=== PATIENT | female | born 1965 | race Caucasian/White ===

== ENCOUNTER 2018-04-01 03:11 | Emergency (ER) | payer OTHER ==
--- OUTSIDE RECORDS SUMMARY | 2018-04-01 03:15 | XMS REPORT | Clinical Summary ---
:1965 Author Organization [facility] Address [address] [place] [address] Phone Care Team Providers Name Role Phone Unavailable Primary Care Provider Unavailable Allergies Active Allergy Reactions Severity Noted Date Comments Prochlorperazine Nausea Only 10/20/2017 Floxacillin Hives 12/31/2015 Prochlorperazine Maleate 10/19/2017 EPS. " Makes my skin crawl." Ofloxacin Nausea And Vomiting, Low 04/24/2014 Rash Sulfa (Sulfonamide Nausea And Vomiting, Low 04/24/2014 "RASH LOOKS LIKE A Antibiotics) Rash, Hives HUGE SPIDER BITE" Current Medications Prescription Sig. Disp. Refills Start End Status Date Date diphenhydrAMINE Take 25 mg by Active (BENADRYL) 50 MG mouth every 4 capsuleIndications: (four) hours as Pruritus of Skin needed for Itching. senna (SENOKOT) 8.6 Take 1 tablet by Active mg tablet mouth daily as needed For the first three days after chemotherapy. ondansetron (ZOFRAN) Take by mouth Active 8 MG every 8 (eight) tabletIndications: hours as needed Cancer for Nausea First Chemotherapy-Induced three days after Nausea and Vomiting, chemotherapy. Prevention of Chemotherapy-Induced Nausea and Vomiting SUMAtriptan 1 tab PO at onset 9 tablet 0 Active (IMITREX) 50 MG of headache; december 01 tablet repeat in 2 hours if needed (maximum daily [id number]). melatonin 3 mg Tab Take 3 mg by Active tablet mouth every night as needed Patient takes a half tablet as needed for sleeping. calcium Take 600 mg by Active carbonate-vitamin D3 mouth daily . 600mg (1,500mg) -1,000 unit Cap docusate sodium Take 100 mg by Active (COLACE) 100 MG mouth 2 (two) capsule times daily as needed for Constipation. omeprazole Take 1 capsule 0 Active (PRILOSEC) 20 MG (20 mg total) by 8 capsule mouth daily. acetaminophen Take 1 tablet 30 tablet 0 Active (TYLENOL) 325 MG (325 mg total) by 8 019 tablet mouth every 4 (four) hours as needed for up to 360 days. guaiFENesin 1,200 mg Take 1,200 mg by 0 Active Ta12 mouth 2 (two) 8 019 times daily as needed. benzocaine-menthol Place 1 lozenge 0 Active 15-3.6 mg Lozg inside cheek 8 every 2 (two) hours as needed. sodium chloride 1 spray by Nasal 15 mL 0 Active 0.65% (OCEAN) 0.65 % route 4 (four) 8 019 nasal spray times daily as needed. carvedilol (COREG) Take 1 tablet 60 tablet 2 Active 12.5 MG tablet (12.5 mg total) 8 018 by mouth 2 (two) times daily for 90 days. dextromethorphan-gua Take 10 mLs by 236 mL 0 Active ifenesin mouth every 4 8 018 (ROBITUSSIN-DM) (four) hours as 10-100 mg/5 mL needed for up to liquid 10 days. folic Take 1 tablet by 30 tablet 2 Active acid-multivitamins mouth daily for 8 018 (NEPHRO-FROILAN) 0.8 mg 90 days. Tab tablet sevelamer (RENVELA) Take 1 tablet 90 tablet 2 Active 800 mg tablet (800 mg total) by 8 018 mouth 3 (three) times daily with meals for 90 days. bumetanide (BUMEX) 1 Take 1 tablet (1 60 tablet 0 Active MG tablet mg total) by 8 018 mouth 2 (two) times daily for 30 days. albuterol HFA Inhale 1 puff by 1 Inhaler 0 Active (VENTOLIN HFA) 90 mouth via inhaler 8 018 mcg/actuation every 6 (six) inhaler hours as needed for Wheezing or Shortness of Breath for up to 30 days. traMADol (ULTRAM) 50 Take 2 tablets 30 tablet 0 Active mg tablet (100 mg total) by 8 018 mouth 2 (two) times daily for 10 days. Max Daily Amount: 200 mg rosuvastatin Take 10 mg by Discontinued (CRESTOR) 10 MG mouth daily. 018 tablet dexlansoprazole 60 Take 60 mg by Discontinued mg capsule mouth daily. 018 escitalopram Take 5 mg by Discontinued (LEXAPRO) 5 MG mouth daily. 018 tablet ascorbic acid Take 500 mg by Discontinued (ASCORBIC ACID WITH mouth daily. 018 ANDREAS HIPS) 500 MG tablet ondansetron Take 8 mg by Discontinued (ZOFRAN-ODT) 4 MG mouth every 8 018 disintegrating (eight) hours as tablet needed for Nausea . omeprazole Take 20 mg by Discontinued (PRILOSEC) 20 MG mouth daily. 018 capsule gabapentin Take 300 mg by Discontinued (NEURONTIN) 300 MG mouth 3 (three) 018 capsule times daily. calcium carbonate Take 1,200 mg by Discontinued (OS-CAROLINE) 600 mg mouth daily. 018 calcium (1,500 mg) Tab SUMAtriptan Take 1 tablet (50 30 tablet 0 (IMITREX) 50 MG mg total) by 8 018 tablet mouth every 2 (two) hours as needed for Headaches or Migraine (maximum 200mg/day) for up to 30 days. amoxicillin-clavulan Take 1 tablet by 20 tablet 0 ate (AUGMENTIN) mouth every 12 8 018 875-125 mg per (twelve) hours tablet for 10 days. mirtazapine Take 15 mg by Discontinued (REMERON) 15 MG mouth nightly. 018 tablet traMADol (ULTRAM) 50 Take 50 mg by Discontinued mg tablet mouth every 6 8 018 (six) hours as needed. senna-docusate Take 1 tablet by Discontinued (SENOKOT S) 8.6-50 mouth 3 (three) 018 mg per tablet times daily as needed. prochlorperazine Take 10 mg by Discontinued (COMPAZINE) 10 MG mouth every 6 8 018 tablet (six) hours as needed for Nausea. fluoride, sodium, Place 1 Discontinued 1.1 % Crea application onto 8 018 teeth twice a week . lidocaine-prilocaine Apply 1 Discontinued (EMLA) 2.5-2.5 % application 8 018 cream topically as needed (for chemotherapy access port) . loperamide (IMODIUM) Take 2 mg by Discontinued 2 mg capsule mouth as needed 018 for Diarrhea. sodium chloride Inject 5 mLs 5 mL 0 Discontinued 0.9%, NS, injection intravenously as 8 018 needed. ondansetron (ZOFRAN) Inject 2 mLs (4 20 mL 0 Discontinued 4 mg/2 mL injection mg total) 8 018 intravenously every 8 (eight) hours as needed. aluminum & magnesium Take 30 mLs by 355 mL 0 Discontinued hydroxide-simethicon mouth every 6 8 018 e (MAALOX PLUS) (six) hours as 400-400-40 mg/5 mL needed for up to suspension 10 days. benzonatate Take 1 capsule 20 capsule 0 Discontinued (TESSALON) 200 MG (200 mg total) by 8 018 capsule mouth 3 (three) times daily as needed for Cough for up to 7 days. codeine-guaifenesin Take 5 mLs by 120 mL 0 Discontinued (GUAIFENESIN AC) mouth every 4 8 018 10-100 mg/5 mL (four) hours as liquid needed for Cough for up to 10 days. Max Daily Amount: 30 mLs zolpidem (AMBIEN) 5 Take 1 tablet (5 30 tablet 0 Discontinued MG tablet mg total) by 8 018 mouth every night as needed for Insomnia for up to 30 days. Max Daily Amount: 5 mg simethicone Take 1 tablet (80 30 tablet 0 Discontinued (MYLICON) 80 MG mg total) by 8 018 chewable tablet mouth every 6 (six) hours as needed for Flatulence for up to 10 days. morphine 2 mg/mL Inject 1 mL (2 mg 0 Discontinued injection total) 8 018 intravenously every 4 (four) hours as needed. Max Daily Amount: 12 mg HYDROcodone-acetamin Take 1-2 tablets 30 tablet 0 Discontinued ophen (NORCO 5-325) by mouth every 4 8 018 5-325 mg per tablet (four) hours as needed for up to 10 days. Max Daily Amount: 12 tablets levoFLOXacin Inject 100 mLs 0 Discontinued (LEVAQUIN) IVPB 500 (500 mg total) 8 018 mg in dextrose 5% intravenously (D5W) 100 mL every other day. sodium bicarbonate Inject 150 mEq 0 Discontinued infusion (custom) intravenously 8 018 continuous. fentaNYL (SUBLIMAZE) Inject 2 mLs (100 2 mL 0 Discontinued 50 mcg/mL injection mcg total) 8 018 intravenously every hour as needed (as). Max Daily Amount: 2,400 mcg predniSONE Take 10 tablets 0 Discontinued (DELTASONE) 20 MG (200 mg total) by 8 018 tablet mouth daily for 10 days. 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 Demand ischemia ([facility]) 03/18/2018 (HFpEF) heart failure with preserved ejection fraction (HCC) 03/18/2018 Thrombocytopenia ([facility]) 03/17/2018 Acute renal failure (ARF) ([facility]) 03/16/2018 Symptomatic anemia 03/16/2018 Metabolic acidosis 03/16/2018 Troponin level elevated 03/16/2018 Community acquired bacterial pneumonia 03/16/2018 Fever 12/11/2017 Breast cancer ([facility]) 12/11/2017 Sepsis due to undetermined organism without resultant organ failure ([facility]) Headache syndrome 10/21/2017 Other neutropenia ([facility]) 10/21/2017 Resolved Problems Problem Noted Date Resolved Date Sepsis ([facility]) 10/20/2017 12/09/2017 Abnormal LFTs (liver function tests) 10/20/2017 12/09/2017 Encounters Date Type Specialty Care Team Description 03/26/2018 Orders Only General Internal Medicine 03/17/2018 - [facility] General Internal William Wren MD Metabolic acidosis 03/31/2018 Encounter Medicine Gian, (Primary Dx);Acute Holgeropher renal failureJoseph MD unspecified acute Titus, Tg renal failure type MD Renata (HCC);Thrombotic Samm, microangiopathy Aliyah Barkley MD (HCC);Other autoimmune Michelle Ram MD hemolytic anemias [place], (HCC);Malignant MD Joe neoplasm of female breast, unspecified estrogen receptor status, unspecified laterality, unspecified site of breast (HCC);REJI (acute kidney injury) (HCC);Symptomatic anemia;Thrombocytopeni a (HCC);(HFpEF) heart failure with preserved ejection fraction (HCC) 03/17/2018 Telephone Critical Care William Wren MD Nupd-sj-Poxu Call Medicine 03/16/2018 - [facility] General Internal Luis Fernando Kumar, Symptomatic anemia 03/17/2018 Encounter Medicine (Primary Andrew Pretty Dx);Generalized MD Fernie weakness;Essential hypertension;Cough;Sandi halley malignant neoplasm of breast with metastasis to other site, unspecified laterality (HCC);Acute renal failure, unspecified acute renal failure type (HCC);Dehydration;Comm unity acquired bacterial pneumonia;Troponin level elevated 12/08/2017 - [facility] General Internal Norberto Ruggiero Fever, unspecified 12/12/2017 Encounter Medicine MD Martin fever cause (Primary Andrew Pretty Dx);LeukopeniaFernie MD unspecified type;Hyponatremia;[place] static breast cancer (HCC);Sepsis due to undetermined organism without resultant organ failure (HCC) 10/20/2017 - [facility] General Internal Wai Bernal, Fever, unknown origin 10/23/2017 Encounter Medicine (Primary Dx);On Andrew Pretty antineoplastic MD Fernie chemotherapy;Other specified hypotension;Generalize d headache;Abnormal LFTs (liver function tests);Sepsis, due to unspecified organism (HCC);Headache syndrome;Other neutropenia (HCC) after 03/31/2017 Family History Medical History Relation Name Comments Cancer Father Diabetes Father Diabetes Mother Relation Name Status Comments Father Mother Social History Tobacco Use Types Packs/Day Years Used Date Former Smoker 0.5 15 Smokeless Tobacco: Never Used Alcohol Use Drinks/Week oz/Week Comments No Sex Assigned at Date Recorded Not on file Last Filed Vital Signs Vital Sign Reading Time Taken Blood Pressure 137/68 03/31/2018 2:27 PM CDT Pulse 83 03/31/2018 2:52 PM CDT Temperature 37.7 C (99.9 F) 03/31/2018 2:27 PM CDT Respiratory Rate 15 03/31/2018 2:52 PM CDT Oxygen Saturation 95% 03/31/2018 2:52 PM CDT Inhaled Oxygen Concentration - - Weight 46 kg (101 lb 6.6 oz) 03/31/2018 9:54 AM CDT Height 160 cm (5' 3") 03/18/2018 12:00 AM CDT Body Mass Index 17.96 03/31/2018 9:54 AM CDT Plan of Treatment Not on file Implants Implanted Type Area Social Media Sr Strategy Manager Device Expiration Model / Identifier Date Serial / Lot Port,Mri Powerport Isp 6fr Chronoflex W/Suture Plugs - [id number] Catheter C R BARD 05/26/2015 [id number] / Implanted: Qty: 1 on 04/28/2014 by Luly Escalante Ports/[employer] PERIPHERAL [id number] / l Line [id number] Procedures Procedure Name Priority Date/Time Associated Diagnosis Comments CRITICAL CARE Routine 03/16/2018 11:25 AM Results for this CDT procedure are in the results section. after 03/31/2017 Results Hemodialysis (03/31/2018 1:55 PM)Only the most recent of5 resultswithin the time period is included. Narrative Aman Daniel, RN 03/31/20181:55 PM Received pt short of breath. Explained hd tx plan today pt agreed verbalized understanding. Started HD tx as ordered. Lab Results Component Value Date WBC 4.1 03/31/2018 HGB 8.0 (L) 03/31/2018 HCT 26.0 (L) 03/31/2018 MCV 102.0 (H) 03/31/2018 PLT 54 (L) 03/31/2018 Chemistry Component Value Date/Time NA 133 (L) 03/31/2018 0427 K 4.6 03/31/2018 0427 CL 99 03/31/2018 0427 CO2 24 03/31/2018 0427 BUN 45 (H) 03/31/2018 0427 CREATININE 4.49 (H) 03/31/2018 042 Component Value Date/Time CALCIUM 8.1 (L) 03/31/2018 042 ALKPHOS 42 03/28/2018 024 AST 35 (H) 03/28/2018 0245 ALT 13 03/28/2018 0245 BILITOT 1.0 03/28/2018 0245 Results for RENATE GOLD ( ) as of 03/31/2018 13:55 Ref. Range 03/20/2018 12:12 Hepatitis B Surface Ag Latest Ref Range: NonreactiveNonreactive To monitor pt. CBC with platelet count + automated diff (03/31/2018 4:27 AM)Only the most recent of19 resultswithin the time period is included. Component Value Ref Range WBC 4.1 3.5 - 10.5 K/L RBC 2.55 (L) 3.93 - 5.22 M/L Hemoglobin 8.0 (L) 11.2 - 15.7 GM/DL Hematocrit 26.0 (L) 34.1 - 44.9 % MCV 102.0 (H) 79.4 - 94.8 fL MCH 31.4 25.6 - 32.2 pg MCHC 30.8 (L) 32.2 - 35.5 GM/DL RDW 18.9 (H) 11.7 - 14.4 % Platelets 54 (L) 150 - 450 K/CU MM MPV 12.9 (H) 9.4 - 12.3 fL nRBC 0 0 - 0 /100 WBC % Neutros 84 % % Lymphs 8 % % Monos 7 % % Eos 1 % % Baso 0 % # Neutros 3.45 1.56 - 6.13 K/L # Lymphs 0.33 (L) 1.18 - 3.74 K/L # Monos 0.28 0.24 - 0.36 K/L # Eos 0.03 (L) 0.04 - 0.36 K/L # Baso 0.01 0.01 - 0.08 K/L Immature Granulocytes-Relative 1 0 - 1 % Specimen Performing Laboratory Blood [facility] [address] [address] CBC with platelet count + automated diff (03/31/2018 4:27 AM)Only the most recent of19 resultswithin the time period is included. Specimen Performing Laboratory Blood Narrative The following orders were created for panel order CBC with platelet count + automated diff. Procedure Abnormality Status --------- ------ CBC with platelet count ...[[id number]]AbnormalFinal result Please view results for these tests on the individual orders. Magnesium (03/31/2018 4:27 AM)Only the most recent of12 resultswithin the time period is included. Component Value Ref Range Magnesium 1.9 1.6 - 2.6 mg/dL Specimen Performing Laboratory Blood [address] [address] Basic Metabolic Panel (03/31/2018 4:27 AM)Only the most recent of31 resultswithin the time period is included. Component Value Ref Range Sodium 133 (L) 136 - 145 meq/L Potassium 4.6 3.5 - 5.1 meq/L Chloride 99 98 - 107 meq/L CO2 24 22 - 29 meq/L BUN 45 (H) 7 - 21 mg/dL Creatinine 4.49 (H) 0.57 - 1.25 mg/dL Glucose 95 70 - 105 mg/dL Calcium 8.1 (L) 8.4 - 10.2 mg/dL EGFR 10Comment: ESTIMATED GFR IS NOT ACCURATE mL/min/1.73 sq m CREATININE CLEARANCE IN PREDICTING GLOMERULAR FILTRATION RATE. ESTIMATED GFR IS NOT APPLICABLE FOR DIALYSIS PATIENTS. Specimen Performing Laboratory Blood [address] [address] POC-Glucose meter (03/30/2018 6:39 PM)Only the most recent of4 resultswithin the time period is included. Component Value Ref Range POC-Glucose Meter 121 (H)Comment: TESTED AT [address] 70 - 110 mg/[place] [address] Specimen Performing Laboratory Blood [address] [address] PT/aPTT (03/30/2018 4:37 AM)Only the most recent of4 resultswithin the time period is included. Component Value Ref Range Protime 16.7 (H) 11.7 - 14.7 seconds INR 1.4 <=5.9 PTT 39.8 (H) 22.5 - 36.0 seconds Specimen Performing Laboratory Blood [facility] [address] [address] Narrative RECOMMENDED COUMADIN/WARFARIN INR THERAPY RANGES STANDARD DOSE: 2.0 - 3.0 Includes: PROPHYLAXIS for venous thrombosis, systemic embolization; TREATMENT for venous thrombosis and/or pulmonary embolus. HIGH RISK: Target INR is 2.5-3.5 for patients with mechanical heart valves. TRANSFUSION SERVICE REPORT - SCAN (03/29/2018 6:00 PM)Only the most recent of9 resultswithin the time period is included.Prepare Leuko-Red RBC (03/28/2018 11: 54 PM)Only the most recent of3 resultswithin the time period is included. Component Value Ref Range CROSSMATCH COMPATIBLE Unit ABO A Pos UNIT NUMBER [id number] Status TRANSFUSED Blood Bank Product RED BLOOD CELLS PRODUCT CODE [id number] Specimen Performing Laboratory Other SAFETRACE TX XR chest 1 view portable / bedside (03/28/2018 9:40 PM)Only the most recent of4 resultswithin the time period is included. Specimen Performing Laboratory GE RIS Narrative FINAL REPORT History: Shortness of breath. Comparison: 03/21/2018 Findings: A single view of the chest is submitted. There is stable prominence of the cardiac silhouette, and appearance likely exaggerated by portable technique. Central vascular congestion and bilateral interstitial and airspace opacities are centered on the perihilar lungs and suggest pulmonary edema. Small bilateral pleural effusions are present. Retrocardiac opacities may reflect a combination of atelectasis and edema but pneumonitis should be excluded clinically. There is no pneumothorax or acute bony abnormality. A right IJ CVC and left IJ chest port remain in place. Surgical clips overlie the right chest. Signed: Lorne Monge MD Report Verified Date/Time:03/28/2018 22:19:58 Reading Location: [address] Reading Room Procedure Note Interface, External Ris In - 03/28/2018 10:22 PM CDT FINAL REPORT History: Shortness of breath. Comparison: 03/21/2018 Findings: A single view of the chest is submitted. There is stable prominence of the cardiac silhouette, and appearance likely exaggerated by portable technique. Central vascular congestion and bilateral interstitial and airspace opacities are centered on the perihilar lungs and suggest pulmonary edema. Small bilateral pleural effusions are present. Retrocardiac opacities may reflect a combination of atelectasis and edema but pneumonitis should be excluded clinically. There is no pneumothorax or acute bony abnormality. A right IJ CVC and left IJ chest port remain in place. Surgical clips overlie the right chest. Signed: Lorne Monge MD Report Verified Date/Time: 03/28/2018 22:19:58 Reading Location: [address] Reading Room Lactic acid, venous, whole blood (03/28/2018 2:45 AM)Only the most recent of5 resultswithin the time period is included. Component Value Ref Range Lactate, Venous 1.1 0.5 - 2.2 mmol/L Specimen Performing Laboratory [place] [address] Narrative Effective 11/28/2015: Units/Reference Range Change New: 0.5-2.2 mmol/LPrevious: 5-20 mg/dL Comprehensive metabolic panel (03/28/2018 2:45 AM)Only the most recent of5 resultswithin the time period is included. Component Value Ref Range Protein, Total 5.9 (L) 6.0 - 8.3 gm/dL Albumin 2.5 (L) 3.5 - 5.0 g/dL Alkaline Phosphatase 42 40 - 150 U/L Total Bilirubin 1.0 0.2 - 1.2 mg/dL Sodium 135 (L) 136 - 145 meq/L Potassium 4.1 3.5 - 5.1 meq/L Chloride 102 98 - 107 meq/L CO2 26 22 - 29 meq/L BUN 24 (H) 7 - 21 mg/dL Creatinine 3.02 (H) 0.57 - 1.25 mg/dL Glucose 121 (H) 70 - 105 mg/dL Calcium 8.2 (L) 8.4 - 10.2 mg/dL AST 35 (H) 5 - 34 U/L ALT 13 6 - 55 U/L EGFR 16Comment: ESTIMATED GFR IS NOT ACCURATE mL/min/1.73 sq m CREATININE CLEARANCE IN PREDICTING GLOMERULAR FILTRATION RATE. ESTIMATED GFR IS NOT APPLICABLE FOR DIALYSIS PATIENTS. Specimen Performing Laboratory Blood [address] [address] Transfuse Leuko-Red RBC (03/27/2018 2:48 PM)Only the most recent of7 resultswithin the time period is included.Type and screen, automated (2017 12:03 PM)Only the most recent of3 resultswithin the time period is included. Component Value Ref Range ABO/RH AUTOMATED (BEAKER) A POSITIVE Ab Scrn NEGATIVE Specimen Performing Laboratory Blood [address] [address] XR shoulder complete 2 views min left (03/26/2018 5:10 PM) Specimen Performing Laboratory GE RIS Narrative FINAL REPORT TECHNIQUE: Three views of the left shoulder dated 08/15/2017 HISTORY: FX COMPARISON: None. FINDINGS: No fracture or dislocation. Bones are normal in density. No joint space narrowing. No bone erosion or soft tissue nodule seen. No radiodense foreign body or subcutaneous emphysema. Left-sided MediPort is partially visualized. IMPRESSION: No fracture or dislocation. Signed: Steve Torres MD Report Verified Date/Time:03/26/2018 17:48:06 Reading Location: [facility] Radiology Reading Room Procedure Note Interface, External Ris In - 03/26/2018 5:50 PM CDT FINAL REPORT TECHNIQUE: Three views of the left shoulder dated 08/15/2017 HISTORY: FX COMPARISON: None. FINDINGS: No fracture or dislocation. Bones are normal in density. No joint space narrowing. No bone erosion or soft tissue nodule seen. No radiodense foreign body or subcutaneous emphysema. Left-sided MediPort is partially visualized. IMPRESSION: No fracture or dislocation. Signed: Steve Torres MD Report Verified Date/Time: 03/26/2018 17:48:06 Reading Location: [facility] Radiology Reading Room 12 lead (03/26/2018 8:47 AM)Only the most recent of4 resultswithin the time period is included. Specimen Performing Laboratory [employer] MUSE Narrative Ventricular Rate 89 BPM Atrial Rate 89 BPM P-R Interval 142 ms QRS Duration 64 ms Q-T Interval 384 ms QTC Calculation(Bazett) 467 ms P Otoe 44 degrees R Otoe 17 degrees T Otoe 148 degrees Normal sinus rhythm ST & T wave abnormality, consider anterior ischemia Prolonged QT Abnormal ECG When compared with ECG of 19-MAR-2018 14:10, Nonspecific T wave abnormality, worse in Inferior leads T wave inversion now evident in Anterior leads Confirmed by MD MCCARTY JOSEPH P ([id number]) on 03/27/2018 7:24:27 AM Procedure Note Interface, External Ris In - 03/27/2018 7:24 AM CDT Ventricular Rate 89 BPM Atrial Rate 89 BPM P-R Interval 142 ms QRS Duration 64 ms Q-T Interval 384 ms QTC Calculation(Bazett) 467 ms P Otoe 44 degrees R Otoe 17 degrees T Otoe 148 degrees Normal sinus rhythm ST & T wave abnormality, consider anterior ischemia Prolonged QT Abnormal ECG When compared with ECG of 19-MAR-2018 14:10, Nonspecific T wave abnormality, worse in Inferior leads T wave inversion now evident in Anterior leads Confirmed by MD MCCARTY JOSEPH P ([id number]) on 03/27/2018 7:24:[address] abdomen/pelvis without iv contrast (03/26/2018 12:39 AM) Specimen Performing Laboratory [employer] RIS Narrative FINAL REPORT CT, ABDOMEN \\T\\ PELVIS, WITHOUT IV CONTRAST INDICATION: Anemia, unexplained, ambulatory, asymptomatic COMPARISON: CT abdomen and pelvis, 10/20/2017. TECHNIQUE: Noncontrast abdomen and pelvis CT.Coronal and sagittal reformatted images obtained. DOSE REDUCTION: Dose modulation, iterative reconstruction, and/or weight-based adjustment of the mA/kV was utilized to reduce the radiation dose to as low as reasonably achievable. FINDINGS: Lower thorax: Moderate bilateral pleural effusions with adjacent passive atelectasis of the bilateral lower lobes. Relative hypodensity of blood pool related to the myometrium is consistent with history of anemia. Trace pericardial effusion. Liver: Limited evaluation given lack of intravenous contrast material however no definite parenchymal abnormalities. Gallbladder and biliary tree: Postsurgical changes of cholecystectomy. Pancreas: No acute findings. Spleen: Spleen is enlarged measuring 13 cm in greatest craniocaudal dimension. Adrenal Glands: No acute findings. Kidneys and ureters: Crescentic hyperdense fluid collection surrounding the inferior left renal pole suggestive of perinephric hematoma, post biopsy which extends into the left paracolic gutter. No hydronephrosis or hydroureter. No nephrolithiasis. Bladder and reproductive organs: There is a Cote catheter present within the bladder with gas layering anteriorly. Post surgical changes of a hysterectomy. Stomach and Duodenum: Duodenum is somewhat distended proximally and distal decompression otherwise unremarkable. Is normal. Small and large intestine: Normal calibers. Appendix: Normal. Major vascular structures: Scattered calcifications in the normal caliber abdominal aorta. Peritoneum and retroperitoneum: Small volume simple free fluid layering dependently within the pelvis. Skeleton: Multiple new sclerotic lesions throughout the axial skeleton the largest of which is 8 mm in the T12 anterior vertebral body concerning for a sclerotic metastatic lesion. Additional findings: None. IMPRESSION: Small left perinephric hematoma status post renal biopsy. Multiple new sclerotic lesions throughout the axial skeleton the largest of which is in the T12 anterior vertebral body concerning for sclerotic metastatic lesions. Lateral bilateral pleural effusions with adjacent passive atelectasis of the bilateral lower lobes. Unchanged splenomegaly. Signed: Kellee Islas MD Report Verified Date/Time:03/26/2018 02:57:14 Reading Location: [address] Transitional Reading Room Procedure Note Interface, External Ris In - 03/26/2018 2:59 AM CDT FINAL REPORT CT, ABDOMEN \\T\\ PELVIS, WITHOUT IV CONTRAST INDICATION: Anemia, unexplained, ambulatory, asymptomatic COMPARISON: CT abdomen and pelvis, 10/20/2017. TECHNIQUE: Noncontrast abdomen and pelvis CT. Coronal and sagittal reformatted images obtained. DOSE REDUCTION: Dose modulation, iterative reconstruction, and/or weight-based adjustment of the mA/kV was utilized to reduce the radiation dose to as low as reasonably achievable. FINDINGS: Lower thorax: Moderate bilateral pleural effusions with adjacent passive atelectasis of the bilateral lower lobes. Relative hypodensity of blood pool related to the myometrium is consistent with history of anemia. Trace pericardial effusion. Liver: Limited evaluation given lack of intravenous contrast material however no definite parenchymal abnormalities. Gallbladder and biliary tree: Postsurgical changes of cholecystectomy. Pancreas: No acute findings. Spleen: Spleen is enlarged measuring 13 cm in greatest craniocaudal dimension. Adrenal Glands: No acute findings. Kidneys and ureters: Crescentic hyperdense fluid collection surrounding the inferior left renal pole suggestive of perinephric hematoma, post biopsy which extends into the left paracolic gutter. No hydronephrosis or hydroureter. No nephrolithiasis. Bladder and reproductive organs: There is a Cote catheter present within the bladder with gas layering anteriorly. Post surgical changes of a hysterectomy. Stomach and Duodenum: Duodenum is somewhat distended proximally and distal decompression otherwise unremarkable. Is normal. Small and large intestine: Normal calibers. Appendix: Normal. Major vascular structures: Scattered calcifications in the normal caliber abdominal aorta. Peritoneum and retroperitoneum: Small volume simple free fluid layering dependently within the pelvis. Skeleton: Multiple new sclerotic lesions throughout the axial skeleton the largest of which is 8 mm in the T12 anterior vertebral body concerning for a sclerotic metastatic lesion. Additional findings: None. IMPRESSION: Small left perinephric hematoma status post renal biopsy. Multiple new sclerotic lesions throughout the axial skeleton the largest of which is in the T12 anterior vertebral body concerning for sclerotic metastatic lesions. Lateral bilateral pleural effusions with adjacent passive atelectasis of the bilateral lower lobes. Unchanged splenomegaly. Signed: Kellee Islas MD Report Verified Date/Time: 03/26/2018 02:57:14 Reading Location: [address] Transitional Reading Room Peripheral Blood Smear - Hold only (03/25/2018 2:03 PM)Only the most recent of3 resultswithin the time period is included. Component Value Ref Range Peripheral Smear Save saved Specimen Performing Laboratory [address] [address] Lactate dehydrogenase (LDH) (03/25/2018 2:03 PM)Only the most recent of4 resultswithin the time period is included. Component Value Ref Range LDH 722 (H) 125 - 220 U/L Specimen Performing Laboratory Blood [address] [address] US renal biopsy (03/24/2018 1:00 PM) Specimen Performing Laboratory GE RIS Narrative FINAL REPORT HISTORY: Acute kidney injury of unknown etiology Sedation: Moderate sedation was administered. 0.5 mg of Versed and 25 mcg of fentanyl IV was used for moderate sedation monitored under my direction. Total intra-service time of sedation [id number]. The patient's vital signs were monitored throughout the procedure and recorded in the patient's medical record by the nurse. DISCUSSION: The procedure including the risks and complications were explained to the patient and the patient consented. The left kidney was localized under ultrasound. The left flank/back was prepped and draped in the usual sterile fashion and 1% lidocaine was applied to the skin and deep soft tissues. Under ultrasound guidance, a total of 3 biopsy samples were obtained utilizing an 18 gauge needle. Pathology was present during the procedure and specimens were analyzed for adequacy. Specimens were placed in formalin and were sent to pathology for analysis. Postprocedure sonogram did not demonstrate any complications. IMPRESSION: Successful ultrasound guided core random biopsy of the [place] left kidney. Signed: Eduin Thompson MD Report Verified Date/Time:03/24/2018 12:59:37 Reading Location: [address] Ultrasound Reading Room Procedure Note Interface, External Ris In - 03/24/2018 1:01 PM CDT FINAL REPORT HISTORY: Acute kidney injury of unknown etiology Sedation: Moderate sedation was administered. 0.5 mg of Versed and 25 mcg of fentanyl IV was used for moderate sedation monitored under my direction. Total intra-service time of sedation was 20 minutes. The patient's vital signs were monitored throughout the procedure and recorded in the patient's medical record by the nurse. DISCUSSION: The procedure including the risks and complications were explained to the patient and the patient consented. The left kidney was localized under ultrasound. The left flank/back was prepped and draped in the usual sterile fashion and 1% lidocaine was applied to the skin and deep soft tissues. Under ultrasound guidance, a total of 3 biopsy samples were obtained utilizing an 18 gauge needle. Pathology was present during the procedure and specimens were analyzed for adequacy. Specimens were placed in formalin and were sent to pathology for analysis. Postprocedure sonogram did not demonstrate any complications. IMPRESSION: Successful ultrasound guided core random biopsy of the [place] left kidney. Signed: Eduin Thompson MD Report Verified Date/Time: 03/24/2018 12:59:37 Reading Location: [facility] [id number] Ultrasound Reading Room Tissue Exam (03/24/2018 12:53 PM) Component Value Ref Range Case Report Surgical Pathology Report Case: [id number] Authorizing Provider:Michelle Ram MD Collected: 03/24/2018 1253 Ordering Location: [address] Received: 03/24/2018 1254 Service Pathologist: Dennsie Jo MD Specimen:Kidney, Left, Left kidney needle biopsy DIAGNOSIS KIDNEY, LEFT, NEEDLE BIOPSIES - ACUTE THROMBOTIC MICROANGIOPATHY - MODERATE INTERSTITIAL FIBROSIS AND TUBULAR ATROPHY (~40%) Signing Pathologist Direct Phone Line: [phone] COMMENT 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 One study (see reference) have reported arteriolar deposition of C4d to suggest a deficit in complement regulation. Clinical correlation is recommended. Reference: Earline ROMAN, et al. Complement Factor C4d Is a Common Denominator in Thrombotic Microangiopathy. J Am Soc Nephrol. 2015 Sep;26(9):2239-47. The results were communicated to Dr. Vital on 03/25/2018 at 10.15 am. CPT Code(s) 84529, 40013 X3, 18454, 48064 x8, 76203 CLINICAL HISTORY Left renal failure evaluation SPECIMEN SOURCE [place] left kidney biopsy GROSS DESCRIPTION The specimen is received in three parts all labeled with the patient's information. Received in formalin are three bernal-red core biopsies ranging in length from 0.3 to 1.1 cm, submitted entirely A1. Received fresh is a 1 cm bernal-red core, submitted for frozen section for immunofluorescen ce staining and received in electron microscopy consists of a 0.2 cm core submitted for electron microscopy. CG/pl MICROSCOPIC DESCRIPTION LIGHT MICROSCOPY Sections show three cores of renal parenchymal tissue composed of cortical tissue (~80%) and medullary tissue (~20%). Glomeruli: Approximately 56 glomeruli are examined, of which 5 are globally sclerosed. The glomeruli show diffuse fibrillary expansion of mesangium with wrinkled glomerular basement membranes. Mild reac tive neutrophilic infiltration is noted. The visceral epithelial cells are prominent. There is focal glomerular congestion and thrombi.No segmental necrosis, endocapillary proliferation, or crescents are noted. Tubules and interstitium: There is moderate interstitial fibrosis with tubular atrophy, involving about 40% of cortical tissue. Some tubular profiles are ectatic and show epithelial injury with reactive changes. Few tubular profiles show red blood cell casts. Vessels: Small arteries and arterioles show show fibrin thrombi and fragmented red blood cells. Branches of interlobular arteries show mild intimal sclerosis. No endothelialitis, arteritis or transmural vasculitis is seen. IMMUNOFLUORESCENCE: Direct Immunofluorescence: Histology: H&E-stained sections show 10 non-obsolescent glomeruli. Immunofluorescence findings: IgA: Negative in glomeruli, tubular casts are positive IgG: Negative in glomeruli. There is diffuse weak positive staining of the tubular epithelial cell nuclei IgM: Diffuse global, granular, peripheral capillary loop and mesangial staining 3+, weak staining in tubular basement membranes and peritubular capillaries C3: Diffuse and global, granular, peripheral capillary loop and mesangial staining, 1+. negative in tubular basement membranes. C1q:Focal weak granular, mesangial staining, negative in tubular basement membranes. Fibrinogen: Positive in thrombi Bernard:Focal segmental to global, granular, peripheral capillary loop and mesangial staining 2+ to 3+, diffuse weak positive staining of the tubular epithelial cell nuclei. Lambda: Diffuse and global, granular, peripheral capillary loop and mesangial staining 2+ to 3+, diffuse weak positive staining of the tubular epithelial cell nuclei. C4d. Diffuse positive staining in peripheral glomerular capillary loops and arterioles along with small branches of interlobular arteries. The peritubular capillaries are negative. Thick section histology: Toluidine blue-stained section reveals two open glomeruli, both glomeruli are examined ultrastructurally. Ultrastructure:Examination of the glomerular ultrastructure reveals that the glomerular basement membrane shows focal wrinkling and presence of double contours with focal subendothelial rarefaction. There is mesangial interpositioning with laying down of a new basement membrane. Endothelial cell swelling is noted. The mesangial matrix is not expanded. Subendothelial, subepithelial, and mesangial/p aramesangialelectron-dense, immune complex-type deposits are not present. There is hypertrophy of visceral epithelial cells with extensive effacement of foot processes. Specimen Performing Laboratory Tissue - Kidney, [address] [address] Phosphorus (03/22/2018 11:26 PM)Only the most recent of2 resultswithin the time period is included. Component Value Ref Range Phosphorus 6.1 (H) 2.3 - 4.7 mg/dL Specimen Performing Laboratory Blood - Central Venous Line [address] [address] Hepatic function panel (03/22/2018 4:51 PM)Only the most recent of3 resultswithin the time period is included. Component Value Ref Range Protein, Total 6.7 6.0 - 8.3 gm/dL Albumin 3.1 (L) 3.5 - 5.0 g/dL Total Bilirubin 1.6 (H) 0.2 - 1.2 mg/dL Bilirubin, Direct 0.7 (H) 0.1 - 0.5 mg/dL Alkaline Phosphatase 63 40 - 150 U/L AST 48 (H) 5 - 34 U/L ALT 24 6 - 55 U/L Specimen Performing Laboratory Blood - Central Venous Line [address] [address] Prothrombin time/INR (03/22/2018 6:28 AM)Only the most recent of3 resultswithin the time period is included. Component Value Ref Range Protime 16.2 (H) 11.7 - 14.7 seconds INR 1.3 <=5.9 Specimen Performing Laboratory Blood - Arm, [address] [address] Narrative RECOMMENDED COUMADIN/WARFARIN INR THERAPY RANGES STANDARD DOSE: 2.0 - 3.0 Includes: PROPHYLAXIS for venous thrombosis, systemic embolization; TREATMENT for venous thrombosis and/or pulmonary embolus. HIGH RISK: Target INR is 2.5-3.5 for patients with mechanical heart valves. Reticulocyte count (03/22/2018 6:28 AM)Only the most recent of2 resultswithin the time period is included. Component Value Ref Range % Retic 13.4 (H) 0.5 - 1.7 % Specimen Performing Laboratory Blood - Arm, [address] [address] Haptoglobin (03/22/2018 6:28 AM)Only the most recent of3 resultswithin the time period is included. Component Value Ref Range Haptoglobin <8 (L) 14 - 258 mg/dL Specimen Performing Laboratory Blood - Arm, Left [facility] [address] CBC (Hemogram only) (03/21/2018 3:21 AM)Only the most recent of5 resultswithin the time period is included. Component Value Ref Range WBC 7.6 3.5 - 10.5 K/L RBC 3.13 (L) 3.93 - 5.22 M/L Hemoglobin 10.1 (L) 11.2 - 15.7 GM/DL Hematocrit 32.1 (L) 34.1 - 44.9 % MCV 102.6 (H) 79.4 - 94.8 fL MCH 32.3 (H) 25.6 - 32.2 pg MCHC 31.5 (L) 32.2 - 35.5 GM/DL RDW 24.0 (H) 11.7 - 14.4 % Platelets 68 (L) 150 - 450 K/CU MM MPV 14.4 (H) 9.4 - 12.3 fL nRBC 1 (H) 0 - 0 /100 WBC Specimen Performing Laboratory Blood - Arm, Right [address] [address] Hepatitis B Panel (03/20/2018 12:12 PM) Component Value Ref Range Hep B Core Total Ab Nonreactive Nonreactive Hep B S Ab 133.0 (H) <8.0 mIU/mL Comment: Testing performed at [facility]. See attach result for further interpretation. hepatitis B Surface Ag Nonreactive Nonreactive Specimen Performing Laboratory Blood - Central Venous Line [address] [address] Hepatitis C antibody (03/20/2018 12:12 PM) Component Value Ref Range Hepatitis C Ab Nonreactive Nonreactive Specimen Performing Laboratory Blood - Central Venous Line [address] [address] TSH/Free T4 If Indicated (03/20/2018 5:39 AM) Component Value Ref Range TSH 7.12 (H) 0.35 - 4.94 uIU/mL Specimen Performing Laboratory Blood [address] [address] T4, free (03/20/2018 5:39 AM) Component Value Ref Range Free T4 0.67 (L) 0.70 - 1.48 ng/dL Specimen Performing Laboratory Blood [address] [address] Prepare plasma (03/19/2018 11:54 PM)Only the most recent of2 resultswithin the time period is included. Component Value Ref Range Unit ABO A UNIT NUMBER [id number] Status TRANSFUSED Blood Bank Product FFP PRODUCT CODE [id number] Unit ABO A UNIT NUMBER [id number] Status TRANSFUSED Blood Bank Product FFP PRODUCT CODE [id number] Specimen Performing Laboratory Blood SAFETRACE TX PTH, intact (03/19/2018 5:29 AM) Component Value Ref Range PTH 690.0 (H) 8.5 - 72.5 pg/mL Specimen Performing Laboratory Blood - Central Venous Line [address] [address] Vancomycin level, random (03/19/2018 5:29 AM)Only the most recent of2 resultswithin the time period is included. Component Value Ref Range Vancomycin Rm 14.4 ug/mL Specimen Performing Laboratory Blood - Central Venous Line [address] [address] Narrative Reference Range: No Normals Direct AHG (BASIL)/Direct Rose (03/18/2018 3:23 PM) Component Value Ref Range Direct AHG-IGG NEGATIVE Direct AHG-C3B, C3D NEGATVIE Specimen Performing Laboratory Blood [address] [address] RHYTHM STRIP - SCAN (03/18/2018 2:53 PM)Only the most recent of2 resultswithin the time period is included.EKG-SCANNED (03/18/2018 2:53 PM)Calcium, Ionized ( 03/18/2018 9:15 AM)Only the most recent of3 resultswithin the time period is included. Component Value Ref Range Calcium, Ion 0.94 (L) 1.12 - 1.27 mmol/L pH, Blood 7.48 Specimen Performing Laboratory Blood - Central Venous Line [address] [address] aPTT (03/18/2018 8:37 AM)Only the most recent of2 resultswithin the time period is included. Component Value Ref Range PTT 38.9 (H) 22.5 - 36.0 seconds Specimen Performing Laboratory Blood - Central Venous Line [address] [address] D-dimer (03/18/2018 8:37 AM)Only the most recent of2 resultswithin the time period is included. Component Value Ref Range D-Dimer, Quant 3.18 (H) <0.50 MG/L FEU Specimen Performing Laboratory Blood [place] [address] Narrative Intended Use: The D-Dimer Assay can be used to aid in the diagnosis of Deep Vein Thrombosis (DVT) and Pulmonary Embolism Disease (PED). In patients with low pre-test probability, various studies concerning STA Liatest D-dimer test have reported that with a cutoff value of 0.50 MG/L FEU, the Negative Predictive Value (NPV) regarding the exclusion of thrombosis is within 95-100% range. Osmolality, serum (03/18/2018 5:01 AM) Component Value Ref Range Osmolality Serum 303 (H) 275 - 295 mOsm/kg Specimen [place] [address] Transfusion Reaction Investigation (03/18/2018 4:06 AM) Component Value Ref Range TRANSFUSION RX INVESTIGATION(ADDY) SEE COMMENTComment: Anaphylactoid reaction vs hypocalcemic response on TPE. Patient promptly recovered post fluid bolus. No special precautions required for future transfusions,Electronic Signature: Yuval Carmichael M.D. Specimen Performing Laboratory Blood [address] [address] Transfuse plasma (03/18/2018 3:56 AM)Urea Nitrogen, random urine (03/18/2018 2 :20 AM) Component Value Ref Range Urea Nitrogen, Ur 298 mg/dL Specimen Performing Laboratory Urine - Urine, [address] [address] Narrative Reference Range: No Normals Sodium, random urine (03/18/2018 2:20 AM) Component Value Ref Range Sodium Urine 57 meq/L Specimen Performing Laboratory Urine - Urine, [address] [address] Narrative Reference Range: No Normals Potassium, random urine (03/18/2018 2:20 AM) Component Value Ref Range Potassium Urine 41.5 meq/L Specimen Performing Laboratory Urine - Urine, [address] [address] Narrative Reference Range: No Normals Osmolality, urine (03/18/2018 2:20 AM) Component Value Ref Range Osmolality, Ur 316 40 - 1400 mOsm/kg Specimen Performing Laboratory Urine - Urine, [address] [address] Creatinine, random urine (03/18/2018 2:20 AM)Only the most recent of2 resultswithin the time period is included. Component Value Ref Range Creatinine, Ur 36.3 mg/dL Specimen Performing Laboratory Urine - Urine, [address] [address] Narrative Reference Range: No Normals Procalcitonin (03/18/2018 1:27 AM) Component Value Ref Range Procalcitonin 8.65 (H) <0.05 ng/mL Specimen Performing Laboratory Blood [address] [address] Narrative SEPSIS RISK (ng/mL) Low:0.05-0.50 Intermediate: 0.51-2.00 High: >=2.01 Troponin I (03/18/2018 1:27 AM)Only the most recent of4 resultswithin the time period is included. Component Value Ref Range Troponin I 0.77 (HH) 0.00 - 0.03 ng/mL Specimen Performing Laboratory Blood [address] [address] Narrative Troponin I (TnI) levels must be interpreted in the context of the presenting symptoms and the clinical findings. Elevated TnI levels indicate myocardial damage, but are not specific for ischemic heart disease. Elevated TnI levels are seen in patients with other cardiac conditions (including myocarditis and congestive heart failure), and slight TnI elevations occur in patients with other conditions, including sepsis, renal failure, acidosis, acute neurological disease, and persistent tachyarrhythmia. ABORH, manual (03/18/2018 12:59 AM) Component Value Ref Range ABO Grouping A Rh Factor POS Specimen Performing Laboratory [address] [address] Fibrinogen (03/18/2018 12:59 AM) Component Value Ref Range Fibrinogen 466 (H) 225 - 434 mg/dl Specimen Performing Laboratory Blood [address] [address] Biopsy Bone Marrow (03/17/2018 3:01 PM) Component Value Ref Range Anatomic Case# [id number] Ordering Physician jordan Sultana m.d. Performing Physician Jordan Sultana m.d. Clot Rec'd? Yes Biopsy Rec'd? Yes Rec'd for Culture? No Rec'd for Flow? Yes Rec'd for Cytogenetics? Yes Rec'd for Molecular Genetics? No Specimen Performing Laboratory Bone Marrow - Iliac Crest, Right [facility] [address] [place] [address] Flow Cytometry Requisition (03/17/2018 3:00 PM) Component Value Ref Range Flow Cytometry See Separate Report Case # [id number] Specimen Performing Laboratory Bone Marrow [address] [address] Flow Cytometry (03/17/2018 3:00 PM) Component Value Ref Range Case Report Flow Cytometry Report Case: [id number] Authorizing Provider:Jordan Sultana MD Collected: 03/17/2018 1500 Ordering Location: [address] Med/SurgReceived: 03/17/2018 1714 Pathologist: Doug Lee MD Specimen:Other Flow Interpretation BONE MARROW ASPIRATE, FLOW CYTOMETRY: -NO ABERRANT T LYMPHOCYTE POPULATION -NO MONOTYPIC B LYMPHOCYTE POPULATION -NO INCREASE IN CD34 POSITIVE BLASTS -SEE COMMENT Flow Interpretation Comment Flow cytometric evaluation of the bone marrow aspirate was essentially negative. There was no evidence of an aberrant B or T lymphocyte process. There was no increase in blasts. Please correlate with morphologic findings in the bone marrow biopsy report([id number]). CPT Code(s) 31106 CLINICAL HISTORY 53 wf with h/o right breast ca s/p surgery and chemo xrt in 2013 found to have recurrence with extensive metastases, started on carboplatin and gemcitabine in October 2017, transferred from [facility] for management of MAHA with REJI. SPECIMEN SOURCE BONE MARROW ASPIRATE CELLULAR BIOMARKER ANALYSIS CD8, surface-Bernard, CD56, surface-Lambda, CD5, CD19, CD10, CD3, CD20, CD4, CD45, CD14, CD13, CD33, CD117, CD34, cKappa, cLambda , CD38, CD138 IMMUNOPHENOTYPIC FINDINGS Specimen Viability: 92.4%Number of Events Acquired: [id number] The following populations are identified: Blasts: the dim CD45+ CD34+ blasts comprise 0.5% of total cells. The majority of these cells express CD13 and CD33 (myeloblasts). Lymphocytes: Bright CD45+ lymphocytes comprise 4.0% of total cells. T cells show a CD4:CD8 ratio of 0.8 and normal expression of the brown T cell antigens CD3 and CD5.B cells are polytypic with a giselle a:lambda ratio of 1.1 and include few CD10+ B cells with the immunophenotypic features of hematogones. Myeloid/monocytic populations: As identified by CD45 and light scatter characteristics, granulocytes comprise the majority(64.2%) of cells analyzed, and monocytes comprise 2.2% of total cells. Plasma cells: 0.3% CD138 positive plasma cells are noted with polytypic cytoplasmic light chain expression. The remaining events analyzed represent nonviable cells, non-hematolymphoid cells, and debris. DISCLAIMER These tests were developed and their performance characteristics determined by [facility] They have not been cleared or approved by the U.S. Food and Drug Administration. The FDA has determined that such clearance or approval is not necessary. It should not be regarded as investigational or for research. This laboratory is certified under the Clinical Laboratory Improvement Amendments of 1988 ("CLIA") as qualified to perform high-complexity clinical testing. Specimen [place] [address] Bone Marrow Exam (03/17/2018 2:57 PM) Component Value Ref Range Case Report Bone Marrow Pathology Report Case: [id number] Authorizing Provider:Jordan Sultana MD Collected: 03/17/2018 1457 Ordering Location: [address] Med/SurgReceived: 03/17/2018 1457 Pathologist: Doug Lee MD Specimens: A) - Iliac, Right B) - Iliac, Right C) - Iliac, Right ADDENDUM This addendum is created to report the [facility] results for the Oncologic chromosomal study: There is no change to the original diagnosis. Oncologic Chromosomal Study is Normal. Please see attached scanned [facility] reports for details. Javier Lee MD DIAGNOSIS BONE MARROW ASPIRATE, CLOT, AND DECALCIFIED BIOPSY: -VARIABLY CELLULAR (10-40%) MARROW WITH TRILINEAGE HEMATOPOIESIS -FOCAL STROMAL INJURY AND INCREASED ACTIVATED MACROPHAGES -ERYTHROID AND MEGAKARYOCYTIC HYPERPLASIA WITH VARIABLE DYSPOIESIS -NO EVIDENCE OF METASTATIC DISEASE -NO EVIDENCE OF LYMPHOMA OR LEUKEMIA -INCREASED IRON STORES WITH NO RINGED SIDEROBLASTS -ONCOLOGIC CHROMOSOMAL ANALYSIS PENDING -SEE COMMENT PERIPHERAL BLOOD: -HYPOCHROMIC, NORMOCYTIC ANEMIA -THROMBOCYTOPENIA Signing Pathologist Direct Phone Line: [phone] COMMENT Bone marrow biopsy evaluation was performed on a 53 year old woman with history of metastatic breast carcinoma and recent chemotherapy.Bone marrow evaluation demonstrates a variablycellular bone mar row with trilineage hematopoiesis and focal stromal injury.The aspirate differential demonstrates a normal M:E ratio(1.5).Dyspoiesis was noted in the erythroid and megakaryocytic series.Incr eased activated macrophages are present.A mild plasmacytosis is (4.5%) is noted, however morphology and immunohistochemical evaluation demonstrates a polyclonal plasma cell population with normal pe rivascular pattern.There in no evidence of lymphoma, leukemia or metastatic disease.The corresponding flow cytometry([id number]) of the aspirate did not demonstrate evidence of an aberrant B or T l ymphocyte process and no increase in blasts.Overall, the stromal changes , dyspoiesis and activated macrophages can be seen with chemotherapy effect. No evidence of a neoplastic process is identified. Clinical correlation is recommend. Oncologic chromosomal studies are pending and the results will be submitted as an addendum when available. CPT Code(s) 09903; 57553; 52925 x 2; 38592; 30977 11527 x 1; 75160 x11 CLINICAL HISTORY Primary malignant neoplasm of breast with metastasis to other site and acute renal failure SPECIMEN SOURCE Right iliac crest GROSS DESCRIPTION Specimen A consists of 3 bone marrow aspirates 13 aspirate slides, three bone marrow touch imprints and four peripheral blood smears. Specimen B is received in fixative and designated as "iliac right", is a red- brown blood clot (4.0 x 1.0 x 1.0 cm). The specimen is entirely submitted into B1. Specimen C is received in fixative and designated as "iliac right", and is a white-bernal bone core biopsy (2.0 cm in length and 0.2 cm in diameter). The specimen is entirely submitted into C1. MG/ew MICROSCOPIC DESCRIPTION BONE MARROW ASPIRATE: QUALITY: Aspirate-Adequate Touch imprint- Adequate MARROW DIFFERENTIAL COUNT: Number of cells counted: 200 2.00% Blasts 4.50% Promyelocytes 15.0% Myelocytes/Metamyelocytes 22.5% Bands/Segmented granulocytes 1.00% Eosinophils and precursors 0.00% Basophils and precursors 32.0% Erythroid precursors 13.0% Lymphocytes 5.50% Monocytes 4.50% Plasma cells Myeloid: Erythroid Ratio:1.5; Normal Blasts:Not Increased Erythropoiesis: Normal and complete maturation; mild dyspoiesis Myelopoiesis: Normal and complete maturation Other: Mildly increased plasma cells. Few activaged macrophages. Megakaryocytes:Present Stainable iron is increased based on an iron stain performed on the aspirate smear.There are no ringed sideroblasts identified. BONE MARROW BIOPSY: Biopsy- Adequate Clot- Adequate Variable Cellular ( 10-40 %) Cellular composition similar to aspirate smears and touch imprints. Normal proportions of myeloid and erythroid precursors present with complete maturation. Megakaryocytes areadequate in number.Variable dyspoiesis is identified with some havinghypolobated ,hyperchromatic or "balloon" like nuclei.Moderate dyspoiesis. Other:No mass lesions Bony trabeculae:unremarkable Stainable iron is increased based on an iron stain performed on the clot section. Pancytokeratin:Negative CK7:Negative CAM 5.2:Negative CD3: Highlights few dispersed T lymphocytes CD20:Highlight rare dispersed B lymphocytes.No significant clusters. CD34:Highlights rare dispersed blasts.No sheets or significant clusters. CD61:Highlights megakaryocytes which appear mildly increased CD117:Demonstrates slightly more progenitor cells then CD34 due to staining of some erythroid precursors. CD138:Highlights few plasma cells Bernard:Highlights polyclonal plasma cells Lambda:Highlights polyclonal plasma cells E-Cadherin:Highlights erythroid precursors which appear increased and primarily in clusters. PERIPHERAL BLOOD: RBCs:Hypochromic, normocytic.minimal polychromasia WBCs: Unremarkable Platelets: Normal appearance, Decreased, Occasional enlarged forms and Occasional giant forms SPECIAL STUDIES The following special studies were performed on this case and the interpretation is incorporated in the diagnostic report above: The immunohistochemistry test was developed and its performance characteristics determined by [facility], Pathology Laboratory. It has not been cleared or approved by the U.S. Food and Drug Administration. The FDA has determined that such clearance or approval is not necessary. The test is used for clinical purposes. It should not be regarded as investigational or for research. This laboratory is certified under the Clinical Laboratory Improvement Amendments of 1988 (CLIA-88) as qualified to perform high complexity clinical laboratory testing. The following immunohistochemical stains were evaluated on the marrow biopsy and reported in the microscopic section: Pancytokeratin, CK7, CAM 5.2, CD3, CD20, CD34, CD61, CD117, CD138, Bernard, Lambda, E-Cadherin. Specimen Performing Laboratory Bone Marrow - Iliac, Right [facility] [address] [place] [address] CT Biopsy/Aspiration/Injection (03/17/2018 2:41 PM) Specimen Performing Laboratory [facility] Narrative FINAL REPORT PROCEDURE: CT-guided bone marrow biopsy DOSE REDUCTION: The examination was performed according to departmental dose-optimization program which includes automated exposure control, adjustment of the mA and/or kV according to patient size and/or use of iterative reconstruction technique. Clinical History: Pancytopenia Director Paid Media: Marce Conscious sedation: Versed 1 mg, fentanyl 50 mcg, (Administered after informed consent was obtained) Vital signs were monitored throughout the procedure by a nurse, and remained stable. Physician patient face to face intra-service time was 30 minutes. Local anesthesia: 2% lidocaine TECHNIQUE: Informed written consent for the procedure was obtained. With the patient prone the area was scanned.The skin over the right iliac crest was prepped and draped in the usual sterile manner. Following local anesthesia a Jamshidi 6 inches 11-gauge bone marrow biopsy needle and sheath were advanced into the rightilium under CT guidance. The cortex was disrupted and approximately 8 to 10 cc of bloody aspirate was immediately removed and provided to the medical lab technologist. Subsequently a core biopsy was obtained using the outer sheath. The needle and sheath were removed. Postprocedure CT evaluation of the area revealed no significant hematoma. Patient tolerated the procedure well and remained hemodynamically stable throughout. IMPRESSION: Successful and uncomplicated CT-guided bone marrow aspiration and core biopsy. Signed: Jordan Sultana MD Report Verified Date/Time:03/17/2018 17:06:03 Reading Location: [facility] Radiology Reading Room Procedure Note Interface, External Ris In - 03/17/2018 5:08 PM CDT FINAL REPORT PROCEDURE: CT-guided bone marrow biopsy DOSE REDUCTION: The examination was performed according to departmental dose-optimization program which includes automated exposure control, adjustment of the mA and/or kV according to patient size and/or use of iterative reconstruction technique. Clinical History: Pancytopenia Director Paid Media: Marce Conscious sedation: Versed 1 mg, fentanyl 50 mcg, (Administered after informed consent was obtained) Vital signs were monitored throughout the procedure by a nurse, and remained stable. Physician patient face to face intra-service time was 30 minutes. Local anesthesia: 2% lidocaine TECHNIQUE: Informed written consent for the procedure was obtained. With the patient prone the area was scanned. The skin over the right iliac crest was prepped and draped in the usual sterile manner. Following local anesthesia a Jamshidi 6 inches 11-gauge bone marrow biopsy needle and sheath were advanced into the right ilium under CT guidance. The cortex was disrupted and approximately 8 to 10 cc of bloody aspirate was immediately removed and provided to the medical lab technologist. Subsequently a core biopsy was obtained using the outer sheath. The needle and sheath were removed. Postprocedure CT evaluation of the area revealed no significant hematoma. Patient tolerated the procedure well and remained hemodynamically stable throughout. IMPRESSION: Successful and uncomplicated CT-guided bone marrow aspiration and core biopsy. Signed: Jordan Sultana MD Report Verified Date/Time: 03/17/2018 17:06:03 Reading Location: [facility] Radiology Reading Room CARDIOGRAM REPORT - SCAN (03/17/2018 12:50 PM)XR chest 2 views (03/17/2018 10:42 AM)Only the most recent of3 resultswithin the time period is included. Specimen Performing Laboratory [facility] Narrative FINAL REPORT Comparison: 15/08/2017 TECHNIQUE: 2 views of the chest FINDINGS: There is mild vascular congestion. There are small pleural effusions. Cardiac silhouette is enlarged. Left internal jugular chest port noted with tip at the cavoatrial junction. Surgical clips project over the right chest wall. Signed: Jordan Sultana MD Report Verified Date/Time:03/17/2018 13:39:16 Reading Location: [facility] Radiology Reading Room Procedure Note Interface, External Ris In - 03/17/2018 1:41 PM CDT FINAL REPORT Comparison: 15/08/2017 TECHNIQUE: 2 views of the chest FINDINGS: There is mild vascular congestion. There are small pleural effusions. Cardiac silhouette is enlarged. Left internal jugular chest port noted with tip at the cavoatrial junction. Surgical clips project over the right chest wall. Signed: Jordan Sultana MD Report Verified Date/Time: 03/17/2018 13:39:16 Reading Location: [facility] Radiology Reading Room 2D Echo W/Doppler(CW/PW/Color) (03/17/2018 8:04 AM) Component Value Ref Range Ejection Fraction Specimen Performing Laboratory [facility] ECHO [facility]ART[facility] MKCKESSON CPACS Narrative Transthoracic Echocardiography Report (TTE) Demographics Patient Name Esthela GOLD of Study 03/17/2018 ADAN [id number] GenderFemale Visit Number [id number] [facility] [id number] Number [id number] Number Date of Birth1965 Referring Physician Age53 year(s) Director Of Residential Services Zakia Blas MD. Physician Procedure Type of Study TTE procedure:2DECHO W DOPPLER(CW/PW/COLOR) Indications:Chest pain. Clinical History Cancer HLD UTI IBS Height: 63 inches Weight: 47.63 kg (105 lbs) BSA: 1.47 m^2 BMI: 18.6 kg/m^2 HR: 128 bpm BP: 150/99 mmHg Summary Low normal LV systolic function with an estimated LVEF of 50%. Grade 1 diastolic dysfunction (impaired relaxation and low-normal LA pressure). The entire septal wall is mildly hypokinetic. No obvious structural valvular abnormalities visualized. Mild tricuspid regurgitation. Mild pulmonary hypertension; estimated PA systolic pressure of 31 mm Hg, assuming an RA pressure of 3 mm Hg. No pericardial effusion. No previous study to compare from. Signature Findings Left Ventricle Low normal LV systolic function. The visual ejection fraction was estimated 50 %. The entire septal wall is mildly hypokinetic. Grade 1 diastolic dysfunction (impaired relaxation and low-normal LA pressure). Left AtriumLA size is normal . The left atrium appears normal. Right VentricleThe right ventricular chamber size and systolic function are within normal limits. Right Atrium RA size is normal. Aortic Valve Normal AoV structure. There is no aortic stenosis. There is no aortic regurgitation. Mitral Valve Mild MV leaflet thickening. Trace mitral regurgitation. Tricuspid ValveMild tricuspid regurgitation. Estimated peak systolic PA pressure is 30-35 mmHg . Pulmonic Valve No evidence of pulmonary regurgitation. AortaAortic root size (SInus of Valsalva diameter) is normal . PericardiumTrivial posterior pericardial effusion. IVC/SVC/PA/PV/PleuralThe inferior vena cava size is normal . Chambers/Structures Left Atrium LA Dimension: 3.28 cm Left Ventricle LVIDd: 3.57 cmLVEDV: 53.45 ml LVIDs: 3.31 cmLVESV: 44.57 ml LV Septum Diastolic: 1.11 cm LV Septum Systolic: 0.98 cm LV Length : 8.24 cm LV PW Diastolic: 1.23 cmLV FS : 7.3 % LV PW Systolic: 1.39 cm LVOT Diameter: 1.88 cm LVEF: 16.6 % Right Atrium RA Systolic Pressure: 10 mmHg Right Ventricle RV Diast Dim.: 2.54 cm RV Systolic Pressure: 37.85 mmHg Aorta Ao Root S of Falguni.: 2.47 cm Doppler/Quantitative Measurements Mitral Valve MV Peak E-Wave: 1 m/sMV Peak A-Wave: 0.46 m/s P1/2t: 24 msec E/A Ratio: 2.16 Peak Velocity: 1.01 m/sPeak Gradient: 4.03 mmHg Mean Velocity: 0.4 m/s Deceleration Time: 63.5 msec Mean Gradient: 0.99 mmHg Area (continuity): 1.81 cm^2 MV Area (PHT): 9.15 cm^2 MV VTI : 12.77 cm MV Felix. Peak: Aortic Valve Peak Velocity: 1.08 m/sMean Velocity: 0.85 m/s Peak Gradient: 4.65 mmHg Mean Gradient: 3.19 mmHg AV Area (continuity): 2.26 cm^2 AV VTI: 10.2 cm Cusp Separation: 1.34 cm AV DVI: 0.81 LVOT Peak Velocity: 0.83 m/s Peak Gradient: 2.76 mmHg Mean Velocity: 0.52 m/s Mean Gradient: 1.35 mmHg LVOT Diameter: 1.88 cmLVOT VTI: 8.31 cm LVOT Area: 2.78 cm^2LVOT SV:23.06 ml LVOT CO: 2.95 l/min LVOT CI: 2.01 l/min/m^2 Tricuspid Valve Estimated RVSP: 37.86 mmHg Estimated RAP: 10 mmHg TR Velocity: 2.64 m/s TR Gradient: 27.85 mmHg Pulmonic Valve Peak Velocity: 0.81 m/s Peak Gradient: 2.6 mmHg Estimated PASP: 37.85 mmHg Procedure Note Interface, External Ris In - 03/17/2018 12:13 PM CDT Transthoracic Echocardiography Report (TTE) Demographics Patient Name RENATE GOLD Date of Study 03/17/2018 ADAN Gender Female Visit Number [id number] Race Unknown Room Number AS415 Number Date of 1965 Referring Physician Age 53 year(s) Director Of Residential Services Zakia MANNING Interpreting Juliet Blas MD. Physician Procedure Type of Study TTE procedure:2DECHO W DOPPLER(CW/PW/COLOR) Indications:Chest pain. Clinical History Cancer HLD UTI IBS Height: 63 inches Weight: 47.63 kg (105 lbs) BSA: 1.47 m^2 BMI: 18.6 kg/m^2 HR: 128 bpm BP: 150/99 mmHg Summary Low normal LV systolic function with an estimated LVEF of 50%. Grade 1 diastolic dysfunction (impaired relaxation and low-normal LA pressure). The entire septal wall is mildly hypokinetic. No obvious structural valvular abnormalities visualized. Mild tricuspid regurgitation. Mild pulmonary hypertension; estimated PA systolic pressure of 31 mm Hg, assuming an RA pressure of 3 mm Hg. No pericardial effusion. No previous study to compare from. Signature Findings Left Ventricle Low normal LV systolic function. The visual ejection fraction was estimated 50 %. The entire septal wall is mildly hypokinetic. Grade 1 diastolic dysfunction (impaired relaxation and low-normal LA pressure). Left Atrium LA size is normal . The left atrium appears normal. Right Ventricle The right ventricular chamber size and systolic function are within normal limits. Right Atrium RA size is normal. Aortic Valve Normal AoV structure. There is no aortic stenosis. There is no aortic regurgitation. Mitral Valve Mild MV leaflet thickening. Trace mitral regurgitation. Tricuspid Valve Mild tricuspid regurgitation. Estimated peak systolic PA pressure is 30-35 mmHg . Pulmonic Valve No evidence of pulmonary regurgitation. Aorta Aortic root size (SInus of Valsalva diameter) is normal . Pericardium Trivial posterior pericardial effusion. IVC/SVC/PA/PV/Pleural The inferior vena cava size is normal . Chambers/Structures Left Atrium LA Dimension: 3.28 cm Left Ventricle LVIDd: 3.57 cm LVEDV:53.45 ml LVIDs: 3.31 cm LVESV:44.57 ml LV Septum Diastolic: 1.11 cm LV Septum Systolic: 0.98 cm LV Length: 8.24 cm LV PW Diastolic: 1.23 cm LV FS: 7.3 % LV PW Systolic: 1.39 cm LVOT Diameter: 1.88 cm LVEF: 16.6 % Right Atrium RA Systolic Pressure: 10 mmHg Right Ventricle RV Diast Dim.: 2.54 cm RV Systolic Pressure: 37.85 mmHg Aorta Ao Root S of Falguni.: 2.47 cm Doppler/Quantitative Measurements Mitral Valve MV Peak E-Wave: 1 m/s MV Peak A-Wave: 0.46 m/s P1/2t: 24 msec E/A Ratio: 2.16 Peak Velocity: 1.01 m/s Peak Gradient: 4.03 mmHg Mean Velocity: 0.4 m/s Deceleration Time: 63.5 msec Mean Gradient: 0.99 mmHg Area (continuity): 1.81 cm^2 MV Area (PHT): 9.15 cm^2 MV VTI: 12.77 cm MV Felix. Peak: Aortic Valve Peak Velocity: 1.08 m/s Mean Velocity: 0.85 m/s Peak Gradient: 4.65 mmHg Mean Gradient: 3.19 mmHg AV Area (continuity): 2.26 cm^2 AV VTI: 10.2 cm Cusp Separation: 1.34 cm AV DVI: 0.81 LVOT Peak Velocity: 0.83 m/s Peak Gradient: 2.76 mmHg Mean Velocity: 0.52 m/s Mean Gradient: 1.35 mmHg LVOT Diameter: 1.88 cm LVOT VTI: 8.31 cm LVOT Area: 2.78 cm^2 LVOT SV:23.06 ml LVOT CO: 2.95 l/min LVOT CI: 2.01 l/min/m^2 Tricuspid Valve Estimated RVSP: 37.86 mmHg Estimated RAP: 10 mmHg TR Velocity: 2.64 m/s TR Gradient: 27.85 mmHg Pulmonic Valve Peak Velocity: 0.81 m/s Peak Gradient: 2.6 mmHg Estimated PASP: 37.85 mmHg Chromosomes Cancer Study (03/17/2018 7:46 AM) Component Value Ref Range Scan Result Specimen Performing Laboratory Bone Marrow [facility] [address] [facility] [place] [address] PARVOVIRUS B19 IGM (03/17/2018 6:02 AM) Component Value Ref Range Parvovirus B19 Igm 0.1 Comment: REFERENCE RANGE: <0.9 INTERPRETIVE CRITERIA: <0.9 Negative 0.9 - 1.1 Equivocal >1.1 Positive Results from any one IgM assay should not be used as a sole determinant of a current or recent infection. Because IgM tests can yield false positive results and low levels of IgM antibody may persist for months post infection, reliance on a single test result could be misleading. If an acute infection is suspected, consider obtaining a new specimen and submit for both IgG and IgM testing in two or more weeks. To diagnose current infection, consider Parvovirus B19 DNA, PCR. Specimen Performing Laboratory Blood [facility] [address] [address] Narrative Performing Lab *[facility] [address] [place] [phone] Susannah Cherry MD PARVOVIRUS B19 IGG (03/17/2018 6:02 AM) Component Value Ref Range Parvovirus B19 Igg 0.6 Comment: REFERENCE RANGE: <0.9 INTERPRETIVE CRITERIA: <0.9 Negative 0.9 - 1.1 Equivocal >1.1 Positive IgG persists for years and provides life-long immunity. To diagnose current infection, consider Parvovirus B19 DNA, PCR. Specimen Performing Laboratory Blood [facility] [address] [address] Narrative Performing Lab *[facility] [address] [place] [phone] Susannah Cherry MD Parvovirus B19 antibodies (IgG, IgM) (03/17/2018 6:02 AM) Component Value Ref Range Parvovirus Ab Profile. Refer to individual Parvovirus B19 IgG and Igm results Specimen Performing Laboratory Blood [facility] [address] [address] Blood gas, arterial (03/17/2018 4:53 AM) Component Value Ref Range pH, Arterial 7.40 7.35 - 7.45 pCO2, Arterial 18 (LL) 35 - 45 mmHg pO2, Arterial 72 (L) 80 - 90 mmHg O2 Sat, Arterial 94.7 (L) 96.0 - 97.0 % HCO3, Arterial 11 (L) 21 - 29 mmol/L Base Excess, Arterial -12.0 (L) -2.0 - 3.0 mmol/L Patient Temperature 37.5 C FIO2 28.0 % Specimen Performing Laboratory Blood, Arterial - Arm, Right [facility] [address] [place] [address] Protein, random urine (03/16/2018 10:45 PM) Component Value Ref Range Protein, Urine 432 (H) 0 - 14 mg/dL Specimen Performing Laboratory Urine [facility] [address] [place] [address] Urine Protein Electrophoresis, random (03/16/2018 10:45 PM) Component Value Ref Range Protein, Urine 412 (H) 0 - 14 mg/dL Albumin %, Urine 56.3 % Globulin %, Urine 43.7 % UPEP,ID No monoclonal bands detected. Pathologist: Barbie Mccollum MD (electronic signature) Specimen Performing Laboratory Urine [address] [address] Urine Immunofixation, random (03/16/2018 10:45 PM) Component Value Ref Range Protein, Urine 412 (H) 0 - 14 mg/dL Albumin %, Urine 56.3 % Globulin %, Urine 43.7 % URINE JUDSON ID No monoclonal proteins or monoclonal free light chains detected. Pathologist: Barbie Mccollum MD (electronic signature) Specimen Performing Laboratory Urine [address] [address] Urinalysis w/Microscopic (03/16/2018 10:45 PM)Only the most recent of4 resultswithin the time period is included. Component Value Ref Range Color, UA Yellow Clarity, UA Clear Specific [place], UA 1.020 1.001 - 1.035 pH, UA 5.5 5.0 - 8.0 Protein, UA >=300 mg/dL (A) Negative Glucose, UA Negative Negative Ketones, UA Negative Negative Bilirubin, UA Negative Negative Blood, UA Large (A) Negative Nitrite, UA Negative Negative Leukocytes, UA Trace (A) Negative Urobilinogen, UA 0.2 0.2 - 1.0 mg/dL Bacteria, UA Occasional Amorphous Crystals Few RBC, UA 5-10 /HPF WBC, UA <5 /HPF SQUAMOUS EPITHELIAL 5-10 /HPF GRANULAR CASTS Few /LPF Specimen Source Specimen Performing Laboratory Urine [facility] [address] [place] [address] Peripheral Blood Smear - Path Review (03/16/2018 9:47 PM) Component Value Ref Range Pathologist Review Normochromic normocytic anemia with rare schistocytes seen (1-2/ HPF). WBCs normal in number and morphology. Thrombocytopenia with a few large forms. Pathologist: Michelle Yu M.D. (electronic signature) Specimen Performing Laboratory Blood [facility] [address] [place] [address] SARAH Titer & Pattern (03/16/2018 9:47 PM) Component Value Ref Range SARAH Titer >=1:2560 SARAH Pattern Speckled Specimen Performing Laboratory Blood [facility] [address] [place] [address] Glomerular basement membrane antibody (03/16/2018 9:47 PM) Component Value Ref Range GBM Ab <1.0 <1.0 AI Comment: Interpretation: < 1.0 AI No Antibody Detected > OR=1.0 AI Antibody Detected Specimen Performing Laboratory Blood [facility] [address] [address] Narrative Performing Lab [facility] [address] [address] Eusebia Jolly MD, PhD, LUIS ALBERTO Anti-Neutrophil Cytoplasmic Ab (ANCA) (03/16/2018 9:47 PM) Component Value Ref Range Proteinase-3 Ab <1.0 <1.0 AI Comment: <1.0 AI No Antibody Detected > or=1.0 AI Antibody Detected Autoantibodies to proteinase-3 (NH-3) are accepted as characteristic for granulomatosis with polyangiitis (GPA, Amber's), and are detectable in 95% of the histologically proven cases. The cytoplasmic IFA pattern, (c-ANCA), is based largely on autoantibody to NH-3 which serves as the primary antigen. These autoantibodies are present in active disease. Myeloperoxidase Ab <1.0 <1.0 AI Comment: <1.0 AI No Antibody Detected > or=1.0 AI Antibody Detected Autoantibodies to myeloperoxidase (MPO) are commonly associated with the following small-vessel vasculitides: microscopic polyangiitis, polyarteritis nodosa, Churg-Edwin syndrome, necrotizing and crescentic glomerulonephritis and occasionally granulomatosis with polyangiitis (GPA, Amber's). The perinuclear IFA pattern, (p-ANCA) is based largely on autoantibody to myeloperoxidase which serves as the primary antigen. These autoantibodies are present in active disease. Specimen Performing Laboratory Blood [facility] [address] [place] [address] Narrative Performing Lab [facility] [address] [address] [place] [address] Eusebia Jolly MD, PhD, LUIS ALBERTO Immunofixation electrophoresis (JUDSON) (03/16/2018 9:47 PM) Component Value Ref Range IgG 2008 (H) 540 - 1822 mg/dL IgA 37 (L) 63 - 484 mg/dL IgM 673 (H) 22 - 293 mg/dL Serum JUDSON Identification No monoclonal proteins detected. Polyclonal elevation of gamma globulins. Pathologist: Barbie Mccollum MD (electronic signature) Specimen Performing Laboratory [address] [address] Bilirubin, total and direct (03/16/2018 9:47 PM) Component Value Ref Range Total Bilirubin 2.1 (H) 0.1 - 1.2 mg/dL Bilirubin, Direct 1.1 (H) 0.0 - 0.4 mg/dL Specimen Performing Laboratory [facility] [address] [place] [address] Complement Component C3 (03/16/2018 9:47 PM) Component Value Ref Range C3 Complement 94 82 - 193 mg/dL Specimen Performing Laboratory [address] [address] Complement Component C4 (03/16/2018 9:47 PM) Component Value Ref Range C4 Complement 22 15 - 57 mg/dL Specimen Performing Laboratory [address] [address] Anti-Nuclear Antibody (SARAH) (03/16/2018 9:47 PM) Component Value Ref Range SARAH Positive (A) Negative Specimen Performing Laboratory [address] [address] Narrative Test performed by IFA method. Protein electrophoresis, serum (03/16/2018 9:47 PM) Component Value Ref Range Albumin Fraction 2.7 (L) 3.5 - 5.5 g/dL Alpha 1 Fraction 0.4 0.2 - 0.4 g/dL Alpha 2 Fraction 0.5 0.5 - 0.9 g/dL Beta Fraction 0.8 0.6 - 1.1 g/dL Gamma Globulin Fraction 2.2 (H) 0.7 - 1.7 g/dL Interpretation Polyclonal elevation of gamma fraction, suggestive of chronic inflammatory response. Serum JUDSON pending to evaluate for presence of small underlying monoclonal protein in this region. Pathologist: Barbie Mccollum MD (electronic signature) Protein, Total 6.7 6.0 - 8.3 gm/dL Specimen Performing Laboratory Blood [facility] [address] [address] Ketone, blood (03/16/2018 9:47 PM) Component Value Ref Range Ketones, Blood 0.3 <0.4 mmol/L Specimen Performing Laboratory Blood [facility] [address] [place] [address] ED ECG Interpretation (03/16/2018 11:25 AM) Narrative Luis Fernando Kumar DO 03/16/2018 11:25 AM ECG/EKG Interpretation Date/Time: 03/16/2018 10:21 AM Performed by: LUIS FERNANDO KUMAR Authorized by: LUIS FERNANDO KUMAR The ECG was interpreted by ED physician. This ECG was not compared with previous ECG(s).The ECG is interpreted as sinus tachycardia. Rate is tachycardic. Heart rate is [address] segments normal. [place] is normal. Clinical Impression: non-specific ECGECG reviewed and does not meet STEMI criteria. Patient tolerance: Patient tolerated the procedure well with no immediate complications Critical Care (03/16/2018 11:25 AM) Narrative Luis Fernando Kumar DO 03/16/2018 11:25 AM Critical Care Performed by: LUIS FERNANDO KUMAR Authorized by: LUIS FERNANDO KUMAR Total critical care time: 60 minutes Critical care was necessary to treat or prevent imminent or life-threatening deterioration of the following conditions: renal failure and circulatory failure. Critical care was time spent personally by me on the following activities: discussions with primary provider, interpretation of cardiac output measurements, examination of patient, ordering and performing treatments and interventions, ordering and review of laboratory studies, ordering and review of radiographic studies, pulse oximetry and re-evaluation of patient's condition. Type and screen (03/16/2018 10:27 AM) Component Value Ref Range Ab Scrn NEGATIVEComment: TNS - ECHO ABO Grouping A Rh Factor POS Specimen Performing Laboratory Blood [address] [address] Manual Differential (03/16/2018 10:02 AM)Only the most recent of4 resultswithin the time period is included. Component Value Ref Range Total Counted WBC Morphology Normal Platelet Morphology Normal Schistocytes 1+ few Anisocytosis 1+ few Macrocytes 1+ few Microcytes 1+ few Poikilocytes 1+ few Polychromasia 1+ few Specimen Performing Laboratory Blood [facility] [address] [place] [id number] Creatine Kinase (CK), Total and MB (not available at [facility]) (2017 10:02 AM) Component Value Ref Range Total CK 125 25 - 235 U/L CK-MB 0.9 0.0 - 4.9 ng/mL MB Relative Index 0.7 % Specimen Performing Laboratory Blood [facility] [address] [place] [address] Narrative CK-MB Reference Range: <5 Normal 5-10 Borderline >10Abnormal Blood culture (03/16/2018 10:01 AM)Only the most recent of5 resultswithin the time period is included. Component Value Ref Range Result No growth in 5 days Specimen Performing Laboratory Blood - Arm, Right [facility] [address] [place] [id number] Respiratory Panel [facility] (12/11/2017 10:13 AM) Component Value Ref Range Human Metapneumovirus Not detected Not detected, Inconclusive Rhinovirus Not detected Not detected, Inconclusive Influenza A Not detected Not detected, Inconclusive Influenza A subtype H1 Not detected Not detected, Inconclusive Influenza A Subtype H3 Not detected Not detected, Inconclusive Influenza A Subtype H1-2009 Not detected Not detected, Inconclusive Influenza B Not detected Not detected, Inconclusive Respiratory Syncytial Virus Not detected Not detected, Inconclusive Parainfluenza Virus 1 Not detected Not detected, Inconclusive Parainfluenza Virus 2 Not detected Not detected, Inconclusive Parainfluenza virus 3 Not detected Not detected, Inconclusive Parainfluenza Virus 4 Not detected Not detected, Inconclusive Adenovirus Not detected Not detected, Inconclusive Coronavirus 229E Not detected Not detected, Inconclusive Coronavirus HKU1 Not detected Not detected, Inconclusive Coronavirus NL63 Not detected Not detected, Inconclusive Coronavirus OC43 Not detected Not detected, Inconclusive Bordetella Pertussis Not detected Not detected, Inconclusive Chlamydophila Pneumoniae Not detected Not detected, Inconclusive Mycoplasma Pneumoniae Not detected Not detected, Inconclusive Specimen Performing Laboratory Nasopharyngeal - Nasopharyngeal Swab [address] [address] Vancomycin level, trough (12/11/2017 4:58 AM)Only the most recent of2 resultswithin the time period is included. Component Value Ref Range Vancomycin Tr 11.7 10.0 - 20.0 ug/mL Specimen Performing Laboratory Blood [facility] [address] [place] [address] Urine culture (12/08/2017 7:03 PM)Only the most recent of2 resultswithin the time period is included. Component Value Ref Range Result No growth Specimen Performing Laboratory Urine - Urine, Clean Catch [facility] [address] [place] [address] CT brain without IV contrast (10/20/2017 4:58 PM) Specimen Performing Laboratory [facility] Narrative FINAL REPORT CT Head without contrast CLINICAL HISTORY: Headache TECHNIQUE: Contiguous axial images through the head without contrast. This exam was performed according to the departmental dose optimization program which includes automated exposure control, adjustment of the mA and/or kV according to the patient size, and/or use of an iterative reconstruction technique. COMPARISON: MRI 04/21/2014 FINDINGS: There is no CT evidence of acute infarct or intracranial hemorrhage. There is no hydrocephalus, midline shift, or apparent mass effect. There are no extra-axial fluid collections. The skull is intact. There is an air-fluid level in the sphenoid sinus. IMPRESSION: No CT evidence of acute infarct, hemorrhage, or hydrocephalus. Acute sphenoid sinusitis. Signed: Hailey Lucas MD Report Verified Date/Time:10/20/2017 17:12:46 Reading Location: [facility] Radiology Reading Room Procedure Note Interface, External Ris In - 10/20/2017 5:15 PM CDT FINAL REPORT CT Head without contrast CLINICAL HISTORY: Headache TECHNIQUE: Contiguous axial images through the head without contrast. This exam was performed according to the departmental dose optimization program which includes automated exposure control, adjustment of the mA and/or kV according to the patient size, and/or use of an iterative reconstruction technique. COMPARISON: MRI 04/21/2014 FINDINGS: There is no CT evidence of acute infarct or intracranial hemorrhage. There is no hydrocephalus, midline shift, or apparent mass effect. There are no extra-axial fluid collections. The skull is intact. There is an air-fluid level in the sphenoid sinus. IMPRESSION: No CT evidence of acute infarct, hemorrhage, or hydrocephalus. Acute sphenoid sinusitis. Signed: Hailey Lucas MD Report Verified Date/Time: 10/20/2017 17:12:46 Reading Location: [facility] Radiology Reading Room abdomen pelvis with IV contrast (10/20/2017 9:00 AM) Specimen Performing Laboratory [facility] Narrative FINAL REPORT INDICATION: 52-year-old female with fever and abdominal pain. COMPARISON: April 21, 2014 TECHNIQUE: CT of the Abdomen and Pelvis WITH intravenous contrast. Enteric contrast was not used. The exam was performed according to our department dose-optimization protocol, which includes automated exposure control, adjustments of mA and kV according to patient size. Iterative reconstructions are also sometimes employed. FINDINGS: Patient is status post cholecystectomy. Prominence of the bile ducts represents increased capacitance of the biliary system after cholecystectomy. Pancreas is normal in configuration and there is no peripancreatic stranding. No pancreatic mass, ductal dilatation, or atrophy. Spleen is at the upper limits of normal in size measuring 13.5 cm coronal diameter, unchanged compared to March 2014. Main portal vein is prominent measuring 1.3 cm in diameter, also unchanged. Liver contour is smooth and liver are normal in size. No suspicious liver lesion demonstrated. No upper abdominal lymphadenopathy. Kidneys enhance symmetrically and there is no suspicious renal lesion. No hydronephrosis. Adrenal glands unremarkable. Bladder is mildly distended and no bladder wall abnormality is demonstrated. Patient is status post hysterectomy. No pelvic free fluid or pelvic lymphadenopathy. There is scattered mild calcified plaque of the abdominal aorta and iliac arteries. IVC and iliac veins unremarkable. There is no evidence of bowel obstruction or infection. Appendix is normal in caliber and there is no periappendiceal stranding. Appendicoliths are noted. No peritoneal free fluid or free air. There is diffuse mild increase in colonic stool burden. No suspicious osseous lesion and no significant osseous degenerative changes. Partial imaging of the lower thorax unremarkable. IMPRESSION: No evidence of acute abdominal or pelvic abnormality. Prior cholecystectomy. Prominent spleen and prominent main portal vein, unchanged since March 2014. If there is clinical concern for portal hypertension, recommend correlation with liver function test and patient's history. Constipation. Signed: Weston Chavez MD Report Verified Date/Time:10/20/2017 09:17:32 Reading Location: [facility] B1 C013X Ortho Consult Reading Room Procedure Note Interface, External Ris In - 10/20/2017 9:44 AM CDT FINAL REPORT INDICATION: 52-year-old female with fever and abdominal pain. COMPARISON: April 21, 2014 TECHNIQUE: CT of the Abdomen and Pelvis WITH intravenous contrast. Enteric contrast was not used. The exam was performed according to our department dose-optimization protocol, which includes automated exposure control, adjustments of mA and kV according to patient size. Iterative reconstructions are also sometimes employed. FINDINGS: Patient is status post cholecystectomy. Prominence of the bile ducts represents increased capacitance of the biliary system after cholecystectomy. Pancreas is normal in configuration and there is no peripancreatic stranding. No pancreatic mass, ductal dilatation, or atrophy. Spleen is at the upper limits of normal in size measuring 13.5 cm coronal diameter, unchanged compared to March 2014. Main portal vein is prominent measuring 1.3 cm in diameter, also unchanged. Liver contour is smooth and liver are normal in size. No suspicious liver lesion demonstrated. No upper abdominal lymphadenopathy. Kidneys enhance symmetrically and there is no suspicious renal lesion. No hydronephrosis. Adrenal glands unremarkable. Bladder is mildly distended and no bladder wall abnormality is demonstrated. Patient is status post hysterectomy. No pelvic free fluid or pelvic lymphadenopathy. There is scattered mild calcified plaque of the abdominal aorta and iliac arteries. IVC and iliac veins unremarkable. There is no evidence of bowel obstruction or infection. Appendix is normal in caliber and there is no periappendiceal stranding. Appendicoliths are noted. No peritoneal free fluid or free air. There is diffuse mild increase in colonic stool burden. No suspicious osseous lesion and no significant osseous degenerative changes. Partial imaging of the lower thorax unremarkable. IMPRESSION: No evidence of acute abdominal or pelvic abnormality. Prior cholecystectomy. Prominent spleen and prominent main portal vein, unchanged since March 2014. If there is clinical concern for portal hypertension, recommend correlation with liver function test and patient's history. Constipation. Signed: Weston Chavez MD Report Verified Date/Time: 10/20/2017 09:17:32 Reading Location: [facility] B1 C013X Ortho Consult Reading Room Influenza antigen A & B (Rapid) (10/20/2017 7:26 AM) Component Value Ref Range Rapid Influenza A Antigen Negative Negative, Inconclusive Rapid influenza B Antigen Negative Negative, Inconclusive Specimen Performing Laboratory Nasopharyngeal - Nasopharyngeal Swab [facility] [address] [place] [address] Lipase (10/20/2017 7:23 AM) Component Value Ref Range Lipase 42 6 - 51 U/L Specimen Performing Laboratory Blood [facility] [place] [address] after 03/31/2017
--- OUTSIDE RECORDS SUMMARY | 2018-04-01 03:17 | XMS REPORT ---
:1965 [facility] Address [address] [place] [address] Dr. [address] [place] [id number] Care Team Providers Name Role Phone LENORE BARRERA Unavailable Unavailable LUIS FERNANDO KUMAR Unavailable Unavailable JAZZ, FER FERRARI Unavailable Unavailable GO, JEF LUCAS Unavailable Unavailable Problems This patient has no known problems. Allergies, Adverse Reactions, Alerts This patient has no known allergies or adverse reactions. Medications This patient has no known medications. 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 One study (see reference) have reported arteriolar deposition of C4d to suggest a deficit in complement regulation. Clinical correlation is recommended. Reference:Earline ROMAN, et al. Complement Factor C4d Is a Common Denominator in Thrombotic Microangiopathy. J Am Soc Nephrol. 2015 Sep;26(9):2239-47.The results were communicated to Dr. Vital on 03/25/2018 at 10.15 am. [id number], [id number] X3, 35009, 84469 x8, [id number] renal failure evaluationNative left kidney biopsyThe specimen is received in three parts all labeled with the patient's information. Received in formalin are three go-red core biopsies ranging in length from 0.3 to 1.1 cm, submitted entirely A1. Received fresh is a 1 cm go-red core, submitted for frozen section for immunofluorescence staining and received in electron microscopy consists of a 0.2 cm core submitted for electron microscopy. CG/pl LIGHT MICROSCOPYSections show three cores of renal parenchymal tissue composed of cortical tissue (~80%) and medullary tissue (~20%). Glomeruli: Approximately 56 glomeruli are examined, of which 5 are globally sclerosed. The glomeruli show diffuse fibrillary expansion of mesangium with wrinkled glomerular basement membranes. Mild reactive neutrophilic infiltration is noted. The visceral epithelial cells are prominent. There is focal glomerular congestion and thrombi. No segmental necrosis, endocapillary proliferation, or crescents are noted.Tubules and interstitium: There is moderate interstitial fibrosis with tubular atrophy, involving about 40% of cortical tissue. Some tubular profiles are ectatic and show epithelial injury with reactive changes. Few tubular profiles show red blood cell casts.Vessels: Small arteries and arterioles show show fibrin thrombi and fragmented red blood cells. Branches of interlobular arteries show mild intimal sclerosis. No endothelialitis, arteritis or transmural vasculitis is seen.IMMUNOFLUORESCENCE:Direct Immunofluorescence:Histology: H&E-stained sections show 10 non-obsolescent glomeruli. Immunofluorescence findings: IgA: Negative in glomeruli, tubular casts are positiveIgG: Negative in glomeruli. There is diffuse weak positive staining of the tubular epithelial cell nucleiIgM: Diffuse global, granular, peripheral capillary loop and mesangial staining 3+, weak staining in tubular basement membranes and peritubular capillariesC3: Diffuse and global, granular, peripheral capillary loop and mesangial staining, 1+. negative in tubular basement membranes.C1q: Focal weak granular, mesangial staining, negative in tubular basement membranes.Fibrinogen: Positive in thrombiKappa: Focal segmental to global, granular, peripheral capillary loop [...] of interlobular arteries. The peritubular capillaries are negative.Thick section histology: Toluidine blue-stained section reveals two open glomeruli, both glomeruli are examined ultrastructurally. Ultrastructure: Examination of the glomerular ultrastructure reveals that the glomerular basement membrane shows focal wrinkling and presence of double contours with focal subendothelial rarefaction. There is mesangial interpositioning with laying down of a new basement membrane. Endothelial cell swelling is noted. The mesangial matrix is not expanded. Subendothelial, subepithelial, and mesangial/paramesangial electron-dense, immune complex-type deposits are not present. There is hypertrophy of visceral epithelial cells with extensive effacement of foot processes. BASIC METABOLIC PANEL 2018-03-31 06:14:00 Test Item Value Reference Range Comments SODIUM (BEAKER) (test 133 meq/L 136-145 mwxp=785) POTASSIUM (BEAKER) (test 4.6 meq/L 3.5-5.1 nhcf=162) CHLORIDE (BEAKER) (test 99 meq/L 98-107 lrdk=957) CO2 (BEAKER) (test ajcp=301) 24 meq/L 22-29 BLOOD UREA NITROGEN (BEAKER) 45 mg/dL 7-21 (test gwqz=305) CREATININE (BEAKER) (test 4.49 mg/dL 0.57-1.25 tonr=365) GLUCOSE RANDOM (BEAKER) 95 mg/dL 70-105 (test tczv=953) CALCIUM (BEAKER) (test 8.1 mg/dL 8.4-10.2 rcft=022) EGFR (BEAKER) (test 10 mL/min/1.73 sq m ESTIMATED GFR IS NOT tsnx=6810) ACCURATE CREATININE CLEARANCE IN PREDICTING GLOMERULAR FILTRATION RATE. ESTIMATED GFR IS NOT APPLICABLE FOR DIALYSIS PATIENTS. [id number] 06:05:00 Test Item Value Reference Range Comments MAGNESIUM (BEAKER) (test oewn=463) 1.9 mg/dL 1.6-2.6 CBC W/PLT COUNT & AUTO [id number] 05:20:00 Test Item Value Reference Range Comments WHITE BLOOD CELL COUNT (BEAKER) (test vflh=763) 4.1 K/ L 3.5-10.5 RED BLOOD CELL COUNT (BEAKER) (test lslh=412) 2.55 M/ L 3.93-5.22 HEMOGLOBIN (BEAKER) (test xlvo=167) 8.0 GM/DL 11.2-15.7 HEMATOCRIT (BEAKER) (test fxej=329) 26.0 % 34.1-44.9 MEAN CORPUSCULAR VOLUME (BEAKER) (test csdp=514) 102.0 fL 79.4-94.8 MEAN CORPUSCULAR HEMOGLOBIN (BEAKER) (test 31.4 pg 25.6-32.2 bzev=738) MEAN CORPUSCULAR HEMOGLOBIN CONC (BEAKER) (test 30.8 GM/DL 32.2-35.5 lkxq=168) RED CELL DISTRIBUTION WIDTH (BEAKER) (test 18.9 % 11.7-14.4 kahc=932) PLATELET COUNT (BEAKER) (test dpaj=285) 54 K/CU MM 150-450 MEAN PLATELET VOLUME (BEAKER) (test zmta=629) 12.9 fL 9.4-12.3 NUCLEATED RED BLOOD CELLS (BEAKER) (test 0 /100 WBC 0-0 aljr=692) NEUTROPHILS RELATIVE PERCENT (BEAKER) (test 84 % ehdy=723) LYMPHOCYTES RELATIVE PERCENT (BEAKER) (test 8 % oaaf=809) MONOCYTES RELATIVE PERCENT (BEAKER) (test 7 % ggaa=322) EOSINOPHILS RELATIVE PERCENT (BEAKER) (test 1 % xliq=122) BASOPHILS RELATIVE PERCENT (BEAKER) (test 0 % izsf=549) NEUTROPHILS ABSOLUTE COUNT (BEAKER) (test 3.45 K/ L 1.56-6.13 rdzu=610) LYMPHOCYTES ABSOLUTE COUNT (BEAKER) (test 0.33 K/ L 1.18-3.74 xtkv=869) MONOCYTES ABSOLUTE COUNT (BEAKER) (test oppz=808) 0.28 K/ L 0.24-0.36 EOSINOPHILS ABSOLUTE COUNT (BEAKER) (test 0.03 K/ L 0.04-0.36 svhf=319) BASOPHILS ABSOLUTE COUNT (BEAKER) (test recb=119) 0.01 K/ L 0.01-0.08 IMMATURE GRANULOCYTES-RELATIVE PERCENT (BEAKER) 1 % 0-1 (test udyp=2325) POCT-GLUCOSE [id number] 18:43:00 Test Item Value Reference Range Comments POC-GLUCOSE METER (BEAKER) 121 mg/dL 70-110 TESTED AT [facility] [address] (test aeja=0801) [facility] [address] BASIC METABOLIC [id number] 06:46:00 Test Item Value Reference Range Comments SODIUM (BEAKER) (test 133 meq/L 136-145 jrwi=691) POTASSIUM (BEAKER) (test 4.1 meq/L 3.5-5.1 azyt=560) CHLORIDE (BEAKER) (test 98 meq/L 98-107 kvug=906) CO2 (BEAKER) (test 25 meq/L 22-29 szxp=897) BLOOD UREA NITROGEN 27 mg/dL 7-21 (BEAKER) (test ogcs=914) CREATININE (BEAKER) (test 2.91 mg/dL 0.57-1.25 edwf=695) GLUCOSE RANDOM (BEAKER) 92 mg/dL 70-105 (test aoxp=044) CALCIUM (BEAKER) (test 8.3 mg/dL 8.4-10.2 oyjh=616) EGFR (BEAKER) (test 17 mL/min/1.73 sq m ESTIMATED GFR IS NOT chfz=2205) ACCURATE CREATININE CLEARANCE IN PREDICTING GLOMERULAR FILTRATION RATE. ESTIMATED GFR IS NOT APPLICABLE FOR DIALYSIS PATIENTS. [id number] 06:34:00 Test Item Value Reference Range Comments MAGNESIUM (BEAKER) (test whvk=794) 1.9 mg/dL 1.6-2.6 [id number] 06:13:00 Test Item Value Reference Range Comments PROTIME (BEAKER) (test oazv=737) 16.7 seconds 11.7-14.7 INR (BEAKER) (test ezzx=547) 1.4 <=5.9 PARTIAL THROMBOPLASTIN TIME (BEAKER) (test 39.8 seconds 22.5-36.0 zdsr=724) RECOMMENDED COUMADIN/WARFARIN INR THERAPY RANGESSTANDARD DOSE: 2.0 - 3.0 Includes: PROPHYLAXIS forvenous thrombosis, systemic embolization; TREATMENT for venous thrombosis and/or pulmonary embolus.HIGH RISK: Target INR is 2.5-3.5 for patients with mechanical heart valves.CBC W/PLT COUNT & AUTO [id number] 06:11:00 Test Item Value Reference Range Comments WHITE BLOOD CELL COUNT (BEAKER) (test bldf=737) 3.2 K/ L 3.5-10.5 RED BLOOD CELL COUNT (BEAKER) (test mrge=667) 2.51 M/ L 3.93-5.22 HEMOGLOBIN (BEAKER) (test iilh=611) 8.0 GM/DL 11.2-15.7 HEMATOCRIT (BEAKER) (test txdm=626) 25.7 % 34.1-44.9 MEAN CORPUSCULAR VOLUME (BEAKER) (test zity=472) 102.4 fL 79.4-94.8 MEAN CORPUSCULAR HEMOGLOBIN (BEAKER) (test 31.9 pg 25.6-32.2 xfrj=600) MEAN CORPUSCULAR HEMOGLOBIN CONC (BEAKER) (test 31.1 GM/DL 32.2-35.5 rtxx=051) RED CELL DISTRIBUTION WIDTH (BEAKER) (test 19.3 % 11.7-14.4 uahe=409) PLATELET COUNT (BEAKER) (test qylw=591) 49 K/CU MM 150-450 MEAN PLATELET VOLUME (BEAKER) (test cplk=469) 12.6 fL 9.4-12.3 NUCLEATED RED BLOOD CELLS (BEAKER) (test 0 /100 WBC 0-0 nqpu=176) NEUTROPHILS RELATIVE PERCENT (BEAKER) (test 82 % kvaa=541) LYMPHOCYTES RELATIVE PERCENT (BEAKER) (test 9 % pjvx=111) MONOCYTES RELATIVE PERCENT (BEAKER) (test 9 % ystz=957) EOSINOPHILS RELATIVE PERCENT (BEAKER) (test 0 % ibdf=019) BASOPHILS RELATIVE PERCENT (BEAKER) (test 0 % oens=121) NEUTROPHILS ABSOLUTE COUNT (BEAKER) (test 2.60 K/ L 1.56-6.13 gckr=615) LYMPHOCYTES ABSOLUTE COUNT (BEAKER) (test 0.29 K/ L 1.18-3.74 fqri=245) MONOCYTES ABSOLUTE COUNT (BEAKER) (test xugu=409) 0.27 K/ L 0.24-0.36 EOSINOPHILS ABSOLUTE COUNT (BEAKER) (test 0.00 K/ L 0.04-0.36 hisb=743) BASOPHILS ABSOLUTE COUNT (BEAKER) (test ztnr=097) 0.01 K/ L 0.01-0.08 IMMATURE GRANULOCYTES-RELATIVE PERCENT (BEAKER) 0 % 0-1 (test pbgn=2663) BASIC METABOLIC [id number] 07:21:00 Test Item Value Reference Range Comments SODIUM (BEAKER) (test 135 meq/L 136-145 xsvj=377) POTASSIUM (BEAKER) (test 4.1 meq/L 3.5-5.1 zxsu=806) CHLORIDE (BEAKER) (test 102 meq/L 98-107 jslr=550) CO2 (BEAKER) (test 24 meq/L 22-29 fvma=245) BLOOD UREA NITROGEN 45 mg/dL 7-21 (BEAKER) (test xjte=926) CREATININE (BEAKER) (test 4.55 mg/dL 0.57-1.25 amrj=667) GLUCOSE RANDOM (BEAKER) 106 mg/dL 70-105 (test rrkf=247) CALCIUM (BEAKER) (test 7.8 mg/dL 8.4-10.2 etcg=595) EGFR (BEAKER) (test 10 mL/min/1.73 sq m ESTIMATED GFR IS NOT zfir=2160) ACCURATE CREATININE CLEARANCE IN PREDICTING GLOMERULAR FILTRATION RATE. ESTIMATED GFR IS NOT APPLICABLE FOR DIALYSIS PATIENTS. [id number] 07:08:00 Test Item Value Reference Range Comments MAGNESIUM (BEAKER) (test unfw=202) 1.8 mg/dL 1.6-2.6 CBC W/PLT COUNT & AUTO [id number] 06:53:00 Test Item Value Reference Range Comments WHITE BLOOD CELL COUNT (BEAKER) (test pwib=654) 2.9 K/ L 3.5-10.5 RED BLOOD CELL COUNT (BEAKER) (test chyx=967) 2.45 M/ L 3.93-5.22 HEMOGLOBIN (BEAKER) (test isvt=658) 8.0 GM/DL 11.2-15.7 HEMATOCRIT (BEAKER) (test muyb=510) 25.1 % 34.1-44.9 MEAN CORPUSCULAR VOLUME (BEAKER) (test pvcf=514) 102.4 fL 79.4-94.8 MEAN CORPUSCULAR HEMOGLOBIN (BEAKER) (test 32.7 pg 25.6-32.2 zvlp=135) MEAN CORPUSCULAR HEMOGLOBIN CONC (BEAKER) (test 31.9 GM/DL 32.2-35.5 gezz=359) RED CELL DISTRIBUTION WIDTH (BEAKER) (test 19.7 % 11.7-14.4 ruun=336) PLATELET COUNT (BEAKER) (test fmtq=239) 41 K/CU MM 150-450 MEAN PLATELET VOLUME (BEAKER) (test ckqi=817) 11.7 fL 9.4-12.3 NUCLEATED RED BLOOD CELLS (BEAKER) (test 0 /100 WBC 0-0 ejgw=755) NEUTROPHILS RELATIVE PERCENT (BEAKER) (test 75 % orem=338) LYMPHOCYTES RELATIVE PERCENT (BEAKER) (test 13 % gbps=714) MONOCYTES RELATIVE PERCENT (BEAKER) (test 11 % dbbd=897) EOSINOPHILS RELATIVE PERCENT (BEAKER) (test 0 % cvxz=727) BASOPHILS RELATIVE PERCENT (BEAKER) (test 0 % hhhe=999) NEUTROPHILS ABSOLUTE COUNT (BEAKER) (test 2.13 K/ L 1.56-6.13 rcvn=162) LYMPHOCYTES ABSOLUTE COUNT (BEAKER) (test 0.38 K/ L 1.18-3.74 tqjx=106) MONOCYTES ABSOLUTE COUNT (BEAKER) (test dafs=101) 0.32 K/ L 0.24-0.36 EOSINOPHILS ABSOLUTE COUNT (BEAKER) (test 0.01 K/ L 0.04-0.36 kzua=511) BASOPHILS ABSOLUTE COUNT (BEAKER) (test vhyy=453) 0.01 K/ L 0.01-0.08 IMMATURE GRANULOCYTES-RELATIVE PERCENT (BEAKER) 0 % 0-1 (test ybsm=4591) RAD, CHEST, 1 VIEW, NON [id number] 22:19:00Reason for exam:-> pneumoniaShould this be performed at the bedside?->YesFINAL REPORT History: Shortness of breath. Comparison: 03/21/2018 Findings: Asingle view of the chest is submitted. There [...] overlie the right chest. Signed: Lorne Monge MDReport Verified Date/Time: 03/28/2018 22:19:58 Reading Location: [address] Reading Room [id number] 05:56: 00 Test Item Value Reference Range Comments MAGNESIUM (BEAKER) (test ksrv=333) 1.9 mg/dL 1.6-2.6 COMPREHENSIVE METABOLIC [id number] 03:24:00 Test Item Value Reference Range Comments TOTAL PROTEIN (BEAKER) 5.9 gm/dL 6.0-8.3 (test ndhg=182) ALBUMIN (BEAKER) (test 2.5 g/dL 3.5-5.0 eudj=2426) ALKALINE PHOSPHATASE 42 U/L 40-150 (BEAKER) (test bjjo=961) BILIRUBIN TOTAL (BEAKER) 1.0 mg/dL 0.2-1.2 (test oeeh=932) SODIUM (BEAKER) (test 135 meq/L 136-145 wnez=833) POTASSIUM (BEAKER) (test 4.1 meq/L 3.5-5.1 nkzc=947) CHLORIDE (BEAKER) (test 102 meq/L 98-107 tiwj=437) CO2 (BEAKER) (test 26 meq/L 22-29 nbgz=113) BLOOD UREA NITROGEN 24 mg/dL 7-21 (BEAKER) (test pqzh=304) CREATININE (BEAKER) (test 3.02 mg/dL 0.57-1.25 jbnl=202) GLUCOSE RANDOM (BEAKER) 121 mg/dL 70-105 (test fqjl=526) CALCIUM (BEAKER) (test 8.2 mg/dL 8.4-10.2 yklt=204) AST (SGOT) (BEAKER) (test 35 U/L 5-34 auov=015) ALT (SGPT) (BEAKER) (test 13 U/L 6-55 ebyw=677) EGFR (BEAKER) (test 16 mL/min/1.73 sq m ESTIMATED GFR IS NOT qxmk=3823) ACCURATE CREATININE CLEARANCE IN PREDICTING GLOMERULAR FILTRATION RATE. ESTIMATED GFR IS NOT APPLICABLE FOR DIALYSIS PATIENTS. LACTIC ACID, VENOUS, WHOLE [id number] 03:15:00 Test Item Value Reference Range Comments LACTATE BLOOD VENOUS (2) (BEAKER) (test 1.1 mmol/L 0.5-2.2 sbab=4213) Effective 11/28/2015: Units/Reference Range ChangeNew: 0.5-2.2 mmol/L Previous: 5 -20 mg/dLCBC W/PLT COUNT & AUTO [id number] 02:57:00 Test Item Value Reference Range Comments WHITE BLOOD CELL COUNT (BEAKER) (test dktv=684) 2.7 K/ L 3.5-10.5 RED BLOOD CELL COUNT (BEAKER) (test bokc=931) 2.45 M/ L 3.93-5.22 HEMOGLOBIN (BEAKER) (test xqvh=553) 8.0 GM/DL 11.2-15.7 HEMATOCRIT (BEAKER) (test gsuf=216) 24.9 % 34.1-44.9 MEAN CORPUSCULAR VOLUME (BEAKER) (test anok=302) 101.6 fL 79.4-94.8 MEAN CORPUSCULAR HEMOGLOBIN (BEAKER) (test 32.7 pg 25.6-32.2 xbom=839) MEAN CORPUSCULAR HEMOGLOBIN CONC (BEAKER) (test 32.1 GM/DL 32.2-35.5 nnde=064) RED CELL DISTRIBUTION WIDTH (BEAKER) (test 20.7 % 11.7-14.4 nsft=209) PLATELET COUNT (BEAKER) (test tcuy=173) 44 K/CU MM 150-450 MEAN PLATELET VOLUME (BEAKER) (test mnmy=101) 11.9 fL 9.4-12.3 NUCLEATED RED BLOOD CELLS (BEAKER) (test 0 /100 WBC 0-0 eemy=339) NEUTROPHILS RELATIVE PERCENT (BEAKER) (test 75 % khtz=419) LYMPHOCYTES RELATIVE PERCENT (BEAKER) (test 12 % cght=431) MONOCYTES RELATIVE PERCENT (BEAKER) (test 12 % imhz=471) EOSINOPHILS RELATIVE PERCENT (BEAKER) (test 0 % khka=652) BASOPHILS RELATIVE PERCENT (BEAKER) (test 0 % oovz=944) NEUTROPHILS ABSOLUTE COUNT (BEAKER) (test 2.05 K/ L 1.56-6.13 enez=693) LYMPHOCYTES ABSOLUTE COUNT (BEAKER) (test 0.32 K/ L 1.18-3.74 pzhq=638) MONOCYTES ABSOLUTE COUNT (BEAKER) (test gmkd=261) 0.34 K/ L 0.24-0.36 EOSINOPHILS ABSOLUTE COUNT (BEAKER) (test 0.01 K/ L 0.04-0.36 phuk=959) BASOPHILS ABSOLUTE COUNT (BEAKER) (test muki=749) 0.01 K/ L 0.01-0.08 IMMATURE GRANULOCYTES-RELATIVE PERCENT (BEAKER) 0 % 0-1 (test lmbd=6945) POCT-GLUCOSE [id number] 02:55:00 Test Item Value Reference Range Comments POC-GLUCOSE METER (BEAKER) 148 mg/dL 70-110 TESTED AT [facility] [address] [facility] (test xxfl=4784) [facility] [address] BASIC METABOLIC [id number] 06:29:00 Test Item Value Reference Range Comments SODIUM (BEAKER) (test 129 meq/L 136-145 mnab=287) POTASSIUM (BEAKER) (test 3.5 meq/L 3.5-5.1 napc=732) CHLORIDE (BEAKER) (test 97 meq/L 98-107 wauy=188) CO2 (BEAKER) (test 25 meq/L 22-29 ddvu=616) BLOOD UREA NITROGEN 44 mg/dL 7-21 (BEAKER) (test fzpt=781) CREATININE (BEAKER) (test 4.23 mg/dL 0.57-1.25 sxvi=621) GLUCOSE RANDOM (BEAKER) 118 mg/dL 70-105 (test otum=956) CALCIUM (BEAKER) (test 7.0 mg/dL 8.4-10.2 icwv=387) EGFR (BEAKER) (test 11 mL/min/1.73 sq m ESTIMATED GFR IS NOT zwee=4946) ACCURATE CREATININE CLEARANCE IN PREDICTING GLOMERULAR FILTRATION RATE. ESTIMATED GFR IS NOT APPLICABLE FOR DIALYSIS PATIENTS. [id number] 06:27:00 Test Item Value Reference Range Comments MAGNESIUM (BEAKER) (test rqjn=376) 1.8 mg/dL 1.6-2.6 CBC W/PLT COUNT & AUTO [id number] 06:09:00 Test Item Value Reference Range Comments WHITE BLOOD CELL COUNT (BEAKER) (test djti=521) 3.1 K/ L 3.5-10.5 RED BLOOD CELL COUNT (BEAKER) (test lenk=852) 1.93 M/ L 3.93-5.22 HEMOGLOBIN (BEAKER) (test icig=739) 6.4 GM/DL 11.2-15.7 HEMATOCRIT (BEAKER) (test iipb=733) 20.6 % 34.1-44.9 MEAN CORPUSCULAR VOLUME (BEAKER) (test xuly=663) 106.7 fL 79.4-94.8 MEAN CORPUSCULAR HEMOGLOBIN (BEAKER) (test 33.2 pg 25.6-32.2 wctq=410) MEAN CORPUSCULAR HEMOGLOBIN CONC (BEAKER) (test 31.1 GM/DL 32.2-35.5 esuq=611) RED CELL DISTRIBUTION WIDTH (BEAKER) (test 20.5 % 11.7-14.4 buti=451) PLATELET COUNT (BEAKER) (test jdwc=038) 48 K/CU MM 150-450 MEAN PLATELET VOLUME (BEAKER) (test jyfw=369) 12.1 fL 9.4-12.3 NUCLEATED RED BLOOD CELLS (BEAKER) (test 0 /100 WBC 0-0 adiv=485) NEUTROPHILS RELATIVE PERCENT (BEAKER) (test 77 % szpq=322) LYMPHOCYTES RELATIVE PERCENT (BEAKER) (test 9 % ymih=702) MONOCYTES RELATIVE PERCENT (BEAKER) (test 13 % pgmu=457) EOSINOPHILS RELATIVE PERCENT (BEAKER) (test 0 % xrrz=034) BASOPHILS RELATIVE PERCENT (BEAKER) (test 0 % nypp=635) NEUTROPHILS ABSOLUTE COUNT (BEAKER) (test 2.42 K/ L 1.56-6.13 rsfn=563) LYMPHOCYTES ABSOLUTE COUNT (BEAKER) (test 0.27 K/ L 1.18-3.74 ioux=726) MONOCYTES ABSOLUTE COUNT (BEAKER) (test hgga=001) 0.39 K/ L 0.24-0.36 EOSINOPHILS ABSOLUTE COUNT (BEAKER) (test 0.01 K/ L 0.04-0.36 hkdn=198) BASOPHILS ABSOLUTE COUNT (BEAKER) (test wivt=464) 0.01 K/ L 0.01-0.08 IMMATURE GRANULOCYTES-RELATIVE PERCENT (BEAKER) 1 % 0-1 (test kbaj=1343) RAD, SHOULDER, COMPLETE (MIN 2 VIEWS), [id number] 17:48:00Reason for exam:-& gt;r/o FxShould this be performed at the bedside?->YesFINAL REPORT TECHNIQUE: Three views of the left shoulder dated 08/15/2017 HISTORY: FX COMPARISON: None. FINDINGS:No fracture or dislocation. Bones are normal in density. No jointspace narrowing. No bone erosion or soft tissue nodule seen. No radiodense foreign body or subcutaneous emphysema. Left-sided MediPort is partially visualized. IMPRESSION:No fracture or dislocation. Signed : Steve Torres MDReport Verified Date/Time: 03/26/2018 17:48:06 Reading Location: [facility] Radiology Reading Room [facility] METABOLIC [id number] 07:10:00 Test Item Value Reference Range Comments SODIUM (BEAKER) (test 133 meq/L 136-145 casw=005) POTASSIUM (BEAKER) (test 3.6 meq/L 3.5-5.1 wqvf=492) CHLORIDE (BEAKER) (test 101 meq/L 98-107 ypty=688) CO2 (BEAKER) (test 24 meq/L 22-29 mcex=226) BLOOD UREA NITROGEN 26 mg/dL 7-21 (BEAKER) (test zwku=806) CREATININE (BEAKER) (test 2.73 mg/dL 0.57-1.25 zrmx=943) GLUCOSE RANDOM (BEAKER) 117 mg/dL 70-105 (test hbzq=684) CALCIUM (BEAKER) (test 7.5 mg/dL 8.4-10.2 kqbv=603) EGFR (BEAKER) (test 18 mL/min/1.73 sq m ESTIMATED GFR IS NOT rqzv=0426) ACCURATE CREATININE CLEARANCE IN PREDICTING GLOMERULAR FILTRATION RATE. ESTIMATED GFR IS NOT APPLICABLE FOR DIALYSIS PATIENTS. [id number] 07:08:00 Test Item Value Reference Range Comments MAGNESIUM (BEAKER) (test kdil=406) 1.9 mg/dL 1.6-2.6 CBC W/PLT COUNT & AUTO [id number] 06:34:00 Test Item Value Reference Range Comments WHITE BLOOD CELL COUNT (BEAKER) (test hjmu=707) 3.1 K/ L 3.5-10.5 RED BLOOD CELL COUNT (BEAKER) (test cmfz=745) 2.18 M/ L 3.93-5.22 HEMOGLOBIN (BEAKER) (test fuhm=602) 7.2 GM/DL 11.2-15.7 HEMATOCRIT (BEAKER) (test xrhy=283) 23.1 % 34.1-44.9 MEAN CORPUSCULAR VOLUME (BEAKER) (test iquc=293) 106.0 fL 79.4-94.8 MEAN CORPUSCULAR HEMOGLOBIN (BEAKER) (test 33.0 pg 25.6-32.2 sqfj=266) MEAN CORPUSCULAR HEMOGLOBIN CONC (BEAKER) (test 31.2 GM/DL 32.2-35.5 yydi=050) RED CELL DISTRIBUTION WIDTH (BEAKER) (test 21.7 % 11.7-14.4 eflr=581) PLATELET COUNT (BEAKER) (test ojme=401) 45 K/CU MM 150-450 MEAN PLATELET VOLUME (BEAKER) (test bcjb=607) 11.8 fL 9.4-12.3 NUCLEATED RED BLOOD CELLS (BEAKER) (test 0 /100 WBC 0-0 ervw=287) NEUTROPHILS RELATIVE PERCENT (BEAKER) (test 83 % kqif=327) LYMPHOCYTES RELATIVE PERCENT (BEAKER) (test 7 % tnsk=087) MONOCYTES RELATIVE PERCENT (BEAKER) (test 10 % wdup=965) EOSINOPHILS RELATIVE PERCENT (BEAKER) (test 0 % wbef=265) BASOPHILS RELATIVE PERCENT (BEAKER) (test 0 % ehzf=602) NEUTROPHILS ABSOLUTE COUNT (BEAKER) (test 2.55 K/ L 1.56-6.13 rcbx=313) LYMPHOCYTES ABSOLUTE COUNT (BEAKER) (test 0.20 K/ L 1.18-3.74 uagj=672) MONOCYTES ABSOLUTE COUNT (BEAKER) (test shsh=763) 0.31 K/ L 0.24-0.36 EOSINOPHILS ABSOLUTE COUNT (BEAKER) (test 0.00 K/ L 0.04-0.36 dhui=548) BASOPHILS ABSOLUTE COUNT (BEAKER) (test uxoq=406) 0.01 K/ L 0.01-0.08 IMMATURE GRANULOCYTES-RELATIVE PERCENT (BEAKER) 1 % 0-1 (test tbtv=7333) CT, [id number] 02:57:00R/o retroperitoneal hematoma s/p kidney bxFINAL REPORT CT, ABDOMEN \\T\\ PELVIS, WITHOUT IV CONTRAST INDICATION: Anemia, unexplained, ambulatory, asymptomatic COMPARISON: CT abdomen and pelvis, 10/20/2017. TECHNIQUE:Noncontrast abdomen and pelvis CT. Coronal and sagittal reformatted images obtained. DOSE REDUCTION: Dose modulation, iterative reconstruction, and/or weight-based adjustment of the mA/ kV was utilized to reduce the radiation dose to as low as reasonably achievable. FINDINGS: Lower thorax: Moderate bilateralpleural effusions with adjacent passive atelectasis of the bilateral lower lobes. Relative hypodensity of blood pool related to the myometrium is consistent with history of anemia. Trace pericardial effusion. Liver: Limited evaluation given lack of intravenous contrast material however no definite parenchymal abnormalities.Gallbladder and biliary tree: Postsurgical changes of cholecystectomy.Pancreas: No acute findings.Spleen: Spleen is enlarged measuring 13 cm in greatest craniocaudal dimension.Adrenal Glands: No acute findings.Kidneys and ureters: Crescentic hyperdense fluid collection surrounding the inferior left renal pole suggestive of perinephric hematoma, post biopsy which extends into theleft paracolic gutter. No hydronephrosis or hydroureter. No nephrolithiasis.Bladder and reproductiveorgans: There is a Cote catheter present within the bladder with gas layering anteriorly. Post surgical changes of a hysterectomy. Stomach and Duodenum: Duodenum is somewhat distended proximally and distal decompression otherwise unremarkable. Is normal.Small and large intestine: Normal calibers.Appendix: Normal. Major vascular structures: Scattered calcifications in the normal caliber abdominal aorta.Peritoneum and retroperitoneum: Small volume simple free fluid layering dependently within the pelvis. Skeleton: Multiple new sclerotic lesions throughout the axial skeleton the largest of which is 8 mm in the T12 anterior vertebral body concerning for a sclerotic metastatic lesion.Additional findings: None. IMPRESSION: Small left perinephric hematoma status post renal biopsy. Multiple new sclerotic lesions throughout the axial skeleton the largest of which is in the T12 anterior vertebral body concerning for sclerotic metastatic lesions. Lateral bilateral pleural effusions with adjacent passive atelectasis of the bilateral lower lobes. Unchanged splenomegaly. Signed: Kellee Islas Verified Date/Time: 03/26/2018 02:57:14 Reading Location: [address] Reading Room Electronically signed by: KELLEE ISLAS MD on 2017 02:57 AMLACTATE DEHYDROGENASE (LDH)2018-03-25 14:50:00 Test Item Value Reference Range Comments LACTATE DEHYDROGENASE (BEAKER) (test mjcg=354) 722 U/L 125-220 PERIPHERAL BLOOD SMEAR - HOLD [id number] 14:37:00 Test Item Value Reference Range Comments PERIPHERAL SMEAR SAVE (BEAKER) (test rbmk=7684) saved BASIC METABOLIC [id number] 07:08:00 Test Item Value Reference Range Comments SODIUM (BEAKER) (test 127 meq/L 136-145 vdks=592) POTASSIUM (BEAKER) (test 4.3 meq/L 3.5-5.1 ekil=725) CHLORIDE (BEAKER) (test 94 meq/L 98-107 ievv=248) CO2 (BEAKER) (test 23 meq/L 22-29 xxyn=822) BLOOD UREA NITROGEN 56 mg/dL 7-21 (BEAKER) (test ttjy=102) CREATININE (BEAKER) (test 4.30 mg/dL 0.57-1.25 svgv=694) GLUCOSE RANDOM (BEAKER) 110 mg/dL 70-105 (test uykb=934) CALCIUM (BEAKER) (test 6.4 mg/dL 8.4-10.2 covl=876) EGFR (BEAKER) (test 11 mL/min/1.73 sq m ESTIMATED GFR IS NOT szut=3226) ACCURATE CREATININE CLEARANCE IN PREDICTING GLOMERULAR FILTRATION RATE. ESTIMATED GFR IS NOT APPLICABLE FOR DIALYSIS PATIENTS. [id number] 07:04:00 Test Item Value Reference Range Comments MAGNESIUM (BEAKER) (test rsgy=451) 1.9 mg/dL 1.6-2.6 CBC W/PLT COUNT & AUTO [id number] 06:27:00 Test Item Value Reference Range Comments WHITE BLOOD CELL COUNT (BEAKER) (test agfh=309) 5.3 K/ L 3.5-10.5 RED BLOOD CELL COUNT (BEAKER) (test byop=303) 2.39 M/ L 3.93-5.22 HEMOGLOBIN (BEAKER) (test qxiq=733) 7.9 GM/DL 11.2-15.7 HEMATOCRIT (BEAKER) (test jyvf=743) 25.0 % 34.1-44.9 MEAN CORPUSCULAR VOLUME (BEAKER) (test jxcb=441) 104.6 fL 79.4-94.8 MEAN CORPUSCULAR HEMOGLOBIN (BEAKER) (test 33.1 pg 25.6-32.2 uozm=695) MEAN CORPUSCULAR HEMOGLOBIN CONC (BEAKER) (test 31.6 GM/DL 32.2-35.5 peox=254) RED CELL DISTRIBUTION WIDTH (BEAKER) (test 22.2 % 11.7-14.4 fmtq=214) PLATELET COUNT (BEAKER) (test iukj=304) 60 K/CU MM 150-450 MEAN PLATELET VOLUME (BEAKER) (test umlu=864) 12.7 fL 9.4-12.3 NUCLEATED RED BLOOD CELLS (BEAKER) (test 0 /100 WBC 0-0 ayjn=368) NEUTROPHILS RELATIVE PERCENT (BEAKER) (test 85 % hdrf=638) LYMPHOCYTES RELATIVE PERCENT (BEAKER) (test 6 % ayed=410) MONOCYTES RELATIVE PERCENT (BEAKER) (test 9 % yeui=936) EOSINOPHILS RELATIVE PERCENT (BEAKER) (test 0 % czct=753) BASOPHILS RELATIVE PERCENT (BEAKER) (test 0 % vboi=275) NEUTROPHILS ABSOLUTE COUNT (BEAKER) (test 4.50 K/ L 1.56-6.13 kxod=170) LYMPHOCYTES ABSOLUTE COUNT (BEAKER) (test 0.30 K/ L 1.18-3.74 qrjw=995) MONOCYTES ABSOLUTE COUNT (BEAKER) (test mmwq=641) 0.46 K/ L 0.24-0.36 EOSINOPHILS ABSOLUTE COUNT (BEAKER) (test 0.01 K/ L 0.04-0.36 xdfj=876) BASOPHILS ABSOLUTE COUNT (BEAKER) (test zpab=328) 0.01 K/ L 0.01-0.08 IMMATURE GRANULOCYTES-RELATIVE PERCENT (BEAKER) 1 % 0-1 (test zokt=4094) HEPATITIS B [id number] 13:58:00 Test Item Value Reference Range Comments HEPATITIS B CORE TOTAL Nonreactive Nonreactive ANTIBODY (BEAKER) (test ladq=116) HEPATITIS B SURFACE ANTIBODY 133.0 mIU/mL <8.0 Testing performed at [facility] (BEAKER) (test aamo=896) Diagnostic Laboratory.See attach result for further interpretation. HEPATITIS B SURFACE ANTIGEN Nonreactive Nonreactive (2) (BEAKER) (test wzud=2489) U/S, BIOPSY, RENAL (KIDNEY)2018-03-24 12:59:00Reason for exam:->Acute kidney injury of unclear etiology.Reason for exam:->Pt to get DDAVP dose tomorrow morning, please perform biospy after that.FINAL REPORT HISTORY: Acute kidney injury of unknown [...] lidocaine was applied to the skin and deepsoft tissues. Under ultrasound guidance, a total of 3 biopsy samples were obtained utilizing an 18 gauge needle. Pathology was present during the procedure and specimens were analyzed for adequacy. Specimens were placed in formalin and were sent to pathology for analysis. Postprocedure sonogram did not demonstrate any complications. IMPRESSION: Successful ultrasound guided core random biopsy of thenative left kidney. Signed: Eduin Thompson MDReport Verified Date/Time: 03/24 12:59:37 Reading Location: [address] Ultrasound Reading Room BONE MARROW [id number] 11:03:00Bone Marrow Pathology Report Case: [id number] Authorizing Provider: Jordan Sultana MD Collected: 03/17/2018 1457 Ordering Location : [address] Med/Surg Received: 03/17/2018 1457 Pathologist: Doug Lee MD Specimens: A) - Iliac, Right B) - Iliac, Right C) -Iliac , Right This addendum is created to report the [facility] results for the Oncologic chromosomal study:There is no change to the original diagnosis.Oncologic Chromosomal Study is Normal.Please see attached scanned [facility] reports for details.Javier Lee MDAddmelum electronically signed by Doug Lee MD on 2017 at 11:03 AMBONE MARROW ASPIRATE, CLOT, AND DECALCIFIED BIOPSY:-VARIABLY CELLULAR (10-40%) MARROW WITH TRILINEAGE HEMATOPOIESIS-FOCAL STROMAL INJURY AND INCREASED ACTIVATED MACROPHAGES-ERYTHROID AND MEGAKARYOCYTICHYPERPLASIA WITH VARIABLE DYSPOIESIS-NO EVIDENCE OF METASTATIC DISEASE-NO EVIDENCE OF LYMPHOMA OR LEUKEMIA-INCREASED IRON STORES WITH NO RINGED SIDEROBLASTS-ONCOLOGIC CHROMOSOMAL ANALYSIS PENDING-SEE COMMENTPERIPHERAL BLOOD:-HYPOCHROMIC, NORMOCYTIC ANEMIA-THROMBOCYTOPENIA Signing Pathologist Direct Phone Line: [phone] signed by Doug Lee MD on 03/23/2018 at 5:08 PMPreliminary result electronically signed by Doug Lee MD on 03/23/2018 at 9 :08 AMPreliminary result electronically signed by Doug Lee MD on 03/22/2018 at 5:34 PMBone marrow biopsy evaluation was performedon a 53 year old woman with history of metastatic breast carcinoma and recent chemotherapy. Bone marrow evaluation demonstrates a variablycellular bone marrow with trilineage hematopoiesis and focal stromal injury. The aspirate differential demonstrates a normal M:E ratio(1.5). Dyspoiesis was notedin the erythroid and megakaryocytic series. Increased activated macrophages are present. A mild plasmacytosis is (4.5%) is noted, however morphology and immunohistochemical evaluation demonstrates a polyclonal plasma cell population with normal perivascular pattern. There in no evidence of lymphoma, leukemia or metastatic disease. The corresponding flow cytometry([id number]) of the aspirate did not demonstrate evidence of an aberrant B or T lymphocyte process and no increase in blasts. Overall, the stromal changes, dyspoiesis and activated macrophages can be seen with chemotherapy effect. No evidence of a neoplastic process is identified. Clinical correlation is recommend. Oncologic chromosomal studies are pending and the results will be submitted as an addendum when available. 34558; 10543; 63280 x 2; 07910; [id number] x 1; 98099 [id number] malignant neoplasm of breast with metastasis to other site and acute renal failureRight iliac crestSpecimen A consists of 3 bone marrow aspirates 13 aspirate slides, three bone marrow touch imprints and four peripheral blood smears.Specimen B is receivedin fixative and designated as "iliac right", is a red-brown blood clot ( 4.0 x 1.0 x 1.0 cm). The specimen is entirely submitted into B1.Specimen C is received in fixative and designated as "iliac right", and is a white-go bone core biopsy (2.0 cm in length and 0.2 cm in diameter). The specimen is entirely submitted into C1. MG/ew BONE MARROW ASPIRATE:QUALITY:Aspirate- AdequateTouch imprint- AdequateMARROW DIFFERENTIAL COUNT: Number of cells counted: 2002.00 % Blasts 4.50 % Promyelocytes 15.0 % Myelocytes/Metamyelocytes 22.5 % Bands/ Segmented granulocytes 1.00 % Eosinophils and precursors 0.00 % Basophils and precursors 32.0 % Erythroid precursors 13.0 % Lymphocytes 5.50 % Monocytes4.50% Plasma cellsMyeloid: Erythroid Ratio: 1.5 ; NormalBlasts: Not IncreasedErythropoiesis: Normal and complete maturation; mild dyspoiesis Myelopoiesis: Normal and complete maturationOther: Mildly increased plasma cells. Few activaged macrophages. Megakaryocytes: Present Stainable iron is increased basedon an iron stain performed on the aspirate smear. There are no ringed sideroblasts identified. BONE MARROW BIOPSY:Biopsy- AdequateClot- AdequateVariable Cellular ( 10-40 %)Cellular composition similar to aspirate smears and touch imprints. Normal proportions of myeloid and erythroid precursors present with complete maturation. Megakaryocytes are adequate in number. Variable dyspoiesis is identified with some having hypolobated ,hyperchromatic or "balloon" like nuclei. Moderate dyspoiesis. Other: No mass lesions Bony trabeculae: unremarkableStainable iron is increased based on an iron stain performed on the clot section. Pancytokeratin: NegativeCK7: NegativeCAM5.2: NegativeCD3: Highlights few dispersed T lymphocytes CD20: Highlight rare dispersed B lymphocytes. No significant clusters.CD34: Highlights rare dispersed blasts. No sheets or significant clusters. CD61: Highlights megakaryocytes which appear mildly [id number]: Demonstrates slightly more progenitor cells then CD34 due to staining of some erythroid precursors. CD138: Highlights few plasma cellsKappa: Highlights polyclonal plasma cells Lambda: Highlights polyclonal plasma cellsE-Cadherin: Highlights erythroid precursors which appear increased and primarily in clusters.PERIPHERAL BLOOD: RBCs: Hypochromic, normocytic. minimal polychromasia WBCs: Unremarkable Platelets: Normal appearance, Decreased, Occasional enlarged forms and Occasional giant formsThe following special studies were performed on this case and the interpretation is incorporated in the diagnostic report above:The immunohistochemistry test was developed and its performance characteristics determined by [facility]. It has not been cleared or approved by the U.S. Food and Drug Administration. The FDA has determined that such clearance or approval is not necessary. The test is used forclinical purposes. It should not be regarded as investigational or for research. This laboratory is certified under the Clinical Laboratory Improvement Amendments of 1988 (CLIA-88) as qualified to perform high complexity clinical laboratory testing.The following immunohistochemical stains were evaluated on the marrow biopsy and reported in the microscopic section: Pancytokeratin, CK7, CAM 5.2, CD3, CD20, CD34, CD61, CD117, CD138, [place], Lambda , E-Cadherin.CBC W/PLT COUNT & AUTO [id number] 06:18:00 Test Item Value Reference Range Comments WHITE BLOOD CELL COUNT (BEAKER) (test llwu=540) 5.0 K/ L 3.5-10.5 RED BLOOD CELL COUNT (BEAKER) (test oggb=121) 2.77 M/ L 3.93-5.22 HEMOGLOBIN (BEAKER) (test ocvc=449) 9.0 GM/DL 11.2-15.7 HEMATOCRIT (BEAKER) (test oyge=707) 29.8 % 34.1-44.9 MEAN CORPUSCULAR VOLUME (BEAKER) (test bkgw=049) 107.6 fL 79.4-94.8 MEAN CORPUSCULAR HEMOGLOBIN (BEAKER) (test 32.5 pg 25.6-32.2 lpfc=293) MEAN CORPUSCULAR HEMOGLOBIN CONC (BEAKER) (test 30.2 GM/DL 32.2-35.5 xaej=195) RED CELL DISTRIBUTION WIDTH (BEAKER) (test 23.6 % 11.7-14.4 bhij=600) PLATELET COUNT (BEAKER) (test difk=177) 61 K/CU MM 150-450 MEAN PLATELET VOLUME (BEAKER) (test gwuj=699) 11.2 fL 9.4-12.3 NUCLEATED RED BLOOD CELLS (BEAKER) (test 0 /100 WBC 0-0 xfwd=603) NEUTROPHILS RELATIVE PERCENT (BEAKER) (test 82 % kdbg=651) LYMPHOCYTES RELATIVE PERCENT (BEAKER) (test 7 % xodt=050) MONOCYTES RELATIVE PERCENT (BEAKER) (test 10 % dmfx=238) EOSINOPHILS RELATIVE PERCENT (BEAKER) (test 0 % ezus=186) BASOPHILS RELATIVE PERCENT (BEAKER) (test 0 % puiy=065) NEUTROPHILS ABSOLUTE COUNT (BEAKER) (test 4.14 K/ L 1.56-6.13 zzhq=538) LYMPHOCYTES ABSOLUTE COUNT (BEAKER) (test 0.35 K/ L 1.18-3.74 smii=500) MONOCYTES ABSOLUTE COUNT (BEAKER) (test hiek=507) 0.49 K/ L 0.24-0.36 EOSINOPHILS ABSOLUTE COUNT (BEAKER) (test 0.02 K/ L 0.04-0.36 ujwv=069) BASOPHILS ABSOLUTE COUNT (BEAKER) (test mmwf=247) 0.01 K/ L 0.01-0.08 IMMATURE GRANULOCYTES-RELATIVE PERCENT (BEAKER) 0 % 0-1 (test lnmh=3773) BASIC METABOLIC [id number] 05:46:00 Test Item Value Reference Range Comments SODIUM (BEAKER) (test 129 meq/L 136-145 dmfq=032) POTASSIUM (BEAKER) (test 3.9 meq/L 3.5-5.1 kvpg=106) CHLORIDE (BEAKER) (test 98 meq/L 98-107 zlfz=447) CO2 (BEAKER) (test 22 meq/L 22-29 ulem=815) BLOOD UREA NITROGEN 42 mg/dL 7-21 (BEAKER) (test ifji=811) CREATININE (BEAKER) (test 3.25 mg/dL 0.57-1.25 oizw=915) GLUCOSE RANDOM (BEAKER) 101 mg/dL 70-105 (test bhfm=917) CALCIUM (BEAKER) (test 7.0 mg/dL 8.4-10.2 cuhb=297) EGFR (BEAKER) (test 15 mL/min/1.73 sq m ESTIMATED GFR IS NOT dkfi=7413) ACCURATE CREATININE CLEARANCE IN PREDICTING GLOMERULAR FILTRATION RATE. ESTIMATED GFR IS NOT APPLICABLE FOR DIALYSIS PATIENTS. [id number] 05:40:00 Test Item Value Reference Range Comments MAGNESIUM (BEAKER) (test 2.1 mg/dL 1.6-2.6 Specimen slightly hemolyzed lptb=638) BASIC METABOLIC [id number] 23:13:00 Test Item Value Reference Range Comments SODIUM (BEAKER) (test 133 meq/L 136-145 sjxa=645) POTASSIUM (BEAKER) (test 3.6 meq/L 3.5-5.1 jzmx=025) CHLORIDE (BEAKER) (test 98 meq/L 98-107 mhex=855) CO2 (BEAKER) (test 26 meq/L 22-29 sefa=264) BLOOD UREA NITROGEN 42 mg/dL 7-21 (BEAKER) (test bmul=052) CREATININE (BEAKER) (test 3.20 mg/dL 0.57-1.25 ymtm=905) GLUCOSE RANDOM (BEAKER) 113 mg/dL 70-105 (test xbbn=421) CALCIUM (BEAKER) (test 6.9 mg/dL 8.4-10.2 pqfx=347) EGFR (BEAKER) (test 15 mL/min/1.73 sq m ESTIMATED GFR IS NOT tebh=7796) ACCURATE CREATININE CLEARANCE IN PREDICTING GLOMERULAR FILTRATION RATE. ESTIMATED GFR IS NOT APPLICABLE FOR DIALYSIS PATIENTS. BASIC METABOLIC [id number] 18:45:00 Test Item Value Reference Range Comments SODIUM (BEAKER) (test 134 meq/L 136-145 lssw=012) POTASSIUM (BEAKER) (test 3.8 meq/L 3.5-5.1 xduz=688) CHLORIDE (BEAKER) (test 100 meq/L 98-107 suxc=724) CO2 (BEAKER) (test 25 meq/L 22-29 vuvs=151) BLOOD UREA NITROGEN 37 mg/dL 7-21 (BEAKER) (test dutm=991) CREATININE (BEAKER) (test 2.98 mg/dL 0.57-1.25 fsya=294) GLUCOSE RANDOM (BEAKER) 131 mg/dL 70-105 (test xtjk=717) CALCIUM (BEAKER) (test 7.3 mg/dL 8.4-10.2 gihe=023) EGFR (BEAKER) (test 16 mL/min/1.73 sq m ESTIMATED GFR IS NOT piup=3066) ACCURATE CREATININE CLEARANCE IN PREDICTING GLOMERULAR FILTRATION RATE. ESTIMATED GFR IS NOT APPLICABLE FOR DIALYSIS PATIENTS. POCT-GLUCOSE [id number] 10:29:00 Test Item Value Reference Range Comments POC-GLUCOSE METER (BEAKER) 93 mg/dL 70-110 TESTED AT [facility] [address] [facility] (test jpvd=4284) [facility] [address] BASIC METABOLIC [id number] 07:02:00 Test Item Value Reference Range Comments SODIUM (BEAKER) (test 133 meq/L 136-145 tfqa=850) POTASSIUM (BEAKER) (test 3.7 meq/L 3.5-5.1 srgy=419) CHLORIDE (BEAKER) (test 97 meq/L 98-107 yhdz=948) CO2 (BEAKER) (test 25 meq/L 22-29 aoli=458) BLOOD UREA NITROGEN 70 mg/dL 7-21 (BEAKER) (test kzlz=336) CREATININE (BEAKER) (test 4.25 mg/dL 0.57-1.25 mowt=727) GLUCOSE RANDOM (BEAKER) 93 mg/dL 70-105 (test begc=134) CALCIUM (BEAKER) (test 7.2 mg/dL 8.4-10.2 osul=753) EGFR (BEAKER) (test 11 mL/min/1.73 sq m ESTIMATED GFR IS NOT oero=5787) ACCURATE CREATININE CLEARANCE IN PREDICTING GLOMERULAR FILTRATION RATE. ESTIMATED GFR IS NOT APPLICABLE FOR DIALYSIS PATIENTS. [id number] 07:01:00 Test Item Value Reference Range Comments MAGNESIUM (BEAKER) (test oyww=331) 2.2 mg/dL 1.6-2.6 CBC W/PLT COUNT & AUTO [id number] 06:36:00 Test Item Value Reference Range Comments WHITE BLOOD CELL COUNT (BEAKER) (test zber=705) 6.2 K/ L 3.5-10.5 RED BLOOD CELL COUNT (BEAKER) (test cmtc=811) 2.89 M/ L 3.93-5.22 HEMOGLOBIN (BEAKER) (test pvcz=565) 9.5 GM/DL 11.2-15.7 HEMATOCRIT (BEAKER) (test xrgg=838) 31.1 % 34.1-44.9 MEAN CORPUSCULAR VOLUME (BEAKER) (test nypu=287) 107.6 fL 79.4-94.8 MEAN CORPUSCULAR HEMOGLOBIN (BEAKER) (test 32.9 pg 25.6-32.2 wyxd=076) MEAN CORPUSCULAR HEMOGLOBIN CONC (BEAKER) (test 30.5 GM/DL 32.2-35.5 ahvb=105) RED CELL DISTRIBUTION WIDTH (BEAKER) (test 24.9 % 11.7-14.4 rtgq=956) PLATELET COUNT (BEAKER) (test hwba=770) 73 K/CU MM 150-450 MEAN PLATELET VOLUME (BEAKER) (test pbat=232) 13.4 fL 9.4-12.3 NUCLEATED RED BLOOD CELLS (BEAKER) (test 0 /100 WBC 0-0 kiav=533) NEUTROPHILS RELATIVE PERCENT (BEAKER) (test 87 % ffcy=382) LYMPHOCYTES RELATIVE PERCENT (BEAKER) (test 5 % vvjv=930) MONOCYTES RELATIVE PERCENT (BEAKER) (test 7 % irfa=458) EOSINOPHILS RELATIVE PERCENT (BEAKER) (test 0 % duxh=065) BASOPHILS RELATIVE PERCENT (BEAKER) (test 0 % htgt=269) NEUTROPHILS ABSOLUTE COUNT (BEAKER) (test 5.36 K/ L 1.56-6.13 ucmq=057) LYMPHOCYTES ABSOLUTE COUNT (BEAKER) (test 0.31 K/ L 1.18-3.74 qkie=323) MONOCYTES ABSOLUTE COUNT (BEAKER) (test kpvy=361) 0.44 K/ L 0.24-0.36 EOSINOPHILS ABSOLUTE COUNT (BEAKER) (test 0.01 K/ L 0.04-0.36 snff=058) BASOPHILS ABSOLUTE COUNT (BEAKER) (test tfbu=854) 0.00 K/ L 0.01-0.08 IMMATURE GRANULOCYTES-RELATIVE PERCENT (BEAKER) 1 % 0-1 (test knrk=8529) [id number] 06:35:00 Test Item Value Reference Range Comments PROTIME (BEAKER) (test heqw=663) 15.3 seconds 11.7-14.7 INR (BEAKER) (test fyka=310) 1.2 <=5.9 PARTIAL THROMBOPLASTIN TIME (BEAKER) (test 29.7 seconds 22.5-36.0 odhe=345) RECOMMENDED COUMADIN/WARFARIN INR THERAPY RANGESSTANDARD DOSE: 2.0 - 3.0 Includes: PROPHYLAXIS forvenous thrombosis, systemic embolization; TREATMENT for venous thrombosis and/or pulmonary embolus.HIGH RISK: Target INR is 2.5-3.5 for patients with mechanical heart valves.[id number] 23:55:00 Test Item Value Reference Range Comments PHOSPHORUS (BEAKER) (test wekh=679) 6.1 mg/dL 2.3-4.7 BASIC METABOLIC [id number] 23:55:00 Test Item Value Reference Range Comments SODIUM (BEAKER) (test 135 meq/L 136-145 psbd=859) POTASSIUM (BEAKER) (test 3.6 meq/L 3.5-5.1 vhue=918) CHLORIDE (BEAKER) (test 97 meq/L 98-107 ekpy=738) CO2 (BEAKER) (test 26 meq/L 22-29 gdte=704) BLOOD UREA NITROGEN 63 mg/dL 7-21 (BEAKER) (test ghjf=795) CREATININE (BEAKER) (test 3.99 mg/dL 0.57-1.25 ayqk=394) GLUCOSE RANDOM (BEAKER) 121 mg/dL 70-105 (test jbrf=030) CALCIUM (BEAKER) (test 7.2 mg/dL 8.4-10.2 gmgh=731) EGFR (BEAKER) (test 12 mL/min/1.73 sq m ESTIMATED GFR IS NOT ibzl=7029) ACCURATE CREATININE CLEARANCE IN PREDICTING GLOMERULAR FILTRATION RATE. ESTIMATED GFR IS NOT APPLICABLE FOR DIALYSIS PATIENTS. BASIC METABOLIC [id number] 17:30:00 Test Item Value Reference Range Comments SODIUM (BEAKER) (test 137 meq/L 136-145 xhbi=693) POTASSIUM (BEAKER) (test 3.7 meq/L 3.5-5.1 zlzp=459) CHLORIDE (BEAKER) (test 98 meq/L 98-107 yinr=777) CO2 (BEAKER) (test 27 meq/L 22-29 ikev=495) BLOOD UREA NITROGEN 53 mg/dL 7-21 (BEAKER) (test eyob=080) CREATININE (BEAKER) (test 3.30 mg/dL 0.57-1.25 ehos=172) GLUCOSE RANDOM (BEAKER) 105 mg/dL 70-105 (test hure=669) CALCIUM (BEAKER) (test 8.1 mg/dL 8.4-10.2 hoqa=777) EGFR (BEAKER) (test 15 mL/min/1.73 sq m ESTIMATED GFR IS NOT ukdd=5179) ACCURATE CREATININE CLEARANCE IN PREDICTING GLOMERULAR FILTRATION RATE. ESTIMATED GFR IS NOT APPLICABLE FOR DIALYSIS PATIENTS. HEPATIC FUNCTION [id number] 17:26:00 Test Item Value Reference Range Comments TOTAL PROTEIN (BEAKER) (test rypj=346) 6.7 gm/dL 6.0-8.3 ALBUMIN (BEAKER) (test ibgh=5980) 3.1 g/dL 3.5-5.0 BILIRUBIN TOTAL (BEAKER) (test hzms=935) 1.6 mg/dL 0.2-1.2 BILIRUBIN DIRECT (BEAKER) (test pasq=194) 0.7 mg/dL 0.1-0.5 ALKALINE PHOSPHATASE (BEAKER) (test iuet=636) 63 U/L 40-150 AST (SGOT) (BEAKER) (test puef=507) 48 U/L 5-34 ALT (SGPT) (BEAKER) (test gkqv=866) 24 U/L 6-55 BASIC METABOLIC [id number] 15:15:00 Test Item Value Reference Range Comments SODIUM (BEAKER) (test 134 meq/L 136-145 cmse=206) POTASSIUM (BEAKER) (test 4.1 meq/L 3.5-5.1 gtzo=284) CHLORIDE (BEAKER) (test 94 meq/L 98-107 qocq=316) CO2 (BEAKER) (test 23 meq/L 22-29 asio=634) BLOOD UREA NITROGEN 112 mg/dL 7-21 (BEAKER) (test jjik=926) CREATININE (BEAKER) (test 5.93 mg/dL 0.57-1.25 emwk=802) GLUCOSE RANDOM (BEAKER) 104 mg/dL 70-105 (test wigl=009) CALCIUM (BEAKER) (test 7.2 mg/dL 8.4-10.2 pegy=040) EGFR (BEAKER) (test 7 mL/min/1.73 sq m ESTIMATED GFR IS NOT xgnx=3864) ACCURATE CREATININE CLEARANCE IN PREDICTING GLOMERULAR FILTRATION RATE. ESTIMATED GFR IS NOT APPLICABLE FOR DIALYSIS PATIENTS. URINE IMMUNOFIXATION, [id number] 15:09:00 Test Item Value Reference Range Comments PROTEIN, URINE (BEAKER) (test 412 mg/dL 0-14 kdrr=7646) ALBUMIN URINE ELP (BEAKER) 56.3 % (test balg=7356) GAMMA GLOBULIN URINE (BEAKER) 43.7 % (test sqqx=9198) URINE JUDSON ID-[id number] (BEAKER) No monoclonal proteins or (test jluy=7910) monoclonal free light chains detected. [id number] (BEAKER) Barbie Mccollum MD (test szbf=3853) (electronic signature) URINE PROTEIN ELECTROPHORESIS, [id number] 13:02:00 Test Item Value Reference Range Comments PROTEIN, URINE (BEAKER) (test 412 mg/dL 0-14 krkx=4545) ALBUMIN URINE ELP (BEAKER) 56.3 % (test bksn=0068) GAMMA GLOBULIN URINE (BEAKER) 43.7 % (test mdgc=6813) UPEP, ID-438 (BEAKER) (test No monoclonal bands detected. inkw=8599) [id number] (BEAKER) Barbie Mccollum MD (test jzhh=5703) (electronic signature) [id number] 08:19:00 Test Item Value Reference Range Comments HAPTOGLOBIN (BEAKER) (test bnxt=770) < mg/dL 14-258 BASIC METABOLIC [id number] 07:44:00 Test Item Value Reference Range Comments SODIUM (BEAKER) (test 133 meq/L 136-145 lohm=604) POTASSIUM (BEAKER) (test 4.4 meq/L 3.5-5.1 hnet=092) CHLORIDE (BEAKER) (test 95 meq/L 98-107 kmmr=186) CO2 (BEAKER) (test 23 meq/L 22-29 zbgu=769) BLOOD UREA NITROGEN 108 mg/dL 7-21 (BEAKER) (test ffgf=963) CREATININE (BEAKER) (test 5.79 mg/dL 0.57-1.25 cnim=306) GLUCOSE RANDOM (BEAKER) 107 mg/dL 70-105 (test bbtk=522) CALCIUM (BEAKER) (test 7.4 mg/dL 8.4-10.2 hfrs=582) EGFR (BEAKER) (test 8 mL/min/1.73 sq m ESTIMATED GFR IS NOT uigj=9182) ACCURATE CREATININE CLEARANCE IN PREDICTING GLOMERULAR FILTRATION RATE. ESTIMATED GFR IS NOT APPLICABLE FOR DIALYSIS PATIENTS. [id number] 07:29:00 Test Item Value Reference Range Comments MAGNESIUM (BEAKER) (test wlpo=276) 2.6 mg/dL 1.6-2.6 LACTATE DEHYDROGENASE (LDH)2018-03-22 07:29:00 Test Item Value Reference Range Comments LACTATE DEHYDROGENASE (BEAKER) (test ztfb=895) 812 U/L 125-220 CBC W/PLT COUNT & AUTO [id number] 07:15:00 Test Item Value Reference Range Comments WHITE BLOOD CELL COUNT (BEAKER) (test brht=992) 5.5 K/ L 3.5-10.5 RED BLOOD CELL COUNT (BEAKER) (test dmts=692) 2.90 M/ L 3.93-5.22 HEMOGLOBIN (BEAKER) (test ghoj=650) 9.5 GM/DL 11.2-15.7 HEMATOCRIT (BEAKER) (test lxaq=363) 30.7 % 34.1-44.9 MEAN CORPUSCULAR VOLUME (BEAKER) (test chhm=799) 105.9 fL 79.4-94.8 MEAN CORPUSCULAR HEMOGLOBIN (BEAKER) (test 32.8 pg 25.6-32.2 ugwb=059) MEAN CORPUSCULAR HEMOGLOBIN CONC (BEAKER) (test 30.9 GM/DL 32.2-35.5 otyt=919) RED CELL DISTRIBUTION WIDTH (BEAKER) (test 24.7 % 11.7-14.4 qpns=460) PLATELET COUNT (BEAKER) (test iksv=364) 56 K/CU MM 150-450 MEAN PLATELET VOLUME (BEAKER) (test ujhn=357) 11.6 fL 9.4-12.3 NUCLEATED RED BLOOD CELLS (BEAKER) (test 0 /100 WBC 0-0 fxnb=394) NEUTROPHILS RELATIVE PERCENT (BEAKER) (test 83 % iure=791) LYMPHOCYTES RELATIVE PERCENT (BEAKER) (test 9 % chcy=931) MONOCYTES RELATIVE PERCENT (BEAKER) (test 7 % fimg=061) EOSINOPHILS RELATIVE PERCENT (BEAKER) (test 0 % lcsh=935) BASOPHILS RELATIVE PERCENT (BEAKER) (test 0 % gfdf=566) NEUTROPHILS ABSOLUTE COUNT (BEAKER) (test 4.58 K/ L 1.56-6.13 jtfz=287) LYMPHOCYTES ABSOLUTE COUNT (BEAKER) (test 0.49 K/ L 1.18-3.74 ntdn=378) MONOCYTES ABSOLUTE COUNT (BEAKER) (test lloq=862) 0.39 K/ L 0.24-0.36 EOSINOPHILS ABSOLUTE COUNT (BEAKER) (test 0.00 K/ L 0.04-0.36 sjiu=547) BASOPHILS ABSOLUTE COUNT (BEAKER) (test dtgx=399) 0.01 K/ L 0.01-0.08 IMMATURE GRANULOCYTES-RELATIVE PERCENT (BEAKER) 1 % 0-1 (test gssz=7809) RETICULOCYTE [id number] 07:08:00 Test Item Value Reference Range Comments RETICULOCYTE COUNT PCT (BEAKER) (test hwew=242) 13.4 % 0.5-1.7 [id number] 07:07:00 Test Item Value Reference Range Comments PROTIME (BEAKER) (test jhqw=929) 16.2 seconds 11.7-14.7 INR (BEAKER) (test qyqk=295) 1.3 <=5.9 PARTIAL THROMBOPLASTIN TIME (BEAKER) (test 31.2 seconds 22.5-36.0 fscd=132) RECOMMENDED COUMADIN/WARFARIN INR THERAPY RANGESSTANDARD DOSE: 2.0 - 3.0 Includes: PROPHYLAXIS forvenous thrombosis, systemic embolization; TREATMENT for venous thrombosis and/or pulmonary embolus.HIGH RISK: Target INR is 2.5-3.5 for patients with mechanical heart valves.PROTHROMBIN [id number] 07:06: 00 Test Item Value Reference Range Comments PROTIME (BEAKER) (test pyut=297) 16.2 seconds 11.7-14.7 INR (BEAKER) (test awmg=540) 1.3 <=5.9 RECOMMENDED COUMADIN/WARFARIN INR THERAPY RANGESSTANDARD DOSE: 2.0 - 3.0 Includes: PROPHYLAXIS forvenous thrombosis, systemic embolization; TREATMENT for venous thrombosis and/or pulmonary embolus.HIGH RISK: Target INR is 2.5-3.5 for patients with mechanical heart valves.BASIC METABOLIC [id number] 22:18: 00 Test Item Value Reference Range Comments SODIUM (BEAKER) (test 132 meq/L 136-145 psqx=253) POTASSIUM (BEAKER) (test 4.7 meq/L 3.5-5.1 aqwx=523) CHLORIDE (BEAKER) (test 95 meq/L 98-107 wuqb=994) CO2 (BEAKER) (test 22 meq/L 22-29 tdpx=571) BLOOD UREA NITROGEN 99 mg/dL 7-21 (BEAKER) (test irsz=518) CREATININE (BEAKER) (test 5.57 mg/dL 0.57-1.25 agfn=922) GLUCOSE RANDOM (BEAKER) 139 mg/dL 70-105 (test exaw=809) CALCIUM (BEAKER) (test 7.3 mg/dL 8.4-10.2 rpgt=690) EGFR (BEAKER) (test 8 mL/min/1.73 sq m ESTIMATED GFR IS NOT qfgu=7174) ACCURATE CREATININE CLEARANCE IN PREDICTING GLOMERULAR FILTRATION RATE. ESTIMATED GFR IS NOT APPLICABLE FOR DIALYSIS PATIENTS. RAD, CHEST, 1 VIEW, NON [id number] 18:54:00Reason for exam:->cough, chest congestionShould this be performed at the bedside?->YesFINAL REPORT INDICATION: cough, chest congestion TECHNIQUE: Chest radiograph,single view, portable technique. FINDINGS / IMPRESSION: There is suggestion of partial atelectasis in the left lower lobe. No discrete consolidation is demonstrated. Multilumen right internal jugular line and left chest port appears in good position. Signed: Weston Chavez MDReport Verified Date/Time: 03/21/2018 18:54:34 Reading Location: [facility] C013Y CT Body Reading Room BASI METABOLIC [id number] 16:55:00 Test Item Value Reference Range Comments SODIUM (BEAKER) (test 135 meq/L 136-145 jasi=825) POTASSIUM (BEAKER) (test 5.1 meq/L 3.5-5.1 fayw=218) CHLORIDE (BEAKER) (test 97 meq/L 98-107 ivje=184) CO2 (BEAKER) (test 20 meq/L 22-29 gwlu=290) BLOOD UREA NITROGEN 100 mg/dL 7-21 (BEAKER) (test flsc=837) CREATININE (BEAKER) (test 5.45 mg/dL 0.57-1.25 otae=081) GLUCOSE RANDOM (BEAKER) 133 mg/dL 70-105 (test pobl=279) CALCIUM (BEAKER) (test 7.7 mg/dL 8.4-10.2 dhdo=677) EGFR (BEAKER) (test 8 mL/min/1.73 sq m ESTIMATED GFR IS NOT qxiu=7461) ACCURATE CREATININE CLEARANCE IN PREDICTING GLOMERULAR FILTRATION RATE. ESTIMATED GFR IS NOT APPLICABLE FOR DIALYSIS PATIENTS. BLOOD [id number] 13:00:00 Test Item Value Reference Range Comments CULTURE (BEAKER) (test nelr=6770) No growth in 5 days BASIC METABOLIC [id number] 12:42:00 Test Item Value Reference Range Comments SODIUM (BEAKER) (test 134 meq/L 136-145 pybp=946) POTASSIUM (BEAKER) (test 4.7 meq/L 3.5-5.1 dikp=372) CHLORIDE (BEAKER) (test 95 meq/L 98-107 eyhy=480) CO2 (BEAKER) (test 21 meq/L 22-29 ctmd=686) BLOOD UREA NITROGEN 97 mg/dL 7-21 (BEAKER) (test htyz=565) CREATININE (BEAKER) (test 5.18 mg/dL 0.57-1.25 nuxr=019) GLUCOSE RANDOM (BEAKER) 121 mg/dL 70-105 (test qsep=260) CALCIUM (BEAKER) (test 7.9 mg/dL 8.4-10.2 vxjw=797) EGFR (BEAKER) (test 9 mL/min/1.73 sq m ESTIMATED GFR IS NOT ywhe=7384) ACCURATE CREATININE CLEARANCE IN PREDICTING GLOMERULAR FILTRATION RATE. ESTIMATED GFR IS NOT APPLICABLE FOR DIALYSIS PATIENTS. BASIC METABOLIC [id number] 06:21:00 Test Item Value Reference Range Comments SODIUM (BEAKER) (test 133 meq/L 136-145 ukbn=618) POTASSIUM (BEAKER) (test 4.6 meq/L 3.5-5.1 gmhw=105) CHLORIDE (BEAKER) (test 97 meq/L 98-107 rkzc=422) CO2 (BEAKER) (test 18 meq/L 22-29 mqws=371) BLOOD UREA NITROGEN 89 mg/dL 7-21 (BEAKER) (test vuoa=940) CREATININE (BEAKER) (test 4.86 mg/dL 0.57-1.25 mihg=993) GLUCOSE RANDOM (BEAKER) 117 mg/dL 70-105 (test xbxn=518) CALCIUM (BEAKER) (test 7.9 mg/dL 8.4-10.2 ppqg=008) EGFR (BEAKER) (test 9 mL/min/1.73 sq m ESTIMATED GFR IS NOT turn=2235) ACCURATE CREATININE CLEARANCE IN PREDICTING GLOMERULAR FILTRATION RATE. ESTIMATED GFR IS NOT APPLICABLE FOR DIALYSIS PATIENTS. [id number] 05:54:00 Test Item Value Reference Range Comments MAGNESIUM (BEAKER) (test mdtg=685) 2.4 mg/dL 1.6-2.6 CBC (HEMOGRAM ONLY)2018-03-21 05:23:00 Test Item Value Reference Range Comments WHITE BLOOD CELL COUNT (BEAKER) (test pzeh=429) 7.6 K/ L 3.5-10.5 RED BLOOD CELL COUNT (BEAKER) (test pwli=486) 3.13 M/ L 3.93-5.22 HEMOGLOBIN (BEAKER) (test idgm=240) 10.1 GM/DL 11.2-15.7 HEMATOCRIT (BEAKER) (test fqug=827) 32.1 % 34.1-44.9 MEAN CORPUSCULAR VOLUME (BEAKER) (test rbkb=746) 102.6 fL 79.4-94.8 MEAN CORPUSCULAR HEMOGLOBIN (BEAKER) (test 32.3 pg 25.6-32.2 pyqc=975) MEAN CORPUSCULAR HEMOGLOBIN CONC (BEAKER) (test 31.5 GM/DL 32.2-35.5 icnm=998) RED CELL DISTRIBUTION WIDTH (BEAKER) (test 24.0 % 11.7-14.4 ueqk=007) PLATELET COUNT (BEAKER) (test ewhs=739) 68 K/CU MM 150-450 MEAN PLATELET VOLUME (BEAKER) (test uhaf=716) 14.4 fL 9.4-12.3 NUCLEATED RED BLOOD CELLS (BEAKER) (test 1 /100 WBC 0-0 qkcr=875) BASIC METABOLIC [id number] 00:47:00 Test Item Value Reference Range Comments SODIUM (BEAKER) (test 134 meq/L 136-145 yxcn=274) POTASSIUM (BEAKER) (test 4.7 meq/L 3.5-5.1 ckpr=117) CHLORIDE (BEAKER) (test 97 meq/L 98-107 ehdg=998) CO2 (BEAKER) (test 22 meq/L 22-29 tlws=671) BLOOD UREA NITROGEN 86 mg/dL 7-21 (BEAKER) (test gnfk=259) CREATININE (BEAKER) (test 4.81 mg/dL 0.57-1.25 vdea=535) GLUCOSE RANDOM (BEAKER) 115 mg/dL 70-105 (test ydqv=442) CALCIUM (BEAKER) (test 7.9 mg/dL 8.4-10.2 fdzx=677) EGFR (BEAKER) (test 9 mL/min/1.73 sq m ESTIMATED GFR IS NOT kyaz=0059) ACCURATE CREATININE CLEARANCE IN PREDICTING GLOMERULAR FILTRATION RATE. ESTIMATED GFR IS NOT APPLICABLE FOR DIALYSIS PATIENTS. HEPATITIS C [id number] 13:26:00 Test Item Value Reference Range Comments HEPATITIS C ANTIBODY (BEAKER) (test kevy=934) Nonreactive Nonreactive BASIC METABOLIC [id number] 13:08:00 Test Item Value Reference Range Comments SODIUM (BEAKER) (test 133 meq/L 136-145 fweu=027) POTASSIUM (BEAKER) (test 5.0 meq/L 3.5-5.1 lwxa=079) CHLORIDE (BEAKER) (test 92 meq/L 98-107 iwnn=204) CO2 (BEAKER) (test 21 meq/L 22-29 wnhz=083) BLOOD UREA NITROGEN 123 mg/dL 7-21 (BEAKER) (test rljq=395) CREATININE (BEAKER) (test 5.93 mg/dL 0.57-1.25 ejhw=001) GLUCOSE RANDOM (BEAKER) 108 mg/dL 70-105 (test xjtg=280) CALCIUM (BEAKER) (test 8.1 mg/dL 8.4-10.2 pzbq=354) EGFR (BEAKER) (test 7 mL/min/1.73 sq m ESTIMATED GFR IS NOT exek=8737) ACCURATE CREATININE CLEARANCE IN PREDICTING GLOMERULAR FILTRATION RATE. ESTIMATED GFR IS NOT APPLICABLE FOR DIALYSIS PATIENTS. T4, [id number] 09:25:00 Test Item Value Reference Range Comments FREE T4 (BEAKER) (test mrsk=550) 0.67 ng/dL 0.70-1.48 TSH/FREE T4 IF [id number] 09:04:00 Test Item Value Reference Range Comments THYROID STIMULATING HORMONE (BEAKER) (test 7.12 uIU/mL 0.35-4.94 dfba=939) BASIC METABOLIC [id number] 07:17:00 Test Item Value Reference Range Comments SODIUM (BEAKER) (test 132 meq/L 136-145 kbqd=522) POTASSIUM (BEAKER) (test 4.6 meq/L 3.5-5.1 ztnn=441) CHLORIDE (BEAKER) (test 92 meq/L 98-107 ixqk=337) CO2 (BEAKER) (test 22 meq/L 22-29 jiwf=043) BLOOD UREA NITROGEN 119 mg/dL 7-21 (BEAKER) (test tbvi=014) CREATININE (BEAKER) (test 5.68 mg/dL 0.57-1.25 kgaq=340) GLUCOSE RANDOM (BEAKER) 108 mg/dL 70-105 (test bbzb=475) CALCIUM (BEAKER) (test 8.0 mg/dL 8.4-10.2 fvfs=775) EGFR (BEAKER) (test 8 mL/min/1.73 sq m ESTIMATED GFR IS NOT xeym=0201) ACCURATE CREATININE CLEARANCE IN PREDICTING GLOMERULAR FILTRATION RATE. ESTIMATED GFR IS NOT APPLICABLE FOR DIALYSIS PATIENTS. CBC (HEMOGRAM ONLY)2018-03-20 06:25:00 Test Item Value Reference Range Comments WHITE BLOOD CELL COUNT (BEAKER) (test yfqb=722) 7.0 K/ L 3.5-10.5 RED BLOOD CELL COUNT (BEAKER) (test bsjl=926) 2.95 M/ L 3.93-5.22 HEMOGLOBIN (BEAKER) (test zeyy=891) 9.5 GM/DL 11.2-15.7 HEMATOCRIT (BEAKER) (test ogrg=395) 29.3 % 34.1-44.9 MEAN CORPUSCULAR VOLUME (BEAKER) (test tvct=556) 99.3 fL 79.4-94.8 MEAN CORPUSCULAR HEMOGLOBIN (BEAKER) (test 32.2 pg 25.6-32.2 xafx=771) MEAN CORPUSCULAR HEMOGLOBIN CONC (BEAKER) (test 32.4 GM/DL 32.2-35.5 ualh=509) RED CELL DISTRIBUTION WIDTH (BEAKER) (test 22.7 % 11.7-14.4 qarv=638) PLATELET COUNT (BEAKER) (test wvbn=824) 53 K/CU MM 150-450 NUCLEATED RED BLOOD CELLS (BEAKER) (test 1 /100 WBC 0-0 owut=271) BASIC METABOLIC [id number] 03:08:00 Test Item Value Reference Range Comments SODIUM (BEAKER) (test 130 meq/L 136-145 czwd=366) POTASSIUM (BEAKER) (test 4.9 meq/L 3.5-5.1 owys=926) CHLORIDE (BEAKER) (test 92 meq/L 98-107 sisy=395) CO2 (BEAKER) (test 21 meq/L 22-29 pqbc=093) BLOOD UREA NITROGEN 117 mg/dL 7-21 (BEAKER) (test bzyc=463) CREATININE (BEAKER) (test 5.66 mg/dL 0.57-1.25 ojtm=024) GLUCOSE RANDOM (BEAKER) 124 mg/dL 70-105 (test biyg=938) CALCIUM (BEAKER) (test 7.9 mg/dL 8.4-10.2 kflv=123) EGFR (BEAKER) (test 8 mL/min/1.73 sq m ESTIMATED GFR IS NOT yxct=2698) ACCURATE CREATININE CLEARANCE IN PREDICTING GLOMERULAR FILTRATION RATE. ESTIMATED GFR IS NOT APPLICABLE FOR DIALYSIS PATIENTS. BASIC METABOLIC [id number] 20:16:00 Test Item Value Reference Range Comments SODIUM (BEAKER) (test 131 meq/L 136-145 boky=743) POTASSIUM (BEAKER) (test 5.0 meq/L 3.5-5.1 yijo=079) CHLORIDE (BEAKER) (test 92 meq/L 98-107 wtse=178) CO2 (BEAKER) (test 22 meq/L 22-29 pomb=288) BLOOD UREA NITROGEN 113 mg/dL 7-21 (BEAKER) (test leyv=555) CREATININE (BEAKER) (test 5.58 mg/dL 0.57-1.25 waqj=494) GLUCOSE RANDOM (BEAKER) 112 mg/dL 70-105 (test jsqs=902) CALCIUM (BEAKER) (test 8.1 mg/dL 8.4-10.2 imge=231) EGFR (BEAKER) (test 8 mL/min/1.73 sq m ESTIMATED GFR IS NOT xifn=5196) ACCURATE CREATININE CLEARANCE IN PREDICTING GLOMERULAR FILTRATION RATE. ESTIMATED GFR IS NOT APPLICABLE FOR DIALYSIS PATIENTS. PROTEIN ELECTROPHORESIS, [id number] 17:31:00 Test Item Value Reference Range Comments ALBUMIN FRACTION (BEAKER) 2.7 g/dL 3.5-5.5 (test lkhq=363) ALPHA 1 FRACTION (BEAKER) 0.4 g/dL 0.2-0.4 (test yqtt=293) ALPHA 2 FRACTION (BEAKER) 0.5 g/dL 0.5-0.9 (test hbyc=257) BETA FRACTION (BEAKER) (test 0.8 g/dL 0.6-1.1 sleg=321) GAMMA GLOBULIN FRACTION 2.2 g/dL 0.7-1.7 (BEAKER) (test abrp=953) INTERPRETATION-119 (BEAKER) Polyclonal elevation of gamma (test wwaz=7824) fraction, suggestive of chronic inflammatory response. Serum JUDSON pending to evaluate for presence of small underlying monoclonal protein in this region. [id number]-635 Barbie Mccollum MD (BEAKER) (test kydy=7702) (electronic signature) PROTEIN TOTAL SERUM, SPEP 6.7 gm/dL 6.0-8.3 (BEAKER) (test lsrf=5941) IMMUNOFIXATION ELECTROPHORESIS (JUDSON)2018-03-19 17:31:00 Test Item Value Reference Range Comments IMMUNOGLOBULIN G (IGG) (BEAKER) 2008 mg/dL 540-1822 (test ptbo=915) IMMUNOGLOBULIN A (IGA) (BEAKER) 37 mg/dL 63-484 (test bjat=071) IMMUNOGLOBULIN M (IGM) (BEAKER) 673 mg/dL 22-293 (test pmeh=850) SERUM JUDSON ID (BEAKER) (test No monoclonal proteins gcjm=1901) detected. Polyclonal elevation of gamma globulins. [id number]-871 (BEAKER) Barbie Mccollum MD (test rdjg=7598) (electronic signature) ANTI-NUCLEAR ANTIBODY (SARAH)2018-03-19 10:18:00 Test Item Value Reference Range Comments ANTI-NUCLEAR ANTIBODY (SARAH) (BEAKER) (test Positive Negative ffsr=178) Test performed by IFA method.SARAH TITER AND [id number] 10:18:00 Test Item Value Reference Range Comments SARAH TITER (BEAKER) (test nmvs=8323) >=:2560 SARAH PATTERN (BEAKER) (test hnep=8126) Speckled FLOW [id number] 09:17:00Flow Cytometry Report Case: [id number] Authorizing Provider: Jordan Sultana MD Collected: 03/17/2018 1500 Ordering Location: [address] Med/Surg Received: 03/17/2018 0648 Pathologist: Doug Lee MD Specimen: Other BONE MARROW ASPIRATE, FLOW CYTOMETRY:-NO ABERRANT T LYMPHOCYTE POPULATION-NO MONOTYPIC B LYMPHOCYTE POPULATION-NO INCREASE IN CD34 POSITIVE BLASTS-SEE COMMENT Flow cytometric evaluation of the bone marrow aspirate was essentially negative. There was noevidence of an aberrant B or T lymphocyte process. There was no increase in blasts. Please correlate with morphologic findings in the bone marrow biopsy report([id number]) .[id number] wf with h/o right breast ca s/p surgery and chemo xrt in 2013 found to have recurrence with extensive metastases, started on carboplatin and gemcitabine in October 2017, transferred from [facility] for management of MAHA with REJI.BONE MARROW ASPIRATECD8, surface-Munising, CD56, surface-Lambda, CD5 , CD19, CD10, CD3, CD20, CD4, CD45, CD14, CD13, CD33, CD117, CD34, cKappa, cLambda, CD38, [id number] Viability: 92.4% Number of Events Acquired: [id number] The following populations are identified: Blasts: the dim CD45+ CD34+ blasts comprise 0.5% of total cells. The majority of these cells express CD13 and CD33 (myeloblasts).Lymphocytes: Bright CD45+ lymphocytes comprise 4.0% of total cells. T cells show a CD4:CD8 ratio of 0.8 and normal expression of the brown T cell antigens CD3 and CD5. B cells are polytypic with a kappa:lambda ratio of 1.1 and include few CD10+ B cells with the immunophenotypic features of hematogones.Myeloid/monocytic populations: As identified by CD45 and light scatter characteristics, granulocytescomprise the majority(64.2%) of cells analyzed, and monocytes comprise 2.2% of total cells. Plasma cells: 0.3% CD138 positive plasma cells are noted with polytypic cytoplasmic light chain expression. The remaining events analyzed represent nonviable cells, non- hematolymphoid cells, and debris.These tests were developed and their performance characteristics determined by [facility] They have not been cleared or approved by the U.S. Food and Drug Administration. The FDA has determined that such clearance or approval is not necessary. It should not be regarded as investigational or for research. This laboratory is certified under the Clinical Laboratory Improvement Amendments ma5320 ("CLIA") as qualified to perform high-complexity clinical testing.FLOW CYTOMETRY [id number] 09:16:00 Test Item Value Reference Range Comments FLOW CYTOMETRY RESULT POINTER (ADDY) See Separate Report (test kfnj=8168) FLOW CYTOMETRY AP CASE # (ADDY) (test [id number] scig=8865) BASIC METABOLIC [id number] 06:55:00 Test Item Value Reference Range Comments SODIUM (BEAKER) (test 131 meq/L 136-145 wxpp=970) POTASSIUM (BEAKER) (test 4.8 meq/L 3.5-5.1 fsaw=582) CHLORIDE (BEAKER) (test 93 meq/L 98-107 xdow=666) CO2 (BEAKER) (test 20 meq/L 22-29 eism=900) BLOOD UREA NITROGEN 99 mg/dL 7-21 (BEAKER) (test qlnr=190) CREATININE (BEAKER) (test 4.97 mg/dL 0.57-1.25 lsra=460) GLUCOSE RANDOM (BEAKER) 100 mg/dL 70-105 (test tuxz=183) CALCIUM (BEAKER) (test 8.3 mg/dL 8.4-10.2 yvra=130) EGFR (BEAKER) (test 9 mL/min/1.73 sq m ESTIMATED GFR IS NOT ddac=0541) ACCURATE CREATININE CLEARANCE IN PREDICTING GLOMERULAR FILTRATION RATE. ESTIMATED GFR IS NOT APPLICABLE FOR DIALYSIS PATIENTS. [id number] 06:54:00 Test Item Value Reference Range Comments PHOSPHORUS (BEAKER) (test ioel=982) 7.0 mg/dL 2.3-4.7 PTH, [id number] 06:42:00 Test Item Value Reference Range Comments PARATHYROID HORMONE INTACT (BEAKER) (test 690.0 pg/mL 8.5-72.5 necg=929) VANCOMYCIN LEVEL, [id number] 06:33:00 Test Item Value Reference Range Comments VANCOMYCIN RANDOM (BEAKER) (test tirq=054) 14.4 ug/mL Reference Range: No NormalsCBC (HEMOGRAM ONLY)2018-03-19 06:14:00 Test Item Value Reference Range Comments WHITE BLOOD CELL COUNT (BEAKER) (test cnme=468) 5.6 K/ L 3.5-10.5 RED BLOOD CELL COUNT (BEAKER) (test xfbv=164) 2.35 M/ L 3.93-5.22 HEMOGLOBIN (BEAKER) (test qipp=944) 7.6 GM/DL 11.2-15.7 HEMATOCRIT (BEAKER) (test thtg=817) 23.7 % 34.1-44.9 MEAN CORPUSCULAR VOLUME (BEAKER) (test xqgm=438) 100.9 fL 79.4-94.8 MEAN CORPUSCULAR HEMOGLOBIN (BEAKER) (test 32.3 pg 25.6-32.2 ragl=077) MEAN CORPUSCULAR HEMOGLOBIN CONC (BEAKER) (test 32.1 GM/DL 32.2-35.5 iogd=869) RED CELL DISTRIBUTION WIDTH (BEAKER) (test 23.4 % 11.7-14.4 fsve=367) PLATELET COUNT (BEAKER) (test iljo=452) 61 K/CU MM 150-450 NUCLEATED RED BLOOD CELLS (BEAKER) (test 1 /100 WBC 0-0 zasq=944) CBC W/PLT COUNT & AUTO [id number] 16:19:00 Test Item Value Reference Range Comments WHITE BLOOD CELL COUNT 5.0 K/ L 3.5-10.5 (BEAKER) (test iezd=136) RED BLOOD CELL COUNT (BEAKER) 2.35 M/ L 3.93-5.22 (test vung=984) HEMOGLOBIN (BEAKER) (test 7.6 GM/DL 11.2-15.7 gddo=837) HEMATOCRIT (BEAKER) (test 23.2 % 34.1-44.9 ycoz=275) MEAN CORPUSCULAR VOLUME 98.7 fL 79.4-94.8 (BEAKER) (test nmix=890) MEAN CORPUSCULAR HEMOGLOBIN 32.3 pg 25.6-32.2 (BEAKER) (test volu=044) MEAN CORPUSCULAR HEMOGLOBIN 32.8 GM/DL 32.2-35.5 CONC (BEAKER) (test tgap=862) RED CELL DISTRIBUTION WIDTH 22.5 % 11.7-14.4 (BEAKER) (test ztfa=292) PLATELET COUNT (BEAKER) (test 65 K/CU MM 150-450 xacg=001) MEAN PLATELET VOLUME (BEAKER) fL 9.4-12.3 Unable to report due to (test tqgh=401) abnormal Platelet population distribution. NUCLEATED RED BLOOD CELLS 1 /100 WBC 0-0 (BEAKER) (test cbub=465) NEUTROPHILS RELATIVE PERCENT 77 % (BEAKER) (test okci=032) LYMPHOCYTES RELATIVE PERCENT 13 % (BEAKER) (test vmpf=993) MONOCYTES RELATIVE PERCENT 9 % (BEAKER) (test dmie=845) EOSINOPHILS RELATIVE PERCENT 0 % (BEAKER) (test rzss=456) BASOPHILS RELATIVE PERCENT 0 % (BEAKER) (test avyo=953) NEUTROPHILS ABSOLUTE COUNT 3.82 K/ L 1.56-6.13 (BEAKER) (test zmgf=892) LYMPHOCYTES ABSOLUTE COUNT 0.62 K/ L 1.18-3.74 (BEAKER) (test xjnv=972) MONOCYTES ABSOLUTE COUNT 0.46 K/ L 0.24-0.36 (BEAKER) (test ufhs=243) EOSINOPHILS ABSOLUTE COUNT 0.01 K/ L 0.04-0.36 (BEAKER) (test wssa=145) BASOPHILS ABSOLUTE COUNT 0.01 K/ L 0.01-0.08 (BEAKER) (test nzpp=135) IMMATURE GRANULOCYTES-RELATIVE 1 % 0-1 PERCENT (BEAKER) (test nalr=9865) BASIC METABOLIC [id number] 16:10:00 Test Item Value Reference Range Comments SODIUM (BEAKER) (test 129 meq/L 136-145 prnx=559) POTASSIUM (BEAKER) (test 4.8 meq/L 3.5-5.1 udfr=382) CHLORIDE (BEAKER) (test 94 meq/L 98-107 mcyv=884) CO2 (BEAKER) (test 19 meq/L 22-29 rhco=536) BLOOD UREA NITROGEN 88 mg/dL 7-21 (BEAKER) (test glmb=628) CREATININE (BEAKER) (test 4.42 mg/dL 0.57-1.25 uoun=007) GLUCOSE RANDOM (BEAKER) 111 mg/dL 70-105 (test rtzj=915) CALCIUM (BEAKER) (test 8.4 mg/dL 8.4-10.2 nald=972) EGFR (BEAKER) (test 10 mL/min/1.73 sq m ESTIMATED GFR IS NOT jgnp=8034) ACCURATE CREATININE CLEARANCE IN PREDICTING GLOMERULAR FILTRATION RATE. ESTIMATED GFR IS NOT APPLICABLE FOR DIALYSIS PATIENTS. [id number] 11:52:00 Test Item Value Reference Range Comments HAPTOGLOBIN (BEAKER) (test hgsi=933) 34 mg/dL 14-258 PERIPHERAL BLOOD SMEAR - HOLD [id number] 10:25:00 Test Item Value Reference Range Comments PERIPHERAL SMEAR SAVE (BEAKER) (test biyf=1118) saved CALCIUM, [id number] 09:40:00 Test Item Value Reference Range Comments CALCIUM IONIZED (BEAKER) (test osbt=564) 0.94 mmol/L 1.12-1.27 PH, BLOOD (BEAKER) (test dslm=2064) 7.48 LACTATE DEHYDROGENASE (LDH)2018-03-18 09:27:00 Test Item Value Reference Range Comments LACTATE DEHYDROGENASE (BEAKER) (test eudk=136) 599 U/L 125-220 CBC (HEMOGRAM ONLY)2018-03-18 09:27:00 Test Item Value Reference Range Comments WHITE BLOOD CELL COUNT (BEAKER) (test zgyc=889) 4.2 K/ L 3.5-10.5 RED BLOOD CELL COUNT (BEAKER) (test xanz=620) 2.34 M/ L 3.93-5.22 HEMOGLOBIN (BEAKER) (test mzhp=716) 7.4 GM/DL 11.2-15.7 HEMATOCRIT (BEAKER) (test fnma=843) 22.8 % 34.1-44.9 MEAN CORPUSCULAR VOLUME (BEAKER) (test mubu=245) 97.4 fL 79.4-94.8 MEAN CORPUSCULAR HEMOGLOBIN (BEAKER) (test 31.6 pg 25.6-32.2 eqmj=918) MEAN CORPUSCULAR HEMOGLOBIN CONC (BEAKER) (test 32.5 GM/DL 32.2-35.5 tbpl=571) RED CELL DISTRIBUTION WIDTH (BEAKER) (test 22.5 % 11.7-14.4 abra=801) PLATELET COUNT (BEAKER) (test lpmu=422) 39 K/CU MM 150-450 NUCLEATED RED BLOOD CELLS (BEAKER) (test 1 /100 WBC 0-0 uwpq=349) RETICULOCYTE [id number] 09:24:00 Test Item Value Reference Range Comments RETICULOCYTE COUNT PCT (BEAKER) (test pnma=866) 6.9 % 0.5-1.7 [id number] 09:16:00 Test Item Value Reference Range Comments D-DIMER QUANTITATIVE (BEAKER) (test fknj=057) 3.18 MG/L FEU <0.50 Intended Use: The D-Dimer Assay can be used to aid in the diagnosis of Deep Vein Thrombosis (DVT) and Pulmonary Embolism Disease (PED).In patients with low pre-test probability, various studies concerning STA Liatest D-dimer test have reported that with a cutoff value of 0.50 MG/L FEU, the Negative Predictive Value (NPV) regarding the exclusion of thrombosis is within 95-100% range.[id number] 09:14:00 Test Item Value Reference Range Comments PARTIAL THROMBOPLASTIN TIME (BEAKER) (test 38.9 seconds 22.5-36.0 ezwz=934) PROTHROMBIN [id number] 09:13:00 Test Item Value Reference Range Comments PROTIME (BEAKER) (test azsj=342) 15.3 seconds 11.7-14.7 INR (BEAKER) (test lfsm=144) 1.2 <=5.9 RECOMMENDED COUMADIN/WARFARIN INR THERAPY RANGESSTANDARD DOSE: 2.0 - 3.0 Includes: PROPHYLAXIS forvenous thrombosis, systemic embolization; TREATMENT for venous thrombosis and/or pulmonary embolus.HIGH RISK: Target INR is 2.5-3.5 for patients with mechanical heart valves.BASIC METABOLIC [id number] 08:52: 00 Test Item Value Reference Range Comments SODIUM (BEAKER) (test 135 meq/L 136-145 uvkx=262) POTASSIUM (BEAKER) (test 4.9 meq/L 3.5-5.1 ljhe=042) CHLORIDE (BEAKER) (test 96 meq/L 98-107 ukxx=699) CO2 (BEAKER) (test 23 meq/L 22-29 aqii=732) BLOOD UREA NITROGEN 77 mg/dL 7-21 (BEAKER) (test uxhe=351) CREATININE (BEAKER) (test 4.04 mg/dL 0.57-1.25 wnqw=326) GLUCOSE RANDOM (BEAKER) 137 mg/dL 70-105 (test ssju=827) CALCIUM (BEAKER) (test 8.8 mg/dL 8.4-10.2 attf=357) EGFR (BEAKER) (test 12 mL/min/1.73 sq m ESTIMATED GFR IS NOT vacw=4198) ACCURATE CREATININE CLEARANCE IN PREDICTING GLOMERULAR FILTRATION RATE. ESTIMATED GFR IS NOT APPLICABLE FOR DIALYSIS PATIENTS. CALCIUM, [id number] 08:21:00 Test Item Value Reference Range Comments CALCIUM IONIZED (BEAKER) (test lmvi=069) 0.72 mmol/L 1.12-1.27 PH, BLOOD (BEAKER) (test ikzw=3785) 7.46 OSMOLALITY, [id number] 07:36:00 Test Item Value Reference Range Comments OSMOLALITY URINE (BEAKER) (test bvkh=299) 316 mOsm/kg 40-1400 OSMOLALITY, [id number] 07:34:00 Test Item Value Reference Range Comments OSMOLALITY, SERUM (BEAKER) (test ysre=507) 303 mOsm/kg 275-295 CREATININE, RANDOM [id number] 07:26:00 Test Item Value Reference Range Comments CREATININE URINE (BEAKER) (test nbku=316) 36.3 mg/dL Reference Range: No NormalsPOTASSIUM, RANDOM [id number] 07:26:00 Test Item Value Reference Range Comments POTASSIUM URINE (BEAKER) (test ycdb=875) 41.5 meq/L Reference Range: No NormalsSODIUM, RANDOM [id number] 07:26:00 Test Item Value Reference Range Comments SODIUM URINE (BEAKER) (test vkty=278) 57 meq/L Reference Range: No NormalsUREA NITROGEN, RANDOM [id number] 07:26:00 Test Item Value Reference Range Comments UREA NITROGEN URINE (BEAKER) (test glqe=465) 298 mg/dL Reference Range: No NormalsPERIPHERAL BLOOD SMEAR - HOLD [id number] 07:20:00 Test Item Value Reference Range Comments PERIPHERAL SMEAR SAVE (BEAKER) (test jpww=7976) saved BASIC METABOLIC [id number] 06:08:00 Test Item Value Reference Range Comments SODIUM (BEAKER) (test 128 meq/L 136-145 zdke=118) POTASSIUM (BEAKER) (test 4.6 meq/L 3.5-5.1 pcem=377) CHLORIDE (BEAKER) (test 94 meq/L 98-107 yrkp=031) CO2 (BEAKER) (test 20 meq/L 22-29 kkcn=832) BLOOD UREA NITROGEN 84 mg/dL 7-21 (BEAKER) (test pvoo=496) CREATININE (BEAKER) (test 4.34 mg/dL 0.57-1.25 uqda=784) GLUCOSE RANDOM (BEAKER) 120 mg/dL 70-105 (test bifm=758) CALCIUM (BEAKER) (test 6.8 mg/dL 8.4-10.2 yiea=148) EGFR (BEAKER) (test 11 mL/min/1.73 sq m ESTIMATED GFR IS NOT bael=6189) ACCURATE CREATININE CLEARANCE IN PREDICTING GLOMERULAR FILTRATION RATE. ESTIMATED GFR IS NOT APPLICABLE FOR DIALYSIS PATIENTS. VANCOMYCIN LEVEL, [id number] 06:05:00 Test Item Value Reference Range Comments VANCOMYCIN RANDOM (BEAKER) (test nnjc=198) < ug/mL Reference Range: No NormalsCALCIUM, [id number] 04:20:00 Test Item Value Reference Range Comments CALCIUM IONIZED (BEAKER) (test juwj=986) 0.81 mmol/L 1.12-1.27 PH, BLOOD (BEAKER) (test rfqr=1594) 7.40 Range 1.12 - [id number] 03:54:00 Test Item Value Reference Range Comments D-DIMER QUANTITATIVE (BEAKER) (test lnli=851) 4.50 MG/L FEU <0.50 Intended Use: The D-Dimer Assay can be used to aid in the diagnosis of Deep Vein Thrombosis (DVT) and Pulmonary Embolism Disease (PED).In patients with low pre-test probability, various studies concerning STA Liatest D-dimer test have reported that with a cutoff value of 0.50 MG/L FEU, the Negative Predictive Value (NPV) regarding the exclusion of thrombosis is within 95-100% range.[id number] 02:58:00 Test Item Value Reference Range Comments PROCALCITONIN (BEAKER) (test ldia=0027) 8.65 ng/mL <0.05 SEPSIS RISK (ng/mL)Low: 0.05-0.50Intermediate: 0.51-2.00High: & gt;=2.01TROPONIN [id number] 02:29:00 Test Item Value Reference Range Comments TROPONIN I (BEAKER) (test bxus=763) 0.77 ng/mL 0.00-0.03 Troponin I (TnI) levels must be interpreted [...] failure, acidosis, acute neurological disease, and persistent tachyarrhythmia.COMPREHENSIVE METABOLIC [id number] 02:11:00 Test Item Value Reference Range Comments TOTAL PROTEIN (BEAKER) 6.8 gm/dL 6.0-8.3 (test bnaq=066) ALBUMIN (BEAKER) (test 2.9 g/dL 3.5-5.0 xgpe=8532) ALKALINE PHOSPHATASE 100 U/L 40-150 (BEAKER) (test dueg=252) BILIRUBIN TOTAL (BEAKER) 1.4 mg/dL 0.2-1.2 (test mavo=320) SODIUM (BEAKER) (test 127 meq/L 136-145 upyh=566) POTASSIUM (BEAKER) (test 5.0 meq/L 3.5-5.1 eqnz=422) CHLORIDE (BEAKER) (test 101 meq/L 98-107 xcqx=006) CO2 (BEAKER) (test 15 meq/L 22-29 qaao=537) BLOOD UREA NITROGEN 87 mg/dL 7-21 (BEAKER) (test hapi=534) CREATININE (BEAKER) (test 4.62 mg/dL 0.57-1.25 ubjs=560) GLUCOSE RANDOM (BEAKER) 128 mg/dL 70-105 (test qfcf=061) CALCIUM (BEAKER) (test 6.9 mg/dL 8.4-10.2 qhpr=639) AST (SGOT) (BEAKER) (test 79 U/L 5-34 tmti=785) ALT (SGPT) (BEAKER) (test 45 U/L 6-55 well=567) EGFR (BEAKER) (test 10 mL/min/1.73 sq m ESTIMATED GFR IS NOT ogrd=5255) ACCURATE CREATININE CLEARANCE IN PREDICTING GLOMERULAR FILTRATION RATE. ESTIMATED GFR IS NOT APPLICABLE FOR DIALYSIS PATIENTS. RAD, CHEST, 1 VIEW, NON [id number] 01:44:00Reason for exam:-> HEMODIALYSIS CATHTER PLACEMENTShould this be performed at the bedside?-> YesFINAL REPORT Chest one view. Clinical history: HEMODIALYSIS CATHTER PLACEMENT Comparison: Chest radiograph 03/17/2018, 10:31 AM Technique: A single frontal view of the chest was obtained. Findings/impression :There is a new right IJ central venous catheter with tip in the distalSVC. There is a left IJ Port-A-Cath with tip in the SVC/RA junction.There is mild cardiomegaly. There is pulmonary interstitial edema, not significantly changed. There are trace bilateral pleural effusions. There is no pneumothorax. Signed: Haritha Vázquez Verified Date/Time: 03/18/2018 01:44:10 Reading Location: [facility] C013Y CT Body Reading Room [id number] 01:37:00 Test Item Value Reference Range Comments FIBRINOGEN LEVEL (BEAKER) (test sefy=854) 466 mg/dl 225-434 [id number] 01:37:00 Test Item Value Reference Range Comments PARTIAL THROMBOPLASTIN TIME (BEAKER) (test 33.6 seconds 22.5-36.0 uudh=614) PROTHROMBIN TIME/[id number] 01:36:00 Test Item Value Reference Range Comments PROTIME (BEAKER) (test obrz=399) 17.0 seconds 11.7-14.7 INR (BEAKER) (test rsuk=674) 1.4 <=5.9 RECOMMENDED COUMADIN/WARFARIN INR THERAPY RANGESSTANDARD DOSE: 2.0 - 3.0 Includes: PROPHYLAXIS forvenous thrombosis, systemic embolization; TREATMENT for venous thrombosis and/or pulmonary embolus.HIGH RISK: Target INR is 2.5-3.5 for patients with mechanical heart valves.LACTIC ACID, VENOUS, WHOLE [id number] 01:26:00 Test Item Value Reference Range Comments LACTATE BLOOD VENOUS (2) (BEAKER) (test 1.7 mmol/L 0.5-2.2 nxcj=4927) Effective 11/28/2015: Units/Reference Range ChangeNew: 0.5-2.2 mmol/L Previous: 5 -20 mg/dLCBC (HEMOGRAM ONLY)2018-03-18 01:16:00 Test Item Value Reference Range Comments WHITE BLOOD CELL COUNT (BEAKER) (test kses=595) 4.3 K/ L 3.5-10.5 RED BLOOD CELL COUNT (BEAKER) (test ikcl=033) 2.67 M/ L 3.93-5.22 HEMOGLOBIN (BEAKER) (test lmwp=974) 8.6 GM/DL 11.2-15.7 HEMATOCRIT (BEAKER) (test yeol=014) 25.6 % 34.1-44.9 MEAN CORPUSCULAR VOLUME (BEAKER) (test xacq=232) 95.9 fL 79.4-94.8 MEAN CORPUSCULAR HEMOGLOBIN (BEAKER) (test 32.2 pg 25.6-32.2 zmho=105) MEAN CORPUSCULAR HEMOGLOBIN CONC (BEAKER) (test 33.6 GM/DL 32.2-35.5 wqhi=282) RED CELL DISTRIBUTION WIDTH (BEAKER) (test 21.9 % 11.7-14.4 kklu=694) PLATELET COUNT (BEAKER) (test otur=952) 39 K/CU MM 150-450 NUCLEATED RED BLOOD CELLS (BEAKER) (test 1 /100 WBC 0-0 pypa=082) CT, BIOPSY, BONE [id number] 17:06:00Reason for exam:->pancytopenia in setting of metastatic breast cancer, chemotherapy held almost 2monthsFINAL REPORT PROCEDURE: CT-guided bone marrow biopsy DOSE REDUCTION: The examination was performed according to departmental dose- optimization program which includes automated exposure control, adjustment of the mA and/or kV according to patient size and/or use of iterative reconstruction technique. Clinical History: Pancytopenia Business Intern: Marce Conscious sedation: Versed 1 mg,fentanyl 50 mcg, (Administered after informed consent was [...] was immediately removed and provided to the chief medical technologist. Subsequently a core biopsy was obtained using the outer sheath. The needle and sheath were removed.Postprocedure CT evaluation of the area revealed no significant hematoma. Patient tolerated the procedure well and remained hemodynamically stable throughout. IMPRESSION: Successful and uncomplicated CT -guided bone marrow aspiration and core biopsy. Signed: Jordan Sultana Verified Date/Time: 03/17/2018 17:06:03 Reading Location: [facility] Radiology Reading Room 05: 06 PMBONE MARROW PROCESS ([facility]2018-03-17 15:16:00 Test Item Value Reference Range Comments ANATOMIC CASE# (ADDY) (test uaxv=2170) [id number] ORDERED BY DOCTOR# MORRIS) (test wmlg=7845) jordan Sultana m.d. PERFORMED BY DOCTOR# MORRIS) (test Jordan Sultana m.d. ffkh=7479) CLOT RECEIVED? (BETON) (test etpe=6309) Yes BIOPSY RECEIVED? (BEAKER) (test kcft=5261) Yes CULTURE RECEIVED? (BEAKER) (test btii=8595) No FLOW RECEIVED? (BETON) (test szhx=1428) Yes CYTOGENICS? (BEAKER) (test tykt=1353) Yes MOLECULAR GENETICS? (BEAKER) (test No nzon=4936) RAD, CHEST, 2 [id number] 13:39:00Reason for exam:->sobFINAL REPORT Comparison: 15/08/2017 TECHNIQUE: 2 views of the chest FINDINGS: There is mild vascular congestion. There are small pleural effusions. Cardiac silhouette is enlarged.Left internal jugular chest port noted with tip at the cavoatrial junction. Surgical clips project over the right chest wall. Signed: Jordan Sultana MDRdaphneyort Verified Date/Time: 03/17/2018 13:39:16 Reading Location: [facility] Radiology Reading Room [id number] 13:20:00 Test Item Value Reference Range Comments HAPTOGLOBIN (BEAKER) (test rabm=577) < mg/dL 14-258 COMPLEMENT COMPONENT [id number] 12:57:00 Test Item Value Reference Range Comments C4 COMPLEMENT (BEAKER) (test qtbg=845) 22 mg/dL 15-57 COMPLEMENT COMPONENT [id number] 12:57:00 Test Item Value Reference Range Comments C3 COMPLEMENT (BEAKER) (test hdir=462) 94 mg/dL 82-193 PERIPHERAL BLOOD SMEAR - PATHOLOGIST [id number] 09:47:00 Test Item Value Reference Range Comments PERIPHERAL SMR REVIEW Normochromic normocytic anemia (BEAKER) (test auja=9884) with rare schistocytes seen (1-2/ HPF). WBCs normal in number and morphology. Thrombocytopenia with a few large forms. [id number] Michelle Yu M.D. (electronic (BEAKER) (test cenw=5868) signature) TROPONIN [id number] 07:07:00 Test Item Value Reference Range Comments TROPONIN I (BEAKER) (test lzbc=460) 1.56 ng/mL 0.00-0.15 Troponin I (TnI) levels must be interpreted [...] failure, acidosis, acute neurological disease, and persistent tachyarrhythmia.BASIC METABOLIC [id number] 07:06:00 Test Item Value Reference Range Comments SODIUM (BEAKER) (test 131 meq/L 135-148 onpp=213) POTASSIUM (BEAKER) (test 5.8 meq/L 3.6-5.5 kvcn=637) CHLORIDE (BEAKER) (test 107 meq/L 98-106 fjyh=183) CO2 (BEAKER) (test 12 meq/L 20-29 wsvy=363) BLOOD UREA NITROGEN 74 mg/dL 10-26 (BEAKER) (test cqub=910) CREATININE (BEAKER) (test 3.95 mg/dL 0.50-1.20 jigg=417) GLUCOSE RANDOM (BEAKER) 133 mg/dL 70-110 (test xarg=527) CALCIUM (BEAKER) (test 7.6 mg/dL 8.5-10.5 ormi=399) EGFR (BEAKER) (test 12 mL/min/1.73 sq m ESTIMATED GFR IS NOT gydu=4948) ACCURATE CREATININE CLEARANCE IN PREDICTING GLOMERULAR FILTRATION RATE. ESTIMATED GFR IS NOT APPLICABLE FOR DIALYSIS PATIENTS. [id number] 06:45:00 Test Item Value Reference Range Comments MAGNESIUM (BEAKER) (test cjrp=577) 2.0 mg/dL 1.5-3.0 CBC W/PLT COUNT & AUTO [id number] 06:35:00 Test Item Value Reference Range Comments WHITE BLOOD CELL COUNT (BEAKER) (test syzj=009) 8.7 K/ L 4.0-10.0 RED BLOOD CELL COUNT (BEAKER) (test qgcy=679) 3.26 M/ L 4.00-5.00 HEMOGLOBIN (BEAKER) (test mwsr=970) 10.2 GM/DL 12.0-15.5 HEMATOCRIT (BEAKER) (test jrqa=846) 31.9 % 36.0-46.0 MEAN CORPUSCULAR VOLUME (BEAKER) (test aeab=939) 97.9 fL 82.0-99.0 MEAN CORPUSCULAR HEMOGLOBIN (BEAKER) (test 31.3 pg 27.0-33.0 dnzu=240) MEAN CORPUSCULAR HEMOGLOBIN CONC (BEAKER) (test 32.0 GM/DL 32.0-36.0 ivlg=674) RED CELL DISTRIBUTION WIDTH (BEAKER) (test 20.8 % 12.0-15.0 gkkw=638) PLATELET COUNT (BEAKER) (test kehw=148) 62 K/CU MM 150-430 MEAN PLATELET VOLUME (BEAKER) (test ytmd=223) 10.5 fL 6.0-11.5 NUCLEATED RED BLOOD CELLS (BEAKER) (test 0 /100 WBC 0-0 nfbj=934) NEUTROPHILS RELATIVE PERCENT (BEAKER) (test 80 % ubya=938) LYMPHOCYTES RELATIVE PERCENT (BEAKER) (test 11 % yqhj=182) MONOCYTES RELATIVE PERCENT (BEAKER) (test 8 % jmzd=668) EOSINOPHILS RELATIVE PERCENT (BEAKER) (test 0 % qobb=725) BASOPHILS RELATIVE PERCENT (BEAKER) (test 0 % yzxj=723) NEUTROPHILS ABSOLUTE COUNT (BEAKER) (test 6.95 K/ L 1.80-8.00 vvnb=895) LYMPHOCYTES ABSOLUTE COUNT (BEAKER) (test 0.92 K/ L 1.48-4.50 kgqo=779) MONOCYTES ABSOLUTE COUNT (BEAKER) (test wviz=755) 0.72 K/ L 0.00-1.30 EOSINOPHILS ABSOLUTE COUNT (BEAKER) (test 0.00 K/ L 0.00-0.50 dmtr=760) BASOPHILS ABSOLUTE COUNT (BEAKER) (test drar=692) 0.01 K/ L 0.00-0.20 IMMATURE GRANULOCYTES-RELATIVE PERCENT (BEAKER) 1 % 0-0 (test ptdg=6189) BLOOD GAS, [id number] 05:27:00 Test Item Value Reference Range Comments PH ARTERIAL (BEAKER) (test pvlu=639) 7.40 7.35-7.45 PCO2 ARTERIAL (BEAKER) (test mzec=568) 18 mmHg 35-45 PO2 ARTERIAL (BEAKER) (test uyup=881) 72 mmHg 80-90 O2 SATURATION ARTERIAL (BEAKER) (test jlqv=032) 94.7 % 96.0-97.0 HCO3 ARTERIAL (BEAKER) (test bvkh=278) 11 mmol/L 21-29 BASE EXCESS ARTERIAL (BEAKER) (test nidc=758) -12.0 mmol/L -2.0-3.0 PATIENT TEMPERATURE (BEAKER) (test kqlk=3964) 37.5 C FIO2 (BEAKER) (test qkzg=7197) 28.0 % PROTEIN, RANDOM [id number] 00:47:00 Test Item Value Reference Range Comments PROTEIN, URINE (BEAKER) (test drdv=9440) 432 mg/dL 0-14 CREATININE, RANDOM [id number] 00:03:00 Test Item Value Reference Range Comments CREATININE URINE (BEAKER) (test cbjg=617) 68.6 mg/dL Reference Range: No NormalsURINALYSIS W/ [id number] 23:56:00 Test Item Value Reference Range Comments COLOR (BEAKER) (test ghds=184) Yellow CLARITY (BEAKER) (test ftpr=606) Clear SPECIFIC GRAVITY UA (BEAKER) (test vsnb=308) 1.020 1.001-1.035 PH UA (BEAKER) (test unpk=086) 5.5 5.0-8.0 PROTEIN UA (BEAKER) (test rimg=954) >=300 mg/dL Negative GLUCOSE UA (BEAKER) (test kepq=511) Negative Negative KETONES UA (BEAKER) (test dgzg=068) Negative Negative BILIRUBIN UA (BEAKER) (test yjvo=240) Negative Negative BLOOD UA (BEAKER) (test fdrg=139) Large Negative NITRITE UA (BEAKER) (test zlcs=215) Negative Negative LEUKOCYTE ESTERASE UA (BEAKER) (test ytmk=441) Trace Negative UROBILINOGEN UA (BEAKER) (test ndio=933) 0.2 mg/dL 0.2-1.0 BACTERIA (BEAKER) (test fpid=591) Occasional AMORPHOUS CRYSTALS (BEAKER) (test gfbf=8409) Few RBC UA-MANUAL (BEAKER) (test kize=1689) 5-10 /HPF WBC UA-MANUAL (BEAKER) (test lamy=1310) <5 /HPF SQUAMOUS EPITHELIAL MANUAL (BEAKER) (test 5-10 /HPF cvqb=8054) GRANULAR CASTS MANUAL (BEAKER) (test innc=4924) Few /LPF SOURCE(BEAKER) (test bbvw=2913) KETONE, [id number] 22:28:00 Test Item Value Reference Range Comments KETONES, BLOOD (BEAKER) (test vgty=0908) 0.3 mmol/L <0.4 BILIRUBIN, TOTAL AND [id number] 22:17:00 Test Item Value Reference Range Comments BILIRUBIN TOTAL (BEAKER) (test sksr=210) 2.1 mg/dL 0.1-1.2 BILIRUBIN DIRECT (BEAKER) (test kokq=885) 1.1 mg/dL 0.0-0.4 LACTATE DEHYDROGENASE (LDH)2018-03-16 22:16:00 Test Item Value Reference Range Comments LACTATE DEHYDROGENASE (BEAKER) (test mvqt=143) 1540 U/L 107-206 TROPONIN [id number] 19:44:00 Test Item Value Reference Range Comments TROPONIN I (BEAKER) (test wydw=342) 0.24 ng/mL 0.00-0.15 Troponin I (TnI) levels must be interpreted [...] failure, acidosis, acute neurological disease, and persistent tachyarrhythmia.TROPONIN [id number] 10:58:00 Test Item Value Reference Range Comments TROPONIN I (BEAKER) (test cofg=506) 0.17 ng/mL 0.00-0.15 Troponin I (TnI) levels must be interpreted [...] failure, acidosis, acute neurological disease, and persistent tachyarrhythmia.CREATINE KINASE (CK), TOTAL AND [id number] 10:57:00 Test Item Value Reference Range Comments CREATINE KINASE TOTAL (BEAKER) (test tmdv=564) 125 U/L 25-235 CREATINE KINASE-MB (BEAKER) (test fgfh=143) 0.9 ng/mL 0.0-4.9 CREATINE KINASE-MB INDEX (BEAKER) (test tzgh=258) 0.7 % CK-MB Reference Range:<5 Normal5-10 Borderline>10 AbnormalCOMPREHENSIVE METABOLIC [id number] 10:53:00 Test Item Value Reference Range Comments TOTAL PROTEIN (BEAKER) 7.7 gm/dL 6.0-8.5 (test vyoz=729) ALBUMIN (BEAKER) (test 3.4 g/dL 3.5-5.0 fyya=1512) ALKALINE PHOSPHATASE 45 U/L 30-115 (BEAKER) (test iwkl=265) BILIRUBIN TOTAL (BEAKER) 1.4 mg/dL 0.1-1.2 (test owkz=705) SODIUM (BEAKER) (test 132 meq/L 135-148 locy=076) POTASSIUM (BEAKER) (test 4.8 meq/L 3.6-5.5 wsjz=461) CHLORIDE (BEAKER) (test 106 meq/L 98-106 gtbm=613) CO2 (BEAKER) (test 13 meq/L 20-29 cdce=123) BLOOD UREA NITROGEN 63 mg/dL 10-26 (BEAKER) (test muft=234) CREATININE (BEAKER) (test 3.73 mg/dL 0.50-1.20 wcjm=654) GLUCOSE RANDOM (BEAKER) 94 mg/dL 70-110 (test jxsk=020) CALCIUM (BEAKER) (test 8.2 mg/dL 8.5-10.5 asry=732) AST (SGOT) (BEAKER) (test 59 U/L 5-40 dezm=905) ALT (SGPT) (BEAKER) (test 23 U/L 5-50 hniy=143) EGFR (BEAKER) (test 13 mL/min/1.73 sq m ESTIMATED GFR IS NOT dgog=2115) ACCURATE CREATININE CLEARANCE IN PREDICTING GLOMERULAR FILTRATION RATE. ESTIMATED GFR IS NOT APPLICABLE FOR DIALYSIS PATIENTS. URINALYSIS W/ [id number] 10:49:00 Test Item Value Reference Range Comments COLOR (BEAKER) (test asrn=172) Yellow CLARITY (BEAKER) (test flqw=678) Clear SPECIFIC GRAVITY UA (BEAKER) (test ditb=145) 1.020 1.001-1.035 PH UA (BEAKER) (test vwbn=355) 5.5 5.0-8.0 PROTEIN UA (BEAKER) (test uugf=764) >=300 mg/dL Negative GLUCOSE UA (BEAKER) (test npzh=355) Negative Negative KETONES UA (BEAKER) (test xnmo=742) Negative Negative BILIRUBIN UA (BEAKER) (test gmav=312) Negative Negative BLOOD UA (BEAKER) (test ycyn=956) Large Negative NITRITE UA (BEAKER) (test jqwx=339) Negative Negative LEUKOCYTE ESTERASE UA (BEAKER) (test uril=444) Negative Negative UROBILINOGEN UA (BEAKER) (test pkjz=023) 0.2 mg/dL 0.2-1.0 BACTERIA (BEAKER) (test goew=625) Few AMORPHOUS CRYSTALS (BEAKER) (test emdh=3839) Moderate RBC UA-MANUAL (BEAKER) (test fdhz=3490) 5-10 /HPF WBC UA-MANUAL (BEAKER) (test hbtu=2081) <5 /HPF SQUAMOUS EPITHELIAL MANUAL (BEAKER) (test 5-10 /HPF qsnp=1279) WAXY CASTS MANUAL (BEAKER) (test bcmq=2145) 5-10 /LPF SOURCE(BEAKER) (test wplt=7529) CBC W/PLT COUNT & AUTO [id number] 10:49:00 Test Item Value Reference Range Comments WHITE BLOOD CELL COUNT (BEAKER) (test tyaz=876) 4.0 K/ L 4.0-10.0 RED BLOOD CELL COUNT (BEAKER) (test vbub=442) 1.64 M/ L 4.00-5.00 HEMOGLOBIN (BEAKER) (test nrtb=942) 5.5 GM/DL 12.0-15.5 HEMATOCRIT (BEAKER) (test tjsh=386) 17.6 % 36.0-46.0 MEAN CORPUSCULAR VOLUME (BEAKER) (test leet=258) 107.3 fL 82.0-99.0 MEAN CORPUSCULAR HEMOGLOBIN (BEAKER) (test 33.5 pg 27.0-33.0 ikmt=840) MEAN CORPUSCULAR HEMOGLOBIN CONC (BEAKER) (test 31.3 GM/DL 32.0-36.0 ggto=600) RED CELL DISTRIBUTION WIDTH (BEAKER) (test 23.5 % 12.0-15.0 zyvv=480) PLATELET COUNT (BEAKER) (test opkb=870) 66 K/CU MM 150-430 MEAN PLATELET VOLUME (BEAKER) (test uigh=830) 11.3 fL 6.0-11.5 NUCLEATED RED BLOOD CELLS (BEAKER) (test 0 /100 WBC 0-0 kzyv=872) NEUTROPHILS RELATIVE PERCENT (BEAKER) (test 81 % sbvd=890) LYMPHOCYTES RELATIVE PERCENT (BEAKER) (test 9 % ixgv=196) MONOCYTES RELATIVE PERCENT (BEAKER) (test 9 % mywq=062) EOSINOPHILS RELATIVE PERCENT (BEAKER) (test 0 % xwrs=616) BASOPHILS RELATIVE PERCENT (BEAKER) (test 0 % tchl=924) NEUTROPHILS ABSOLUTE COUNT (BEAKER) (test 3.21 K/ L 1.80-8.00 tgwc=615) LYMPHOCYTES ABSOLUTE COUNT (BEAKER) (test 0.36 K/ L 1.48-4.50 tvon=607) MONOCYTES ABSOLUTE COUNT (BEAKER) (test jpqc=635) 0.34 K/ L 0.00-1.30 EOSINOPHILS ABSOLUTE COUNT (BEAKER) (test 0.01 K/ L 0.00-0.50 akyw=549) BASOPHILS ABSOLUTE COUNT (BEAKER) (test lgeh=322) 0.00 K/ L 0.00-0.20 IMMATURE GRANULOCYTES-RELATIVE PERCENT (BEAKER) 1 % 0-0 (test wroe=7657) (MANUAL DIFFERENTIAL)2018-03-16 10:49:00 Test Item Value Reference Range Comments TOTAL COUNTED (BEAKER) (test eflc=0466) WBC MORPHOLOGY (BEAKER) (test etkd=116) Normal PLT MORPHOLOGY (BEAKER) (test lnsi=532) Normal SCHISTOCYTES (BEAKER) (test jfol=998) 1+ few ANISOCYTOSIS (BEAKER) (test omiu=517) 1+ few MACROCYTES (BEAKER) (test aihm=912) 1+ few MICROCYTES (BEAKER) (test vhbc=944) 1+ few POIKILOCYTES (BEAKER) (test lyao=669) 1+ few POLYCHROMATOPHILLIC RBCS(BEAKER) (test iqhk=179) 1+ few PT/[id number] 10:46:00 Test Item Value Reference Range Comments PROTIME (BEAKER) (test rxfo=908) 11.1 sec 9.3-12.0 INR (BEAKER) (test eadm=773) 1.0 <=5.9 PARTIAL THROMBOPLASTIN TIME (BEAKER) (test 31.0 sec 23.0-35.0 buan=759) RECOMMENDED COUMADIN/WARFARIN INR THERAPY RANGESSTANDARD DOSE: 2.0 - 3.0 Includes: PROPHYLAXIS forvenous thrombosis, systemic embolization; TREATMENT for venous thrombosis and/or pulmonary embolus.HIGH RISK: Target INR is 2.5-3.5 for patients with mechanical heart valves.Final Information (Auto Output)Final Information (Auto Output)Final Information (Auto Output)LACTIC ACID, VENOUS, WHOLE [id number] 10:45:00 Test Item Value Reference Range Comments LACTATE BLOOD VENOUS (2) (BEAKER) (test 2.2 mmol/L 0.5-2.2 xdgy=1233) Effective 11/28/2015: Units/Reference Range ChangeNew: 0.5-2.2 mmol/L Previous: 5 -18 mg/dLRAD, CHEST, 1 VIEW, NON [id number] 10:14:00Reason for exam:-> chest painIs the patient ?->NoShould this be performed at the bedside ?->YesFINAL REPORT CHEST AP PORTABLE SEMIERECT Comparison exam: 12/08/2017 History provided: Chest pain Heart size magnified by projection. Lungs clear and vascularity normal. Port-A-Cath from left jugular approach with catheter tip near the cavoatrial junction. Surgical clips overlie the right breast. IMPRESSION: Clear chest. Signed: Catalina Mancini MDReport Verified Date/Time: 03/16/2018 10:14:32 Reading Location: [facility] Radiology Reading Room 10: 14 AMBLOOD [id number] 22:01:00 Test Item Value Reference Range Comments CULTURE (BEAKER) (test hnes=9048) No growth in 5 days BLOOD [id number] 22:01:00 Test Item Value Reference Range Comments CULTURE (BEAKER) (test lqbf=0762) No growth in 5 days RESPIRATORY PANEL [id number] 09:21:00 Test Item Value Reference Range Comments HUMAN METAPNEUMOVIRUS (BEAKER) (test Not detected Not detected, Inconclusive qzsv=5396) RHINOVIRUS (BEAKER) (test fydk=4673) Not detected Not detected, Inconclusive INFLUENZA A (BEAKER) (test Not detected Not detected, Inconclusive kyoi=2994) INFLUENZA A SUBTYPE H1 (BEAKER) Not detected Not detected, Inconclusive (test jdpz=0878) INFLUENZA A SUBTYPE H3 (BEAKER) Not detected Not detected, Inconclusive (test hqqg=2099) INFLUENZA A SUBTYPE H1-2009 (BEAKER) Not detected Not detected, Inconclusive (test odej=8682) INFLUENZA B (BEAKER) (test Not detected Not detected, Inconclusive cchg=0704) RESPIRATORY SYNCYTIAL VIRUS (BEAKER) Not detected Not detected, Inconclusive (test egwi=2221) PARAINFLUENZA VIRUS 1 (BEAKER) (test Not detected Not detected, Inconclusive aetq=0056) PARAINFLUENZA VIRUS 2 (BEAKER) (test Not detected Not detected, Inconclusive myyg=0029) PARAINFLUENZA VIRUS 3 (BEAKER) (test Not detected Not detected, Inconclusive szcr=2018) PARAINFLUENZA VIRUS 4 (BEAKER) (test Not detected Not detected, Inconclusive zgar=0233) ADENOVIRUS (BEAKER) (test yasz=9797) Not detected Not detected, Inconclusive CORONAVIRUS 229E (BEAKER) (test Not detected Not detected, Inconclusive ycdt=1061) CORONAVIRUS HKU1 (BEAKER) (test Not detected Not detected, Inconclusive jmxz=5523) CORONAVIRUS NL63 (BEAKER) (test Not detected Not detected, Inconclusive fklq=8776) CORONAVIRUS OC43 (BEAKER) (test Not detected Not detected, Inconclusive pvvm=4334) BORDETELLA PERTUSSIS (BEAKER) (test Not detected Not detected, Inconclusive sgbt=4544) CHLAMYDOPHILA PNEUMONIAE (BEAKER) Not detected Not detected, Inconclusive (test xhdm=5610) MYCOPLASMA PNEUMONIAE (BEAKER) (test Not detected Not detected, Inconclusive cljy=1019) VANCOMYCIN LEVEL, [id number] 07:38:00 Test Item Value Reference Range Comments VANCOMYCIN TROUGH (BEAKER) (test xzea=453) 11.7 ug/mL 10.0-20.0 URINE [id number] 08:56:00 Test Item Value Reference Range Comments CULTURE (BEAKER) (test oluk=7261) No growth CBC W/PLT COUNT & AUTO [id number] 06:39:00 Test Item Value Reference Range Comments WHITE BLOOD CELL COUNT (BEAKER) (test qbwl=208) 2.4 K/ L 4.0-10.0 RED BLOOD CELL COUNT (BEAKER) (test rukh=743) 2.56 M/ L 4.00-5.00 HEMOGLOBIN (BEAKER) (test hxsr=572) 8.4 GM/DL 12.0-15.0 HEMATOCRIT (BEAKER) (test jeyx=890) 24.6 % 36.0-45.0 MEAN CORPUSCULAR VOLUME (BEAKER) (test spma=642) 96.4 fL 82.0-99.0 MEAN CORPUSCULAR HEMOGLOBIN (BEAKER) (test 33.0 pg 27.0-33.0 gown=885) MEAN CORPUSCULAR HEMOGLOBIN CONC (BEAKER) (test 34.2 GM/DL 32.0-36.0 qdke=793) RED CELL DISTRIBUTION WIDTH (BEAKER) (test 19.7 % 10.3-14.2 xutf=291) PLATELET COUNT (BEAKER) (test bldp=634) 108 K/CU MM 150-430 MEAN PLATELET VOLUME (BEAKER) (test wzyc=746) 8.8 fL 6.5-10.5 NUCLEATED RED BLOOD CELLS (BEAKER) (test 0 /100 WBC 0-0 ufcp=607) (MANUAL DIFFERENTIAL)2017-12-10 06:39:00 Test Item Value Reference Range Comments NEUTROPHILS - REL (DIFF) (BEAKER) (test jtfj=7096) 83 % LYMPHOCYTES - REL (DIFF) (BEAKER) (test cuwl=0312) 15 % MONOCYTES - REL (DIFF) (BEAKER) (test atmm=2835) 2 % NEUTROPHILS - ABS (DIFF) (BEAKER) (test pdlw=9965) 1.99 K/ L 1.80-8.00 LYMPHOCYTES - ABS (DIFF) (BEAKER) (test rqiv=6951) 0.36 K/ L 1.48-4.50 MONOCYTES - ABS (DIFF) (BEAKER) (test vmxs=3857) 0.05 K/ L 0.00-1.30 TOTAL COUNTED (BEAKER) (test lmhd=7087) 100 WBC MORPHOLOGY (BEAKER) (test nbta=971) Normal PLT MORPHOLOGY (BEAKER) (test wtse=661) Normal RBC MORPHOLOGY (BEAKER) (test ylhr=466) Normal POCT-GLUCOSE [id number] 14:39:00 Test Item Value Reference Range Comments POC-GLUCOSE METER (BEAKER) 125 mg/dL 70-110 TESTED AT [facility] [address] [place] [address] (test ohrk=2120) [facility] [place] [address] CBC W/PLT COUNT & AUTO [id number] 06:47:00 Test Item Value Reference Range Comments WHITE BLOOD CELL COUNT (BEAKER) (test 2.2 K/ L 4.0-10.0 uoyb=511) RED BLOOD CELL COUNT (BEAKER) (test 2.72 M/ L 4.00-5.00 yvnv=095) HEMOGLOBIN (BEAKER) (test sujo=338) 9.1 GM/DL 12.0-15.0 HEMATOCRIT (BEAKER) (test ydmp=831) 26.2 % 36.0-45.0 MEAN CORPUSCULAR VOLUME (BEAKER) (test 96.3 fL 82.0-99.0 pyox=429) MEAN CORPUSCULAR HEMOGLOBIN (BEAKER) 33.3 pg 27.0-33.0 (test tcmu=833) MEAN CORPUSCULAR HEMOGLOBIN CONC 34.5 GM/DL 32.0-36.0 (BEAKER) (test ugof=753) RED CELL DISTRIBUTION WIDTH (BEAKER) 18.3 % 10.3-14.2 (test mjuj=080) PLATELET COUNT (BEAKER) (test nswp=123) 129 K/CU MM 150-430 No clot detected MEAN PLATELET VOLUME (BEAKER) (test 7.8 fL 6.5-10.5 yplw=157) NEUTROPHILS RELATIVE PERCENT (BEAKER) 81 % (test cwul=159) LYMPHOCYTES RELATIVE PERCENT (BEAKER) 14 % (test kkvz=505) MONOCYTES RELATIVE PERCENT (BEAKER) 4 % (test pwkf=730) EOSINOPHILS RELATIVE PERCENT (BEAKER) 0 % (test rumk=548) BASOPHILS RELATIVE PERCENT (BEAKER) 0 % (test cjue=915) NEUTROPHILS ABSOLUTE COUNT (BEAKER) 1.80 K/ L 1.80-8.00 (test lowq=092) LYMPHOCYTES ABSOLUTE COUNT (BEAKER) 0.30 K/ L 1.48-4.50 (test cdtk=482) MONOCYTES ABSOLUTE COUNT (BEAKER) (test 0.10 K/ L 0.00-1.30 qmew=395) EOSINOPHILS ABSOLUTE COUNT (BEAKER) 0.00 K/ L 0.00-0.50 (test xpfv=960) BASOPHILS ABSOLUTE COUNT (BEAKER) (test 0.00 K/ L 0.00-0.20 fxtb=934) BASIC METABOLIC [id number] 05:54:00 Test Item Value Reference Range Comments SODIUM (BEAKER) (test 138 meq/L 135-148 llie=735) POTASSIUM (BEAKER) (test 3.9 meq/L 3.6-5.5 imob=351) CHLORIDE (BEAKER) (test 105 meq/L 98-106 hqnr=790) CO2 (BEAKER) (test 26 meq/L 20-29 ysdx=949) BLOOD UREA NITROGEN 14 mg/dL 10-26 (BEAKER) (test xjdf=742) CREATININE (BEAKER) (test 0.76 mg/dL 0.50-1.20 adyh=216) GLUCOSE RANDOM (BEAKER) 84 mg/dL 70-110 (test loba=998) CALCIUM (BEAKER) (test 8.2 mg/dL 8.5-10.5 utmw=577) EGFR (BEAKER) (test 80 mL/min/1.73 sq m ESTIMATED GFR IS NOT jkzn=7730) ACCURATE CREATININE CLEARANCE IN PREDICTING GLOMERULAR FILTRATION RATE. ESTIMATED GFR IS NOT APPLICABLE FOR DIALYSIS PATIENTS. RAD, CHEST, 2 [id number] 19:36:00Reason for exam:->FEVERIs the patient ?->NoShould this be performed at the bedside?->NoFINAL REPORT Chest, two views HISTORY: Fever COMPARISON: 10/20/17 IMPRESSION:No focal consolidation. No large pleural effusion or pneumothorax. Surgical clips overlie the right chest. Chest port catheter tip overlies the SVC /RA junction. Cardiomediastinal silhouette is within normal limits. Surgical clips in the right upper quadrant. No acute osseous abnormality. Signed: Albert Willis [facility] Verified Date/Time: 12/08/2017 19:36:34 Reading Location: [address] Consult Reading Room URINALYSIS W/ [id number] 19:33:00 Test Item Value Reference Range Comments COLOR (BEAKER) (test slfq=159) Yellow CLARITY (BEAKER) (test cjed=438) Clear SPECIFIC GRAVITY UA (BEAKER) (test ukqd=643) <= 1.001-1.035 PH UA (BEAKER) (test ieeg=398) 5.5 5.0-8.0 PROTEIN UA (BEAKER) (test ixyi=996) Negative Negative GLUCOSE UA (BEAKER) (test evne=468) Negative Negative KETONES UA (BEAKER) (test rbyd=392) Negative Negative BILIRUBIN UA (BEAKER) (test dwhi=418) Negative Negative BLOOD UA (BEAKER) (test nplx=059) Negative Negative NITRITE UA (BEAKER) (test apml=305) Negative Negative LEUKOCYTE ESTERASE UA (BEAKER) (test kuqf=147) Negative Negative UROBILINOGEN UA (BEAKER) (test tlck=532) 0.2 mg/dL 0.2-1.0 BACTERIA (BEAKER) (test dage=873) Occasional RBC UA-MANUAL (BEAKER) (test fhwc=4606) <5 /HPF WBC UA-MANUAL (BEAKER) (test pxfe=4857) <5 /HPF SQUAMOUS EPITHELIAL MANUAL (BEAKER) (test <5 /HPF jghb=3774) SOURCE(BEAKER) (test iozk=8988) COMPREHENSIVE METABOLIC [id number] 19:01:00 Test Item Value Reference Range Comments TOTAL PROTEIN (BEAKER) 8.1 gm/dL 6.0-8.5 (test zzcn=617) ALBUMIN (BEAKER) (test 4.1 g/dL 3.5-5.0 nbjv=1572) ALKALINE PHOSPHATASE 75 U/L 30-115 (BEAKER) (test umvk=427) BILIRUBIN TOTAL (BEAKER) 0.6 mg/dL 0.1-1.2 (test snko=751) SODIUM (BEAKER) (test 132 meq/L 135-148 iycq=791) POTASSIUM (BEAKER) (test 3.6 meq/L 3.6-5.5 pujc=319) CHLORIDE (BEAKER) (test 97 meq/L 98-106 pupe=056) CO2 (BEAKER) (test 23 meq/L 20-29 yxod=302) BLOOD UREA NITROGEN 18 mg/dL 10-26 (BEAKER) (test nqvr=028) CREATININE (BEAKER) (test 1.02 mg/dL 0.50-1.20 vvgd=981) GLUCOSE RANDOM (BEAKER) 102 mg/dL 70-110 (test arwx=696) CALCIUM (BEAKER) (test 8.6 mg/dL 8.5-10.5 xheq=815) AST (SGOT) (BEAKER) (test 38 U/L 5-40 njjm=841) ALT (SGPT) (BEAKER) (test 49 U/L 5-50 oaae=729) EGFR (BEAKER) (test 57 mL/min/1.73 sq m ESTIMATED GFR IS NOT eiej=0326) ACCURATE CREATININE CLEARANCE IN PREDICTING GLOMERULAR FILTRATION RATE. ESTIMATED GFR IS NOT APPLICABLE FOR DIALYSIS PATIENTS. LACTIC ACID, VENOUS, WHOLE [id number] 18:53:00 Test Item Value Reference Range Comments LACTATE BLOOD VENOUS (2) (BEAKER) (test 0.8 mmol/L 0.5-2.2 zjnj=2245) Effective 11/28/2015: Units/Reference Range ChangeNew: 0.5-2.2 mmol/L Previous: 5 -18 mg/dLCBC W/PLT COUNT & AUTO [id number] 18:36:00 Test Item Value Reference Range Comments WHITE BLOOD CELL COUNT (BEAKER) (test tmne=247) 3.5 K/ L 4.0-10.0 RED BLOOD CELL COUNT (BEAKER) (test gkid=399) 2.95 M/ L 4.00-5.00 HEMOGLOBIN (BEAKER) (test uqld=372) 9.7 GM/DL 12.0-15.0 HEMATOCRIT (BEAKER) (test pnex=090) 28.5 % 36.0-45.0 MEAN CORPUSCULAR VOLUME (BEAKER) (test atqg=471) 96.6 fL 82.0-99.0 MEAN CORPUSCULAR HEMOGLOBIN (BEAKER) (test 32.9 pg 27.0-33.0 cwqi=778) MEAN CORPUSCULAR HEMOGLOBIN CONC (BEAKER) (test 34.0 GM/DL 32.0-36.0 cffp=132) RED CELL DISTRIBUTION WIDTH (BEAKER) (test 18.5 % 10.3-14.2 wkbq=340) PLATELET COUNT (BEAKER) (test ajvc=307) 187 K/CU MM 150-430 MEAN PLATELET VOLUME (BEAKER) (test engn=643) 7.8 fL 6.5-10.5 NEUTROPHILS RELATIVE PERCENT (BEAKER) (test 84 % kkqd=968) LYMPHOCYTES RELATIVE PERCENT (BEAKER) (test 10 % yrig=570) MONOCYTES RELATIVE PERCENT (BEAKER) (test 5 % efxa=990) EOSINOPHILS RELATIVE PERCENT (BEAKER) (test 0 % ehpy=447) BASOPHILS RELATIVE PERCENT (BEAKER) (test 0 % cwsk=144) NEUTROPHILS ABSOLUTE COUNT (BEAKER) (test 2.90 K/ L 1.80-8.00 ijqy=831) LYMPHOCYTES ABSOLUTE COUNT (BEAKER) (test 0.40 K/ L 1.48-4.50 qmoj=458) MONOCYTES ABSOLUTE COUNT (BEAKER) (test 0.20 K/ L 0.00-1.30 vjvv=328) EOSINOPHILS ABSOLUTE COUNT (BEAKER) (test 0.00 K/ L 0.00-0.50 zuzw=012) BASOPHILS ABSOLUTE COUNT (BEAKER) (test 0.00 K/ L 0.00-0.20 newn=282) BLOOD [id number] 13:00:00 Test Item Value Reference Range Comments CULTURE (BEAKER) (test twtx=4552) No growth in 5 days BLOOD [id number] 10:00:00 Test Item Value Reference Range Comments CULTURE (BEAKER) (test vqea=1422) No growth in 5 days VANCOMYCIN LEVEL, [id number] 14:26:00 Test Item Value Reference Range Comments VANCOMYCIN TROUGH (BEAKER) (test dufh=204) 9.8 ug/mL 10.0-20.0 VANCOMYCIN DOSING BY RX PER DR. Kowalski PRIOR TO 4th DOSE ON 10/22/17 AT13: 30URINE [id number] 08:16:00 Test Item Value Reference Range Comments CULTURE (BEAKER) (test crbu=7998) No growth (MANUAL DIFFERENTIAL)2017-10-22 07:06:00 Test Item Value Reference Range Comments NEUTROPHILS - REL (DIFF) (BEAKER) (test uddu=2551) 69 % LYMPHOCYTES - REL (DIFF) (BEAKER) (test vbht=6358) 27 % MONOCYTES - REL (DIFF) (BEAKER) (test vvhn=4812) 4 % NEUTROPHILS - ABS (DIFF) (BEAKER) (test byxq=4925) 1.52 K/ L 1.80-8.00 LYMPHOCYTES - ABS (DIFF) (BEAKER) (test huom=7437) 0.59 K/ L 1.48-4.50 MONOCYTES - ABS (DIFF) (BEAKER) (test twsk=2906) 0.09 K/ L 0.00-1.30 TOTAL COUNTED (BEAKER) (test zlhb=8978) 100 WBC MORPHOLOGY (BEAKER) (test xunt=369) Normal PLT MORPHOLOGY (BEAKER) (test iaop=051) Normal RBC MORPHOLOGY (BEAKER) (test byka=904) Normal COMPREHENSIVE METABOLIC [id number] 06:39:00 Test Item Value Reference Range Comments TOTAL PROTEIN (BEAKER) 6.8 gm/dL 6.0-8.5 (test cvgp=542) ALBUMIN (BEAKER) (test 3.7 g/dL 3.5-5.0 dmni=0874) ALKALINE PHOSPHATASE 111 U/L 30-115 (BEAKER) (test psic=757) BILIRUBIN TOTAL (BEAKER) 0.3 mg/dL 0.1-1.2 (test bdcq=575) SODIUM (BEAKER) (test 138 meq/L 135-148 bcdo=472) POTASSIUM (BEAKER) (test 3.9 meq/L 3.6-5.5 nzdk=147) CHLORIDE (BEAKER) (test 102 meq/L 98-106 iqtm=247) CO2 (BEAKER) (test 28 meq/L 20-29 hhbx=746) BLOOD UREA NITROGEN 9 mg/dL 10-26 (BEAKER) (test ewus=428) CREATININE (BEAKER) (test 0.70 mg/dL 0.50-1.20 ztar=542) GLUCOSE RANDOM (BEAKER) 85 mg/dL 70-110 (test xpxk=577) CALCIUM (BEAKER) (test 9.1 mg/dL 8.5-10.5 eywh=862) AST (SGOT) (BEAKER) (test 141 U/L 5-40 pbeu=474) ALT (SGPT) (BEAKER) (test 276 U/L 5-50 wdta=704) EGFR (BEAKER) (test 88 mL/min/1.73 sq m ESTIMATED GFR IS NOT jdhq=9128) ACCURATE CREATININE CLEARANCE IN PREDICTING GLOMERULAR FILTRATION RATE. ESTIMATED GFR IS NOT APPLICABLE FOR DIALYSIS PATIENTS. CBC W/PLT COUNT & AUTO [id number] 06:22:00 Test Item Value Reference Range Comments WHITE BLOOD CELL COUNT (BEAKER) (test gohg=407) 2.2 K/ L 4.0-10.0 RED BLOOD CELL COUNT (BEAKER) (test eejw=413) 3.12 M/ L 4.00-5.00 HEMOGLOBIN (BEAKER) (test axvd=322) 9.7 GM/DL 12.0-15.0 HEMATOCRIT (BEAKER) (test nvvt=095) 28.5 % 36.0-45.0 MEAN CORPUSCULAR VOLUME (BEAKER) (test dfhw=933) 91.2 fL 82.0-99.0 MEAN CORPUSCULAR HEMOGLOBIN (BEAKER) (test 31.2 pg 27.0-33.0 ygat=200) MEAN CORPUSCULAR HEMOGLOBIN CONC (BEAKER) (test 34.2 GM/DL 32.0-36.0 aeit=061) RED CELL DISTRIBUTION WIDTH (BEAKER) (test 12.4 % 10.3-14.2 xcbb=744) PLATELET COUNT (BEAKER) (test mipw=357) 173 K/CU MM 150-430 MEAN PLATELET VOLUME (BEAKER) (test jjpy=240) 7.6 fL 6.5-10.5 NUCLEATED RED BLOOD CELLS (BEAKER) (test 0 /100 WBC 0-0 rqwl=674) HEPATIC FUNCTION [id number] 16:17:00 Test Item Value Reference Range Comments TOTAL PROTEIN (BEAKER) (test twzo=715) 6.3 gm/dL 6.0-8.5 ALBUMIN (BEAKER) (test ccll=9261) 3.5 g/dL 3.5-5.0 BILIRUBIN TOTAL (BEAKER) (test mtex=975) 0.3 mg/dL 0.1-1.2 BILIRUBIN DIRECT (BEAKER) (test pvfm=222) 0.2 mg/dL 0.0-0.4 ALKALINE PHOSPHATASE (BEAKER) (test gjqf=629) 106 U/L 30-115 AST (SGOT) (BEAKER) (test zbsu=860) 208 U/L 5-40 ALT (SGPT) (BEAKER) (test gqkf=512) 286 U/L 5-50 CBC W/PLT COUNT & AUTO [id number] 06:13:00 Test Item Value Reference Range Comments WHITE BLOOD CELL COUNT (BEAKER) (test dhnq=090) 2.9 K/ L 4.0-10.0 RED BLOOD CELL COUNT (BEAKER) (test lkpd=471) 3.10 M/ L 4.00-5.00 HEMOGLOBIN (BEAKER) (test fsab=283) 9.7 GM/DL 12.0-15.0 HEMATOCRIT (BEAKER) (test bvve=873) 28.3 % 36.0-45.0 MEAN CORPUSCULAR VOLUME (BEAKER) (test xrlg=998) 91.2 fL 82.0-99.0 MEAN CORPUSCULAR HEMOGLOBIN (BEAKER) (test 31.2 pg 27.0-33.0 licb=142) MEAN CORPUSCULAR HEMOGLOBIN CONC (BEAKER) (test 34.3 GM/DL 32.0-36.0 fhri=834) RED CELL DISTRIBUTION WIDTH (BEAKER) (test 12.3 % 10.3-14.2 zhdp=552) PLATELET COUNT (BEAKER) (test yjqw=453) 178 K/CU MM 150-430 MEAN PLATELET VOLUME (BEAKER) (test xclw=466) 7.5 fL 6.5-10.5 NUCLEATED RED BLOOD CELLS (BEAKER) (test 0 /100 WBC 0-0 ovlz=120) (MANUAL DIFFERENTIAL)2017-10-21 06:13:00 Test Item Value Reference Range Comments NEUTROPHILS - REL (DIFF) (BEAKER) (test pxkc=4461) 76 % LYMPHOCYTES - REL (DIFF) (BEAKER) (test qwgs=3348) 16 % MONOCYTES - REL (DIFF) (BEAKER) (test yuec=0296) 5 % BANDS - REL (DIFF) (BEAKER) (test dezg=6221) 3 % 0-10 NEUTROPHILS - ABS (DIFF) (BEAKER) (test cgvs=6309) 2.20 K/ L 1.80-8.00 LYMPHOCYTES - ABS (DIFF) (BEAKER) (test ezln=0506) 0.46 K/ L 1.48-4.50 MONOCYTES - ABS (DIFF) (BEAKER) (test wggy=6901) 0.15 K/ L 0.00-1.30 BANDS-ABS (DIFF) (BEAKER) (test oduu=0083) 0.1 K/ L 0.0-0.8 TOTAL COUNTED (BEAKER) (test dqtz=3119) 100 BANDS + SEGMENTED NEUTROPHILS (BEAKER) (test 2.29 iqdy=8605) WBC MORPHOLOGY (BEAKER) (test tnrm=397) Normal PLT MORPHOLOGY (BEAKER) (test uwfy=574) Normal RBC MORPHOLOGY (BEAKER) (test vjff=463) Normal BASIC METABOLIC [id number] 05:25:00 Test Item Value Reference Range Comments SODIUM (BEAKER) (test 139 meq/L 135-148 xdwa=209) POTASSIUM (BEAKER) (test 3.7 meq/L 3.6-5.5 wrab=815) CHLORIDE (BEAKER) (test 104 meq/L 98-106 cqrp=303) CO2 (BEAKER) (test 27 meq/L 20-29 uhzy=920) BLOOD UREA NITROGEN 12 mg/dL 10-26 (BEAKER) (test mmvs=915) CREATININE (BEAKER) (test 0.80 mg/dL 0.50-1.20 fvub=598) GLUCOSE RANDOM (BEAKER) 77 mg/dL 70-110 (test geaf=423) CALCIUM (BEAKER) (test 8.5 mg/dL 8.5-10.5 lore=603) EGFR (BEAKER) (test 75 mL/min/1.73 sq m ESTIMATED GFR IS NOT ogis=5219) ACCURATE CREATININE CLEARANCE IN PREDICTING GLOMERULAR FILTRATION RATE. ESTIMATED GFR IS NOT APPLICABLE FOR DIALYSIS PATIENTS. CT, BRAIN, WITHOUT [id number] 17:12:00Reason for exam:->headacheIs the patient ?->NoWhat is the patient's sedation requirement?->No SedationFINAL REPORT CT Head without contrast CLINICAL HISTORY: [...] infarct or intracranial hemorrhage. There is no hydrocephalus , midline shift, or apparent mass effect. There are no extra-axial fluid collections. The skull is intact. There is an air-fluid level in the sphenoid sinus. IMPRESSION: No CT evidence of acute infarct, hemorrhage, or hydrocephalus. Acute sphenoid sinusitis. Signed: Hailey Lucas [facility] Verified Date/Time: 10/20/2017 17:12:46 Reading Location: [facility] Radiology Reading Room Electronically signed by: HAILEY LUCAS M.D. on 05:12 PMCT, [id number] 09:17:00Reason for exam:->fever, constipation, abd discomfortIs the patient ?->NoWhat is the patient' s sedation requirement?->No SedationFINAL REPORT INDICATION:52-year-old female with fever and abdominal pain. COMPARISON: April 21, 2014 TECHNIQUE: CT of the Abdomen and Pelvis WITH intravenous contrast. Enteric contrast was not used. The exam was performed according to our department dose-optimization protocol, which includes automated exposure control, adjustments of mA and kV according to patient size. Iterative reconstructions are also sometimes employed. FINDINGS:Patient is status post cholecystectomy. Prominence of the [...] demonstrated. Patient is status post hysterectomy. No pelvicfree fluid or pelvic lymphadenopathy. There is scattered [...] hypertension, recommend correlation with liver function test andpatient's history. Constipation. Signed: Weston Chavez [facility] Verified Date/Time: 10/20/2017 09:17:32 Reading Location: [facility] [id number] [facility] Consult Reading Room RAD, CHEST, 2 [id number] 08:54:00Reason for exam:->FEVERFINAL REPORT Chest two views INDICATION: Fever COMPARISON: 06/02/2014 IMPRESSION: There are suspected bilateral nipple shadows. Increased reticulonodular interstitial opacities could indicate mild atypical pneumonitis given the history. Consider short term radiographic follow up for re- evaluation. There is no pneumothorax or pleural effusion. Heart size is within normal limits. A left chest Port-A-Cath, right breast surgical clips, osteopenia , mild spine curvature, degenerativespine changes, and cholecystectomy clips are noted. Signed: Savanah Wakefield [facility] Verified Date/Time: 2017 08:54:43 Reading Location: [facility] Radiology Reading Room HEPATIC FUNCTION [id number] 08:27:00 Test Item Value Reference Range Comments TOTAL PROTEIN (BEAKER) (test nqfh=955) 8.1 gm/dL 6.0-8.5 ALBUMIN (BEAKER) (test vfvr=5322) 4.4 g/dL 3.5-5.0 BILIRUBIN TOTAL (BEAKER) (test zmjd=580) 0.4 mg/dL 0.1-1.2 BILIRUBIN DIRECT (BEAKER) (test xzqs=095) 0.2 mg/dL 0.0-0.4 ALKALINE PHOSPHATASE (BEAKER) (test tulu=076) 128 U/L 30-115 AST (SGOT) (BEAKER) (test fvrc=172) 88 U/L 5-40 ALT (SGPT) (BEAKER) (test uwfe=963) 281 U/L 5-50 [id number] 08:24:00 Test Item Value Reference Range Comments LIPASE (BEAKER) (test yids=657) 42 U/L 6-51 BASIC METABOLIC [id number] 08:21:00 Test Item Value Reference Range Comments SODIUM (BEAKER) (test 133 meq/L 135-148 kkez=260) POTASSIUM (BEAKER) (test 4.1 meq/L 3.6-5.5 karw=508) CHLORIDE (BEAKER) (test 97 meq/L 98-106 kmjc=153) CO2 (BEAKER) (test 26 meq/L 20-29 ruyt=169) BLOOD UREA NITROGEN 17 mg/dL 10-26 (BEAKER) (test dzac=266) CREATININE (BEAKER) (test 1.00 mg/dL 0.50-1.20 hgks=852) GLUCOSE RANDOM (BEAKER) 99 mg/dL 70-110 (test emvv=210) CALCIUM (BEAKER) (test 9.3 mg/dL 8.5-10.5 glsp=334) EGFR (BEAKER) (test 58 mL/min/1.73 sq m ESTIMATED GFR IS NOT vzds=3870) ACCURATE CREATININE CLEARANCE IN PREDICTING GLOMERULAR FILTRATION RATE. ESTIMATED GFR IS NOT APPLICABLE FOR DIALYSIS PATIENTS. LACTIC ACID, VENOUS, WHOLE [id number] 08:15:00 Test Item Value Reference Range Comments LACTATE BLOOD VENOUS (2) (BEAKER) (test 1.1 mmol/L 0.5-2.2 rjul=6103) Effective 11/28/2015: Units/Reference Range ChangeNew: 0.5-2.2 mmol/L Previous: 5 -18 mg/dLCBC W/PLT COUNT & AUTO [id number] 08:11:00 Test Item Value Reference Range Comments WHITE BLOOD CELL COUNT (BEAKER) (test jcql=841) 4.7 K/ L 4.0-10.0 RED BLOOD CELL COUNT (BEAKER) (test wlrf=216) 3.71 M/ L 4.00-5.00 HEMOGLOBIN (BEAKER) (test zvib=611) 11.5 GM/DL 12.0-15.0 HEMATOCRIT (BEAKER) (test krgp=675) 33.7 % 36.0-45.0 MEAN CORPUSCULAR VOLUME (BEAKER) (test epwr=667) 91.0 fL 82.0-99.0 MEAN CORPUSCULAR HEMOGLOBIN (BEAKER) (test 31.1 pg 27.0-33.0 mbmh=812) MEAN CORPUSCULAR HEMOGLOBIN CONC (BEAKER) (test 34.2 GM/DL 32.0-36.0 hplw=780) RED CELL DISTRIBUTION WIDTH (BEAKER) (test 12.3 % 10.3-14.2 srnq=839) PLATELET COUNT (BEAKER) (test xscy=659) 245 K/CU MM 150-430 MEAN PLATELET VOLUME (BEAKER) (test jyvv=167) 7.7 fL 6.5-10.5 NUCLEATED RED BLOOD CELLS (BEAKER) (test 0 /100 WBC 0-0 qtsl=327) NEUTROPHILS RELATIVE PERCENT (BEAKER) (test 93 % znnz=852) LYMPHOCYTES RELATIVE PERCENT (BEAKER) (test 2 % zubw=570) MONOCYTES RELATIVE PERCENT (BEAKER) (test 5 % aacv=937) EOSINOPHILS RELATIVE PERCENT (BEAKER) (test 0 % lwsj=952) BASOPHILS RELATIVE PERCENT (BEAKER) (test 0 % rnqf=439) NEUTROPHILS ABSOLUTE COUNT (BEAKER) (test 4.40 K/ L 1.80-8.00 kqlx=963) LYMPHOCYTES ABSOLUTE COUNT (BEAKER) (test 0.10 K/ L 1.48-4.50 yrdc=162) MONOCYTES ABSOLUTE COUNT (BEAKER) (test 0.20 K/ L 0.00-1.30 mfwj=862) EOSINOPHILS ABSOLUTE COUNT (BEAKER) (test 0.00 K/ L 0.00-0.50 oguv=568) BASOPHILS ABSOLUTE COUNT (BEAKER) (test 0.00 K/ L 0.00-0.20 dqks=140) RAPID INFLUENZA A&B [id number] 07:58:00 Test Item Value Reference Range Comments RAPID INFLUENZA A AG (BEAKER) (test Negative Negative, Inconclusive hqcb=2727) RAPID INFLUENZA B AG (BEAKER) (test Negative Negative, Inconclusive qptf=6325) URINALYSIS W/ [id number] 07:55:00 Test Item Value Reference Range Comments COLOR (BEAKER) (test tqbu=071) Yellow CLARITY (BEAKER) (test ngsw=743) Clear SPECIFIC GRAVITY UA (BEAKER) (test cflq=201) 1.015 1.001-1.035 PH UA (BEAKER) (test jxll=148) 6.0 5.0-8.0 PROTEIN UA (BEAKER) (test rcmb=642) Negative Negative GLUCOSE UA (BEAKER) (test ipua=678) Negative Negative KETONES UA (BEAKER) (test tnye=901) Negative Negative BILIRUBIN UA (BEAKER) (test btmn=029) Negative Negative BLOOD UA (BEAKER) (test lfxq=300) Trace Negative NITRITE UA (BEAKER) (test fdqx=853) Negative Negative LEUKOCYTE ESTERASE UA (BEAKER) (test urbd=425) Negative Negative UROBILINOGEN UA (BEAKER) (test okmr=994) 0.2 mg/dL 0.2-1.0 BACTERIA (BEAKER) (test rqko=638) Few MUCUS (BEAKER) (test lcxy=8162) Few RBC UA-MANUAL (BEAKER) (test lewi=3298) 5-10 /HPF WBC UA-MANUAL (BEAKER) (test takx=2761) 5-10 /HPF SQUAMOUS EPITHELIAL MANUAL (BEAKER) (test <5 /HPF nhzi=5036) SOURCE(BEAKER) (test euqm=3727)
--- NOTE | 2018-04-01 04:45 | ER ---
Nurse's Notes [facility] Name: Renate Gold Age: 53 yrs Sex: Female : 1965 Arrival Date: 04/01/2018 Time: 03:19 Bed 6 Private MD: Diagnosis: Dependence on supplemental oxygen Presentation: 04/01 03:20 Presenting complaint: Patient states: became SOB after her oxygen tank became empty. pt ak1 called EMS for oxygen. pt denies SOB at this time. pt was just released from [facility] yesterday. pt stated her new oxygen tank would be delivered today before noon. pt does not know the name of the company supplying the oxygen. Transition of care: patient was not received from another setting of care. Onset of symptoms was April 01, 2018. Risk Assessment: Do you want to hurt yourself or someone else? Patient reports no desire to harm self or others. Initial Sepsis Screen: Does the patient meet any 2 criteria? No. Patient's initial sepsis screen is negative. Does the patient have a suspected source of infection? No. Patient's initial sepsis screen is negative. Care prior to arrival: None. 03:20 Method Of Arrival: EMS: [facility] ak1 03:20 Acuity: RICH 3 ak1 Triage Assessment: 03:26 General: Appears in no apparent distress. Behavior is calm, cooperative. Pain: Denies ak1 pain. EENT: No signs and/or symptoms were reported regarding the EENT system. Neuro: No deficits noted. Cardiovascular: No deficits noted. 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 pt stated she "feels better" pt denies SOB at this time. pt uses home oxygen 2L via NC. GI: No signs and/or symptoms were reported involving the gastrointestinal system. : No signs and/or symptoms were reported regarding the genitourinary system. Derm: No signs and/or symptoms reported regarding the dermatologic system. Musculoskeletal: No signs and/or symptoms reported regarding the musculoskeletal system. 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 - Social history:: Smoking status: Patient/guardian denies using tobacco. - Ebola Screening: : No symptoms or risks identified at this time. - Family history:: not pertinent. - Hospitalizations: : Patient was recently seen at. Screenin:28 Abuse screen: Denies threats or abuse. Denies injuries from another. Nutritional ak1 screening: No deficits noted. Tuberculosis screening: No symptoms or risk factors identified. Fall Risk None identified. Assessment: 03:31 Reassessment: Patient appears in no apparent distress at this time. No changes from ak1 previously documented assessment. see triage assessment. pt , Dilshad, contacted at [phone] for home oxygen delivery company name and number. Dilshad stated he will find the information and call back. 03:37 Reassessment: Contact Tanya with [facility] at [phone] who will have on fc call personal call us back to discuss O2 delivery. 03:55 Reassessment: Cash with [facility] [phone] called to state that he could fc deliver to pts home by 0830. Pts Dilshad [phone] notified that they would be there at their home by 0830 to bring O2 and then would could see about transport back home for pt. He was very thankful. I explained that we would let him know as soon as we could about transportation IF that could be arranged. 04:39 Reassessment: Patient appears in no apparent distress at this time. pt informed of plan ak1 to keep her in ER 6 until her home oxygen can be delivered. 05:39 Reassessment: Patient appears in no apparent distress at this time. No changes from ak1 previously documented assessment. 06:53 Reassessment: Patient appears in no apparent distress at this time. No changes from ak1 previously documented assessment. 06:59 Reassessment: report given to Teressa Stapleton RN and Jasmine GOFF.. ak1 07:34 Reassessment: Patient appears in no apparent distress at this time. No changes from tw2 previously documented assessment. 08:30 Reassessment: Charge nurse called and reported the oxygen is not at the [facility] house yet, he will call back once Home Health arrives. 08:45 Reassessment: Pt c/o soreness to the neck, requesting medication. Provider notified, jl7 see MAR for orders. Diet tray ordered. 08:56 Reassessment: Patient appears in no apparent distress at this time. No changes from tw2 previously documented assessment. pts will call when oxygen arrives at home. 09:15 Reassessment: Diet tray delivered. jl7 09:30 Reassessment: pt request to get mother to get oxygen tank and get her while he tw2 waits at home for her dialysis nurse. 10:32 Reassessment: Patient appears in no apparent distress at this time. No changes from tw2 previously documented assessment. [facility] is here for transport to pts home as spouse states oxygen has been set up at home. Vital Signs: 03:20 BP 149 / 92; Pulse 96; Resp 20; Temp 98.1(TE); Pulse Ox 95% on R/A; Weight 44.45 kg ak1 (R); Height 5 ft. 3 in. (160.02 cm) (R); Pain 0/10; 04:38 BP 141 / 85; Resp 20; Pulse Ox 100% on 2 lpm NC; ak1 05:39 BP 149 / 84; Pulse 86; Resp 18; Pulse Ox 99% on 2 lpm NC; ak1 06:52 BP 142 / 82; Pulse 92; Resp 18; Pulse Ox 97% on 2 lpm NC; Pain 0/10; ak1 07:34 BP 143 / 89; Pulse 91; Resp 19; Pulse Ox 98% on 2 lpm NC; tw2 08:56 BP 149 / 93; Pulse 93; Resp 17; Pulse Ox 100% on 2 lpm NC; tw2 09:28 BP 145 / 92; Pulse 96; Resp 18; Pulse Ox 100% on 2 lpm NC; jl7 10:32 BP 128 / 83; Pulse 91; Resp 17; Pulse Ox 100% on 2 lpm NC; tw2 03:20 Body Mass Index 17.36 (44.45 kg, 160.02 cm) ak1 ED Course: 03:19 Patient arrived in ED. ak1 03:22 Triage completed. ak1 03:26 Skyler Junior MD is Attending Physician. rn 03:26 Arm band placed on Patient placed in an exam room, on a stretcher, on oxygen, on pulse ak1 oximetry, Patient notified of wait time. 03:28 Patient has correct armband on for positive identification. Bed in low position. Call ak1 light in reach. Side rails up X2. Pulse ox on. NIBP on. Warm blanket given. 03:30 Lissy Martínez RN is Primary Nurse. ak1 04:45 Awaiting: pt will not be leaving ER until home oxygen can be delivered between 0800 and ak1 0830. 06:53 No provider procedures requiring assistance completed. Patient did not have IV access ak1 during this emergency room visit. 08:55 Primary Nurse role handed off by Lissy Martínez RN tw2 08:55 Teressa Cárdenas, [place] is Primary Nurse. tw2 Administered Medications: 08:51 Drug: Ibuprofen 600 mg Route: PO; jl7 10:00 Follow up: Response: No adverse reaction; Pain is decreased jl7 Outcome: 04:45 Discharge ordered by . rn 06:53 Condition: stable ak1 10:32 Discharged to home via ambulance, pt on o2 at 2L nc tw2 10:32 Discharge instructions given to patient, Instructed on discharge instructions, follow up and referral plans. 10:34 Patient left the ED. tw2 Signatures: Yoselin Perry RN Skyler Navarrete MD MD rn Krenek, Amber, RN RN ak1 Teressa Cárdenas RN RN tw2 Jasmine Medina RN RN jl7
--- NOTE | 2018-04-01 04:45 | EDPHYS ---
Physician Documentation [facility] Name: Renate Gold Age: 53 yrs Sex: Female : 1965 Arrival Date: 04/01/2018 Time: 03:19 Bed 6 Private MD: ED Physician Skyler Junior HPI: 04/01 03:29 This 53 yrs old Female presents to ER via EMS with complaints of oxygen tank rn empty at home. 03:29 The patient has shortness of breath at rest. Onset: The symptoms/episode began/occurred rn just prior to arrival. Duration: The symptoms are continuous. Severity of symptoms: At their worst the symptoms were mild in the emergency department the symptoms have improved. The patient has experienced similar episodes in the past. Reports sob, began at home this AM, was just discharged from hospital with a single oxygen tank yesterday, was supposed to last until today when oxygen tanks being delivered but somehow ran out of oxygen, she panicked and called 911, when placed back on oxygen had immediate relief, denies any new symptoms, has metastatic breast cancer, has undergone chemo, and just put on dialysis. Asymptomatic when placed back on oxygen. . 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 - Social history:: Smoking status: Patient/guardian denies using tobacco. - Ebola Screening: : No symptoms or risks identified at this time. - Family history:: not pertinent. - Hospitalizations: : Patient was recently seen at. ROS: 03:29 Constitutional: Negative for fever, chills, and weight loss, Eyes: Negative for injury, rn pain, redness, and discharge, Neck: Negative for injury, pain, and swelling, Cardiovascular: Negative for chest pain, palpitations, and edema, Respiratory: Negative for wheezing, and pleuritic chest pain, Abdomen/GI: Negative for abdominal pain, nausea, vomiting, diarrhea, and constipation, MS/Extremity: Negative for injury and deformity, Skin: Negative for injury, rash, and discoloration, Neuro: Negative for headache, weakness, numbness, tingling, and seizure. Exam: 03:29 Constitutional: Thin female, no acute distress Cardiovascular: Regular rate and rn rhythm with a normal S1 and S2. No gallops, murmurs, or rubs. Normal PMI, no JVD. No pulse deficits. Respiratory: Lungs have equal breath sounds bilaterally, mild crackles at bases, speaking full sentences Neuro: Awake and alert, GCS 15, oriented to person, place, time, and situation. Cranial nerves II-XII grossly intact. Motor strength 5/5 in all extremities. Sensory grossly intact. Vital Signs: 03:20 BP 149 / 92; Pulse 96; Resp 20; Temp 98.1(TE); Pulse Ox 95% on R/A; Weight 44.45 kg ak1 (R); Height 5 ft. 3 in. (160.02 cm) (R); Pain 0/10; 04:38 BP 141 / 85; Resp 20; Pulse Ox 100% on 2 lpm NC; ak1 05:39 BP 149 / 84; Pulse 86; Resp 18; Pulse Ox 99% on 2 lpm NC; ak1 06:52 BP 142 / 82; Pulse 92; Resp 18; Pulse Ox 97% on 2 lpm NC; Pain 0/10; ak1 07:34 BP 143 / 89; Pulse 91; Resp 19; Pulse Ox 98% on 2 lpm NC; tw2 08:56 BP 149 / 93; Pulse 93; Resp 17; Pulse Ox 100% on 2 lpm NC; tw2 09:28 BP 145 / 92; Pulse 96; Resp 18; Pulse Ox 100% on 2 lpm NC; jl7 10:32 BP 128 / 83; Pulse 91; Resp 17; Pulse Ox 100% on 2 lpm NC; tw2 03:20 Body Mass Index 17.36 (44.45 kg, 160.02 cm) ak1 MDM: 03:26 Patient medically screened. rn 04:37 Differential diagnosis: Anxiety Reaction needs oxygen. Data reviewed: vital signs, rn nurses notes, and as a result, I will discharge patient. Counseling: I had a detailed discussion with the patient and/or guardian regarding: the historical points, exam findings, and any diagnostic results supporting the discharge/admit diagnosis, the need for outpatient follow up, to return to the emergency department if symptoms worsen or persist or if there are any questions or concerns that arise at home. ED course: [facility], they are able to move up delivery of oxygen to patient's home to 8:30 AM, will dc home around that time, for now will allow to stay in ER on our oxygen as no other option available.. 04/01 08:42 Order name: Diet Regular; Complete Time: 08:43 jl7 Administered Medications: 08:51 Drug: Ibuprofen 600 mg Route: PO; jl7 10:00 Follow up: Response: No adverse reaction; Pain is decreased jl7 Disposition: 04/01/18 04:45 Discharged to Home. Impression: Dependence on supplemental oxygen. - Condition is Stable. - Discharge Instructions: Oxygen Use at Home. - Medication Reconciliation Form, Thank You Letter, Antibiotic Education, Prescription Opioid Use form. - Follow up: Private Physician; When: As needed; Reason: Recheck today's complaints, Re-evaluation by your physician. - Problem is an ongoing problem. - Symptoms have improved. Signatures: Skyler Junior MD MD rn Krenek, Amber RN RN ak1 Teressa Cárdenas RN RN tw2 Jasmine Medina RN RN jl7 Corrections: (The following items were deleted from the chart) 04:45 04:45 04/01/2018 04:45 Discharged to Home. Impression: Dyspnea, unspecified; Dependence rn on supplemental oxygen. Condition is Stable. Forms are Medication Reconciliation Form, Thank You Letter, Antibiotic Education, Prescription Opioid Use. Follow up: Private Physician; When: As needed; Reason: Recheck today's complaints, Re-evaluation by your physician. Problem is an ongoing problem. Symptoms have improved. rn 10:34 04:45 04/01/2018 04:45 Discharged to Home. Impression: Dependence on supplemental tw2 oxygen. Condition is Stable. Forms are Medication Reconciliation Form, Thank You Letter, Antibiotic Education, Prescription Opioid Use. Follow up: Private Physician; When: As needed; Reason: Recheck today's complaints, Re-evaluation by your physician. Problem is an ongoing problem. Symptoms have improved. rn
[2018-04-01] MEDS ORDERED: IBUPROFEN 400 MG TAB ONE (08:52)
[2018-04-01] MEDS ORDERED: IBUPROFEN 200 MG TAB PO ONE (08:52)
[2018-04-01 10:52] VITALS: TEMP 98.1
[2018-04-01 10:58] VITALS: O2SAT 100
[2018-04-01 11:01] VITALS: BP 128/83
== END 2018-04-01 10:34 | disposition home or self-care (01) ==
LOC: ER 03:11
DX: Z99.81 Dependence on supplemental oxygen (principal); N28.9 Disorder of kidney and ureter, unspecified; Z99.2 Dependence on renal dialysis; Z88.1 Allergy status to other antibiotic agents; Z88.2 Allergy status to sulfonamides; Z85.3 Personal history of malignant neoplasm of breast
CPT/HCPCS: 99284

== ENCOUNTER 2018-04-02 07:49 | Inpatient (IN) | payer OTHER ==
[2018-04-02] MEDS ORDERED: RSI MEDICATION KIT IV ONE (07:51)
--- OUTSIDE RECORDS SUMMARY | 2018-04-02 07:51 | XMS REPORT | Clinical Summary ---
:1965 Author Organization [facility] Address [address] [place] [address] Phone Care Team Providers Name Role Phone [...] in 2 hours if needed (maximum daily [id number]=[id number]). 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 Demand ischemia ([facility]) 03/18/2018 (HFpEF) heart failure with preserved ejection fraction (HCC) 03/18/2018 Thrombocytopenia ([facility]) 03/17/2018 Acute renal failure (ARF) ([facility]) 03/16/2018 Symptomatic anemia 03/16/2018 Metabolic acidosis 03/16/2018 Troponin level elevated 03/16/2018 Community acquired bacterial pneumonia 03/16/2018 Fever 12/11/2017 Breast cancer ([facility]) 12/11/2017 Sepsis due to undetermined organism without resultant organ failure ([facility]) Headache syndrome 10/21/2017 Other neutropenia ([facility]) 10/21/2017 Resolved Problems Problem Noted Date Resolved Date Sepsis ([facility]) 10/20/2017 12/09/2017 Abnormal LFTs (liver function tests) 10/20/2017 12/09/2017 Encounters Date Type Specialty Care Team Description 03/26/2018 Orders Only General Internal Medicine 03/17/2018 - [facility] General Internal William Wren MD Metabolic acidosis [...] 03/17/2018 Telephone Critical Care William Wren MD [id number] Call Medicine 03/16/2018 - [facility] General Internal Luis Fernando Kumar, Symptomatic anemia 03/17/2018 Encounter Medicine (Primary Andrew Pretty Dx);Generalized MD Fernie weakness;Essential hypertension;Cough;Sandi halley malignant neoplasm of breast with metastasis to other site, unspecified laterality (HCC);Acute renal failure, unspecified acute renal failure type (HCC);Dehydration;Comm unity acquired bacterial pneumonia;Troponin level elevated 12/08/2017 - [facility] General Internal Norberto Ruggiero Fever, unspecified 12/12/2017 Encounter Medicine MD Martin fever cause (Primary Andrew Pretty Dx);LeukopeniaFernie MD unspecified type;Hyponatremia;[place] static breast cancer (HCC);Sepsis due to undetermined organism without resultant organ failure (HCC) 10/20/2017 - [facility] General Internal Wai Bernal, Fever, unknown origin 10/23/2017 Encounter Medicine (Primary Dx);On Andrew Pretty antineoplastic MD Fernie chemotherapy;Other specified hypotension;Generalize d headache;Abnormal LFTs (liver function tests);Sepsis, due to unspecified organism (HCC);Headache syndrome;Other neutropenia (HCC) after 04/01/2017 Family History Medical History Relation Name Comments [...] Not on file Implants Implanted Type Area Animal Husbandman Device Expiration Model / Identifier Date Serial / Lot Port,Mri Powerport Isp 6fr Chronoflex W/Suture Plugs - [id number] Catheter C R BARD 05/26/2015 [id number] / Implanted: Qty: 1 on 04/28/2014 by Luly Escalante Ports/[employer] PERIPHERAL [id number] / l Line [id number] Procedures Procedure Name Priority Date/Time Associated Diagnosis Comments CRITICAL CARE Routine 03/16/2018 11:25 AM Results for this CDT procedure are in the results section. after 04/01/2017 Results Hemodialysis (03/31/2018 1:55 PM)Only the most [...] 1 % Specimen Performing Laboratory Blood [facility] [address] [address] CBC with platelet count + automated diff (03/31/2018 4:27 AM)Only the most recent of19 resultswithin the time period is included. Specimen Performing Laboratory Blood Narrative The following orders were created for panel order CBC with platelet count + automated diff. Procedure Abnormality Status --------- ------ CBC with platelet count ...[[id number]]AbnormalFinal result Please view results for these tests on the individual orders. Magnesium (03/31/2018 4:27 AM)Only the most recent of12 resultswithin the time period is included. Component Value Ref Range Magnesium 1.9 1.6 - 2.6 mg/dL Specimen Performing Laboratory [address] [address] Basic Metabolic Panel (03/31/2018 4:27 AM)Only the [...] APPLICABLE FOR DIALYSIS PATIENTS. Specimen Performing Laboratory [address] [address] POC-Glucose meter (03/30/2018 6:39 PM)Only the most recent of4 resultswithin the time period is included. Component Value Ref Range POC-Glucose Meter 121 (H)Comment: TESTED AT [address] 70 - 110 mg/[place] [address] Specimen Performing Laboratory [address] [address] IR CV Access Fluoro (03/30/2018 4:42 PM) Specimen Performing Laboratory GE RIS Narrative FINAL REPORT Tunneled dialysis catheter insertion. History: Renal failure. Modality: Sonography and fluoroscopy. Sedation: Versed 0.5 mg and fentanyl 25 mcg was given intravenously for conscious sedation.Vital signs were monitored throughout the procedure by a nurse, and remained stable. Physician intra-service time was 15 minutes. Computer Graphics Illustrator:Blessing. Metal Building Assembler:None. Approach: Right internal jugular vein Estimated blood loss:< 5 cc. Specimen: None. Fluoroscopy Time: 0.1 min.Dose (Ka,r): 0.1 mGy. Technique: Informed written consent was obtained.Discussion of risks, benefits, and alternatives were made with the patient. The patient expressed understanding and agreed to proceed.All elements maximal sterile barrier technique was utilized for this procedure, including utilization of sterile scrub solution for skin prep, a large sterile sheet to cover the areas of the patient that were not prepped, and hand hygiene, mask, head covering, and sterile gown for performing radiologist and scrub technologist. The skin was anesthetized with 2% lidocaine.Ultrasound evaluation showed a patent and compressible right internal jugular vein, which was punctured under direct real-time ultrasound guidance with a micropuncture needle.An ultrasound image was saved to PACS. A 0.018 inch wire was placed through the needle into the right atrium. A 4 Swiss micropuncture sheath was placed.A subcutaneous tunnel was created in the right anterior chest wall by blunt dissection.A 19 cm 15.5 Swiss Duraflow 2 catheter was brought through the tunnel. The vessel tract was serially dilated over a J-wire. A peel-away sheath was placed in the right IJ vein and the catheter was advanced through the sheath, with its distal tip terminating in the right atrium.The peel-away sheath was removed. The ports were flushed and aspirated easily following placement.The catheter was sutured to the skin with 2-0 silk to secure its placement.The small jugular incision site was closed using resorbable suture. Vital signs were monitored throughout the procedure by a nurse, and remained stable.The patient tolerated the procedure well and left the department in the same condition.The patient was given 1 gram of Ancef intravenously during the procedure. Results:Spot radiograph of the chest demonstrates the new dialysis catheter to lie in the expected position with its tip overlying the superior right atrium. Impression: Successful, uncomplicated placement of a right internal jugular tunneled dialysis catheter using sonographic and fluoroscopic guidance and conscious sedation. Signed: Albert Ojeda MD Report Verified Date/Time:04/01/2018 17:46:56 Reading Location: [facility] P048 Angio Body Reading Room Procedure Note Interface, External Ris In - 04/01/2018 5:49 PM CDT FINAL REPORT Tunneled dialysis catheter insertion. History: Renal failure. Modality: Sonography and fluoroscopy. Sedation: Versed 0.5 mg and fentanyl 25 mcg was given intravenously for conscious sedation. Vital signs were monitored throughout the procedure by a nurse, and remained stable. Physician intra-service time was 15 minutes. Computer Graphics Illustrator: Blessing. Metal Building Assembler: None. Approach: Right internal jugular vein Estimated blood loss: < 5 cc. Specimen: None. Fluoroscopy Time: 0.1 min. Dose (Ka,r): 0.1 mGy. Technique: Informed written consent was obtained. Discussion of risks, benefits, and alternatives were made with the patient. The patient expressed understanding and agreed to proceed. All elements maximal sterile barrier technique was utilized for this procedure, including utilization of sterile scrub solution for skin prep, a large sterile sheet to cover the areas of the patient that were not prepped, and hand hygiene, mask, head covering, and sterile gown for performing radiologist and scrub technologist. The skin was anesthetized with 2% lidocaine.Ultrasound evaluation showed a patent and compressible right internal jugular vein, which was punctured under direct real-time ultrasound guidance with a micropuncture needle. An ultrasound image was saved to PACS. A 0.018 inch wire was placed through the needle into the right atrium. A 4 Swiss micropuncture sheath was placed. A subcutaneous tunnel was created in the right anterior chest wall by blunt dissection. A 19 cm 15.5 Swiss Duraflow 2 catheter was brought through the tunnel. The vessel tract was serially dilated over a J-wire. A peel-away sheath was placed in the right IJ vein and the catheter was advanced through the sheath, with its distal tip terminating in the right atrium. The peel-away sheath was removed. The ports were flushed and aspirated easily following placement. The catheter was sutured to the skin with 2-0 silk to secure its placement. The small jugular incision site was closed using resorbable suture. Vital signs were monitored throughout the procedure by a nurse, and remained stable. The patient tolerated the procedure well and left the department in the same condition. The patient was given 1 gram of Ancef intravenously during the procedure. Results: Spot radiograph of the chest demonstrates the new dialysis catheter to lie in the expected position with its tip overlying the superior right atrium. Impression: Successful, uncomplicated placement of a right internal jugular tunneled dialysis catheter using sonographic and fluoroscopic guidance and conscious sedation. Signed: Albert Ojeda MD Report Verified Date/Time: 04/01/2018 17:46:56 Reading Location: [place] [address] Angio Body Reading Room /aPTT (03/30/2018 4:37 AM)Only the most recent of4 resultswithin the time period is included. Component Value Ref Range Protime 16.7 (H) 11.7 - 14.7 seconds INR 1.4 <=5.9 PTT 39.8 (H) 22.5 - 36.0 seconds Specimen Performing [place] [address] Narrative RECOMMENDED COUMADIN/WARFARIN INR THERAPY RANGES STANDARD [...] COMPATIBLE Unit ABO A Pos UNIT NUMBER [id number] Status TRANSFUSED Blood Bank Product RED BLOOD CELLS PRODUCT CODE [id number] Specimen Performing Laboratory Other SAFETRACE TX XR [...] MD Report Verified Date/Time:03/28/2018 22:19:58 Reading Location: [address] Reading Room Procedure Note Interface, External [...] Report Verified Date/Time: 03/28/2018 22:19:58 Reading Location: [address] Reading Room Lactic acid, venous, whole blood (03/28/2018 2:45 AM)Only the most recent of5 resultswithin the time period is included. Component Value Ref Range Lactate, Venous 1.1 0.5 - 2.2 mmol/L Specimen Performing [place] [address] Narrative Effective 11/28/2015: Units/Reference Range Change New: [...] FOR DIALYSIS PATIENTS. Specimen Performing Laboratory Blood [address] [address] Blood culture (03/28/2018 2:44 AM)Only the most recent of6 resultswithin the time period is included. Component Value Ref Range Result No growth in 5 days Specimen Performing Laboratory Blood - Central Venous Line [address] [address] Transfuse Leuko-Red RBC (03/27/2018 2:48 PM)Only the most recent of7 resultswithin the time period is included.Type and screen, automated (2017 12:03 PM)Only the most recent of3 resultswithin the time period is included. Component Value Ref Range ABO/RH AUTOMATED (BEAKER) A POSITIVE Ab Scrn NEGATIVE Specimen Performing Laboratory Blood [address] [address] XR shoulder complete 2 views min left [...] MD Report Verified Date/Time:03/26/2018 17:48:06 Reading Location: [facility] Radiology Reading Room Procedure Note Interface, External [...] IMPRESSION: No fracture or dislocation. Signed: Steve Torrse MD Report Verified Date/Time: 03/26/2018 17:48:06 Reading Location: [facility] Radiology Reading Room 12 lead (03/26/2018 8:47 AM)Only the most recent of4 resultswithin the time period is included. Specimen Performing Laboratory GE MUSE Narrative Ventricular Rate 89 BPM Atrial Rate 89 BPM P-R Interval 142 ms QRS Duration 64 ms Q-T Interval 384 ms QTC Calculation(Bazett) 467 ms P [place] 44 degrees R [place] 17 degrees T [place] 148 degrees Normal sinus rhythm ST & T wave abnormality, consider anterior ischemia Prolonged QT Abnormal ECG When compared with ECG of 19-MAR-2018 14:10, Nonspecific T wave abnormality, worse in Inferior leads T wave inversion now evident in Anterior leads Confirmed by MD MCCARTY JOSEPH P ([id number]) on 03/27/2018 7:24:27 AM Procedure Note Interface, External Ris In - 03/27/2018 7:24 AM CDT Ventricular Rate 89 BPM Atrial Rate 89 BPM P-R Interval 142 ms QRS Duration 64 ms Q-T Interval 384 ms QTC Calculation(Bazett) 467 ms P [place] 44 degrees R [place] 17 degrees T [place] 148 degrees Normal sinus rhythm ST & T wave abnormality, consider anterior ischemia Prolonged QT Abnormal ECG When compared with ECG of 19-MAR-2018 14:10, Nonspecific T wave abnormality, worse in Inferior leads T wave inversion now evident in Anterior leads Confirmed by MD MCCARTY JOSEPH P ([id number]) on 03/27/2018 7:24:[address] abdomen/pelvis without iv contrast (03/26/2018 12:39 AM) Specimen Performing Laboratory [facility] Narrative FINAL REPORT CT, ABDOMEN \\T\\ [...] MD Report Verified Date/Time:03/26/2018 02:57:14 Reading Location: [address] Transitional Reading Room Procedure Note Interface, [...] Report Verified Date/Time: 03/26/2018 02:57:14 Reading Location: [facility] C013T Transitional Reading Room Peripheral Blood Smear - Hold only (03/25/2018 2:03 PM)Only the most recent of3 resultswithin the time period is included. Component Value Ref Range Peripheral Smear Save saved Specimen Performing Laboratory Blood [address] [address] Lactate dehydrogenase (LDH) (03/25/2018 2:03 PM)Only the most recent of4 resultswithin the time period is included. Component Value Ref Range LDH 722 (H) 125 - 220 U/L Specimen Performing Laboratory Blood [address] [address] US renal biopsy (03/24/2018 1:00 PM) Specimen Performing Laboratory [facility] Narrative FINAL REPORT HISTORY: Acute kidney injury of unknown etiology Sedation: Moderate sedation was administered. 0.5 mg of Versed and 25 mcg of fentanyl IV was used for moderate sedation monitored under my direction. Total intra-service time of sedation [id number]. The patient's vital signs were monitored throughout [...] ultrasound guided core random biopsy of the sioux left kidney. Signed: Eduin Thompson MD Report Verified Date/Time:03/24/2018 12:59:37 Reading Location: [facility] [id number] Ultrasound Reading Room Procedure Note Interface, External [...] ultrasound guided core random biopsy of the sioux left kidney. 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 One study (see reference) have reported arteriolar deposition of C4d to suggest a deficit in complement regulation. Clinical correlation is recommended. Reference: Earline ROMAN, et al. Complement Factor C4d Is a Common Denominator in Thrombotic Microangiopathy. J Am Soc Nephrol. 2015 Sep;26(9):2236-59. The results were communicated to Dr. Vital on 03/25/2018 at 10.15 am. CPT Code(s) 79214, 83008 X3, 76281, 35938 x8, 24231 CLINICAL HISTORY Left renal failure evaluation SPECIMEN SOURCE [place] left kidney biopsy GROSS DESCRIPTION The specimen [...] tubular basement membranes. Fibrinogen: Positive in thrombi [place]:Focal segmental to global, granular, peripheral capillary loop [...] processes. Specimen Performing Laboratory Tissue - Kidney, Left [address] [address] Phosphorus (03/22/2018 11:26 PM)Only the most recent of2 resultswithin the time period is included. Component Value Ref Range Phosphorus 6.1 (H) 2.3 - 4.7 mg/dL Specimen Performing Laboratory Blood - Central Venous Line [address] [address] Hepatic function panel (03/22/2018 4:51 PM)Only the [...] Performing Laboratory Blood - Central Venous Line [address] [address] Prothrombin time/INR (03/22/2018 6:28 AM)Only the most recent of3 resultswithin the time period is included. Component Value Ref Range Protime 16.2 (H) 11.7 - 14.7 seconds INR 1.3 <=5.9 Specimen Performing Laboratory Blood - Arm, [address] [address] Narrative RECOMMENDED COUMADIN/WARFARIN INR THERAPY RANGES STANDARD [...] % Specimen Performing Laboratory Blood - Arm, [address] [address] Haptoglobin (03/22/2018 6:28 AM)Only the most recent of3 resultswithin the time period is included. Component Value Ref Range Haptoglobin <8 (L) 14 - 258 mg/dL Specimen Performing Laboratory Blood - Arm, Left [address] [address] CBC (Hemogram only) (03/21/2018 3:21 AM)Only the [...] Specimen Performing Laboratory Blood - Arm, Right [address] [address] Hepatitis B Panel (03/20/2018 12:12 PM) Component Value Ref Range Hep B Core Total Ab Nonreactive Nonreactive Hep B S Ab 133.0 (H) <8.0 mIU/mL Comment: Testing performed at [email or web address]. See attach result for further interpretation. hepatitis B Surface Ag Nonreactive Nonreactive Specimen Performing Laboratory Blood - Central Venous Line [address] [address] Hepatitis C antibody (03/20/2018 12:12 PM) Component Value Ref Range Hepatitis C Ab Nonreactive Nonreactive Specimen Performing Laboratory Blood - Central Venous Line [address] [address] TSH/Free T4 If Indicated (03/20/2018 5:39 AM) Component Value Ref Range TSH 7.12 (H) 0.35 - 4.94 uIU/mL Specimen Performing Laboratory Blood [address] [address] T4, free (03/20/2018 5:39 AM) Component Value Ref Range Free T4 0.67 (L) 0.70 - 1.48 ng/dL Specimen Performing Laboratory Blood [address] [address] Prepare plasma (03/19/2018 11:54 PM)Only the most recent of2 resultswithin the time period is included. Component Value Ref Range Unit ABO A UNIT NUMBER [id number] Status TRANSFUSED Blood Bank Product FFP PRODUCT CODE [id number] Unit ABO A UNIT NUMBER [id number] Status TRANSFUSED Blood Bank Product FFP PRODUCT CODE [id number] Specimen Performing Laboratory Blood SAFETRACE TX PTH, intact (03/19/2018 5:29 AM) Component Value Ref Range PTH 690.0 (H) 8.5 - 72.5 pg/mL Specimen Performing Laboratory Blood - Central Venous Line [address] [address] Vancomycin level, random (03/19/2018 5:29 AM)Only the most recent of2 resultswithin the time period is included. Component Value Ref Range Vancomycin Rm 14.4 ug/mL Specimen Performing Laboratory Blood - Central Venous Line [address] [address] Narrative Reference Range: No Normals Direct AHG (BASIL)/Direct Rose (03/18/2018 3:23 PM) Component Value Ref Range Direct AHG-IGG NEGATIVE Direct AHG-C3B, C3D NEGATVIE Specimen Performing Laboratory Blood [address] [address] RHYTHM STRIP - SCAN (03/18/2018 2:53 PM)Only the most recent of2 resultswithin the time period is included.EKG-SCANNED (03/18/2018 2:53 PM)Calcium, Ionized ( 03/18/2018 9:15 AM)Only the most recent of3 resultswithin the time period is included. Component Value Ref Range Calcium, Ion 0.94 (L) 1.12 - 1.27 mmol/L pH, Blood 7.48 Specimen Performing Laboratory Blood - Central Venous Line [address] [address] aPTT (03/18/2018 8:37 AM)Only the most recent of2 resultswithin the time period is included. Component Value Ref Range PTT 38.9 (H) 22.5 - 36.0 seconds Specimen Performing Laboratory Blood - Central Venous Line [address] [address] D-dimer (03/18/2018 8:37 AM)Only the most recent of2 resultswithin the time period is included. Component Value Ref Range D-Dimer, Quant 3.18 (H) <0.50 MG/L FEU Specimen Performing Laboratory Blood - Central Venous Line [address] [address] Narrative Intended Use: The D-Dimer Assay can [...] - 295 mOsm/kg Specimen Performing Laboratory Blood [address] [address] Transfusion Reaction Investigation (03/18/2018 4:06 AM) Component Value Ref Range TRANSFUSION RX INVESTIGATION(ADDY) SEE COMMENTComment: Anaphylactoid reaction vs hypocalcemic response on TPE. Patient promptly recovered post fluid bolus. No special precautions required for future transfusions,Electronic Signature: Yuval Carmichael M.D. Specimen Performing [place] [address] Transfuse plasma (03/18/2018 3:56 AM)Urea Nitrogen, random urine (03/18/2018 2 :20 AM) Component Value Ref Range Urea Nitrogen, Ur 298 mg/dL Specimen Performing Laboratory Urine - Urine, [place] [address] Narrative Reference Range: No Normals Sodium, random urine (03/18/2018 2:20 AM) Component Value Ref Range Sodium Urine 57 meq/L Specimen Performing Laboratory Urine - Urine, [place] [address] Narrative Reference Range: No Normals Potassium, random urine (03/18/2018 2:20 AM) Component Value Ref Range Potassium Urine 41.5 meq/L Specimen Performing Laboratory Urine - Urine, [place] [address] Narrative Reference Range: No Normals Osmolality, urine (03/18/2018 2:20 AM) Component Value Ref Range Osmolality, Ur 316 40 - 1400 mOsm/kg Specimen Performing Laboratory Urine - Urine, [place] [address] Creatinine, random urine (03/18/2018 2:20 AM)Only the most recent of2 resultswithin the time period is included. Component Value Ref Range Creatinine, Ur 36.3 mg/dL Specimen Performing Laboratory Urine - Urine, [place] [address] Narrative Reference Range: No Normals Procalcitonin (03/18/2018 1:27 AM) Component Value Ref Range Procalcitonin 8.65 (H) <0.05 ng/mL Specimen [place] [address] Narrative SEPSIS RISK (ng/mL) Low:0.05-0.50 Intermediate: 0.51-2.00 High: >=2.01 Troponin I (03/18/2018 1:27 AM)Only the most recent of4 resultswithin the time period is included. Component Value Ref Range Troponin I 0.77 (HH) 0.00 - 0.03 ng/mL Specimen Performing Laboratory Blood [address] [address] Narrative Troponin I (TnI) levels must be [...] Rh Factor POS Specimen Performing Laboratory Blood [address] [address] Fibrinogen (03/18/2018 12:59 AM) Component Value Ref Range Fibrinogen 466 (H) 225 - 434 mg/dl Specimen Performing Laboratory Blood [address] [address] Biopsy Bone Marrow (03/17/2018 3:01 PM) Component Value Ref Range Anatomic Case# [id number] Ordering Physician jordan Sultana m.d. Performing Physician Jordan Sultana m.d. Clot Rec'd? Yes Biopsy Rec'd? Yes Rec'd for Culture? No Rec'd for Flow? Yes Rec'd for Cytogenetics? Yes Rec'd for Molecular Genetics? No Specimen Performing Laboratory Bone Marrow - Iliac Crest, Right [facility] [address] [place] [address] Flow Cytometry Requisition (03/17/2018 3:00 PM) Component Value Ref Range Flow Cytometry See Separate Report Case # [id number] Specimen Performing Laboratory Bone Marrow [address] [address] Flow Cytometry (03/17/2018 3:00 PM) Component Value Ref Range Case Report Flow Cytometry Report Case: [id number] Authorizing Provider:Jordan Sultana MD Collected: 03/17/2018 1500 Ordering Location: [address] Med/SurgReceived: 03/17/2018 1714 Pathologist: Doug Lee [...] the bone marrow biopsy report([id number]). CPT Code(s) 76945 CLINICAL HISTORY 53 wf with h/o right breast ca s/p surgery and chemo xrt in 2013 found to have recurrence with extensive metastases, started on carboplatin and gemcitabine in October 2017, transferred from [facility] for management of MAHA with REJI. SPECIMEN SOURCE BONE MARROW ASPIRATE CELLULAR BIOMARKER ANALYSIS CD8, surface-[place], CD56, surface-Lambda, CD5, CD19, CD10, CD3, CD20, CD4, CD45, CD14, CD13, CD33, CD117, CD34, cKappa, cLambda , CD38, CD138 IMMUNOPHENOTYPIC FINDINGS Specimen Viability: 92.4%Number of Events Acquired: [id number] The following populations are identified: Blasts: the [...] developed and their performance characteristics determined by [facility] They have not been cleared or approved by the U.S. Food and Drug Administration. The FDA has determined that such clearance or approval is not necessary. It should not be regarded as investigational or for research. This laboratory is certified under the Clinical Laboratory Improvement Amendments of 1988 ("CLIA") as qualified to perform high-complexity clinical testing. Specimen Performing Laboratory Other [facility] [address] [address] Bone Marrow Exam (03/17/2018 2:57 PM) Component Value Ref Range Case Report Bone Marrow Pathology Report Case: [id number] Authorizing Provider:Jordan Sultana MD Collected: 03/17/20187 Ordering Location: [address] Med/SurgReceived: 03/17/20181456 Pathologist: Doug Lee MD Specimens: A) - Iliac, Right B) - Iliac, Right C) - Iliac, Right ADDENDUM This addendum is created to report the [employer] results for the Oncologic chromosomal study: There [...] ANEMIA -THROMBOCYTOPENIA Signing Pathologist Direct Phone Line: [phone] COMMENT Bone marrow biopsy evaluation was performed [...] as an addendum when available. CPT Code(s) 58236; 03791; 00143 x 2; 64371; 07721 65317 x 1; 75912 x11 CLINICAL HISTORY Primary malignant neoplasm of [...] some erythroid precursors. CD138:Highlights few plasma cells [place]:Highlights polyclonal plasma cells Lambda:Highlights polyclonal plasma cells [...] developed and its performance characteristics determined by [facility], Pathology Laboratory. It has not been cleared [...] 5.2, CD3, CD20, CD34, CD61, CD117, CD138, [place], Lambda, E-Cadherin. Specimen Performing Laboratory Bone Marrow - Iliac, Right [facility] [address] [place] [address] CT Biopsy/Aspiration/Injection (03/17/2018 2:41 PM) Specimen Performing Laboratory GE RIS Narrative FINAL REPORT PROCEDURE: CT-guided bone marrow biopsy DOSE REDUCTION: The examination was performed according to departmental dose-optimization program which includes automated exposure control, adjustment of the mA and/or kV according to patient size and/or use of iterative reconstruction technique. Clinical History: Pancytopenia Rooming House Inspector: Marce Conscious sedation: Versed 1 mg, fentanyl [...] was immediately removed and provided to the technologist development. Subsequently a core biopsy was obtained using the outer sheath. The needle and sheath were removed. Postprocedure CT evaluation of the area revealed no significant hematoma. Patient tolerated the procedure well and remained hemodynamically stable throughout. IMPRESSION: Successful and uncomplicated CT-guided bone marrow aspiration and core biopsy. Signed: Jordan Sultana MD Report Verified Date/Time:03/17/2018 17:06:03 Reading Location: [facility] Radiology Reading Room Procedure Note Interface, External Ris In - 03/17/2018 5:08 PM CDT FINAL REPORT PROCEDURE: CT-guided bone marrow biopsy DOSE REDUCTION: The examination was performed according to departmental dose-optimization program which includes automated exposure control, adjustment of the mA and/or kV according to patient size and/or use of iterative reconstruction technique. Clinical History: Pancytopenia Rooming House Inspector: Marce Conscious sedation: Versed 1 mg, fentanyl [...] was immediately removed and provided to the technologist development. Subsequently a core biopsy was obtained using the outer sheath. The needle and sheath were removed. Postprocedure CT evaluation of the area revealed no significant hematoma. Patient tolerated the procedure well and remained hemodynamically stable throughout. IMPRESSION: Successful and uncomplicated CT-guided bone marrow aspiration and core biopsy. Signed: Jordan Sultana MD Report Verified Date/Time: 03/17/2018 17:06:03 Reading Location: [facility] Radiology Reading Room CARDIOGRAM REPORT - SCAN (03/17/2018 12:50 PM)XR chest 2 views (03/17/2018 10:42 AM)Only the most recent of3 resultswithin the time period is included. Specimen Performing Laboratory GE RIS Narrative FINAL REPORT Comparison: 15/08/2017 TECHNIQUE: 2 views of the chest FINDINGS: There is mild vascular congestion. There are small pleural effusions. Cardiac silhouette is enlarged. Left internal jugular chest port noted with tip at the cavoatrial junction. Surgical clips project over the right chest wall. Signed: Jordan Sultana MD Report Verified Date/Time:03/17/2018 13:39:16 Reading Location: [facility] Radiology Reading Room Procedure Note Interface, External [...] Report Verified Date/Time: 03/17/2018 13:39:16 Reading Location: [facility] Radiology Reading Room 2D Echo W/Doppler(CW/PW/Color) (03/17/2018 8:04 AM) Component Value Ref Range Ejection Fraction Specimen Performing Laboratory [facility] ECHO HEARTLAB MKCKESSON CPACS Narrative Transthoracic Echocardiography Report (TTE) Demographics Patient Name Esthela GOLD of Study 03/17/2018 ADAN [id number] GenderFemale Visit Number [id number] RaceUnknown [id number] Number [id number] Number Date of Birth1965 Referring Physician Age53 year(s) 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 Physician Procedure Type [...] Scan Result Specimen Performing Laboratory Bone Marrow [facility] [address] [facility] [place] [address] PARVOVIRUS B19 IGM (03/17/2018 6:02 AM) Component [...] PCR. Specimen Performing Laboratory Blood [facility] [address] [address] Narrative Performing Lab *[facility] [address] [place] [phone] Susannah Cherry MD PARVOVIRUS B19 IGG (03/17/2018 6:02 AM) Component Value Ref Range Parvovirus B19 Igg 0.6 Comment: REFERENCE RANGE: <0.9 INTERPRETIVE CRITERIA: <0.9 Negative 0.9 - 1.1 Equivocal >1.1 Positive IgG persists for years and provides life-long immunity. To diagnose current infection, consider Parvovirus B19 DNA, PCR. Specimen Performing Laboratory Blood [facility] [address] [address] Narrative Performing Lab *[facility] [address] [place] [phone] Susannah Cherry MD Parvovirus B19 antibodies (IgG, IgM) (03/17/2018 6:02 AM) Component Value Ref Range Parvovirus Ab Profile. Refer to individual Parvovirus B19 IgG and Igm results Specimen Performing Laboratory Blood [facility] [address] [place] [address] Blood gas, arterial (03/17/2018 4:53 AM) Component [...] Performing Laboratory Blood, Arterial - Arm, Right [facility] [address] [place] [address] Protein, random urine (03/16/2018 10:45 PM) Component Value Ref Range Protein, Urine 432 (H) 0 - 14 mg/dL Specimen Performing Laboratory Urine [facility] [address] [place] [address] Urine Protein Electrophoresis, random (03/16/2018 10:45 PM) Component Value Ref Range Protein, Urine 412 (H) 0 - 14 mg/dL Albumin %, Urine 56.3 % Globulin %, Urine 43.7 % UPEP,ID No monoclonal bands detected. Pathologist: Barbie Mccollum MD (electronic signature) Specimen Performing Laboratory Urine [address] [address] Urine Immunofixation, random (03/16/2018 10:45 PM) Component Value Ref Range Protein, Urine 412 (H) 0 - 14 mg/dL Albumin %, Urine 56.3 % Globulin %, Urine 43.7 % URINE JUDSON ID No monoclonal proteins or monoclonal free light chains detected. Pathologist: Barbie Mccollum MD (electronic signature) Specimen Performing Laboratory Urine [address] [address] Urinalysis w/Microscopic (03/16/2018 10:45 PM)Only the most recent of4 resultswithin the time period is included. Component Value Ref Range Color, UA Yellow Clarity, UA Clear Specific [place], UA 1.020 1.001 - 1.035 pH, UA [...] /LPF Specimen Source Specimen Performing Laboratory Urine [facility] [address] [place] [address] Peripheral Blood Smear - Path Review (03/16/2018 9:47 PM) Component Value Ref Range Pathologist Review Normochromic normocytic anemia with rare schistocytes seen (1-2/ HPF). WBCs normal in number and morphology. Thrombocytopenia with a few large forms. Pathologist: Michelle Yu M.D. (electronic signature) Specimen Performing Laboratory Blood [facility] [address] [place] [address] SARAH Titer & Pattern (03/16/2018 9:47 PM) Component Value Ref Range SARAH Titer >=1:2560 SARAH Pattern Speckled Specimen Performing Laboratory Blood [address] [address] Glomerular basement membrane antibody (03/16/2018 9:47 PM) Component Value Ref Range GBM Ab <1.0 <1.0 AI Comment: Interpretation: < 1.0 AI No Antibody Detected > OR=1.0 AI Antibody Detected Specimen Performing Laboratory Blood [facility] [address] [place] [address] Narrative Performing Lab [facility] [id number] [place] [address] Eusebia Jolly MD, PhD, LUIS ALBERTO Anti-Neutrophil Cytoplasmic Ab (ANCA) (03/16/2018 9:47 PM) Component Value Ref Range Proteinase-3 Ab <1.0 <1.0 AI Comment: <1.0 AI No Antibody Detected > or=1.0 AI Antibody Detected Autoantibodies to proteinase-3 (GA-3) are accepted as characteristic for granulomatosis with polyangiitis (GPA, Amber's), and are detectable in 95% of the histologically proven cases. The cytoplasmic IFA pattern, (c-ANCA), is based largely on autoantibody to GA-3 which serves as the primary antigen. These [...] Specimen Performing Laboratory Blood [facility] [address] [address] Narrative Performing Lab [facility] [address] [address] Eusebia Jolly MD, PhD, LUIS ALBERTO Immunofixation electrophoresis (JUDSON) (03/16/2018 9:47 PM) Component Value Ref Range IgG 2008 (H) 540 - 1822 mg/dL IgA 37 (L) 63 - 484 mg/dL IgM 673 (H) 22 - 293 mg/dL Serum JUDSON Identification No monoclonal proteins detected. Polyclonal elevation of gamma globulins. Pathologist: Barbie Mccollum MD (electronic signature) Specimen Performing Laboratory Blood [facility] [address] [place] [address] Bilirubin, total and direct (03/16/2018 9:47 PM) Component Value Ref Range Total Bilirubin 2.1 (H) 0.1 - 1.2 mg/dL Bilirubin, Direct 1.1 (H) 0.0 - 0.4 mg/dL Specimen Performing Laboratory Blood [facility] [address] [place] [address] Complement Component C3 (03/16/2018 9:47 PM) Component Value Ref Range C3 Complement 94 82 - 193 mg/dL Specimen Performing Laboratory Blood [address] [address] Complement Component C4 (03/16/2018 9:47 PM) Component Value Ref Range C4 Complement 22 15 - 57 mg/dL Specimen Performing Laboratory Blood [address] [address] Anti-Nuclear Antibody (SARAH) (03/16/2018 9:47 PM) Component Value Ref Range SARAH Positive (A) Negative Specimen Performing Laboratory Blood [address] [address] Narrative Test performed by IFA method. Protein [...] - 8.3 gm/dL Specimen Performing Laboratory Blood [address] [address] Ketone, blood (03/16/2018 9:47 PM) Component Value Ref Range Ketones, Blood 0.3 <0.4 mmol/L Specimen Performing Laboratory Blood [facility] [address] [place] [address] ED ECG Interpretation (03/16/2018 11:25 AM) Narrative Luis Fernando Kumar DO 03/16/2018 11:25 AM ECG/EKG Interpretation Date/Time: 03/16/2018 10:21 AM Performed by: LUIS FERNANDO KUMAR Authorized by: LUIS FERNANDO KUMAR The ECG was interpreted by ED physician. This ECG was not compared with previous ECG(s).The ECG is interpreted as sinus tachycardia. Rate is tachycardic. Heart rate is [address] segments normal. [place] is normal. Clinical Impression: non-specific ECGECG reviewed and does not meet STEMI criteria. Patient tolerance: Patient tolerated the procedure well with no immediate complications Critical Care (03/16/2018 11:25 AM) Narrative Luis Fernando Kumar, 03/16/2018 11:25 AM Critical Care Performed by: [...] Rh Factor POS Specimen [place] [address] Manual Differential (03/16/2018 10:02 AM)Only the most recent of4 resultswithin the time period is included. Component Value Ref Range Total Counted WBC Morphology Normal Platelet Morphology Normal Schistocytes 1+ few Anisocytosis 1+ few Macrocytes 1+ few Microcytes 1+ few Poikilocytes 1+ few Polychromasia 1+ few Specimen Performing Laboratory Blood [facility] [address] [place] [address] Creatine Kinase (CK), Total and MB (not available at [facility]) (2017 10:02 AM) Component Value Ref Range Total CK 125 25 - 235 U/L CK-MB 0.9 0.0 - 4.9 ng/mL MB Relative Index 0.7 % Specimen Performing Laboratory Blood [facility] [address] [place] [address] Narrative CK-MB Reference Range: <5 Normal 5-10 Borderline >10Abnormal Respiratory Panel [facility] (12/11/2017 10:13 AM) Component Value Ref [...] Specimen Performing Laboratory Nasopharyngeal - Nasopharyngeal Swab [address] [address] Vancomycin level, trough (12/11/2017 4:58 AM)Only the most recent of2 resultswithin the time period is included. Component Value Ref Range Vancomycin Tr 11.7 10.0 - 20.0 ug/mL Specimen Performing Laboratory Blood [facility] [address] [place] [address] Urine culture (12/08/2017 7:03 PM)Only the most recent of2 resultswithin the time period is included. Component Value Ref Range Result No growth Specimen Performing Laboratory Urine - Urine, Clean Catch [facility] [address] [place] [address] brain without IV contrast (10/20/2017 4:58 PM) Specimen Performing Laboratory [facility] Narrative FINAL REPORT CT Head without [...] MD Report Verified Date/Time:10/20/2017 17:12:46 Reading Location: [facility] Radiology Reading Room Procedure Note Interface, External [...] Report Verified Date/Time: 10/20/2017 17:12:46 Reading Location: [facility] Radiology Reading Room abdomen pelvis with IV contrast (10/20/2017 9:00 AM) Specimen Performing Laboratory [facility] Narrative FINAL REPORT INDICATION: 52-year-old female with [...] MD Report Verified Date/Time:10/20/2017 09:17:32 Reading Location: [facility] C013X Ortho Consult Reading Room Procedure Note [...] Report Verified Date/Time: 10/20/2017 09:17:32 Reading Location: [facility] C013X Ortho Consult Reading Room Influenza antigen A & B (Rapid) (10/20/2017 7:26 AM) Component Value Ref Range Rapid Influenza A Antigen Negative Negative, Inconclusive Rapid influenza B Antigen Negative Negative, Inconclusive Specimen Performing Laboratory Nasopharyngeal - Nasopharyngeal Swab [facility] [address] [place] [address] Lipase (10/20/2017 7:23 AM) Component Value Ref Range Lipase 42 6 - 51 U/L Specimen Performing Laboratory Blood [facility] [address] [place] [address] after 04/01/2017
--- OUTSIDE RECORDS SUMMARY | 2018-04-02 07:54 | XMS REPORT ---
:1965 [facility] [address] [place] [address] Dr. [address] [place] [id number] Care Team Providers Name Role Phone HOLLY LENORE Unavailable Unavailable LUIS FERNANDO KUMAR Unavailable Unavailable FER SCHULZ Unavailable Unavailable ABBI, JEF LUCAS Unavailable Unavailable Problems This patient has no known problems. Allergies, Adverse Reactions, Alerts This patient has no known allergies or adverse reactions. Medications This patient has no known medications. Results Test Description Test Time Test Comments Text Results Atomic Results Result Comments BLOOD CULTURE 2018-04-02 06:00:00 Test Item Value Reference Range Comments CULTURE (BEAKER) (test djzq=6677) No growth in 5 days ANG, CV ACCESS, [id number] 17:46:00Reason for exam:->TDC placement for outpatient HDFINAL REPORT Tunneled dialysis catheter insertion. History: Renal failure. Modality: Sonography and fluoroscopy. Sedation: Versed 0.5 mg and fentanyl 25 mcg was given intravenously for conscious sedation. Vital signs were monitored throughout the procedure by a nurse, and remained stable. Physician intra-service time was 15 minutes. Power Press Supervisor: Blessing. Global Account Executive: None. Approach: Right internal jugular vein Estimatedblood loss: < 5 cc. Specimen: None. Fluoroscopy Time: 0.1 min. Dose (Ka,r): 0.1 mGy. Technique : Informed written consent was obtained. Discussion of [...] scrub technologist. The skin was anesthetized with 2 % lidocaine.Ultrasound evaluation showed a patent and compressible right internal jugular vein, which was punctured under direct real-time ultrasound guidance with a micropuncture needle. An ultrasound image was saved to PACS. A 0.018 inch wire was placed through the needle into the right atrium. A 4 Qatari micropuncture sheath was placed. A subcutaneous tunnel was created in the right anterior chest wall by blunt dissection. A 19 cm 15.5 Qatari Duraflow 2catheter was brought through the tunnel. The vessel [...] nurse, and remained stable. The patient tolerated theprocedure well and left the department in the same condition. The patient was given 1 gram of Ancefintravenously during the procedure. Results: Spot radiograph of the chest demonstrates the new dialysis catheter to lie in the expected position with its tip overlying the superior right atrium. Impression: Successful, uncomplicated placement of a right internal jugular tunneled dialysis catheter usingsonographic and fluoroscopic guidance and conscious sedation. 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 J Am Soc Nephrol. 2015 Sep;26(9):2239 -47.The results were communicated to Dr. Vital on 03/25/2018 at 10.15 am. 21035, [address]23 X3, 33902, 77794 x8, [id number] renal failure evaluationNative left kidney biopsyThe specimen is received in three parts all labeled with the patient's information. Received in formalin are three bernal-red core biopsies ranging in length from 0.3 to 1.1 cm, submitted entirely A1. Received fresh is a 1 cm bernal- red core, submitted for frozen sectionfor immunofluorescence staining and received in electron microscopy consists of a 0.2 cm core submitted for electron microscopy. CG/pl LIGHT MICROSCOPYSections show three cores of renal parenchymal tissue composed of cortical tissue (~80%) and medullary tissue (~20% ). Glomeruli: Approximately 56 glomeruli are examined, of [...] No endothelialitis, arteritis or transmural vasculitis is seen.IMMUNOFLUORESCENCE: Direct Immunofluorescence:Histology: H&E-stained sections show 10 non- obsolescent glomeruli. Immunofluorescence findings: IgA: Negative in glomeruli , tubular casts are positiveIgG: Negative in glomeruli. [...] and global, granular, peripheral capillary loop and mesangialstaining 2+ to 3+, diffuse weak positive staining of the tubular epithelial cell nuclei. C4d. Diffuse positive staining in peripheral glomerular capillary loops and arterioles along with small branchesof interlobular arteries. The peritubular capillaries are negative.Thick [...] epithelial cells with extensive effacement of foot processes.BASIC METABOLIC [id number] 06:14:00 Test Item Value Reference Range Comments SODIUM (BEAKER) (test 133 meq/L 136-145 kkgu=714) POTASSIUM (BEAKER) (test 4.6 meq/L 3.5-5.1 kdrv=049) CHLORIDE (BEAKER) (test 99 meq/L 98-107 ekmu=700) CO2 (BEAKER) (test 24 meq/L 22-29 nwbs=294) BLOOD UREA NITROGEN 45 mg/dL 7-21 (BEAKER) (test lmii=651) CREATININE (BEAKER) (test 4.49 mg/dL 0.57-1.25 psyk=613) GLUCOSE RANDOM (BEAKER) 95 mg/dL 70-105 (test vwgm=419) CALCIUM (BEAKER) (test 8.1 mg/dL 8.4-10.2 gyfv=353) EGFR (BEAKER) (test 10 mL/min/1.73 sq m ESTIMATED GFR IS NOT irtd=2525) ACCURATE CREATININE CLEARANCE IN PREDICTING GLOMERULAR FILTRATION RATE. ESTIMATED GFR IS NOT APPLICABLE FOR DIALYSIS PATIENTS. [id number] 06:05:00 Test Item Value Reference Range Comments MAGNESIUM (BEAKER) (test ujfg=088) 1.9 mg/dL 1.6-2.6 CBC W/PLT COUNT & AUTO [id number] 05:20:00 Test Item Value Reference Range Comments WHITE BLOOD CELL COUNT (BEAKER) (test fwde=082) 4.1 K/ L 3.5-10.5 RED BLOOD CELL COUNT (BEAKER) (test rzhg=615) 2.55 M/ L 3.93-5.22 HEMOGLOBIN (BEAKER) (test fycg=349) 8.0 GM/DL 11.2-15.7 HEMATOCRIT (BEAKER) (test djvk=770) 26.0 % 34.1-44.9 MEAN CORPUSCULAR VOLUME (BEAKER) (test byvg=423) 102.0 fL 79.4-94.8 MEAN CORPUSCULAR HEMOGLOBIN (BEAKER) (test 31.4 pg 25.6-32.2 qbgt=051) MEAN CORPUSCULAR HEMOGLOBIN CONC (BEAKER) (test 30.8 GM/DL 32.2-35.5 hzkh=312) RED CELL DISTRIBUTION WIDTH (BEAKER) (test 18.9 % 11.7-14.4 qxps=254) PLATELET COUNT (BEAKER) (test pgdd=992) 54 K/CU MM 150-450 MEAN PLATELET VOLUME (BEAKER) (test zoqf=252) 12.9 fL 9.4-12.3 NUCLEATED RED BLOOD CELLS (BEAKER) (test 0 /100 WBC 0-0 wrzh=324) NEUTROPHILS RELATIVE PERCENT (BEAKER) (test 84 % xmit=580) LYMPHOCYTES RELATIVE PERCENT (BEAKER) (test 8 % ghdv=938) MONOCYTES RELATIVE PERCENT (BEAKER) (test 7 % rwug=343) EOSINOPHILS RELATIVE PERCENT (BEAKER) (test 1 % gazp=472) BASOPHILS RELATIVE PERCENT (BEAKER) (test 0 % omps=154) NEUTROPHILS ABSOLUTE COUNT (BEAKER) (test 3.45 K/ L 1.56-6.13 kdax=012) LYMPHOCYTES ABSOLUTE COUNT (BEAKER) (test 0.33 K/ L 1.18-3.74 ippy=178) MONOCYTES ABSOLUTE COUNT (BEAKER) (test bhfi=025) 0.28 K/ L 0.24-0.36 EOSINOPHILS ABSOLUTE COUNT (BEAKER) (test 0.03 K/ L 0.04-0.36 jvay=534) BASOPHILS ABSOLUTE COUNT (BEAKER) (test abve=413) 0.01 K/ L 0.01-0.08 IMMATURE GRANULOCYTES-RELATIVE PERCENT (BEAKER) 1 % 0-1 (test cxkd=6381) POCT-GLUCOSE [id number] 18:43:00 Test Item Value Reference Range Comments POC-GLUCOSE METER (BEAKER) 121 mg/dL 70-110 TESTED AT [facility] [address] [facility] (test nums=7848) [facility] [address] BASIC METABOLIC [id number] 06:46:00 Test Item Value Reference Range Comments SODIUM (BEAKER) (test 133 meq/L 136-145 ctcz=736) POTASSIUM (BEAKER) (test 4.1 meq/L 3.5-5.1 dklr=049) CHLORIDE (BEAKER) (test 98 meq/L 98-107 buts=933) CO2 (BEAKER) (test 25 meq/L 22-29 bmwz=514) BLOOD UREA NITROGEN 27 mg/dL 7-21 (BEAKER) (test fobk=644) CREATININE (BEAKER) (test 2.91 mg/dL 0.57-1.25 epvm=357) GLUCOSE RANDOM (BEAKER) 92 mg/dL 70-105 (test pdzc=969) CALCIUM (BEAKER) (test 8.3 mg/dL 8.4-10.2 lxio=039) EGFR (BEAKER) (test 17 mL/min/1.73 sq m ESTIMATED GFR IS NOT rfcj=9026) ACCURATE CREATININE CLEARANCE IN PREDICTING GLOMERULAR FILTRATION RATE. ESTIMATED GFR IS NOT APPLICABLE FOR DIALYSIS PATIENTS. [id number] 06:34:00 Test Item Value Reference Range Comments MAGNESIUM (BEAKER) (test ezov=267) 1.9 mg/dL 1.6-2.6 [id number] 06:13:00 Test Item Value Reference Range Comments PROTIME (BEAKER) (test cppv=937) 16.7 seconds 11.7-14.7 INR (BEAKER) (test wdag=688) 1.4 <=5.9 PARTIAL THROMBOPLASTIN TIME (BEAKER) (test 39.8 seconds 22.5-36.0 qyuz=815) RECOMMENDED COUMADIN/WARFARIN INR THERAPY RANGESSTANDARD DOSE: 2.0 - 3.0 Includes: PROPHYLAXIS forvenous thrombosis, systemic embolization; TREATMENT for venous thrombosis and/or pulmonary embolus.HIGH RISK: Target INR is 2.5-3.5 for patients with mechanical heart valves.CBC W/PLT COUNT & AUTO [id number] 06:11:00 Test Item Value Reference Range Comments WHITE BLOOD CELL COUNT (BEAKER) (test hwtd=910) 3.2 K/ L 3.5-10.5 RED BLOOD CELL COUNT (BEAKER) (test qecw=996) 2.51 M/ L 3.93-5.22 HEMOGLOBIN (BEAKER) (test hzer=996) 8.0 GM/DL 11.2-15.7 HEMATOCRIT (BEAKER) (test glff=837) 25.7 % 34.1-44.9 MEAN CORPUSCULAR VOLUME (BEAKER) (test ohnr=373) 102.4 fL 79.4-94.8 MEAN CORPUSCULAR HEMOGLOBIN (BEAKER) (test 31.9 pg 25.6-32.2 cwpr=397) MEAN CORPUSCULAR HEMOGLOBIN CONC (BEAKER) (test 31.1 GM/DL 32.2-35.5 fesm=196) RED CELL DISTRIBUTION WIDTH (BEAKER) (test 19.3 % 11.7-14.4 krnh=772) PLATELET COUNT (BEAKER) (test nmzj=114) 49 K/CU MM 150-450 MEAN PLATELET VOLUME (BEAKER) (test zyhm=989) 12.6 fL 9.4-12.3 NUCLEATED RED BLOOD CELLS (BEAKER) (test 0 /100 WBC 0-0 bbph=641) NEUTROPHILS RELATIVE PERCENT (BEAKER) (test 82 % pbap=119) LYMPHOCYTES RELATIVE PERCENT (BEAKER) (test 9 % gtni=046) MONOCYTES RELATIVE PERCENT (BEAKER) (test 9 % vdbu=021) EOSINOPHILS RELATIVE PERCENT (BEAKER) (test 0 % bpkh=526) BASOPHILS RELATIVE PERCENT (BEAKER) (test 0 % uwrz=168) NEUTROPHILS ABSOLUTE COUNT (BEAKER) (test 2.60 K/ L 1.56-6.13 dwwb=172) LYMPHOCYTES ABSOLUTE COUNT (BEAKER) (test 0.29 K/ L 1.18-3.74 ptqu=581) MONOCYTES ABSOLUTE COUNT (BEAKER) (test usav=132) 0.27 K/ L 0.24-0.36 EOSINOPHILS ABSOLUTE COUNT (BEAKER) (test 0.00 K/ L 0.04-0.36 zvxx=644) BASOPHILS ABSOLUTE COUNT (BEAKER) (test ecws=572) 0.01 K/ L 0.01-0.08 IMMATURE GRANULOCYTES-RELATIVE PERCENT (BEAKER) 0 % 0-1 (test zvxo=5420) BASIC METABOLIC [id number] 07:21:00 Test Item Value Reference Range Comments SODIUM (BEAKER) (test 135 meq/L 136-145 eevu=932) POTASSIUM (BEAKER) (test 4.1 meq/L 3.5-5.1 qwrk=553) CHLORIDE (BEAKER) (test 102 meq/L 98-107 iqea=584) CO2 (BEAKER) (test 24 meq/L 22-29 htir=351) BLOOD UREA NITROGEN 45 mg/dL 7-21 (BEAKER) (test jzwq=335) CREATININE (BEAKER) (test 4.55 mg/dL 0.57-1.25 etol=140) GLUCOSE RANDOM (BEAKER) 106 mg/dL 70-105 (test yvnm=839) CALCIUM (BEAKER) (test 7.8 mg/dL 8.4-10.2 gowx=577) EGFR (BEAKER) (test 10 mL/min/1.73 sq m ESTIMATED GFR IS NOT skzd=6161) ACCURATE CREATININE CLEARANCE IN PREDICTING GLOMERULAR FILTRATION RATE. ESTIMATED GFR IS NOT APPLICABLE FOR DIALYSIS PATIENTS. [id number] 07:08:00 Test Item Value Reference Range Comments MAGNESIUM (BEAKER) (test poem=299) 1.8 mg/dL 1.6-2.6 CBC W/PLT COUNT & AUTO [id number] 06:53:00 Test Item Value Reference Range Comments WHITE BLOOD CELL COUNT (BEAKER) (test gkzq=858) 2.9 K/ L 3.5-10.5 RED BLOOD CELL COUNT (BEAKER) (test zjgd=661) 2.45 M/ L 3.93-5.22 HEMOGLOBIN (BEAKER) (test bpei=882) 8.0 GM/DL 11.2-15.7 HEMATOCRIT (BEAKER) (test uwkl=396) 25.1 % 34.1-44.9 MEAN CORPUSCULAR VOLUME (BEAKER) (test pybj=625) 102.4 fL 79.4-94.8 MEAN CORPUSCULAR HEMOGLOBIN (BEAKER) (test 32.7 pg 25.6-32.2 wdwj=546) MEAN CORPUSCULAR HEMOGLOBIN CONC (BEAKER) (test 31.9 GM/DL 32.2-35.5 bzro=336) RED CELL DISTRIBUTION WIDTH (BEAKER) (test 19.7 % 11.7-14.4 njic=163) PLATELET COUNT (BEAKER) (test kprp=814) 41 K/CU MM 150-450 MEAN PLATELET VOLUME (BEAKER) (test oxih=541) 11.7 fL 9.4-12.3 NUCLEATED RED BLOOD CELLS (BEAKER) (test 0 /100 WBC 0-0 ewfv=321) NEUTROPHILS RELATIVE PERCENT (BEAKER) (test 75 % ovxl=699) LYMPHOCYTES RELATIVE PERCENT (BEAKER) (test 13 % yvmc=507) MONOCYTES RELATIVE PERCENT (BEAKER) (test 11 % elbg=658) EOSINOPHILS RELATIVE PERCENT (BEAKER) (test 0 % avrn=933) BASOPHILS RELATIVE PERCENT (BEAKER) (test 0 % ahly=541) NEUTROPHILS ABSOLUTE COUNT (BEAKER) (test 2.13 K/ L 1.56-6.13 wesi=315) LYMPHOCYTES ABSOLUTE COUNT (BEAKER) (test 0.38 K/ L 1.18-3.74 feaf=567) MONOCYTES ABSOLUTE COUNT (BEAKER) (test wekb=854) 0.32 K/ L 0.24-0.36 EOSINOPHILS ABSOLUTE COUNT (BEAKER) (test 0.01 K/ L 0.04-0.36 ziwg=275) BASOPHILS ABSOLUTE COUNT (BEAKER) (test vywv=824) 0.01 K/ L 0.01-0.08 IMMATURE GRANULOCYTES-RELATIVE PERCENT (BEAKER) 0 % 0-1 (test xqah=5985) RAD, CHEST, 1 VIEW, NON [id number] 22:19:00Reason for exam:-> pneumoniaShould this be performed [...] MDReport Verified Date/Time: 03/28/2018 22:19:58 Reading Location: [address] Reading Room [id number] 05:56: 00 Test Item Value Reference Range Comments MAGNESIUM (BEAKER) (test qjwn=061) 1.9 mg/dL 1.6-2.6 COMPREHENSIVE METABOLIC [id number] 03:24:00 Test Item Value Reference Range Comments TOTAL PROTEIN (BEAKER) 5.9 gm/dL 6.0-8.3 (test bqul=537) ALBUMIN (BEAKER) (test 2.5 g/dL 3.5-5.0 bfhz=5971) ALKALINE PHOSPHATASE 42 U/L 40-150 (BEAKER) (test xeis=131) BILIRUBIN TOTAL (BEAKER) 1.0 mg/dL 0.2-1.2 (test tdef=290) SODIUM (BEAKER) (test 135 meq/L 136-145 lkhw=197) POTASSIUM (BEAKER) (test 4.1 meq/L 3.5-5.1 mjhx=644) CHLORIDE (BEAKER) (test 102 meq/L 98-107 ssbs=829) CO2 (BEAKER) (test 26 meq/L 22-29 pvoc=733) BLOOD UREA NITROGEN 24 mg/dL 7-21 (BEAKER) (test efav=831) CREATININE (BEAKER) (test 3.02 mg/dL 0.57-1.25 lonf=775) GLUCOSE RANDOM (BEAKER) 121 mg/dL 70-105 (test eeqj=438) CALCIUM (BEAKER) (test 8.2 mg/dL 8.4-10.2 vnqx=494) AST (SGOT) (BEAKER) (test 35 U/L 5-34 biuy=479) ALT (SGPT) (BEAKER) (test 13 U/L 6-55 maec=719) EGFR (BEAKER) (test 16 mL/min/1.73 sq m ESTIMATED GFR IS NOT fhtd=3089) ACCURATE CREATININE CLEARANCE IN PREDICTING GLOMERULAR FILTRATION RATE. ESTIMATED GFR IS NOT APPLICABLE FOR DIALYSIS PATIENTS. LACTIC ACID, VENOUS, WHOLE [id number] 03:15:00 Test Item Value Reference Range Comments LACTATE BLOOD VENOUS (2) (BEAKER) (test 1.1 mmol/L 0.5-2.2 eelh=4843) Effective 11/28/2015: Units/Reference Range ChangeNew: 0.5-2.2 mmol/L Previous: 5 -20 mg/dLCBC W/PLT COUNT & AUTO [id number] 02:57:00 Test Item Value Reference Range Comments WHITE BLOOD CELL COUNT (BEAKER) (test djcy=292) 2.7 K/ L 3.5-10.5 RED BLOOD CELL COUNT (BEAKER) (test ynsz=448) 2.45 M/ L 3.93-5.22 HEMOGLOBIN (BEAKER) (test nhfm=863) 8.0 GM/DL 11.2-15.7 HEMATOCRIT (BEAKER) (test tvrh=903) 24.9 % 34.1-44.9 MEAN CORPUSCULAR VOLUME (BEAKER) (test xyif=753) 101.6 fL 79.4-94.8 MEAN CORPUSCULAR HEMOGLOBIN (BEAKER) (test 32.7 pg 25.6-32.2 mqop=680) MEAN CORPUSCULAR HEMOGLOBIN CONC (BEAKER) (test 32.1 GM/DL 32.2-35.5 uoof=252) RED CELL DISTRIBUTION WIDTH (BEAKER) (test 20.7 % 11.7-14.4 jpxm=074) PLATELET COUNT (BEAKER) (test zjml=678) 44 K/CU MM 150-450 MEAN PLATELET VOLUME (BEAKER) (test qtld=279) 11.9 fL 9.4-12.3 NUCLEATED RED BLOOD CELLS (BEAKER) (test 0 /100 WBC 0-0 rrja=553) NEUTROPHILS RELATIVE PERCENT (BEAKER) (test 75 % gsuh=294) LYMPHOCYTES RELATIVE PERCENT (BEAKER) (test 12 % uoxe=109) MONOCYTES RELATIVE PERCENT (BEAKER) (test 12 % oxqa=035) EOSINOPHILS RELATIVE PERCENT (BEAKER) (test 0 % bjgg=700) BASOPHILS RELATIVE PERCENT (BEAKER) (test 0 % rxis=610) NEUTROPHILS ABSOLUTE COUNT (BEAKER) (test 2.05 K/ L 1.56-6.13 qgld=682) LYMPHOCYTES ABSOLUTE COUNT (BEAKER) (test 0.32 K/ L 1.18-3.74 eykl=756) MONOCYTES ABSOLUTE COUNT (BEAKER) (test vcir=108) 0.34 K/ L 0.24-0.36 EOSINOPHILS ABSOLUTE COUNT (BEAKER) (test 0.01 K/ L 0.04-0.36 mjsq=638) BASOPHILS ABSOLUTE COUNT (BEAKER) (test rtti=874) 0.01 K/ L 0.01-0.08 IMMATURE GRANULOCYTES-RELATIVE PERCENT (BEAKER) 0 % 0-1 (test dbpx=6572) POCT-GLUCOSE [id number] 02:55:00 Test Item Value Reference Range Comments POC-GLUCOSE METER (BEAKER) 148 mg/dL 70-110 TESTED AT [facility] [address] [place] [address] (test lmbe=6541) [facility] [address] BASIC METABOLIC [id number] 06:29:00 Test Item Value Reference Range Comments SODIUM (BEAKER) (test 129 meq/L 136-145 wxkz=332) POTASSIUM (BEAKER) (test 3.5 meq/L 3.5-5.1 kiox=083) CHLORIDE (BEAKER) (test 97 meq/L 98-107 ojjs=148) CO2 (BEAKER) (test 25 meq/L 22-29 hsbz=021) BLOOD UREA NITROGEN 44 mg/dL 7-21 (BEAKER) (test xclg=409) CREATININE (BEAKER) (test 4.23 mg/dL 0.57-1.25 afsp=317) GLUCOSE RANDOM (BEAKER) 118 mg/dL 70-105 (test ultm=739) CALCIUM (BEAKER) (test 7.0 mg/dL 8.4-10.2 thyo=938) EGFR (BEAKER) (test 11 mL/min/1.73 sq m ESTIMATED GFR IS NOT gcxt=3554) ACCURATE CREATININE CLEARANCE IN PREDICTING GLOMERULAR FILTRATION RATE. ESTIMATED GFR IS NOT APPLICABLE FOR DIALYSIS PATIENTS. [id number] 06:27:00 Test Item Value Reference Range Comments MAGNESIUM (BEAKER) (test zgwx=456) 1.8 mg/dL 1.6-2.6 CBC W/PLT COUNT & AUTO [id number] 06:09:00 Test Item Value Reference Range Comments WHITE BLOOD CELL COUNT (BEAKER) (test lswi=695) 3.1 K/ L 3.5-10.5 RED BLOOD CELL COUNT (BEAKER) (test kcek=388) 1.93 M/ L 3.93-5.22 HEMOGLOBIN (BEAKER) (test nqqu=254) 6.4 GM/DL 11.2-15.7 HEMATOCRIT (BEAKER) (test joer=722) 20.6 % 34.1-44.9 MEAN CORPUSCULAR VOLUME (BEAKER) (test evlj=858) 106.7 fL 79.4-94.8 MEAN CORPUSCULAR HEMOGLOBIN (BEAKER) (test 33.2 pg 25.6-32.2 azzv=350) MEAN CORPUSCULAR HEMOGLOBIN CONC (BEAKER) (test 31.1 GM/DL 32.2-35.5 obgi=941) RED CELL DISTRIBUTION WIDTH (BEAKER) (test 20.5 % 11.7-14.4 ekzb=132) PLATELET COUNT (BEAKER) (test ukql=492) 48 K/CU MM 150-450 MEAN PLATELET VOLUME (BEAKER) (test zsux=705) 12.1 fL 9.4-12.3 NUCLEATED RED BLOOD CELLS (BEAKER) (test 0 /100 WBC 0-0 stlo=361) NEUTROPHILS RELATIVE PERCENT (BEAKER) (test 77 % twus=614) LYMPHOCYTES RELATIVE PERCENT (BEAKER) (test 9 % leci=194) MONOCYTES RELATIVE PERCENT (BEAKER) (test 13 % ncdx=661) EOSINOPHILS RELATIVE PERCENT (BEAKER) (test 0 % jkgu=688) BASOPHILS RELATIVE PERCENT (BEAKER) (test 0 % irug=831) NEUTROPHILS ABSOLUTE COUNT (BEAKER) (test 2.42 K/ L 1.56-6.13 yzut=355) LYMPHOCYTES ABSOLUTE COUNT (BEAKER) (test 0.27 K/ L 1.18-3.74 uwbn=854) MONOCYTES ABSOLUTE COUNT (BEAKER) (test nwzo=399) 0.39 K/ L 0.24-0.36 EOSINOPHILS ABSOLUTE COUNT (BEAKER) (test 0.01 K/ L 0.04-0.36 xvky=235) BASOPHILS ABSOLUTE COUNT (BEAKER) (test umfw=860) 0.01 K/ L 0.01-0.08 IMMATURE GRANULOCYTES-RELATIVE PERCENT (BEAKER) 1 % 0-1 (test udoc=9370) RAD, SHOULDER, COMPLETE (MIN 2 VIEWS), [id number] 17:48:00Reason for exam:-& gt;r/o FxShould this be performed at the bedside?->YesFINAL REPORT TECHNIQUE: Three views of the left shoulder dated 08/15/2017 HISTORY: FX COMPARISON: None. FINDINGS:No fracture or dislocation. Bones are normal in density. No jointspace narrowing. No bone erosion or soft tissue nodule seen. No radiodense foreign body or subcutaneous emphysema. Left-sided MediPort is partially visualized. IMPRESSION:No fracture or dislocation. Signed : tSeve Torreseport Verified Date/Time: 03/26/2018 17:48:06 Reading Location: [facility] Radiology Reading Room [facility] METABOLIC [id number] 07:10:00 Test Item Value Reference Range Comments SODIUM (BEAKER) (test 133 meq/L 136-145 yjxv=320) POTASSIUM (BEAKER) (test 3.6 meq/L 3.5-5.1 trsu=629) CHLORIDE (BEAKER) (test 101 meq/L 98-107 vzko=542) CO2 (BEAKER) (test 24 meq/L 22-29 dhzk=560) BLOOD UREA NITROGEN 26 mg/dL 7-21 (BEAKER) (test wszr=807) CREATININE (BEAKER) (test 2.73 mg/dL 0.57-1.25 rdcl=480) GLUCOSE RANDOM (BEAKER) 117 mg/dL 70-105 (test gzlm=437) CALCIUM (BEAKER) (test 7.5 mg/dL 8.4-10.2 idez=681) EGFR (BEAKER) (test 18 mL/min/1.73 sq m ESTIMATED GFR IS NOT idni=5531) ACCURATE CREATININE CLEARANCE IN PREDICTING GLOMERULAR FILTRATION RATE. ESTIMATED GFR IS NOT APPLICABLE FOR DIALYSIS PATIENTS. [id number] 07:08:00 Test Item Value Reference Range Comments MAGNESIUM (BEAKER) (test fuln=810) 1.9 mg/dL 1.6-2.6 CBC W/PLT COUNT & AUTO [id number] 06:34:00 Test Item Value Reference Range Comments WHITE BLOOD CELL COUNT (BEAKER) (test crxp=097) 3.1 K/ L 3.5-10.5 RED BLOOD CELL COUNT (BEAKER) (test goyr=535) 2.18 M/ L 3.93-5.22 HEMOGLOBIN (BEAKER) (test snoo=910) 7.2 GM/DL 11.2-15.7 HEMATOCRIT (BEAKER) (test vtgr=296) 23.1 % 34.1-44.9 MEAN CORPUSCULAR VOLUME (BEAKER) (test pfqc=470) 106.0 fL 79.4-94.8 MEAN CORPUSCULAR HEMOGLOBIN (BEAKER) (test 33.0 pg 25.6-32.2 mhpy=791) MEAN CORPUSCULAR HEMOGLOBIN CONC (BEAKER) (test 31.2 GM/DL 32.2-35.5 sjah=521) RED CELL DISTRIBUTION WIDTH (BEAKER) (test 21.7 % 11.7-14.4 jfao=885) PLATELET COUNT (BEAKER) (test csar=145) 45 K/CU MM 150-450 MEAN PLATELET VOLUME (BEAKER) (test vouy=508) 11.8 fL 9.4-12.3 NUCLEATED RED BLOOD CELLS (BEAKER) (test 0 /100 WBC 0-0 lygb=938) NEUTROPHILS RELATIVE PERCENT (BEAKER) (test 83 % gacv=416) LYMPHOCYTES RELATIVE PERCENT (BEAKER) (test 7 % hgfg=697) MONOCYTES RELATIVE PERCENT (BEAKER) (test 10 % euob=530) EOSINOPHILS RELATIVE PERCENT (BEAKER) (test 0 % injj=344) BASOPHILS RELATIVE PERCENT (BEAKER) (test 0 % onxg=107) NEUTROPHILS ABSOLUTE COUNT (BEAKER) (test 2.55 K/ L 1.56-6.13 gxar=616) LYMPHOCYTES ABSOLUTE COUNT (BEAKER) (test 0.20 K/ L 1.18-3.74 kogm=014) MONOCYTES ABSOLUTE COUNT (BEAKER) (test cbdb=359) 0.31 K/ L 0.24-0.36 EOSINOPHILS ABSOLUTE COUNT (BEAKER) (test 0.00 K/ L 0.04-0.36 lsjg=696) BASOPHILS ABSOLUTE COUNT (BEAKER) (test fdnx=881) 0.01 K/ L 0.01-0.08 IMMATURE GRANULOCYTES-RELATIVE PERCENT (BEAKER) 1 % 0-1 (test syvn=5668) CT, [id number] 02:57:00R/o retroperitoneal hematoma s/p kidney bxFINAL REPORT [...] lower lobes. Unchanged splenomegaly. Signed: Kellee Islas MDReport Verified Date/Time: 03/26/2018 02:57:14 Reading Location: [facility] Transitional Reading Room Electronically signed by: KELLEE ISLAS MD on 2017 02:57 AMLACTATE DEHYDROGENASE (LDH)2018-03-25 14:50:00 Test Item Value Reference Range Comments LACTATE DEHYDROGENASE (BEAKER) (test zruj=785) 722 U/L 125-220 PERIPHERAL BLOOD SMEAR - HOLD [id number] 14:37:00 Test Item Value Reference Range Comments PERIPHERAL SMEAR SAVE (BEAKER) (test gkfy=9369) saved BASIC METABOLIC [id number] 07:08:00 Test Item Value Reference Range Comments SODIUM (BEAKER) (test 127 meq/L 136-145 ghce=184) POTASSIUM (BEAKER) (test 4.3 meq/L 3.5-5.1 yogi=406) CHLORIDE (BEAKER) (test 94 meq/L 98-107 jgpd=457) CO2 (BEAKER) (test 23 meq/L 22-29 eodu=274) BLOOD UREA NITROGEN 56 mg/dL 7-21 (BEAKER) (test jxad=706) CREATININE (BEAKER) (test 4.30 mg/dL 0.57-1.25 sozs=414) GLUCOSE RANDOM (BEAKER) 110 mg/dL 70-105 (test ujmp=167) CALCIUM (BEAKER) (test 6.4 mg/dL 8.4-10.2 rpxm=262) EGFR (BEAKER) (test 11 mL/min/1.73 sq m ESTIMATED GFR IS NOT kunn=8705) ACCURATE CREATININE CLEARANCE IN PREDICTING GLOMERULAR FILTRATION RATE. ESTIMATED GFR IS NOT APPLICABLE FOR DIALYSIS PATIENTS. [id number] 07:04:00 Test Item Value Reference Range Comments MAGNESIUM (BEAKER) (test meln=706) 1.9 mg/dL 1.6-2.6 CBC W/PLT COUNT & AUTO [id number] 06:27:00 Test Item Value Reference Range Comments WHITE BLOOD CELL COUNT (BEAKER) (test czxl=371) 5.3 K/ L 3.5-10.5 RED BLOOD CELL COUNT (BEAKER) (test mbtc=204) 2.39 M/ L 3.93-5.22 HEMOGLOBIN (BEAKER) (test guzg=099) 7.9 GM/DL 11.2-15.7 HEMATOCRIT (BEAKER) (test ledr=500) 25.0 % 34.1-44.9 MEAN CORPUSCULAR VOLUME (BEAKER) (test avvy=087) 104.6 fL 79.4-94.8 MEAN CORPUSCULAR HEMOGLOBIN (BEAKER) (test 33.1 pg 25.6-32.2 uusz=292) MEAN CORPUSCULAR HEMOGLOBIN CONC (BEAKER) (test 31.6 GM/DL 32.2-35.5 hjxv=919) RED CELL DISTRIBUTION WIDTH (BEAKER) (test 22.2 % 11.7-14.4 wbtl=383) PLATELET COUNT (BEAKER) (test zyve=938) 60 K/CU MM 150-450 MEAN PLATELET VOLUME (BEAKER) (test engx=951) 12.7 fL 9.4-12.3 NUCLEATED RED BLOOD CELLS (BEAKER) (test 0 /100 WBC 0-0 bspf=090) NEUTROPHILS RELATIVE PERCENT (BEAKER) (test 85 % aldx=029) LYMPHOCYTES RELATIVE PERCENT (BEAKER) (test 6 % stmm=015) MONOCYTES RELATIVE PERCENT (BEAKER) (test 9 % kjmz=022) EOSINOPHILS RELATIVE PERCENT (BEAKER) (test 0 % htgw=697) BASOPHILS RELATIVE PERCENT (BEAKER) (test 0 % nwtw=898) NEUTROPHILS ABSOLUTE COUNT (BEAKER) (test 4.50 K/ L 1.56-6.13 ybld=974) LYMPHOCYTES ABSOLUTE COUNT (BEAKER) (test 0.30 K/ L 1.18-3.74 ikgq=483) MONOCYTES ABSOLUTE COUNT (BEAKER) (test xbbg=310) 0.46 K/ L 0.24-0.36 EOSINOPHILS ABSOLUTE COUNT (BEAKER) (test 0.01 K/ L 0.04-0.36 znuz=438) BASOPHILS ABSOLUTE COUNT (BEAKER) (test kddw=003) 0.01 K/ L 0.01-0.08 IMMATURE GRANULOCYTES-RELATIVE PERCENT ([facility]) 1 % 0-1 (test vcgp=4867) HEPATITIS B [id number] 13:58:00 Test Item Value Reference Range Comments HEPATITIS B CORE TOTAL Nonreactive Nonreactive ANTIBODY (ADDY) (test cbta=916) HEPATITIS B SURFACE ANTIBODY 133.0 mIU/mL <8.0 Testing performed at [facility] ([facility]) (test rsaj=863) Diagnostic Laboratory.See attach result for further interpretation. HEPATITIS B SURFACE ANTIGEN Nonreactive Nonreactive (2) ([facility]) (test oufj=2978) U/S, BIOPSY, RENAL (KIDNEY)2018-03-24 12:59:00Reason for exam:->Acute [...] MDReport Verified Date/Time: 03/24 12:59:37 Reading Location: [facility] P006J Ultrasound Reading Room BONE MARROW [id number] 11:03:00Bone Marrow Pathology Report Case: [id number] Authorizing Provider: Jordan Sultana MD Collected: 03/17/2018 1457 Ordering Location : [address] Med/Surg Received: 03/17/2018 6340 Pathologist: Doug Lee MD Specimens: A) - Iliac, Right B) - Iliac, Right C) -Iliac , Right This addendum is created to report the [facility] results for the Oncologic chromosomal study:There is no change to the original diagnosis.Oncologic Chromosomal Study is Normal.Please see attached scanned [facility] reports for details.Javier Lee MDAddendum electronically signed by Doug Lee MD on 2017 at 11:03 AMBONE MARROW ASPIRATE, CLOT, AND DECALCIFIED BIOPSY:-VARIABLY CELLULAR (10-40%) MARROW WITH TRILINEAGE HEMATOPOIESIS-FOCAL STROMAL INJURY AND INCREASED ACTIVATED MACROPHAGES-ERYTHROID AND MEGAKARYOCYTICHYPERPLASIA WITH VARIABLE DYSPOIESIS-NO EVIDENCE OF METASTATIC DISEASE-NO EVIDENCE OF LYMPHOMA OR LEUKEMIA-INCREASED IRON STORES WITH NO RINGED SIDEROBLASTS-ONCOLOGIC CHROMOSOMAL ANALYSIS PENDING-SEE COMMENTPERIPHERAL BLOOD:-HYPOCHROMIC, NORMOCYTIC ANEMIA-THROMBOCYTOPENIA Signing Pathologist Direct Phone Line: [phone] signed by Doug Lee MD on 03/23/2018 [...] leukemia or metastatic disease. The corresponding flow cytometry([id number]) of the aspirate did not demonstrate evidence of an aberrant B or T lymphocyte process and no increase in blasts. Overall, the stromal changes, dyspoiesis and activated macrophages can be seen with chemotherapy effect. No evidence of a neoplastic process is identified. Clinical correlation is recommend. Oncologic chromosomal studies are pending and the results will be submitted as an addendum when available. 61041; 30028; 39479 x 2; 47780; [id number] x 1; 55946 [id number] malignant neoplasm of breast with metastasis to [...] clusters. CD61: Highlights megakaryocytes which appear mildly rsurfskwkQY484: Demonstrates slightly more progenitor cells then CD34 [...] and its performance characteristics determined by [facility]. It has not been cleared [...] 5.2, CD3, CD20, CD34, CD61, CD117, CD138, [place], Lambda , E-Cadherin.CBC W/PLT COUNT & AUTO [id number] 06:18:00 Test Item Value Reference Range Comments WHITE BLOOD CELL COUNT (BEAKER) (test zwgi=074) 5.0 K/ L 3.5-10.5 RED BLOOD CELL COUNT (BEAKER) (test fvts=637) 2.77 M/ L 3.93-5.22 HEMOGLOBIN (BEAKER) (test njdu=261) 9.0 GM/DL 11.2-15.7 HEMATOCRIT (BEAKER) (test ppgj=383) 29.8 % 34.1-44.9 MEAN CORPUSCULAR VOLUME (BEAKER) (test fqrv=151) 107.6 fL 79.4-94.8 MEAN CORPUSCULAR HEMOGLOBIN (BEAKER) (test 32.5 pg 25.6-32.2 jrna=453) MEAN CORPUSCULAR HEMOGLOBIN CONC (BEAKER) (test 30.2 GM/DL 32.2-35.5 bmbr=907) RED CELL DISTRIBUTION WIDTH (BEAKER) (test 23.6 % 11.7-14.4 fxvg=987) PLATELET COUNT (BEAKER) (test wilb=956) 61 K/CU MM 150-450 MEAN PLATELET VOLUME (BEAKER) (test lilw=343) 11.2 fL 9.4-12.3 NUCLEATED RED BLOOD CELLS (BEAKER) (test 0 /100 WBC 0-0 ydpz=605) NEUTROPHILS RELATIVE PERCENT (BEAKER) (test 82 % ibmd=126) LYMPHOCYTES RELATIVE PERCENT (BEAKER) (test 7 % xqqv=864) MONOCYTES RELATIVE PERCENT (BEAKER) (test 10 % cgmd=631) EOSINOPHILS RELATIVE PERCENT (BEAKER) (test 0 % xvna=275) BASOPHILS RELATIVE PERCENT (BEAKER) (test 0 % gomn=491) NEUTROPHILS ABSOLUTE COUNT (BEAKER) (test 4.14 K/ L 1.56-6.13 lvuv=508) LYMPHOCYTES ABSOLUTE COUNT (BEAKER) (test 0.35 K/ L 1.18-3.74 wcwm=682) MONOCYTES ABSOLUTE COUNT (BEAKER) (test bghc=963) 0.49 K/ L 0.24-0.36 EOSINOPHILS ABSOLUTE COUNT (BEAKER) (test 0.02 K/ L 0.04-0.36 njlg=851) BASOPHILS ABSOLUTE COUNT (BEAKER) (test ojbb=298) 0.01 K/ L 0.01-0.08 IMMATURE GRANULOCYTES-RELATIVE PERCENT (BEAKER) 0 % 0-1 (test lynb=9831) BASIC METABOLIC [id number] 05:46:00 Test Item Value Reference Range Comments SODIUM (BEAKER) (test 129 meq/L 136-145 pdsg=894) POTASSIUM (BEAKER) (test 3.9 meq/L 3.5-5.1 cdek=174) CHLORIDE (BEAKER) (test 98 meq/L 98-107 fbqi=007) CO2 (BEAKER) (test 22 meq/L 22-29 qsoa=264) BLOOD UREA NITROGEN 42 mg/dL 7-21 (BEAKER) (test pgul=731) CREATININE (BEAKER) (test 3.25 mg/dL 0.57-1.25 rcrm=834) GLUCOSE RANDOM (BEAKER) 101 mg/dL 70-105 (test biqd=982) CALCIUM (BEAKER) (test 7.0 mg/dL 8.4-10.2 wjpw=097) EGFR (BEAKER) (test 15 mL/min/1.73 sq m ESTIMATED GFR IS NOT qvrx=2031) ACCURATE CREATININE CLEARANCE IN PREDICTING GLOMERULAR FILTRATION RATE. ESTIMATED GFR IS NOT APPLICABLE FOR DIALYSIS PATIENTS. [id number] 05:40:00 Test Item Value Reference Range Comments MAGNESIUM (BEAKER) (test 2.1 mg/dL 1.6-2.6 Specimen slightly hemolyzed pmht=916) BASIC METABOLIC [id number] 23:13:00 Test Item Value Reference Range Comments SODIUM (BEAKER) (test 133 meq/L 136-145 jplf=856) POTASSIUM (BEAKER) (test 3.6 meq/L 3.5-5.1 koza=453) CHLORIDE (BEAKER) (test 98 meq/L 98-107 drop=043) CO2 (BEAKER) (test 26 meq/L 22-29 sjli=346) BLOOD UREA NITROGEN 42 mg/dL 7-21 (BEAKER) (test rknf=176) CREATININE (BEAKER) (test 3.20 mg/dL 0.57-1.25 bqkc=740) GLUCOSE RANDOM (BEAKER) 113 mg/dL 70-105 (test xwwv=688) CALCIUM (BEAKER) (test 6.9 mg/dL 8.4-10.2 frgu=931) EGFR (BEAKER) (test 15 mL/min/1.73 sq m ESTIMATED GFR IS NOT mysi=8182) ACCURATE CREATININE CLEARANCE IN PREDICTING GLOMERULAR FILTRATION RATE. ESTIMATED GFR IS NOT APPLICABLE FOR DIALYSIS PATIENTS. BASIC METABOLIC [id number] 18:45:00 Test Item Value Reference Range Comments SODIUM (BEAKER) (test 134 meq/L 136-145 txjf=117) POTASSIUM (BEAKER) (test 3.8 meq/L 3.5-5.1 yozg=226) CHLORIDE (BEAKER) (test 100 meq/L 98-107 fibt=085) CO2 (BEAKER) (test 25 meq/L 22-29 rxnr=976) BLOOD UREA NITROGEN 37 mg/dL 7-21 (BEAKER) (test mrvx=095) CREATININE (BEAKER) (test 2.98 mg/dL 0.57-1.25 alwd=706) GLUCOSE RANDOM (BEAKER) 131 mg/dL 70-105 (test ohkv=538) CALCIUM (BEAKER) (test 7.3 mg/dL 8.4-10.2 eice=571) EGFR (BEAKER) (test 16 mL/min/1.73 sq m ESTIMATED GFR IS NOT acan=3044) ACCURATE CREATININE CLEARANCE IN PREDICTING GLOMERULAR FILTRATION RATE. ESTIMATED GFR IS NOT APPLICABLE FOR DIALYSIS PATIENTS. POCT-GLUCOSE [id number] 10:29:00 Test Item Value Reference Range Comments POC-GLUCOSE METER (BEAKER) 93 mg/dL 70-110 TESTED AT [facility] [address] [facility] (test wzhw=7881) [facility] [address] BASIC METABOLIC [id number] 07:02:00 Test Item Value Reference Range Comments SODIUM (BEAKER) (test 133 meq/L 136-145 thka=097) POTASSIUM (BEAKER) (test 3.7 meq/L 3.5-5.1 yjnr=393) CHLORIDE (BEAKER) (test 97 meq/L 98-107 jevg=056) CO2 (BEAKER) (test 25 meq/L 22-29 begb=682) BLOOD UREA NITROGEN 70 mg/dL 7-21 (BEAKER) (test erki=751) CREATININE (BEAKER) (test 4.25 mg/dL 0.57-1.25 ijln=046) GLUCOSE RANDOM (BEAKER) 93 mg/dL 70-105 (test keqh=394) CALCIUM (BEAKER) (test 7.2 mg/dL 8.4-10.2 njiq=764) EGFR (BEAKER) (test 11 mL/min/1.73 sq m ESTIMATED GFR IS NOT usnd=0893) ACCURATE CREATININE CLEARANCE IN PREDICTING GLOMERULAR FILTRATION RATE. ESTIMATED GFR IS NOT APPLICABLE FOR DIALYSIS PATIENTS. [id number] 07:01:00 Test Item Value Reference Range Comments MAGNESIUM (BEAKER) (test raon=260) 2.2 mg/dL 1.6-2.6 CBC W/PLT COUNT & AUTO [id number] 06:36:00 Test Item Value Reference Range Comments WHITE BLOOD CELL COUNT (BEAKER) (test ckot=028) 6.2 K/ L 3.5-10.5 RED BLOOD CELL COUNT (BEAKER) (test srjk=594) 2.89 M/ L 3.93-5.22 HEMOGLOBIN (BEAKER) (test gggg=946) 9.5 GM/DL 11.2-15.7 HEMATOCRIT (BEAKER) (test txex=618) 31.1 % 34.1-44.9 MEAN CORPUSCULAR VOLUME (BEAKER) (test wrmh=238) 107.6 fL 79.4-94.8 MEAN CORPUSCULAR HEMOGLOBIN (BEAKER) (test 32.9 pg 25.6-32.2 dacv=559) MEAN CORPUSCULAR HEMOGLOBIN CONC (BEAKER) (test 30.5 GM/DL 32.2-35.5 onub=371) RED CELL DISTRIBUTION WIDTH (BEAKER) (test 24.9 % 11.7-14.4 gjtf=986) PLATELET COUNT (BEAKER) (test eeyj=334) 73 K/CU MM 150-450 MEAN PLATELET VOLUME (BEAKER) (test kqel=890) 13.4 fL 9.4-12.3 NUCLEATED RED BLOOD CELLS (BEAKER) (test 0 /100 WBC 0-0 xskz=714) NEUTROPHILS RELATIVE PERCENT (BEAKER) (test 87 % eaxu=222) LYMPHOCYTES RELATIVE PERCENT (BEAKER) (test 5 % hrou=900) MONOCYTES RELATIVE PERCENT (BEAKER) (test 7 % kfjr=226) EOSINOPHILS RELATIVE PERCENT (BEAKER) (test 0 % yagd=717) BASOPHILS RELATIVE PERCENT (BEAKER) (test 0 % nxji=337) NEUTROPHILS ABSOLUTE COUNT (BEAKER) (test 5.36 K/ L 1.56-6.13 hoeh=615) LYMPHOCYTES ABSOLUTE COUNT (BEAKER) (test 0.31 K/ L 1.18-3.74 twme=364) MONOCYTES ABSOLUTE COUNT (BEAKER) (test bwck=965) 0.44 K/ L 0.24-0.36 EOSINOPHILS ABSOLUTE COUNT (BEAKER) (test 0.01 K/ L 0.04-0.36 wbvs=603) BASOPHILS ABSOLUTE COUNT (BEAKER) (test sybr=922) 0.00 K/ L 0.01-0.08 IMMATURE GRANULOCYTES-RELATIVE PERCENT (BEAKER) 1 % 0-1 (test qops=8723) [id number] 06:35:00 Test Item Value Reference Range Comments PROTIME (BEAKER) (test qxqd=762) 15.3 seconds 11.7-14.7 INR (BEAKER) (test mtzf=735) 1.2 <=5.9 PARTIAL THROMBOPLASTIN TIME (BEAKER) (test 29.7 seconds 22.5-36.0 rwtf=648) RECOMMENDED COUMADIN/WARFARIN INR THERAPY RANGESSTANDARD DOSE: 2.0 - 3.0 Includes: PROPHYLAXIS forvenous thrombosis, systemic embolization; TREATMENT for venous thrombosis and/or pulmonary embolus.HIGH RISK: Target INR is 2.5-3.5 for patients with mechanical heart valves.[id number] 23:55:00 Test Item Value Reference Range Comments PHOSPHORUS (BEAKER) (test doju=987) 6.1 mg/dL 2.3-4.7 BASIC METABOLIC [id number] 23:55:00 Test Item Value Reference Range Comments SODIUM (BEAKER) (test 135 meq/L 136-145 kmap=171) POTASSIUM (BEAKER) (test 3.6 meq/L 3.5-5.1 xnie=413) CHLORIDE (BEAKER) (test 97 meq/L 98-107 ccau=593) CO2 (BEAKER) (test 26 meq/L 22-29 ukfl=206) BLOOD UREA NITROGEN 63 mg/dL 7-21 (BEAKER) (test jazn=719) CREATININE (BEAKER) (test 3.99 mg/dL 0.57-1.25 mnsx=440) GLUCOSE RANDOM (BEAKER) 121 mg/dL 70-105 (test osky=065) CALCIUM (BEAKER) (test 7.2 mg/dL 8.4-10.2 vdfo=334) EGFR (BEAKER) (test 12 mL/min/1.73 sq m ESTIMATED GFR IS NOT jrzq=7034) ACCURATE CREATININE CLEARANCE IN PREDICTING GLOMERULAR FILTRATION RATE. ESTIMATED GFR IS NOT APPLICABLE FOR DIALYSIS PATIENTS. BASIC METABOLIC [id number] 17:30:00 Test Item Value Reference Range Comments SODIUM (BEAKER) (test 137 meq/L 136-145 dkiw=913) POTASSIUM (BEAKER) (test 3.7 meq/L 3.5-5.1 bkug=087) CHLORIDE (BEAKER) (test 98 meq/L 98-107 uzxa=180) CO2 (BEAKER) (test 27 meq/L 22-29 cfiq=796) BLOOD UREA NITROGEN 53 mg/dL 7-21 (BEAKER) (test bwxt=898) CREATININE (BEAKER) (test 3.30 mg/dL 0.57-1.25 lqop=661) GLUCOSE RANDOM (BEAKER) 105 mg/dL 70-105 (test jdcx=008) CALCIUM (BEAKER) (test 8.1 mg/dL 8.4-10.2 darz=336) EGFR (BEAKER) (test 15 mL/min/1.73 sq m ESTIMATED GFR IS NOT gpyr=5811) ACCURATE CREATININE CLEARANCE IN PREDICTING GLOMERULAR FILTRATION RATE. ESTIMATED GFR IS NOT APPLICABLE FOR DIALYSIS PATIENTS. HEPATIC FUNCTION [id number] 17:26:00 Test Item Value Reference Range Comments TOTAL PROTEIN (BEAKER) (test pkmk=670) 6.7 gm/dL 6.0-8.3 ALBUMIN (BEAKER) (test zubh=7270) 3.1 g/dL 3.5-5.0 BILIRUBIN TOTAL (BEAKER) (test tcgc=429) 1.6 mg/dL 0.2-1.2 BILIRUBIN DIRECT (BEAKER) (test eycy=771) 0.7 mg/dL 0.1-0.5 ALKALINE PHOSPHATASE (BEAKER) (test hqeq=158) 63 U/L 40-150 AST (SGOT) (BEAKER) (test evei=224) 48 U/L 5-34 ALT (SGPT) (BEAKER) (test bceq=673) 24 U/L 6-55 BASIC METABOLIC [id number] 15:15:00 Test Item Value Reference Range Comments SODIUM (BEAKER) (test 134 meq/L 136-145 xrix=650) POTASSIUM (BEAKER) (test 4.1 meq/L 3.5-5.1 rlcv=731) CHLORIDE (BEAKER) (test 94 meq/L 98-107 nerg=962) CO2 (BEAKER) (test 23 meq/L 22-29 bcoi=800) BLOOD UREA NITROGEN 112 mg/dL 7-21 (BEAKER) (test rcxv=888) CREATININE (BEAKER) (test 5.93 mg/dL 0.57-1.25 ftyy=211) GLUCOSE RANDOM (BEAKER) 104 mg/dL 70-105 (test fclr=910) CALCIUM (BEAKER) (test 7.2 mg/dL 8.4-10.2 aeeu=268) EGFR (BEAKER) (test 7 mL/min/1.73 sq m ESTIMATED GFR IS NOT peha=8866) ACCURATE CREATININE CLEARANCE IN PREDICTING GLOMERULAR FILTRATION RATE. ESTIMATED GFR IS NOT APPLICABLE FOR DIALYSIS PATIENTS. URINE IMMUNOFIXATION, [id number] 15:09:00 Test Item Value Reference Range Comments PROTEIN, URINE (BEAKER) (test 412 mg/dL 0-14 cybr=8156) ALBUMIN URINE ELP (BEAKER) 56.3 % (test wgys=5973) GAMMA GLOBULIN URINE (BEAKER) 43.7 % (test ulas=4668) URINE JUDSON ID-[id number] (BEAKER) No monoclonal proteins or (test oxvy=4988) monoclonal free light chains detected. [id number] (BEAKER) Barbie Mccollum MD (test wcvc=1775) (electronic signature) URINE PROTEIN ELECTROPHORESIS, [id number] 13:02:00 Test Item Value Reference Range Comments PROTEIN, URINE (BEAKER) (test 412 mg/dL 0-14 nscy=9880) ALBUMIN URINE ELP (BEAKER) 56.3 % (test zxmb=9721) GAMMA GLOBULIN URINE (BEAKER) 43.7 % (test hplt=1475) UPEP, ID-438 (BEAKER) (test No monoclonal bands detected. jhiw=5514) [id number] (BEAKER) Barbie Mccollum MD (test wdse=5233) (electronic signature) [id number] 08:19:00 Test Item Value Reference Range Comments HAPTOGLOBIN (BEAKER) (test dvvs=343) < mg/dL 14-258 BASIC METABOLIC [id number] 07:44:00 Test Item Value Reference Range Comments SODIUM (BEAKER) (test 133 meq/L 136-145 xwbm=786) POTASSIUM (BEAKER) (test 4.4 meq/L 3.5-5.1 pygo=627) CHLORIDE (BEAKER) (test 95 meq/L 98-107 gwvi=280) CO2 (BEAKER) (test 23 meq/L 22-29 gzwr=641) BLOOD UREA NITROGEN 108 mg/dL 7-21 (BEAKER) (test xuwc=792) CREATININE (BEAKER) (test 5.79 mg/dL 0.57-1.25 waue=129) GLUCOSE RANDOM (BEAKER) 107 mg/dL 70-105 (test lmva=017) CALCIUM (BEAKER) (test 7.4 mg/dL 8.4-10.2 gazb=079) EGFR (BEAKER) (test 8 mL/min/1.73 sq m ESTIMATED GFR IS NOT hmon=8599) ACCURATE CREATININE CLEARANCE IN PREDICTING GLOMERULAR FILTRATION RATE. ESTIMATED GFR IS NOT APPLICABLE FOR DIALYSIS PATIENTS. [id number] 07:29:00 Test Item Value Reference Range Comments MAGNESIUM (BEAKER) (test fpie=369) 2.6 mg/dL 1.6-2.6 LACTATE DEHYDROGENASE (LDH)2018-03-22 07:29:00 Test Item Value Reference Range Comments LACTATE DEHYDROGENASE (BEAKER) (test qixt=207) 812 U/L 125-220 CBC W/PLT COUNT & AUTO [id number] 07:15:00 Test Item Value Reference Range Comments WHITE BLOOD CELL COUNT (BEAKER) (test hiot=267) 5.5 K/ L 3.5-10.5 RED BLOOD CELL COUNT (BEAKER) (test mlvj=867) 2.90 M/ L 3.93-5.22 HEMOGLOBIN (BEAKER) (test uiae=416) 9.5 GM/DL 11.2-15.7 HEMATOCRIT (BEAKER) (test nvqh=736) 30.7 % 34.1-44.9 MEAN CORPUSCULAR VOLUME (BEAKER) (test gqlb=373) 105.9 fL 79.4-94.8 MEAN CORPUSCULAR HEMOGLOBIN (BEAKER) (test 32.8 pg 25.6-32.2 emjr=759) MEAN CORPUSCULAR HEMOGLOBIN CONC (BEAKER) (test 30.9 GM/DL 32.2-35.5 yphc=298) RED CELL DISTRIBUTION WIDTH (BEAKER) (test 24.7 % 11.7-14.4 rolq=885) PLATELET COUNT (BEAKER) (test sngb=428) 56 K/CU MM 150-450 MEAN PLATELET VOLUME (BEAKER) (test blnx=610) 11.6 fL 9.4-12.3 NUCLEATED RED BLOOD CELLS (BEAKER) (test 0 /100 WBC 0-0 ncop=224) NEUTROPHILS RELATIVE PERCENT (BEAKER) (test 83 % dglu=103) LYMPHOCYTES RELATIVE PERCENT (BEAKER) (test 9 % iako=890) MONOCYTES RELATIVE PERCENT (BEAKER) (test 7 % bmrs=613) EOSINOPHILS RELATIVE PERCENT (BEAKER) (test 0 % xlrj=312) BASOPHILS RELATIVE PERCENT (BEAKER) (test 0 % jrkj=531) NEUTROPHILS ABSOLUTE COUNT (BEAKER) (test 4.58 K/ L 1.56-6.13 sbqh=716) LYMPHOCYTES ABSOLUTE COUNT (BEAKER) (test 0.49 K/ L 1.18-3.74 mmck=231) MONOCYTES ABSOLUTE COUNT (BEAKER) (test nzqe=914) 0.39 K/ L 0.24-0.36 EOSINOPHILS ABSOLUTE COUNT (BEAKER) (test 0.00 K/ L 0.04-0.36 oqek=429) BASOPHILS ABSOLUTE COUNT (BEAKER) (test swkz=088) 0.01 K/ L 0.01-0.08 IMMATURE GRANULOCYTES-RELATIVE PERCENT (BEAKER) 1 % 0-1 (test afkv=2097) RETICULOCYTE [id number] 07:08:00 Test Item Value Reference Range Comments RETICULOCYTE COUNT PCT (BEAKER) (test rqux=439) 13.4 % 0.5-1.7 [id number] 07:07:00 Test Item Value Reference Range Comments PROTIME (BEAKER) (test fyjo=766) 16.2 seconds 11.7-14.7 INR (BEAKER) (test mdem=960) 1.3 <=5.9 PARTIAL THROMBOPLASTIN TIME (BEAKER) (test 31.2 seconds 22.5-36.0 tgvu=870) RECOMMENDED COUMADIN/WARFARIN INR THERAPY RANGESSTANDARD DOSE: 2.0 - 3.0 Includes: PROPHYLAXIS forvenous thrombosis, systemic embolization; TREATMENT for venous thrombosis and/or pulmonary embolus.HIGH RISK: Target INR is 2.5-3.5 for patients with mechanical heart valves.PROTHROMBIN [id number] 07:06: 00 Test Item Value Reference Range Comments PROTIME (BEAKER) (test fiew=579) 16.2 seconds 11.7-14.7 INR (BEAKER) (test vuxu=095) 1.3 <=5.9 RECOMMENDED COUMADIN/WARFARIN INR THERAPY RANGESSTANDARD DOSE: 2.0 - 3.0 Includes: PROPHYLAXIS forvenous thrombosis, systemic embolization; TREATMENT for venous thrombosis and/or pulmonary embolus.HIGH RISK: Target INR is 2.5-3.5 for patients with mechanical heart valves.BASIC METABOLIC [id number] 22:18: 00 Test Item Value Reference Range Comments SODIUM (BEAKER) (test 132 meq/L 136-145 fkwy=212) POTASSIUM (BEAKER) (test 4.7 meq/L 3.5-5.1 bpyl=219) CHLORIDE (BEAKER) (test 95 meq/L 98-107 bzad=471) CO2 (BEAKER) (test 22 meq/L 22-29 pzpw=020) BLOOD UREA NITROGEN 99 mg/dL 7-21 (BEAKER) (test vdag=544) CREATININE (BEAKER) (test 5.57 mg/dL 0.57-1.25 edgk=610) GLUCOSE RANDOM (BEAKER) 139 mg/dL 70-105 (test stvh=123) CALCIUM (BEAKER) (test 7.3 mg/dL 8.4-10.2 yuvh=829) EGFR (BEAKER) (test 8 mL/min/1.73 sq m ESTIMATED GFR IS NOT btdk=4394) ACCURATE CREATININE CLEARANCE IN PREDICTING GLOMERULAR FILTRATION RATE. ESTIMATED GFR IS NOT APPLICABLE FOR DIALYSIS PATIENTS. RAD, CHEST, 1 VIEW, NON [id number] 18:54:00Reason for exam:->cough, chest congestionShould this be [...] MDReport Verified Date/Time: 03/21/2018 18:54:34 Reading Location: [facility] C013Y CT Body Reading Room [facility] METABOLIC [id number] 16:55:00 Test Item Value Reference Range Comments SODIUM (BEAKER) (test 135 meq/L 136-145 zydq=175) POTASSIUM (BEAKER) (test 5.1 meq/L 3.5-5.1 ragp=960) CHLORIDE (BEAKER) (test 97 meq/L 98-107 tcwu=274) CO2 (BEAKER) (test 20 meq/L 22-29 xucg=146) BLOOD UREA NITROGEN 100 mg/dL 7-21 (BEAKER) (test xdty=605) CREATININE (BEAKER) (test 5.45 mg/dL 0.57-1.25 mmrp=639) GLUCOSE RANDOM (BEAKER) 133 mg/dL 70-105 (test jknb=515) CALCIUM (BEAKER) (test 7.7 mg/dL 8.4-10.2 yiqx=046) EGFR (BEAKER) (test 8 mL/min/1.73 sq m ESTIMATED GFR IS NOT ihaq=0189) ACCURATE CREATININE CLEARANCE IN PREDICTING GLOMERULAR FILTRATION RATE. ESTIMATED GFR IS NOT APPLICABLE FOR DIALYSIS PATIENTS. BLOOD [id number] 13:00:00 Test Item Value Reference Range Comments CULTURE (BEAKER) (test cswl=3316) No growth in 5 days BASIC METABOLIC [id number] 12:42:00 Test Item Value Reference Range Comments SODIUM (BEAKER) (test 134 meq/L 136-145 zysg=591) POTASSIUM (BEAKER) (test 4.7 meq/L 3.5-5.1 doqu=269) CHLORIDE (BEAKER) (test 95 meq/L 98-107 euhx=975) CO2 (BEAKER) (test 21 meq/L 22-29 plrt=766) BLOOD UREA NITROGEN 97 mg/dL 7-21 (BEAKER) (test wbyw=514) CREATININE (BEAKER) (test 5.18 mg/dL 0.57-1.25 rprb=491) GLUCOSE RANDOM (BEAKER) 121 mg/dL 70-105 (test rlvz=121) CALCIUM (BEAKER) (test 7.9 mg/dL 8.4-10.2 tcjj=247) EGFR (BEAKER) (test 9 mL/min/1.73 sq m ESTIMATED GFR IS NOT nsfr=1290) ACCURATE CREATININE CLEARANCE IN PREDICTING GLOMERULAR FILTRATION RATE. ESTIMATED GFR IS NOT APPLICABLE FOR DIALYSIS PATIENTS. BASIC METABOLIC [id number] 06:21:00 Test Item Value Reference Range Comments SODIUM (BEAKER) (test 133 meq/L 136-145 nike=760) POTASSIUM (BEAKER) (test 4.6 meq/L 3.5-5.1 vnaz=992) CHLORIDE (BEAKER) (test 97 meq/L 98-107 gpxl=993) CO2 (BEAKER) (test 18 meq/L 22-29 pwtx=473) BLOOD UREA NITROGEN 89 mg/dL 7-21 (BEAKER) (test mjdf=004) CREATININE (BEAKER) (test 4.86 mg/dL 0.57-1.25 yqcn=055) GLUCOSE RANDOM (BEAKER) 117 mg/dL 70-105 (test fckz=817) CALCIUM (BEAKER) (test 7.9 mg/dL 8.4-10.2 oudp=743) EGFR (BEAKER) (test 9 mL/min/1.73 sq m ESTIMATED GFR IS NOT zywi=7577) ACCURATE CREATININE CLEARANCE IN PREDICTING GLOMERULAR FILTRATION RATE. ESTIMATED GFR IS NOT APPLICABLE FOR DIALYSIS PATIENTS. [id number] 05:54:00 Test Item Value Reference Range Comments MAGNESIUM (BEAKER) (test uycd=737) 2.4 mg/dL 1.6-2.6 CBC (HEMOGRAM ONLY)2018-03-21 05:23:00 Test Item Value Reference Range Comments WHITE BLOOD CELL COUNT (BEAKER) (test fltz=027) 7.6 K/ L 3.5-10.5 RED BLOOD CELL COUNT (BEAKER) (test vbei=566) 3.13 M/ L 3.93-5.22 HEMOGLOBIN (BEAKER) (test fmmh=709) 10.1 GM/DL 11.2-15.7 HEMATOCRIT (BEAKER) (test cvmx=409) 32.1 % 34.1-44.9 MEAN CORPUSCULAR VOLUME (BEAKER) (test smxo=493) 102.6 fL 79.4-94.8 MEAN CORPUSCULAR HEMOGLOBIN (BEAKER) (test 32.3 pg 25.6-32.2 jukc=076) MEAN CORPUSCULAR HEMOGLOBIN CONC (BEAKER) (test 31.5 GM/DL 32.2-35.5 nbss=365) RED CELL DISTRIBUTION WIDTH (BEAKER) (test 24.0 % 11.7-14.4 dera=962) PLATELET COUNT (BEAKER) (test jrcp=524) 68 K/CU MM 150-450 MEAN PLATELET VOLUME (BEAKER) (test taqi=729) 14.4 fL 9.4-12.3 NUCLEATED RED BLOOD CELLS (BEAKER) (test 1 /100 WBC 0-0 bket=230) BASIC METABOLIC [id number] 00:47:00 Test Item Value Reference Range Comments SODIUM (BEAKER) (test 134 meq/L 136-145 vnnq=702) POTASSIUM (BEAKER) (test 4.7 meq/L 3.5-5.1 azmg=572) CHLORIDE (BEAKER) (test 97 meq/L 98-107 zknc=295) CO2 (BEAKER) (test 22 meq/L 22-29 yukh=207) BLOOD UREA NITROGEN 86 mg/dL 7-21 (BEAKER) (test vjek=105) CREATININE (BEAKER) (test 4.81 mg/dL 0.57-1.25 oksg=850) GLUCOSE RANDOM (BEAKER) 115 mg/dL 70-105 (test zxvz=311) CALCIUM (BEAKER) (test 7.9 mg/dL 8.4-10.2 zjun=102) EGFR (BEAKER) (test 9 mL/min/1.73 sq m ESTIMATED GFR IS NOT sjhb=8250) ACCURATE CREATININE CLEARANCE IN PREDICTING GLOMERULAR FILTRATION RATE. ESTIMATED GFR IS NOT APPLICABLE FOR DIALYSIS PATIENTS. HEPATITIS C [id number] 13:26:00 Test Item Value Reference Range Comments HEPATITIS C ANTIBODY (BEAKER) (test zmud=581) Nonreactive Nonreactive BASIC METABOLIC [id number] 13:08:00 Test Item Value Reference Range Comments SODIUM (BEAKER) (test 133 meq/L 136-145 ouvj=590) POTASSIUM (BEAKER) (test 5.0 meq/L 3.5-5.1 jmrl=783) CHLORIDE (BEAKER) (test 92 meq/L 98-107 ovql=365) CO2 (BEAKER) (test 21 meq/L 22-29 smjd=530) BLOOD UREA NITROGEN 123 mg/dL 7-21 (BEAKER) (test tiiz=147) CREATININE (BEAKER) (test 5.93 mg/dL 0.57-1.25 kdis=572) GLUCOSE RANDOM (BEAKER) 108 mg/dL 70-105 (test bsnn=066) CALCIUM (BEAKER) (test 8.1 mg/dL 8.4-10.2 vmik=323) EGFR (BEAKER) (test 7 mL/min/1.73 sq m ESTIMATED GFR IS NOT lsto=4320) ACCURATE CREATININE CLEARANCE IN PREDICTING GLOMERULAR FILTRATION RATE. ESTIMATED GFR IS NOT APPLICABLE FOR DIALYSIS PATIENTS. T4, [id number] 09:25:00 Test Item Value Reference Range Comments FREE T4 (BEAKER) (test akhy=992) 0.67 ng/dL 0.70-1.48 TSH/FREE T4 IF [id number] 09:04:00 Test Item Value Reference Range Comments THYROID STIMULATING HORMONE (BEAKER) (test 7.12 uIU/mL 0.35-4.94 jqez=422) BASIC METABOLIC [id number] 07:17:00 Test Item Value Reference Range Comments SODIUM (BEAKER) (test 132 meq/L 136-145 kjur=395) POTASSIUM (BEAKER) (test 4.6 meq/L 3.5-5.1 gdyc=133) CHLORIDE (BEAKER) (test 92 meq/L 98-107 lanj=743) CO2 (BEAKER) (test 22 meq/L 22-29 azxg=347) BLOOD UREA NITROGEN 119 mg/dL 7-21 (BEAKER) (test stcj=901) CREATININE (BEAKER) (test 5.68 mg/dL 0.57-1.25 useo=912) GLUCOSE RANDOM (BEAKER) 108 mg/dL 70-105 (test pvzd=592) CALCIUM (BEAKER) (test 8.0 mg/dL 8.4-10.2 seft=363) EGFR (BEAKER) (test 8 mL/min/1.73 sq m ESTIMATED GFR IS NOT quro=4499) ACCURATE CREATININE CLEARANCE IN PREDICTING GLOMERULAR FILTRATION RATE. ESTIMATED GFR IS NOT APPLICABLE FOR DIALYSIS PATIENTS. CBC (HEMOGRAM ONLY)2018-03-20 06:25:00 Test Item Value Reference Range Comments WHITE BLOOD CELL COUNT (BEAKER) (test hasb=881) 7.0 K/ L 3.5-10.5 RED BLOOD CELL COUNT (BEAKER) (test ayta=434) 2.95 M/ L 3.93-5.22 HEMOGLOBIN (BEAKER) (test hzom=277) 9.5 GM/DL 11.2-15.7 HEMATOCRIT (BEAKER) (test ehak=036) 29.3 % 34.1-44.9 MEAN CORPUSCULAR VOLUME (BEAKER) (test gqzy=205) 99.3 fL 79.4-94.8 MEAN CORPUSCULAR HEMOGLOBIN (BEAKER) (test 32.2 pg 25.6-32.2 ascx=315) MEAN CORPUSCULAR HEMOGLOBIN CONC (BEAKER) (test 32.4 GM/DL 32.2-35.5 pocf=304) RED CELL DISTRIBUTION WIDTH (BEAKER) (test 22.7 % 11.7-14.4 cmzu=509) PLATELET COUNT (BEAKER) (test dssh=990) 53 K/CU MM 150-450 NUCLEATED RED BLOOD CELLS (BEAKER) (test 1 /100 WBC 0-0 vqdq=811) BASIC METABOLIC [id number] 03:08:00 Test Item Value Reference Range Comments SODIUM (BEAKER) (test 130 meq/L 136-145 qfah=179) POTASSIUM (BEAKER) (test 4.9 meq/L 3.5-5.1 cqfm=025) CHLORIDE (BEAKER) (test 92 meq/L 98-107 hngs=492) CO2 (BEAKER) (test 21 meq/L 22-29 njqg=340) BLOOD UREA NITROGEN 117 mg/dL 7-21 (BEAKER) (test jrsb=894) CREATININE (BEAKER) (test 5.66 mg/dL 0.57-1.25 rlbc=878) GLUCOSE RANDOM (BEAKER) 124 mg/dL 70-105 (test urdn=668) CALCIUM (BEAKER) (test 7.9 mg/dL 8.4-10.2 volh=808) EGFR (BEAKER) (test 8 mL/min/1.73 sq m ESTIMATED GFR IS NOT vofy=2750) ACCURATE CREATININE CLEARANCE IN PREDICTING GLOMERULAR FILTRATION RATE. ESTIMATED GFR IS NOT APPLICABLE FOR DIALYSIS PATIENTS. BASIC METABOLIC [id number] 20:16:00 Test Item Value Reference Range Comments SODIUM (BEAKER) (test 131 meq/L 136-145 lvnh=105) POTASSIUM (BEAKER) (test 5.0 meq/L 3.5-5.1 oqmc=569) CHLORIDE (BEAKER) (test 92 meq/L 98-107 tghk=672) CO2 (BEAKER) (test 22 meq/L 22-29 bucq=031) BLOOD UREA NITROGEN 113 mg/dL 7-21 (BEAKER) (test jfff=165) CREATININE (BEAKER) (test 5.58 mg/dL 0.57-1.25 ktfy=085) GLUCOSE RANDOM (BEAKER) 112 mg/dL 70-105 (test fqzn=097) CALCIUM (BEAKER) (test 8.1 mg/dL 8.4-10.2 axfk=989) EGFR (BEAKER) (test 8 mL/min/1.73 sq m ESTIMATED GFR IS NOT zoir=3305) ACCURATE CREATININE CLEARANCE IN PREDICTING GLOMERULAR FILTRATION RATE. ESTIMATED GFR IS NOT APPLICABLE FOR DIALYSIS PATIENTS. PROTEIN ELECTROPHORESIS, [id number] 17:31:00 Test Item Value Reference Range Comments ALBUMIN FRACTION (BEAKER) 2.7 g/dL 3.5-5.5 (test aqru=378) ALPHA 1 FRACTION (BEAKER) 0.4 g/dL 0.2-0.4 (test ubil=424) ALPHA 2 FRACTION (BEAKER) 0.5 g/dL 0.5-0.9 (test hnrs=001) BETA FRACTION (BEAKER) (test 0.8 g/dL 0.6-1.1 dlap=511) GAMMA GLOBULIN FRACTION 2.2 g/dL 0.7-1.7 (BEAKER) (test bvcz=573) INTERPRETATION-119 ([facility]) Polyclonal elevation of gamma (test wpvv=2768) fraction, suggestive of chronic inflammatory response. Serum JUDSON pending to evaluate for presence of small underlying monoclonal protein in this region. [id number] Barbie Mccollum MD ([facility]) (test yqvx=2432) (electronic signature) PROTEIN TOTAL SERUM, SPEP 6.7 gm/dL 6.0-8.3 (BEAKER) (test crqd=0426) IMMUNOFIXATION ELECTROPHORESIS (JUDSON)2018-03-19 17:31:00 Test Item Value Reference Range Comments IMMUNOGLOBULIN G (IGG) (BEAKER) 2008 mg/dL 540-1822 (test hjfm=473) IMMUNOGLOBULIN A (IGA) (BEAKER) 37 mg/dL 63-484 (test dydq=933) IMMUNOGLOBULIN M (IGM) (BEAKER) 673 mg/dL 22-293 (test vjaz=508) SERUM JUDSON ID (BEAKER) (test No monoclonal proteins glle=6990) detected. Polyclonal elevation of gamma globulins. [id number] ([facility]) Barbie Mccollum MD (test qplh=3220) (electronic signature) ANTI-NUCLEAR ANTIBODY (SARAH)2018-03-19 10:18:00 Test Item Value Reference Range Comments ANTI-NUCLEAR ANTIBODY (SARAH) (BEAKER) (test Positive Negative aclc=130) Test performed by IFA method.SARAH TITER AND [id number] 10:18:00 Test Item Value Reference Range Comments SARAH TITER (BEAKER) (test oldm=9958) >=:2560 SARAH PATTERN (BEAKER) (test yocq=5876) Speckled FLOW [id number] 09:17:00Flow Cytometry Report Case: [id number] Authorizing Provider: Jordan Sultana MD Collected: 03/17/2018 1500 Ordering Location: [address] Med/Surg Received: 03/17/2018 6753 Pathologist: Doug Lee MD Specimen: Other BONE [...] findings in the bone marrow biopsy report([id number]) .[id number] wf with h/o right breast ca s/p surgery and chemo xrt in 2013 found to have recurrence with extensive metastases, started on carboplatin and gemcitabine in October 2017, transferred from [facility] for management of MAHA with REJI.BONE MARROW ASPIRATECD8, surface-[place], CD56, surface-Lambda, CD5 , CD19, CD10, CD3, CD20, CD4, CD45, CD14, CD13, CD33, CD117, CD34, cKappa, cLambda, CD38, KU816Ouxcpzta Viability: 92.4% Number of Events Acquired: [id number] The following populations are identified: Blasts: the [...] developed and their performance characteristics determined by [facility] They have not been cleared or approved by the U.S. Food and Drug Administration. The FDA has determined that such clearance or approval is not necessary. It should not be regarded as investigational or for research. This laboratory is certified under the Clinical Laboratory Improvement Amendments ix1295 ("CLIA") as qualified to perform high-complexity clinical testing.FLOW CYTOMETRY [id number] 09:16:00 Test Item Value Reference Range Comments FLOW CYTOMETRY RESULT POINTER (BEAKER) See Separate Report (test ekbn=2938) FLOW CYTOMETRY AP CASE # (BEAKER) (test [id number] wlwx=0285) BASIC METABOLIC [id number] 06:55:00 Test Item Value Reference Range Comments SODIUM (BEAKER) (test 131 meq/L 136-145 nzvu=133) POTASSIUM (BEAKER) (test 4.8 meq/L 3.5-5.1 gwgd=498) CHLORIDE (BEAKER) (test 93 meq/L 98-107 xuqe=721) CO2 (BEAKER) (test 20 meq/L 22-29 sith=868) BLOOD UREA NITROGEN 99 mg/dL 7-21 (BEAKER) (test euku=508) CREATININE (BEAKER) (test 4.97 mg/dL 0.57-1.25 csvw=452) GLUCOSE RANDOM (BEAKER) 100 mg/dL 70-105 (test orme=742) CALCIUM (BEAKER) (test 8.3 mg/dL 8.4-10.2 bspa=597) EGFR (BEAKER) (test 9 mL/min/1.73 sq m ESTIMATED GFR IS NOT ectl=4163) ACCURATE CREATININE CLEARANCE IN PREDICTING GLOMERULAR FILTRATION RATE. ESTIMATED GFR IS NOT APPLICABLE FOR DIALYSIS PATIENTS. [id number] 06:54:00 Test Item Value Reference Range Comments PHOSPHORUS (BEAKER) (test hovy=368) 7.0 mg/dL 2.3-4.7 PTH, [id number] 06:42:00 Test Item Value Reference Range Comments PARATHYROID HORMONE INTACT (BEAKER) (test 690.0 pg/mL 8.5-72.5 eobh=936) VANCOMYCIN LEVEL, [id number] 06:33:00 Test Item Value Reference Range Comments VANCOMYCIN RANDOM (BEAKER) (test wcso=653) 14.4 ug/mL Reference Range: No NormalsCBC (HEMOGRAM ONLY)2018-03-19 06:14:00 Test Item Value Reference Range Comments WHITE BLOOD CELL COUNT (BEAKER) (test wagq=516) 5.6 K/ L 3.5-10.5 RED BLOOD CELL COUNT (BEAKER) (test yzsw=305) 2.35 M/ L 3.93-5.22 HEMOGLOBIN (BEAKER) (test rgbd=279) 7.6 GM/DL 11.2-15.7 HEMATOCRIT (BEAKER) (test gvrm=224) 23.7 % 34.1-44.9 MEAN CORPUSCULAR VOLUME (BEAKER) (test nhtr=885) 100.9 fL 79.4-94.8 MEAN CORPUSCULAR HEMOGLOBIN (BEAKER) (test 32.3 pg 25.6-32.2 etly=540) MEAN CORPUSCULAR HEMOGLOBIN CONC (BEAKER) (test 32.1 GM/DL 32.2-35.5 nhec=748) RED CELL DISTRIBUTION WIDTH (BEAKER) (test 23.4 % 11.7-14.4 qwmb=611) PLATELET COUNT (BEAKER) (test pwbs=169) 61 K/CU MM 150-450 NUCLEATED RED BLOOD CELLS (BEAKER) (test 1 /100 WBC 0-0 quud=363) CBC W/PLT COUNT & AUTO [id number] 16:19:00 Test Item Value Reference Range Comments WHITE BLOOD CELL COUNT 5.0 K/ L 3.5-10.5 (BEAKER) (test niog=937) RED BLOOD CELL COUNT (BEAKER) 2.35 M/ L 3.93-5.22 (test nebe=196) HEMOGLOBIN (BEAKER) (test 7.6 GM/DL 11.2-15.7 hcxc=567) HEMATOCRIT (BEAKER) (test 23.2 % 34.1-44.9 baxp=790) MEAN CORPUSCULAR VOLUME 98.7 fL 79.4-94.8 (BEAKER) (test erma=742) MEAN CORPUSCULAR HEMOGLOBIN 32.3 pg 25.6-32.2 (BEAKER) (test xupw=767) MEAN CORPUSCULAR HEMOGLOBIN 32.8 GM/DL 32.2-35.5 CONC (BEAKER) (test mear=923) RED CELL DISTRIBUTION WIDTH 22.5 % 11.7-14.4 (BEAKER) (test fyts=384) PLATELET COUNT (BEAKER) (test 65 K/CU MM 150-450 vrbz=789) MEAN PLATELET VOLUME (BEAKER) fL 9.4-12.3 Unable to report due to (test idlr=350) abnormal Platelet population distribution. NUCLEATED RED BLOOD CELLS 1 /100 WBC 0-0 (BEAKER) (test jmrg=650) NEUTROPHILS RELATIVE PERCENT 77 % (BEAKER) (test edex=337) LYMPHOCYTES RELATIVE PERCENT 13 % (BEAKER) (test exvh=773) MONOCYTES RELATIVE PERCENT 9 % (BEAKER) (test tkac=618) EOSINOPHILS RELATIVE PERCENT 0 % (BEAKER) (test xkbq=343) BASOPHILS RELATIVE PERCENT 0 % (BEAKER) (test blyt=165) NEUTROPHILS ABSOLUTE COUNT 3.82 K/ L 1.56-6.13 (BEAKER) (test nbgn=119) LYMPHOCYTES ABSOLUTE COUNT 0.62 K/ L 1.18-3.74 (BEAKER) (test duoa=860) MONOCYTES ABSOLUTE COUNT 0.46 K/ L 0.24-0.36 (BEAKER) (test vysb=861) EOSINOPHILS ABSOLUTE COUNT 0.01 K/ L 0.04-0.36 (BEAKER) (test tjnd=892) BASOPHILS ABSOLUTE COUNT 0.01 K/ L 0.01-0.08 (BEAKER) (test uelz=952) IMMATURE GRANULOCYTES-RELATIVE 1 % 0-1 PERCENT (BEAKER) (test ijdh=7961) BASIC METABOLIC [id number] 16:10:00 Test Item Value Reference Range Comments SODIUM (BEAKER) (test 129 meq/L 136-145 xbko=749) POTASSIUM (BEAKER) (test 4.8 meq/L 3.5-5.1 ktgn=136) CHLORIDE (BEAKER) (test 94 meq/L 98-107 bnjm=983) CO2 (BEAKER) (test 19 meq/L 22-29 ytxa=421) BLOOD UREA NITROGEN 88 mg/dL 7-21 (BEAKER) (test wdij=402) CREATININE (BEAKER) (test 4.42 mg/dL 0.57-1.25 nfje=997) GLUCOSE RANDOM (BEAKER) 111 mg/dL 70-105 (test wffh=477) CALCIUM (BEAKER) (test 8.4 mg/dL 8.4-10.2 jabj=971) EGFR (BEAKER) (test 10 mL/min/1.73 sq m ESTIMATED GFR IS NOT tcqm=1222) ACCURATE CREATININE CLEARANCE IN PREDICTING GLOMERULAR FILTRATION RATE. ESTIMATED GFR IS NOT APPLICABLE FOR DIALYSIS PATIENTS. [id number] 11:52:00 Test Item Value Reference Range Comments HAPTOGLOBIN (BEAKER) (test dmvv=060) 34 mg/dL 14-258 PERIPHERAL BLOOD SMEAR - HOLD [id number] 10:25:00 Test Item Value Reference Range Comments PERIPHERAL SMEAR SAVE (BEAKER) (test dnlf=7831) saved CALCIUM, [id number] 09:40:00 Test Item Value Reference Range Comments CALCIUM IONIZED (BEAKER) (test sdiz=077) 0.94 mmol/L 1.12-1.27 PH, BLOOD (BEAKER) (test vihc=8766) 7.48 LACTATE DEHYDROGENASE (LDH)2018-03-18 09:27:00 Test Item Value Reference Range Comments LACTATE DEHYDROGENASE (BEAKER) (test lhoc=012) 599 U/L 125-220 CBC (HEMOGRAM ONLY)2018-03-18 09:27:00 Test Item Value Reference Range Comments WHITE BLOOD CELL COUNT (BEAKER) (test fibh=410) 4.2 K/ L 3.5-10.5 RED BLOOD CELL COUNT (BEAKER) (test qrra=599) 2.34 M/ L 3.93-5.22 HEMOGLOBIN (BEAKER) (test vvja=907) 7.4 GM/DL 11.2-15.7 HEMATOCRIT (BEAKER) (test sxfl=040) 22.8 % 34.1-44.9 MEAN CORPUSCULAR VOLUME (BEAKER) (test orng=948) 97.4 fL 79.4-94.8 MEAN CORPUSCULAR HEMOGLOBIN (BEAKER) (test 31.6 pg 25.6-32.2 ktlf=048) MEAN CORPUSCULAR HEMOGLOBIN CONC (BEAKER) (test 32.5 GM/DL 32.2-35.5 ohbz=338) RED CELL DISTRIBUTION WIDTH (BEAKER) (test 22.5 % 11.7-14.4 zysr=704) PLATELET COUNT (BEAKER) (test tcfc=814) 39 K/CU MM 150-450 NUCLEATED RED BLOOD CELLS (BEAKER) (test 1 /100 WBC 0-0 dbxt=377) RETICULOCYTE [id number] 09:24:00 Test Item Value Reference Range Comments RETICULOCYTE COUNT PCT (BEAKER) (test uzjz=304) 6.9 % 0.5-1.7 [id number] 09:16:00 Test Item Value Reference Range Comments D-DIMER QUANTITATIVE (BEAKER) (test tlxf=716) 3.18 MG/L FEU <0.50 Intended Use: The D-Dimer Assay can be used to aid in the diagnosis of Deep Vein Thrombosis (DVT) and Pulmonary Embolism Disease (PED).In patients with low pre-test probability, various studies concerning STA Liatest D-dimer test have reported that with a cutoff value of 0.50 MG/L FEU, the Negative Predictive Value (NPV) regarding the exclusion of thrombosis is within 95-100% range.[id number] 09:14:00 Test Item Value Reference Range Comments PARTIAL THROMBOPLASTIN TIME (BEAKER) (test 38.9 seconds 22.5-36.0 uehj=482) PROTHROMBIN TIME/[id number] 09:13:00 Test Item Value Reference Range Comments PROTIME (BEAKER) (test hpit=738) 15.3 seconds 11.7-14.7 INR (BEAKER) (test toim=332) 1.2 <=5.9 RECOMMENDED COUMADIN/WARFARIN INR THERAPY RANGESSTANDARD DOSE: 2.0 - 3.0 Includes: PROPHYLAXIS forvenous thrombosis, systemic embolization; TREATMENT for venous thrombosis and/or pulmonary embolus.HIGH RISK: Target INR is 2.5-3.5 for patients with mechanical heart valves.BASIC METABOLIC [id number] 08:52: 00 Test Item Value Reference Range Comments SODIUM (BEAKER) (test 135 meq/L 136-145 gful=013) POTASSIUM (BEAKER) (test 4.9 meq/L 3.5-5.1 mnhu=353) CHLORIDE (BEAKER) (test 96 meq/L 98-107 cloc=166) CO2 (BEAKER) (test 23 meq/L 22-29 josq=450) BLOOD UREA NITROGEN 77 mg/dL 7-21 (BEAKER) (test msah=941) CREATININE (BEAKER) (test 4.04 mg/dL 0.57-1.25 xhyy=746) GLUCOSE RANDOM (BEAKER) 137 mg/dL 70-105 (test rfgx=545) CALCIUM (BEAKER) (test 8.8 mg/dL 8.4-10.2 hvzu=771) EGFR (BEAKER) (test 12 mL/min/1.73 sq m ESTIMATED GFR IS NOT tfuy=3265) ACCURATE CREATININE CLEARANCE IN PREDICTING GLOMERULAR FILTRATION RATE. ESTIMATED GFR IS NOT APPLICABLE FOR DIALYSIS PATIENTS. CALCIUM, [id number] 08:21:00 Test Item Value Reference Range Comments CALCIUM IONIZED (BEAKER) (test qkkd=050) 0.72 mmol/L 1.12-1.27 PH, BLOOD (BEAKER) (test fniy=2502) 7.46 OSMOLALITY, [id number] 07:36:00 Test Item Value Reference Range Comments OSMOLALITY URINE (BEAKER) (test djhm=414) 316 mOsm/kg 40-1400 OSMOLALITY, [id number] 07:34:00 Test Item Value Reference Range Comments OSMOLALITY, SERUM (BEAKER) (test xyqt=817) 303 mOsm/kg 275-295 CREATININE, RANDOM [id number] 07:26:00 Test Item Value Reference Range Comments CREATININE URINE (BEAKER) (test ryhd=869) 36.3 mg/dL Reference Range: No NormalsPOTASSIUM, RANDOM [id number] 07:26:00 Test Item Value Reference Range Comments POTASSIUM URINE (BEAKER) (test oaur=145) 41.5 meq/L Reference Range: No NormalsSODIUM, RANDOM [id number] 07:26:00 Test Item Value Reference Range Comments SODIUM URINE (BEAKER) (test zutt=754) 57 meq/L Reference Range: No NormalsUREA NITROGEN, RANDOM [id number] 07:26:00 Test Item Value Reference Range Comments UREA NITROGEN URINE (BEAKER) (test efoy=764) 298 mg/dL Reference Range: No NormalsPERIPHERAL BLOOD SMEAR - HOLD [id number] 07:20:00 Test Item Value Reference Range Comments PERIPHERAL SMEAR SAVE (BEAKER) (test jjqp=4740) saved BASIC METABOLIC [id number] 06:08:00 Test Item Value Reference Range Comments SODIUM (BEAKER) (test 128 meq/L 136-145 qocb=918) POTASSIUM (BEAKER) (test 4.6 meq/L 3.5-5.1 adsn=076) CHLORIDE (BEAKER) (test 94 meq/L 98-107 nlfk=356) CO2 (BEAKER) (test 20 meq/L 22-29 sdet=462) BLOOD UREA NITROGEN 84 mg/dL 7-21 (BEAKER) (test roag=517) CREATININE (BEAKER) (test 4.34 mg/dL 0.57-1.25 rutt=772) GLUCOSE RANDOM (BEAKER) 120 mg/dL 70-105 (test kzwg=722) CALCIUM (BEAKER) (test 6.8 mg/dL 8.4-10.2 bbwr=127) EGFR (BEAKER) (test 11 mL/min/1.73 sq m ESTIMATED GFR IS NOT lylb=4966) ACCURATE CREATININE CLEARANCE IN PREDICTING GLOMERULAR FILTRATION RATE. ESTIMATED GFR IS NOT APPLICABLE FOR DIALYSIS PATIENTS. VANCOMYCIN LEVEL, [id number] 06:05:00 Test Item Value Reference Range Comments VANCOMYCIN RANDOM (BEAKER) (test tzjm=741) < ug/mL Reference Range: No NormalsCALCIUM, [id number] 04:20:00 Test Item Value Reference Range Comments CALCIUM IONIZED (BEAKER) (test yyae=232) 0.81 mmol/L 1.12-1.27 PH, BLOOD (BEAKER) (test fsxx=9401) 7.40 Range 1.12 - [id number] 03:54:00 Test Item Value Reference Range Comments D-DIMER QUANTITATIVE (BEAKER) (test yyab=645) 4.50 MG/L FEU <0.50 Intended Use: The D-Dimer Assay can be used to aid in the diagnosis of Deep Vein Thrombosis (DVT) and Pulmonary Embolism Disease (PED).In patients with low pre-test probability, various studies concerning STA Liatest D-dimer test have reported that with a cutoff value of 0.50 MG/L FEU, the Negative Predictive Value (NPV) regarding the exclusion of thrombosis is within 95-100% range.[id number] 02:58:00 Test Item Value Reference Range Comments PROCALCITONIN (BEAKER) (test cygs=8352) 8.65 ng/mL <0.05 SEPSIS RISK (ng/mL)Low: 0.05-0.50Intermediate: 0.51-2.00High: & gt;=2.01TROPONIN [id number] 02:29:00 Test Item Value Reference Range Comments TROPONIN I (BEAKER) (test ltbe=834) 0.77 ng/mL 0.00-0.03 Troponin I (TnI) levels [...] acute neurological disease, and persistent tachyarrhythmia.COMPREHENSIVE METABOLIC [id number] 02:11:00 Test Item Value Reference Range Comments TOTAL PROTEIN (BEAKER) 6.8 gm/dL 6.0-8.3 (test szhq=984) ALBUMIN (BEAKER) (test 2.9 g/dL 3.5-5.0 kaoa=2331) ALKALINE PHOSPHATASE 100 U/L 40-150 (BEAKER) (test wofn=664) BILIRUBIN TOTAL (BEAKER) 1.4 mg/dL 0.2-1.2 (test cvhw=969) SODIUM (BEAKER) (test 127 meq/L 136-145 ghxg=860) POTASSIUM (BEAKER) (test 5.0 meq/L 3.5-5.1 kaph=254) CHLORIDE (BEAKER) (test 101 meq/L 98-107 hkme=262) CO2 (BEAKER) (test 15 meq/L 22-29 ajnw=734) BLOOD UREA NITROGEN 87 mg/dL 7-21 (BEAKER) (test dxlu=469) CREATININE (BEAKER) (test 4.62 mg/dL 0.57-1.25 sjrt=168) GLUCOSE RANDOM (BEAKER) 128 mg/dL 70-105 (test zovf=912) CALCIUM (BEAKER) (test 6.9 mg/dL 8.4-10.2 xurg=993) AST (SGOT) (BEAKER) (test 79 U/L 5-34 iede=866) ALT (SGPT) (BEAKER) (test 45 U/L 6-55 fbyr=183) EGFR (BEAKER) (test 10 mL/min/1.73 sq m ESTIMATED GFR IS NOT fpsv=7405) ACCURATE CREATININE CLEARANCE IN PREDICTING GLOMERULAR FILTRATION RATE. ESTIMATED GFR IS NOT APPLICABLE FOR DIALYSIS PATIENTS. RAD, CHEST, 1 VIEW, NON [id number] 01:44:00Reason for exam:-> HEMODIALYSIS CATHTER PLACEMENTShould this [...] Vázquez Verified Date/Time: 03/18/2018 01:44:10 Reading Location: [address] Body Reading Room [id number] 01:37:00 Test Item Value Reference Range Comments FIBRINOGEN LEVEL (BEAKER) (test wisk=574) 466 mg/dl 225-434 [id number] 01:37:00 Test Item Value Reference Range Comments PARTIAL THROMBOPLASTIN TIME (BEAKER) (test 33.6 seconds 22.5-36.0 eowz=539) PROTHROMBIN TIME/[id number] 01:36:00 Test Item Value Reference Range Comments PROTIME (BEAKER) (test lzjx=233) 17.0 seconds 11.7-14.7 INR (BEAKER) (test nlzg=201) 1.4 <=5.9 RECOMMENDED COUMADIN/WARFARIN INR THERAPY RANGESSTANDARD DOSE: 2.0 - 3.0 Includes: PROPHYLAXIS forvenous thrombosis, systemic embolization; TREATMENT for venous thrombosis and/or pulmonary embolus.HIGH RISK: Target INR is 2.5-3.5 for patients with mechanical heart valves.LACTIC ACID, VENOUS, WHOLE [id number] 01:26:00 Test Item Value Reference Range Comments LACTATE BLOOD VENOUS (2) (BEAKER) (test 1.7 mmol/L 0.5-2.2 vahf=1875) Effective 11/28/2015: Units/Reference Range ChangeNew: 0.5-2.2 mmol/L Previous: 5 -20 mg/dLCBC (HEMOGRAM ONLY)2018-03-18 01:16:00 Test Item Value Reference Range Comments WHITE BLOOD CELL COUNT (BEAKER) (test mhxs=452) 4.3 K/ L 3.5-10.5 RED BLOOD CELL COUNT (BEAKER) (test ntwm=078) 2.67 M/ L 3.93-5.22 HEMOGLOBIN (BEAKER) (test ytwr=672) 8.6 GM/DL 11.2-15.7 HEMATOCRIT (BEAKER) (test kfxj=855) 25.6 % 34.1-44.9 MEAN CORPUSCULAR VOLUME (BEAKER) (test dflo=708) 95.9 fL 79.4-94.8 MEAN CORPUSCULAR HEMOGLOBIN (BEAKER) (test 32.2 pg 25.6-32.2 zuwj=870) MEAN CORPUSCULAR HEMOGLOBIN CONC (BEAKER) (test 33.6 GM/DL 32.2-35.5 wfhc=885) RED CELL DISTRIBUTION WIDTH (BEAKER) (test 21.9 % 11.7-14.4 bqae=992) PLATELET COUNT (BEAKER) (test pihk=428) 39 K/CU MM 150-450 NUCLEATED RED BLOOD CELLS (BEAKER) (test 1 /100 WBC 0-0 ursu=166) CT, BIOPSY, BONE [id number] 17:06:00Reason for exam:->pancytopenia in setting of metastatic breast cancer, chemotherapy held almost 2monthsFINAL REPORT PROCEDURE: CT-guided bone marrow biopsy DOSE REDUCTION: The examination was performed according to departmental dose- optimization program which includes automated exposure control, adjustment of the mA and/or kV according to patient size and/or use of iterative reconstruction technique. Clinical History: Pancytopenia Site Administrator: Marce Conscious sedation: Versed 1 mg,fentanyl 50 [...] was immediately removed and provided to the process safety engineering technologist. Subsequently a core biopsy was obtained using the outer sheath. The needle and sheath were removed.Postprocedure CT evaluation of the area revealed no significant hematoma. Patient tolerated the procedure well and remained hemodynamically stable throughout. IMPRESSION: Successful and uncomplicated CT -guided bone marrow aspiration and core biopsy. Signed: Jordan Sultana MDReport Verified Date/Time: 03/17/2018 17:06:03 Reading Location: [facility] Radiology Reading Room 05: 06 PMBONE MARROW PROCESS ([facility]2018-03-17 15:16:00 Test Item Value Reference Range Comments ANATOMIC CASE# (ADDY) (test sgfd=5321) [id number] ORDERED BY DOCTORJoseph CACERES) (test nbat=1556) jordan Sultana m.d. PERFORMED BY DANIKA CACERES) (test Jordan Sultana m.d. dsci=4990) CLOT RECEIVED? (BETON) (test afco=2888) Yes BIOPSY RECEIVED? (BEAKER) (test shnp=3944) Yes CULTURE RECEIVED? (BEAKER) (test dxcu=4090) No FLOW RECEIVED? (BETON) (test awud=3917) Yes CYTOGENICS? (BEAKER) (test swmy=3685) Yes MOLECULAR GENETICS? (BEAKER) (test No sahu=0307) RAD, CHEST, 2 [id number] 13:39:00Reason for exam:->sobFINAL REPORT Comparison: 15/08/2017 TECHNIQUE: 2 views of the chest FINDINGS: There is mild vascular congestion. There are small pleural effusions. Cardiac silhouette is enlarged.Left internal jugular chest port noted with tip at the cavoatrial junction. Surgical clips project over the right chest wall. Signed: Jordan Sultana MDReport Verified Date/Time: 03/17/2018 13:39:16 Reading Location: [facility] Radiology Reading Room [id number] 13:20:00 Test Item Value Reference Range Comments HAPTOGLOBIN (BEAKER) (test okhk=766) < mg/dL 14-258 COMPLEMENT COMPONENT [id number] 12:57:00 Test Item Value Reference Range Comments C4 COMPLEMENT (BEAKER) (test rigm=040) 22 mg/dL 15-57 COMPLEMENT COMPONENT [id number] 12:57:00 Test Item Value Reference Range Comments C3 COMPLEMENT (BEAKER) (test gjdm=395) 94 mg/dL 82-193 PERIPHERAL BLOOD SMEAR - PATHOLOGIST [id number] 09:47:00 Test Item Value Reference Range Comments PERIPHERAL SMR REVIEW Normochromic normocytic anemia (BEAKER) (test qlxu=3375) with rare schistocytes seen (1-2/ HPF). WBCs normal in number and morphology. Thrombocytopenia with a few large forms. [id number] Michelle Yu M.D. (electronic (BEAKER) (test avlr=9836) signature) TROPONIN [id number] 07:07:00 Test Item Value Reference Range Comments TROPONIN I (BEAKER) (test felg=277) 1.56 ng/mL 0.00-0.15 Troponin I (TnI) levels [...] acute neurological disease, and persistent tachyarrhythmia.BASIC METABOLIC [id number] 07:06:00 Test Item Value Reference Range Comments SODIUM (BEAKER) (test 131 meq/L 135-148 gvrd=682) POTASSIUM (BEAKER) (test 5.8 meq/L 3.6-5.5 boex=434) CHLORIDE (BEAKER) (test 107 meq/L 98-106 whlm=079) CO2 (BEAKER) (test 12 meq/L 20-29 fllr=541) BLOOD UREA NITROGEN 74 mg/dL 10-26 (BEAKER) (test ypiy=673) CREATININE (BEAKER) (test 3.95 mg/dL 0.50-1.20 bdvs=473) GLUCOSE RANDOM (BEAKER) 133 mg/dL 70-110 (test zfvm=143) CALCIUM (BEAKER) (test 7.6 mg/dL 8.5-10.5 weiv=360) EGFR (BEAKER) (test 12 mL/min/1.73 sq m ESTIMATED GFR IS NOT wdfm=1249) ACCURATE CREATININE CLEARANCE IN PREDICTING GLOMERULAR FILTRATION RATE. ESTIMATED GFR IS NOT APPLICABLE FOR DIALYSIS PATIENTS. [id number] 06:45:00 Test Item Value Reference Range Comments MAGNESIUM (BEAKER) (test skgc=126) 2.0 mg/dL 1.5-3.0 CBC W/PLT COUNT & AUTO [id number] 06:35:00 Test Item Value Reference Range Comments WHITE BLOOD CELL COUNT (BEAKER) (test muxh=301) 8.7 K/ L 4.0-10.0 RED BLOOD CELL COUNT (BEAKER) (test dseh=824) 3.26 M/ L 4.00-5.00 HEMOGLOBIN (BEAKER) (test spuv=252) 10.2 GM/DL 12.0-15.5 HEMATOCRIT (BEAKER) (test bugx=078) 31.9 % 36.0-46.0 MEAN CORPUSCULAR VOLUME (BEAKER) (test jwot=551) 97.9 fL 82.0-99.0 MEAN CORPUSCULAR HEMOGLOBIN (BEAKER) (test 31.3 pg 27.0-33.0 iovw=084) MEAN CORPUSCULAR HEMOGLOBIN CONC (BEAKER) (test 32.0 GM/DL 32.0-36.0 amqq=337) RED CELL DISTRIBUTION WIDTH (BEAKER) (test 20.8 % 12.0-15.0 vsvn=681) PLATELET COUNT (BEAKER) (test edej=955) 62 K/CU MM 150-430 MEAN PLATELET VOLUME (BEAKER) (test hdyc=484) 10.5 fL 6.0-11.5 NUCLEATED RED BLOOD CELLS (BEAKER) (test 0 /100 WBC 0-0 krsi=933) NEUTROPHILS RELATIVE PERCENT (BEAKER) (test 80 % sihg=823) LYMPHOCYTES RELATIVE PERCENT (BEAKER) (test 11 % zaot=083) MONOCYTES RELATIVE PERCENT (BEAKER) (test 8 % wdza=250) EOSINOPHILS RELATIVE PERCENT (BEAKER) (test 0 % ygat=659) BASOPHILS RELATIVE PERCENT (BEAKER) (test 0 % uuqc=027) NEUTROPHILS ABSOLUTE COUNT (BEAKER) (test 6.95 K/ L 1.80-8.00 lvtr=423) LYMPHOCYTES ABSOLUTE COUNT (BEAKER) (test 0.92 K/ L 1.48-4.50 bbjp=502) MONOCYTES ABSOLUTE COUNT (BEAKER) (test xzzs=987) 0.72 K/ L 0.00-1.30 EOSINOPHILS ABSOLUTE COUNT (BEAKER) (test 0.00 K/ L 0.00-0.50 atxg=058) BASOPHILS ABSOLUTE COUNT (BEAKER) (test sjlo=672) 0.01 K/ L 0.00-0.20 IMMATURE GRANULOCYTES-RELATIVE PERCENT (BEAKER) 1 % 0-0 (test gitq=4247) BLOOD GAS, [id number] 05:27:00 Test Item Value Reference Range Comments PH ARTERIAL (BEAKER) (test rylk=509) 7.40 7.35-7.45 PCO2 ARTERIAL (BEAKER) (test xxca=808) 18 mmHg 35-45 PO2 ARTERIAL (BEAKER) (test mhrv=614) 72 mmHg 80-90 O2 SATURATION ARTERIAL (BEAKER) (test hffp=788) 94.7 % 96.0-97.0 HCO3 ARTERIAL (BEAKER) (test gwwj=558) 11 mmol/L 21-29 BASE EXCESS ARTERIAL (BEAKER) (test brdg=842) -12.0 mmol/L -2.0-3.0 PATIENT TEMPERATURE (BEAKER) (test bify=4632) 37.5 C FIO2 (BEAKER) (test llhc=1626) 28.0 % PROTEIN, RANDOM [id number] 00:47:00 Test Item Value Reference Range Comments PROTEIN, URINE (BEAKER) (test ovwj=3449) 432 mg/dL 0-14 CREATININE, RANDOM [id number] 00:03:00 Test Item Value Reference Range Comments CREATININE URINE (BEAKER) (test svyh=837) 68.6 mg/dL Reference Range: No NormalsURINALYSIS W/ [id number] 23:56:00 Test Item Value Reference Range Comments COLOR (BEAKER) (test xpav=447) Yellow CLARITY (BEAKER) (test vjsq=047) Clear SPECIFIC GRAVITY UA (BEAKER) (test croo=945) 1.020 1.001-1.035 PH UA (BEAKER) (test slsk=909) 5.5 5.0-8.0 PROTEIN UA (BEAKER) (test ndum=681) >=300 mg/dL Negative GLUCOSE UA (BEAKER) (test hdju=489) Negative Negative KETONES UA (BEAKER) (test alzy=631) Negative Negative BILIRUBIN UA (BEAKER) (test boaj=990) Negative Negative BLOOD UA (BEAKER) (test qaxc=643) Large Negative NITRITE UA (BEAKER) (test uqxh=559) Negative Negative LEUKOCYTE ESTERASE UA (BEAKER) (test dfts=987) Trace Negative UROBILINOGEN UA (BEAKER) (test cscw=071) 0.2 mg/dL 0.2-1.0 BACTERIA (BEAKER) (test pyut=974) Occasional AMORPHOUS CRYSTALS (BEAKER) (test xinn=7785) Few RBC UA-MANUAL (BEAKER) (test xkep=8876) 5-10 /HPF WBC UA-MANUAL (BEAKER) (test dxvm=8260) <5 /HPF SQUAMOUS EPITHELIAL MANUAL (BEAKER) (test 5-10 /HPF tual=0991) GRANULAR CASTS MANUAL (BEAKER) (test aukw=4951) Few /LPF SOURCE(BEAKER) (test efby=9923) KETONE, [id number] 22:28:00 Test Item Value Reference Range Comments KETONES, BLOOD (BEAKER) (test ndrl=8168) 0.3 mmol/L <0.4 BILIRUBIN, TOTAL AND [id number] 22:17:00 Test Item Value Reference Range Comments BILIRUBIN TOTAL (BEAKER) (test zjzc=882) 2.1 mg/dL 0.1-1.2 BILIRUBIN DIRECT (BEAKER) (test dtnw=741) 1.1 mg/dL 0.0-0.4 LACTATE DEHYDROGENASE (LDH)[id number] 22:16:00 Test Item Value Reference Range Comments LACTATE DEHYDROGENASE (BEAKER) (test kgcj=726) 1540 U/L 107-206 TROPONIN [id number] 19:44:00 Test Item Value Reference Range Comments TROPONIN I (BEAKER) (test yuge=206) 0.24 ng/mL 0.00-0.15 Troponin I (TnI) levels [...] acidosis, acute neurological disease, and persistent tachyarrhythmia.TROPONIN [id number] 10:58:00 Test Item Value Reference Range Comments TROPONIN I (BEAKER) (test dqjj=687) 0.17 ng/mL 0.00-0.15 Troponin I (TnI) levels [...] and persistent tachyarrhythmia.CREATINE KINASE (CK), TOTAL AND [id number] 10:57:00 Test Item Value Reference Range Comments CREATINE KINASE TOTAL (BEAKER) (test jjpt=288) 125 U/L 25-235 CREATINE KINASE-MB (BEAKER) (test cqsr=410) 0.9 ng/mL 0.0-4.9 CREATINE KINASE-MB INDEX (BEAKER) (test ludq=648) 0.7 % CK-MB Reference Range:<5 Normal5-10 Borderline>10 AbnormalCOMPREHENSIVE METABOLIC [id number] 10:53:00 Test Item Value Reference Range Comments TOTAL PROTEIN (BEAKER) 7.7 gm/dL 6.0-8.5 (test rjkk=757) ALBUMIN (BEAKER) (test 3.4 g/dL 3.5-5.0 eqio=3389) ALKALINE PHOSPHATASE 45 U/L 30-115 (BEAKER) (test tedc=164) BILIRUBIN TOTAL (BEAKER) 1.4 mg/dL 0.1-1.2 (test ghwo=718) SODIUM (BEAKER) (test 132 meq/L 135-148 mchz=126) POTASSIUM (BEAKER) (test 4.8 meq/L 3.6-5.5 fzfe=028) CHLORIDE (BEAKER) (test 106 meq/L 98-106 bjbe=058) CO2 (BEAKER) (test 13 meq/L 20-29 vqac=509) BLOOD UREA NITROGEN 63 mg/dL 10-26 (BEAKER) (test yond=043) CREATININE (BEAKER) (test 3.73 mg/dL 0.50-1.20 quxs=341) GLUCOSE RANDOM (BEAKER) 94 mg/dL 70-110 (test yilb=613) CALCIUM (BEAKER) (test 8.2 mg/dL 8.5-10.5 pqsu=023) AST (SGOT) (BEAKER) (test 59 U/L 5-40 yfpf=620) ALT (SGPT) (BEAKER) (test 23 U/L 5-50 boxk=041) EGFR (BEAKER) (test 13 mL/min/1.73 sq m ESTIMATED GFR IS NOT mlbn=5231) ACCURATE CREATININE CLEARANCE IN PREDICTING GLOMERULAR FILTRATION RATE. ESTIMATED GFR IS NOT APPLICABLE FOR DIALYSIS PATIENTS. URINALYSIS W/ [id number] 10:49:00 Test Item Value Reference Range Comments COLOR (BEAKER) (test nsxf=716) Yellow CLARITY (BEAKER) (test bxyi=940) Clear SPECIFIC GRAVITY UA (BEAKER) (test clsa=483) 1.020 1.001-1.035 PH UA (BEAKER) (test xxlj=466) 5.5 5.0-8.0 PROTEIN UA (BEAKER) (test opyv=549) >=300 mg/dL Negative GLUCOSE UA (BEAKER) (test sfxm=739) Negative Negative KETONES UA (BEAKER) (test afyt=795) Negative Negative BILIRUBIN UA (BEAKER) (test eoaq=074) Negative Negative BLOOD UA (BEAKER) (test aayt=783) Large Negative NITRITE UA (BEAKER) (test sqws=419) Negative Negative LEUKOCYTE ESTERASE UA (BEAKER) (test kdya=982) Negative Negative UROBILINOGEN UA (BEAKER) (test wkxt=066) 0.2 mg/dL 0.2-1.0 BACTERIA (BEAKER) (test jcnu=713) Few AMORPHOUS CRYSTALS (BEAKER) (test tftr=0586) Moderate RBC UA-MANUAL (BEAKER) (test lkjc=5045) 5-10 /HPF WBC UA-MANUAL (BEAKER) (test cfsx=5323) <5 /HPF SQUAMOUS EPITHELIAL MANUAL (BEAKER) (test 5-10 /HPF xzxq=1265) WAXY CASTS MANUAL (BEAKER) (test mcfq=0661) 5-10 /LPF SOURCE(BEAKER) (test vtzy=6260) CBC W/PLT COUNT & AUTO [id number] 10:49:00 Test Item Value Reference Range Comments WHITE BLOOD CELL COUNT (BEAKER) (test atat=152) 4.0 K/ L 4.0-10.0 RED BLOOD CELL COUNT (BEAKER) (test stgk=498) 1.64 M/ L 4.00-5.00 HEMOGLOBIN (BEAKER) (test ocry=563) 5.5 GM/DL 12.0-15.5 HEMATOCRIT (BEAKER) (test qjon=899) 17.6 % 36.0-46.0 MEAN CORPUSCULAR VOLUME (BEAKER) (test vsnl=653) 107.3 fL 82.0-99.0 MEAN CORPUSCULAR HEMOGLOBIN (BEAKER) (test 33.5 pg 27.0-33.0 yeoz=562) MEAN CORPUSCULAR HEMOGLOBIN CONC (BEAKER) (test 31.3 GM/DL 32.0-36.0 evov=017) RED CELL DISTRIBUTION WIDTH (BEAKER) (test 23.5 % 12.0-15.0 rckv=388) PLATELET COUNT (BEAKER) (test wkcx=500) 66 K/CU MM 150-430 MEAN PLATELET VOLUME (BEAKER) (test okfz=382) 11.3 fL 6.0-11.5 NUCLEATED RED BLOOD CELLS (BEAKER) (test 0 /100 WBC 0-0 sjca=536) NEUTROPHILS RELATIVE PERCENT (BEAKER) (test 81 % hyoy=252) LYMPHOCYTES RELATIVE PERCENT (BEAKER) (test 9 % yyim=619) MONOCYTES RELATIVE PERCENT (BEAKER) (test 9 % jhqn=731) EOSINOPHILS RELATIVE PERCENT (BEAKER) (test 0 % jerg=486) BASOPHILS RELATIVE PERCENT (BEAKER) (test 0 % rvab=285) NEUTROPHILS ABSOLUTE COUNT (BEAKER) (test 3.21 K/ L 1.80-8.00 lryc=136) LYMPHOCYTES ABSOLUTE COUNT (BEAKER) (test 0.36 K/ L 1.48-4.50 cvij=794) MONOCYTES ABSOLUTE COUNT (BEAKER) (test bxyf=981) 0.34 K/ L 0.00-1.30 EOSINOPHILS ABSOLUTE COUNT (BEAKER) (test 0.01 K/ L 0.00-0.50 dtyx=840) BASOPHILS ABSOLUTE COUNT (BEAKER) (test qere=008) 0.00 K/ L 0.00-0.20 IMMATURE GRANULOCYTES-RELATIVE PERCENT (BEAKER) 1 % 0-0 (test xuhs=3694) (MANUAL DIFFERENTIAL)2018-03-16 10:49:00 Test Item Value Reference Range Comments TOTAL COUNTED (BEAKER) (test ayhq=9835) WBC MORPHOLOGY (BEAKER) (test bcac=940) Normal PLT MORPHOLOGY (BEAKER) (test mski=870) Normal SCHISTOCYTES (BEAKER) (test rrdj=591) 1+ few ANISOCYTOSIS (BEAKER) (test caal=162) 1+ few MACROCYTES (BEAKER) (test abbq=576) 1+ few MICROCYTES (BEAKER) (test acav=373) 1+ few POIKILOCYTES (BEAKER) (test imtt=119) 1+ few POLYCHROMATOPHILLIC RBCS(BEAKER) (test iktn=951) 1+ few [id number] 10:46:00 Test Item Value Reference Range Comments PROTIME (BEAKER) (test vtym=820) 11.1 sec 9.3-12.0 INR (BEAKER) (test uqpq=822) 1.0 <=5.9 PARTIAL THROMBOPLASTIN TIME (BEAKER) (test 31.0 sec 23.0-35.0 iewa=680) RECOMMENDED COUMADIN/WARFARIN INR THERAPY RANGESSTANDARD DOSE: 2.0 - 3.0 Includes: PROPHYLAXIS forvenous thrombosis, systemic embolization; TREATMENT for venous thrombosis and/or pulmonary embolus.HIGH RISK: Target INR is 2.5-3.5 for patients with mechanical heart valves.Final Information (Auto Output)Final Information (Auto Output)Final Information (Auto Output)LACTIC ACID, VENOUS, WHOLE [id number] 10:45:00 Test Item Value Reference Range Comments LACTATE BLOOD VENOUS (2) (BEAKER) (test 2.2 mmol/L 0.5-2.2 mjtm=2819) Effective 11/28/2015: Units/Reference Range ChangeNew: 0.5-2.2 mmol/L Previous: 5 -18 mg/dLRAD, CHEST, 1 VIEW, NON [id number] 10:14:00Reason for exam:-> chest painIs the patient [...] MDReport Verified Date/Time: 03/16/2018 10:14:32 Reading Location: [facility] Radiology Reading Room 10: 14 AMBLOOD [id number] 22:01:00 Test Item Value Reference Range Comments CULTURE (BEAKER) (test ilyk=3992) No growth in 5 days BLOOD [id number] 22:01:00 Test Item Value Reference Range Comments CULTURE (BEAKER) (test uizq=3099) No growth in 5 days RESPIRATORY PANEL [id number] 09:21:00 Test Item Value Reference Range Comments HUMAN METAPNEUMOVIRUS (BEAKER) (test Not detected Not detected, Inconclusive onof=8541) RHINOVIRUS (BEAKER) (test ncbv=4537) Not detected Not detected, Inconclusive INFLUENZA A (BEAKER) (test Not detected Not detected, Inconclusive jmuf=6626) INFLUENZA A SUBTYPE H1 (BEAKER) Not detected Not detected, Inconclusive (test oiye=7494) INFLUENZA A SUBTYPE H3 (BEAKER) Not detected Not detected, Inconclusive (test zkdt=4946) INFLUENZA A SUBTYPE H1-2009 (BEAKER) Not detected Not detected, Inconclusive (test gkfq=0094) INFLUENZA B (BEAKER) (test Not detected Not detected, Inconclusive lwhn=6561) RESPIRATORY SYNCYTIAL VIRUS (BEAKER) Not detected Not detected, Inconclusive (test rgvb=3569) PARAINFLUENZA VIRUS 1 (BEAKER) (test Not detected Not detected, Inconclusive oihk=6894) PARAINFLUENZA VIRUS 2 (BEAKER) (test Not detected Not detected, Inconclusive knsa=6511) PARAINFLUENZA VIRUS 3 (BEAKER) (test Not detected Not detected, Inconclusive pghv=0788) PARAINFLUENZA VIRUS 4 (BEAKER) (test Not detected Not detected, Inconclusive ebcj=1376) ADENOVIRUS (BEAKER) (test ytht=1037) Not detected Not detected, Inconclusive CORONAVIRUS 229E (BEAKER) (test Not detected Not detected, Inconclusive jtwl=6485) CORONAVIRUS HKU1 (BEAKER) (test Not detected Not detected, Inconclusive umim=6339) CORONAVIRUS NL63 (BEAKER) (test Not detected Not detected, Inconclusive dxpl=9349) CORONAVIRUS OC43 (BEAKER) (test Not detected Not detected, Inconclusive czak=6422) BORDETELLA PERTUSSIS (BEAKER) (test Not detected Not detected, Inconclusive splb=9557) CHLAMYDOPHILA PNEUMONIAE (BEAKER) Not detected Not detected, Inconclusive (test lxct=9039) MYCOPLASMA PNEUMONIAE (BEAKER) (test Not detected Not detected, Inconclusive gndm=9031) VANCOMYCIN LEVEL, [id number] 07:38:00 Test Item Value Reference Range Comments VANCOMYCIN TROUGH (BEAKER) (test upmq=840) 11.7 ug/mL 10.0-20.0 URINE [id number] 08:56:00 Test Item Value Reference Range Comments CULTURE (BEAKER) (test cncb=9681) No growth CBC W/PLT COUNT & AUTO [id number] 06:39:00 Test Item Value Reference Range Comments WHITE BLOOD CELL COUNT (BEAKER) (test iedg=261) 2.4 K/ L 4.0-10.0 RED BLOOD CELL COUNT (BEAKER) (test myyc=465) 2.56 M/ L 4.00-5.00 HEMOGLOBIN (BEAKER) (test xngg=172) 8.4 GM/DL 12.0-15.0 HEMATOCRIT (BEAKER) (test iymb=251) 24.6 % 36.0-45.0 MEAN CORPUSCULAR VOLUME (BEAKER) (test mjga=717) 96.4 fL 82.0-99.0 MEAN CORPUSCULAR HEMOGLOBIN (BEAKER) (test 33.0 pg 27.0-33.0 zjeg=772) MEAN CORPUSCULAR HEMOGLOBIN CONC (BEAKER) (test 34.2 GM/DL 32.0-36.0 xovh=788) RED CELL DISTRIBUTION WIDTH (BEAKER) (test 19.7 % 10.3-14.2 ubzi=693) PLATELET COUNT (BEAKER) (test lfjd=400) 108 K/CU MM 150-430 MEAN PLATELET VOLUME (BEAKER) (test zuym=359) 8.8 fL 6.5-10.5 NUCLEATED RED BLOOD CELLS (BEAKER) (test 0 /100 WBC 0-0 gprz=161) (MANUAL DIFFERENTIAL)2017-12-10 06:39:00 Test Item Value Reference Range Comments NEUTROPHILS - REL (DIFF) (BEAKER) (test dtxw=5307) 83 % LYMPHOCYTES - REL (DIFF) (BEAKER) (test imyl=8068) 15 % MONOCYTES - REL (DIFF) (BEAKER) (test hojq=5909) 2 % NEUTROPHILS - ABS (DIFF) (BEAKER) (test ptap=6138) 1.99 K/ L 1.80-8.00 LYMPHOCYTES - ABS (DIFF) (BEAKER) (test najl=4307) 0.36 K/ L 1.48-4.50 MONOCYTES - ABS (DIFF) (BEAKER) (test kidg=0378) 0.05 K/ L 0.00-1.30 TOTAL COUNTED (BEAKER) (test masq=9430) 100 WBC MORPHOLOGY (BEAKER) (test fmco=860) Normal PLT MORPHOLOGY (BEAKER) (test pxxk=157) Normal RBC MORPHOLOGY (BEAKER) (test leln=927) Normal POCT-GLUCOSE [id number] 14:39:00 Test Item Value Reference Range Comments POC-GLUCOSE METER (BEAKER) 125 mg/dL 70-110 TESTED AT [facility] [address] (test tuas=0813) [address] [facility] [address] CBC W/PLT COUNT & AUTO [id number] 06:47:00 Test Item Value Reference Range Comments WHITE BLOOD CELL COUNT (BEAKER) (test 2.2 K/ L 4.0-10.0 lpaq=632) RED BLOOD CELL COUNT (BEAKER) (test 2.72 M/ L 4.00-5.00 cbiz=614) HEMOGLOBIN (BEAKER) (test uejg=767) 9.1 GM/DL 12.0-15.0 HEMATOCRIT (BEAKER) (test woym=484) 26.2 % 36.0-45.0 MEAN CORPUSCULAR VOLUME (BEAKER) (test 96.3 fL 82.0-99.0 rrjr=229) MEAN CORPUSCULAR HEMOGLOBIN (BEAKER) 33.3 pg 27.0-33.0 (test fwdo=491) MEAN CORPUSCULAR HEMOGLOBIN CONC 34.5 GM/DL 32.0-36.0 (BEAKER) (test kzgy=462) RED CELL DISTRIBUTION WIDTH (BEAKER) 18.3 % 10.3-14.2 (test uhko=587) PLATELET COUNT (BEAKER) (test wpzy=236) 129 K/CU MM 150-430 No clot detected MEAN PLATELET VOLUME (BEAKER) (test 7.8 fL 6.5-10.5 gcpy=501) NEUTROPHILS RELATIVE PERCENT (BEAKER) 81 % (test rgel=929) LYMPHOCYTES RELATIVE PERCENT (BEAKER) 14 % (test fbbm=946) MONOCYTES RELATIVE PERCENT (BEAKER) 4 % (test jyig=770) EOSINOPHILS RELATIVE PERCENT (BEAKER) 0 % (test vhny=496) BASOPHILS RELATIVE PERCENT (BEAKER) 0 % (test tuuq=005) NEUTROPHILS ABSOLUTE COUNT (BEAKER) 1.80 K/ L 1.80-8.00 (test aytn=588) LYMPHOCYTES ABSOLUTE COUNT (BEAKER) 0.30 K/ L 1.48-4.50 (test ygqz=835) MONOCYTES ABSOLUTE COUNT (BEAKER) (test 0.10 K/ L 0.00-1.30 fgfb=649) EOSINOPHILS ABSOLUTE COUNT (BEAKER) 0.00 K/ L 0.00-0.50 (test moqu=753) BASOPHILS ABSOLUTE COUNT (BEAKER) (test 0.00 K/ L 0.00-0.20 noip=152) BASIC METABOLIC [id number] 05:54:00 Test Item Value Reference Range Comments SODIUM (BEAKER) (test 138 meq/L 135-148 czls=091) POTASSIUM (BEAKER) (test 3.9 meq/L 3.6-5.5 iigw=003) CHLORIDE (BEAKER) (test 105 meq/L 98-106 krsu=505) CO2 (BEAKER) (test 26 meq/L 20-29 pxtl=667) BLOOD UREA NITROGEN 14 mg/dL 10-26 (BEAKER) (test ybsd=477) CREATININE (BEAKER) (test 0.76 mg/dL 0.50-1.20 xnse=374) GLUCOSE RANDOM (BEAKER) 84 mg/dL 70-110 (test qyfy=245) CALCIUM (BEAKER) (test 8.2 mg/dL 8.5-10.5 ihra=218) EGFR (BEAKER) (test 80 mL/min/1.73 sq m ESTIMATED GFR IS NOT ulsj=6020) ACCURATE CREATININE CLEARANCE IN PREDICTING GLOMERULAR FILTRATION RATE. ESTIMATED GFR IS NOT APPLICABLE FOR DIALYSIS PATIENTS. RAD, CHEST, 2 [id number] 19:36:00Reason for exam:->FEVERIs the patient ?->NoShould this [...] MDReport Verified Date/Time: 12/08/2017 19:36:34 Reading Location: [facility] B1 [id number] Consult Reading Room URINALYSIS W/ [id number] 19:33:00 Test Item Value Reference Range Comments COLOR (BEAKER) (test hpwr=805) Yellow CLARITY (BEAKER) (test ectl=947) Clear SPECIFIC GRAVITY UA (BEAKER) (test iorw=516) <= 1.001-1.035 PH UA (BEAKER) (test iwcz=976) 5.5 5.0-8.0 PROTEIN UA (BEAKER) (test srsj=776) Negative Negative GLUCOSE UA (BEAKER) (test yymb=863) Negative Negative KETONES UA (BEAKER) (test xexy=184) Negative Negative BILIRUBIN UA (BEAKER) (test iptt=188) Negative Negative BLOOD UA (BEAKER) (test xkjj=957) Negative Negative NITRITE UA (BEAKER) (test ahvx=930) Negative Negative LEUKOCYTE ESTERASE UA (BEAKER) (test obeb=697) Negative Negative UROBILINOGEN UA (BEAKER) (test xevw=742) 0.2 mg/dL 0.2-1.0 BACTERIA (BEAKER) (test tilf=058) Occasional RBC UA-MANUAL (BEAKER) (test lfek=6755) <5 /HPF WBC UA-MANUAL (BEAKER) (test fjgx=0883) <5 /HPF SQUAMOUS EPITHELIAL MANUAL (BEAKER) (test <5 /HPF oufx=7883) SOURCE(BEAKER) (test mtot=0218) COMPREHENSIVE METABOLIC [id number] 19:01:00 Test Item Value Reference Range Comments TOTAL PROTEIN (BEAKER) 8.1 gm/dL 6.0-8.5 (test fosh=754) ALBUMIN (BEAKER) (test 4.1 g/dL 3.5-5.0 lefb=6855) ALKALINE PHOSPHATASE 75 U/L 30-115 (BEAKER) (test pmdv=107) BILIRUBIN TOTAL (BEAKER) 0.6 mg/dL 0.1-1.2 (test vtys=782) SODIUM (BEAKER) (test 132 meq/L 135-148 wdyt=580) POTASSIUM (BEAKER) (test 3.6 meq/L 3.6-5.5 vumw=327) CHLORIDE (BEAKER) (test 97 meq/L 98-106 hktw=846) CO2 (BEAKER) (test 23 meq/L 20-29 jper=053) BLOOD UREA NITROGEN 18 mg/dL 10-26 (BEAKER) (test djsj=404) CREATININE (BEAKER) (test 1.02 mg/dL 0.50-1.20 nrjc=637) GLUCOSE RANDOM (BEAKER) 102 mg/dL 70-110 (test awqg=127) CALCIUM (BEAKER) (test 8.6 mg/dL 8.5-10.5 yrah=781) AST (SGOT) (BEAKER) (test 38 U/L 5-40 cbey=597) ALT (SGPT) (BEAKER) (test 49 U/L 5-50 msoy=623) EGFR (BEAKER) (test 57 mL/min/1.73 sq m ESTIMATED GFR IS NOT joze=5886) ACCURATE CREATININE CLEARANCE IN PREDICTING GLOMERULAR FILTRATION RATE. ESTIMATED GFR IS NOT APPLICABLE FOR DIALYSIS PATIENTS. LACTIC ACID, VENOUS, WHOLE [id number] 18:53:00 Test Item Value Reference Range Comments LACTATE BLOOD VENOUS (2) (BEAKER) (test 0.8 mmol/L 0.5-2.2 nbjb=4190) Effective 11/28/2015: Units/Reference Range ChangeNew: 0.5-2.2 mmol/L Previous: 5 -18 mg/dLCBC W/PLT COUNT & AUTO [id number] 18:36:00 Test Item Value Reference Range Comments WHITE BLOOD CELL COUNT (BEAKER) (test agvy=559) 3.5 K/ L 4.0-10.0 RED BLOOD CELL COUNT (BEAKER) (test nzkv=268) 2.95 M/ L 4.00-5.00 HEMOGLOBIN (BEAKER) (test xuxr=899) 9.7 GM/DL 12.0-15.0 HEMATOCRIT (BEAKER) (test socp=541) 28.5 % 36.0-45.0 MEAN CORPUSCULAR VOLUME (BEAKER) (test eejn=061) 96.6 fL 82.0-99.0 MEAN CORPUSCULAR HEMOGLOBIN (BEAKER) (test 32.9 pg 27.0-33.0 gijs=832) MEAN CORPUSCULAR HEMOGLOBIN CONC (BEAKER) (test 34.0 GM/DL 32.0-36.0 ahio=410) RED CELL DISTRIBUTION WIDTH (BEAKER) (test 18.5 % 10.3-14.2 fuzo=678) PLATELET COUNT (BEAKER) (test lhuk=279) 187 K/CU MM 150-430 MEAN PLATELET VOLUME (BEAKER) (test zdga=979) 7.8 fL 6.5-10.5 NEUTROPHILS RELATIVE PERCENT (BEAKER) (test 84 % vfic=223) LYMPHOCYTES RELATIVE PERCENT (BEAKER) (test 10 % ntzz=516) MONOCYTES RELATIVE PERCENT (BEAKER) (test 5 % ymnn=788) EOSINOPHILS RELATIVE PERCENT (BEAKER) (test 0 % qlwv=819) BASOPHILS RELATIVE PERCENT (BEAKER) (test 0 % jyvw=055) NEUTROPHILS ABSOLUTE COUNT (BEAKER) (test 2.90 K/ L 1.80-8.00 hxrh=941) LYMPHOCYTES ABSOLUTE COUNT (BEAKER) (test 0.40 K/ L 1.48-4.50 klxy=914) MONOCYTES ABSOLUTE COUNT (BEAKER) (test 0.20 K/ L 0.00-1.30 lnen=659) EOSINOPHILS ABSOLUTE COUNT (BEAKER) (test 0.00 K/ L 0.00-0.50 mokm=082) BASOPHILS ABSOLUTE COUNT (BEAKER) (test 0.00 K/ L 0.00-0.20 ixmp=299) BLOOD [id number] 13:00:00 Test Item Value Reference Range Comments CULTURE (BEAKER) (test tdnb=2035) No growth in 5 days BLOOD [id number] 10:00:00 Test Item Value Reference Range Comments CULTURE (BEAKER) (test qrou=3846) No growth in 5 days VANCOMYCIN LEVEL, [id number] 14:26:00 Test Item Value Reference Range Comments VANCOMYCIN TROUGH (BEAKER) (test kqgc=716) 9.8 ug/mL 10.0-20.0 VANCOMYCIN DOSING BY RX PER DR. Kowalski PRIOR TO 4th DOSE ON 10/22/17 AT13: 30URINE [id number] 08:16:00 Test Item Value Reference Range Comments CULTURE (BEAKER) (test pohn=6915) No growth (MANUAL DIFFERENTIAL)2017-10-22 07:06:00 Test Item Value Reference Range Comments NEUTROPHILS - REL (DIFF) (BEAKER) (test fkvf=8719) 69 % LYMPHOCYTES - REL (DIFF) (BEAKER) (test vbai=7566) 27 % MONOCYTES - REL (DIFF) (BEAKER) (test vwfi=1901) 4 % NEUTROPHILS - ABS (DIFF) (BEAKER) (test mrsl=0208) 1.52 K/ L 1.80-8.00 LYMPHOCYTES - ABS (DIFF) (BEAKER) (test bvzq=4898) 0.59 K/ L 1.48-4.50 MONOCYTES - ABS (DIFF) (BEAKER) (test qxrb=5616) 0.09 K/ L 0.00-1.30 TOTAL COUNTED (BEAKER) (test vcho=1722) 100 WBC MORPHOLOGY (BEAKER) (test omyt=460) Normal PLT MORPHOLOGY (BEAKER) (test upbv=099) Normal RBC MORPHOLOGY (BEAKER) (test uhom=314) Normal COMPREHENSIVE METABOLIC [id number] 06:39:00 Test Item Value Reference Range Comments TOTAL PROTEIN (BEAKER) 6.8 gm/dL 6.0-8.5 (test clue=622) ALBUMIN (BEAKER) (test 3.7 g/dL 3.5-5.0 kyxg=2675) ALKALINE PHOSPHATASE 111 U/L 30-115 (BEAKER) (test blbn=949) BILIRUBIN TOTAL (BEAKER) 0.3 mg/dL 0.1-1.2 (test uvyk=416) SODIUM (BEAKER) (test 138 meq/L 135-148 rabf=096) POTASSIUM (BEAKER) (test 3.9 meq/L 3.6-5.5 rjye=009) CHLORIDE (BEAKER) (test 102 meq/L 98-106 xnup=724) CO2 (BEAKER) (test 28 meq/L 20-29 sjab=989) BLOOD UREA NITROGEN 9 mg/dL 10-26 (BEAKER) (test rbkw=283) CREATININE (BEAKER) (test 0.70 mg/dL 0.50-1.20 uxea=157) GLUCOSE RANDOM (BEAKER) 85 mg/dL 70-110 (test xlux=650) CALCIUM (BEAKER) (test 9.1 mg/dL 8.5-10.5 toqy=130) AST (SGOT) (BEAKER) (test 141 U/L 5-40 jjot=989) ALT (SGPT) (BEAKER) (test 276 U/L 5-50 rbud=997) EGFR (BEAKER) (test 88 mL/min/1.73 sq m ESTIMATED GFR IS NOT dfov=4764) ACCURATE CREATININE CLEARANCE IN PREDICTING GLOMERULAR FILTRATION RATE. ESTIMATED GFR IS NOT APPLICABLE FOR DIALYSIS PATIENTS. CBC W/PLT COUNT & AUTO [id number] 06:22:00 Test Item Value Reference Range Comments WHITE BLOOD CELL COUNT (BEAKER) (test dghb=400) 2.2 K/ L 4.0-10.0 RED BLOOD CELL COUNT (BEAKER) (test fjam=236) 3.12 M/ L 4.00-5.00 HEMOGLOBIN (BEAKER) (test jstd=930) 9.7 GM/DL 12.0-15.0 HEMATOCRIT (BEAKER) (test schy=666) 28.5 % 36.0-45.0 MEAN CORPUSCULAR VOLUME (BEAKER) (test bllz=497) 91.2 fL 82.0-99.0 MEAN CORPUSCULAR HEMOGLOBIN (BEAKER) (test 31.2 pg 27.0-33.0 dvpr=987) MEAN CORPUSCULAR HEMOGLOBIN CONC (BEAKER) (test 34.2 GM/DL 32.0-36.0 hayv=999) RED CELL DISTRIBUTION WIDTH (BEAKER) (test 12.4 % 10.3-14.2 ktex=989) PLATELET COUNT (BEAKER) (test hgeg=203) 173 K/CU MM 150-430 MEAN PLATELET VOLUME (BEAKER) (test kdvd=734) 7.6 fL 6.5-10.5 NUCLEATED RED BLOOD CELLS (BEAKER) (test 0 /100 WBC 0-0 qtjc=265) HEPATIC FUNCTION [id number] 16:17:00 Test Item Value Reference Range Comments TOTAL PROTEIN (BEAKER) (test gdfn=085) 6.3 gm/dL 6.0-8.5 ALBUMIN (BEAKER) (test grxj=2950) 3.5 g/dL 3.5-5.0 BILIRUBIN TOTAL (BEAKER) (test mdvy=828) 0.3 mg/dL 0.1-1.2 BILIRUBIN DIRECT (BEAKER) (test makk=446) 0.2 mg/dL 0.0-0.4 ALKALINE PHOSPHATASE (BEAKER) (test nybn=883) 106 U/L 30-115 AST (SGOT) (BEAKER) (test oabq=274) 208 U/L 5-40 ALT (SGPT) (BEAKER) (test jlnq=943) 286 U/L 5-50 CBC W/PLT COUNT & AUTO [id number] 06:13:00 Test Item Value Reference Range Comments WHITE BLOOD CELL COUNT (BEAKER) (test jswr=141) 2.9 K/ L 4.0-10.0 RED BLOOD CELL COUNT (BEAKER) (test ahup=043) 3.10 M/ L 4.00-5.00 HEMOGLOBIN (BEAKER) (test fvpt=268) 9.7 GM/DL 12.0-15.0 HEMATOCRIT (BEAKER) (test fkgl=512) 28.3 % 36.0-45.0 MEAN CORPUSCULAR VOLUME (BEAKER) (test ookp=772) 91.2 fL 82.0-99.0 MEAN CORPUSCULAR HEMOGLOBIN (BEAKER) (test 31.2 pg 27.0-33.0 wxgu=771) MEAN CORPUSCULAR HEMOGLOBIN CONC (BEAKER) (test 34.3 GM/DL 32.0-36.0 iead=351) RED CELL DISTRIBUTION WIDTH (BEAKER) (test 12.3 % 10.3-14.2 quaa=464) PLATELET COUNT (BEAKER) (test xopp=028) 178 K/CU MM 150-430 MEAN PLATELET VOLUME (BEAKER) (test lpmw=724) 7.5 fL 6.5-10.5 NUCLEATED RED BLOOD CELLS (BEAKER) (test 0 /100 WBC 0-0 fauq=724) (MANUAL DIFFERENTIAL)2017-10-21 06:13:00 Test Item Value Reference Range Comments NEUTROPHILS - REL (DIFF) (BEAKER) (test qfeu=1034) 76 % LYMPHOCYTES - REL (DIFF) (BEAKER) (test rori=4683) 16 % MONOCYTES - REL (DIFF) (BEAKER) (test hirx=0265) 5 % BANDS - REL (DIFF) (BEAKER) (test mecx=8967) 3 % 0-10 NEUTROPHILS - ABS (DIFF) (BEAKER) (test kisj=3143) 2.20 K/ L 1.80-8.00 LYMPHOCYTES - ABS (DIFF) (BEAKER) (test ejnm=2995) 0.46 K/ L 1.48-4.50 MONOCYTES - ABS (DIFF) (BEAKER) (test aayr=2439) 0.15 K/ L 0.00-1.30 BANDS-ABS (DIFF) (BEAKER) (test iuuq=0526) 0.1 K/ L 0.0-0.8 TOTAL COUNTED (BEAKER) (test ncjk=1353) 100 BANDS + SEGMENTED NEUTROPHILS (BEAKER) (test 2.29 rbpt=1982) WBC MORPHOLOGY (BEAKER) (test luue=089) Normal PLT MORPHOLOGY (BEAKER) (test rfnq=865) Normal RBC MORPHOLOGY (BEAKER) (test nbgg=973) Normal BASIC METABOLIC [id number] 05:25:00 Test Item Value Reference Range Comments SODIUM (BEAKER) (test 139 meq/L 135-148 ishe=382) POTASSIUM (BEAKER) (test 3.7 meq/L 3.6-5.5 bnsa=199) CHLORIDE (BEAKER) (test 104 meq/L 98-106 pznx=227) CO2 (BEAKER) (test 27 meq/L 20-29 dord=719) BLOOD UREA NITROGEN 12 mg/dL 10-26 (BEAKER) (test ldjs=573) CREATININE (BEAKER) (test 0.80 mg/dL 0.50-1.20 pdcn=870) GLUCOSE RANDOM (BEAKER) 77 mg/dL 70-110 (test mxyn=584) CALCIUM (BEAKER) (test 8.5 mg/dL 8.5-10.5 bgui=092) EGFR (BEAKER) (test 75 mL/min/1.73 sq m ESTIMATED GFR IS NOT rmoz=1653) ACCURATE CREATININE CLEARANCE IN PREDICTING GLOMERULAR FILTRATION RATE. ESTIMATED GFR IS NOT APPLICABLE FOR DIALYSIS PATIENTS. CT, BRAIN, WITHOUT [id number] 17:12:00Reason for exam:->headacheIs the patient ?->NoWhat is [...] hydrocephalus. Acute sphenoid sinusitis. Signed: Hailey Lucas MDReport Verified Date/Time: 10/20/2017 17:12:46 Reading Location: [facility] Radiology Reading Room Electronically signed by: HAILEY LUCAS M.D. on 05:12 PMCT, [id number] 09:17:00Reason for exam:->fever, constipation, abd discomfortIs the [...] MDReport Verified Date/Time: 10/20/2017 09:17:32 Reading Location: [facility] B1 [id number] Ortho Consult Reading Room RAD, CHEST, 2 [id number] 08:54:00Reason for exam:->FEVERFINAL REPORT Chest two views [...] MDReport Verified Date/Time: 2017 08:54:43 Reading Location: [facility] Radiology Reading Room HEPATIC FUNCTION [id number] 08:27:00 Test Item Value Reference Range Comments TOTAL PROTEIN (BEAKER) (test diwu=929) 8.1 gm/dL 6.0-8.5 ALBUMIN (BEAKER) (test ddyr=9426) 4.4 g/dL 3.5-5.0 BILIRUBIN TOTAL (BEAKER) (test zxxx=581) 0.4 mg/dL 0.1-1.2 BILIRUBIN DIRECT (BEAKER) (test ggmz=066) 0.2 mg/dL 0.0-0.4 ALKALINE PHOSPHATASE (BEAKER) (test ylav=497) 128 U/L 30-115 AST (SGOT) (BEAKER) (test hoph=974) 88 U/L 5-40 ALT (SGPT) (BEAKER) (test ytkm=889) 281 U/L 5-50 [id number] 08:24:00 Test Item Value Reference Range Comments LIPASE (BEAKER) (test omaa=419) 42 U/L 6-51 BASIC METABOLIC [id number] 08:21:00 Test Item Value Reference Range Comments SODIUM (BEAKER) (test 133 meq/L 135-148 jgys=952) POTASSIUM (BEAKER) (test 4.1 meq/L 3.6-5.5 yjlm=391) CHLORIDE (BEAKER) (test 97 meq/L 98-106 bxjc=765) CO2 (BEAKER) (test 26 meq/L 20-29 tgqd=992) BLOOD UREA NITROGEN 17 mg/dL 10-26 (BEAKER) (test mfpp=591) CREATININE (BEAKER) (test 1.00 mg/dL 0.50-1.20 fgxe=555) GLUCOSE RANDOM (BEAKER) 99 mg/dL 70-110 (test azps=423) CALCIUM (BEAKER) (test 9.3 mg/dL 8.5-10.5 fikp=482) EGFR (BEAKER) (test 58 mL/min/1.73 sq m ESTIMATED GFR IS NOT rwri=4037) ACCURATE CREATININE CLEARANCE IN PREDICTING GLOMERULAR FILTRATION RATE. ESTIMATED GFR IS NOT APPLICABLE FOR DIALYSIS PATIENTS. LACTIC ACID, VENOUS, WHOLE [id number] 08:15:00 Test Item Value Reference Range Comments LACTATE BLOOD VENOUS (2) (BEAKER) (test 1.1 mmol/L 0.5-2.2 rcnc=2058) Effective 11/28/2015: Units/Reference Range ChangeNew: 0.5-2.2 mmol/L Previous: 5 -18 mg/dLCBC W/PLT COUNT & AUTO [id number] 08:11:00 Test Item Value Reference Range Comments WHITE BLOOD CELL COUNT (BEAKER) (test vejx=087) 4.7 K/ L 4.0-10.0 RED BLOOD CELL COUNT (BEAKER) (test bhnu=347) 3.71 M/ L 4.00-5.00 HEMOGLOBIN (BEAKER) (test evqz=005) 11.5 GM/DL 12.0-15.0 HEMATOCRIT (BEAKER) (test olme=148) 33.7 % 36.0-45.0 MEAN CORPUSCULAR VOLUME (BEAKER) (test gzdd=197) 91.0 fL 82.0-99.0 MEAN CORPUSCULAR HEMOGLOBIN (BEAKER) (test 31.1 pg 27.0-33.0 qxff=278) MEAN CORPUSCULAR HEMOGLOBIN CONC (BEAKER) (test 34.2 GM/DL 32.0-36.0 ovgz=645) RED CELL DISTRIBUTION WIDTH (BEAKER) (test 12.3 % 10.3-14.2 zslm=834) PLATELET COUNT (BEAKER) (test nmgm=614) 245 K/CU MM 150-430 MEAN PLATELET VOLUME (BEAKER) (test elso=838) 7.7 fL 6.5-10.5 NUCLEATED RED BLOOD CELLS (BEAKER) (test 0 /100 WBC 0-0 fxlo=909) NEUTROPHILS RELATIVE PERCENT (BEAKER) (test 93 % sapl=380) LYMPHOCYTES RELATIVE PERCENT (BEAKER) (test 2 % xzef=742) MONOCYTES RELATIVE PERCENT (BEAKER) (test 5 % abyl=973) EOSINOPHILS RELATIVE PERCENT (BEAKER) (test 0 % umpm=988) BASOPHILS RELATIVE PERCENT (BEAKER) (test 0 % sfhd=087) NEUTROPHILS ABSOLUTE COUNT (BEAKER) (test 4.40 K/ L 1.80-8.00 sjyw=831) LYMPHOCYTES ABSOLUTE COUNT (BEAKER) (test 0.10 K/ L 1.48-4.50 hxno=563) MONOCYTES ABSOLUTE COUNT (BEAKER) (test 0.20 K/ L 0.00-1.30 emyg=687) EOSINOPHILS ABSOLUTE COUNT (BEAKER) (test 0.00 K/ L 0.00-0.50 iuab=860) BASOPHILS ABSOLUTE COUNT (BEAKER) (test 0.00 K/ L 0.00-0.20 lajt=713) RAPID INFLUENZA A&B [id number] 07:58:00 Test Item Value Reference Range Comments RAPID INFLUENZA A AG (BEAKER) (test Negative Negative, Inconclusive qvsi=4338) RAPID INFLUENZA B AG (BEAKER) (test Negative Negative, Inconclusive jfex=3700) URINALYSIS W/ [id number] 07:55:00 Test Item Value Reference Range Comments COLOR (BEAKER) (test tphh=933) Yellow CLARITY (BEAKER) (test bjcq=186) Clear SPECIFIC GRAVITY UA (BEAKER) (test mkub=751) 1.015 1.001-1.035 PH UA (BEAKER) (test uanq=627) 6.0 5.0-8.0 PROTEIN UA (BEAKER) (test onbj=349) Negative Negative GLUCOSE UA (BEAKER) (test pxcv=263) Negative Negative KETONES UA (BEAKER) (test afgn=160) Negative Negative BILIRUBIN UA (BEAKER) (test utzo=267) Negative Negative BLOOD UA (BEAKER) (test tkau=006) Trace Negative NITRITE UA (BEAKER) (test mzej=956) Negative Negative LEUKOCYTE ESTERASE UA (BEAKER) (test kfog=437) Negative Negative UROBILINOGEN UA (BEAKER) (test kfwp=657) 0.2 mg/dL 0.2-1.0 BACTERIA (BEAKER) (test lsrh=865) Few MUCUS (BEAKER) (test adsz=1622) Few RBC UA-MANUAL (BEAKER) (test pumc=7854) 5-10 /HPF WBC UA-MANUAL (BEAKER) (test hdqn=3037) 5-10 /HPF SQUAMOUS EPITHELIAL MANUAL (BEAKER) (test <5 /HPF fydd=3366) SOURCE(BEAKER) (test prag=2877)
[2018-04-02] MEDS ORDERED: KETAMINE HCL 500 MG/5 ML VIAL ONE (08:00)
[2018-04-02] MEDS ORDERED: PROPOFOL 1,000 MG/100 ML VIAL IV ONE (08:00)
[2018-04-02] MEDS ORDERED: NA CHLORIDE 0.9% 1,000 ML ONE (08:01)
[2018-04-02 08:08] LABS: Absolute Lymphocytes (CBC) 1.2 K/uL (0.7-4.9); Absolute Monocytes 0.3 K/uL (0.1-1.3); Absolute Neutrophil 6.4 K/uL (1.8-8.0); Basophils % 1.2 % (0-1.3); Eosinophils % 0.5 % (0-4.4); Hematocrit 27.2 % (36.0-45.0); Lymphocytes % 14.6 % (15.3-44.8); MCH 32.3 pg (27.0-35.0); MCV 100.9 fL (80-100); MPV 10.2 fL (7.6-11.3); Monocytes % 4.1 % (3.3-12.3); RBC Red Blood Cell Count 2.69 M/uL (3.86-4.86)
[2018-04-02 08:17] LABS: Protime INR 1.18
--- NOTE | 2018-04-02 08:31 | ER ---
Nurse's Notes [facility] Name: Renate Gold Age: 53 yrs Sex: Female : 1965 Arrival Date: 04/02/2018 Time: 07:50 Bed 3 Private MD: Diagnosis: Acute respiratory failure;Shortness of breath;Anemia, unspecified Presentation: 04/02 07:50 Presenting complaint: EMS states: Pt oxygen dependent at home, called EMS for breathing ph difficulty that began last night and progressively worsened, Spo2 less than 70% on home o2, improved to 91% on bi-pap however pt was anxious and agitated and did not tolerate well, pt due for home dialysis today at 0900. Transition of care: patient was not received from another setting of care. Onset of symptoms was April 02, 2018. Risk Assessment: Do you want to hurt yourself or someone else? Patient reports no desire to harm self or others. Initial Sepsis Screen: Does the patient meet any 2 criteria? RR > 20 per min. HR > 90 bpm. Yes. Care prior to arrival: pt on bi-pap upon arrival Medication(s) given: zofran 4 mg, IV initiated. 22 GA, in the right antecubital area, Oxygen administered. via CPAP or BiPAP. 07:50 Method Of Arrival: EMS: [facility] ph 07:50 Acuity: RICH 1 ph 12:44 Initial Sepsis Screen: Does the patient have a suspected source of infection? Yes:. ph PT ESCORT: 07:55 LMP N/A - Post-menopause ph Historical: - Allergies: 08:23 Ciprofloxacin; ph 08:23 Sulfa (Sulfonamide Antibiotics); ph 10:39 Compazine; ph 10:39 Prochlorperazine Maleate; ph - Home Meds: 08:23 Chemo stopped 03/2018 [Active]; ph 10:39 albuterol sulfate 90 mcg/actuation Inhl HFAA 1 puff every 6 hours [Active]; bumetanide ph 1 mg Oral tab 1 tab 2 times per day [Active]; carvedilol 12.5 mg oral tab 1 tab every 12 hours [Active]; dextromethorphan-guaifenesin 10-100 mg/5 mL oral syrp 10 mL every 4 hours [Active]; folic acid 0.8 mg Oral cap daily [Active]; sevelamer carbonate 800 mg oral tab 1 tab 3 times per day [Active]; tramadol 50 mg Oral tab 2 tabs twice a day [Active]; sumatriptan 50 mg 1tab at onset of headeache, may repeat in 2 hours if needed, max dose 100 mg per day [Active]; acetaminophen 325 mg Oral tab 1 tab every 4 hours [Active]; benzocaine-menthol mucous membrane mucous membrane every 2 hours PRN [Active]; calcium carbonate 600 mg (1,500 mg) Oral tab daily [Active]; diphenhydramine HCl 25 mg Oral cap 1 cap every 4 hours [Active]; docusate sodium 100 mg Oral cap 1 cap 2 times per day [Active]; guaifenesin 1,200 mg Oral Ta12 [Active]; melatonin 3 mg Oral tab nightly [Active]; omeprazole 20 mg Oral cpDR 1 cap once daily [Active]; ondansetron HCl 8 mg Oral tab 1 tab every 8 hours [Active]; senna 8.6 mg oral tab 1 tabs once daily [Active]; - PMHx: 08:23 breast cancer-metastasized; Renal Disease; ph - PSHx: 08:23 Hysterectomy; ; Exploratory lap; Cholecystectomy; right breast sx; ph Appendectomy; dialysis port to right chest wall.; - Immunization history:: Adult Immunizations unknown. - Social history:: Smoking status: unknown. - Ebola Screening: : No symptoms or risks identified at this time. Screenin:37 Abuse screen: Denies threats or abuse. Denies injuries from another. Nutritional ph screening: No deficits noted. Tuberculosis screening: No symptoms or risk factors identified. Fall Risk None identified. Assessment: 07:55 General: Appears distressed, uncomfortable, slender, Behavior is cooperative, anxious. ph Pain: Denies pain. Neuro: Level of Consciousness is awake, obeys commands, listless, Oriented to person, place, situation, Moves all extremities. Cardiovascular: Capillary refill is > 3 seconds in bilateral fingers toes Rhythm is sinus tachycardia Dialysis shunt: in the anterior aspect of right upper chest. Respiratory: Reports shortness of breath at rest Airway is patent Respiratory effort is labored, gasping, shallow, Respiratory pattern is tachypnea Breath sounds are diminished the patient has severe shortness of breath. Derm: Skin is intact, Skin is pale, Skin temperature is cool. Musculoskeletal: Circulation, motion, and sensation intact. Range of motion: intact in all extremities. 07:58 Reassessment: Dr Jones and RT at bedside, preparing to intubate pt. ph 09:05 Reassessment: Patient appears in no apparent distress at this time. Patient and/or ph family updated on plan of care and expected duration. Pain level reassessed. Pt remains sedated/intubated, at bedside, states, " I am going to go home for now, I'll leave my number so you can contact me if anything changes" Mirtha Gold # [phone], awaiting bed assignment. 11:06 Reassessment: Patient appears in no apparent distress at this time. No changes from ph previously documented assessment. Patient and/or family updated on plan of care and expected duration. Pain level reassessed. Peripheral IV infiltrated, Dr Jones at bedside to place central line. 12:02 Reassessment: Report called to Barbie GOFF. ph Vital Signs: 07:55 BP 158 / 110; Pulse 122; Resp 35; Temp 99.1(TE); Pulse Ox 91% on BiPAP; Weight 54.43 kg;ph 08:06 BP 153 / 106; Pulse 130; Resp 18; Pulse Ox 91% on ETT ambu; ph 08:33 BP 145 / 94; Pulse 94; Resp 18; Temp 101.3; Pulse Ox 95% on 100% FiO2 ETT vent; ph 08:59 BP 127 / 86; Pulse 107; Resp 16; Temp 101.7(C); Pulse Ox 100% on 40% FiO2 ETT vent; ph 09:30 BP 121 / 81; Pulse 103; Resp 16; Temp 101.1(C); Pulse Ox 100% on 40% FiO2 ETT vent; ph 09:50 BP 154 / 101; Pulse 118; Resp 18; Temp 101.0(C); Pulse Ox 94% on 40% FiO2 ETT vent; ph 10:14 BP 147 / 102; Pulse 119; Resp 14; Temp 101.2(C); Pulse Ox 95% on 40% FiO2 ETT vent; ph 10:30 BP 145 / 104; Pulse 115; Resp 16; Temp 101.3(C); Pulse Ox 100% on 40% FiO2 ETT vent; ph 10:45 BP 117 / 83; Pulse 108; Resp 18; Temp 101.2(C); Pulse Ox 93% on 40% FiO2 ETT vent; ph 11:00 BP 124 / 88; Pulse 104; Resp 18; Temp 100.8(C); Pulse Ox 99% on 40% FiO2 ETT vent; ph 11:20 BP 100 / 76; Pulse 96; Resp 16; Temp 99.9(C); Pulse Ox 93% on 40% FiO2 ETT vent; ph 11:46 BP 104 / 75; Pulse 95; Resp 18; Temp 99.4(C); Pulse Ox 98% on 40% FiO2 ETT vent; ph 12:00 BP 134 / 90; Pulse 104; Resp 16; Temp 99.2(C); Pulse Ox 93% on 40% FiO2 ETT vent; ph 12:15 BP 125 / 88; Pulse 102; Resp 18; Temp 99.1(C); Pulse Ox 94% on 40% FiO2 ETT vent; ph Vitals: 08:06 Cardiac Rhythm Assessment Sinus tach. ph 08:33 Cardiac Rhythm Assessment Sinus rhythm. ph 08:59 Cardiac Rhythm Assessment Sinus tach. ph ED Course: 07:50 Patient arrived in ED. ch 08:06 EKG done, by wood technologist. reviewed by Preston Jones MD. sm3 08:06 Assisted provider with intubation using 7.0 mm ETT via oral route. ET tube secured at ph 21cm at the lips. Set up intubation tray. Intubated by Preston Jones MD Placement verified by CXR, CO2 detector w/ + color change, auscultating bilateral breath sounds, Patient tolerated well. 08:12 Preston Jones MD is Attending Physician. kdr 08:13 Cheryl Ward, RN is Primary Nurse. ph 08:20 Triage completed. ph 08:20 Cote cath inserted, using sterile technique, 16 Fr., by ED staff, balloon inflated, to ph gravity drainage, urine specimen collected. returned cloudy urine. NGT: inserted 16 Fr. other via oral route verified placement of air over stomach, verified return of gastric contents, Placement verified by X-ray, to intermittent suction. Returned gastric contents. 08:23 Arm band placed on. ph 08:29 X-ray completed. Portable x-ray completed in exam room. Patient tolerated procedure jb2 well. 08:32 Madeleine Salazar MD is Hospitalizing Provider. kdr 08:38 Patient has correct armband on for positive identification. Placed in gown. Bed in low ph position. Call light in reach. Side rails up X2. media monitor on. Pulse ox on. NIBP on. Warm blanket given. 08:40 Accessed Port-a-Cath. using accessed w/ # 20 Mercado needle, Clean \\T\\ dry. Dressing ph intact. Good blood return. Flushes easily. Maintain EMS IV. Dressing intact. Good blood return noted. Site clean \\T\\ dry. Gauge \\T\\ site: 22 RAC. 11:30 Assisted provider with central line placement. Set up central line tray. Triple lumen ph line placed in right femoral. Line placed by Preston Jones MD Placement verified by blood return, Dressed with Tegaderm, Patient tolerated well. pt sedated/intubated, no consent signed Before procedure, did Practitioner(s) obtain informed consent? No. Patient \\T\\ family education about procedure, CLABSI prevention and S/S of infection? No. Time-out/Briefing performed prior to start of procedure? Yes. Was handwashing/sanitizing done immediately prior to procedure? Yes. Was patient positioned to in a way to prevent air embolism? Yes. Was procedure site sterilized? Yes, with betadine. Was the site allowed to dry? Yes. Was local anesthetic and/or sedation utilized? Yes. During the procedure, did the Practitioner(s) maintain a sterile field? Yes. Were unused ports clamped during insertion? Yes. Was a 2nd qualified MD obtained after 3 unsuccessful insertion attempts? No. Was blood aspirated from each lumen? Yes. After the procedure, did the Practitioner(s) clean the site and apply a sterile dressing? Yes. Patient admitted, IV remains in place. Administered Medications: 08:00 Drug: Etomidate 20 mg Route: IVP; Site: right antecubital; ph 08:30 Follow up: Response: No adverse reaction; Patient is sedated ph 08:01 Drug: Succinylcholine 80 mg Route: IVP; Site: right antecubital; ph 08:30 Follow up: Response: No adverse reaction; Patient is sedated ph 08:12 Drug: Propofol 5 mcg/kg/min Route: IV; Rate: calculated rate; Site: right antecubital; ph 08:50 Follow up: IV SiteChange: left subclavian; IV SiteChange Reason: Infiltration ph 12:30 Follow up: Response: No adverse reaction; Patient is sedated; IV Status: Infusion ph continued upon admission 08:45 Drug: VecuroNIUM 10 mg Route: IVP; Site: left subclavian; ph 09:30 Follow up: Response: No adverse reaction ph 08:50 Drug: Tylenol Suppository 650 mg Route: WI; ph 11:30 Follow up: Response: No adverse reaction; Temperature is decreased ph 08:51 Drug: Xopenex (3) 1.25 mg Route: Inhalation; ph 10:00 Follow up: Response: No adverse reaction ph 08:51 Drug: Rocephin - (cefTRIAXone) 1 grams Route: IVPB; Infused Over: 30 mins; Site: left ph subclavian; 09:30 Follow up: Response: No adverse reaction; IV Status: Completed infusion ph 11:15 Drug: NS 0.9% 500 ml Route: IV; Rate: bolus; Site: left subclavian; ph 12:30 Follow up: Response: No adverse reaction; IV Status: Completed infusion ph 11:34 Drug: vancoMYCIN 1 grams Route: IVPB; Infused Over: 2 hrs; Site: right femoral; ph 12:30 Follow up: Response: No adverse reaction; IV Status: Infusion continued upon admission ph 11:44 Drug: VecuroNIUM 10 mg Route: IVP; Site: left subclavian; ph 12:30 Follow up: Response: No adverse reaction ph Outcome: 08:30 Decision to Hospitalize by Provider. kdr 12:44 Admitted to ICU accompanied by nurse, accompanied by tech, via stretcher, room 7, with ph oxygen, on monitor, with chart, Other accompanied by RT Report called to Barbie GOFF 12:44 critical 12:45 Patient left the ED. ph Signatures: Kaylen Witt RN RN Preston Jones MD MD kdr Buechter, Jesse jb2 Cheryl Ward RN RN Myrna Hayward 3 Corrections: (The following items were deleted from the chart) 08:33 07:58 Reassessment: ph ph 17:24 12:30 Response: No adverse reaction ph ph
--- NOTE | 2018-04-02 08:31 | EDPHYS ---
Physician Documentation [facility] Name: Renate Gold Age: 53 yrs Sex: Female : 1965 Arrival Date: 04/02/2018 Time: 07:50 Bed 3 Private MD: ED Physician Preston Jones HPI: 04/02 08:14 This 53 yrs old Female presents to ER via Unassigned with complaints of kdr Shortness Of Breath. 08:14 The patient has shortness of breath at rest. Onset: The symptoms/episode began/occurred kdr yesterday. Duration: The symptoms are continuous, and are steadily getting worse. The patient's shortness of breath is aggravated by exertion, light activity, supine position, talking, is alleviated by nothing. Associated signs and symptoms: Pertinent positives: non-productive cough. Severity of symptoms: At their worst the symptoms were moderate severe just prior to arrival, in the emergency department the symptoms are unchanged. The patient has experienced similar episodes in the past, a few times. It is unknown whether or not the patient has recently seen a physician. 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: 07:55 LMP N/A - Post-menopause ph Historical: - Allergies: 08:23 Ciprofloxacin; ph 08:23 Sulfa (Sulfonamide Antibiotics); ph 10:39 Compazine; ph 10:39 Prochlorperazine Maleate; ph - Home Meds: 08:23 Chemo stopped 03/2018 [Active]; ph 10:39 albuterol sulfate 90 mcg/actuation Inhl HFAA 1 puff every 6 hours [Active]; bumetanide ph 1 mg Oral tab 1 tab 2 times per day [Active]; carvedilol 12.5 mg oral tab 1 tab every 12 hours [Active]; dextromethorphan-guaifenesin 10-100 mg/5 mL oral syrp 10 mL every 4 hours [Active]; folic acid 0.8 mg Oral cap daily [Active]; sevelamer carbonate 800 mg oral tab 1 tab 3 times per day [Active]; tramadol 50 mg Oral tab 2 tabs twice a day [Active]; sumatriptan 50 mg 1tab at onset of headeache, may repeat in 2 hours if needed, max dose 100 mg per day [Active]; acetaminophen 325 mg Oral tab 1 tab every 4 hours [Active]; benzocaine-menthol mucous membrane mucous membrane every 2 hours PRN [Active]; calcium carbonate 600 mg (1,500 mg) Oral tab daily [Active]; diphenhydramine HCl 25 mg Oral cap 1 cap every 4 hours [Active]; docusate sodium 100 mg Oral cap 1 cap 2 times per day [Active]; guaifenesin 1,200 mg Oral Ta12 [Active]; melatonin 3 mg Oral tab nightly [Active]; omeprazole 20 mg Oral cpDR 1 cap once daily [Active]; ondansetron HCl 8 mg Oral tab 1 tab every 8 hours [Active]; senna 8.6 mg oral tab 1 tabs once daily [Active]; - PMHx: 08:23 breast cancer-metastasized; Renal Disease; ph - PSHx: 08:23 Hysterectomy; ; Exploratory lap; Cholecystectomy; right breast sx; ph Appendectomy; dialysis port to right chest wall.; - Immunization history:: Adult Immunizations unknown. - Social history:: Smoking status: unknown. - Ebola Screening: : No symptoms or risks identified at this time. ROS: 08:14 Constitutional: The patient is a poor historian and is not able to communicate clearly kdr or effectively given her SOB and difficulty breathing 08:14 Unable to obtain ROS due to patient's speech is incomprehensible, patient is on ventilator. Exam: 08:14 Constitutional: This is a well developed, poorly nourished patient who is awake, kdr mildly somnolent and in moderate distress. The patient is on CPAP by EMS initially. When asked if she wanted to be put asleep and to be on the ventilator, she said yes. She denied being intubated before Head/Face: Normocephalic, atraumatic. Eyes: Pupils equal round and reactive to light, extra-ocular motions intact. Lids and lashes normal. Conjunctiva and sclera are non-icteric and not injected. Cornea within normal limits. Periorbital areas with no swelling, redness, or edema. ENT: Nares patent. No nasal discharge, no septal abnormalities noted. Oropharynx with no redness, swelling, or masses, exudates, or evidence of obstruction, uvula midline. Mucous membranes dry Neck: Trachea midline, no thyromegaly or masses palpated, and no cervical lymphadenopathy. Supple, full range of motion without nuchal rigidity, or vertebral point tenderness. No Meningismus. Chest/axilla: Normal chest wall appearance and motion. Nontender with no deformity. No lesions are appreciated. Cardiovascular: Regular tachycardic rate and rhythm with a normal S1 and S2. No gallops, murmurs, or rubs. Normal PMI, no JVD. No pulse deficits. Abdomen/GI: Soft, non-tender, with normal bowel sounds. No distension or tympany. No guarding or rebound. No evidence of tenderness throughout. Back: No spinal tenderness. No costovertebral tenderness. Full range of motion. Skin: Warm, dry with normal turgor. Normal color with no rashes, no lesions, and no evidence of cellulitis. MS/ Extremity: Pulses equal, no cyanosis. Neurovascular intact. Full, normal range of motion. Neuro: Awake and alert, GCS 15, oriented to person, place only. Cranial nerves II-XII grossly intact. Motor strength 4/5 in all extremities. Sensory grossly intact. 08:14 Respiratory: moderate respiratory distress is noted, Respirations: labored breathing, nasal flaring, shallow respirations, that is mild, Breath sounds: rales, bronchial sounds, rhonchi, + upper airway congestion. Vital Signs: 07:55 BP 158 / 110; Pulse 122; Resp 35; Temp 99.1(TE); Pulse Ox 91% on BiPAP; Weight 54.43 kg;ph 08:06 BP 153 / 106; Pulse 130; Resp 18; Pulse Ox 91% on ETT ambu; ph 08:33 BP 145 / 94; Pulse 94; Resp 18; Temp 101.3; Pulse Ox 95% on 100% FiO2 ETT vent; ph 08:59 BP 127 / 86; Pulse 107; Resp 16; Temp 101.7(C); Pulse Ox 100% on 40% FiO2 ETT vent; ph 09:30 BP 121 / 81; Pulse 103; Resp 16; Temp 101.1(C); Pulse Ox 100% on 40% FiO2 ETT vent; ph 09:50 BP 154 / 101; Pulse 118; Resp 18; Temp 101.0(C); Pulse Ox 94% on 40% FiO2 ETT vent; ph 10:14 BP 147 / 102; Pulse 119; Resp 14; Temp 101.2(C); Pulse Ox 95% on 40% FiO2 ETT vent; ph 10:30 BP 145 / 104; Pulse 115; Resp 16; Temp 101.3(C); Pulse Ox 100% on 40% FiO2 ETT vent; ph 10:45 BP 117 / 83; Pulse 108; Resp 18; Temp 101.2(C); Pulse Ox 93% on 40% FiO2 ETT vent; ph 11:00 BP 124 / 88; Pulse 104; Resp 18; Temp 100.8(C); Pulse Ox 99% on 40% FiO2 ETT vent; ph 11:20 BP 100 / 76; Pulse 96; Resp 16; Temp 99.9(C); Pulse Ox 93% on 40% FiO2 ETT vent; ph 11:46 BP 104 / 75; Pulse 95; Resp 18; Temp 99.4(C); Pulse Ox 98% on 40% FiO2 ETT vent; ph 12:00 BP 134 / 90; Pulse 104; Resp 16; Temp 99.2(C); Pulse Ox 93% on 40% FiO2 ETT vent; ph 12:15 BP 125 / 88; Pulse 102; Resp 18; Temp 99.1(C); Pulse Ox 94% on 40% FiO2 ETT vent; ph MDM: 08:14 Data reviewed: vital signs, nurses notes, lab test result(s), EKG, radiologic studies. kdr Counseling: I had a detailed discussion with the patient and/or guardian regarding: the historical points, exam findings, and any diagnostic results supporting the discharge/admit diagnosis, lab results, radiology results, the need for further work-up and treatment in the hospital. 08:30 Patient medically screened. kdr 04/02 07:51 Order name: Basic Metabolic Panel; Complete Time: 09:52 ch 04/02 07:51 Order name: CBC with Diff; Complete Time: 09:52 ch 04/02 07:51 Order name: Ckmb; Complete Time: 09:52 ch 04/02 07:51 Order name: CPK; Complete Time: 09:52 ch 04/02 07:51 Order name: LFT's; Complete Time: 09:52 ch 04/02 07:51 Order name: Magnesium; Complete Time: 09:52 ch 04/02 07:51 Order name: NT PRO-BNP; Complete Time: 09:52 ch 04/02 07:51 Order name: PT-INR; Complete Time: 09:52 ch 04/02 07:51 Order name: Ptt, Activated; Complete Time: 09:52 ch 04/02 07:51 Order name: Troponin (emerg Dept Use Only); Complete Time: 09:52 ch 04/02 08:10 Order name: CBC Smear Scan; Complete Time: 09:52 EDMS 04/02 08:13 Order name: ABG; Complete Time: 09:52 kdr 04/02 08:38 Order name: Blood Culture Adult (2) kdr 04/02 08:38 Order name: Urine Culture kdr 04/02 07:51 Order name: XRAY Chest (1 view) ch 04/02 08:38 Order name: Lactate; Complete Time: 09:52 kdr 04/02 08:38 Order name: Procalcitonin; Complete Time: 09:52 kdr 04/02 09:15 Order name: Urine Dipstick--Ancillary (enter results) eb 04/02 09:20 Order name: Urine Dipstick-Ancillary; Complete Time: 09:52 EDMS 04/02 10:07 Order name: RAD; Complete Time: 12:55 EDMS 04/02 07:51 Order name: EKG; Complete Time: 07:52 ch 04/02 07:51 Order name: Cardiac monitoring; Complete Time: 08:52 ch 04/02 07:51 Order name: EKG - Nurse/Tech; Complete Time: 08:52 ch 04/02 07:51 Order name: IV Saline Lock; Complete Time: 08:52 ch 04/02 07:51 Order name: Labs collected and sent; Complete Time: 08:52 ch 04/02 07:51 Order name: O2 Per Protocol; Complete Time: 08:52 ch 04/02 07:51 Order name: O2 Sat Monitoring; Complete Time: 08:53 ch 04/02 07:51 Order name: Urine Dipstick-Ancillary (obtain specimen); Complete Time: 08:53 ch Administered Medications: 08:00 Drug: Etomidate 20 mg Route: IVP; Site: right antecubital; ph 08:30 Follow up: Response: No adverse reaction; Patient is sedated ph 08:01 Drug: Succinylcholine 80 mg Route: IVP; Site: right antecubital; ph 08:30 Follow up: Response: No adverse reaction; Patient is sedated ph 08:12 Drug: Propofol 5 mcg/kg/min Route: IV; Rate: calculated rate; Site: right antecubital; ph 08:50 Follow up: IV SiteChange: left subclavian; IV SiteChange Reason: Infiltration ph 12:30 Follow up: Response: No adverse reaction; Patient is sedated; IV Status: Infusion ph continued upon admission 08:45 Drug: VecuroNIUM 10 mg Route: IVP; Site: left subclavian; ph 09:30 Follow up: Response: No adverse reaction ph 08:50 Drug: Tylenol Suppository 650 mg Route: KS; ph 11:30 Follow up: Response: No adverse reaction; Temperature is decreased ph 08:51 Drug: Xopenex (3) 1.25 mg Route: Inhalation; ph 10:00 Follow up: Response: No adverse reaction ph 08:51 Drug: Rocephin - (cefTRIAXone) 1 grams Route: IVPB; Infused Over: 30 mins; Site: left ph subclavian; 09:30 Follow up: Response: No adverse reaction; IV Status: Completed infusion ph 11:15 Drug: NS 0.9% 500 ml Route: IV; Rate: bolus; Site: left subclavian; ph 12:30 Follow up: Response: No adverse reaction; IV Status: Completed infusion ph 11:34 Drug: vancoMYCIN 1 grams Route: IVPB; Infused Over: 2 hrs; Site: right femoral; ph 12:30 Follow up: Response: No adverse reaction; IV Status: Infusion continued upon admission ph 11:44 Drug: VecuroNIUM 10 mg Route: IVP; Site: left subclavian; ph 12:30 Follow up: Response: No adverse reaction ph Disposition: 04/02/18 08:30 Hospitalization ordered by Madeleine Salazar for Inpatient Admission. Preliminary diagnosis are Acute respiratory failure, Shortness of breath, Anemia, unspecified. - Bed requested for Intensive Care Unit. - Status is Inpatient Admission. ph - Condition is Serious. - Problem is an acute exacerbation. - Symptoms have improved. UTI on Admission? No Signatures: Dispatcher [employer] EDKaylen Way, RN [place] Preston Jones MD MD [facility] Cheryl Ward RN RN [facility] [employer]: (The following items were deleted from the chart) 08:32 08:30 Hospitalization Ordered by for Inpatient Admission. Preliminary diagnosis is kdr Acute respiratory failure; Shortness of breath. Bed requested for Intensive Care Unit. Status is Inpatient Admission. Condition is Serious. Problem is an acute exacerbation. Symptoms have improved. UTI on Admission? No. kdr 10:26 08:32 04/02/2018 08:30 Hospitalization Ordered by Madeleine Salazar MD for Inpatient eb Admission. Preliminary diagnosis is Acute respiratory failure; Shortness of breath; Anemia, unspecified. Bed requested for Intensive Care Unit. Status is Inpatient Admission. Condition is Serious. Problem is an acute exacerbation. Symptoms have improved. UTI on Admission? No. kdr 12:45 10:26 04/02/2018 08:30 Hospitalization Ordered by Madeleine Salazar MD for Inpatient ph Admission. Preliminary diagnosis is Acute respiratory failure; Shortness of breath; Anemia, unspecified. Bed requested for Intensive Care Unit. Status is Inpatient Admission. Condition is Serious. Problem is an acute exacerbation. Symptoms have improved. UTI on Admission? No. eb
[2018-04-02] MEDS ORDERED: VECURONIUM 10 MG/VIAL IV ONE ×3 (08:46→16:17)
[2018-04-02] MEDS ORDERED: CEFTRIAXONE/SWI 1gm 1 GM/10 ML SYR ONE (08:50)
[2018-04-02] MEDS ORDERED: ACETAMINOPHEN 650MG/RECT SUPP PR ONE (08:50)
[2018-04-02] MEDS ORDERED: LEVALBUTEROL 1.25 MG/3 ML NEB ONE (08:56)
[2018-04-02 09:08] LABS: Blood Gas Oxyhemoglobin 96.6 % (94-97); Blood O2 Saturation 99.8 % (92-98.5)
[2018-04-02 09:20] LABS: Urine Blood 3+ (NEG); Urine Glucose NEGATIVE (NEG); Urine Protein 3+ (NEG); Urine Specific Gravity 1.025 (1.005-1.030); Urine pH 6.5 (5.0-7.0)
[2018-04-02 09:20] LABS: ALT/SGPT 8 U/L (12-78); AST/SGOT 52 U/L (15-37); Albumin 2.1 g/dL (3.4-5.0); Alkaline Phosphatase 54 U/L (45-117); BUN Blood Urea Nitrogen 52 mg/dL (7-18); Bicarbonate 20 mmol/L (21-32); Bilirubin Direct 0.2 mg/dL (0-0.2); Bilirubin Total 0.6 mg/dL (0.2-1.0); Creatine Phosphokinase 96 U/L (26-192); Glucose Level 248 mg/dL (74-106); Magnesium 2.1 mg/dL (1.8-2.4); Potassium 4.9 mmol/L (3.5-5.1); Protein, Total 6.7 g/dL (6.4-8.2); Sodium Level 137 mmol/L (136-145); Troponin (Emerg Dept Use Only) 0.39 ng/mL (0.0-0.045)
[2018-04-02 09:21] LABS: NT PRO-BNP > 175000 pg/mL (<125)
[2018-04-02 09:26] LABS: Blood Morphology Comment NOT SEEN (NOT SEEN); Platelet Estimate DECR
[2018-04-02 09:27] LABS: Urine White Blood Cell Casts OK
--- NOTE | 2018-04-02 10:07 | RAD REPORT ---
EXAM DESCRIPTION: Cj Single View04/02/2018 8:57 am CLINICAL HISTORY: Shortness of breath COMPARISON: 2013 FINDINGS: Moderate bilateral pulmonary opacities are seen with small pleural effusions. The heart is mildly enlarged. A nasogastric tube is coiled within the stomach. Endotracheal tube has its tip 5.5 centimeters above the valentino. Central venous catheters are in place. IMPRESSION: Moderate bilateral pulmonary opacities probably represent pulmonary edema
[2018-04-02] MEDS ORDERED: VANCOMYCIN 1 GM/250 ML BAG ONE (10:28)
--- NOTE | 2018-04-02 11:49 | EKG ---
Test Date: 2018-04-02 Test Time: 07:59:24 Fire Support Specialist: WILMAR MEASUREMENT RESULTS: Intervals: Rate: 123 MA: 132 QRSD: 68 QT: 282 QTc: 403 [place]: P: 47 MA: 132 QRS: 18 T: 86 INTERPRETIVE STATEMENTS: Sinus tachycardia Possible Left atrial enlargement Low voltage QRS Nonspecific T wave abnormality Abnormal ECG Compared to ECG 02/13/2014 13:17:44 Low QRS voltage now present T-wave abnormality now present Sinus rhythm no longer present Sinus arrhythmia no longer present Electronically Signed On 04-02-18 11:48:12 CDT by Derik Bryan
[2018-04-02] MEDS ORDERED: HALOPERIDOL LACT 5 MG/ML INJ IV PRN (12:45)
[2018-04-02] MEDS: INSULIN -REGULAR HUMAN 50 UNIT/0.5 ML ML SQ SCH ×3 (12:45→21:00)
[2018-04-02] MEDS ORDERED: MIDAZOLAM HCL 2 MG/2 ML INJ IV PRN (12:45)
[2018-04-02] MEDS ORDERED: ACETAMINOPHEN 500 MG TAB PO PRN (12:45)
[2018-04-02] MEDS ORDERED: VANCOMYCIN 1.25 GM in NA CHLORIDE 0.9% 250 ML IVPB SCH (12:45)
[2018-04-02] MEDS ORDERED: FENTANYL CITR 100 MCG/2 ML IV PRN (12:45)
[2018-04-02] MEDS ORDERED: NA CHLORIDE 0.9% 1,000 ML IV SCH ×2 (12:45→18:00)
[2018-04-02] MEDS: ENOXAPARIN 40 MG/0.4 ML SQ SCH (13:00)
[2018-04-02] MEDS: PIPER/TAZO/NS 3.375gm 3.375 GM/100 ML BAG IVPB SCH ×2 (13:24→17:58)
[2018-04-02 13:57] LABS: Thyroid Stimulating Hormone 12.4 uIU/mL (0.360-3.740)
[2018-04-02] MEDS ORDERED: VANCOMYCIN 500 MG in NA CHLORIDE 0.9% 100 ML IVPB SCH (14:00)
[2018-04-02] MEDS: FAMOTIDINE 20 MG/2 ML VIAL IV SCH ×2 (14:02→21:08)
--- NOTE | 2018-04-02 14:30 | RAD REPORT ---
EXAM DESCRIPTION: Cj Single View04/02/2018 1:42 pm CLINICAL HISTORY: Endotracheal tube placement COMPARISON: April 02, 2018 FINDINGS: An endotracheal tube has its tip 4 centimeters above the valentino. No other change has occurred since an exam earlier on the same date IMPRESSION: Endotracheal tube with its tip 4 centimeters above the valentino
--- NOTE | 2018-04-02 15:11 | P.CNS ---
Date of Consult: 04/02/18 Reason for Consult: Respiratory failure Chief Complaint: Respiratory failure History of Present Illness: Patient is 53 years of age was recently discharged from [facility] patient has end-stage renal disease on dialysis became hypoxic and was intubated currently on a propofol drip breast cancer with metastatic disease is undergoing chemotherapy patient had a renal biopsy performed at [facility] Allergies ciprofloxacin [From Cipro] Allergy (Unknown, Verified 04/02/18 13:39) Unknown ciprofloxacin HCl [From Cipro] Allergy (Unknown, Verified 04/02/18 13:39) Unknown Sulfa (Sulfonamide Antibiotics) Allergy (Unknown, Verified 04/02/18 13:39) Unknown - Past Medical/Surgical History Diabetic: No -: right breast sx removal of lump, and lymph nodes -: breast ca-metastasized, radiation, chemo stopped 03/2018 complications -: renal disease -: esrd -: copd -: hysterectomy -: -: expl lap, rk -: port a cath right chest wall -: gabbi right chest wall - Family History Mother Medical History: Diabetes, Cancer Notes: breast ca Father History Unknown: Yes Medical History: Heart disease, Hypertension - Social History Smoking Status: Unknown if ever smoked Alcohol use: No CD- Drugs: No Place of Residence: Home Review of Systems is unable to be obtained Physical Examination Temp Pulse Resp BP Pulse Ox 99.0 F 106 H 15 141/95 H 100 04/02/18 13:00 04/02/18 13:00 04/02/18 13:00 04/02/18 13:00 04/02/18 13:00 General: Comatose HEENT: Atraumatic Neck: Supple Respiratory: Clear to auscultation bilaterally Cardiovascular: No edema, Normal S1 S2, Other (Very cold extremities) Gastrointestinal: Hypoactive, Non-distended Musculoskeletal: No clubbing, No swelling Laboratory Data (last 24 hrs) 04/02/18 07:55: PT 13.9 H, INR 1.18, APTT 31.9 04/02/18 07:55: WBC 8.0, Hgb 8.7 L, Hct 27.2 L, Plt Count 84 L 04/02/18 07:55: Sodium 137, Potassium 4.9, BUN 52 H, Creatinine 5.50 H*, Glucose 248 H, Magnesium 2.1, Total Bilirubin 0.6, AST 52 H, ALT 8 L, Alkaline Phosphatase 54 - Problems (1) Respiratory failure Current Visit: Yes Status: Acute Plan: Patient is 53 years of age with the breast cancer with metastatic disease history of chronic renal failure admitted with respiratory failure currently on a ventilator patient has cardiomegaly presumed bilateral pleural effusions mild anemia thrombocytopenia patient is on Zosyn vancomycin cultures are pending titrate sat to 90% repeat arterial blood gases patient high risk for thromboembolism ordered Dopplers of lower extremities if negative proceed to CT angiogram echo with Doppler Qualifiers: Chronicity: acute
[2018-04-02] MEDS ORDERED: SUCCINYLCHOLINE 20 MG/ML (10 ML) IV ONE (16:17)
[2018-04-02] MEDS ORDERED: ETOMIDATE 20 MG/10 ML VIAL IV ONE (16:17)
--- NOTE | 2018-04-02 16:29 | RAD REPORT ---
EXAM DESCRIPTION: US - Extrem Venous W Compress Gallo - 04/02/2018 4:06 pm CLINICAL HISTORY: Bilateral leg pain and swelling COMPARISON: None. TECHNIQUE: Real-time sonographic evaluation of the bilateral lower extremity common femoral, superfi cial femoral, popliteal and posterior tibial veins was performed. FINDINGS: Normal compressibility, flow augmentation, phasic flow and spontaneous flow are identified in the left and right lower extremity common femoral, superficial femoral, popliteal and posterior t ibial veins. No intraluminal filling defects seen. IMPRESSION: No DVT in either lower extremity.
--- NOTE | 2018-04-02 17:06 | P.HP ---
Certification for Inpatient Patient admitted to: Inpatient With expected LOS: >2 Midnights Patient will require the following post-hospital care: None Practitioner: I am a practitioner with admitting privileges, knowledge of patient current condition, hospital course, and medical plan of care. Services: Services provided to patient in accordance with Admission requirements found in Title 42 Section 412.3 of the Code of Federal Regulations Patient History Date of Service: 04/02/18 Primary Care Provider: [place] Reason for admission: Respiratory failure History of Present Illness: This is a 53-year-old female with significant past medical history of breast cancer which was removed 2 years ago patient has been since on chemo and radiation. Had finished her chemo and radiation and negative x3. However developed metastatic disease this year and has been back on chemo and radiation therapy. 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 Patient was recently at [facility] and was discharged from there after having a renal failure and was started on dialysis there. Patient was set up with home dialysis and was discharged 2 days ago. The last time she had dialysis was on Thursday. Patient came to the ER for complaining of having some shortness of breath that has been going on for past couple of days and has gotten progressively worse. Patient stated that this morning she was not able to catch her breath and thus decided to come to the ER. Most of the information was collected by the ER physician as patient was already intubated by the time I saw the patient in the ER. In the ER patient was found to have acute respiratory failure most likely secondary to volume overload and thus was intubated. Patient was then referred for admission for further care. Allergies ciprofloxacin [From Cipro] Allergy (Unknown, Verified 04/02/18 13:39) Unknown ciprofloxacin HCl [From Cipro] Allergy (Unknown, Verified 04/02/18 13:39) Unknown Sulfa (Sulfonamide Antibiotics) Allergy (Unknown, Verified 04/02/18 13:39) Unknown - Past Medical/Surgical History Diabetic: No -: right breast sx removal of lump, and lymph nodes -: breast ca-metastasized, radiation, chemo stopped 03/2018 complications -: renal disease -: esrd -: copd -: hysterectomy -: -: expl lap, rk -: port a cath right chest wall -: gabbi right chest wall - Family History Mother -: Diabetes, Cancer Notes: breast ca Father History Unknown: Yes -: Heart disease, Hypertension - Social History Smoking Status: Former smoker Alcohol use: No CD- Drugs: No Place of Residence: Home Review of Systems 10-point ROS is otherwise unremarkable Physical Examination - Vital Signs Temperature: 99.0 F Blood Pressure: 141/95 Pulse: 106 Respirations: 15 Pulse Ox (%): 100 - Physical Exam General: In no apparent distress, Other (Intubated and sedated at this time) HEENT: Atraumatic, PERRLA, Mucous membr. moist/pink, EOMI, Sclerae nonicteric Neck: Supple, Other (Port placement on left), LAD Respiratory: Normal air movement, Crackles/rales, Rhonchi/gurgles Cardiovascular: Regular rate/rhythm, Normal S1 S2 Gastrointestinal: Normal bowel sounds, No tenderness Musculoskeletal: No tenderness Integumentary: No rashes Neurological: Other (Intubated and sedated at this time) Lymphatics: No axilla or inguinal lymphadenopathy - Studies Laboratory Data (last 24 hrs) 04/02/18 07:55: PT 13.9 H, INR 1.18, APTT 31.9 04/02/18 07:55: WBC 8.0, Hgb 8.7 L, Hct 27.2 L, Plt Count 84 L 04/02/18 07:55: Sodium 137, Potassium 4.9, BUN 52 H, Creatinine 5.50 H*, Glucose 248 H, Magnesium 2.1, Total Bilirubin 0.6, AST 52 H, ALT 8 L, Alkaline Phosphatase 54 Assessment and Plan - Problems (Diagnosis) (1) Respiratory failure Current Visit: Yes Status: Acute Plan: Acute respiratory failure most likely secondary to volume overload versus lung metastasis -patient intubated and sedated at this time. -pulmonology consulted. Appreciated recommendations at this time -will wean as tolerated. -patient to receive dialysis for volume overload. -x-ray in the morning and ABGs in the morning as well Qualifiers: Chronicity: acute (2) ESRD (end stage renal disease) Current Visit: Yes Status: Chronic Plan: End-stage renal disease most likely secondary to metastasis cancer. -nephrology consulted. Appreciated recommendations at this time -patient to get hemodialysis today here in the hospital -if patient has no improvement in his volume status patient can be consider for transfer to a higher level of care. -patient did also have a history of perinephric hematoma post renal biopsy 2 weeks ago at [facility]. -Will go ahead and get an abdominal CT here in the hospital. (3) Cancer Current Visit: Yes Status: Chronic Plan: Patient with extensive history of breast cancer treated with chemo and radiation was in remission for 2 years however developed metastasis disease in the past year and has been having chemo on radiation. Metastasis to lungs kidney and bone at this time. Chronic kidney disease secondary to the renal mass as well. Started on hemodialysis recently. If patient is not having any improvement patient can be transferred to [place] where her cancer doctor are for further workup - Plan Patient will be admitted to the ICU for further care of her respiratory failure. Patient needs hemodialysis today and has been ordered by nephrology. Will get abdominal CT and chest CT to rule out any other metastasis disease or hematoma. Will follow up with labs and cultures in am Discharge Plan: Other Plan to discharge in: Greater than 2 days - Advance Directives Does patient have a Living Will: No Does patient have a Durable POA for Healthcare: No - Code Status/Comfort Care Code Status Assessed: Yes Critical Care: Yes
[2018-04-02 17:13] LABS: Arterial Blood Carboxyhemoglob 2.6 % (0-1.5); Blood Gas Oxyhemoglobin 75.6 % (94-97); Blood O2 Saturation 78.2 % (92-98.5)
--- NOTE | 2018-04-02 17:48 | RAD REPORT ---
EXAM DESCRIPTION: RAD - Chest Single View - 04/02/2018 5:11 pm CLINICAL HISTORY: Intubation, respiratory distress COMPARISON: April 02 TECHNIQUE: AP portable chest image was obtained 1657 hours . FINDINGS: Tip of the endotracheal tube is mid aortic arch approximately T6 level. This is 2 cm above the valentino. NG tube extends below the diaphragm curled in the stomach. Position is similar to comparison. Bilateral pleural effusions are present. Bilateral interstitial and alveolar opacities are similar to the prior study. The alveolar infiltrate or edema pattern may be fractionally improved from earlier in the day. Right-sided dialysis catheter and left-sided Port-A-Cath remain in place. Heart size is u pper normal and stable. Upper lobe vasculature is slightly improved. No pneumothorax. IMPRESSION: Tubes and lines are in good position. Vascular engorgement and alveolar infiltrate or edema findings have not resolve but do appear fractio radha improved from the examination 3 hours earlier. Bilateral pleural effusions.
--- NOTE | 2018-04-02 20:47 | RAD REPORT ---
EXAM DESCRIPTION: CT - Head Brain Wo Cont - 04/02/2018 8:40 pm CLINICAL HISTORY: Headache COMPARISON: None. TECHNIQUE: Axial 5 mm thick images of the head were obtained without IV contrast. All CT scans are performed using dose optimization technique as appropriate and may include automated exposure control or mA/KV adjustment according to patient size. FINDINGS: No intracranial hemorrhage, mass, edema or shift of mid-line structures. No acute infarcti on changes seen. No abnormal extra-axial fluid collections. Ventricles are normal. No significant atr ophy or chronic ischemic change. Mastoid air cells are clear. Air-fluid level in the sphenoid sinus is present. Fluid levels are not u nusual in an intubated patient. No acute bony findings. IMPRESSION: Negative non-contrast CT head examination for acute finding. No evidence for metastatic disease.
--- NOTE | 2018-04-02 21:42 | RAD REPORT ---
EXAM DESCRIPTION: CT - Abdomen Wo Contrast - 04/02/2018 8:40 pm CLINICAL HISTORY: Shortness of breath, abdominal pain, breast cancer, intubation COMPARISON: None. TECHNIQUE: Axial [address] imaging of the abdomen was performed. No IV contrast was adm inistered. No oral contrast. All CT scans are performed using dose optimization technique as appropriate and may include automated exposure control or mA/KV adjustment according to patient size. FINDINGS: Lung base findings are detailed on separate CT chest report. NG tube is in good position curled in decompressed stomach. Liver size is normal. No focal liver lesions confirmed. Spleen is upper normal. No focal splenic abno rmality. No pancreatic abnormality. Cholecystectomy clips are present. No biliary tree dilatation. No hydronephrosis present. No obstructing or nonobstructing calculi. No acute findings seen in the ri ght kidney. The inferior margin of the left kidney is not well defined. There is stranding in the per inephric fat. Pyelonephritis or renal mass cannot be excluded. There is no trauma history to suspect renal hemorrhage. Stranding is present in the perinephric fat. No adrenal abnormality. No dilated bowel loops or bowel wall thickening. No free air or pneumatosis. No bulky lymphadenopathy . Numerous blastic or sclerotic foci air seen in the lumbar vertebrae in the imaged portions of the ile um Exam sensitivity is decreased when no IV contrast is administered. IMPRESSION: Numerous bony metastatic foci are present. No pending pathologic fracture. Abnormal appearance to the lower pole left kidney with poorly defined capsular margin and stranding i n the perinephric fat. Pyelonephritis would be possible. This could also be a renal mass. Hemorrhage is not excluded but would be less likely given the absence of trauma history. No liver metastatic disease seen on noncontrast imaging. Overall examination is limited in the absence of IV contrast.
--- NOTE | 2018-04-02 21:42 | RAD REPORT ---
EXAM DESCRIPTION: CT - Thorax Wo Con - 04/02/2018 8:40 pm CLINICAL HISTORY: Breast cancer history, end-stage renal disease, intubation, shortness of breath COMPARISON: Chest films same date TECHNIQUE: Axial 5 mm thick images of the chest were obtained without IV contrast. All CT scans are performed using dose optimization technique as appropriate and may include automated exposure control or mA/KV adjustment according to patient size. FINDINGS: Endotracheal tube is in good position with the tip mid aortic arch level. This is 2-3 cm a yadira the valentino. NG tube is well positioned in the stomach. Alveolar opacification is present through out much of the each upper lobe. This could be from volume overload, failure, pneumonia or neurogenic pulmonary edema. Similar alveolar edema pattern is present in each lower lobe along with atelectasis . Large bilateral pleural effusions are present. No pneumothorax. No abnormal mediastinal or hilar masses or lymphadenopathy seen. No gross aortic or pulmonary artery finding suspected. Mild cardiomegaly present without pericardial thickening or effusion. No chest wall mass or abnormal axillary lymphadenopathy. No pulmonary nodule or lymphadenopathy. No l ytic bone process seen. There are numerous punctate hyperdense or sclerotic foci scattered throughout the thoracic vertebrae. Given the history these are most likely metastatic. No pending pathologic fr acture. IMPRESSION: Large bilateral pleural effusions. There is alveolar edema throughout the lung crabtree fr om volume overload, failure, neurogenic pulmonary edema or less likely pneumonia. Endotracheal tube and NG tube in good position. Multiple sclerotic foci throughout the thoracic vertebrae most likely metastatic. No metastatic pulmo nary nodules or mediastinal lymphadenopathy seen.
[2018-04-03] MEDS: PIPER/TAZO/NS 3.375gm 3.375 GM/100 ML BAG IVPB SCH ×2 (01:12→05:42)
[2018-04-03] MEDS: ONDANSETRON 4 MG/2 ML VIAL IV PRN ×2 (02:12→10:43)
[2018-04-03 05:15] LABS: Arterial Blood Carboxyhemoglob 2.3 % (0-1.5); Blood Gas Oxyhemoglobin 97.3 % (94-97)
[2018-04-03 05:30] LABS: Absolute Lymphocytes (CBC) 0.5 K/uL (0.7-4.9); Absolute Monocytes 0.2 K/uL (0.1-1.3); Absolute Neutrophil 3.1 K/uL (1.8-8.0); Basophils % 0.5 % (0-1.3); Eosinophils % 0.1 % (0-4.4); Hematocrit 21.8 % (36.0-45.0); Lymphocytes % 12.2 % (15.3-44.8); MCH 32.7 pg (27.0-35.0); MCV 95.4 fL (80-100); MPV 9.1 fL (7.6-11.3); Monocytes % 4.6 % (3.3-12.3); RBC Red Blood Cell Count 2.29 M/uL (3.86-4.86)
[2018-04-03 05:35] LABS: Protime INR 1.2
[2018-04-03 05:50] LABS: Albumin 2.1 g/dL (3.4-5.0); Bilirubin Total 0.8 mg/dL (0.2-1.0); Phosphorus 3.1 mg/dL (2.5-4.9); Potassium 3.7 mmol/L (3.5-5.1); Protein, Total 6.5 g/dL (6.4-8.2)
[2018-04-03] MEDS: INSULIN -REGULAR HUMAN 50 UNIT/0.5 ML ML SQ SCH ×4 (07:30→20:20)
[2018-04-03] MEDS: ENOXAPARIN 40 MG/0.4 ML SQ SCH (09:00)
[2018-04-03] MEDS: FAMOTIDINE 20 MG/2 ML VIAL IV SCH (09:22)
--- NOTE | 2018-04-03 09:50 | CON ---
Date of Consultation: 04/02/2018 Chief Complaint: End-stage renal disease, the patient is dialysis dependent. She was initiated on dialysis in [facility]. She was recently discharged from [facility] and was to resume dialysis at home. Today, she was scheduled to have dialysis at home , although she came to the hospital because of severe shortness of breath. History: She is a 53-year-old female with significant past medical history of breast cancer, which was removed 2 years ago. The patient underwent chemotherapy and radiation. The patient finished chemotherapy and radiation. She was found to have metastatic disease early this year and resume chemotherapy and radiation. The patient was found to have metastatic disease . The patient remains intubated, ventilated, and is admitted to ICU. Review of Systems: Unobtainable due to the patient's condition. Past Medical History: Right breast surgical removal of lump and lymph node, breast cancer metastasized status post radiation and chemotherapy was stopped in March 2018 due to complication, acute kidney disease due to HUS, patient dialysis dependent likely has end-stage renal disease, COPD, malnutrition, deconditioning, hysterectomy, , exploratory laparotomy, cholecystectomy, status post Jeremias right IJ. Family History: Mother, diabetes and cancer, she had a breast cancer. Father, hypertension, heart disease. Social History: Former smoker. Denies alcohol, illicit drugs. Physical Examination: Vital Signs: Blood pressure 141/95, heart rate 106, temperature 99, SpO2 100%. Eyes: Anicteric sclerae. EOMI. Ears, Nose, Mouth, and Throat: Oral mucosa moist. No pallor. Neck: Supple. No bruits. Lungs: Crackles bilaterally, rhonchi. Few wheezes heard. Cardiovascular: S1, S2. No pericardial friction rub. Abdomen: Soft, nontender. No rebound. No guarding. Extremities: No edema. No clubbing. No cyanosis. Neurological: Moving extremity and lethargic. Skin: Warm and dry. No skin rashes. Laboratory Data: BUN 52, creatinine 5.5, potassium 4.9, sodium 137, glucose 248 , magnesium 2.1, total bilirubin 0.6. WBC 8.0, hemoglobin 8.7, platelet count 84,000. PT 13.9, INR 1.18, APTT 31.9. Impression And Plan: 1. End-stage renal disease, the patient is dialysis dependent, hypoxemic respiratory failure, the patient is intubated. The patient will have dialysis with ultrafiltration to control volemia, provide management for respiratory failure with congestive heart failure diastolic dysfunction. Chest x-ray showed bilateral pleural effusion, bilateral interstitial, and alveolar opacities present on x-ray. The patient may require Pulmonary consultation and treatment with antibiotics for possible pneumonia. The patient will require blood cultures. 2. Hypertension. Blood pressure in acceptable control. Monitor blood pressure closely during dialysis. 3. Anemia. The patient may need blood transfusion. 4. Metastatic cancer, malnutrition. Recommendation is for nutrition with TPN from primary team. DEBORAH/MODBarb Voice ID: [id number] Report ID: [id number] SAM
--- NOTE | 2018-04-03 10:35 | P.PN ---
Subjective Date of Service: 04/03/18 Primary Care Provider: In [place] Chief Complaint: Respiratory failure Subjective: Improving (Patient is doing much better she is alert responsive cooperative wants to be extubated as been on a pressure support of 5 trial for the past hr) Review of Systems is unable to be obtained Physical Examination - Vital Signs Temperature: 97.4 F Blood Pressure: 116/80 Pulse: 77 Respirations: 14 Pulse Ox (%): 100 - Physical Exam General: Alert, Cooperative Respiratory: Clear to auscultation bilaterally Cardiovascular: No edema, Normal S1 S2 Assessment & Plan - Problems (Diagnosis) (1) Respiratory failure Current Visit: Yes Status: Acute Plan: Patient admitted with respiratory failure she has end-stage renal disease on dialysis and congestive heart failure patient's ejection fraction is poor patient is anemic thrombocytopenic and benefit from transfusion no evidence of a DVT also been a significant decline in her platelet count Qualifiers: Chronicity: acute
--- NOTE | 2018-04-03 11:12 | RAD REPORT ---
EXAM DESCRIPTION: RAD - Chest Single View - 04/03/2018 9:37 am CLINICAL HISTORY: Respiratory failure. Chest pain. COMPARISON: Chest Single View dated 04/02/2018; Chest Single View dated 04/02/2018; Chest Single View da liam 04/02/2018; CHEST SINGLE VIEW dated 01/27/2014 FINDINGS: Portable technique limits examination quality. Ill-defined opacity the left lung base and trace bilateral pleural fluid is noted, likely representin g aspiration or pneumonia. The heart is normal in size. Tip of the ET tube is above the valentino. Enter ic tube descends into the abdomen. Right-sided venous catheter its tip in the SVC.Left-sided port cat heter has tip in the SVC.
--- NOTE | 2018-04-03 13:04 | P.PN ---
Subjective Date of Service: 04/03/18 Primary Care Provider: In [place] Chief Complaint: Respiratory failure doing better, extubated Physical Examination - Vital Signs Temperature: 97.4 F Blood Pressure: 133/81 Pulse: 82 Respirations: 15 Pulse Ox (%): 100 - Physical Exam General: Alert, In no apparent distress HEENT: Atraumatic, PERRLA, EOMI Neck: Supple, JVD not distended Respiratory: Clear to auscultation bilaterally, Normal air movement Cardiovascular: Regular rate/rhythm, Normal S1 S2 Gastrointestinal: Normal bowel sounds, No tenderness Musculoskeletal: No tenderness Integumentary: No rashes Neurological: Normal speech, Normal tone, Normal affect Lymphatics: No axilla or inguinal lymphadenopathy - Studies Medications List Reviewed: Yes Assessment And Plan - Current Problems (Diagnosis) (1) Breast cancer Current Visit: Yes Status: Acute Qualifiers: Breast location: unspecified site of breast Estrogen receptor status: positive Patient sex: female Laterality: left Qualified Code(s): C50.912 - Malignant neoplasm of unspecified site of left female breast; Z17.0 - Estrogen receptor positive status [ER+] (2) Respiratory failure Current Visit: Yes Status: Acute Qualifiers: Chronicity: acute (3) ESRD (end stage renal disease) Current Visit: Yes Status: Chronic - Plan --cont HD --1 U PRBC --May DC soon
[2018-04-03] MEDS ORDERED: NA CHLORIDE 0.9% 250 ML ONE (15:33)
[2018-04-03] MEDS ORDERED: NA CHLORIDE 0.9% 250 ML IV SCH (16:00)
--- NOTE | 2018-04-03 21:15 | PN ---
Date of Progress Note: 04/03/2018 Chief Complaint: End-stage renal disease on dialysis. History Of Present Illness: The patient presented to the hospital and was found to have respiratory failure, is intubated and ventilated. Stat dialysis was ordered for volume control and metabolic clearance. The patient will have dialysis today for metabolic clearance and to obtain ultrafiltration to control volemia. The patient has history of congestive heart failure with systolic dysfunction. Review of Systems: The patient is intubated. Review of systems is unobtainable. Physical Examination: Lungs: Crackles bilaterally at bases. Heart: S1, S2. Abdomen: Soft, benign. Extremities: Peripheral edema present. Imaging Studies: Chest x-ray showed ill-defined opacity of the left lung and trace bilateral pleural fluid is noted, likely representing aspiration pneumonia. Laboratory Data: Sodium 141, potassium 3.7, chloride 103, CO2 24, BUN 37, creatinine 3.4, glucose 89, calcium 7.3. Impression And Plan: 1. Severe dyspnea, hypoxemic respiratory failure. The patient is on vent. Continue supportive measures with dialysis daily to control volemia. The patient has severe systolic dysfunction, congestive heart failure exacerbation with some fluid overload. The patient will have dialysis for metabolic clearance and to control volemia. 2. Pneumonia, antibiotics per primary team. 3. Urinary tract infection. Urine cultures show gram-negative rods, mixed dalia. Sensitivity is pending. Continue broad-spectrum antibiotics to cover gram-negative infection. Plan is to consult infectious disease. 4. Possible aspiration pneumonia, Pulmonary Service is on the case. I spent total 36 min including 26 min to coordinate care plan. DEBORAH/BIANCA Voice ID: [id number] Report ID: [id number] SAM
[2018-04-04] MEDS ORDERED: PIPERACIL/TAZO 2.25 GM VIAL IV ONE (00:27)
[2018-04-04] MEDS ORDERED: NA CHLORIDE 0.9% 50 ML ONE (00:28)
[2018-04-04] MEDS: PIPER/TAZO/NS 2.25gm 2.25 GM/50 ML BAG IVPB SCH ×3 (00:36→18:19)
[2018-04-04 05:59] LABS: Albumin 2.1 g/dL (3.4-5.0); Bilirubin Total 0.8 mg/dL (0.2-1.0); Phosphorus 1.3 mg/dL (2.5-4.9); Potassium 3.6 mmol/L (3.5-5.1); Protein, Total 6.3 g/dL (6.4-8.2)
[2018-04-04 06:24] LABS: Absolute Lymphocytes (CBC) 0.4 K/uL (0.7-4.9); Absolute Monocytes 0.2 K/uL (0.1-1.3); Absolute Neutrophil 3.3 K/uL (1.8-8.0); Basophils % 0.4 % (0-1.3); Eosinophils % 0.8 % (0-4.4); Hematocrit 24.3 % (36.0-45.0); Lymphocytes % 10.4 % (15.3-44.8); MCH 32.6 pg (27.0-35.0); MPV 9.1 fL (7.6-11.3); Monocytes % 5.1 % (3.3-12.3); RBC Red Blood Cell Count 2.61 M/uL (3.86-4.86)
[2018-04-04 07:07] LABS: Protime INR 1.22
[2018-04-04] MEDS: INSULIN -REGULAR HUMAN 50 UNIT/0.5 ML ML SQ SCH ×2 (07:30→11:30)
--- NOTE | 2018-04-04 08:09 | RAD REPORT ---
EXAM DESCRIPTION: US - Renal Ultrasound-Complete - 04/03/2018 11:01 pm CLINICAL HISTORY: Urinary tract infection, flank pain, history of recent renal biopsy at outside [facility] COMPARISON: None. FINDINGS: The right kidney measures 9.0 x 3.9 x 3.9 cm.. The left kidney measures 9.6 x 3.9 x 5.1 c m. Renal cortical thickness and echogenicity are normal. No hydronephrosis or suspicious renal mass. Trace amount of free fluid is present near the inferior margin of the spleen. Volume is not considere d significant. Adjacent to the lower pole left kidney there is a 4.0 x 1.2 centimeter hypoechoic george ection. Given the provided history, this is most likely a small quantity of old subcapsular or perica psular hemorrhage from the renal biopsy. This volume is not considered abnormal. Bladder is contracted, probably around a Cote catheter. No further assessment can be made. IMPRESSION: No hydronephrosis or suspicious renal mass. Old hemorrhage at the lower pole left kidney is present. This volume is not considered excessive for recent biopsy. No other significant findings.
[2018-04-04 08:34] LABS: Urine White Blood Cell Casts OK
[2018-04-04 08:35] LABS: Blood Morphology Comment NOT SEEN (NOT SEEN); Platelet Estimate DECR
[2018-04-04] MEDS ORDERED: POTASSIUM PHOS 10 MM in NA CHLORIDE 0.9% 250 ML IV ONE (09:00)
[2018-04-04] MEDS ORDERED: FAMOTIDINE 20 MG/2 ML VIAL IV SCH (09:00)
[2018-04-04] MEDS ORDERED: HEPARIN 500 UNIT/5 ML SYR IV SCH (13:00)
[2018-04-04] MEDS ORDERED: FENTANYL CITR 100 MCG/2 ML IV PRN (13:38)
[2018-04-04] MEDS ORDERED: ACETAMINOPHEN 500 MG TAB PO PRN (13:40)
[2018-04-04] MEDS ORDERED: ONDANSETRON 4 MG/2 ML VIAL IV PRN (13:40)
[2018-04-04] MEDS ORDERED: NA CHLORIDE 0.9% 1,000 ML IV SCH (14:00)
--- NOTE | 2018-04-04 14:05 | RAD REPORT ---
EXAM DESCRIPTION: RAD - Chest Single View - 04/04/2018 1:34 pm CLINICAL HISTORY: Shortness of breath COMPARISON: April 03 TECHNIQUE: AP portable chest image was obtained 1323 hours . FINDINGS: Endotracheal tube and nasogastric tube have been removed. Left-sided Port-A-Cath and right -sided dialysis catheter remain in place. Small bilateral pleural effusions are present. Patchy lung base opacification in each base is more li hong atelectasis than infiltrate. No vascular engorgement. Heart and vasculature are normal. No pneum othorax. No gross bony abnormality seen. No acute aortic findings suspected. IMPRESSION: Bilateral lung base pleural effusions with patchy lung base opacification. Findings are not significantly different from comparison. ET tube and NG tube have been removed.
[2018-04-04] MEDS: DOCUSATE NA 100 MG CAP PO SCH ×2 (15:51→21:00)
--- NOTE | 2018-04-04 17:29 | P.PN ---
Subjective Date of Service: 04/04/18 Primary Care Provider: In [place] Chief Complaint: Respiratory failure Doing fair, wants to go home Physical Examination - Vital Signs Temperature: 98 F Blood Pressure: 139/80 Pulse: 89 Respirations: 21 Pulse Ox (%): 100 - Physical Exam General: Alert, In no apparent distress HEENT: Atraumatic, PERRLA, EOMI Neck: Supple, JVD not distended Respiratory: Clear to auscultation bilaterally, Normal air movement Cardiovascular: Regular rate/rhythm, Normal S1 S2 Gastrointestinal: Normal bowel sounds, No tenderness Musculoskeletal: No tenderness Integumentary: No rashes Neurological: Normal speech, Normal tone, Normal affect Lymphatics: No axilla or inguinal lymphadenopathy - Studies Medications List Reviewed: Yes Assessment And Plan - Current Problems (Diagnosis) (1) Breast cancer Current Visit: Yes Status: Acute Qualifiers: Breast location: unspecified site of breast Estrogen receptor status: positive Patient sex: female Laterality: left Qualified Code(s): C50.912 - Malignant neoplasm of unspecified site of left female breast; Z17.0 - Estrogen receptor positive status [ER+] (2) Respiratory failure Current Visit: Yes Status: Acute Qualifiers: Chronicity: acute (3) ESRD (end stage renal disease) Current Visit: Yes Status: Chronic - Plan She states that she got blood cell low and renal failure with Gemzar, 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 No dysuria(oligouria), ucx G neg rods pending sens PLANS --cont HD --will consult ID --Repeat procalcintonin --May DC soon
[2018-04-05] MEDS: PIPER/TAZO/NS 2.25gm 2.25 GM/50 ML BAG IVPB SCH ×3 (00:49→17:00)
--- NOTE | 2018-04-05 01:40 | PN ---
Date of Progress Note: 04/04/2018 Chief Complaint: Acute on chronic kidney injury. Interval History: The patient is dialysis dependent. She presented to the hospital with respiratory failure, was intubated and ventilated. Today, the patient is extubated. The patient was found to have positive urine culture for gram-negative rods growth and there is possible urinary tract infection. The patient is oliguric. She was started Zosyn and final urine culture is pending. I consulted Dr. Heller for complicated urinary tract infection. The patient has history of multiple medical problems including history of congestive heart failure with severe systolic dysfunction. She required daily dialysis and today she is refusing dialysis, although she wants to be dialyzed first thing in the morning. The patient had previously done chemotherapy. She is immunocompromised and I discussed with her that she needs to be ruled out for severe urinary tract infection, and since culture is not finalized, antibiotic has been used as empiric coverage and she needs to be evaluated for complicated severe urinary tract infection and she was started on antibiotic for possible aspiration pneumonia as well. Review of Systems: General: The patient denies fever, denies chills. Lungs: Crackles bilaterally. Heart: S1, S2. Abdomen: Soft, benign. Extremities: Edema present in both legs. Laboratory Data: Hemoglobin 8.5, WBC 3.9, platelet count is 54,000. Chemistries showed sodium 140, potassium 3.6, chloride 104, CO2 30, BUN 24, creatinine 2.9, calcium 7.4, phosphorus 1.3, magnesium 2.0. Impression And Plan: 1. Acute on chronic kidney injury. The patient is dialysis dependent and she has end-stage renal disease due to severe acute kidney injury complicated by cardiorenal syndrome, apparently has history of HUS and she will fu with her [facility] [employer] for HUS treatment. Continue dialysis for metabolic clearance . The patient is refusing dialysis today. She wants to be dialyzed tomorrow. 2. Hypophosphatemia. The patient was scheduled to have IV potassium phosphate replacement. She refused infusion. Diet will be changed to regular diet to prevent hypophosphatemia. 3. Urinary tract infection. Continue Zosyn and case was discussed with consultant nurse and I consulted Dr. Heller for further recommendation. 4. Possible aspiration pneumonia. Continue antibiotics. I spent total 36 min including 26 min to coordinate care plan. EB/MODL Voice ID: [id number] Report ID: [id number] SAM
[2018-04-05] MEDS: guaiFENesin 100 MG/5 ML UCUP PO PRN ×2 (03:43→15:22)
[2018-04-05 06:36] LABS: Absolute Lymphocytes (CBC) 0.5 K/uL (0.7-4.9); Absolute Monocytes 0.2 K/uL (0.1-1.3); Absolute Neutrophil 3.3 K/uL (1.8-8.0); Basophils % 0.5 % (0-1.3); Eosinophils % 1.2 % (0-4.4); Hematocrit 26.1 % (36.0-45.0); Lymphocytes % 11.3 % (15.3-44.8); MCH 32.1 pg (27.0-35.0); MCV 94.6 fL (80-100); MPV 8.9 fL (7.6-11.3); RBC Red Blood Cell Count 2.76 M/uL (3.86-4.86)
[2018-04-05 06:50] LABS: Protime INR 1.12
[2018-04-05 06:52] LABS: Albumin 2.3 g/dL (3.4-5.0); Magnesium 2.1 mg/dL (1.8-2.4); Potassium 3.7 mmol/L (3.5-5.1); Protein, Total 6.8 g/dL (6.4-8.2)
[2018-04-05 07:18] VITALS: BMI 16.7
[2018-04-05] MEDS ORDERED: POTASSIUM PHOS IN 0.9 % NACL 15 MMOL/250 ML BAG IV ONE (07:31)
[2018-04-05] MEDS ORDERED: POTASS/SODIUM PHOSPHATE 1 PKT POWD.PACK PO ONE (08:00)
--- NOTE | 2018-04-05 08:31 | ECHO ---
HEIGHT: 5 ft 3 in WEIGHT: 94 lb 6.4 oz DATE OF STUDY: 04/02/[address]: 2-DIMENSIONAL: YES M.MODE: YES DOPPLER: YES COLOR FLOW: YES TDS: NO PORTABLE: YES DEFINITY: NO BUBBLE STUDY: NO DIAGNOSIS: RESPIRATORY FAILURE CARDIAC HISTORY: CATHERIZATION: NO SURGERY: NO PROSTHETIC VALVE: NO PACEMAKER: NO MEASUREMENTS (cm) DIASTOLIC (NORMALS) SYSTOLIC (NORMALS) IVSd 1.0 (0.6-1.2) LA Diam 3.0 (1.9-4.0) LVEF 14% LVIDd 4.1 (3.5-5.7) LVIDs 3.9 (2.0-3.5) %FS 6% LVPWd 0.9 (0.6-1.2) Ao Diam 2.9 (2.0-3.7) 2 DIMENSIONAL ASSESSMENT: RIGHT ATRIUM: NORMAL LEFT ATRIUM: NORMAL RIGHT VENTRICLE: NORMAL LEFT VENTRICLE: NORMAL SIZE AND FUNCTION TRICUSPID VALVE: NORMAL MITRAL VALVE: NORMAL PULMONIC VALVE: NORMAL AORTIC VALVE: NORMAL PERICARDIAL EFFUSION: SMALL AORTIC ROOT: NORMAL LEFT VENTRICULAR WALL MOTION: SEVERE GLOBAL HYPOKINESIS. DOPPLER/COLOR FLOW: MILD TRICUSPID REGURGITATION. COMMENTS: SEVERE GLOBAL HYPOKINESIS- EJECTION FRACTION 20%. MILD TRICUSPID REGURGITATION. MILD PULMONARY HYPERTENSION- RIGHT VENTRICULAR SYSTOLIC PRESSURE 45 MMHG. SMALL PERICARDIAL EFFUSION. TECHNOLOGIST: NIGEL HIGH
[2018-04-05 09:00] LABS: Blood Morphology Comment NOT SEEN (NOT SEEN); Platelet Estimate DECR
[2018-04-05] MEDS: DOCUSATE NA 100 MG CAP PO SCH ×2 (09:00→21:00)
[2018-04-05] MEDS ORDERED: FAMOTIDINE 20 MG/2 ML VIAL IV SCH (09:00)
--- NOTE | 2018-04-05 15:25 | CON ---
INFECTIOUS DISEASE CONSULT. History Of Present Illness: This is a 53-year-old female I was consulted for urinary tract infection secondary to Enterobacter cloacae more than 100,000. The patient is on dialysis for about a month. Now, she has significant history of breast cancer for which she is getting chemotherapy and radiatio n therapy. First time it was diagnosed in 2013. This year, she has been going through treatment for stage IV cancer. The patient denies any headache, nausea, vomiting, chest pain, abdominal pain, con stipation, or diarrhea. Past Medical History: Includes breast cancer, end-stage renal disease, right breast lumpectomy, hyst erectomy. Social History: Tobacco positive. Alcohol negative. Family History: Noncontributory. Medications: Currently, the patient is getting Zosyn. Allergies: CIPRO AND SULFA DRUGS. Review of Systems: A 10-point review was performed. Physical Examination: General: This is a 53-year-old female, sitting in easy chair. Vital Signs: Temperature 98.8, pulse 92, respiration 18, blood pressure 152/90. HEENT: Unremarkable. Neck: Supple. Lungs: Bilateral pleural effusion with patchy lung base opacification. Lungs examination shows basa l crackles. Heart: S1, S2. Regular. Abdomen: Soft, nontender. Bowel sounds positive. Extremities: No edema. Muscle wasting noted. Laboratory Data: Lab data shows WBC 4000, hemoglobin 8.9, platelets are 52. Chemistry shows sodium 142, potassium 3.7, chloride 105, bicarb 27, BUN 4.2, glucose is 94. Micro data shows urine culture growing Enterobacter cloacae more than 100,000 resistant to everything except sulfa, tetracycline and amikacin. Assessment And Plan: This is a 53-year-old female with multiple medical problems including breast ca ncer on chemotherapy possibly causing her immune system to be affected. The patient also have bilate ral pleural effusion, small effusion and possible infiltrate which we will recommend to treat. Urine is growing Enterobacter cloacae more than 100,000. As per patient, she does not produce much urine. Most likely it is concentrated and contamination from fecal material. At this time, we will not re commend to treat this infection, but just monitor patient and treat her for pneumonitis and infiltrat es in her lungs. Continue Zosyn. Can be switched to Augmentin on discharge. We will follow the pat ient closely. Thank you Dr. Blackburn for consult. JEFFREY/BIANCA Voice ID: [id number] Report ID: [id number]
[2018-04-05 16:11] VITALS: O2SAT 100
--- NOTE | 2018-04-05 16:34 | P.DS ---
Admission Date: 04/02/18 Discharge Date: 04/05/18 Primary Care Provider: Radha Mahajan Disposition: ROUTINE DISCHARGE Discharge Condition: GOOD Reason for Admission: Respiratory failure - Problems (1) Respiratory failure Onset Date: 04/05/18 Current Visit: Yes Status: Acute Qualifiers: Chronicity: acute (2) Pneumonia Current Visit: Yes Status: Acute Qualifiers: Pneumonia type: due to unspecified organism Laterality: bilateral (3) Breast cancer Onset Date: 04/05/18 Current Visit: Yes Status: Acute Qualifiers: Breast location: unspecified site of breast Estrogen receptor status: positive Patient sex: female Laterality: left Qualified Code(s): C50.912 - Malignant neoplasm of unspecified site of left female breast; Z17.0 - Estrogen receptor positive status [ER+] (4) ESRD (end stage renal disease) Onset Date: 04/05/18 Current Visit: Yes Status: Chronic (5) CHF (congestive heart failure) Current Visit: Yes Status: Chronic Qualifiers: Heart failure type: systolic Heart failure chronicity: acute on chronic Qualified Code(s): I50.23 - Acute on chronic systolic (congestive) heart failure Brief History of Present Illness: This is a 53-year-old female with significant past medical history of breast cancer which was removed 2 years ago patient has been since on chemo and radiation. Had finished her chemo and radiation and negative x3. However developed metastatic disease this year and has been back on chemo and radiation therapy. 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 Patient was recently at [facility] and was discharged from there after having a renal failure and was started on dialysis there. Patient was set up with home dialysis and was discharged 2 days ago. The last time she had dialysis was on Thursday. Patient came to the ER for complaining of having some shortness of breath that has been going on for past couple of days and has gotten progressively worse. Patient stated that this morning she was not able to catch her breath and thus decided to come to the ER. Most of the information was collected by the ER physician as patient was already intubated by the time I saw the patient in the ER. Hospital Course: She was intubated en route. She was treated with diuresis and IV abx. Nephrology was consulted, and HD was continued. ECHO revealed EF 20%. She was extubated without complications. She is doing much better, only complaint now is mild cough, she attributes it to the intubation. However her CT chest shows some pneumonia, Dr Arnold who is ID specialist recommends PO augmentin. She is discharged home in stable condition and f/u her oncologist and Nephrology at [place]. Vital Signs/Physical Exam: Temp Pulse Resp BP Pulse Ox 98.3 F 86 18 158/95 H 100 04/05/18 13:00 04/05/18 13:00 04/05/18 13:00 04/05/18 13:00 04/05/18 13:00 General: Alert, In no apparent distress HEENT: Atraumatic, PERRLA, EOMI Neck: Supple, JVD not distended Respiratory: Clear to auscultation bilaterally, Normal air movement Cardiovascular: Regular rate/rhythm, Normal S1 S2 Gastrointestinal: Normal bowel sounds, No tenderness Musculoskeletal: No tenderness Integumentary: No rashes Neurological: Normal speech, Normal tone, Normal affect Lymphatics: No axilla or inguinal lymphadenopathy Laboratory Data at Discharge: WBC 4.0 K/uL (4.3-10.9) L 04/05/18 06:04 Hgb 8.9 g/dL (12.0-15.0) L 04/05/18 06:04 Hct 26.1 % (36.0-45.0) L 04/05/18 06:04 Plt Count 52 K/uL (152-406) L 04/05/18 06:04 PT 13.2 SECONDS (9.5-12.5) H 04/05/18 06:04 INR 1.12 04/05/18 06:04 APTT 27.2 SECONDS (24.3-36.9) 04/05/18 06:04 Sodium 142 mmol/L (136-145) 04/05/18 06:04 Potassium 3.7 mmol/L (3.5-5.1) 04/05/18 06:04 BUN 37 mg/dL (7-18) H 04/05/18 06:04 Creatinine 4.20 mg/dL (0.55-1.3) H D 04/05/18 06:04 Glucose 94 mg/dL (74-106) 04/05/18 06:04 Phosphorus 1.0 mg/dL (2.5-4.9) L 04/05/18 06:04 Magnesium 2.1 mg/dL (1.8-2.4) 04/05/18 06:04 Total Bilirubin 1.0 mg/dL (0.2-1.0) 04/05/18 06:04 AST 37 U/L (15-37) 04/05/18 06:04 ALT 8 U/L (12-78) L 04/05/18 06:04 Alkaline Phosphatase 52 U/L (45-117) 04/05/18 06:04 Home Medications: Albuterol Sulfate [Ventolin Hfa] 1 puff IH Q6HP PRN 04/03/18 Bumetanide [Bumex*] 1 mg PO BID 04/03/18 Carvedilol 12.5 mg PO BID 04/03/18 Folic Acid/Vitamin B Comp W-C [Nephro-Uriel Tablet] 0.8 mg PO DAILY 04/03/18 Sevelamer Carbonate 800 mg PO TID 04/03/18 traMADol HCL [Ultram*] 2 tab PO BID 04/03/18 Amox/Clavulanate [Augmentin 500 mg Tab*] 500 mg PO BID #28 tab 04/05/18 Docusate [Colace Cap*] 100 mg PO BID cap 04/05/18 guaiFENesin [Robitussin 100MG/5ML*] 5 ml PO QID PRN #200 ml 04/05/18 New Medications: Amox/Clavulanate [Augmentin 500 mg Tab*] 500 mg PO BID #28 tab guaiFENesin [Robitussin 100MG/5ML*] 5 ml PO QID PRN #200 ml PRN Reason: Cough Diet: Renal Activity: Ad zhang Time spent managing pt's care (in minutes): 35
[2018-04-05] MEDS ORDERED: HEPARIN SOD 100 UNIT/ML FLUSH IV PRN (20:18)
[2018-04-05 20:27] VITALS: BP 152/90; TEMP 99.2
[2018-04-06 03:30] LABS: HBsAG Nonreactive (Nonreactive)
--- NOTE | 2018-04-06 04:54 | PN ---
Date of Progress Note: 04/05/2018 Chief Complaint: Acute on chronic kidney injury. History Of Present Illness: The patient is dialysis dependent. She presented to the hospital with r espiratory failure, was intubated, ventilated, and received stat dialysis for ultrafiltration to cont rol volemia. The patient has congestive heart failure with systolic dysfunction. The patient was st arted on antibiotics for possible aspiration pneumonia. Urinalysis showed gram-negative rods, and sh kassandra is undergoing workup for urinary tract infection and is on broad-spectrum antibiotics. Review of Systems: She is feeling better. She was extubated today. She received dialysis to obtain metabolic clearance . Physical Examination: Lungs: Clear to auscultation bilaterally. Heart: S1, S2. Abdomen: Soft, benign. Extremities: Minimal edema. Impression And Plan: 1.Acute on chronic kidney injury. The patient has end-stage renal disease due to advanced chronic k idney disease with acceleration by acute kidney injury. 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 She has history of previous chemotherapy. She is immunocompromised host and w as found to have gram-negative rods on the urine culture. The patient will continue antibiotics acco rding to sensitivity. 2.Hypophosphatemia. The patient received replacement. The patient was taken off binders because of hypophosphatemia. 3.Urinary tract infection. As per recommendation from Infection Disease. 4.Pneumonia, possible aspiration. Continue antibiotics. Further workup for aspiration pneumonia an d dysphagia per primary team. EB/MODL Voice ID: [id number] Report ID: [id number]
== END 2018-04-05 21:00 | disposition home or self-care (01) | DRG 208 ==
LOC: ER 07:49 → ERHOLD 08:28 → 3RD-ICU 12:16 → 4TH 04-05 01:39
PROVIDERS: ADMIT Family Medicine; ATTEND Internal Medicine Hematology & Oncology
PROC: 5A1945Z Respiratory Ventilation, 24-96 Consecutive Hours (ICD-10-PCS; principal; 2018-04-02)
PROC: 0BH17EZ Insertion of Endotracheal Airway into Trachea, Via Natural or Artificial Opening (ICD-10-PCS; 2018-04-02)
PROC: 5A1D70Z Performance of Urinary Filtration, Intermittent, Less than 6 Hours Per Day (ICD-10-PCS; 2018-04-02)
PROC: 30233N1 Transfusion of Nonautologous Red Blood Cells into Peripheral Vein, Percutaneous Approach (ICD-10-PCS; 2018-04-03)
DX: J96.01 Acute respiratory failure with hypoxia (principal); N18.6 End stage renal disease; J18.9 Pneumonia, unspecified organism; I50.23 Acute on chronic systolic (congestive) heart failure; N17.9 Acute kidney failure, unspecified; N39.0 Urinary tract infection, site not specified; C79.51 Secondary malignant neoplasm of bone; I13.2 Hypertensive heart and chronic kidney disease with heart failure and with stage 5 chronic kidney disease, or end stage renal disease; C78.00 Secondary malignant neoplasm of unspecified lung; C79.00 Secondary malignant neoplasm of unspecified kidney and renal pelvis; E46 Unspecified protein-calorie malnutrition; E83.39 Other disorders of phosphorus metabolism; D64.9 Anemia, unspecified; D69.6 Thrombocytopenia, unspecified; B96.89 Other specified bacterial agents as the cause of diseases classified elsewhere; C50.912 Malignant neoplasm of unspecified site of left female breast; Z17.0 Estrogen receptor positive status [ER+]; Z99.2 Dependence on renal dialysis; Z88.1 Allergy status to other antibiotic agents; Z88.2 Allergy status to sulfonamides
CPT/HCPCS: 31500; 36415; 51702; 70450; 71045; 71250; 74150; 76770; 80048; 80053; 80076; 80202; 81003; 82550; 82553; 82805; 82962; 83605; 83735; 83880; 84100; 84132; 84145; 84439; 84443; 84484; 85014; 85018; 85025; 85610; 85730; 86704; 86706; 86803; 86850; 86900; 86901; 86922; 87040; 87077; 87086; 87088; 87186; 87340; 90935; 93005; 93306; 93970; 94002; 94003; 99284; 99291; J0330; J0696; J1642; J2250; J2405; J2543; J3010; J3370; J7030; P9016

== ENCOUNTER 2018-04-07 02:44 | Inpatient (IN) | payer OTHER ==
[2018-04-07 03:23] LABS: Arterial Blood Carboxyhemoglob 2.3 % (0-1.5); Blood O2 Saturation 98.6 % (92-98.5)
[2018-04-07] MEDS ORDERED: ALBUTEROL 2.5 MG/3 ML NEB SOL ONE ×2 (03:26→03:46)
[2018-04-07] MEDS ORDERED: IPRATROPIUM BROM 0.5MG/2.5ML ONE ×2 (03:26→03:46)
[2018-04-07] MEDS ORDERED: METOPROLOL TARTRATE 5 MG/5 ML INJ IV ONE (03:27)
[2018-04-07 03:59] LABS: Hematocrit 30.3 % (36.0-45.0); MPV 10.2 fL (7.6-11.3)
[2018-04-07 04:05] LABS: Absolute Lymphocytes (CBC) 1.4 K/uL (0.7-4.9); Absolute Monocytes 0.4 K/uL (0.1-1.3); Absolute Neutrophil 6.7 K/uL (1.8-8.0); Basophils % 0.7 % (0-1.3); Eosinophils % 1.3 % (0-4.4); Lymphocytes % 16.3 % (15.3-44.8); MCH 32.5 pg (27.0-35.0); Monocytes % 5.1 % (3.3-12.3); RBC Red Blood Cell Count 3.06 M/uL (3.86-4.86)
[2018-04-07 04:23] LABS: Protime INR 1.08
--- NOTE | 2018-04-07 04:27 | ER ---
Nurse's Notes [facility] Name: Renate Gold Age: 53 yrs Sex: Female : 1965 Arrival Date: 04/07/2018 Time: 02:52 Bed 2 Private MD: Diagnosis: Acute dyspnea. Volume overload. Chronic renal disease.. COPD Presentation: 04/07 02:44 Presenting complaint: EMS states: that they were toned for pt in resp distress. Pt with fc sats of 80% on roomair. Pt is also complaining of chest pain, shortness of breath and nausea. Heart rate 130's and resp rate in the 30's. Transition of care: patient was not received from another setting of care. Onset of symptoms was April 06, 2018. Risk Assessment: Do you want to hurt yourself or someone else? Patient reports no desire to harm self or others. Initial Sepsis Screen: Does the patient meet any 2 criteria? RR > 20 per min. HR > 90 bpm. Does the patient have a suspected source of infection? Yes: Productive cough/pneumonia. Care prior to arrival: Medication(s) given: zofran 4 mg, IV initiated. 22 GA, in the left hand, Oxygen administered. via CPAP or BiPAP. 02:44 Method Of Arrival: EMS: [facility] 02:44 Acuity: RICH 2 fc Historical: - Allergies: 03:04 Ciprofloxacin; fc 03:04 Compazine; fc 03:04 Prochlorperazine Maleate; fc 03:04 Sulfa (Sulfonamide Antibiotics); fc - Home Meds: 03:04 tramadol 50 mg Oral tab 2 tabs twice a day [Active]; guaifenesin 100 mg/5 mL oral liqd fc qid prn [Active]; sevelamer carbonate 800 mg Oral tab 1 tab 3 times per day [Active]; Nephro-Uriel 0.8 mg oral tab daily [Active]; docusate sodium 100 mg Oral cap 1 cap 2 times per day [Active]; carvedilol 12.5 mg Oral tab 1 tab every 12 hours [Active]; bumetanide 1 mg Oral tab 1 tab 2 times per day [Active]; albuterol sulfate 90 mcg/actuation Inhl HFAA 1 puff every 6 hours [Active]; - PMHx: 03:04 breast cancer-metastasized; Renal Disease; Pneumonia; COPD; Cancer to breast, lungs, fc bone and spine; CHF; ESRD; - PSHx: 03:04 Hysterectomy; ; Exploratory lap; Cholecystectomy; right breast sx; fc Appendectomy; dialysis port to right chest wall.; - Immunization history:: Last tetanus immunization: unknown. - Social history:: Smoking status: Patient/guardian denies using tobacco. - Ebola Screening: : Patient negative for fever greater than or equal to 101.5 degrees Fahrenheit, and additional compatible Ebola Virus Disease symptoms Patient denies exposure to infectious person Patient denies travel to an Ebola-affected area in the 21 days before illness onset. Screenin:44 Abuse screen: Denies threats or abuse. Nutritional screening: No deficits noted. fc Tuberculosis screening: No symptoms or risk factors identified. Fall Risk None identified. Assessment: 03:01 General: Appears uncomfortable, Behavior is restless. Pain: Denies pain. Neuro: Level ea of Consciousness is awake, alert, obeys commands, Oriented to person, place, time, situation. Cardiovascular: Heart tones S1 S2 present Patient's skin is warm and dry. Respiratory: Respiratory effort is labored, Respiratory pattern is tachypnea Respiratory at bedside, pt placed on bipap Breath sounds are diminished bilaterally. GI: Bowel sounds present X 4 quads. Abd is soft and non tender X 4 quads. : No signs and/or symptoms were reported regarding the genitourinary system. Derm: Skin is dry, Skin is pale, Skin temperature is cool warm blanket offered. Musculoskeletal: Circulation, motion, and sensation intact. 03:40 Reassessment: Patient and/or family updated on plan of care and expected duration. Pain ea level reassessed. Patient is alert, oriented x 3, equal unlabored respirations, skin warm/dry/pink. Pt refused second dose of Lopressor, will notify provider. 03:50 Reassessment: Provider notified of pt refusal of Lopressor. ea 04:05 Reassessment: Patient and/or family updated on plan of care and expected duration. Pain ea level reassessed. Patient is alert, oriented x 3, equal unlabored respirations, skin warm/dry/pink. Patient states feeling better. 05:55 Reassessment: Patient and/or family updated on plan of care and expected duration. Pain ea level reassessed. Patient is alert, oriented x 3, equal unlabored respirations, skin warm/dry/pink. Vital Signs: 02:44 BP 173 / 128; Pulse 150; Resp 30; Temp 97.7(A); Pulse Ox 97% on 100% BiPAP; Weight fc 43.09 kg (R); Height 5 ft. 3 in. (160.02 cm) (R); Pain 6/10; 03:00 BP 151 / 108; Pulse 124; Resp 24; Pulse Ox 100% on BiPAP; jb4 03:15 BP 150 / 102; Pulse 118; Resp 25; Pulse Ox 100% ; jb4 03:30 BP 147 / 97; Pulse 94; Resp 20 S; Pulse Ox 100% ; jb4 03:45 BP 147 / 95; Pulse 94; Resp 21; Pulse Ox 100% on Mask: BiPAP; ea 04:00 BP 128 / 89; Pulse 89; Resp 20; Pulse Ox 100% on BiPAP; jb4 05:00 BP 134 / 92; Pulse 91; Resp 20 S; Pulse Ox 100% on BiPAP; Pain 0/10; ea 02:44 Body Mass Index 16.83 (43.09 kg, 160.02 cm) ED Course: 02:44 Arm band placed on Patient placed in an exam room, on a stretcher, on oxygen, on cardiac surgeon, on pulse oximetry. 02:44 Patient has correct armband on for positive identification. Bed in low position. Call light in reach. Side rails up X2. polisher aluminum on. Pulse ox on. NIBP on. 02:44 Maintain EMS IV. Dressing intact. Good blood return noted. Site clean \T\ dry. Gauge \T\ site: 22 gauge to left hand. 02:45 O2 via Bipap with I of 12 and E of 6 with Fio2 of 100%. fc 02:52 Patient arrived in ED. ms 02:53 Gonzales Espinosa MD is Attending Physician. pkl 02:55 Triage completed. fc 03:01 Mary Jo Rhodes, [place] is Primary Nurse. ea 03:44 X-ray completed. Portable x-ray completed in exam room. Patient tolerated procedure kw well. 03:45 XRAY Chest (1 view) In Process Unspecified. EDMS 04:26 Jeremiah Webb MD is Hospitalizing Provider. pkl 05:00 No provider procedures requiring assistance completed. Patient admitted, IV remains in ea place. Administered Medications: 03:20 Drug: Lopressor 5 mg Route: IVP; Site: left hand; ea 03:45 Follow up: BP 147 / 95; Pulse 94 bpm; Resp 21 bpm; Pulse Ox 100% Mask: BiPAP ea 03:37 Drug: Albuterol - atroVENT (3:1) (2.5 mg - 0.5 mg) 3 ml Route: Nebulizer; ea Outcome: 04:27 Decision to Hospitalize by Provider. pkl 05:00 Admitted to ER Hold. Please see [facility] for further documentation. ea 05:00 Condition: stable 05:00 Instructed on the need for admit. 09:07 Admitted to accompanied by tech, family with patient, via stretcher, with oxygen, with sg chart, Report called to Kayce GOFF 09:07 Condition: stable 09:38 Patient left the ED. Signatures: Dispatcher [employer] EDMS Joe Friedman RN RN Gonzales Diop MD MD pkYoselin Musa, RN RN Michelle Escalante ms Chen Roberts Heather, RN RN Satya Hutson RN RN jbMary Jo Gotti RN RN
--- NOTE | 2018-04-07 04:27 | EDPHYS ---
Physician Documentation [facility] Name: Renate Gold Age: 53 yrs Sex: Female : 1965 Arrival Date: 04/07/2018 Time: 02:52 Bed 2 Private MD: ED Physician Gonzales Espinosa HPI: 04/07 03:29 This 53 yrs old Female presents to ER via EMS with unknown complaint. pkl 03:29 The patient has shortness of breath at rest. pkl Historical: - Allergies: 03:04 Ciprofloxacin; fc 03:04 Compazine; fc 03:04 Prochlorperazine Maleate; fc 03:04 Sulfa (Sulfonamide Antibiotics); fc - Home Meds: 03:04 tramadol 50 mg Oral tab 2 tabs twice a day [Active]; guaifenesin 100 mg/5 mL oral liqd fc qid prn [Active]; sevelamer carbonate 800 mg Oral tab 1 tab 3 times per day [Active]; Nephro-Uriel 0.8 mg oral tab daily [Active]; docusate sodium 100 mg Oral cap 1 cap 2 times per day [Active]; carvedilol 12.5 mg Oral tab 1 tab every 12 hours [Active]; bumetanide 1 mg Oral tab 1 tab 2 times per day [Active]; albuterol sulfate 90 mcg/actuation Inhl HFAA 1 puff every 6 hours [Active]; - PMHx: 03:04 breast cancer-metastasized; Renal Disease; Pneumonia; COPD; Cancer to breast, lungs, fc bone and spine; CHF; ESRD; - PSHx: 03:04 Hysterectomy; ; Exploratory lap; Cholecystectomy; right breast sx; fc Appendectomy; dialysis port to right chest wall.; - Immunization history:: Last tetanus immunization: unknown. - Social history:: Smoking status: Patient/guardian denies using tobacco. - Ebola Screening: : Patient negative for fever greater than or equal to 101.5 degrees Fahrenheit, and additional compatible Ebola Virus Disease symptoms Patient denies exposure to infectious person Patient denies travel to an Ebola-affected area in the 21 days before illness onset. ROS: 03:29 Eyes: Negative for injury, pain, redness, and discharge, ENT: Negative for injury, pkl pain, and discharge, Neck: Negative for injury, pain, and swelling, Cardiovascular: Negative for chest pain, palpitations, and edema. 03:29 Respiratory: Positive for shortness of breath, at rest. 03:29 Abdomen/GI: Negative for abdominal pain, nausea, vomiting, and diarrhea. 03:29 Back: Negative for acute changes. 03:29 : Negative for urinary symptoms. 03:29 MS/extremity: Negative for acute changes. 03:29 Skin: Negative for rash. 03:29 Neuro: Negative for altered mental status. Exam: 03:29 Head/Face: Normocephalic, atraumatic. Eyes: Pupils equal round and reactive to light, pkl extra-ocular motions intact. Lids and lashes normal. Conjunctiva and sclera are non-icteric and not injected. Cornea within normal limits. Periorbital areas with no swelling, redness, or edema. ENT: Nares patent. No nasal discharge, no septal abnormalities noted. Tympanic membranes are normal and external auditory canals are clear. Oropharynx with no redness, swelling, or masses, exudates, or evidence of obstruction, uvula midline. Mucous membranes moist. Neck: Trachea midline, no thyromegaly or masses palpated, and no cervical lymphadenopathy. Supple, full range of motion without nuchal rigidity, or vertebral point tenderness. No Meningismus. Chest/axilla: Normal chest wall appearance and motion. Nontender with no deformity. No lesions are appreciated. 03:29 Cardiovascular: Rate: tachycardic, actual rate is 150 bpm, Rhythm: regular. 03:29 ECG was reviewed by the Attending Physician. 03:29 Respiratory: moderate respiratory distress is noted, Respirations: labored breathing, Breath sounds: rales, that are mild, are scattered, rhonchi, that are mild, are scattered. 03:29 Abdomen/GI: Bowel sounds: normal, Palpation: abdomen is soft and non-tender, in all quadrants. 03:29 Back: Exam negative for acute changes. 03:29 : Exam negative for acute changes. 03:29 Musculoskeletal/extremity: Exam is negative for acute changes. 03:29 Skin: Exam negative for rash. 03:29 Neuro: Orientation: appropriate for stated age, Mentation: is normal, Cranial nerves: grossly normal, Motor: is normal. Vital Signs: 02:44 BP 173 / 128; Pulse 150; Resp 30; Temp 97.7(A); Pulse Ox 97% on 100% BiPAP; Weight fc 43.09 kg (R); Height 5 ft. 3 in. (160.02 cm) (R); Pain 6/10; 03:00 BP 151 / 108; Pulse 124; Resp 24; Pulse Ox 100% on BiPAP; jb4 03:15 BP 150 / 102; Pulse 118; Resp 25; Pulse Ox 100% ; jb4 03:30 BP 147 / 97; Pulse 94; Resp 20 S; Pulse Ox 100% ; jb4 03:45 BP 147 / 95; Pulse 94; Resp 21; Pulse Ox 100% on Mask: BiPAP; ea 04:00 BP 128 / 89; Pulse 89; Resp 20; Pulse Ox 100% on BiPAP; jb4 05:00 BP 134 / 92; Pulse 91; Resp 20 S; Pulse Ox 100% on BiPAP; Pain 0/10; ea 02:44 Body Mass Index 16.83 (43.09 kg, 160.02 cm) fc MDM: 02:53 Patient medically screened. pkl 04:24 Data reviewed: vital signs, nurses notes, lab test result(s), EKG, radiologic studies, pkl plain films. 04/07 03:15 Order name: Basic Metabolic Panel pkl 04/07 03:15 Order name: CBC with Diff pkl 04/07 03:15 Order name: Ckmb pkl 04/07 03:15 Order name: CPK pkl 04/07 03:15 Order name: LFT's pkl 04/07 03:15 Order name: Magnesium pkl 04/07 03:15 Order name: NT PRO-BNP pkl 04/07 03:15 Order name: PT-INR; Complete Time: 04:33 pkl 04/07 03:15 Order name: Ptt, Activated; Complete Time: 04:33 pkl 04/07 03:15 Order name: Troponin (emerg Dept Use Only) pkl 04/07 03:15 Order name: ABG; Complete Time: 04:25 pkl 04/07 03:15 Order name: Blood Culture Adult (2) pkl 04/07 03:16 Order name: Basic Metabolic Panel EDMS 04/07 03:16 Order name: Creatine Phosphokinase EDMS 04/07 03:15 Order name: XRAY Chest (1 view) pkl 04/07 03:15 Order name: EKG; Complete Time: 03:16 pkl 04/07 03:15 Order name: Cardiac monitoring; Complete Time: 03:16 pkl 04/07 03:15 Order name: EKG - Nurse/Tech; Complete Time: 03:16 pkl 04/07 03:15 Order name: IV Saline Lock; Complete Time: 03:17 pkl 04/07 04:31 Order name: CBC Smear Scan EDSD 04/07 04:34 Order name: CONS Pharmacy Consult EDSD 04/07 04:34 Order name: CONS Physician Consult EDSD 04/07 04:34 Order name: Renal EDSD 04/07 04:34 Order name: Troponin I EDSD 04/07 04:34 Order name: Troponin I EDSD 04/07 04:34 Order name: Troponin I [facility] 04/07 04:35 Order name: Chest Single View EDSD 04/07 04:35 Order name: Chest Single View EDSD 04/07 03:15 Order name: Labs collected and sent; Complete Time: 03:38 pkl 04/07 03:15 Order name: O2 Per Protocol; Complete Time: 03:17 pkl 04/07 03:15 Order name: O2 Sat Monitoring; Complete Time: 03:17 pkl Administered Medications: 03:20 Drug: Lopressor 5 mg Route: IVP; Site: left hand; ea 03:45 Follow up: BP 147 / 95; Pulse 94 bpm; Resp 21 bpm; Pulse Ox 100% Mask: BiPAP ea 03:37 Drug: Albuterol - atroVENT (3:1) (2.5 mg - 0.5 mg) 3 ml Route: Nebulizer; ea Disposition: 04/07/18 04:27 Hospitalization ordered by Jeremiah Webb for Observation. Preliminary diagnosis is Acute dyspnea. Volume overload. Chronic renal disease.. COPD. - Bed requested for Telemetry/MedSurg (observation). - Status is Observation. hb - Condition is Stable. - Problem is new. - Symptoms are unchanged. UTI on Admission? No Signatures: Dispatcher [employer] Sarah Bishop RN RN dw Lam, Pin, MD MD pkl Chretien, Felicia, RN RN fc Solis, Maria ms Baxter, Heather, RN RN hb Antunez, Elena, RN RN ea Corrections: (The following items were deleted from the chart) 05:42 04:27 Hospitalization Ordered by Jeremiah Webb MD for Observation. Preliminary ms diagnosis is Acute dyspnea. Volume overload. Chronic renal disease.. COPD. Bed requested for Telemetry/MedSurg (observation). Status is Observation. Condition is Stable. Problem is new. Symptoms are unchanged. UTI on Admission? No. pkl 07:57 05:42 04/07/2018 04:27 Hospitalization Ordered by Jeremiah Webb MD for Observation. dw Preliminary diagnosis is Acute dyspnea. Volume overload. Chronic renal disease.. COPD. Bed requested for RUST ER HOLD. Status is Observation. Condition is Stable. Problem is new. Symptoms are unchanged. UTI on Admission? No. ms 09:38 07:57 04/07/2018 04:27 Hospitalization Ordered by Jeremiah Webb MD for Observation. hb Preliminary diagnosis is Acute dyspnea. Volume overload. Chronic renal disease.. COPD. Bed requested for Telemetry/MedSurg (observation). Status is Observation. Condition is Stable. Problem is new. Symptoms are unchanged. UTI on Admission? No. dw
[2018-04-07] MEDS ORDERED: FUROSEMIDE 40 MG/4 ML VIAL IV ONE (04:30)
[2018-04-07] MEDS ORDERED: ACETAMINOPHEN 500 MG TAB PO PRN (04:31)
[2018-04-07] MEDS ORDERED: MORPHINE 2 MG/ML SYR IV PRN (04:31)
[2018-04-07] MEDS ORDERED: FUROSEMIDE 100 MG/10 ML VIAL IV ONE (05:07)
[2018-04-07 05:19] LABS: Blood Morphology Comment NOTED (NOT SEEN); Platelet Estimate DECR; Teardrop Cell 1+; Urine White Blood Cell Casts OK
[2018-04-07 05:32] LABS: ALT/SGPT 11 U/L (12-78); AST/SGOT 34 U/L (15-37); Albumin 2.6 g/dL (3.4-5.0); Alkaline Phosphatase 62 U/L (45-117); BUN Blood Urea Nitrogen 34 mg/dL (7-18); Bicarbonate 23 mmol/L (21-32); Bilirubin Direct 0.3 mg/dL (0-0.2); Bilirubin Total 0.8 mg/dL (0.2-1.0); CKMB Creatine Kinase MB 1.4 ng/mL (0.3-3.6); Creatine Phosphokinase 62 U/L (26-192); Glucose Level 193 mg/dL (74-106); Magnesium 2.2 mg/dL (1.8-2.4); NT PRO-BNP > 175000 pg/mL (<125); Protein, Total 7.9 g/dL (6.4-8.2); Sodium Level 138 mmol/L (136-145)
--- NOTE | 2018-04-07 08:03 | P.HP ---
Certification for Inpatient Patient admitted to: Inpatient With expected LOS: >2 Midnights Practitioner: I am a practitioner with admitting privileges, knowledge of patient current condition, hospital course, and medical plan of care. Services: Services provided to patient in accordance with Admission requirements found in Title 42 Section 412.3 of the Code of Federal Regulations Patient History Date of Service: 04/07/18 Reason for admission: Respiratory distress History of Present Illness: Patient is a 53-year-old female who presents to the emergency room in respiratory distress. Patient was just discharged yesterday for respiratory failure secondary CHF acute systolic dysfunction. Patient was found have any ejection fraction of 20%. Patient has end-stage renal disease and had to be hemodialyzed. Patient has numerous comorbidities and she does not do of really great job taking care of herself. She was scheduled to get home dialysis from a company in [place]. However, the appointment was for today. She has a back in the hospital in severe respiratory distress with volume overload. She will be admitted and diuresed aggressively. Will Consult nephrology, Dr. Peres, for further input and once patient is dialyzed clinically should be better. Patient 's ejection fraction on echocardiogram is less than 20%. Long-term prognosis is poor.. Allergies ciprofloxacin [From Cipro] Allergy (Unknown, Verified 04/02/18 13:39) Unknown ciprofloxacin HCl [From Cipro] Allergy (Unknown, Verified 04/02/18 13:39) Unknown Sulfa (Sulfonamide Antibiotics) Allergy (Unknown, Verified 04/02/18 13:39) Unknown Home Medications: Albuterol Sulfate [Ventolin Hfa] 1 puff IH Q6HP PRN 04/03/18 Bumetanide [Bumex*] 1 mg PO BID 04/03/18 Carvedilol 12.5 mg PO BID 04/03/18 Folic Acid/Vitamin B Comp W-C [Nephro-Uriel Tablet] 0.8 mg PO DAILY 04/03/18 Sevelamer Carbonate 800 mg PO TID 04/03/18 traMADol HCL [Ultram*] 2 tab PO BID 04/03/18 Amox/Clavulanate [Augmentin 500 mg Tab*] 500 mg PO BID #28 tab 04/05/18 Docusate [Colace Cap] 100 mg PO BID #60 cap 04/05/18 guaiFENesin [Robitussin 100MG/5ML*] 5 ml PO QID PRN #200 ml 04/05/18 - Past Medical/Surgical History Diabetic: No -: right breast sx removal of lump, and lymph nodes -: breast ca-metastasized, radiation, chemo stopped 03/2018 complications -: renal disease -: esrd -: copd -: hysterectomy -: -: expl lap, rk -: port a cath right chest wall -: gabbi right chest wall - Family History Mother Medical History: Diabetes, Cancer Notes: breast ca Father Medical History: Heart disease, Hypertension - Social History Smoking Status: Former smoker Alcohol use: No CD- Drugs: No Caffeine use: No Place of Residence: Home Review of Systems 10-point ROS is otherwise unremarkable Physical Examination - Vital Signs Temperature: 98 F Blood Pressure: 147/89 Pulse: 90 Respirations: 16 Pulse Ox (%): 96 - Physical Exam General: Alert, In no apparent distress, Oriented x3 HEENT: Atraumatic, PERRLA, Mucous membr. moist/pink, Other (BiPAP face mask in place), EOMI, Sclerae nonicteric Neck: Supple, 2+ carotid pulse no bruit, JVD not distended, No LAD, Without JVD or thyroid abnormality Respiratory: Diminished, Crackles/rales, Expiratory wheezes Cardiovascular: Regular rate/rhythm, Normal S1 S2, Systolic murmur Gastrointestinal: Normal bowel sounds, Soft and benign, Non-distended, No tenderness Musculoskeletal: No clubbing, No tenderness, Swelling Integumentary: No rashes Neurological: Normal gait, Normal speech, Normal strength at 5/5 x4 extr, Normal tone, Sensation intact, Cranial nerves 3-12 intact, Normal affect Lymphatics: No axilla or inguinal lymphadenopathy - Studies Laboratory Data (last 24 hrs) 04/07/18 03:10: PT 12.8 H, INR 1.08, APTT 33.4 04/07/18 03:10: WBC 8.7 D, Hgb 9.9 L, Hct 30.3 L D, Plt Count 82 L D 04/07/18 03:10: Sodium 138, Potassium 4.0, BUN 34 H, Creatinine 5.30 H* D, Glucose 193 H, Magnesium 2.2, Total Bilirubin 0.8, AST 34, ALT 11 L, Alkaline Phosphatase 62 Assessment & Plan - Problems (Diagnosis) (1) Respiratory failure Onset Date: 04/05/18 Current Visit: No Status: Acute (2) CHF (congestive heart failure) Current Visit: No Status: Acute Qualifiers: Heart failure type: systolic (3) ESRD (end stage renal disease) Onset Date: 04/05/18 Current Visit: No Status: Chronic - Plan Plan: 1. Echocardiogram revealed EF less than 20% 2. Continue angiotensin receptor adonis except for Diovan 3. Continue beta-adonis if blood pressure tolerates 4. Nephrology consultation for hemodialysis 5. Aggressive diuresis as tolerated with IV Lasix although patient with minimal urine output 6. Strict I's and O's 7. Repeat CXR 8. Daily weights 9. Education regarding diet and treatment of congestive heart failure Discharge Plan: Home Plan to discharge in: Greater than 2 days - Advance Directives Does patient have a Living Will: No Does patient have a Durable POA for Healthcare: No - Code Status/Comfort Care Code Status Assessed: Yes Code Status: Full Code Critical Care: No Time Spent Managing PTS Care (In Minutes): 50
--- OUTSIDE RECORDS SUMMARY | 2018-04-07 08:17 | XMS REPORT | Clinical Summary ---
:1965 Author Organization [facility] Address [address] [place] [address] Phone Care Team Providers Name Role Phone [...] in 2 hours if needed (maximum daily putr=[id number]). 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 Demand ischemia ([facility]ERLY [facility]) 03/18/2018 (HFpEF) heart failure with preserved ejection fraction (HCC) 03/18/2018 Thrombocytopenia ([facility]LY [facility]) 03/17/2018 Acute renal failure (ARF) (FORMERLY [facility]) 03/16/2018 Symptomatic anemia 03/16/2018 Metabolic acidosis 03/16/2018 Troponin level elevated 03/16/2018 Community acquired bacterial pneumonia 03/16/2018 Fever 12/11/2017 Breast cancer (FORM[facility]) 12/11/2017 Sepsis due to undetermined organism without resultant organ failure ([facility]) Headache syndrome 10/21/2017 Other neutropenia ([facility]LY [facility]) 10/21/2017 Resolved Problems Problem Noted Date Resolved Date Sepsis (FORMERLY [facility]) 10/20/2017 12/09/2017 Abnormal LFTs (liver function tests) 10/20/2017 12/09/2017 Encounters Date Type Specialty Care Team Description 03/26/2018 Orders Only General Internal Medicine 03/17/2018 - [facility] General Internal William Wren MD Metabolic [...] 03/17/2018 Telephone Critical Care William Wren MD [id number] Call Medicine 03/16/2018 - [facility] General Internal Luis Fernando Kumar, Symptomatic anemia 03/17/2018 Encounter Medicine (Primary Andrew Pretty Dx);Generalized MD Fernie weakness;Essential hypertension;Cough;Sandi halley malignant neoplasm of breast with metastasis to other site, unspecified laterality (HCC);Acute renal failure, unspecified acute renal failure type (HCC);Dehydration;Comm unity acquired bacterial pneumonia;Troponin level elevated 12/08/2017 - [facility] General Internal Norberto Ruggiero Fever, unspecified 12/12/2017 Encounter Medicine MD Martin fever cause (Primary Andrew Pretty Dx);LeukopeniaFernie MD unspecified type;Hyponatremia;Fortuna static breast cancer (HCC);Sepsis due to undetermined organism without resultant organ failure (HCC) 10/20/2017 - [facility] General Internal Wai Bernal, Fever, unknown origin 10/23/2017 Encounter Medicine (Primary Dx);On Andrew Pretty antineoplastic MD Fernie chemotherapy;Other specified hypotension;Generalize d headache;Abnormal LFTs (liver function tests);Sepsis, due to unspecified organism (HCC);Headache syndrome;Other neutropenia (HCC) after 04/06/2017 Family History Medical History Relation Name Comments [...] Not on file Implants Implanted Type Area Gas Scrubber Operator Device Expiration Model / Identifier Date Serial / Lot Port,Mri Powerport Isp 6fr Chronoflex W/Suture Plugs - [id number] Catheter C R BARD 05/26/2015 [id number] / Implanted: Qty: 1 on 04/28/2014 by Luly Escalante Ports/[employer] PERIPHERAL [id number] / l Line [id number] Procedures Procedure Name Priority Date/Time Associated Diagnosis Comments CRITICAL CARE Routine 03/16/2018 11:25 AM Results for this CDT procedure are in the results section. after 04/06/2017 Results RHYTHM STRIP - SCAN (04/02/2018 10:40 AM)Only the most recent of3 resultswithin the time period is included.Hemodialysis (03/31/2018 1:55 PM)Only the most recent of5 [...] Chemistry Component Value Date/Time NA 133 (L) 03/31/2018426 K 4.6 03/31/2018426 CL 99 03/31/2018426 CO2 24 03/31/2018426 BUN 45 (H) 03/31/2018426 CREATININE 4.49 (H) 03/31/2018426 Component Value Date/Time CALCIUM 8.1 (L) 03/31/2018426 ALKPHOS 42 03/28/2018244 AST 35 (H) 03/28/2018244 ALT 13 03/28/2018244 BILITOT 1.0 03/28/2018244 Results for RENATE GOLD ( ) as [...] 1 % Specimen Performing Laboratory Blood [facility] [address] [place] [address] CBC with platelet count + automated diff (03/31/2018 4:27 AM)Only the most recent of19 resultswithin the time period is included. Specimen Performing Laboratory Blood Narrative The following orders were created for panel order CBC with platelet count + automated diff. Procedure Abnormality Status --------- ------ CBC with platelet count ...[[id number]]AbnormalFinal result Please view results for these tests on the individual orders. Magnesium (03/31/2018 4:27 AM)Only the most recent of12 resultswithin the time period is included. Component Value Ref Range Magnesium 1.9 1.6 - 2.6 mg/dL Specimen Performing Laboratory Blood [address] [address] Basic Metabolic Panel (03/31/2018 4:27 AM)Only the [...] FOR DIALYSIS PATIENTS. Specimen Performing Laboratory Blood [address] [address] POC-Glucose meter (03/30/2018 6:39 PM)Only the most recent of4 resultswithin the time period is included. Component Value Ref Range POC-Glucose Meter 121 (H)Comment: TESTED AT [address] 70 - 110 mg/[place] [address] Specimen Performing Laboratory Blood [address] [address] IR CV Access Fluoro (03/30/2018 4:42 PM) Specimen Performing Laboratory [facility] Narrative FINAL REPORT Tunneled dialysis catheter insertion. History: Renal failure. Modality: Sonography and fluoroscopy. Sedation: Versed 0.5 mg and fentanyl 25 mcg was given intravenously for conscious sedation.Vital signs were monitored throughout the procedure by a nurse, and remained stable. Physician intra-service time was 15 minutes. Parking Meter Attendant:Blessing. Submarine Operator:None. Approach: Right internal jugular vein Estimated blood [...] needle into the right atrium. A 4 Malian micropuncture sheath was placed.A subcutaneous tunnel was created in the right anterior chest wall by blunt dissection.A 19 cm 15.5 Malian Duraflow 2 catheter was brought through the [...] MD Report Verified Date/Time:04/01/2018 17:46:56 Reading Location: [place] [address] Angio Body Reading Room Procedure Note Interface, External Ris In - 04/01/2018 5:49 PM CDT FINAL REPORT Tunneled dialysis catheter insertion. History: Renal failure. Modality: Sonography and fluoroscopy. Sedation: Versed 0.5 mg and fentanyl 25 mcg was given intravenously for conscious sedation. Vital signs were monitored throughout the procedure by a nurse, and remained stable. Physician intra-service time was 15 minutes. Parking Meter Attendant: Blessing. Submarine Operator: None. Approach: Right internal jugular vein Estimated [...] needle into the right atrium. A 4 Malian micropuncture sheath was placed. A subcutaneous tunnel was created in the right anterior chest wall by blunt dissection. A 19 cm 15.5 Malian Duraflow 2 catheter was brought through the [...] Report Verified Date/Time: 04/01/2018 17:46:56 Reading Location: [facility] P048 Angio Body Reading Room /aPTT (03/30/2018 4:37 AM)Only the most recent of4 resultswithin the time period is included. Component Value Ref Range Protime 16.7 (H) 11.7 - 14.7 seconds INR 1.4 <=5.9 PTT 39.8 (H) 22.5 - 36.0 seconds Specimen Performing [place] [address] Narrative RECOMMENDED COUMADIN/WARFARIN INR THERAPY RANGES STANDARD [...] COMPATIBLE Unit ABO A Pos UNIT NUMBER [id number] Status TRANSFUSED Blood Bank Product RED BLOOD CELLS PRODUCT CODE [id number] Specimen Performing Laboratory Other SAFETRACE TX XR [...] MD Report Verified Date/Time:03/28/2018 22:19:58 Reading Location: [address] Reading Room Procedure Note Interface, External [...] Report Verified Date/Time: 03/28/2018 22:19:58 Reading Location: [address] Reading Room Lactic acid, venous, whole blood (03/28/2018 2:45 AM)Only the most recent of5 resultswithin the time period is included. Component Value Ref Range Lactate, Venous 1.1 0.5 - 2.2 mmol/L Specimen Performing Laboratory Blood [facility] [address] [address] Narrative Effective 11/28/2015: Units/Reference Range Change New: [...] FOR DIALYSIS PATIENTS. Specimen Performing Laboratory Blood [address] [address] Blood culture (03/28/2018 2:44 AM)Only the most recent of6 resultswithin the time period is included. Component Value Ref Range Result No growth in 5 days Specimen Performing Laboratory Blood - Central Venous Line [address] [address] Transfuse Leuko-Red RBC (03/27/2018 2:48 PM)Only the most recent of7 resultswithin the time period is included.Type and screen, automated (2017 12:03 PM)Only the most recent of3 resultswithin the time period is included. Component Value Ref Range ABO/RH AUTOMATED (BEAKER) A POSITIVE Ab Scrn NEGATIVE Specimen Performing Laboratory Blood [address] [address] XR shoulder complete 2 views min left [...] MD Report Verified Date/Time:03/26/2018 17:48:06 Reading Location: [facility] Radiology Reading Room Procedure Note Interface, [...] Report Verified Date/Time: 03/26/2018 17:48:06 Reading Location: [facility] Radiology Reading Room 12 lead (03/26/2018 8:47 AM)Only the most recent of4 resultswithin the time period is included. Specimen Performing Laboratory [employer] Narrative Ventricular Rate 89 BPM Atrial Rate 89 BPM P-R Interval 142 ms QRS Duration 64 ms Q-T Interval 384 ms QTC Calculation(Bazett) 467 ms P Trent[place] 44 degrees R Trent[place] 17 degrees T Trenton 148 degrees Normal sinus rhythm ST & T wave abnormality, consider anterior ischemia Prolonged QT Abnormal ECG When compared with ECG of 19-MAR-2018 14:10, Nonspecific T wave abnormality, worse in Inferior leads T wave inversion now evident in Anterior leads Confirmed by MD LUL, ERICA Hernandez ([id number]) on 03/27/2018 7:24:27 AM Procedure Note Interface, External Ris In - 03/27/2018 7:24 AM CDT Ventricular Rate 89 BPM Atrial Rate 89 BPM P-R Interval 142 ms QRS Duration 64 ms Q-T Interval 384 ms QTC Calculation(Bazett) 467 ms P [place] 44 degrees R [place] 17 degrees T Trenton 148 degrees Normal sinus rhythm ST & T wave abnormality, consider anterior ischemia Prolonged QT Abnormal ECG When compared with ECG of 19-MAR-2018 14:10, Nonspecific T wave abnormality, worse in Inferior leads T wave inversion now evident in Anterior leads Confirmed by MD LUL, ERICA Hernandez ([id number]) on 03/27/2018 7:24:[address] abdomen/pelvis without iv contrast (03/26/2018 12:39 AM) Specimen Performing Laboratory [employer] Narrative FINAL REPORT CT, ABDOMEN \\T\\ PELVIS, [...] MD Report Verified Date/Time:03/26/2018 02:57:14 Reading Location: [facility] C013T Transitional Reading Room Procedure Note Interface, External [...] bilateral lower lobes. Unchanged splenomegaly. Signed: Kellee Isals MD Report Verified Date/Time: 03/26/2018 02:57:14 Reading Location: [address] Transitional Reading Room Peripheral Blood Smear - Hold only (03/25/2018 2:03 PM)Only the most recent of3 resultswithin the time period is included. Component Value Ref Range Peripheral Smear Save saved Specimen Performing Laboratory Blood [address] [address] Lactate dehydrogenase (LDH) (03/25/2018 2:03 PM)Only the most recent of4 resultswithin the time period is included. Component Value Ref Range LDH 722 (H) 125 - 220 U/L Specimen Performing Laboratory Blood [address] [address] US renal biopsy (03/24/2018 1:00 PM) Specimen Performing Laboratory [facility] Narrative FINAL REPORT HISTORY: Acute kidney injury of unknown etiology Sedation: Moderate sedation was administered. 0.5 mg of Versed and 25 mcg of fentanyl IV was used for moderate sedation monitored under my direction. Total intra-service time of sedation [id number]. The patient's vital signs were monitored throughout [...] ultrasound guided core random biopsy of the [facility] left kidney. Signed: Eduin Thompson MD Report Verified Date/Time:03/24/2018 12:59:37 Reading Location: [facility] [id number] Ultrasound Reading Room Procedure Note Interface, [...] ultrasound guided core random biopsy of the [facility] left kidney. 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 CPT Code(s) 04150, 14587 X3, 38527, 25761 x8, 40539 CLINICAL HISTORY Left renal failure evaluation SPECIMEN SOURCE Yocha Dehe left kidney biopsy GROSS DESCRIPTION The specimen [...] tubular basement membranes. Fibrinogen: Positive in thrombi Kapolei:Focal segmental to global, granular, peripheral capillary loop [...] Specimen Performing Laboratory Tissue - Kidney, Left [address] [address] Phosphorus (03/22/2018 11:26 PM)Only the most recent of2 resultswithin the time period is included. Component Value Ref Range Phosphorus 6.1 (H) 2.3 - 4.7 mg/dL Specimen Performing Laboratory Blood - Central Venous Line [address] [address] Hepatic function panel (03/22/2018 4:51 PM)Only the [...] Performing Laboratory Blood - Central Venous Line [address] [address] Prothrombin time/INR (03/22/2018 6:28 AM)Only the most recent of3 resultswithin the time period is included. Component Value Ref Range Protime 16.2 (H) 11.7 - 14.7 seconds INR 1.3 <=5.9 Specimen Performing Laboratory Blood - Arm, [address] [address] Narrative RECOMMENDED COUMADIN/WARFARIN INR THERAPY RANGES STANDARD [...] % Specimen Performing Laboratory Blood - Arm, [address] [address] Haptoglobin (03/22/2018 6:28 AM)Only the most recent of3 resultswithin the time period is included. Component Value Ref Range Haptoglobin <8 (L) 14 - 258 mg/dL Specimen Performing Laboratory Blood - Arm, [address] [address] CBC (Hemogram only) (03/21/2018 3:21 AM)Only the [...] Specimen Performing Laboratory Blood - Arm, Right [address] [address] Hepatitis B Panel (03/20/2018 12:12 PM) Component Value Ref Range Hep B Core Total Ab Nonreactive Nonreactive Hep B S Ab 133.0 (H) <8.0 mIU/mL Comment: Testing performed at [facility]. See attach result for further interpretation. hepatitis B Surface Ag Nonreactive Nonreactive Specimen Performing Laboratory Blood - Central Venous Line [address] [address] Hepatitis C antibody (03/20/2018 12:12 PM) Component Value Ref Range Hepatitis C Ab Nonreactive Nonreactive Specimen Performing Laboratory Blood - Central Venous Line [address] [address] TSH/Free T4 If Indicated (03/20/2018 5:39 AM) Component Value Ref Range TSH 7.12 (H) 0.35 - 4.94 uIU/mL Specimen Performing Laboratory Blood [address] [address] T4, free (03/20/2018 5:39 AM) Component Value Ref Range Free T4 0.67 (L) 0.70 - 1.48 ng/dL Specimen Performing Laboratory Blood [address] [address] Prepare plasma (03/19/2018 11:54 PM)Only the most recent of2 resultswithin the time period is included. Component Value Ref Range Unit ABO A UNIT NUMBER [id number] Status TRANSFUSED Blood Bank Product FFP PRODUCT CODE [id number] Unit ABO A UNIT NUMBER [id number] Status TRANSFUSED Blood Bank Product FFP PRODUCT CODE [id number] Specimen Performing Laboratory Blood SAFETRACE TX PTH, intact (03/19/2018 5:29 AM) Component Value Ref Range PTH 690.0 (H) 8.5 - 72.5 pg/mL Specimen Performing Laboratory Blood - Central Venous Line [address] [address] Vancomycin level, random (03/19/2018 5:29 AM)Only the most recent of2 resultswithin the time period is included. Component Value Ref Range Vancomycin Rm 14.4 ug/mL Specimen Performing Laboratory Blood - Central Venous Line [address] [address] Narrative Reference Range: No Normals Direct AHG (BASIL)/Direct Rose (03/18/2018 3:23 PM) Component Value Ref Range Direct AHG-IGG NEGATIVE Direct AHG-C3B, C3D NEGATVIE Specimen Per[place] [address] EKG-SCANNED (03/18/2018 2:53 PM)Calcium, Ionized (03/18/2018 9:15 AM)Only the most recent of3 resultswithin the time period is included. Component Value Ref Range Calcium, Ion 0.94 (L) 1.12 - 1.27 mmol/L pH, Blood 7.48 Specimen Performing Laboratory Blood [place] [address] aPTT (03/18/2018 8:37 AM)Only the most recent of2 resultswithin the time period is included. Component Value Ref Range PTT 38.9 (H) 22.5 - 36.0 seconds Specimen Performing Laboratory Blood - Central Venous Line [address] [address] D-dimer (03/18/2018 8:37 AM)Only the most recent of2 resultswithin the time period is included. Component Value Ref Range D-Dimer, Quant 3.18 (H) <0.50 MG/L FEU Specimen Performing Laboratory Blood - Central Venous Line [address] [address] Narrative Intended Use: The D-Dimer Assay can [...] - 295 mOsm/kg Specimen Performing Laboratory Blood [address] [address] Transfusion Reaction Investigation (03/18/2018 4:06 AM) Component Value Ref Range TRANSFUSION RX INVESTIGATION(ADDY) SEE COMMENTComment: Anaphylactoid reaction vs hypocalcemic response on TPE. Patient promptly recovered post fluid bolus. No special precautions required for future transfusions,Electronic Signature: Yuval Carmichael M.D. Specimen [place] [address] Transfuse plasma (03/18/2018 3:56 AM)Urea Nitrogen, random urine (03/18/2018 2 :20 AM) Component Value Ref Range Urea Nitrogen, Ur 298 mg/dL Specimen Performing Laboratory Urine - Urine, [place] [address] Narrative Reference Range: No Normals Sodium, random urine (03/18/2018 2:20 AM) Component Value Ref Range Sodium Urine 57 meq/L Specimen Performing Laboratory Urine - Urine, [place] [address] Narrative Reference Range: No Normals Potassium, random urine (03/18/2018 2:20 AM) Component Value Ref Range Potassium Urine 41.5 meq/L Specimen Performing Laboratory Urine - Urine, [place] [address] Narrative Reference Range: No Normals Osmolality, urine (03/18/2018 2:20 AM) Component Value Ref Range Osmolality, Ur 316 40 - 1400 mOsm/kg Specimen Performing Laboratory Urine - Urine, [place] [address] Creatinine, random urine (03/18/2018 2:20 AM)Only the most recent of2 resultswithin the time period is included. Component Value Ref Range Creatinine, Ur 36.3 mg/dL Specimen Performing Laboratory Urine - Urine, [place] [address] Narrative Reference Range: No Normals Procalcitonin (03/18/2018 1:27 AM) Component Value Ref Range Procalcitonin 8.65 (H) <0.05 ng/mL Specimen [place] [address] Narrative SEPSIS RISK (ng/mL) Low:0.05-0.50 Intermediate: 0.51-2.00 High: >=2.01 Troponin I (03/18/2018 1:27 AM)Only the most recent of4 resultswithin the time period is included. Component Value Ref Range Troponin I 0.77 (HH) 0.00 - 0.03 ng/mL Specimen Performing Laboratory Blood [address] [address] Narrative Troponin I (TnI) levels must be [...] Rh Factor POS Specimen Performing Laboratory Blood [address] [address] Fibrinogen (03/18/2018 12:59 AM) Component Value Ref Range Fibrinogen 466 (H) 225 - 434 mg/dl Specimen Performing Laboratory Blood [address] [address] Biopsy Bone Marrow (03/17/2018 3:01 PM) Component Value Ref Range Anatomic Case# [id number] Ordering Physician jordan Sultana m.d. Performing Physician Jordan Sultana m.d. Clot Rec'd? Yes Biopsy Rec'd? Yes Rec'd for Culture? No Rec'd for Flow? Yes Rec'd for Cytogenetics? Yes Rec'd for Molecular Genetics? No Specimen Performing Laboratory Bone Marrow - Iliac Crest, Right [facility] [address] [place] [address] Flow Cytometry Requisition (03/17/2018 3:00 PM) Component Value Ref Range Flow Cytometry See Separate Report Case # [id number] Specimen Performing Laboratory Bone Marrow [address] [address] Flow Cytometry (03/17/2018 3:00 PM) Component Value Ref Range Case Report Flow Cytometry Report Case: [id number] Authorizing Provider:Jordan Sultana MD Collected: 03/17/2018 1500 Ordering Location: [address] Med/SurgReceived: 03/17/2018 1714 Pathologist: Doug Lee [...] the bone marrow biopsy report([id number]). CPT Code(s) 81553 CLINICAL HISTORY 53 wf with h/o right breast ca s/p surgery and chemo xrt in 2013 found to have recurrence with extensive metastases, started on carboplatin and gemcitabine in October 2017, transferred from [facility] for management of MAHA with REJI. SPECIMEN SOURCE BONE MARROW ASPIRATE CELLULAR BIOMARKER ANALYSIS CD8, surface-Kapolei, CD56, surface-Lambda, CD5, CD19, CD10, CD3, CD20, CD4, CD45, CD14, CD13, CD33, CD117, CD34, cKappa, cLambda , CD38, CD138 IMMUNOPHENOTYPIC FINDINGS Specimen Viability: 92.4%Number of Events Acquired: 411052 The following populations are identified: Blasts: the [...] developed and their performance characteristics determined by [facility] They have not been cleared or approved by the U.S. Food and Drug Administration. The FDA has determined that such clearance or approval is not necessary. It should not be regarded as investigational or for research. This laboratory is certified under the Clinical Laboratory Improvement Amendments of 1988 ("CLIA") as qualified to perform high-complexity clinical testing. Specimen Performing Laboratory Other [facility] [address] [address] Bone Marrow Exam (03/17/2018 2:57 PM) Component Value Ref Range Case Report Bone Marrow Pathology Report Case: [id number] Authorizing Provider:Jordan Sultana MD Collected: 03/17/20187 Ordering Location: [address] Med/SurgReceived: 03/17/20181456 Pathologist: Doug Lee MD Specimens: A) - Iliac, Right B) - Iliac, Right C) - Iliac, Right ADDENDUM This addendum is created to report the [employer] results for the Oncologic chromosomal study: There [...] ANEMIA -THROMBOCYTOPENIA Signing Pathologist Direct Phone Line: [phone] COMMENT Bone marrow biopsy evaluation was performed [...] as an addendum when available. CPT Code(s) 54454; 68730; 96519 x 2; 61645; 67982 15124 x 1; 84333 x11 CLINICAL HISTORY Primary malignant neoplasm of [...] some erythroid precursors. CD138:Highlights few plasma cells Kapolei:Highlights polyclonal plasma cells Lambda:Highlights polyclonal plasma cells [...] developed and its performance characteristics determined by [facility], Pathology Laboratory. It has not been cleared [...] 5.2, CD3, CD20, CD34, CD61, CD117, CD138, Kap[place]i, Lambda, E-Cadherin. Specimen Performing Laboratory Bone Marrow - Iliac, Right [facility] [address] [place] [address] CT Biopsy/Aspiration/Injection (03/17/2018 2:41 PM) Specimen Performing Laboratory [facility] Narrative FINAL REPORT PROCEDURE: CT-guided bone marrow biopsy DOSE REDUCTION: The examination was performed according to departmental dose-optimization program which includes automated exposure control, adjustment of the mA and/or kV according to patient size and/or use of iterative reconstruction technique. Clinical History: Pancytopenia Electronic Assembler Group Leader: Marce Conscious sedation: Versed 1 mg, fentanyl [...] was immediately removed and provided to the fastener technologist. Subsequently a core biopsy was obtained using the outer sheath. The needle and sheath were removed. Postprocedure CT evaluation of the area revealed no significant hematoma. Patient tolerated the procedure well and remained hemodynamically stable throughout. IMPRESSION: Successful and uncomplicated CT-guided bone marrow aspiration and core biopsy. Signed: Jordan Sultana MD Report Verified Date/Time:03/17/2018 17:06:03 Reading Location: [facility] Radiology Reading Room Procedure Note Interface, External Ris In - 03/17/2018 5:08 PM CDT FINAL REPORT PROCEDURE: CT-guided bone marrow biopsy DOSE REDUCTION: The examination was performed according to departmental dose-optimization program which includes automated exposure control, adjustment of the mA and/or kV according to patient size and/or use of iterative reconstruction technique. Clinical History: P[employer]top[employer] Group Leader: Marce Conscious sedation: Versed 1 mg, fentanyl [...] was immediately removed and provided to the fastener technologist. Subsequently a core biopsy was obtained using the outer sheath. The needle and sheath were removed. Postprocedure CT evaluation of the area revealed no significant hematoma. Patient tolerated the procedure well and remained hemodynamically stable throughout. IMPRESSION: Successful and uncomplicated CT-guided bone marrow aspiration and core biopsy. Signed: Jordan Sultana MD Report Verified Date/Time: 03/17/2018 17:06:03 Reading Location: [facility] Radiology Reading Room CARDIOGRAM REPORT - [...] MD Report Verified Date/Time:03/17/2018 13:39:16 Reading Location: [facility] Radiology Reading Room Procedure Note Interface, [...] Report Verified Date/Time: 03/17/2018 13:39:16 Reading Location: [facility] Radiology Reading Room 2D Echo W/Doppler(CW/PW/Color) (03/17/2018 8:04 AM) Component Value Ref Range Ejection Fraction Specimen Performing Laboratory [facility] ECHO [facility] MKCKESSON CPACS Narrative Transthoracic Echocardiography Report (TTE) Demographics Patient Name Esthela GOLD of Study 03/17/2018 ADAN [id number] GenderFemale Visit Number [id number] RaceUnknown [id number] Number [id number] Number Date of Birth1965 Referring Physician Age53 year(s) Dishcloth Folder Zakia MANNING InterpretingJuliet Blas MD. Physician Procedure [...] Study 03/17/2018 ADAN Gender Female Visit Number [id number] Race Unknown Room Number AS415 Number Date of 1965 Referring Physician Age 53 year(s) Dishcloth Folder Zakia Boggs [facility] Interpreting Juliet Blas MD. Physician Procedure [...] Scan Result Specimen Performing Laboratory Bone Marrow [facility] MEDICAL [facility] [address] [place] [address] PARVOVIRUS B19 IGM (03/17/2018 6:02 AM) Component [...] PCR. Specimen Performing Laboratory Blood [facility] [address] [address] Narrative Performing Lab *[facility] [address] [place] [phone] Susannah Cherry MD PARVOVIRUS B19 IGG (03/17/2018 6:02 AM) Component Value Ref Range Parvovirus B19 Igg 0.6 Comment: REFERENCE RANGE: <0.9 INTERPRETIVE CRITERIA: <0.9 Negative 0.9 - 1.1 Equivocal >1.1 Positive IgG persists for years and provides life-long immunity. To diagnose current infection, consider Parvovirus B19 DNA, PCR. Specimen Performing Laboratory Blood [facility] [address] [address] Narrative Performing Lab *[facility] [address] [place] [phone] Susannah Cherry MD Parvovirus B19 antibodies (IgG, IgM) (03/17/2018 6:02 AM) Component Value Ref Range Parvovirus Ab Profile. Refer to individual Parvovirus B19 IgG and Igm results Specimen Performing Laboratory Blood [facility] [address] [place] [address] Blood gas, arterial (03/17/2018 4:53 AM) Component [...] Performing Laboratory Blood, Arterial - Arm, Right [facility] [address] [place] [address] Protein, random urine (03/16/2018 10:45 PM) Component Value Ref Range Protein, Urine 432 (H) 0 - 14 mg/dL Specimen Performing Laboratory Urine [facility] [address] [place] [address] Urine Protein Electrophoresis, random (03/16/2018 10:45 PM) Component Value Ref Range Protein, Urine 412 (H) 0 - 14 mg/dL Albumin %, Urine 56.3 % Globulin %, Urine 43.7 % UPEP,ID No monoclonal bands detected. Pathologist: Barbie Mccollum MD (electronic signature) Specimen Performing Laboratory Urine [address] [address] Urine Immunofixation, random (03/16/2018 10:45 PM) Component Value Ref Range Protein, Urine 412 (H) 0 - 14 mg/dL Albumin %, Urine 56.3 % Globulin %, Urine 43.7 % URINE JUDSON ID No monoclonal proteins or monoclonal free light chains detected. Pathologist: Barbie Mccollum MD (electronic signature) Specimen Performing Laboratory Urine [address] [address] Urinalysis w/Microscopic (03/16/2018 10:45 PM)Only the most recent of4 resultswithin the time period is included. Component Value Ref Range Color, UA Yellow Clarity, UA Clear Specific [place], UA 1.020 1.001 - 1.035 pH, UA [...] /LPF Specimen Source Specimen Performing Laboratory Urine [facility] [address] [place] [address] Peripheral Blood Smear - Path Review (03/16/2018 9:47 PM) Component Value Ref Range Pathologist Review Normochromic normocytic anemia with rare schistocytes seen (1-2/ HPF). WBCs normal in number and morphology. Thrombocytopenia with a few large forms. Pathologist: Michelle Yu M.D. (electronic signature) Specimen Performing Laboratory Blood [facility] [address] [place] [address] SARAH Titer & Pattern (03/16/2018 9:47 PM) Component Value Ref Range SARAH Titer >=1:2560 SARAH Pattern Speckled Specimen Performing Laboratory Blood [address] [address] Glomerular basement membrane antibody (03/16/2018 9:47 PM) Component Value Ref Range GBM Ab <1.0 <1.0 AI Comment: Interpretation: < 1.0 AI No Antibody Detected > OR=1.0 AI Antibody Detected Specimen Performing Laboratory Blood [facility] [address] [place] [address] Narrative Performing Lab [facility] [id number] [place] [address] Eusebia Jolly MD, PhD, LUIS ALBERTO Anti-Neutrophil Cytoplasmic Ab (ANCA) (03/16/2018 9:47 PM) Component Value Ref Range Proteinase-3 Ab <1.0 <1.0 AI Comment: <1.0 AI No Antibody Detected > or=1.0 AI Antibody Detected Autoantibodies to proteinase-3 (MN-3) are accepted as characteristic for granulomatosis with polyangiitis (GPA, Amber's), and are detectable in 95% of the histologically proven cases. The cytoplasmic IFA pattern, (c-ANCA), is based largely on autoantibody to MN-3 which serves as the primary antigen. These [...] Specimen Performing Laboratory Blood [facility] [address] [address] Narrative Performing Lab [facility] [address] [address] Eusebia Jolly MD, PhD, LUIS ALBERTO Immunofixation electrophoresis (JUDSON) (03/16/2018 9:47 PM) Component Value Ref Range IgG 2008 (H) 540 - 1822 mg/dL IgA 37 (L) 63 - 484 mg/dL IgM 673 (H) 22 - 293 mg/dL Serum JUDSON Identification No monoclonal proteins detected. Polyclonal elevation of gamma globulins. Pathologist: Barbie Mccollum MD (electronic signature) Specimen Performing Laboratory Blood [facility] [address] [place] [address] Bilirubin, total and direct (03/16/2018 9:47 PM) Component Value Ref Range Total Bilirubin 2.1 (H) 0.1 - 1.2 mg/dL Bilirubin, Direct 1.1 (H) 0.0 - 0.4 mg/dL Specimen Performing Laboratory Blood [facility] [address] [place] [address] Complement Component C3 (03/16/2018 9:47 PM) Component Value Ref Range C3 Complement 94 82 - 193 mg/dL Specimen Performing Laboratory Blood [address] [address] Complement Component C4 (03/16/2018 9:47 PM) Component Value Ref Range C4 Complement 22 15 - 57 mg/dL Specimen Performing Laboratory Blood [address] [address] Anti-Nuclear Antibody (SARAH) (03/16/2018 9:47 PM) Component Value Ref Range SARAH Positive (A) Negative Specimen Performing Laboratory Blood [address] [address] Narrative Test performed by IFA method. Protein [...] - 8.3 gm/dL Specimen Performing Laboratory Blood [address] [address] Ketone, blood (03/16/2018 9:47 PM) Component Value Ref Range Ketones, Blood 0.3 <0.4 mmol/L Specimen Performing Laboratory Blood [facility] [address] [place] [address] ED ECG Interpretation (03/16/2018 11:25 AM) Narrative Luis Fernando Kumar DO 03/16/2018 11:25 AM ECG/EKG Interpretation Date/Time: 03/16/2018 10:21 AM Performed by: LUIS FERNANDO KUMAR Authorized by: LUIS FERNANDO KUMAR The ECG was interpreted by ED physician. This ECG was not compared with previous ECG(s).The ECG is interpreted as sinus tachycardia. Rate is tachycardic. Heart rate is [address] segments normal. [place] is normal. Clinical Impression: non-specific ECGECG reviewed [...] Rh Factor POS Specimen [place] [address] Manual Differential (03/16/2018 10:02 AM)Only the most recent of4 resultswithin the time period is included. Component Value Ref Range Total Counted WBC Morphology Normal Platelet Morphology Normal Schistocytes 1+ few Anisocytosis 1+ few Macrocytes 1+ few Microcytes 1+ few Poikilocytes 1+ few Polychromasia 1+ few Specimen Performing Laboratory Blood [facility] [address] [place] [address] Creatine Kinase (CK), Total and MB (not available at [facility] and [place]) (2017 10:02 AM) Component Value Ref Range Total CK 125 25 - 235 U/L CK-MB 0.9 0.0 - 4.9 ng/mL MB Relative Index 0.7 % Specimen Performing Laboratory Blood [facility] [address] [place] [address] Narrative CK-MB Reference Range: <5 Normal 5-10 Borderline >10Abnormal Respiratory Panel [facility] (12/11/2017 10:13 AM) Component Value Ref Range [...] Specimen Performing Laboratory Nasopharyngeal - Nasopharyngeal Swab [address] [address] Vancomycin level, trough (12/11/2017 4:58 AM)Only the most recent of2 resultswithin the time period is included. Component Value Ref Range Vancomycin Tr 11.7 10.0 - 20.0 ug/mL Specimen Performing Laboratory Blood [facility] [address] [place] [address] Urine culture (12/08/2017 7:03 PM)Only the most recent of2 resultswithin the time period is included. Component Value Ref Range Result No growth Specimen Performing Laboratory Urine - Urine, Clean Catch [facility] [address] [place] [address] brain without IV contrast (10/20/2017 4:58 PM) Specimen Performing Laboratory [facility] Narrative FINAL REPORT CT Head without [...] MD Report Verified Date/Time:10/20/2017 17:12:46 Reading Location: [facility] Radiology Reading Room Procedure Note Interface, External [...] Report Verified Date/Time: 10/20/2017 17:12:46 Reading Location: [facility] Radiology Reading Room abdomen pelvis with IV contrast (10/20/2017 9:00 AM) Specimen Performing Laboratory [facility] Narrative FINAL REPORT INDICATION: 52-year-old female [...] MD Report Verified Date/Time:10/20/2017 09:17:32 Reading Location: [facility] [id number] Ortho Consult Reading Room Procedure Note [...] Report Verified Date/Time: 10/20/2017 09:17:32 Reading Location: [facility] [id number] Ortho Consult Reading Room Influenza antigen A & B (Rapid) (10/20/2017 7:26 AM) Component Value Ref Range Rapid Influenza A Antigen Negative Negative, Inconclusive Rapid influenza B Antigen Negative Negative, Inconclusive Specimen Performing Laboratory Nasopharyngeal - Nasopharyngeal Swab [facility] [address] [place] [address] Lipase (10/20/2017 7:23 AM) Component Value Ref Range Lipase 42 6 - 51 U/L Specimen Performing Laboratory Blood [facility] [address] [place] [address] after 04/06/2017
--- OUTSIDE RECORDS SUMMARY | 2018-04-07 08:19 | XMS REPORT ---
:1965 [facility] Address [address] [place] [address] Dr[address] Anton[address] [place] [address] Care Team Providers Name Role Phone HOLLY [...] Value Reference Range Comments CULTURE (BEAKER) (test bayh=1294) No growth in 5 days ANG, CV ACCESS, [id number] 17:46:00Reason for exam:->TDC placement for outpatient HDFINAL REPORT Tunneled dialysis catheter insertion. History: Renal failure. Modality: Sonography and fluoroscopy. Sedation: Versed 0.5 mg and fentanyl 25 mcg was given intravenously for conscious sedation. Vital signs were monitored throughout the procedure by a nurse, and remained stable. Physician intra-service time was 15 minutes. Residential Property Consultant: Blessing. Public Health Representative: None. Approach: Right internal jugular vein Estimatedblood [...] needle into the right atrium. A 4 [place] Islander micropuncture sheath was placed. A subcutaneous tunnel was created in the right anterior chest wall by blunt dissection. A 19 cm 15.5 [place]er Duraflow 2catheter was brought through the tunnel. [...] fluoroscopic guidance and conscious sedation. Signed: [facility] Verified Date/Time: 04/01/2018 17:46:56 Reading Location: [place] [address] Angio Body Reading Room TISSUE [id number] 11:52:00Surgical Pathology Report Case: [id number] Authorizing Provider: Michelle Ram MD Collected: 03/24/2018 1253 Ordering Location: [address] Received: 03/24/2018 1254 Service Pathologist: Dennise Jo MD Specimen: Kidney, Left, Left kidney needle biopsy KIDNEY, LEFT, NEEDLE BIOPSIES- ACUTE THROMBOTIC MICROANGIOPATHY- MODERATE INTERSTITIAL FIBROSIS AND TUBULAR ATROPHY ( ~40%) Signing Pathologist Direct Phone Line: [phone] signed by Dennise Jo MD on 03/31/2018 [...] Dr. Vital on 03/25/2018 at 10.15 am. [id number], [address] X3, 66387, 02394 x8, 13286Tnoc renal failure evaluationNative left kidney biopsyThe specimen [...] with extensive effacement of foot processes.BASIC METABOLIC [id number] 06:14:00 Test Item Value Reference Range Comments SODIUM (BEAKER) (test 133 meq/L 136-145 ppfd=843) POTASSIUM (BEAKER) (test 4.6 meq/L 3.5-5.1 jesi=883) CHLORIDE (BEAKER) (test 99 meq/L 98-107 mbfk=170) CO2 (BEAKER) (test 24 meq/L 22-29 jbgt=214) BLOOD UREA NITROGEN 45 mg/dL 7-21 (BEAKER) (test aden=226) CREATININE (BEAKER) (test 4.49 mg/dL 0.57-1.25 jshr=655) GLUCOSE RANDOM (BEAKER) 95 mg/dL 70-105 (test azqk=190) CALCIUM (BEAKER) (test 8.1 mg/dL 8.4-10.2 ckqf=542) EGFR (BEAKER) (test 10 mL/min/1.73 sq m ESTIMATED GFR IS NOT ejnw=4396) ACCURATE CREATININE CLEARANCE IN PREDICTING GLOMERULAR FILTRATION RATE. ESTIMATED GFR IS NOT APPLICABLE FOR DIALYSIS PATIENTS. [id number] 06:05:00 Test Item Value Reference Range Comments MAGNESIUM (BEAKER) (test nfiv=873) 1.9 mg/dL 1.6-2.6 CBC W/PLT COUNT & AUTO [id number] 05:20:00 Test Item Value Reference Range Comments WHITE BLOOD CELL COUNT (BEAKER) (test gija=632) 4.1 K/ L 3.5-10.5 RED BLOOD CELL COUNT (BEAKER) (test obry=395) 2.55 M/ L 3.93-5.22 HEMOGLOBIN (BEAKER) (test ckxg=589) 8.0 GM/DL 11.2-15.7 HEMATOCRIT (BEAKER) (test mvyl=112) 26.0 % 34.1-44.9 MEAN CORPUSCULAR VOLUME (BEAKER) (test ecfd=251) 102.0 fL 79.4-94.8 MEAN CORPUSCULAR HEMOGLOBIN (BEAKER) (test 31.4 pg 25.6-32.2 dhrf=639) MEAN CORPUSCULAR HEMOGLOBIN CONC (BEAKER) (test 30.8 GM/DL 32.2-35.5 aotn=838) RED CELL DISTRIBUTION WIDTH (BEAKER) (test 18.9 % 11.7-14.4 eirb=490) PLATELET COUNT (BEAKER) (test vvmc=215) 54 K/CU MM 150-450 MEAN PLATELET VOLUME (BEAKER) (test hmfl=071) 12.9 fL 9.4-12.3 NUCLEATED RED BLOOD CELLS (BEAKER) (test 0 /100 WBC 0-0 zovn=884) NEUTROPHILS RELATIVE PERCENT (BEAKER) (test 84 % wcry=825) LYMPHOCYTES RELATIVE PERCENT (BEAKER) (test 8 % swqq=939) MONOCYTES RELATIVE PERCENT (BEAKER) (test 7 % urea=099) EOSINOPHILS RELATIVE PERCENT (BEAKER) (test 1 % dmon=860) BASOPHILS RELATIVE PERCENT (BEAKER) (test 0 % mlzn=126) NEUTROPHILS ABSOLUTE COUNT (BEAKER) (test 3.45 K/ L 1.56-6.13 gjlb=827) LYMPHOCYTES ABSOLUTE COUNT (BEAKER) (test 0.33 K/ L 1.18-3.74 svnf=496) MONOCYTES ABSOLUTE COUNT (BEAKER) (test klvt=613) 0.28 K/ L 0.24-0.36 EOSINOPHILS ABSOLUTE COUNT (BEAKER) (test 0.03 K/ L 0.04-0.36 uqxh=699) BASOPHILS ABSOLUTE COUNT (BEAKER) (test lara=229) 0.01 K/ L 0.01-0.08 IMMATURE GRANULOCYTES-RELATIVE PERCENT (BEAKER) 1 % 0-1 (test qakh=1423) POCT-GLUCOSE [id number] 18:43:00 Test Item Value Reference Range Comments POC-GLUCOSE METER (BEAKER) 121 mg/dL 70-[address] [facility] [address] [facility] (test lmef=6244) [facility] [address] BASIC METABOLIC [id number] 06:46:00 Test Item Value Reference Range Comments SODIUM (BEAKER) (test 133 meq/L 136-145 ppgr=089) POTASSIUM (BEAKER) (test 4.1 meq/L 3.5-5.1 npbq=921) CHLORIDE (BEAKER) (test 98 meq/L 98-107 idxo=439) CO2 (BEAKER) (test 25 meq/L 22-29 uury=285) BLOOD UREA NITROGEN 27 mg/dL 7-21 (BEAKER) (test jcao=678) CREATININE (BEAKER) (test 2.91 mg/dL 0.57-1.25 flch=232) GLUCOSE RANDOM (BEAKER) 92 mg/dL 70-105 (test dkgh=998) CALCIUM (BEAKER) (test 8.3 mg/dL 8.4-10.2 uddj=512) EGFR (BEAKER) (test 17 mL/min/1.73 sq m ESTIMATED GFR IS NOT ajbq=8175) ACCURATE CREATININE CLEARANCE IN PREDICTING GLOMERULAR FILTRATION RATE. ESTIMATED GFR IS NOT APPLICABLE FOR DIALYSIS PATIENTS. [id number] 06:34:00 Test Item Value Reference Range Comments MAGNESIUM (BEAKER) (test qotr=041) 1.9 mg/dL 1.6-2.6 [id number] 06:13:00 Test Item Value Reference Range Comments PROTIME (BEAKER) (test srwq=592) 16.7 seconds 11.7-14.7 INR (BEAKER) (test zktt=199) 1.4 <=5.9 PARTIAL THROMBOPLASTIN TIME (BEAKER) (test 39.8 seconds 22.5-36.0 fwje=925) RECOMMENDED COUMADIN/WARFARIN INR THERAPY RANGESSTANDARD DOSE: 2.0 - 3.0 Includes: PROPHYLAXIS forvenous thrombosis, systemic embolization; TREATMENT for venous thrombosis and/or pulmonary embolus.HIGH RISK: Target INR is 2.5-3.5 for patients with mechanical heart valves.CBC W/PLT COUNT & AUTO [id number] 06:11:00 Test Item Value Reference Range Comments WHITE BLOOD CELL COUNT (BEAKER) (test ygcf=977) 3.2 K/ L 3.5-10.5 RED BLOOD CELL COUNT (BEAKER) (test xdye=978) 2.51 M/ L 3.93-5.22 HEMOGLOBIN (BEAKER) (test knwg=333) 8.0 GM/DL 11.2-15.7 HEMATOCRIT (BEAKER) (test wykz=640) 25.7 % 34.1-44.9 MEAN CORPUSCULAR VOLUME (BEAKER) (test dusa=155) 102.4 fL 79.4-94.8 MEAN CORPUSCULAR HEMOGLOBIN (BEAKER) (test 31.9 pg 25.6-32.2 xsli=978) MEAN CORPUSCULAR HEMOGLOBIN CONC (BEAKER) (test 31.1 GM/DL 32.2-35.5 hncu=064) RED CELL DISTRIBUTION WIDTH (BEAKER) (test 19.3 % 11.7-14.4 tecm=236) PLATELET COUNT (BEAKER) (test aeev=974) 49 K/CU MM 150-450 MEAN PLATELET VOLUME (BEAKER) (test eohw=977) 12.6 fL 9.4-12.3 NUCLEATED RED BLOOD CELLS (BEAKER) (test 0 /100 WBC 0-0 jbey=288) NEUTROPHILS RELATIVE PERCENT (BEAKER) (test 82 % qfdf=356) LYMPHOCYTES RELATIVE PERCENT (BEAKER) (test 9 % mpku=895) MONOCYTES RELATIVE PERCENT (BEAKER) (test 9 % ptoo=550) EOSINOPHILS RELATIVE PERCENT (BEAKER) (test 0 % ktvf=264) BASOPHILS RELATIVE PERCENT (BEAKER) (test 0 % pyal=078) NEUTROPHILS ABSOLUTE COUNT (BEAKER) (test 2.60 K/ L 1.56-6.13 mubz=962) LYMPHOCYTES ABSOLUTE COUNT (BEAKER) (test 0.29 K/ L 1.18-3.74 vfsh=450) MONOCYTES ABSOLUTE COUNT (BEAKER) (test gktl=743) 0.27 K/ L 0.24-0.36 EOSINOPHILS ABSOLUTE COUNT (BEAKER) (test 0.00 K/ L 0.04-0.36 kxui=399) BASOPHILS ABSOLUTE COUNT (BEAKER) (test jtke=534) 0.01 K/ L 0.01-0.08 IMMATURE GRANULOCYTES-RELATIVE PERCENT (BEAKER) 0 % 0-1 (test cawh=7837) BASIC METABOLIC [id number] 07:21:00 Test Item Value Reference Range Comments SODIUM (BEAKER) (test 135 meq/L 136-145 xntu=999) POTASSIUM (BEAKER) (test 4.1 meq/L 3.5-5.1 jyyj=507) CHLORIDE (BEAKER) (test 102 meq/L 98-107 jmao=763) CO2 (BEAKER) (test 24 meq/L 22-29 mrwh=983) BLOOD UREA NITROGEN 45 mg/dL 7-21 (BEAKER) (test uytb=873) CREATININE (BEAKER) (test 4.55 mg/dL 0.57-1.25 phzo=214) GLUCOSE RANDOM (BEAKER) 106 mg/dL 70-105 (test zccf=797) CALCIUM (BEAKER) (test 7.8 mg/dL 8.4-10.2 folg=633) EGFR (BEAKER) (test 10 mL/min/1.73 sq m ESTIMATED GFR IS NOT aspg=0767) ACCURATE CREATININE CLEARANCE IN PREDICTING GLOMERULAR FILTRATION RATE. ESTIMATED GFR IS NOT APPLICABLE FOR DIALYSIS PATIENTS. [id number] 07:08:00 Test Item Value Reference Range Comments MAGNESIUM (BEAKER) (test rnif=815) 1.8 mg/dL 1.6-2.6 CBC W/PLT COUNT & AUTO [id number] 06:53:00 Test Item Value Reference Range Comments WHITE BLOOD CELL COUNT (BEAKER) (test cxhl=481) 2.9 K/ L 3.5-10.5 RED BLOOD CELL COUNT (BEAKER) (test pkug=000) 2.45 M/ L 3.93-5.22 HEMOGLOBIN (BEAKER) (test jxwm=938) 8.0 GM/DL 11.2-15.7 HEMATOCRIT (BEAKER) (test ygie=506) 25.1 % 34.1-44.9 MEAN CORPUSCULAR VOLUME (BEAKER) (test gzau=350) 102.4 fL 79.4-94.8 MEAN CORPUSCULAR HEMOGLOBIN (BEAKER) (test 32.7 pg 25.6-32.2 dhwv=755) MEAN CORPUSCULAR HEMOGLOBIN CONC (BEAKER) (test 31.9 GM/DL 32.2-35.5 bgrm=361) RED CELL DISTRIBUTION WIDTH (BEAKER) (test 19.7 % 11.7-14.4 eatk=039) PLATELET COUNT (BEAKER) (test ntii=268) 41 K/CU MM 150-450 MEAN PLATELET VOLUME (BEAKER) (test njmr=749) 11.7 fL 9.4-12.3 NUCLEATED RED BLOOD CELLS (BEAKER) (test 0 /100 WBC 0-0 tqxa=750) NEUTROPHILS RELATIVE PERCENT (BEAKER) (test 75 % ablm=660) LYMPHOCYTES RELATIVE PERCENT (BEAKER) (test 13 % jvyn=761) MONOCYTES RELATIVE PERCENT (BEAKER) (test 11 % lbln=224) EOSINOPHILS RELATIVE PERCENT (BEAKER) (test 0 % yogb=128) BASOPHILS RELATIVE PERCENT (BEAKER) (test 0 % kkaa=424) NEUTROPHILS ABSOLUTE COUNT (BEAKER) (test 2.13 K/ L 1.56-6.13 iptr=479) LYMPHOCYTES ABSOLUTE COUNT (BEAKER) (test 0.38 K/ L 1.18-3.74 nkqd=286) MONOCYTES ABSOLUTE COUNT (BEAKER) (test ukuh=587) 0.32 K/ L 0.24-0.36 EOSINOPHILS ABSOLUTE COUNT (BEAKER) (test 0.01 K/ L 0.04-0.36 kwed=712) BASOPHILS ABSOLUTE COUNT (BEAKER) (test npdu=987) 0.01 K/ L 0.01-0.08 IMMATURE GRANULOCYTES-RELATIVE PERCENT (BEAKER) 0 % 0-1 (test ckjg=3686) RAD, CHEST, 1 VIEW, NON [id number] 22:19:00Reason for exam:-> pneumoniaShould this be performed [...] MDReport Verified Date/Time: 03/28/2018 22:19:58 Reading Location: [address] Reading Room [id number] 05:56: 00 Test Item Value Reference Range Comments MAGNESIUM (BEAKER) (test tkjx=768) 1.9 mg/dL 1.6-2.6 COMPREHENSIVE METABOLIC [id number] 03:24:00 Test Item Value Reference Range Comments TOTAL PROTEIN (BEAKER) 5.9 gm/dL 6.0-8.3 (test lhwz=777) ALBUMIN (BEAKER) (test 2.5 g/dL 3.5-5.0 wpoy=2406) ALKALINE PHOSPHATASE 42 U/L 40-150 (BEAKER) (test xsns=012) BILIRUBIN TOTAL (BEAKER) 1.0 mg/dL 0.2-1.2 (test zqnw=579) SODIUM (BEAKER) (test 135 meq/L 136-145 dxwd=671) POTASSIUM (BEAKER) (test 4.1 meq/L 3.5-5.1 egds=650) CHLORIDE (BEAKER) (test 102 meq/L 98-107 tbga=149) CO2 (BEAKER) (test 26 meq/L 22-29 ysvd=788) BLOOD UREA NITROGEN 24 mg/dL 7-21 (BEAKER) (test renp=424) CREATININE (BEAKER) (test 3.02 mg/dL 0.57-1.25 kqst=207) GLUCOSE RANDOM (BEAKER) 121 mg/dL 70-105 (test iisg=717) CALCIUM (BEAKER) (test 8.2 mg/dL 8.4-10.2 sklu=349) AST (SGOT) (BEAKER) (test 35 U/L 5-34 xqav=101) ALT (SGPT) (BEAKER) (test 13 U/L 6-55 gmdm=822) EGFR (BEAKER) (test 16 mL/min/1.73 sq m ESTIMATED GFR IS NOT qvcu=0238) ACCURATE CREATININE CLEARANCE IN PREDICTING GLOMERULAR FILTRATION RATE. ESTIMATED GFR IS NOT APPLICABLE FOR DIALYSIS PATIENTS. LACTIC ACID, VENOUS, WHOLE [id number] 03:15:00 Test Item Value Reference Range Comments LACTATE BLOOD VENOUS (2) (BEAKER) (test 1.1 mmol/L 0.5-2.2 noco=3066) Effective 11/28/2015: Units/Reference Range ChangeNew: 0.5-2.2 mmol/L Previous: 5 -20 mg/dLCBC W/PLT COUNT & AUTO [id number] 02:57:00 Test Item Value Reference Range Comments WHITE BLOOD CELL COUNT (BEAKER) (test jmso=561) 2.7 K/ L 3.5-10.5 RED BLOOD CELL COUNT (BEAKER) (test jxcl=905) 2.45 M/ L 3.93-5.22 HEMOGLOBIN (BEAKER) (test reaz=676) 8.0 GM/DL 11.2-15.7 HEMATOCRIT (BEAKER) (test ztzr=678) 24.9 % 34.1-44.9 MEAN CORPUSCULAR VOLUME (BEAKER) (test swir=339) 101.6 fL 79.4-94.8 MEAN CORPUSCULAR HEMOGLOBIN (BEAKER) (test 32.7 pg 25.6-32.2 mlbz=501) MEAN CORPUSCULAR HEMOGLOBIN CONC (BEAKER) (test 32.1 GM/DL 32.2-35.5 vsve=115) RED CELL DISTRIBUTION WIDTH (BEAKER) (test 20.7 % 11.7-14.4 tydz=483) PLATELET COUNT (BEAKER) (test gsnk=829) 44 K/CU MM 150-450 MEAN PLATELET VOLUME (BEAKER) (test epxw=448) 11.9 fL 9.4-12.3 NUCLEATED RED BLOOD CELLS (BEAKER) (test 0 /100 WBC 0-0 cwgg=614) NEUTROPHILS RELATIVE PERCENT (BEAKER) (test 75 % pspi=107) LYMPHOCYTES RELATIVE PERCENT (BEAKER) (test 12 % kqbu=495) MONOCYTES RELATIVE PERCENT (BEAKER) (test 12 % dmrz=841) EOSINOPHILS RELATIVE PERCENT (BEAKER) (test 0 % vald=665) BASOPHILS RELATIVE PERCENT (BEAKER) (test 0 % yesc=202) NEUTROPHILS ABSOLUTE COUNT (BEAKER) (test 2.05 K/ L 1.56-6.13 jcxz=228) LYMPHOCYTES ABSOLUTE COUNT (BEAKER) (test 0.32 K/ L 1.18-3.74 pilm=788) MONOCYTES ABSOLUTE COUNT (BEAKER) (test rsfx=016) 0.34 K/ L 0.24-0.36 EOSINOPHILS ABSOLUTE COUNT (BEAKER) (test 0.01 K/ L 0.04-0.36 kpsz=273) BASOPHILS ABSOLUTE COUNT (BEAKER) (test chwu=386) 0.01 K/ L 0.01-0.08 IMMATURE GRANULOCYTES-RELATIVE PERCENT (BEAKER) 0 % 0-1 (test reon=9351) POCT-GLUCOSE [id number] 02:55:00 Test Item Value Reference Range Comments POC-GLUCOSE METER (BEAKER) 148 mg/dL 70-[address] [facility] [address] [place] [address] (test dhlr=0504) [facility] [address] BASIC METABOLIC [id number] 06:29:00 Test Item Value Reference Range Comments SODIUM (BEAKER) (test 129 meq/L 136-145 lnlw=589) POTASSIUM (BEAKER) (test 3.5 meq/L 3.5-5.1 pksu=646) CHLORIDE (BEAKER) (test 97 meq/L 98-107 dlkg=392) CO2 (BEAKER) (test 25 meq/L 22-29 eebo=279) BLOOD UREA NITROGEN 44 mg/dL 7-21 (BEAKER) (test lbwq=301) CREATININE (BEAKER) (test 4.23 mg/dL 0.57-1.25 dmlk=592) GLUCOSE RANDOM (BEAKER) 118 mg/dL 70-105 (test jdnv=887) CALCIUM (BEAKER) (test 7.0 mg/dL 8.4-10.2 vtja=664) EGFR (BEAKER) (test 11 mL/min/1.73 sq m ESTIMATED GFR IS NOT dzcs=3943) ACCURATE CREATININE CLEARANCE IN PREDICTING GLOMERULAR FILTRATION RATE. ESTIMATED GFR IS NOT APPLICABLE FOR DIALYSIS PATIENTS. [id number] 06:27:00 Test Item Value Reference Range Comments MAGNESIUM (BEAKER) (test mjnz=444) 1.8 mg/dL 1.6-2.6 CBC W/PLT COUNT & AUTO [id number] 06:09:00 Test Item Value Reference Range Comments WHITE BLOOD CELL COUNT (BEAKER) (test nrsl=500) 3.1 K/ L 3.5-10.5 RED BLOOD CELL COUNT (BEAKER) (test lwzs=970) 1.93 M/ L 3.93-5.22 HEMOGLOBIN (BEAKER) (test wyxx=887) 6.4 GM/DL 11.2-15.7 HEMATOCRIT (BEAKER) (test ozgg=343) 20.6 % 34.1-44.9 MEAN CORPUSCULAR VOLUME (BEAKER) (test xjgg=554) 106.7 fL 79.4-94.8 MEAN CORPUSCULAR HEMOGLOBIN (BEAKER) (test 33.2 pg 25.6-32.2 qcky=112) MEAN CORPUSCULAR HEMOGLOBIN CONC (BEAKER) (test 31.1 GM/DL 32.2-35.5 bfvo=276) RED CELL DISTRIBUTION WIDTH (BEAKER) (test 20.5 % 11.7-14.4 rkwf=406) PLATELET COUNT (BEAKER) (test rmfu=033) 48 K/CU MM 150-450 MEAN PLATELET VOLUME (BEAKER) (test polz=822) 12.1 fL 9.4-12.3 NUCLEATED RED BLOOD CELLS (BEAKER) (test 0 /100 WBC 0-0 udqd=153) NEUTROPHILS RELATIVE PERCENT (BEAKER) (test 77 % sskz=644) LYMPHOCYTES RELATIVE PERCENT (BEAKER) (test 9 % uczl=010) MONOCYTES RELATIVE PERCENT (BEAKER) (test 13 % ipfp=181) EOSINOPHILS RELATIVE PERCENT (BEAKER) (test 0 % lked=612) BASOPHILS RELATIVE PERCENT (BEAKER) (test 0 % witp=536) NEUTROPHILS ABSOLUTE COUNT (BEAKER) (test 2.42 K/ L 1.56-6.13 rcta=083) LYMPHOCYTES ABSOLUTE COUNT (BEAKER) (test 0.27 K/ L 1.18-3.74 nmqd=558) MONOCYTES ABSOLUTE COUNT (BEAKER) (test yddz=415) 0.39 K/ L 0.24-0.36 EOSINOPHILS ABSOLUTE COUNT (BEAKER) (test 0.01 K/ L 0.04-0.36 wvpi=897) BASOPHILS ABSOLUTE COUNT (BEAKER) (test mqwo=336) 0.01 K/ L 0.01-0.08 IMMATURE GRANULOCYTES-RELATIVE PERCENT (BEAKER) 1 % 0-1 (test mubw=7380) RAD, SHOULDER, COMPLETE (MIN 2 VIEWS), [id number] 17:48:00Reason for exam:-& gt;r/o FxShould this be [...] IMPRESSION:No fracture or dislocation. Signed : Steve Torreseport Verified Date/Time: 03/26/2018 17:48:06 Reading Location: [facility] Radiology Reading Room [facility] METABOLIC [id number] 07:10:00 Test Item Value Reference Range Comments SODIUM (BEAKER) (test 133 meq/L 136-145 hjzh=701) POTASSIUM (BEAKER) (test 3.6 meq/L 3.5-5.1 hpqc=252) CHLORIDE (BEAKER) (test 101 meq/L 98-107 dbpt=571) CO2 (BEAKER) (test 24 meq/L 22-29 zrvo=075) BLOOD UREA NITROGEN 26 mg/dL 7-21 (BEAKER) (test civi=631) CREATININE (BEAKER) (test 2.73 mg/dL 0.57-1.25 tknl=512) GLUCOSE RANDOM (BEAKER) 117 mg/dL 70-105 (test nhov=608) CALCIUM (BEAKER) (test 7.5 mg/dL 8.4-10.2 vjzq=317) EGFR (BEAKER) (test 18 mL/min/1.73 sq m ESTIMATED GFR IS NOT gdgy=1611) ACCURATE CREATININE CLEARANCE IN PREDICTING GLOMERULAR FILTRATION RATE. ESTIMATED GFR IS NOT APPLICABLE FOR DIALYSIS PATIENTS. [id number] 07:08:00 Test Item Value Reference Range Comments MAGNESIUM (BEAKER) (test nnav=162) 1.9 mg/dL 1.6-2.6 CBC W/PLT COUNT & AUTO [id number] 06:34:00 Test Item Value Reference Range Comments WHITE BLOOD CELL COUNT (BEAKER) (test autj=507) 3.1 K/ L 3.5-10.5 RED BLOOD CELL COUNT (BEAKER) (test bbvz=516) 2.18 M/ L 3.93-5.22 HEMOGLOBIN (BEAKER) (test zkaq=797) 7.2 GM/DL 11.2-15.7 HEMATOCRIT (BEAKER) (test rsao=415) 23.1 % 34.1-44.9 MEAN CORPUSCULAR VOLUME (BEAKER) (test cdii=315) 106.0 fL 79.4-94.8 MEAN CORPUSCULAR HEMOGLOBIN (BEAKER) (test 33.0 pg 25.6-32.2 mohj=717) MEAN CORPUSCULAR HEMOGLOBIN CONC (BEAKER) (test 31.2 GM/DL 32.2-35.5 sauk=708) RED CELL DISTRIBUTION WIDTH (BEAKER) (test 21.7 % 11.7-14.4 bwfb=873) PLATELET COUNT (BEAKER) (test ttad=502) 45 K/CU MM 150-450 MEAN PLATELET VOLUME (BEAKER) (test mtuo=421) 11.8 fL 9.4-12.3 NUCLEATED RED BLOOD CELLS (BEAKER) (test 0 /100 WBC 0-0 bcbu=903) NEUTROPHILS RELATIVE PERCENT (BEAKER) (test 83 % vjye=527) LYMPHOCYTES RELATIVE PERCENT (BEAKER) (test 7 % cwqr=857) MONOCYTES RELATIVE PERCENT (BEAKER) (test 10 % btvg=289) EOSINOPHILS RELATIVE PERCENT (BEAKER) (test 0 % sfxz=683) BASOPHILS RELATIVE PERCENT (BEAKER) (test 0 % czjh=967) NEUTROPHILS ABSOLUTE COUNT (BEAKER) (test 2.55 K/ L 1.56-6.13 tyrr=564) LYMPHOCYTES ABSOLUTE COUNT (BEAKER) (test 0.20 K/ L 1.18-3.74 maky=087) MONOCYTES ABSOLUTE COUNT (BEAKER) (test tuge=059) 0.31 K/ L 0.24-0.36 EOSINOPHILS ABSOLUTE COUNT (BEAKER) (test 0.00 K/ L 0.04-0.36 emym=312) BASOPHILS ABSOLUTE COUNT (BEAKER) (test cgty=275) 0.01 K/ L 0.01-0.08 IMMATURE GRANULOCYTES-RELATIVE PERCENT (BEAKER) 1 % 0-1 (test wemh=1140) CT, [id number] 02:57:00R/o retroperitoneal hematoma s/p kidney bxFINAL REPORT [...] MDReport Verified Date/Time: 03/26/2018 02:57:14 Reading Location: [facility] [id number] Transitional Reading Room Electronically signed by: KELLEE ISLAS MD on 2017 02:57 AMLACTATE DEHYDROGENASE (LDH)2018-03-25 14:50:00 Test Item Value Reference Range Comments LACTATE DEHYDROGENASE (BEAKER) (test wwrq=279) 722 U/L 125-220 PERIPHERAL BLOOD SMEAR - HOLD [id number] 14:37:00 Test Item Value Reference Range Comments PERIPHERAL SMEAR SAVE (BEAKER) (test hsey=8430) saved BASIC METABOLIC [id number] 07:08:00 Test Item Value Reference Range Comments SODIUM (BEAKER) (test 127 meq/L 136-145 ldft=786) POTASSIUM (BEAKER) (test 4.3 meq/L 3.5-5.1 tqum=397) CHLORIDE (BEAKER) (test 94 meq/L 98-107 fyvr=258) CO2 (BEAKER) (test 23 meq/L 22-29 rhus=302) BLOOD UREA NITROGEN 56 mg/dL 7-21 (BEAKER) (test eaol=283) CREATININE (BEAKER) (test 4.30 mg/dL 0.57-1.25 jvus=900) GLUCOSE RANDOM (BEAKER) 110 mg/dL 70-105 (test dzgq=278) CALCIUM (BEAKER) (test 6.4 mg/dL 8.4-10.2 bozr=004) EGFR (BEAKER) (test 11 mL/min/1.73 sq m ESTIMATED GFR IS NOT arwa=5153) ACCURATE CREATININE CLEARANCE IN PREDICTING GLOMERULAR FILTRATION RATE. ESTIMATED GFR IS NOT APPLICABLE FOR DIALYSIS PATIENTS. [id number] 07:04:00 Test Item Value Reference Range Comments MAGNESIUM (BEAKER) (test tudh=194) 1.9 mg/dL 1.6-2.6 CBC W/PLT COUNT & AUTO [id number] 06:27:00 Test Item Value Reference Range Comments WHITE BLOOD CELL COUNT (BEAKER) (test ryyx=924) 5.3 K/ L 3.5-10.5 RED BLOOD CELL COUNT (BEAKER) (test rjhp=306) 2.39 M/ L 3.93-5.22 HEMOGLOBIN (BEAKER) (test wpoh=755) 7.9 GM/DL 11.2-15.7 HEMATOCRIT (BEAKER) (test vgsy=383) 25.0 % 34.1-44.9 MEAN CORPUSCULAR VOLUME (BEAKER) (test sxly=806) 104.6 fL 79.4-94.8 MEAN CORPUSCULAR HEMOGLOBIN (BEAKER) (test 33.1 pg 25.6-32.2 pjcz=187) MEAN CORPUSCULAR HEMOGLOBIN CONC (BEAKER) (test 31.6 GM/DL 32.2-35.5 okjg=408) RED CELL DISTRIBUTION WIDTH (BEAKER) (test 22.2 % 11.7-14.4 epfe=920) PLATELET COUNT (BEAKER) (test esdo=867) 60 K/CU MM 150-450 MEAN PLATELET VOLUME (BEAKER) (test rbln=601) 12.7 fL 9.4-12.3 NUCLEATED RED BLOOD CELLS (BEAKER) (test 0 /100 WBC 0-0 mksb=920) NEUTROPHILS RELATIVE PERCENT (BEAKER) (test 85 % utsm=622) LYMPHOCYTES RELATIVE PERCENT (BEAKER) (test 6 % rgdf=056) MONOCYTES RELATIVE PERCENT (BEAKER) (test 9 % vxuq=243) EOSINOPHILS RELATIVE PERCENT (BEAKER) (test 0 % xbfb=717) BASOPHILS RELATIVE PERCENT (BEAKER) (test 0 % egrb=763) NEUTROPHILS ABSOLUTE COUNT (BEAKER) (test 4.50 K/ L 1.56-6.13 wliw=522) LYMPHOCYTES ABSOLUTE COUNT (BEAKER) (test 0.30 K/ L 1.18-3.74 usgq=906) MONOCYTES ABSOLUTE COUNT (BEAKER) (test yyek=872) 0.46 K/ L 0.24-0.36 EOSINOPHILS ABSOLUTE COUNT (BEAKER) (test 0.01 K/ L 0.04-0.36 umrt=587) BASOPHILS ABSOLUTE COUNT (BEAKER) (test xdwa=929) 0.01 K/ L 0.01-0.08 IMMATURE GRANULOCYTES-RELATIVE PERCENT ([facility]) 1 % 0-1 (test xijv=6383) HEPATITIS B [id number] 13:58:00 Test Item Value Reference Range Comments HEPATITIS B CORE TOTAL Nonreactive Nonreactive ANTIBODY (ADDY) (test kmis=143) HEPATITIS B SURFACE ANTIBODY 133.0 mIU/mL <8.0 Testing performed at [facility] ([facility]) (test mnxn=291) Diagnostic Laboratory.See attach result for further interpretation. HEPATITIS B SURFACE ANTIGEN Nonreactive Nonreactive (2) ([facility]) (test mjvb=3691) U/S, BIOPSY, RENAL (KIDNEY)2018-03-24 12:59:00Reason for exam:->Acute [...] MDReport Verified Date/Time: 03/24 12:59:37 Reading Location: [facility] [id number] Ultrasound Reading Room BONE MARROW [id number] 11:03:00Bone Marrow Pathology Report Case: [id number] Authorizing Provider: Jordan Sultana MD Collected: 03/17/2018 1457 Ordering Location : [address] Med/Surg Received: 03/17/2018 7224 Pathologist: Doug Lee MD Specimens: A) - [...] NORMOCYTIC ANEMIA-THROMBOCYTOPENIA Signing Pathologist Direct Phone Line: [phone] signed by Doug Lee MD on 03/23/2018 [...] leukemia or metastatic disease. The corresponding flow cytometry([id number]) of the aspirate did not demonstrate evidence of an aberrant B or T lymphocyte process and no increase in blasts. Overall, the stromal changes, dyspoiesis and activated macrophages can be seen with chemotherapy effect. No evidence of a neoplastic process is identified. Clinical correlation is recommend. Oncologic chromosomal studies are pending and the results will be submitted as an addendum when available. 33658; 24819; 66438 x 2; 18628; [id number] x 1; 22703 u35Lretnln malignant neoplasm of breast with metastasis to [...] clusters. CD61: Highlights megakaryocytes which appear mildly [id number]: Demonstrates slightly more progenitor cells then CD34 [...] developed and its performance characteristics determined by [facility]. It has not [...] 5.2, CD3, CD20, CD34, CD61, CD117, CD138, [place], Lambda , E-Cadherin.CBC W/PLT COUNT & AUTO [id number] 06:18:00 Test Item Value Reference Range Comments WHITE BLOOD CELL COUNT (BEAKER) (test jijq=216) 5.0 K/ L 3.5-10.5 RED BLOOD CELL COUNT (BEAKER) (test fqou=375) 2.77 M/ L 3.93-5.22 HEMOGLOBIN (BEAKER) (test kyfb=260) 9.0 GM/DL 11.2-15.7 HEMATOCRIT (BEAKER) (test qtzd=622) 29.8 % 34.1-44.9 MEAN CORPUSCULAR VOLUME (BEAKER) (test gkrt=320) 107.6 fL 79.4-94.8 MEAN CORPUSCULAR HEMOGLOBIN (BEAKER) (test 32.5 pg 25.6-32.2 tpoi=810) MEAN CORPUSCULAR HEMOGLOBIN CONC (BEAKER) (test 30.2 GM/DL 32.2-35.5 rier=192) RED CELL DISTRIBUTION WIDTH (BEAKER) (test 23.6 % 11.7-14.4 gekw=364) PLATELET COUNT (BEAKER) (test zepy=025) 61 K/CU MM 150-450 MEAN PLATELET VOLUME (BEAKER) (test dvtt=527) 11.2 fL 9.4-12.3 NUCLEATED RED BLOOD CELLS (BEAKER) (test 0 /100 WBC 0-0 dfeg=254) NEUTROPHILS RELATIVE PERCENT (BEAKER) (test 82 % hoge=883) LYMPHOCYTES RELATIVE PERCENT (BEAKER) (test 7 % uezv=046) MONOCYTES RELATIVE PERCENT (BEAKER) (test 10 % xqgc=766) EOSINOPHILS RELATIVE PERCENT (BEAKER) (test 0 % fulc=343) BASOPHILS RELATIVE PERCENT (BEAKER) (test 0 % dpzr=207) NEUTROPHILS ABSOLUTE COUNT (BEAKER) (test 4.14 K/ L 1.56-6.13 fktz=469) LYMPHOCYTES ABSOLUTE COUNT (BEAKER) (test 0.35 K/ L 1.18-3.74 cgmj=466) MONOCYTES ABSOLUTE COUNT (BEAKER) (test vukf=475) 0.49 K/ L 0.24-0.36 EOSINOPHILS ABSOLUTE COUNT (BEAKER) (test 0.02 K/ L 0.04-0.36 mrbm=138) BASOPHILS ABSOLUTE COUNT (BEAKER) (test hdso=340) 0.01 K/ L 0.01-0.08 IMMATURE GRANULOCYTES-RELATIVE PERCENT (BEAKER) 0 % 0-1 (test qchi=3911) BASIC METABOLIC [id number] 05:46:00 Test Item Value Reference Range Comments SODIUM (BEAKER) (test 129 meq/L 136-145 zqsq=194) POTASSIUM (BEAKER) (test 3.9 meq/L 3.5-5.1 dlnm=342) CHLORIDE (BEAKER) (test 98 meq/L 98-107 arou=293) CO2 (BEAKER) (test 22 meq/L 22-29 yvlk=239) BLOOD UREA NITROGEN 42 mg/dL 7-21 (BEAKER) (test jlzr=022) CREATININE (BEAKER) (test 3.25 mg/dL 0.57-1.25 ezea=208) GLUCOSE RANDOM (BEAKER) 101 mg/dL 70-105 (test egyy=614) CALCIUM (BEAKER) (test 7.0 mg/dL 8.4-10.2 xdue=640) EGFR (BEAKER) (test 15 mL/min/1.73 sq m ESTIMATED GFR IS NOT rzsa=1249) ACCURATE CREATININE CLEARANCE IN PREDICTING GLOMERULAR FILTRATION RATE. ESTIMATED GFR IS NOT APPLICABLE FOR DIALYSIS PATIENTS. [id number] 05:40:00 Test Item Value Reference Range Comments MAGNESIUM (BEAKER) (test 2.1 mg/dL 1.6-2.6 Specimen slightly hemolyzed ygda=494) BASIC METABOLIC [id number] 23:13:00 Test Item Value Reference Range Comments SODIUM (BEAKER) (test 133 meq/L 136-145 yadi=353) POTASSIUM (BEAKER) (test 3.6 meq/L 3.5-5.1 wgzz=160) CHLORIDE (BEAKER) (test 98 meq/L 98-107 yzsg=537) CO2 (BEAKER) (test 26 meq/L 22-29 joro=384) BLOOD UREA NITROGEN 42 mg/dL 7-21 (BEAKER) (test kkgs=379) CREATININE (BEAKER) (test 3.20 mg/dL 0.57-1.25 igex=711) GLUCOSE RANDOM (BEAKER) 113 mg/dL 70-105 (test wfty=239) CALCIUM (BEAKER) (test 6.9 mg/dL 8.4-10.2 pcms=617) EGFR (BEAKER) (test 15 mL/min/1.73 sq m ESTIMATED GFR IS NOT kcwy=3992) ACCURATE CREATININE CLEARANCE IN PREDICTING GLOMERULAR FILTRATION RATE. ESTIMATED GFR IS NOT APPLICABLE FOR DIALYSIS PATIENTS. BASIC METABOLIC [id number] 18:45:00 Test Item Value Reference Range Comments SODIUM (BEAKER) (test 134 meq/L 136-145 xzar=523) POTASSIUM (BEAKER) (test 3.8 meq/L 3.5-5.1 crux=614) CHLORIDE (BEAKER) (test 100 meq/L 98-107 iuls=653) CO2 (BEAKER) (test 25 meq/L 22-29 oask=035) BLOOD UREA NITROGEN 37 mg/dL 7-21 (BEAKER) (test xptv=271) CREATININE (BEAKER) (test 2.98 mg/dL 0.57-1.25 ysbr=442) GLUCOSE RANDOM (BEAKER) 131 mg/dL 70-105 (test tzdf=910) CALCIUM (BEAKER) (test 7.3 mg/dL 8.4-10.2 wita=207) EGFR (BEAKER) (test 16 mL/min/1.73 sq m ESTIMATED GFR IS NOT wzbj=4861) ACCURATE CREATININE CLEARANCE IN PREDICTING GLOMERULAR FILTRATION RATE. ESTIMATED GFR IS NOT APPLICABLE FOR DIALYSIS PATIENTS. POCT-GLUCOSE [id number] 10:29:00 Test Item Value Reference Range Comments POC-GLUCOSE METER (BEAKER) 93 mg/dL 70-[address] [facility] [address] [facility] (test hmod=4203) [facility] [address] BASIC METABOLIC [id number] 07:02:00 Test Item Value Reference Range Comments SODIUM (BEAKER) (test 133 meq/L 136-145 jluc=318) POTASSIUM (BEAKER) (test 3.7 meq/L 3.5-5.1 fmlw=290) CHLORIDE (BEAKER) (test 97 meq/L 98-107 adnk=571) CO2 (BEAKER) (test 25 meq/L 22-29 oyic=259) BLOOD UREA NITROGEN 70 mg/dL 7-21 (BEAKER) (test nsyu=189) CREATININE (BEAKER) (test 4.25 mg/dL 0.57-1.25 tcmi=909) GLUCOSE RANDOM (BEAKER) 93 mg/dL 70-105 (test sxdz=095) CALCIUM (BEAKER) (test 7.2 mg/dL 8.4-10.2 tafj=736) EGFR (BEAKER) (test 11 mL/min/1.73 sq m ESTIMATED GFR IS NOT dgvx=8615) ACCURATE CREATININE CLEARANCE IN PREDICTING GLOMERULAR FILTRATION RATE. ESTIMATED GFR IS NOT APPLICABLE FOR DIALYSIS PATIENTS. [id number] 07:01:00 Test Item Value Reference Range Comments MAGNESIUM (BEAKER) (test mjlj=226) 2.2 mg/dL 1.6-2.6 CBC W/PLT COUNT & AUTO [id number] 06:36:00 Test Item Value Reference Range Comments WHITE BLOOD CELL COUNT (BEAKER) (test ywnz=128) 6.2 K/ L 3.5-10.5 RED BLOOD CELL COUNT (BEAKER) (test kuam=275) 2.89 M/ L 3.93-5.22 HEMOGLOBIN (BEAKER) (test lbop=468) 9.5 GM/DL 11.2-15.7 HEMATOCRIT (BEAKER) (test hpuv=340) 31.1 % 34.1-44.9 MEAN CORPUSCULAR VOLUME (BEAKER) (test npyn=823) 107.6 fL 79.4-94.8 MEAN CORPUSCULAR HEMOGLOBIN (BEAKER) (test 32.9 pg 25.6-32.2 pihy=246) MEAN CORPUSCULAR HEMOGLOBIN CONC (BEAKER) (test 30.5 GM/DL 32.2-35.5 fxlg=499) RED CELL DISTRIBUTION WIDTH (BEAKER) (test 24.9 % 11.7-14.4 dluj=830) PLATELET COUNT (BEAKER) (test nxxd=791) 73 K/CU MM 150-450 MEAN PLATELET VOLUME (BEAKER) (test dayk=793) 13.4 fL 9.4-12.3 NUCLEATED RED BLOOD CELLS (BEAKER) (test 0 /100 WBC 0-0 svys=082) NEUTROPHILS RELATIVE PERCENT (BEAKER) (test 87 % sxds=420) LYMPHOCYTES RELATIVE PERCENT (BEAKER) (test 5 % zyqx=249) MONOCYTES RELATIVE PERCENT (BEAKER) (test 7 % vjmz=356) EOSINOPHILS RELATIVE PERCENT (BEAKER) (test 0 % sxue=343) BASOPHILS RELATIVE PERCENT (BEAKER) (test 0 % pdzq=573) NEUTROPHILS ABSOLUTE COUNT (BEAKER) (test 5.36 K/ L 1.56-6.13 fduw=026) LYMPHOCYTES ABSOLUTE COUNT (BEAKER) (test 0.31 K/ L 1.18-3.74 mlbs=373) MONOCYTES ABSOLUTE COUNT (BEAKER) (test xsqu=766) 0.44 K/ L 0.24-0.36 EOSINOPHILS ABSOLUTE COUNT (BEAKER) (test 0.01 K/ L 0.04-0.36 ajgb=437) BASOPHILS ABSOLUTE COUNT (BEAKER) (test mxec=048) 0.00 K/ L 0.01-0.08 IMMATURE GRANULOCYTES-RELATIVE PERCENT (BEAKER) 1 % 0-1 (test usdz=1139) [id number] 06:35:00 Test Item Value Reference Range Comments PROTIME (BEAKER) (test hyzb=766) 15.3 seconds 11.7-14.7 INR (BEAKER) (test rcpy=279) 1.2 <=5.9 PARTIAL THROMBOPLASTIN TIME (BEAKER) (test 29.7 seconds 22.5-36.0 iqbs=981) RECOMMENDED COUMADIN/WARFARIN INR THERAPY RANGESSTANDARD DOSE: 2.0 - 3.0 Includes: PROPHYLAXIS forvenous thrombosis, systemic embolization; TREATMENT for venous thrombosis and/or pulmonary embolus.HIGH RISK: Target INR is 2.5-3.5 for patients with mechanical heart valves.[id number] 23:55:00 Test Item Value Reference Range Comments PHOSPHORUS (BEAKER) (test rsre=770) 6.1 mg/dL 2.3-4.7 BASIC METABOLIC [id number] 23:55:00 Test Item Value Reference Range Comments SODIUM (BEAKER) (test 135 meq/L 136-145 ukrf=455) POTASSIUM (BEAKER) (test 3.6 meq/L 3.5-5.1 qajg=229) CHLORIDE (BEAKER) (test 97 meq/L 98-107 nyfq=135) CO2 (BEAKER) (test 26 meq/L 22-29 rjhw=086) BLOOD UREA NITROGEN 63 mg/dL 7-21 (BEAKER) (test tmnb=426) CREATININE (BEAKER) (test 3.99 mg/dL 0.57-1.25 ocvq=552) GLUCOSE RANDOM (BEAKER) 121 mg/dL 70-105 (test ujdu=620) CALCIUM (BEAKER) (test 7.2 mg/dL 8.4-10.2 tews=233) EGFR (BEAKER) (test 12 mL/min/1.73 sq m ESTIMATED GFR IS NOT hywc=4355) ACCURATE CREATININE CLEARANCE IN PREDICTING GLOMERULAR FILTRATION RATE. ESTIMATED GFR IS NOT APPLICABLE FOR DIALYSIS PATIENTS. BASIC METABOLIC [id number] 17:30:00 Test Item Value Reference Range Comments SODIUM (BEAKER) (test 137 meq/L 136-145 ijio=445) POTASSIUM (BEAKER) (test 3.7 meq/L 3.5-5.1 wmjd=109) CHLORIDE (BEAKER) (test 98 meq/L 98-107 ezkk=887) CO2 (BEAKER) (test 27 meq/L 22-29 jbqq=598) BLOOD UREA NITROGEN 53 mg/dL 7-21 (BEAKER) (test mxul=537) CREATININE (BEAKER) (test 3.30 mg/dL 0.57-1.25 epyh=013) GLUCOSE RANDOM (BEAKER) 105 mg/dL 70-105 (test nvhu=047) CALCIUM (BEAKER) (test 8.1 mg/dL 8.4-10.2 bxsd=048) EGFR (BEAKER) (test 15 mL/min/1.73 sq m ESTIMATED GFR IS NOT qcoo=8458) ACCURATE CREATININE CLEARANCE IN PREDICTING GLOMERULAR FILTRATION RATE. ESTIMATED GFR IS NOT APPLICABLE FOR DIALYSIS PATIENTS. HEPATIC FUNCTION [id number] 17:26:00 Test Item Value Reference Range Comments TOTAL PROTEIN (BEAKER) (test mvho=317) 6.7 gm/dL 6.0-8.3 ALBUMIN (BEAKER) (test mwil=6181) 3.1 g/dL 3.5-5.0 BILIRUBIN TOTAL (BEAKER) (test nosu=134) 1.6 mg/dL 0.2-1.2 BILIRUBIN DIRECT (BEAKER) (test xiap=220) 0.7 mg/dL 0.1-0.5 ALKALINE PHOSPHATASE (BEAKER) (test cexm=431) 63 U/L 40-150 AST (SGOT) (BEAKER) (test xxbo=274) 48 U/L 5-34 ALT (SGPT) (BEAKER) (test aadj=712) 24 U/L 6-55 BASIC METABOLIC [id number] 15:15:00 Test Item Value Reference Range Comments SODIUM (BEAKER) (test 134 meq/L 136-145 kugi=280) POTASSIUM (BEAKER) (test 4.1 meq/L 3.5-5.1 gtel=313) CHLORIDE (BEAKER) (test 94 meq/L 98-107 ejuh=660) CO2 (BEAKER) (test 23 meq/L 22-29 aodn=296) BLOOD UREA NITROGEN 112 mg/dL 7-21 (BEAKER) (test cjok=008) CREATININE (BEAKER) (test 5.93 mg/dL 0.57-1.25 wycc=318) GLUCOSE RANDOM (BEAKER) 104 mg/dL 70-105 (test swlh=762) CALCIUM (BEAKER) (test 7.2 mg/dL 8.4-10.2 ztwo=799) EGFR (BEAKER) (test 7 mL/min/1.73 sq m ESTIMATED GFR IS NOT qvnq=8620) ACCURATE CREATININE CLEARANCE IN PREDICTING GLOMERULAR FILTRATION RATE. ESTIMATED GFR IS NOT APPLICABLE FOR DIALYSIS PATIENTS. URINE IMMUNOFIXATION, [id number] 15:09:00 Test Item Value Reference Range Comments PROTEIN, URINE (BEAKER) (test 412 mg/dL 0-14 ysht=2393) ALBUMIN URINE ELP (BEAKER) 56.3 % (test bhdd=6760) GAMMA GLOBULIN URINE (BEAKER) 43.7 % (test baub=6612) URINE JUDSON ID-[id number] (BEAKER) No monoclonal proteins or (test zonl=2878) monoclonal free light chains detected. [id number] (BEAKER) Barbie Mccollum MD (test nydz=5432) (electronic signature) URINE PROTEIN ELECTROPHORESIS, [id number] 13:02:00 Test Item Value Reference Range Comments PROTEIN, URINE (BEAKER) (test 412 mg/dL 0-14 wksr=9857) ALBUMIN URINE ELP (BEAKER) 56.3 % (test kqbu=4423) GAMMA GLOBULIN URINE (BEAKER) 43.7 % (test rebb=4478) UPEP, ID-438 (BEAKER) (test No monoclonal bands detected. dzux=5847) [id number] (BEAKER) Barbie Mccollum MD (test pzjk=2248) (electronic signature) [id number] 08:19:00 Test Item Value Reference Range Comments HAPTOGLOBIN (BEAKER) (test xtzv=897) < mg/dL 14-258 BASIC METABOLIC [id number] 07:44:00 Test Item Value Reference Range Comments SODIUM (BEAKER) (test 133 meq/L 136-145 juyw=744) POTASSIUM (BEAKER) (test 4.4 meq/L 3.5-5.1 hbvz=289) CHLORIDE (BEAKER) (test 95 meq/L 98-107 tpgr=466) CO2 (BEAKER) (test 23 meq/L 22-29 wjbw=064) BLOOD UREA NITROGEN 108 mg/dL 7-21 (BEAKER) (test fpqu=883) CREATININE (BEAKER) (test 5.79 mg/dL 0.57-1.25 elcr=987) GLUCOSE RANDOM (BEAKER) 107 mg/dL 70-105 (test ckyn=556) CALCIUM (BEAKER) (test 7.4 mg/dL 8.4-10.2 kmir=437) EGFR (BEAKER) (test 8 mL/min/1.73 sq m ESTIMATED GFR IS NOT ciki=7761) ACCURATE CREATININE CLEARANCE IN PREDICTING GLOMERULAR FILTRATION RATE. ESTIMATED GFR IS NOT APPLICABLE FOR DIALYSIS PATIENTS. [id number] 07:29:00 Test Item Value Reference Range Comments MAGNESIUM (BEAKER) (test crfn=779) 2.6 mg/dL 1.6-2.6 LACTATE DEHYDROGENASE (LDH)2018-03-22 07:29:00 Test Item Value Reference Range Comments LACTATE DEHYDROGENASE (BEAKER) (test dlnx=761) 812 U/L 125-220 CBC W/PLT COUNT & AUTO [id number] 07:15:00 Test Item Value Reference Range Comments WHITE BLOOD CELL COUNT (BEAKER) (test ckgy=596) 5.5 K/ L 3.5-10.5 RED BLOOD CELL COUNT (BEAKER) (test qbre=378) 2.90 M/ L 3.93-5.22 HEMOGLOBIN (BEAKER) (test tufu=120) 9.5 GM/DL 11.2-15.7 HEMATOCRIT (BEAKER) (test cpqt=643) 30.7 % 34.1-44.9 MEAN CORPUSCULAR VOLUME (BEAKER) (test zppi=343) 105.9 fL 79.4-94.8 MEAN CORPUSCULAR HEMOGLOBIN (BEAKER) (test 32.8 pg 25.6-32.2 yyyf=151) MEAN CORPUSCULAR HEMOGLOBIN CONC (BEAKER) (test 30.9 GM/DL 32.2-35.5 uafc=452) RED CELL DISTRIBUTION WIDTH (BEAKER) (test 24.7 % 11.7-14.4 ryhy=907) PLATELET COUNT (BEAKER) (test cpwd=869) 56 K/CU MM 150-450 MEAN PLATELET VOLUME (BEAKER) (test xshi=749) 11.6 fL 9.4-12.3 NUCLEATED RED BLOOD CELLS (BEAKER) (test 0 /100 WBC 0-0 hlcc=906) NEUTROPHILS RELATIVE PERCENT (BEAKER) (test 83 % ohnw=437) LYMPHOCYTES RELATIVE PERCENT (BEAKER) (test 9 % siue=825) MONOCYTES RELATIVE PERCENT (BEAKER) (test 7 % ausc=257) EOSINOPHILS RELATIVE PERCENT (BEAKER) (test 0 % apik=503) BASOPHILS RELATIVE PERCENT (BEAKER) (test 0 % wuiz=182) NEUTROPHILS ABSOLUTE COUNT (BEAKER) (test 4.58 K/ L 1.56-6.13 ekpg=325) LYMPHOCYTES ABSOLUTE COUNT (BEAKER) (test 0.49 K/ L 1.18-3.74 alvy=335) MONOCYTES ABSOLUTE COUNT (BEAKER) (test vfro=061) 0.39 K/ L 0.24-0.36 EOSINOPHILS ABSOLUTE COUNT (BEAKER) (test 0.00 K/ L 0.04-0.36 bewa=455) BASOPHILS ABSOLUTE COUNT (BEAKER) (test pgve=226) 0.01 K/ L 0.01-0.08 IMMATURE GRANULOCYTES-RELATIVE PERCENT (BEAKER) 1 % 0-1 (test fvto=8598) RETICULOCYTE [id number] 07:08:00 Test Item Value Reference Range Comments RETICULOCYTE COUNT PCT (BEAKER) (test uhrj=248) 13.4 % 0.5-1.7 [id number] 07:07:00 Test Item Value Reference Range Comments PROTIME (BEAKER) (test eyrn=162) 16.2 seconds 11.7-14.7 INR (BEAKER) (test cqpe=435) 1.3 <=5.9 PARTIAL THROMBOPLASTIN TIME (BEAKER) (test 31.2 seconds 22.5-36.0 tmlx=575) RECOMMENDED COUMADIN/WARFARIN INR THERAPY RANGESSTANDARD DOSE: 2.0 - 3.0 Includes: PROPHYLAXIS forvenous thrombosis, systemic embolization; TREATMENT for venous thrombosis and/or pulmonary embolus.HIGH RISK: Target INR is 2.5-3.5 for patients with mechanical heart valves.PROTHROMBIN [id number] 07:06: 00 Test Item Value Reference Range Comments PROTIME (BEAKER) (test rvko=383) 16.2 seconds 11.7-14.7 INR (BEAKER) (test jira=537) 1.3 <=5.9 RECOMMENDED COUMADIN/WARFARIN INR THERAPY RANGESSTANDARD DOSE: 2.0 - 3.0 Includes: PROPHYLAXIS forvenous thrombosis, systemic embolization; TREATMENT for venous thrombosis and/or pulmonary embolus.HIGH RISK: Target INR is 2.5-3.5 for patients with mechanical heart valves.BASIC METABOLIC [id number] 22:18: 00 Test Item Value Reference Range Comments SODIUM (BEAKER) (test 132 meq/L 136-145 cqsi=770) POTASSIUM (BEAKER) (test 4.7 meq/L 3.5-5.1 gsoq=157) CHLORIDE (BEAKER) (test 95 meq/L 98-107 cpeq=111) CO2 (BEAKER) (test 22 meq/L 22-29 ltik=938) BLOOD UREA NITROGEN 99 mg/dL 7-21 (BEAKER) (test coax=740) CREATININE (BEAKER) (test 5.57 mg/dL 0.57-1.25 ngov=492) GLUCOSE RANDOM (BEAKER) 139 mg/dL 70-105 (test bslw=821) CALCIUM (BEAKER) (test 7.3 mg/dL 8.4-10.2 uknq=746) EGFR (BEAKER) (test 8 mL/min/1.73 sq m ESTIMATED GFR IS NOT clte=9623) ACCURATE CREATININE CLEARANCE IN PREDICTING GLOMERULAR FILTRATION RATE. ESTIMATED GFR IS NOT APPLICABLE FOR DIALYSIS PATIENTS. RAD, CHEST, 1 VIEW, NON [id number] 18:54:00Reason for exam:->cough, chest congestionShould this be [...] MDReport Verified Date/Time: 03/21/2018 18:54:34 Reading Location: [facility] C013Y CT Body Reading Room [facility] METABOLIC [id number] 16:55:00 Test Item Value Reference Range Comments SODIUM (BEAKER) (test 135 meq/L 136-145 yqgq=710) POTASSIUM (BEAKER) (test 5.1 meq/L 3.5-5.1 bpio=750) CHLORIDE (BEAKER) (test 97 meq/L 98-107 xqjr=616) CO2 (BEAKER) (test 20 meq/L 22-29 ohqe=982) BLOOD UREA NITROGEN 100 mg/dL 7-21 (BEAKER) (test unhs=992) CREATININE (BEAKER) (test 5.45 mg/dL 0.57-1.25 hmqe=686) GLUCOSE RANDOM (BEAKER) 133 mg/dL 70-105 (test xxii=222) CALCIUM (BEAKER) (test 7.7 mg/dL 8.4-10.2 wodx=450) EGFR (BEAKER) (test 8 mL/min/1.73 sq m ESTIMATED GFR IS NOT gtab=4847) ACCURATE CREATININE CLEARANCE IN PREDICTING GLOMERULAR FILTRATION RATE. ESTIMATED GFR IS NOT APPLICABLE FOR DIALYSIS PATIENTS. BLOOD [id number] 13:00:00 Test Item Value Reference Range Comments CULTURE (BEAKER) (test sbso=4367) No growth in 5 days BASIC METABOLIC [id number] 12:42:00 Test Item Value Reference Range Comments SODIUM (BEAKER) (test 134 meq/L 136-145 kbld=028) POTASSIUM (BEAKER) (test 4.7 meq/L 3.5-5.1 jfuq=910) CHLORIDE (BEAKER) (test 95 meq/L 98-107 ecnw=464) CO2 (BEAKER) (test 21 meq/L 22-29 ydlt=343) BLOOD UREA NITROGEN 97 mg/dL 7-21 (BEAKER) (test rdri=141) CREATININE (BEAKER) (test 5.18 mg/dL 0.57-1.25 ebga=840) GLUCOSE RANDOM (BEAKER) 121 mg/dL 70-105 (test hnod=765) CALCIUM (BEAKER) (test 7.9 mg/dL 8.4-10.2 fibs=616) EGFR (BEAKER) (test 9 mL/min/1.73 sq m ESTIMATED GFR IS NOT zcyp=8094) ACCURATE CREATININE CLEARANCE IN PREDICTING GLOMERULAR FILTRATION RATE. ESTIMATED GFR IS NOT APPLICABLE FOR DIALYSIS PATIENTS. BASIC METABOLIC [id number] 06:21:00 Test Item Value Reference Range Comments SODIUM (BEAKER) (test 133 meq/L 136-145 ezqz=900) POTASSIUM (BEAKER) (test 4.6 meq/L 3.5-5.1 xcnq=753) CHLORIDE (BEAKER) (test 97 meq/L 98-107 nuew=977) CO2 (BEAKER) (test 18 meq/L 22-29 atve=025) BLOOD UREA NITROGEN 89 mg/dL 7-21 (BEAKER) (test nbtq=067) CREATININE (BEAKER) (test 4.86 mg/dL 0.57-1.25 gbpf=676) GLUCOSE RANDOM (BEAKER) 117 mg/dL 70-105 (test miik=279) CALCIUM (BEAKER) (test 7.9 mg/dL 8.4-10.2 kvvo=653) EGFR (BEAKER) (test 9 mL/min/1.73 sq m ESTIMATED GFR IS NOT rstj=3605) ACCURATE CREATININE CLEARANCE IN PREDICTING GLOMERULAR FILTRATION RATE. ESTIMATED GFR IS NOT APPLICABLE FOR DIALYSIS PATIENTS. [id number] 05:54:00 Test Item Value Reference Range Comments MAGNESIUM (BEAKER) (test yyvg=949) 2.4 mg/dL 1.6-2.6 CBC (HEMOGRAM ONLY)2018-03-21 05:23:00 Test Item Value Reference Range Comments WHITE BLOOD CELL COUNT (BEAKER) (test bhbd=202) 7.6 K/ L 3.5-10.5 RED BLOOD CELL COUNT (BEAKER) (test giil=621) 3.13 M/ L 3.93-5.22 HEMOGLOBIN (BEAKER) (test nnyh=589) 10.1 GM/DL 11.2-15.7 HEMATOCRIT (BEAKER) (test uwyj=524) 32.1 % 34.1-44.9 MEAN CORPUSCULAR VOLUME (BEAKER) (test dpid=511) 102.6 fL 79.4-94.8 MEAN CORPUSCULAR HEMOGLOBIN (BEAKER) (test 32.3 pg 25.6-32.2 ibgd=409) MEAN CORPUSCULAR HEMOGLOBIN CONC (BEAKER) (test 31.5 GM/DL 32.2-35.5 rlmt=572) RED CELL DISTRIBUTION WIDTH (BEAKER) (test 24.0 % 11.7-14.4 alxh=207) PLATELET COUNT (BEAKER) (test aqsl=807) 68 K/CU MM 150-450 MEAN PLATELET VOLUME (BEAKER) (test ufqi=099) 14.4 fL 9.4-12.3 NUCLEATED RED BLOOD CELLS (BEAKER) (test 1 /100 WBC 0-0 hndo=520) BASIC METABOLIC [id number] 00:47:00 Test Item Value Reference Range Comments SODIUM (BEAKER) (test 134 meq/L 136-145 ytis=764) POTASSIUM (BEAKER) (test 4.7 meq/L 3.5-5.1 tows=612) CHLORIDE (BEAKER) (test 97 meq/L 98-107 mohp=271) CO2 (BEAKER) (test 22 meq/L 22-29 blem=212) BLOOD UREA NITROGEN 86 mg/dL 7-21 (BEAKER) (test dtax=555) CREATININE (BEAKER) (test 4.81 mg/dL 0.57-1.25 ownf=408) GLUCOSE RANDOM (BEAKER) 115 mg/dL 70-105 (test svwo=780) CALCIUM (BEAKER) (test 7.9 mg/dL 8.4-10.2 mipo=103) EGFR (BEAKER) (test 9 mL/min/1.73 sq m ESTIMATED GFR IS NOT vuem=5661) ACCURATE CREATININE CLEARANCE IN PREDICTING GLOMERULAR FILTRATION RATE. ESTIMATED GFR IS NOT APPLICABLE FOR DIALYSIS PATIENTS. HEPATITIS C [id number] 13:26:00 Test Item Value Reference Range Comments HEPATITIS C ANTIBODY (BEAKER) (test orwb=976) Nonreactive Nonreactive BASIC METABOLIC [id number] 13:08:00 Test Item Value Reference Range Comments SODIUM (BEAKER) (test 133 meq/L 136-145 xhua=369) POTASSIUM (BEAKER) (test 5.0 meq/L 3.5-5.1 ecjc=314) CHLORIDE (BEAKER) (test 92 meq/L 98-107 jcaf=891) CO2 (BEAKER) (test 21 meq/L 22-29 ygsl=897) BLOOD UREA NITROGEN 123 mg/dL 7-21 (BEAKER) (test vbho=629) CREATININE (BEAKER) (test 5.93 mg/dL 0.57-1.25 hmly=573) GLUCOSE RANDOM (BEAKER) 108 mg/dL 70-105 (test oofr=171) CALCIUM (BEAKER) (test 8.1 mg/dL 8.4-10.2 ofvl=098) EGFR (BEAKER) (test 7 mL/min/1.73 sq m ESTIMATED GFR IS NOT cxrg=3205) ACCURATE CREATININE CLEARANCE IN PREDICTING GLOMERULAR FILTRATION RATE. ESTIMATED GFR IS NOT APPLICABLE FOR DIALYSIS PATIENTS. T4, [id number] 09:25:00 Test Item Value Reference Range Comments FREE T4 (BEAKER) (test evsi=877) 0.67 ng/dL 0.70-1.48 TSH/FREE T4 IF [id number] 09:04:00 Test Item Value Reference Range Comments THYROID STIMULATING HORMONE (BEAKER) (test 7.12 uIU/mL 0.35-4.94 bshy=826) BASIC METABOLIC [id number] 07:17:00 Test Item Value Reference Range Comments SODIUM (BEAKER) (test 132 meq/L 136-145 uozu=388) POTASSIUM (BEAKER) (test 4.6 meq/L 3.5-5.1 hapc=178) CHLORIDE (BEAKER) (test 92 meq/L 98-107 tggs=245) CO2 (BEAKER) (test 22 meq/L 22-29 dory=980) BLOOD UREA NITROGEN 119 mg/dL 7-21 (BEAKER) (test ejnj=529) CREATININE (BEAKER) (test 5.68 mg/dL 0.57-1.25 zqsp=383) GLUCOSE RANDOM (BEAKER) 108 mg/dL 70-105 (test nrtk=114) CALCIUM (BEAKER) (test 8.0 mg/dL 8.4-10.2 udyf=573) EGFR (BEAKER) (test 8 mL/min/1.73 sq m ESTIMATED GFR IS NOT knxc=5430) ACCURATE CREATININE CLEARANCE IN PREDICTING GLOMERULAR FILTRATION RATE. ESTIMATED GFR IS NOT APPLICABLE FOR DIALYSIS PATIENTS. CBC (HEMOGRAM ONLY)2018-03-20 06:25:00 Test Item Value Reference Range Comments WHITE BLOOD CELL COUNT (BEAKER) (test jqey=804) 7.0 K/ L 3.5-10.5 RED BLOOD CELL COUNT (BEAKER) (test qjzt=439) 2.95 M/ L 3.93-5.22 HEMOGLOBIN (BEAKER) (test glai=603) 9.5 GM/DL 11.2-15.7 HEMATOCRIT (BEAKER) (test bchd=077) 29.3 % 34.1-44.9 MEAN CORPUSCULAR VOLUME (BEAKER) (test ghvo=966) 99.3 fL 79.4-94.8 MEAN CORPUSCULAR HEMOGLOBIN (BEAKER) (test 32.2 pg 25.6-32.2 nfnw=833) MEAN CORPUSCULAR HEMOGLOBIN CONC (BEAKER) (test 32.4 GM/DL 32.2-35.5 mlwj=853) RED CELL DISTRIBUTION WIDTH (BEAKER) (test 22.7 % 11.7-14.4 nzkr=194) PLATELET COUNT (BEAKER) (test xmjr=443) 53 K/CU MM 150-450 NUCLEATED RED BLOOD CELLS (BEAKER) (test 1 /100 WBC 0-0 cxit=092) BASIC METABOLIC [id number] 03:08:00 Test Item Value Reference Range Comments SODIUM (BEAKER) (test 130 meq/L 136-145 sxwg=435) POTASSIUM (BEAKER) (test 4.9 meq/L 3.5-5.1 popu=151) CHLORIDE (BEAKER) (test 92 meq/L 98-107 lxfx=599) CO2 (BEAKER) (test 21 meq/L 22-29 qjjc=949) BLOOD UREA NITROGEN 117 mg/dL 7-21 (BEAKER) (test egpx=264) CREATININE (BEAKER) (test 5.66 mg/dL 0.57-1.25 nyzd=615) GLUCOSE RANDOM (BEAKER) 124 mg/dL 70-105 (test tdsr=449) CALCIUM (BEAKER) (test 7.9 mg/dL 8.4-10.2 feyb=159) EGFR (BEAKER) (test 8 mL/min/1.73 sq m ESTIMATED GFR IS NOT dipu=3505) ACCURATE CREATININE CLEARANCE IN PREDICTING GLOMERULAR FILTRATION RATE. ESTIMATED GFR IS NOT APPLICABLE FOR DIALYSIS PATIENTS. BASIC METABOLIC [id number] 20:16:00 Test Item Value Reference Range Comments SODIUM (BEAKER) (test 131 meq/L 136-145 dujc=334) POTASSIUM (BEAKER) (test 5.0 meq/L 3.5-5.1 uqqu=516) CHLORIDE (BEAKER) (test 92 meq/L 98-107 zxwn=560) CO2 (BEAKER) (test 22 meq/L 22-29 xyso=486) BLOOD UREA NITROGEN 113 mg/dL 7-21 (BEAKER) (test ykui=260) CREATININE (BEAKER) (test 5.58 mg/dL 0.57-1.25 ctvt=956) GLUCOSE RANDOM (BEAKER) 112 mg/dL 70-105 (test rvxr=994) CALCIUM (BEAKER) (test 8.1 mg/dL 8.4-10.2 fcpz=491) EGFR (BEAKER) (test 8 mL/min/1.73 sq m ESTIMATED GFR IS NOT ulzh=4703) ACCURATE CREATININE CLEARANCE IN PREDICTING GLOMERULAR FILTRATION RATE. ESTIMATED GFR IS NOT APPLICABLE FOR DIALYSIS PATIENTS. PROTEIN ELECTROPHORESIS, [id number] 17:31:00 Test Item Value Reference Range Comments ALBUMIN FRACTION (BEAKER) 2.7 g/dL 3.5-5.5 (test ewrw=508) ALPHA 1 FRACTION (BEAKER) 0.4 g/dL 0.2-0.4 (test bsef=317) ALPHA 2 FRACTION (BEAKER) 0.5 g/dL 0.5-0.9 (test tcmz=325) BETA FRACTION (BEAKER) (test 0.8 g/dL 0.6-1.1 ckzh=201) GAMMA GLOBULIN FRACTION 2.2 g/dL 0.7-1.7 (BEAKER) (test tyfl=407) INTERPRETATION-119 ([facility]) Polyclonal elevation of gamma (test nbht=5687) fraction, suggestive of chronic inflammatory response. Serum JUDSON pending to evaluate for presence of small underlying monoclonal protein in this region. [id number] Barbie Mccollum MD ([facility]) (test njfp=7368) (electronic signature) PROTEIN TOTAL SERUM, SPEP 6.7 gm/dL 6.0-8.3 (BEAKER) (test mrrl=6618) IMMUNOFIXATION ELECTROPHORESIS (JUDSON)2018-03-19 17:31:00 Test Item Value Reference Range Comments IMMUNOGLOBULIN G (IGG) (BEAKER) 2008 mg/dL 540-1822 (test dcok=189) IMMUNOGLOBULIN A (IGA) (BEAKER) 37 mg/dL 63-484 (test oyzr=183) IMMUNOGLOBULIN M (IGM) (BEAKER) 673 mg/dL 22-293 (test fefn=878) SERUM JUDSON ID (BEAKER) (test No monoclonal proteins fdwn=6244) detected. Polyclonal elevation of gamma globulins. [id number] ([facility]) Barbie Mccollum MD (test tssp=8773) (electronic signature) ANTI-NUCLEAR ANTIBODY (SARAH)2018-03-19 10:18:00 Test Item Value Reference Range Comments ANTI-NUCLEAR ANTIBODY (SARAH) (BEAKER) (test Positive Negative vjse=348) Test performed by IFA method.SARAH TITER AND [id number] 10:18:00 Test Item Value Reference Range Comments SARAH TITER (BEAKER) (test csvl=7629) >=:2560 SARAH PATTERN (BEAKER) (test klrt=9835) Speckled FLOW [id number] 09:17:00Flow Cytometry Report Case: [id number] Authorizing Provider: Jordan Sultana MD Collected: 03/17/2018 1500 Ordering Location: [address] Med/Surg Received: 03/17/2018 6366 Pathologist: Doug Lee MD Specimen: Other BONE [...] findings in the bone marrow biopsy report([id number]) .[id number] wf with h/o right breast ca s/p surgery and chemo xrt in 2013 found to have recurrence with extensive metastases, started on carboplatin and gemcitabine in October 2017, transferred from [facility] for management of MAHA with REJI.BONE MARROW ASPIRATECD8, surface-[place], CD56, surface-Lambda, CD5 , CD19, CD10, CD3, CD20, CD4, CD45, CD14, CD13, CD33, CD117, CD34, cKappa, cLambda, CD38, [id number] Viability: 92.4% Number of Events Acquired: [id number] The following populations are identified: Blasts: the [...] developed and their performance characteristics determined by [facility] They have not been cleared or approved by the U.S. Food and Drug Administration. The FDA has determined that such clearance or approval is not necessary. It should not be regarded as investigational or for research. This laboratory is certified under the Clinical Laboratory Improvement Amendments so9990 ("CLIA") as qualified to perform high-complexity clinical testing.FLOW CYTOMETRY [id number] 09:16:00 Test Item Value Reference Range Comments FLOW CYTOMETRY RESULT POINTER (BEAKER) See Separate Report (test aftj=6188) FLOW CYTOMETRY AP CASE # (BEAKER) (test [id number] exkw=4300) BASIC METABOLIC [id number] 06:55:00 Test Item Value Reference Range Comments SODIUM (BEAKER) (test 131 meq/L 136-145 equp=532) POTASSIUM (BEAKER) (test 4.8 meq/L 3.5-5.1 nwro=998) CHLORIDE (BEAKER) (test 93 meq/L 98-107 qrnh=485) CO2 (BEAKER) (test 20 meq/L 22-29 bdxh=137) BLOOD UREA NITROGEN 99 mg/dL 7-21 (BEAKER) (test itrg=134) CREATININE (BEAKER) (test 4.97 mg/dL 0.57-1.25 hels=080) GLUCOSE RANDOM (BEAKER) 100 mg/dL 70-105 (test dogo=607) CALCIUM (BEAKER) (test 8.3 mg/dL 8.4-10.2 hrzt=406) EGFR (BEAKER) (test 9 mL/min/1.73 sq m ESTIMATED GFR IS NOT kozt=3046) ACCURATE CREATININE CLEARANCE IN PREDICTING GLOMERULAR FILTRATION RATE. ESTIMATED GFR IS NOT APPLICABLE FOR DIALYSIS PATIENTS. [id number] 06:54:00 Test Item Value Reference Range Comments PHOSPHORUS (BEAKER) (test zawf=587) 7.0 mg/dL 2.3-4.7 PTH, [id number] 06:42:00 Test Item Value Reference Range Comments PARATHYROID HORMONE INTACT (BEAKER) (test 690.0 pg/mL 8.5-72.5 kbjt=754) VANCOMYCIN LEVEL, [id number] 06:33:00 Test Item Value Reference Range Comments VANCOMYCIN RANDOM (BEAKER) (test khaw=885) 14.4 ug/mL Reference Range: No NormalsCBC (HEMOGRAM ONLY)2018-03-19 06:14:00 Test Item Value Reference Range Comments WHITE BLOOD CELL COUNT (BEAKER) (test vnxs=376) 5.6 K/ L 3.5-10.5 RED BLOOD CELL COUNT (BEAKER) (test slks=426) 2.35 M/ L 3.93-5.22 HEMOGLOBIN (BEAKER) (test dwcw=329) 7.6 GM/DL 11.2-15.7 HEMATOCRIT (BEAKER) (test sixe=518) 23.7 % 34.1-44.9 MEAN CORPUSCULAR VOLUME (BEAKER) (test equm=123) 100.9 fL 79.4-94.8 MEAN CORPUSCULAR HEMOGLOBIN (BEAKER) (test 32.3 pg 25.6-32.2 ulax=714) MEAN CORPUSCULAR HEMOGLOBIN CONC (BEAKER) (test 32.1 GM/DL 32.2-35.5 tuto=831) RED CELL DISTRIBUTION WIDTH (BEAKER) (test 23.4 % 11.7-14.4 fkla=741) PLATELET COUNT (BEAKER) (test dphv=030) 61 K/CU MM 150-450 NUCLEATED RED BLOOD CELLS (BEAKER) (test 1 /100 WBC 0-0 lybw=484) CBC W/PLT COUNT & AUTO [id number] 16:19:00 Test Item Value Reference Range Comments WHITE BLOOD CELL COUNT 5.0 K/ L 3.5-10.5 (BEAKER) (test upxx=060) RED BLOOD CELL COUNT (BEAKER) 2.35 M/ L 3.93-5.22 (test huqt=423) HEMOGLOBIN (BEAKER) (test 7.6 GM/DL 11.2-15.7 ymfj=640) HEMATOCRIT (BEAKER) (test 23.2 % 34.1-44.9 irbc=767) MEAN CORPUSCULAR VOLUME 98.7 fL 79.4-94.8 (BEAKER) (test bugq=520) MEAN CORPUSCULAR HEMOGLOBIN 32.3 pg 25.6-32.2 (BEAKER) (test vfcv=800) MEAN CORPUSCULAR HEMOGLOBIN 32.8 GM/DL 32.2-35.5 CONC (BEAKER) (test mudp=518) RED CELL DISTRIBUTION WIDTH 22.5 % 11.7-14.4 (BEAKER) (test jzyb=467) PLATELET COUNT (BEAKER) (test 65 K/CU MM 150-450 xfcg=838) MEAN PLATELET VOLUME (BEAKER) fL 9.4-12.3 Unable to report due to (test cmvx=129) abnormal Platelet population distribution. NUCLEATED RED BLOOD CELLS 1 /100 WBC 0-0 (BEAKER) (test apyj=032) NEUTROPHILS RELATIVE PERCENT 77 % (BEAKER) (test yskj=679) LYMPHOCYTES RELATIVE PERCENT 13 % (BEAKER) (test pwuj=031) MONOCYTES RELATIVE PERCENT 9 % (BEAKER) (test pvgy=442) EOSINOPHILS RELATIVE PERCENT 0 % (BEAKER) (test seqi=642) BASOPHILS RELATIVE PERCENT 0 % (BEAKER) (test runs=443) NEUTROPHILS ABSOLUTE COUNT 3.82 K/ L 1.56-6.13 (BEAKER) (test jptx=074) LYMPHOCYTES ABSOLUTE COUNT 0.62 K/ L 1.18-3.74 (BEAKER) (test vvjh=190) MONOCYTES ABSOLUTE COUNT 0.46 K/ L 0.24-0.36 (BEAKER) (test kmil=073) EOSINOPHILS ABSOLUTE COUNT 0.01 K/ L 0.04-0.36 (BEAKER) (test htwg=882) BASOPHILS ABSOLUTE COUNT 0.01 K/ L 0.01-0.08 (BEAKER) (test bqel=519) IMMATURE GRANULOCYTES-RELATIVE 1 % 0-1 PERCENT (BEAKER) (test rmko=3691) BASIC METABOLIC [id number] 16:10:00 Test Item Value Reference Range Comments SODIUM (BEAKER) (test 129 meq/L 136-145 woyi=131) POTASSIUM (BEAKER) (test 4.8 meq/L 3.5-5.1 iwly=288) CHLORIDE (BEAKER) (test 94 meq/L 98-107 sndl=446) CO2 (BEAKER) (test 19 meq/L 22-29 qvfc=388) BLOOD UREA NITROGEN 88 mg/dL 7-21 (BEAKER) (test ywhy=559) CREATININE (BEAKER) (test 4.42 mg/dL 0.57-1.25 dtvj=557) GLUCOSE RANDOM (BEAKER) 111 mg/dL 70-105 (test ymdt=311) CALCIUM (BEAKER) (test 8.4 mg/dL 8.4-10.2 fdxv=955) EGFR (BEAKER) (test 10 mL/min/1.73 sq m ESTIMATED GFR IS NOT lgfj=3329) ACCURATE CREATININE CLEARANCE IN PREDICTING GLOMERULAR FILTRATION RATE. ESTIMATED GFR IS NOT APPLICABLE FOR DIALYSIS PATIENTS. [id number] 11:52:00 Test Item Value Reference Range Comments HAPTOGLOBIN (BEAKER) (test cdyk=002) 34 mg/dL 14-258 PERIPHERAL BLOOD SMEAR - HOLD [id number] 10:25:00 Test Item Value Reference Range Comments PERIPHERAL SMEAR SAVE (BEAKER) (test nkbr=7635) saved CALCIUM, [id number] 09:40:00 Test Item Value Reference Range Comments CALCIUM IONIZED (BEAKER) (test wzzy=793) 0.94 mmol/L 1.12-1.27 PH, BLOOD (BEAKER) (test cpyu=3524) 7.48 LACTATE DEHYDROGENASE (LDH)2018-03-18 09:27:00 Test Item Value Reference Range Comments LACTATE DEHYDROGENASE (BEAKER) (test jzsp=088) 599 U/L 125-220 CBC (HEMOGRAM ONLY)2018-03-18 09:27:00 Test Item Value Reference Range Comments WHITE BLOOD CELL COUNT (BEAKER) (test xllj=630) 4.2 K/ L 3.5-10.5 RED BLOOD CELL COUNT (BEAKER) (test dngf=322) 2.34 M/ L 3.93-5.22 HEMOGLOBIN (BEAKER) (test bodn=435) 7.4 GM/DL 11.2-15.7 HEMATOCRIT (BEAKER) (test mmum=209) 22.8 % 34.1-44.9 MEAN CORPUSCULAR VOLUME (BEAKER) (test wbhg=373) 97.4 fL 79.4-94.8 MEAN CORPUSCULAR HEMOGLOBIN (BEAKER) (test 31.6 pg 25.6-32.2 ybtl=392) MEAN CORPUSCULAR HEMOGLOBIN CONC (BEAKER) (test 32.5 GM/DL 32.2-35.5 ncxl=167) RED CELL DISTRIBUTION WIDTH (BEAKER) (test 22.5 % 11.7-14.4 brdn=080) PLATELET COUNT (BEAKER) (test sjfv=852) 39 K/CU MM 150-450 NUCLEATED RED BLOOD CELLS (BEAKER) (test 1 /100 WBC 0-0 aown=440) RETICULOCYTE [id number] 09:24:00 Test Item Value Reference Range Comments RETICULOCYTE COUNT PCT (BEAKER) (test zlth=408) 6.9 % 0.5-1.7 [id number] 09:16:00 Test Item Value Reference Range Comments D-DIMER QUANTITATIVE (BEAKER) (test mkva=105) 3.18 MG/L FEU <0.50 Intended Use: The D-Dimer Assay can be used to aid in the diagnosis of Deep Vein Thrombosis (DVT) and Pulmonary Embolism Disease (PED).In patients with low pre-test probability, various studies concerning STA Liatest D-dimer test have reported that with a cutoff value of 0.50 MG/L FEU, the Negative Predictive Value (NPV) regarding the exclusion of thrombosis is within 95-100% range.[id number] 09:14:00 Test Item Value Reference Range Comments PARTIAL THROMBOPLASTIN TIME (BEAKER) (test 38.9 seconds 22.5-36.0 vtui=967) PROTHROMBIN [id number] 09:13:00 Test Item Value Reference Range Comments PROTIME (BEAKER) (test sgyn=535) 15.3 seconds 11.7-14.7 INR (BEAKER) (test xxui=288) 1.2 <=5.9 RECOMMENDED COUMADIN/WARFARIN INR THERAPY RANGESSTANDARD DOSE: 2.0 - 3.0 Includes: PROPHYLAXIS forvenous thrombosis, systemic embolization; TREATMENT for venous thrombosis and/or pulmonary embolus.HIGH RISK: Target INR is 2.5-3.5 for patients with mechanical heart valves.BASIC METABOLIC [id number] 08:52: 00 Test Item Value Reference Range Comments SODIUM (BEAKER) (test 135 meq/L 136-145 chvn=873) POTASSIUM (BEAKER) (test 4.9 meq/L 3.5-5.1 ahvt=547) CHLORIDE (BEAKER) (test 96 meq/L 98-107 yxcw=926) CO2 (BEAKER) (test 23 meq/L 22-29 zwsc=174) BLOOD UREA NITROGEN 77 mg/dL 7-21 (BEAKER) (test ktcw=872) CREATININE (BEAKER) (test 4.04 mg/dL 0.57-1.25 sbtf=546) GLUCOSE RANDOM (BEAKER) 137 mg/dL 70-105 (test fdbe=832) CALCIUM (BEAKER) (test 8.8 mg/dL 8.4-10.2 qrca=297) EGFR (BEAKER) (test 12 mL/min/1.73 sq m ESTIMATED GFR IS NOT wbxa=6490) ACCURATE CREATININE CLEARANCE IN PREDICTING GLOMERULAR FILTRATION RATE. ESTIMATED GFR IS NOT APPLICABLE FOR DIALYSIS PATIENTS. CALCIUM, [id number] 08:21:00 Test Item Value Reference Range Comments CALCIUM IONIZED (BEAKER) (test bcbf=824) 0.72 mmol/L 1.12-1.27 PH, BLOOD (BEAKER) (test okjm=3564) 7.46 OSMOLALITY, [id number] 07:36:00 Test Item Value Reference Range Comments OSMOLALITY URINE (BEAKER) (test fxmk=862) 316 mOsm/kg 40-1400 OSMOLALITY, [id number] 07:34:00 Test Item Value Reference Range Comments OSMOLALITY, SERUM (BEAKER) (test azum=509) 303 mOsm/kg 275-295 CREATININE, RANDOM [id number] 07:26:00 Test Item Value Reference Range Comments CREATININE URINE (BEAKER) (test iwgk=613) 36.3 mg/dL Reference Range: No NormalsPOTASSIUM, RANDOM [id number] 07:26:00 Test Item Value Reference Range Comments POTASSIUM URINE (BEAKER) (test posb=357) 41.5 meq/L Reference Range: No NormalsSODIUM, RANDOM [id number] 07:26:00 Test Item Value Reference Range Comments SODIUM URINE (BEAKER) (test adsi=083) 57 meq/L Reference Range: No NormalsUREA NITROGEN, RANDOM [id number] 07:26:00 Test Item Value Reference Range Comments UREA NITROGEN URINE (BEAKER) (test enzk=640) 298 mg/dL Reference Range: No NormalsPERIPHERAL BLOOD SMEAR - HOLD [id number] 07:20:00 Test Item Value Reference Range Comments PERIPHERAL SMEAR SAVE (BEAKER) (test jadn=0781) saved BASIC METABOLIC [id number] 06:08:00 Test Item Value Reference Range Comments SODIUM (BEAKER) (test 128 meq/L 136-145 jjez=470) POTASSIUM (BEAKER) (test 4.6 meq/L 3.5-5.1 ukgr=189) CHLORIDE (BEAKER) (test 94 meq/L 98-107 lcnt=692) CO2 (BEAKER) (test 20 meq/L 22-29 zsib=456) BLOOD UREA NITROGEN 84 mg/dL 7-21 (BEAKER) (test zlec=600) CREATININE (BEAKER) (test 4.34 mg/dL 0.57-1.25 yfhu=147) GLUCOSE RANDOM (BEAKER) 120 mg/dL 70-105 (test niof=464) CALCIUM (BEAKER) (test 6.8 mg/dL 8.4-10.2 zqdq=301) EGFR (BEAKER) (test 11 mL/min/1.73 sq m ESTIMATED GFR IS NOT kcfu=0563) ACCURATE CREATININE CLEARANCE IN PREDICTING GLOMERULAR FILTRATION RATE. ESTIMATED GFR IS NOT APPLICABLE FOR DIALYSIS PATIENTS. VANCOMYCIN LEVEL, [id number] 06:05:00 Test Item Value Reference Range Comments VANCOMYCIN RANDOM (BEAKER) (test pelv=428) < ug/mL Reference Range: No NormalsCALCIUM, [id number] 04:20:00 Test Item Value Reference Range Comments CALCIUM IONIZED (BEAKER) (test jdqh=870) 0.81 mmol/L 1.12-1.27 PH, BLOOD (BEAKER) (test gqrz=0664) 7.40 Range 1.12 - 1.68K-[id number] 03:54:00 Test Item Value Reference Range Comments D-DIMER QUANTITATIVE (BEAKER) (test ljgz=192) 4.50 MG/L FEU <0.50 Intended Use: The D-Dimer Assay can be used to aid in the diagnosis of Deep Vein Thrombosis (DVT) and Pulmonary Embolism Disease (PED).In patients with low pre-test probability, various studies concerning STA Liatest D-dimer test have reported that with a cutoff value of 0.50 MG/L FEU, the Negative Predictive Value (NPV) regarding the exclusion of thrombosis is within 95-100% range.[id number] 02:58:00 Test Item Value Reference Range Comments PROCALCITONIN (BEAKER) (test oaay=0552) 8.65 ng/mL <0.05 SEPSIS RISK (ng/mL)Low: 0.05-0.50Intermediate: 0.51-2.00High: & gt;=2.01TROPONIN [id number] 02:29:00 Test Item Value Reference Range Comments TROPONIN I (BEAKER) (test zcgz=381) 0.77 ng/mL 0.00-0.03 Troponin I (TnI) levels [...] acute neurological disease, and persistent tachyarrhythmia.COMPREHENSIVE METABOLIC [id number] 02:11:00 Test Item Value Reference Range Comments TOTAL PROTEIN (BEAKER) 6.8 gm/dL 6.0-8.3 (test ujde=834) ALBUMIN (BEAKER) (test 2.9 g/dL 3.5-5.0 itoq=3797) ALKALINE PHOSPHATASE 100 U/L 40-150 (BEAKER) (test oqcf=750) BILIRUBIN TOTAL (BEAKER) 1.4 mg/dL 0.2-1.2 (test ealv=784) SODIUM (BEAKER) (test 127 meq/L 136-145 foyl=249) POTASSIUM (BEAKER) (test 5.0 meq/L 3.5-5.1 jwpv=980) CHLORIDE (BEAKER) (test 101 meq/L 98-107 mjwq=080) CO2 (BEAKER) (test 15 meq/L 22-29 bgat=024) BLOOD UREA NITROGEN 87 mg/dL 7-21 (BEAKER) (test tftl=171) CREATININE (BEAKER) (test 4.62 mg/dL 0.57-1.25 kcpp=215) GLUCOSE RANDOM (BEAKER) 128 mg/dL 70-105 (test dktt=800) CALCIUM (BEAKER) (test 6.9 mg/dL 8.4-10.2 yyak=125) AST (SGOT) (BEAKER) (test 79 U/L 5-34 yczb=183) ALT (SGPT) (BEAKER) (test 45 U/L 6-55 yaac=144) EGFR (BEAKER) (test 10 mL/min/1.73 sq m ESTIMATED GFR IS NOT wifb=8658) ACCURATE CREATININE CLEARANCE IN PREDICTING GLOMERULAR FILTRATION RATE. ESTIMATED GFR IS NOT APPLICABLE FOR DIALYSIS PATIENTS. RAD, CHEST, 1 VIEW, NON [id number] 01:44:00Reason for exam:-> HEMODIALYSIS CATHTER PLACEMENTShould this [...] Vázquez Verified Date/Time: 03/18/2018 01:44:10 Reading Location: [address] Body Reading Room [id number] 01:37:00 Test Item Value Reference Range Comments FIBRINOGEN LEVEL (BEAKER) (test ixnr=702) 466 mg/dl 225-434 [id number] 01:37:00 Test Item Value Reference Range Comments PARTIAL THROMBOPLASTIN TIME (BEAKER) (test 33.6 seconds 22.5-36.0 zbea=657) PROTHROMBIN TIME/[id number] 01:36:00 Test Item Value Reference Range Comments PROTIME (BEAKER) (test fcht=704) 17.0 seconds 11.7-14.7 INR (BEAKER) (test dnuh=448) 1.4 <=5.9 RECOMMENDED COUMADIN/WARFARIN INR THERAPY RANGESSTANDARD DOSE: 2.0 - 3.0 Includes: PROPHYLAXIS forvenous thrombosis, systemic embolization; TREATMENT for venous thrombosis and/or pulmonary embolus.HIGH RISK: Target INR is 2.5-3.5 for patients with mechanical heart valves.LACTIC ACID, VENOUS, WHOLE [id number] 01:26:00 Test Item Value Reference Range Comments LACTATE BLOOD VENOUS (2) (BEAKER) (test 1.7 mmol/L 0.5-2.2 lxly=4858) Effective 11/28/2015: Units/Reference Range ChangeNew: 0.5-2.2 mmol/L Previous: 5 -20 mg/dLCBC (HEMOGRAM ONLY)2018-03-18 01:16:00 Test Item Value Reference Range Comments WHITE BLOOD CELL COUNT (BEAKER) (test jkhq=889) 4.3 K/ L 3.5-10.5 RED BLOOD CELL COUNT (BEAKER) (test yyar=094) 2.67 M/ L 3.93-5.22 HEMOGLOBIN (BEAKER) (test fgti=354) 8.6 GM/DL 11.2-15.7 HEMATOCRIT (BEAKER) (test elgi=708) 25.6 % 34.1-44.9 MEAN CORPUSCULAR VOLUME (BEAKER) (test wkbf=346) 95.9 fL 79.4-94.8 MEAN CORPUSCULAR HEMOGLOBIN (BEAKER) (test 32.2 pg 25.6-32.2 rkuc=947) MEAN CORPUSCULAR HEMOGLOBIN CONC (BEAKER) (test 33.6 GM/DL 32.2-35.5 uxig=995) RED CELL DISTRIBUTION WIDTH (BEAKER) (test 21.9 % 11.7-14.4 jrpi=573) PLATELET COUNT (BEAKER) (test tgvg=342) 39 K/CU MM 150-450 NUCLEATED RED BLOOD CELLS (BEAKER) (test 1 /100 WBC 0-0 hyjt=365) CT, BIOPSY, BONE [id number] 17:06:00Reason for exam:->pancytopenia in setting of metastatic breast cancer, chemotherapy held almost 2monthsFINAL REPORT PROCEDURE: CT-guided bone marrow biopsy DOSE REDUCTION: The examination was performed according to departmental dose- optimization program which includes automated exposure control, adjustment of the mA and/or kV according to patient size and/or use of iterative reconstruction technique. Clinical History: P[address] Administrative Engineer: Marce Conscious sedation: Versed 1 mg,fentanyl 50 [...] was immediately removed and provided to the applied technologist. Subsequently a core biopsy was obtained using the outer sheath. The needle and sheath were removed.Postprocedure CT evaluation of the area revealed no significant hematoma. Patient tolerated the procedure well and remained hemodynamically stable throughout. IMPRESSION: Successful and uncomplicated CT -guided bone marrow aspiration and core biopsy. Signed: Jordan Sultana MDReport Verified Date/Time: 03/17/2018 17:06:03 Reading Location: [facility] Radiology Reading Room 05: 06 PMBONE MARROW PROCESS ([facility]2018-03-17 15:16:00 Test Item Value Reference Range Comments ANATOMIC CASE# (ADDY) (test napj=0793) [id number] ORDERED BY DOCTORJoseph CACERES) (test tsei=8863) jordan Sultana m.d. PERFORMED BY DANIKA CACERES) (test Jordan Sultana m.d. bidt=7099) CLOT RECEIVED? (BETON) (test nqzx=5299) Yes BIOPSY RECEIVED? (BEAKER) (test fzzt=4737) Yes CULTURE RECEIVED? (BEAKER) (test ifen=1488) No FLOW RECEIVED? (BETON) (test dscs=6937) Yes CYTOGENICS? (BEAKER) (test rkjw=5514) Yes MOLECULAR GENETICS? (BEAKER) (test No cvkd=3134) RAD, CHEST, 2 [id number] 13:39:00Reason for exam:->sobFINAL REPORT Comparison: 15/08/2017 TECHNIQUE: 2 views of the chest FINDINGS: There is mild vascular congestion. There are small pleural effusions. Cardiac silhouette is enlarged.Left internal jugular chest port noted with tip at the cavoatrial junction. Surgical clips project over the right chest wall. Signed: Jordan Sultana MDReport Verified Date/Time: 03/17/2018 13:39:16 Reading Location: [facility] Radiology Reading Room [id number] 13:20:00 Test Item Value Reference Range Comments HAPTOGLOBIN (BEAKER) (test muwj=607) < mg/dL 14-258 COMPLEMENT COMPONENT [id number] 12:57:00 Test Item Value Reference Range Comments C4 COMPLEMENT (BEAKER) (test ivgg=238) 22 mg/dL 15-57 COMPLEMENT COMPONENT [id number] 12:57:00 Test Item Value Reference Range Comments C3 COMPLEMENT (BEAKER) (test lfwd=121) 94 mg/dL 82-193 PERIPHERAL BLOOD SMEAR - PATHOLOGIST [id number] 09:47:00 Test Item Value Reference Range Comments PERIPHERAL SMR REVIEW Normochromic normocytic anemia (BEAKER) (test jouy=0556) with rare schistocytes seen (1-2/ HPF). WBCs normal in number and morphology. Thrombocytopenia with a few large forms. [id number] Michelle Yu M.D. (electronic (BEAKER) (test ygca=2369) signature) TROPONIN [id number] 07:07:00 Test Item Value Reference Range Comments TROPONIN I (BEAKER) (test fmwr=619) 1.56 ng/mL 0.00-0.15 Troponin I (TnI) levels [...] acute neurological disease, and persistent tachyarrhythmia.BASIC METABOLIC [id number] 07:06:00 Test Item Value Reference Range Comments SODIUM (BEAKER) (test 131 meq/L 135-148 tmal=879) POTASSIUM (BEAKER) (test 5.8 meq/L 3.6-5.5 flvz=382) CHLORIDE (BEAKER) (test 107 meq/L 98-106 bxkb=988) CO2 (BEAKER) (test 12 meq/L 20-29 toji=988) BLOOD UREA NITROGEN 74 mg/dL 10-26 (BEAKER) (test rdcf=852) CREATININE (BEAKER) (test 3.95 mg/dL 0.50-1.20 zyye=744) GLUCOSE RANDOM (BEAKER) 133 mg/dL 70-110 (test ejov=793) CALCIUM (BEAKER) (test 7.6 mg/dL 8.5-10.5 leki=903) EGFR (BEAKER) (test 12 mL/min/1.73 sq m ESTIMATED GFR IS NOT klbf=9008) ACCURATE CREATININE CLEARANCE IN PREDICTING GLOMERULAR FILTRATION RATE. ESTIMATED GFR IS NOT APPLICABLE FOR DIALYSIS PATIENTS. [id number] 06:45:00 Test Item Value Reference Range Comments MAGNESIUM (BEAKER) (test frac=984) 2.0 mg/dL 1.5-3.0 CBC W/PLT COUNT & AUTO [id number] 06:35:00 Test Item Value Reference Range Comments WHITE BLOOD CELL COUNT (BEAKER) (test xzar=243) 8.7 K/ L 4.0-10.0 RED BLOOD CELL COUNT (BEAKER) (test tzbv=794) 3.26 M/ L 4.00-5.00 HEMOGLOBIN (BEAKER) (test rqes=826) 10.2 GM/DL 12.0-15.5 HEMATOCRIT (BEAKER) (test dqhc=360) 31.9 % 36.0-46.0 MEAN CORPUSCULAR VOLUME (BEAKER) (test hnlf=291) 97.9 fL 82.0-99.0 MEAN CORPUSCULAR HEMOGLOBIN (BEAKER) (test 31.3 pg 27.0-33.0 ldsz=895) MEAN CORPUSCULAR HEMOGLOBIN CONC (BEAKER) (test 32.0 GM/DL 32.0-36.0 jiai=389) RED CELL DISTRIBUTION WIDTH (BEAKER) (test 20.8 % 12.0-15.0 tjax=926) PLATELET COUNT (BEAKER) (test ddez=527) 62 K/CU MM 150-430 MEAN PLATELET VOLUME (BEAKER) (test jwzk=316) 10.5 fL 6.0-11.5 NUCLEATED RED BLOOD CELLS (BEAKER) (test 0 /100 WBC 0-0 emti=396) NEUTROPHILS RELATIVE PERCENT (BEAKER) (test 80 % vpfd=822) LYMPHOCYTES RELATIVE PERCENT (BEAKER) (test 11 % laes=349) MONOCYTES RELATIVE PERCENT (BEAKER) (test 8 % koec=873) EOSINOPHILS RELATIVE PERCENT (BEAKER) (test 0 % uecl=447) BASOPHILS RELATIVE PERCENT (BEAKER) (test 0 % vtlx=311) NEUTROPHILS ABSOLUTE COUNT (BEAKER) (test 6.95 K/ L 1.80-8.00 gdvb=772) LYMPHOCYTES ABSOLUTE COUNT (BEAKER) (test 0.92 K/ L 1.48-4.50 mpgm=883) MONOCYTES ABSOLUTE COUNT (BEAKER) (test dnrk=356) 0.72 K/ L 0.00-1.30 EOSINOPHILS ABSOLUTE COUNT (BEAKER) (test 0.00 K/ L 0.00-0.50 oihc=930) BASOPHILS ABSOLUTE COUNT (BEAKER) (test vzii=236) 0.01 K/ L 0.00-0.20 IMMATURE GRANULOCYTES-RELATIVE PERCENT (BEAKER) 1 % 0-0 (test yivk=7037) BLOOD GAS, [id number] 05:27:00 Test Item Value Reference Range Comments PH ARTERIAL (BEAKER) (test guqc=353) 7.40 7.35-7.45 PCO2 ARTERIAL (BEAKER) (test yzjv=880) 18 mmHg 35-45 PO2 ARTERIAL (BEAKER) (test uhio=305) 72 mmHg 80-90 O2 SATURATION ARTERIAL (BEAKER) (test uboz=056) 94.7 % 96.0-97.0 HCO3 ARTERIAL (BEAKER) (test rvsk=572) 11 mmol/L 21-29 BASE EXCESS ARTERIAL (BEAKER) (test zscz=470) -12.0 mmol/L -2.0-3.0 PATIENT TEMPERATURE (BEAKER) (test sole=2517) 37.5 C FIO2 (BEAKER) (test toyy=0545) 28.0 % PROTEIN, RANDOM [id number] 00:47:00 Test Item Value Reference Range Comments PROTEIN, URINE (BEAKER) (test zjyi=7896) 432 mg/dL 0-14 CREATININE, RANDOM [id number] 00:03:00 Test Item Value Reference Range Comments CREATININE URINE (BEAKER) (test pzoe=334) 68.6 mg/dL Reference Range: No NormalsURINALYSIS W/ [id number] 23:56:00 Test Item Value Reference Range Comments COLOR (BEAKER) (test wahv=306) Yellow CLARITY (BEAKER) (test dcln=620) Clear SPECIFIC GRAVITY UA (BEAKER) (test iqun=330) 1.020 1.001-1.035 PH UA (BEAKER) (test inxk=502) 5.5 5.0-8.0 PROTEIN UA (BEAKER) (test dlna=199) >=300 mg/dL Negative GLUCOSE UA (BEAKER) (test oiwt=972) Negative Negative KETONES UA (BEAKER) (test dkgn=824) Negative Negative BILIRUBIN UA (BEAKER) (test dwrr=993) Negative Negative BLOOD UA (BEAKER) (test ygdf=765) Large Negative NITRITE UA (BEAKER) (test xlye=064) Negative Negative LEUKOCYTE ESTERASE UA (BEAKER) (test ydge=008) Trace Negative UROBILINOGEN UA (BEAKER) (test dppu=061) 0.2 mg/dL 0.2-1.0 BACTERIA (BEAKER) (test jjvg=043) Occasional AMORPHOUS CRYSTALS (BEAKER) (test hkth=5015) Few RBC UA-MANUAL (BEAKER) (test rfss=5617) 5-10 /HPF WBC UA-MANUAL (BEAKER) (test gtlt=2889) <5 /HPF SQUAMOUS EPITHELIAL MANUAL (BEAKER) (test 5-10 /HPF youf=4111) GRANULAR CASTS MANUAL (BEAKER) (test zmhd=9432) Few /LPF SOURCE(BEAKER) (test trmj=2657) KETONE, [id number] 22:28:00 Test Item Value Reference Range Comments KETONES, BLOOD (BEAKER) (test syar=0275) 0.3 mmol/L <0.4 BILIRUBIN, TOTAL AND [id number] 22:17:00 Test Item Value Reference Range Comments BILIRUBIN TOTAL (BEAKER) (test ybbx=414) 2.1 mg/dL 0.1-1.2 BILIRUBIN DIRECT (BEAKER) (test xkds=979) 1.1 mg/dL 0.0-0.4 LACTATE DEHYDROGENASE (LDH)[id number] 22:16:00 Test Item Value Reference Range Comments LACTATE DEHYDROGENASE (BEAKER) (test gusr=387) 1540 U/L 107-206 TROPONIN [id number] 19:44:00 Test Item Value Reference Range Comments TROPONIN I (BEAKER) (test hwqn=262) 0.24 ng/mL 0.00-0.15 Troponin I (TnI) levels [...] acidosis, acute neurological disease, and persistent tachyarrhythmia.TROPONIN [id number] 10:58:00 Test Item Value Reference Range Comments TROPONIN I (BEAKER) (test akki=140) 0.17 ng/mL 0.00-0.15 Troponin I (TnI) levels [...] and persistent tachyarrhythmia.CREATINE KINASE (CK), TOTAL AND [id number] 10:57:00 Test Item Value Reference Range Comments CREATINE KINASE TOTAL (BEAKER) (test qcox=877) 125 U/L 25-235 CREATINE KINASE-MB (BEAKER) (test ifhv=461) 0.9 ng/mL 0.0-4.9 CREATINE KINASE-MB INDEX (BEAKER) (test vlqj=307) 0.7 % CK-MB Reference Range:<5 Normal5-10 Borderline>10 AbnormalCOMPREHENSIVE METABOLIC [id number] 10:53:00 Test Item Value Reference Range Comments TOTAL PROTEIN (BEAKER) 7.7 gm/dL 6.0-8.5 (test scry=481) ALBUMIN (BEAKER) (test 3.4 g/dL 3.5-5.0 kian=0942) ALKALINE PHOSPHATASE 45 U/L 30-115 (BEAKER) (test vzfh=935) BILIRUBIN TOTAL (BEAKER) 1.4 mg/dL 0.1-1.2 (test iocj=406) SODIUM (BEAKER) (test 132 meq/L 135-148 tyhm=269) POTASSIUM (BEAKER) (test 4.8 meq/L 3.6-5.5 rtzx=203) CHLORIDE (BEAKER) (test 106 meq/L 98-106 ybox=408) CO2 (BEAKER) (test 13 meq/L 20-29 jmmp=926) BLOOD UREA NITROGEN 63 mg/dL 10-26 (BEAKER) (test plxr=072) CREATININE (BEAKER) (test 3.73 mg/dL 0.50-1.20 wcig=717) GLUCOSE RANDOM (BEAKER) 94 mg/dL 70-110 (test dudy=483) CALCIUM (BEAKER) (test 8.2 mg/dL 8.5-10.5 heft=755) AST (SGOT) (BEAKER) (test 59 U/L 5-40 xjev=149) ALT (SGPT) (BEAKER) (test 23 U/L 5-50 qges=089) EGFR (BEAKER) (test 13 mL/min/1.73 sq m ESTIMATED GFR IS NOT hfkw=6747) ACCURATE CREATININE CLEARANCE IN PREDICTING GLOMERULAR FILTRATION RATE. ESTIMATED GFR IS NOT APPLICABLE FOR DIALYSIS PATIENTS. URINALYSIS W/ [id number] 10:49:00 Test Item Value Reference Range Comments COLOR (BEAKER) (test ovfx=388) Yellow CLARITY (BEAKER) (test xhzw=993) Clear SPECIFIC GRAVITY UA (BEAKER) (test jpnj=981) 1.020 1.001-1.035 PH UA (BEAKER) (test lnht=628) 5.5 5.0-8.0 PROTEIN UA (BEAKER) (test snji=835) >=300 mg/dL Negative GLUCOSE UA (BEAKER) (test apji=295) Negative Negative KETONES UA (BEAKER) (test uswj=891) Negative Negative BILIRUBIN UA (BEAKER) (test zjnq=862) Negative Negative BLOOD UA (BEAKER) (test aqtw=873) Large Negative NITRITE UA (BEAKER) (test fdwr=721) Negative Negative LEUKOCYTE ESTERASE UA (BEAKER) (test bzoh=680) Negative Negative UROBILINOGEN UA (BEAKER) (test ncuz=122) 0.2 mg/dL 0.2-1.0 BACTERIA (BEAKER) (test etyp=762) Few AMORPHOUS CRYSTALS (BEAKER) (test qopp=5590) Moderate RBC UA-MANUAL (BEAKER) (test twjx=1817) 5-10 /HPF WBC UA-MANUAL (BEAKER) (test wjko=6668) <5 /HPF SQUAMOUS EPITHELIAL MANUAL (BEAKER) (test 5-10 /HPF mnkd=6072) WAXY CASTS MANUAL (BEAKER) (test qclq=8687) 5-10 /LPF SOURCE(BEAKER) (test gzgv=0011) CBC W/PLT COUNT & AUTO [id number] 10:49:00 Test Item Value Reference Range Comments WHITE BLOOD CELL COUNT (BEAKER) (test piks=019) 4.0 K/ L 4.0-10.0 RED BLOOD CELL COUNT (BEAKER) (test jhoh=197) 1.64 M/ L 4.00-5.00 HEMOGLOBIN (BEAKER) (test khrg=006) 5.5 GM/DL 12.0-15.5 HEMATOCRIT (BEAKER) (test dtol=922) 17.6 % 36.0-46.0 MEAN CORPUSCULAR VOLUME (BEAKER) (test qptg=080) 107.3 fL 82.0-99.0 MEAN CORPUSCULAR HEMOGLOBIN (BEAKER) (test 33.5 pg 27.0-33.0 etbf=443) MEAN CORPUSCULAR HEMOGLOBIN CONC (BEAKER) (test 31.3 GM/DL 32.0-36.0 deuj=533) RED CELL DISTRIBUTION WIDTH (BEAKER) (test 23.5 % 12.0-15.0 ivjb=748) PLATELET COUNT (BEAKER) (test mlxc=335) 66 K/CU MM 150-430 MEAN PLATELET VOLUME (BEAKER) (test rzid=807) 11.3 fL 6.0-11.5 NUCLEATED RED BLOOD CELLS (BEAKER) (test 0 /100 WBC 0-0 hoza=378) NEUTROPHILS RELATIVE PERCENT (BEAKER) (test 81 % dtan=453) LYMPHOCYTES RELATIVE PERCENT (BEAKER) (test 9 % khfw=608) MONOCYTES RELATIVE PERCENT (BEAKER) (test 9 % qncb=933) EOSINOPHILS RELATIVE PERCENT (BEAKER) (test 0 % qijg=971) BASOPHILS RELATIVE PERCENT (BEAKER) (test 0 % jxid=573) NEUTROPHILS ABSOLUTE COUNT (BEAKER) (test 3.21 K/ L 1.80-8.00 evjx=890) LYMPHOCYTES ABSOLUTE COUNT (BEAKER) (test 0.36 K/ L 1.48-4.50 lgrt=671) MONOCYTES ABSOLUTE COUNT (BEAKER) (test fjbg=798) 0.34 K/ L 0.00-1.30 EOSINOPHILS ABSOLUTE COUNT (BEAKER) (test 0.01 K/ L 0.00-0.50 foco=303) BASOPHILS ABSOLUTE COUNT (BEAKER) (test gvor=820) 0.00 K/ L 0.00-0.20 IMMATURE GRANULOCYTES-RELATIVE PERCENT (BEAKER) 1 % 0-0 (test zyhs=1202) (MANUAL DIFFERENTIAL)2018-03-16 10:49:00 Test Item Value Reference Range Comments TOTAL COUNTED (BEAKER) (test zfzc=7797) WBC MORPHOLOGY (BEAKER) (test jtgn=721) Normal PLT MORPHOLOGY (BEAKER) (test vtxu=962) Normal SCHISTOCYTES (BEAKER) (test durx=144) 1+ few ANISOCYTOSIS (BEAKER) (test oxoy=185) 1+ few MACROCYTES (BEAKER) (test giwb=932) 1+ few MICROCYTES (BEAKER) (test pooq=320) 1+ few POIKILOCYTES (BEAKER) (test ckzf=007) 1+ few POLYCHROMATOPHILLIC RBCS(BEAKER) (test zajc=155) 1+ few [id number] 10:46:00 Test Item Value Reference Range Comments PROTIME (BEAKER) (test toau=676) 11.1 sec 9.3-12.0 INR (BEAKER) (test afod=603) 1.0 <=5.9 PARTIAL THROMBOPLASTIN TIME (BEAKER) (test 31.0 sec 23.0-35.0 evyi=335) RECOMMENDED COUMADIN/WARFARIN INR THERAPY RANGESSTANDARD DOSE: 2.0 - 3.0 Includes: PROPHYLAXIS forvenous thrombosis, systemic embolization; TREATMENT for venous thrombosis and/or pulmonary embolus.HIGH RISK: Target INR is 2.5-3.5 for patients with mechanical heart valves.Final Information (Auto Output)Final Information (Auto Output)Final Information (Auto Output)LACTIC ACID, VENOUS, WHOLE [id number] 10:45:00 Test Item Value Reference Range Comments LACTATE BLOOD VENOUS (2) (BEAKER) (test 2.2 mmol/L 0.5-2.2 qtmp=9594) Effective 11/28/2015: Units/Reference Range ChangeNew: 0.5-2.2 mmol/L Previous: 5 -18 mg/dLRAD, CHEST, 1 VIEW, NON [id number] 10:14:00Reason for exam:-> chest painIs the patient [...] MDReport Verified Date/Time: 03/16/2018 10:14:32 Reading Location: [facility] Radiology Reading Room 10: 14 AMBLOOD [id number] 22:01:00 Test Item Value Reference Range Comments CULTURE (BEAKER) (test yruc=7167) No growth in 5 days BLOOD [id number] 22:01:00 Test Item Value Reference Range Comments CULTURE (BEAKER) (test fumh=3488) No growth in 5 days RESPIRATORY PANEL [id number] 09:21:00 Test Item Value Reference Range Comments HUMAN METAPNEUMOVIRUS (BEAKER) (test Not detected Not detected, Inconclusive arra=0475) RHINOVIRUS (BEAKER) (test wowt=1696) Not detected Not detected, Inconclusive INFLUENZA A (BEAKER) (test Not detected Not detected, Inconclusive dxii=9697) INFLUENZA A SUBTYPE H1 (BEAKER) Not detected Not detected, Inconclusive (test kqah=7657) INFLUENZA A SUBTYPE H3 (BEAKER) Not detected Not detected, Inconclusive (test vpqy=5978) INFLUENZA A SUBTYPE H1-2009 (BEAKER) Not detected Not detected, Inconclusive (test zxti=3984) INFLUENZA B (BEAKER) (test Not detected Not detected, Inconclusive ggum=2720) RESPIRATORY SYNCYTIAL VIRUS (BEAKER) Not detected Not detected, Inconclusive (test nxaw=7741) PARAINFLUENZA VIRUS 1 (BEAKER) (test Not detected Not detected, Inconclusive vcpp=9999) PARAINFLUENZA VIRUS 2 (BEAKER) (test Not detected Not detected, Inconclusive qnwz=5088) PARAINFLUENZA VIRUS 3 (BEAKER) (test Not detected Not detected, Inconclusive idpt=2383) PARAINFLUENZA VIRUS 4 (BEAKER) (test Not detected Not detected, Inconclusive qxsd=5844) ADENOVIRUS (BEAKER) (test skoi=1267) Not detected Not detected, Inconclusive CORONAVIRUS 229E (BEAKER) (test Not detected Not detected, Inconclusive prgc=2823) CORONAVIRUS HKU1 (BEAKER) (test Not detected Not detected, Inconclusive jyko=6283) CORONAVIRUS NL63 (BEAKER) (test Not detected Not detected, Inconclusive jtal=9207) CORONAVIRUS OC43 (BEAKER) (test Not detected Not detected, Inconclusive rgua=5324) BORDETELLA PERTUSSIS (BEAKER) (test Not detected Not detected, Inconclusive mfkv=0136) CHLAMYDOPHILA PNEUMONIAE (BEAKER) Not detected Not detected, Inconclusive (test ppeq=1592) MYCOPLASMA PNEUMONIAE (BEAKER) (test Not detected Not detected, Inconclusive aemv=1219) VANCOMYCIN LEVEL, [id number] 07:38:00 Test Item Value Reference Range Comments VANCOMYCIN TROUGH (BEAKER) (test zdua=012) 11.7 ug/mL 10.0-20.0 URINE [id number] 08:56:00 Test Item Value Reference Range Comments CULTURE (BEAKER) (test pcxq=6275) No growth CBC W/PLT COUNT & AUTO [id number] 06:39:00 Test Item Value Reference Range Comments WHITE BLOOD CELL COUNT (BEAKER) (test faux=589) 2.4 K/ L 4.0-10.0 RED BLOOD CELL COUNT (BEAKER) (test egib=357) 2.56 M/ L 4.00-5.00 HEMOGLOBIN (BEAKER) (test oiqc=604) 8.4 GM/DL 12.0-15.0 HEMATOCRIT (BEAKER) (test ljmu=560) 24.6 % 36.0-45.0 MEAN CORPUSCULAR VOLUME (BEAKER) (test idsy=064) 96.4 fL 82.0-99.0 MEAN CORPUSCULAR HEMOGLOBIN (BEAKER) (test 33.0 pg 27.0-33.0 qtfs=194) MEAN CORPUSCULAR HEMOGLOBIN CONC (BEAKER) (test 34.2 GM/DL 32.0-36.0 etlv=366) RED CELL DISTRIBUTION WIDTH (BEAKER) (test 19.7 % 10.3-14.2 gwzx=217) PLATELET COUNT (BEAKER) (test bcgj=559) 108 K/CU MM 150-430 MEAN PLATELET VOLUME (BEAKER) (test ocef=478) 8.8 fL 6.5-10.5 NUCLEATED RED BLOOD CELLS (BEAKER) (test 0 /100 WBC 0-0 sxoj=472) (MANUAL DIFFERENTIAL)2017-12-10 06:39:00 Test Item Value Reference Range Comments NEUTROPHILS - REL (DIFF) (BEAKER) (test sobu=2284) 83 % LYMPHOCYTES - REL (DIFF) (BEAKER) (test safz=7835) 15 % MONOCYTES - REL (DIFF) (BEAKER) (test uebr=6886) 2 % NEUTROPHILS - ABS (DIFF) (BEAKER) (test gntr=4204) 1.99 K/ L 1.80-8.00 LYMPHOCYTES - ABS (DIFF) (BEAKER) (test fpfn=6316) 0.36 K/ L 1.48-4.50 MONOCYTES - ABS (DIFF) (BEAKER) (test uypk=1400) 0.05 K/ L 0.00-1.30 TOTAL COUNTED (BEAKER) (test svhi=1776) 100 WBC MORPHOLOGY (BEAKER) (test voqu=633) Normal PLT MORPHOLOGY (BEAKER) (test bhnv=302) Normal RBC MORPHOLOGY (BEAKER) (test bcqq=662) Normal POCT-GLUCOSE [id number] 14:39:00 Test Item Value Reference Range Comments POC-GLUCOSE METER (BEAKER) 125 mg/dL 70-110 TESTED AT [facility] [address] (test kjay=6192) [address] [facility] [address] CBC W/PLT COUNT & AUTO [id number] 06:47:00 Test Item Value Reference Range Comments WHITE BLOOD CELL COUNT (BEAKER) (test 2.2 K/ L 4.0-10.0 gaig=932) RED BLOOD CELL COUNT (BEAKER) (test 2.72 M/ L 4.00-5.00 omkh=800) HEMOGLOBIN (BEAKER) (test yoxc=450) 9.1 GM/DL 12.0-15.0 HEMATOCRIT (BEAKER) (test slnn=454) 26.2 % 36.0-45.0 MEAN CORPUSCULAR VOLUME (BEAKER) (test 96.3 fL 82.0-99.0 lkvn=090) MEAN CORPUSCULAR HEMOGLOBIN (BEAKER) 33.3 pg 27.0-33.0 (test axov=947) MEAN CORPUSCULAR HEMOGLOBIN CONC 34.5 GM/DL 32.0-36.0 (BEAKER) (test cojp=873) RED CELL DISTRIBUTION WIDTH (BEAKER) 18.3 % 10.3-14.2 (test qcbr=874) PLATELET COUNT (BEAKER) (test vfdt=297) 129 K/CU MM 150-430 No clot detected MEAN PLATELET VOLUME (BEAKER) (test 7.8 fL 6.5-10.5 mvuz=970) NEUTROPHILS RELATIVE PERCENT (BEAKER) 81 % (test adwv=747) LYMPHOCYTES RELATIVE PERCENT (BEAKER) 14 % (test yhzz=717) MONOCYTES RELATIVE PERCENT (BEAKER) 4 % (test byir=014) EOSINOPHILS RELATIVE PERCENT (BEAKER) 0 % (test hwnl=099) BASOPHILS RELATIVE PERCENT (BEAKER) 0 % (test flfu=399) NEUTROPHILS ABSOLUTE COUNT (BEAKER) 1.80 K/ L 1.80-8.00 (test osjv=686) LYMPHOCYTES ABSOLUTE COUNT (BEAKER) 0.30 K/ L 1.48-4.50 (test zucs=967) MONOCYTES ABSOLUTE COUNT (BEAKER) (test 0.10 K/ L 0.00-1.30 hrtx=312) EOSINOPHILS ABSOLUTE COUNT (BEAKER) 0.00 K/ L 0.00-0.50 (test gtyy=465) BASOPHILS ABSOLUTE COUNT (BEAKER) (test 0.00 K/ L 0.00-0.20 lqal=885) BASIC METABOLIC [id number] 05:54:00 Test Item Value Reference Range Comments SODIUM (BEAKER) (test 138 meq/L 135-148 evjn=790) POTASSIUM (BEAKER) (test 3.9 meq/L 3.6-5.5 nbjb=599) CHLORIDE (BEAKER) (test 105 meq/L 98-106 yjis=173) CO2 (BEAKER) (test 26 meq/L 20-29 qbuu=436) BLOOD UREA NITROGEN 14 mg/dL 10-26 (BEAKER) (test vggh=177) CREATININE (BEAKER) (test 0.76 mg/dL 0.50-1.20 upzg=491) GLUCOSE RANDOM (BEAKER) 84 mg/dL 70-110 (test rsib=573) CALCIUM (BEAKER) (test 8.2 mg/dL 8.5-10.5 uecs=000) EGFR (BEAKER) (test 80 mL/min/1.73 sq m ESTIMATED GFR IS NOT azke=2583) ACCURATE CREATININE CLEARANCE IN PREDICTING GLOMERULAR FILTRATION RATE. ESTIMATED GFR IS NOT APPLICABLE FOR DIALYSIS PATIENTS. RAD, CHEST, 2 [id number] 19:36:00Reason for exam:->FEVERIs the patient ?->NoShould this [...] MDReport Verified Date/Time: 12/08/2017 19:36:34 Reading Location: [facility] B1 [id number] Consult Reading Room URINALYSIS W/ [id number] 19:33:00 Test Item Value Reference Range Comments COLOR (BEAKER) (test rmct=250) Yellow CLARITY (BEAKER) (test xtiu=011) Clear SPECIFIC GRAVITY UA (BEAKER) (test hsau=118) <= 1.001-1.035 PH UA (BEAKER) (test vdmo=945) 5.5 5.0-8.0 PROTEIN UA (BEAKER) (test jzcz=387) Negative Negative GLUCOSE UA (BEAKER) (test osue=379) Negative Negative KETONES UA (BEAKER) (test zrsk=859) Negative Negative BILIRUBIN UA (BEAKER) (test cslc=734) Negative Negative BLOOD UA (BEAKER) (test tymp=321) Negative Negative NITRITE UA (BEAKER) (test hpob=336) Negative Negative LEUKOCYTE ESTERASE UA (BEAKER) (test nczv=005) Negative Negative UROBILINOGEN UA (BEAKER) (test siqr=770) 0.2 mg/dL 0.2-1.0 BACTERIA (BEAKER) (test ymaw=337) Occasional RBC UA-MANUAL (BEAKER) (test gcka=3903) <5 /HPF WBC UA-MANUAL (BEAKER) (test zpuy=4689) <5 /HPF SQUAMOUS EPITHELIAL MANUAL (BEAKER) (test <5 /HPF kxxb=2405) SOURCE(BEAKER) (test ijie=1460) COMPREHENSIVE METABOLIC [id number] 19:01:00 Test Item Value Reference Range Comments TOTAL PROTEIN (BEAKER) 8.1 gm/dL 6.0-8.5 (test ukdf=250) ALBUMIN (BEAKER) (test 4.1 g/dL 3.5-5.0 tvju=4301) ALKALINE PHOSPHATASE 75 U/L 30-115 (BEAKER) (test ywlt=590) BILIRUBIN TOTAL (BEAKER) 0.6 mg/dL 0.1-1.2 (test mrfk=586) SODIUM (BEAKER) (test 132 meq/L 135-148 bbtz=046) POTASSIUM (BEAKER) (test 3.6 meq/L 3.6-5.5 lfxq=019) CHLORIDE (BEAKER) (test 97 meq/L 98-106 ehnw=192) CO2 (BEAKER) (test 23 meq/L 20-29 fdtq=265) BLOOD UREA NITROGEN 18 mg/dL 10-26 (BEAKER) (test bzpq=475) CREATININE (BEAKER) (test 1.02 mg/dL 0.50-1.20 nqhh=631) GLUCOSE RANDOM (BEAKER) 102 mg/dL 70-110 (test tnwb=026) CALCIUM (BEAKER) (test 8.6 mg/dL 8.5-10.5 sslo=447) AST (SGOT) (BEAKER) (test 38 U/L 5-40 netm=346) ALT (SGPT) (BEAKER) (test 49 U/L 5-50 gory=907) EGFR (BEAKER) (test 57 mL/min/1.73 sq m ESTIMATED GFR IS NOT zeqq=6115) ACCURATE CREATININE CLEARANCE IN PREDICTING GLOMERULAR FILTRATION RATE. ESTIMATED GFR IS NOT APPLICABLE FOR DIALYSIS PATIENTS. LACTIC ACID, VENOUS, WHOLE [id number] 18:53:00 Test Item Value Reference Range Comments LACTATE BLOOD VENOUS (2) (BEAKER) (test 0.8 mmol/L 0.5-2.2 lyms=5847) Effective 11/28/2015: Units/Reference Range ChangeNew: 0.5-2.2 mmol/L Previous: 5 -18 mg/dLCBC W/PLT COUNT & AUTO [id number] 18:36:00 Test Item Value Reference Range Comments WHITE BLOOD CELL COUNT (BEAKER) (test vecr=200) 3.5 K/ L 4.0-10.0 RED BLOOD CELL COUNT (BEAKER) (test fcnk=871) 2.95 M/ L 4.00-5.00 HEMOGLOBIN (BEAKER) (test bmtt=601) 9.7 GM/DL 12.0-15.0 HEMATOCRIT (BEAKER) (test aoii=470) 28.5 % 36.0-45.0 MEAN CORPUSCULAR VOLUME (BEAKER) (test muba=466) 96.6 fL 82.0-99.0 MEAN CORPUSCULAR HEMOGLOBIN (BEAKER) (test 32.9 pg 27.0-33.0 patr=036) MEAN CORPUSCULAR HEMOGLOBIN CONC (BEAKER) (test 34.0 GM/DL 32.0-36.0 ktgi=597) RED CELL DISTRIBUTION WIDTH (BEAKER) (test 18.5 % 10.3-14.2 onvg=330) PLATELET COUNT (BEAKER) (test dfkn=591) 187 K/CU MM 150-430 MEAN PLATELET VOLUME (BEAKER) (test jthk=002) 7.8 fL 6.5-10.5 NEUTROPHILS RELATIVE PERCENT (BEAKER) (test 84 % ijts=015) LYMPHOCYTES RELATIVE PERCENT (BEAKER) (test 10 % qwvm=809) MONOCYTES RELATIVE PERCENT (BEAKER) (test 5 % pvzp=300) EOSINOPHILS RELATIVE PERCENT (BEAKER) (test 0 % egrh=810) BASOPHILS RELATIVE PERCENT (BEAKER) (test 0 % ijqc=296) NEUTROPHILS ABSOLUTE COUNT (BEAKER) (test 2.90 K/ L 1.80-8.00 xrkj=085) LYMPHOCYTES ABSOLUTE COUNT (BEAKER) (test 0.40 K/ L 1.48-4.50 lmif=788) MONOCYTES ABSOLUTE COUNT (BEAKER) (test 0.20 K/ L 0.00-1.30 uwed=737) EOSINOPHILS ABSOLUTE COUNT (BEAKER) (test 0.00 K/ L 0.00-0.50 vhct=286) BASOPHILS ABSOLUTE COUNT (BEAKER) (test 0.00 K/ L 0.00-0.20 ykbk=524) BLOOD [id number] 13:00:00 Test Item Value Reference Range Comments CULTURE (BEAKER) (test fvqj=7340) No growth in 5 days BLOOD [id number] 10:00:00 Test Item Value Reference Range Comments CULTURE (BEAKER) (test xdth=1809) No growth in 5 days VANCOMYCIN LEVEL, [id number] 14:26:00 Test Item Value Reference Range Comments VANCOMYCIN TROUGH (BEAKER) (test osoj=585) 9.8 ug/mL 10.0-20.0 VANCOMYCIN DOSING BY RX PER DR. Kowalski PRIOR TO 4th DOSE ON 10/22/17 AT13: 30URINE [id number] 08:16:00 Test Item Value Reference Range Comments CULTURE (BEAKER) (test busp=8940) No growth (MANUAL DIFFERENTIAL)2017-10-22 07:06:00 Test Item Value Reference Range Comments NEUTROPHILS - REL (DIFF) (BEAKER) (test vzbv=6831) 69 % LYMPHOCYTES - REL (DIFF) (BEAKER) (test ppad=0215) 27 % MONOCYTES - REL (DIFF) (BEAKER) (test hqdo=7387) 4 % NEUTROPHILS - ABS (DIFF) (BEAKER) (test iwll=2505) 1.52 K/ L 1.80-8.00 LYMPHOCYTES - ABS (DIFF) (BEAKER) (test yvub=7249) 0.59 K/ L 1.48-4.50 MONOCYTES - ABS (DIFF) (BEAKER) (test chit=2338) 0.09 K/ L 0.00-1.30 TOTAL COUNTED (BEAKER) (test lxek=5630) 100 WBC MORPHOLOGY (BEAKER) (test iett=153) Normal PLT MORPHOLOGY (BEAKER) (test ighi=173) Normal RBC MORPHOLOGY (BEAKER) (test ylbs=258) Normal COMPREHENSIVE METABOLIC [id number] 06:39:00 Test Item Value Reference Range Comments TOTAL PROTEIN (BEAKER) 6.8 gm/dL 6.0-8.5 (test mhrd=052) ALBUMIN (BEAKER) (test 3.7 g/dL 3.5-5.0 qgrf=9228) ALKALINE PHOSPHATASE 111 U/L 30-115 (BEAKER) (test sahp=798) BILIRUBIN TOTAL (BEAKER) 0.3 mg/dL 0.1-1.2 (test cwdz=389) SODIUM (BEAKER) (test 138 meq/L 135-148 vmmr=629) POTASSIUM (BEAKER) (test 3.9 meq/L 3.6-5.5 jwus=601) CHLORIDE (BEAKER) (test 102 meq/L 98-106 xckw=786) CO2 (BEAKER) (test 28 meq/L 20-29 qufx=721) BLOOD UREA NITROGEN 9 mg/dL 10-26 (BEAKER) (test uutj=323) CREATININE (BEAKER) (test 0.70 mg/dL 0.50-1.20 royy=628) GLUCOSE RANDOM (BEAKER) 85 mg/dL 70-110 (test llao=084) CALCIUM (BEAKER) (test 9.1 mg/dL 8.5-10.5 ahsz=993) AST (SGOT) (BEAKER) (test 141 U/L 5-40 ersa=345) ALT (SGPT) (BEAKER) (test 276 U/L 5-50 trus=605) EGFR (BEAKER) (test 88 mL/min/1.73 sq m ESTIMATED GFR IS NOT tqqb=3971) ACCURATE CREATININE CLEARANCE IN PREDICTING GLOMERULAR FILTRATION RATE. ESTIMATED GFR IS NOT APPLICABLE FOR DIALYSIS PATIENTS. CBC W/PLT COUNT & AUTO [id number] 06:22:00 Test Item Value Reference Range Comments WHITE BLOOD CELL COUNT (BEAKER) (test zcde=741) 2.2 K/ L 4.0-10.0 RED BLOOD CELL COUNT (BEAKER) (test wltb=768) 3.12 M/ L 4.00-5.00 HEMOGLOBIN (BEAKER) (test mjig=108) 9.7 GM/DL 12.0-15.0 HEMATOCRIT (BEAKER) (test pzwg=807) 28.5 % 36.0-45.0 MEAN CORPUSCULAR VOLUME (BEAKER) (test vglb=598) 91.2 fL 82.0-99.0 MEAN CORPUSCULAR HEMOGLOBIN (BEAKER) (test 31.2 pg 27.0-33.0 sfsc=856) MEAN CORPUSCULAR HEMOGLOBIN CONC (BEAKER) (test 34.2 GM/DL 32.0-36.0 oczr=564) RED CELL DISTRIBUTION WIDTH (BEAKER) (test 12.4 % 10.3-14.2 wpil=506) PLATELET COUNT (BEAKER) (test oxdk=600) 173 K/CU MM 150-430 MEAN PLATELET VOLUME (BEAKER) (test ywmu=096) 7.6 fL 6.5-10.5 NUCLEATED RED BLOOD CELLS (BEAKER) (test 0 /100 WBC 0-0 qkve=683) HEPATIC FUNCTION [id number] 16:17:00 Test Item Value Reference Range Comments TOTAL PROTEIN (BEAKER) (test hdpq=642) 6.3 gm/dL 6.0-8.5 ALBUMIN (BEAKER) (test wxxa=8423) 3.5 g/dL 3.5-5.0 BILIRUBIN TOTAL (BEAKER) (test gaac=226) 0.3 mg/dL 0.1-1.2 BILIRUBIN DIRECT (BEAKER) (test lzlz=194) 0.2 mg/dL 0.0-0.4 ALKALINE PHOSPHATASE (BEAKER) (test fybj=094) 106 U/L 30-115 AST (SGOT) (BEAKER) (test avhf=022) 208 U/L 5-40 ALT (SGPT) (BEAKER) (test zrwn=111) 286 U/L 5-50 CBC W/PLT COUNT & AUTO [id number] 06:13:00 Test Item Value Reference Range Comments WHITE BLOOD CELL COUNT (BEAKER) (test ssdk=638) 2.9 K/ L 4.0-10.0 RED BLOOD CELL COUNT (BEAKER) (test argf=241) 3.10 M/ L 4.00-5.00 HEMOGLOBIN (BEAKER) (test nvhw=029) 9.7 GM/DL 12.0-15.0 HEMATOCRIT (BEAKER) (test tcay=969) 28.3 % 36.0-45.0 MEAN CORPUSCULAR VOLUME (BEAKER) (test rhce=083) 91.2 fL 82.0-99.0 MEAN CORPUSCULAR HEMOGLOBIN (BEAKER) (test 31.2 pg 27.0-33.0 egkf=386) MEAN CORPUSCULAR HEMOGLOBIN CONC (BEAKER) (test 34.3 GM/DL 32.0-36.0 hisu=745) RED CELL DISTRIBUTION WIDTH (BEAKER) (test 12.3 % 10.3-14.2 npwo=410) PLATELET COUNT (BEAKER) (test xmju=675) 178 K/CU MM 150-430 MEAN PLATELET VOLUME (BEAKER) (test axfe=540) 7.5 fL 6.5-10.5 NUCLEATED RED BLOOD CELLS (BEAKER) (test 0 /100 WBC 0-0 divj=037) (MANUAL DIFFERENTIAL)2017-10-21 06:13:00 Test Item Value Reference Range Comments NEUTROPHILS - REL (DIFF) (BEAKER) (test rink=3119) 76 % LYMPHOCYTES - REL (DIFF) (BEAKER) (test qpbx=2699) 16 % MONOCYTES - REL (DIFF) (BEAKER) (test ycxe=2512) 5 % BANDS - REL (DIFF) (BEAKER) (test tbhn=0579) 3 % 0-10 NEUTROPHILS - ABS (DIFF) (BEAKER) (test ymvw=3665) 2.20 K/ L 1.80-8.00 LYMPHOCYTES - ABS (DIFF) (BEAKER) (test mahh=4783) 0.46 K/ L 1.48-4.50 MONOCYTES - ABS (DIFF) (BEAKER) (test ddyn=6892) 0.15 K/ L 0.00-1.30 BANDS-ABS (DIFF) (BEAKER) (test ljib=6890) 0.1 K/ L 0.0-0.8 TOTAL COUNTED (BEAKER) (test romf=0824) 100 BANDS + SEGMENTED NEUTROPHILS (BEAKER) (test 2.29 kprd=0058) WBC MORPHOLOGY (BEAKER) (test tluf=470) Normal PLT MORPHOLOGY (BEAKER) (test lqgz=937) Normal RBC MORPHOLOGY (BEAKER) (test ahzh=646) Normal BASIC METABOLIC [id number] 05:25:00 Test Item Value Reference Range Comments SODIUM (BEAKER) (test 139 meq/L 135-148 zdqr=264) POTASSIUM (BEAKER) (test 3.7 meq/L 3.6-5.5 twqy=319) CHLORIDE (BEAKER) (test 104 meq/L 98-106 edva=279) CO2 (BEAKER) (test 27 meq/L 20-29 uhwh=819) BLOOD UREA NITROGEN 12 mg/dL 10-26 (BEAKER) (test wvaw=569) CREATININE (BEAKER) (test 0.80 mg/dL 0.50-1.20 outr=097) GLUCOSE RANDOM (BEAKER) 77 mg/dL 70-110 (test oolb=860) CALCIUM (BEAKER) (test 8.5 mg/dL 8.5-10.5 zqrp=461) EGFR (BEAKER) (test 75 mL/min/1.73 sq m ESTIMATED GFR IS NOT tkjv=9734) ACCURATE CREATININE CLEARANCE IN PREDICTING GLOMERULAR FILTRATION RATE. ESTIMATED GFR IS NOT APPLICABLE FOR DIALYSIS PATIENTS. CT, BRAIN, WITHOUT [id number] 17:12:00Reason for exam:->headacheIs the patient ?->NoWhat is [...] MDReport Verified Date/Time: 10/20/2017 17:12:46 Reading Location: [facility] Reading Room Electronically signed by: HAILEY LUCAS M.D. on 05:12 PMCT, [id number] 09:17:00Reason for exam:->fever, constipation, abd discomfortIs the [...] MDReport Verified Date/Time: 10/20/2017 09:17:32 Reading Location: [facility] B1 [id number] Ortho Consult Reading Room RAD, CHEST, 2 [id number] 08:54:00Reason for exam:->FEVERFINAL REPORT Chest two views [...] MDReport Verified Date/Time: 2017 08:54:43 Reading Location: [facility] Reading Room HEPATIC FUNCTION [id number] 08:27:00 Test Item Value Reference Range Comments TOTAL PROTEIN (BEAKER) (test naba=192) 8.1 gm/dL 6.0-8.5 ALBUMIN (BEAKER) (test fcqp=3706) 4.4 g/dL 3.5-5.0 BILIRUBIN TOTAL (BEAKER) (test zxmg=812) 0.4 mg/dL 0.1-1.2 BILIRUBIN DIRECT (BEAKER) (test qtth=188) 0.2 mg/dL 0.0-0.4 ALKALINE PHOSPHATASE (BEAKER) (test gqfb=681) 128 U/L 30-115 AST (SGOT) (BEAKER) (test mttl=823) 88 U/L 5-40 ALT (SGPT) (BEAKER) (test gcdq=130) 281 U/L 5-50 [id number] 08:24:00 Test Item Value Reference Range Comments LIPASE (BEAKER) (test ndaq=223) 42 U/L 6-51 BASIC METABOLIC [id number] 08:21:00 Test Item Value Reference Range Comments SODIUM (BEAKER) (test 133 meq/L 135-148 ioda=252) POTASSIUM (BEAKER) (test 4.1 meq/L 3.6-5.5 uzkl=549) CHLORIDE (BEAKER) (test 97 meq/L 98-106 mbpj=561) CO2 (BEAKER) (test 26 meq/L 20-29 wfmd=553) BLOOD UREA NITROGEN 17 mg/dL 10-26 (BEAKER) (test wjbn=607) CREATININE (BEAKER) (test 1.00 mg/dL 0.50-1.20 qndt=686) GLUCOSE RANDOM (BEAKER) 99 mg/dL 70-110 (test qxte=130) CALCIUM (BEAKER) (test 9.3 mg/dL 8.5-10.5 mand=299) EGFR (BEAKER) (test 58 mL/min/1.73 sq m ESTIMATED GFR IS NOT fkum=9264) ACCURATE CREATININE CLEARANCE IN PREDICTING GLOMERULAR FILTRATION RATE. ESTIMATED GFR IS NOT APPLICABLE FOR DIALYSIS PATIENTS. LACTIC ACID, VENOUS, WHOLE [id number] 08:15:00 Test Item Value Reference Range Comments LACTATE BLOOD VENOUS (2) (BEAKER) (test 1.1 mmol/L 0.5-2.2 cbwm=2681) Effective 11/28/2015: Units/Reference Range ChangeNew: 0.5-2.2 mmol/L Previous: 5 -18 mg/dLCBC W/PLT COUNT & AUTO [id number] 08:11:00 Test Item Value Reference Range Comments WHITE BLOOD CELL COUNT (BEAKER) (test wnjw=221) 4.7 K/ L 4.0-10.0 RED BLOOD CELL COUNT (BEAKER) (test ncsy=155) 3.71 M/ L 4.00-5.00 HEMOGLOBIN (BEAKER) (test szik=373) 11.5 GM/DL 12.0-15.0 HEMATOCRIT (BEAKER) (test uerq=830) 33.7 % 36.0-45.0 MEAN CORPUSCULAR VOLUME (BEAKER) (test hips=410) 91.0 fL 82.0-99.0 MEAN CORPUSCULAR HEMOGLOBIN (BEAKER) (test 31.1 pg 27.0-33.0 gnkt=051) MEAN CORPUSCULAR HEMOGLOBIN CONC (BEAKER) (test 34.2 GM/DL 32.0-36.0 ifes=160) RED CELL DISTRIBUTION WIDTH (BEAKER) (test 12.3 % 10.3-14.2 etmm=859) PLATELET COUNT (BEAKER) (test ttct=265) 245 K/CU MM 150-430 MEAN PLATELET VOLUME (BEAKER) (test pmfo=742) 7.7 fL 6.5-10.5 NUCLEATED RED BLOOD CELLS (BEAKER) (test 0 /100 WBC 0-0 esfu=747) NEUTROPHILS RELATIVE PERCENT (BEAKER) (test 93 % mdfb=459) LYMPHOCYTES RELATIVE PERCENT (BEAKER) (test 2 % tqeg=011) MONOCYTES RELATIVE PERCENT (BEAKER) (test 5 % tcbh=797) EOSINOPHILS RELATIVE PERCENT (BEAKER) (test 0 % zazg=810) BASOPHILS RELATIVE PERCENT (BEAKER) (test 0 % llgw=391) NEUTROPHILS ABSOLUTE COUNT (BEAKER) (test 4.40 K/ L 1.80-8.00 mfoe=848) LYMPHOCYTES ABSOLUTE COUNT (BEAKER) (test 0.10 K/ L 1.48-4.50 ewan=309) MONOCYTES ABSOLUTE COUNT (BEAKER) (test 0.20 K/ L 0.00-1.30 vuji=983) EOSINOPHILS ABSOLUTE COUNT (BEAKER) (test 0.00 K/ L 0.00-0.50 vkeo=268) BASOPHILS ABSOLUTE COUNT (BEAKER) (test 0.00 K/ L 0.00-0.20 cuvk=496) RAPID INFLUENZA A&B [id number] 07:58:00 Test Item Value Reference Range Comments RAPID INFLUENZA A AG (BEAKER) (test Negative Negative, Inconclusive mhlf=6351) RAPID INFLUENZA B AG (BEAKER) (test Negative Negative, Inconclusive duzg=2460) URINALYSIS W/ [id number] 07:55:00 Test Item Value Reference Range Comments COLOR (BEAKER) (test empw=782) Yellow CLARITY (BEAKER) (test jbvy=167) Clear SPECIFIC GRAVITY UA (BEAKER) (test zzpd=355) 1.015 1.001-1.035 PH UA (BEAKER) (test puqf=637) 6.0 5.0-8.0 PROTEIN UA (BEAKER) (test cxfo=070) Negative Negative GLUCOSE UA (BEAKER) (test rbvm=712) Negative Negative KETONES UA (BEAKER) (test votu=932) Negative Negative BILIRUBIN UA (BEAKER) (test qqap=912) Negative Negative BLOOD UA (BEAKER) (test prar=121) Trace Negative NITRITE UA (BEAKER) (test quak=579) Negative Negative LEUKOCYTE ESTERASE UA (BEAKER) (test sstk=244) Negative Negative UROBILINOGEN UA (BEAKER) (test tcrh=714) 0.2 mg/dL 0.2-1.0 BACTERIA (BEAKER) (test ohoj=195) Few MUCUS (BEAKER) (test zzuk=5806) Few RBC UA-MANUAL (BEAKER) (test folu=0160) 5-10 /HPF WBC UA-MANUAL (BEAKER) (test mael=8141) 5-10 /HPF SQUAMOUS EPITHELIAL MANUAL (BEAKER) (test <5 /HPF icdf=8737) SOURCE(BEAKER) (test egnj=7628)
--- NOTE | 2018-04-07 08:36 | RAD REPORT ---
EXAM DESCRIPTION: RAD - Chest Single View - 04/07/2018 3:45 am CLINICAL HISTORY: DYSPNEA Chest pain. COMPARISON: Chest Single View dated 04/04/2018; Chest Single View dated 04/03/2018; Chest Single View da liam 04/02/2018; Chest Single View dated 04/02/2018 FINDINGS: Portable technique limits examination quality. Bilateral pulmonary opacities are noted with small pleural effusions, probably representing pulmonary edema. The heart is mildly enlarged in size. Right-sided venous catheter its tip in the SVC. Left-si ded port catheter also cyst tip in the SVC. No displaced fractures. IMPRESSION: [id number] CHF versus volume overload pattern.
--- NOTE | 2018-04-07 12:10 | EKG ---
Test Date: 2018-04-07 Test Time: 02:57:42 Tonger: CODY MEASUREMENT RESULTS: Intervals: Rate: 130 TN: 112 QRSD: 68 QT: 388 QTc: 571 Percival: P: 31 TN: 112 QRS: 53 T: 67 INTERPRETIVE STATEMENTS: Sinus tachycardia Nonspecific T wave abnormality Abnormal ECG Compared to ECG 04/02/2018 07:59:24 No significant changes Electronically Signed On 04-07-18 12:08:32 CDT by Derik Bryan
[2018-04-07] MEDS: SEVELAMER CARBONATE 800 MG TABLET PO SCH (16:39)
[2018-04-07] MEDS: ONDANSETRON 4 MG/2 ML VIAL IV PRN (18:53)
--- NOTE | 2018-04-07 19:47 | CON ---
Date of Consultation: 04/07/2018 Consulting Physician: Dr. Mcleod. Reason For Consultation: Elevated BUN and creatinine, end-stage renal disease, over volume. History Of Present Illness: This is an unfortunate, 53-year-old female with significant past medical history of congestive heart failure with ejection fraction up to 20%, breast CA relapse with metasta ses, started on chemo therapy recently, complicated with acute kidney injury, ended up on dialysis, s econdary hyperparathyroid. The patient apparently had a long hospitalization, supposed to be set as outpatient home hemodialysis. The patient relapsed again with over volume. For that reason, reporte d to the hospital. The patient complaining of shortness of breath. The patient denied any nausea, a ny vomiting. No chest pain. Allergies: TO CIPRO AND SULFA. Home Medications: Include albuterol, Bumex, carvedilol 12.5 b.i.d., Renvela, tramadol, Augmentin, gu aifenesin. Past Medical History: Include, 1.End-stage renal disease secondary to acute kidney injury. 2.Breast CA with metastasis. 3.COPD. Past Surgical History: Includes, 1.Hysterectomy. 2.. 3.Exploratory lap, chest pain. 4.Breast lumpectomy. Family History: Positive for diabetes and hypertension. Social History: Ex-smoker. Denied alcohol. Denied drug abuse. Review of Systems: Head and Neck: No red eye. No ear pain. GI: No nausea. No vomiting. : No polyuria. No dysuria. No hematuria. BAG ADJUSTER: No vaginal discharge. Respiratory: Has shortness of breath, has orthopnea. Cardiovascular: Has chest tightness. Endocrine: No polydipsia. Skin: No rash. Physical Examination: Vital Signs: When I saw the patient, blood pressure of 147/89, pulse of 97. Chest: Crackles bilaterally with wheezing. Heart: S1, S2. Systolic murmur. Abdomen: Soft. Nontender. Extremities: No edema. Laboratory Data: WBC 8.7, H and H 9.9/30.3, platelet 82. Sodium 138, potassium 4, bicarb 23, BUN 34 , creatinine 5.3, calcium of 7.5. ABG; pH 7.41, CO2 34, O2 104. Medications: Current medications the patient on in the hospital include, 1.Epogen. 2.Carvedilol 12.5. 3.Bumex 1 mg b.i.d. 4.Renvela. 5.Zofran. 6.Docusate. 7.Multivitamin. Assessment And Plan: 1.End-stage renal disease secondary to acute kidney injury, over volume. I am going to go ahead and dialyze the patient today and tomorrow, to challenge the patient to establish better volume control, and we will follow up the patient. 2.Hypertension, controlled, optimal. I am going to utilize the blood pressure for more ultrafiltrat ion. I am going to go ahead and discontinue Bumex as the patient is anuric and decrease carvedilol t o 6.5, and we will follow up the patient. 3.Breast carcinoma with metastasis. We will follow up with her primary. 4.Congestive heart failure, advance. We will try to establish better volume control with ultrafiltr ation. ZIA Voice ID: [id number] Report ID: [id number]
[2018-04-07] MEDS ORDERED: BUMETANIDE 1 MG TABLET PO SCH (21:00)
[2018-04-07] MEDS ORDERED: CARVEDILOL 12.5 MG TAB PO SCH (21:00)
[2018-04-07] MEDS: ENSURE HIGH PROTEIN 237 ML CAN PO SCH (21:00)
[2018-04-07] MEDS: DOCUSATE NA 100 MG CAP PO SCH (21:00)
[2018-04-08] MEDS: TRAMADOL HCL 50 MG TAB PO SCH ×3 (00:24→20:35)
[2018-04-08] MEDS: FUROSEMIDE 40 MG/4 ML VIAL IV SCH ×3 (00:25→17:49)
[2018-04-08] MEDS: CARVEDILOL 6.25 MG TAB PO SCH ×3 (00:25→20:35)
--- NOTE | 2018-04-08 07:46 | RAD REPORT ---
EXAM DESCRIPTION: Cj Single View04/08/2018 6:08 am CLINICAL HISTORY: Shortness of breath COMPARISON: 04/07/2018 FINDINGS: No significant change has occurred in the bilateral pulmonary opacities, pleural effusions and cardiomegaly. Central venous lines remain place IMPRESSION: No significant change in mild to moderate pulmonary edema
[2018-04-08] MEDS: SEVELAMER CARBONATE 800 MG TABLET PO SCH ×3 (07:48→17:49)
[2018-04-08] MEDS: ENSURE HIGH PROTEIN 237 ML CAN PO SCH ×3 (08:43→20:35)
[2018-04-08] MEDS: MULTIVITAMINS,THERAPEUT 1 TAB PO SCH (08:44)
[2018-04-08] MEDS: DOCUSATE NA 100 MG CAP PO SCH ×2 (08:45→20:35)
--- NOTE | 2018-04-08 14:10 | P.PN ---
Subjective Date of Service: 04/08/18 Chief Complaint: Respiratory distress Patient seen and examined at bedside with RN. Chart reviewed. Patient is doing much better than before. Continues to be on BiPAP at this time. Denies having any shortness of breath chest pain or any other associated symptoms at this time Review of Systems 10-point ROS is otherwise unremarkable Physical Examination - Vital Signs Temperature: 97.2 F Blood Pressure: 114/81 Pulse: 60 Respirations: 18 Pulse Ox (%): 95 - Physical Exam General: Alert, In no apparent distress, Cachectic HEENT: Atraumatic, PERRLA, EOMI Neck: Supple, JVD not distended Respiratory: Normal air movement, Crackles/rales, Rhonchi/gurgles Cardiovascular: Regular rate/rhythm, Normal S1 S2 Gastrointestinal: Normal bowel sounds, No tenderness Musculoskeletal: No tenderness Integumentary: No rashes Neurological: Normal speech, Normal tone, Normal affect Lymphatics: No axilla or inguinal lymphadenopathy - Studies Medications List Reviewed: Yes Assessment And Plan - Current Problems (Diagnosis) (1) Respiratory distress Current Visit: Yes Status: Acute Plan: Acute respiratory distress most likely secondary to volume overload. -patient placed on BiPAP. Will wean as tolerated -IV Lasix and emergent dialysis for volume overload -if no improvement will consult pulmonology. (2) CHF (congestive heart failure) Onset Date: 04/08/18 Current Visit: Yes Status: Acute Plan: Acute on chronic congestive heart failure with EF of 15% -emergent hemodialysis for volume overload. BiPAP also for volume overload. -resume home medications. -will have outpatient followup with her warehouse hand once stable for discharge. -recent echocardiogram done within last 6 months with EF of 15% Qualifiers: Heart failure type: systolic Heart failure chronicity: acute on chronic Qualified Code(s): I50.23 - Acute on chronic systolic (congestive) heart failure (3) ESRD (end stage renal disease) Onset Date: 04/05/18 Current Visit: No Status: Chronic Plan: End-stage renal disease with volume overload now -the patient has been arranged to have home dialysis however has not been able to start her treatment due to her getting short of breath and being here in the hospital after that. -patient being dialyzed here in the hospital daily for right now. -nephrology consulted appreciated recommendations at this time (4) Breast cancer Onset Date: 04/05/18 Current Visit: No Status: Chronic Qualifiers: Breast location: unspecified site of breast Estrogen receptor status: positive Patient sex: female Laterality: left Qualified Code(s): C50.912 - Malignant neoplasm of unspecified site of left female breast; Z17.0 - Estrogen receptor positive status [ER+] - Plan Currently awaiting clinical improvement. Will try to wean off the BiPAP. Will continue with hemodialysis here in the hospital. Will follow the patient's nephrology in terms of increasing her frequency for hemodialysis outpatient to get adequate control of her symptoms. Discharge Plan: Home Plan to discharge in: 72 Hours - Code Status/Comfort Care Code Status Assessed: Yes Critical Care: No
[2018-04-08] MEDS: EPOETIN ALFA 10,000 UNIT/ML VIAL IV SCH (15:45)
--- NOTE | 2018-04-09 04:24 | PN ---
Subjective: The patient was admitted with overload, shortness of breath, received dialysis yesterday , felt better, but has still shortness of breath. Plan for dialysis today. Physical Examination: Vital Signs: Blood pressure 148/66, pulse of 100. The patient had ultrafiltration yesterday of 1200 . Chest: Crackles bilateral. Heart: S1, S2. Regular. Systolic murmur. Abdomen: Soft, nontender. Extremities: No edema. Laboratory Data: H and H 9.9/30.3. Sodium 138, potassium 4, bicarb 23, BUN 34, creatinine 5.3, calc ium 7.5. Current Medications: Epogen, carvedilol 6.25, Lasix 80 b.i.d., Renvela, tramadol. Assessment And Plan: 1.End-stage renal disease. I am going to continue the patient on daily dialysis. We will arrange t he patient for dialysis tomorrow, and we will follow up the patient. 2.Hypertension. We will utilize blood pressure for more ultrafiltration. 3.Anemia of chronic kidney disease. Continue Epogen. 4.Congestive heart failure, advance. We will try to establish better volume control with ultrafiltr ation. 5.Acute kidney injury, possible secondary to chemo secondary to HUS. Currently over volume. We poppy l continue diuresis. We will request the record. We will try to do dialysis daily to establish better volume control. ROBYN/BIANCA Voice ID: [id number] Report ID: [id number]
[2018-04-09] MEDS: TRAMADOL HCL 50 MG TAB PO SCH ×2 (09:00→20:53)
[2018-04-09] MEDS: DOCUSATE NA 100 MG CAP PO SCH ×2 (09:00→20:54)
[2018-04-09] MEDS: FUROSEMIDE 40 MG/4 ML VIAL IV SCH ×2 (09:00→17:55)
[2018-04-09] MEDS: MULTIVITAMINS,THERAPEUT 1 TAB PO SCH (09:55)
[2018-04-09] MEDS: CARVEDILOL 6.25 MG TAB PO SCH (09:55)
[2018-04-09] MEDS: SEVELAMER CARBONATE 800 MG TABLET PO SCH ×3 (09:56→17:55)
[2018-04-09] MEDS: ENSURE HIGH PROTEIN 237 ML CAN PO SCH ×3 (09:57→20:54)
[2018-04-09 11:19] LABS: Albumin 2.7 g/dL (3.4-5.0); Phosphorus 2.1 mg/dL (2.5-4.9); Potassium 3.5 mmol/L (3.5-5.1)
--- NOTE | 2018-04-09 13:56 | P.PN ---
Subjective Date of Service: 04/09/18 Chief Complaint: Respiratory distress Patient seen and examined at bedside with RN. Chart reviewed. Patient is doing much better than before. Continues to be on BiPAP with breaks for meals at this time. Denies having any shortness of breath chest pain or any other associated symptoms at this time Review of Systems 10-point ROS is otherwise unremarkable Physical Examination - Vital Signs Temperature: 97.1 F Blood Pressure: 128/83 Pulse: 98 Respirations: 18 Pulse Ox (%): 100 - Physical Exam General: Alert, Oriented x3, Mild distress HEENT: Atraumatic, PERRLA, EOMI Neck: Supple, JVD not distended Respiratory: Normal air movement, Crackles/rales Cardiovascular: Regular rate/rhythm, Normal S1 S2 Gastrointestinal: Normal bowel sounds, No tenderness Musculoskeletal: No tenderness Integumentary: No rashes Neurological: Normal speech, Normal tone, Normal affect Lymphatics: No axilla or inguinal lymphadenopathy - Studies Medications List Reviewed: Yes Assessment And Plan - Current Problems (Diagnosis) (1) Respiratory distress Current Visit: Yes Status: Acute Plan: Acute respiratory distress most likely secondary to volume overload. -patient placed on BiPAP. Will wean as tolerated -IV Lasix and emergent dialysis for volume overload -if no improvement will consult pulmonology. (2) CHF (congestive heart failure) Onset Date: 04/08/18 Current Visit: Yes Status: Acute Plan: Acute on chronic congestive heart failure with EF of 15% -emergent hemodialysis for volume overload. BiPAP also for volume overload. -resume home medications. -will have outpatient followup with her mds coordinator once stable for discharge. -recent echocardiogram done within last 6 months with EF of 15% Qualifiers: Heart failure type: systolic Heart failure chronicity: acute on chronic Qualified Code(s): I50.23 - Acute on chronic systolic (congestive) heart failure (3) ESRD (end stage renal disease) Onset Date: 04/05/18 Current Visit: No Status: Chronic Plan: End-stage renal disease with volume overload now -the patient has been arranged to have home dialysis however has not been able to start her treatment due to her getting short of breath and being here in the hospital after that. -patient being dialyzed here in the hospital daily for right now. -nephrology consulted appreciated recommendations at this time -May consider for HD at [facility] after DW with nephrology (4) Breast cancer Onset Date: 04/05/18 Current Visit: No Status: Chronic Qualifiers: Breast location: unspecified site of breast Estrogen receptor status: positive Patient sex: female Laterality: left Qualified Code(s): C50.912 - Malignant neoplasm of unspecified site of left female breast; Z17.0 - Estrogen receptor positive status [ER+] - Plan Currently awaiting clinical improvement. Will try to wean off the BiPAP. Will continue with hemodialysis here in the hospital. Will follow the patient's nephrology in terms of changing her to HD vs PD. Discharge Plan: Other Plan to discharge in: 48 Hours - Code Status/Comfort Care Code Status Assessed: Yes Critical Care: No
[2018-04-09] MEDS: EPOETIN ALFA 10,000 UNIT/ML VIAL IV SCH (14:52)
[2018-04-09] MEDS ORDERED: NA CHLORIDE 0.9% 1,000 ML IV PRN (14:53)
[2018-04-09] MEDS ORDERED: MANNITOL 25% 12.5 GM/50 ML VIAL IV PRN (14:53)
[2018-04-09] MEDS ORDERED: ALBUMIN HUMAN 25% 50 ML IV SCH (15:00)
[2018-04-09] MEDS: CARVEDILOL 3.125 MG TAB PO SCH (20:54)
--- NOTE | 2018-04-10 00:54 | PN ---
Date of Progress Note: 04/09/2018 Subjective: The patient is doing better. Still has shortness of breath. Being dialyzed daily for t he last 3 days. Physical Examination: Vital Signs: Blood pressure 113/69, pulse of 92, afebrile. Chest: Crackles bilateral base. More prominent on the right. Heart: S1, S2. Systolic murmur. Abdomen: Soft, nontender. Extremities: No edema. Laboratory Data: H and H 9.9/30.3. Sodium 139, potassium 3.5, bicarb 29, BUN 17, creatinine 2.7, ca lcium 8.1, and phosphorus 2.1. Assessment And Plan: 1.Acute kidney injury secondary to cardiorenal, possible hemolytic uremic syndrome secondary to chem o. Oliguric over volume. I am going to continue dialysis tomorrow sequential of 2 hours to establis h better volume control. The patient wants to move local dialysis, wants to switch her dialysis unit to the local, but she wants to stay on home program. We will refer her to local home program to [facility], and we will follow up. 2.Hypertension. Given the low blood pressure, we need to utilize the blood pressure for more ultraf iltration. We will decrease her carvedilol to 3.125. I am going to discontinue the Lasix. 3.Congestive heart failure, ejection fraction of 20%. We will try to establish better volume contro l. 4.Hemolytic uremic syndrome. Will follow up with her primary electrical unit rebuilder. ZIA Voice ID: [id number] Report ID: [id number]
[2018-04-10 05:56] LABS: Albumin 2.7 g/dL (3.4-5.0); Phosphorus 1.5 mg/dL (2.5-4.9); Potassium 3.1 mmol/L (3.5-5.1)
[2018-04-10] MEDS: SEVELAMER CARBONATE 800 MG TABLET PO SCH ×3 (08:00→17:00)
[2018-04-10] MEDS: DOCUSATE NA 100 MG CAP PO SCH ×2 (09:00→21:00)
[2018-04-10] MEDS: ENSURE HIGH PROTEIN 237 ML CAN PO SCH ×3 (09:00→21:00)
[2018-04-10] MEDS: CARVEDILOL 3.125 MG TAB PO SCH ×2 (09:00→21:00)
[2018-04-10] MEDS: EPOETIN ALFA 10,000 UNIT/ML VIAL IV SCH (10:34)
[2018-04-10] MEDS: TRAMADOL HCL 50 MG TAB PO SCH ×2 (11:44→21:00)
[2018-04-10] MEDS: ONDANSETRON 4 MG/2 ML VIAL IV PRN (11:44)
[2018-04-10] MEDS: MULTIVITAMINS,THERAPEUT 1 TAB PO SCH (11:45)
--- NOTE | 2018-04-10 13:37 | RAD REPORT ---
EXAM DESCRIPTION: Cj Single View04/10/2018 1:20 pm CLINICAL HISTORY: Chest pain COMPARISON: 04/08/2018 FINDINGS: Bilateral pulmonary opacities have partially resolved. Small pleural effusions are presen t left greater than right. Central venous lines remain in place. The heart is normal size
--- NOTE | 2018-04-10 17:41 | PN ---
Subjective: Currently, patient lying in bed. She looks comfortable. She has no chest pain. No abd ominal pain. She was off BiPAP shortly, but Nephrology would like for her to watch over the through Thursday before discharge home, make she does not need any further active dialysis. Objective: Vital Signs: Blood pressure 139/85, respiratory rate 18, pulse 87, temperature 97.8. General: The patient is alert and oriented x3. Does not look in any distress. She is very cachecti c. HEENT: Atraumatic, normocephalic. PERRLA. Oral mucosa is moist. Neck: Supple. No JVD. No bruits. Chest: Clear to auscultation. Good air entry. Heart: Regular rate and rhythm. S1, S2 normal. No gallop or murmur. Abdomen: Soft, nontender. No masses. No hepatosplenomegaly. Positive bowel sounds. Extremities: No clubbing, cyanosis, or edema. No calf tenderness. Neurologic: Grossly intact. Assessment And Plan: 1.Respiratory failure, resolved as secondary to overload. The patient off BiPAP at this point. She received dialysis, and she is being closely monitored by Nephrology. We will not consult Pulmonary. 2.Congestive heart failure exacerbation. The patient had history of chronic with EF of 50%. She im proved significantly with hemodialysis. She is off BiPAP at this point. She will need to follow up with Cardiology as outpatient. She had echocardiogram 6 months ago. 3.End-stage renal disease with issues about setting up dialysis. Dr. Wei would like her to sta y over weekend and observe her to make sure that she does not need active dialysis before she starts home dialysis through [facility]. 4.Breast cancer. She needs to follow up with her oncologist as outpatient. 5.Constipation, on Colace. 6.Anemia of chronic kidney disease. She is on Procrit. 7.Symptomatic treatment. 8.for pain with tramadol and morphine. Discontinue that hopefully on Thursday if the patient is hemod ynamically stable via Nephrology recommendation. KHADAR/BIANCA Voice ID: [id number] Report ID: [id number]
--- NOTE | 2018-04-10 19:41 | PN ---
Date of Progress Note: 04/10/2018 Subjective: The patient is status post dialysis today. We managed to remove 1700. Objective: Vital Signs: Blood pressure 139/85, pulse of 87. Chest: Faint crackles, more prominent on the right base. Heart: S1, S2. Systolic murmur. Abdomen: Soft, nontender. Extremities: No edema. Laboratory Data: WBC 8.7, H and H 9.9/30.3. Sodium 138, potassium 3.1, bicarb 28, BUN 50, creatinin e 2.6, calcium 7.9. Current Medications: The patient on include, 1.Carvedilol 3.125. 2.Morphine. 3.Renvela. 4.Tramadol. 5.B complex. Diagnostic Data: Chest x-ray, significant improvement in the congestion. Assessment And Plan: 1.Acute kidney injury secondary to possible hemolytic uremic syndrome/cardiorenal. The patient rece ived 4 sessions of dialysis. We will give dialysis tomorrow and we will evaluate on Thursday. We will do dialysis, if the patient sustains, the patient will need 4 sessions weekly of dialysis to maintai n her fluid status and avoid recurrent admission. The patient is going to be continue on home dialys is. 2.Hypertension, controlled, had occasional low blood pressure on dialysis. Keep holding the Lasix a nd continue current dose of carvedilol. 3.Congestive heart failure, advanced. Ejection fraction around 20%. We will try to establish bob r volume control with ultrafiltration. 4.Cancer, follow up with Oncology. ZIA Voice ID: [id number] Report ID: [id number]
[2018-04-11 05:55] LABS: Albumin 2.7 g/dL (3.4-5.0); Phosphorus 1.6 mg/dL (2.5-4.9); Potassium 3.2 mmol/L (3.5-5.1)
[2018-04-11] MEDS: TRAMADOL HCL 50 MG TAB PO SCH ×2 (09:00→20:05)
[2018-04-11] MEDS: DOCUSATE NA 100 MG CAP PO SCH ×2 (09:00→20:05)
[2018-04-11] MEDS: ENSURE HIGH PROTEIN 237 ML CAN PO SCH ×3 (09:00→20:06)
[2018-04-11] MEDS: MULTIVITAMINS,THERAPEUT 1 TAB PO SCH (09:12)
[2018-04-11] MEDS: SEVELAMER CARBONATE 800 MG TABLET PO SCH ×3 (09:12→18:31)
[2018-04-11] MEDS: CARVEDILOL 3.125 MG TAB PO SCH (09:13)
[2018-04-11] MEDS ORDERED: HYDRALAZINE HCL 20 MG/ML VIAL IV PRN (11:42)
[2018-04-11] MEDS: CARVEDILOL 6.25 MG TAB PO SCH ×2 (11:58→20:04)
[2018-04-11] MEDS: NYSTATIN 500,000 UNIT/5 ML UDC PO SCH ×4 (13:55→23:21)
--- NOTE | 2018-04-11 17:21 | PN ---
Subjective: Currently, the patient lying in bed. She looks comfortable. She has no chest pain, no abdominal pain, no shortness of breath. She is worried about thrush coming back in her mouth. No fe vers or chills overnight. Physical Examination: Vital Signs: Blood pressure 174/93, respiratory rate 18, pulse 97, temperature 97.9. General: The patient is alert and oriented x3. Does not look in any distress. HEENT: Atraumatic, normocephalic. PERRLA. Oral mucosa with white patches. Chest: Clear to auscultation. Good air entry. Heart: Regular rate and rhythm. S1, S2 normal. No gallop or murmur. Abdomen: Soft, nontender. No masses. No hepatosplenomegaly. Positive bowel sounds. Extremities: No clubbing, cyanosis, or edema. No calf tenderness. Neurologic: Grossly intact. Cranial nerve exam 2 through 12 intact. Normal sensation. Normal refl exes. Normal muscle tone. Laboratory Data: Today showed CMP with potassium 3.2, BUN of 30, creatinine of 4.3, calcium 7.9, leslee sphorus 1.6. Assessment And Plan: 1.Respiratory failure secondary to volume overload, resolved. The patient off BiPAP at this point. 2.Congestive heart failure exacerbation secondary to volume overload with low ejection fraction arou nd 15%. The patient improved significantly after hemodialysis. Continue followup with Cardiology as outpatient. Last echocardiogram was 6 months ago. 3.End-stage renal disease. The patient on hemodialysis. She is going to get hemodialysis today and she will be assessed by Nephrology, Thursday. Apparently, she will need hemodialysis a wee k to avoid re-admission. Nephrology is arranging for that dialysis. 4.History of breast cancer. Follow up with Oncology. She is apparently also benign. 5.Constipation, better on Colace. 6.Anemia of chronic disease. There is no CBC today. I will order daily one. Continue Procrit. 7.Hypertension, not well controlled. I will add hydralazine. She is currently on Coreg 6.25 mg twi ce a day. I will add hydralazine 10 every 6 hours as needed. 8.Deep vein thrombosis prophylaxis. We will add heparin twice a today . MT/MODL Voice ID: [id number] Report ID: [id number]
[2018-04-11] MEDS: HEPARIN 5000 UNIT/ML 1 ML VIAL SQ SCH (20:06)
--- NOTE | 2018-04-11 20:57 | PN ---
Date of Progress Note: 04/11/2018 NEPHROLOGY FOLLOWUP Subjective: The patient was dialyzed yesterday. We managed to remove 1700. Blood pressure being elevated today. Objective: Vital Signs: Blood pressure 176/88, pulse of 88. Chest: Faint crackles on bilateral bases. Heart: S1, S2. Systolic murmur. Abdomen: Soft, nontender. Extremities: No edema. Laboratory Data: Sodium 136, potassium 3.2, bicarb 26, BUN, Current H and H 9.9 /30.3. Current Medications: Tylenol, carvedilol, Epogen p.r.n. hydralazine, Zofran, and Renvela with B complex. Assessment And Plan: 1. Acute kidney injury, anuric, with severe congestive heart failure. The patient could not be sustained on a 3-session of dialysis weekly. This time, she is on 4-session weekly. We will re-evaluate tomorrow if the patient sustains well. The patient is going to be dialyzed Thursday, Thursday, Thursday with extra treatment weekly on Thursday, and we will follow up. 2. Hypertension, uncontrolled. Today, we will utilize the blood pressure for more ultrafiltration. I am going to go ahead and increase her carvedilol to 6.25, to be given on nondialysis day, to hold it on the dialysis day, and we will follow up. 3. Secondary SHPT Continue binder. 4. Anemia of chronic kidney disease. Continue Epogen. 5. Congestive heart failure advanced with ejection fraction 15 to 22. Continue to establish better volume control with ultrafiltration. 6. The patient being switched to [facility], we are waiting for set up . The patient may be discharged to home dialysis. ZIA Voice ID: [id number] Report ID: [id number]
[2018-04-11] MEDS ORDERED: FUROSEMIDE 40 MG/4 ML VIAL IV ONE (23:20)
[2018-04-12] MEDS: NYSTATIN 500,000 UNIT/5 ML UDC PO SCH ×6 (04:00→23:59)
[2018-04-12 07:07] LABS: Albumin 2.6 g/dL (3.4-5.0); Phosphorus 1.9 mg/dL (2.5-4.9); Potassium 3.7 mmol/L (3.5-5.1)
[2018-04-12 07:14] LABS: Absolute Lymphocytes (CBC) 0.5 K/uL (0.7-4.9); Absolute Monocytes 0.2 K/uL (0.1-1.3); Absolute Neutrophil 1.9 K/uL (1.8-8.0); Basophils % 0.7 % (0-1.3); Eosinophils % 1.9 % (0-4.4); Hematocrit 22.9 % (36.0-45.0); Lymphocytes % 18.8 % (15.3-44.8); MCH 33.1 pg (27.0-35.0); MCV 96.2 fL (80-100); MPV 8.7 fL (7.6-11.3); Monocytes % 8.1 % (3.3-12.3); RBC Red Blood Cell Count 2.38 M/uL (3.86-4.86)
[2018-04-12] MEDS: SEVELAMER CARBONATE 800 MG TABLET PO SCH ×4 (07:56→16:00)
[2018-04-12] MEDS: DOCUSATE NA 100 MG CAP PO SCH ×2 (07:56→20:12)
[2018-04-12 07:57] LABS: Platelet Estimate DECR
[2018-04-12] MEDS: MULTIVITAMINS,THERAPEUT 1 TAB PO SCH (07:57)
[2018-04-12] MEDS: HEPARIN 5000 UNIT/ML 1 ML VIAL SQ SCH ×2 (07:57→20:12)
[2018-04-12] MEDS: ENSURE HIGH PROTEIN 237 ML CAN PO SCH ×3 (07:57→20:12)
[2018-04-12 07:58] LABS: Anisocytosis 1+; Blood Morphology Comment NOTED (NOT SEEN); Macrocytosis 1+; Ovalocytes SLIGHT; Platelets, Giant FEW; Poikilocytosis 1+; Target Cells FEW
[2018-04-12] MEDS: TRAMADOL HCL 50 MG TAB PO SCH ×2 (07:58→20:13)
--- NOTE | 2018-04-12 13:01 | P.PN ---
Subjective Date of Service: 04/12/18 Chief Complaint: Respiratory distress Patient seen and examined at bedside with RN. Chart reviewed. Patient is doing much better than before. Denies having any shortness of breath chest pain or any other associated symptoms at this time. Currently in Dialysis. Review of Systems 10-point ROS is otherwise unremarkable Physical Examination - Vital Signs Temperature: 98.0 F Blood Pressure: 139/92 Pulse: 99 Respirations: 20 Pulse Ox (%): 100 - Physical Exam General: Alert, In no apparent distress HEENT: Atraumatic, PERRLA, EOMI Neck: Supple, JVD not distended Respiratory: Clear to auscultation bilaterally, Normal air movement Cardiovascular: Regular rate/rhythm, Normal S1 S2 Gastrointestinal: Normal bowel sounds, No tenderness Musculoskeletal: No tenderness Integumentary: No rashes Neurological: Normal speech, Normal tone, Normal affect Lymphatics: No axilla or inguinal lymphadenopathy - Studies Medications List Reviewed: Yes Assessment And Plan - Current Problems (Diagnosis) (1) Respiratory distress Current Visit: Yes Status: Acute Plan: Acute respiratory distress most likely secondary to volume overload. Resolved now -Weaned to NC now. Will wean off as tolerated (2) CHF (congestive heart failure) Onset Date: 04/08/18 Current Visit: Yes Status: Acute Plan: Acute on chronic congestive heart failure with EF of 15% -Hemodialysis for volume overload. 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 -recent echocardiogram done within last 6 months with EF of 15% Qualifiers: Heart failure type: systolic Heart failure chronicity: acute on chronic Qualified Code(s): I50.23 - Acute on chronic systolic (congestive) heart failure (3) ESRD (end stage renal disease) Onset Date: 04/05/18 Current Visit: No Status: Chronic Plan: End-stage renal disease with volume overload now -the patient has been arranged to have home dialysis. -patient being dialyzed here in the hospital daily for right now. -nephrology consulted appreciated recommendations at this time -paper work for [facility] started. Pending Approval (4) Breast cancer Onset Date: 04/05/18 Current Visit: No Status: Chronic Qualifiers: Breast location: unspecified site of breast Estrogen receptor status: positive Patient sex: female Laterality: left Qualified Code(s): C50.912 - Malignant neoplasm of unspecified site of left female breast; Z17.0 - Estrogen receptor positive status [ER+] - Plan Currently awaiting clinical improvement. Will continue with hemodialysis here in the hospital. pending approval from [facility] Discharge Plan: Home Plan to discharge in: 24 Hours - Code Status/Comfort Care Code Status Assessed: Yes
--- NOTE | 2018-04-13 03:38 | PN ---
Date of Progress Note: 04/12/2018 Chief Complaint: End-stage renal disease. History Of Present Illness: The patient has severe congestive heart failure with systolic dysfunctio n. She is undergoing treatment today for metabolic clearance and to obtain ultrafiltration. She was complaining of shortness of breath. Ultrafiltration was ordered with goal of 1 to 1.5 kilos as tole rated. Review of Systems: Denies PND, orthopnea. Physical Examination: Lungs: Crackles bilaterally present. Heart: S1, S2. Systolic murmur 2/6 lower left sternal border. Abdomen: Soft, benign. Extremities: No edema. Laboratory Data: Sodium is 136, potassium 3.2, bicarbonate 26, and hemoglobin 9.9. Impression And Plan: 1.Acute kidney injury, severe. The patient is dialysis dependent likely the patient has end-stage r enal disease due to acute kidney injury. 2.Hypertension. Blood pressure controlled. 3.Anemia. Monitor hemoglobin level, adjust AIDEE. 4.History of hypophosphatemia. Monitor electrolytes and adjust replacement as needed. 5.Anemia. The patient was found to have hemoglobin of 7.9 and monitor hemoglobin level and plan blo od transfusion accordingly. Blood work today reveals sodium 133, potassium 3.7, chloride 99, CO2 25, BUN 39, creatinine 5.8, phos phorus is 1.9, and calcium 7.9. The patient is off binder and increase p.o. intake. Monitor prealbumin level and replace phosphorus as n eeded. EB/MODL Voice ID: [id number] Report ID: [id number]
[2018-04-13] MEDS: NYSTATIN 500,000 UNIT/5 ML UDC PO SCH ×7 (04:00→23:30)
[2018-04-13 06:31] LABS: Albumin 2.7 g/dL (3.4-5.0); Phosphorus 1.4 mg/dL (2.5-4.9); Potassium 4.2 mmol/L (3.5-5.1)
[2018-04-13] MEDS: MULTIVITAMINS,THERAPEUT 1 TAB PO SCH (08:17)
[2018-04-13] MEDS: SEVELAMER CARBONATE 800 MG TABLET PO SCH ×3 (08:17→16:52)
[2018-04-13] MEDS: CARVEDILOL 6.25 MG TAB PO SCH ×2 (08:18→20:36)
[2018-04-13] MEDS: DOCUSATE NA 100 MG CAP PO SCH ×2 (08:18→20:32)
[2018-04-13] MEDS: ENSURE HIGH PROTEIN 237 ML CAN PO SCH ×3 (08:18→20:32)
[2018-04-13] MEDS: HEPARIN 5000 UNIT/ML 1 ML VIAL SQ SCH ×2 (08:18→20:32)
[2018-04-13] MEDS: TRAMADOL HCL 50 MG TAB PO SCH ×2 (08:19→20:33)
--- NOTE | 2018-04-13 14:11 | P.PN ---
Subjective Date of Service: 04/13/18 Chief Complaint: Respiratory distress Patient seen and examined at bedside with RN. Chart reviewed. Patient is doing much better than before. Denies having any shortness of breath chest pain or any other associated symptoms at this time. Currently awaiting Dialysis. Review of Systems 10-point ROS is otherwise unremarkable Physical Examination - Vital Signs Temperature: 98.1 F Blood Pressure: 169/103 Pulse: 100 Respirations: 18 Pulse Ox (%): 96 - Physical Exam General: Alert, In no apparent distress, Oriented x3 HEENT: Atraumatic, PERRLA, EOMI Neck: Supple, JVD not distended Respiratory: Clear to auscultation bilaterally, Normal air movement Cardiovascular: Regular rate/rhythm, Normal S1 S2 Gastrointestinal: Normal bowel sounds, No tenderness Musculoskeletal: No tenderness Integumentary: No rashes Neurological: Normal speech, Normal tone, Normal affect Lymphatics: No axilla or inguinal lymphadenopathy - Studies Medications List Reviewed: Yes Assessment And Plan - Current Problems (Diagnosis) (1) Respiratory distress Current Visit: Yes Status: Acute Plan: Acute respiratory distress most likely secondary to volume overload. Resolved now -Weaned to NC now. Will wean off as tolerated (2) CHF (congestive heart failure) Onset Date: 04/08/18 Current Visit: Yes Status: Acute Plan: Acute on chronic congestive heart failure with EF of 15% -Hemodialysis for volume overload. PO BB for now -will have outpatient followup with her production checker once stable for discharge. -recent echocardiogram done within last 6 months with EF of 15% Qualifiers: Heart failure type: systolic Heart failure chronicity: acute on chronic Qualified Code(s): I50.23 - Acute on chronic systolic (congestive) heart failure (3) ESRD (end stage renal disease) Onset Date: 04/05/18 Current Visit: No Status: Chronic Plan: End-stage renal disease with volume overload now -the patient has been arranged to have home dialysis. -patient being dialyzed here in the hospital daily for right now. -nephrology consulted appreciated recommendations at this time -paper work for [facility] started. Pending Approval (4) Breast cancer Onset Date: 04/05/18 Current Visit: No Status: Chronic Qualifiers: Breast location: unspecified site of breast Estrogen receptor status: positive Patient sex: female Laterality: left Qualified Code(s): C50.912 - Malignant neoplasm of unspecified site of left female breast; Z17.0 - Estrogen receptor positive status [ER+] - Plan Currently awaiting clinical improvement. Will continue with hemodialysis here in the hospital. pending approval from [facility] Discharge Plan: Home Plan to discharge in: 48 Hours - Code Status/Comfort Care Code Status Assessed: Yes Critical Care: No
[2018-04-13] MEDS: EPOETIN ALFA 10,000 UNIT/ML VIAL IV SCH (16:19)
[2018-04-13] MEDS ORDERED: MORPHINE 2 MG/ML SYR IV ONE (23:19)
--- NOTE | 2018-04-14 03:36 | PN ---
Date of Progress Note: 04/13/2018 NEPHROLOGY FOLLOWUP Subjective: Patient seen on dialysis. Physical Examination: Vital Signs: Blood pressure 137/88, pulse of 99, afebrile. Chest: Faint crackles on bilateral base. Heart: S1, S2. Systolic murmur. Abdomen: Soft, nontender. Extremities: No edema. Laboratory Data: WBC 2.7, H and H 7.9/22.9, platelet of 53. Sodium 136, potassium 4.2, bicarb 25, B UN 52, creatinine 4.9, calcium 8.1, phos 1.4. Current Medications: The patient on is include; 1.Nystatin. 2.Epogen. 3.Carvedilol 6.25. 4.Tylenol. 5.Ensure. 6.Renvela. 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 Oliguric over volume. I am going to continue dialysis. The patient is going to be scheduled for dialysis tomorrow. The karina trevino has been accepted at home dialysis program. We will be able to be discharged after dialysis scotty orrow. 2.Anemia secondary to chronic kidney disease, cancer. I am going to continue Epogen. We will arran for 2 units of blood transfusion tomorrow given the history of TMA. I am going to go ahead and se nd for LDH. We will send for anemia workup. We will continue Epogen. 3.Hypertension, controlled, optimal. We will utilize the blood pressure for more ultrafiltration. 4.Congestive heart failure. We will try to establish better volume control with ultrafiltration. The patient is going to need to be dialyzed 4 times a week. ZIA Voice ID: [id number] Report ID: [id number]
[2018-04-14] MEDS: NYSTATIN 500,000 UNIT/5 ML UDC PO SCH ×4 (04:00→16:00)
[2018-04-14 05:00] VITALS: BMI 16.0
[2018-04-14 06:33] LABS: RBC Red Blood Cell Count 2.54 M/uL (3.86-4.86)
[2018-04-14 07:20] LABS: Ferritin 1205.4 ng/mL (8-388); Folic Acid, (Folate) > 20.0 ng/mL (3.1-17.5); Transferrin 164 mg/dL (200-360)
[2018-04-14] MEDS: ENSURE HIGH PROTEIN 237 ML CAN PO SCH ×2 (08:42→14:00)
[2018-04-14] MEDS: HEPARIN 5000 UNIT/ML 1 ML VIAL SQ SCH (08:42)
[2018-04-14] MEDS: DOCUSATE NA 100 MG CAP PO SCH (08:42)
[2018-04-14] MEDS: MULTIVITAMINS,THERAPEUT 1 TAB PO SCH (08:42)
[2018-04-14] MEDS ORDERED: NA CHLORIDE 0.9% 500 ML ONE (12:28)
--- NOTE | 2018-04-14 16:12 | P.DS ---
Admission Date: 04/07/18 Discharge Date: 04/14/18 Disposition: ROUTINE DISCHARGE Discharge Condition: GOOD Reason for Admission: Respiratory distress Consultations: Nephrology Cardiology - Problems (1) Respiratory distress Current Visit: Yes Status: Acute (2) CHF (congestive heart failure) Onset Date: 04/08/18 Current Visit: Yes Status: Acute Qualifiers: Heart failure type: systolic Heart failure chronicity: acute on chronic Qualified Code(s): I50.23 - Acute on chronic systolic (congestive) heart failure (3) ESRD (end stage renal disease) Onset Date: 04/05/18 Current Visit: No Status: Chronic (4) Breast cancer Onset Date: 04/05/18 Current Visit: No Status: Chronic Qualifiers: Breast location: unspecified site of breast Estrogen receptor status: positive Patient sex: female Laterality: left Qualified Code(s): C50.912 - Malignant neoplasm of unspecified site of left female breast; Z17.0 - Estrogen receptor positive status [ER+] Brief History of Present Illness: Patient is a 53-year-old female who presents to the emergency room in respiratory distress. Patient was just discharged yesterday for respiratory failure secondary CHF acute systolic dysfunction. Patient was found have any ejection fraction of 20%. Patient has end-stage renal disease and had to be hemodialyzed. Patient has numerous comorbidities and she does not do of really great job taking care of herself. She was scheduled to get home dialysis from a company in [place]. However, the appointment was for today. She has a back in the hospital in severe respiratory distress with volume overload. She will be admitted and diuresed aggressively. Will Consult nephrology, Dr. Peres, for further input and once patient is dialyzed clinically should be better. Patient 's ejection fraction on echocardiogram is less than 20%. Long-term prognosis is poor.. Hospital Course: Overall during the hospital stay patient remained stable Patient was initially admitted to the hospital for shortness of breath most likely secondary to volume overload secondary to her CHF and end-stage renal disease. Patient received emergent hemodialysis here in the hospital along with IV Lasix. Patient was recently discharged from the hospital for similar complaints and was started on hemodialysis at the house however the frequency has been Thursday. Patient had nephrology consulted here in the hospital who recommended the patient receives daily dialysis while here in the hospital. Patient did receive daily dialysis here in the hospital and had marked improvement in her symptoms. Patient wished to get somebody local here in [place] to monitor her glasses and this does [facility] to continue with. Patient's paperwork was sent [facility] to [facility] the patient was started with home dialysis with [facility]. Pain once patient had marked improvement in her symptoms was able to tolerate her diet and ambulate around without shortness of breath. Patient was discharged home under stable condition. Vital Signs/Physical Exam: Temp Pulse Resp BP Pulse Ox 99.2 F 98 H 16 155/91 H 100 04/14/18 12:00 04/14/18 12:00 04/14/18 12:00 04/14/18 12:00 04/14/18 12:00 General: Alert, In no apparent distress HEENT: Atraumatic, PERRLA, EOMI Neck: Supple, JVD not distended Respiratory: Clear to auscultation bilaterally, Normal air movement Cardiovascular: Regular rate/rhythm, Normal S1 S2 Gastrointestinal: Normal bowel sounds, No tenderness Musculoskeletal: No tenderness Integumentary: No rashes Neurological: Normal speech, Normal tone, Normal affect Lymphatics: No axilla or inguinal lymphadenopathy Laboratory Data at Discharge: WBC 2.7 K/uL (4.3-10.9) L D 04/12/18 06:20 Hgb 7.9 g/dL (12.0-15.0) L* 04/12/18 06:20 Hct 22.9 % (36.0-45.0) L D 04/12/18 06:20 Plt Count 53 K/uL (152-406) L D 04/12/18 06:20 PT 12.8 SECONDS (9.5-12.5) H 04/07/18 03:10 INR 1.08 04/07/18 03:10 APTT 33.4 SECONDS (24.3-36.9) 04/07/18 03:10 Sodium 136 mmol/L (136-145) 04/13/18 05:20 Potassium 4.2 mmol/L (3.5-5.1) 04/13/18 05:20 BUN 32 mg/dL (7-18) H 04/13/18 05:20 Creatinine 4.90 mg/dL (0.55-1.3) H 04/13/18 05:20 Glucose 108 mg/dL (74-106) H 04/13/18 05:20 Phosphorus 1.4 mg/dL (2.5-4.9) L 04/13/18 05:20 Magnesium 2.2 mg/dL (1.8-2.4) 04/07/18 03:10 Total Bilirubin 0.8 mg/dL (0.2-1.0) 04/07/18 03:10 AST 34 U/L (15-37) 04/07/18 03:10 ALT 11 U/L (12-78) L 04/07/18 03:10 Alkaline Phosphatase 62 U/L (45-117) 04/07/18 03:10 Troponin I 0.30 ng/mL (0.0-0.045) H 04/07/18 12:58 Home Medications: Albuterol Sulfate [Ventolin Hfa] 1 puff IH Q6HP PRN 04/03/18 Carvedilol 12.5 mg PO BID 04/03/18 Folic Acid/Vitamin B Comp W-C [Nephro-Uriel Tablet] 0.8 mg PO DAILY 04/03/18 Sevelamer Carbonate 800 mg PO TID 04/03/18 traMADol HCL [Ultram*] 2 tab PO BID 04/03/18 Docusate [Colace Cap*] 100 mg PO BID #60 cap 04/05/18 guaiFENesin [Robitussin 100MG/5ML*] 5 ml PO QID PRN #200 ml 04/05/18 Patient Discharge Instructions: Please f.u with Dr Wei in 1 to 2 week post discharge. You are setup with [facility]. No New medication. Stop Bumex and augmentin Diet: Regular Activity: Ad zhang Followup: Maricruz Wei MD [ACTIVE - CAN ADMIT] - 1 Week
[2018-04-14 18:17] VITALS: BP 144/91; TEMP 99.4
[2018-04-14 20:18] VITALS: O2SAT 98
--- NOTE | 2018-04-14 23:38 | PN ---
Date of Progress Note: 04/14/2018 Subjective: The patient was admitted with over volume, congestive heart failure, being dialyzed on a daily basis. The patient was required to be dialyzed 4 times a week. The patient has anemia, sched uled for dialysis today with the transfusion. Physical Examination: Vital Signs: Blood pressure 144/91, pulse of 100, afebrile. Chest: Faint crackles on the base. Heart: S1, S2. Regular. Abdomen: Soft, nontender. Extremities: No edema. Laboratory Data: WBC 2.7, H and H 7.9/22.9, platelet of 53. Sodium 136, potassium 4.2, bicarb 25, B UN 32, creatinine 4.9, calcium 8.4, phosphorus 1.4. Ferritin 1200. TSAT of 20. Current Medications: The patient on include; 1.Epogen. 2.Tylenol. 3.PhosLo. 4.Zofran. 5.B complex. 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 Anuric wi th cardiorenal syndrome secondary to advanced congestive heart failure. I am going to continue the p atient on dialysis. The patient is going to require 4 sessions of dialysis weekly to establish bob r volume control on the patient. We will continue to monitor. The patient is waiting for final setu p as on Hem-Onc. We will follow up after transfusion the patient will be able to be disch arged to followup in the . 2.Hypertension, controlled, optimal. Continue current medication. 3.Anemia secondary to chronic kidney disease and chemotherapy. Plan for transfusion of 2 units toda y. Continue AIDEE. 4.Congestive heart failure. Continue dialysis 4 times a week. We will follow up. ROBYN/BIANCA Voice ID: [id number] Report ID: [id number]
--- NOTE | 2018-04-14 23:56 | PN ---
Date of Progress Note: 04/14/2018 Subjective: The patient was admitted with congestive heart failure. The patient required daily dial ysis for the last few days, required 4 treatment per week to establish better volume control. Physical Examination: Vital Signs: Blood pressure 144/91, pulse of 100. Chest: Crackles bilateral base. Heart: S1, S2. Systolic murmur. Abdomen: Soft, nontender. Extremities: No edema. Laboratory Data: H and H 7.9/22.9. Sodium 136, potassium 4.2, bicarb 25, BUN 32, creatinine 4.9, TS AT 20, ferritin 1200, phosphorus 1.4, calcium 8.1. Medications: Current medications the patient is on include, 1.Carvedilol 6.25 b.i.d. 2.Epogen. 3.Hydralazine p.r.n. 4.Zofran. 5.Vancomycin. Assessment And Plan: 1.End-stage renal disease, secondary to acute kidney injury secondary to chemotherapy/car diorenal oliguric overvolume. Continue dialysis. The patient is going to require four sessions of d ialysis per week or daily dialysis to establish better volume control. The patient is set up for out patient dialysis with the home dialysis. We will follow up. 2.Hypertension, controlled, optimal. Continue current medication. 3.Anemia, secondary to chronic kidney disease and cancer. Continue transfusion today. We will cont inue Epogen. 4.Congestive heart failure with ejection fraction of 20%. We will try to establish better volume co ntrol with the dialysis. ROBYN/BIANCA Voice ID: [id number] Report ID: [id number]
== END 2018-04-14 19:30 | disposition home or self-care (01) | DRG 189 ==
LOC: ER 02:44 → ERHOLD 04:31 → 4TH 09:07
PROVIDERS: ADMIT Hospitalist; ATTEND Family Medicine
PROC: 5A1D70Z Performance of Urinary Filtration, Intermittent, Less than 6 Hours Per Day (ICD-10-PCS; 2018-04-07)
PROC: 5A1D70Z Performance of Urinary Filtration, Intermittent, Less than 6 Hours Per Day (ICD-10-PCS; 2018-04-08)
PROC: 5A1D70Z Performance of Urinary Filtration, Intermittent, Less than 6 Hours Per Day (ICD-10-PCS; 2018-04-09)
PROC: 5A1D70Z Performance of Urinary Filtration, Intermittent, Less than 6 Hours Per Day (ICD-10-PCS; 2018-04-10)
PROC: 5A1D70Z Performance of Urinary Filtration, Intermittent, Less than 6 Hours Per Day (ICD-10-PCS; 2018-04-12)
PROC: 5A1D70Z Performance of Urinary Filtration, Intermittent, Less than 6 Hours Per Day (ICD-10-PCS; 2018-04-13)
PROC: 5A1D70Z Performance of Urinary Filtration, Intermittent, Less than 6 Hours Per Day (ICD-10-PCS; principal; 2018-04-14)
DX: J96.00 Acute respiratory failure, unspecified whether with hypoxia or hypercapnia (principal); I50.23 Acute on chronic systolic (congestive) heart failure; N18.6 End stage renal disease; M31.1 Thrombotic microangiopathy; I13.2 Hypertensive heart and chronic kidney disease with heart failure and with stage 5 chronic kidney disease, or end stage renal disease; N17.9 Acute kidney failure, unspecified; C50.912 Malignant neoplasm of unspecified site of left female breast; D63.1 Anemia in chronic kidney disease; K59.00 Constipation, unspecified; D64.81 Anemia due to antineoplastic chemotherapy; J44.9 Chronic obstructive pulmonary disease, unspecified; Z17.0 Estrogen receptor positive status [ER+]; Z87.891 Personal history of nicotine dependence; Z99.2 Dependence on renal dialysis
CPT/HCPCS: 36415; 71045; 80048; 80069; 80076; 82550; 82553; 82607; 82728; 82746; 82805; 82962; 83540; 83615; 83735; 83880; 84466; 84484; 85025; 85044; 85610; 85730; 86850; 86900; 86901; 87040; 90935; 93005; 94640; 94660; 96374; 99285; J0360; J1644; J2150; J2270; J2405; P9016; P9047; Q4081

== ENCOUNTER 2018-04-22 05:35 | Inpatient (IN) | payer OTHER ==
--- OUTSIDE RECORDS SUMMARY | 2018-04-22 05:38 | XMS REPORT | Clinical Summary ---
:1965 Author Organization [facility] Address [address] [place] [address] Phone Care Team Providers Name Role Phone [...] in 2 hours if needed (maximum daily [id number]). melatonin 3 mg Tab Take 3 mg [...] 2 (two) times daily for 90 days. folic Take 1 tablet by 30 [...] of Breath for up to 30 days. rosuvastatin Take 10 mg by Discontinued (CRESTOR) [...] 018 tablet mouth daily for 10 days. dextromethorphan-gua Take 10 mLs by 236 mL 0 ifenesin mouth every 4 8 018 (ROBITUSSIN-DM) (four) hours as 10-100 mg/5 mL needed for up to liquid 10 days. traMADol (ULTRAM) 50 Take 2 tablets 30 tablet 0 mg tablet (100 mg total) by 8 018 mouth 2 (two) times daily for 10 days. 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 Demand ischemia ([facility]) 03/18/2018 (HFpEF) heart failure with preserved ejection fraction ([facility]) 03/18/2018 Thrombocytopenia ([facility]) 03/17/2018 Acute renal failure (ARF) ([facility]) 03/16/2018 Symptomatic anemia 03/16/2018 Metabolic acidosis 03/16/2018 Troponin level elevated 03/16/2018 Community acquired bacterial pneumonia 03/16/2018 Fever 12/11/2017 Breast cancer ([facility]) 12/11/2017 Sepsis due to undetermined organism without resultant organ failure ([facility]) Headache syndrome 10/21/2017 Other neutropenia ([facility]) 10/21/2017 Resolved Problems Problem Noted Date Resolved Date Sepsis ([facility]) 10/20/2017 12/09/2017 Abnormal LFTs (liver function tests) 10/20/2017 12/09/2017 Encounters Date Type Specialty Care Team Description 03/26/2018 Orders Only General Internal Medicine 03/17/2018 - [facility] Internal William Wren MD Metabolic acidosis 03/31/2018 Encounter Medicine Gian, (Primary Dx);Acute Christopher renal failureJoseph MD unspecified acute Titus, Tg [...] 03/17/2018 Telephone Critical Care William Wren MD [id number] Call Medicine 03/16/2018 - [facility] Internal Luis Fernando Kumar, Symptomatic anemia 03/17/2018 Encounter Medicine (Primary Andrew Pretty Dx);Generalized MD Fernie weakness;Essential hypertension;Cough;Sandi halley malignant neoplasm of breast with metastasis to other site, unspecified laterality (HCC);Acute renal failure, unspecified acute renal failure type (HCC);Dehydration;Comm unity acquired bacterial pneumonia;Troponin level elevated 12/08/2017 - [facility] Internal Norberto Ruggiero Fever, unspecified 12/12/2017 Encounter Medicine MD Martin fever cause (Primary Andrew Pretty Dx);LeukopeniaFernie MD unspecified type;Hyponatremia;[place] static breast cancer (HCC);Sepsis due to undetermined organism without resultant organ failure (HCC) 10/20/2017 - [facility] Internal Wai Bernal, Fever, unknown origin 10/23/2017 Encounter Medicine (Primary Dx);On Andrew Pretty antineoplastic MD Fernie chemotherapy;Other specified hypotension;Generalize d headache;Abnormal LFTs (liver function tests);Sepsis, due to unspecified organism (HCC);Headache syndrome;Other neutropenia (HCC) after 04/21/2017 Family History Medical History Relation Name Comments [...] Not on file Implants Implanted Type Area Mangle Tender Cloth Device Expiration Model / Identifier Date Serial / Lot Port,Mri Powerport Isp 6fr Chronoflex W/Suture Plugs - [id number] Catheter C R BARD 05/26/2015 [id number] / Implanted: Qty: 1 on 04/28/2014 by Luly Escalante Ports/Cent[employer] PERIPHERAL [id number] / l Line [id number] Procedures Procedure Name Priority Date/Time Associated Diagnosis Comments CRITICAL CARE Routine 03/16/2018 11:25 AM Results for this CDT procedure are in the results section. after 04/21/2017 Results RHYTHM STRIP - SCAN (04/02/2018 10:40 [...] 1 % Specimen Performing Laboratory Blood [facility] [address] [place] [address] CBC with platelet count + automated diff (03/31/2018 4:27 AM)Only the most recent of19 resultswithin the time period is included. Specimen Performing Laboratory Blood Narrative The following orders were created for panel order CBC with platelet count + automated diff. Procedure Abnormality Status --------- ------ CBC with platelet count ...[[id number]]AbnormalFinal result Please view results for these tests on the individual orders. Magnesium (03/31/2018 4:27 AM)Only the most recent of12 resultswithin the time period is included. Component Value Ref Range Magnesium 1.9 1.6 - 2.6 mg/dL Specimen Performing Laboratory Blood [address] [address] Basic Metabolic Panel (03/31/2018 4:27 AM)Only the [...] FOR DIALYSIS PATIENTS. Specimen Performing Laboratory Blood [address] [address] POC-Glucose meter (03/30/2018 6:39 PM)Only the most recent of4 resultswithin the time period is included. Component Value Ref Range POC-Glucose Meter 121 (H)Comment: TESTED AT [address] 70 - 110 mg/[place] [address] Specimen Performing Laboratory Blood [address] [address] IR CV Access Fluoro (03/30/2018 4:42 PM) Specimen Performing Laboratory GE RIS Narrative FINAL REPORT Tunneled dialysis catheter insertion. History: Renal failure. Modality: Sonography and fluoroscopy. Sedation: Versed 0.5 mg and fentanyl 25 mcg was given intravenously for conscious sedation.Vital signs were monitored throughout the procedure by a nurse, and remained stable. Physician intra-service time was 15 minutes. Laboratory Scientist:Blessing. Caretaker Resort:None. Approach: Right internal jugular vein Estimated blood [...] needle into the right atrium. A 4 Scottish micropuncture sheath was placed.A subcutaneous tunnel was created in the right anterior chest wall by blunt dissection.A 19 cm 15.5 Scottish Duraflow 2 catheter was brought through the [...] MD Report Verified Date/Time:04/01/2018 17:46:56 Reading Location: [place] [address] Angio Body Reading Room Procedure Note Interface, External Ris In - 04/01/2018 5:49 PM CDT FINAL REPORT Tunneled dialysis catheter insertion. History: Renal failure. Modality: Sonography and fluoroscopy. Sedation: Versed 0.5 mg and fentanyl 25 mcg was given intravenously for conscious sedation. Vital signs were monitored throughout the procedure by a nurse, and remained stable. Physician intra-service time was 15 minutes. Laboratory Scientist: Blessing. Caretaker Resort: None. Approach: Right internal jugular vein Estimated [...] needle into the right atrium. A 4 Scottish micropuncture sheath was placed. A subcutaneous tunnel was created in the right anterior chest wall by blunt dissection. A 19 cm 15.5 [place] Duraflow 2 catheter was brought through the [...] Report Verified Date/Time: 04/01/2018 17:46:56 Reading Location: [facility] P048 Angio Body Reading Room /aPTT (03/30/2018 4:37 AM)Only the most recent of4 resultswithin the time period is included. Component Value Ref Range Protime 16.7 (H) 11.7 - 14.7 seconds INR 1.4 <=5.9 PTT 39.8 (H) 22.5 - 36.0 seconds Specimen Performing [place] [address] Narrative RECOMMENDED COUMADIN/WARFARIN INR THERAPY RANGES STANDARD [...] COMPATIBLE Unit ABO A Pos UNIT NUMBER [id number] Status TRANSFUSED Blood Bank Product RED BLOOD CELLS PRODUCT CODE [id number] Specimen Performing Laboratory Other SAFETRACE [place] XR [...] MD Report Verified Date/Time:03/28/2018 22:19:58 Reading Location: [address] Reading Room Procedure Note Interface, External [...] Report Verified Date/Time: 03/28/2018 22:19:58 Reading Location: [address] Reading Room Lactic acid, venous, whole blood (03/28/2018 2:45 AM)Only the most recent of5 resultswithin the time period is included. Component Value Ref Range Lactate, Venous 1.1 0.5 - 2.2 mmol/L Specimen Performing Laboratory Blood [facility] [address] [address] Narrative Effective 11/28/2015: Units/Reference Range Change New: [...] FOR DIALYSIS PATIENTS. Specimen Performing Laboratory Blood [address] [address] Blood culture (03/28/2018 2:44 AM)Only the most recent of6 resultswithin the time period is included. Component Value Ref Range Result No growth in 5 days Specimen Performing Laboratory Blood - Central Venous Line [address] [address] Transfuse Leuko-Red RBC (03/27/2018 2:48 PM)Only the most recent of7 resultswithin the time period is included.Type and screen, automated (2017 12:03 PM)Only the most recent of3 resultswithin the time period is included. Component Value Ref Range ABO/RH AUTOMATED (BEAKER) A POSITIVE Ab Scrn NEGATIVE Specimen Performing Laboratory Blood [address] [address] XR shoulder complete 2 views min left [...] MD Report Verified Date/Time:03/26/2018 17:48:06 Reading Location: [facility] Radiology Reading Room Procedure Note [...] Report Verified Date/Time: 03/26/2018 17:48:06 Reading Location: [facility] Radiology Reading Room 12 lead (03/26/2018 8:47 AM)Only the most recent of4 resultswithin the time period is included. Specimen Performing Laboratory youcalc MUSE Narrative Ventricular Rate 89 BPM Atrial Rate 89 BPM P-R Interval 142 ms QRS Duration 64 ms Q-T Interval 384 ms QTC Calculation(Bazett) 467 ms P [place] 44 degrees R [place] 17 degrees T [place] 148 degrees Normal sinus rhythm ST & T wave abnormality, consider anterior ischemia Prolonged QT Abnormal ECG When compared with ECG of 19-MAR-2018 14:10, Nonspecific T wave abnormality, worse in Inferior leads T wave inversion now evident in Anterior leads Confirmed by MD LUL, ERICA Hernandez ([id number]) on 03/27/2018 7:24:27 AM Procedure Note Interface, External Ris In - 03/27/2018 7:24 AM CDT Ventricular Rate 89 BPM Atrial Rate 89 BPM P-R Interval 142 ms QRS Duration 64 ms Q-T Interval 384 ms QTC Calculation(Bazett) 467 ms P [place] 44 degrees R [place] 17 degrees T [place] 148 degrees Normal sinus rhythm ST & T wave abnormality, consider anterior ischemia Prolonged QT Abnormal ECG When compared with ECG of 19-MAR-2018 14:10, Nonspecific T wave abnormality, worse in Inferior leads T wave inversion now evident in Anterior leads Confirmed by MD LUL, ERICA Hernandez ([id number]) on 03/27/2018 7:24:[address] abdomen/pelvis without iv contrast (03/26/2018 12:39 AM) Specimen Performing Laboratory Apse Narrative FINAL REPORT CT, ABDOMEN \\T\\ PELVIS, [...] MD Report Verified Date/Time:03/26/2018 02:57:14 Reading Location: [facility] C013T Transitional Reading Room Procedure Note Interface, [...] Report Verified Date/Time: 03/26/2018 02:57:14 Reading Location: [address] Transitional Reading Room Peripheral Blood Smear - Hold only (03/25/2018 2:03 PM)Only the most recent of3 resultswithin the time period is included. Component Value Ref Range Peripheral Smear Save saved Specimen Performing Laboratory Blood [address] [address] Lactate dehydrogenase (LDH) (03/25/2018 2:03 PM)Only the most recent of4 resultswithin the time period is included. Component Value Ref Range LDH 722 (H) 125 - 220 U/L Specimen Performing Laboratory Blood [address] [address] US renal biopsy (03/24/2018 1:00 PM) Specimen Performing Laboratory GE RIS Narrative FINAL REPORT HISTORY: Acute kidney injury of unknown etiology Sedation: Moderate sedation was administered. 0.5 mg of Versed and 25 mcg of fentanyl IV was used for moderate sedation monitored under my direction. Total intra-service time of sedation [id number]. The patient's vital signs were monitored throughout [...] ultrasound guided core random biopsy of the [place] left kidney. Signed: Eduin Thompson MD Report Verified Date/Time:03/24/2018 12:59:37 Reading Location: [place] [id number] Ultrasound Reading Room Procedure Note Interface, External [...] ultrasound guided core random biopsy of the [place] left kidney. 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 One study (see reference) have reported arteriolar deposition of C4d to suggest a deficit in complement regulation. Clinical correlation is recommended. Reference: Earline ROMAN, et al. Complement Factor C4d Is a Common Denominator in Thrombotic Microangiopathy. J Am Soc Nephrol. 2015 Mar;26(9):2239-47. The results were communicated to Dr. Vital on 03/25/2018 at 10.15 am. CPT Code(s) 05272, 30762 X3, 27602, 14409 x8, 97884 CLINICAL HISTORY Left renal failure evaluation SPECIMEN SOURCE [place] left kidney biopsy GROSS DESCRIPTION The specimen [...] tubular basement membranes. Fibrinogen: Positive in thrombi [place]:Focal segmental to global, granular, peripheral capillary loop [...] Specimen Performing Laboratory Tissue - Kidney, Left [address] [address] Phosphorus (03/22/2018 11:26 PM)Only the most recent of2 resultswithin the time period is included. Component Value Ref Range Phosphorus 6.1 (H) 2.3 - 4.7 mg/dL Specimen Performing Laboratory Blood - Central Venous Line [address] [address] Hepatic function panel (03/22/2018 4:51 PM)Only the [...] Performing Laboratory Blood - Central Venous Line [address] [address] Prothrombin time/INR (03/22/2018 6:28 AM)Only the most recent of3 resultswithin the time period is included. Component Value Ref Range Protime 16.2 (H) 11.7 - 14.7 seconds INR 1.3 <=5.9 Specimen Performing Laboratory Blood - Arm, [address] [address] Narrative RECOMMENDED COUMADIN/WARFARIN INR THERAPY RANGES STANDARD [...] % Specimen Performing Laboratory Blood - Arm, [address] [address] Haptoglobin (03/22/2018 6:28 AM)Only the most recent of3 resultswithin the time period is included. Component Value Ref Range Haptoglobin <8 (L) 14 - 258 mg/dL Specimen Performing Laboratory Blood - Arm, [address] [address] CBC (Hemogram only) (03/21/2018 3:21 AM)Only the [...] Specimen Performing Laboratory Blood - Arm, Right [address] [address] Hepatitis B Panel (03/20/2018 12:12 PM) Component Value Ref Range Hep B Core Total Ab Nonreactive Nonreactive Hep B S Ab 133.0 (H) <8.0 mIU/mL Comment: Testing performed at [facility]. See attach result for further interpretation. hepatitis B Surface Ag Nonreactive Nonreactive Specimen Performing Laboratory Blood - Central Venous Line [address] [address] Hepatitis C antibody (03/20/2018 12:12 PM) Component Value Ref Range Hepatitis C Ab Nonreactive Nonreactive Specimen Performing Laboratory Blood - Central Venous Line [address] [address] TSH/Free T4 If Indicated (03/20/2018 5:39 AM) Component Value Ref Range TSH 7.12 (H) 0.35 - 4.94 uIU/mL Specimen Performing Laboratory Blood [address] [address] T4, free (03/20/2018 5:39 AM) Component Value Ref Range Free T4 0.67 (L) 0.70 - 1.48 ng/dL Specimen Performing Laboratory Blood [address] [address] Prepare plasma (03/19/2018 11:54 PM)Only the most recent of2 resultswithin the time period is included. Component Value Ref Range Unit ABO A UNIT NUMBER [id number] Status TRANSFUSED Blood Bank Product FFP PRODUCT CODE [id number] Unit ABO A UNIT NUMBER [id number] Status TRANSFUSED Blood Bank Product FFP PRODUCT CODE [id number] Specimen Performing Laboratory Blood SAFETRACE TX PTH, intact (03/19/2018 5:29 AM) Component Value Ref Range PTH 690.0 (H) 8.5 - 72.5 pg/mL Specimen Performing Laboratory Blood - Central Venous Line [address] [address] Vancomycin level, random (03/19/2018 5:29 AM)Only the most recent of2 resultswithin the time period is included. Component Value Ref Range Vancomycin Rm 14.4 ug/mL Specimen Performing Laboratory Blood - Central Venous Line [address] [address] Narrative Reference Range: No Normals Direct AHG (BASIL)/Direct Rose (03/18/2018 3:23 PM) Component Value Ref Range Direct AHG-IGG NEGATIVE Direct AHG-C3B, C3D NEGATVIE Specimen [place] [address] EKG-SCANNED (03/18/2018 2:53 PM)Calcium, Ionized (03/18/2018 9:15 AM)Only the most recent of3 resultswithin the time period is included. Component Value Ref Range Calcium, Ion 0.94 (L) 1.12 - 1.27 mmol/L pH, Blood 7.48 Specimen Performing Laboratory Blood [place] [address] aPTT (03/18/2018 8:37 AM)Only the most recent of2 resultswithin the time period is included. Component Value Ref Range PTT 38.9 (H) 22.5 - 36.0 seconds Specimen Performing Laboratory Blood - Central Venous Line [address] [address] D-dimer (03/18/2018 8:37 AM)Only the most recent of2 resultswithin the time period is included. Component Value Ref Range D-Dimer, Quant 3.18 (H) <0.50 MG/L FEU Specimen Performing Laboratory Blood - Central Venous Line [address] [address] Narrative Intended Use: The D-Dimer Assay can [...] - 295 mOsm/kg Specimen Performing Laboratory Blood [address] [address] Transfusion Reaction Investigation (03/18/2018 4:06 AM) Component Value Ref Range TRANSFUSION RX INVESTIGATION(ADDY) SEE COMMENTComment: Anaphylactoid reaction vs hypocalcemic response on TPE. Patient promptly recovered post fluid bolus. No special precautions required for future transfusions,Electronic Signature: Yuval Carmichael M.D. Specimen [place] [address] Transfuse plasma (03/18/2018 3:56 AM)Urea Nitrogen, random urine (03/18/2018 2 :20 AM) Component Value Ref Range Urea Nitrogen, Ur 298 mg/dL Specimen Performing Laboratory Urine - Urine, [place] [address] Narrative Reference Range: No Normals Sodium, random urine (03/18/2018 2:20 AM) Component Value Ref Range Sodium Urine 57 meq/L Specimen Performing Laboratory Urine - Urine, [place] [address] Narrative Reference Range: No Normals Potassium, random urine (03/18/2018 2:20 AM) Component Value Ref Range Potassium Urine 41.5 meq/L Specimen Performing Laboratory Urine - Urine, [place] [address] Narrative Reference Range: No Normals Osmolality, urine (03/18/2018 2:20 AM) Component Value Ref Range Osmolality, Ur 316 40 - 1400 mOsm/kg Specimen Performing Laboratory Urine - [place], [place] [address] Creatinine, random urine (03/18/2018 2:20 AM)Only the most recent of2 resultswithin the time period is included. Component Value Ref Range Creatinine, Ur 36.3 mg/dL Specimen Performing Laboratory Urine - [place]rine, [place] [address] Narrative Reference Range: No Normals VWF Protease (ADAMTS-13)Activity (03/18/2018 2:19 AM) Component Value Ref Range VWF Protease Profile Refer to individaul VWF Protease Activity and Inhibitor results. Specimen Performing Laboratory Blood Procalcitonin (03/18/2018 1:27 AM) Component Value Ref Range Procalcitonin 8.65 (H) <0.05 ng/mL Specimen Performing Laboratory Blood [address] [address] Narrative SEPSIS RISK (ng/mL) Low:0.05-0.50 Intermediate: 0.51-2.00 High: >=2.01 Troponin I (03/18/2018 1:27 AM)Only the most recent of4 resultswithin the time period is included. Component Value Ref Range Troponin I 0.77 (HH) 0.00 - 0.03 ng/mL Specimen Performing Laboratory Blood [address] [address] Narrative Troponin I (TnI) levels must be [...] Rh Factor POS Specimen Performing Laboratory Blood [address] [address] Fibrinogen (03/18/2018 12:59 AM) Component Value Ref Range Fibrinogen 466 (H) 225 - 434 mg/dl Specimen Performing Laboratory Blood [address] [address] Biopsy Bone Marrow (03/17/2018 3:01 PM) Component Value Ref Range Anatomic Case# [id number] Ordering Physician jordan Sultana m.d. Performing Physician Jordan Sultana m.d. Clot Rec'd? Yes Biopsy Rec'd? Yes Rec'd for Culture? No Rec'd for Flow? Yes Rec'd for Cytogenetics? Yes Rec'd for Molecular Genetics? No Specimen Performing Laboratory Bone Marrow - Iliac Crest, Right [facility] [address] [place] [address] Flow Cytometry Requisition (03/17/2018 3:00 PM) Component Value Ref Range Flow Cytometry See Separate Report Case # [id number] Specimen Performing Laboratory Bone Marrow [facility] [address] [address] Flow Cytometry (03/17/2018 3:00 PM) Component Value Ref Range Case Report Flow Cytometry Report Case: [id number] Authorizing Provider:Jordan Sultana MD Collected: 03/17/2018 1500 Ordering Location: [address] Med/SurgReceived: 03/17/2018 1714 Pathologist: Doug Lee [...] the bone marrow biopsy report([id number]). CPT Code(s) 23628 CLINICAL HISTORY 53 wf with h/o right breast ca s/p surgery and chemo xrt in 2013 found to have recurrence with extensive metastases, started on carboplatin and gemcitabine in October 2017, transferred from [facility] for management of MAHA with REJI. SPECIMEN SOURCE BONE MARROW ASPIRATE CELLULAR BIOMARKER ANALYSIS CD8, surface-[place], CD56, surface-Lambda, CD5, CD19, CD10, CD3, CD20, CD4, CD45, CD14, CD13, CD33, CD117, CD34, cKappa, cLambda , CD38, CD138 IMMUNOPHENOTYPIC FINDINGS Specimen Viability: 92.4%Number of Events Acquired: 737442 The following populations are identified: Blasts: the [...] developed and their performance characteristics determined by [facility] They have not been cleared or approved by the U.S. Food and Drug Administration. The FDA has determined that such clearance or approval is not necessary. It should not be regarded as investigational or for research. This laboratory is certified under the Clinical Laboratory Improvement Amendments of 1988 ("CLIA") as qualified to perform high-complexity clinical testing. Specimen Performing Laboratory Other [address] [address] Bone Marrow Exam (03/17/2018 2:57 PM) Component Value Ref Range Case Report Bone Marrow Pathology Report Case: [id number] Authorizing Provider:Jordan Sultana MD Collected: 03/17/2018 1451 Ordering Location: [address] Med/SurgReceived: 03/17/2018 [facility] Pathologist: Doug Lee MD Specimens: A) - Iliac, Right B) - Iliac, Right C) - Iliac, Right ADDENDUM This addendum is created to report the Nephera results for the Oncologic chromosomal study: There [...] ANEMIA -THROMBOCYTOPENIA Signing Pathologist Direct Phone Line: [phone] COMMENT Bone marrow biopsy evaluation was performed [...] as an addendum when available. CPT Code(s) 30098; 95770; 18810 x 2; 89264; 54226 06528 x 1; 01426 x11 CLINICAL HISTORY Primary malignant neoplasm of [...] some erythroid precursors. CD138:Highlights few plasma cells [place]:Highlights polyclonal plasma cells Lambda:Highlights polyclonal plasma cells [...] developed and its performance characteristics determined by [facility], Pathology Laboratory. It has not been cleared [...] 5.2, CD3, CD20, CD34, CD61, CD117, CD138, [place], Lambda, E-Cadherin. Specimen Performing Laboratory Bone Marrow - Iliac, Right [facility] [address] [place] [address] CT Biopsy/Aspiration/Injection (03/17/2018 2:41 PM) Specimen Performing Laboratory GE RIS Narrative FINAL REPORT PROCEDURE: CT-guided bone marrow biopsy DOSE REDUCTION: The examination was performed according to departmental dose-optimization program which includes automated exposure control, adjustment of the mA and/or kV according to patient size and/or use of iterative reconstruction technique. Clinical History: Pancytopenia Chain Maker: Marce Conscious sedation: Versed 1 mg, fentanyl [...] was immediately removed and provided to the lead nuclear medicine technologist. Subsequently a core biopsy was obtained using the outer sheath. The needle and sheath were removed. Postprocedure CT evaluation of the area revealed no significant hematoma. Patient tolerated the procedure well and remained hemodynamically stable throughout. IMPRESSION: Successful and uncomplicated CT-guided bone marrow aspiration and core biopsy. Signed: Jordan Sultaan MD Report Verified Date/Time:03/17/2018 17:06:03 Reading Location: [facility] Radiology Reading Room Procedure Note Interface, External Ris In - 03/17/2018 5:08 PM CDT FINAL REPORT PROCEDURE: CT-guided bone marrow biopsy DOSE REDUCTION: The examination was performed according to departmental dose-optimization program which includes automated exposure control, adjustment of the mA and/or kV according to patient size and/or use of iterative reconstruction technique. Clinical History: Pancytopenia Chain Maker: Marce Conscious sedation: Versed 1 mg, fentanyl [...] was immediately removed and provided to the lead nuclear medicine technologist. Subsequently a core biopsy was obtained using the outer sheath. The needle and sheath were removed. Postprocedure CT evaluation of the area revealed no significant hematoma. Patient tolerated the procedure well and remained hemodynamically stable throughout. IMPRESSION: Successful and uncomplicated CT-guided bone marrow aspiration and core biopsy. Signed: Jordan Sultana MD Report Verified Date/Time: 03/17/2018 17:06:03 Reading Location: [facility] Radiology Reading Room CARDIOGRAM REPORT - SCAN (03/17/2018 12:50 PM)XR chest 2 views (03/17/2018 10:42 AM)Only the most recent of3 resultswithin the time period is included. Specimen Performing Laboratory RIS Narrative FINAL REPORT Comparison: 15/08/2017 TECHNIQUE: 2 views of the chest FINDINGS: There is mild vascular congestion. There are small pleural effusions. Cardiac silhouette is enlarged. Left internal jugular chest port noted with tip at the cavoatrial junction. Surgical clips project over the right chest wall. Signed: Jordan Sultana MD Report Verified Date/Time:03/17/2018 13:39:16 Reading Location: [facility] Radiology Reading Room Procedure Note Interface, [...] Report Verified Date/Time: 03/17/2018 13:39:16 Reading Location: [facility] Radiology Reading Room 2D Echo W/Doppler(CW/PW/Color) (03/17/2018 8:04 AM) Component Value Ref Range Ejection Fraction Specimen Performing Laboratory [facility] ECHO [facility]ART[facility] MKCKESSON CPA Narrative Transthoracic Echocardiography Report (TTE) Demographics Patient Name GABY GOLDADate of Study 03/17/2018 ADAN [id number] GenderFemale Visit Number [id number] Arcadio [id number] Number [id number] Number Date of Birth1965 Referring Physician Age53 year(s) 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 Physician Procedure Type [...] Scan Result Specimen Performing Laboratory Bone Marrow [facility] [address] [place] [address] PARVOVIRUS B19 IGM (03/17/2018 6:02 AM) Component [...] B19 DNA, PCR. Specimen Performing Laboratory [facility] [place] [address] [place] [address] Narrative Performing Lab *[facility] [address] [place] [phone] Susannah Cherry MD PARVOVIRUS B19 IGG (03/17/2018 6:02 AM) Component Value Ref Range Parvovirus B19 Igg 0.6 Comment: REFERENCE RANGE: <0.9 INTERPRETIVE CRITERIA: <0.9 Negative 0.9 - 1.1 Equivocal >1.1 Positive IgG persists for years and provides life-long immunity. To diagnose current infection, consider Parvovirus B19 DNA, PCR. Specimen Performing Laboratory Blood [facility] [address] [place] [address] Narrative Performing Lab *[facility] [id number] [place] [phone] Susannah Cherry MD Parvovirus B19 antibodies (IgG, IgM) (03/17/2018 6:02 AM) Component Value Ref Range Parvovirus Ab Profile. Refer to individual Parvovirus B19 IgG and Igm results Specimen Performing Laboratory Blood [facility] [address] [place] [address] Blood gas, arterial (03/17/2018 4:53 AM) Component [...] Performing Laboratory Blood, Arterial - Arm, Right [facility] [address] [place] [address] Protein, random urine (03/16/2018 10:45 PM) Component Value Ref Range Protein, Urine 432 (H) 0 - 14 mg/dL Specimen Performing Laboratory Urine [facility] [address] [place] [address] Urine Protein Electrophoresis, random (03/16/2018 10:45 PM) Component Value Ref Range Protein, Urine 412 (H) 0 - 14 mg/dL Albumin %, Urine 56.3 % Globulin %, Urine 43.7 % UPEP,ID No monoclonal bands detected. Pathologist: Barbie Mccollum MD (electronic signature) Specimen Performing Laboratory Urine [address] [address] Urine Immunofixation, random (03/16/2018 10:45 PM) Component Value Ref Range Protein, Urine 412 (H) 0 - 14 mg/dL Albumin %, Urine 56.3 % Globulin %, Urine 43.7 % URINE JUDSON ID No monoclonal proteins or monoclonal free light chains detected. Pathologist: Barbie Mccollum MD (electronic signature) Specimen Performing Laboratory Urine [address] [address] Urinalysis w/Microscopic (03/16/2018 10:45 PM)Only the most recent of4 resultswithin the time period is included. Component Value Ref Range Color, UA Yellow Clarity, UA Clear Specific [place], UA 1.020 1.001 - 1.035 pH, UA [...] /LPF Specimen Source Specimen Performing Laboratory Urine [facility] [address] [place] [address] Peripheral Blood Smear - Path Review (03/16/2018 9:47 PM) Component Value Ref Range Pathologist Review Normochromic normocytic anemia with rare schistocytes seen (1-2/ HPF). WBCs normal in number and morphology. Thrombocytopenia with a few large forms. Pathologist: Michelle Yu M.D. (electronic signature) Specimen Performing Laboratory Blood [facility] [address] [place] [address] SARAH Titer & Pattern (03/16/2018 9:47 PM) Component Value Ref Range SARAH Titer >=1:2560 SARAH Pattern Speckled Specimen Performing Laboratory Blood [address] [address] Glomerular basement membrane antibody (03/16/2018 9:47 PM) Component Value Ref Range GBM Ab <1.0 <1.0 AI Comment: Interpretation: < 1.0 AI No Antibody Detected > OR=1.0 AI Antibody Detected Specimen Performing Laboratory Blood [facility] [address] [address] Narrative Performing Lab [facility] [address] [address] Eusebia Jolly MD, PhD, LUIS ALBERTO Anti-Neutrophil Cytoplasmic Ab (ANCA) (03/16/2018 9:47 PM) Component Value Ref Range Proteinase-3 Ab <1.0 <1.0 AI Comment: <1.0 AI No Antibody Detected > or=1.0 AI Antibody Detected Autoantibodies to proteinase-3 (KY-3) are accepted as characteristic for granulomatosis with polyangiitis (GPA, Amber's), and are detectable in 95% of the histologically proven cases. The cytoplasmic IFA pattern, (c-ANCA), is based largely on autoantibody to KY-3 which serves as the primary antigen. These [...] Specimen Performing Laboratory Blood [facility] [address] [address] Narrative Performing Lab [facility] [address] [address] Eusebia Jolly MD, PhD, LUIS ALBERTO Immunofixation electrophoresis (JUDSON) (03/16/2018 9:47 PM) Component Value Ref Range IgG 2008 (H) 540 - 1822 mg/dL IgA 37 (L) 63 - 484 mg/dL IgM 673 (H) 22 - 293 mg/dL Serum JUDSON Identification No monoclonal proteins detected. Polyclonal elevation of gamma globulins. Pathologist: Barbie Mccollum MD (electronic signature) Specimen Performing Laboratory Blood [address] [address] Bilirubin, total and direct (03/16/2018 9:47 PM) Component Value Ref Range Total Bilirubin 2.1 (H) 0.1 - 1.2 mg/dL Bilirubin, Direct 1.1 (H) 0.0 - 0.4 mg/dL Specimen Performing Laboratory Blood [facility] [address] [place] [address] Complement Component C3 (03/16/2018 9:47 PM) Component Value Ref Range C3 Complement 94 82 - 193 mg/dL Specimen Performing Laboratory Blood [address] [address] Complement Component C4 (03/16/2018 9:47 PM) Component Value Ref Range C4 Complement 22 15 - 57 mg/dL Specimen Performing Laboratory Blood [address] [address] Anti-Nuclear Antibody (SARAH) (03/16/2018 9:47 PM) Component Value Ref Range SARAH Positive (A) Negative Specimen Performing Laboratory [address] [address] Narrative Test performed by IFA method. Protein [...] - 8.3 gm/dL Specimen Performing Laboratory Blood [address] [address] Ketone, blood (03/16/2018 9:47 PM) Component Value Ref Range Ketones, Blood 0.3 <0.4 mmol/L Specimen Performing Laboratory [facility] [address] [place] [address] ED ECG Interpretation (03/16/2018 11:25 AM) Narrative Luis Fernando Kumar DO 03/16/2018 11:25 AM ECG/EKG Interpretation Date/Time: 03/16/2018 10:21 AM Performed by: LUIS FERNANDO KUMAR Authorized by: LUIS FERNANDO KUMAR The ECG was interpreted by ED physician. This ECG was not compared with previous ECG(s).The ECG is interpreted as sinus tachycardia. Rate is tachycardic. Heart rate is [address] segments normal. [place] is normal. Clinical Impression: non-specific ECGECG reviewed [...] Rh Factor POS Specimen [place] [address] Manual Differential (03/16/2018 10:02 AM)Only the most recent of4 resultswithin the time period is included. Component Value Ref Range Total Counted WBC Morphology Normal Platelet Morphology Normal Schistocytes 1+ few Anisocytosis 1+ few Macrocytes 1+ few Microcytes 1+ few Poikilocytes 1+ few Polychromasia 1+ few Specimen Performing Laboratory Blood [facility] [address] [place] [address] Creatine Kinase (CK), Total and MB (not available at [facility]) (2017 10:02 AM) Component Value Ref Range Total CK 125 25 - 235 U/L CK-MB 0.9 0.0 - 4.9 ng/mL MB Relative Index 0.7 % Specimen Performing Laboratory Blood [facility] [address] [place] [address] Narrative CK-MB Reference Range: <5 Normal 5-10 Borderline >10Abnormal Respiratory Panel [facility] (12/11/2017 10:13 AM) Component Value Ref Range [...] Specimen Performing Laboratory Nasopharyngeal - Nasopharyngeal Swab [address] [address] Vancomycin level, trough (12/11/2017 4:58 AM)Only the most recent of2 resultswithin the time period is included. Component Value Ref Range Vancomycin Tr 11.7 10.0 - 20.0 ug/mL Specimen Performing Laboratory Blood [facility] [address] [place] [address] Urine culture (12/08/2017 7:03 PM)Only the most recent of2 resultswithin the time period is included. Component Value Ref Range Result No growth Specimen Performing Laboratory Urine - Urine, Clean Catch [facility] [address] [place] [address] brain without IV contrast (10/20/2017 4:58 PM) Specimen Performing Laboratory [facility] Narrative FINAL REPORT CT Head without [...] MD Report Verified Date/Time:10/20/2017 17:12:46 Reading Location: [facility] Radiology Reading Room Procedure Note Interface, External [...] Report Verified Date/Time: 10/20/2017 17:12:46 Reading Location: [facility] Radiology Reading Room abdomen pelvis with IV contrast (10/20/2017 9:00 AM) Specimen Performing Laboratory [facility] Narrative FINAL REPORT INDICATION: 52-year-old female with [...] MD Report Verified Date/Time:10/20/2017 09:17:32 Reading Location: [facility] [id number] Ortho Consult Reading Room Procedure Note [...] Report Verified Date/Time: 10/20/2017 09:17:32 Reading Location: [address] Ortho Consult Reading Room Influenza antigen A & B (Rapid) (10/20/2017 7:26 AM) Component Value Ref Range Rapid Influenza A Antigen Negative Negative, Inconclusive Rapid influenza B Antigen Negative Negative, Inconclusive Specimen Performing Laboratory Nasopharyngeal - Nasopharyngeal Swab [facility] [address] [place] [address] Lipase (10/20/2017 7:23 AM) Component Value Ref Range Lipase 42 6 - 51 U/L Specimen Performing Laboratory Blood [facility] [address] [place] [address] after 04/21/2017
--- OUTSIDE RECORDS SUMMARY | 2018-04-22 05:41 | XMS REPORT ---
:1965 Author Organization [facility] Address [address] [place] [address] Dr. Antony [address] [place] [id number] Care Team Providers Name Role Phone HOLLY [...] Value Reference Range Comments CULTURE (BEAKER) (test xmlr=2223) No growth in 5 days ANG, CV ACCESS, [id number] 17:46:00Reason for exam:->TDC placement for outpatient HDFINAL REPORT Tunneled dialysis catheter insertion. History: Renal failure. Modality: Sonography and fluoroscopy. Sedation: Versed 0.5 mg and fentanyl 25 mcg was given intravenously for conscious sedation. Vital signs were monitored throughout the procedure by a nurse, and remained stable. Physician intra-service time was 15 minutes. Fire Apparatus Sprinkler Inspector: Blessing. Tan Room Supervisor: None. Approach: Right internal jugular vein Estimatedblood [...] needle into the right atrium. A 4 Trinidadian micropuncture sheath was placed. A subcutaneous tunnel was created in the right anterior chest wall by blunt dissection. A 19 cm 15.5 Trinidadian Duraflow 2catheter was brought through the tunnel. [...] fluoroscopic guidance and conscious sedation. Signed: [facility] Verified Date/Time: 04/01/2018 17:46:56 Reading Location: [place] [address] Angio Body Reading Room TISSUE [id number] 11:52:00Surgical Pathology Report Case: [id number] Authorizing Provider: Michelle Ram MD Collected: 03/24/2018 1253 Ordering Location: [address] Received: 03/24/2018 1254 Service Pathologist: Dennise Jo MD Specimen: Kidney, Left, Left kidney needle biopsy KIDNEY, LEFT, NEEDLE BIOPSIES- ACUTE THROMBOTIC MICROANGIOPATHY- MODERATE INTERSTITIAL FIBROSIS AND TUBULAR ATROPHY ( ~40%) Signing Pathologist Direct Phone Line: [phone] signed by Dennise Jo MD on 03/31/2018 [...] Dr. Vital on 03/25/2018 at 10.15 am. [address], [address] X3, 86334, 21030 x8, [id number] renal failure evaluationNative left kidney biopsyThe specimen [...] with extensive effacement of foot processes.BASIC METABOLIC [id number] 06:14:00 Test Item Value Reference Range Comments SODIUM (BEAKER) (test 133 meq/L 136-145 dlyb=476) POTASSIUM (BEAKER) (test 4.6 meq/L 3.5-5.1 jduk=093) CHLORIDE (BEAKER) (test 99 meq/L 98-107 erow=967) CO2 (BEAKER) (test 24 meq/L 22-29 dkep=844) BLOOD UREA NITROGEN 45 mg/dL 7-21 (BEAKER) (test devg=167) CREATININE (BEAKER) (test 4.49 mg/dL 0.57-1.25 dbot=552) GLUCOSE RANDOM (BEAKER) 95 mg/dL 70-105 (test efkk=226) CALCIUM (BEAKER) (test 8.1 mg/dL 8.4-10.2 hwbe=862) EGFR (BEAKER) (test 10 mL/min/1.73 sq m ESTIMATED GFR IS NOT xnmo=1597) ACCURATE CREATININE CLEARANCE IN PREDICTING GLOMERULAR FILTRATION RATE. ESTIMATED GFR IS NOT APPLICABLE FOR DIALYSIS PATIENTS. [id number] 06:05:00 Test Item Value Reference Range Comments MAGNESIUM (BEAKER) (test vvzp=839) 1.9 mg/dL 1.6-2.6 CBC W/PLT COUNT & AUTO [id number] 05:20:00 Test Item Value Reference Range Comments WHITE BLOOD CELL COUNT (BEAKER) (test dyeh=632) 4.1 K/ L 3.5-10.5 RED BLOOD CELL COUNT (BEAKER) (test telp=835) 2.55 M/ L 3.93-5.22 HEMOGLOBIN (BEAKER) (test shif=148) 8.0 GM/DL 11.2-15.7 HEMATOCRIT (BEAKER) (test nisp=924) 26.0 % 34.1-44.9 MEAN CORPUSCULAR VOLUME (BEAKER) (test qvsi=361) 102.0 fL 79.4-94.8 MEAN CORPUSCULAR HEMOGLOBIN (BEAKER) (test 31.4 pg 25.6-32.2 pwmu=995) MEAN CORPUSCULAR HEMOGLOBIN CONC (BEAKER) (test 30.8 GM/DL 32.2-35.5 qjls=892) RED CELL DISTRIBUTION WIDTH (BEAKER) (test 18.9 % 11.7-14.4 spcg=215) PLATELET COUNT (BEAKER) (test bgkb=052) 54 K/CU MM 150-450 MEAN PLATELET VOLUME (BEAKER) (test ipaa=894) 12.9 fL 9.4-12.3 NUCLEATED RED BLOOD CELLS (BEAKER) (test 0 /100 WBC 0-0 bqwd=540) NEUTROPHILS RELATIVE PERCENT (BEAKER) (test 84 % mprx=075) LYMPHOCYTES RELATIVE PERCENT (BEAKER) (test 8 % vfct=705) MONOCYTES RELATIVE PERCENT (BEAKER) (test 7 % ozki=778) EOSINOPHILS RELATIVE PERCENT (BEAKER) (test 1 % hllc=038) BASOPHILS RELATIVE PERCENT (BEAKER) (test 0 % nxns=310) NEUTROPHILS ABSOLUTE COUNT (BEAKER) (test 3.45 K/ L 1.56-6.13 wxju=716) LYMPHOCYTES ABSOLUTE COUNT (BEAKER) (test 0.33 K/ L 1.18-3.74 vpjo=851) MONOCYTES ABSOLUTE COUNT (BEAKER) (test jksb=406) 0.28 K/ L 0.24-0.36 EOSINOPHILS ABSOLUTE COUNT (BEAKER) (test 0.03 K/ L 0.04-0.36 pazm=672) BASOPHILS ABSOLUTE COUNT (BEAKER) (test ubhg=819) 0.01 K/ L 0.01-0.08 IMMATURE GRANULOCYTES-RELATIVE PERCENT (BEAKER) 1 % 0-1 (test iypw=1065) POCT-GLUCOSE [id number] 18:43:00 Test Item Value Reference Range Comments POC-GLUCOSE METER (BEAKER) 121 mg/dL 70-110 TESTED AT [facility] [address] [facility] (test sdtp=4176) [facility] [address] BASIC METABOLIC [id number] 06:46:00 Test Item Value Reference Range Comments SODIUM (BEAKER) (test 133 meq/L 136-145 kwas=128) POTASSIUM (BEAKER) (test 4.1 meq/L 3.5-5.1 xopo=286) CHLORIDE (BEAKER) (test 98 meq/L 98-107 uzow=252) CO2 (BEAKER) (test 25 meq/L 22-29 xach=205) BLOOD UREA NITROGEN 27 mg/dL 7-21 (BEAKER) (test koln=405) CREATININE (BEAKER) (test 2.91 mg/dL 0.57-1.25 fmnm=180) GLUCOSE RANDOM (BEAKER) 92 mg/dL 70-105 (test ypkz=827) CALCIUM (BEAKER) (test 8.3 mg/dL 8.4-10.2 nfiq=062) EGFR (BEAKER) (test 17 mL/min/1.73 sq m ESTIMATED GFR IS NOT cpem=4531) ACCURATE CREATININE CLEARANCE IN PREDICTING GLOMERULAR FILTRATION RATE. ESTIMATED GFR IS NOT APPLICABLE FOR DIALYSIS PATIENTS. [id number] 06:34:00 Test Item Value Reference Range Comments MAGNESIUM (BEAKER) (test ihrf=164) 1.9 mg/dL 1.6-2.6 [id number] 06:13:00 Test Item Value Reference Range Comments PROTIME (BEAKER) (test ssuo=992) 16.7 seconds 11.7-14.7 INR (BEAKER) (test vywz=557) 1.4 <=5.9 PARTIAL THROMBOPLASTIN TIME (BEAKER) (test 39.8 seconds 22.5-36.0 vtde=106) RECOMMENDED COUMADIN/WARFARIN INR THERAPY RANGESSTANDARD DOSE: 2.0 - 3.0 Includes: PROPHYLAXIS forvenous thrombosis, systemic embolization; TREATMENT for venous thrombosis and/or pulmonary embolus.HIGH RISK: Target INR is 2.5-3.5 for patients with mechanical heart valves.CBC W/PLT COUNT & AUTO [id number] 06:11:00 Test Item Value Reference Range Comments WHITE BLOOD CELL COUNT (BEAKER) (test fmsx=588) 3.2 K/ L 3.5-10.5 RED BLOOD CELL COUNT (BEAKER) (test xttf=782) 2.51 M/ L 3.93-5.22 HEMOGLOBIN (BEAKER) (test lbvc=553) 8.0 GM/DL 11.2-15.7 HEMATOCRIT (BEAKER) (test nvqa=894) 25.7 % 34.1-44.9 MEAN CORPUSCULAR VOLUME (BEAKER) (test pcdi=112) 102.4 fL 79.4-94.8 MEAN CORPUSCULAR HEMOGLOBIN (BEAKER) (test 31.9 pg 25.6-32.2 ukhh=414) MEAN CORPUSCULAR HEMOGLOBIN CONC (BEAKER) (test 31.1 GM/DL 32.2-35.5 imol=819) RED CELL DISTRIBUTION WIDTH (BEAKER) (test 19.3 % 11.7-14.4 gvmu=555) PLATELET COUNT (BEAKER) (test cjjx=185) 49 K/CU MM 150-450 MEAN PLATELET VOLUME (BEAKER) (test nooa=694) 12.6 fL 9.4-12.3 NUCLEATED RED BLOOD CELLS (BEAKER) (test 0 /100 WBC 0-0 alfx=363) NEUTROPHILS RELATIVE PERCENT (BEAKER) (test 82 % mrtp=589) LYMPHOCYTES RELATIVE PERCENT (BEAKER) (test 9 % lixd=189) MONOCYTES RELATIVE PERCENT (BEAKER) (test 9 % elqp=577) EOSINOPHILS RELATIVE PERCENT (BEAKER) (test 0 % zriu=697) BASOPHILS RELATIVE PERCENT (BEAKER) (test 0 % nctb=619) NEUTROPHILS ABSOLUTE COUNT (BEAKER) (test 2.60 K/ L 1.56-6.13 xqcv=146) LYMPHOCYTES ABSOLUTE COUNT (BEAKER) (test 0.29 K/ L 1.18-3.74 liml=913) MONOCYTES ABSOLUTE COUNT (BEAKER) (test utlq=932) 0.27 K/ L 0.24-0.36 EOSINOPHILS ABSOLUTE COUNT (BEAKER) (test 0.00 K/ L 0.04-0.36 ijrr=842) BASOPHILS ABSOLUTE COUNT (BEAKER) (test vmhw=163) 0.01 K/ L 0.01-0.08 IMMATURE GRANULOCYTES-RELATIVE PERCENT (BEAKER) 0 % 0-1 (test qkpl=5316) BASIC METABOLIC [id number] 07:21:00 Test Item Value Reference Range Comments SODIUM (BEAKER) (test 135 meq/L 136-145 vpyu=858) POTASSIUM (BEAKER) (test 4.1 meq/L 3.5-5.1 efjj=639) CHLORIDE (BEAKER) (test 102 meq/L 98-107 blee=572) CO2 (BEAKER) (test 24 meq/L 22-29 pklc=732) BLOOD UREA NITROGEN 45 mg/dL 7-21 (BEAKER) (test uqhn=056) CREATININE (BEAKER) (test 4.55 mg/dL 0.57-1.25 fqhh=139) GLUCOSE RANDOM (BEAKER) 106 mg/dL 70-105 (test tcft=128) CALCIUM (BEAKER) (test 7.8 mg/dL 8.4-10.2 xecw=333) EGFR (BEAKER) (test 10 mL/min/1.73 sq m ESTIMATED GFR IS NOT qgey=8586) ACCURATE CREATININE CLEARANCE IN PREDICTING GLOMERULAR FILTRATION RATE. ESTIMATED GFR IS NOT APPLICABLE FOR DIALYSIS PATIENTS. [id number] 07:08:00 Test Item Value Reference Range Comments MAGNESIUM (BEAKER) (test egju=912) 1.8 mg/dL 1.6-2.6 CBC W/PLT COUNT & AUTO [id number] 06:53:00 Test Item Value Reference Range Comments WHITE BLOOD CELL COUNT (BEAKER) (test ndai=567) 2.9 K/ L 3.5-10.5 RED BLOOD CELL COUNT (BEAKER) (test rtau=455) 2.45 M/ L 3.93-5.22 HEMOGLOBIN (BEAKER) (test jvhv=744) 8.0 GM/DL 11.2-15.7 HEMATOCRIT (BEAKER) (test uqfv=166) 25.1 % 34.1-44.9 MEAN CORPUSCULAR VOLUME (BEAKER) (test topk=454) 102.4 fL 79.4-94.8 MEAN CORPUSCULAR HEMOGLOBIN (BEAKER) (test 32.7 pg 25.6-32.2 ndpt=734) MEAN CORPUSCULAR HEMOGLOBIN CONC (BEAKER) (test 31.9 GM/DL 32.2-35.5 ukbc=905) RED CELL DISTRIBUTION WIDTH (BEAKER) (test 19.7 % 11.7-14.4 jpos=821) PLATELET COUNT (BEAKER) (test qtnh=349) 41 K/CU MM 150-450 MEAN PLATELET VOLUME (BEAKER) (test eqhw=798) 11.7 fL 9.4-12.3 NUCLEATED RED BLOOD CELLS (BEAKER) (test 0 /100 WBC 0-0 gdro=520) NEUTROPHILS RELATIVE PERCENT (BEAKER) (test 75 % fhaa=540) LYMPHOCYTES RELATIVE PERCENT (BEAKER) (test 13 % weqo=474) MONOCYTES RELATIVE PERCENT (BEAKER) (test 11 % duou=168) EOSINOPHILS RELATIVE PERCENT (BEAKER) (test 0 % qfwu=378) BASOPHILS RELATIVE PERCENT (BEAKER) (test 0 % anpu=597) NEUTROPHILS ABSOLUTE COUNT (BEAKER) (test 2.13 K/ L 1.56-6.13 txey=736) LYMPHOCYTES ABSOLUTE COUNT (BEAKER) (test 0.38 K/ L 1.18-3.74 vuym=153) MONOCYTES ABSOLUTE COUNT (BEAKER) (test wjiv=936) 0.32 K/ L 0.24-0.36 EOSINOPHILS ABSOLUTE COUNT (BEAKER) (test 0.01 K/ L 0.04-0.36 esow=092) BASOPHILS ABSOLUTE COUNT (BEAKER) (test perj=695) 0.01 K/ L 0.01-0.08 IMMATURE GRANULOCYTES-RELATIVE PERCENT (BEAKER) 0 % 0-1 (test iwvp=1413) RAD, CHEST, 1 VIEW, NON [id number] 22:19:00Reason for exam:-> pneumoniaShould this be performed [...] MDReport Verified Date/Time: 03/28/2018 22:19:58 Reading Location: [address] Reading Room [id number] 05:56: 00 Test Item Value Reference Range Comments MAGNESIUM (BEAKER) (test fyqj=730) 1.9 mg/dL 1.6-2.6 COMPREHENSIVE METABOLIC [id number] 03:24:00 Test Item Value Reference Range Comments TOTAL PROTEIN (BEAKER) 5.9 gm/dL 6.0-8.3 (test bwpl=588) ALBUMIN (BEAKER) (test 2.5 g/dL 3.5-5.0 ubvp=7250) ALKALINE PHOSPHATASE 42 U/L 40-150 (BEAKER) (test arus=081) BILIRUBIN TOTAL (BEAKER) 1.0 mg/dL 0.2-1.2 (test lqkc=424) SODIUM (BEAKER) (test 135 meq/L 136-145 wlge=559) POTASSIUM (BEAKER) (test 4.1 meq/L 3.5-5.1 gxrj=547) CHLORIDE (BEAKER) (test 102 meq/L 98-107 trwj=953) CO2 (BEAKER) (test 26 meq/L 22-29 inpe=755) BLOOD UREA NITROGEN 24 mg/dL 7-21 (BEAKER) (test yvkw=469) CREATININE (BEAKER) (test 3.02 mg/dL 0.57-1.25 wjpi=015) GLUCOSE RANDOM (BEAKER) 121 mg/dL 70-105 (test onbc=179) CALCIUM (BEAKER) (test 8.2 mg/dL 8.4-10.2 wcko=885) AST (SGOT) (BEAKER) (test 35 U/L 5-34 julu=664) ALT (SGPT) (BEAKER) (test 13 U/L 6-55 geqa=384) EGFR (BEAKER) (test 16 mL/min/1.73 sq m ESTIMATED GFR IS NOT dpib=9211) ACCURATE CREATININE CLEARANCE IN PREDICTING GLOMERULAR FILTRATION RATE. ESTIMATED GFR IS NOT APPLICABLE FOR DIALYSIS PATIENTS. LACTIC ACID, VENOUS, WHOLE [id number] 03:15:00 Test Item Value Reference Range Comments LACTATE BLOOD VENOUS (2) (BEAKER) (test 1.1 mmol/L 0.5-2.2 mghg=6995) Effective 11/28/2015: Units/Reference Range ChangeNew: 0.5-2.2 mmol/L Previous: 5 -20 mg/dLCBC W/PLT COUNT & AUTO [id number] 02:57:00 Test Item Value Reference Range Comments WHITE BLOOD CELL COUNT (BEAKER) (test ecsy=175) 2.7 K/ L 3.5-10.5 RED BLOOD CELL COUNT (BEAKER) (test azlp=297) 2.45 M/ L 3.93-5.22 HEMOGLOBIN (BEAKER) (test lqfx=751) 8.0 GM/DL 11.2-15.7 HEMATOCRIT (BEAKER) (test ehzd=335) 24.9 % 34.1-44.9 MEAN CORPUSCULAR VOLUME (BEAKER) (test zjkm=472) 101.6 fL 79.4-94.8 MEAN CORPUSCULAR HEMOGLOBIN (BEAKER) (test 32.7 pg 25.6-32.2 vjhq=445) MEAN CORPUSCULAR HEMOGLOBIN CONC (BEAKER) (test 32.1 GM/DL 32.2-35.5 qdkr=678) RED CELL DISTRIBUTION WIDTH (BEAKER) (test 20.7 % 11.7-14.4 leum=989) PLATELET COUNT (BEAKER) (test uloc=492) 44 K/CU MM 150-450 MEAN PLATELET VOLUME (BEAKER) (test wmfr=721) 11.9 fL 9.4-12.3 NUCLEATED RED BLOOD CELLS (BEAKER) (test 0 /100 WBC 0-0 nkoa=607) NEUTROPHILS RELATIVE PERCENT (BEAKER) (test 75 % ahrt=615) LYMPHOCYTES RELATIVE PERCENT (BEAKER) (test 12 % svei=226) MONOCYTES RELATIVE PERCENT (BEAKER) (test 12 % paub=714) EOSINOPHILS RELATIVE PERCENT (BEAKER) (test 0 % rlxn=869) BASOPHILS RELATIVE PERCENT (BEAKER) (test 0 % mcpd=459) NEUTROPHILS ABSOLUTE COUNT (BEAKER) (test 2.05 K/ L 1.56-6.13 skwn=107) LYMPHOCYTES ABSOLUTE COUNT (BEAKER) (test 0.32 K/ L 1.18-3.74 ehjl=321) MONOCYTES ABSOLUTE COUNT (BEAKER) (test sdxo=817) 0.34 K/ L 0.24-0.36 EOSINOPHILS ABSOLUTE COUNT (BEAKER) (test 0.01 K/ L 0.04-0.36 svzw=307) BASOPHILS ABSOLUTE COUNT (BEAKER) (test xgpv=583) 0.01 K/ L 0.01-0.08 IMMATURE GRANULOCYTES-RELATIVE PERCENT (BEAKER) 0 % 0-1 (test cble=6748) POCT-GLUCOSE [id number] 02:55:00 Test Item Value Reference Range Comments POC-GLUCOSE METER (BEAKER) 148 mg/dL 70-110 TESTED AT [facility] [address] [place] [address] (test iulo=9164) [facility] [address] BASIC METABOLIC [id number] 06:29:00 Test Item Value Reference Range Comments SODIUM (BEAKER) (test 129 meq/L 136-145 skme=651) POTASSIUM (BEAKER) (test 3.5 meq/L 3.5-5.1 mshq=486) CHLORIDE (BEAKER) (test 97 meq/L 98-107 alyw=884) CO2 (BEAKER) (test 25 meq/L 22-29 mvuc=902) BLOOD UREA NITROGEN 44 mg/dL 7-21 (BEAKER) (test nhit=483) CREATININE (BEAKER) (test 4.23 mg/dL 0.57-1.25 kpvp=745) GLUCOSE RANDOM (BEAKER) 118 mg/dL 70-105 (test eara=868) CALCIUM (BEAKER) (test 7.0 mg/dL 8.4-10.2 vyia=396) EGFR (BEAKER) (test 11 mL/min/1.73 sq m ESTIMATED GFR IS NOT dnif=2120) ACCURATE CREATININE CLEARANCE IN PREDICTING GLOMERULAR FILTRATION RATE. ESTIMATED GFR IS NOT APPLICABLE FOR DIALYSIS PATIENTS. [id number] 06:27:00 Test Item Value Reference Range Comments MAGNESIUM (BEAKER) (test zvto=520) 1.8 mg/dL 1.6-2.6 CBC W/PLT COUNT & AUTO [id number] 06:09:00 Test Item Value Reference Range Comments WHITE BLOOD CELL COUNT (BEAKER) (test hzvp=286) 3.1 K/ L 3.5-10.5 RED BLOOD CELL COUNT (BEAKER) (test bpru=550) 1.93 M/ L 3.93-5.22 HEMOGLOBIN (BEAKER) (test ntbb=902) 6.4 GM/DL 11.2-15.7 HEMATOCRIT (BEAKER) (test ixeo=643) 20.6 % 34.1-44.9 MEAN CORPUSCULAR VOLUME (BEAKER) (test vfxg=229) 106.7 fL 79.4-94.8 MEAN CORPUSCULAR HEMOGLOBIN (BEAKER) (test 33.2 pg 25.6-32.2 mkmd=238) MEAN CORPUSCULAR HEMOGLOBIN CONC (BEAKER) (test 31.1 GM/DL 32.2-35.5 oqem=146) RED CELL DISTRIBUTION WIDTH (BEAKER) (test 20.5 % 11.7-14.4 oecq=347) PLATELET COUNT (BEAKER) (test tjaq=029) 48 K/CU MM 150-450 MEAN PLATELET VOLUME (BEAKER) (test stos=138) 12.1 fL 9.4-12.3 NUCLEATED RED BLOOD CELLS (BEAKER) (test 0 /100 WBC 0-0 hdgm=645) NEUTROPHILS RELATIVE PERCENT (BEAKER) (test 77 % egxx=661) LYMPHOCYTES RELATIVE PERCENT (BEAKER) (test 9 % wbth=328) MONOCYTES RELATIVE PERCENT (BEAKER) (test 13 % yhik=817) EOSINOPHILS RELATIVE PERCENT (BEAKER) (test 0 % gjye=725) BASOPHILS RELATIVE PERCENT (BEAKER) (test 0 % hxvk=917) NEUTROPHILS ABSOLUTE COUNT (BEAKER) (test 2.42 K/ L 1.56-6.13 plzk=026) LYMPHOCYTES ABSOLUTE COUNT (BEAKER) (test 0.27 K/ L 1.18-3.74 pdjg=863) MONOCYTES ABSOLUTE COUNT (BEAKER) (test ilmh=931) 0.39 K/ L 0.24-0.36 EOSINOPHILS ABSOLUTE COUNT (BEAKER) (test 0.01 K/ L 0.04-0.36 clol=260) BASOPHILS ABSOLUTE COUNT (BEAKER) (test dlmt=324) 0.01 K/ L 0.01-0.08 IMMATURE GRANULOCYTES-RELATIVE PERCENT (BEAKER) 1 % 0-1 (test efpe=2081) RAD, SHOULDER, COMPLETE (MIN 2 VIEWS), [id number] 17:48:00Reason for exam:-& gt;r/o FxShould this be [...] Torreseport Verified Date/Time: 03/26/2018 17:48:06 Reading Location: [facility] Radiology Reading [facility] METABOLIC [id number] 07:10:00 Test Item Value Reference Range Comments SODIUM (BEAKER) (test 133 meq/L 136-145 fgsq=207) POTASSIUM (BEAKER) (test 3.6 meq/L 3.5-5.1 ybmh=398) CHLORIDE (BEAKER) (test 101 meq/L 98-107 psje=417) CO2 (BEAKER) (test 24 meq/L 22-29 nkqf=504) BLOOD UREA NITROGEN 26 mg/dL 7-21 (BEAKER) (test aqiz=179) CREATININE (BEAKER) (test 2.73 mg/dL 0.57-1.25 ijfj=869) GLUCOSE RANDOM (BEAKER) 117 mg/dL 70-105 (test suok=022) CALCIUM (BEAKER) (test 7.5 mg/dL 8.4-10.2 rjlf=527) EGFR (BEAKER) (test 18 mL/min/1.73 sq m ESTIMATED GFR IS NOT bwtm=7091) ACCURATE CREATININE CLEARANCE IN PREDICTING GLOMERULAR FILTRATION RATE. ESTIMATED GFR IS NOT APPLICABLE FOR DIALYSIS PATIENTS. [id number] 07:08:00 Test Item Value Reference Range Comments MAGNESIUM (BEAKER) (test qblz=326) 1.9 mg/dL 1.6-2.6 CBC W/PLT COUNT & AUTO [id number] 06:34:00 Test Item Value Reference Range Comments WHITE BLOOD CELL COUNT (BEAKER) (test wixy=420) 3.1 K/ L 3.5-10.5 RED BLOOD CELL COUNT (BEAKER) (test cyfn=193) 2.18 M/ L 3.93-5.22 HEMOGLOBIN (BEAKER) (test tjqu=959) 7.2 GM/DL 11.2-15.7 HEMATOCRIT (BEAKER) (test jnmm=552) 23.1 % 34.1-44.9 MEAN CORPUSCULAR VOLUME (BEAKER) (test yuzw=276) 106.0 fL 79.4-94.8 MEAN CORPUSCULAR HEMOGLOBIN (BEAKER) (test 33.0 pg 25.6-32.2 tpam=331) MEAN CORPUSCULAR HEMOGLOBIN CONC (BEAKER) (test 31.2 GM/DL 32.2-35.5 jhac=509) RED CELL DISTRIBUTION WIDTH (BEAKER) (test 21.7 % 11.7-14.4 gxwv=724) PLATELET COUNT (BEAKER) (test ezlu=981) 45 K/CU MM 150-450 MEAN PLATELET VOLUME (BEAKER) (test tgam=300) 11.8 fL 9.4-12.3 NUCLEATED RED BLOOD CELLS (BEAKER) (test 0 /100 WBC 0-0 uglk=463) NEUTROPHILS RELATIVE PERCENT (BEAKER) (test 83 % nesm=747) LYMPHOCYTES RELATIVE PERCENT (BEAKER) (test 7 % rise=859) MONOCYTES RELATIVE PERCENT (BEAKER) (test 10 % wcqu=010) EOSINOPHILS RELATIVE PERCENT (BEAKER) (test 0 % yifx=279) BASOPHILS RELATIVE PERCENT (BEAKER) (test 0 % jxwu=266) NEUTROPHILS ABSOLUTE COUNT (BEAKER) (test 2.55 K/ L 1.56-6.13 xynh=609) LYMPHOCYTES ABSOLUTE COUNT (BEAKER) (test 0.20 K/ L 1.18-3.74 irru=458) MONOCYTES ABSOLUTE COUNT (BEAKER) (test ysjs=348) 0.31 K/ L 0.24-0.36 EOSINOPHILS ABSOLUTE COUNT (BEAKER) (test 0.00 K/ L 0.04-0.36 ijlt=077) BASOPHILS ABSOLUTE COUNT (BEAKER) (test vjrf=536) 0.01 K/ L 0.01-0.08 IMMATURE GRANULOCYTES-RELATIVE PERCENT (BEAKER) 1 % 0-1 (test wqxw=3173) CT, [id number] 02:57:00R/o retroperitoneal hematoma s/p kidney bxFINAL REPORT [...] MDReport Verified Date/Time: 03/26/2018 02:57:14 Reading Location: [facility] [id number] Transitional Reading Room Electronically signed by: KELLEE ISLAS MD on 2017 02:57 AMLACTATE DEHYDROGENASE (LDH)2018-03-25 14:50:00 Test Item Value Reference Range Comments LACTATE DEHYDROGENASE (BEAKER) (test mggy=858) 722 U/L 125-220 PERIPHERAL BLOOD SMEAR - HOLD [id number] 14:37:00 Test Item Value Reference Range Comments PERIPHERAL SMEAR SAVE (BEAKER) (test ionc=0039) saved BASIC METABOLIC [id number] 07:08:00 Test Item Value Reference Range Comments SODIUM (BEAKER) (test 127 meq/L 136-145 yvuj=642) POTASSIUM (BEAKER) (test 4.3 meq/L 3.5-5.1 zyhu=760) CHLORIDE (BEAKER) (test 94 meq/L 98-107 ipmr=941) CO2 (BEAKER) (test 23 meq/L 22-29 ykau=357) BLOOD UREA NITROGEN 56 mg/dL 7-21 (BEAKER) (test ompg=740) CREATININE (BEAKER) (test 4.30 mg/dL 0.57-1.25 vjex=353) GLUCOSE RANDOM (BEAKER) 110 mg/dL 70-105 (test hfuc=202) CALCIUM (BEAKER) (test 6.4 mg/dL 8.4-10.2 yflm=825) EGFR (BEAKER) (test 11 mL/min/1.73 sq m ESTIMATED GFR IS NOT cekr=0601) ACCURATE CREATININE CLEARANCE IN PREDICTING GLOMERULAR FILTRATION RATE. ESTIMATED GFR IS NOT APPLICABLE FOR DIALYSIS PATIENTS. [id number] 07:04:00 Test Item Value Reference Range Comments MAGNESIUM (BEAKER) (test lsdw=289) 1.9 mg/dL 1.6-2.6 CBC W/PLT COUNT & AUTO [id number] 06:27:00 Test Item Value Reference Range Comments WHITE BLOOD CELL COUNT (BEAKER) (test ffxk=315) 5.3 K/ L 3.5-10.5 RED BLOOD CELL COUNT (BEAKER) (test jcld=865) 2.39 M/ L 3.93-5.22 HEMOGLOBIN (BEAKER) (test ofvg=352) 7.9 GM/DL 11.2-15.7 HEMATOCRIT (BEAKER) (test fnbp=016) 25.0 % 34.1-44.9 MEAN CORPUSCULAR VOLUME (BEAKER) (test iwkd=646) 104.6 fL 79.4-94.8 MEAN CORPUSCULAR HEMOGLOBIN (BEAKER) (test 33.1 pg 25.6-32.2 lvez=783) MEAN CORPUSCULAR HEMOGLOBIN CONC (BEAKER) (test 31.6 GM/DL 32.2-35.5 zlgl=083) RED CELL DISTRIBUTION WIDTH (BEAKER) (test 22.2 % 11.7-14.4 hfej=113) PLATELET COUNT (BEAKER) (test lmvb=484) 60 K/CU MM 150-450 MEAN PLATELET VOLUME (BEAKER) (test tctg=082) 12.7 fL 9.4-12.3 NUCLEATED RED BLOOD CELLS (BEAKER) (test 0 /100 WBC 0-0 ylcz=629) NEUTROPHILS RELATIVE PERCENT (BEAKER) (test 85 % aqoz=739) LYMPHOCYTES RELATIVE PERCENT (BEAKER) (test 6 % trfr=467) MONOCYTES RELATIVE PERCENT (BEAKER) (test 9 % tuac=049) EOSINOPHILS RELATIVE PERCENT (BEAKER) (test 0 % rysl=690) BASOPHILS RELATIVE PERCENT (BEAKER) (test 0 % zbtg=127) NEUTROPHILS ABSOLUTE COUNT (BEAKER) (test 4.50 K/ L 1.56-6.13 ejbt=784) LYMPHOCYTES ABSOLUTE COUNT (BEAKER) (test 0.30 K/ L 1.18-3.74 teza=194) MONOCYTES ABSOLUTE COUNT (BEAKER) (test psen=708) 0.46 K/ L 0.24-0.36 EOSINOPHILS ABSOLUTE COUNT (BEAKER) (test 0.01 K/ L 0.04-0.36 cvsc=225) BASOPHILS ABSOLUTE COUNT (BEAKER) (test xayo=400) 0.01 K/ L 0.01-0.08 IMMATURE GRANULOCYTES-RELATIVE PERCENT ([facility]) 1 % 0-1 (test khpg=5962) HEPATITIS B [id number] 13:58:00 Test Item Value Reference Range Comments HEPATITIS B CORE TOTAL Nonreactive Nonreactive ANTIBODY (ADDY) (test knuj=775) HEPATITIS B SURFACE ANTIBODY 133.0 mIU/mL <8.0 Testing performed at [facility] ([facility]) (test kivy=781) Diagnostic Laboratory.See attach result for further interpretation. HEPATITIS B SURFACE ANTIGEN Nonreactive Nonreactive (2) ([facility]) (test kihe=9769) U/S, BIOPSY, RENAL (KIDNEY)2018-03-24 12:59:00Reason for exam:->Acute [...] MDReport Verified Date/Time: 03/24 12:59:37 Reading Location: [facility] [id number] Ultrasound Reading Room BONE MARROW [id number] 11:03:00Bone Marrow Pathology Report Case: [id number] Authorizing Provider: Jordan Sultana MD Collected: 03/17/2018 1457 Ordering Location : [address] Med/Surg Received: 03/17/2018 0013 Pathologist: Doug Lee MD Specimens: A) - [...] NORMOCYTIC ANEMIA-THROMBOCYTOPENIA Signing Pathologist Direct Phone Line: [phone] signed by Doug Lee MD on 03/23/2018 [...] leukemia or metastatic disease. The corresponding flow cytometry([id number]) of the aspirate did not demonstrate evidence of an aberrant B or T lymphocyte process and no increase in blasts. Overall, the stromal changes, dyspoiesis and activated macrophages can be seen with chemotherapy effect. No evidence of a neoplastic process is identified. Clinical correlation is recommend. Oncologic chromosomal studies are pending and the results will be submitted as an addendum when available. 19480; 20639; 22106 x 2; 01274; [id number] x 1; 65725 [id number] malignant neoplasm of breast with metastasis to [...] clusters. CD61: Highlights megakaryocytes which appear mildly [id number]: Demonstrates slightly more progenitor cells then CD34 [...] developed and its performance characteristics determined by [facility]. It has not been [...] 5.2, CD3, CD20, CD34, CD61, CD117, CD138, [place], [place]ambda , E-Cadherin.CBC W/PLT COUNT & AUTO [id number] 06:18:00 Test Item Value Reference Range Comments WHITE BLOOD CELL COUNT (BEAKER) (test pnhv=643) 5.0 K/ L 3.5-10.5 RED BLOOD CELL COUNT (BEAKER) (test vhna=116) 2.77 M/ L 3.93-5.22 HEMOGLOBIN (BEAKER) (test qnnn=166) 9.0 GM/DL 11.2-15.7 HEMATOCRIT (BEAKER) (test fbby=155) 29.8 % 34.1-44.9 MEAN CORPUSCULAR VOLUME (BEAKER) (test dvcl=447) 107.6 fL 79.4-94.8 MEAN CORPUSCULAR HEMOGLOBIN (BEAKER) (test 32.5 pg 25.6-32.2 qjji=532) MEAN CORPUSCULAR HEMOGLOBIN CONC (BEAKER) (test 30.2 GM/DL 32.2-35.5 dpgs=000) RED CELL DISTRIBUTION WIDTH (BEAKER) (test 23.6 % 11.7-14.4 qclr=052) PLATELET COUNT (BEAKER) (test bapb=647) 61 K/CU MM 150-450 MEAN PLATELET VOLUME (BEAKER) (test uxum=014) 11.2 fL 9.4-12.3 NUCLEATED RED BLOOD CELLS (BEAKER) (test 0 /100 WBC 0-0 twnl=575) NEUTROPHILS RELATIVE PERCENT (BEAKER) (test 82 % djcd=799) LYMPHOCYTES RELATIVE PERCENT (BEAKER) (test 7 % bnyi=750) MONOCYTES RELATIVE PERCENT (BEAKER) (test 10 % urvx=969) EOSINOPHILS RELATIVE PERCENT (BEAKER) (test 0 % awuh=712) BASOPHILS RELATIVE PERCENT (BEAKER) (test 0 % bats=146) NEUTROPHILS ABSOLUTE COUNT (BEAKER) (test 4.14 K/ L 1.56-6.13 klko=071) LYMPHOCYTES ABSOLUTE COUNT (BEAKER) (test 0.35 K/ L 1.18-3.74 nlym=211) MONOCYTES ABSOLUTE COUNT (BEAKER) (test znul=820) 0.49 K/ L 0.24-0.36 EOSINOPHILS ABSOLUTE COUNT (BEAKER) (test 0.02 K/ L 0.04-0.36 nuis=559) BASOPHILS ABSOLUTE COUNT (BEAKER) (test yhkk=937) 0.01 K/ L 0.01-0.08 IMMATURE GRANULOCYTES-RELATIVE PERCENT (BEAKER) 0 % 0-1 (test owyf=6594) BASIC METABOLIC [id number] 05:46:00 Test Item Value Reference Range Comments SODIUM (BEAKER) (test 129 meq/L 136-145 maiu=109) POTASSIUM (BEAKER) (test 3.9 meq/L 3.5-5.1 klwp=329) CHLORIDE (BEAKER) (test 98 meq/L 98-107 pahw=428) CO2 (BEAKER) (test 22 meq/L 22-29 rjyc=629) BLOOD UREA NITROGEN 42 mg/dL 7-21 (BEAKER) (test kfuk=834) CREATININE (BEAKER) (test 3.25 mg/dL 0.57-1.25 pphs=019) GLUCOSE RANDOM (BEAKER) 101 mg/dL 70-105 (test zgke=979) CALCIUM (BEAKER) (test 7.0 mg/dL 8.4-10.2 wrak=826) EGFR (BEAKER) (test 15 mL/min/1.73 sq m ESTIMATED GFR IS NOT pgfn=0761) ACCURATE CREATININE CLEARANCE IN PREDICTING GLOMERULAR FILTRATION RATE. ESTIMATED GFR IS NOT APPLICABLE FOR DIALYSIS PATIENTS. [id number] 05:40:00 Test Item Value Reference Range Comments MAGNESIUM (BEAKER) (test 2.1 mg/dL 1.6-2.6 Specimen slightly hemolyzed atnx=336) BASIC METABOLIC [id number] 23:13:00 Test Item Value Reference Range Comments SODIUM (BEAKER) (test 133 meq/L 136-145 wulv=183) POTASSIUM (BEAKER) (test 3.6 meq/L 3.5-5.1 twcy=874) CHLORIDE (BEAKER) (test 98 meq/L 98-107 nuhl=311) CO2 (BEAKER) (test 26 meq/L 22-29 kuxs=850) BLOOD UREA NITROGEN 42 mg/dL 7-21 (BEAKER) (test qnvb=744) CREATININE (BEAKER) (test 3.20 mg/dL 0.57-1.25 kumv=547) GLUCOSE RANDOM (BEAKER) 113 mg/dL 70-105 (test bxyt=082) CALCIUM (BEAKER) (test 6.9 mg/dL 8.4-10.2 edjm=463) EGFR (BEAKER) (test 15 mL/min/1.73 sq m ESTIMATED GFR IS NOT fccf=5484) ACCURATE CREATININE CLEARANCE IN PREDICTING GLOMERULAR FILTRATION RATE. ESTIMATED GFR IS NOT APPLICABLE FOR DIALYSIS PATIENTS. BASIC METABOLIC [id number] 18:45:00 Test Item Value Reference Range Comments SODIUM (BEAKER) (test 134 meq/L 136-145 plbv=279) POTASSIUM (BEAKER) (test 3.8 meq/L 3.5-5.1 tfxw=539) CHLORIDE (BEAKER) (test 100 meq/L 98-107 obcg=016) CO2 (BEAKER) (test 25 meq/L 22-29 wfyy=987) BLOOD UREA NITROGEN 37 mg/dL 7-21 (BEAKER) (test aszk=665) CREATININE (BEAKER) (test 2.98 mg/dL 0.57-1.25 iwlu=091) GLUCOSE RANDOM (BEAKER) 131 mg/dL 70-105 (test eupb=113) CALCIUM (BEAKER) (test 7.3 mg/dL 8.4-10.2 lsqi=943) EGFR (BEAKER) (test 16 mL/min/1.73 sq m ESTIMATED GFR IS NOT ophv=5766) ACCURATE CREATININE CLEARANCE IN PREDICTING GLOMERULAR FILTRATION RATE. ESTIMATED GFR IS NOT APPLICABLE FOR DIALYSIS PATIENTS. POCT-GLUCOSE [id number] 10:29:00 Test Item Value Reference Range Comments POC-GLUCOSE METER (BEAKER) 93 mg/dL 70-110 TESTED AT [facility] [address] [facility] (test vwnh=3490) [facility] [id number] BASIC METABOLIC [id number] 07:02:00 Test Item Value Reference Range Comments SODIUM (BEAKER) (test 133 meq/L 136-145 mlxy=430) POTASSIUM (BEAKER) (test 3.7 meq/L 3.5-5.1 kssy=422) CHLORIDE (BEAKER) (test 97 meq/L 98-107 ayvt=607) CO2 (BEAKER) (test 25 meq/L 22-29 sxij=693) BLOOD UREA NITROGEN 70 mg/dL 7-21 (BEAKER) (test eoah=769) CREATININE (BEAKER) (test 4.25 mg/dL 0.57-1.25 adla=891) GLUCOSE RANDOM (BEAKER) 93 mg/dL 70-105 (test lace=448) CALCIUM (BEAKER) (test 7.2 mg/dL 8.4-10.2 kgil=136) EGFR (BEAKER) (test 11 mL/min/1.73 sq m ESTIMATED GFR IS NOT uhpa=8005) ACCURATE CREATININE CLEARANCE IN PREDICTING GLOMERULAR FILTRATION RATE. ESTIMATED GFR IS NOT APPLICABLE FOR DIALYSIS PATIENTS. [id number] 07:01:00 Test Item Value Reference Range Comments MAGNESIUM (BEAKER) (test eyax=556) 2.2 mg/dL 1.6-2.6 CBC W/PLT COUNT & AUTO [id number] 06:36:00 Test Item Value Reference Range Comments WHITE BLOOD CELL COUNT (BEAKER) (test lokv=753) 6.2 K/ L 3.5-10.5 RED BLOOD CELL COUNT (BEAKER) (test mlgw=909) 2.89 M/ L 3.93-5.22 HEMOGLOBIN (BEAKER) (test oujj=834) 9.5 GM/DL 11.2-15.7 HEMATOCRIT (BEAKER) (test etwt=616) 31.1 % 34.1-44.9 MEAN CORPUSCULAR VOLUME (BEAKER) (test ifhy=147) 107.6 fL 79.4-94.8 MEAN CORPUSCULAR HEMOGLOBIN (BEAKER) (test 32.9 pg 25.6-32.2 xfei=388) MEAN CORPUSCULAR HEMOGLOBIN CONC (BEAKER) (test 30.5 GM/DL 32.2-35.5 hkaz=127) RED CELL DISTRIBUTION WIDTH (BEAKER) (test 24.9 % 11.7-14.4 ghlq=685) PLATELET COUNT (BEAKER) (test bten=936) 73 K/CU MM 150-450 MEAN PLATELET VOLUME (BEAKER) (test vall=561) 13.4 fL 9.4-12.3 NUCLEATED RED BLOOD CELLS (BEAKER) (test 0 /100 WBC 0-0 pzad=821) NEUTROPHILS RELATIVE PERCENT (BEAKER) (test 87 % jtkl=904) LYMPHOCYTES RELATIVE PERCENT (BEAKER) (test 5 % kxrw=605) MONOCYTES RELATIVE PERCENT (BEAKER) (test 7 % mruy=848) EOSINOPHILS RELATIVE PERCENT (BEAKER) (test 0 % mflj=642) BASOPHILS RELATIVE PERCENT (BEAKER) (test 0 % mpcr=244) NEUTROPHILS ABSOLUTE COUNT (BEAKER) (test 5.36 K/ L 1.56-6.13 pvec=857) LYMPHOCYTES ABSOLUTE COUNT (BEAKER) (test 0.31 K/ L 1.18-3.74 txau=475) MONOCYTES ABSOLUTE COUNT (BEAKER) (test mnyx=815) 0.44 K/ L 0.24-0.36 EOSINOPHILS ABSOLUTE COUNT (BEAKER) (test 0.01 K/ L 0.04-0.36 rgod=026) BASOPHILS ABSOLUTE COUNT (BEAKER) (test ujck=375) 0.00 K/ L 0.01-0.08 IMMATURE GRANULOCYTES-RELATIVE PERCENT (BEAKER) 1 % 0-1 (test uumy=1746) [id number] 06:35:00 Test Item Value Reference Range Comments PROTIME (BEAKER) (test mzqf=160) 15.3 seconds 11.7-14.7 INR (BEAKER) (test mrao=261) 1.2 <=5.9 PARTIAL THROMBOPLASTIN TIME (BEAKER) (test 29.7 seconds 22.5-36.0 fhxm=749) RECOMMENDED COUMADIN/WARFARIN INR THERAPY RANGESSTANDARD DOSE: 2.0 - 3.0 Includes: PROPHYLAXIS forvenous thrombosis, systemic embolization; TREATMENT for venous thrombosis and/or pulmonary embolus.HIGH RISK: Target INR is 2.5-3.5 for patients with mechanical heart valves.[id number] 23:55:00 Test Item Value Reference Range Comments PHOSPHORUS (BEAKER) (test wjuo=022) 6.1 mg/dL 2.3-4.7 BASIC METABOLIC [id number] 23:55:00 Test Item Value Reference Range Comments SODIUM (BEAKER) (test 135 meq/L 136-145 rhqw=495) POTASSIUM (BEAKER) (test 3.6 meq/L 3.5-5.1 fzve=074) CHLORIDE (BEAKER) (test 97 meq/L 98-107 ciez=588) CO2 (BEAKER) (test 26 meq/L 22-29 wyfn=326) BLOOD UREA NITROGEN 63 mg/dL 7-21 (BEAKER) (test vmgf=645) CREATININE (BEAKER) (test 3.99 mg/dL 0.57-1.25 yttj=392) GLUCOSE RANDOM (BEAKER) 121 mg/dL 70-105 (test xjfw=089) CALCIUM (BEAKER) (test 7.2 mg/dL 8.4-10.2 lfhw=131) EGFR (BEAKER) (test 12 mL/min/1.73 sq m ESTIMATED GFR IS NOT fwjk=9779) ACCURATE CREATININE CLEARANCE IN PREDICTING GLOMERULAR FILTRATION RATE. ESTIMATED GFR IS NOT APPLICABLE FOR DIALYSIS PATIENTS. BASIC METABOLIC [id number] 17:30:00 Test Item Value Reference Range Comments SODIUM (BEAKER) (test 137 meq/L 136-145 qgmj=031) POTASSIUM (BEAKER) (test 3.7 meq/L 3.5-5.1 cgqx=596) CHLORIDE (BEAKER) (test 98 meq/L 98-107 bisf=173) CO2 (BEAKER) (test 27 meq/L 22-29 eypv=637) BLOOD UREA NITROGEN 53 mg/dL 7-21 (BEAKER) (test pvgc=355) CREATININE (BEAKER) (test 3.30 mg/dL 0.57-1.25 bcjq=010) GLUCOSE RANDOM (BEAKER) 105 mg/dL 70-105 (test hfmr=516) CALCIUM (BEAKER) (test 8.1 mg/dL 8.4-10.2 dake=719) EGFR (BEAKER) (test 15 mL/min/1.73 sq m ESTIMATED GFR IS NOT sqts=9257) ACCURATE CREATININE CLEARANCE IN PREDICTING GLOMERULAR FILTRATION RATE. ESTIMATED GFR IS NOT APPLICABLE FOR DIALYSIS PATIENTS. HEPATIC FUNCTION [id number] 17:26:00 Test Item Value Reference Range Comments TOTAL PROTEIN (BEAKER) (test nrxv=055) 6.7 gm/dL 6.0-8.3 ALBUMIN (BEAKER) (test enel=0541) 3.1 g/dL 3.5-5.0 BILIRUBIN TOTAL (BEAKER) (test yyvc=974) 1.6 mg/dL 0.2-1.2 BILIRUBIN DIRECT (BEAKER) (test eahu=559) 0.7 mg/dL 0.1-0.5 ALKALINE PHOSPHATASE (BEAKER) (test nyrn=441) 63 U/L 40-150 AST (SGOT) (BEAKER) (test qmgf=637) 48 U/L 5-34 ALT (SGPT) (BEAKER) (test gcxf=422) 24 U/L 6-55 BASIC METABOLIC [id number] 15:15:00 Test Item Value Reference Range Comments SODIUM (BEAKER) (test 134 meq/L 136-145 wbng=409) POTASSIUM (BEAKER) (test 4.1 meq/L 3.5-5.1 tlfl=355) CHLORIDE (BEAKER) (test 94 meq/L 98-107 jenc=419) CO2 (BEAKER) (test 23 meq/L 22-29 bgca=273) BLOOD UREA NITROGEN 112 mg/dL 7-21 (BEAKER) (test tihw=940) CREATININE (BEAKER) (test 5.93 mg/dL 0.57-1.25 nrpv=715) GLUCOSE RANDOM (BEAKER) 104 mg/dL 70-105 (test yjit=213) CALCIUM (BEAKER) (test 7.2 mg/dL 8.4-10.2 omwl=349) EGFR (BEAKER) (test 7 mL/min/1.73 sq m ESTIMATED GFR IS NOT agft=0225) ACCURATE CREATININE CLEARANCE IN PREDICTING GLOMERULAR FILTRATION RATE. ESTIMATED GFR IS NOT APPLICABLE FOR DIALYSIS PATIENTS. URINE IMMUNOFIXATION, [id number] 15:09:00 Test Item Value Reference Range Comments PROTEIN, URINE (BEAKER) (test 412 mg/dL 0-14 mrxh=1149) ALBUMIN URINE ELP (BEAKER) 56.3 % (test wghr=9807) GAMMA GLOBULIN URINE (BEAKER) 43.7 % (test ceew=8307) URINE JUDSON ID-[id number] (BEAKER) No monoclonal proteins or (test zxjv=1356) monoclonal free light chains detected. [id number] (BEAKER) Barbie Mccollum MD (test aaac=5066) (electronic signature) URINE PROTEIN ELECTROPHORESIS, [id number] 13:02:00 Test Item Value Reference Range Comments PROTEIN, URINE (BEAKER) (test 412 mg/dL 0-14 weuc=7906) ALBUMIN URINE ELP (BEAKER) 56.3 % (test lpdw=1671) GAMMA GLOBULIN URINE (BEAKER) 43.7 % (test jbhc=8458) UPEP, ID-438 (BEAKER) (test No monoclonal bands detected. bkeg=5899) [id number] (BEAKER) Barbie Mccollum MD (test vzse=4346) (electronic signature) [id number] 08:19:00 Test Item Value Reference Range Comments HAPTOGLOBIN (BEAKER) (test glcq=070) < mg/dL 14-258 BASIC METABOLIC [id number] 07:44:00 Test Item Value Reference Range Comments SODIUM (BEAKER) (test 133 meq/L 136-145 yffi=929) POTASSIUM (BEAKER) (test 4.4 meq/L 3.5-5.1 pxzv=311) CHLORIDE (BEAKER) (test 95 meq/L 98-107 ekyt=437) CO2 (BEAKER) (test 23 meq/L 22-29 axjf=745) BLOOD UREA NITROGEN 108 mg/dL 7-21 (BEAKER) (test tfjm=499) CREATININE (BEAKER) (test 5.79 mg/dL 0.57-1.25 naox=924) GLUCOSE RANDOM (BEAKER) 107 mg/dL 70-105 (test geee=683) CALCIUM (BEAKER) (test 7.4 mg/dL 8.4-10.2 oarc=807) EGFR (BEAKER) (test 8 mL/min/1.73 sq m ESTIMATED GFR IS NOT xfap=7765) ACCURATE CREATININE CLEARANCE IN PREDICTING GLOMERULAR FILTRATION RATE. ESTIMATED GFR IS NOT APPLICABLE FOR DIALYSIS PATIENTS. [id number] 07:29:00 Test Item Value Reference Range Comments MAGNESIUM (BEAKER) (test qmyb=998) 2.6 mg/dL 1.6-2.6 LACTATE DEHYDROGENASE (LDH)2018-03-22 07:29:00 Test Item Value Reference Range Comments LACTATE DEHYDROGENASE (BEAKER) (test niuv=769) 812 U/L 125-220 CBC W/PLT COUNT & AUTO [id number] 07:15:00 Test Item Value Reference Range Comments WHITE BLOOD CELL COUNT (BEAKER) (test plco=939) 5.5 K/ L 3.5-10.5 RED BLOOD CELL COUNT (BEAKER) (test hnhl=350) 2.90 M/ L 3.93-5.22 HEMOGLOBIN (BEAKER) (test enjv=364) 9.5 GM/DL 11.2-15.7 HEMATOCRIT (BEAKER) (test qmje=985) 30.7 % 34.1-44.9 MEAN CORPUSCULAR VOLUME (BEAKER) (test pmjx=055) 105.9 fL 79.4-94.8 MEAN CORPUSCULAR HEMOGLOBIN (BEAKER) (test 32.8 pg 25.6-32.2 hjhf=481) MEAN CORPUSCULAR HEMOGLOBIN CONC (BEAKER) (test 30.9 GM/DL 32.2-35.5 mrlz=427) RED CELL DISTRIBUTION WIDTH (BEAKER) (test 24.7 % 11.7-14.4 rhnn=081) PLATELET COUNT (BEAKER) (test pmyd=233) 56 K/CU MM 150-450 MEAN PLATELET VOLUME (BEAKER) (test hjdc=375) 11.6 fL 9.4-12.3 NUCLEATED RED BLOOD CELLS (BEAKER) (test 0 /100 WBC 0-0 mkcm=140) NEUTROPHILS RELATIVE PERCENT (BEAKER) (test 83 % chcg=285) LYMPHOCYTES RELATIVE PERCENT (BEAKER) (test 9 % rhpy=191) MONOCYTES RELATIVE PERCENT (BEAKER) (test 7 % vewv=695) EOSINOPHILS RELATIVE PERCENT (BEAKER) (test 0 % yrtz=774) BASOPHILS RELATIVE PERCENT (BEAKER) (test 0 % fusi=477) NEUTROPHILS ABSOLUTE COUNT (BEAKER) (test 4.58 K/ L 1.56-6.13 fcml=074) LYMPHOCYTES ABSOLUTE COUNT (BEAKER) (test 0.49 K/ L 1.18-3.74 wtgb=799) MONOCYTES ABSOLUTE COUNT (BEAKER) (test fpcy=734) 0.39 K/ L 0.24-0.36 EOSINOPHILS ABSOLUTE COUNT (BEAKER) (test 0.00 K/ L 0.04-0.36 ponz=715) BASOPHILS ABSOLUTE COUNT (BEAKER) (test gico=435) 0.01 K/ L 0.01-0.08 IMMATURE GRANULOCYTES-RELATIVE PERCENT (BEAKER) 1 % 0-1 (test wvzo=2404) RETICULOCYTE [id number] 07:08:00 Test Item Value Reference Range Comments RETICULOCYTE COUNT PCT (BEAKER) (test qvuu=158) 13.4 % 0.5-1.7 [id number] 07:07:00 Test Item Value Reference Range Comments PROTIME (BEAKER) (test qdjg=432) 16.2 seconds 11.7-14.7 INR (BEAKER) (test juyz=648) 1.3 <=5.9 PARTIAL THROMBOPLASTIN TIME (BEAKER) (test 31.2 seconds 22.5-36.0 qekd=488) RECOMMENDED COUMADIN/WARFARIN INR THERAPY RANGESSTANDARD DOSE: 2.0 - 3.0 Includes: PROPHYLAXIS forvenous thrombosis, systemic embolization; TREATMENT for venous thrombosis and/or pulmonary embolus.HIGH RISK: Target INR is 2.5-3.5 for patients with mechanical heart valves.PROTHROMBIN [id number] 07:06: 00 Test Item Value Reference Range Comments PROTIME (BEAKER) (test pxro=344) 16.2 seconds 11.7-14.7 INR (BEAKER) (test pxzt=121) 1.3 <=5.9 RECOMMENDED COUMADIN/WARFARIN INR THERAPY RANGESSTANDARD DOSE: 2.0 - 3.0 Includes: PROPHYLAXIS forvenous thrombosis, systemic embolization; TREATMENT for venous thrombosis and/or pulmonary embolus.HIGH RISK: Target INR is 2.5-3.5 for patients with mechanical heart valves.BASIC METABOLIC [id number] 22:18: 00 Test Item Value Reference Range Comments SODIUM (BEAKER) (test 132 meq/L 136-145 ltts=024) POTASSIUM (BEAKER) (test 4.7 meq/L 3.5-5.1 wojp=231) CHLORIDE (BEAKER) (test 95 meq/L 98-107 pteg=810) CO2 (BEAKER) (test 22 meq/L 22-29 faqb=985) BLOOD UREA NITROGEN 99 mg/dL 7-21 (BEAKER) (test ndjb=335) CREATININE (BEAKER) (test 5.57 mg/dL 0.57-1.25 qpyf=169) GLUCOSE RANDOM (BEAKER) 139 mg/dL 70-105 (test tkrt=372) CALCIUM (BEAKER) (test 7.3 mg/dL 8.4-10.2 oqrc=962) EGFR (BEAKER) (test 8 mL/min/1.73 sq m ESTIMATED GFR IS NOT pgan=3891) ACCURATE CREATININE CLEARANCE IN PREDICTING GLOMERULAR FILTRATION RATE. ESTIMATED GFR IS NOT APPLICABLE FOR DIALYSIS PATIENTS. RAD, CHEST, 1 VIEW, NON [id number] 18:54:00Reason for exam:->cough, chest congestionShould this be [...] MDReport Verified Date/Time: 03/21/2018 18:54:34 Reading Location: [facility] C013Y CT Body Reading Room [facility] METABOLIC [id number] 16:55:00 Test Item Value Reference Range Comments SODIUM (BEAKER) (test 135 meq/L 136-145 vnpf=513) POTASSIUM (BEAKER) (test 5.1 meq/L 3.5-5.1 mphg=340) CHLORIDE (BEAKER) (test 97 meq/L 98-107 qzsg=526) CO2 (BEAKER) (test 20 meq/L 22-29 jjng=070) BLOOD UREA NITROGEN 100 mg/dL 7-21 (BEAKER) (test zfhd=834) CREATININE (BEAKER) (test 5.45 mg/dL 0.57-1.25 lqwl=253) GLUCOSE RANDOM (BEAKER) 133 mg/dL 70-105 (test oiye=111) CALCIUM (BEAKER) (test 7.7 mg/dL 8.4-10.2 temh=992) EGFR (BEAKER) (test 8 mL/min/1.73 sq m ESTIMATED GFR IS NOT yjcj=7942) ACCURATE CREATININE CLEARANCE IN PREDICTING GLOMERULAR FILTRATION RATE. ESTIMATED GFR IS NOT APPLICABLE FOR DIALYSIS PATIENTS. BLOOD [id number] 13:00:00 Test Item Value Reference Range Comments CULTURE (BEAKER) (test trfx=7134) No growth in 5 days BASIC METABOLIC [id number] 12:42:00 Test Item Value Reference Range Comments SODIUM (BEAKER) (test 134 meq/L 136-145 hgqo=005) POTASSIUM (BEAKER) (test 4.7 meq/L 3.5-5.1 ubgv=902) CHLORIDE (BEAKER) (test 95 meq/L 98-107 nvcj=005) CO2 (BEAKER) (test 21 meq/L 22-29 omit=106) BLOOD UREA NITROGEN 97 mg/dL 7-21 (BEAKER) (test mmxm=783) CREATININE (BEAKER) (test 5.18 mg/dL 0.57-1.25 myio=990) GLUCOSE RANDOM (BEAKER) 121 mg/dL 70-105 (test omrs=552) CALCIUM (BEAKER) (test 7.9 mg/dL 8.4-10.2 qmpq=142) EGFR (BEAKER) (test 9 mL/min/1.73 sq m ESTIMATED GFR IS NOT dwri=7485) ACCURATE CREATININE CLEARANCE IN PREDICTING GLOMERULAR FILTRATION RATE. ESTIMATED GFR IS NOT APPLICABLE FOR DIALYSIS PATIENTS. BASIC METABOLIC [id number] 06:21:00 Test Item Value Reference Range Comments SODIUM (BEAKER) (test 133 meq/L 136-145 hagp=127) POTASSIUM (BEAKER) (test 4.6 meq/L 3.5-5.1 eriw=726) CHLORIDE (BEAKER) (test 97 meq/L 98-107 jbak=071) CO2 (BEAKER) (test 18 meq/L 22-29 rfyn=646) BLOOD UREA NITROGEN 89 mg/dL 7-21 (BEAKER) (test nwkn=153) CREATININE (BEAKER) (test 4.86 mg/dL 0.57-1.25 nktc=542) GLUCOSE RANDOM (BEAKER) 117 mg/dL 70-105 (test hevs=617) CALCIUM (BEAKER) (test 7.9 mg/dL 8.4-10.2 zbjp=592) EGFR (BEAKER) (test 9 mL/min/1.73 sq m ESTIMATED GFR IS NOT dvoe=0074) ACCURATE CREATININE CLEARANCE IN PREDICTING GLOMERULAR FILTRATION RATE. ESTIMATED GFR IS NOT APPLICABLE FOR DIALYSIS PATIENTS. [id number] 05:54:00 Test Item Value Reference Range Comments MAGNESIUM (BEAKER) (test xaqu=776) 2.4 mg/dL 1.6-2.6 CBC (HEMOGRAM ONLY)2018-03-21 05:23:00 Test Item Value Reference Range Comments WHITE BLOOD CELL COUNT (BEAKER) (test tgkf=460) 7.6 K/ L 3.5-10.5 RED BLOOD CELL COUNT (BEAKER) (test yqwb=836) 3.13 M/ L 3.93-5.22 HEMOGLOBIN (BEAKER) (test mpqb=124) 10.1 GM/DL 11.2-15.7 HEMATOCRIT (BEAKER) (test qweb=719) 32.1 % 34.1-44.9 MEAN CORPUSCULAR VOLUME (BEAKER) (test wqxp=719) 102.6 fL 79.4-94.8 MEAN CORPUSCULAR HEMOGLOBIN (BEAKER) (test 32.3 pg 25.6-32.2 vgdm=582) MEAN CORPUSCULAR HEMOGLOBIN CONC (BEAKER) (test 31.5 GM/DL 32.2-35.5 agcw=460) RED CELL DISTRIBUTION WIDTH (BEAKER) (test 24.0 % 11.7-14.4 eohi=124) PLATELET COUNT (BEAKER) (test tvks=510) 68 K/CU MM 150-450 MEAN PLATELET VOLUME (BEAKER) (test zwxu=350) 14.4 fL 9.4-12.3 NUCLEATED RED BLOOD CELLS (BEAKER) (test 1 /100 WBC 0-0 zpad=317) BASIC METABOLIC [id number] 00:47:00 Test Item Value Reference Range Comments SODIUM (BEAKER) (test 134 meq/L 136-145 wbim=500) POTASSIUM (BEAKER) (test 4.7 meq/L 3.5-5.1 vfco=116) CHLORIDE (BEAKER) (test 97 meq/L 98-107 hfjn=085) CO2 (BEAKER) (test 22 meq/L 22-29 jnic=422) BLOOD UREA NITROGEN 86 mg/dL 7-21 (BEAKER) (test zidp=349) CREATININE (BEAKER) (test 4.81 mg/dL 0.57-1.25 ntmj=388) GLUCOSE RANDOM (BEAKER) 115 mg/dL 70-105 (test apxt=253) CALCIUM (BEAKER) (test 7.9 mg/dL 8.4-10.2 pmnw=202) EGFR (BEAKER) (test 9 mL/min/1.73 sq m ESTIMATED GFR IS NOT jbgn=4199) ACCURATE CREATININE CLEARANCE IN PREDICTING GLOMERULAR FILTRATION RATE. ESTIMATED GFR IS NOT APPLICABLE FOR DIALYSIS PATIENTS. HEPATITIS C [id number] 13:26:00 Test Item Value Reference Range Comments HEPATITIS C ANTIBODY (BEAKER) (test epwe=116) Nonreactive Nonreactive BASIC METABOLIC [id number] 13:08:00 Test Item Value Reference Range Comments SODIUM (BEAKER) (test 133 meq/L 136-145 vklb=971) POTASSIUM (BEAKER) (test 5.0 meq/L 3.5-5.1 kmqx=982) CHLORIDE (BEAKER) (test 92 meq/L 98-107 sdyx=243) CO2 (BEAKER) (test 21 meq/L 22-29 dlao=218) BLOOD UREA NITROGEN 123 mg/dL 7-21 (BEAKER) (test hcbs=088) CREATININE (BEAKER) (test 5.93 mg/dL 0.57-1.25 jyvw=581) GLUCOSE RANDOM (BEAKER) 108 mg/dL 70-105 (test pirc=113) CALCIUM (BEAKER) (test 8.1 mg/dL 8.4-10.2 zfql=797) EGFR (BEAKER) (test 7 mL/min/1.73 sq m ESTIMATED GFR IS NOT ngwo=8746) ACCURATE CREATININE CLEARANCE IN PREDICTING GLOMERULAR FILTRATION RATE. ESTIMATED GFR IS NOT APPLICABLE FOR DIALYSIS PATIENTS. T4, [id number] 09:25:00 Test Item Value Reference Range Comments FREE T4 (BEAKER) (test syxd=005) 0.67 ng/dL 0.70-1.48 TSH/FREE T4 IF [id number] 09:04:00 Test Item Value Reference Range Comments THYROID STIMULATING HORMONE (BEAKER) (test 7.12 uIU/mL 0.35-4.94 lsiu=958) BASIC METABOLIC [id number] 07:17:00 Test Item Value Reference Range Comments SODIUM (BEAKER) (test 132 meq/L 136-145 sinm=836) POTASSIUM (BEAKER) (test 4.6 meq/L 3.5-5.1 sxjd=429) CHLORIDE (BEAKER) (test 92 meq/L 98-107 xnsv=708) CO2 (BEAKER) (test 22 meq/L 22-29 fguu=997) BLOOD UREA NITROGEN 119 mg/dL 7-21 (BEAKER) (test qfbi=902) CREATININE (BEAKER) (test 5.68 mg/dL 0.57-1.25 sqdh=761) GLUCOSE RANDOM (BEAKER) 108 mg/dL 70-105 (test ujxn=495) CALCIUM (BEAKER) (test 8.0 mg/dL 8.4-10.2 cbuz=066) EGFR (BEAKER) (test 8 mL/min/1.73 sq m ESTIMATED GFR IS NOT snpm=2680) ACCURATE CREATININE CLEARANCE IN PREDICTING GLOMERULAR FILTRATION RATE. ESTIMATED GFR IS NOT APPLICABLE FOR DIALYSIS PATIENTS. CBC (HEMOGRAM ONLY)2018-03-20 06:25:00 Test Item Value Reference Range Comments WHITE BLOOD CELL COUNT (BEAKER) (test uujp=811) 7.0 K/ L 3.5-10.5 RED BLOOD CELL COUNT (BEAKER) (test qkvq=063) 2.95 M/ L 3.93-5.22 HEMOGLOBIN (BEAKER) (test cfbz=039) 9.5 GM/DL 11.2-15.7 HEMATOCRIT (BEAKER) (test svzx=909) 29.3 % 34.1-44.9 MEAN CORPUSCULAR VOLUME (BEAKER) (test lyed=453) 99.3 fL 79.4-94.8 MEAN CORPUSCULAR HEMOGLOBIN (BEAKER) (test 32.2 pg 25.6-32.2 oeud=132) MEAN CORPUSCULAR HEMOGLOBIN CONC (BEAKER) (test 32.4 GM/DL 32.2-35.5 oulq=195) RED CELL DISTRIBUTION WIDTH (BEAKER) (test 22.7 % 11.7-14.4 lltx=077) PLATELET COUNT (BEAKER) (test ffej=001) 53 K/CU MM 150-450 NUCLEATED RED BLOOD CELLS (BEAKER) (test 1 /100 WBC 0-0 ubni=439) BASIC METABOLIC [id number] 03:08:00 Test Item Value Reference Range Comments SODIUM (BEAKER) (test 130 meq/L 136-145 xtkq=844) POTASSIUM (BEAKER) (test 4.9 meq/L 3.5-5.1 ggsx=687) CHLORIDE (BEAKER) (test 92 meq/L 98-107 lbuz=313) CO2 (BEAKER) (test 21 meq/L 22-29 rjay=503) BLOOD UREA NITROGEN 117 mg/dL 7-21 (BEAKER) (test ubdd=692) CREATININE (BEAKER) (test 5.66 mg/dL 0.57-1.25 sgyr=677) GLUCOSE RANDOM (BEAKER) 124 mg/dL 70-105 (test agzc=396) CALCIUM (BEAKER) (test 7.9 mg/dL 8.4-10.2 rwqz=795) EGFR (BEAKER) (test 8 mL/min/1.73 sq m ESTIMATED GFR IS NOT bnbc=3601) ACCURATE CREATININE CLEARANCE IN PREDICTING GLOMERULAR FILTRATION RATE. ESTIMATED GFR IS NOT APPLICABLE FOR DIALYSIS PATIENTS. BASIC METABOLIC [id number] 20:16:00 Test Item Value Reference Range Comments SODIUM (BEAKER) (test 131 meq/L 136-145 xevc=404) POTASSIUM (BEAKER) (test 5.0 meq/L 3.5-5.1 zxbx=703) CHLORIDE (BEAKER) (test 92 meq/L 98-107 cmuv=424) CO2 (BEAKER) (test 22 meq/L 22-29 fvaf=968) BLOOD UREA NITROGEN 113 mg/dL 7-21 (BEAKER) (test wuba=301) CREATININE (BEAKER) (test 5.58 mg/dL 0.57-1.25 pblf=477) GLUCOSE RANDOM (BEAKER) 112 mg/dL 70-105 (test fwzl=123) CALCIUM (BEAKER) (test 8.1 mg/dL 8.4-10.2 zvyw=286) EGFR (BEAKER) (test 8 mL/min/1.73 sq m ESTIMATED GFR IS NOT cukp=1977) ACCURATE CREATININE CLEARANCE IN PREDICTING GLOMERULAR FILTRATION RATE. ESTIMATED GFR IS NOT APPLICABLE FOR DIALYSIS PATIENTS. PROTEIN ELECTROPHORESIS, [id number] 17:31:00 Test Item Value Reference Range Comments ALBUMIN FRACTION (BEAKER) 2.7 g/dL 3.5-5.5 (test lzcf=055) ALPHA 1 FRACTION (BEAKER) 0.4 g/dL 0.2-0.4 (test ubnu=817) ALPHA 2 FRACTION (BEAKER) 0.5 g/dL 0.5-0.9 (test ofnr=219) BETA FRACTION (BEAKER) (test 0.8 g/dL 0.6-1.1 imyd=054) GAMMA GLOBULIN FRACTION 2.2 g/dL 0.7-1.7 (BEAKER) (test edvz=861) INTERPRETATION-119 ([facility]) Polyclonal elevation of gamma (test wijr=3315) fraction, suggestive of chronic inflammatory response. Serum JUDSON pending to evaluate for presence of small underlying monoclonal protein in this region. [id number] Barbie Mcocllum MD ([facility]) (test qwjl=2266) (electronic signature) PROTEIN TOTAL SERUM, SPEP 6.7 gm/dL 6.0-8.3 (BEAKER) (test pcba=8965) IMMUNOFIXATION ELECTROPHORESIS (JUDSON)2018-03-19 17:31:00 Test Item Value Reference Range Comments IMMUNOGLOBULIN G (IGG) (BEAKER) 2008 mg/dL 540-1822 (test dhax=766) IMMUNOGLOBULIN A (IGA) (BEAKER) 37 mg/dL 63-484 (test rfpf=427) IMMUNOGLOBULIN M (IGM) (BEAKER) 673 mg/dL 22-293 (test ezbv=702) SERUM JUDSON ID (BEAKER) (test No monoclonal proteins abtp=9307) detected. Polyclonal elevation of gamma globulins. [id number] ([facility]) Barbie Mccollum MD (test nyva=4823) (electronic signature) ANTI-NUCLEAR ANTIBODY (SARAH)2018-03-19 10:18:00 Test Item Value Reference Range Comments ANTI-NUCLEAR ANTIBODY (SARAH) (BEAKER) (test Positive Negative hoqp=016) Test performed by IFA method.SARAH TITER AND [id number] 10:18:00 Test Item Value Reference Range Comments SARAH TITER (BEAKER) (test fhop=3459) >=:2560 SARAH PATTERN (BEAKER) (test ezie=4969) Speckled FLOW [id number] 09:17:00Flow Cytometry Report Case: [id number] Authorizing Provider: Jordan Sultana MD Collected: 03/17/2018 1500 Ordering Location: [address] Med/Surg Received: 03/17/2018 8352 Pathologist: Doug Lee MD Specimen: Other BONE [...] findings in the bone marrow biopsy report([id number]) .[id number] wf with h/o right breast ca s/p surgery and chemo xrt in 2013 found to have recurrence with extensive metastases, started on carboplatin and gemcitabine in October 2017, transferred from [facility] for management of MAHA with REJI.BONE MARROW ASPIRATECD8, surface-[place], CD56, surface-Lambda, CD5 , CD19, CD10, CD3, CD20, CD4, CD45, CD14, CD13, CD33, CD117, CD34, cKappa, cLambda, CD38, [id number] Viability: 92.4% Number of Events Acquired: [id number] The following populations are identified: Blasts: the [...] developed and their performance characteristics determined by [facility] They have not been cleared or approved by the U.S. Food and Drug Administration. The FDA has determined that such clearance or approval is not necessary. It should not be regarded as investigational or for research. This laboratory is certified under the Clinical Laboratory Improvement Amendments xc9752 ("CLIA") as qualified to perform high-complexity clinical testing.FLOW CYTOMETRY [id number] 09:16:00 Test Item Value Reference Range Comments FLOW CYTOMETRY RESULT POINTER (BEAKER) See Separate Report (test rmkg=9832) FLOW CYTOMETRY AP CASE # (BEAKER) (test [id number] hlko=7467) BASIC METABOLIC [id number] 06:55:00 Test Item Value Reference Range Comments SODIUM (BEAKER) (test 131 meq/L 136-145 vopr=445) POTASSIUM (BEAKER) (test 4.8 meq/L 3.5-5.1 jang=958) CHLORIDE (BEAKER) (test 93 meq/L 98-107 txgu=398) CO2 (BEAKER) (test 20 meq/L 22-29 wpog=414) BLOOD UREA NITROGEN 99 mg/dL 7-21 (BEAKER) (test inbc=715) CREATININE (BEAKER) (test 4.97 mg/dL 0.57-1.25 qpze=976) GLUCOSE RANDOM (BEAKER) 100 mg/dL 70-105 (test wtlq=607) CALCIUM (BEAKER) (test 8.3 mg/dL 8.4-10.2 xlnv=628) EGFR (BEAKER) (test 9 mL/min/1.73 sq m ESTIMATED GFR IS NOT mnow=3576) ACCURATE CREATININE CLEARANCE IN PREDICTING GLOMERULAR FILTRATION RATE. ESTIMATED GFR IS NOT APPLICABLE FOR DIALYSIS PATIENTS. [id number] 06:54:00 Test Item Value Reference Range Comments PHOSPHORUS (BEAKER) (test gnzr=097) 7.0 mg/dL 2.3-4.7 PTH, [id number] 06:42:00 Test Item Value Reference Range Comments PARATHYROID HORMONE INTACT (BEAKER) (test 690.0 pg/mL 8.5-72.5 ddyh=126) VANCOMYCIN LEVEL, [id number] 06:33:00 Test Item Value Reference Range Comments VANCOMYCIN RANDOM (BEAKER) (test dlkh=834) 14.4 ug/mL Reference Range: No NormalsCBC (HEMOGRAM ONLY)2018-03-19 06:14:00 Test Item Value Reference Range Comments WHITE BLOOD CELL COUNT (BEAKER) (test lzzw=032) 5.6 K/ L 3.5-10.5 RED BLOOD CELL COUNT (BEAKER) (test tsjs=287) 2.35 M/ L 3.93-5.22 HEMOGLOBIN (BEAKER) (test ozdd=322) 7.6 GM/DL 11.2-15.7 HEMATOCRIT (BEAKER) (test lmyx=574) 23.7 % 34.1-44.9 MEAN CORPUSCULAR VOLUME (BEAKER) (test gnue=240) 100.9 fL 79.4-94.8 MEAN CORPUSCULAR HEMOGLOBIN (BEAKER) (test 32.3 pg 25.6-32.2 nvew=184) MEAN CORPUSCULAR HEMOGLOBIN CONC (BEAKER) (test 32.1 GM/DL 32.2-35.5 opbc=604) RED CELL DISTRIBUTION WIDTH (BEAKER) (test 23.4 % 11.7-14.4 kanx=378) PLATELET COUNT (BEAKER) (test vwvl=599) 61 K/CU MM 150-450 NUCLEATED RED BLOOD CELLS (BEAKER) (test 1 /100 WBC 0-0 yutn=032) CBC W/PLT COUNT & AUTO [id number] 16:19:00 Test Item Value Reference Range Comments WHITE BLOOD CELL COUNT 5.0 K/ L 3.5-10.5 (BEAKER) (test swrm=475) RED BLOOD CELL COUNT (BEAKER) 2.35 M/ L 3.93-5.22 (test masx=918) HEMOGLOBIN (BEAKER) (test 7.6 GM/DL 11.2-15.7 sdho=710) HEMATOCRIT (BEAKER) (test 23.2 % 34.1-44.9 grij=367) MEAN CORPUSCULAR VOLUME 98.7 fL 79.4-94.8 (BEAKER) (test oalk=566) MEAN CORPUSCULAR HEMOGLOBIN 32.3 pg 25.6-32.2 (BEAKER) (test fjrk=443) MEAN CORPUSCULAR HEMOGLOBIN 32.8 GM/DL 32.2-35.5 CONC (BEAKER) (test qykl=753) RED CELL DISTRIBUTION WIDTH 22.5 % 11.7-14.4 (BEAKER) (test rwho=747) PLATELET COUNT (BEAKER) (test 65 K/CU MM 150-450 ygqd=756) MEAN PLATELET VOLUME (BEAKER) fL 9.4-12.3 Unable to report due to (test mbfm=863) abnormal Platelet population distribution. NUCLEATED RED BLOOD CELLS 1 /100 WBC 0-0 (BEAKER) (test foqe=821) NEUTROPHILS RELATIVE PERCENT 77 % (BEAKER) (test bonv=577) LYMPHOCYTES RELATIVE PERCENT 13 % (BEAKER) (test xsiy=993) MONOCYTES RELATIVE PERCENT 9 % (BEAKER) (test cvug=533) EOSINOPHILS RELATIVE PERCENT 0 % (BEAKER) (test wojn=869) BASOPHILS RELATIVE PERCENT 0 % (BEAKER) (test eaqs=331) NEUTROPHILS ABSOLUTE COUNT 3.82 K/ L 1.56-6.13 (BEAKER) (test yhvj=204) LYMPHOCYTES ABSOLUTE COUNT 0.62 K/ L 1.18-3.74 (BEAKER) (test rdno=099) MONOCYTES ABSOLUTE COUNT 0.46 K/ L 0.24-0.36 (BEAKER) (test ivtu=090) EOSINOPHILS ABSOLUTE COUNT 0.01 K/ L 0.04-0.36 (BEAKER) (test ygvo=922) BASOPHILS ABSOLUTE COUNT 0.01 K/ L 0.01-0.08 (BEAKER) (test bwsl=095) IMMATURE GRANULOCYTES-RELATIVE 1 % 0-1 PERCENT (BEAKER) (test yffb=4823) BASIC METABOLIC [id number] 16:10:00 Test Item Value Reference Range Comments SODIUM (BEAKER) (test 129 meq/L 136-145 zzvx=777) POTASSIUM (BEAKER) (test 4.8 meq/L 3.5-5.1 vkzq=723) CHLORIDE (BEAKER) (test 94 meq/L 98-107 ckei=394) CO2 (BEAKER) (test 19 meq/L 22-29 ewqj=670) BLOOD UREA NITROGEN 88 mg/dL 7-21 (BEAKER) (test hmdk=375) CREATININE (BEAKER) (test 4.42 mg/dL 0.57-1.25 rarv=846) GLUCOSE RANDOM (BEAKER) 111 mg/dL 70-105 (test gewd=232) CALCIUM (BEAKER) (test 8.4 mg/dL 8.4-10.2 puch=484) EGFR (BEAKER) (test 10 mL/min/1.73 sq m ESTIMATED GFR IS NOT jaty=4202) ACCURATE CREATININE CLEARANCE IN PREDICTING GLOMERULAR FILTRATION RATE. ESTIMATED GFR IS NOT APPLICABLE FOR DIALYSIS PATIENTS. [id number] 11:52:00 Test Item Value Reference Range Comments HAPTOGLOBIN (BEAKER) (test vnln=901) 34 mg/dL 14-258 PERIPHERAL BLOOD SMEAR - HOLD [id number] 10:25:00 Test Item Value Reference Range Comments PERIPHERAL SMEAR SAVE (BEAKER) (test vqwo=6224) saved CALCIUM, [id number] 09:40:00 Test Item Value Reference Range Comments CALCIUM IONIZED (BEAKER) (test hslm=883) 0.94 mmol/L 1.12-1.27 PH, BLOOD (BEAKER) (test qfhg=7441) 7.48 LACTATE DEHYDROGENASE (LDH)2018-03-18 09:27:00 Test Item Value Reference Range Comments LACTATE DEHYDROGENASE (BEAKER) (test lhfy=116) 599 U/L 125-220 CBC (HEMOGRAM ONLY)2018-03-18 09:27:00 Test Item Value Reference Range Comments WHITE BLOOD CELL COUNT (BEAKER) (test mabk=966) 4.2 K/ L 3.5-10.5 RED BLOOD CELL COUNT (BEAKER) (test jfag=541) 2.34 M/ L 3.93-5.22 HEMOGLOBIN (BEAKER) (test hrfh=977) 7.4 GM/DL 11.2-15.7 HEMATOCRIT (BEAKER) (test jmjr=409) 22.8 % 34.1-44.9 MEAN CORPUSCULAR VOLUME (BEAKER) (test vrus=932) 97.4 fL 79.4-94.8 MEAN CORPUSCULAR HEMOGLOBIN (BEAKER) (test 31.6 pg 25.6-32.2 fxed=862) MEAN CORPUSCULAR HEMOGLOBIN CONC (BEAKER) (test 32.5 GM/DL 32.2-35.5 qcys=419) RED CELL DISTRIBUTION WIDTH (BEAKER) (test 22.5 % 11.7-14.4 bdfr=810) PLATELET COUNT (BEAKER) (test rbov=528) 39 K/CU MM 150-450 NUCLEATED RED BLOOD CELLS (BEAKER) (test 1 /100 WBC 0-0 aoth=198) RETICULOCYTE [id number] 09:24:00 Test Item Value Reference Range Comments RETICULOCYTE COUNT PCT (BEAKER) (test doce=596) 6.9 % 0.5-1.7 [id number] 09:16:00 Test Item Value Reference Range Comments D-DIMER QUANTITATIVE (BEAKER) (test khqk=246) 3.18 MG/L FEU <0.50 Intended Use: The D-Dimer Assay can be used to aid in the diagnosis of Deep Vein Thrombosis (DVT) and Pulmonary Embolism Disease (PED).In patients with low pre-test probability, various studies concerning STA Liatest D-dimer test have reported that with a cutoff value of 0.50 MG/L FEU, the Negative Predictive Value (NPV) regarding the exclusion of thrombosis is within 95-100% range.[id number] 09:14:00 Test Item Value Reference Range Comments PARTIAL THROMBOPLASTIN TIME (BEAKER) (test 38.9 seconds 22.5-36.0 apme=309) PROTHROMBIN [id number] 09:13:00 Test Item Value Reference Range Comments PROTIME (BEAKER) (test rxds=584) 15.3 seconds 11.7-14.7 INR (BEAKER) (test ylvo=483) 1.2 <=5.9 RECOMMENDED COUMADIN/WARFARIN INR THERAPY RANGESSTANDARD DOSE: 2.0 - 3.0 Includes: PROPHYLAXIS forvenous thrombosis, systemic embolization; TREATMENT for venous thrombosis and/or pulmonary embolus.HIGH RISK: Target INR is 2.5-3.5 for patients with mechanical heart valves.BASIC METABOLIC [id number] 08:52: 00 Test Item Value Reference Range Comments SODIUM (BEAKER) (test 135 meq/L 136-145 xsdy=990) POTASSIUM (BEAKER) (test 4.9 meq/L 3.5-5.1 ofte=880) CHLORIDE (BEAKER) (test 96 meq/L 98-107 fcyc=171) CO2 (BEAKER) (test 23 meq/L 22-29 czey=189) BLOOD UREA NITROGEN 77 mg/dL 7-21 (BEAKER) (test mpep=298) CREATININE (BEAKER) (test 4.04 mg/dL 0.57-1.25 gqpd=829) GLUCOSE RANDOM (BEAKER) 137 mg/dL 70-105 (test apez=193) CALCIUM (BEAKER) (test 8.8 mg/dL 8.4-10.2 jsbj=668) EGFR (BEAKER) (test 12 mL/min/1.73 sq m ESTIMATED GFR IS NOT wmai=6092) ACCURATE CREATININE CLEARANCE IN PREDICTING GLOMERULAR FILTRATION RATE. ESTIMATED GFR IS NOT APPLICABLE FOR DIALYSIS PATIENTS. CALCIUM, [id number] 08:21:00 Test Item Value Reference Range Comments CALCIUM IONIZED (BEAKER) (test yzfc=003) 0.72 mmol/L 1.12-1.27 PH, BLOOD (BEAKER) (test perr=7968) 7.46 OSMOLALITY, [id number] 07:36:00 Test Item Value Reference Range Comments OSMOLALITY URINE (BEAKER) (test sydf=667) 316 mOsm/kg 40-1400 OSMOLALITY, [id number] 07:34:00 Test Item Value Reference Range Comments OSMOLALITY, SERUM (BEAKER) (test anme=308) 303 mOsm/kg 275-295 CREATININE, RANDOM [id number] 07:26:00 Test Item Value Reference Range Comments CREATININE URINE (BEAKER) (test oxap=317) 36.3 mg/dL Reference Range: No NormalsPOTASSIUM, RANDOM [id number] 07:26:00 Test Item Value Reference Range Comments POTASSIUM URINE (BEAKER) (test xxsu=488) 41.5 meq/L Reference Range: No NormalsSODIUM, RANDOM [id number] 07:26:00 Test Item Value Reference Range Comments SODIUM URINE (BEAKER) (test njqc=234) 57 meq/L Reference Range: No NormalsUREA NITROGEN, RANDOM [id number] 07:26:00 Test Item Value Reference Range Comments UREA NITROGEN URINE (BEAKER) (test zgyj=651) 298 mg/dL Reference Range: No NormalsPERIPHERAL BLOOD SMEAR - HOLD [id number] 07:20:00 Test Item Value Reference Range Comments PERIPHERAL SMEAR SAVE (BEAKER) (test rbpp=3896) saved BASIC METABOLIC [id number] 06:08:00 Test Item Value Reference Range Comments SODIUM (BEAKER) (test 128 meq/L 136-145 itmf=520) POTASSIUM (BEAKER) (test 4.6 meq/L 3.5-5.1 dyim=028) CHLORIDE (BEAKER) (test 94 meq/L 98-107 xyzw=620) CO2 (BEAKER) (test 20 meq/L 22-29 ydkt=694) BLOOD UREA NITROGEN 84 mg/dL 7-21 (BEAKER) (test cxoz=202) CREATININE (BEAKER) (test 4.34 mg/dL 0.57-1.25 jsak=185) GLUCOSE RANDOM (BEAKER) 120 mg/dL 70-105 (test twgz=180) CALCIUM (BEAKER) (test 6.8 mg/dL 8.4-10.2 imxx=286) EGFR (BEAKER) (test 11 mL/min/1.73 sq m ESTIMATED GFR IS NOT hrel=5820) ACCURATE CREATININE CLEARANCE IN PREDICTING GLOMERULAR FILTRATION RATE. ESTIMATED GFR IS NOT APPLICABLE FOR DIALYSIS PATIENTS. VANCOMYCIN LEVEL, [id number] 06:05:00 Test Item Value Reference Range Comments VANCOMYCIN RANDOM (BEAKER) (test jdyj=856) < ug/mL Reference Range: No NormalsCALCIUM, [id number] 04:20:00 Test Item Value Reference Range Comments CALCIUM IONIZED (BEAKER) (test gpms=773) 0.81 mmol/L 1.12-1.27 PH, BLOOD (BEAKER) (test bvkz=5883) 7.40 Range 1.12 - [id number] 03:54:00 Test Item Value Reference Range Comments D-DIMER QUANTITATIVE (BEAKER) (test akbf=689) 4.50 MG/L FEU <0.50 Intended Use: The D-Dimer Assay can be used to aid in the diagnosis of Deep Vein Thrombosis (DVT) and Pulmonary Embolism Disease (PED).In patients with low pre-test probability, various studies concerning STA Liatest D-dimer test have reported that with a cutoff value of 0.50 MG/L FEU, the Negative Predictive Value (NPV) regarding the exclusion of thrombosis is within 95-100% range.[id number] 02:58:00 Test Item Value Reference Range Comments PROCALCITONIN (BEAKER) (test xeaw=8925) 8.65 ng/mL <0.05 SEPSIS RISK (ng/mL)Low: 0.05-0.50Intermediate: 0.51-2.00High: & gt;=2.01TROPONIN [id number] 02:29:00 Test Item Value Reference Range Comments TROPONIN I (BEAKER) (test rjcs=160) 0.77 ng/mL 0.00-0.03 Troponin I (TnI) levels [...] acute neurological disease, and persistent tachyarrhythmia.COMPREHENSIVE METABOLIC [id number] 02:11:00 Test Item Value Reference Range Comments TOTAL PROTEIN (BEAKER) 6.8 gm/dL 6.0-8.3 (test hmvr=847) ALBUMIN (BEAKER) (test 2.9 g/dL 3.5-5.0 ngvk=5477) ALKALINE PHOSPHATASE 100 U/L 40-150 (BEAKER) (test acel=176) BILIRUBIN TOTAL (BEAKER) 1.4 mg/dL 0.2-1.2 (test vxtc=478) SODIUM (BEAKER) (test 127 meq/L 136-145 rhdu=637) POTASSIUM (BEAKER) (test 5.0 meq/L 3.5-5.1 zshf=674) CHLORIDE (BEAKER) (test 101 meq/L 98-107 coiv=047) CO2 (BEAKER) (test 15 meq/L 22-29 krsn=832) BLOOD UREA NITROGEN 87 mg/dL 7-21 (BEAKER) (test xwgz=153) CREATININE (BEAKER) (test 4.62 mg/dL 0.57-1.25 docg=522) GLUCOSE RANDOM (BEAKER) 128 mg/dL 70-105 (test ovfu=259) CALCIUM (BEAKER) (test 6.9 mg/dL 8.4-10.2 qrtv=360) AST (SGOT) (BEAKER) (test 79 U/L 5-34 yykc=273) ALT (SGPT) (BEAKER) (test 45 U/L 6-55 slpz=119) EGFR (BEAKER) (test 10 mL/min/1.73 sq m ESTIMATED GFR IS NOT nkut=6361) ACCURATE CREATININE CLEARANCE IN PREDICTING GLOMERULAR FILTRATION RATE. ESTIMATED GFR IS NOT APPLICABLE FOR DIALYSIS PATIENTS. RAD, CHEST, 1 VIEW, NON [id number] 01:44:00Reason for exam:-> HEMODIALYSIS CATHTER PLACEMENTShould this [...] Vázquez Verified Date/Time: 03/18/2018 01:44:10 Reading Location: [address] Body Reading Room [id number] 01:37:00 Test Item Value Reference Range Comments FIBRINOGEN LEVEL (BEAKER) (test qulf=560) 466 mg/dl 225-434 [id number] 01:37:00 Test Item Value Reference Range Comments PARTIAL THROMBOPLASTIN TIME (BEAKER) (test 33.6 seconds 22.5-36.0 nsoj=329) PROTHROMBIN [id number] 01:36:00 Test Item Value Reference Range Comments PROTIME (BEAKER) (test jyzo=695) 17.0 seconds 11.7-14.7 INR (BEAKER) (test qrni=640) 1.4 <=5.9 RECOMMENDED COUMADIN/WARFARIN INR THERAPY RANGESSTANDARD DOSE: 2.0 - 3.0 Includes: PROPHYLAXIS forvenous thrombosis, systemic embolization; TREATMENT for venous thrombosis and/or pulmonary embolus.HIGH RISK: Target INR is 2.5-3.5 for patients with mechanical heart valves.LACTIC ACID, VENOUS, WHOLE [id number] 01:26:00 Test Item Value Reference Range Comments LACTATE BLOOD VENOUS (2) (BEAKER) (test 1.7 mmol/L 0.5-2.2 amfo=5475) Effective 11/28/2015: Units/Reference Range ChangeNew: 0.5-2.2 mmol/L Previous: 5 -20 mg/dLCBC (HEMOGRAM ONLY)2018-03-18 01:16:00 Test Item Value Reference Range Comments WHITE BLOOD CELL COUNT (BEAKER) (test gtww=974) 4.3 K/ L 3.5-10.5 RED BLOOD CELL COUNT (BEAKER) (test rvsd=226) 2.67 M/ L 3.93-5.22 HEMOGLOBIN (BEAKER) (test nkeu=955) 8.6 GM/DL 11.2-15.7 HEMATOCRIT (BEAKER) (test hfvj=939) 25.6 % 34.1-44.9 MEAN CORPUSCULAR VOLUME (BEAKER) (test zsci=421) 95.9 fL 79.4-94.8 MEAN CORPUSCULAR HEMOGLOBIN (BEAKER) (test 32.2 pg 25.6-32.2 rgwh=230) MEAN CORPUSCULAR HEMOGLOBIN CONC (BEAKER) (test 33.6 GM/DL 32.2-35.5 eofy=574) RED CELL DISTRIBUTION WIDTH (BEAKER) (test 21.9 % 11.7-14.4 xedd=585) PLATELET COUNT (BEAKER) (test egfr=581) 39 K/CU MM 150-450 NUCLEATED RED BLOOD CELLS (BEAKER) (test 1 /100 WBC 0-0 caef=823) CT, BIOPSY, BONE [id number] 17:06:00Reason for exam:->pancytopenia in setting of metastatic breast cancer, chemotherapy held almost 2monthsFINAL REPORT PROCEDURE: CT-guided bone marrow biopsy DOSE REDUCTION: The examination was performed according to departmental dose- optimization program which includes automated exposure control, adjustment of the mA and/or kV according to patient size and/or use of iterative reconstruction technique. Clinical History: Pancytopenia Inspector Eyeglass: Marce Conscious sedation: Versed 1 mg,fentanyl 50 [...] was immediately removed and provided to the office technologist. Subsequently a core biopsy was obtained using the outer sheath. The needle and sheath were removed.Postprocedure CT evaluation of the area revealed no significant hematoma. Patient tolerated the procedure well and remained hemodynamically stable throughout. IMPRESSION: Successful and uncomplicated CT -guided bone marrow aspiration and core biopsy. Signed: Jordan Sultana MDReport Verified Date/Time: 03/17/2018 17:06:03 Reading Location: [facility] Radiology Reading Room 05: 06 PMBONE MARROW PROCESS ([facility]2018-03-17 15:16:00 Test Item Value Reference Range Comments ANATOMIC CASE# (ADDY) (test wufb=9479) [id number] ORDERED BY DOCTORJoseph CACERES) (test incm=3773) jordan Sultana m.d. PERFORMED BY DANIKA CACERES) (test Jordan Sultana m.d. fwkj=1892) CLOT RECEIVED? (BETON) (test jqru=1355) Yes BIOPSY RECEIVED? (BEAKER) (test qffq=8684) Yes CULTURE RECEIVED? (BEAKER) (test gnkf=8115) No FLOW RECEIVED? (BETON) (test ahyb=5525) Yes CYTOGENICS? (BEAKER) (test qbjm=1808) Yes MOLECULAR GENETICS? (BEAKER) (test No rnbr=8731) RAD, CHEST, 2 [id number] 13:39:00Reason for exam:->sobFINAL REPORT Comparison: 15/08/2017 TECHNIQUE: 2 views of the chest FINDINGS: There is mild vascular congestion. There are small pleural effusions. Cardiac silhouette is enlarged.Left internal jugular chest port noted with tip at the cavoatrial junction. Surgical clips project over the right chest wall. Signed: Jordan Sultana MDReport Verified Date/Time: 03/17/2018 13:39:16 Reading Location: [facility] Radiology Reading Room [id number] 13:20:00 Test Item Value Reference Range Comments HAPTOGLOBIN (BEAKER) (test fgrw=365) < mg/dL 14-258 COMPLEMENT COMPONENT [id number] 12:57:00 Test Item Value Reference Range Comments C4 COMPLEMENT (BEAKER) (test apcs=708) 22 mg/dL 15-57 COMPLEMENT COMPONENT [id number] 12:57:00 Test Item Value Reference Range Comments C3 COMPLEMENT (BEAKER) (test ltjq=070) 94 mg/dL 82-193 PERIPHERAL BLOOD SMEAR - PATHOLOGIST [id number] 09:47:00 Test Item Value Reference Range Comments PERIPHERAL SMR REVIEW Normochromic normocytic anemia (BEAKER) (test pgch=6933) with rare schistocytes seen (1-2/ HPF). WBCs normal in number and morphology. Thrombocytopenia with a few large forms. [id number] Michelle Yu M.D. (electronic (BEAKER) (test tneq=1957) signature) TROPONIN [id number] 07:07:00 Test Item Value Reference Range Comments TROPONIN I (BEAKER) (test neuf=835) 1.56 ng/mL 0.00-0.15 Troponin I (TnI) levels [...] acute neurological disease, and persistent tachyarrhythmia.BASIC METABOLIC [id number] 07:06:00 Test Item Value Reference Range Comments SODIUM (BEAKER) (test 131 meq/L 135-148 rlww=062) POTASSIUM (BEAKER) (test 5.8 meq/L 3.6-5.5 nimg=433) CHLORIDE (BEAKER) (test 107 meq/L 98-106 nzma=288) CO2 (BEAKER) (test 12 meq/L 20-29 sazo=711) BLOOD UREA NITROGEN 74 mg/dL 10-26 (BEAKER) (test wzxx=051) CREATININE (BEAKER) (test 3.95 mg/dL 0.50-1.20 hgcb=657) GLUCOSE RANDOM (BEAKER) 133 mg/dL 70-110 (test ojmv=173) CALCIUM (BEAKER) (test 7.6 mg/dL 8.5-10.5 ihqq=612) EGFR (BEAKER) (test 12 mL/min/1.73 sq m ESTIMATED GFR IS NOT nxkx=6642) ACCURATE CREATININE CLEARANCE IN PREDICTING GLOMERULAR FILTRATION RATE. ESTIMATED GFR IS NOT APPLICABLE FOR DIALYSIS PATIENTS. [id number] 06:45:00 Test Item Value Reference Range Comments MAGNESIUM (BEAKER) (test vszx=990) 2.0 mg/dL 1.5-3.0 CBC W/PLT COUNT & AUTO [id number] 06:35:00 Test Item Value Reference Range Comments WHITE BLOOD CELL COUNT (BEAKER) (test fyqw=593) 8.7 K/ L 4.0-10.0 RED BLOOD CELL COUNT (BEAKER) (test cmkv=268) 3.26 M/ L 4.00-5.00 HEMOGLOBIN (BEAKER) (test zzzg=288) 10.2 GM/DL 12.0-15.5 HEMATOCRIT (BEAKER) (test tkft=818) 31.9 % 36.0-46.0 MEAN CORPUSCULAR VOLUME (BEAKER) (test crgt=684) 97.9 fL 82.0-99.0 MEAN CORPUSCULAR HEMOGLOBIN (BEAKER) (test 31.3 pg 27.0-33.0 sbvj=483) MEAN CORPUSCULAR HEMOGLOBIN CONC (BEAKER) (test 32.0 GM/DL 32.0-36.0 liua=386) RED CELL DISTRIBUTION WIDTH (BEAKER) (test 20.8 % 12.0-15.0 dakr=666) PLATELET COUNT (BEAKER) (test qzmd=937) 62 K/CU MM 150-430 MEAN PLATELET VOLUME (BEAKER) (test fckr=127) 10.5 fL 6.0-11.5 NUCLEATED RED BLOOD CELLS (BEAKER) (test 0 /100 WBC 0-0 eaqq=158) NEUTROPHILS RELATIVE PERCENT (BEAKER) (test 80 % gaxb=524) LYMPHOCYTES RELATIVE PERCENT (BEAKER) (test 11 % zmxb=281) MONOCYTES RELATIVE PERCENT (BEAKER) (test 8 % kusd=677) EOSINOPHILS RELATIVE PERCENT (BEAKER) (test 0 % jszb=935) BASOPHILS RELATIVE PERCENT (BEAKER) (test 0 % fneg=349) NEUTROPHILS ABSOLUTE COUNT (BEAKER) (test 6.95 K/ L 1.80-8.00 nwft=951) LYMPHOCYTES ABSOLUTE COUNT (BEAKER) (test 0.92 K/ L 1.48-4.50 jmfx=416) MONOCYTES ABSOLUTE COUNT (BEAKER) (test cdpd=227) 0.72 K/ L 0.00-1.30 EOSINOPHILS ABSOLUTE COUNT (BEAKER) (test 0.00 K/ L 0.00-0.50 flep=365) BASOPHILS ABSOLUTE COUNT (BEAKER) (test boax=353) 0.01 K/ L 0.00-0.20 IMMATURE GRANULOCYTES-RELATIVE PERCENT (BEAKER) 1 % 0-0 (test fsii=4024) BLOOD GAS, [id number] 05:27:00 Test Item Value Reference Range Comments PH ARTERIAL (BEAKER) (test ixve=974) 7.40 7.35-7.45 PCO2 ARTERIAL (BEAKER) (test clxx=613) 18 mmHg 35-45 PO2 ARTERIAL (BEAKER) (test qree=849) 72 mmHg 80-90 O2 SATURATION ARTERIAL (BEAKER) (test hnuh=375) 94.7 % 96.0-97.0 HCO3 ARTERIAL (BEAKER) (test upnd=472) 11 mmol/L 21-29 BASE EXCESS ARTERIAL (BEAKER) (test flmb=821) -12.0 mmol/L -2.0-3.0 PATIENT TEMPERATURE (BEAKER) (test tife=9683) 37.5 C FIO2 (BEAKER) (test arnu=1293) 28.0 % PROTEIN, RANDOM [id number] 00:47:00 Test Item Value Reference Range Comments PROTEIN, URINE (BEAKER) (test jimj=0309) 432 mg/dL 0-14 CREATININE, RANDOM [id number] 00:03:00 Test Item Value Reference Range Comments CREATININE URINE (BEAKER) (test wani=913) 68.6 mg/dL Reference Range: No NormalsURINALYSIS W/ [id number] 23:56:00 Test Item Value Reference Range Comments COLOR (BEAKER) (test xrhb=617) Yellow CLARITY (BEAKER) (test vxpp=922) Clear SPECIFIC GRAVITY UA (BEAKER) (test vymp=949) 1.020 1.001-1.035 PH UA (BEAKER) (test tbad=532) 5.5 5.0-8.0 PROTEIN UA (BEAKER) (test jhsp=507) >=300 mg/dL Negative GLUCOSE UA (BEAKER) (test pmbs=310) Negative Negative KETONES UA (BEAKER) (test cpcf=283) Negative Negative BILIRUBIN UA (BEAKER) (test eqkv=546) Negative Negative BLOOD UA (BEAKER) (test wzqk=810) Large Negative NITRITE UA (BEAKER) (test pusr=994) Negative Negative LEUKOCYTE ESTERASE UA (BEAKER) (test lekp=195) Trace Negative UROBILINOGEN UA (BEAKER) (test cukm=447) 0.2 mg/dL 0.2-1.0 BACTERIA (BEAKER) (test hzys=235) Occasional AMORPHOUS CRYSTALS (BEAKER) (test blww=4912) Few RBC UA-MANUAL (BEAKER) (test wxet=9743) 5-10 /HPF WBC UA-MANUAL (BEAKER) (test foqi=3493) <5 /HPF SQUAMOUS EPITHELIAL MANUAL (BEAKER) (test 5-10 /HPF olwu=2924) GRANULAR CASTS MANUAL (BEAKER) (test dtql=0502) Few /LPF SOURCE(BEAKER) (test rbtk=5829) KETONE, [id number] 22:28:00 Test Item Value Reference Range Comments KETONES, BLOOD (BEAKER) (test yeqb=9212) 0.3 mmol/L <0.4 BILIRUBIN, TOTAL AND [id number] 22:17:00 Test Item Value Reference Range Comments BILIRUBIN TOTAL (BEAKER) (test erik=409) 2.1 mg/dL 0.1-1.2 BILIRUBIN DIRECT (BEAKER) (test czhm=653) 1.1 mg/dL 0.0-0.4 LACTATE DEHYDROGENASE (LDH)[id number] 22:16:00 Test Item Value Reference Range Comments LACTATE DEHYDROGENASE (BEAKER) (test zyct=108) 1540 U/L 107-206 TROPONIN [id number] 19:44:00 Test Item Value Reference Range Comments TROPONIN I (BEAKER) (test nxax=131) 0.24 ng/mL 0.00-0.15 Troponin I (TnI) levels [...] acidosis, acute neurological disease, and persistent tachyarrhythmia.TROPONIN [id number] 10:58:00 Test Item Value Reference Range Comments TROPONIN I (BEAKER) (test vpxb=692) 0.17 ng/mL 0.00-0.15 Troponin I (TnI) levels [...] and persistent tachyarrhythmia.CREATINE KINASE (CK), TOTAL AND [id number] 10:57:00 Test Item Value Reference Range Comments CREATINE KINASE TOTAL (BEAKER) (test ysny=090) 125 U/L 25-235 CREATINE KINASE-MB (BEAKER) (test jwbf=934) 0.9 ng/mL 0.0-4.9 CREATINE KINASE-MB INDEX (BEAKER) (test wyye=687) 0.7 % CK-MB Reference Range:<5 Normal5-10 Borderline>10 AbnormalCOMPREHENSIVE METABOLIC [id number] 10:53:00 Test Item Value Reference Range Comments TOTAL PROTEIN (BEAKER) 7.7 gm/dL 6.0-8.5 (test wfsz=976) ALBUMIN (BEAKER) (test 3.4 g/dL 3.5-5.0 sprv=1615) ALKALINE PHOSPHATASE 45 U/L 30-115 (BEAKER) (test hmuf=716) BILIRUBIN TOTAL (BEAKER) 1.4 mg/dL 0.1-1.2 (test cmkr=754) SODIUM (BEAKER) (test 132 meq/L 135-148 zpwj=141) POTASSIUM (BEAKER) (test 4.8 meq/L 3.6-5.5 zvxt=838) CHLORIDE (BEAKER) (test 106 meq/L 98-106 ahix=068) CO2 (BEAKER) (test 13 meq/L 20-29 bhpr=856) BLOOD UREA NITROGEN 63 mg/dL 10-26 (BEAKER) (test srdn=740) CREATININE (BEAKER) (test 3.73 mg/dL 0.50-1.20 jytf=765) GLUCOSE RANDOM (BEAKER) 94 mg/dL 70-110 (test rrik=805) CALCIUM (BEAKER) (test 8.2 mg/dL 8.5-10.5 ehrl=723) AST (SGOT) (BEAKER) (test 59 U/L 5-40 fyrk=972) ALT (SGPT) (BEAKER) (test 23 U/L 5-50 oxti=977) EGFR (BEAKER) (test 13 mL/min/1.73 sq m ESTIMATED GFR IS NOT zqsb=2343) ACCURATE CREATININE CLEARANCE IN PREDICTING GLOMERULAR FILTRATION RATE. ESTIMATED GFR IS NOT APPLICABLE FOR DIALYSIS PATIENTS. URINALYSIS W/ [id number] 10:49:00 Test Item Value Reference Range Comments COLOR (BEAKER) (test rejj=576) Yellow CLARITY (BEAKER) (test hmdu=659) Clear SPECIFIC GRAVITY UA (BEAKER) (test nxnz=445) 1.020 1.001-1.035 PH UA (BEAKER) (test enba=569) 5.5 5.0-8.0 PROTEIN UA (BEAKER) (test ddcg=625) >=300 mg/dL Negative GLUCOSE UA (BEAKER) (test qpnn=470) Negative Negative KETONES UA (BEAKER) (test rtzr=133) Negative Negative BILIRUBIN UA (BEAKER) (test nhuk=749) Negative Negative BLOOD UA (BEAKER) (test nuha=082) Large Negative NITRITE UA (BEAKER) (test buge=235) Negative Negative LEUKOCYTE ESTERASE UA (BEAKER) (test snbw=834) Negative Negative UROBILINOGEN UA (BEAKER) (test bbco=805) 0.2 mg/dL 0.2-1.0 BACTERIA (BEAKER) (test jpqs=763) Few AMORPHOUS CRYSTALS (BEAKER) (test emst=7137) Moderate RBC UA-MANUAL (BEAKER) (test dcdl=9816) 5-10 /HPF WBC UA-MANUAL (BEAKER) (test iauj=1632) <5 /HPF SQUAMOUS EPITHELIAL MANUAL (BEAKER) (test 5-10 /HPF vjwk=9223) WAXY CASTS MANUAL (BEAKER) (test ycwr=8896) 5-10 /LPF SOURCE(BEAKER) (test jfkm=3359) CBC W/PLT COUNT & AUTO [id number] 10:49:00 Test Item Value Reference Range Comments WHITE BLOOD CELL COUNT (BEAKER) (test zqcs=869) 4.0 K/ L 4.0-10.0 RED BLOOD CELL COUNT (BEAKER) (test pavc=875) 1.64 M/ L 4.00-5.00 HEMOGLOBIN (BEAKER) (test tinb=672) 5.5 GM/DL 12.0-15.5 HEMATOCRIT (BEAKER) (test rzdn=562) 17.6 % 36.0-46.0 MEAN CORPUSCULAR VOLUME (BEAKER) (test rocb=109) 107.3 fL 82.0-99.0 MEAN CORPUSCULAR HEMOGLOBIN (BEAKER) (test 33.5 pg 27.0-33.0 nqot=733) MEAN CORPUSCULAR HEMOGLOBIN CONC (BEAKER) (test 31.3 GM/DL 32.0-36.0 kbnc=507) RED CELL DISTRIBUTION WIDTH (BEAKER) (test 23.5 % 12.0-15.0 hlei=164) PLATELET COUNT (BEAKER) (test ffhp=183) 66 K/CU MM 150-430 MEAN PLATELET VOLUME (BEAKER) (test nuao=325) 11.3 fL 6.0-11.5 NUCLEATED RED BLOOD CELLS (BEAKER) (test 0 /100 WBC 0-0 gbyb=322) NEUTROPHILS RELATIVE PERCENT (BEAKER) (test 81 % ljky=019) LYMPHOCYTES RELATIVE PERCENT (BEAKER) (test 9 % qcax=736) MONOCYTES RELATIVE PERCENT (BEAKER) (test 9 % peum=731) EOSINOPHILS RELATIVE PERCENT (BEAKER) (test 0 % lprq=873) BASOPHILS RELATIVE PERCENT (BEAKER) (test 0 % ysaw=268) NEUTROPHILS ABSOLUTE COUNT (BEAKER) (test 3.21 K/ L 1.80-8.00 cyhc=500) LYMPHOCYTES ABSOLUTE COUNT (BEAKER) (test 0.36 K/ L 1.48-4.50 tbzz=242) MONOCYTES ABSOLUTE COUNT (BEAKER) (test pspl=221) 0.34 K/ L 0.00-1.30 EOSINOPHILS ABSOLUTE COUNT (BEAKER) (test 0.01 K/ L 0.00-0.50 iulk=018) BASOPHILS ABSOLUTE COUNT (BEAKER) (test rlrf=338) 0.00 K/ L 0.00-0.20 IMMATURE GRANULOCYTES-RELATIVE PERCENT (BEAKER) 1 % 0-0 (test zrpw=1952) (MANUAL DIFFERENTIAL)2018-03-16 10:49:00 Test Item Value Reference Range Comments TOTAL COUNTED (BEAKER) (test jsip=7752) WBC MORPHOLOGY (BEAKER) (test iwmj=681) Normal PLT MORPHOLOGY (BEAKER) (test mxzj=315) Normal SCHISTOCYTES (BEAKER) (test hwyn=886) 1+ few ANISOCYTOSIS (BEAKER) (test maxm=430) 1+ few MACROCYTES (BEAKER) (test inme=921) 1+ few MICROCYTES (BEAKER) (test xngd=823) 1+ few POIKILOCYTES (BEAKER) (test gvoe=015) 1+ few POLYCHROMATOPHILLIC RBCS(BEAKER) (test auvn=247) 1+ few [id number] 10:46:00 Test Item Value Reference Range Comments PROTIME (BEAKER) (test kpsk=117) 11.1 sec 9.3-12.0 INR (BEAKER) (test znge=609) 1.0 <=5.9 PARTIAL THROMBOPLASTIN TIME (BEAKER) (test 31.0 sec 23.0-35.0 ttnr=046) RECOMMENDED COUMADIN/WARFARIN INR THERAPY RANGESSTANDARD DOSE: 2.0 - 3.0 Includes: PROPHYLAXIS forvenous thrombosis, systemic embolization; TREATMENT for venous thrombosis and/or pulmonary embolus.HIGH RISK: Target INR is 2.5-3.5 for patients with mechanical heart valves.Final Information (Auto Output)Final Information (Auto Output)Final Information (Auto Output)LACTIC ACID, VENOUS, WHOLE [id number] 10:45:00 Test Item Value Reference Range Comments LACTATE BLOOD VENOUS (2) (BEAKER) (test 2.2 mmol/L 0.5-2.2 nhzr=3938) Effective 11/28/2015: Units/Reference Range ChangeNew: 0.5-2.2 mmol/L Previous: 5 -18 mg/dLRAD, CHEST, 1 VIEW, NON [id number] 10:14:00Reason for exam:-> chest painIs the patient [...] MDReport Verified Date/Time: 03/16/2018 10:14:32 Reading Location: [facility] Radiology Reading Room 10: 14 AMBLOOD [id number] 22:01:00 Test Item Value Reference Range Comments CULTURE (BEAKER) (test hwnq=9143) No growth in 5 days BLOOD [id number] 22:01:00 Test Item Value Reference Range Comments CULTURE (BEAKER) (test qlya=8114) No growth in 5 days RESPIRATORY PANEL [id number] 09:21:00 Test Item Value Reference Range Comments HUMAN METAPNEUMOVIRUS (BEAKER) (test Not detected Not detected, Inconclusive juxk=9866) RHINOVIRUS (BEAKER) (test xtde=7990) Not detected Not detected, Inconclusive INFLUENZA A (BEAKER) (test Not detected Not detected, Inconclusive hhkt=6699) INFLUENZA A SUBTYPE H1 (BEAKER) Not detected Not detected, Inconclusive (test ajum=7472) INFLUENZA A SUBTYPE H3 (BEAKER) Not detected Not detected, Inconclusive (test otwc=6959) INFLUENZA A SUBTYPE H1-2009 (BEAKER) Not detected Not detected, Inconclusive (test lmwi=8052) INFLUENZA B (BEAKER) (test Not detected Not detected, Inconclusive twfj=0587) RESPIRATORY SYNCYTIAL VIRUS (BEAKER) Not detected Not detected, Inconclusive (test cwof=0674) PARAINFLUENZA VIRUS 1 (BEAKER) (test Not detected Not detected, Inconclusive furr=9393) PARAINFLUENZA VIRUS 2 (BEAKER) (test Not detected Not detected, Inconclusive tewv=8932) PARAINFLUENZA VIRUS 3 (BEAKER) (test Not detected Not detected, Inconclusive efpg=2524) PARAINFLUENZA VIRUS 4 (BEAKER) (test Not detected Not detected, Inconclusive eomf=9632) ADENOVIRUS (BEAKER) (test zllh=0796) Not detected Not detected, Inconclusive CORONAVIRUS 229E (BEAKER) (test Not detected Not detected, Inconclusive yivm=3893) CORONAVIRUS HKU1 (BEAKER) (test Not detected Not detected, Inconclusive yjnb=1485) CORONAVIRUS NL63 (BEAKER) (test Not detected Not detected, Inconclusive ensz=0264) CORONAVIRUS OC43 (BEAKER) (test Not detected Not detected, Inconclusive nmqx=4489) BORDETELLA PERTUSSIS (BEAKER) (test Not detected Not detected, Inconclusive pxwz=8327) CHLAMYDOPHILA PNEUMONIAE (BEAKER) Not detected Not detected, Inconclusive (test aign=7477) MYCOPLASMA PNEUMONIAE (BEAKER) (test Not detected Not detected, Inconclusive avge=0173) VANCOMYCIN LEVEL, [id number] 07:38:00 Test Item Value Reference Range Comments VANCOMYCIN TROUGH (BEAKER) (test vetn=925) 11.7 ug/mL 10.0-20.0 URINE [id number] 08:56:00 Test Item Value Reference Range Comments CULTURE (BEAKER) (test ilkq=1527) No growth CBC W/PLT COUNT & AUTO [id number] 06:39:00 Test Item Value Reference Range Comments WHITE BLOOD CELL COUNT (BEAKER) (test ylof=798) 2.4 K/ L 4.0-10.0 RED BLOOD CELL COUNT (BEAKER) (test soxx=258) 2.56 M/ L 4.00-5.00 HEMOGLOBIN (BEAKER) (test tzbq=206) 8.4 GM/DL 12.0-15.0 HEMATOCRIT (BEAKER) (test dwux=803) 24.6 % 36.0-45.0 MEAN CORPUSCULAR VOLUME (BEAKER) (test kwaq=277) 96.4 fL 82.0-99.0 MEAN CORPUSCULAR HEMOGLOBIN (BEAKER) (test 33.0 pg 27.0-33.0 mmpv=327) MEAN CORPUSCULAR HEMOGLOBIN CONC (BEAKER) (test 34.2 GM/DL 32.0-36.0 xbct=119) RED CELL DISTRIBUTION WIDTH (BEAKER) (test 19.7 % 10.3-14.2 pqzq=984) PLATELET COUNT (BEAKER) (test wzvz=378) 108 K/CU MM 150-430 MEAN PLATELET VOLUME (BEAKER) (test okuh=508) 8.8 fL 6.5-10.5 NUCLEATED RED BLOOD CELLS (BEAKER) (test 0 /100 WBC 0-0 msve=831) (MANUAL DIFFERENTIAL)2017-12-10 06:39:00 Test Item Value Reference Range Comments NEUTROPHILS - REL (DIFF) (BEAKER) (test vwyq=8378) 83 % LYMPHOCYTES - REL (DIFF) (BEAKER) (test ookv=8539) 15 % MONOCYTES - REL (DIFF) (BEAKER) (test xcwj=3027) 2 % NEUTROPHILS - ABS (DIFF) (BEAKER) (test tkhm=8540) 1.99 K/ L 1.80-8.00 LYMPHOCYTES - ABS (DIFF) (BEAKER) (test ducq=6894) 0.36 K/ L 1.48-4.50 MONOCYTES - ABS (DIFF) (BEAKER) (test bwak=8959) 0.05 K/ L 0.00-1.30 TOTAL COUNTED (BEAKER) (test vcgx=3971) 100 WBC MORPHOLOGY (BEAKER) (test kiek=288) Normal PLT MORPHOLOGY (BEAKER) (test qyqg=383) Normal RBC MORPHOLOGY (BEAKER) (test anbq=702) Normal POCT-GLUCOSE [id number] 14:39:00 Test Item Value Reference Range Comments POC-GLUCOSE METER (BEAKER) 125 mg/dL 70-110 TESTED AT [facility] [address] (test xtja=3034) [address] [facility] [address] CBC W/PLT COUNT & AUTO [id number] 06:47:00 Test Item Value Reference Range Comments WHITE BLOOD CELL COUNT (BEAKER) (test 2.2 K/ L 4.0-10.0 ymid=255) RED BLOOD CELL COUNT (BEAKER) (test 2.72 M/ L 4.00-5.00 zelo=220) HEMOGLOBIN (BEAKER) (test qlff=699) 9.1 GM/DL 12.0-15.0 HEMATOCRIT (BEAKER) (test xlth=560) 26.2 % 36.0-45.0 MEAN CORPUSCULAR VOLUME (BEAKER) (test 96.3 fL 82.0-99.0 qfka=381) MEAN CORPUSCULAR HEMOGLOBIN (BEAKER) 33.3 pg 27.0-33.0 (test ayrl=171) MEAN CORPUSCULAR HEMOGLOBIN CONC 34.5 GM/DL 32.0-36.0 (BEAKER) (test izsy=941) RED CELL DISTRIBUTION WIDTH (BEAKER) 18.3 % 10.3-14.2 (test bzaz=555) PLATELET COUNT (BEAKER) (test apsp=148) 129 K/CU MM 150-430 No clot detected MEAN PLATELET VOLUME (BEAKER) (test 7.8 fL 6.5-10.5 kuwl=564) NEUTROPHILS RELATIVE PERCENT (BEAKER) 81 % (test hujh=814) LYMPHOCYTES RELATIVE PERCENT (BEAKER) 14 % (test hgyt=535) MONOCYTES RELATIVE PERCENT (BEAKER) 4 % (test uijh=301) EOSINOPHILS RELATIVE PERCENT (BEAKER) 0 % (test hgir=987) BASOPHILS RELATIVE PERCENT (BEAKER) 0 % (test exqm=174) NEUTROPHILS ABSOLUTE COUNT (BEAKER) 1.80 K/ L 1.80-8.00 (test xnkm=132) LYMPHOCYTES ABSOLUTE COUNT (BEAKER) 0.30 K/ L 1.48-4.50 (test oror=364) MONOCYTES ABSOLUTE COUNT (BEAKER) (test 0.10 K/ L 0.00-1.30 glnk=753) EOSINOPHILS ABSOLUTE COUNT (BEAKER) 0.00 K/ L 0.00-0.50 (test khtv=811) BASOPHILS ABSOLUTE COUNT (BEAKER) (test 0.00 K/ L 0.00-0.20 ccnd=570) BASIC METABOLIC [id number] 05:54:00 Test Item Value Reference Range Comments SODIUM (BEAKER) (test 138 meq/L 135-148 pzwt=953) POTASSIUM (BEAKER) (test 3.9 meq/L 3.6-5.5 mzfx=863) CHLORIDE (BEAKER) (test 105 meq/L 98-106 gcth=264) CO2 (BEAKER) (test 26 meq/L 20-29 vkcw=687) BLOOD UREA NITROGEN 14 mg/dL 10-26 (BEAKER) (test jwzn=489) CREATININE (BEAKER) (test 0.76 mg/dL 0.50-1.20 vyfi=187) GLUCOSE RANDOM (BEAKER) 84 mg/dL 70-110 (test frrp=485) CALCIUM (BEAKER) (test 8.2 mg/dL 8.5-10.5 iaip=236) EGFR (BEAKER) (test 80 mL/min/1.73 sq m ESTIMATED GFR IS NOT mypu=5100) ACCURATE CREATININE CLEARANCE IN PREDICTING GLOMERULAR FILTRATION RATE. ESTIMATED GFR IS NOT APPLICABLE FOR DIALYSIS PATIENTS. RAD, CHEST, 2 [id number] 19:36:00Reason for exam:->FEVERIs the patient ?->NoShould this [...] MDReport Verified Date/Time: 12/08/2017 19:36:34 Reading Location: [facility] B1 [id number] Consult Reading Room URINALYSIS W/ [id number] 19:33:00 Test Item Value Reference Range Comments COLOR (BEAKER) (test uaqd=461) Yellow CLARITY (BEAKER) (test jtch=689) Clear SPECIFIC GRAVITY UA (BEAKER) (test qlec=179) <= 1.001-1.035 PH UA (BEAKER) (test orew=152) 5.5 5.0-8.0 PROTEIN UA (BEAKER) (test laga=621) Negative Negative GLUCOSE UA (BEAKER) (test ubix=404) Negative Negative KETONES UA (BEAKER) (test pgjw=775) Negative Negative BILIRUBIN UA (BEAKER) (test jawf=501) Negative Negative BLOOD UA (BEAKER) (test nwkw=469) Negative Negative NITRITE UA (BEAKER) (test vvbw=876) Negative Negative LEUKOCYTE ESTERASE UA (BEAKER) (test vjia=893) Negative Negative UROBILINOGEN UA (BEAKER) (test vipq=096) 0.2 mg/dL 0.2-1.0 BACTERIA (BEAKER) (test vqyf=098) Occasional RBC UA-MANUAL (BEAKER) (test gpjj=7825) <5 /HPF WBC UA-MANUAL (BEAKER) (test mbmm=6509) <5 /HPF SQUAMOUS EPITHELIAL MANUAL (BEAKER) (test <5 /HPF cyvm=1422) SOURCE(BEAKER) (test maqu=7275) COMPREHENSIVE METABOLIC [id number] 19:01:00 Test Item Value Reference Range Comments TOTAL PROTEIN (BEAKER) 8.1 gm/dL 6.0-8.5 (test psdz=250) ALBUMIN (BEAKER) (test 4.1 g/dL 3.5-5.0 lswm=1474) ALKALINE PHOSPHATASE 75 U/L 30-115 (BEAKER) (test hsjg=410) BILIRUBIN TOTAL (BEAKER) 0.6 mg/dL 0.1-1.2 (test ckhm=025) SODIUM (BEAKER) (test 132 meq/L 135-148 ypmo=930) POTASSIUM (BEAKER) (test 3.6 meq/L 3.6-5.5 nwfc=298) CHLORIDE (BEAKER) (test 97 meq/L 98-106 juur=663) CO2 (BEAKER) (test 23 meq/L 20-29 lzgr=074) BLOOD UREA NITROGEN 18 mg/dL 10-26 (BEAKER) (test swfr=129) CREATININE (BEAKER) (test 1.02 mg/dL 0.50-1.20 vcyw=003) GLUCOSE RANDOM (BEAKER) 102 mg/dL 70-110 (test jofu=595) CALCIUM (BEAKER) (test 8.6 mg/dL 8.5-10.5 pzvk=712) AST (SGOT) (BEAKER) (test 38 U/L 5-40 mpel=208) ALT (SGPT) (BEAKER) (test 49 U/L 5-50 vfeq=991) EGFR (BEAKER) (test 57 mL/min/1.73 sq m ESTIMATED GFR IS NOT eqlb=6724) ACCURATE CREATININE CLEARANCE IN PREDICTING GLOMERULAR FILTRATION RATE. ESTIMATED GFR IS NOT APPLICABLE FOR DIALYSIS PATIENTS. LACTIC ACID, VENOUS, WHOLE [id number] 18:53:00 Test Item Value Reference Range Comments LACTATE BLOOD VENOUS (2) (BEAKER) (test 0.8 mmol/L 0.5-2.2 gxqw=1734) Effective 11/28/2015: Units/Reference Range ChangeNew: 0.5-2.2 mmol/L Previous: 5 -18 mg/dLCBC W/PLT COUNT & AUTO [id number] 18:36:00 Test Item Value Reference Range Comments WHITE BLOOD CELL COUNT (BEAKER) (test meze=086) 3.5 K/ L 4.0-10.0 RED BLOOD CELL COUNT (BEAKER) (test tegf=290) 2.95 M/ L 4.00-5.00 HEMOGLOBIN (BEAKER) (test grid=663) 9.7 GM/DL 12.0-15.0 HEMATOCRIT (BEAKER) (test ujgm=675) 28.5 % 36.0-45.0 MEAN CORPUSCULAR VOLUME (BEAKER) (test zvsn=257) 96.6 fL 82.0-99.0 MEAN CORPUSCULAR HEMOGLOBIN (BEAKER) (test 32.9 pg 27.0-33.0 kpbx=189) MEAN CORPUSCULAR HEMOGLOBIN CONC (BEAKER) (test 34.0 GM/DL 32.0-36.0 pbhi=274) RED CELL DISTRIBUTION WIDTH (BEAKER) (test 18.5 % 10.3-14.2 yfbv=012) PLATELET COUNT (BEAKER) (test hraa=840) 187 K/CU MM 150-430 MEAN PLATELET VOLUME (BEAKER) (test fisi=544) 7.8 fL 6.5-10.5 NEUTROPHILS RELATIVE PERCENT (BEAKER) (test 84 % mzcn=815) LYMPHOCYTES RELATIVE PERCENT (BEAKER) (test 10 % jlbo=438) MONOCYTES RELATIVE PERCENT (BEAKER) (test 5 % fpip=637) EOSINOPHILS RELATIVE PERCENT (BEAKER) (test 0 % bnsy=616) BASOPHILS RELATIVE PERCENT (BEAKER) (test 0 % coij=878) NEUTROPHILS ABSOLUTE COUNT (BEAKER) (test 2.90 K/ L 1.80-8.00 rdzx=127) LYMPHOCYTES ABSOLUTE COUNT (BEAKER) (test 0.40 K/ L 1.48-4.50 ayww=634) MONOCYTES ABSOLUTE COUNT (BEAKER) (test 0.20 K/ L 0.00-1.30 ucun=365) EOSINOPHILS ABSOLUTE COUNT (BEAKER) (test 0.00 K/ L 0.00-0.50 bhqq=418) BASOPHILS ABSOLUTE COUNT (BEAKER) (test 0.00 K/ L 0.00-0.20 esov=968) BLOOD [id number] 13:00:00 Test Item Value Reference Range Comments CULTURE (BEAKER) (test sseh=2977) No growth in 5 days BLOOD [id number] 10:00:00 Test Item Value Reference Range Comments CULTURE (BEAKER) (test jyla=3588) No growth in 5 days VANCOMYCIN LEVEL, [id number] 14:26:00 Test Item Value Reference Range Comments VANCOMYCIN TROUGH (BEAKER) (test mzpl=796) 9.8 ug/mL 10.0-20.0 VANCOMYCIN DOSING BY RX PER DR. Kowalski PRIOR TO 4th DOSE ON 10/22/17 AT13: 30URINE [id number] 08:16:00 Test Item Value Reference Range Comments CULTURE (BEAKER) (test tngu=4355) No growth (MANUAL DIFFERENTIAL)2017-10-22 07:06:00 Test Item Value Reference Range Comments NEUTROPHILS - REL (DIFF) (BEAKER) (test iips=6575) 69 % LYMPHOCYTES - REL (DIFF) (BEAKER) (test icbm=9426) 27 % MONOCYTES - REL (DIFF) (BEAKER) (test kbdc=0096) 4 % NEUTROPHILS - ABS (DIFF) (BEAKER) (test xbyd=1936) 1.52 K/ L 1.80-8.00 LYMPHOCYTES - ABS (DIFF) (BEAKER) (test iuli=7509) 0.59 K/ L 1.48-4.50 MONOCYTES - ABS (DIFF) (BEAKER) (test hcmm=9637) 0.09 K/ L 0.00-1.30 TOTAL COUNTED (BEAKER) (test ksem=6834) 100 WBC MORPHOLOGY (BEAKER) (test eaxk=896) Normal PLT MORPHOLOGY (BEAKER) (test rdgp=719) Normal RBC MORPHOLOGY (BEAKER) (test sbyy=079) Normal COMPREHENSIVE METABOLIC [id number] 06:39:00 Test Item Value Reference Range Comments TOTAL PROTEIN (BEAKER) 6.8 gm/dL 6.0-8.5 (test fdoh=143) ALBUMIN (BEAKER) (test 3.7 g/dL 3.5-5.0 cesq=7200) ALKALINE PHOSPHATASE 111 U/L 30-115 (BEAKER) (test nppg=448) BILIRUBIN TOTAL (BEAKER) 0.3 mg/dL 0.1-1.2 (test ilqb=187) SODIUM (BEAKER) (test 138 meq/L 135-148 yluk=885) POTASSIUM (BEAKER) (test 3.9 meq/L 3.6-5.5 xkzg=474) CHLORIDE (BEAKER) (test 102 meq/L 98-106 pieg=043) CO2 (BEAKER) (test 28 meq/L 20-29 pajq=303) BLOOD UREA NITROGEN 9 mg/dL 10-26 (BEAKER) (test ucsl=086) CREATININE (BEAKER) (test 0.70 mg/dL 0.50-1.20 laib=376) GLUCOSE RANDOM (BEAKER) 85 mg/dL 70-110 (test isar=986) CALCIUM (BEAKER) (test 9.1 mg/dL 8.5-10.5 jxmx=449) AST (SGOT) (BEAKER) (test 141 U/L 5-40 kdkx=721) ALT (SGPT) (BEAKER) (test 276 U/L 5-50 wpfa=813) EGFR (BEAKER) (test 88 mL/min/1.73 sq m ESTIMATED GFR IS NOT ovmv=6481) ACCURATE CREATININE CLEARANCE IN PREDICTING GLOMERULAR FILTRATION RATE. ESTIMATED GFR IS NOT APPLICABLE FOR DIALYSIS PATIENTS. CBC W/PLT COUNT & AUTO [id number] 06:22:00 Test Item Value Reference Range Comments WHITE BLOOD CELL COUNT (BEAKER) (test mykt=539) 2.2 K/ L 4.0-10.0 RED BLOOD CELL COUNT (BEAKER) (test mkux=748) 3.12 M/ L 4.00-5.00 HEMOGLOBIN (BEAKER) (test yqtb=884) 9.7 GM/DL 12.0-15.0 HEMATOCRIT (BEAKER) (test uqgp=108) 28.5 % 36.0-45.0 MEAN CORPUSCULAR VOLUME (BEAKER) (test adll=072) 91.2 fL 82.0-99.0 MEAN CORPUSCULAR HEMOGLOBIN (BEAKER) (test 31.2 pg 27.0-33.0 wnlt=790) MEAN CORPUSCULAR HEMOGLOBIN CONC (BEAKER) (test 34.2 GM/DL 32.0-36.0 ltdi=945) RED CELL DISTRIBUTION WIDTH (BEAKER) (test 12.4 % 10.3-14.2 gjat=548) PLATELET COUNT (BEAKER) (test xjqp=670) 173 K/CU MM 150-430 MEAN PLATELET VOLUME (BEAKER) (test iyrp=987) 7.6 fL 6.5-10.5 NUCLEATED RED BLOOD CELLS (BEAKER) (test 0 /100 WBC 0-0 fxcy=074) HEPATIC FUNCTION [id number] 16:17:00 Test Item Value Reference Range Comments TOTAL PROTEIN (BEAKER) (test wtos=193) 6.3 gm/dL 6.0-8.5 ALBUMIN (BEAKER) (test psva=2374) 3.5 g/dL 3.5-5.0 BILIRUBIN TOTAL (BEAKER) (test efhd=341) 0.3 mg/dL 0.1-1.2 BILIRUBIN DIRECT (BEAKER) (test tsej=592) 0.2 mg/dL 0.0-0.4 ALKALINE PHOSPHATASE (BEAKER) (test bfed=847) 106 U/L 30-115 AST (SGOT) (BEAKER) (test luwu=928) 208 U/L 5-40 ALT (SGPT) (BEAKER) (test ddun=117) 286 U/L 5-50 CBC W/PLT COUNT & AUTO [id number] 06:13:00 Test Item Value Reference Range Comments WHITE BLOOD CELL COUNT (BEAKER) (test bitp=096) 2.9 K/ L 4.0-10.0 RED BLOOD CELL COUNT (BEAKER) (test rpot=994) 3.10 M/ L 4.00-5.00 HEMOGLOBIN (BEAKER) (test mhjj=914) 9.7 GM/DL 12.0-15.0 HEMATOCRIT (BEAKER) (test rbws=047) 28.3 % 36.0-45.0 MEAN CORPUSCULAR VOLUME (BEAKER) (test ehsc=096) 91.2 fL 82.0-99.0 MEAN CORPUSCULAR HEMOGLOBIN (BEAKER) (test 31.2 pg 27.0-33.0 hqnf=763) MEAN CORPUSCULAR HEMOGLOBIN CONC (BEAKER) (test 34.3 GM/DL 32.0-36.0 gueh=344) RED CELL DISTRIBUTION WIDTH (BEAKER) (test 12.3 % 10.3-14.2 ezgf=946) PLATELET COUNT (BEAKER) (test zumr=909) 178 K/CU MM 150-430 MEAN PLATELET VOLUME (BEAKER) (test htxk=158) 7.5 fL 6.5-10.5 NUCLEATED RED BLOOD CELLS (BEAKER) (test 0 /100 WBC 0-0 gomv=585) (MANUAL DIFFERENTIAL)2017-10-21 06:13:00 Test Item Value Reference Range Comments NEUTROPHILS - REL (DIFF) (BEAKER) (test yxno=2079) 76 % LYMPHOCYTES - REL (DIFF) (BEAKER) (test quxo=5013) 16 % MONOCYTES - REL (DIFF) (BEAKER) (test yrgf=8387) 5 % BANDS - REL (DIFF) (BEAKER) (test swwe=5343) 3 % 0-10 NEUTROPHILS - ABS (DIFF) (BEAKER) (test tnhx=4655) 2.20 K/ L 1.80-8.00 LYMPHOCYTES - ABS (DIFF) (BEAKER) (test biyd=0361) 0.46 K/ L 1.48-4.50 MONOCYTES - ABS (DIFF) (BEAKER) (test bxbt=6654) 0.15 K/ L 0.00-1.30 BANDS-ABS (DIFF) (BEAKER) (test grwg=3235) 0.1 K/ L 0.0-0.8 TOTAL COUNTED (BEAKER) (test noyb=9025) 100 BANDS + SEGMENTED NEUTROPHILS (BEAKER) (test 2.29 vgkf=7946) WBC MORPHOLOGY (BEAKER) (test puip=637) Normal PLT MORPHOLOGY (BEAKER) (test tvty=388) Normal RBC MORPHOLOGY (BEAKER) (test uhyj=815) Normal BASIC METABOLIC [id number] 05:25:00 Test Item Value Reference Range Comments SODIUM (BEAKER) (test 139 meq/L 135-148 jbqf=713) POTASSIUM (BEAKER) (test 3.7 meq/L 3.6-5.5 mizn=258) CHLORIDE (BEAKER) (test 104 meq/L 98-106 caef=522) CO2 (BEAKER) (test 27 meq/L 20-29 qpqq=540) BLOOD UREA NITROGEN 12 mg/dL 10-26 (BEAKER) (test lypr=844) CREATININE (BEAKER) (test 0.80 mg/dL 0.50-1.20 dyxi=439) GLUCOSE RANDOM (BEAKER) 77 mg/dL 70-110 (test atfh=236) CALCIUM (BEAKER) (test 8.5 mg/dL 8.5-10.5 kmjy=613) EGFR (BEAKER) (test 75 mL/min/1.73 sq m ESTIMATED GFR IS NOT cnvl=0643) ACCURATE CREATININE CLEARANCE IN PREDICTING GLOMERULAR FILTRATION RATE. ESTIMATED GFR IS NOT APPLICABLE FOR DIALYSIS PATIENTS. CT, BRAIN, WITHOUT [id number] 17:12:00Reason for exam:->headacheIs the patient ?->NoWhat is [...] MDReport Verified Date/Time: 10/20/2017 17:12:46 Reading Location: [facility] Radiology Reading Room Electronically signed by: HAILEY LUCAS M.D. on 05:12 PMCT, [id number] 09:17:00Reason for exam:->fever, constipation, abd discomfortIs the [...] MDReport Verified Date/Time: 10/20/2017 09:17:32 Reading Location: [facility] B1 [id number] Ortho Consult Reading Room RAD, CHEST, 2 [id number] 08:54:00Reason for exam:->FEVERFINAL REPORT Chest two views [...] MDReport Verified Date/Time: 2017 08:54:43 Reading Location: [facility] Radiology Reading Room HEPATIC FUNCTION [id number] 08:27:00 Test Item Value Reference Range Comments TOTAL PROTEIN (BEAKER) (test unqa=617) 8.1 gm/dL 6.0-8.5 ALBUMIN (BEAKER) (test sshr=1424) 4.4 g/dL 3.5-5.0 BILIRUBIN TOTAL (BEAKER) (test sdwm=471) 0.4 mg/dL 0.1-1.2 BILIRUBIN DIRECT (BEAKER) (test lbih=074) 0.2 mg/dL 0.0-0.4 ALKALINE PHOSPHATASE (BEAKER) (test svbi=473) 128 U/L 30-115 AST (SGOT) (BEAKER) (test xpqm=987) 88 U/L 5-40 ALT (SGPT) (BEAKER) (test aghl=858) 281 U/L 5-50 [id number] 08:24:00 Test Item Value Reference Range Comments LIPASE (BEAKER) (test xvxm=123) 42 U/L 6-51 BASIC METABOLIC [id number] 08:21:00 Test Item Value Reference Range Comments SODIUM (BEAKER) (test 133 meq/L 135-148 ihkv=962) POTASSIUM (BEAKER) (test 4.1 meq/L 3.6-5.5 esvn=139) CHLORIDE (BEAKER) (test 97 meq/L 98-106 snda=845) CO2 (BEAKER) (test 26 meq/L 20-29 wmfa=230) BLOOD UREA NITROGEN 17 mg/dL 10-26 (BEAKER) (test blke=352) CREATININE (BEAKER) (test 1.00 mg/dL 0.50-1.20 wcdo=283) GLUCOSE RANDOM (BEAKER) 99 mg/dL 70-110 (test hspj=083) CALCIUM (BEAKER) (test 9.3 mg/dL 8.5-10.5 pmch=973) EGFR (BEAKER) (test 58 mL/min/1.73 sq m ESTIMATED GFR IS NOT tnzf=2273) ACCURATE CREATININE CLEARANCE IN PREDICTING GLOMERULAR FILTRATION RATE. ESTIMATED GFR IS NOT APPLICABLE FOR DIALYSIS PATIENTS. LACTIC ACID, VENOUS, WHOLE [id number] 08:15:00 Test Item Value Reference Range Comments LACTATE BLOOD VENOUS (2) (BEAKER) (test 1.1 mmol/L 0.5-2.2 eyxq=8334) Effective 11/28/2015: Units/Reference Range ChangeNew: 0.5-2.2 mmol/L Previous: 5 -18 mg/dLCBC W/PLT COUNT & AUTO [id number] 08:11:00 Test Item Value Reference Range Comments WHITE BLOOD CELL COUNT (BEAKER) (test cvvl=178) 4.7 K/ L 4.0-10.0 RED BLOOD CELL COUNT (BEAKER) (test bzhd=531) 3.71 M/ L 4.00-5.00 HEMOGLOBIN (BEAKER) (test avva=225) 11.5 GM/DL 12.0-15.0 HEMATOCRIT (BEAKER) (test rxws=789) 33.7 % 36.0-45.0 MEAN CORPUSCULAR VOLUME (BEAKER) (test hwbf=489) 91.0 fL 82.0-99.0 MEAN CORPUSCULAR HEMOGLOBIN (BEAKER) (test 31.1 pg 27.0-33.0 uwli=024) MEAN CORPUSCULAR HEMOGLOBIN CONC (BEAKER) (test 34.2 GM/DL 32.0-36.0 ioic=359) RED CELL DISTRIBUTION WIDTH (BEAKER) (test 12.3 % 10.3-14.2 pncy=903) PLATELET COUNT (BEAKER) (test wovs=009) 245 K/CU MM 150-430 MEAN PLATELET VOLUME (BEAKER) (test oebc=498) 7.7 fL 6.5-10.5 NUCLEATED RED BLOOD CELLS (BEAKER) (test 0 /100 WBC 0-0 jpty=151) NEUTROPHILS RELATIVE PERCENT (BEAKER) (test 93 % ctbh=205) LYMPHOCYTES RELATIVE PERCENT (BEAKER) (test 2 % uhbs=788) MONOCYTES RELATIVE PERCENT (BEAKER) (test 5 % odun=527) EOSINOPHILS RELATIVE PERCENT (BEAKER) (test 0 % bejj=183) BASOPHILS RELATIVE PERCENT (BEAKER) (test 0 % xalt=560) NEUTROPHILS ABSOLUTE COUNT (BEAKER) (test 4.40 K/ L 1.80-8.00 cxdh=839) LYMPHOCYTES ABSOLUTE COUNT (BEAKER) (test 0.10 K/ L 1.48-4.50 kaxe=302) MONOCYTES ABSOLUTE COUNT (BEAKER) (test 0.20 K/ L 0.00-1.30 lfbc=018) EOSINOPHILS ABSOLUTE COUNT (BEAKER) (test 0.00 K/ L 0.00-0.50 qszu=485) BASOPHILS ABSOLUTE COUNT (BEAKER) (test 0.00 K/ L 0.00-0.20 xgdy=403) RAPID INFLUENZA A&B [id number] 07:58:00 Test Item Value Reference Range Comments RAPID INFLUENZA A AG (BEAKER) (test Negative Negative, Inconclusive jscs=5209) RAPID INFLUENZA B AG (BEAKER) (test Negative Negative, Inconclusive ebwu=2697) URINALYSIS W/ [id number] 07:55:00 Test Item Value Reference Range Comments COLOR (BEAKER) (test wpow=838) Yellow CLARITY (BEAKER) (test cvqb=381) Clear SPECIFIC GRAVITY UA (BEAKER) (test qctj=010) 1.015 1.001-1.035 PH UA (BEAKER) (test fidp=019) 6.0 5.0-8.0 PROTEIN UA (BEAKER) (test rngh=239) Negative Negative GLUCOSE UA (BEAKER) (test huyj=128) Negative Negative KETONES UA (BEAKER) (test npfs=937) Negative Negative BILIRUBIN UA (BEAKER) (test efog=174) Negative Negative BLOOD UA (BEAKER) (test oxdb=326) Trace Negative NITRITE UA (BEAKER) (test amtl=079) Negative Negative LEUKOCYTE ESTERASE UA (BEAKER) (test rgrw=326) Negative Negative UROBILINOGEN UA (BEAKER) (test ttuq=666) 0.2 mg/dL 0.2-1.0 BACTERIA (BEAKER) (test ubmm=416) Few MUCUS (BEAKER) (test vrek=2483) Few RBC UA-MANUAL (BEAKER) (test wmuw=7184) 5-10 /HPF WBC UA-MANUAL (BEAKER) (test fezr=2145) 5-10 /HPF SQUAMOUS EPITHELIAL MANUAL (BEAKER) (test <5 /HPF csll=0882) SOURCE(BEAKER) (test mbed=7120)
[2018-04-22] MEDS ORDERED: IPRATROPIUM BROM 0.5MG/2.5ML ONE (05:58)
[2018-04-22] MEDS ORDERED: ALBUTEROL 2.5 MG/3 ML NEB SOL ONE (05:58)
[2018-04-22 06:06] LABS: Absolute Lymphocytes (CBC) 1.2 K/uL (0.7-4.9); Absolute Monocytes 0.5 K/uL (0.1-1.3); Absolute Neutrophil 8.8 K/uL (1.8-8.0); Basophils % 0.9 % (0-1.3); Eosinophils % 0.3 % (0-4.4); Hematocrit 41.9 % (36.0-45.0); Lymphocytes % 11.2 % (15.3-44.8); MCH 32.9 pg (27.0-35.0); MPV 9.8 fL (7.6-11.3); Monocytes % 5.1 % (3.3-12.3); RBC Red Blood Cell Count 4.19 M/uL (3.86-4.86)
[2018-04-22 06:14] LABS: Protime INR 1.03
--- NOTE | 2018-04-22 06:24 | EDPHYS ---
Physician Documentation [facility] Name: Renate Gold Age: 53 yrs Sex: Female : 1965 Arrival Date: 04/22/2018 Time: 05:43 Bed 4 Private MD: ED Physician Brian Garsia HPI: 04/22 05:48 This 53 yrs old Female presents to ER via EMS with complaints of Shortness Of gs Breath. 05:48 The patient has shortness of breath at rest. Onset: The symptoms/episode began/occurred gs acutely, just prior to arrival, this morning. Duration: The symptoms are continuous, and are unchanged since they started. The patient's shortness of breath has no apparent modifying factors. Associated signs and symptoms: Pertinent positives: non-productive cough, dizziness. Severity of symptoms: At their worst the symptoms were severe in the emergency department the symptoms are unchanged. The patient has experienced similar episodes in the past, chronically. The patient has been recently been admitted at [facility], was discharged last week. 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 - bb Historical: - Allergies: 05:49 Ciprofloxacin; bb 05:49 Compazine; bb 05:49 Prochlorperazine Maleate; bb 05:49 Sulfa (Sulfonamide Antibiotics); bb - Home Meds: 05:49 albuterol sulfate 90 mcg/actuation Inhl HFAA 1 puff every 6 hours [Active]; bumetanide bb 1 mg Oral tab 1 tab 2 times per day [Active]; carvedilol 12.5 mg Oral tab 1 tab every 12 hours [Active]; docusate sodium 100 mg Oral cap 1 cap 2 times per day [Active]; guaifenesin 100 mg/5 mL Oral liqd QID PRN [Active]; Nephro-Uriel 0.8 mg Oral tab daily [Active]; sevelamer carbonate 800 mg Oral tab 1 tab 3 times per day [Active]; tramadol 50 mg Oral tab 2 tabs twice a day [Active]; - PMHx: 05:49 breast cancer-metastasized; Cancer to breast, lungs, bone and spine; CHF; COPD; ESRD; bb Pneumonia; Renal Disease; - PSHx: 05:49 Hysterectomy; ; Exploratory lap; Cholecystectomy; right breast sx; bb Appendectomy; dialysis port to right chest wall.; - Immunization history:: Adult Immunizations up to date. - Ebola Screening: : No symptoms or risks identified at this time. ROS: 05:48 All other systems are negative. gs Exam: 05:48 Head/Face: Normocephalic, atraumatic. Eyes: Pupils equal round and reactive to light, gs extra-ocular motions intact. Lids and lashes normal. Conjunctiva and sclera are non-icteric and not injected. Cornea within normal limits. Periorbital areas with no swelling, redness, or edema. ENT: Nares patent. No nasal discharge, no septal abnormalities noted. Tympanic membranes are normal and external auditory canals are clear. Oropharynx with no redness, swelling, or masses, exudates, or evidence of obstruction, uvula midline. Mucous membranes moist. Neck: Trachea midline, no thyromegaly or masses palpated, and no cervical lymphadenopathy. Supple, full range of motion without nuchal rigidity, or vertebral point tenderness. No Meningismus. Chest/axilla: Normal chest wall appearance and motion. Nontender with no deformity. No lesions are appreciated. 05:48 Constitutional: The patient appears alert, awake, in obvious distress, severely distressed. 05:48 Cardiovascular: Rate: tachycardic, Rhythm: regular, Pulses: no pulse deficits are appreciated, Edema: is not appreciated. 05:48 ECG was reviewed by the Attending Physician. 05:48 Respiratory: severe repiratory distress is noted, Respirations: accessory muscle usage, intercostal retractions, shallow respirations, tachypnea, Breath sounds: are clear throughout. Vital Signs: 05:49 BP 160 / 126; Pulse 116; Resp 26 S; Temp 90.4(A); Pulse Ox 89% on 15% Non-rebreather bb mask; Weight 40.82 kg (R); Height 5 ft. 3 in. (160.02 cm) (R); 05:56 BP 151 / 114; Pulse 108; Resp 32; Pulse Ox 89% ; bp 07:30 BP 129 / 71; Pulse 86; Resp 18; Temp 97.0; Pulse Ox 100% on R/A; sg 05:49 Body Mass Index 15.94 (40.82 kg, 160.02 cm) bb MDM: 05:43 Patient medically screened. gs 05:48 Differential diagnosis: CHF exacerbation, Chronic Obstructive Pulmonary Disease gs Myocardial Infarction Sepsis. Data reviewed: vital signs, nurses notes. Response to treatment: the patient's symptoms have markedly improved after treatment, and as a result, I will admit patient. 04/22 05:47 Order name: Basic Metabolic Panel 04/22 05:47 Order name: CBC with Diff 04/22 05:47 Order name: LFT's 04/22 05:47 Order name: Magnesium 04/22 05:47 Order name: NT PRO-BNP 04/22 05:47 Order name: PT-INR; Complete Time: 06:32 04/22 05:47 Order name: XRAY Chest (1 view) 04/22 05:47 Order name: Blood Culture Adult (2) 04/22 05:47 Order name: Lactate 04/22 05:47 Order name: Lipase 04/22 05:47 Order name: Procalcitonin 04/22 05:47 Order name: Urine Microscopic Only 04/22 06:20 Order name: ABG 04/22 07:03 Order name: Manual Differential EDFL 04/22 05:47 Order name: EKG; Complete Time: 05:48 04/22 05:47 Order name: Cardiac monitoring; Complete Time: 05:53 04/22 05:47 Order name: EKG - Nurse/Tech; Complete Time: 05:04/22 05:47 Order name: IV Saline Lock; Complete Time: 05:53 04/22 05:47 Order name: Labs collected and sent; Complete Time: 05:53 04/22 05:47 Order name: O2 Per Protocol; Complete Time: 05:53 04/22 05:47 Order name: O2 Sat Monitoring; Complete Time: 05:53 04/22 05:47 Order name: BIPAP 04/22 05:47 Order name: Accucheck; Complete Time: 05:54 04/22 05:47 Order name: Cardiac monitoring; Complete Time: 05:54 04/22 05:47 Order name: EKG - Nurse/Tech; Complete Time: 05:54 04/22 05:47 Order name: IV Saline Lock - Large Bore; Complete Time: 05:54 04/22 05:47 Order name: Labs collected and sent; Complete Time: 05:54 04/22 05:47 Order name: O2 Per Protocol; Complete Time: 05:54 gs 04/22 05:47 Order name: O2 Sat Monitoring; Complete Time: 05:54 gs EC:48 Rate is 117 beats/min. Rhythm is regular. ID interval is normal. QRS interval is gs normal. QT interval is normal. T waves are Normal. No ST changes noted. Clinical impression: Sinus tachycardia. Interpreted by me. Administered Medications: 05:53 Drug: Albuterol 2.5 mg Route: Inhalation; bp 05:53 Drug: AtroVENT Aerosol 0.5 mg Route: Inhalation; bp 06:30 Drug: hydrALAZINE 5 mg Route: IV; Rate: calculated rate; Site: left antecubital; bp 06:40 Drug: Zosyn 2.25 grams Route: IVPB; Infused Over: 60 mins; Site: left antecubital; bp 07:42 Follow up: Response: No adverse reaction; IV Status: Completed infusion sg 06:57 Not Given (Physician Discretion; CANCELLED BY DR WEBB): NS 0.9% 1000 ml IV at 1 bolus bp Per protocol; 1000 mL bolus 07:45 Drug: vancoMYCIN 1 grams Route: IVPB; Infused Over: 2 hrs; Site: left antecubital; sg Point of Care Testing: Blood Glucose: 05:57 Blood Glucose: 105 mg/dL; bp Ranges: Critical Glucose Levels:Adult <50 mg/dl or >400 mg/dl <40 mg/dl or >180 mg/dl Disposition: 04/22/18 06:23 Hospitalization ordered by Jeremiah Webb for Inpatient Admission. Preliminary diagnosis are Gram-negative sepsis, unspecified, Acute and chronic respiratory failure. - Bed requested for Telemetry/MedSurg (Inpatient). - Status is Inpatient Admission. sg - Condition is Stable. - Problem is an acute exacerbation. - Symptoms have improved. UTI on Admission? No Signatures: Dispatcher [employer] EDMS Aletha Armenta RN RN Joe Friedman RN RN Stephanie Sim RN RN bb Starr, Gregory, MD MD gs Peltier, Brian, RN RN bp Corrections: (The following items were deleted from the chart) 06:30 06:23 Hospitalization Ordered by Jeremiah Webb MD for Inpatient Admission. Preliminary diagnosis is Gram-negative sepsis, unspecified; Acute and chronic respiratory failure. Bed requested for Telemetry/MedSurg (Inpatient). Status is Inpatient Admission. Condition is Stable. Problem is an acute exacerbation. Symptoms have improved. UTI on Admission? No. gs 08:25 06:30 04/22/2018 06:23 Hospitalization Ordered by Jeremiah Webb MD for Inpatient sg Admission. Preliminary diagnosis is Gram-negative sepsis, unspecified; Acute and chronic respiratory failure. Bed requested for Telemetry/MedSurg (Inpatient). Status is Inpatient Admission. Condition is Stable. Problem is an acute exacerbation. Symptoms have improved. UTI on Admission? No. mw
--- NOTE | 2018-04-22 06:24 | ER ---
Nurse's Notes [facility] Name: Renate Gold Age: 53 yrs Sex: Female : 1965 Arrival Date: 04/22/2018 Time: 05:43 Bed 4 Private MD: Diagnosis: Gram-negative sepsis, unspecified;Acute and chronic respiratory failure Presentation: 04/22 05:44 Presenting complaint: EMS states: they were toned out for report of pt having shortness bb of breath on their arrival pt's O2 sat was 54% on her home concentrater they applied a NRB and sats worked up to 84%. Transition of care: patient was not received from another setting of care. Onset of symptoms was April 22, 2018 at 00:00. Risk Assessment: Do you want to hurt yourself or someone else? Patient reports no desire to harm self or others. Initial Sepsis Screen: Does the patient meet any 2 criteria? RR > 20 per min. Temp <36.0*C (96.8*F)) or > 38.3*C (100.4*F). HR > 90 bpm. Does the patient have a suspected source of infection? Yes: Other: dyspnea/pneumonia. Care prior to arrival: Medication(s) given: Albuterol Neb Atrovent Neb Glucose check: 104 Med neb given. Oxygen administered. via a non-rebreather mask. 05:44 Method Of Arrival: EMS: [facility] bb 05:44 Acuity: RICH 2 bb Triage Assessment: 05:56 General: Appears distressed, uncomfortable, emaciated. General: Behavior is bp cooperative, appropriate for age, agitated, anxious. Respiratory: Reports shortness of breath at rest on exertion cough that is productive, air hunger labored breathing the patient has severe shortness of breath. 05:57 Respiratory: Reports Breath sounds are diminished Breath sounds with wheezes Onset: The bp symptoms/episode began/occurred this morning. 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 N/A - bb Historical: - Allergies: 05:49 Ciprofloxacin; bb 05:49 Compazine; bb 05:49 Prochlorperazine Maleate; bb 05:49 Sulfa (Sulfonamide Antibiotics); bb - Home Meds: 05:49 albuterol sulfate 90 mcg/actuation Inhl HFAA 1 puff every 6 hours [Active]; bumetanide bb 1 mg Oral tab 1 tab 2 times per day [Active]; carvedilol 12.5 mg Oral tab 1 tab every 12 hours [Active]; docusate sodium 100 mg Oral cap 1 cap 2 times per day [Active]; guaifenesin 100 mg/5 mL Oral liqd QID PRN [Active]; Nephro-Uriel 0.8 mg Oral tab daily [Active]; sevelamer carbonate 800 mg Oral tab 1 tab 3 times per day [Active]; tramadol 50 mg Oral tab 2 tabs twice a day [Active]; - PMHx: 05:49 breast cancer-metastasized; Cancer to breast, lungs, bone and spine; CHF; COPD; ESRD; bb Pneumonia; Renal Disease; - PSHx: 05:49 Hysterectomy; ; Exploratory lap; Cholecystectomy; right breast sx; bb Appendectomy; dialysis port to right chest wall.; - Immunization history:: Adult Immunizations up to date. - Ebola Screening: : No symptoms or risks identified at this time. Screenin:49 Abuse screen: Denies threats or abuse. Denies injuries from another. Nutritional bp screening: No deficits noted. Tuberculosis screening: No symptoms or risk factors identified. Fall Risk None identified. Assessment: 05:46 General: Appears distressed, uncomfortable, emaciated, Behavior is cooperative, bp appropriate for age, agitated, anxious. Pain: Denies pain. Neuro: Level of Consciousness is awake, alert, obeys commands, Oriented to person, place, time, situation, Appropriate for age. Cardiovascular: Reports shortness of breath, Rhythm is sinus tachycardia. Respiratory: Airway is patent Respiratory effort is labored, gasping, with retractions, Respiratory pattern is symmetrical, tachypnea Breath sounds are diminished bilaterally. Breath sounds with wheezes bilaterally. Onset: The symptoms/episode began/occurred this morning. GI: No signs and/or symptoms were reported involving the gastrointestinal system. : No signs and/or symptoms were reported regarding the genitourinary system. EENT: No deficits noted. Derm: Skin is intact, is thin, with poor turgor Skin is dusky, Skin temperature is cold. Musculoskeletal: Circulation, motion, and sensation intact. Range of motion: intact in all extremities. 06:57 Reassessment: Dr. Webb came, assessed the patient and said the patient doesn't need IV cc3 fluid bolus as of the meantime and she needs hemodialysis and ICU admission. 08:15 Reassessment: Patient appears in no apparent distress at this time. pt reports having sg dialysis at about 4 days a week if she can tolerate it, done at home. Vital Signs: 05:49 BP 160 / 126; Pulse 116; Resp 26 S; Temp 90.4(A); Pulse Ox 89% on 15% Non-rebreather bb mask; Weight 40.82 kg (R); Height 5 ft. 3 in. (160.02 cm) (R); 05:56 BP 151 / 114; Pulse 108; Resp 32; Pulse Ox 89% ; bp 07:30 BP 129 / 71; Pulse 86; Resp 18; Temp 97.0; Pulse Ox 100% on R/A; sg 05:49 Body Mass Index 15.94 (40.82 kg, 160.02 cm) bb ED Course: 05:43 Patient arrived in ED. bb 05:43 Brian Garsia MD is Attending Physician. gs 05:43 Natanael Nolen, RN is Primary Nurse. bp 05:43 EKG done, by ED staff, reviewed by Brian Garsia MD. Inserted saline lock: 20 gauge in bp left antecubital area, using aseptic technique. Blood collected. O2 via BIPAP. 05:45 Initial lab(s) drawn, by me, First set of blood cultures drawn by me. bp 05:48 Triage completed. bb 05:49 Patient has correct armband on for positive identification. Bed in low position. Call bp light in reach. Side rails up X2. 05:49 Arm band placed on Patient placed in an exam room, on a stretcher, on personnel monitor, bb on pulse oximetry, RT at bedside for placement of Bipap. 05:54 Initial Neb Treatment Given as ordered Patient was instructed and evaluated on bp procedure. 06:04 X-ray completed. Portable x-ray completed in exam room. Patient tolerated procedure kw well. 06:05 XRAY Chest (1 view) In Process Unspecified. EDMS 06:23 Jeremiah Webb MD is Hospitalizing Provider. gs 06:42 Notified ED physician of a critical lab result(s). lactic acid of 6.4 Dr Garsia notified.bb 08:15 No provider procedures requiring assistance completed. Patient admitted, IV remains in sg place. intact, No redness/swelling at site. Administered Medications: 05:53 Drug: Albuterol 2.5 mg Route: Inhalation; bp 05:53 Drug: AtroVENT Aerosol 0.5 mg Route: Inhalation; bp 06:30 Drug: hydrALAZINE 5 mg Route: IV; Rate: calculated rate; Site: left antecubital; bp 06:40 Drug: Zosyn 2.25 grams Route: IVPB; Infused Over: 60 mins; Site: left antecubital; bp 07:42 Follow up: Response: No adverse reaction; IV Status: Completed infusion sg 06:57 Not Given (Physician Discretion; CANCELLED BY DR WEBB): NS 0.9% 1000 ml IV at 1 bolus bp Per protocol; 1000 mL bolus 07:45 Drug: vancoMYCIN 1 grams Route: IVPB; Infused Over: 2 hrs; Site: left antecubital; sg Point of Care Testing: Blood Glucose: 05:57 Blood Glucose: 105 mg/dL; bp Ranges: Outcome: 06:23 Decision to Hospitalize by Provider. 08:15 Admitted to Med/surg accompanied by tech, via stretcher, room 209, with oxygen, with sg chart, Report called to Ba GOFF 08:15 Condition: good 08:15 Instructed on the need for admit, safety practices, Demonstrated understanding of instructions. 08:25 Patient left the ED. sg Signatures: Dispatcher [employer] EDMS Joe Friedman RN RN sg Ballard, Brenda, RN RN bb Whitley, Kimberlee kw Starr, Gregory, MD MD gs Peltier, Brian RN RN Carolyn Franco cc3
[2018-04-22] MEDS ORDERED: HYDRALAZINE HCL 20 MG/ML VIAL ONE (06:32)
[2018-04-22] MEDS ORDERED: VANCOMYCIN 1 GM/250 ML BAG ONE (06:33)
[2018-04-22] MEDS ORDERED: PIPER/TAZO/NS 2.25gm 2.25 GM/50 ML BAG ONE (06:34)
[2018-04-22 06:44] LABS: Arterial Blood Carboxyhemoglob 1.7 % (0-1.5); Blood Gas Oxyhemoglobin 96.8 % (94-97); Blood O2 Saturation 99.5 % (92-98.5)
[2018-04-22 06:54] LABS: ALT/SGPT 32 U/L (12-78); AST/SGOT 43 U/L (15-37); Albumin 3.2 g/dL (3.4-5.0); Alkaline Phosphatase 94 U/L (45-117); BUN Blood Urea Nitrogen 59 mg/dL (7-18); Bicarbonate 19 mmol/L (21-32); Bilirubin Direct 0.3 mg/dL (0-0.2); Bilirubin Total 0.8 mg/dL (0.2-1.0); Glucose Level 232 mg/dL (74-106); Lipase 2134 U/L (73-393); Magnesium 2.5 mg/dL (1.8-2.4); NT PRO-BNP > 35000 pg/mL (<125); Potassium 5.4 mmol/L (3.5-5.1); Protein, Total 8.4 g/dL (6.4-8.2); Sodium Level 126 mmol/L (136-145)
[2018-04-22] MEDS ORDERED: NA CHLORIDE 0.9% 1,000 ML ONE (06:58)
[2018-04-22 07:03] LABS: Anisocytosis 1+; Blood Morphology Comment NOTED (NOT SEEN); Macrocytosis 1+; Platelet Estimate ADEQ
[2018-04-22] MEDS ORDERED: FUROSEMIDE 40 MG/4 ML VIAL IV ONE (07:24)
[2018-04-22] MEDS ORDERED: ACETAMINOPHEN 500 MG TAB PO PRN (07:26)
[2018-04-22] MEDS ORDERED: MAGNESIUM HYDROXIDE 8% 30 ML PO PRN (07:26)
[2018-04-22] MEDS ORDERED: ONDANSETRON 4 MG/2 ML VIAL IV PRN (07:26)
[2018-04-22] MEDS ORDERED: FUROSEMIDE 80 MG in NA CHLORIDE 0.9% 50 ML IV ONE (07:45)
--- NOTE | 2018-04-22 08:14 | RAD REPORT ---
EXAM DESCRIPTION: Cj Single View04/22/2018 6:06 am CLINICAL HISTORY: Shortness of breath COMPARISON: 04/10/2018 FINDINGS: Moderate bilateral pulmonary opacities are present. A small to moderate pleural effusions are seen. Central venous lines remain in place. The heart is normal size IMPRESSION: Moderate bilateral pulmonary opacities could represent pulmonary edema or pneumonia Small to moderate bilateral pleural effusions
--- NOTE | 2018-04-22 08:39 | EKG ---
Test Date: 2018-04-22 Test Time: 05:42:21 Insert Cutter: HIEN MEASUREMENT RESULTS: Intervals: Rate: 117 SD: 144 QRSD: 78 QT: 348 QTc: 485 [place]: P: 69 SD: 144 QRS: 67 T: 81 INTERPRETIVE STATEMENTS: Sinus tachycardia Otherwise normal ECG Compared to ECG 04/07/2018 02:57:42 T-wave abnormality no longer present Electronically Signed On 04-22-18 08:38:38 CDT by Yunior Gibbons
[2018-04-22] MEDS: ALBUTEROL 2.5 MG/3 ML NEB SOL NEB PRN ×2 (09:21→21:41)
[2018-04-22] MEDS: IPRATROPIUM BROM 0.5MG/2.5ML NEB PRN ×2 (09:21→21:41)
--- NOTE | 2018-04-22 09:29 | P.HP ---
Certification for Inpatient Patient admitted to: Inpatient With expected LOS: >2 Midnights Patient will require the following post-hospital care: None Practitioner: I am a practitioner with admitting privileges, knowledge of patient current condition, hospital course, and medical plan of care. Services: Services provided to patient in accordance with Admission requirements found in Title 42 Section 412.3 of the Code of Federal Regulations Patient History Date of Service: 04/22/18 Reason for admission: SOB History of Present Illness: Pt is a 53yo who comes into the hospital with shortness of breath. Patient has a history of breast cancer with metastasis. She has metastatic disease to the bone & the liver according to the . Patient has a history of end-stage renal disease on hemodialysis. Patient is on home dialysis and was really short of breath. Patient's chest x-ray shows some pulmonary edema patient was hypoxic and hypothermic. Patient's lactic acid level was elevated. Patient was admitted to the hospital for further evaluation. Allergies ciprofloxacin [From Cipro] Allergy (Unknown, Verified 04/02/18 13:39) Unknown ciprofloxacin HCl [From Cipro] Allergy (Unknown, Verified 04/02/18 13:39) Unknown Sulfa (Sulfonamide Antibiotics) Allergy (Unknown, Verified 04/02/18 13:39) Unknown Home Medications: Albuterol Sulfate [Ventolin Hfa] 1 puff IH Q6HP PRN 04/03/18 Carvedilol 12.5 mg PO BID 04/03/18 Folic Acid/Vitamin B Comp W-C [Nephro-Uriel Tablet] 0.8 mg PO DAILY 04/03/18 Sevelamer Carbonate 800 mg PO TID 04/03/18 traMADol HCL [Ultram*] 2 tab PO BID 04/03/18 Docusate [Colace Cap*] 100 mg PO BID #60 cap 04/05/18 guaiFENesin [Robitussin 100MG/5ML*] 5 ml PO QID PRN #200 ml 04/05/18 - Past Medical/Surgical History Has patient received pneumonia vaccine in the past: No Diabetic: No -: right breast sx removal of lump, and lymph nodes -: breast ca-metastasized, radiation, chemo stopped 03/2018 complications -: renal disease -: ESRD -: COPD -: hysterectomy -: -: expl lap, rk -: port a cath left chest wall -: gabbi right chest wall - Family History Mother Medical History: Diabetes, Cancer Notes: breast ca Father Medical History: Heart disease, Hypertension - Social History Smoking Status: Never smoker Alcohol use: No CD- Drugs: No Caffeine use: No Place of Residence: Home Review of Systems 10-point ROS is otherwise unremarkable Physical Examination - Vital Signs Temperature: 97.0 F Blood Pressure: 129/71 Pulse: 86 Respirations: 18 - Physical Exam General: Alert, In no apparent distress, Oriented x3 HEENT: Atraumatic, PERRLA, Mucous membr. moist/pink, EOMI, Sclerae nonicteric Neck: Supple, 2+ carotid pulse no bruit, No LAD, Without JVD or thyroid abnormality Respiratory: Crackles/rales, Expiratory wheezes Cardiovascular: Regular rate/rhythm, Normal S1 S2, Systolic murmur Gastrointestinal: Normal bowel sounds, Soft and benign, Non-distended, No tenderness Musculoskeletal: No clubbing, No tenderness, Swelling Integumentary: No rashes Neurological: Normal speech, Normal tone, Sensation intact, Cranial nerves 3-12 intact, Normal affect, Abnormal gait, Abnormal strength Lymphatics: No axilla or inguinal lymphadenopathy - Studies Laboratory Data (last 24 hrs) 04/22/18 05:45: PT 12.2, INR 1.03 04/22/18 05:45: WBC 10.7 D, Hgb 13.8 D, Hct 41.9 D, Plt Count 138 L D 04/22/18 05:45: Sodium 126 L, Potassium 5.4 H, BUN 59 H D, Creatinine 5.10 H*, Glucose 232 H, Magnesium 2.5 H, Total Bilirubin 0.8, AST 43 H, ALT 32, Alkaline Phosphatase 94, Lipase 2134 H Assessment & Plan - Problems (Diagnosis) (1) Metastatic breast cancer Current Visit: Yes Status: Acute (2) Hypoxemia Current Visit: Yes Status: Acute (3) Lactic acidosis Current Visit: Yes Status: Acute (4) CHF (congestive heart failure) Onset Date: 04/08/18 Current Visit: No Status: Acute Qualifiers: Heart failure type: systolic Heart failure chronicity: acute on chronic Qualified Code(s): I50.23 - Acute on chronic systolic (congestive) heart failure (5) Respiratory failure Onset Date: 04/05/18 Current Visit: No Status: Acute (6) ESRD (end stage renal disease) Onset Date: 04/05/18 Current Visit: No Status: Chronic (7) Acute pancreatitis Current Visit: Yes Status: Acute - Plan Plan: 1. Nephrology consultation 2. Hep-Lock IV 3. IV bicarb 4. IV diuresing-IVPB over 30 min 5. HD SHYAM 6. Discuss with patient regarding comfort measures 7. Monitor lipase 8. GI/DVT prophylaxis Discharge Plan: Home Plan to discharge in: Greater than 2 days - Advance Directives Does patient have a Living Will: No Does patient have a Durable POA for Healthcare: No - Code Status/Comfort Care Code Status Assessed: Yes Code Status: Full Code Critical Care: No Time Spent Managing PTS Care (In Minutes): 50
[2018-04-22] MEDS ORDERED: INFLUENZA VACCINE (for 3y+) 0.5 ML DOSE IMVAC ONE (10:00)
[2018-04-22] MEDS ORDERED: ALPRAZOLAM 0.25 MG TABLET PO ONE (10:33)
[2018-04-22] MEDS: SEVELAMER CARBONATE 800 MG TABLET PO SCH ×2 (11:33→16:17)
[2018-04-22] MEDS: ALBUMIN HUMAN 25% 50 ML IV SCH ×2 (11:40→13:23)
--- NOTE | 2018-04-22 15:00 | CON ---
Date of Consultation: 04/22/2018 Consulting Physician: Dr. Webb. Reason For Consultation: Elevated BUN, creatinine, hyperkalemia, hyponatremia over load. 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 The patient bein g dialyzed 4 times a week. According to her, yesterday, she had more shortness of breath. For that reason, started cutting on her fluid, but she has been drinking around 16 to 20 ounces a day. The pa darin came to the hospital. In the ER, found to be over volume hypoxemic. The patient was placed on BiPAP and we have been consulted. Lab show hyperkalemia and hyponatremia. Past Medical History: Includes, 1.Congestive heart failure, ejection fraction of 20%. 2.End-stage renal disease, secondary to acute kidney injury secondary to cardiorenal/TMA secondary t o chemotherapy. 3.Breast cancer with met. 4.COPD. Past Surgical History: Includes, 1.Hysterectomy. 2.. 3.Exploratory lap. 4.Mastectomy. 5.PermCath placement. Family History: Positive for diabetes and hypertension. Social History: Ex-smoker. Denied alcohol. Denied drug abuse. Review of Systems: Head and Neck: No red eye. No ear pain. GI: No nausea. No vomiting. : No polyuria. No dysuria. No hematuria. MARKETING DEVELOPMENT SPECIALIST: No vaginal discharge. Respiratory: Has shortness of breath. Cardiovascular: Has palpitation, chest tightness. Endocrine: No polydipsia. Skin: No rash. Neuro: Neuropathy. Musculoskeletal: Generalized body ache. Physical Examination: Vital Signs: When I saw the patient, blood pressure of 129/71, pulse of 86, afebrile. Chest: Crackles bilateral base. Heart: S1, S2. Systolic murmur. Abdomen: Soft, nontender. Extremities: No edema. Neuro: Alert and oriented x3. No focal. Laboratory Data: WBC 10.7, H and H 13.8/41.9, platelet of 138, sodium 126, potassium 5.4, bicarb 19, BUN 59, creatinine 5.1, calcium 8.4, magnesium 2.5, BNP 28338, lipase 2134, procalcitonin 0.9. ABG; pH 7.41, CO2 31, O2 206, base excess -4. Current Medications: Include albuterol, heparin, Lasix, sodium bicarb, breathing treatment, magnesiu m oxide. Assessment And Plan: 1.Acute kidney injury, oliguric, dialysis dependent, over volume with hyperkalemia. We will take th e patient for urgent dialysis today and we will dialyze her tomorrow. 2.Hyperkalemia. The patient is going to be dialyzed on low-potassium bath. 3.Hyponatremia. Going to be corrected on dialysis. 4.Congestive heart failure with over volume. The patient is going to be challenge today and tomorro w. 5.Chronic obstructive pulmonary disease. Follow up with the primary. 6.Acidosis secondary to renal failure and lactic acidosis secondary to poor perfusion. Will be dariel ected on dialysis. We will follow up. 7.Breast cancer. Follow up with Oncology as outpatient. Thank you, Dr. Mcleod for allowing us to participate in the care of your patient. ZIA Voice ID: [id number] Report ID: [id number]
--- NOTE | 2018-04-22 15:24 | PN ---
Date of Progress Note: 04/22/2018 Subjective: The patient seen and examined. Chart reviewed, and case discussed with RN and Dr. Yenni josue. The patient states that she still has some significant shortness of breath, feeling anxious. Review of Systems: Negative except as above. Medications: List reviewed. Objective: Vital Signs: Temperature 97, heart rate 86, blood pressure 129/71, respirations 18, O2 1 00% on 3 L nasal cannula. General: Awake, alert, oriented x3, in some mild respiratory distress. Ill-appearing, cachectic fem rita. BMI 15. CV: S1, S2. Regular rate and rhythm. Peripheral pulses present. Respiratory: Diminished breath sounds. Some crackles present. No wheezing or stridor. Gastrointestinal: Abdomen is soft, nontender, nondistended. Positive bowel sounds. No guarding or rigidity. Extremities: No clubbing, cyanosis, or edema. Neurologic: Nonfocal. Laboratory Data: Sodium 126, potassium 5.4, chloride 90, CO2 19, BUN 59, creatinine 5.1, glucose 232 , lactate 6.5, calcium 8.4, magnesium 2.5. BNP greater than 35,000. Procalcitonin 0.97. Lipase 213 4. WBC 10.7, H and H 13.8, 41.9, platelets 138, neutrophils 85%. ABG, pH 7.41, pCO2 31.5, PO2 206, bicarb 19. Blood cultures pending. Chest x-ray shows moderate bilateral pulmonary opacities. Assessment And Plan: A 53-year-old female with: 1.Shortness of breath. 2.Hypoxemia. 3.End-stage renal disease, on hemodialysis. 4.Congestive heart failure, systolic dysfunction, acute on chronic. 5.Lactic acidosis. 6.Hyperkalemia. 7.Acute pancreatitis. 8.Metastatic breast cancer. 9.Failure to thrive. BMI 15. 10.Chronic obstructive pulmonary disease, chronic bronchitis with chronic respiratory failure, on ho me oxygen. Plan: Nephrology on board. We will start on dialysis. Continue supplemental oxygenation. We will follow up on blood cultures. Continue IV antibiotics for sepsis, lactic acid, and procalcitonin elev ated. White blood cell count normal. UA is pending. Overall, the patient has a poor prognosis. /BIANCA Voice ID: [id number] Report ID: [id number]
[2018-04-22] MEDS: HEPARIN 5000 UNIT/ML 1 ML VIAL SQ SCH (16:17)
[2018-04-22 16:27] VITALS: BMI 15.5
[2018-04-22] MEDS: CARVEDILOL 12.5 MG TAB PO SCH (21:08)
[2018-04-22] MEDS: TRAMADOL HCL 50 MG TAB PO SCH (21:09)
[2018-04-22] MEDS: DOCUSATE NA 100 MG CAP PO SCH (21:09)
[2018-04-23 06:09] LABS: Absolute Lymphocytes (CBC) 0.3 K/uL (0.7-4.9); Absolute Monocytes 0.2 K/uL (0.1-1.3); Basophils % 0.9 % (0-1.3); Eosinophils % 0.7 % (0-4.4); Hematocrit 29.6 % (36.0-45.0); Lymphocytes % 12.6 % (15.3-44.8); MPV 9.6 fL (7.6-11.3); Monocytes % 9.1 % (3.3-12.3); RBC Red Blood Cell Count 3.05 M/uL (3.86-4.86)
[2018-04-23 06:42] LABS: ALT/SGPT 29 U/L (12-78); AST/SGOT 33 U/L (15-37); Albumin 3.1 g/dL (3.4-5.0); Alkaline Phosphatase 65 U/L (45-117); BUN Blood Urea Nitrogen 51 mg/dL (7-18); Bicarbonate 24 mmol/L (21-32); Bilirubin Total 0.6 mg/dL (0.2-1.0); Glucose Level 99 mg/dL (74-106); NT PRO-BNP > 35000 pg/mL (<125); Phosphorus 3.6 mg/dL (2.5-4.9); Potassium 4.5 mmol/L (3.5-5.1); Protein, Total 7.4 g/dL (6.4-8.2); Sodium Level 133 mmol/L (136-145); Troponin I 0.14 ng/mL (0.0-0.045)
--- NOTE | 2018-04-23 07:45 | RAD REPORT ---
EXAM DESCRIPTION: RAD - Chest Single View - 04/23/2018 6:20 am CLINICAL HISTORY: Dyspnea COMPARISON: April 22 TECHNIQUE: AP portable chest image was obtained 0607 hours . FINDINGS: Prominent interstitial opacities are present throughout the lung crabtree showing a slight i mprovement from the prior day study. No progressive lung parenchymal process suspected. Right-sided d ialysis catheter and left-sided Port-A-Cath remain in place. Small bilateral pleural effusions are st ill present. Heart size is within normal limits. Mild vascular engorgement seen. No pneumothorax. IMPRESSION: Partial clearing of the diffuse interstitial opacities since prior day imaging. Small bilateral pleural effusions similar to comparison.
[2018-04-23] MEDS: TRAMADOL HCL 50 MG TAB PO SCH ×2 (09:00→21:56)
[2018-04-23] MEDS: DOCUSATE NA 100 MG CAP PO SCH ×2 (09:23→21:55)
[2018-04-23] MEDS: SEVELAMER CARBONATE 800 MG TABLET PO SCH ×3 (09:23→17:50)
[2018-04-23] MEDS: CARVEDILOL 12.5 MG TAB PO SCH ×2 (09:24→21:56)
[2018-04-23] MEDS: HEPARIN 5000 UNIT/ML 1 ML VIAL SQ SCH (09:25)
[2018-04-23 09:29] LABS: Blood Morphology Comment NOT SEEN (NOT SEEN); Platelet Estimate DECR
[2018-04-23] MEDS ORDERED: ALPRAZOLAM 0.25 MG TABLET PO ONE (11:26)
[2018-04-23] MEDS ORDERED: ALPRAZOLAM 0.5 MG TABLET PO PRN (15:39)
--- NOTE | 2018-04-23 17:02 | PN ---
Date of Progress Note: 04/23/2018 Subjective: The patient is seen and examined. Chart reviewed and case discussed with RN and Dr. Maddison liriano. The patient going for dialysis again today. She states she feels better. Does complain of r ight groin nodule. Review of Systems: Negative except as above. Medications: List reviewed. Objective: Vital Signs: Temperature 97.7, heart rate 94, blood pressure 122/80, respirations 18, O2 99% on 2 L via nasal cannula. General: Awake, alert, oriented x3. Some mild distress. Appears older than stated age. A really c achectic female. BMI 15. CV: S1, S2. No murmurs. Peripheral pulses present. Respiratory: Diminished breath sounds, however, improving. No wheezing or crackles. Gastrointestinal: Abdomen is soft, nontender, nondistended. Positive bowel sounds. : The patient does have a mobile nodule on the right groin. Nontender. Extremities: No clubbing, cyanosis, edema. Neurologic: Nonfocal. Laboratory Data: Sodium 133, potassium 4.5, chloride 98, CO2 24, BUN 51, creatinine 3.7, glucose 99, lactate 1.2, calcium 7.8, phosphorus 3.6, magnesium 2. WBC 2.6; H and H 10.1, 29.6; platelets 86, n eutrophils 76%. Blood cultures, no growth to date. Chest x-ray, personally reviewed, shows partial clearing of the diffuse interstitial opacities since prior to the imaging. Small bilateral pleural e ffusions similar to comparison. Assessment And Plan: A 53-year-old female with: 1.Shortness of breath, improving secondary to pulmonary edema from congestive heart failure and end- stage renal disease. 2.Hypoxemia, improving on supplemental oxygen. The patient has chronic respiratory failure. 3.End-stage renal disease, on hemodialysis. Appreciate Dr. Wei's input. The patient is being dialyzed again today. 4.Congestive heart failure, systolic dysfunction, acute on chronic. We will continue to monitor I's and O's. Continue diuresis and significantly improved on chest x-ray. 5.Lactic acidosis. 6.Hyperkalemia, corrected. 7.Acute pancreatitis. 8.We will recheck lipase level. 9.Metastatic breast cancer. The patient's chemotherapy was discontinued by MD Beltre due to side effects to liver and heart. 10.Failure to thrive. BMI 15. 11.Chronic obstructive pulmonary disease, chronic bronchitis with chronic respiratory failure, on ho me oxygen. Plan: Planning may be SNF versus LTAC. The patient has had multiple readmissions recently, third ad mission this month. The patient was receiving dialysis at home 4 days a week, admitted to transition to SNF or LTAC. WILY Voice ID: [id number] Report ID: [id number]
[2018-04-23] MEDS: IPRATROPIUM BROM 0.5MG/2.5ML NEB PRN (21:40)
[2018-04-23] MEDS: ALBUTEROL 2.5 MG/3 ML NEB SOL NEB PRN (21:40)
--- NOTE | 2018-04-23 21:43 | RAD REPORT ---
EXAM DESCRIPTION: US - Extremity Nonvascular Complete - 04/23/2018 9:35 pm CLINICAL HISTORY: to evaluate right groin node Right groin swelling COMPARISON: Extrem Venous W Compress Gallo dated 04/02/2018 TECHNIQUE: Real-time sonographic evaluation of the area of interest was performed. FINDINGS: In the region of the right groin, an oblong structure is present measuring 3.5 x 1.5 x 2.3 cm. To and fro blood flow is seen within the lesion with a component of this lesion showing increase d echogenicity and no blood flow. The pattern is most compatible with a partially thrombosed pseudoan eurysm. IMPRESSION: Partially thrombosed pseudoaneurysm is suspected in the right groin area of interest.
--- NOTE | 2018-04-23 22:15 | PN ---
Date of Progress Note: 04/23/2018 Subjective: The patient was admitted with overload. Physical Examination: Vital Signs: Blood pressure of 139/92, pulse of 94. Chest: Faint crackles in the base. Heart: S1, S2. Systolic murmur. Abdomen: Soft, nontender. Extremities: No edema. Laboratory Data: WBC 2.6, H and H 10.1/29.6. Sodium 133, potassium 4.5, bicarb 24, BUN 51, creatini ne 3.7, calcium 7.8, and phosphorus 3.6. Medications: Current medications the patient is on include; 1.Docusate. 2.Carvedilol 12.5. 3.Renvela. 4.Tramadol. 5.Breathing treatment. 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 The pat uriel is going to be scheduled for another session of dialysis today. Then, tomorrow, she is going to get back to her schedule. We will continue to monitor the patient. I had long discussion with the patient regarding the option of treatment given the recurrent admission with congestive heart failure exacerbation between doing peritoneal dialysis or using next stage or daily dialysis. The patient n eeds to discuss it with her before she makes the final decision. We will follow up. 2.Hypertension, controlled, optimal. We will decrease carvedilol to try to utilize the blood pressu re for more ultrafiltration, and we will follow up. 3.Anemia of chronic kidney disease secondary to cancer. Continue to hold any AIDEE as her hemoglobin is stable. 4.Secondary hyperparathyroidism, stable. Continue Renvela. 5.Congestive heart failure, advanced, ejection fraction 15% to 20%. As above, we will try to establ mookie better volume control with the dialysis. 6.Cancer with metastasis. Follow up with Oncology. ROBYN/BIANCA Voice ID: [id number] Report ID: [id number]
[2018-04-24 06:36] LABS: Absolute Lymphocytes (CBC) 0.5 K/uL (0.7-4.9); Absolute Monocytes 0.3 K/uL (0.1-1.3); Absolute Neutrophil 2.8 K/uL (1.8-8.0); Basophils % 0.6 % (0-1.3); Eosinophils % 0.6 % (0-4.4); Hematocrit 31.6 % (36.0-45.0); Lymphocytes % 12.7 % (15.3-44.8); MCV 96.4 fL (80-100); MPV 8.9 fL (7.6-11.3); Monocytes % 8.5 % (3.3-12.3); RBC Red Blood Cell Count 3.28 M/uL (3.86-4.86)
[2018-04-24 06:56] LABS: Albumin 3.3 g/dL (3.4-5.0); Bilirubin Total 0.7 mg/dL (0.2-1.0); Potassium 5.3 mmol/L (3.5-5.1); Protein, Total 8.2 g/dL (6.4-8.2)
[2018-04-24] MEDS: TRAMADOL HCL 50 MG TAB PO SCH ×2 (08:26→21:00)
[2018-04-24] MEDS: SEVELAMER CARBONATE 800 MG TABLET PO SCH ×3 (08:26→16:51)
[2018-04-24] MEDS: HEPARIN 5000 UNIT/ML 1 ML VIAL SQ SCH (08:26)
[2018-04-24] MEDS ORDERED: ENSURE HIGH PROTEIN 237 ML CAN PO SCH (09:00)
[2018-04-24] MEDS: DOCUSATE NA 100 MG CAP PO SCH ×2 (09:00→21:54)
[2018-04-24] MEDS: CARVEDILOL 12.5 MG TAB PO SCH (09:00)
--- NOTE | 2018-04-24 11:58 | PN ---
Date of Progress Note: 04/24/2018 Subjective: The patient was admitted with overload. Yesterday was dialyzed. We managed to remove 1 600. The patient was placed on Xanax over the night. Her shortness of breath has been subsided. Th e patient is scheduled for her regular dialysis today. Objective: Vital Signs: Blood pressure 141/78, pulse of 101, afebrile. Chest: Clear to auscultation. Heart: S1, S2. Systolic murmur. Abdomen: Soft. Nontender. Extremity: No edema. Small aneurysm thrombosed on the right femoral. Laboratory Data: WBC 3.6, H and H 11.1/31.6, platelets of 90. Sodium 129, potassium 5.3, bicarb 22, BUN 80, creatinine 5.2, calcium 8.1. BNP above 35,000. Medications: Current medications the patient on include alprazolam 0.5 at bedtime, Renvela 1 tablet daily, Zofran, tramadol. 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 Also cardiore nal. I am going to arrange for dialysis today. Then we will skip tomorrow. We will continue the pa tient on Xanax to see if the patient sustained on 4 times a week. The patient will be able to contin ue with staff assist 4 times a week. If the patient failed on that I had long discussion with the pa darin in the presence of the that the patient may need to switch modality to next stage to be able to do daily dialysis to establish better volume control for the patient. The patient verbalize d understanding. 2.Hypertension, currently blood pressure been controlled. I am going to go ahead and decrease her c arvedilol to 3.125 to be able to establish better blood pressure during the dialysis as the patient t end to have low blood pressure during dialysis. 3.Hyponatremia, secondary to cardiorenal, dilutional, will be corrected with dialysis. 4.Hyperkalemia. The patient is going to be dialyzed on low-potassium bath. 5.Congestive heart failure ejection fraction of 20. We will try to establish better volume control with dialysis. 6.Cancer with metastasis. I had long discussion with the patient regarding her prognosis. The melissa ent has mental status, patient supposed to be scheduled for PET scan and follow up with her Oncology. The patient is going to be discussing her lay out helper prognosis with her oncologist Thursday and depend ing on that she is going to decide about if she wants to go with hospice or if she is going to need t o try chemotherapy again understanding that chemotherapy may make her permanently on hemodialysis. T he patient understands and agrees to take that risk if it is needed. 7.Small right aneurysm, femoral, thrombosed. The patient is going to get CT contrast. We will do d ialysis after the CT, and we will follow up the patient with the primary. 8.Anxiety as above. Continue Xanax. The patient overall poor prognosis. I discussed that with the patient and the by bedside verbalized understanding. Discussed with Dr. Blackburn, the primary hospitalist, agreed on the plan. We will follow up. Time spend 35 minutes. ZIA Voice ID: [id number] Report ID: [id number]
--- NOTE | 2018-04-24 12:27 | RAD REPORT ---
EXAM DESCRIPTION: - CT ANGIO ABD/PELVIS W CONTRAST - 04/24/2018 11:26 am CLINICAL HISTORY: Right leg pain, right groin pain, status post emergent vascular access procedure r ight groin, abnormal ultrasound COMPARISON: Ultrasound study April 23, CT imaging December 2013 TECHNIQUE: During dynamic enhancement using nonionic IV contrast, axial 3 millimeter thick images of the abdomen and pelvis obtained. Exam was performed has a CT angio study. Sagittal and coronal refor matted images were generated and reviewed using maximum intensity projection protocol. FINDINGS: Initial imaging shows cardiomegaly without pericardial thickening or effusion. Large left pleural effusion with atelectasis present. Moderate right pleural effusion present with less prominen t atelectasis. Lung crabtree are only partially imaged. No focal liver abnormality. Spleen is prominent without focal abnormality. No pancreatic acute findin g. Gallbladder is absent. Biliary tree within normal limits. No hydronephrosis present. Kidneys are g rossly normal. Exam protocol optimize is arterial early opacification. This limits solid abdominal vi scera assessment. No acute bowel finding. Moderately large stool volume throughout the colon. No peritoneal free air, f ree fluid or inflammatory stranding. No retroperitoneal acute process. No hernia, mass or bulky lymph adenopathy. No compression fracture or acute bony finding. There are sclerotic foci in the anterior T12 body and near the superior endplate L2. These are new from 2014. Punctate sclerotic foci are scattered in the lower thoracic and lumbar vertebrae as well as in the sacrum and each ileum. More prominent sclerotic areas are present in the left ilium near the SI joint and lateral superior iliac crest. Uterus is absent similar to the 2014 study. Left ovary is not clearly defined and is probably surgica lly absent. A 2.3 x 1.2 centimeter oval soft tissue mass (image 100/141) is probably right ovary. Thi s matches the 2014 study. No ascites, omental thickening or bulky lymphadenopathy. No intraperitoneal or retroperitoneal free air or free fluid. Along the inner table of the pelvis at the hip joint level there is a 4.0 x 1.7 centimeter soft tissu e mass density. This is new from 2014. The right pectineus muscle is enlarged at 3-4 times the size of the left pectineus muscle. There is a blush of contrast seen along the lateral and superior margin of the muscle belly indicating active i ntramuscular extravasation of contrast. Contrast has not reached the venous side of the circulatory s ystem. Common femoral artery is normally opacified. Anterior and medial to the right common femoral a rtery at the level of the DP artery of the thigh branch there is a 2 centimeter oval shaped mass in t he subcutaneous fat. This shows a blush of arterial contrast. No extension or communication with the common femoral artery is identified. There is a small superficial branch, possibly the superficial ex ternal pudendal artery or small muscular branch, that abuts the deep or posterior margin of this soft tissue mass. The soft tissue mass is the correlate to the ultrasound finding. No hematoma in the subcutaneous fatty tissues of the upper right thigh. IMPRESSION: A 2 centimeter pseudoaneurysm is present in the right groin arising from a small muscula r branch or superficial external pudendal artery. Common femoral artery is in close proximity to the pseudoaneurysm but is not the source. Right Pectineus muscle is enlarged 3-4 times the size of the normal left pectineus muscle with contra st blush indicating still active extravasation into the muscle belly. A 4 x 1.7 centimeter oval soft tissue mass is present along the inner table of the pelvis at the hip joint level. No evidence for active extravasation within this structure. This is new from 2014. This is possibly hemorrhagic material that extended into the pelvis related to the pectineus muscle injury . A separate discrete right ovary is identifiable and stable from 2014. Patient has multiple bony sclerotic foci from 2 mm to 2 cm in size new from 2014 study. These are vida picious for bony metastatic lesions. No malignant etiology is known and no etiology is evident on thi s study. Patient has large left-side and moderate right-sided pleural effusions only partially assessed on thi s study. Cardiomegaly is present.
[2018-04-24] MEDS: ALBUMIN HUMAN 25% 50 ML IV SCH (13:44)
--- NOTE | 2018-04-24 15:41 | P.PN ---
Subjective Date of Service: 04/24/18 Chief Complaint: SOB doing well except right groin pain Physical Examination - Vital Signs Temperature: 98.0 F Blood Pressure: 149/91 Pulse: 93 Respirations: 17 Pulse Ox (%): 96 - Physical Exam General: Alert, In no apparent distress HEENT: Atraumatic, PERRLA, EOMI Neck: Supple, JVD not distended Respiratory: Clear to auscultation bilaterally, Normal air movement Cardiovascular: Regular rate/rhythm, Normal S1 S2, Other (pulsating mass right groein) Gastrointestinal: Normal bowel sounds, No tenderness Musculoskeletal: No tenderness Integumentary: No rashes Neurological: Normal speech, Normal tone, Normal affect Lymphatics: No axilla or inguinal lymphadenopathy - Studies Medications List Reviewed: Yes Assessment And Plan - Current Problems (Diagnosis) (1) Acute pancreatitis Current Visit: Yes Status: Acute (2) Metastatic breast cancer Current Visit: Yes Status: Acute (3) CHF (congestive heart failure) Onset Date: 04/08/18 Current Visit: Yes Status: Acute Qualifiers: Heart failure type: systolic Heart failure chronicity: acute on chronic Qualified Code(s): I50.23 - Acute on chronic systolic (congestive) heart failure (4) Breast cancer Onset Date: 04/05/18 Current Visit: No Status: Chronic Qualifiers: Breast location: unspecified site of breast Estrogen receptor status: positive Patient sex: female Laterality: left Qualified Code(s): C50.912 - Malignant neoplasm of unspecified site of left female breast; Z17.0 - Estrogen receptor positive status [ER+] (5) ESRD (end stage renal disease) Onset Date: 04/05/18 Current Visit: No Status: Chronic - Plan cont HD today CTA of right groin r/o aneurysm May call [facility]
[2018-04-24 20:57] VITALS: O2SAT 100
[2018-04-24] MEDS ORDERED: CARVEDILOL 3.125 MG TAB PO SCH (21:00)
[2018-04-24 22:43] LABS: Absolute Lymphocytes (CBC) 0.4 K/uL (0.7-4.9); Absolute Monocytes 0.3 K/uL (0.1-1.3); Absolute Neutrophil 2.4 K/uL (1.8-8.0); Basophils % 0.9 % (0-1.3); Eosinophils % 0.5 % (0-4.4); Lymphocytes % 12.5 % (15.3-44.8); MCH 32.9 pg (27.0-35.0); MCV 97.5 fL (80-100); MPV 8.9 fL (7.6-11.3); Monocytes % 9.3 % (3.3-12.3); RBC Red Blood Cell Count 3.08 M/uL (3.86-4.86)
[2018-04-24 22:49] LABS: Protime INR 1.03
[2018-04-24 23:26] LABS: Albumin 3.8 g/dL (3.4-5.0); Bilirubin Total 0.6 mg/dL (0.2-1.0); Protein, Total 8.3 g/dL (6.4-8.2)
[2018-04-25 00:27] VITALS: BP 130/79; TEMP 98
--- NOTE | 2018-04-25 00:57 | P.DS ---
Discharge Date: 04/25/18 Disposition: TRANSFER TO [facility] Discharge Condition: FAIR Reason for Admission: SOB - Problems (1) Metastatic breast cancer Status: Acute (2) Hypoxemia Status: Acute (3) Lactic acidosis Status: Acute (4) CHF (congestive heart failure) Onset Date: 04/08/18 Status: Acute Qualifiers: Heart failure type: systolic Heart failure chronicity: acute on chronic Qualified Code(s): I50.23 - Acute on chronic systolic (congestive) heart failure (5) Respiratory failure Onset Date: 04/05/18 Status: Acute (6) ESRD (end stage renal disease) Onset Date: 04/05/18 Status: Chronic (7) Acute pancreatitis Status: Acute Brief History of Present Illness: Pt is a 53yo who comes into the hospital with shortness of breath. Patient has a history of breast cancer with metastasis. She has metastatic disease to the bone & the liver according to the . Patient has a history of end-stage renal disease on hemodialysis. Patient is on home dialysis and was really short of breath. Patient's chest x-ray shows some pulmonary edema patient was hypoxic and hypothermic. Patient's lactic acid level was elevated. Patient was admitted to the hospital for further evaluation. Hospital Course: After hemodialysis patient's symptoms improved. Patient was also given antibiotics and her fever resolved. She was clinically doing much better but she was having pain in her right groin region. They did a CT scan of that region which revealed a pseudoaneurysm along with extravasation of contrast into the muscle indicative of active arterial bleed. Patient was transferred to [facility] for higher level of care. Patient's hemoglobin was stable and patient was not orthostatics prior to discharge. Vital Signs/Physical Exam: Temp Pulse Resp BP Pulse Ox 98.0 F 93 H 18 130/79 98 04/25/18 00:00 04/25/18 00:00 04/25/18 00:00 04/25/18 00:00 04/25/18 00:00 General: Alert, In no apparent distress, Oriented x3 HEENT: Atraumatic, Normocephalic Respiratory: Clear to auscultation bilaterally, Normal air movement Integumentary: Tenderness/swelling (Around the right groin when region which is very mild tenderness) Laboratory Data at Discharge: WBC 3.1 K/uL (4.3-10.9) L 04/24/18 22:20 Hgb 10.1 g/dL (12.0-15.0) L 04/24/18 22:20 Hct 30.0 % (36.0-45.0) L 04/24/18 22:20 Plt Count 86 K/uL (152-406) L 04/24/18 22:20 PT 12.1 SECONDS (9.5-12.5) 04/24/18 22:20 INR 1.03 04/24/18 22:20 APTT 31.5 SECONDS (24.3-36.9) 04/24/18 22:20 Sodium 135 mmol/L (136-145) L 04/24/18 22:20 Potassium 4.0 mmol/L (3.5-5.1) 04/24/18 22:20 BUN 34 mg/dL (7-18) H D 04/24/18 22:20 Creatinine 3.00 mg/dL (0.55-1.3) H D 04/24/18 22:20 Glucose 86 mg/dL (74-106) 04/24/18 22:20 Phosphorus 3.6 mg/dL (2.5-4.9) 04/23/18 05:28 Magnesium 2.0 mg/dL (1.8-2.4) D 04/23/18 05:28 Total Bilirubin 0.6 mg/dL (0.2-1.0) 04/24/18 22:20 AST 32 U/L (15-37) 04/24/18 22:20 ALT 26 U/L (12-78) 04/24/18 22:20 Alkaline Phosphatase 69 U/L (45-117) 04/24/18 22:20 Troponin I 0.14 ng/mL (0.0-0.045) H 04/23/18 05:28 Lipase 1496 U/L (73-393) H 04/24/18 06:03 Home Medications: Albuterol Sulfate [Ventolin Hfa] 1 puff IH Q6HP PRN 04/03/18 Carvedilol 12.5 mg PO BID 04/03/18 Folic Acid/Vitamin B Comp W-C [Nephro-Uriel Tablet] 0.8 mg PO DAILY 04/03/18 Sevelamer Carbonate 800 mg PO TID 04/03/18 Docusate [Colace Cap*] 100 mg PO BID #60 cap 04/05/18 guaiFENesin [Robitussin 100MG/5ML*] 5 ml PO QID PRN #200 ml 04/05/18 Patient Discharge Instructions: Transfer to [facility] Diet: Renal Activity: Bedrest Time spent managing pt's care (in minutes): 60
== END 2018-04-25 00:55 | disposition short-term general hospital (02) | DRG 291 ==
LOC: ER 05:35 → ERHOLD 06:31 → 2ND 08:14
PROVIDERS: ADMIT Hospitalist; ATTEND Hospitalist
PROC: 5A09457 Assistance with Respiratory Ventilation, 24-96 Consecutive Hours, Continuous Positive Airway Pressure (ICD-10-PCS; principal; 2018-04-22)
PROC: 5A1D70Z Performance of Urinary Filtration, Intermittent, Less than 6 Hours Per Day (ICD-10-PCS; 2018-04-22)
PROC: 5A1D70Z Performance of Urinary Filtration, Intermittent, Less than 6 Hours Per Day (ICD-10-PCS; 2018-04-23)
PROC: 5A1D70Z Performance of Urinary Filtration, Intermittent, Less than 6 Hours Per Day (ICD-10-PCS; 2018-04-24)
DX: I13.2 Hypertensive heart and chronic kidney disease with heart failure and with stage 5 chronic kidney disease, or end stage renal disease (principal); J96.21 Acute and chronic respiratory failure with hypoxia; K85.90 Acute pancreatitis without necrosis or infection, unspecified; I50.23 Acute on chronic systolic (congestive) heart failure; N18.6 End stage renal disease; E87.2 Acidosis; C78.7 Secondary malignant neoplasm of liver and intrahepatic bile duct; C79.51 Secondary malignant neoplasm of bone; E87.1 Hypo-osmolality and hyponatremia; N17.9 Acute kidney failure, unspecified; Z68.1 Body mass index [BMI] 19.9 or less, adult; N25.81 Secondary hyperparathyroidism of renal origin; C50.919 Malignant neoplasm of unspecified site of unspecified female breast; Z88.1 Allergy status to other antibiotic agents; Z88.2 Allergy status to sulfonamides; Z88.8 Allergy status to other drugs, medicaments and biological substances; J44.9 Chronic obstructive pulmonary disease, unspecified; Z99.2 Dependence on renal dialysis; E87.5 Hyperkalemia; R62.7 Adult failure to thrive; D63.1 Anemia in chronic kidney disease; Z99.81 Dependence on supplemental oxygen; I72.4 Aneurysm of artery of lower extremity; F41.9 Anxiety disorder, unspecified; Z17.0 Estrogen receptor positive status [ER+]
CPT/HCPCS: 36415; 71045; 74174; 76881; 80048; 80053; 80076; 82805; 82962; 83605; 83690; 83735; 83880; 84100; 84145; 84484; 85025; 85610; 85730; 86850; 86900; 86901; 87040; 90935; 93005; 94640; 94660; 96365; 96375; 99285; G0008; J0360; J1644; J2543; J3370; J7030; P9047; Q2035; Q9967

== ENCOUNTER 2018-05-03 01:28 | Inpatient (IN) | payer OTHER ==
--- OUTSIDE RECORDS SUMMARY | 2018-05-03 01:31 | XMS REPORT | Clinical Summary ---
:1965 Author Organization [facility] Address [address] [place] [address] Phone Care Team Providers Name Role Phone [...] chemotherapy. Prevention of Chemotherapy-Induced Nausea and Vomiting melatonin 3 mg Tab Take 3 mg [...] times daily with meals for 90 days. losartan (COZAAR) 25 Take 1 tablet (25 30 tablet 0 Active MG tablet mg total) by 8 018 mouth daily for 30 days. traMADol (ULTRAM) 50 Take 1 tablet (50 30 tablet 0 Active mg tablet mg total) by 8 018 mouth 2 (two) times daily for 30 days. Max Daily Amount: 100 mg rosuvastatin Take 10 mg by Discontinued [...] (REMERON) 15 MG mouth nightly. 018 tablet SUMAtriptan 1 tab PO at onset 9 tablet 0 Discontinued (IMITREX) 50 MG of headache; december 01 018 tablet repeat in 2 hours if needed (maximum daily [id number]). traMADol (ULTRAM) 50 Take 50 mg by [...] needed for up to liquid 10 days. bumetanide (BUMEX) 1 Take 1 tablet (1 60 tablet 0 Discontinued MG tablet mg total) by 8 018 mouth 2 (two) times daily for 30 days. albuterol HFA Inhale 1 puff by 1 Inhaler 0 (VENTOLIN HFA) 90 mouth via inhaler 8 018 mcg/actuation every 6 (six) inhaler hours as needed for Wheezing or Shortness of Breath for up to 30 days. traMADol (ULTRAM) 50 Take 2 tablets 30 tablet 0 mg tablet (100 mg total) by 8 018 mouth 2 (two) times daily for 10 days. Max Daily Amount: 200 mg traMADol (ULTRAM) 50 Take 1 tablet (50 30 tablet 0 Discontinued mg tablet mg total) by 8 018 mouth 2 (two) times daily for 30 days. 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 Demand ischemia (HCC) 03/18/2018 Systolic CHF, acute on chronic (HCC) EF 30 % 03/18/2018 Thrombocytopenia (HCC) 03/17/2018 Acute renal failure (ARF) ([facility]) 03/16/2018 Symptomatic anemia 03/16/2018 Metabolic acidosis 03/16/2018 Troponin level elevated 03/16/2018 Community acquired bacterial pneumonia 03/16/2018 Fever 12/11/2017 Metastatic breast cancer (HCC) 12/11/2017 Sepsis due to undetermined organism without resultant organ failure (HCC) Headache syndrome 10/21/2017 Other neutropenia ([facility]) 10/21/2017 Resolved Problems Problem Noted Date Resolved Date Sepsis (HCC) 10/20/2017 12/09/2017 Abnormal LFTs (liver function tests) 10/20/2017 12/09/2017 Encounters Date Type Specialty Care Team Description 04/28/2018 Orders Only General Internal Medicine 04/25/2018 - Hospital Cardiology Callum Cali MD Metastatic breast 04/29/2018 Encounter Rama Tavares MD ([facility]);Pseudoaneurysm [place], of femoral artery MD Joe ([facility]);Systolic CHF, acute on chronic (HCC);Thrombotic microangiopathy (HCC);Thrombocytopenia (HCC);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 Orders Only General Internal Medicine 03/17/2018 - Hospital General Internal William Wren MD Metabolic acidosis [...] 03/17/2018 Telephone Critical Care William Wren MD [id number] Call Medicine 03/16/2018 - [facility] General Internal Taya, Luis Fernando Ragsdale, Symptomatic anemia 03/17/2018 Encounter Medicine (Primary Andrew Pretty Dx);Aki Enciso MD weakness;Essential hypertension;Cough;Sandi halley malignant neoplasm of breast with metastasis to other site, unspecified laterality (HCC);Acute renal failure, unspecified acute renal failure type (HCC);Dehydration;Comm unity acquired bacterial pneumonia;Troponin level elevated 12/08/2017 - [facility] General Internal Bosseda Norberto Fever, unspecified 12/12/2017 Encounter Medicine MD Martin fever cause (Primary Andrew Pretty Dx);LeukopeniaFernie MD unspecified type;Hyponatremia;Schneider static breast cancer (HCC);Sepsis due to undetermined organism without resultant organ failure (HCC) 10/20/2017 - [facility] General Internal Siva Wai Lucas, Fever, unknown origin 10/23/2017 Encounter Medicine (Primary Dx);On Andrew Pretty antineoplastic MD Fernie chemotherapy;Other specified hypotension;Generalize d headache;Abnormal LFTs (liver function tests);Sepsis, due to unspecified organism (HCC);Headache syndrome;Other neutropenia (HCC) after 05/02/2017 Family History Medical History Relation Name Comments Cancer Father Diabetes Father Diabetes Mother Relation Name Status Comments Father Mother Social History Tobacco Use Types Packs/Day Years Used Date Former Smoker 0.5 15 Smokeless Tobacco: Never Used Alcohol Use Drinks/Week oz/Week Comments No Sex Assigned at Date Recorded Not on file Last Filed Vital Signs Vital Sign Reading Time Taken Blood Pressure 132/79 04/29/2018 3:42 PM CDT Pulse 92 04/29/2018 3:42 PM CDT Temperature 36.7 C (98.1 F) 04/29/2018 3:42 PM CDT Respiratory Rate 20 04/29/2018 3:42 PM CDT Oxygen Saturation 100% 04/29/2018 3:42 PM CDT Inhaled Oxygen Concentration - - Weight 40.2 kg (88 lb 11.2 oz) 04/29/2018 3:45 AM CDT Height 160 cm (5' 3") 03/18/2018 12:00 AM CDT Body Mass Index 15.71 04/29/2018 3:45 AM CDT Plan of Treatment Not on file Implants Implanted Type Area Reel Slitter Device Expiration Model / Identifier Date Serial / Lot Port,Mri Powerport Isp 6fr Chronoflex W/Suture Plugs - [id number] Catheter C R BARD 05/26/2015 [id number] / Implanted: Qty: 1 on 04/28/2014 by Luly Escalante Ports/[employer] PERIPHERAL [id number] / l Line [id number] Procedures Procedure Name Priority Date/Time Associated Diagnosis Comments CRITICAL CARE Routine 03/16/2018 11:25 AM Results for this CDT procedure are in the results section. after 05/02/2017 Results RHYTHM STRIP - SCAN (04/30/2018 11:30 AM)Only the most recent of4 resultswithin the time period is included.ECHOCARDIOGRAM REPORT - SCAN (04/29/2018 3:50 PM) Only the most recent of2 resultswithin the time period is included.Arterial doppler legs bilateral (04/29/2018 1:30 PM) Component Value Ref Range Ejection Fraction Specimen Performing Laboratory [facility] ECHO HEARTLAB MKCKESSON CPACS Impressions Right Impression 1. Post thrombin injection there is no pseudoaneurysm visualized. 2. There are two non-vascular structure in the groin 1st measuring 0.93cm X1.06cm and 2nd measuring 2.06cm X2.74cm. 3. There is no venous obstruction or arteriovenous fistula visualized. 4. The common femoral artery is patent with a velocity of 68/18 cm/sec. (within normal range). Left Impression 1. There is no pseudoaneurysm visualized. 2. There is no hematoma visualized. 3. There is no venous obstruction or arteriovenous fistula visualized. 4. The common femoral is patent with a velocity of 69/18 cm/sec. (within normal range). Conclusions Summary Duplex imaging of the right and left groin area was performed. The vessels were adequately visualized. On the right, S/P thrombin injection there was no evidence of a pseudoaneurysm where visualized. There were two non-vascular structure in the groin 1st measuring 0.93cm X1.06cm and 2nd measuring 2.06cm X2.74cm. On the left there was no evidence of a pseudoaneurysm in the groin area. Signature Velocities are measured in cm/s ; Diameters are measured in cm Narrative [facility] - Pseudoaneurysm Survey Demographics Patient Name Esthela GOLD of Study 04/29/2018 ADAN [id number] Age 53 Visit Number [id number] Gender Female Accession Number [id number] [facility] 1965 [facility] Number [id number] Physician SonographerNatanael Schuster. Luis Fernando Saxena MD, RVTPhysician ELGINVI Procedure Type of Study: Extremities Arteries: Lower Extremities Arterial Duplex, ARTERIAL DOPPLER LEGS, BILATERAL. Pseudoaneurysm: PSEUDOANEURYSM, GROIN DOPPLER BILATERAL. Indications for Study:Check Injection Site . Patient Status:STAT. Study Location:Portable. Technical Quality:Adequate visualization. Risk Factors History of Disease + + + + !Diagnosis!Date!Comments ! + + + + !History/Risk Factors:!04/25/2018!S/P right groin invasive line removal OSH! ! !!Right groin bruit! + + + + !Other!!S/P Thrombin Injection ! + + + + Procedure Note Interface, External Ris In - 04/29/2018 4:53 PM CDT [facility] - Pseudoaneurysm Survey Demographics Patient Name RAVEN GOLD Date of Study 04/29/2018 ADAN Age 53 Visit Number [id number] Gender Female Accession Number [id number] Date of 1965 Referring Zack Lockwood MD Room Number 1138 Physician Job Service Consultant Natanael Gomez Interpreting Ho Saxena MD, RVT Physician RPVI Procedure Type of Study: Extremities Arteries: Lower Extremities Arterial Duplex, ARTERIAL DOPPLER LEGS, BILATERAL. Pseudoaneurysm: PSEUDOANEURYSM, GROIN DOPPLER BILATERAL. Indications for Study:Check Injection Site . Patient Status:STAT. Study Location:Portable. Technical Quality:Adequate visualization. Risk Factors History of Disease + + + + !Diagnosis !Date !Comments ! + + + + !History/Risk Factors:!04/25/2018!S/P right groin invasive line removal OSH! ! ! !Right groin bruit ! + + + + !Other ! !S/P Thrombin Injection ! + + + + Impressions Right Impression 1. Post thrombin injection there is no pseudoaneurysm visualized. 2. There are two non-vascular structure in the groin 1st measuring 0.93cm X1.06cm and 2nd measuring 2.06cm X2.74cm. 3. There is no venous obstruction or arteriovenous fistula visualized. 4. The common femoral artery is patent with a velocity of 68/18 cm/sec. (within normal range). Left Impression 1. There is no pseudoaneurysm visualized. 2. There is no hematoma visualized. 3. There is no venous obstruction or arteriovenous fistula visualized. 4. The common femoral is patent with a velocity of 69/18 cm/sec. (within normal range). Conclusions Summary Duplex imaging of the right and left groin area was performed. The vessels were adequately visualized. On the right, S/P thrombin injection there was no evidence of a pseudoaneurysm where visualized. There were two non-vascular structure in the groin 1st measuring 0.93cm X1.06cm and 2nd measuring 2.06cm X2.74cm. On the left there was no evidence of a pseudoaneurysm in the groin area. Signature Velocities are measured in cm/s ; Diameters are measured in cm 2D Echo W/Doppler(CW/PW/Color) (04/29/2018 11:06 AM)Only the most recent of2 resultswithin the time period is included. Component Value Ref Range Ejection Fraction Specimen Performing Laboratory [facility] ECHO HEARTLAB MKCKESSON CPACS Narrative Transthoracic Echocardiography Report (TTE) Demographics Patient Name GABY GOLDADate of Study 04/29/2018 ADAN [id number] Gender Female Visit Number [id number] RaceCaucasian [id number] Number [id number] Number Date 1965 Referring Physician Age53 year(s) Job Service Consultant Ilsa Reyes, TABITHA, RDCS,RVT,RDMS AnalystMailyn InterpretingRaMD Reanna Prieto Physician Procedure Type of Study TTE procedure:2DECHO W DOPPLER(CW/PW/COLOR) (SHYAM) Indications:Shortness of breath. Clinical History BREAST CANCER, CHF, ESRD, HLD Height: 63 inches Weight: 39.92 kg (88 lbs) BSA: 1.36 m^2 BMI: 15.59 kg/m^2 HR: 94 bpm BP: 141/49 mmHg Summary Sinus tachycardia during the exam. The left ventricle is chamber size (by PSLAX dimension) is normal (male - LVIDd 4.2-5.8cm) . Normal LV wall thickness. The mid anterior and inferior and inferolateral tong are akinetic. The other segments are hypokinetic. LVEF by Franklin's method of disk assessment is severely reduced (25-29%) . Grade 2 diastolic dysfunction (moderately increased LA pressure). Low (cardiac index <2 L/min/m2) cardiac output state at rest is noted. Small pericardial effusion posterior to the LV The estimated RA pressure by IVC dynamics 10-15 mmHg . A left pleural effusion is noted. Mild tricuspid regurgitation. Estimated peak systolic PA pressure is 65-70 mmHg . Signature Findings Rhythm/BPSinus tachycardia during the exam. Left Ventricle The left ventricle is chamber size (by PSLAX dimension) is normal (male - LVIDd 4.2-5.8cm) . Normal LV wall thickness. The mid anterior and inferior and inferolateral tong are akinetic. The other segments are hypokinetic. LVEF by Franklin's method of disk assessment is severely reduced (25-29%) . Grade 2 diastolic dysfunction (moderately increased LA pressure). Low (cardiac index <2 L/min/m2) cardiac output state at rest is noted. Left AtriumLA size is normal (16-34 ml/m2) . Right VentricleRV chamber size is normal . Global RV systolic function is depressed . Right Atrium RA size is normal. Aortic Valve Normal AoV structure. Mitral Valve Mild MV leaflet thickening. Moderate mitral regurgitation. MR severity is difficult to determine due to jet eccentricity .(vena contracta 5mm) Tricuspid ValveMild tricuspid regurgitation. Estimated peak systolic PA pressure is 65-70 mmHg . Pulmonic Valve Normal PV structure and function by limited views and Doppler. Mild pulmonary regurgitation. AortaAortic root size (SInus of Valsalva diameter) is normal . Proximal ascending aorta size is normal . PericardiumSmall pericardial effusion posterior to the LV IVC/SVC/PA/PV/PleuralThe estimated RA pressure by IVC dynamics 10-15 mmHg . A left pleural effusion is noted. Chambers/Structures Left Atrium LA Volume: 46.9 mlLA Area: 18.05 cm^2 LA Vol. Index: 34 ml/m^2 Left Ventricle LVIDd: 4.12 cm LVIDs: 3.46 cm LV Septum Diastolic: 1.09 cm LV PW Diastolic: 0.9 cm LV FS: 16 % LVEDV Franklin's:100.77 ml LVESV Franklin's:74.25 mlLVEDVI: 74 ml/ m^2 LVEF Franklin's: 26.3 %LVESVI: 55 ml/m^2 LVOT Diameter: 1.76 cm Right Atrium RA Vol. (Sngl Plane): 24.44 ml Right Ventricle TAPSE: 1.57 cm Aorta Ao Root S of Falguni.: 2.6 cm Ascending Aorta: 2.9 cm Doppler/Quantitative Measurements Mitral Valve MV Peak E-Wave: 1.13 m/sMV Peak A-Wave: 0.58 m/s E/A Ratio: 1.96 Peak Gradient: 5.12 mmHg Deceleration Time: 105 msec MV Felix. Peak: Aortic Valve Peak Velocity: 1.32 m/sMean Velocity: 0.88 m/s Peak Gradient: 7.02 mmHg Mean Gradient: 3.56 mmHg AV Area (continuity): 1.5 cm^2 AV VTI: 17.98 cm AV DVI: 0.62 LVOT Peak Velocity: 0.86 m/s Peak Gradient: 2.94 mmHg Mean Velocity: 0.5 m/sMean Gradient: 1.23 mmHg LVOT Diameter: 1.76 cmLVOT VTI: 11.12 cm LVOT Area: 2.43 cm^2LVOT SV:27.04 ml LVOT CO: 2.54 l/min LVOT CI: 1.87 l/min/m^2 Tricuspid Valve TR Velocity: 3.8 m/s TR Gradient: 57.86 mmHg Procedure Note Interface, External Ris In - 04/29/2018 3:28 PM CDT Transthoracic Echocardiography Report (TTE) Demographics Patient Name RAVEN GOLD Date of Study 04/29/2018 ADAN Gender Female Visit Number [id number] Race Room Number 1138 Number Date of 1965 Referring Physician Age 53 year(s) Job Service Consultant TABITHA Pak, RDCS,RVT,RDMS Content Specialist Emilee Interpreting MD Reanna Garcia Physician Procedure Type of Study TTE procedure:2DECHO W DOPPLER(CW/PW/COLOR) (SHYAM) Indications:Shortness of breath. Clinical History BREAST CANCER, CHF, ESRD, HLD Height: 63 inches Weight: 39.92 kg (88 lbs) BSA: 1.36 m^2 BMI: 15.59 kg/m^2 HR: 94 bpm BP: 141/49 mmHg Summary Sinus tachycardia during the exam. The left ventricle is chamber size (by PSLAX dimension) is normal (male - LVIDd 4.2-5.8cm) . Normal LV wall thickness. The mid anterior and inferior and inferolateral tong are akinetic. The other segments are hypokinetic. LVEF by Franklin's method of disk assessment is severely reduced (25-29%) . Grade 2 diastolic dysfunction (moderately increased LA pressure). Low (cardiac index <2 L/min/m2) cardiac output state at rest is noted. Small pericardial effusion posterior to the LV The estimated RA pressure by IVC dynamics 10-15 mmHg . A left pleural effusion is noted. Mild tricuspid regurgitation. Estimated peak systolic PA pressure is 65-70 mmHg . Signature Findings Rhythm/BP Sinus tachycardia during the exam. Left Ventricle The left ventricle is chamber size (by PSLAX dimension) is normal (male - LVIDd 4.2-5.8cm) . Normal LV wall thickness. The mid anterior and inferior and inferolateral tong are akinetic. The other segments are hypokinetic. LVEF by Franklin's method of disk assessment is severely reduced (25-29%) . Grade 2 diastolic dysfunction (moderately increased LA pressure). Low (cardiac index <2 L/min/m2) cardiac output state at rest is noted. Left Atrium LA size is normal (16-34 ml/m2) . Right Ventricle RV chamber size is normal . Global RV systolic function is depressed . Right Atrium RA size is normal. Aortic Valve Normal AoV structure. Mitral Valve Mild MV leaflet thickening. Moderate mitral regurgitation. MR severity is difficult to determine due to jet eccentricity .(vena contracta 5mm) Tricuspid Valve Mild tricuspid regurgitation. Estimated peak systolic PA pressure is 65-70 mmHg . Pulmonic Valve Normal PV structure and function by limited views and Doppler. Mild pulmonary regurgitation. Aorta Aortic root size (SInus of Valsalva diameter) is normal . Proximal ascending aorta size is normal . Pericardium Small pericardial effusion posterior to the LV IVC/SVC/PA/PV/Pleural The estimated RA pressure by IVC dynamics 10-15 mmHg . A left pleural effusion is noted. Chambers/Structures Left Atrium LA Volume: 46.9 ml LA Area: 18.05 cm^2 LA Vol. Index: 34 ml/m^2 Left Ventricle LVIDd: 4.12 cm LVIDs: 3.46 cm LV Septum Diastolic: 1.09 cm LV PW Diastolic: 0.9 cm LV FS: 16 % LVEDV Franklin's:100.77 ml LVESV Franklin's:74.25 ml LVEDVI: 74 ml/m^2 LVEF Franklin's: 26.3 % LVESVI: 55 ml/m^2 LVOT Diameter: 1.76 cm Right Atrium RA Vol. (Sngl Plane): 24.44 ml Right Ventricle TAPSE: 1.57 cm Aorta Ao Root S of Falguni.: 2.6 cm Ascending Aorta: 2.9 cm Doppler/Quantitative Measurements Mitral Valve MV Peak E-Wave: 1.13 m/s MV Peak A-Wave: 0.58 m/s E/A Ratio: 1.96 Peak Gradient: 5.12 mmHg Deceleration Time: 105 msec MV Felix. Peak: Aortic Valve Peak Velocity: 1.32 m/s Mean Velocity: 0.88 m/s Peak Gradient: 7.02 mmHg Mean Gradient: 3.56 mmHg AV Area (continuity): 1.5 cm^2 AV VTI: 17.98 cm AV DVI: 0.62 LVOT Peak Velocity: 0.86 m/s Peak Gradient: 2.94 mmHg Mean Velocity: 0.5 m/s Mean Gradient: 1.23 mmHg LVOT Diameter: 1.76 cm LVOT VTI: 11.12 cm LVOT Area: 2.43 cm^2 LVOT SV:27.04 ml LVOT CO: 2.54 l/min LVOT CI: 1.87 l/min/m^2 Tricuspid Valve TR Velocity: 3.8 m/s TR Gradient: 57.86 mmHg CBC with platelet count + automated diff (04/29/2018 3:55 AM)Only the most recent of28 resultswithin the time period is included. Component Value Ref Range WBC 4.0 3.5 - 10.5 K/L RBC 3.04 (L) 3.93 - 5.22 M/L Hemoglobin 9.5 (L) 11.2 - 15.7 GM/DL Hematocrit 30.9 (L) 34.1 - 44.9 % MCV 101.6 (H) 79.4 - 94.8 fL MCH 31.3 25.6 - 32.2 pg MCHC 30.7 (L) 32.2 - 35.5 GM/DL RDW 18.8 (H) 11.7 - 14.4 % Platelets 139 (L) 150 - 450 K/CU MM MPV 11.3 9.4 - 12.3 fL nRBC 0 0 - 0 /100 WBC % Neutros 81 % % Lymphs 10 % % Monos 7 % % Eos 1 % % Baso 1 % # Neutros 3.25 1.56 - 6.13 K/L # Lymphs 0.38 (L) 1.18 - 3.74 K/L # Monos 0.28 0.24 - 0.36 K/L # Eos 0.04 0.04 - 0.36 K/L # Baso 0.02 0.01 - 0.08 K/L Immature Granulocytes-Relative 1 0 - 1 % Specimen Performing Laboratory Blood - Arm, Left [facility] [address] [address] CBC with platelet count + automated diff (04/29/2018 3:55 AM)Only the most recent of28 resultswithin the time period is included. Specimen Performing Laboratory Blood Narrative The following orders were created for panel order CBC with platelet count + automated diff. Procedure Abnormality Status --------- ------ CBC with platelet count ...[[id number]]AbnormalFinal result Please view results for these tests on the individual orders. Phosphorus (04/29/2018 3:55 AM)Only the most recent of7 resultswithin the time period is included. Component Value Ref Range Phosphorus 3.1Comment: Specimen slightly hemolyzed 2.3 - 4.7 mg/dL Specimen Performing Laboratory Blood - Arm, [address] [address] Magnesium (04/29/2018 3:55 AM)Only the most recent of17 resultswithin the time period is included. Component Value Ref Range Magnesium 2.0Comment: Specimen slightly hemolyzed 1.6 - 2.6 mg/dL Specimen Performing Laboratory Blood - Arm, [address] [address] Basic metabolic panel (04/29/2018 3:55 AM)Only the most recent of36 resultswithin the time period is included. Component Value Ref Range Sodium 131 (L) 136 - 145 meq/L Potassium 4.5Comment: Specimen slightly hemolyzed 3.5 - 5.1 meq/L Chloride 100 98 - 107 meq/L CO2 22 22 - 29 meq/L BUN 29 (H) 7 - 21 mg/dL Creatinine 3.52 (H)Comment: Specimen slightly hemolyzed 0.57 - 1.25 mg/dL Glucose 110 (H) 70 - 105 mg/dL Calcium 8.6 8.4 - 10.2 mg/dL EGFR 14Comment: ESTIMATED GFR IS NOT ACCURATE mL/min/1.73 sq m CREATININE CLEARANCE IN PREDICTING GLOMERULAR FILTRATION RATE. ESTIMATED GFR IS NOT APPLICABLE FOR DIALYSIS PATIENTS. Specimen Performing Laboratory Blood - Arm, [address] [address] TRANSFUSION SERVICE REPORT - SCAN (04/28/2018 6:00 PM)Only the most recent of10 resultswithin the time period is included.IR thrombin injection (2017 6:00 PM) Specimen Performing Laboratory GE RIS Narrative FINAL REPORT Ultrasound guided thrombin injection, 04/28/2018. 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 Modality: Fluoroscopy. Sedation: None. Maintenance Clerk:Zee. Rehab Therapist:Jorge. Approach:Right inguinal region. Estimated blood loss:< 10 cc. Specimen: None. Fluoroscopy Time: 0.7 min.Dose (Ka,r): 15.8 mGy. Technique: Informed written consent was obtained. [...] gown for performing radiologist and scrub technologist. Ultrasound evaluation was performed demonstrating a pseudoaneurysm in the right inguinal region. Ultrasound guidance was used to percutaneously access the pseudoaneurysm using a 21-gauge micropuncture needle, 0.018 inches wire, and micropuncture sheath. Contrast was injected through the micropuncture 4 Danish sheath for a DSA run to evaluate the pseudoaneurysm neck. Using real-time sonographic observation, 100 units of thrombin was injected with immediate cessation of flow within the pseudoaneurysm on color Doppler examination. Distal pulses remained intact throughout the exam. FINDINGS:DSA run demonstrates a 2 x 1 point cm bilobed pseudoaneurysm arising from the right profundus femoral artery, with a narrow neck. IMPRESSION: Successful, uncomplicated thrombin injection for thrombosis of right femoral pseudoaneurysm. Signed: Rocco Koch MD Report Verified Date/Time:04/29/2018 08:05:43 Reading Location: [facility] Radiology Reading Room Procedure Note Interface, External Ris In - 04/29/2018 8:07 AM CDT FINAL REPORT Ultrasound guided thrombin injection, 04/28/2018. 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 Modality: Fluoroscopy. Sedation: None. Maintenance Clerk: Zee. Rehab Therapist: Jorge. Approach: Right inguinal region. Estimated blood loss: < 10 cc. Specimen: None. Fluoroscopy Time: 0.7 min. Dose (Ka,r): 15.8 mGy. Technique: Informed written consent was obtained. [...] gown for performing radiologist and scrub technologist. Ultrasound evaluation was performed demonstrating a pseudoaneurysm in the right inguinal region. Ultrasound guidance was used to percutaneously access the pseudoaneurysm using a 21-gauge micropuncture needle, 0.018 inches wire, and micropuncture sheath. Contrast was injected through the micropuncture 4 Danish sheath for a DSA run to evaluate the pseudoaneurysm neck. Using real-time sonographic observation, 100 units of thrombin was injected with immediate cessation of flow within the pseudoaneurysm on color Doppler examination. Distal pulses remained intact throughout the exam. FINDINGS: DSA run demonstrates a 2 x 1 point cm bilobed pseudoaneurysm arising from the right profundus femoral artery, with a narrow neck. IMPRESSION: Successful, uncomplicated thrombin injection for thrombosis of right femoral pseudoaneurysm. Signed: Rocco Koch MD Report Verified Date/Time: 04/29/2018 08:05:43 Reading Location: [facility] Radiology Reading Room Hemodialysis (04/28/2018 1:37 PM)Only the most recent of6 resultswithin the time period is included. Narrative Aman Daniel RN 04/28/20181:37 PM Received pt awake, slightly light headed, BP checked. Introduced myself to pt.Taking over care from Iron GOFF. UF off if not tolerated as instructed by Dr Smith to Iron OGFF. Monitor pr closely. Lab Results Component Value Date WBC 2.9 (L) 04/28/2018 HGB 9.1 (L) 04/28/2018 HCT 29.2 (L) 04/28/2018 MCV 101.0 (H) 04/28/2018 PLT 110 (L) 04/28/2018 Chemistry Component Value Date/Time NA 128 (L) 04/28/2018550 K 4.7 04/28/2018550 CL 94 (L) 04/28/2018550 CO2 22 04/28/2018550 BUN 49 (H) 04/28/2018550 CREATININE 4.78 (H) 04/28/2018550 Component Value Date/Time CALCIUM 8.4 04/28/2018550 ALKPHOS 42 03/28/2018 0245 AST 35 (H) 03/28/2018 0245 ALT 13 03/28/2018 024 BILITOT 1.0 03/28/2018 0245 Results for RAVEN GOLD ( ) as of 04/28/2018 13:37 Ref. Range 04/25/2018 20:51 Hepatitis B Surface Ag Latest Ref Range: NonreactiveNonreactive Troponin I (04/28/2018 9:34 AM)Only the most recent of5 resultswithin the time period is included. Component Value Ref Range Troponin I 0.08 (H) 0.00 - 0.03 ng/mL Specimen Performing Laboratory Blood - Arm, [address] [address] Narrative Troponin I (TnI) levels must be [...] acidosis, acute neurological disease, and persistent tachyarrhythmia. ECG 12 lead (04/28/2018 9:23 AM)Only the most recent of5 resultswithin the time period is included. Specimen Performing Laboratory GE MUSE Narrative Ventricular Rate 99 BPM Atrial Rate 99 BPM P-R Interval 138 ms QRS Duration 70 ms Q-T Interval 378 ms QTC Calculation(Bazett) 485 ms P [place] 56 degrees R [place] 62 degrees T [place] 81 degrees Normal sinus rhythm Prolonged QT Abnormal ECG When compared with ECG of 26-MAR-2018 08:47, Significant changes have occurred Confirmed by MD DOZIER MAJID ([id number]) on 05/02/2018 10:13:00 AM Procedure Note Interface, External Ris In - 05/02/2018 10:13 AM CDT Ventricular Rate 99 BPM Atrial Rate 99 BPM P-R Interval 138 ms QRS Duration 70 ms Q-T Interval 378 ms QTC Calculation(Bazett) 485 ms P [place] 56 degrees R [place] 62 degrees T [place] 81 degrees Normal sinus rhythm Prolonged QT Abnormal ECG When compared with ECG of 26-MAR-2018 08:47, Significant changes have occurred Confirmed by MD DOZIER MAJID ([id number]) on 05/02/2018 10:13:00 AM Direct AHG (BASIL)/Direct Rose (04/27/2018 7:09 PM)Only the most recent of2 resultswithin the time period is included. Component Value Ref Range Direct AHG-IGG NEGATIVE Direct AHG-C3B, C3D NEGATVIE Specimen Performing Laboratory Blood [address] [address] Hepatitis B surface antigen (04/25/2018 8:51 PM) Component Value Ref Range hepatitis B Surface Ag Nonreactive Nonreactive Specimen Performing Laboratory Blood - Arm, [address] [address] Peripheral Blood Smear - Hold only (04/25/2018 4:17 PM)Only the most recent of4 resultswithin the time period is included. Component Value Ref Range Peripheral Smear Save saved Specimen Performing Laboratory Blood - Arm, [address] [address] Lactate dehydrogenase (LDH) (04/25/2018 4:17 PM)Only the most recent of5 resultswithin the time period is included. Component Value Ref Range LDH 332 (H) 125 - 220 U/L Specimen Performing Laboratory Blood - Arm, [address] [address] Haptoglobin (04/25/2018 4:17 PM)Only the most recent of4 resultswithin the time period is included. Component Value Ref Range Haptoglobin <8 (L) 14 - 258 mg/dL Specimen Performing Laboratory Blood - Arm, [address] [address] Arterial doppler leg, right (04/25/2018 6:35 AM) Component Value Ref Range Ejection Fraction Specimen Performing Laboratory [facility] Impressions Right Impression 1. There is a pseudoaneurysm visualized originating from the Superficial Femoral Artery (superior)measuring 0.97 cm x 0.81 cm with thrombus. 2. There is a pseudoaneurysm visualized originating from the Superficial Femoral Artery (inferior)measuring 2.18 cm x 1.61 cm with thrombus. 3. There is no venous obstruction or arteriovenous fistula visualized. 4. The common femoral artery flow is triphasic with a velocity of 96 cm/sec. (within normal range). 5. The superficial femoral artery flow is 98cm/sec which is within normal limits. Conclusions Summary Duplex imaging of the right groin area was performed. The vessels were adequately visualized. There were two pseudoaneurysms visualized originating from the superficial femoral artery measuring 0.97 cm x 0.81 cm (superior to artery) and 2.18 x 1.61cm (inferior to artery)both contain thrombus. The entry tract is visible in pseudoaneurysm superior to artery measuring 0.31cm wide x 0.98cm long . Doppler waveforms in the tract demonstrate a bi-directional flow pattern diagnostic of a pseudoaneurysm. There was no evidence of a venous obstruction or arteriovenous fistula in the right groin area. Signature Velocities are measured in cm/s ; Diameters are measured in cm Narrative [facility] - Pseudoaneurysm Survey Demographics Patient Name Esthela GOLD of Study 04/25/2018 ADAN [id number] Age 53 Visit Number [id number] Gender Female Accession Number [id number] Date of 1965 [facility] Number [id number] Physician Clifford RamosJJessica Saxena MD, RVTPhysician RPVI Procedure Type of Study: Pseudoaneurysm: PSEUDOANEURYSM, GROIN DOPPLER RIGHT. Indications for Study:Pseudoaneurysm. Patient Status:STAT. Study Location:Portable. Technical Quality:Adequate visualization. - Results were reported to:DENVER Livingston @ 06:35; paged Dr. Cali @ 07:07. Risk Factors History of Disease + + + + !Diagnosis!Date!Comments ! + + + + !History/Risk Factors:!04/25/2018!S/P right groin invasive line removal OSH! ! !!Right groin bruit! + + + + Procedure Note Interface, External Ris In - 04/25/2018 7:53 AM CDT [facility] - Pseudoaneurysm Survey Demographics Patient Name RAVEN GOLD Date of Study 04/25/2018 ADAN Age 53 Visit Number [id number] Gender Female Accession Number [id number] Date of 1965 [facility]8 Physician Job Service Consultant Steph Dawn Interpreting Ho Saxena MD, RVT Physician RPVI Procedure Type of Study: Pseudoaneurysm: PSEUDOANEURYSM, GROIN DOPPLER RIGHT. Indications for Study:Pseudoaneurysm. Patient Status:STAT. Study Location:Portable. Technical Quality:Adequate visualization. - Results were reported to:DENVER Livingston @ 06:35; paged Dr. Cali @ 07:07. Risk Factors History of Disease + + + + !Diagnosis !Date !Comments ! + + + + !History/Risk Factors:!04/25/2018!S/P right groin invasive line removal OSH! ! ! !Right groin bruit ! + + + + Impressions Right Impression 1. There is a pseudoaneurysm visualized originating from the Superficial Femoral Artery (superior)measuring 0.97 cm x 0.81 cm with thrombus. 2. There is a pseudoaneurysm visualized originating from the Superficial Femoral Artery (inferior)measuring 2.18 cm x 1.61 cm with thrombus. 3. There is no venous obstruction or arteriovenous fistula visualized. 4. The common femoral artery flow is triphasic with a velocity of 96 cm/sec. (within normal range). 5. The superficial femoral artery flow is 98cm/sec which is within normal limits. Conclusions Summary Duplex imaging of the right groin area was performed. The vessels were adequately visualized. There were two pseudoaneurysms visualized originating from the superficial femoral artery measuring 0.97 cm x 0.81 cm (superior to artery) and 2.18 x 1.61cm (inferior to artery)both contain thrombus. The entry tract is visible in pseudoaneurysm superior to artery measuring 0.31cm wide x 0.98cm long . Doppler waveforms in the tract demonstrate a bi-directional flow pattern diagnostic of a pseudoaneurysm. There was no evidence of a venous obstruction or arteriovenous fistula in the right groin area. Signature Velocities are measured in cm/s ; Diameters are measured in cm POC-Glucose meter (03/30/2018 6:39 PM)Only the most recent of4 resultswithin the time period is included. Component Value Ref Range POC-Glucose Meter 121 (H)Comment: TESTED AT [address] 70 - 110 mg/[place] [address] Specimen Performing Laboratory Blood [facility] [address] [address] IR CV Access Fluoro (03/30/2018 4:42 PM) Specimen Performing Laboratory [facility] [employer] Narrative FINAL REPORT Tunneled dialysis catheter insertion. History: Renal failure. Modality: Sonography and fluoroscopy. Sedation: Versed 0.5 mg and fentanyl 25 mcg was given intravenously for conscious sedation.Vital signs were monitored throughout the procedure by a nurse, and remained stable. Physician intra-service time was 15 minutes. Maintenance Clerk:Blessing. Rehab Therapist:None. Approach: Right internal jugular vein Estimated blood [...] needle into the right atrium. A 4 Danish micropuncture sheath was placed.A subcutaneous tunnel was created in the right anterior chest wall by blunt dissection.A 19 cm 15.5 Danish Duraflow 2 catheter was brought through the [...] MD Report Verified Date/Time:04/01/2018 17:46:56 Reading Location: [place] [address] Angio Body Reading Room Procedure Note Interface, External Ris In - 04/01/2018 5:49 PM CDT FINAL REPORT Tunneled dialysis catheter insertion. History: Renal failure. Modality: Sonography and fluoroscopy. Sedation: Versed 0.5 mg and fentanyl 25 mcg was given intravenously for conscious sedation. Vital signs were monitored throughout the procedure by a nurse, and remained stable. Physician intra-service time was 15 minutes. Maintenance Clerk: Blessing. Rehab Therapist: None. Approach: Right internal jugular vein Estimated [...] needle into the right atrium. A 4 Danish micropuncture sheath was placed. A subcutaneous tunnel was created in the right anterior chest wall by blunt dissection. A 19 cm 15.5 Danish Duraflow 2 catheter was brought through the [...] Report Verified Date/Time: 04/01/2018 17:46:56 Reading Location: [place] [id number] Angio Body Reading Room /aPTT (03/30/2018 4:37 AM)Only the most recent of4 resultswithin the time period is included. Component Value Ref Range Protime 16.7 (H) 11.7 - 14.7 seconds INR 1.4 <=5.9 PTT 39.8 (H) 22.5 - 36.0 seconds Specimen Performing Laboratory Blood [facility] [address] [address] Narrative RECOMMENDED COUMADIN/WARFARIN INR THERAPY RANGES STANDARD DOSE: 2.0 - 3.0 Includes: PROPHYLAXIS for venous thrombosis, systemic embolization; TREATMENT for venous thrombosis and/or pulmonary embolus. HIGH RISK: Target INR is 2.5-3.5 for patients with mechanical heart valves. Prepare Leuko-Red RBC (03/28/2018 11:54 PM)Only the most recent of3 resultswithin the time period is included. Component Value Ref Range CROSSMATCH COMPATIBLE Unit ABO A Pos UNIT NUMBER [id number] Status TRANSFUSED Blood Bank Product RED BLOOD CELLS PRODUCT CODE [id number] Specimen Performing Laboratory Other SAFETRACE TX XR [...] Surgical clips overlie the right chest. Signed: Radha Monge MD Report Verified Date/Time:03/28/2018 22:19:58 Reading Location: [address] Reading Room Procedure Note Interface, External [...] Surgical clips overlie the right chest. Signed: Radha Monge MD Report Verified Date/Time: 03/28/2018 22:19:58 Reading Location: [address] Reading Room Lactic acid, venous, whole blood (03/28/2018 2:45 AM)Only the most recent of5 resultswithin the time period is included. Component Value Ref Range Lactate, Venous 1.1 0.5 - 2.2 mmol/L Specimen Performing Laboratory Blood [address] [address] Narrative Effective 11/28/2015: Units/Reference Range Change New: [...] FOR DIALYSIS PATIENTS. Specimen Performing Laboratory Blood [address] [address] Blood culture (03/28/2018 2:44 AM)Only the most recent of6 resultswithin the time period is included. Component Value Ref Range Result No growth in 5 days Specimen Performing Laboratory Blood - Central Venous Line [address] [address] Transfuse Leuko-Red RBC (03/27/2018 2:48 PM)Only the most recent of7 resultswithin the time period is included.Type and screen, automated (2017 12:03 PM)Only the most recent of3 resultswithin the time period is included. Component Value Ref Range ABO/RH AUTOMATED (BEAKER) A POSITIVE Ab Scrn NEGATIVE Specimen Performing Laboratory Blood [address] [address] XR shoulder complete 2 views min left [...] MD Report Verified Date/Time:03/26/2018 17:48:06 Reading Location: [facility] Radiology Reading Room Procedure Note [...] Report Verified Date/Time: 03/26/2018 17:48:06 Reading Location: [facility] Radiology Reading Room abdomen/pelvis without iv contrast (03/26/2018 12:39 AM) Specimen Performing Laboratory GE RIS Narrative FINAL REPORT CT, ABDOMEN \\T\\ [...] the bilateral lower lobes. Unchanged splenomegaly. Signed: Zaina Islas MD Report Verified Date/Time:03/26/2018 02:57:14 Reading Location: [address] Transitional Reading Room Procedure Note Interface, [...] the bilateral lower lobes. Unchanged splenomegaly. Signed: Zaina Islas MD Report Verified Date/Time: 03/26/2018 02:57:14 Reading Location: [facility] C0[facility] Transitional Reading Room renal biopsy (03/24/2018 1:00 PM) Specimen Performing Laboratory GE RIS Narrative FINAL REPORT HISTORY: Acute kidney injury of unknown etiology Sedation: Moderate sedation was administered. 0.5 mg of Versed and 25 mcg of fentanyl IV was used for moderate sedation monitored under my direction. Total intra-service time of sedation [id number]. The patient's vital signs were monitored throughout [...] ultrasound guided core random biopsy of the [place] left kidney. Signed: Eduin Thompson MD Report Verified Date/Time:03/24/2018 12:59:37 Reading Location: [address] Ultrasound Reading Room Procedure Note Interface, [...] ultrasound guided core random biopsy of the [place] left kidney. 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 One study (see reference) have reported arteriolar deposition of C4d to suggest a deficit in complement regulation. Clinical correlation is recommended. Reference: Earline JS, et al. Complement Factor C4d Is a Common Denominator in Thrombotic Microangiopathy. J Am Soc Nephrol. 2015 Sep;26(9):2239-47. The results were communicated to Dr. Vital on 03/25/2018 at 10.15 am. CPT Code(s) 23420, 78861 X3, 29096, 34894 x8, 81219 CLINICAL HISTORY Left renal failure evaluation SPECIMEN SOURCE [place] left kidney biopsy GROSS DESCRIPTION The specimen [...] tubular basement membranes. Fibrinogen: Positive in thrombi Bonita:Focal segmental to global, granular, peripheral capillary loop [...] Specimen Performing Laboratory Tissue - Kidney, Left [facility] [address] [place] [address] Hepatic function panel (03/22/2018 4:51 PM)Only the [...] Performing Laboratory Blood - Central Venous Line [address] [address] Prothrombin time/INR (03/22/2018 6:28 AM)Only the most recent of3 resultswithin the time period is included. Component Value Ref Range Protime 16.2 (H) 11.7 - 14.7 seconds INR 1.3 <=5.9 Specimen Performing Laboratory Blood - Arm, [address] [address] Narrative RECOMMENDED COUMADIN/WARFARIN INR THERAPY RANGES STANDARD [...] % Specimen Performing Laboratory Blood - Arm, [address] [address] CBC (Hemogram only) (03/21/2018 3:21 AM)Only the [...] Specimen Performing Laboratory Blood - Arm, Right [address] [address] Hepatitis B Panel (03/20/2018 12:12 PM) Component Value Ref Range Hep B Core Total Ab Nonreactive Nonreactive Hep B S Ab 133.0 (H) <8.0 mIU/mL Comment: Testing performed at [facility]. See attach result for further interpretation. hepatitis B Surface Ag Nonreactive Nonreactive Specimen Performing Laboratory Blood - Central Venous Line [address] [address] Hepatitis C antibody (03/20/2018 12:12 PM) Component Value Ref Range Hepatitis C Ab Nonreactive Nonreactive Specimen Performing Laboratory Blood - Central Venous Line [address] [address] TSH/Free T4 If Indicated (03/20/2018 5:39 AM) Component Value Ref Range TSH 7.12 (H) 0.35 - 4.94 uIU/mL Specimen Performing Laboratory Blood [address] [address] T4, free (03/20/2018 5:39 AM) Component Value Ref Range Free T4 0.67 (L) 0.70 - 1.48 ng/dL Specimen Performing Laboratory Blood [address] [address] Prepare plasma (03/19/2018 11:54 PM)Only the most recent of2 resultswithin the time period is included. Component Value Ref Range Unit ABO A UNIT NUMBER [id number] Status TRANSFUSED Blood Bank Product FFP PRODUCT CODE [id number] Unit ABO A UNIT NUMBER [id number] Status TRANSFUSED Blood Bank Product FFP PRODUCT CODE [id number] Specimen Performing Laboratory Blood SAFETRACE TX PTH, intact (03/19/2018 5:29 AM) Component Value Ref Range PTH 690.0 (H) 8.5 - 72.5 pg/mL Specimen Performing Laboratory Blood - Central Venous Line [address] [address] Vancomycin level, random (03/19/2018 5:29 AM)Only the most recent of2 resultswithin the time period is included. Component Value Ref Range Vancomycin Rm 14.4 ug/mL Specimen Performing Laboratory Blood - Central Venous Line [address] [address] Narrative Reference Range: No Normals EKG-SCANNED (03/18/2018 2:53 PM)Calcium, Ionized (03/18/2018 9:15 AM)Only the most recent of3 resultswithin the time period is included. Component Value Ref Range Calcium, Ion 0.94 (L) 1.12 - 1.27 mmol/L pH, Blood 7.48 Specimen Performing Laboratory Blood - Central Venous Line [address] [address] aPTT (03/18/2018 8:37 AM)Only the most recent of2 resultswithin the time period is included. Component Value Ref Range PTT 38.9 (H) 22.5 - 36.0 seconds Specimen Performing Laboratory Blood - Central Venous Line [address] [address] D-dimer (03/18/2018 8:37 AM)Only the most recent of2 resultswithin the time period is included. Component Value Ref Range D-Dimer, Quant 3.18 (H) <0.50 MG/L FEU Specimen Performing Laboratory Blood - Central Venous Line [address] [address] Narrative Intended Use: The D-Dimer Assay can [...] - 295 mOsm/kg Specimen Performing Laboratory Blood [address] [address] Transfusion Reaction Investigation (03/18/2018 4:06 AM) Component Value Ref Range TRANSFUSION RX INVESTIGATION(BETON) SEE COMMENTComment: Anaphylactoid reaction vs hypocalcemic response on TPE. Patient promptly recovered post fluid bolus. No special precautions required for future transfusions,Electronic Signature: Yuval Carmichael M.D. Specimen Performing Laboratory Blood [address] [address] Transfuse plasma (03/18/2018 3:56 AM)Urea Nitrogen, random urine (03/18/2018 2 :20 AM) Component Value Ref Range Urea Nitrogen, Ur 298 mg/dL Specimen Performing Laboratory Urine - Urine, [address] [address] Narrative Reference Range: No Normals Sodium, random urine (03/18/2018 2:20 AM) Component Value Ref Range Sodium Urine 57 meq/L Specimen Performing Laboratory Urine - Urine, [address] [address] Narrative Reference Range: No Normals Potassium, random urine (03/18/2018 2:20 AM) Component Value Ref Range Potassium Urine 41.5 meq/L Specimen Performing Laboratory Urine - Urine, [address] [address] Narrative Reference Range: No Normals Osmolality, urine (03/18/2018 2:20 AM) Component Value Ref Range Osmolality, Ur 316 40 - 1400 mOsm/kg Specimen Performing Laboratory Urine - Urine, [address] [address] Creatinine, random urine (03/18/2018 2:20 AM)Only the most recent of2 resultswithin the time period is included. Component Value Ref Range Creatinine, Ur 36.3 mg/dL Specimen Performing Laboratory Urine - Urine, [address] [address] Narrative Reference Range: No Normals VWF Protease (ADAMTS-13)Activity (03/18/2018 2:19 AM) Component Value Ref Range VWF Protease Profile Refer to individaul VWF Protease Activity and Inhibitor results. Specimen Performing Laboratory Blood Procalcitonin (03/18/2018 1:27 AM) Component Value Ref Range Procalcitonin 8.65 (H) <0.05 ng/mL Specimen Performing Laboratory Blood [address] [address] Narrative SEPSIS RISK (ng/mL) Low:0.05-0.50 Intermediate: 0.51-2.00 High: >=2.01 ABORH, manual (03/18/2018 12:59 AM) Component Value Ref Range ABO Grouping A Rh Factor POS Specimen Performing Laboratory Blood [address] [address] Fibrinogen (03/18/2018 12:59 AM) Component Value Ref Range Fibrinogen 466 (H) 225 - 434 mg/dl Specimen Performing Laboratory Blood [address] [address] Biopsy Bone Marrow (03/17/2018 3:01 PM) Component Value Ref Range Anatomic Case# [id number] Ordering Physician jordan Sultana m.d. Performing Physician Jordan uSltana m.d. Clot Rec'd? Yes Biopsy Rec'd? Yes Rec'd for Culture? No Rec'd for Flow? Yes Rec'd for Cytogenetics? Yes Rec'd for Molecular Genetics? No Specimen Performing Laboratory Bone Marrow - Iliac Crest, Right [facility] [address] [place] [address] Flow Cytometry Requisition (03/17/2018 3:00 PM) Component Value Ref Range Flow Cytometry See Separate Report Case # [id number] Specimen Performing Laboratory Bone Marrow [address] [address] Flow Cytometry (03/17/2018 3:00 PM) Component Value Ref Range Case Report Flow Cytometry Report Case: [id number] Authorizing Provider:Jordan Sultana MD Collected: 03/17/2018 1500 Ordering Location: [address] Med/SurgReceived: 03/17/2018 1714 Pathologist: Doug Lee [...] the bone marrow biopsy report([id number]). CPT Code(s) 81207 CLINICAL HISTORY 53 wf with h/o right breast ca s/p surgery and chemo xrt in 2013 found to have recurrence with extensive metastases, started on carboplatin and gemcitabine in October 2017, transferred from [facility] for management of MAHA with REJI. SPECIMEN SOURCE BONE MARROW ASPIRATE CELLULAR BIOMARKER ANALYSIS CD8, surface-Bonita, CD56, surface-Lambda, CD5, CD19, CD10, CD3, CD20, CD4, CD45, CD14, CD13, CD33, CD117, CD34, cKappa, cLambda , CD38, CD138 IMMUNOPHENOTYPIC FINDINGS Specimen Viability: 92.4%Number of Events Acquired: 134963 The following populations are identified: Blasts: the [...] developed and their performance characteristics determined by [facility] They have not been cleared or approved by the U.S. Food and Drug Administration. The FDA has determined that such clearance or approval is not necessary. It should not be regarded as investigational or for research. This laboratory is certified under the Clinical Laboratory Improvement Amendments of 1988 ("CLIA") as qualified to perform high-complexity clinical testing. Specimen Performing Laboratory Other [facility] [address] [address] Bone Marrow Exam (03/17/2018 2:57 PM) Component Value Ref Range Case Report Bone Marrow Pathology Report Case: [id number] Authorizing Provider:Jordan Sultana MD Collected: 03/17/2018 0065 Ordering Location: [address] Med/SurgReceived: 03/17/2018 4048 Pathologist: Doug Lee MD Specimens: A) - Iliac, Right B) - Iliac, Right C) - Iliac, Right ADDENDUM This addendum is created to report the [employer] results for the Oncologic chromosomal study: There [...] ANEMIA -THROMBOCYTOPENIA Signing Pathologist Direct Phone Line: [phone] COMMENT Bone marrow biopsy evaluation was performed [...] as an addendum when available. CPT Code(s) 15303; 04076; 78728 x 2; 21953; 34840 57255 x 1; 02959 x11 CLINICAL HISTORY Primary malignant neoplasm of [...] some erythroid precursors. CD138:Highlights few plasma cells Bonita:Highlights polyclonal plasma cells Lambda:Highlights polyclonal plasma cells [...] developed and its performance characteristics determined by [facility], Pathology Laboratory. It has not been [...] 5.2, CD3, CD20, CD34, CD61, CD117, CD138, Bonita, Lambda, E-Cadherin. Specimen Performing Laboratory Bone Marrow - Iliac, Right [facility] [address] [place] [address] CT Biopsy/Aspiration/Injection (03/17/2018 2:41 PM) Specimen Performing Laboratory Deep Glint RIS Narrative FINAL REPORT PROCEDURE: CT-guided bone marrow biopsy DOSE REDUCTION: The examination was performed according to departmental dose-optimization program which includes automated exposure control, adjustment of the mA and/or kV according to patient size and/or use of iterative reconstruction technique. Clinical History: Pancytopenia Nurse Practitioner Physicians Assistant: Marce Conscious sedation: Versed 1 mg, fentanyl [...] usual sterile manner. Following local anesthesia a Robshidi 6 inches 11-gauge bone marrow biopsy needle and sheath were advanced into the rightilium under CT guidance. The cortex was disrupted and approximately 8 to 10 cc of bloody aspirate was immediately removed and provided to the ct technologist. Subsequently a core biopsy was obtained [...] of iterative reconstruction technique. Clinical History: Pancytopenia Nurse Practitioner Physicians Assistant: Marce Conscious sedation: Versed 1 mg, fentanyl [...] was immediately removed and provided to the ct technologist. Subsequently a core biopsy was obtained [...] Location: [facility] Radiology Reading Room chest 2 views (03/17/2018 10:42 AM)Only the [...] Location: [facility] Radiology Reading Room Chromosomes Cancer Study (03/17/2018 7:46 AM) Component Value Ref Range Scan Result Specimen Performing Laboratory Bone Marrow [facility] [address] [place] [address] PARVOVIRUS B19 IGM (03/17/2018 6:02 AM) Component [...] PCR. Specimen Performing Laboratory Blood [facility] [address] [address] Narrative Performing Lab *[employer] [facility], [facility]. [address] [place] [phone] Susannah Cherry MD PARVOVIRUS B19 IGG (03/17/2018 6:02 AM) Component Value Ref Range Parvovirus B19 Igg 0.6 Comment: REFERENCE RANGE: <0.9 INTERPRETIVE CRITERIA: <0.9 Negative 0.9 - 1.1 Equivocal >1.1 Positive IgG persists for years and provides life-long immunity. To diagnose current infection, consider Parvovirus B19 DNA, PCR. Specimen Performing Laboratory Blood [facility] [address] [address] Narrative Performing Lab *[employer] [facility], [facility]. [address] [place] [phone] Susannah Cherry MD Parvovirus B19 antibodies (IgG, IgM) (03/17/2018 6:02 AM) Component Value Ref Range Parvovirus Ab Profile. Refer to individual Parvovirus B19 IgG and Igm results Specimen Performing Laboratory Blood [facility] [address] [address] Blood gas, arterial (03/17/2018 4:53 AM) Component [...] Performing Laboratory Blood, Arterial - Arm, Right [employer] [facility] [address] [place] [address] Protein, random urine (03/16/2018 10:45 PM) Component Value Ref Range Protein, Urine 432 (H) 0 - 14 mg/dL Specimen Performing Laboratory Urine [employer] [facility] [address] [place] [address] Urine Protein Electrophoresis, random (03/16/2018 10:45 PM) Component Value Ref Range Protein, Urine 412 (H) 0 - 14 mg/dL Albumin %, Urine 56.3 % Globulin %, Urine 43.7 % UPEP,ID No monoclonal bands detected. Pathologist: Barbie Mccollum MD (electronic signature) Specimen Performing Laboratory Urine [address] [address] Urine Immunofixation, random (03/16/2018 10:45 PM) Component Value Ref Range Protein, Urine 412 (H) 0 - 14 mg/dL Albumin %, Urine 56.3 % Globulin %, Urine 43.7 % URINE JUDSON ID No monoclonal proteins or monoclonal free light chains detected. Pathologist: Barbie Mccollum MD (electronic signature) Specimen Performing Laboratory Urine [address] [address] Urinalysis w/Microscopic (03/16/2018 10:45 PM)Only the most recent of4 resultswithin the time period is included. Component Value Ref Range Color, UA Yellow Clarity, UA Clear Specific Anton, UA 1.020 1.001 - 1.035 pH, UA [...] /LPF Specimen Source Specimen Performing Laboratory Urine [facility] [address] [place] [address] Peripheral Blood Smear - Path Review (03/16/2018 9:47 PM) Component Value Ref Range Pathologist Review Normochromic normocytic anemia with rare schistocytes seen (1-2/ HPF). WBCs normal in number and morphology. Thrombocytopenia with a few large forms. Pathologist: Michelle Yu M.D. (electronic signature) Specimen Performing Laboratory Blood [facility] [address] [place] [address] SARAH Titer & Pattern (03/16/2018 9:47 PM) Component Value Ref Range SARAH Titer >=1:2560 SARAH Pattern Speckled Specimen Performing Laboratory Blood [facility] [address] [address] Glomerular basement membrane antibody (03/16/2018 9:47 PM) Component Value Ref Range GBM Ab <1.0 <1.0 AI Comment: Interpretation: < 1.0 AI No Antibody Detected > OR=1.0 AI Antibody Detected Specimen Performing Laboratory Blood [facility] [address] [address] Narrative Performing Lab [facility] [address] [address] Eusebia Jolly MD, PhD, LUIS ALBERTO Anti-Neutrophil Cytoplasmic Ab (ANCA) (03/16/2018 9:47 PM) Component Value Ref Range Proteinase-3 Ab <1.0 <1.0 AI Comment: <1.0 AI No Antibody Detected > or=1.0 AI Antibody Detected Autoantibodies to proteinase-3 (PA-3) are accepted as characteristic for granulomatosis with polyangiitis (GPA, Amber's), and are detectable in 95% of the histologically proven cases. The cytoplasmic IFA pattern, (c-ANCA), is based largely on autoantibody to PA-3 which serves as the primary antigen. These [...] Specimen Performing Laboratory Blood [facility] [place] [address] [place] [address] Narrative Performing Lab [facility] [address] [address] Eusebia Jolly MD, PhD, LUIS ALBERTO Immunofixation electrophoresis (JUDSON) (03/16/2018 9:47 PM) Component Value Ref Range IgG 2008 (H) 540 - 1822 mg/dL IgA 37 (L) 63 - 484 mg/dL IgM 673 (H) 22 - 293 mg/dL Serum JUDSON Identification No monoclonal proteins detected. Polyclonal elevation of gamma globulins. Pathologist: Barbie Mccollum MD (electronic signature) Specimen Performing Laboratory Blood [address] [address] Bilirubin, total and direct (03/16/2018 9:47 PM) Component Value Ref Range Total Bilirubin 2.1 (H) 0.1 - 1.2 mg/dL Bilirubin, Direct 1.1 (H) 0.0 - 0.4 mg/dL Specimen Performing Laboratory Blood [facility] [address] [place] [address] Complement Component C3 (03/16/2018 9:47 PM) Component Value Ref Range C3 Complement 94 82 - 193 mg/dL Specimen Performing Laboratory Blood [address] [address] Complement Component C4 (03/16/2018 9:47 PM) Component Value Ref Range C4 Complement 22 15 - 57 mg/dL Specimen Performing Laboratory Blood [address] [address] Anti-Nuclear Antibody (SARAH) (03/16/2018 9:47 PM) Component Value Ref Range SARAH Positive (A) Negative Specimen Performing Laboratory [address] [address] Narrative Test performed by IFA method. Protein [...] 8.3 gm/dL Specimen Performing Laboratory Blood [facility] [address] [address] Ketone, blood (03/16/2018 9:47 PM) Component Value Ref Range Ketones, Blood 0.3 <0.4 mmol/L Specimen Performing Laboratory Blood [facility] [address] [place] [address] ED ECG Interpretation (03/16/2018 11:25 AM) Narrative Luis Fernando Kumar DO 03/16/2018 11:25 AM ECG/EKG Interpretation Date/Time: 03/16/2018 10:21 AM Performed by: LUIS FERNANDO KUMAR Authorized by: LUIS FERNANDO KUMAR The ECG was interpreted by ED physician. This ECG was not compared with previous ECG(s).The ECG is interpreted as sinus tachycardia. Rate is tachycardic. Heart rate is [address] segments normal. [place] is normal. Clinical Impression: non-specific ECGECG reviewed [...] Rh Factor POS Specimen Performing Laboratory Blood [facility] [address] [place] [address] Manual Differential (03/16/2018 10:02 AM)Only the most recent of4 resultswithin the time period is included. Component Value Ref Range Total Counted WBC Morphology Normal Platelet Morphology Normal Schistocytes 1+ few Anisocytosis 1+ few Macrocytes 1+ few Microcytes 1+ few Poikilocytes 1+ few Polychromasia 1+ few Specimen Performing Laboratory Blood [facility] [place] [address] Creatine Kinase (CK), Total and MB (not available at [facility]) (2017 10:02 AM) Component Value Ref Range Total CK 125 25 - 235 U/L CK-MB 0.9 0.0 - 4.9 ng/mL MB Relative Index 0.7 % Specimen Performing Laboratory [facility] [address] [place] [address] [facility] CK-MB Reference Range: <5 Normal 5-10 Borderline >10Abnormal Respiratory Panel [facility] (12/11/2017 10:13 AM) Component Value [...] Specimen Performing Laboratory Nasopharyngeal - Nasopharyngeal Swab [address] [address] Vancomycin level, trough (12/11/2017 4:58 AM)Only the most recent of2 resultswithin the time period is included. Component Value Ref Range Vancomycin Tr 11.7 10.0 - 20.0 ug/mL Specimen Performing Laboratory Blood [facility] [address] [place] [address] Urine culture (12/08/2017 7:03 PM)Only the most recent of2 resultswithin the time period is included. Component Value Ref Range Result No growth Specimen Performing Laboratory Urine - Urine, Clean Catch [facility] [address] [place] [address] CT brain without IV contrast (10/20/2017 4:58 [...] MD Report Verified Date/Time:10/20/2017 17:12:46 Reading Location: [facility] Reading Room Procedure Note Interface, External Ris [...] Report Verified Date/Time: 10/20/2017 17:12:46 Reading Location: [facility] Reading Room abdomen pelvis with IV contrast (10/20/2017 9:00 AM) Specimen Performing Laboratory GE RIS Narrative FINAL REPORT INDICATION: 52-year-old female [...] function test and patient's history. Constipation. Signed: Bernice Chavez MD Report Verified Date/Time:10/20/2017 09:17:32 Reading Location: [address] Consult Reading Room Procedure Note Interface, External [...] function test and patient's history. Constipation. Signed: Bernice Chavez MD Report Verified Date/Time: 10/20/2017 09:17:32 Reading Location: [facility] B1 [id number] [facility] Consult Reading Room Influenza antigen A & B (Rapid) (10/20/2017 7:26 AM) Component Value Ref Range Rapid Influenza A Antigen Negative Negative, Inconclusive Rapid influenza B Antigen Negative Negative, Inconclusive Specimen Performing Laboratory Nasopharyngeal - Nasopharyngeal Swab [facility] [address] [place] [address] Lipase (10/20/2017 7:23 AM) Component Value Ref Range Lipase 42 6 - 51 U/L Specimen Performing Laboratory Blood [facility] [address] [facility] [place] [address] after 05/02/2017
--- OUTSIDE RECORDS SUMMARY | 2018-05-03 01:35 | XMS REPORT ---
:1965 [facility] [address] [place] [address] Dr. Antony [address] [place] [id number] Care Team Providers Name Role Phone ANGELITA QUISPEDallas Unavailable Unavailable LENORE BARRERA Unavailable Unavailable STACY, LUIS FERNANDO KNUTSON Unavailable Unavailable FER SCHULZ Unavailable Unavailable ABBI, JEF LUCAS Unavailable Unavailable Problems This patient has no known problems. Allergies, Adverse Reactions, Alerts This patient has no known allergies or adverse reactions. Medications This patient has no known medications. Results Test Description Test Time Test Comments Text Results Atomic Results Result Comments MALACHI GLASS 2018-04-29 08:05:00 Reason for FINAL REPORT PATIENT INJECTION exam:->Thrombin ID: [id number] injection to right SFA Ultrasound guided thrombin injection, 04/28/2018. 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 Modality: Fluoroscopy. Sedation: None. Camera Technician: Zee. [place] Tribunal Member: Jorge. Approach: Right inguinal region. Estimated blood [...] Contrast was injected through the micropuncture 4 [place] sheath for a DSA run to evaluate [...] of right femoral pseudoaneurysm. Signed: Rocco Koch MDReport Verified Date/Time: 04/29/2018 08:05:43 Reading Location: [facility] Radiology Reading Room C METABOLIC PANEL 2018-04-29 04:40:00 Test Item Value Reference Range Comments SODIUM (BEAKER) (test 131 meq/L 136-145 nlwf=327) POTASSIUM (BEAKER) (test 4.5 meq/L 3.5-5.1 Specimen slightly hemolyzed xrbw=620) CHLORIDE (BEAKER) (test 100 meq/L 98-107 hvoj=491) CO2 (BEAKER) (test ikdp=326) 22 meq/L 22-29 BLOOD UREA NITROGEN (BEAKER) 29 mg/dL 7-21 (test hbjt=787) CREATININE (BEAKER) (test 3.52 mg/dL 0.57-1.25 Specimen slightly hemolyzed doqw=199) GLUCOSE RANDOM (BEAKER) 110 mg/dL 70-105 (test qfjg=192) CALCIUM (BEAKER) (test 8.6 mg/dL 8.4-10.2 gjsb=473) EGFR (BEAKER) (test 14 mL/min/1.73 sq m ESTIMATED GFR IS NOT svek=5638) ACCURATE CREATININE CLEARANCE IN PREDICTING GLOMERULAR FILTRATION RATE. ESTIMATED GFR IS NOT APPLICABLE FOR DIALYSIS PATIENTS. [id number] 04:37:00 Test Item Value Reference Range Comments MAGNESIUM (BEAKER) (test 2.0 mg/dL 1.6-2.6 Specimen slightly hemolyzed mkjk=602) [id number] 04:37:00 Test Item Value Reference Range Comments PHOSPHORUS (BEAKER) (test 3.1 mg/dL 2.3-4.7 Specimen slightly hemolyzed upns=718) CBC W/PLT COUNT & AUTO [id number] 04:27:00 Test Item Value Reference Range Comments WHITE BLOOD CELL COUNT (BEAKER) (test ylgu=644) 4.0 K/ L 3.5-10.5 RED BLOOD CELL COUNT (BEAKER) (test mxpf=210) 3.04 M/ L 3.93-5.22 HEMOGLOBIN (BEAKER) (test xmay=874) 9.5 GM/DL 11.2-15.7 HEMATOCRIT (BEAKER) (test jgqd=837) 30.9 % 34.1-44.9 MEAN CORPUSCULAR VOLUME (BEAKER) (test gine=686) 101.6 fL 79.4-94.8 MEAN CORPUSCULAR HEMOGLOBIN (BEAKER) (test 31.3 pg 25.6-32.2 jlrg=662) MEAN CORPUSCULAR HEMOGLOBIN CONC (BEAKER) (test 30.7 GM/DL 32.2-35.5 tqhd=939) RED CELL DISTRIBUTION WIDTH (BEAKER) (test 18.8 % 11.7-14.4 txle=899) PLATELET COUNT (BEAKER) (test ohed=386) 139 K/CU MM 150-450 MEAN PLATELET VOLUME (BEAKER) (test twsc=200) 11.3 fL 9.4-12.3 NUCLEATED RED BLOOD CELLS (BEAKER) (test 0 /100 WBC 0-0 dmwg=010) NEUTROPHILS RELATIVE PERCENT (BEAKER) (test 81 % sqkp=087) LYMPHOCYTES RELATIVE PERCENT (BEAKER) (test 10 % kdmw=502) MONOCYTES RELATIVE PERCENT (BEAKER) (test 7 % dltj=163) EOSINOPHILS RELATIVE PERCENT (BEAKER) (test 1 % nyfi=172) BASOPHILS RELATIVE PERCENT (BEAKER) (test 1 % gsqq=878) NEUTROPHILS ABSOLUTE COUNT (BEAKER) (test 3.25 K/ L 1.56-6.13 sxot=494) LYMPHOCYTES ABSOLUTE COUNT (BEAKER) (test 0.38 K/ L 1.18-3.74 pymi=400) MONOCYTES ABSOLUTE COUNT (BEAKER) (test 0.28 K/ L 0.24-0.36 dxnn=480) EOSINOPHILS ABSOLUTE COUNT (BEAKER) (test 0.04 K/ L 0.04-0.36 ibuh=138) BASOPHILS ABSOLUTE COUNT (BEAKER) (test 0.02 K/ L 0.01-0.08 tnik=181) IMMATURE GRANULOCYTES-RELATIVE PERCENT (BEAKER) 1 % 0-1 (test kfxw=8729) TROPONIN [id number] 10:14:00 Test Item Value Reference Range Comments TROPONIN I (BEAKER) (test xdxe=921) 0.08 ng/mL 0.00-0.03 Troponin I (TnI) levels must [...] acute neurological disease, and persistent tachyarrhythmia.BASIC METABOLIC [id number] 07:57:00 Test Item Value Reference Range Comments SODIUM (BEAKER) (test 128 meq/L 136-145 ktqy=925) POTASSIUM (BEAKER) (test 4.7 meq/L 3.5-5.1 dqiz=471) CHLORIDE (BEAKER) (test 94 meq/L 98-107 bvas=043) CO2 (BEAKER) (test 22 meq/L 22-29 wakx=812) BLOOD UREA NITROGEN 49 mg/dL 7-21 (BEAKER) (test ysxv=830) CREATININE (BEAKER) (test 4.78 mg/dL 0.57-1.25 iziw=119) GLUCOSE RANDOM (BEAKER) 88 mg/dL 70-105 (test rlgk=262) CALCIUM (BEAKER) (test 8.4 mg/dL 8.4-10.2 lkyn=013) EGFR (BEAKER) (test 10 mL/min/1.73 sq m ESTIMATED GFR IS NOT zycf=3701) ACCURATE CREATININE CLEARANCE IN PREDICTING GLOMERULAR FILTRATION RATE. ESTIMATED GFR IS NOT APPLICABLE FOR DIALYSIS PATIENTS. [id number] 07:41:00 Test Item Value Reference Range Comments PHOSPHORUS (BEAKER) (test yyhg=978) 2.8 mg/dL 2.3-4.7 [id number] 07:41:00 Test Item Value Reference Range Comments MAGNESIUM (BEAKER) (test shgb=899) 1.8 mg/dL 1.6-2.6 CBC W/PLT COUNT & AUTO [id number] 07:25:00 Test Item Value Reference Range Comments WHITE BLOOD CELL COUNT (BEAKER) (test ezjw=515) 2.9 K/ L 3.5-10.5 RED BLOOD CELL COUNT (BEAKER) (test jsaj=683) 2.89 M/ L 3.93-5.22 HEMOGLOBIN (BEAKER) (test nszy=540) 9.1 GM/DL 11.2-15.7 HEMATOCRIT (BEAKER) (test znyt=222) 29.2 % 34.1-44.9 MEAN CORPUSCULAR VOLUME (BEAKER) (test lvml=019) 101.0 fL 79.4-94.8 MEAN CORPUSCULAR HEMOGLOBIN (BEAKER) (test 31.5 pg 25.6-32.2 deco=380) MEAN CORPUSCULAR HEMOGLOBIN CONC (BEAKER) (test 31.2 GM/DL 32.2-35.5 kfkw=247) RED CELL DISTRIBUTION WIDTH (BEAKER) (test 18.5 % 11.7-14.4 somk=927) PLATELET COUNT (BEAKER) (test vhsi=273) 110 K/CU MM 150-450 MEAN PLATELET VOLUME (BEAKER) (test byol=003) 11.3 fL 9.4-12.3 NUCLEATED RED BLOOD CELLS (BEAKER) (test 0 /100 WBC 0-0 tpaf=198) NEUTROPHILS RELATIVE PERCENT (BEAKER) (test 77 % eqnq=504) LYMPHOCYTES RELATIVE PERCENT (BEAKER) (test 12 % gvkb=796) MONOCYTES RELATIVE PERCENT (BEAKER) (test 9 % rwnt=949) EOSINOPHILS RELATIVE PERCENT (BEAKER) (test 2 % hbqw=631) BASOPHILS RELATIVE PERCENT (BEAKER) (test 0 % ddrm=713) NEUTROPHILS ABSOLUTE COUNT (BEAKER) (test 2.20 K/ L 1.56-6.13 zhvk=099) LYMPHOCYTES ABSOLUTE COUNT (BEAKER) (test 0.33 K/ L 1.18-3.74 xmcb=708) MONOCYTES ABSOLUTE COUNT (BEAKER) (test 0.26 K/ L 0.24-0.36 ipjl=235) EOSINOPHILS ABSOLUTE COUNT (BEAKER) (test 0.05 K/ L 0.04-0.36 cbyd=138) BASOPHILS ABSOLUTE COUNT (BEAKER) (test 0.01 K/ L 0.01-0.08 cjzi=161) IMMATURE GRANULOCYTES-RELATIVE PERCENT (BEAKER) 0 % 0-1 (test caip=2981) CBC W/PLT COUNT & AUTO [id number] 14:22:00 Test Item Value Reference Range Comments WHITE BLOOD CELL COUNT (BEAKER) (test jdzb=529) 2.4 K/ L 3.5-10.5 RED BLOOD CELL COUNT (BEAKER) (test miao=964) 2.75 M/ L 3.93-5.22 HEMOGLOBIN (BEAKER) (test bwkv=858) 8.8 GM/DL 11.2-15.7 HEMATOCRIT (BEAKER) (test nmtt=249) 27.8 % 34.1-44.9 MEAN CORPUSCULAR VOLUME (BEAKER) (test ichk=268) 101.1 fL 79.4-94.8 MEAN CORPUSCULAR HEMOGLOBIN (BEAKER) (test 32.0 pg 25.6-32.2 fube=801) MEAN CORPUSCULAR HEMOGLOBIN CONC (BEAKER) (test 31.7 GM/DL 32.2-35.5 sqma=139) RED CELL DISTRIBUTION WIDTH (BEAKER) (test 18.9 % 11.7-14.4 nlsq=784) PLATELET COUNT (BEAKER) (test jdlc=684) 118 K/CU MM 150-450 MEAN PLATELET VOLUME (BEAKER) (test vynk=688) 10.8 fL 9.4-12.3 NUCLEATED RED BLOOD CELLS (BEAKER) (test 0 /100 WBC 0-0 yqoq=873) NEUTROPHILS RELATIVE PERCENT (BEAKER) (test 78 % suhi=421) LYMPHOCYTES RELATIVE PERCENT (BEAKER) (test 11 % yojp=990) MONOCYTES RELATIVE PERCENT (BEAKER) (test 8 % zuqb=171) EOSINOPHILS RELATIVE PERCENT (BEAKER) (test 2 % hqww=289) BASOPHILS RELATIVE PERCENT (BEAKER) (test 0 % kfwo=664) NEUTROPHILS ABSOLUTE COUNT (BEAKER) (test 1.86 K/ L 1.56-6.13 plky=177) LYMPHOCYTES ABSOLUTE COUNT (BEAKER) (test 0.27 K/ L 1.18-3.74 vhvq=746) MONOCYTES ABSOLUTE COUNT (BEAKER) (test 0.19 K/ L 0.24-0.36 byuf=267) EOSINOPHILS ABSOLUTE COUNT (BEAKER) (test 0.05 K/ L 0.04-0.36 ybom=903) BASOPHILS ABSOLUTE COUNT (BEAKER) (test 0.01 K/ L 0.01-0.08 tmbr=731) IMMATURE GRANULOCYTES-RELATIVE PERCENT (BEAKER) 0 % 0-1 (test hlil=8523) BASIC METABOLIC [id number] 07:59:00 Test Item Value Reference Range Comments SODIUM (BEAKER) (test 131 meq/L 136-145 jiqr=300) POTASSIUM (BEAKER) (test 4.0 meq/L 3.5-5.1 xwej=553) CHLORIDE (BEAKER) (test 96 meq/L 98-107 xtbu=630) CO2 (BEAKER) (test 23 meq/L 22-29 mhrb=645) BLOOD UREA NITROGEN 31 mg/dL 7-21 (BEAKER) (test yvli=284) CREATININE (BEAKER) (test 3.42 mg/dL 0.57-1.25 jcra=066) GLUCOSE RANDOM (BEAKER) 94 mg/dL 70-105 (test yzil=068) CALCIUM (BEAKER) (test 8.8 mg/dL 8.4-10.2 gvzw=185) EGFR (BEAKER) (test 14 mL/min/1.73 sq m ESTIMATED GFR IS NOT tkxc=5325) ACCURATE CREATININE CLEARANCE IN PREDICTING GLOMERULAR FILTRATION RATE. ESTIMATED GFR IS NOT APPLICABLE FOR DIALYSIS PATIENTS. [id number] 07:53:00 Test Item Value Reference Range Comments PHOSPHORUS (BEAKER) (test ghsl=319) 3.1 mg/dL 2.3-4.7 [id number] 07:53:00 Test Item Value Reference Range Comments MAGNESIUM (BEAKER) (test hrsd=985) 1.8 mg/dL 1.6-2.6 CBC W/PLT COUNT & AUTO [id number] 07:42:00 Test Item Value Reference Range Comments WHITE BLOOD CELL COUNT (BEAKER) (test wiqd=295) 2.6 K/ L 3.5-10.5 RED BLOOD CELL COUNT (BEAKER) (test cuzh=106) 2.89 M/ L 3.93-5.22 HEMOGLOBIN (BEAKER) (test xotc=372) 9.0 GM/DL 11.2-15.7 HEMATOCRIT (BEAKER) (test ismq=543) 29.1 % 34.1-44.9 MEAN CORPUSCULAR VOLUME (BEAKER) (test grtx=746) 100.7 fL 79.4-94.8 MEAN CORPUSCULAR HEMOGLOBIN (BEAKER) (test 31.1 pg 25.6-32.2 mqbd=159) MEAN CORPUSCULAR HEMOGLOBIN CONC (BEAKER) (test 30.9 GM/DL 32.2-35.5 lsuv=315) RED CELL DISTRIBUTION WIDTH (BEAKER) (test 18.9 % 11.7-14.4 xnwo=186) PLATELET COUNT (BEAKER) (test mlqu=139) 106 K/CU MM 150-450 MEAN PLATELET VOLUME (BEAKER) (test ttkw=761) 11.1 fL 9.4-12.3 NUCLEATED RED BLOOD CELLS (BEAKER) (test 0 /100 WBC 0-0 pstj=979) NEUTROPHILS RELATIVE PERCENT (BEAKER) (test 77 % mqsb=434) LYMPHOCYTES RELATIVE PERCENT (BEAKER) (test 10 % kjto=909) MONOCYTES RELATIVE PERCENT (BEAKER) (test 10 % velq=643) EOSINOPHILS RELATIVE PERCENT (BEAKER) (test 2 % dzfd=818) BASOPHILS RELATIVE PERCENT (BEAKER) (test 1 % zfpx=486) NEUTROPHILS ABSOLUTE COUNT (BEAKER) (test 1.97 K/ L 1.56-6.13 tfbu=432) LYMPHOCYTES ABSOLUTE COUNT (BEAKER) (test 0.25 K/ L 1.18-3.74 wghb=319) MONOCYTES ABSOLUTE COUNT (BEAKER) (test 0.25 K/ L 0.24-0.36 wrcb=254) EOSINOPHILS ABSOLUTE COUNT (BEAKER) (test 0.05 K/ L 0.04-0.36 jdyq=335) BASOPHILS ABSOLUTE COUNT (BEAKER) (test 0.02 K/ L 0.01-0.08 uect=999) IMMATURE GRANULOCYTES-RELATIVE PERCENT (BEAKER) 1 % 0-1 (test vgib=6063) CBC W/PLT COUNT & AUTO [id number] 05:15:00 Test Item Value Reference Range Comments WHITE BLOOD CELL COUNT (BEAKER) (test hdsp=991) 2.8 K/ L 3.5-10.5 RED BLOOD CELL COUNT (BEAKER) (test felp=808) 2.86 M/ L 3.93-5.22 HEMOGLOBIN (BEAKER) (test zjkn=510) 9.1 GM/DL 11.2-15.7 HEMATOCRIT (BEAKER) (test ftdl=998) 28.6 % 34.1-44.9 MEAN CORPUSCULAR VOLUME (BEAKER) (test plni=167) 100.0 fL 79.4-94.8 MEAN CORPUSCULAR HEMOGLOBIN (BEAKER) (test 31.8 pg 25.6-32.2 ajcl=116) MEAN CORPUSCULAR HEMOGLOBIN CONC (BEAKER) (test 31.8 GM/DL 32.2-35.5 smqs=992) RED CELL DISTRIBUTION WIDTH (BEAKER) (test 18.8 % 11.7-14.4 glyw=217) PLATELET COUNT (BEAKER) (test bnwp=282) 80 K/CU MM 150-450 MEAN PLATELET VOLUME (BEAKER) (test lpfi=351) 11.2 fL 9.4-12.3 NUCLEATED RED BLOOD CELLS (BEAKER) (test 0 /100 WBC 0-0 hnqo=514) NEUTROPHILS RELATIVE PERCENT (BEAKER) (test 76 % pbkx=821) LYMPHOCYTES RELATIVE PERCENT (BEAKER) (test 13 % nikw=076) MONOCYTES RELATIVE PERCENT (BEAKER) (test 8 % uqym=785) EOSINOPHILS RELATIVE PERCENT (BEAKER) (test 1 % zone=388) BASOPHILS RELATIVE PERCENT (BEAKER) (test 0 % zcmc=603) NEUTROPHILS ABSOLUTE COUNT (BEAKER) (test 2.13 K/ L 1.56-6.13 hcps=353) LYMPHOCYTES ABSOLUTE COUNT (BEAKER) (test 0.37 K/ L 1.18-3.74 dfdd=446) MONOCYTES ABSOLUTE COUNT (BEAKER) (test cwia=823) 0.23 K/ L 0.24-0.36 EOSINOPHILS ABSOLUTE COUNT (BEAKER) (test 0.04 K/ L 0.04-0.36 muii=686) BASOPHILS ABSOLUTE COUNT (BEAKER) (test ojln=528) 0.01 K/ L 0.01-0.08 IMMATURE GRANULOCYTES-RELATIVE PERCENT (BEAKER) 0 % 0-1 (test kpdt=9251) BASIC METABOLIC [id number] 04:41:00 Test Item Value Reference Range Comments SODIUM (BEAKER) (test 129 meq/L 136-145 jeat=358) POTASSIUM (BEAKER) (test 5.0 meq/L 3.5-5.1 tzwt=756) CHLORIDE (BEAKER) (test 96 meq/L 98-107 qoxt=961) CO2 (BEAKER) (test 20 meq/L 22-29 nzyy=778) BLOOD UREA NITROGEN 65 mg/dL 7-21 (BEAKER) (test ktog=953) CREATININE (BEAKER) (test 5.28 mg/dL 0.57-1.25 qlpk=408) GLUCOSE RANDOM (BEAKER) 101 mg/dL 70-105 (test bmfy=758) CALCIUM (BEAKER) (test 9.0 mg/dL 8.4-10.2 vsjh=425) EGFR (BEAKER) (test 9 mL/min/1.73 sq m ESTIMATED GFR IS NOT ocby=2214) ACCURATE CREATININE CLEARANCE IN PREDICTING GLOMERULAR FILTRATION RATE. ESTIMATED GFR IS NOT APPLICABLE FOR DIALYSIS PATIENTS. [id number] 04:39:00 Test Item Value Reference Range Comments PHOSPHORUS (BEAKER) (test ynvm=799) 3.4 mg/dL 2.3-4.7 [id number] 04:39:00 Test Item Value Reference Range Comments MAGNESIUM (BEAKER) (test evmv=192) 2.0 mg/dL 1.6-2.6 [id number] 23:54:00 Test Item Value Reference Range Comments HAPTOGLOBIN (BEAKER) (test xusd=685) < mg/dL 14-258 CBC W/PLT COUNT & AUTO [id number] 23:39:00 Test Item Value Reference Range Comments WHITE BLOOD CELL COUNT (BEAKER) (test fmua=653) 3.3 K/ L 3.5-10.5 RED BLOOD CELL COUNT (BEAKER) (test ptfo=959) 3.06 M/ L 3.93-5.22 HEMOGLOBIN (BEAKER) (test fnfg=131) 9.6 GM/DL 11.2-15.7 HEMATOCRIT (BEAKER) (test hrrv=617) 30.3 % 34.1-44.9 MEAN CORPUSCULAR VOLUME (BEAKER) (test shnl=366) 99.0 fL 79.4-94.8 MEAN CORPUSCULAR HEMOGLOBIN (BEAKER) (test 31.4 pg 25.6-32.2 nrdk=270) MEAN CORPUSCULAR HEMOGLOBIN CONC (BEAKER) (test 31.7 GM/DL 32.2-35.5 yzyd=452) RED CELL DISTRIBUTION WIDTH (BEAKER) (test 18.8 % 11.7-14.4 tidg=961) PLATELET COUNT (BEAKER) (test yogz=289) 98 K/CU MM 150-450 MEAN PLATELET VOLUME (BEAKER) (test cmcn=850) 11.5 fL 9.4-12.3 NUCLEATED RED BLOOD CELLS (BEAKER) (test 0 /100 WBC 0-0 cecg=453) NEUTROPHILS RELATIVE PERCENT (BEAKER) (test 79 % insp=308) LYMPHOCYTES RELATIVE PERCENT (BEAKER) (test 12 % yeos=730) MONOCYTES RELATIVE PERCENT (BEAKER) (test 7 % jvbn=797) EOSINOPHILS RELATIVE PERCENT (BEAKER) (test 1 % ohzw=819) BASOPHILS RELATIVE PERCENT (BEAKER) (test 1 % foxy=622) NEUTROPHILS ABSOLUTE COUNT (BEAKER) (test 2.64 K/ L 1.56-6.13 zglm=516) LYMPHOCYTES ABSOLUTE COUNT (BEAKER) (test 0.40 K/ L 1.18-3.74 lyjf=146) MONOCYTES ABSOLUTE COUNT (BEAKER) (test qegw=665) 0.22 K/ L 0.24-0.36 EOSINOPHILS ABSOLUTE COUNT (BEAKER) (test 0.04 K/ L 0.04-0.36 zsyl=693) BASOPHILS ABSOLUTE COUNT (BEAKER) (test mrpy=290) 0.02 K/ L 0.01-0.08 IMMATURE GRANULOCYTES-RELATIVE PERCENT (BEAKER) 0 % 0-1 (test exel=5834) HEPATITIS B SURFACE [id number] 21:44:00 Test Item Value Reference Range Comments HEPATITIS B SURFACE ANTIGEN (2) (BEAKER) (test Nonreactive Nonreactive awmz=1946) CBC W/PLT COUNT & AUTO [id number] 21:03:00 Test Item Value Reference Range Comments WHITE BLOOD CELL COUNT (BEAKER) (test vvjk=286) 3.3 K/ L 3.5-10.5 RED BLOOD CELL COUNT (BEAKER) (test ujae=922) 2.96 M/ L 3.93-5.22 HEMOGLOBIN (BEAKER) (test imtq=645) 9.4 GM/DL 11.2-15.7 HEMATOCRIT (BEAKER) (test xhed=828) 29.7 % 34.1-44.9 MEAN CORPUSCULAR VOLUME (BEAKER) (test zrak=887) 100.3 fL 79.4-94.8 MEAN CORPUSCULAR HEMOGLOBIN (BEAKER) (test 31.8 pg 25.6-32.2 fzfl=299) MEAN CORPUSCULAR HEMOGLOBIN CONC (BEAKER) (test 31.6 GM/DL 32.2-35.5 yshh=491) RED CELL DISTRIBUTION WIDTH (BEAKER) (test 19.0 % 11.7-14.4 nqyu=022) PLATELET COUNT (BEAKER) (test xfgd=052) 100 K/CU MM 150-450 MEAN PLATELET VOLUME (BEAKER) (test sejn=018) 10.2 fL 9.4-12.3 NUCLEATED RED BLOOD CELLS (BEAKER) (test 0 /100 WBC 0-0 pwza=488) NEUTROPHILS RELATIVE PERCENT (BEAKER) (test 80 % vhil=100) LYMPHOCYTES RELATIVE PERCENT (BEAKER) (test 10 % zzvh=543) MONOCYTES RELATIVE PERCENT (BEAKER) (test 8 % vbdv=714) EOSINOPHILS RELATIVE PERCENT (BEAKER) (test 1 % cuqu=264) BASOPHILS RELATIVE PERCENT (BEAKER) (test 0 % vljz=362) NEUTROPHILS ABSOLUTE COUNT (BEAKER) (test 2.59 K/ L 1.56-6.13 vgib=513) LYMPHOCYTES ABSOLUTE COUNT (BEAKER) (test 0.33 K/ L 1.18-3.74 tngm=169) MONOCYTES ABSOLUTE COUNT (BEAKER) (test 0.26 K/ L 0.24-0.36 lega=090) EOSINOPHILS ABSOLUTE COUNT (BEAKER) (test 0.04 K/ L 0.04-0.36 iedg=441) BASOPHILS ABSOLUTE COUNT (BEAKER) (test 0.01 K/ L 0.01-0.08 ujif=568) IMMATURE GRANULOCYTES-RELATIVE PERCENT (BEAKER) 1 % 0-1 (test lkas=1597) PERIPHERAL BLOOD SMEAR - HOLD [id number] 16:54:00 Test Item Value Reference Range Comments PERIPHERAL SMEAR SAVE (BEAKER) (test oqsd=4516) saved LACTATE DEHYDROGENASE (LDH)2018-04-25 16:40:00 Test Item Value Reference Range Comments LACTATE DEHYDROGENASE (BEAKER) (test bplz=925) 332 U/L 125-220 CBC W/PLT COUNT & AUTO [id number] 16:27:00 Test Item Value Reference Range Comments WHITE BLOOD CELL COUNT (BEAKER) (test sjnr=071) 2.7 K/ L 3.5-10.5 RED BLOOD CELL COUNT (BEAKER) (test cdmg=792) 3.15 M/ L 3.93-5.22 HEMOGLOBIN (BEAKER) (test bzdt=022) 10.0 GM/DL 11.2-15.7 HEMATOCRIT (BEAKER) (test yyqf=414) 31.5 % 34.1-44.9 MEAN CORPUSCULAR VOLUME (BEAKER) (test rrju=598) 100.0 fL 79.4-94.8 MEAN CORPUSCULAR HEMOGLOBIN (BEAKER) (test 31.7 pg 25.6-32.2 jzcr=738) MEAN CORPUSCULAR HEMOGLOBIN CONC (BEAKER) (test 31.7 GM/DL 32.2-35.5 yklc=441) RED CELL DISTRIBUTION WIDTH (BEAKER) (test 19.0 % 11.7-14.4 hgcg=161) PLATELET COUNT (BEAKER) (test qyzs=124) 96 K/CU MM 150-450 MEAN PLATELET VOLUME (BEAKER) (test pkxn=369) 9.8 fL 9.4-12.3 NUCLEATED RED BLOOD CELLS (BEAKER) (test 0 /100 WBC 0-0 sjee=772) NEUTROPHILS RELATIVE PERCENT (BEAKER) (test 76 % jwlv=608) LYMPHOCYTES RELATIVE PERCENT (BEAKER) (test 12 % eldq=668) MONOCYTES RELATIVE PERCENT (BEAKER) (test 10 % dgka=470) EOSINOPHILS RELATIVE PERCENT (BEAKER) (test 1 % mxna=009) BASOPHILS RELATIVE PERCENT (BEAKER) (test 1 % pcze=188) NEUTROPHILS ABSOLUTE COUNT (BEAKER) (test 2.02 K/ L 1.56-6.13 dlav=292) LYMPHOCYTES ABSOLUTE COUNT (BEAKER) (test 0.31 K/ L 1.18-3.74 wyup=568) MONOCYTES ABSOLUTE COUNT (BEAKER) (test qkvl=509) 0.27 K/ L 0.24-0.36 EOSINOPHILS ABSOLUTE COUNT (BEAKER) (test 0.03 K/ L 0.04-0.36 thze=569) BASOPHILS ABSOLUTE COUNT (BEAKER) (test tscb=150) 0.02 K/ L 0.01-0.08 IMMATURE GRANULOCYTES-RELATIVE PERCENT (BEAKER) 1 % 0-1 (test zxfh=6961) [id number] 07:39:00 Test Item Value Reference Range Comments PHOSPHORUS (BEAKER) (test qbgd=337) 3.1 mg/dL 2.3-4.7 [id number] 07:39:00 Test Item Value Reference Range Comments MAGNESIUM (BEAKER) (test atxt=128) 2.0 mg/dL 1.6-2.6 BASIC METABOLIC [id number] 07:39:00 Test Item Value Reference Range Comments SODIUM (BEAKER) (test 132 meq/L 136-145 lfjn=959) POTASSIUM (BEAKER) (test 4.2 meq/L 3.5-5.1 qoio=997) CHLORIDE (BEAKER) (test 97 meq/L 98-107 mqqc=607) CO2 (BEAKER) (test 23 meq/L 22-29 prcu=446) BLOOD UREA NITROGEN 42 mg/dL 7-21 (BEAKER) (test kloc=467) CREATININE (BEAKER) (test 3.49 mg/dL 0.57-1.25 cqnv=336) GLUCOSE RANDOM (BEAKER) 84 mg/dL 70-105 (test dmwm=400) CALCIUM (BEAKER) (test 9.0 mg/dL 8.4-10.2 ivhx=424) EGFR (BEAKER) (test 14 mL/min/1.73 sq m ESTIMATED GFR IS NOT ynxf=6644) ACCURATE CREATININE CLEARANCE IN PREDICTING GLOMERULAR FILTRATION RATE. ESTIMATED GFR IS NOT APPLICABLE FOR DIALYSIS PATIENTS. CBC W/PLT COUNT & AUTO [id number] 07:24:00 Test Item Value Reference Range Comments WHITE BLOOD CELL COUNT (BEAKER) (test woxv=589) 2.8 K/ L 3.5-10.5 RED BLOOD CELL COUNT (BEAKER) (test zkwj=380) 2.96 M/ L 3.93-5.22 HEMOGLOBIN (BEAKER) (test ernz=811) 9.5 GM/DL 11.2-15.7 HEMATOCRIT (BEAKER) (test qsqq=597) 29.8 % 34.1-44.9 MEAN CORPUSCULAR VOLUME (BEAKER) (test yswf=014) 100.7 fL 79.4-94.8 MEAN CORPUSCULAR HEMOGLOBIN (BEAKER) (test 32.1 pg 25.6-32.2 sbdw=665) MEAN CORPUSCULAR HEMOGLOBIN CONC (BEAKER) (test 31.9 GM/DL 32.2-35.5 xkqt=596) RED CELL DISTRIBUTION WIDTH (BEAKER) (test 19.3 % 11.7-14.4 rdcx=090) PLATELET COUNT (BEAKER) (test hsip=099) 95 K/CU MM 150-450 MEAN PLATELET VOLUME (BEAKER) (test iild=196) 11.3 fL 9.4-12.3 NUCLEATED RED BLOOD CELLS (BEAKER) (test 0 /100 WBC 0-0 zoxj=559) NEUTROPHILS RELATIVE PERCENT (BEAKER) (test 77 % qqjl=967) LYMPHOCYTES RELATIVE PERCENT (BEAKER) (test 12 % ggfy=177) MONOCYTES RELATIVE PERCENT (BEAKER) (test 9 % bnxw=835) EOSINOPHILS RELATIVE PERCENT (BEAKER) (test 1 % kwvj=273) BASOPHILS RELATIVE PERCENT (BEAKER) (test 0 % rbev=155) NEUTROPHILS ABSOLUTE COUNT (BEAKER) (test 2.16 K/ L 1.56-6.13 sotp=112) LYMPHOCYTES ABSOLUTE COUNT (BEAKER) (test 0.32 K/ L 1.18-3.74 juwi=788) MONOCYTES ABSOLUTE COUNT (BEAKER) (test zizi=162) 0.26 K/ L 0.24-0.36 EOSINOPHILS ABSOLUTE COUNT (BEAKER) (test 0.03 K/ L 0.04-0.36 pfep=961) BASOPHILS ABSOLUTE COUNT (BEAKER) (test mwxg=220) 0.01 K/ L 0.01-0.08 IMMATURE GRANULOCYTES-RELATIVE PERCENT (BEAKER) 0 % 0-1 (test psrh=5864) BLOOD [id number] 06:00:00 Test Item Value Reference Range Comments CULTURE (BEAKER) (test kxfu=7610) No growth in 5 days ANG, CV ACCESS, [id number] 17:46:00Reason for exam:->TDC placement for outpatient HDFINAL REPORT Tunneled dialysis catheter insertion. History: Renal failure. Modality: Sonography and fluoroscopy. Sedation: Versed 0.5 mg and fentanyl 25 mcg was given intravenously for conscious sedation. Vital signs were monitored throughout the procedure by a nurse, and remained stable. Physician intra-service time was 15 minutes. Camera Technician: Blessing. [place] [employer] Member: None. Approach: Right internal jugular vein Estimatedblood [...] needle into the right atrium. A 4 [place] micropuncture sheath was placed. A subcutaneous tunnel was created in the right anterior chest wall by blunt dissection. A [address] [place] 2catheter was brought through the tunnel. [...] guidance and conscious sedation. Signed: Albert Ojeda MDReport Verified Date/Time: 04/01/2018 17:46:56 Reading Location: [place] [address] Angio Body Reading Room TISSUE [id number] 11:52:00Surgical Pathology Report Case: [id number] Authorizing Provider: Michelle Ram MD Collected: 03/24/2018 1253 Ordering Location: [address] Received: 03/24/2018 1254 Service Pathologist: Dennise Jo MD Specimen: Kidney, Left, Left kidney needle biopsy KIDNEY, LEFT, NEEDLE BIOPSIES- ACUTE THROMBOTIC MICROANGIOPATHY- MODERATE INTERSTITIAL FIBROSIS AND TUBULAR ATROPHY ( ~40%) Signing Pathologist Direct Phone Line: [phone] signed by Dennise Jo MD on 03/31/2018 [...] Dr. Vital on 03/25/2018 at 10.15 am. 12205, [address] X3, [id number], [id number] x8, [id number] renal failure evaluationNative left kidney biopsyThe specimen [...] with extensive effacement of foot processes.BASIC METABOLIC [id number] 06:14:00 Test Item Value Reference Range Comments SODIUM (BEAKER) (test 133 meq/L 136-145 ryhi=007) POTASSIUM (BEAKER) (test 4.6 meq/L 3.5-5.1 ppzw=867) CHLORIDE (BEAKER) (test 99 meq/L 98-107 rjwx=403) CO2 (BEAKER) (test 24 meq/L 22-29 kgmi=902) BLOOD UREA NITROGEN 45 mg/dL 7-21 (BEAKER) (test veth=696) CREATININE (BEAKER) (test 4.49 mg/dL 0.57-1.25 qimh=413) GLUCOSE RANDOM (BEAKER) 95 mg/dL 70-105 (test lfvq=106) CALCIUM (BEAKER) (test 8.1 mg/dL 8.4-10.2 sepk=161) EGFR (BEAKER) (test 10 mL/min/1.73 sq m ESTIMATED GFR IS NOT wiua=8630) ACCURATE CREATININE CLEARANCE IN PREDICTING GLOMERULAR FILTRATION RATE. ESTIMATED GFR IS NOT APPLICABLE FOR DIALYSIS PATIENTS. [id number] 06:05:00 Test Item Value Reference Range Comments MAGNESIUM (BEAKER) (test qzak=154) 1.9 mg/dL 1.6-2.6 CBC W/PLT COUNT & AUTO [id number] 05:20:00 Test Item Value Reference Range Comments WHITE BLOOD CELL COUNT (BEAKER) (test edum=875) 4.1 K/ L 3.5-10.5 RED BLOOD CELL COUNT (BEAKER) (test bhwx=647) 2.55 M/ L 3.93-5.22 HEMOGLOBIN (BEAKER) (test pjxn=093) 8.0 GM/DL 11.2-15.7 HEMATOCRIT (BEAKER) (test gqrg=770) 26.0 % 34.1-44.9 MEAN CORPUSCULAR VOLUME (BEAKER) (test olzg=245) 102.0 fL 79.4-94.8 MEAN CORPUSCULAR HEMOGLOBIN (BEAKER) (test 31.4 pg 25.6-32.2 hxds=947) MEAN CORPUSCULAR HEMOGLOBIN CONC (BEAKER) (test 30.8 GM/DL 32.2-35.5 ieyc=245) RED CELL DISTRIBUTION WIDTH (BEAKER) (test 18.9 % 11.7-14.4 kxnf=645) PLATELET COUNT (BEAKER) (test gcor=679) 54 K/CU MM 150-450 MEAN PLATELET VOLUME (BEAKER) (test eqpj=717) 12.9 fL 9.4-12.3 NUCLEATED RED BLOOD CELLS (BEAKER) (test 0 /100 WBC 0-0 oxrw=211) NEUTROPHILS RELATIVE PERCENT (BEAKER) (test 84 % zanr=865) LYMPHOCYTES RELATIVE PERCENT (BEAKER) (test 8 % zdle=935) MONOCYTES RELATIVE PERCENT (BEAKER) (test 7 % yonn=901) EOSINOPHILS RELATIVE PERCENT (BEAKER) (test 1 % yhnn=338) BASOPHILS RELATIVE PERCENT (BEAKER) (test 0 % nnbo=350) NEUTROPHILS ABSOLUTE COUNT (BEAKER) (test 3.45 K/ L 1.56-6.13 tnna=272) LYMPHOCYTES ABSOLUTE COUNT (BEAKER) (test 0.33 K/ L 1.18-3.74 hrhr=839) MONOCYTES ABSOLUTE COUNT (BEAKER) (test dlhg=821) 0.28 K/ L 0.24-0.36 EOSINOPHILS ABSOLUTE COUNT (BEAKER) (test 0.03 K/ L 0.04-0.36 itsl=001) BASOPHILS ABSOLUTE COUNT (BEAKER) (test ykij=859) 0.01 K/ L 0.01-0.08 IMMATURE GRANULOCYTES-RELATIVE PERCENT (BEAKER) 1 % 0-1 (test qsdi=1262) POCT-GLUCOSE [id number] 18:43:00 Test Item Value Reference Range Comments POC-GLUCOSE METER (BEAKER) 121 mg/dL 70-[address] [facility] [address] [facility] (test xhdr=7386) [facility] [address] BASIC METABOLIC [id number] 06:46:00 Test Item Value Reference Range Comments SODIUM (BEAKER) (test 133 meq/L 136-145 wcln=095) POTASSIUM (BEAKER) (test 4.1 meq/L 3.5-5.1 yskn=560) CHLORIDE (BEAKER) (test 98 meq/L 98-107 nqwv=619) CO2 (BEAKER) (test 25 meq/L 22-29 nxkp=636) BLOOD UREA NITROGEN 27 mg/dL 7-21 (BEAKER) (test fgvb=934) CREATININE (BEAKER) (test 2.91 mg/dL 0.57-1.25 lrpc=332) GLUCOSE RANDOM (BEAKER) 92 mg/dL 70-105 (test amxn=445) CALCIUM (BEAKER) (test 8.3 mg/dL 8.4-10.2 pnav=897) EGFR (BEAKER) (test 17 mL/min/1.73 sq m ESTIMATED GFR IS NOT pjpo=9663) ACCURATE CREATININE CLEARANCE IN PREDICTING GLOMERULAR FILTRATION RATE. ESTIMATED GFR IS NOT APPLICABLE FOR DIALYSIS PATIENTS. [id number] 06:34:00 Test Item Value Reference Range Comments MAGNESIUM (BEAKER) (test qhra=256) 1.9 mg/dL 1.6-2.6 [id number] 06:13:00 Test Item Value Reference Range Comments PROTIME (BEAKER) (test xhcd=401) 16.7 seconds 11.7-14.7 INR (BEAKER) (test fjvg=496) 1.4 <=5.9 PARTIAL THROMBOPLASTIN TIME (BEAKER) (test 39.8 seconds 22.5-36.0 zydf=962) RECOMMENDED COUMADIN/WARFARIN INR THERAPY RANGESSTANDARD DOSE: 2.0 - 3.0 Includes: PROPHYLAXIS forvenous thrombosis, systemic embolization; TREATMENT for venous thrombosis and/or pulmonary embolus.HIGH RISK: Target INR is 2.5-3.5 for patients with mechanical heart valves.CBC W/PLT COUNT & AUTO [id number] 06:11:00 Test Item Value Reference Range Comments WHITE BLOOD CELL COUNT (BEAKER) (test iqxb=904) 3.2 K/ L 3.5-10.5 RED BLOOD CELL COUNT (BEAKER) (test ctku=597) 2.51 M/ L 3.93-5.22 HEMOGLOBIN (BEAKER) (test dmcd=139) 8.0 GM/DL 11.2-15.7 HEMATOCRIT (BEAKER) (test tlbd=816) 25.7 % 34.1-44.9 MEAN CORPUSCULAR VOLUME (BEAKER) (test vjlk=350) 102.4 fL 79.4-94.8 MEAN CORPUSCULAR HEMOGLOBIN (BEAKER) (test 31.9 pg 25.6-32.2 hjho=692) MEAN CORPUSCULAR HEMOGLOBIN CONC (BEAKER) (test 31.1 GM/DL 32.2-35.5 zxfx=685) RED CELL DISTRIBUTION WIDTH (BEAKER) (test 19.3 % 11.7-14.4 yaes=887) PLATELET COUNT (BEAKER) (test shlw=322) 49 K/CU MM 150-450 MEAN PLATELET VOLUME (BEAKER) (test nagy=824) 12.6 fL 9.4-12.3 NUCLEATED RED BLOOD CELLS (BEAKER) (test 0 /100 WBC 0-0 xqzg=115) NEUTROPHILS RELATIVE PERCENT (BEAKER) (test 82 % lcap=102) LYMPHOCYTES RELATIVE PERCENT (BEAKER) (test 9 % lvjj=366) MONOCYTES RELATIVE PERCENT (BEAKER) (test 9 % efkj=531) EOSINOPHILS RELATIVE PERCENT (BEAKER) (test 0 % yprd=025) BASOPHILS RELATIVE PERCENT (BEAKER) (test 0 % rsbc=127) NEUTROPHILS ABSOLUTE COUNT (BEAKER) (test 2.60 K/ L 1.56-6.13 uuxc=396) LYMPHOCYTES ABSOLUTE COUNT (BEAKER) (test 0.29 K/ L 1.18-3.74 ceeo=700) MONOCYTES ABSOLUTE COUNT (BEAKER) (test dqqx=148) 0.27 K/ L 0.24-0.36 EOSINOPHILS ABSOLUTE COUNT (BEAKER) (test 0.00 K/ L 0.04-0.36 ltzq=625) BASOPHILS ABSOLUTE COUNT (BEAKER) (test yuni=504) 0.01 K/ L 0.01-0.08 IMMATURE GRANULOCYTES-RELATIVE PERCENT (BEAKER) 0 % 0-1 (test upjg=3420) BASIC METABOLIC [id number] 07:21:00 Test Item Value Reference Range Comments SODIUM (BEAKER) (test 135 meq/L 136-145 plfp=992) POTASSIUM (BEAKER) (test 4.1 meq/L 3.5-5.1 belc=094) CHLORIDE (BEAKER) (test 102 meq/L 98-107 npfh=123) CO2 (BEAKER) (test 24 meq/L 22-29 ccfx=370) BLOOD UREA NITROGEN 45 mg/dL 7-21 (BEAKER) (test zmvo=607) CREATININE (BEAKER) (test 4.55 mg/dL 0.57-1.25 dube=906) GLUCOSE RANDOM (BEAKER) 106 mg/dL 70-105 (test euwc=102) CALCIUM (BEAKER) (test 7.8 mg/dL 8.4-10.2 rjyp=223) EGFR (BEAKER) (test 10 mL/min/1.73 sq m ESTIMATED GFR IS NOT evvx=1601) ACCURATE CREATININE CLEARANCE IN PREDICTING GLOMERULAR FILTRATION RATE. ESTIMATED GFR IS NOT APPLICABLE FOR DIALYSIS PATIENTS. [id number] 07:08:00 Test Item Value Reference Range Comments MAGNESIUM (BEAKER) (test mojp=467) 1.8 mg/dL 1.6-2.6 CBC W/PLT COUNT & AUTO [id number] 06:53:00 Test Item Value Reference Range Comments WHITE BLOOD CELL COUNT (BEAKER) (test umaw=786) 2.9 K/ L 3.5-10.5 RED BLOOD CELL COUNT (BEAKER) (test bdyw=025) 2.45 M/ L 3.93-5.22 HEMOGLOBIN (BEAKER) (test ytoy=761) 8.0 GM/DL 11.2-15.7 HEMATOCRIT (BEAKER) (test sgly=464) 25.1 % 34.1-44.9 MEAN CORPUSCULAR VOLUME (BEAKER) (test zgqj=227) 102.4 fL 79.4-94.8 MEAN CORPUSCULAR HEMOGLOBIN (BEAKER) (test 32.7 pg 25.6-32.2 eeyc=980) MEAN CORPUSCULAR HEMOGLOBIN CONC (BEAKER) (test 31.9 GM/DL 32.2-35.5 nlif=038) RED CELL DISTRIBUTION WIDTH (BEAKER) (test 19.7 % 11.7-14.4 wtkm=282) PLATELET COUNT (BEAKER) (test vfmq=024) 41 K/CU MM 150-450 MEAN PLATELET VOLUME (BEAKER) (test kbdn=900) 11.7 fL 9.4-12.3 NUCLEATED RED BLOOD CELLS (BEAKER) (test 0 /100 WBC 0-0 dwwf=543) NEUTROPHILS RELATIVE PERCENT (BEAKER) (test 75 % ljpm=406) LYMPHOCYTES RELATIVE PERCENT (BEAKER) (test 13 % rtux=865) MONOCYTES RELATIVE PERCENT (BEAKER) (test 11 % lbbo=693) EOSINOPHILS RELATIVE PERCENT (BEAKER) (test 0 % xgeg=750) BASOPHILS RELATIVE PERCENT (BEAKER) (test 0 % vhzz=680) NEUTROPHILS ABSOLUTE COUNT (BEAKER) (test 2.13 K/ L 1.56-6.13 mjya=334) LYMPHOCYTES ABSOLUTE COUNT (BEAKER) (test 0.38 K/ L 1.18-3.74 qxpg=277) MONOCYTES ABSOLUTE COUNT (BEAKER) (test rxto=248) 0.32 K/ L 0.24-0.36 EOSINOPHILS ABSOLUTE COUNT (BEAKER) (test 0.01 K/ L 0.04-0.36 akmd=987) BASOPHILS ABSOLUTE COUNT (BEAKER) (test jgzn=762) 0.01 K/ L 0.01-0.08 IMMATURE GRANULOCYTES-RELATIVE PERCENT (BEAKER) 0 % 0-1 (test uzab=7769) RAD, CHEST, 1 VIEW, NON [id number] 22:19:00Reason for exam:-> pneumoniaShould this be performed [...] MDReport Verified Date/Time: 03/28/2018 22:19:58 Reading Location: [address] Reading Room [id number] 05:56: 00 Test Item Value Reference Range Comments MAGNESIUM (BEAKER) (test labw=492) 1.9 mg/dL 1.6-2.6 COMPREHENSIVE METABOLIC [id number] 03:24:00 Test Item Value Reference Range Comments TOTAL PROTEIN (BEAKER) 5.9 gm/dL 6.0-8.3 (test witu=206) ALBUMIN (BEAKER) (test 2.5 g/dL 3.5-5.0 fgmt=6088) ALKALINE PHOSPHATASE 42 U/L 40-150 (BEAKER) (test gevb=053) BILIRUBIN TOTAL (BEAKER) 1.0 mg/dL 0.2-1.2 (test rszz=704) SODIUM (BEAKER) (test 135 meq/L 136-145 tdbm=510) POTASSIUM (BEAKER) (test 4.1 meq/L 3.5-5.1 touo=709) CHLORIDE (BEAKER) (test 102 meq/L 98-107 szey=654) CO2 (BEAKER) (test 26 meq/L 22-29 rrvc=131) BLOOD UREA NITROGEN 24 mg/dL 7-21 (BEAKER) (test caoh=673) CREATININE (BEAKER) (test 3.02 mg/dL 0.57-1.25 dssa=248) GLUCOSE RANDOM (BEAKER) 121 mg/dL 70-105 (test thyb=620) CALCIUM (BEAKER) (test 8.2 mg/dL 8.4-10.2 ehuz=484) AST (SGOT) (BEAKER) (test 35 U/L 5-34 dmfk=291) ALT (SGPT) (BEAKER) (test 13 U/L 6-55 acsg=367) EGFR (BEAKER) (test 16 mL/min/1.73 sq m ESTIMATED GFR IS NOT tpjb=2089) ACCURATE CREATININE CLEARANCE IN PREDICTING GLOMERULAR FILTRATION RATE. ESTIMATED GFR IS NOT APPLICABLE FOR DIALYSIS PATIENTS. LACTIC ACID, VENOUS, WHOLE [id number] 03:15:00 Test Item Value Reference Range Comments LACTATE BLOOD VENOUS (2) (BEAKER) (test 1.1 mmol/L 0.5-2.2 wres=9463) Effective 11/28/2015: Units/Reference Range ChangeNew: 0.5-2.2 mmol/L Previous: 5 -20 mg/dLCBC W/PLT COUNT & AUTO [id number] 02:57:00 Test Item Value Reference Range Comments WHITE BLOOD CELL COUNT (BEAKER) (test lldu=653) 2.7 K/ L 3.5-10.5 RED BLOOD CELL COUNT (BEAKER) (test eisz=313) 2.45 M/ L 3.93-5.22 HEMOGLOBIN (BEAKER) (test xmde=214) 8.0 GM/DL 11.2-15.7 HEMATOCRIT (BEAKER) (test setm=480) 24.9 % 34.1-44.9 MEAN CORPUSCULAR VOLUME (BEAKER) (test nzui=961) 101.6 fL 79.4-94.8 MEAN CORPUSCULAR HEMOGLOBIN (BEAKER) (test 32.7 pg 25.6-32.2 tpeg=419) MEAN CORPUSCULAR HEMOGLOBIN CONC (BEAKER) (test 32.1 GM/DL 32.2-35.5 zaeu=407) RED CELL DISTRIBUTION WIDTH (BEAKER) (test 20.7 % 11.7-14.4 atqt=497) PLATELET COUNT (BEAKER) (test qean=720) 44 K/CU MM 150-450 MEAN PLATELET VOLUME (BEAKER) (test qude=479) 11.9 fL 9.4-12.3 NUCLEATED RED BLOOD CELLS (BEAKER) (test 0 /100 WBC 0-0 jaif=996) NEUTROPHILS RELATIVE PERCENT (BEAKER) (test 75 % itov=550) LYMPHOCYTES RELATIVE PERCENT (BEAKER) (test 12 % mpcb=070) MONOCYTES RELATIVE PERCENT (BEAKER) (test 12 % ssti=682) EOSINOPHILS RELATIVE PERCENT (BEAKER) (test 0 % rxgg=288) BASOPHILS RELATIVE PERCENT (BEAKER) (test 0 % qhza=674) NEUTROPHILS ABSOLUTE COUNT (BEAKER) (test 2.05 K/ L 1.56-6.13 gvnz=053) LYMPHOCYTES ABSOLUTE COUNT (BEAKER) (test 0.32 K/ L 1.18-3.74 slym=024) MONOCYTES ABSOLUTE COUNT (BEAKER) (test bvhm=703) 0.34 K/ L 0.24-0.36 EOSINOPHILS ABSOLUTE COUNT (BEAKER) (test 0.01 K/ L 0.04-0.36 nbvd=313) BASOPHILS ABSOLUTE COUNT (BEAKER) (test filk=061) 0.01 K/ L 0.01-0.08 IMMATURE GRANULOCYTES-RELATIVE PERCENT (BEAKER) 0 % 0-1 (test zjst=8265) POCT-GLUCOSE [id number] 02:55:00 Test Item Value Reference Range Comments POC-GLUCOSE METER (BEAKER) 148 mg/dL 70-[address] [facility] [address] (test oarc=0237) [facility] [address] BASIC METABOLIC [id number] 06:29:00 Test Item Value Reference Range Comments SODIUM (BEAKER) (test 129 meq/L 136-145 ioxg=023) POTASSIUM (BEAKER) (test 3.5 meq/L 3.5-5.1 wmec=584) CHLORIDE (BEAKER) (test 97 meq/L 98-107 tqez=500) CO2 (BEAKER) (test 25 meq/L 22-29 kqcw=211) BLOOD UREA NITROGEN 44 mg/dL 7-21 (BEAKER) (test avez=112) CREATININE (BEAKER) (test 4.23 mg/dL 0.57-1.25 xtas=956) GLUCOSE RANDOM (BEAKER) 118 mg/dL 70-105 (test jdjv=433) CALCIUM (BEAKER) (test 7.0 mg/dL 8.4-10.2 accx=612) EGFR (BEAKER) (test 11 mL/min/1.73 sq m ESTIMATED GFR IS NOT phur=0726) ACCURATE CREATININE CLEARANCE IN PREDICTING GLOMERULAR FILTRATION RATE. ESTIMATED GFR IS NOT APPLICABLE FOR DIALYSIS PATIENTS. [id number] 06:27:00 Test Item Value Reference Range Comments MAGNESIUM (BEAKER) (test kpoz=700) 1.8 mg/dL 1.6-2.6 CBC W/PLT COUNT & AUTO [id number] 06:09:00 Test Item Value Reference Range Comments WHITE BLOOD CELL COUNT (BEAKER) (test efrb=934) 3.1 K/ L 3.5-10.5 RED BLOOD CELL COUNT (BEAKER) (test pxis=544) 1.93 M/ L 3.93-5.22 HEMOGLOBIN (BEAKER) (test idie=959) 6.4 GM/DL 11.2-15.7 HEMATOCRIT (BEAKER) (test ezop=911) 20.6 % 34.1-44.9 MEAN CORPUSCULAR VOLUME (BEAKER) (test bnex=743) 106.7 fL 79.4-94.8 MEAN CORPUSCULAR HEMOGLOBIN (BEAKER) (test 33.2 pg 25.6-32.2 bqai=255) MEAN CORPUSCULAR HEMOGLOBIN CONC (BEAKER) (test 31.1 GM/DL 32.2-35.5 jspx=776) RED CELL DISTRIBUTION WIDTH (BEAKER) (test 20.5 % 11.7-14.4 esvl=302) PLATELET COUNT (BEAKER) (test ampy=624) 48 K/CU MM 150-450 MEAN PLATELET VOLUME (BEAKER) (test whjo=777) 12.1 fL 9.4-12.3 NUCLEATED RED BLOOD CELLS (BEAKER) (test 0 /100 WBC 0-0 pjde=920) NEUTROPHILS RELATIVE PERCENT (BEAKER) (test 77 % zjav=154) LYMPHOCYTES RELATIVE PERCENT (BEAKER) (test 9 % ehpt=722) MONOCYTES RELATIVE PERCENT (BEAKER) (test 13 % twks=070) EOSINOPHILS RELATIVE PERCENT (BEAKER) (test 0 % bsjk=324) BASOPHILS RELATIVE PERCENT (BEAKER) (test 0 % gozf=614) NEUTROPHILS ABSOLUTE COUNT (BEAKER) (test 2.42 K/ L 1.56-6.13 escl=036) LYMPHOCYTES ABSOLUTE COUNT (BEAKER) (test 0.27 K/ L 1.18-3.74 dfgr=855) MONOCYTES ABSOLUTE COUNT (BEAKER) (test jyyc=985) 0.39 K/ L 0.24-0.36 EOSINOPHILS ABSOLUTE COUNT (BEAKER) (test 0.01 K/ L 0.04-0.36 bhqu=424) BASOPHILS ABSOLUTE COUNT (BEAKER) (test ybvm=251) 0.01 K/ L 0.01-0.08 IMMATURE GRANULOCYTES-RELATIVE PERCENT (BEAKER) 1 % 0-1 (test wteo=2972) RAD, SHOULDER, COMPLETE (MIN 2 VIEWS), [id number] 17:48:00Reason for exam:-& gt;r/o FxShould this be [...] fracture or dislocation. Signed : Steve Torres Verified Date/Time: 03/26/2018 17:48:06 Reading Location: [facility] Radiology Reading Room [facility] METABOLIC [id number] 07:10:00 Test Item Value Reference Range Comments SODIUM (BEAKER) (test 133 meq/L 136-145 fgfr=454) POTASSIUM (BEAKER) (test 3.6 meq/L 3.5-5.1 yvjf=419) CHLORIDE (BEAKER) (test 101 meq/L 98-107 smsq=170) CO2 (BEAKER) (test 24 meq/L 22-29 rwdh=590) BLOOD UREA NITROGEN 26 mg/dL 7-21 (BEAKER) (test mfcs=389) CREATININE (BEAKER) (test 2.73 mg/dL 0.57-1.25 ynnn=140) GLUCOSE RANDOM (BEAKER) 117 mg/dL 70-105 (test erln=503) CALCIUM (BEAKER) (test 7.5 mg/dL 8.4-10.2 yvrv=574) EGFR (BEAKER) (test 18 mL/min/1.73 sq m ESTIMATED GFR IS NOT hgdx=7068) ACCURATE CREATININE CLEARANCE IN PREDICTING GLOMERULAR FILTRATION RATE. ESTIMATED GFR IS NOT APPLICABLE FOR DIALYSIS PATIENTS. [id number] 07:08:00 Test Item Value Reference Range Comments MAGNESIUM (BEAKER) (test zyxr=270) 1.9 mg/dL 1.6-2.6 CBC W/PLT COUNT & AUTO [id number] 06:34:00 Test Item Value Reference Range Comments WHITE BLOOD CELL COUNT (BEAKER) (test dddb=590) 3.1 K/ L 3.5-10.5 RED BLOOD CELL COUNT (BEAKER) (test czum=001) 2.18 M/ L 3.93-5.22 HEMOGLOBIN (BEAKER) (test orkn=493) 7.2 GM/DL 11.2-15.7 HEMATOCRIT (BEAKER) (test lczy=565) 23.1 % 34.1-44.9 MEAN CORPUSCULAR VOLUME (BEAKER) (test appo=195) 106.0 fL 79.4-94.8 MEAN CORPUSCULAR HEMOGLOBIN (BEAKER) (test 33.0 pg 25.6-32.2 tsng=479) MEAN CORPUSCULAR HEMOGLOBIN CONC (BEAKER) (test 31.2 GM/DL 32.2-35.5 iulg=688) RED CELL DISTRIBUTION WIDTH (BEAKER) (test 21.7 % 11.7-14.4 ssyn=103) PLATELET COUNT (BEAKER) (test qisk=466) 45 K/CU MM 150-450 MEAN PLATELET VOLUME (BEAKER) (test plfo=359) 11.8 fL 9.4-12.3 NUCLEATED RED BLOOD CELLS (BEAKER) (test 0 /100 WBC 0-0 qaal=767) NEUTROPHILS RELATIVE PERCENT (BEAKER) (test 83 % bmno=376) LYMPHOCYTES RELATIVE PERCENT (BEAKER) (test 7 % meiq=260) MONOCYTES RELATIVE PERCENT (BEAKER) (test 10 % yodq=171) EOSINOPHILS RELATIVE PERCENT (BEAKER) (test 0 % lwtn=589) BASOPHILS RELATIVE PERCENT (BEAKER) (test 0 % wlbt=711) NEUTROPHILS ABSOLUTE COUNT (BEAKER) (test 2.55 K/ L 1.56-6.13 oeai=919) LYMPHOCYTES ABSOLUTE COUNT (BEAKER) (test 0.20 K/ L 1.18-3.74 roqc=271) MONOCYTES ABSOLUTE COUNT (BEAKER) (test qdhh=718) 0.31 K/ L 0.24-0.36 EOSINOPHILS ABSOLUTE COUNT (BEAKER) (test 0.00 K/ L 0.04-0.36 afkj=383) BASOPHILS ABSOLUTE COUNT (BEAKER) (test dawe=896) 0.01 K/ L 0.01-0.08 IMMATURE GRANULOCYTES-RELATIVE PERCENT (BEAKER) 1 % 0-1 (test pmyy=5975) CT, [id number] 02:57:00R/o retroperitoneal hematoma s/p kidney bxFINAL REPORT [...] lower lobes. Unchanged splenomegaly. Signed: Kellee Islas [facility] Verified Date/Time: 03/26/2018 02:57:14 Reading Location: [address] Transitional Reading Room Electronically signed by: KELELE ISLAS MD on 2017 02:57 AMLACTATE DEHYDROGENASE (LDH)2018-03-25 14:50:00 Test Item Value Reference Range Comments LACTATE DEHYDROGENASE (BEAKER) (test suua=779) 722 U/L 125-220 PERIPHERAL BLOOD SMEAR - HOLD [id number] 14:37:00 Test Item Value Reference Range Comments PERIPHERAL SMEAR SAVE (BEAKER) (test qmjk=0852) saved BASIC METABOLIC [id number] 07:08:00 Test Item Value Reference Range Comments SODIUM (BEAKER) (test 127 meq/L 136-145 movy=006) POTASSIUM (BEAKER) (test 4.3 meq/L 3.5-5.1 wicj=438) CHLORIDE (BEAKER) (test 94 meq/L 98-107 nfhs=193) CO2 (BEAKER) (test 23 meq/L 22-29 mawo=681) BLOOD UREA NITROGEN 56 mg/dL 7-21 (BEAKER) (test hfwe=554) CREATININE (BEAKER) (test 4.30 mg/dL 0.57-1.25 kpzr=640) GLUCOSE RANDOM (BEAKER) 110 mg/dL 70-105 (test djmc=913) CALCIUM (BEAKER) (test 6.4 mg/dL 8.4-10.2 jaaa=371) EGFR (BEAKER) (test 11 mL/min/1.73 sq m ESTIMATED GFR IS NOT pkis=8572) ACCURATE CREATININE CLEARANCE IN PREDICTING GLOMERULAR FILTRATION RATE. ESTIMATED GFR IS NOT APPLICABLE FOR DIALYSIS PATIENTS. [id number] 07:04:00 Test Item Value Reference Range Comments MAGNESIUM (BEAKER) (test lenx=985) 1.9 mg/dL 1.6-2.6 CBC W/PLT COUNT & AUTO [id number] 06:27:00 Test Item Value Reference Range Comments WHITE BLOOD CELL COUNT (BEAKER) (test vcmw=228) 5.3 K/ L 3.5-10.5 RED BLOOD CELL COUNT (BEAKER) (test jojx=887) 2.39 M/ L 3.93-5.22 HEMOGLOBIN (BEAKER) (test zfgz=070) 7.9 GM/DL 11.2-15.7 HEMATOCRIT (BEAKER) (test mlfn=448) 25.0 % 34.1-44.9 MEAN CORPUSCULAR VOLUME (BEAKER) (test wguw=342) 104.6 fL 79.4-94.8 MEAN CORPUSCULAR HEMOGLOBIN (BEAKER) (test 33.1 pg 25.6-32.2 txaw=348) MEAN CORPUSCULAR HEMOGLOBIN CONC (BEAKER) (test 31.6 GM/DL 32.2-35.5 dqmj=657) RED CELL DISTRIBUTION WIDTH (BEAKER) (test 22.2 % 11.7-14.4 jzzd=680) PLATELET COUNT (BEAKER) (test kryd=542) 60 K/CU MM 150-450 MEAN PLATELET VOLUME (BEAKER) (test jqds=942) 12.7 fL 9.4-12.3 NUCLEATED RED BLOOD CELLS (BEAKER) (test 0 /100 WBC 0-0 mrdv=807) NEUTROPHILS RELATIVE PERCENT (BEAKER) (test 85 % auor=028) LYMPHOCYTES RELATIVE PERCENT (BEAKER) (test 6 % qukq=274) MONOCYTES RELATIVE PERCENT (BEAKER) (test 9 % ppnk=750) EOSINOPHILS RELATIVE PERCENT (BEAKER) (test 0 % yrul=825) BASOPHILS RELATIVE PERCENT (BEAKER) (test 0 % qlkl=764) NEUTROPHILS ABSOLUTE COUNT (BEAKER) (test 4.50 K/ L 1.56-6.13 cinu=352) LYMPHOCYTES ABSOLUTE COUNT (BEAKER) (test 0.30 K/ L 1.18-3.74 zpnj=841) MONOCYTES ABSOLUTE COUNT (BEAKER) (test gwgp=612) 0.46 K/ L 0.24-0.36 EOSINOPHILS ABSOLUTE COUNT (BEAKER) (test 0.01 K/ L 0.04-0.36 lttu=858) BASOPHILS ABSOLUTE COUNT (BEAKER) (test qoan=529) 0.01 K/ L 0.01-0.08 IMMATURE GRANULOCYTES-RELATIVE PERCENT (BEAKER) 1 % 0-1 (test cuiz=4248) HEPATITIS B [id number] 13:58:00 Test Item Value Reference Range Comments HEPATITIS B CORE TOTAL Nonreactive Nonreactive ANTIBODY ([employer] [place] (test ggdv=248) HEPATITIS B SURFACE ANTIBODY 133.0 mIU/mL <8.0 Testing performed at [employer] ([facility]) (test eink=387) Diagnostic Laboratory.See attach result for further interpretation. HEPATITIS B SURFACE ANTIGEN Nonreactive Nonreactive (2) ([employer] [facility] [place]) (test wfih=9697) U/S, BIOPSY, RENAL (KIDNEY)2018-03-24 12:59:00Reason for exam:->Acute [...] of thenative left kidney. Signed: Eduin Thompson Verified Date/Time: 03/24 12:59:37 Reading Location: [facility] [id number] Ultrasound Reading Room BONE MARROW [id number] 11:03:00Bone Marrow Pathology Report Case: [id number] Authorizing Provider: Jordan Sultana MD Collected: 03/17/2018 1457 Ordering Location : [address] Med/Surg Received: 03/17/2018 9761 Pathologist: Doug Lee MD Specimens: A) - [...] NORMOCYTIC ANEMIA-THROMBOCYTOPENIA Signing Pathologist Direct Phone Line: [phone] signed by Doug Lee MD on 03/23/2018 [...] be submitted as an addendum when available. 19817; 18611; 99762 x 2; 07992; [id number] x 1; 25743 [id number] malignant neoplasm of breast with metastasis to [...] clusters. CD61: Highlights megakaryocytes which appear mildly [id number]: Demonstrates slightly more progenitor cells then CD34 [...] developed and its performance characteristics determined by [facility], Pathology Laboratory. It has not been cleared [...] 5.2, CD3, CD20, CD34, CD61, CD117, CD138, [place], Lambda , E-Cadherin.CBC W/PLT COUNT & AUTO [id number] 06:18:00 Test Item Value Reference Range Comments WHITE BLOOD CELL COUNT (BEAKER) (test dhda=539) 5.0 K/ L 3.5-10.5 RED BLOOD CELL COUNT (BEAKER) (test yrqq=026) 2.77 M/ L 3.93-5.22 HEMOGLOBIN (BEAKER) (test mubd=071) 9.0 GM/DL 11.2-15.7 HEMATOCRIT (BEAKER) (test gcxf=159) 29.8 % 34.1-44.9 MEAN CORPUSCULAR VOLUME (BEAKER) (test qsbb=260) 107.6 fL 79.4-94.8 MEAN CORPUSCULAR HEMOGLOBIN (BEAKER) (test 32.5 pg 25.6-32.2 qmwk=247) MEAN CORPUSCULAR HEMOGLOBIN CONC (BEAKER) (test 30.2 GM/DL 32.2-35.5 dkud=386) RED CELL DISTRIBUTION WIDTH (BEAKER) (test 23.6 % 11.7-14.4 dejv=697) PLATELET COUNT (BEAKER) (test qwjj=482) 61 K/CU MM 150-450 MEAN PLATELET VOLUME (BEAKER) (test rraf=028) 11.2 fL 9.4-12.3 NUCLEATED RED BLOOD CELLS (BEAKER) (test 0 /100 WBC 0-0 bual=736) NEUTROPHILS RELATIVE PERCENT (BEAKER) (test 82 % hdna=041) LYMPHOCYTES RELATIVE PERCENT (BEAKER) (test 7 % uado=295) MONOCYTES RELATIVE PERCENT (BEAKER) (test 10 % vccu=623) EOSINOPHILS RELATIVE PERCENT (BEAKER) (test 0 % olte=231) BASOPHILS RELATIVE PERCENT (BEAKER) (test 0 % gefd=783) NEUTROPHILS ABSOLUTE COUNT (BEAKER) (test 4.14 K/ L 1.56-6.13 ziuo=171) LYMPHOCYTES ABSOLUTE COUNT (BEAKER) (test 0.35 K/ L 1.18-3.74 zunq=454) MONOCYTES ABSOLUTE COUNT (BEAKER) (test zkvw=724) 0.49 K/ L 0.24-0.36 EOSINOPHILS ABSOLUTE COUNT (BEAKER) (test 0.02 K/ L 0.04-0.36 ewpq=776) BASOPHILS ABSOLUTE COUNT (BEAKER) (test cthv=854) 0.01 K/ L 0.01-0.08 IMMATURE GRANULOCYTES-RELATIVE PERCENT (BEAKER) 0 % 0-1 (test zrmh=2869) BASIC METABOLIC [id number] 05:46:00 Test Item Value Reference Range Comments SODIUM (BEAKER) (test 129 meq/L 136-145 abht=023) POTASSIUM (BEAKER) (test 3.9 meq/L 3.5-5.1 zmin=733) CHLORIDE (BEAKER) (test 98 meq/L 98-107 iujl=953) CO2 (BEAKER) (test 22 meq/L 22-29 inpj=486) BLOOD UREA NITROGEN 42 mg/dL 7-21 (BEAKER) (test zmnx=016) CREATININE (BEAKER) (test 3.25 mg/dL 0.57-1.25 grgh=822) GLUCOSE RANDOM (BEAKER) 101 mg/dL 70-105 (test fbri=481) CALCIUM (BEAKER) (test 7.0 mg/dL 8.4-10.2 drde=052) EGFR (BEAKER) (test 15 mL/min/1.73 sq m ESTIMATED GFR IS NOT bgdf=7891) ACCURATE CREATININE CLEARANCE IN PREDICTING GLOMERULAR FILTRATION RATE. ESTIMATED GFR IS NOT APPLICABLE FOR DIALYSIS PATIENTS. [id number] 05:40:00 Test Item Value Reference Range Comments MAGNESIUM (BEAKER) (test 2.1 mg/dL 1.6-2.6 Specimen slightly hemolyzed nvoh=684) BASIC METABOLIC [id number] 23:13:00 Test Item Value Reference Range Comments SODIUM (BEAKER) (test 133 meq/L 136-145 dyxm=977) POTASSIUM (BEAKER) (test 3.6 meq/L 3.5-5.1 puap=786) CHLORIDE (BEAKER) (test 98 meq/L 98-107 pzjv=089) CO2 (BEAKER) (test 26 meq/L 22-29 gadd=953) BLOOD UREA NITROGEN 42 mg/dL 7-21 (BEAKER) (test niog=257) CREATININE (BEAKER) (test 3.20 mg/dL 0.57-1.25 konh=340) GLUCOSE RANDOM (BEAKER) 113 mg/dL 70-105 (test okmb=429) CALCIUM (BEAKER) (test 6.9 mg/dL 8.4-10.2 dspy=379) EGFR (BEAKER) (test 15 mL/min/1.73 sq m ESTIMATED GFR IS NOT ivlz=6405) ACCURATE CREATININE CLEARANCE IN PREDICTING GLOMERULAR FILTRATION RATE. ESTIMATED GFR IS NOT APPLICABLE FOR DIALYSIS PATIENTS. BASIC METABOLIC [id number] 18:45:00 Test Item Value Reference Range Comments SODIUM (BEAKER) (test 134 meq/L 136-145 ayac=472) POTASSIUM (BEAKER) (test 3.8 meq/L 3.5-5.1 vpad=670) CHLORIDE (BEAKER) (test 100 meq/L 98-107 uffv=473) CO2 (BEAKER) (test 25 meq/L 22-29 tvab=836) BLOOD UREA NITROGEN 37 mg/dL 7-21 (BEAKER) (test xhvi=383) CREATININE (BEAKER) (test 2.98 mg/dL 0.57-1.25 vxpj=117) GLUCOSE RANDOM (BEAKER) 131 mg/dL 70-105 (test chnj=534) CALCIUM (BEAKER) (test 7.3 mg/dL 8.4-10.2 qxqd=421) EGFR (BEAKER) (test 16 mL/min/1.73 sq m ESTIMATED GFR IS NOT bgfz=7986) ACCURATE CREATININE CLEARANCE IN PREDICTING GLOMERULAR FILTRATION RATE. ESTIMATED GFR IS NOT APPLICABLE FOR DIALYSIS PATIENTS. POCT-GLUCOSE [id number] 10:29:00 Test Item Value Reference Range Comments POC-GLUCOSE METER (BEAKER) 93 mg/dL 70-110 TESTED AT [address] (test hnjm=7509) [facility] [address] BASIC METABOLIC [id number] 07:02:00 Test Item Value Reference Range Comments SODIUM (BEAKER) (test 133 meq/L 136-145 ikah=436) POTASSIUM (BEAKER) (test 3.7 meq/L 3.5-5.1 olje=437) CHLORIDE (BEAKER) (test 97 meq/L 98-107 jxch=768) CO2 (BEAKER) (test 25 meq/L 22-29 etok=471) BLOOD UREA NITROGEN 70 mg/dL 7-21 (BEAKER) (test uufz=567) CREATININE (BEAKER) (test 4.25 mg/dL 0.57-1.25 zhxh=569) GLUCOSE RANDOM (BEAKER) 93 mg/dL 70-105 (test midx=268) CALCIUM (BEAKER) (test 7.2 mg/dL 8.4-10.2 shcf=993) EGFR (BEAKER) (test 11 mL/min/1.73 sq m ESTIMATED GFR IS NOT ukqk=9759) ACCURATE CREATININE CLEARANCE IN PREDICTING GLOMERULAR FILTRATION RATE. ESTIMATED GFR IS NOT APPLICABLE FOR DIALYSIS PATIENTS. [id number] 07:01:00 Test Item Value Reference Range Comments MAGNESIUM (BEAKER) (test nxxl=092) 2.2 mg/dL 1.6-2.6 CBC W/PLT COUNT & AUTO [id number] 06:36:00 Test Item Value Reference Range Comments WHITE BLOOD CELL COUNT (BEAKER) (test cnfz=907) 6.2 K/ L 3.5-10.5 RED BLOOD CELL COUNT (BEAKER) (test ubio=262) 2.89 M/ L 3.93-5.22 HEMOGLOBIN (BEAKER) (test yrud=780) 9.5 GM/DL 11.2-15.7 HEMATOCRIT (BEAKER) (test suih=091) 31.1 % 34.1-44.9 MEAN CORPUSCULAR VOLUME (BEAKER) (test rniu=065) 107.6 fL 79.4-94.8 MEAN CORPUSCULAR HEMOGLOBIN (BEAKER) (test 32.9 pg 25.6-32.2 autz=331) MEAN CORPUSCULAR HEMOGLOBIN CONC (BEAKER) (test 30.5 GM/DL 32.2-35.5 vjfh=339) RED CELL DISTRIBUTION WIDTH (BEAKER) (test 24.9 % 11.7-14.4 bqxz=578) PLATELET COUNT (BEAKER) (test uomj=453) 73 K/CU MM 150-450 MEAN PLATELET VOLUME (BEAKER) (test ctxf=872) 13.4 fL 9.4-12.3 NUCLEATED RED BLOOD CELLS (BEAKER) (test 0 /100 WBC 0-0 omuu=627) NEUTROPHILS RELATIVE PERCENT (BEAKER) (test 87 % jjek=975) LYMPHOCYTES RELATIVE PERCENT (BEAKER) (test 5 % glsl=793) MONOCYTES RELATIVE PERCENT (BEAKER) (test 7 % ndbc=003) EOSINOPHILS RELATIVE PERCENT (BEAKER) (test 0 % faes=614) BASOPHILS RELATIVE PERCENT (BEAKER) (test 0 % fysc=781) NEUTROPHILS ABSOLUTE COUNT (BEAKER) (test 5.36 K/ L 1.56-6.13 errz=903) LYMPHOCYTES ABSOLUTE COUNT (BEAKER) (test 0.31 K/ L 1.18-3.74 hvvb=758) MONOCYTES ABSOLUTE COUNT (BEAKER) (test oqtx=428) 0.44 K/ L 0.24-0.36 EOSINOPHILS ABSOLUTE COUNT (BEAKER) (test 0.01 K/ L 0.04-0.36 dqqw=284) BASOPHILS ABSOLUTE COUNT (BEAKER) (test oawb=272) 0.00 K/ L 0.01-0.08 IMMATURE GRANULOCYTES-RELATIVE PERCENT (BEAKER) 1 % 0-1 (test tmgg=5354) [id number] 06:35:00 Test Item Value Reference Range Comments PROTIME (BEAKER) (test hbdr=507) 15.3 seconds 11.7-14.7 INR (BEAKER) (test yuhw=941) 1.2 <=5.9 PARTIAL THROMBOPLASTIN TIME (BEAKER) (test 29.7 seconds 22.5-36.0 yfqc=982) RECOMMENDED COUMADIN/WARFARIN INR THERAPY RANGESSTANDARD DOSE: 2.0 - 3.0 Includes: PROPHYLAXIS forvenous thrombosis, systemic embolization; TREATMENT for venous thrombosis and/or pulmonary embolus.HIGH RISK: Target INR is 2.5-3.5 for patients with mechanical heart valves.[id number] 23:55:00 Test Item Value Reference Range Comments PHOSPHORUS (BEAKER) (test jdus=271) 6.1 mg/dL 2.3-4.7 BASIC METABOLIC [id number] 23:55:00 Test Item Value Reference Range Comments SODIUM (BEAKER) (test 135 meq/L 136-145 nfin=713) POTASSIUM (BEAKER) (test 3.6 meq/L 3.5-5.1 trip=332) CHLORIDE (BEAKER) (test 97 meq/L 98-107 uded=715) CO2 (BEAKER) (test 26 meq/L 22-29 nfyx=397) BLOOD UREA NITROGEN 63 mg/dL 7-21 (BEAKER) (test utar=038) CREATININE (BEAKER) (test 3.99 mg/dL 0.57-1.25 vnwz=996) GLUCOSE RANDOM (BEAKER) 121 mg/dL 70-105 (test hqmd=884) CALCIUM (BEAKER) (test 7.2 mg/dL 8.4-10.2 slhd=996) EGFR (BEAKER) (test 12 mL/min/1.73 sq m ESTIMATED GFR IS NOT qdrh=1433) ACCURATE CREATININE CLEARANCE IN PREDICTING GLOMERULAR FILTRATION RATE. ESTIMATED GFR IS NOT APPLICABLE FOR DIALYSIS PATIENTS. BASIC METABOLIC [id number] 17:30:00 Test Item Value Reference Range Comments SODIUM (BEAKER) (test 137 meq/L 136-145 zhzw=066) POTASSIUM (BEAKER) (test 3.7 meq/L 3.5-5.1 jeym=973) CHLORIDE (BEAKER) (test 98 meq/L 98-107 blpd=297) CO2 (BEAKER) (test 27 meq/L 22-29 wcyx=253) BLOOD UREA NITROGEN 53 mg/dL 7-21 (BEAKER) (test xcxq=117) CREATININE (BEAKER) (test 3.30 mg/dL 0.57-1.25 ougg=372) GLUCOSE RANDOM (BEAKER) 105 mg/dL 70-105 (test glgh=464) CALCIUM (BEAKER) (test 8.1 mg/dL 8.4-10.2 tapq=725) EGFR (BEAKER) (test 15 mL/min/1.73 sq m ESTIMATED GFR IS NOT pzwp=9152) ACCURATE CREATININE CLEARANCE IN PREDICTING GLOMERULAR FILTRATION RATE. ESTIMATED GFR IS NOT APPLICABLE FOR DIALYSIS PATIENTS. HEPATIC FUNCTION [id number] 17:26:00 Test Item Value Reference Range Comments TOTAL PROTEIN (BEAKER) (test cyhg=231) 6.7 gm/dL 6.0-8.3 ALBUMIN (BEAKER) (test pgmx=1359) 3.1 g/dL 3.5-5.0 BILIRUBIN TOTAL (BEAKER) (test wurd=973) 1.6 mg/dL 0.2-1.2 BILIRUBIN DIRECT (BEAKER) (test iaub=722) 0.7 mg/dL 0.1-0.5 ALKALINE PHOSPHATASE (BEAKER) (test gqwp=786) 63 U/L 40-150 AST (SGOT) (BEAKER) (test piqo=554) 48 U/L 5-34 ALT (SGPT) (BEAKER) (test slhn=903) 24 U/L 6-55 BASIC METABOLIC [id number] 15:15:00 Test Item Value Reference Range Comments SODIUM (BEAKER) (test 134 meq/L 136-145 dlnl=386) POTASSIUM (BEAKER) (test 4.1 meq/L 3.5-5.1 rgcw=798) CHLORIDE (BEAKER) (test 94 meq/L 98-107 hnjc=650) CO2 (BEAKER) (test 23 meq/L 22-29 kovh=648) BLOOD UREA NITROGEN 112 mg/dL 7-21 (BEAKER) (test sxmf=983) CREATININE (BEAKER) (test 5.93 mg/dL 0.57-1.25 oxyv=229) GLUCOSE RANDOM (BEAKER) 104 mg/dL 70-105 (test htug=758) CALCIUM (BEAKER) (test 7.2 mg/dL 8.4-10.2 ovqq=241) EGFR (BEAKER) (test 7 mL/min/1.73 sq m ESTIMATED GFR IS NOT ymia=5619) ACCURATE CREATININE CLEARANCE IN PREDICTING GLOMERULAR FILTRATION RATE. ESTIMATED GFR IS NOT APPLICABLE FOR DIALYSIS PATIENTS. URINE IMMUNOFIXATION, [id number] 15:09:00 Test Item Value Reference Range Comments PROTEIN, URINE (BEAKER) (test 412 mg/dL 0-14 jgev=8087) ALBUMIN URINE ELP (BEAKER) 56.3 % (test nktj=3025) GAMMA GLOBULIN URINE (BEAKER) 43.7 % (test uoce=3204) URINE JUDSON ID-[id number] (BEAKER) No monoclonal proteins or (test pbog=4850) monoclonal free light chains detected. [id number] (BEAKER) Barbie Mccollum MD (test krtb=0251) (electronic signature) URINE PROTEIN ELECTROPHORESIS, [id number] 13:02:00 Test Item Value Reference Range Comments PROTEIN, URINE (BEAKER) (test 412 mg/dL 0-14 nvos=7147) ALBUMIN URINE ELP (BEAKER) 56.3 % (test cfwx=5705) GAMMA GLOBULIN URINE (BEAKER) 43.7 % (test xnnz=2225) UPEP, ID-438 (BEAKER) (test No monoclonal bands detected. vlpn=8048) [id number] (BEAKER) Barbie Mccollum MD (test pfzq=7839) (electronic signature) [id number] 08:19:00 Test Item Value Reference Range Comments HAPTOGLOBIN (BEAKER) (test wuaa=794) < mg/dL 14-258 BASIC METABOLIC [id number] 07:44:00 Test Item Value Reference Range Comments SODIUM (BEAKER) (test 133 meq/L 136-145 wwwt=800) POTASSIUM (BEAKER) (test 4.4 meq/L 3.5-5.1 qxlw=208) CHLORIDE (BEAKER) (test 95 meq/L 98-107 ismw=486) CO2 (BEAKER) (test 23 meq/L 22-29 bnjd=284) BLOOD UREA NITROGEN 108 mg/dL 7-21 (BEAKER) (test zvnj=465) CREATININE (BEAKER) (test 5.79 mg/dL 0.57-1.25 kowr=516) GLUCOSE RANDOM (BEAKER) 107 mg/dL 70-105 (test ihsm=253) CALCIUM (BEAKER) (test 7.4 mg/dL 8.4-10.2 ueiw=838) EGFR (BEAKER) (test 8 mL/min/1.73 sq m ESTIMATED GFR IS NOT iylg=2575) ACCURATE CREATININE CLEARANCE IN PREDICTING GLOMERULAR FILTRATION RATE. ESTIMATED GFR IS NOT APPLICABLE FOR DIALYSIS PATIENTS. [id number] 07:29:00 Test Item Value Reference Range Comments MAGNESIUM (BEAKER) (test wzst=386) 2.6 mg/dL 1.6-2.6 LACTATE DEHYDROGENASE (LDH)2018-03-22 07:29:00 Test Item Value Reference Range Comments LACTATE DEHYDROGENASE (BEAKER) (test vchq=803) 812 U/L 125-220 CBC W/PLT COUNT & AUTO [id number] 07:15:00 Test Item Value Reference Range Comments WHITE BLOOD CELL COUNT (BEAKER) (test pdvg=764) 5.5 K/ L 3.5-10.5 RED BLOOD CELL COUNT (BEAKER) (test vogv=168) 2.90 M/ L 3.93-5.22 HEMOGLOBIN (BEAKER) (test hnyk=588) 9.5 GM/DL 11.2-15.7 HEMATOCRIT (BEAKER) (test stdr=547) 30.7 % 34.1-44.9 MEAN CORPUSCULAR VOLUME (BEAKER) (test ffqu=605) 105.9 fL 79.4-94.8 MEAN CORPUSCULAR HEMOGLOBIN (BEAKER) (test 32.8 pg 25.6-32.2 scuu=404) MEAN CORPUSCULAR HEMOGLOBIN CONC (BEAKER) (test 30.9 GM/DL 32.2-35.5 rqhr=703) RED CELL DISTRIBUTION WIDTH (BEAKER) (test 24.7 % 11.7-14.4 gthk=302) PLATELET COUNT (BEAKER) (test neyq=076) 56 K/CU MM 150-450 MEAN PLATELET VOLUME (BEAKER) (test jges=168) 11.6 fL 9.4-12.3 NUCLEATED RED BLOOD CELLS (BEAKER) (test 0 /100 WBC 0-0 tolw=979) NEUTROPHILS RELATIVE PERCENT (BEAKER) (test 83 % hqig=857) LYMPHOCYTES RELATIVE PERCENT (BEAKER) (test 9 % natw=579) MONOCYTES RELATIVE PERCENT (BEAKER) (test 7 % bxxg=385) EOSINOPHILS RELATIVE PERCENT (BEAKER) (test 0 % lxjo=884) BASOPHILS RELATIVE PERCENT (BEAKER) (test 0 % dstg=300) NEUTROPHILS ABSOLUTE COUNT (BEAKER) (test 4.58 K/ L 1.56-6.13 juxb=298) LYMPHOCYTES ABSOLUTE COUNT (BEAKER) (test 0.49 K/ L 1.18-3.74 zicu=280) MONOCYTES ABSOLUTE COUNT (BEAKER) (test fwqv=454) 0.39 K/ L 0.24-0.36 EOSINOPHILS ABSOLUTE COUNT (BEAKER) (test 0.00 K/ L 0.04-0.36 bsbu=165) BASOPHILS ABSOLUTE COUNT (BEAKER) (test ncgs=427) 0.01 K/ L 0.01-0.08 IMMATURE GRANULOCYTES-RELATIVE PERCENT (BEAKER) 1 % 0-1 (test ynda=5265) RETICULOCYTE [id number] 07:08:00 Test Item Value Reference Range Comments RETICULOCYTE COUNT PCT (BEAKER) (test yztm=004) 13.4 % 0.5-1.7 [id number] 07:07:00 Test Item Value Reference Range Comments PROTIME (BEAKER) (test mmxn=500) 16.2 seconds 11.7-14.7 INR (BEAKER) (test wzcv=543) 1.3 <=5.9 PARTIAL THROMBOPLASTIN TIME (BEAKER) (test 31.2 seconds 22.5-36.0 qnkj=882) RECOMMENDED COUMADIN/WARFARIN INR THERAPY RANGESSTANDARD DOSE: 2.0 - 3.0 Includes: PROPHYLAXIS forvenous thrombosis, systemic embolization; TREATMENT for venous thrombosis and/or pulmonary embolus.HIGH RISK: Target INR is 2.5-3.5 for patients with mechanical heart valves.PROTHROMBIN [id number] 07:06: 00 Test Item Value Reference Range Comments PROTIME (BEAKER) (test jfkt=170) 16.2 seconds 11.7-14.7 INR (BEAKER) (test ilsl=517) 1.3 <=5.9 RECOMMENDED COUMADIN/WARFARIN INR THERAPY RANGESSTANDARD DOSE: 2.0 - 3.0 Includes: PROPHYLAXIS forvenous thrombosis, systemic embolization; TREATMENT for venous thrombosis and/or pulmonary embolus.HIGH RISK: Target INR is 2.5-3.5 for patients with mechanical heart valves.BASIC METABOLIC [id number] 22:18: 00 Test Item Value Reference Range Comments SODIUM (BEAKER) (test 132 meq/L 136-145 wzvx=170) POTASSIUM (BEAKER) (test 4.7 meq/L 3.5-5.1 jneu=712) CHLORIDE (BEAKER) (test 95 meq/L 98-107 rvfj=041) CO2 (BEAKER) (test 22 meq/L 22-29 rojd=397) BLOOD UREA NITROGEN 99 mg/dL 7-21 (BEAKER) (test hrtz=671) CREATININE (BEAKER) (test 5.57 mg/dL 0.57-1.25 yssa=065) GLUCOSE RANDOM (BEAKER) 139 mg/dL 70-105 (test yiev=383) CALCIUM (BEAKER) (test 7.3 mg/dL 8.4-10.2 viqp=101) EGFR (BEAKER) (test 8 mL/min/1.73 sq m ESTIMATED GFR IS NOT hgrm=0490) ACCURATE CREATININE CLEARANCE IN PREDICTING GLOMERULAR FILTRATION RATE. ESTIMATED GFR IS NOT APPLICABLE FOR DIALYSIS PATIENTS. RAD, CHEST, 1 VIEW, NON [id number] 18:54:00Reason for exam:->cough, chest congestionShould this be [...] MDReport Verified Date/Time: 03/21/2018 18:54:34 Reading Location: [facility] B1 C013Y CT Body Reading Room BASIC METABOLIC [id number] 16:55:00 Test Item Value Reference Range Comments SODIUM (BEAKER) (test 135 meq/L 136-145 cuig=011) POTASSIUM (BEAKER) (test 5.1 meq/L 3.5-5.1 jyef=731) CHLORIDE (BEAKER) (test 97 meq/L 98-107 txyh=808) CO2 (BEAKER) (test 20 meq/L 22-29 jbmg=900) BLOOD UREA NITROGEN 100 mg/dL 7-21 (BEAKER) (test hpvq=465) CREATININE (BEAKER) (test 5.45 mg/dL 0.57-1.25 vwfs=474) GLUCOSE RANDOM (BEAKER) 133 mg/dL 70-105 (test zssj=570) CALCIUM (BEAKER) (test 7.7 mg/dL 8.4-10.2 xyko=238) EGFR (BEAKER) (test 8 mL/min/1.73 sq m ESTIMATED GFR IS NOT olsc=5222) ACCURATE CREATININE CLEARANCE IN PREDICTING GLOMERULAR FILTRATION RATE. ESTIMATED GFR IS NOT APPLICABLE FOR DIALYSIS PATIENTS. BLOOD [id number] 13:00:00 Test Item Value Reference Range Comments CULTURE (BEAKER) (test ctsp=0162) No growth in 5 days BASIC METABOLIC [id number] 12:42:00 Test Item Value Reference Range Comments SODIUM (BEAKER) (test 134 meq/L 136-145 oeia=288) POTASSIUM (BEAKER) (test 4.7 meq/L 3.5-5.1 xdig=468) CHLORIDE (BEAKER) (test 95 meq/L 98-107 dtdu=639) CO2 (BEAKER) (test 21 meq/L 22-29 wlcq=401) BLOOD UREA NITROGEN 97 mg/dL 7-21 (BEAKER) (test zmjx=065) CREATININE (BEAKER) (test 5.18 mg/dL 0.57-1.25 hjzu=491) GLUCOSE RANDOM (BEAKER) 121 mg/dL 70-105 (test fwvh=217) CALCIUM (BEAKER) (test 7.9 mg/dL 8.4-10.2 annz=373) EGFR (BEAKER) (test 9 mL/min/1.73 sq m ESTIMATED GFR IS NOT wtop=9860) ACCURATE CREATININE CLEARANCE IN PREDICTING GLOMERULAR FILTRATION RATE. ESTIMATED GFR IS NOT APPLICABLE FOR DIALYSIS PATIENTS. BASIC METABOLIC [id number] 06:21:00 Test Item Value Reference Range Comments SODIUM (BEAKER) (test 133 meq/L 136-145 vuvm=300) POTASSIUM (BEAKER) (test 4.6 meq/L 3.5-5.1 cdnw=258) CHLORIDE (BEAKER) (test 97 meq/L 98-107 uelv=589) CO2 (BEAKER) (test 18 meq/L 22-29 zeot=173) BLOOD UREA NITROGEN 89 mg/dL 7-21 (BEAKER) (test diwk=797) CREATININE (BEAKER) (test 4.86 mg/dL 0.57-1.25 afoa=118) GLUCOSE RANDOM (BEAKER) 117 mg/dL 70-105 (test tsgv=811) CALCIUM (BEAKER) (test 7.9 mg/dL 8.4-10.2 ootm=985) EGFR (BEAKER) (test 9 mL/min/1.73 sq m ESTIMATED GFR IS NOT hkht=5250) ACCURATE CREATININE CLEARANCE IN PREDICTING GLOMERULAR FILTRATION RATE. ESTIMATED GFR IS NOT APPLICABLE FOR DIALYSIS PATIENTS. [id number] 05:54:00 Test Item Value Reference Range Comments MAGNESIUM (BEAKER) (test kqnq=039) 2.4 mg/dL 1.6-2.6 CBC (HEMOGRAM ONLY)2018-03-21 05:23:00 Test Item Value Reference Range Comments WHITE BLOOD CELL COUNT (BEAKER) (test leim=452) 7.6 K/ L 3.5-10.5 RED BLOOD CELL COUNT (BEAKER) (test kigm=325) 3.13 M/ L 3.93-5.22 HEMOGLOBIN (BEAKER) (test ggjo=688) 10.1 GM/DL 11.2-15.7 HEMATOCRIT (BEAKER) (test bhgt=184) 32.1 % 34.1-44.9 MEAN CORPUSCULAR VOLUME (BEAKER) (test ndmk=379) 102.6 fL 79.4-94.8 MEAN CORPUSCULAR HEMOGLOBIN (BEAKER) (test 32.3 pg 25.6-32.2 owvr=348) MEAN CORPUSCULAR HEMOGLOBIN CONC (BEAKER) (test 31.5 GM/DL 32.2-35.5 zpyh=015) RED CELL DISTRIBUTION WIDTH (BEAKER) (test 24.0 % 11.7-14.4 yzlx=553) PLATELET COUNT (BEAKER) (test ldds=607) 68 K/CU MM 150-450 MEAN PLATELET VOLUME (BEAKER) (test snii=378) 14.4 fL 9.4-12.3 NUCLEATED RED BLOOD CELLS (BEAKER) (test 1 /100 WBC 0-0 ilzj=014) BASIC METABOLIC [id number] 00:47:00 Test Item Value Reference Range Comments SODIUM (BEAKER) (test 134 meq/L 136-145 sfrl=580) POTASSIUM (BEAKER) (test 4.7 meq/L 3.5-5.1 zxxq=682) CHLORIDE (BEAKER) (test 97 meq/L 98-107 iumc=451) CO2 (BEAKER) (test 22 meq/L 22-29 cyxz=360) BLOOD UREA NITROGEN 86 mg/dL 7-21 (BEAKER) (test canq=754) CREATININE (BEAKER) (test 4.81 mg/dL 0.57-1.25 zstb=460) GLUCOSE RANDOM (BEAKER) 115 mg/dL 70-105 (test ncdh=611) CALCIUM (BEAKER) (test 7.9 mg/dL 8.4-10.2 qgiw=128) EGFR (BEAKER) (test 9 mL/min/1.73 sq m ESTIMATED GFR IS NOT wfya=7416) ACCURATE CREATININE CLEARANCE IN PREDICTING GLOMERULAR FILTRATION RATE. ESTIMATED GFR IS NOT APPLICABLE FOR DIALYSIS PATIENTS. HEPATITIS C [id number] 13:26:00 Test Item Value Reference Range Comments HEPATITIS C ANTIBODY (BEAKER) (test knwv=994) Nonreactive Nonreactive BASIC METABOLIC [id number] 13:08:00 Test Item Value Reference Range Comments SODIUM (BEAKER) (test 133 meq/L 136-145 wzbs=511) POTASSIUM (BEAKER) (test 5.0 meq/L 3.5-5.1 uees=098) CHLORIDE (BEAKER) (test 92 meq/L 98-107 dvlj=140) CO2 (BEAKER) (test 21 meq/L 22-29 ybym=549) BLOOD UREA NITROGEN 123 mg/dL 7-21 (BEAKER) (test dxwy=270) CREATININE (BEAKER) (test 5.93 mg/dL 0.57-1.25 xvzt=196) GLUCOSE RANDOM (BEAKER) 108 mg/dL 70-105 (test zsdo=879) CALCIUM (BEAKER) (test 8.1 mg/dL 8.4-10.2 uaht=256) EGFR (BEAKER) (test 7 mL/min/1.73 sq m ESTIMATED GFR IS NOT lrrc=1055) ACCURATE CREATININE CLEARANCE IN PREDICTING GLOMERULAR FILTRATION RATE. ESTIMATED GFR IS NOT APPLICABLE FOR DIALYSIS PATIENTS. T4, [id number] 09:25:00 Test Item Value Reference Range Comments FREE T4 (BEAKER) (test hjgm=359) 0.67 ng/dL 0.70-1.48 TSH/FREE T4 IF [id number] 09:04:00 Test Item Value Reference Range Comments THYROID STIMULATING HORMONE (BEAKER) (test 7.12 uIU/mL 0.35-4.94 beqp=890) BASIC METABOLIC [id number] 07:17:00 Test Item Value Reference Range Comments SODIUM (BEAKER) (test 132 meq/L 136-145 ucns=402) POTASSIUM (BEAKER) (test 4.6 meq/L 3.5-5.1 lora=663) CHLORIDE (BEAKER) (test 92 meq/L 98-107 onnm=215) CO2 (BEAKER) (test 22 meq/L 22-29 vftw=688) BLOOD UREA NITROGEN 119 mg/dL 7-21 (BEAKER) (test gxso=635) CREATININE (BEAKER) (test 5.68 mg/dL 0.57-1.25 ggiu=535) GLUCOSE RANDOM (BEAKER) 108 mg/dL 70-105 (test fbls=897) CALCIUM (BEAKER) (test 8.0 mg/dL 8.4-10.2 hgcj=429) EGFR (BEAKER) (test 8 mL/min/1.73 sq m ESTIMATED GFR IS NOT ecst=4843) ACCURATE CREATININE CLEARANCE IN PREDICTING GLOMERULAR FILTRATION RATE. ESTIMATED GFR IS NOT APPLICABLE FOR DIALYSIS PATIENTS. CBC (HEMOGRAM ONLY)2018-03-20 06:25:00 Test Item Value Reference Range Comments WHITE BLOOD CELL COUNT (BEAKER) (test wfjc=527) 7.0 K/ L 3.5-10.5 RED BLOOD CELL COUNT (BEAKER) (test vkms=316) 2.95 M/ L 3.93-5.22 HEMOGLOBIN (BEAKER) (test lmvb=088) 9.5 GM/DL 11.2-15.7 HEMATOCRIT (BEAKER) (test wkck=618) 29.3 % 34.1-44.9 MEAN CORPUSCULAR VOLUME (BEAKER) (test bkkc=270) 99.3 fL 79.4-94.8 MEAN CORPUSCULAR HEMOGLOBIN (BEAKER) (test 32.2 pg 25.6-32.2 jjuh=398) MEAN CORPUSCULAR HEMOGLOBIN CONC (BEAKER) (test 32.4 GM/DL 32.2-35.5 qjsa=408) RED CELL DISTRIBUTION WIDTH (BEAKER) (test 22.7 % 11.7-14.4 vbnp=085) PLATELET COUNT (BEAKER) (test hfig=528) 53 K/CU MM 150-450 NUCLEATED RED BLOOD CELLS (BEAKER) (test 1 /100 WBC 0-0 tewx=830) BASIC METABOLIC [id number] 03:08:00 Test Item Value Reference Range Comments SODIUM (BEAKER) (test 130 meq/L 136-145 sphx=608) POTASSIUM (BEAKER) (test 4.9 meq/L 3.5-5.1 geha=385) CHLORIDE (BEAKER) (test 92 meq/L 98-107 ucdh=101) CO2 (BEAKER) (test 21 meq/L 22-29 jhdo=324) BLOOD UREA NITROGEN 117 mg/dL 7-21 (BEAKER) (test qivw=172) CREATININE (BEAKER) (test 5.66 mg/dL 0.57-1.25 vjyt=043) GLUCOSE RANDOM (BEAKER) 124 mg/dL 70-105 (test xame=923) CALCIUM (BEAKER) (test 7.9 mg/dL 8.4-10.2 rugz=917) EGFR (BEAKER) (test 8 mL/min/1.73 sq m ESTIMATED GFR IS NOT kzcr=2594) ACCURATE CREATININE CLEARANCE IN PREDICTING GLOMERULAR FILTRATION RATE. ESTIMATED GFR IS NOT APPLICABLE FOR DIALYSIS PATIENTS. BASIC METABOLIC [id number] 20:16:00 Test Item Value Reference Range Comments SODIUM (BEAKER) (test 131 meq/L 136-145 pjgp=977) POTASSIUM (BEAKER) (test 5.0 meq/L 3.5-5.1 ghnu=804) CHLORIDE (BEAKER) (test 92 meq/L 98-107 ydia=559) CO2 (BEAKER) (test 22 meq/L 22-29 uwaw=340) BLOOD UREA NITROGEN 113 mg/dL 7-21 (BEAKER) (test fziu=491) CREATININE (BEAKER) (test 5.58 mg/dL 0.57-1.25 madj=121) GLUCOSE RANDOM (BEAKER) 112 mg/dL 70-105 (test mpth=418) CALCIUM (BEAKER) (test 8.1 mg/dL 8.4-10.2 cnuu=253) EGFR (BEAKER) (test 8 mL/min/1.73 sq m ESTIMATED GFR IS NOT zvqb=4529) ACCURATE CREATININE CLEARANCE IN PREDICTING GLOMERULAR FILTRATION RATE. ESTIMATED GFR IS NOT APPLICABLE FOR DIALYSIS PATIENTS. PROTEIN ELECTROPHORESIS, [id number] 17:31:00 Test Item Value Reference Range Comments ALBUMIN FRACTION (BEAKER) 2.7 g/dL 3.5-5.5 (test nxhy=815) ALPHA 1 FRACTION (BEAKER) 0.4 g/dL 0.2-0.4 (test ssva=313) ALPHA 2 FRACTION (BEAKER) 0.5 g/dL 0.5-0.9 (test glos=561) BETA FRACTION (BEAKER) (test 0.8 g/dL 0.6-1.1 rvbj=036) GAMMA GLOBULIN FRACTION 2.2 g/dL 0.7-1.7 (BEAKER) (test imhn=083) INTERPRETATION-119 (BEAKER) Polyclonal elevation of gamma (test nngf=7680) fraction, suggestive of chronic inflammatory response. Serum JUDSON pending to evaluate for presence of small underlying monoclonal protein in this region. [id number] Barbie Mccollum MD (BEAKER) (test tdfz=5499) (electronic signature) PROTEIN TOTAL SERUM, SPEP 6.7 gm/dL 6.0-8.3 (BEAKER) (test obam=4941) IMMUNOFIXATION ELECTROPHORESIS (JUDSON)2018-03-19 17:31:00 Test Item Value Reference Range Comments IMMUNOGLOBULIN G (IGG) (BEAKER) 2008 mg/dL 540-1822 (test axev=555) IMMUNOGLOBULIN A (IGA) (BEAKER) 37 mg/dL 63-484 (test vzdx=108) IMMUNOGLOBULIN M (IGM) (BEAKER) 673 mg/dL 22-293 (test bkro=381) SERUM JUDSON ID (BEAKER) (test No monoclonal proteins ubea=1306) detected. Polyclonal elevation of gamma globulins. [id number] (BEAKER) Barbie Mcocllum MD (test qkub=6554) (electronic signature) ANTI-NUCLEAR ANTIBODY (SARAH)2018-03-19 10:18:00 Test Item Value Reference Range Comments ANTI-NUCLEAR ANTIBODY (SARAH) (BEAKER) (test Positive Negative catt=638) Test performed by IFA method.SARAH TITER AND [id number] 10:18:00 Test Item Value Reference Range Comments SARAH TITER (BEAKER) (test ihgp=2711) >=:2560 SARAH PATTERN (BEAKER) (test psiu=0280) Speckled FLOW [id number] 09:17:00Flow Cytometry Report Case: [id number] Authorizing Provider: Jordan Sultana MD Collected: 03/17/2018 1500 Ordering Location: [address] Med/Surg Received: 03/17/2018 1714 Pathologist: Doug Lee MD Specimen: Other BONE [...] findings in the bone marrow biopsy report([id number]) .[id number] wf with h/o right breast ca s/p surgery and chemo xrt in 2013 found to have recurrence with extensive metastases, started on carboplatin and gemcitabine in October 2017, transferred from [facility] for management of MAHA with REJI.BONE MARROW ASPIRATECD8, surface-[place], CD56, surface-Lambda, CD5 , CD19, CD10, CD3, CD20, CD4, CD45, CD14, CD13, CD33, CD117, CD34, cKappa, cLambda, CD38, NM079Lsjromce Viability: 92.4% Number of Events Acquired: [id number] The following populations are identified: Blasts: the dim CD45+ CD34+ blasts comprise 0.5% of total cells. The majority of these cells express CD13 and CD33 (myeloblasts).Lymphocytes: Bright CD45+ lymphocytes comprise 4.0% of total cells. T cells show a CD4:CD8 ratio of 0.8 and normal expression of the rbown T cell antigens CD3 and CD5. B [...] developed and their performance characteristics determined by [facility] They have not been cleared or approved by the U.S. Food and Drug Administration. The FDA has determined that such clearance or approval is not necessary. It should not be regarded as investigational or for research. This laboratory is certified under the Clinical Laboratory Improvement Amendments zq1821 ("CLIA") as qualified to perform high-complexity clinical testing.FLOW CYTOMETRY [id number] 09:16:00 Test Item Value Reference Range Comments FLOW CYTOMETRY RESULT POINTER (ADDY) See Separate Report (test zxxt=9190) FLOW CYTOMETRY AP CASE # ([id number]) (test [id number] aith=2913) BASIC METABOLIC [id number] 06:55:00 Test Item Value Reference Range Comments SODIUM (BEAKER) (test 131 meq/L 136-145 jymn=623) POTASSIUM (BEAKER) (test 4.8 meq/L 3.5-5.1 edlu=256) CHLORIDE (BEAKER) (test 93 meq/L 98-107 bxnt=244) CO2 (BEAKER) (test 20 meq/L 22-29 gxye=278) BLOOD UREA NITROGEN 99 mg/dL 7-21 (BEAKER) (test hkys=285) CREATININE (BEAKER) (test 4.97 mg/dL 0.57-1.25 zhhr=920) GLUCOSE RANDOM (BEAKER) 100 mg/dL 70-105 (test eans=010) CALCIUM (BEAKER) (test 8.3 mg/dL 8.4-10.2 mesp=654) EGFR (BEAKER) (test 9 mL/min/1.73 sq m ESTIMATED GFR IS NOT bode=8507) ACCURATE CREATININE CLEARANCE IN PREDICTING GLOMERULAR FILTRATION RATE. ESTIMATED GFR IS NOT APPLICABLE FOR DIALYSIS PATIENTS. [id number] 06:54:00 Test Item Value Reference Range Comments PHOSPHORUS (BEAKER) (test ghpa=496) 7.0 mg/dL 2.3-4.7 PTH, [id number] 06:42:00 Test Item Value Reference Range Comments PARATHYROID HORMONE INTACT (BEAKER) (test 690.0 pg/mL 8.5-72.5 seig=596) VANCOMYCIN LEVEL, [id number] 06:33:00 Test Item Value Reference Range Comments VANCOMYCIN RANDOM (BEAKER) (test iduv=017) 14.4 ug/mL Reference Range: No NormalsCBC (HEMOGRAM ONLY)2018-03-19 06:14:00 Test Item Value Reference Range Comments WHITE BLOOD CELL COUNT (BEAKER) (test dhuk=881) 5.6 K/ L 3.5-10.5 RED BLOOD CELL COUNT (BEAKER) (test bimv=000) 2.35 M/ L 3.93-5.22 HEMOGLOBIN (BEAKER) (test zpky=735) 7.6 GM/DL 11.2-15.7 HEMATOCRIT (BEAKER) (test cchb=977) 23.7 % 34.1-44.9 MEAN CORPUSCULAR VOLUME (BEAKER) (test iofc=311) 100.9 fL 79.4-94.8 MEAN CORPUSCULAR HEMOGLOBIN (BEAKER) (test 32.3 pg 25.6-32.2 fqbg=094) MEAN CORPUSCULAR HEMOGLOBIN CONC (BEAKER) (test 32.1 GM/DL 32.2-35.5 wkpa=886) RED CELL DISTRIBUTION WIDTH (BEAKER) (test 23.4 % 11.7-14.4 uhlh=092) PLATELET COUNT (BEAKER) (test spnu=097) 61 K/CU MM 150-450 NUCLEATED RED BLOOD CELLS (BEAKER) (test 1 /100 WBC 0-0 atwl=296) CBC W/PLT COUNT & AUTO [id number] 16:19:00 Test Item Value Reference Range Comments WHITE BLOOD CELL COUNT 5.0 K/ L 3.5-10.5 (BEAKER) (test myfl=117) RED BLOOD CELL COUNT (BEAKER) 2.35 M/ L 3.93-5.22 (test ndvj=139) HEMOGLOBIN (BEAKER) (test 7.6 GM/DL 11.2-15.7 hrpl=869) HEMATOCRIT (BEAKER) (test 23.2 % 34.1-44.9 uuke=162) MEAN CORPUSCULAR VOLUME 98.7 fL 79.4-94.8 (BEAKER) (test wofy=671) MEAN CORPUSCULAR HEMOGLOBIN 32.3 pg 25.6-32.2 (BEAKER) (test mmtf=231) MEAN CORPUSCULAR HEMOGLOBIN 32.8 GM/DL 32.2-35.5 CONC (BEAKER) (test ztzb=760) RED CELL DISTRIBUTION WIDTH 22.5 % 11.7-14.4 (BEAKER) (test akcr=715) PLATELET COUNT (BEAKER) (test 65 K/CU MM 150-450 kvvi=692) MEAN PLATELET VOLUME (BEAKER) fL 9.4-12.3 Unable to report due to (test zgjp=152) abnormal Platelet population distribution. NUCLEATED RED BLOOD CELLS 1 /100 WBC 0-0 (BEAKER) (test eyaa=820) NEUTROPHILS RELATIVE PERCENT 77 % (BEAKER) (test jezz=364) LYMPHOCYTES RELATIVE PERCENT 13 % (BEAKER) (test exiz=939) MONOCYTES RELATIVE PERCENT 9 % (BEAKER) (test fcfp=346) EOSINOPHILS RELATIVE PERCENT 0 % (BEAKER) (test bbdm=293) BASOPHILS RELATIVE PERCENT 0 % (BEAKER) (test gjdl=783) NEUTROPHILS ABSOLUTE COUNT 3.82 K/ L 1.56-6.13 (BEAKER) (test gygz=869) LYMPHOCYTES ABSOLUTE COUNT 0.62 K/ L 1.18-3.74 (BEAKER) (test khng=027) MONOCYTES ABSOLUTE COUNT 0.46 K/ L 0.24-0.36 (BEAKER) (test blsf=150) EOSINOPHILS ABSOLUTE COUNT 0.01 K/ L 0.04-0.36 (BEAKER) (test qaqt=130) BASOPHILS ABSOLUTE COUNT 0.01 K/ L 0.01-0.08 (BEAKER) (test wnnz=463) IMMATURE GRANULOCYTES-RELATIVE 1 % 0-1 PERCENT (BEAKER) (test hvmw=8907) BASIC METABOLIC [id number] 16:10:00 Test Item Value Reference Range Comments SODIUM (BEAKER) (test 129 meq/L 136-145 ufsh=498) POTASSIUM (BEAKER) (test 4.8 meq/L 3.5-5.1 kabb=820) CHLORIDE (BEAKER) (test 94 meq/L 98-107 yxvb=601) CO2 (BEAKER) (test 19 meq/L 22-29 opka=152) BLOOD UREA NITROGEN 88 mg/dL 7-21 (BEAKER) (test wwnp=418) CREATININE (BEAKER) (test 4.42 mg/dL 0.57-1.25 jxgr=424) GLUCOSE RANDOM (BEAKER) 111 mg/dL 70-105 (test pxpb=610) CALCIUM (BEAKER) (test 8.4 mg/dL 8.4-10.2 putn=827) EGFR (BEAKER) (test 10 mL/min/1.73 sq m ESTIMATED GFR IS NOT zvzm=2010) ACCURATE CREATININE CLEARANCE IN PREDICTING GLOMERULAR FILTRATION RATE. ESTIMATED GFR IS NOT APPLICABLE FOR DIALYSIS PATIENTS. [id number] 11:52:00 Test Item Value Reference Range Comments HAPTOGLOBIN (BEAKER) (test emrq=537) 34 mg/dL 14-258 PERIPHERAL BLOOD SMEAR - HOLD [id number] 10:25:00 Test Item Value Reference Range Comments PERIPHERAL SMEAR SAVE (BEAKER) (test qdtg=6747) saved CALCIUM, [id number] 09:40:00 Test Item Value Reference Range Comments CALCIUM IONIZED (BEAKER) (test mgqi=376) 0.94 mmol/L 1.12-1.27 PH, BLOOD (BEAKER) (test vnow=4777) 7.48 LACTATE DEHYDROGENASE (LDH)2018-03-18 09:27:00 Test Item Value Reference Range Comments LACTATE DEHYDROGENASE (BEAKER) (test ysvh=947) 599 U/L 125-220 CBC (HEMOGRAM ONLY)2018-03-18 09:27:00 Test Item Value Reference Range Comments WHITE BLOOD CELL COUNT (BEAKER) (test edsu=987) 4.2 K/ L 3.5-10.5 RED BLOOD CELL COUNT (BEAKER) (test pxgj=893) 2.34 M/ L 3.93-5.22 HEMOGLOBIN (BEAKER) (test eqvi=841) 7.4 GM/DL 11.2-15.7 HEMATOCRIT (BEAKER) (test szol=655) 22.8 % 34.1-44.9 MEAN CORPUSCULAR VOLUME (BEAKER) (test qsiv=372) 97.4 fL 79.4-94.8 MEAN CORPUSCULAR HEMOGLOBIN (BEAKER) (test 31.6 pg 25.6-32.2 uyxr=428) MEAN CORPUSCULAR HEMOGLOBIN CONC (BEAKER) (test 32.5 GM/DL 32.2-35.5 egac=777) RED CELL DISTRIBUTION WIDTH (BEAKER) (test 22.5 % 11.7-14.4 rmhe=512) PLATELET COUNT (BEAKER) (test wasm=390) 39 K/CU MM 150-450 NUCLEATED RED BLOOD CELLS (BEAKER) (test 1 /100 WBC 0-0 ejeh=424) RETICULOCYTE [id number] 09:24:00 Test Item Value Reference Range Comments RETICULOCYTE COUNT PCT (BEAKER) (test rrcu=273) 6.9 % 0.5-1.7 [id number] 09:16:00 Test Item Value Reference Range Comments D-DIMER QUANTITATIVE (BEAKER) (test hbkq=521) 3.18 MG/L FEU <0.50 Intended Use: The D-Dimer Assay can be used to aid in the diagnosis of Deep Vein Thrombosis (DVT) and Pulmonary Embolism Disease (PED).In patients with low pre-test probability, various studies concerning STA Liatest D-dimer test have reported that with a cutoff value of 0.50 MG/L FEU, the Negative Predictive Value (NPV) regarding the exclusion of thrombosis is within 95-100% range.[id number] 09:14:00 Test Item Value Reference Range Comments PARTIAL THROMBOPLASTIN TIME (BEAKER) (test 38.9 seconds 22.5-36.0 opxu=038) PROTHROMBIN [id number] 09:13:00 Test Item Value Reference Range Comments PROTIME (BEAKER) (test acxy=835) 15.3 seconds 11.7-14.7 INR (BEAKER) (test wilh=102) 1.2 <=5.9 RECOMMENDED COUMADIN/WARFARIN INR THERAPY RANGESSTANDARD DOSE: 2.0 - 3.0 Includes: PROPHYLAXIS forvenous thrombosis, systemic embolization; TREATMENT for venous thrombosis and/or pulmonary embolus.HIGH RISK: Target INR is 2.5-3.5 for patients with mechanical heart valves.BASIC METABOLIC [id number] 08:52: 00 Test Item Value Reference Range Comments SODIUM (BEAKER) (test 135 meq/L 136-145 infn=004) POTASSIUM (BEAKER) (test 4.9 meq/L 3.5-5.1 iqny=042) CHLORIDE (BEAKER) (test 96 meq/L 98-107 vapy=650) CO2 (BEAKER) (test 23 meq/L 22-29 klsm=967) BLOOD UREA NITROGEN 77 mg/dL 7-21 (BEAKER) (test hmwl=286) CREATININE (BEAKER) (test 4.04 mg/dL 0.57-1.25 ynej=145) GLUCOSE RANDOM (BEAKER) 137 mg/dL 70-105 (test ymrc=936) CALCIUM (BEAKER) (test 8.8 mg/dL 8.4-10.2 yqcv=977) EGFR (BEAKER) (test 12 mL/min/1.73 sq m ESTIMATED GFR IS NOT lzae=3294) ACCURATE CREATININE CLEARANCE IN PREDICTING GLOMERULAR FILTRATION RATE. ESTIMATED GFR IS NOT APPLICABLE FOR DIALYSIS PATIENTS. CALCIUM, [id number] 08:21:00 Test Item Value Reference Range Comments CALCIUM IONIZED (BEAKER) (test jyti=649) 0.72 mmol/L 1.12-1.27 PH, BLOOD (BEAKER) (test onsk=0393) 7.46 OSMOLALITY, [id number] 07:36:00 Test Item Value Reference Range Comments OSMOLALITY URINE (BEAKER) (test vanx=553) 316 mOsm/kg 40-1400 OSMOLALITY, [id number] 07:34:00 Test Item Value Reference Range Comments OSMOLALITY, SERUM (BEAKER) (test mpkm=177) 303 mOsm/kg 275-295 CREATININE, RANDOM [id number] 07:26:00 Test Item Value Reference Range Comments CREATININE URINE (BEAKER) (test zwus=378) 36.3 mg/dL Reference Range: No NormalsPOTASSIUM, RANDOM [id number] 07:26:00 Test Item Value Reference Range Comments POTASSIUM URINE (BEAKER) (test ywhh=385) 41.5 meq/L Reference Range: No NormalsSODIUM, RANDOM [id number] 07:26:00 Test Item Value Reference Range Comments SODIUM URINE (BEAKER) (test fasu=026) 57 meq/L Reference Range: No NormalsUREA NITROGEN, RANDOM [id number] 07:26:00 Test Item Value Reference Range Comments UREA NITROGEN URINE (BEAKER) (test phry=211) 298 mg/dL Reference Range: No NormalsPERIPHERAL BLOOD SMEAR - HOLD [id number] 07:20:00 Test Item Value Reference Range Comments PERIPHERAL SMEAR SAVE (BEAKER) (test piwh=1585) saved BASIC METABOLIC [id number] 06:08:00 Test Item Value Reference Range Comments SODIUM (BEAKER) (test 128 meq/L 136-145 enuk=573) POTASSIUM (BEAKER) (test 4.6 meq/L 3.5-5.1 gtds=353) CHLORIDE (BEAKER) (test 94 meq/L 98-107 ilzs=252) CO2 (BEAKER) (test 20 meq/L 22-29 pdty=237) BLOOD UREA NITROGEN 84 mg/dL 7-21 (BEAKER) (test iesm=391) CREATININE (BEAKER) (test 4.34 mg/dL 0.57-1.25 fiez=015) GLUCOSE RANDOM (BEAKER) 120 mg/dL 70-105 (test zamf=614) CALCIUM (BEAKER) (test 6.8 mg/dL 8.4-10.2 glud=494) EGFR (BEAKER) (test 11 mL/min/1.73 sq m ESTIMATED GFR IS NOT wypy=5005) ACCURATE CREATININE CLEARANCE IN PREDICTING GLOMERULAR FILTRATION RATE. ESTIMATED GFR IS NOT APPLICABLE FOR DIALYSIS PATIENTS. VANCOMYCIN LEVEL, [id number] 06:05:00 Test Item Value Reference Range Comments VANCOMYCIN RANDOM (BEAKER) (test gckx=823) < ug/mL Reference Range: No NormalsCALCIUM, [id number] 04:20:00 Test Item Value Reference Range Comments CALCIUM IONIZED (BEAKER) (test aeol=097) 0.81 mmol/L 1.12-1.27 PH, BLOOD (BEAKER) (test yhxp=5999) 7.40 Range 1.12 - [id number] 03:54:00 Test Item Value Reference Range Comments D-DIMER QUANTITATIVE (BEAKER) (test tfnv=884) 4.50 MG/L FEU <0.50 Intended Use: The D-Dimer Assay can be used to aid in the diagnosis of Deep Vein Thrombosis (DVT) and Pulmonary Embolism Disease (PED).In patients with low pre-test probability, various studies concerning STA Liatest D-dimer test have reported that with a cutoff value of 0.50 MG/L FEU, the Negative Predictive Value (NPV) regarding the exclusion of thrombosis is within 95-100% range.[id number] 02:58:00 Test Item Value Reference Range Comments PROCALCITONIN (BEAKER) (test gtoe=7643) 8.65 ng/mL <0.05 SEPSIS RISK (ng/mL)Low: 0.05-0.50Intermediate: 0.51-2.00High: & gt;=2.01TROPONIN [id number] 02:29:00 Test Item Value Reference Range Comments TROPONIN I (BEAKER) (test rgla=955) 0.77 ng/mL 0.00-0.03 Troponin I (TnI) levels [...] acute neurological disease, and persistent tachyarrhythmia.COMPREHENSIVE METABOLIC [id number] 02:11:00 Test Item Value Reference Range Comments TOTAL PROTEIN (BEAKER) 6.8 gm/dL 6.0-8.3 (test zaml=191) ALBUMIN (BEAKER) (test 2.9 g/dL 3.5-5.0 jieg=3246) ALKALINE PHOSPHATASE 100 U/L 40-150 (BEAKER) (test jtau=461) BILIRUBIN TOTAL (BEAKER) 1.4 mg/dL 0.2-1.2 (test rzec=102) SODIUM (BEAKER) (test 127 meq/L 136-145 qhpi=839) POTASSIUM (BEAKER) (test 5.0 meq/L 3.5-5.1 gjpn=024) CHLORIDE (BEAKER) (test 101 meq/L 98-107 curd=891) CO2 (BEAKER) (test 15 meq/L 22-29 szsj=762) BLOOD UREA NITROGEN 87 mg/dL 7-21 (BEAKER) (test vqfp=125) CREATININE (BEAKER) (test 4.62 mg/dL 0.57-1.25 cknp=490) GLUCOSE RANDOM (BEAKER) 128 mg/dL 70-105 (test zwjr=828) CALCIUM (BEAKER) (test 6.9 mg/dL 8.4-10.2 hdcl=474) AST (SGOT) (BEAKER) (test 79 U/L 5-34 hjid=253) ALT (SGPT) (BEAKER) (test 45 U/L 6-55 kyjc=217) EGFR (BEAKER) (test 10 mL/min/1.73 sq m ESTIMATED GFR IS NOT hsit=5631) ACCURATE CREATININE CLEARANCE IN PREDICTING GLOMERULAR FILTRATION RATE. ESTIMATED GFR IS NOT APPLICABLE FOR DIALYSIS PATIENTS. RAD, CHEST, 1 VIEW, NON [id number] 01:44:00Reason for exam:-> HEMODIALYSIS CATHTER PLACEMENTShould this [...] effusions. There is no pneumothorax. Signed: Haritha Vázquezeport Verified Date/Time: 03/18/2018 01:44:10 Reading Location: [facility] B1 C013Y CT Body Reading Room [id number] 01:37:00 Test Item Value Reference Range Comments FIBRINOGEN LEVEL (BEAKER) (test oawe=370) 466 mg/dl 225-434 [id number] 01:37:00 Test Item Value Reference Range Comments PARTIAL THROMBOPLASTIN TIME (BEAKER) (test 33.6 seconds 22.5-36.0 ican=055) PROTHROMBIN [id number] 01:36:00 Test Item Value Reference Range Comments PROTIME (BEAKER) (test yznr=396) 17.0 seconds 11.7-14.7 INR (BEAKER) (test ugof=751) 1.4 <=5.9 RECOMMENDED COUMADIN/WARFARIN INR THERAPY RANGESSTANDARD DOSE: 2.0 - 3.0 Includes: PROPHYLAXIS forvenous thrombosis, systemic embolization; TREATMENT for venous thrombosis and/or pulmonary embolus.HIGH RISK: Target INR is 2.5-3.5 for patients with mechanical heart valves.LACTIC ACID, VENOUS, WHOLE [id number] 01:26:00 Test Item Value Reference Range Comments LACTATE BLOOD VENOUS (2) (BEAKER) (test 1.7 mmol/L 0.5-2.2 jamq=1692) Effective 11/28/2015: Units/Reference Range ChangeNew: 0.5-2.2 mmol/L Previous: 5 -20 mg/dLCBC (HEMOGRAM ONLY)2018-03-18 01:16:00 Test Item Value Reference Range Comments WHITE BLOOD CELL COUNT (BEAKER) (test crnb=418) 4.3 K/ L 3.5-10.5 RED BLOOD CELL COUNT (BEAKER) (test cenq=658) 2.67 M/ L 3.93-5.22 HEMOGLOBIN (BEAKER) (test fghz=289) 8.6 GM/DL 11.2-15.7 HEMATOCRIT (BEAKER) (test mraw=177) 25.6 % 34.1-44.9 MEAN CORPUSCULAR VOLUME (BEAKER) (test fsre=039) 95.9 fL 79.4-94.8 MEAN CORPUSCULAR HEMOGLOBIN (BEAKER) (test 32.2 pg 25.6-32.2 qfcb=425) MEAN CORPUSCULAR HEMOGLOBIN CONC (BEAKER) (test 33.6 GM/DL 32.2-35.5 uhgc=346) RED CELL DISTRIBUTION WIDTH (BEAKER) (test 21.9 % 11.7-14.4 zdwi=459) PLATELET COUNT (BEAKER) (test gydr=416) 39 K/CU MM 150-450 NUCLEATED RED BLOOD CELLS (BEAKER) (test 1 /100 WBC 0-0 fpus=714) CT, BIOPSY, BONE [id number] 17:06:00Reason for exam:->pancytopenia in setting of metastatic breast cancer, chemotherapy held almost 2monthsFINAL REPORT PROCEDURE: CT-guided bone marrow biopsy DOSE REDUCTION: The examination was performed according to departmental dose- optimization program which includes automated exposure control, adjustment of the mA and/or kV according to patient size and/or use of iterative reconstruction technique. Clinical History: Pancytopenia Lead Technologist In Cytogenetics: Marce Conscious sedation: Versed 1 mg,fentanyl 50 [...] aspiration and core biopsy. Signed: Jordan Sultaan Verified Date/Time: 03/17/2018 17:06:03 Reading Location: [facility] Radiology Reading Room 05: 06 PMBONE MARROW PROCESS ([facility]2018-03-17 15:16:00 Test Item Value Reference Range Comments ANATOMIC CASE# (ADDY) (test rejw=2245) [id number] ORDERED BY DOCTOR# (ADDY) (test yhxg=8384) jordan Sultana m.d. PERFORMED BY DOCTOR# (ADDY) (test Jordan Sultana m.d. ylng=5935) CLOT RECEIVED? (BEAKER) (test sqhx=1812) Yes BIOPSY RECEIVED? (BEAKER) (test uonf=7019) Yes CULTURE RECEIVED? (BEAKER) (test pepe=7538) No FLOW RECEIVED? (BEAKER) (test nfdg=2466) Yes CYTOGENICS? (BEAKER) (test omnp=0020) Yes MOLECULAR GENETICS? (BEAKER) (test No hnvf=1359) RAD, CHEST, 2 [id number] 13:39:00Reason for exam:->sobFINAL REPORT Comparison: 15/08/2017 TECHNIQUE: 2 views of the chest FINDINGS: There is mild vascular congestion. There are small pleural effusions. Cardiac silhouette is enlarged.Left internal jugular chest port noted with tip at the cavoatrial junction. Surgical clips project over the right chest wall. Signed: Jordan Sultana MDReport Verified Date/Time: 03/17/2018 13:39:16 Reading Location: [facility] Radiology Reading Room [id number] 13:20:00 Test Item Value Reference Range Comments HAPTOGLOBIN (BEAKER) (test uvaw=961) < mg/dL 14-258 COMPLEMENT COMPONENT [id number] 12:57:00 Test Item Value Reference Range Comments C4 COMPLEMENT (BEAKER) (test xhmc=650) 22 mg/dL 15-57 COMPLEMENT COMPONENT [id number] 12:57:00 Test Item Value Reference Range Comments C3 COMPLEMENT (BEAKER) (test fryc=692) 94 mg/dL 82-193 PERIPHERAL BLOOD SMEAR - PATHOLOGIST [id number] 09:47:00 Test Item Value Reference Range Comments PERIPHERAL SMR REVIEW Normochromic normocytic anemia (BEAKER) (test knvb=1725) with rare schistocytes seen (1-2/ HPF). WBCs normal in number and morphology. Thrombocytopenia with a few large forms. [id number] Michelle Yu M.D. (electronic (BEAKER) (test tmjx=1874) signature) TROPONIN [id number] 07:07:00 Test Item Value Reference Range Comments TROPONIN I (BEAKER) (test sqjf=881) 1.56 ng/mL 0.00-0.15 Troponin I (TnI) levels [...] acute neurological disease, and persistent tachyarrhythmia.BASIC METABOLIC [id number] 07:06:00 Test Item Value Reference Range Comments SODIUM (BEAKER) (test 131 meq/L 135-148 stgl=333) POTASSIUM (BEAKER) (test 5.8 meq/L 3.6-5.5 guvp=304) CHLORIDE (BEAKER) (test 107 meq/L 98-106 zzkq=799) CO2 (BEAKER) (test 12 meq/L 20-29 dzoj=561) BLOOD UREA NITROGEN 74 mg/dL 10-26 (BEAKER) (test wwpr=731) CREATININE (BEAKER) (test 3.95 mg/dL 0.50-1.20 jhsk=084) GLUCOSE RANDOM (BEAKER) 133 mg/dL 70-110 (test vvgg=123) CALCIUM (BEAKER) (test 7.6 mg/dL 8.5-10.5 cicc=070) EGFR (BEAKER) (test 12 mL/min/1.73 sq m ESTIMATED GFR IS NOT akyb=8827) ACCURATE CREATININE CLEARANCE IN PREDICTING GLOMERULAR FILTRATION RATE. ESTIMATED GFR IS NOT APPLICABLE FOR DIALYSIS PATIENTS. [id number] 06:45:00 Test Item Value Reference Range Comments MAGNESIUM (BEAKER) (test zrab=034) 2.0 mg/dL 1.5-3.0 CBC W/PLT COUNT & AUTO [id number] 06:35:00 Test Item Value Reference Range Comments WHITE BLOOD CELL COUNT (BEAKER) (test sqwi=645) 8.7 K/ L 4.0-10.0 RED BLOOD CELL COUNT (BEAKER) (test vzjg=724) 3.26 M/ L 4.00-5.00 HEMOGLOBIN (BEAKER) (test xzgv=638) 10.2 GM/DL 12.0-15.5 HEMATOCRIT (BEAKER) (test lror=088) 31.9 % 36.0-46.0 MEAN CORPUSCULAR VOLUME (BEAKER) (test opxq=499) 97.9 fL 82.0-99.0 MEAN CORPUSCULAR HEMOGLOBIN (BEAKER) (test 31.3 pg 27.0-33.0 ckoq=897) MEAN CORPUSCULAR HEMOGLOBIN CONC (BEAKER) (test 32.0 GM/DL 32.0-36.0 fyov=173) RED CELL DISTRIBUTION WIDTH (BEAKER) (test 20.8 % 12.0-15.0 fqqc=550) PLATELET COUNT (BEAKER) (test hanl=626) 62 K/CU MM 150-430 MEAN PLATELET VOLUME (BEAKER) (test duze=825) 10.5 fL 6.0-11.5 NUCLEATED RED BLOOD CELLS (BEAKER) (test 0 /100 WBC 0-0 xohe=670) NEUTROPHILS RELATIVE PERCENT (BEAKER) (test 80 % yqty=584) LYMPHOCYTES RELATIVE PERCENT (BEAKER) (test 11 % brbz=169) MONOCYTES RELATIVE PERCENT (BEAKER) (test 8 % qfek=754) EOSINOPHILS RELATIVE PERCENT (BEAKER) (test 0 % srmn=765) BASOPHILS RELATIVE PERCENT (BEAKER) (test 0 % sowd=627) NEUTROPHILS ABSOLUTE COUNT (BEAKER) (test 6.95 K/ L 1.80-8.00 bvvq=916) LYMPHOCYTES ABSOLUTE COUNT (BEAKER) (test 0.92 K/ L 1.48-4.50 oran=765) MONOCYTES ABSOLUTE COUNT (BEAKER) (test uvnr=389) 0.72 K/ L 0.00-1.30 EOSINOPHILS ABSOLUTE COUNT (BEAKER) (test 0.00 K/ L 0.00-0.50 mylo=606) BASOPHILS ABSOLUTE COUNT (BEAKER) (test inwk=423) 0.01 K/ L 0.00-0.20 IMMATURE GRANULOCYTES-RELATIVE PERCENT (BEAKER) 1 % 0-0 (test cawa=8709) BLOOD GAS, [id number] 05:27:00 Test Item Value Reference Range Comments PH ARTERIAL (BEAKER) (test dumy=348) 7.40 7.35-7.45 PCO2 ARTERIAL (BEAKER) (test eisp=718) 18 mmHg 35-45 PO2 ARTERIAL (BEAKER) (test qcju=803) 72 mmHg 80-90 O2 SATURATION ARTERIAL (BEAKER) (test uzsw=341) 94.7 % 96.0-97.0 HCO3 ARTERIAL (BEAKER) (test ztmk=458) 11 mmol/L 21-29 BASE EXCESS ARTERIAL (BEAKER) (test gacg=823) -12.0 mmol/L -2.0-3.0 PATIENT TEMPERATURE (BEAKER) (test oxdw=7814) 37.5 C FIO2 (BEAKER) (test rghx=0968) 28.0 % PROTEIN, RANDOM [id number] 00:47:00 Test Item Value Reference Range Comments PROTEIN, URINE (BEAKER) (test xlzx=2584) 432 mg/dL 0-14 CREATININE, RANDOM [id number] 00:03:00 Test Item Value Reference Range Comments CREATININE URINE (BEAKER) (test yoqg=057) 68.6 mg/dL Reference Range: No NormalsURINALYSIS W/ [id number] 23:56:00 Test Item Value Reference Range Comments COLOR (BEAKER) (test gokn=387) Yellow CLARITY (BEAKER) (test bvbt=069) Clear SPECIFIC GRAVITY UA (BEAKER) (test mjjm=882) 1.020 1.001-1.035 PH UA (BEAKER) (test iswd=921) 5.5 5.0-8.0 PROTEIN UA (BEAKER) (test rntw=593) >=300 mg/dL Negative GLUCOSE UA (BEAKER) (test bvgs=707) Negative Negative KETONES UA (BEAKER) (test vjvu=516) Negative Negative BILIRUBIN UA (BEAKER) (test eyix=718) Negative Negative BLOOD UA (BEAKER) (test pzss=570) Large Negative NITRITE UA (BEAKER) (test zyka=710) Negative Negative LEUKOCYTE ESTERASE UA (BEAKER) (test bodc=271) Trace Negative UROBILINOGEN UA (BEAKER) (test vwpm=995) 0.2 mg/dL 0.2-1.0 BACTERIA (BEAKER) (test jibb=738) Occasional AMORPHOUS CRYSTALS (BEAKER) (test axpk=0089) Few RBC UA-MANUAL (BEAKER) (test fgqq=4375) 5-10 /HPF WBC UA-MANUAL (BEAKER) (test fjzk=5691) <5 /HPF SQUAMOUS EPITHELIAL MANUAL (BEAKER) (test 5-10 /HPF detc=6566) GRANULAR CASTS MANUAL (BEAKER) (test andn=5199) Few /LPF SOURCE(BEAKER) (test bdad=5430) KETONE, [id number] 22:28:00 Test Item Value Reference Range Comments KETONES, BLOOD (BEAKER) (test qtlv=0413) 0.3 mmol/L <0.4 BILIRUBIN, TOTAL AND [id number] 22:17:00 Test Item Value Reference Range Comments BILIRUBIN TOTAL (BEAKER) (test bnox=693) 2.1 mg/dL 0.1-1.2 BILIRUBIN DIRECT (BEAKER) (test frbb=725) 1.1 mg/dL 0.0-0.4 LACTATE DEHYDROGENASE (LDH)2018-03-16 22:16:00 Test Item Value Reference Range Comments LACTATE DEHYDROGENASE (BEAKER) (test ekgv=941) 1540 U/L 107-206 TROPONIN [id number] 19:44:00 Test Item Value Reference Range Comments TROPONIN I (BEAKER) (test vlbp=351) 0.24 ng/mL 0.00-0.15 Troponin I (TnI) levels [...] acidosis, acute neurological disease, and persistent tachyarrhythmia.TROPONIN [id number] 10:58:00 Test Item Value Reference Range Comments TROPONIN I (BEAKER) (test jfsx=252) 0.17 ng/mL 0.00-0.15 Troponin I (TnI) levels [...] and persistent tachyarrhythmia.CREATINE KINASE (CK), TOTAL AND [id number] 10:57:00 Test Item Value Reference Range Comments CREATINE KINASE TOTAL (BEAKER) (test tbfj=795) 125 U/L 25-235 CREATINE KINASE-MB (BEAKER) (test nesw=791) 0.9 ng/mL 0.0-4.9 CREATINE KINASE-MB INDEX (BEAKER) (test eurb=260) 0.7 % CK-MB Reference Range:<5 Normal5-10 Borderline>10 AbnormalCOMPREHENSIVE METABOLIC [id number] 10:53:00 Test Item Value Reference Range Comments TOTAL PROTEIN (BEAKER) 7.7 gm/dL 6.0-8.5 (test kudw=591) ALBUMIN (BEAKER) (test 3.4 g/dL 3.5-5.0 kezq=8100) ALKALINE PHOSPHATASE 45 U/L 30-115 (BEAKER) (test tfiq=069) BILIRUBIN TOTAL (BEAKER) 1.4 mg/dL 0.1-1.2 (test szfw=164) SODIUM (BEAKER) (test 132 meq/L 135-148 fxsr=934) POTASSIUM (BEAKER) (test 4.8 meq/L 3.6-5.5 lpkw=372) CHLORIDE (BEAKER) (test 106 meq/L 98-106 hnlt=946) CO2 (BEAKER) (test 13 meq/L 20-29 hxhb=765) BLOOD UREA NITROGEN 63 mg/dL 10-26 (BEAKER) (test rsub=776) CREATININE (BEAKER) (test 3.73 mg/dL 0.50-1.20 erpo=832) GLUCOSE RANDOM (BEAKER) 94 mg/dL 70-110 (test aikp=231) CALCIUM (BEAKER) (test 8.2 mg/dL 8.5-10.5 klio=311) AST (SGOT) (BEAKER) (test 59 U/L 5-40 keqq=484) ALT (SGPT) (BEAKER) (test 23 U/L 5-50 yaat=018) EGFR (BEAKER) (test 13 mL/min/1.73 sq m ESTIMATED GFR IS NOT ihkn=9079) ACCURATE CREATININE CLEARANCE IN PREDICTING GLOMERULAR FILTRATION RATE. ESTIMATED GFR IS NOT APPLICABLE FOR DIALYSIS PATIENTS. URINALYSIS W/ [id number] 10:49:00 Test Item Value Reference Range Comments COLOR (BEAKER) (test wtin=144) Yellow CLARITY (BEAKER) (test uszs=682) Clear SPECIFIC GRAVITY UA (BEAKER) (test ndoc=892) 1.020 1.001-1.035 PH UA (BEAKER) (test hoar=187) 5.5 5.0-8.0 PROTEIN UA (BEAKER) (test fwrt=098) >=300 mg/dL Negative GLUCOSE UA (BEAKER) (test dqsq=047) Negative Negative KETONES UA (BEAKER) (test dfpp=516) Negative Negative BILIRUBIN UA (BEAKER) (test cokn=055) Negative Negative BLOOD UA (BEAKER) (test xxbt=889) Large Negative NITRITE UA (BEAKER) (test pxdo=747) Negative Negative LEUKOCYTE ESTERASE UA (BEAKER) (test tpbk=027) Negative Negative UROBILINOGEN UA (BEAKER) (test swqz=049) 0.2 mg/dL 0.2-1.0 BACTERIA (BEAKER) (test zknx=767) Few AMORPHOUS CRYSTALS (BEAKER) (test srmo=4722) Moderate RBC UA-MANUAL (BEAKER) (test osfm=0235) 5-10 /HPF WBC UA-MANUAL (BEAKER) (test esxu=5061) <5 /HPF SQUAMOUS EPITHELIAL MANUAL (BEAKER) (test 5-10 /HPF sabo=1723) WAXY CASTS MANUAL (BEAKER) (test ddnl=4544) 5-10 /LPF SOURCE(BEAKER) (test qagi=6661) CBC W/PLT COUNT & AUTO [id number] 10:49:00 Test Item Value Reference Range Comments WHITE BLOOD CELL COUNT (BEAKER) (test tskg=591) 4.0 K/ L 4.0-10.0 RED BLOOD CELL COUNT (BEAKER) (test gmul=862) 1.64 M/ L 4.00-5.00 HEMOGLOBIN (BEAKER) (test mvvx=525) 5.5 GM/DL 12.0-15.5 HEMATOCRIT (BEAKER) (test yzaf=729) 17.6 % 36.0-46.0 MEAN CORPUSCULAR VOLUME (BEAKER) (test rvej=188) 107.3 fL 82.0-99.0 MEAN CORPUSCULAR HEMOGLOBIN (BEAKER) (test 33.5 pg 27.0-33.0 okrv=707) MEAN CORPUSCULAR HEMOGLOBIN CONC (BEAKER) (test 31.3 GM/DL 32.0-36.0 uyes=108) RED CELL DISTRIBUTION WIDTH (BEAKER) (test 23.5 % 12.0-15.0 dcqg=119) PLATELET COUNT (BEAKER) (test eniu=363) 66 K/CU MM 150-430 MEAN PLATELET VOLUME (BEAKER) (test cweb=547) 11.3 fL 6.0-11.5 NUCLEATED RED BLOOD CELLS (BEAKER) (test 0 /100 WBC 0-0 qtsq=714) NEUTROPHILS RELATIVE PERCENT (BEAKER) (test 81 % avpa=251) LYMPHOCYTES RELATIVE PERCENT (BEAKER) (test 9 % blgw=249) MONOCYTES RELATIVE PERCENT (BEAKER) (test 9 % ouuq=544) EOSINOPHILS RELATIVE PERCENT (BEAKER) (test 0 % eeph=386) BASOPHILS RELATIVE PERCENT (BEAKER) (test 0 % mldp=414) NEUTROPHILS ABSOLUTE COUNT (BEAKER) (test 3.21 K/ L 1.80-8.00 pwka=936) LYMPHOCYTES ABSOLUTE COUNT (BEAKER) (test 0.36 K/ L 1.48-4.50 bkpg=452) MONOCYTES ABSOLUTE COUNT (BEAKER) (test qypr=419) 0.34 K/ L 0.00-1.30 EOSINOPHILS ABSOLUTE COUNT (BEAKER) (test 0.01 K/ L 0.00-0.50 mydc=928) BASOPHILS ABSOLUTE COUNT (BEAKER) (test gdfn=318) 0.00 K/ L 0.00-0.20 IMMATURE GRANULOCYTES-RELATIVE PERCENT (BEAKER) 1 % 0-0 (test szlz=8333) (MANUAL DIFFERENTIAL)2018-03-16 10:49:00 Test Item Value Reference Range Comments TOTAL COUNTED (BEAKER) (test tjxy=1490) WBC MORPHOLOGY (BEAKER) (test eisr=329) Normal PLT MORPHOLOGY (BEAKER) (test zydz=831) Normal SCHISTOCYTES (BEAKER) (test xbzn=533) 1+ few ANISOCYTOSIS (BEAKER) (test ffkq=165) 1+ few MACROCYTES (BEAKER) (test gthv=459) 1+ few MICROCYTES (BEAKER) (test wpcg=784) 1+ few POIKILOCYTES (BEAKER) (test aqyc=820) 1+ few POLYCHROMATOPHILLIC RBCS(BEAKER) (test vlil=187) 1+ few [id number] 10:46:00 Test Item Value Reference Range Comments PROTIME (BEAKER) (test xeko=474) 11.1 sec 9.3-12.0 INR (BEAKER) (test pgmo=476) 1.0 <=5.9 PARTIAL THROMBOPLASTIN TIME (BEAKER) (test 31.0 sec 23.0-35.0 zbcx=356) RECOMMENDED COUMADIN/WARFARIN INR THERAPY RANGESSTANDARD DOSE: 2.0 - 3.0 Includes: PROPHYLAXIS forvenous thrombosis, systemic embolization; TREATMENT for venous thrombosis and/or pulmonary embolus.HIGH RISK: Target INR is 2.5-3.5 for patients with mechanical heart valves.Final Information (Auto Output)Final Information (Auto Output)Final Information (Auto Output)LACTIC ACID, VENOUS, WHOLE [id number] 10:45:00 Test Item Value Reference Range Comments LACTATE BLOOD VENOUS (2) (BEAKER) (test 2.2 mmol/L 0.5-2.2 kwmz=9588) Effective 11/28/2015: Units/Reference Range ChangeNew: 0.5-2.2 mmol/L Previous: 5 -18 mg/dLRAD, CHEST, 1 VIEW, NON [id number] 10:14:00Reason for exam:-> chest painIs the patient [...] MDReport Verified Date/Time: 03/16/2018 10:14:32 Reading Location: [facility] Radiology Reading Room 10: 14 AMBLOOD [id number] 22:01:00 Test Item Value Reference Range Comments CULTURE (BEAKER) (test nwym=0186) No growth in 5 days BLOOD [id number] 22:01:00 Test Item Value Reference Range Comments CULTURE (BEAKER) (test kvck=1506) No growth in 5 days RESPIRATORY PANEL [id number] 09:21:00 Test Item Value Reference Range Comments HUMAN METAPNEUMOVIRUS (BEAKER) (test Not detected Not detected, Inconclusive ytbj=3140) RHINOVIRUS (BEAKER) (test tosk=7297) Not detected Not detected, Inconclusive INFLUENZA A (BEAKER) (test Not detected Not detected, Inconclusive blmn=5340) INFLUENZA A SUBTYPE H1 (BEAKER) Not detected Not detected, Inconclusive (test stzz=4955) INFLUENZA A SUBTYPE H3 (BEAKER) Not detected Not detected, Inconclusive (test jjho=2237) INFLUENZA A SUBTYPE H1-2009 (BEAKER) Not detected Not detected, Inconclusive (test kkcb=3914) INFLUENZA B (BEAKER) (test Not detected Not detected, Inconclusive ggvb=4487) RESPIRATORY SYNCYTIAL VIRUS (BEAKER) Not detected Not detected, Inconclusive (test bmlb=9472) PARAINFLUENZA VIRUS 1 (BEAKER) (test Not detected Not detected, Inconclusive gkun=9575) PARAINFLUENZA VIRUS 2 (BEAKER) (test Not detected Not detected, Inconclusive cwxc=6695) PARAINFLUENZA VIRUS 3 (BEAKER) (test Not detected Not detected, Inconclusive hphd=4443) PARAINFLUENZA VIRUS 4 (BEAKER) (test Not detected Not detected, Inconclusive fdmr=2848) ADENOVIRUS (BEAKER) (test yblx=7263) Not detected Not detected, Inconclusive CORONAVIRUS 229E (BEAKER) (test Not detected Not detected, Inconclusive smxa=6983) CORONAVIRUS HKU1 (BEAKER) (test Not detected Not detected, Inconclusive zyva=0466) CORONAVIRUS NL63 (BEAKER) (test Not detected Not detected, Inconclusive zdqx=5488) CORONAVIRUS OC43 (BEAKER) (test Not detected Not detected, Inconclusive hmbf=4766) BORDETELLA PERTUSSIS (BEAKER) (test Not detected Not detected, Inconclusive nfco=3885) CHLAMYDOPHILA PNEUMONIAE (BEAKER) Not detected Not detected, Inconclusive (test gmne=0485) MYCOPLASMA PNEUMONIAE (BEAKER) (test Not detected Not detected, Inconclusive ufwp=4602) VANCOMYCIN LEVEL, [id number] 07:38:00 Test Item Value Reference Range Comments VANCOMYCIN TROUGH (BEAKER) (test ofvs=108) 11.7 ug/mL 10.0-20.0 URINE [id number] 08:56:00 Test Item Value Reference Range Comments CULTURE (BEAKER) (test fbym=2947) No growth CBC W/PLT COUNT & AUTO [id number] 06:39:00 Test Item Value Reference Range Comments WHITE BLOOD CELL COUNT (BEAKER) (test yglp=529) 2.4 K/ L 4.0-10.0 RED BLOOD CELL COUNT (BEAKER) (test qlke=530) 2.56 M/ L 4.00-5.00 HEMOGLOBIN (BEAKER) (test ndyz=733) 8.4 GM/DL 12.0-15.0 HEMATOCRIT (BEAKER) (test sqfc=018) 24.6 % 36.0-45.0 MEAN CORPUSCULAR VOLUME (BEAKER) (test uthy=541) 96.4 fL 82.0-99.0 MEAN CORPUSCULAR HEMOGLOBIN (BEAKER) (test 33.0 pg 27.0-33.0 reef=242) MEAN CORPUSCULAR HEMOGLOBIN CONC (BEAKER) (test 34.2 GM/DL 32.0-36.0 apcc=963) RED CELL DISTRIBUTION WIDTH (BEAKER) (test 19.7 % 10.3-14.2 jjyd=680) PLATELET COUNT (BEAKER) (test jrxt=024) 108 K/CU MM 150-430 MEAN PLATELET VOLUME (BEAKER) (test whpa=172) 8.8 fL 6.5-10.5 NUCLEATED RED BLOOD CELLS (BEAKER) (test 0 /100 WBC 0-0 kjzt=796) (MANUAL DIFFERENTIAL)2017-12-10 06:39:00 Test Item Value Reference Range Comments NEUTROPHILS - REL (DIFF) (BEAKER) (test qbuh=1566) 83 % LYMPHOCYTES - REL (DIFF) (BEAKER) (test lrub=1256) 15 % MONOCYTES - REL (DIFF) (BEAKER) (test knhm=1962) 2 % NEUTROPHILS - ABS (DIFF) (BEAKER) (test ssvy=4434) 1.99 K/ L 1.80-8.00 LYMPHOCYTES - ABS (DIFF) (BEAKER) (test ygrf=3957) 0.36 K/ L 1.48-4.50 MONOCYTES - ABS (DIFF) (BEAKER) (test ybzo=9759) 0.05 K/ L 0.00-1.30 TOTAL COUNTED (BEAKER) (test ekvj=1881) 100 WBC MORPHOLOGY (BEAKER) (test rnxo=135) Normal PLT MORPHOLOGY (BEAKER) (test mrpu=981) Normal RBC MORPHOLOGY (BEAKER) (test ulrj=528) Normal POCT-GLUCOSE [id number] 14:39:00 Test Item Value Reference Range Comments POC-GLUCOSE METER (BEAKER) 125 mg/dL 70-110 [address]ED AT [address] (test czln=5892) [address] [facility] [address] CBC W/PLT COUNT & AUTO [id number] 06:47:00 Test Item Value Reference Range Comments WHITE BLOOD CELL COUNT (BEAKER) (test 2.2 K/ L 4.0-10.0 lqdp=081) RED BLOOD CELL COUNT (BEAKER) (test 2.72 M/ L 4.00-5.00 owkz=519) HEMOGLOBIN (BEAKER) (test rlyl=147) 9.1 GM/DL 12.0-15.0 HEMATOCRIT (BEAKER) (test jtag=089) 26.2 % 36.0-45.0 MEAN CORPUSCULAR VOLUME (BEAKER) (test 96.3 fL 82.0-99.0 uffd=051) MEAN CORPUSCULAR HEMOGLOBIN (BEAKER) 33.3 pg 27.0-33.0 (test uymx=746) MEAN CORPUSCULAR HEMOGLOBIN CONC 34.5 GM/DL 32.0-36.0 (BEAKER) (test cbgv=672) RED CELL DISTRIBUTION WIDTH (BEAKER) 18.3 % 10.3-14.2 (test ftxi=422) PLATELET COUNT (BEAKER) (test ntzk=114) 129 K/CU MM 150-430 No clot detected MEAN PLATELET VOLUME (BEAKER) (test 7.8 fL 6.5-10.5 zckt=036) NEUTROPHILS RELATIVE PERCENT (BEAKER) 81 % (test vsqi=270) LYMPHOCYTES RELATIVE PERCENT (BEAKER) 14 % (test azit=533) MONOCYTES RELATIVE PERCENT (BEAKER) 4 % (test ykda=319) EOSINOPHILS RELATIVE PERCENT (BEAKER) 0 % (test vsbc=943) BASOPHILS RELATIVE PERCENT (BEAKER) 0 % (test bwrg=201) NEUTROPHILS ABSOLUTE COUNT (BEAKER) 1.80 K/ L 1.80-8.00 (test mdvh=929) LYMPHOCYTES ABSOLUTE COUNT (BEAKER) 0.30 K/ L 1.48-4.50 (test lpel=888) MONOCYTES ABSOLUTE COUNT (BEAKER) (test 0.10 K/ L 0.00-1.30 tdoo=488) EOSINOPHILS ABSOLUTE COUNT (BEAKER) 0.00 K/ L 0.00-0.50 (test mtme=765) BASOPHILS ABSOLUTE COUNT (BEAKER) (test 0.00 K/ L 0.00-0.20 ouwx=539) BASIC METABOLIC [id number] 05:54:00 Test Item Value Reference Range Comments SODIUM (BEAKER) (test 138 meq/L 135-148 hbpi=046) POTASSIUM (BEAKER) (test 3.9 meq/L 3.6-5.5 yyvh=619) CHLORIDE (BEAKER) (test 105 meq/L 98-106 hlrn=855) CO2 (BEAKER) (test 26 meq/L 20-29 nsoe=264) BLOOD UREA NITROGEN 14 mg/dL 10-26 (BEAKER) (test mkkv=181) CREATININE (BEAKER) (test 0.76 mg/dL 0.50-1.20 pkdb=064) GLUCOSE RANDOM (BEAKER) 84 mg/dL 70-110 (test xfab=882) CALCIUM (BEAKER) (test 8.2 mg/dL 8.5-10.5 fqee=334) EGFR (BEAKER) (test 80 mL/min/1.73 sq m ESTIMATED GFR IS NOT aosf=1364) ACCURATE CREATININE CLEARANCE IN PREDICTING GLOMERULAR FILTRATION RATE. ESTIMATED GFR IS NOT APPLICABLE FOR DIALYSIS PATIENTS. RAD, CHEST, 2 [id number] 19:36:00Reason for exam:->FEVERIs the patient ?->NoShould this [...] MDReport Verified Date/Time: 12/08/2017 19:36:34 Reading Location: [address] Consult Reading Room URINALYSIS W/ [id number] 19:33:00 Test Item Value Reference Range Comments COLOR (BEAKER) (test vsgl=618) Yellow CLARITY (BEAKER) (test ubjr=667) Clear SPECIFIC GRAVITY UA (BEAKER) (test fxoq=641) <= 1.001-1.035 PH UA (BEAKER) (test wzij=705) 5.5 5.0-8.0 PROTEIN UA (BEAKER) (test eiuy=152) Negative Negative GLUCOSE UA (BEAKER) (test kxdp=344) Negative Negative KETONES UA (BEAKER) (test uzez=395) Negative Negative BILIRUBIN UA (BEAKER) (test hiou=585) Negative Negative BLOOD UA (BEAKER) (test ggfu=824) Negative Negative NITRITE UA (BEAKER) (test fxid=897) Negative Negative LEUKOCYTE ESTERASE UA (BEAKER) (test wwey=456) Negative Negative UROBILINOGEN UA (BEAKER) (test lmkl=907) 0.2 mg/dL 0.2-1.0 BACTERIA (BEAKER) (test yqnq=347) Occasional RBC UA-MANUAL (BEAKER) (test zvaz=9368) <5 /HPF WBC UA-MANUAL (BEAKER) (test trya=5938) <5 /HPF SQUAMOUS EPITHELIAL MANUAL (BEAKER) (test <5 /HPF ovrb=3718) SOURCE(BEAKER) (test uyst=5259) COMPREHENSIVE METABOLIC [id number] 19:01:00 Test Item Value Reference Range Comments TOTAL PROTEIN (BEAKER) 8.1 gm/dL 6.0-8.5 (test ovjx=798) ALBUMIN (BEAKER) (test 4.1 g/dL 3.5-5.0 zngx=3375) ALKALINE PHOSPHATASE 75 U/L 30-115 (BEAKER) (test xedl=232) BILIRUBIN TOTAL (BEAKER) 0.6 mg/dL 0.1-1.2 (test tmxk=156) SODIUM (BEAKER) (test 132 meq/L 135-148 lrto=926) POTASSIUM (BEAKER) (test 3.6 meq/L 3.6-5.5 phdc=412) CHLORIDE (BEAKER) (test 97 meq/L 98-106 oxav=860) CO2 (BEAKER) (test 23 meq/L 20-29 xcjr=946) BLOOD UREA NITROGEN 18 mg/dL 10-26 (BEAKER) (test gtpr=174) CREATININE (BEAKER) (test 1.02 mg/dL 0.50-1.20 oicy=891) GLUCOSE RANDOM (BEAKER) 102 mg/dL 70-110 (test ycev=625) CALCIUM (BEAKER) (test 8.6 mg/dL 8.5-10.5 cqkn=030) AST (SGOT) (BEAKER) (test 38 U/L 5-40 vgep=341) ALT (SGPT) (BEAKER) (test 49 U/L 5-50 egjv=263) EGFR (BEAKER) (test 57 mL/min/1.73 sq m ESTIMATED GFR IS NOT xvly=5575) ACCURATE CREATININE CLEARANCE IN PREDICTING GLOMERULAR FILTRATION RATE. ESTIMATED GFR IS NOT APPLICABLE FOR DIALYSIS PATIENTS. LACTIC ACID, VENOUS, WHOLE [id number] 18:53:00 Test Item Value Reference Range Comments LACTATE BLOOD VENOUS (2) (BEAKER) (test 0.8 mmol/L 0.5-2.2 bxvk=3428) Effective 11/28/2015: Units/Reference Range ChangeNew: 0.5-2.2 mmol/L Previous: 5 -18 mg/dLCBC W/PLT COUNT & AUTO [id number] 18:36:00 Test Item Value Reference Range Comments WHITE BLOOD CELL COUNT (BEAKER) (test xtut=749) 3.5 K/ L 4.0-10.0 RED BLOOD CELL COUNT (BEAKER) (test jdia=695) 2.95 M/ L 4.00-5.00 HEMOGLOBIN (BEAKER) (test vkok=799) 9.7 GM/DL 12.0-15.0 HEMATOCRIT (BEAKER) (test yqif=517) 28.5 % 36.0-45.0 MEAN CORPUSCULAR VOLUME (BEAKER) (test nqpe=831) 96.6 fL 82.0-99.0 MEAN CORPUSCULAR HEMOGLOBIN (BEAKER) (test 32.9 pg 27.0-33.0 pjyu=571) MEAN CORPUSCULAR HEMOGLOBIN CONC (BEAKER) (test 34.0 GM/DL 32.0-36.0 ftix=065) RED CELL DISTRIBUTION WIDTH (BEAKER) (test 18.5 % 10.3-14.2 gytp=383) PLATELET COUNT (BEAKER) (test nnro=896) 187 K/CU MM 150-430 MEAN PLATELET VOLUME (BEAKER) (test uxqd=459) 7.8 fL 6.5-10.5 NEUTROPHILS RELATIVE PERCENT (BEAKER) (test 84 % dolj=977) LYMPHOCYTES RELATIVE PERCENT (BEAKER) (test 10 % hucy=736) MONOCYTES RELATIVE PERCENT (BEAKER) (test 5 % oyqp=796) EOSINOPHILS RELATIVE PERCENT (BEAKER) (test 0 % kroe=530) BASOPHILS RELATIVE PERCENT (BEAKER) (test 0 % vaut=269) NEUTROPHILS ABSOLUTE COUNT (BEAKER) (test 2.90 K/ L 1.80-8.00 hhxe=677) LYMPHOCYTES ABSOLUTE COUNT (BEAKER) (test 0.40 K/ L 1.48-4.50 pweu=480) MONOCYTES ABSOLUTE COUNT (BEAKER) (test 0.20 K/ L 0.00-1.30 kczo=134) EOSINOPHILS ABSOLUTE COUNT (BEAKER) (test 0.00 K/ L 0.00-0.50 bjux=675) BASOPHILS ABSOLUTE COUNT (BEAKER) (test 0.00 K/ L 0.00-0.20 jajg=565) BLOOD [id number] 13:00:00 Test Item Value Reference Range Comments CULTURE (BEAKER) (test ittk=3823) No growth in 5 days BLOOD [id number] 10:00:00 Test Item Value Reference Range Comments CULTURE (BEAKER) (test cfii=0846) No growth in 5 days VANCOMYCIN LEVEL, [id number] 14:26:00 Test Item Value Reference Range Comments VANCOMYCIN TROUGH (BEAKER) (test nwkr=967) 9.8 ug/mL 10.0-20.0 VANCOMYCIN DOSING BY RX PER DR. AlarconTROUGH PRIOR TO 4th DOSE ON 10/22/17 AT13: 30URINE [id number] 08:16:00 Test Item Value Reference Range Comments CULTURE (BEAKER) (test qifi=6491) No growth (MANUAL DIFFERENTIAL)2017-10-22 07:06:00 Test Item Value Reference Range Comments NEUTROPHILS - REL (DIFF) (BEAKER) (test hnuj=9632) 69 % LYMPHOCYTES - REL (DIFF) (BEAKER) (test hiap=0330) 27 % MONOCYTES - REL (DIFF) (BEAKER) (test hwbh=3242) 4 % NEUTROPHILS - ABS (DIFF) (BEAKER) (test aclk=8689) 1.52 K/ L 1.80-8.00 LYMPHOCYTES - ABS (DIFF) (BEAKER) (test ixwv=8757) 0.59 K/ L 1.48-4.50 MONOCYTES - ABS (DIFF) (BEAKER) (test olhb=1805) 0.09 K/ L 0.00-1.30 TOTAL COUNTED (BEAKER) (test vynt=5480) 100 WBC MORPHOLOGY (BEAKER) (test raek=636) Normal PLT MORPHOLOGY (BEAKER) (test ggum=897) Normal RBC MORPHOLOGY (BEAKER) (test sebv=630) Normal COMPREHENSIVE METABOLIC [id number] 06:39:00 Test Item Value Reference Range Comments TOTAL PROTEIN (BEAKER) 6.8 gm/dL 6.0-8.5 (test nenv=332) ALBUMIN (BEAKER) (test 3.7 g/dL 3.5-5.0 nlkh=7136) ALKALINE PHOSPHATASE 111 U/L 30-115 (BEAKER) (test dtwl=970) BILIRUBIN TOTAL (BEAKER) 0.3 mg/dL 0.1-1.2 (test pyem=870) SODIUM (BEAKER) (test 138 meq/L 135-148 ytir=262) POTASSIUM (BEAKER) (test 3.9 meq/L 3.6-5.5 bidu=913) CHLORIDE (BEAKER) (test 102 meq/L 98-106 dfij=042) CO2 (BEAKER) (test 28 meq/L 20-29 jrzp=294) BLOOD UREA NITROGEN 9 mg/dL 10-26 (BEAKER) (test ttij=918) CREATININE (BEAKER) (test 0.70 mg/dL 0.50-1.20 mili=986) GLUCOSE RANDOM (BEAKER) 85 mg/dL 70-110 (test qevb=269) CALCIUM (BEAKER) (test 9.1 mg/dL 8.5-10.5 mske=895) AST (SGOT) (BEAKER) (test 141 U/L 5-40 ywde=059) ALT (SGPT) (BEAKER) (test 276 U/L 5-50 vczj=229) EGFR (BEAKER) (test 88 mL/min/1.73 sq m ESTIMATED GFR IS NOT aglh=5615) ACCURATE CREATININE CLEARANCE IN PREDICTING GLOMERULAR FILTRATION RATE. ESTIMATED GFR IS NOT APPLICABLE FOR DIALYSIS PATIENTS. CBC W/PLT COUNT & AUTO [id number] 06:22:00 Test Item Value Reference Range Comments WHITE BLOOD CELL COUNT (BEAKER) (test rahy=126) 2.2 K/ L 4.0-10.0 RED BLOOD CELL COUNT (BEAKER) (test ofds=082) 3.12 M/ L 4.00-5.00 HEMOGLOBIN (BEAKER) (test btxn=618) 9.7 GM/DL 12.0-15.0 HEMATOCRIT (BEAKER) (test slyu=488) 28.5 % 36.0-45.0 MEAN CORPUSCULAR VOLUME (BEAKER) (test fyue=116) 91.2 fL 82.0-99.0 MEAN CORPUSCULAR HEMOGLOBIN (BEAKER) (test 31.2 pg 27.0-33.0 ffos=036) MEAN CORPUSCULAR HEMOGLOBIN CONC (BEAKER) (test 34.2 GM/DL 32.0-36.0 nmor=005) RED CELL DISTRIBUTION WIDTH (BEAKER) (test 12.4 % 10.3-14.2 senm=014) PLATELET COUNT (BEAKER) (test ylum=414) 173 K/CU MM 150-430 MEAN PLATELET VOLUME (BEAKER) (test oerx=388) 7.6 fL 6.5-10.5 NUCLEATED RED BLOOD CELLS (BEAKER) (test 0 /100 WBC 0-0 mekg=741) HEPATIC FUNCTION [id number] 16:17:00 Test Item Value Reference Range Comments TOTAL PROTEIN (BEAKER) (test qejh=064) 6.3 gm/dL 6.0-8.5 ALBUMIN (BEAKER) (test yjze=2005) 3.5 g/dL 3.5-5.0 BILIRUBIN TOTAL (BEAKER) (test ztfq=340) 0.3 mg/dL 0.1-1.2 BILIRUBIN DIRECT (BEAKER) (test cnkc=665) 0.2 mg/dL 0.0-0.4 ALKALINE PHOSPHATASE (BEAKER) (test ocgx=570) 106 U/L 30-115 AST (SGOT) (BEAKER) (test llzn=317) 208 U/L 5-40 ALT (SGPT) (BEAKER) (test wlwy=366) 286 U/L 5-50 CBC W/PLT COUNT & AUTO [id number] 06:13:00 Test Item Value Reference Range Comments WHITE BLOOD CELL COUNT (BEAKER) (test dshe=386) 2.9 K/ L 4.0-10.0 RED BLOOD CELL COUNT (BEAKER) (test lfzx=236) 3.10 M/ L 4.00-5.00 HEMOGLOBIN (BEAKER) (test nvzm=801) 9.7 GM/DL 12.0-15.0 HEMATOCRIT (BEAKER) (test liui=490) 28.3 % 36.0-45.0 MEAN CORPUSCULAR VOLUME (BEAKER) (test fbcg=928) 91.2 fL 82.0-99.0 MEAN CORPUSCULAR HEMOGLOBIN (BEAKER) (test 31.2 pg 27.0-33.0 uzgm=087) MEAN CORPUSCULAR HEMOGLOBIN CONC (BEAKER) (test 34.3 GM/DL 32.0-36.0 uxbw=231) RED CELL DISTRIBUTION WIDTH (BEAKER) (test 12.3 % 10.3-14.2 gyfz=304) PLATELET COUNT (BEAKER) (test oomy=845) 178 K/CU MM 150-430 MEAN PLATELET VOLUME (BEAKER) (test wqhf=651) 7.5 fL 6.5-10.5 NUCLEATED RED BLOOD CELLS (BEAKER) (test 0 /100 WBC 0-0 dasm=339) (MANUAL DIFFERENTIAL)2017-10-21 06:13:00 Test Item Value Reference Range Comments NEUTROPHILS - REL (DIFF) (BEAKER) (test dvfs=7422) 76 % LYMPHOCYTES - REL (DIFF) (BEAKER) (test dxmu=3872) 16 % MONOCYTES - REL (DIFF) (BEAKER) (test sipw=6918) 5 % BANDS - REL (DIFF) (BEAKER) (test uovj=0551) 3 % 0-10 NEUTROPHILS - ABS (DIFF) (BEAKER) (test ojnu=4524) 2.20 K/ L 1.80-8.00 LYMPHOCYTES - ABS (DIFF) (BEAKER) (test lysk=1277) 0.46 K/ L 1.48-4.50 MONOCYTES - ABS (DIFF) (BEAKER) (test eeqd=8549) 0.15 K/ L 0.00-1.30 BANDS-ABS (DIFF) (BEAKER) (test fntj=5520) 0.1 K/ L 0.0-0.8 TOTAL COUNTED (BEAKER) (test klku=5812) 100 BANDS + SEGMENTED NEUTROPHILS (BEAKER) (test 2.29 wfqt=6541) WBC MORPHOLOGY (BEAKER) (test jsst=082) Normal PLT MORPHOLOGY (BEAKER) (test glnr=124) Normal RBC MORPHOLOGY (BEAKER) (test cdyb=263) Normal BASIC METABOLIC [id number] 05:25:00 Test Item Value Reference Range Comments SODIUM (BEAKER) (test 139 meq/L 135-148 zetr=511) POTASSIUM (BEAKER) (test 3.7 meq/L 3.6-5.5 uioq=961) CHLORIDE (BEAKER) (test 104 meq/L 98-106 oheh=691) CO2 (BEAKER) (test 27 meq/L 20-29 zbon=871) BLOOD UREA NITROGEN 12 mg/dL 10-26 (BEAKER) (test pgjm=203) CREATININE (BEAKER) (test 0.80 mg/dL 0.50-1.20 rxsn=213) GLUCOSE RANDOM (BEAKER) 77 mg/dL 70-110 (test ptrj=524) CALCIUM (BEAKER) (test 8.5 mg/dL 8.5-10.5 avrk=667) EGFR (BEAKER) (test 75 mL/min/1.73 sq m ESTIMATED GFR IS NOT nqnw=7356) ACCURATE CREATININE CLEARANCE IN PREDICTING GLOMERULAR FILTRATION RATE. ESTIMATED GFR IS NOT APPLICABLE FOR DIALYSIS PATIENTS. CT, BRAIN, WITHOUT [id number] 17:12:00Reason for exam:->headacheIs the patient ?->NoWhat is [...] or hydrocephalus. Acute sphenoid sinusitis. Signed: Hailey [place] Verified Date/Time: 10/20/2017 17:12:46 Reading Location: [facility] Radiology Reading Room Electronically signed by: HAILEY LUCAS M.D. on 05[facility]12 [id number] 09:17:00Reason for exam:->fever, constipation, abd discomfortIs the [...] MDReport Verified Date/Time: 10/20/2017 09:17:32 Reading Location: [facility] Ortho Consult Reading Room RAD, CHEST, 2 [id number] 08:54:00Reason for exam:->FEVERFINAL REPORT Chest two views [...] MDReport Verified Date/Time: 2017 08:54:43 Reading Location: [facility] Radiology Reading Room HEPATIC FUNCTION [id number] 08:27:00 Test Item Value Reference Range Comments TOTAL PROTEIN (BEAKER) (test xifh=283) 8.1 gm/dL 6.0-8.5 ALBUMIN (BEAKER) (test iicp=5775) 4.4 g/dL 3.5-5.0 BILIRUBIN TOTAL (BEAKER) (test wdjb=583) 0.4 mg/dL 0.1-1.2 BILIRUBIN DIRECT (BEAKER) (test hdon=347) 0.2 mg/dL 0.0-0.4 ALKALINE PHOSPHATASE (BEAKER) (test kwlh=001) 128 U/L 30-115 AST (SGOT) (BEAKER) (test iqpt=329) 88 U/L 5-40 ALT (SGPT) (BEAKER) (test pwrd=329) 281 U/L 5-50 [id number] 08:24:00 Test Item Value Reference Range Comments LIPASE (BEAKER) (test ptmd=760) 42 U/L 6-51 BASIC METABOLIC [id number] 08:21:00 Test Item Value Reference Range Comments SODIUM (BEAKER) (test 133 meq/L 135-148 znhg=135) POTASSIUM (BEAKER) (test 4.1 meq/L 3.6-5.5 pcfy=318) CHLORIDE (BEAKER) (test 97 meq/L 98-106 kfxe=412) CO2 (BEAKER) (test 26 meq/L 20-29 aqzr=667) BLOOD UREA NITROGEN 17 mg/dL 10-26 (BEAKER) (test pugu=381) CREATININE (BEAKER) (test 1.00 mg/dL 0.50-1.20 pyeh=547) GLUCOSE RANDOM (BEAKER) 99 mg/dL 70-110 (test bnim=843) CALCIUM (BEAKER) (test 9.3 mg/dL 8.5-10.5 pajf=093) EGFR (BEAKER) (test 58 mL/min/1.73 sq m ESTIMATED GFR IS NOT jvqk=3844) ACCURATE CREATININE CLEARANCE IN PREDICTING GLOMERULAR FILTRATION RATE. ESTIMATED GFR IS NOT APPLICABLE FOR DIALYSIS PATIENTS. LACTIC ACID, VENOUS, WHOLE [id number] 08:15:00 Test Item Value Reference Range Comments LACTATE BLOOD VENOUS (2) (BEAKER) (test 1.1 mmol/L 0.5-2.2 aefy=6389) Effective 11/28/2015: Units/Reference Range ChangeNew: 0.5-2.2 mmol/L Previous: 5 -18 mg/dLCBC W/PLT COUNT & AUTO [id number] 08:11:00 Test Item Value Reference Range Comments WHITE BLOOD CELL COUNT (BEAKER) (test vbfb=317) 4.7 K/ L 4.0-10.0 RED BLOOD CELL COUNT (BEAKER) (test qzcv=231) 3.71 M/ L 4.00-5.00 HEMOGLOBIN (BEAKER) (test nyca=847) 11.5 GM/DL 12.0-15.0 HEMATOCRIT (BEAKER) (test cxeo=932) 33.7 % 36.0-45.0 MEAN CORPUSCULAR VOLUME (BEAKER) (test aolt=258) 91.0 fL 82.0-99.0 MEAN CORPUSCULAR HEMOGLOBIN (BEAKER) (test 31.1 pg 27.0-33.0 ktqa=732) MEAN CORPUSCULAR HEMOGLOBIN CONC (BEAKER) (test 34.2 GM/DL 32.0-36.0 bddr=947) RED CELL DISTRIBUTION WIDTH (BEAKER) (test 12.3 % 10.3-14.2 lenk=370) PLATELET COUNT (BEAKER) (test lfwf=535) 245 K/CU MM 150-430 MEAN PLATELET VOLUME (BEAKER) (test yvwo=094) 7.7 fL 6.5-10.5 NUCLEATED RED BLOOD CELLS (BEAKER) (test 0 /100 WBC 0-0 opcd=569) NEUTROPHILS RELATIVE PERCENT (BEAKER) (test 93 % lqjg=943) LYMPHOCYTES RELATIVE PERCENT (BEAKER) (test 2 % uzos=394) MONOCYTES RELATIVE PERCENT (BEAKER) (test 5 % lygj=300) EOSINOPHILS RELATIVE PERCENT (BEAKER) (test 0 % nipp=106) BASOPHILS RELATIVE PERCENT (BEAKER) (test 0 % izmx=196) NEUTROPHILS ABSOLUTE COUNT (BEAKER) (test 4.40 K/ L 1.80-8.00 agls=281) LYMPHOCYTES ABSOLUTE COUNT (BEAKER) (test 0.10 K/ L 1.48-4.50 wqox=744) MONOCYTES ABSOLUTE COUNT (BEAKER) (test 0.20 K/ L 0.00-1.30 pxpy=614) EOSINOPHILS ABSOLUTE COUNT (BEAKER) (test 0.00 K/ L 0.00-0.50 wbbu=972) BASOPHILS ABSOLUTE COUNT (BEAKER) (test 0.00 K/ L 0.00-0.20 cjlw=100) RAPID INFLUENZA A&B [id number] 07:58:00 Test Item Value Reference Range Comments RAPID INFLUENZA A AG (BEAKER) (test Negative Negative, Inconclusive ipco=1497) RAPID INFLUENZA B AG (BEAKER) (test Negative Negative, Inconclusive jwnk=4320) URINALYSIS W/ [id number] 07:55:00 Test Item Value Reference Range Comments COLOR (BEAKER) (test wctr=836) Yellow CLARITY (BEAKER) (test yqzl=527) Clear SPECIFIC GRAVITY UA (BEAKER) (test ndyw=906) 1.015 1.001-1.035 PH UA (BEAKER) (test bqro=766) 6.0 5.0-8.0 PROTEIN UA (BEAKER) (test rykg=013) Negative Negative GLUCOSE UA (BEAKER) (test vkgz=162) Negative Negative KETONES UA (BEAKER) (test rofv=719) Negative Negative BILIRUBIN UA (BEAKER) (test qelq=577) Negative Negative BLOOD UA (BEAKER) (test qngg=339) Trace Negative NITRITE UA (BEAKER) (test qrel=017) Negative Negative LEUKOCYTE ESTERASE UA (BEAKER) (test andp=436) Negative Negative UROBILINOGEN UA (BEAKER) (test plvw=922) 0.2 mg/dL 0.2-1.0 BACTERIA (BEAKER) (test rzpv=180) Few MUCUS (BEAKER) (test voqn=5343) Few RBC UA-MANUAL (BEAKER) (test xryu=4211) 5-10 /HPF WBC UA-MANUAL (BEAKER) (test jhzl=2874) 5-10 /HPF SQUAMOUS EPITHELIAL MANUAL (BEAKER) (test <5 /HPF jnfv=1436) SOURCE(BEAKER) (test zzlu=2876)
[2018-05-03 02:29] LABS: Absolute Lymphocytes (CBC) 0.6 K/uL (0.7-4.9); Absolute Monocytes 0.4 K/uL (0.1-1.3); Basophils % 0.5 % (0-1.3); Eosinophils % 0.1 % (0-4.4); Lymphocytes % 8.8 % (15.3-44.8); MCH 32.8 pg (27.0-35.0); MCV 97.1 fL (80-100); MPV 9.4 fL (7.6-11.3); Monocytes % 5.8 % (3.3-12.3); RBC Red Blood Cell Count 3.09 M/uL (3.86-4.86)
[2018-05-03] MEDS ORDERED: ALBUTEROL 2.5 MG/3 ML NEB SOL ONE (02:42)
[2018-05-03] MEDS ORDERED: IPRATROPIUM BROM 0.5MG/2.5ML ONE (02:42)
[2018-05-03] MEDS ORDERED: ONDANSETRON 4 MG/2 ML VIAL ONE (02:43)
[2018-05-03 02:45] LABS: Protime INR 1.24
[2018-05-03 03:16] LABS: ALT/SGPT 84 U/L (12-78); AST/SGOT 121 U/L (15-37); Albumin 3.6 g/dL (3.4-5.0); Alkaline Phosphatase 108 U/L (45-117); BUN Blood Urea Nitrogen 59 mg/dL (7-18); Bicarbonate 23 mmol/L (21-32); Bilirubin Direct 0.3 mg/dL (0-0.2); Bilirubin Total 0.8 mg/dL (0.2-1.0); Glucose Level 115 mg/dL (74-106); NT PRO-BNP > 175000 pg/mL (<125); Protein, Total 8.5 g/dL (6.4-8.2); Sodium Level 127 mmol/L (136-145); Troponin (Emerg Dept Use Only) 0.17 ng/mL (0.0-0.045)
[2018-05-03 03:17] LABS: Potassium 5.7 mmol/L (3.5-5.1)
--- NOTE | 2018-05-03 04:09 | ER ---
Nurse's Notes [facility] Name: Renate Gold Age: 53 yrs Sex: Female : 1965 Arrival Date: 05/03/2018 Time: :29 Bed 16 Private MD: Diagnosis: Hyperkalemia;Chronic kidney disease, unspecified;Pulmonary edema Presentation: 05/03 01:45 Presenting complaint: Patient states: I have been short of breath and been having jb4 weakness and nausea since yesterday. Transition of care: patient was not received from another setting of care. Onset of symptoms was May 01, 2018. Risk Assessment: Do you want to hurt yourself or someone else? Patient reports no desire to harm self or others. Initial Sepsis Screen: Does the patient meet any 2 criteria? RR > 20 per min. Yes Does the patient have a suspected source of infection? No. Patient's initial sepsis screen is negative. Care prior to arrival: None. 01:45 Method Of Arrival: Ambulatory jb4 01:45 Acuity: RICH 3 jb4 Triage Assessment: 01:52 General: Appears in no apparent distress. uncomfortable, Behavior is cooperative, jb4 anxious. Pain: Complains of pain in back Pain currently is 7 out of 10 on a pain scale. EENT: No signs and/or symptoms were reported regarding the EENT system. Neuro: Level of Consciousness is awake, alert, obeys commands, Oriented to person, place, time, situation. Cardiovascular: Heart tones S1 S2 present Patient's skin is warm and dry. Respiratory: Reports shortness of breath at rest on exertion Airway is patent Respiratory effort is even, labored, Respiratory pattern is regular, symmetrical, Breath sounds are clear bilaterally. Onset: The symptoms/episode began/occurred yesterday, the patient has mild shortness of breath. GI: Abdomen is flat, non-distended, Bowel sounds present X 4 quads. Abd is soft X 4 quads Abdomen is tender to palpation X 4 quads. Reports nausea. : No signs and/or symptoms were reported regarding the genitourinary system. Derm: Skin is intact, Skin is dry, Skin is pale, Skin temperature is warm. Musculoskeletal: Circulation, motion, and sensation intact. Historical: - Allergies: 01:52 Sulfa (Sulfonamide Antibiotics); jb4 01:52 Prochlorperazine Maleate; jb4 01:52 Compazine; jb4 01:52 Ciprofloxacin; jb4 01:52 Ofloxacin; jb4 - Home Meds: 01:52 tramadol 50 mg Oral tab 2 tabs twice a day [Active]; sevelamer carbonate 800 mg Oral jb4 tab 1 tab 3 times per day [Active]; Nephro-Uriel 0.8 mg Oral tab daily [Active]; carvedilol 12.5 mg Oral tab 1 tab every 12 hours [Active]; - PMHx: 01:52 Pneumonia; ESRD; CHF; COPD; Cancer to breast, lungs, bone and spine; Renal Disease; jb4 breast cancer-metastasized; - PSHx: 01:52 Hysterectomy; ; Exploratory lap; Cholecystectomy; right breast sx; jb4 Appendectomy; dialysis port to right chest wall.; - Immunization history:: Adult Immunizations up to date. - Social history:: Smoking status: Patient/guardian denies using tobacco, Patient/guardian denies using alcohol. - Ebola Screening: : No symptoms or risks identified at this time. Screenin:57 Abuse screen: Denies threats or abuse. Nutritional screening: No deficits noted. jb4 Tuberculosis screening: No symptoms or risk factors identified. Fall Risk IV access (20 points). Gait- Weak (10 pts.). Total Carter Fall Scale indicates Low Risk Score (25-44 pts). Fall prevention measures have been instituted. Side Rails Up X 2 Placed close to Nursing Station Frequent Obs/Assesments occuring As available Patient and Family Educated on Fall Prevention Program and strategies. Assessment: 01:57 General: see triage assessment.. Cardiovascular: Rhythm is sinus rhythm. jb4 02:42 Reassessment: Patient appears in no apparent distress at this time. Patient and/or jb4 family updated on plan of care and expected duration. Pain level reassessed. Patient is alert, oriented x 3, equal unlabored respirations, skin warm/dry/pink. Pt complaining of SOB, provider notified see [facility] for Orders. 03:32 Reassessment: Patient appears in no apparent distress at this time. No changes from jb4 previously documented assessment. Patient and/or family updated on plan of care and expected duration. Pain level reassessed. Patient is alert, oriented x 3, equal unlabored respirations, skin warm/dry/pink. Vital Signs: 01:52 BP 149 / 104; Pulse 96; Resp 24; Temp 98.0; Pulse Ox 95% on 3 lpm NC; Weight 40.37 kg jb4 (R); Height 5 ft. 3 in. (160.02 cm); Pain 7/10; 02:42 BP 136 / 98; Pulse 94; Resp 17; Pulse Ox 100% on 100% Nebulizer Mask; jb4 03:15 BP 139 / 99; Pulse 95; Resp 20; Pulse Ox 100% on 3 lpm NC; jb4 04:15 BP 132 / 97; Pulse 92; Resp 20; Pulse Ox 100% on 3 lpm NC; jb4 05:30 BP 162 / 124; Pulse 98; Resp 20; Pulse Ox 100% on 3 lpm NC; jb4 01:52 Body Mass Index 15.77 (40.37 kg, 160.02 cm) jb4 05:30 Provider notified of high B/P jb4 ED Course: 01:05 Initial lab(s) drawn, by me, sent to lab. Inserted saline lock: 20 gauge in left bb antecubital area, using aseptic technique. Blood collected. 01:29 Patient arrived in ED. do 01:45 Satya Hutson, RN is Primary Nurse. jb4 01:46 Damian Steinberg MD is Attending Physician. tw4 01:47 Triage completed. jb4 01:52 Arm band placed on right wrist. jb4 01:57 Patient has correct armband on for positive identification. Bed in low position. Call jb4 light in reach. Side rails up X 1. hospital monitor on. Pulse ox on. NIBP on. 02:00 X-ray completed. Patient tolerated procedure well. kw 02:03 XRAY Chest (1 view) In Process Unspecified. EDMS 03:18 Notified ED physician of a critical lab result(s). 5.7K. ak1 04:07 Amy Constantino MD is Hospitalizing Provider. tw4 06:20 No provider procedures requiring assistance completed. jb4 06:20 Patient admitted, IV remains in place. jb4 Administered Medications: 02:37 Drug: Zofran 4 mg Route: IVP; Site: left antecubital; ak1 03:30 Follow up: Response: No adverse reaction; Nausea is decreased jb4 02:41 Drug: Albuterol - atroVENT (3:1) (2.5 mg - 0.5 mg) 3 ml Route: Nebulizer; jb4 03:29 Follow up: Response: No adverse reaction jb4 05:13 Drug: Insulin Regular Human 10 units {Co-Signature: ak1 (Lissy Martínez RN).} Route: IVP; jb4 Site: left upper arm; 06:27 Follow up: Response: No adverse reaction jb4 05:13 Drug: D50W 50 ml Route: IVP; Site: left upper arm; jb4 06:27 Follow up: Response: No adverse reaction jb4 05:13 Drug: Sodium Bicarbonate 1 amp Route: IVP; Site: left upper arm; jb4 06:27 Follow up: Response: No adverse reaction jb4 05:33 Drug: hydrALAZINE 10 mg Route: IV; Rate: bolus; Site: left upper arm; jb4 05:33 Follow up: Response: No adverse reaction; IV Status: Completed infusion jb4 Outcome: 04:08 Decision to Hospitalize by Provider. tw4 06:20 Admitted to Tele accompanied by nurse, accompanied by tech, via stretcher, room 404, jb4 Report called to DENVER Martinez 06:20 Condition: stable 06:20 Instructed on the need for admit, Demonstrated understanding of follow-up care. 06:24 Patient left the ED. jb4 Signatures: Dispatcher [employer] EDStephanie Bowman RN RN bb Whitley, Kimberlee kw Krenek, Amber, RN RN ak1 Chelita Knapp James, RN RN jb4 Damian Steinberg MD MD [facility] Lissy Martínez RN ak1 Corrections: (The following items were deleted from the chart) 03:29 02:42 BP 136 / 98; Pulse 94bpm; Resp 17bpm; Pulse Ox 100% 02 7% Nebulizer Mask; jb4 jb4
--- NOTE | 2018-05-03 04:09 | EDPHYS ---
Physician Documentation [facility] Name: Renate Gold Age: 53 yrs Sex: Female : 1965 Arrival Date: 05/03/2018 Time: :29 Bed 16 Private MD: ED Physician Damian Steinberg HPI: 05/03 04:08 This 53 yrs old Female presents to ER via Ambulatory with complaints of tw4 Breathing Difficulty, Chest Pain. 04:08 The patient has shortness of breath at rest. tw4 04:08 Onset: The symptoms/episode began/occurred yesterday. Duration: The symptoms are tw4 continuous, and are unchanged since they started. The patient's shortness of breath has no apparent modifying factors. Associated signs and symptoms: The patient has no apparent associated signs or symptoms. Severity of symptoms: At their worst the symptoms were moderate in the emergency department the symptoms are unchanged. The patient has not experienced similar symptoms in the past. Historical: - Allergies: 01:52 Sulfa (Sulfonamide Antibiotics); jb4 01:52 Prochlorperazine Maleate; jb4 01:52 Compazine; jb4 01:52 Ciprofloxacin; jb4 01:52 Ofloxacin; jb4 - Home Meds: 01:52 tramadol 50 mg Oral tab 2 tabs twice a day [Active]; sevelamer carbonate 800 mg Oral jb4 tab 1 tab 3 times per day [Active]; Nephro-Uriel 0.8 mg Oral tab daily [Active]; carvedilol 12.5 mg Oral tab 1 tab every 12 hours [Active]; - PMHx: 01:52 Pneumonia; ESRD; CHF; COPD; Cancer to breast, lungs, bone and spine; Renal Disease; jb4 breast cancer-metastasized; - PSHx: 01:52 Hysterectomy; ; Exploratory lap; Cholecystectomy; right breast sx; jb4 Appendectomy; dialysis port to right chest wall.; - Immunization history:: Adult Immunizations up to date. - Social history:: Smoking status: Patient/guardian denies using tobacco, Patient/guardian denies using alcohol. - Ebola Screening: : No symptoms or risks identified at this time. ROS: 04:08 Constitutional: Negative for fever, chills, and weight loss, Eyes: Negative for injury, tw4 pain, redness, and discharge, Cardiovascular: Negative for chest pain, palpitations, and edema. 04:08 Abdomen/GI: Negative for abdominal pain, nausea, vomiting, diarrhea, and constipation, Back: Negative for injury and pain, MS/Extremity: Negative for injury and deformity, Neuro: Negative for headache, weakness, numbness, tingling, and seizure. 04:08 Respiratory: Positive for cough, shortness of breath, Negative for dyspnea on exertion, hemoptysis, orthopnea. Exam: 04:08 Constitutional: This is a well developed, well nourished patient who is awake, alert, tw4 and in no acute distress. Head/Face: Normocephalic, atraumatic. Chest/axilla: Normal chest wall appearance and motion. Nontender with no deformity. No lesions are appreciated. Cardiovascular: Regular rate and rhythm with a normal S1 and S2. No gallops, murmurs, or rubs. Normal PMI, no JVD. No pulse deficits. 04:08 MS/ Extremity: Pulses equal, no cyanosis. Neurovascular intact. Full, normal range of motion. Neuro: Awake and alert, GCS 15, oriented to person, place, time, and situation. Cranial nerves II-XII grossly intact. Motor strength 5/5 in all extremities. Sensory grossly intact. Cerebellar exam normal. Normal gait. 04:08 Respiratory: mild respiratory distress is noted, Respirations: Vital Signs: 01:52 BP 149 / 104; Pulse 96; Resp 24; Temp 98.0; Pulse Ox 95% on 3 lpm NC; Weight 40.37 kg jb4 (R); Height 5 ft. 3 in. (160.02 cm); Pain 7/10; 02:42 BP 136 / 98; Pulse 94; Resp 17; Pulse Ox 100% on 100% Nebulizer Mask; jb4 03:15 BP 139 / 99; Pulse 95; Resp 20; Pulse Ox 100% on 3 lpm NC; jb4 04:15 BP 132 / 97; Pulse 92; Resp 20; Pulse Ox 100% on 3 lpm NC; jb4 05:30 BP 162 / 124; Pulse 98; Resp 20; Pulse Ox 100% on 3 lpm NC; jb4 01:52 Body Mass Index 15.77 (40.37 kg, 160.02 cm) jb4 05:30 Provider notified of high B/P jb4 MDM: 01:46 Patient medically screened. tw4 04:08 Differential diagnosis: Anemia Anxiety Reaction CHF exacerbation, pneumonia, pulmonary tw4 edema, reactive airway disease, Unstable Angina. Data reviewed: vital signs, nurses notes. Data interpreted: Pulse oximetry: Interpretation: normal. Counseling: I had a detailed discussion with the patient and/or guardian regarding: the historical points, exam findings, and any diagnostic results supporting the discharge/admit diagnosis. Physician consultation: Amy Constantino MD regarding admission, need to evaluate the patient as soon as possible, and will see patient in ED. 05/03 01:45 Order name: Basic Metabolic Panel; Complete Time: 04:02 05/03 04:02 Interpretation: NA 127; GLUC 115; CRE 4.50; BUN 59; GFR 10; CA 8.2; K 5.7; CL 90. 05/03 01:45 Order name: CBC with Diff; Complete Time: 03:00 05/03 03:01 Interpretation: PLT 158; HGB 10.1; HCT 30.0; RBC 3.09; WBC 7.1; LYM% 8.8; JULIANNA% 84.8; tw4 RDW 19.6; LYMA 0.6. 05/03 01:45 Order name: LFT's; Complete Time: 04:02 05/03 01:45 Order name: Magnesium; Complete Time: 04:02 05/03 01:45 Order name: NT PRO-BNP; Complete Time: 04:02 05/03 01:45 Order name: PT-INR; Complete Time: 03:00 05/03 03:01 Interpretation: Normal except: PT 14.7. 05/03 01:45 Order name: Troponin (emerg Dept Use Only); Complete Time: 04:02 05/03 01:45 Order name: XRAY Chest (1 view) 05/03 01:45 Order name: EKG; Complete Time: 01:46 05/03 01:45 Order name: Cardiac monitoring; Complete Time: 02:20 05/03 01:45 Order name: EKG - Nurse/Tech; Complete Time: 02:20 05/03 01:45 Order name: IV Saline Lock; Complete Time: 02:20 05/03 01:45 Order name: Labs collected and sent; Complete Time: 02:22 tw4 05/03 01:45 Order name: O2 Per Protocol; Complete Time: 02:20 tw4 05/03 01:45 Order name: O2 Sat Monitoring; Complete Time: 02:17 tw4 Administered Medications: 02:37 Drug: Zofran 4 mg Route: IVP; Site: left antecubital; ak1 03:30 Follow up: Response: No adverse reaction; Nausea is decreased jb4 02:41 Drug: Albuterol - atroVENT (3:1) (2.5 mg - 0.5 mg) 3 ml Route: Nebulizer; jb4 03:29 Follow up: Response: No adverse reaction jb4 05:13 Drug: Insulin Regular Human 10 units {Co-Signature: ak1 (Lissy Martínez RN).} Route: IVP; jb4 Site: left upper arm; 06:27 Follow up: Response: No adverse reaction jb4 05:13 Drug: D50W 50 ml Route: IVP; Site: left upper arm; jb4 06:27 Follow up: Response: No adverse reaction jb4 05:13 Drug: Sodium Bicarbonate 1 amp Route: IVP; Site: left upper arm; jb4 06:27 Follow up: Response: No adverse reaction jb4 05:33 Drug: hydrALAZINE 10 mg Route: IV; Rate: bolus; Site: left upper arm; jb4 05:33 Follow up: Response: No adverse reaction; IV Status: Completed infusion jb4 Disposition: 05/03/18 04:08 Hospitalization ordered by Amy Constantino for Inpatient Admission. Preliminary diagnosis are Hyperkalemia, Chronic kidney disease, unspecified, Pulmonary edema. - Bed requested for Telemetry/MedSurg (Inpatient). - Status is Inpatient Admission. jb4 - Condition is Stable. - Problem is new. - Symptoms have improved. UTI on Admission? No Signatures: Dispatcher [employer] EDShanel Burton Amber, RN RN ak1 Satya Hutson RN RN jb4 Damian Steinberg MD MD tw4 Lissy Martínez RN ak1 Corrections: (The following items were deleted from the chart) 04:02 04:02 NA 127; GLUC 115; CRE 4.50; BUN 59; GFR 10; CA 8.2. tw4 tw4 05:33 04:08 Hospitalization Ordered by Amy Constantino MD for Inpatient Admission. Preliminary cc diagnosis is Hyperkalemia; Chronic kidney disease, unspecified; Pulmonary edema. Bed requested for Telemetry/MedSurg (Inpatient). Status is Inpatient Admission. Condition is Stable. Problem is new. Symptoms have improved. UTI on Admission? No. tw4 06:24 05:33 05/03/2018 04:08 Hospitalization Ordered by Amy Constantino MD for Inpatient jb4 Admission. Preliminary diagnosis is Hyperkalemia; Chronic kidney disease, unspecified; Pulmonary edema. Bed requested for Telemetry/MedSurg (Inpatient). Status is Inpatient Admission. Condition is Stable. Problem is new. Symptoms have improved. UTI on Admission? No. cc
[2018-05-03] MEDS ORDERED: INSULIN -REGULAR HUMAN 50 UNIT/0.5 ML ML ONE (04:25)
[2018-05-03] MEDS ORDERED: D50W 25 GM/50 ML SYRINGE IV ONE (04:25)
--- NOTE | 2018-05-03 04:53 | P.HP ---
Certification for Inpatient Patient admitted to: Inpatient With expected LOS: >2 Midnights Practitioner: I am a practitioner with admitting privileges, knowledge of patient current condition, hospital course, and medical plan of care. Services: Services provided to patient in accordance with Admission requirements found in Title 42 Section 412.3 of the Code of Federal Regulations Patient History Date of Service: 05/03/18 Reason for admission: Dyspnea, CHF exacerbation History of Present Illness: Ms Gold is a 53-year-old woman with history of hypertension, COPD, chronic systolic CHF last echocardiogram shows global hypokinesia with an EF of 14%, end -stage renal disease on hemodialysis, who start about 2 days ago with progressive weakness and shortness of breath. She denied any cough, fever or chills. She denied also any chest pain. Last time she had dialysis was 3 days ago and she supposed to dialyze today. Lab work remarkable for normal WBC count , hyperkalemia 5.7, hyponatremia, abnormal liver enzymes, elevated troponin I and BNP. Chest x-ray remarkable for venous congested Allergies ciprofloxacin HCl [From Cipro] Allergy (Unknown, Verified 04/02/18 13:39) Unknown Sulfa (Sulfonamide Antibiotics) Allergy (Unknown, Verified 04/02/18 13:39) Unknown Home medications list reviewed: Yes Home Medications: Albuterol Sulfate [Ventolin Hfa] 1 puff IH Q6HP PRN 04/03/18 Carvedilol 12.5 mg PO BID 04/03/18 Folic Acid/Vitamin B Comp W-C [Nephro-Uriel Tablet] 0.8 mg PO DAILY 04/03/18 Sevelamer Carbonate 800 mg PO TID 04/03/18 Docusate [Colace Cap*] 100 mg PO BID #60 cap 04/05/18 guaiFENesin [Robitussin 100MG/5ML*] 5 ml PO QID PRN #200 ml 04/05/18 - Past Medical/Surgical History Diabetic: No -: right breast sx removal of lump, and lymph nodes -: breast ca-metastasized, radiation, chemo stopped 03/2018 complications -: renal disease -: ESRD -: COPD -: hysterectomy -: -: expl lap, rk -: port a cath left chest wall -: gabbi right chest wall - Family History Mother -: Diabetes, Cancer Notes: breast ca Father -: Heart disease, Hypertension - Social History Smoking Status: Former smoker Alcohol use: No CD- Drugs: No Caffeine use: No Place of Residence: Home Review of Systems 10-point ROS is otherwise unremarkable Physical Examination - Physical Exam General: Alert, In no apparent distress HEENT: Atraumatic, PERRLA, Mucous membr. moist/pink, EOMI, Sclerae nonicteric Neck: Supple, 2+ carotid pulse no bruit, No LAD, Without JVD or thyroid abnormality Respiratory: Normal air movement, Crackles/rales (Bibasilar rales), Rhonchi/ gurgles Cardiovascular: Regular rate/rhythm, Normal S1 S2 Gastrointestinal: Normal bowel sounds, No tenderness Musculoskeletal: No tenderness Integumentary: No rashes Neurological: Normal speech, Normal strength at 5/5 x4 extr, Normal tone, Normal affect Lymphatics: No axilla or inguinal lymphadenopathy - Studies Laboratory Data (last 24 hrs) 05/03/18 01:05: PT 14.7 H, INR 1.24 05/03/18 01:05: WBC 7.1 D, Hgb 10.1 L, Hct 30.0 L, Plt Count 158 D 05/03/18 01:05: Sodium 127 L, Potassium 5.7 H*, BUN 59 H D, Creatinine 4.50 H D , Glucose 115 H, Magnesium 2.0, Total Bilirubin 0.8, AST 121 H, ALT 84 H, Alkaline Phosphatase 108 Assessment and Plan - Problems (Diagnosis) (1) Acute on chronic systolic CHF (congestive heart failure) Current Visit: Yes Status: Acute (2) Hyperkalemia Current Visit: Yes Status: Acute (3) Breast cancer Onset Date: 04/05/18 Current Visit: No Status: Chronic Qualifiers: Breast location: unspecified site of breast Estrogen receptor status: positive Patient sex: female Laterality: left Qualified Code(s): C50.912 - Malignant neoplasm of unspecified site of left female breast; Z17.0 - Estrogen receptor positive status [ER+] (4) ESRD (end stage renal disease) Onset Date: 04/05/18 Current Visit: No Status: Chronic - Plan The patient will be admitted to the hospital due to acute on chronic systolic CHF, and hyperkalemia. There is no obvious sign of acute infection leading with her symptoms. Will consult Nephrology team for hemodialysis orders today. She has been treated in ER for hyperkalemia, will repeat potassium level in the morning for further treatment if is needed. - Advance Directives Does patient have a Living Will: No Does patient have a Durable POA for Healthcare: No - Code Status/Comfort Care Code Status Assessed: Yes Code Status: Full Code
[2018-05-03] MEDS ORDERED: HYDRALAZINE HCL 10 MG TABLET ONE (05:33)
[2018-05-03] MEDS ORDERED: HYDRALAZINE HCL 20 MG/ML VIAL ONE (05:34)
[2018-05-03] MEDS ORDERED: IPRATROPIUM BROM 0.5MG/2.5ML NEB PRN (06:08)
[2018-05-03] MEDS ORDERED: ONDANSETRON 4 MG/2 ML VIAL IV PRN (06:08)
[2018-05-03] MEDS ORDERED: ALBUTEROL 2.5 MG/3 ML NEB SOL NEB PRN (06:08)
--- NOTE | 2018-05-03 07:26 | EKG ---
Test Date: 2018-05-03 Test Time: 01:41:49 Station Chief: KARLI MEASUREMENT RESULTS: Intervals: Rate: 96 UT: 122 QRSD: 76 QT: 390 QTc: 492 [place]: P: 65 UT: 122 QRS: 54 T: 78 INTERPRETIVE STATEMENTS: Normal sinus rhythm Possible Left atrial enlargement Prolonged QT Abnormal ECG Compared to ECG 04/22/2018 05:42:21 Prolonged QT interval now present Sinus tachycardia no longer present Electronically Signed On 05-03-18 07:26:09 CDT by Yunior Gibbons
[2018-05-03] MEDS ORDERED: ALPRAZOLAM 0.25 MG TABLET PO PRN (07:43)
--- NOTE | 2018-05-03 08:44 | RAD REPORT ---
EXAM DESCRIPTION: RAD - Chest Single View - 05/03/2018 2:03 am CLINICAL HISTORY: DYSPNEA Chest pain. COMPARISON: Chest Single View dated 04/23/2018; Chest Single View dated 04/22/2018; Chest Single View dated 04/10/2018; Chest Single View dated 04/08/2018 FINDINGS: Portable technique limits examination quality. Mild interstitial pulmonary edema is present with small bilateral pleural effusions. The heart is mod erately enlarged in size. No displaced fractures.Right-sided venous catheter has its tip in the SVC. Left-sided port catheter has tip in the SVC. IMPRESSION: Mild to moderate CHF versus volume overload pattern.
[2018-05-03] MEDS ORDERED: EPOETIN ALFA 10,000 UNIT/ML VIAL IV SCH (09:30)
[2018-05-03] MEDS ORDERED: NA CHLORIDE 0.9% 1,000 ML IV PRN (09:30)
[2018-05-03] MEDS ORDERED: DOCUSATE NA 100 MG CAP PO PRN (09:46)
[2018-05-03] MEDS ORDERED: TRAMADOL HCL 50 MG TAB PO PRN (09:46)
--- NOTE | 2018-05-03 09:55 | P.PN ---
Subjective Date of Service: 05/03/18 Primary Care Provider: Dr. Hardy([facility]); Nephrology-Dr. Wei; Oncology-Dr. Carmona Chief Complaint: Dyspnea, CHF exacerbation Subjective: Other (Patient still with some shortness of breath. Patient to receive dialysis.) Physical Examination - Vital Signs Temperature: 98.1 F Blood Pressure: 129/96 Pulse: 93 Respirations: 28 Pulse Ox (%): 93 - Physical Exam General: Alert, In no apparent distress, Cooperative, Mild distress HEENT: Atraumatic Neck: Supple Respiratory: Crackles/rales (Bilateral), Expiratory wheezes (Bilateral) Cardiovascular: Normal pulses, Regular rate/rhythm Gastrointestinal: Normal bowel sounds, Soft and benign, Non-distended, No tenderness, No masses, No rebound, No guarding Musculoskeletal: No erythema, No tenderness, No warmth Integumentary: No warmth, No cyanosis Neurological: Normal speech, Normal strength at 5/5 x4 extr, Normal tone, Normal affect - Studies Laboratory Data (last 24 hrs) 05/03/18 01:05: PT 14.7 H, INR 1.24 05/03/18 01:05: WBC 7.1 D, Hgb 10.1 L, Hct 30.0 L, Plt Count 158 D 05/03/18 01:05: Sodium 127 L, Potassium 5.7 H*, BUN 59 H D, Creatinine 4.50 H D , Glucose 115 H, Magnesium 2.0, Total Bilirubin 0.8, AST 121 H, ALT 84 H, Alkaline Phosphatase 108 Medications List Reviewed: Yes Assessment & Plan Discharge Plan: Transfer (For defibrillator placement) Plan to discharge in: 24 Hours Physician Review Additional Text: Impression: Shortness of breath secondary to acute on chronic severe systolic congestive heart failure with ejection fraction 15% CAD requiring defibrillator End-stage renal disease on dialysis Stage IV breast cancer COPD Hyperkalemia secondary to end-stage renal disease Anemia likely of chronic disease related to end-stage renal disease and stage IV breast cancer Elevated liver function likely liver congestion from congestive heart failure Plan: Shortness of breath secondary to acute on chronic severe systolic congestive heart failure with ejection fraction 15%: The patient will get arm urgent dialysis due to shortness of breath. Patient received dialysis every Mondays, Wednesdays and Fridays. Patient has other underlying illnesses including COPD, CAD and stage IV breast cancer. Case discussed with cardiology. Patient requires defibrillator placement. Will transfer to [place] for a defibrillator placement. CAD requiring defibrillator: Patient requires transfer to [place] for defibrillator. Will initiate transfer process. End-stage renal disease on dialysis: Patient will receive emergent dialysis. Case discussed with nephrology. Nephrology agrees with transfer need. Stage IV breast cancer: I was not able to get in contact with her oncologist. Patient recently started chemotherapy but this had to be stopped due to acute renal failure leading to end-stage renal disease on dialysis. Patient likely has a poor prognosis. Patient is still full code. Will need to discuss further with Oncology about her plan of care concerning her breast cancer. COPD: Will continue with COPD medication. Will maintain sats above 90%. Hyperkalemia secondary to end-stage renal disease: Patient will get emergent dialysis Anemia likely of chronic disease related to end-stage renal disease and stage IV breast cancer: Will monitor closely Elevated liver function likely liver congestion from congestive heart failure: Will monitor closely. Patient will receive dialysis. Time Spent Managing Pts Care (In Minutes): 55
[2018-05-03] MEDS ORDERED: ALBUMIN HUMAN 25% 50 ML IV SCH (10:00)
[2018-05-03] MEDS: SEVELAMER CARBONATE 800 MG TABLET PO SCH ×2 (11:38→17:22)
--- NOTE | 2018-05-03 12:55 | CON ---
Chief Complaint: Dyspnea. History Of Present Illness: Mrs. Gold has developed a cardiomyopathy due to or associated with chem otherapy for breast cancer. She has metastatic breast cancer. We do not really know what chemothera peutic agents she has been on, but in February she developed simultaneous renal and heart failures. We have 1 echocardiogram from recently that shows her ejection fraction was 14%, markedly dilated. She does not have a defibrillator. She is supposed to undergo some further imaging to see if her metast atic lesions in the lung are increasing or not and decisions are to be made soon, but she is in our h ospital because if she goes more than 24 hours between dialysis, she gets heart failure type symptoms , orthopneic and dyspneic, feels her abdomen swelling. She feels like she drinks much less than 1 L per day, eats a low-sodium diet, but when she goes from Thursday to Thursday, she often is so dyspneic. She feels like she cannot make it into the hospital with what happened last night. She will get dial ysis soon. She is still quite dyspneic. She is not a cigarette smoker. She does not use illegal dr [place]. She is under the care of doctors at [place], both at [place] and one in [place]. Outpatient Medications: Sevelamer, folic acid, Coreg 12.5 b.i.d., albuterol, penicillin, tramadol, a nd docusate. Allergies: SHE IS ALLERGIC TO CIPRO AND SULFA AND SHE HAS TOPICAL ALLERGIES TO SEVERAL THINGS. Physical Examination: Vital Signs: 5 feet, 3 inches, 89 pounds. HEENT: Normal. Lungs: Reveal decreased breath sounds in the base. I do not actually hear crackles. Heart: Diffuse enlarged apical impulse. Abdomen: Soft. Extremities: No edema, cyanosis, or clubbing. Her echocardiogram was from April 04, 2008. Her ejection fraction 14%. Left ventricular dimensio n was 4.1, which is particularly dilated. She has an internal proBNP level of 175,000. Impression: The patient has end-stage heart disease, end-stage renal disease, metastatic breast canc er. I do not really believe she is a candidate for a defibrillator, diuretics will not work. She co uld not take any of the usual heart failure medicine, so her prognosis is truly very grim. I think w e need to have a consultation with oncologists if they want to take her and transfer to imaging once if there and then proceed with chemotherapy or perhaps plan to make her hospice. I think the latter is actually quite likely. If she needs a defibrillator, she will require transfer to [facility]. LG/BIANCA Voice ID: [id number] Report ID: [id number]
--- NOTE | 2018-05-03 17:49 | P.CNS ---
Date of Consult: 05/03/18 Reason for Consult: ESRD to resume HD , electrolytes abnormality Requesting Physician: Bi Hernández Primary Care Provider: Dr. Hardy([facility]); Nephrology-Dr. Wei; Oncology-Dr. Carmona Chief Complaint: Dyspnea, CHF exacerbation Allergies ciprofloxacin HCl [From Cipro] Allergy (Unknown, Verified 04/02/18 13:39) Unknown Sulfa (Sulfonamide Antibiotics) Allergy (Unknown, Verified 04/02/18 13:39) Unknown Home medications list reviewed: Yes Home Medications: Albuterol Sulfate [Ventolin Hfa] 1 puff IH Q6HP PRN 04/03/18 Carvedilol 12.5 mg PO BID 04/03/18 Folic Acid/Vitamin B Comp W-C [Nephro-Uriel Tablet] 0.8 mg PO DAILY 04/03/18 Sevelamer Carbonate 800 mg PO TID 04/03/18 guaiFENesin [Robitussin 100MG/5ML*] 5 ml PO QID PRN #200 ml 04/05/18 Docusate [Colace Cap*] 100 mg PO BID PRN 05/03/18 traMADol HCL [Ultram*] 1 tab PO BID PRN 05/03/18 - Past Medical/Surgical History Diabetic: No -: right breast sx removal of lump, and lymph nodes -: breast ca-metastasized, radiation, chemo stopped 03/2018 complications -: renal disease -: ESRD -: COPD -: hysterectomy -: -: expl lap, rk -: port a cath left chest wall -: gabbi right chest wall - Family History Mother Medical History: Diabetes, Cancer Notes: breast ca Father Medical History: Heart disease, Hypertension - Social History Smoking Status: Unknown if ever smoked Alcohol use: No CD- Drugs: No Caffeine use: No Place of Residence: Home Review of Systems General: Weakness Respiratory: SOB with Excertion Cardiovascular: Unremarkable Gastrointestinal: Nausea Genitourinary: Unremarkable Physical Examination Temp Pulse Resp BP Pulse Ox 98.9 F 99 H 16 133/93 H 93 05/03/18 15:59 05/03/18 15:59 05/03/18 15:59 05/03/18 15:59 05/03/18 15:59 General: Oriented x3, Mild distress HEENT: PERRLA Neck: Supple Respiratory: Dull, Other (Decreased air entry Rt>lt ) Cardiovascular: No edema, Normal S1 S2, No rubs Gastrointestinal: Soft and benign Musculoskeletal: No swelling Integumentary: No rashes Laboratory Data (last 24 hrs) 05/03/18 01:05: PT 14.7 H, INR 1.24 05/03/18 01:05: WBC 7.1 D, Hgb 10.1 L, Hct 30.0 L, Plt Count 158 D 05/03/18 01:05: Sodium 127 L, Potassium 5.7 H*, BUN 59 H D, Creatinine 4.50 H D , Glucose 115 H, Magnesium 2.0, Total Bilirubin 0.8, AST 121 H, ALT 84 H, Alkaline Phosphatase 108 - Problems (1) Acute on chronic systolic CHF (congestive heart failure) Current Visit: Yes Status: Acute (2) Metastatic breast cancer Current Visit: No Status: Chronic (3) Respiratory distress Current Visit: No Status: Acute (4) Cancer Onset Date: 04/05/18 Current Visit: No Status: Chronic (5) ESRD (end stage renal disease) Onset Date: 04/05/18 Current Visit: No Status: Chronic Conclusions/Impression: A 53-year-old woman with OMHx of ESRD secondary to TMA and Chemo therapy on home HD X3/wk 3hrs per session Started on HD on 02/2018 via Rt Perm cath , Metatstaic breast CA, last Chemo on 02/2018 , CAD, COPD and BONNIE with EF ~15% Pt presented for SOB and weakness of ~ 2days duration Pt was having progressively worsening SOb of 1 month duration, exacerbated by activity, last 2 days she got worse and felt so weak, was naseous, no vomiting ,diarrhea, or palpitatioin Nephrology consult to resume HD and electrolytes abnormalities Assessment And Plan: ESRD on HD MWF via Rt AVF feels better after HD plan to transfer the Pt , if pt will be in the hospital tomorrow then will cont daily HD renal diet Adjust meds as per RFT Hyperkalemia and hyponatremia had HS today Anemia On Epo Will get iron panel and breanna MBMarina resume Sevelamir with meals SOB likely multifactorial , lung mets + CHF exacerbation Will cont HD elevated LFT possibly due liver mets Check hep panel and liver US
[2018-05-03 21:37] VITALS: O2SAT 100
[2018-05-04 04:32] VITALS: TEMP 97.8
[2018-05-04 04:39] VITALS: BP 165/85
[2018-05-04 05:16] VITALS: BMI 15.1
[2018-05-04] MEDS ORDERED: PANTOPRAZOLE 40MG TABLET PO SCH (06:30)
[2018-05-04 08:02] LABS: Absolute Lymphocytes (CBC) 0.4 K/uL (0.7-4.9); Absolute Monocytes 0.3 K/uL (0.1-1.3); Basophils % 0.8 % (0-1.3); Eosinophils % 0.4 % (0-4.4); Hematocrit 27.7 % (36.0-45.0); Lymphocytes % 9.2 % (15.3-44.8); MCH 33.9 pg (27.0-35.0); MCV 97.7 fL (80-100); MPV 9.2 fL (7.6-11.3); Monocytes % 6.5 % (3.3-12.3); RBC Red Blood Cell Count 2.84 M/uL (3.86-4.86)
[2018-05-04 08:13] LABS: Potassium 4.6 mmol/L (3.5-5.1)
[2018-05-04] MEDS ORDERED: HYDRALAZINE HCL 25 MG TABLET PO SCH (09:00)
[2018-05-04] MEDS ORDERED: MULTIVITAMINS,THERAPEUT 1 TAB PO SCH (09:00)
--- NOTE | 2018-05-04 12:26 | P.DS ---
Admission Date: 05/03/18 Discharge Date: 05/04/18 Primary Care Provider: Dr. Hardy([facility]); Nephrology-Dr. Wei; Oncology-Dr. Carmona Disposition: TRANSFER TO [facility] Discharge Condition: GOOD Reason for Admission: Dyspnea, CHF exacerbation Consultations: Cardiology-Dr. Gibbons Nephrology-Dr. Wei Procedures: Medical problem list: Shortness of breath secondary to acute on chronic severe systolic congestive heart failure with ejection fraction 15% CAD requiring defibrillator End-stage renal disease on dialysis Stage IV breast cancer COPD Hyperkalemia secondary to end-stage renal disease Anemia likely of chronic disease related to end-stage renal disease and stage IV breast cancer Elevated liver function likely liver congestion from congestive heart failure Brief History of Present Illness: 53-year-old female presented emergency room with increasing shortness of breath. Patient found to have acute on chronic systolic CHF complicated with end-stage renal disease on dialysis and stage IV breast cancer. Patient was admitted for treatment. Hospital Course: Patient presented with shortness of breath secondary to acute on chronic severe systolic congestive heart failure with ejection fraction around 15%. This was complicated with stage IV breast cancer and end-stage renal disease with hyperkalemia. Patient was given dialysis. Patient was evaluated by nephrology and cardiology. Recently the patient had to be on 4 days out of the week of dialysis due to increasing shortness of breath. Cardiology recommends defibrillator placement due to her poor ejection fraction. A detailed long discussion was addressed with the patient and concerning her current condition. Her stage IV breast cancer has complicated her current condition. Chemotherapy had been stopped recently due to acute renal failure leading to end -stage renal disease on dialysis. She had been recently hospitalized in [place]. Patient still desires treatment for her stage IV breast cancer if possible. I was not able to get in contact with her oncologist to address prognosis and type of cancer. Advanced directives address in detail with the patient. Patient is currently full code. Due to her current circumstances, patient was transferred to [facility] for defibrillator placement. Patient will continue with dialysis there. It is recommended that the patient be further evaluated by her oncologist at that facility. Her oncologist will need to determine her prognosis and plan of care concerning her stage IV breast cancer. This will help further decisions. Nephrology had addressed possible hospice recently as an outpatient. This was readdressed with the patient in detail during her hospitalization. Patient desires to hear from her oncologist about prognosis and plan of care before deciding on possible options of care. Patient transferred. Vital Signs/Physical Exam: Temp Pulse Resp BP Pulse Ox 97.8 F 101 H 18 165/85 H 100 05/04/18 04:00 05/04/18 04:00 05/04/18 04:00 05/04/18 04:00 05/04/18 04:00 General: Alert, In no apparent distress, Oriented x3, Cooperative, Cachectic HEENT: Atraumatic Neck: Supple Respiratory: Crackles/rales (Bilateral) Cardiovascular: Normal pulses, Regular rate/rhythm Gastrointestinal: Normal bowel sounds, Soft and benign, Non-distended, No tenderness, No masses, No rebound, No guarding, Other (Patient with extreme weight loss) Musculoskeletal: No erythema, No tenderness, No warmth Integumentary: No erythema, No warmth, No cyanosis Neurological: Normal speech, Normal strength at 5/5 x4 extr, Normal tone, Normal affect Laboratory Data at Discharge: WBC 4.9 K/uL (4.3-10.9) D 05/04/18 07:42 Hgb 9.6 g/dL (12.0-15.0) L 05/04/18 07:42 Hct 27.7 % (36.0-45.0) L 05/04/18 07:42 Plt Count 162 K/uL (152-406) 05/04/18 07:42 PT 14.7 SECONDS (9.5-12.5) H 05/03/18 01:05 INR 1.24 05/03/18 01:05 Sodium 130 mmol/L (136-145) L 05/04/18 07:42 Potassium 4.6 mmol/L (3.5-5.1) 05/04/18 07:42 BUN 42 mg/dL (7-18) H 05/04/18 07:42 Creatinine 3.90 mg/dL (0.55-1.3) H 05/04/18 07:42 Glucose 123 mg/dL (74-106) H 05/04/18 07:42 Magnesium 2.0 mg/dL (1.8-2.4) 05/03/18 01:05 Total Bilirubin 0.8 mg/dL (0.2-1.0) 05/03/18 01:05 AST 121 U/L (15-37) H 05/03/18 01:05 ALT 84 U/L (12-78) H 05/03/18 01:05 Alkaline Phosphatase 108 U/L (45-117) 05/03/18 01:05 Home Medications: Albuterol Sulfate [Ventolin Hfa] 1 puff IH Q6HP PRN 04/03/18 Carvedilol 12.5 mg PO BID 04/03/18 Folic Acid/Vitamin B Comp W-C [Nephro-Uriel Tablet] 0.8 mg PO DAILY 04/03/18 Sevelamer Carbonate 800 mg PO TID 04/03/18 guaiFENesin [Robitussin 100MG/5ML*] 5 ml PO QID PRN #200 ml 04/05/18 Docusate [Colace Cap*] 100 mg PO BID PRN 05/03/18 traMADol HCL [Ultram*] 1 tab PO BID PRN 05/03/18 Patient Discharge Instructions: 1. Patient to be transferred to [facility] for defibrillator placement and further treatment concerning her Acute on chronic systolic CCHF with EF of 15%, ESRD on dialysis and Stage 4 Breast cancer. Diet: Renal Activity: Fall precautions Time spent managing pt's care (in minutes): 55
[2018-05-04] MEDS ORDERED: CARVEDILOL 12.5 MG TAB PO SCH (18:00)
== END 2018-05-04 08:31 | disposition short-term general hospital (02) | DRG 291 ==
LOC: ER 01:28 → ERHOLD 04:08 → 4TH 05:44
PROVIDERS: ADMIT Internal Medicine; ATTEND Family Medicine
PROC: 5A1D70Z Performance of Urinary Filtration, Intermittent, Less than 6 Hours Per Day (ICD-10-PCS; principal; 2018-05-03)
DX: I50.23 Acute on chronic systolic (congestive) heart failure (principal); N18.6 End stage renal disease; C79.51 Secondary malignant neoplasm of bone; C78.00 Secondary malignant neoplasm of unspecified lung; E87.1 Hypo-osmolality and hyponatremia; I42.9 Cardiomyopathy, unspecified; I25.10 Atherosclerotic heart disease of native coronary artery without angina pectoris; Z99.2 Dependence on renal dialysis; Z85.3 Personal history of malignant neoplasm of breast; J44.9 Chronic obstructive pulmonary disease, unspecified; E87.5 Hyperkalemia; D63.1 Anemia in chronic kidney disease; D63.0 Anemia in neoplastic disease; Z87.891 Personal history of nicotine dependence; T45.1X5A Adverse effect of antineoplastic and immunosuppressive drugs, initial encounter; Y92.89 Other specified places as the place of occurrence of the external cause
CPT/HCPCS: 36415; 71045; 80048; 80076; 83735; 83880; 84132; 84484; 85025; 85610; 90935; 93005; 94640; 94760; 99285; J0360; J2405; Q4081

== ENCOUNTER 2018-05-09 03:55 | Emergency (ER) | payer OTHER ==
--- OUTSIDE RECORDS SUMMARY | 2018-05-09 03:59 | XMS REPORT | Clinical Summary ---
:1965 Author Organization [facility] Address [address] [place] [address] Phone Care Team Providers Name Role Phone [...] Disp. Refills Start End Status Date Date senna (SENOKOT) 8.6 Take 1 tablet by Active mg tablet mouth daily as needed For the first three days after chemotherapy. melatonin 3 mg Tab Take 3 mg [...] as needed for up to [address] benzocaine-menthol Place 1 lozenge 0 Active 15-3.6 mg Lozg inside cheek 8 every 2 (two) hours as needed. folic Take 1 tablet by 30 tablet 2 Active acid-multivitamins mouth daily for 8 018 (NEPHRO-FROILAN) 0.8 mg 90 days. Tab tablet sevelamer (RENVELA) Take 1 tablet 90 tablet 2 Active 800 mg tablet (800 mg total) by 8 018 mouth 3 (three) times daily with meals for 90 days. traMADol (ULTRAM) 50 Take 1 tablet (50 30 tablet 0 Active mg tablet mg total) by 8 018 mouth 2 (two) times daily for 30 days. Max Daily Amount: 100 mg sacubitril-valsartan Take 1 tablet by 60 tablet 0 Active (ENTRESTO) 24-26 mg mouth 2 (two) 8 018 Tab times daily for 30 days. rosuvastatin Take 10 mg by [...] mouth 3 (three) 018 capsule times daily. diphenhydrAMINE Take 25 mg by Discontinued (BENADRYL) 50 MG mouth every 4 018 capsuleIndications: (four) hours as Pruritus of Skin needed for Itching. calcium carbonate Take 1,200 mg by Discontinued [...] per (twelve) hours tablet for 10 days. ondansetron (ZOFRAN) Take by mouth Discontinued 8 MG every 8 (eight) 018 tabletIndications: hours as needed Cancer for Nausea First Chemotherapy-Induced three days after Nausea and Vomiting, chemotherapy. Prevention of Chemotherapy-Induced Nausea and Vomiting mirtazapine Take 15 mg by Discontinued (REMERON) 15 MG mouth nightly. 018 tablet SUMAtriptan 1 tab PO at onset 9 tablet 0 Discontinued (IMITREX) 50 MG of headache; december 01 018 tablet repeat in 2 hours if needed (maximum daily xskn=[id number]). traMADol (ULTRAM) 50 Take 50 mg by [...] Inject 2 mLs (4 20 mL 0 08/22/201 09/05/2 Discontinued 4 mg/2 mL injection mg total) [...] 10 days. Max Daily Amount: 30 mLs guaiFENesin 1,200 mg Take 1,200 mg by 0 Discontinued Ta12 mouth 2 (two) 8 018 times daily as needed. zolpidem (AMBIEN) 5 Take 1 tablet (5 [...] for Flatulence for up to 10 days. sodium chloride 1 spray by Nasal 15 mL 0 Discontinued 0.65% (OCEAN) 0.65 % route 4 (four) 8 018 nasal spray times daily as needed. morphine 2 mg/mL Inject 1 mL (2 [...] 018 tablet mouth daily for 10 days. carvedilol (COREG) Take 1 tablet 60 tablet 2 Discontinued 12.5 MG tablet (12.5 mg total) 8 [...] 30 days. Max Daily Amount: 100 mg losartan (COZAAR) 25 Take 1 tablet (25 30 tablet 0 Discontinued MG tablet mg total) by 8 018 mouth daily for 30 days. 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 Demand ischemia (HCC) 03/18/2018 Systolic CHF, acute on chronic (HCC) EF 30 % 03/18/2018 Thrombocytopenia ([facility]) 03/17/2018 Acute renal failure (ARF) ([facility]) 03/16/2018 Symptomatic anemia 03/16/2018 Metabolic acidosis 03/16/2018 Troponin level elevated 03/16/2018 Community acquired bacterial pneumonia 03/16/2018 Fever 12/11/2017 Metastatic breast cancer ([facility]) 12/11/2017 Sepsis due to undetermined organism without resultant organ failure ([facility]) Malignant neoplasm metastatic to lung ([facility]) 11/09/2017 Headache syndrome 10/21/2017 Other neutropenia ([facility]) 10/21/2017 Elevated liver enzymes 10/19/2017 Weight loss 09/01/2017 Intraductal carcinoma in situ of breast 04/19/2014 Resolved Problems Problem Noted Date Resolved Date Sepsis (HCC) 10/20/2017 12/09/2017 Abnormal LFTs (liver function tests) 10/20/2017 12/09/2017 Encounters Date Type Specialty Care Team Description 05/04/2018 - Hospital General Internal Ulises Wang, 05/06/2018 Encounter Medicine MD 05/04/2018 Orders Only Romeo Ellison, [place] 04/28/2018 Orders Only General Internal Medicine 04/25/2018 - Hospital Cardiology Callum Cali MD Metastatic breast 04/29/2018 Encounter Rama Tavares MD ([facility]);Pseudoaneurysm [place], of femoral artery MD Joe ([facility]);Systolic CHF, acute on chronic (HCC);Thrombotic microangiopathy (HCC);Thrombocytopenia (HCC);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 Orders Only General Internal Medicine 03/17/2018 - Hospital General Internal William Wren MD Metabolic acidosis 03/31/2018 Encounter Medicine Gian, (Primary Dx);Acute Christopher renal failure, MD Joseph unspecified acute Titus Tg renal failure type MD Renata (HCC);Thrombotic Samm, microangiopathy Aliyah Barkley MD (HCC);Other autoimmune Michelle Ram MD hemolytic anemias [place], (HCC);Malignant MD Joe neoplasm of female breast, unspecified estrogen receptor status, unspecified laterality, unspecified site of breast (HCC);REJI (acute kidney injury) (HCC);Symptomatic anemia;Thrombocytopeni a (HCC);(HFpEF) heart failure with preserved ejection fraction (HCC) 03/17/2018 Telephone Critical Care William Wern MD [place] Medicine 03/16/2018 - [facility] General Internal Taya Luis Fernando Ragsdale, Symptomatic anemia 03/17/2018 Encounter Medicine (Primary Andrew Pretty Dx);Aki Enciso MD weakness;Essential hypertension;Cough;Sandi halley malignant neoplasm of breast with metastasis to other site, unspecified laterality (HCC);Acute renal failure, unspecified acute renal failure type (HCC);Dehydration;Comm unity acquired bacterial pneumonia;Troponin level elevated 12/08/2017 - [facility] General Internal Norberto Ruggiero Fever, unspecified 12/12/2017 Encounter Medicine MD Martin fever cause (Primary Andrew Pretty Dx);LeukopeniaFernie MD unspecified type;Hyponatremia;[place] static breast cancer (HCC);Sepsis due to undetermined organism without resultant organ failure (HCC) 10/20/2017 - Hospital General Internal Wai Bernal, Fever, unknown origin 10/23/2017 Encounter Medicine (Primary Dx);On Andrew Pretty antineoplastic MD Fernie chemotherapy;Other specified hypotension;Generalize d headache;Abnormal LFTs (liver function tests);Sepsis, due to unspecified organism (HCC);Headache syndrome;Other neutropenia (HCC) after 05/08/2017 Family History Medical History Relation Name Comments Cancer Father Diabetes Father Diabetes Mother Relation Name Status Comments Father Mother Social History Tobacco Use Types Packs/Day Years Used Date Former Smoker 0.5 15 Smokeless Tobacco: Never Used Alcohol Use Drinks/Week oz/Week Comments No Sex Assigned at Date Recorded Not on file Last Filed Vital Signs Vital Sign Reading Time Taken Blood Pressure 142/80 05/06/2018 1:00 PM CDT Pulse 81 05/06/2018 1:00 PM CDT Temperature 36.6 C (97.9 F) 05/06/2018 1:00 PM CDT Respiratory Rate 18 05/06/2018 1:00 PM CDT Oxygen Saturation 100% 05/06/2018 1:00 PM CDT Inhaled Oxygen Concentration - - Weight 40.4 kg (89 lb) 05/04/2018 11:00 AM CDT Height 160 cm (5' 3") 05/04/2018 11:40 PM CDT Body Mass Index 15.77 05/04/2018 11:00 AM CDT Plan of Treatment Not on file Implants Implanted Type Area Steam Hand Device Expiration Model / Identifier Date Serial / Lot Port,Mri Powerport Isp 6fr Chronoflex W/Suture Plugs - [id number] Catheter C R BARD 05/26/2015 [id number] / Implanted: Qty: 1 on 04/28/2014 by Luly Escalante Ports/[employer] PERIPHERAL [id number] / l Line [id number] Procedures Procedure Name Priority Date/Time Associated Diagnosis Comments CRITICAL CARE Routine 03/16/2018 11:25 AM Results for this CDT procedure are in the results section. after 05/08/2017 Results EKG-SCANNED (05/07/2018 2:50 PM)Only the most recent of3 resultswithin the time period is included.RHYTHM STRIP - SCAN (05/07/2018 2:50 PM)Only the most recent of5 resultswithin the time period is included.Basic Metabolic Panel (05/2018 8:12 AM)Only the most recent of37 resultswithin the time period is included. Component Value Ref Range Sodium 133 (L) 135 - 148 meq/L Potassium 3.2 (L) 3.6 - 5.5 meq/L Chloride 97 (L) 98 - 106 meq/L CO2 24 20 - 29 meq/L BUN 16 10 - 26 mg/dL Creatinine 2.18 (H) 0.50 - 1.20 mg/dL Glucose 130 (H) 70 - 110 mg/dL Calcium 8.4 (L) 8.5 - 10.5 mg/dL EGFR 24Comment: ESTIMATED GFR IS NOT ACCURATE mL/min/1.73 sq m CREATININE CLEARANCE IN PREDICTING GLOMERULAR FILTRATION RATE. ESTIMATED GFR IS NOT APPLICABLE FOR DIALYSIS PATIENTS. Specimen Performing Laboratory Blood [facility] [address] [place] [address] Iron, TIBC, % sat. (without ferritin) (05/06/2018 5:00 AM) Component Value Ref Range Iron 49 40 - 160 ug/dL TIBC 216 (L) 250 - 450 ug/dL Iron % Saturation 23 20 - 55 % Specimen Performing Laboratory Blood - Central Venous Line [address] [address] CBC with platelet count + automated diff (05/06/2018 5:00 AM)Only the most recent of30 resultswithin the time period is included. Component Value Ref Range WBC 5.2 4.0 - 10.0 K/L RBC 2.63 (L) 4.00 - 5.00 M/L Hemoglobin 8.6 (L) 12.0 - 15.5 GM/DL Hematocrit 27.2 (L) 36.0 - 46.0 % MCV 103.4 (H) 82.0 - 99.0 fL MCH 32.7 27.0 - 33.0 pg MCHC 31.6 (L) 32.0 - 36.0 GM/DL RDW 19.9 (H) 12.0 - 15.0 % Platelets 135 (L) 150 - 430 K/CU MM MPV 11.1 6.0 - 11.5 fL nRBC 0 0 - 0 /100 WBC % Neutros 80 % % Lymphs 10 % % Monos 8 % % Eos 1 % % Baso 0 % # Neutros 4.17 1.80 - 8.00 K/L # Lymphs 0.51 (L) 1.48 - 4.50 K/L # Monos 0.41 0.00 - 1.30 K/L # Eos 0.04 0.00 - 0.50 K/L # Baso 0.02 0.00 - 0.20 K/L Immature Granulocytes-Relative 1 (H) 0 - 0 % Specimen Performing Laboratory Blood - Central Venous Line [facility] [place] [address] CBC with platelet count + automated diff (05/06/2018 5:00 AM)Only the most recent of30 resultswithin the time period is included. Specimen Performing Laboratory Blood Narrative The following orders were created for panel order CBC with platelet count + automated diff. Procedure Abnormality Status --------- ------ CBC with platelet count ...[[id number]]AbnormalFinal result Please view results for these tests on the individual orders. Hemoglobin A1c (05/06/2018 5:00 AM)Only the most recent of2 resultswithin the time period is included. Component Value Ref Range Hemoglobin A1C 4.6 4.3 - 6.1 % Specimen Performing Laboratory Blood - Central Venous Line [facility] [address] [place], [place] [address] Ferritin (05/06/2018 5:00 AM) Component Value Ref Range Ferritin 4333 (H) 10 - 291 ng/mL Specimen Performing Laboratory Blood - Central Venous Line [facility] [address] [place], [place] [address] Troponin I (05/04/2018 6:24 PM)Only the most recent of6 resultswithin the time period is included. Component Value Ref Range Troponin I 0.11 0.00 - 0.15 ng/mL Specimen Performing Laboratory Blood [facility] [address] [place] [address] Narrative Troponin I (TnI) levels must be [...] acidosis, acute neurological disease, and persistent tachyarrhythmia. Comprehensive metabolic panel (05/04/2018 6:24 PM)Only the most recent of6 resultswithin the time period is included. Component Value Ref Range Protein, Total 7.9 6.0 - 8.5 gm/dL Albumin 3.8 3.5 - 5.0 g/dL Alkaline Phosphatase 73 30 - 115 U/L Total Bilirubin 0.7 0.1 - 1.2 mg/dL Sodium 130 (L) 135 - 148 meq/L Potassium 4.5 3.6 - 5.5 meq/L Chloride 93 (L) 98 - 106 meq/L CO2 19 (L) 20 - 29 meq/L BUN 56 (H) 10 - 26 mg/dL Creatinine 4.74 (H) 0.50 - 1.20 mg/dL Glucose 165 (H) 70 - 110 mg/dL Calcium 8.7 8.5 - 10.5 mg/dL AST 40 5 - 40 U/L ALT 55 (H) 5 - 50 U/L EGFR 10Comment: ESTIMATED GFR IS NOT ACCURATE mL/min/1.73 sq m CREATININE CLEARANCE IN PREDICTING GLOMERULAR FILTRATION RATE. ESTIMATED GFR IS NOT APPLICABLE FOR DIALYSIS PATIENTS. Specimen Performing Laboratory Blood [facility] [address] [place] [address] ECHOCARDIOGRAM REPORT - SCAN (04/29/2018 3:50 PM)Only the most recent of2 resultswithin the time period is included.Arterial doppler legs bilateral (04/29 1:30 PM) Component Value Ref Range Ejection Fraction Specimen Performing Laboratory [facility] MKCKESSON CPACS Impressions Right [...] Name Esthela GOLD of Study 04/29/2018 ADAN [id number] Age 53 Visit Number [id number] Gender Female Accession Number [id number] Date of 1965 [facility] Fabián MDRoom Number 1138 Physician SonographerNatanael Schuster. Luis Fernando Saxena MD, TPhysician RPVI Procedure Type of Study: Extremities Arteries: [...] Study 04/29/2018 ADAN Age 53 Visit Number [id number] Gender Female Accession Number [id number] Date of 1965 Referring Zack Lockwood MD Room Number 1138 Physician Party Plan Sales Director Natanael Gomez Interpreting Ho Saxena MD, RVT [...] Ref Range Ejection Fraction Specimen Performing Laboratory [facility] CPACS Narrative Transthoracic Echocardiography Report (TTE) Demographics Patient Name Esthela GOLD of Study 04/29/2018 ADAN [id number] Gender Female Visit Number [id number] RaceCaucasian [id number] Number 1138 Number Date 1965 Referring Physician Age53 year(s) Party Plan Sales Director Ilsa Reyes, TABITHA, RDCS,RVT,RDMS AnalystMailyn InterpretingRaymMD Reanna Reyes Physician Procedure Type of Study TTE procedure:2DECHO [...] Study 04/29/2018 ADAN Gender Female Visit Number [id number] Race Room Number 1138 Number Date of 1965 Referring Physician Age 53 year(s) Party Plan Sales Director TABITHA Pak, RDCS,RVT,RDMS Manufacturing Planner Emilee Interpreting MD Reanna Garcia Physician Procedure [...] Velocity: 3.8 m/s TR Gradient: 57.86 mmHg Phosphorus (04/29/2018 3:55 AM)Only the most recent of7 resultswithin the time period is included. Component Value Ref Range Phosphorus 3.1Comment: Specimen slightly hemolyzed 2.3 - 4.7 mg/dL Specimen Performing Laboratory Blood - Arm, Left [facility] [address] [place] [address] Magnesium (04/29/2018 3:55 AM)Only the most recent of17 resultswithin the time period is included. Component Value Ref Range Magnesium 2.0Comment: Specimen slightly hemolyzed 1.6 - 2.6 mg/dL Specimen Performing Laboratory Blood - Arm, Left [address] [address] TRANSFUSION SERVICE REPORT - SCAN (04/28/2018 6:00 PM)Only the most recent of10 resultswithin the time period is included.IR thrombin injection (2017 6:00 PM) Specimen Performing Laboratory [facility] Narrative FINAL REPORT Ultrasound guided thrombin injection, 04/28/2018. 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 Modality: Fluoroscopy. Sedation: None. Resident Surgeon:Zee. Bending Press Operator:Jorge. Approach:Right inguinal region. Estimated blood loss:< 10 [...] Contrast was injected through the micropuncture 4 Micronesian sheath for a DSA run to evaluate [...] MD Report Verified Date/Time:04/29/2018 08:05:43 Reading Location: [facility] Radiology Reading Room Procedure Note Interface, External Ris In - 04/29/2018 8:07 AM CDT FINAL REPORT Ultrasound guided thrombin injection, 04/28/2018. 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 Modality: Fluoroscopy. Sedation: None. Resident Surgeon: Zee. Bending Press Operator: Jorge. Approach: Right inguinal region. Estimated blood [...] Contrast was injected through the micropuncture 4 Micronesian sheath for a DSA run to evaluate [...] Report Verified Date/Time: 04/29/2018 08:05:43 Reading Location: [facility] Radiology Reading Room Hemodialysis (04/28/2018 1:37 PM)Only the most recent of6 resultswithin the time period is included. Narrative Aman Daniel RN 04/28/20181:37 PM Received pt awake, slightly light headed, BP checked. Introduced myself to pt.Taking over care from Iron GOFF. UF off if not tolerated as instructed by Dr Smith to Iron GOFF. Monitor pr closely. Lab Results Component Value Date WBC 2.9 (L) 04/28/2018 HGB 9.1 (L) 04/28/2018 HCT 29.2 (L) 04/28/2018 MCV 101.0 (H) 04/28/2018 PLT 110 (L) 04/28/2018 Chemistry Component Value Date/Time NA 128 (L) 04/28/2018 0551 K 4.7 04/28/2018 0551 CL 94 (L) 04/28/2018 0551 CO2 22 04/28/2018 0551 BUN 49 (H) 04/28/2018 0551 CREATININE 4.78 (H) 04/28/2018 0551 Component Value Date/Time CALCIUM 8.4 04/28/2018 0551 ALKPHOS 42 03/28/2018 0245 AST 35 (H) 03/28/2018 0245 ALT 13 03/28/2018 0245 BILITOT 1.0 03/28/2018 0245 Results for RAVNE GOLD ( ) as of 04/28/2018 13:37 Ref. Range 04/25/2018 20:51 Hepatitis B Surface Ag Latest Ref Range: NonreactiveNonreactive ECG 12 lead (04/28/2018 9:23 AM)Only the most recent of5 resultswithin the time period is included. Specimen Performing Laboratory [employer] Narrative Ventricular Rate 99 BPM Atrial Rate 99 BPM P-R Interval 138 ms QRS Duration 70 ms Q-T Interval 378 ms QTC Calculation(Bazett) 485 ms P [place] 56 degrees R [place] 62 degrees T [place] 81 degrees Normal sinus rhythm Prolonged QT [...] 378 ms QTC Calculation(Bazett) 485 ms P [place] 56 degrees R [place] 62 degrees T [place] 81 degrees Normal sinus rhythm Prolonged QT Abnormal ECG When compared with ECG of 26-MAR-2018 08:47, Significant changes have occurred Confirmed by MD DOZIER MAJID ([id number]) on 05/02/2018 10:13:00 AM Direct AHG (BASIL)/Direct Rose (04/27/2018 7:09 PM)Only the most recent of2 resultswithin the time period is included. Component Value Ref Range Direct AHG-IGG NEGATIVE Direct AHG-C3B, C3D NEGATVIE Specimen Performing Laboratory Blood [address] [address] Hepatitis B surface antigen (04/25/2018 8:51 PM) Component Value Ref Range hepatitis B Surface Ag Nonreactive Nonreactive Specimen Performing Laboratory Blood - Arm, [address] [address] Peripheral Blood Smear - Hold only (04/25/2018 4:17 PM)Only the most recent of4 resultswithin the time period is included. Component Value Ref Range Peripheral Smear Save saved Specimen Performing Laboratory Blood - Arm, [address] [address] Lactate dehydrogenase (LDH) (04/25/2018 4:17 PM)Only the most recent of5 resultswithin the time period is included. Component Value Ref Range LDH 332 (H) 125 - 220 U/L Specimen Performing Laboratory Blood - Arm, [address] [address] Haptoglobin (04/25/2018 4:17 PM)Only the most recent of4 resultswithin the time period is included. Component Value Ref Range Haptoglobin <8 (L) 14 - 258 mg/dL Specimen Performing Laboratory Blood - Arm, [address] [address] Arterial doppler leg, right (04/25/2018 6:35 AM) Component Value Ref Range Ejection Fraction Specimen Performing Laboratory [facility] Impressions Right Impression 1. There is [...] LAB - Pseudoaneurysm Survey Demographics Patient Name GABY GOLDIda of Study 04/25/2018 ADAN [id number] Age 53 Visit Number [id number] Gender Female Accession Number [id number] Date of 1965 [facility] Number 1138 Physician SonographPhillip DawnInterpretingHo Saxena MD, RVTPsician RPVI Procedure Type of Study: Pseudoaneurysm: PSEUDOANEURYSM, [...] Study 04/25/2018 ADAN Age 53 Visit Number [id number] Gender Female Accession Number [id number] Date of 1965 [facility] Karely Nolen Room Number 1138 Physician Party Plan Sales Director Steph Dawn Interpreting Ho Saxena MD, RVT [...] Range POC-Glucose Meter 121 (H)Comment: TESTED AT [address] 70 - 110 mg/[place] [id number] Specimen Performing Laboratory Blood [facility] [address] [address] IR CV Access Fluoro (03/30/2018 4:42 PM) Specimen Performing Laboratory [facility] Narrative FINAL REPORT Tunneled dialysis catheter insertion. History: Renal failure. Modality: Sonography and fluoroscopy. Sedation: Versed 0.5 mg and fentanyl 25 mcg was given intravenously for conscious sedation.Vital signs were monitored throughout the procedure by a nurse, and remained stable. Physician intra-service time was 15 minutes. Resident Surgeon:Blessing. Bending Press Operator:None. Approach: Right internal jugular vein Estimated [...] needle into the right atrium. A 4 Micronesian micropuncture sheath was placed.A subcutaneous tunnel was created in the right anterior chest wall by blunt dissection.A 19 cm 15.5 Micronesian Duraflow 2 catheter was brought through the [...] MD Report Verified Date/Time:04/01/2018 17:46:56 Reading Location: [place] [address] Angio Body Reading Room Procedure Note Interface, External Ris In - 04/01/2018 5:49 PM CDT FINAL REPORT Tunneled dialysis catheter insertion. History: Renal failure. Modality: Sonography and fluoroscopy. Sedation: Versed 0.5 mg and fentanyl 25 mcg was given intravenously for conscious sedation. Vital signs were monitored throughout the procedure by a nurse, and remained stable. Physician intra-service time was 15 minutes. Resident Surgeon: Blessing. Bending Press Operator: None. Approach: Right internal jugular vein [...] needle into the right atrium. A 4 Micronesian micropuncture sheath was placed. A subcutaneous tunnel was created in the right anterior chest wall by blunt dissection. A 19 cm 15.5 Micronesian Duraflow 2 catheter was brought through the [...] Report Verified Date/Time: 04/01/2018 17:46:56 Reading Location: [facility] P048 Angio Body Reading Room /aPTT (03/30/2018 4:37 AM)Only the most recent of4 resultswithin the time period is included. Component Value Ref Range Protime 16.7 (H) 11.7 - 14.7 seconds INR 1.4 <=5.9 PTT 39.8 (H) 22.5 - 36.0 seconds Specimen Performing Laboratory [place] [id number] Narrative RECOMMENDED COUMADIN/WARFARIN INR THERAPY RANGES STANDARD [...] COMPATIBLE Unit ABO A Pos UNIT NUMBER [id number] Status TRANSFUSED Blood Bank Product RED BLOOD CELLS PRODUCT CODE [id number] Specimen Performing Laboratory Other SAFETRACE TX XR [...] Report Verified Date/Time:03/28/2018 22:19:58 Reading Location: [address] Reading Room Procedure Note Interface, External [...] clips overlie the right chest. Signed: Radha Mnoge MD Report Verified Date/Time: 03/28/2018 22:19:58 Reading Location: [address] Reading Room Lactic acid, venous, whole blood (03/28/2018 2:45 AM)Only the most recent of5 resultswithin the time period is included. Component Value Ref Range Lactate, Venous 1.1 0.5 - 2.2 mmol/L Specimen Performing Laboratory Blood [address] [address] Narrative Effective 11/28/2015: Units/Reference Range Change New: 0.5-2.2 mmol/LPrevious: 5-20 mg/dL Blood culture (03/28/2018 2:44 AM)Only the most recent of6 resultswithin the time period is included. Component Value Ref Range Result No growth in 5 days Specimen Performing Laboratory Blood - Central Venous Line [address] [address] Transfuse Leuko-Red RBC (03/27/2018 2:48 PM)Only the most recent of7 resultswithin the time period is included.Type and screen, automated (2017 12:03 PM)Only the most recent of3 resultswithin the time period is included. Component Value Ref Range ABO/RH AUTOMATED (BEAKER) A POSITIVE Ab Scrn NEGATIVE Specimen Performing Laboratory Blood [address] [place] [address] XR shoulder complete 2 views min left [...] MD Report Verified Date/Time:03/26/2018 17:48:06 Reading Location: [facility] Radiology Reading Room Procedure Note Interface, External [...] Report Verified Date/Time: 03/26/2018 17:48:06 Reading Location: [facility] Radiology Reading Room abdomen/pelvis without iv contrast [...] MD Report Verified Date/Time:03/26/2018 02:57:14 Reading Location: [address] Transitional Reading Room Procedure Note Interface, [...] Report Verified Date/Time: 03/26/2018 02:57:14 Reading Location: [address] Transitional Reading Room renal biopsy (03/24/2018 1:00 PM) Specimen Performing Laboratory GE [facility] Narrative FINAL REPORT HISTORY: Acute kidney injury of unknown etiology Sedation: Moderate sedation was administered. 0.5 mg of Versed and 25 mcg of fentanyl IV was used for moderate sedation monitored under my direction. Total intra-service time of sedation [id number]. The patient's vital signs were monitored throughout [...] ultrasound guided core random biopsy of the [place] left kidney. Signed: Eduin Thompson MD Report Verified Date/Time:03/24/2018 12:59:37 Reading Location: [address] Ultrasound Reading Room Procedure Note Interface, [...] ultrasound guided core random biopsy of the mus[place]ogee left kidney. Signed: Eduin Thompson MD Report Verified Date/Time: 03/24/2018 12:59:37 Reading Location: [address] Ultrasound Reading Room Tissue Exam (03/24/2018 12:53 PM) Component Value Ref Range Case Report Surgical Pathology Report Case: [id number] Authorizing Provider:Michelle Ram MD Collected: 03/24/2018 1253 Ordering Location: [address] Received: 03/24/2018 1254 Service Pathologist: Dennise Jo MD Specimen:Kidney, Left, Left kidney needle biopsy DIAGNOSIS KIDNEY, LEFT, NEEDLE BIOPSIES - ACUTE THROMBOTIC MICROANGIOPATHY - MODERATE INTERSTITIAL FIBROSIS AND TUBULAR ATROPHY (~40%) Signing Pathologist Direct Phone Line: [phone] COMMENT Immunofluorescence of C4d shows deposition in [...] on 03/25/2018 at 10.15 am. CPT Code(s) 57210, 73034 X3, 19743, 44985 x8, 41811 CLINICAL HISTORY Left renal failure evaluation SPECIMEN SOURCE [place] left kidney biopsy GROSS DESCRIPTION The specimen [...] tubular basement membranes. Fibrinogen: Positive in thrombi [place]:Focal segmental to global, granular, peripheral capillary loop [...] processes. Specimen Performing Laboratory Tissue - Kidney, [address] [address] Hepatic function panel (03/22/2018 4:51 PM)Only the [...] Performing Laboratory Blood - Central Venous Line [address] [address] Prothrombin time/INR (03/22/2018 6:28 AM)Only the most recent of3 resultswithin the time period is included. Component Value Ref Range Protime 16.2 (H) 11.7 - 14.7 seconds INR 1.3 <=5.9 Specimen Performing Laboratory Blood - Arm, Left [address] [address] Narrative RECOMMENDED COUMADIN/WARFARIN INR THERAPY RANGES STANDARD [...] Specimen Performing Laboratory Blood - Arm, Left [address] [address] CBC (Hemogram only) (03/21/2018 3:21 AM)Only the [...] Specimen Performing Laboratory Blood - Arm, Right [address] [address] Hepatitis B Panel (03/20/2018 12:12 PM) Component Value Ref Range Hep B Core Total Ab Nonreactive Nonreactive Hep B S Ab 133.0 (H) <8.0 mIU/mL Comment: Testing performed at [facility]. See attach result for further interpretation. hepatitis B Surface Ag Nonreactive Nonreactive Specimen Performing Laboratory Blood - Central Venous Line [address] [address] Hepatitis C antibody (03/20/2018 12:12 PM) Component Value Ref Range Hepatitis C Ab Nonreactive Nonreactive Specimen Performing Laboratory Blood - Central Venous Line [address] [address] TSH/Free T4 If Indicated (03/20/2018 5:39 AM) Component Value Ref Range TSH 7.12 (H) 0.35 - 4.94 uIU/mL Specimen Performing Laboratory Blood [address] [address] T4, free (03/20/2018 5:39 AM) Component Value Ref Range Free T4 0.67 (L) 0.70 - 1.48 ng/dL Specimen Performing Laboratory Blood [address] [address] Prepare plasma (03/19/2018 11:54 PM)Only the most recent of2 resultswithin the time period is included. Component Value Ref Range Unit ABO A UNIT NUMBER [id number] Status TRANSFUSED Blood Bank Product FFP PRODUCT CODE C0056A82 Unit ABO A UNIT NUMBER [id number] Status TRANSFUSED Blood Bank Product FFP PRODUCT CODE [id number] Specimen Performing Laboratory Blood SAFETRACE TX PTH, intact (03/19/2018 5:29 AM) Component Value Ref Range PTH 690.0 (H) 8.5 - 72.5 pg/mL Specimen Performing Laboratory Blood - Central Venous Line [address] [address] Vancomycin level, random (03/19/2018 5:29 AM)Only the most recent of2 resultswithin the time period is included. Component Value Ref Range Vancomycin Rm 14.4 ug/mL Specimen Performing Laboratory Blood - Central Venous Line [address] [place] [address] Narrative Reference Range: No Normals Calcium, Ionized (03/18/2018 9:15 AM)Only the most recent of3 resultswithin the time period is included. Component Value Ref Range Calcium, Ion 0.94 (L) 1.12 - 1.27 mmol/L pH, Blood 7.48 Specimen Performing Laboratory Blood [place] [address] aPTT (03/18/2018 8:37 AM)Only the most recent of2 resultswithin the time period is included. Component Value Ref Range PTT 38.9 (H) 22.5 - 36.0 seconds Specimen Performing Laboratory Blood [place] [address] D-dimer (03/18/2018 8:37 AM)Only the most recent of2 resultswithin the time period is included. Component Value Ref Range D-Dimer, Quant 3.18 (H) <0.50 MG/L FEU Specimen Performing Laboratory Blood - Central Venous Line [address] [address] Narrative Intended Use: The D-Dimer Assay can [...] - 295 mOsm/kg Specimen Performing Laboratory Blood [address] [address] Transfusion Reaction Investigation (03/18/2018 4:06 AM) Component Value Ref Range TRANSFUSION RX INVESTIGATION(ADDY) SEE COMMENTComment: Anaphylactoid reaction vs hypocalcemic response on TPE. Patient promptly recovered post fluid bolus. No special precautions required for future transfusions,Electronic Signature: Yuval Carmichael M.D. Specimen [place] [address] Transfuse plasma (03/18/2018 3:56 AM)Urea Nitrogen, random urine (03/18/2018 2 :20 AM) Component Value Ref Range Urea Nitrogen, Ur 298 mg/dL Specimen Performing Laboratory Urine - Urine, [place] [address] Narrative Reference Range: No Normals Sodium, random urine (03/18/2018 2:20 AM) Component Value Ref Range Sodium Urine 57 meq/L Specimen Performing Laboratory Urine - Urine, [place] [address] Narrative Reference Range: No Normals Potassium, random urine (03/18/2018 2:20 AM) Component Value Ref Range Potassium Urine 41.5 meq/L Specimen Performing Laboratory Urine - Urine, [place] [address] Narrative Reference Range: No Normals Osmolality, urine (03/18/2018 2:20 AM) Component Value Ref Range Osmolality, Ur 316 40 - 1400 mOsm/kg Specimen Performing Laboratory Urine - Urine, [place] [address] Creatinine, random urine (03/18/2018 2:20 AM)Only the most recent of2 resultswithin the time period is included. Component Value Ref Range Creatinine, Ur 36.3 mg/dL Specimen Performing Laboratory Urine - Urine, [place] [address] Narrative Reference Range: No Normals VWF Protease (ADAMTS-13)Activity (03/18/2018 2:19 AM) Component Value Ref Range VWF Protease Profile Refer to individaul VWF Protease Activity and Inhibitor results. Specimen Performing Laboratory Blood Procalcitonin (03/18/2018 1:27 AM) Component Value Ref Range Procalcitonin 8.65 (H) <0.05 ng/mL Specimen [place] [address] Narrative SEPSIS RISK (ng/mL) Low:0.05-0.50 Intermediate: 0.51-2.00 High: >=2.01 ABORH, manual (03/18/2018 12:59 AM) Component Value Ref Range ABO Grouping A Rh Factor POS Specimen Performing Laboratory Blood [address] [address] Fibrinogen (03/18/2018 12:59 AM) Component Value Ref Range Fibrinogen 466 (H) 225 - 434 mg/dl Specimen Performing Laboratory Blood [address] [address] Biopsy Bone Marrow (03/17/2018 3:01 PM) Component Value Ref Range Anatomic Case# [id number] Ordering Physician jordan Sultana m.d. Performing Physician Jordan Sultana m.d. Clot Rec'd? Yes Biopsy Rec'd? Yes Rec'd for Culture? No Rec'd for Flow? Yes Rec'd for Cytogenetics? Yes Rec'd for Molecular Genetics? No Specimen Performing Laboratory Bone Marrow - Iliac Crest, Right [facility] [address] [place] [address] Flow Cytometry Requisition (03/17/2018 3:00 PM) Component Value Ref Range Flow Cytometry See Separate Report Case # [id number] Specimen Performing Laboratory Bone Marrow [address] [address] Flow Cytometry (03/17/2018 3:00 PM) Component Value Ref Range Case Report Flow Cytometry Report Case: [id number] Authorizing Provider:Jordan Sultana MD Collected: 03/17/2018 1500 Ordering Location: [address] Med/SurgReceived: 03/17/2018 [facility] Pathologist: Doug Lee MD Specimen:Other Flow Interpretation [...] the bone marrow biopsy report([id number]). CPT Code(s) 06545 CLINICAL HISTORY 53 wf with h/o right breast ca s/p surgery and chemo xrt in 2013 found to have recurrence with extensive metastases, started on carboplatin and gemcitabine in October 2017, transferred from [facility] for management of MAHA with REJI. SPECIMEN SOURCE BONE MARROW ASPIRATE CELLULAR BIOMARKER ANALYSIS CD8, surface-[place], CD56, surface-Lambda, CD5, CD19, CD10, CD3, CD20, CD4, CD45, CD14, CD13, CD33, CD117, CD34, cKappa, cLambda , CD38, CD138 IMMUNOPHENOTYPIC FINDINGS Specimen Viability: 92.4%Number of Events Acquired: [id number] The following populations are identified: Blasts: the [...] developed and their performance characteristics determined by [facility] They have not been cleared or approved by the U.S. Food and Drug Administration. The FDA has determined that such clearance or approval is not necessary. It should not be regarded as investigational or for research. This laboratory is certified under the Clinical Laboratory Improvement Amendments of 1988 ("CLIA") as qualified to perform high-complexity clinical testing. Specimen Performing Laboratory Other [address] [address] Bone Marrow Exam (03/17/2018 2:57 PM) Component Value Ref Range Case Report Bone Marrow Pathology Report Case: [id number] Authorizing Provider:Jordan Sultana MD Collected: 03/17/2018 5824 Ordering Location: [address] Med/SurgReceived: 03/17/2018 9998 Pathologist: Doug Lee MD Specimens: A) - Iliac, Right B) - Iliac, Right C) - Iliac, Right ADDENDUM This addendum is created to report the [employer] results for the Oncologic chromosomal study: There is no change to the original diagnosis. Oncologic Chromosomal Study is Normal. Please see attached scanned [employer] reports for details. Javier Lee MD DIAGNOSIS [...] ANEMIA -THROMBOCYTOPENIA Signing Pathologist Direct Phone Line: [phone] COMMENT Bone marrow biopsy evaluation was performed [...] as an addendum when available. CPT Code(s) 40018; 51877; 13822 x 2; 62033; 80718 69081 x 1; 90428 x11 CLINICAL HISTORY Primary malignant neoplasm of [...] some erythroid precursors. CD138:Highlights few plasma cells [place]:Highlights polyclonal plasma cells Lambda:Highlights polyclonal plasma cells [...] developed and its performance characteristics determined by [facility], Pathology Laboratory. It has not [...] 5.2, CD3, CD20, CD34, CD61, CD117, CD138, [place], Lambda, E-Cadherin. Specimen Performing Laboratory Bone Marrow - Iliac, Right [facility] [address] [place] [address] CT Biopsy/Aspiration/Injection (03/17/2018 2:41 PM) Specimen Performing Laboratory [facility] Narrative FINAL REPORT PROCEDURE: CT-guided bone marrow biopsy DOSE REDUCTION: The examination was performed according to departmental dose-optimization program which includes automated exposure control, adjustment of the mA and/or kV according to patient size and/or use of iterative reconstruction technique. Clinical History: Pancytopenia Customer Experience Associate: Marce Conscious sedation: Versed 1 mg, fentanyl [...] was immediately removed and provided to the certified hyperbaric technologist. Subsequently a core biopsy was obtained using the outer sheath. The needle and sheath were removed. Postprocedure CT evaluation of the area revealed no significant hematoma. Patient tolerated the procedure well and remained hemodynamically stable throughout. IMPRESSION: Successful and uncomplicated CT-guided bone marrow aspiration and core biopsy. Signed: Jordan Sultana MD Report Verified Date/Time:03/17/2018 17:06:03 Reading Location: [facility] Radiology Reading Room Procedure Note Interface, External Ris In - 03/17/2018 5:08 PM CDT FINAL REPORT PROCEDURE: CT-guided bone marrow biopsy DOSE REDUCTION: The examination was performed according to departmental dose-optimization program which includes automated exposure control, adjustment of the mA and/or kV according to patient size and/or use of iterative reconstruction technique. Clinical History: Pancytopenia Customer Experience Associate: Marce Conscious sedation: Versed 1 mg, fentanyl [...] was immediately removed and provided to the certified hyperbaric technologist. Subsequently a core biopsy was obtained using the outer sheath. The needle and sheath were removed. Postprocedure CT evaluation of the area revealed no significant hematoma. Patient tolerated the procedure well and remained hemodynamically stable throughout. IMPRESSION: Successful and uncomplicated CT-guided bone marrow aspiration and core biopsy. Signed: Jordan Sultana MD Report Verified Date/Time: 03/17/2018 17:06:03 Reading Location: [facility] Radiology Reading Room chest 2 views [...] MD Report Verified Date/Time:03/17/2018 13:39:16 Reading Location: [facility] Radiology Reading Room Procedure Note Interface, [...] Report Verified Date/Time: 03/17/2018 13:39:16 Reading Location: [facility] Radiology Reading Room Chromosomes Cancer Study (03/17/2018 7:46 AM) Component Value Ref Range Scan Result Specimen Performing Laboratory Bone Marrow [facility] [address] [facility] [place] [address] PARVOVIRUS B19 IGM (03/17/2018 6:02 AM) Component [...] PCR. Specimen Performing Laboratory Blood [facility] [address] [place] [address] Narrative Performing Lab *[facility] [address] [place] [address] Susannah Cherry MD PARVOVIRUS B19 IGG (03/17/2018 6:02 AM) Component Value Ref Range Parvovirus B19 Igg 0.6 Comment: REFERENCE RANGE: <0.9 INTERPRETIVE CRITERIA: <0.9 Negative 0.9 - 1.1 Equivocal >1.1 Positive IgG persists for years and provides life-long immunity. To diagnose current infection, consider Parvovirus B19 DNA, PCR. Specimen Performing Laboratory Blood [facility] [address] [place] [address] Narrative Performing Lab *[facility] [address] [place] [address] Susannah Cherry MD Parvovirus B19 antibodies (IgG, IgM) (03/17/2018 6:02 AM) Component Value Ref Range Parvovirus Ab Profile. Refer to individual Parvovirus B19 IgG and Igm results Specimen Performing Laboratory Blood [facility] [address] [place] [address] Blood gas, arterial (03/17/2018 4:53 AM) Component [...] Performing Laboratory Blood, Arterial - Arm, Right [facility] [address] [place] [address] Protein, random urine (03/16/2018 10:45 PM) Component Value Ref Range Protein, Urine 432 (H) 0 - 14 mg/dL Specimen Performing Laboratory Urine [facility] [address] [place] [address] Urine Protein Electrophoresis, random (03/16/2018 10:45 PM) Component Value Ref Range Protein, Urine 412 (H) 0 - 14 mg/dL Albumin %, Urine 56.3 % Globulin %, Urine 43.7 % UPEP,ID No monoclonal bands detected. Pathologist: Barbie Mccollum MD (electronic signature) Specimen Performing Laboratory Urine [address] [address] Urine Immunofixation, random (03/16/2018 10:45 PM) Component Value Ref Range Protein, Urine 412 (H) 0 - 14 mg/dL Albumin %, Urine 56.3 % Globulin %, Urine 43.7 % URINE JUDSON ID No monoclonal proteins or monoclonal free light chains detected. Pathologist: Barbie Mccollum MD (electronic signature) Specimen Performing Laboratory Urine [address] [address] Urinalysis w/Microscopic (03/16/2018 10:45 PM)Only the most recent of4 resultswithin the time period is included. Component Value Ref Range Color, UA Yellow Clarity, UA Clear Specific [place], UA 1.020 1.001 - 1.035 pH, UA [...] /LPF Specimen Source Specimen Performing Laboratory Urine [facility] [address] [place] [address] Peripheral Blood Smear - Path Review (03/16/2018 9:47 PM) Component Value Ref Range Pathologist Review Normochromic normocytic anemia with rare schistocytes seen (1-2/ HPF). WBCs normal in number and morphology. Thrombocytopenia with a few large forms. Pathologist: Michelle Yu M.D. (electronic signature) Specimen Performing Laboratory Blood [facility] [address] [place] [address] SARAH Titer & Pattern (03/16/2018 9:47 PM) Component Value Ref Range SARAH Titer >=1:2560 SARAH Pattern Speckled Specimen Performing Laboratory Blood [address] [address] Glomerular basement membrane antibody (03/16/2018 9:47 PM) Component Value Ref Range GBM Ab <1.0 <1.0 AI Comment: Interpretation: < 1.0 AI No Antibody Detected > OR=1.0 AI Antibody Detected Specimen Performing Laboratory Blood [facility] [address] [place] [address] Narrative Performing Lab [facility] [address] [place] [address] Eusebia Jolly MD, PhD, LUIS ALBERTO Anti-Neutrophil Cytoplasmic Ab (ANCA) (03/16/2018 9:47 PM) Component Value Ref Range Proteinase-3 Ab <1.0 <1.0 AI Comment: <1.0 AI No Antibody Detected > or=1.0 AI Antibody Detected Autoantibodies to proteinase-3 (LA-3) are accepted as characteristic for granulomatosis with polyangiitis (GPA, Amber's), and are detectable in 95% of the histologically proven cases. The cytoplasmic IFA pattern, (c-ANCA), is based largely on autoantibody to LA-3 which serves as the primary antigen. These [...] Specimen Performing Laboratory Blood [facility] [address] [address] Narrative Performing Lab [facility] [address] [address] Eusebia Jolly MD, PhD, LUIS ALBERTO Immunofixation electrophoresis (JUDOSN) (03/16/2018 9:47 PM) Component Value Ref Range IgG 2008 (H) 540 - 1822 mg/dL IgA 37 (L) 63 - 484 mg/dL IgM 673 (H) 22 - 293 mg/dL Serum JUDSON Identification No monoclonal proteins detected. Polyclonal elevation of gamma globulins. Pathologist: Barbie Mccollum MD (electronic signature) Specimen Performing Laboratory Blood [facility] [address] [address] Bilirubin, total and direct (03/16/2018 9:47 PM) Component Value Ref Range Total Bilirubin 2.1 (H) 0.1 - 1.2 mg/dL Bilirubin, Direct 1.1 (H) 0.0 - 0.4 mg/dL Specimen Performing Laboratory Blood [facility] [address] [place] [address] Complement Component C3 (03/16/2018 9:47 PM) Component Value Ref Range C3 Complement 94 82 - 193 mg/dL Specimen Performing Laboratory Blood [address] [address] Complement Component C4 (03/16/2018 9:47 PM) Component Value Ref Range C4 Complement 22 15 - 57 mg/dL Specimen Performing Laboratory Blood [address] [address] Anti-Nuclear Antibody (SARAH) (03/16/2018 9:47 PM) Component Value Ref Range SARAH Positive (A) Negative Specimen Performing Laboratory [address] [address] Narrative Test performed by IFA method. Protein [...] - 8.3 gm/dL Specimen Performing Laboratory Blood [address] [address] Ketone, blood (03/16/2018 9:47 PM) Component Value Ref Range Ketones, Blood 0.3 <0.4 mmol/L Specimen Performing Laboratory [facility] [address] [place] [address] ED ECG Interpretation (03/16/2018 11:25 AM) Luis Fernando Stuart DO 03/16/2018 11:25 AM ECG/EKG Interpretation Date/Time: 03/16/2018 10:21 AM Performed by: LUIS FERNANDO KUMAR Authorized by: LUIS FERNANDO KUMAR The ECG was interpreted by ED physician. This ECG was not compared with previous ECG(s).The ECG is interpreted as sinus tachycardia. Rate is tachycardic. Heart rate is [address] segments normal. [place] is normal. Clinical Impression: non-specific ECGECG reviewed and does not meet STEMI criteria. Patient tolerance: Patient tolerated the procedure well with no immediate complications Critical Care (03/16/2018 11:25 AM) Narrative Luis Fernando Kuamr, DO 03/16/2018 11:25 AM Critical Care Performed by: LUIS FERNANDO KUMAR Authorized by: LUI SFERNANDO KUMAR Total critical care time: 60 minutes [...] Rh Factor POS Specimen Per[place] [address] Manual Differential (03/16/2018 10:02 AM)Only the most recent of4 resultswithin the time period is included. Component Value Ref Range Total Counted WBC Morphology Normal Platelet Morphology Normal Schistocytes 1+ few Anisocytosis 1+ few Macrocytes 1+ few Microcytes 1+ few Poikilocytes 1+ few Polychromasia 1+ few Specimen Performing Laboratory Blood [facility] [address] [place] [address] Creatine Kinase (CK), Total and MB (not available at [facility]) (2017 10:02 AM) Component Value Ref Range Total CK 125 25 - 235 U/L CK-MB 0.9 0.0 - 4.9 ng/mL MB Relative Index 0.7 % Specimen Performing Laboratory [facility] [address] [place] [address] Narrative CK-MB Reference Range: <5 Normal 5-10 Borderline >10Abnormal Respiratory Panel SL (12/11/2017 10:13 AM) Component Value Ref Range [...] Specimen Performing Laboratory Nasopharyngeal - Nasopharyngeal Swab [address] [address] Vancomycin level, trough (12/11/2017 4:58 AM)Only the most recent of2 resultswithin the time period is included. Component Value Ref Range Vancomycin Tr 11.7 10.0 - 20.0 ug/mL Specimen Performing Laboratory Blood [facility] [address] [place] [address] Urine culture (12/08/2017 7:03 PM)Only the most recent of2 resultswithin the time period is included. Component Value Ref Range Result No growth Specimen Performing Laboratory Urine - Urine, Clean Catch [facility] [address] [place] [address] brain without IV contrast (10/20/2017 4:58 [...] MD Report Verified Date/Time:10/20/2017 17:12:46 Reading Location: [facility] Reading Room Procedure Note Interface, [...] Report Verified Date/Time: 10/20/2017 17:12:46 Reading Location: [facility] Reading Room abdomen pelvis with IV contrast (10/20/2017 9:00 AM) Specimen Performing Laboratory [facility] Narrative FINAL REPORT INDICATION: 52-year-old female with [...] MD Report Verified Date/Time:10/20/2017 09:17:32 Reading Location: [address] Ortho Consult Reading Room Procedure Note Interface, [...] Report Verified Date/Time: 10/20/2017 09:17:32 Reading Location: [address] Consult Reading Room Influenza antigen A & B (Rapid) (10/20/2017 7:26 AM) Component Value Ref Range Rapid Influenza A Antigen Negative Negative, Inconclusive Rapid influenza B Antigen Negative Negative, Inconclusive Specimen Performing Laboratory Nasopharyngeal - Nasopharyngeal Swab [facility] [address] [place] [address] Lipase (10/20/2017 7:23 AM) Component Value Ref Range Lipase 42 6 - 51 U/L Specimen Performing Laboratory Blood [facility] [address] [place] [address] after 05/08/2017
--- OUTSIDE RECORDS SUMMARY | 2018-05-09 04:03 | XMS REPORT ---
:1965 Author Organization [facility] Address [address] [place] [address] Dr. [address] [place] [id number] Care Team Providers Name Role Phone BETTY MARTINLiam Unavailable Unavailable ALTA QUISPE Unavailable Unavailable LENORE BARRERA Unavailable Unavailable LUIS FERNANDO KUMAR Unavailable Unavailable FER SCHULZ Unavailable Unavailable JEF GO Unavailable Unavailable Problems This patient has no known problems. Allergies, Adverse Reactions, Alerts This patient has no known allergies or adverse reactions. Medications This patient has no known medications. Results Test Description Test Time Test Comments Text Results Atomic Results Result Comments IRON, TIBC, % SAT. (WITHOUT FERRITIN) 2018-05-06 10:12:00 Test Item Value Reference Range Comments IRON (BEAKER) (test ynub=331) 49 ug/dL 40-160 TOTAL IRON BINDING CAPACITY (BEAKER) (test xqcm=762) 216 ug/dL 250-450 IRON % SATURATION (2) (BEAKER) (test auat=6423) 23 % 20-55 BASIC METABOLIC [id number] 09:16:00 Test Item Value Reference Range Comments SODIUM (BEAKER) (test 133 meq/L 135-148 rzma=903) POTASSIUM (BEAKER) (test 3.2 meq/L 3.6-5.5 ypxh=516) CHLORIDE (BEAKER) (test 97 meq/L 98-106 jyog=451) CO2 (BEAKER) (test 24 meq/L 20-29 ites=300) BLOOD UREA NITROGEN 16 mg/dL 10-26 (BEAKER) (test nxkh=473) CREATININE (BEAKER) (test 2.18 mg/dL 0.50-1.20 yrgj=557) GLUCOSE RANDOM (BEAKER) 130 mg/dL 70-110 (test egai=424) CALCIUM (BEAKER) (test 8.4 mg/dL 8.5-10.5 xlpd=749) EGFR (BEAKER) (test 24 mL/min/1.73 sq m ESTIMATED GFR IS NOT tznt=0063) ACCURATE CREATININE CLEARANCE IN PREDICTING GLOMERULAR FILTRATION RATE. ESTIMATED GFR IS NOT APPLICABLE FOR DIALYSIS PATIENTS. [id number] 06:45:00 Test Item Value Reference Range Comments FERRITIN (BEAKER) (test qyii=410) 4333 ng/mL 10-291 CBC W/PLT COUNT & AUTO [id number] 05:54:00 Test Item Value Reference Range Comments WHITE BLOOD CELL COUNT (BEAKER) (test purs=555) 5.2 K/ L 4.0-10.0 RED BLOOD CELL COUNT (BEAKER) (test ziyx=973) 2.63 M/ L 4.00-5.00 HEMOGLOBIN (BEAKER) (test ubpw=081) 8.6 GM/DL 12.0-15.5 HEMATOCRIT (BEAKER) (test imbt=522) 27.2 % 36.0-46.0 MEAN CORPUSCULAR VOLUME (BEAKER) (test mhqx=210) 103.4 fL 82.0-99.0 MEAN CORPUSCULAR HEMOGLOBIN (BEAKER) (test 32.7 pg 27.0-33.0 qlck=605) MEAN CORPUSCULAR HEMOGLOBIN CONC (BEAKER) (test 31.6 GM/DL 32.0-36.0 rryu=372) RED CELL DISTRIBUTION WIDTH (BEAKER) (test 19.9 % 12.0-15.0 ruqu=752) PLATELET COUNT (BEAKER) (test bwtz=848) 135 K/CU MM 150-430 MEAN PLATELET VOLUME (BEAKER) (test etpf=866) 11.1 fL 6.0-11.5 NUCLEATED RED BLOOD CELLS (BEAKER) (test 0 /100 WBC 0-0 hdnm=955) NEUTROPHILS RELATIVE PERCENT (BEAKER) (test 80 % rzwy=248) LYMPHOCYTES RELATIVE PERCENT (BEAKER) (test 10 % hhnl=621) MONOCYTES RELATIVE PERCENT (BEAKER) (test 8 % cvew=719) EOSINOPHILS RELATIVE PERCENT (BEAKER) (test 1 % rppq=508) BASOPHILS RELATIVE PERCENT (BEAKER) (test 0 % xbjb=500) NEUTROPHILS ABSOLUTE COUNT (BEAKER) (test 4.17 K/ L 1.80-8.00 bjau=845) LYMPHOCYTES ABSOLUTE COUNT (BEAKER) (test 0.51 K/ L 1.48-4.50 rlnn=121) MONOCYTES ABSOLUTE COUNT (BEAKER) (test 0.41 K/ L 0.00-1.30 dglq=128) EOSINOPHILS ABSOLUTE COUNT (BEAKER) (test 0.04 K/ L 0.00-0.50 gzko=550) BASOPHILS ABSOLUTE COUNT (BEAKER) (test 0.02 K/ L 0.00-0.20 ettt=392) IMMATURE GRANULOCYTES-RELATIVE PERCENT (BEAKER) 1 % 0-0 (test dmmx=2967) HEMOGLOBIN [id number] 05:50:00 Test Item Value Reference Range Comments HEMOGLOBIN A1C (BEAKER) (test crmz=244) 4.6 % 4.3-6.1 HEMOGLOBIN [id number] 05:50:00 Test Item Value Reference Range Comments HEMOGLOBIN A1C (BEAKER) (test kgjd=632) 4.6 % 4.3-6.1 TROPONIN [id number] 19:01:00 Test Item Value Reference Range Comments TROPONIN I (BEAKER) (test nehp=771) 0.11 ng/mL 0.00-0.15 Troponin I (TnI) levels must [...] acute neurological disease, and persistent tachyarrhythmia.COMPREHENSIVE METABOLIC [id number] 18:55:00 Test Item Value Reference Range Comments TOTAL PROTEIN (BEAKER) 7.9 gm/dL 6.0-8.5 (test hhso=193) ALBUMIN (BEAKER) (test 3.8 g/dL 3.5-5.0 tatn=4578) ALKALINE PHOSPHATASE 73 U/L 30-115 (BEAKER) (test slnf=616) BILIRUBIN TOTAL (BEAKER) 0.7 mg/dL 0.1-1.2 (test uugs=994) SODIUM (BEAKER) (test 130 meq/L 135-148 ormm=088) POTASSIUM (BEAKER) (test 4.5 meq/L 3.6-5.5 uygh=148) CHLORIDE (BEAKER) (test 93 meq/L 98-106 ywdp=546) CO2 (BEAKER) (test 19 meq/L 20-29 yoxi=705) BLOOD UREA NITROGEN 56 mg/dL 10-26 (BEAKER) (test tuhc=442) CREATININE (BEAKER) (test 4.74 mg/dL 0.50-1.20 pduh=554) GLUCOSE RANDOM (BEAKER) 165 mg/dL 70-110 (test pfrm=842) CALCIUM (BEAKER) (test 8.7 mg/dL 8.5-10.5 kzxm=453) AST (SGOT) (BEAKER) (test 40 U/L 5-40 dqgc=526) ALT (SGPT) (BEAKER) (test 55 U/L 5-50 ddns=930) EGFR (BEAKER) (test 10 mL/min/1.73 sq m ESTIMATED GFR IS NOT hsks=7830) ACCURATE CREATININE CLEARANCE IN PREDICTING GLOMERULAR FILTRATION RATE. ESTIMATED GFR IS NOT APPLICABLE FOR DIALYSIS PATIENTS. CBC W/PLT COUNT & AUTO [id number] 18:32:00 Test Item Value Reference Range Comments WHITE BLOOD CELL COUNT (BEAKER) (test migu=316) 6.7 K/ L 4.0-10.0 RED BLOOD CELL COUNT (BEAKER) (test jthr=947) 2.68 M/ L 4.00-5.00 HEMOGLOBIN (BEAKER) (test jasr=866) 8.6 GM/DL 12.0-15.5 HEMATOCRIT (BEAKER) (test vkdw=397) 27.7 % 36.0-46.0 MEAN CORPUSCULAR VOLUME (BEAKER) (test weqk=378) 103.4 fL 82.0-99.0 MEAN CORPUSCULAR HEMOGLOBIN (BEAKER) (test 32.1 pg 27.0-33.0 krzq=192) MEAN CORPUSCULAR HEMOGLOBIN CONC (BEAKER) (test 31.0 GM/DL 32.0-36.0 ghfa=189) RED CELL DISTRIBUTION WIDTH (BEAKER) (test 19.1 % 12.0-15.0 tclm=988) PLATELET COUNT (BEAKER) (test bdjy=883) 148 K/CU MM 150-430 MEAN PLATELET VOLUME (BEAKER) (test onus=365) 10.4 fL 6.0-11.5 NUCLEATED RED BLOOD CELLS (BEAKER) (test 0 /100 WBC 0-0 cbkb=830) NEUTROPHILS RELATIVE PERCENT (BEAKER) (test 84 % bdqh=162) LYMPHOCYTES RELATIVE PERCENT (BEAKER) (test 8 % bcvo=344) MONOCYTES RELATIVE PERCENT (BEAKER) (test 7 % tjsn=456) EOSINOPHILS RELATIVE PERCENT (BEAKER) (test 0 % mpds=514) BASOPHILS RELATIVE PERCENT (BEAKER) (test 0 % wadh=805) NEUTROPHILS ABSOLUTE COUNT (BEAKER) (test 5.59 K/ L 1.80-8.00 ymgx=715) LYMPHOCYTES ABSOLUTE COUNT (BEAKER) (test 0.54 K/ L 1.48-4.50 lxge=476) MONOCYTES ABSOLUTE COUNT (BEAKER) (test 0.49 K/ L 0.00-1.30 pywt=395) EOSINOPHILS ABSOLUTE COUNT (BEAKER) (test 0.01 K/ L 0.00-0.50 btig=290) BASOPHILS ABSOLUTE COUNT (BEAKER) (test 0.03 K/ L 0.00-0.20 vfvu=601) IMMATURE GRANULOCYTES-RELATIVE PERCENT (BEAKER) 1 % 0-0 (test iwmx=0560) MARIA LUISA, THROMBIN [id number] 08:05:00Reason for exam:->Thrombin injection to right SFAFINAL REPORT Ultrasound guided thrombin injection, 04/28/2018. 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 Modality: Fluoroscopy. Sedation: None. Parks Recreation Director: Zee. Master [employer] Glass Technician: Jorge. Approach: Right inguinal region. Estimated blood loss: < 10 cc. Specimen: None. Fluoroscopy Time: 0.7 min. Dose (Ka,r): 15.8 mGy. Technique : Informed written consent was [...] Contrast was injected through the micropuncture 4 [place] sheath for a DSA run to evaluate [...] MDReport Verified Date/Time: 04/29/2018 08:05:43 Reading Location: [facility] Radiology Reading Room BASIC METABOLIC [id number] 04:40:00 Test Item Value Reference Range Comments SODIUM (BEAKER) (test 131 meq/L 136-145 kxjp=293) POTASSIUM (BEAKER) (test 4.5 meq/L 3.5-5.1 Specimen slightly ekln=444) hemolyzed CHLORIDE (BEAKER) (test 100 meq/L 98-107 nhya=216) CO2 (BEAKER) (test 22 meq/L 22-29 zeer=275) BLOOD UREA NITROGEN 29 mg/dL 7-21 (BEAKER) (test hgjm=033) CREATININE (BEAKER) (test 3.52 mg/dL 0.57-1.25 Specimen slightly ikhz=194) hemolyzed GLUCOSE RANDOM (BEAKER) 110 mg/dL 70-105 (test igmy=317) CALCIUM (BEAKER) (test 8.6 mg/dL 8.4-10.2 tbzz=161) EGFR (BEAKER) (test 14 mL/min/1.73 sq m ESTIMATED GFR IS NOT dlwp=4079) ACCURATE CREATININE CLEARANCE IN PREDICTING GLOMERULAR FILTRATION RATE. ESTIMATED GFR IS NOT APPLICABLE FOR DIALYSIS PATIENTS. [id number] 04:37:00 Test Item Value Reference Range Comments MAGNESIUM (BEAKER) (test 2.0 mg/dL 1.6-2.6 Specimen slightly hemolyzed oaod=311) [id number] 04:37:00 Test Item Value Reference Range Comments PHOSPHORUS (BEAKER) (test 3.1 mg/dL 2.3-4.7 Specimen slightly hemolyzed vvmu=916) CBC W/PLT COUNT & AUTO [id number] 04:27:00 Test Item Value Reference Range Comments WHITE BLOOD CELL COUNT (BEAKER) (test sunh=702) 4.0 K/ L 3.5-10.5 RED BLOOD CELL COUNT (BEAKER) (test hljq=300) 3.04 M/ L 3.93-5.22 HEMOGLOBIN (BEAKER) (test nfbu=726) 9.5 GM/DL 11.2-15.7 HEMATOCRIT (BEAKER) (test jbih=901) 30.9 % 34.1-44.9 MEAN CORPUSCULAR VOLUME (BEAKER) (test vgsz=307) 101.6 fL 79.4-94.8 MEAN CORPUSCULAR HEMOGLOBIN (BEAKER) (test 31.3 pg 25.6-32.2 lfik=282) MEAN CORPUSCULAR HEMOGLOBIN CONC (BEAKER) (test 30.7 GM/DL 32.2-35.5 ptle=523) RED CELL DISTRIBUTION WIDTH (BEAKER) (test 18.8 % 11.7-14.4 bipe=821) PLATELET COUNT (BEAKER) (test qvlz=898) 139 K/CU MM 150-450 MEAN PLATELET VOLUME (BEAKER) (test crsl=557) 11.3 fL 9.4-12.3 NUCLEATED RED BLOOD CELLS (BEAKER) (test 0 /100 WBC 0-0 sofq=629) NEUTROPHILS RELATIVE PERCENT (BEAKER) (test 81 % tqcd=727) LYMPHOCYTES RELATIVE PERCENT (BEAKER) (test 10 % djcu=563) MONOCYTES RELATIVE PERCENT (BEAKER) (test 7 % lccj=230) EOSINOPHILS RELATIVE PERCENT (BEAKER) (test 1 % anye=507) BASOPHILS RELATIVE PERCENT (BEAKER) (test 1 % zhkn=527) NEUTROPHILS ABSOLUTE COUNT (BEAKER) (test 3.25 K/ L 1.56-6.13 svze=725) LYMPHOCYTES ABSOLUTE COUNT (BEAKER) (test 0.38 K/ L 1.18-3.74 wcap=332) MONOCYTES ABSOLUTE COUNT (BEAKER) (test 0.28 K/ L 0.24-0.36 tjkf=254) EOSINOPHILS ABSOLUTE COUNT (BEAKER) (test 0.04 K/ L 0.04-0.36 qoem=870) BASOPHILS ABSOLUTE COUNT (BEAKER) (test 0.02 K/ L 0.01-0.08 muik=613) IMMATURE GRANULOCYTES-RELATIVE PERCENT (BEAKER) 1 % 0-1 (test hazj=7059) TROPONIN [id number] 10:14:00 Test Item Value Reference Range Comments TROPONIN I (BEAKER) (test zmxq=468) 0.08 ng/mL 0.00-0.03 Troponin I (TnI) levels [...] acute neurological disease, and persistent tachyarrhythmia.BASIC METABOLIC [id number] 07:57:00 Test Item Value Reference Range Comments SODIUM (BEAKER) (test 128 meq/L 136-145 rkka=557) POTASSIUM (BEAKER) (test 4.7 meq/L 3.5-5.1 rfwl=766) CHLORIDE (BEAKER) (test 94 meq/L 98-107 mhrm=479) CO2 (BEAKER) (test 22 meq/L 22-29 gtwk=247) BLOOD UREA NITROGEN 49 mg/dL 7-21 (BEAKER) (test ctzv=631) CREATININE (BEAKER) (test 4.78 mg/dL 0.57-1.25 feiq=703) GLUCOSE RANDOM (BEAKER) 88 mg/dL 70-105 (test vdmw=928) CALCIUM (BEAKER) (test 8.4 mg/dL 8.4-10.2 qggo=607) EGFR (BEAKER) (test 10 mL/min/1.73 sq m ESTIMATED GFR IS NOT ysmh=4917) ACCURATE CREATININE CLEARANCE IN PREDICTING GLOMERULAR FILTRATION RATE. ESTIMATED GFR IS NOT APPLICABLE FOR DIALYSIS PATIENTS. [id number] 07:41:00 Test Item Value Reference Range Comments PHOSPHORUS (BEAKER) (test dkbk=631) 2.8 mg/dL 2.3-4.7 [id number] 07:41:00 Test Item Value Reference Range Comments MAGNESIUM (BEAKER) (test leay=020) 1.8 mg/dL 1.6-2.6 CBC W/PLT COUNT & AUTO [id number] 07:25:00 Test Item Value Reference Range Comments WHITE BLOOD CELL COUNT (BEAKER) (test sflv=273) 2.9 K/ L 3.5-10.5 RED BLOOD CELL COUNT (BEAKER) (test nzlo=689) 2.89 M/ L 3.93-5.22 HEMOGLOBIN (BEAKER) (test xokp=464) 9.1 GM/DL 11.2-15.7 HEMATOCRIT (BEAKER) (test gfga=792) 29.2 % 34.1-44.9 MEAN CORPUSCULAR VOLUME (BEAKER) (test cucx=320) 101.0 fL 79.4-94.8 MEAN CORPUSCULAR HEMOGLOBIN (BEAKER) (test 31.5 pg 25.6-32.2 ypal=935) MEAN CORPUSCULAR HEMOGLOBIN CONC (BEAKER) (test 31.2 GM/DL 32.2-35.5 pcjp=225) RED CELL DISTRIBUTION WIDTH (BEAKER) (test 18.5 % 11.7-14.4 omxz=696) PLATELET COUNT (BEAKER) (test vokv=271) 110 K/CU MM 150-450 MEAN PLATELET VOLUME (BEAKER) (test vrxf=133) 11.3 fL 9.4-12.3 NUCLEATED RED BLOOD CELLS (BEAKER) (test 0 /100 WBC 0-0 jpob=711) NEUTROPHILS RELATIVE PERCENT (BEAKER) (test 77 % ugss=517) LYMPHOCYTES RELATIVE PERCENT (BEAKER) (test 12 % ytfi=328) MONOCYTES RELATIVE PERCENT (BEAKER) (test 9 % reax=720) EOSINOPHILS RELATIVE PERCENT (BEAKER) (test 2 % dbba=870) BASOPHILS RELATIVE PERCENT (BEAKER) (test 0 % tbwy=362) NEUTROPHILS ABSOLUTE COUNT (BEAKER) (test 2.20 K/ L 1.56-6.13 wnof=645) LYMPHOCYTES ABSOLUTE COUNT (BEAKER) (test 0.33 K/ L 1.18-3.74 vepr=731) MONOCYTES ABSOLUTE COUNT (BEAKER) (test 0.26 K/ L 0.24-0.36 vtqh=981) EOSINOPHILS ABSOLUTE COUNT (BEAKER) (test 0.05 K/ L 0.04-0.36 jekx=415) BASOPHILS ABSOLUTE COUNT (BEAKER) (test 0.01 K/ L 0.01-0.08 wbla=822) IMMATURE GRANULOCYTES-RELATIVE PERCENT (BEAKER) 0 % 0-1 (test wqnm=1515) CBC W/PLT COUNT & AUTO [id number] 14:22:00 Test Item Value Reference Range Comments WHITE BLOOD CELL COUNT (BEAKER) (test icju=304) 2.4 K/ L 3.5-10.5 RED BLOOD CELL COUNT (BEAKER) (test csyr=679) 2.75 M/ L 3.93-5.22 HEMOGLOBIN (BEAKER) (test axpp=555) 8.8 GM/DL 11.2-15.7 HEMATOCRIT (BEAKER) (test jecn=969) 27.8 % 34.1-44.9 MEAN CORPUSCULAR VOLUME (BEAKER) (test myak=735) 101.1 fL 79.4-94.8 MEAN CORPUSCULAR HEMOGLOBIN (BEAKER) (test 32.0 pg 25.6-32.2 tank=883) MEAN CORPUSCULAR HEMOGLOBIN CONC (BEAKER) (test 31.7 GM/DL 32.2-35.5 qfnf=617) RED CELL DISTRIBUTION WIDTH (BEAKER) (test 18.9 % 11.7-14.4 diuj=400) PLATELET COUNT (BEAKER) (test zqnb=230) 118 K/CU MM 150-450 MEAN PLATELET VOLUME (BEAKER) (test nihx=663) 10.8 fL 9.4-12.3 NUCLEATED RED BLOOD CELLS (BEAKER) (test 0 /100 WBC 0-0 hvwc=743) NEUTROPHILS RELATIVE PERCENT (BEAKER) (test 78 % ogpy=012) LYMPHOCYTES RELATIVE PERCENT (BEAKER) (test 11 % bhhp=437) MONOCYTES RELATIVE PERCENT (BEAKER) (test 8 % asfu=445) EOSINOPHILS RELATIVE PERCENT (BEAKER) (test 2 % zevn=066) BASOPHILS RELATIVE PERCENT (BEAKER) (test 0 % bxeb=346) NEUTROPHILS ABSOLUTE COUNT (BEAKER) (test 1.86 K/ L 1.56-6.13 aomr=879) LYMPHOCYTES ABSOLUTE COUNT (BEAKER) (test 0.27 K/ L 1.18-3.74 ckws=299) MONOCYTES ABSOLUTE COUNT (BEAKER) (test 0.19 K/ L 0.24-0.36 luug=886) EOSINOPHILS ABSOLUTE COUNT (BEAKER) (test 0.05 K/ L 0.04-0.36 kuze=452) BASOPHILS ABSOLUTE COUNT (BEAKER) (test 0.01 K/ L 0.01-0.08 imjj=244) IMMATURE GRANULOCYTES-RELATIVE PERCENT (BEAKER) 0 % 0-1 (test gkkj=1380) BASIC METABOLIC [id number] 07:59:00 Test Item Value Reference Range Comments SODIUM (BEAKER) (test 131 meq/L 136-145 ufeu=850) POTASSIUM (BEAKER) (test 4.0 meq/L 3.5-5.1 obbe=487) CHLORIDE (BEAKER) (test 96 meq/L 98-107 txfl=962) CO2 (BEAKER) (test 23 meq/L 22-29 httd=644) BLOOD UREA NITROGEN 31 mg/dL 7-21 (BEAKER) (test oeim=060) CREATININE (BEAKER) (test 3.42 mg/dL 0.57-1.25 jwwa=649) GLUCOSE RANDOM (BEAKER) 94 mg/dL 70-105 (test gtmh=886) CALCIUM (BEAKER) (test 8.8 mg/dL 8.4-10.2 edug=748) EGFR (BEAKER) (test 14 mL/min/1.73 sq m ESTIMATED GFR IS NOT mlye=6409) ACCURATE CREATININE CLEARANCE IN PREDICTING GLOMERULAR FILTRATION RATE. ESTIMATED GFR IS NOT APPLICABLE FOR DIALYSIS PATIENTS. [id number] 07:53:00 Test Item Value Reference Range Comments PHOSPHORUS (BEAKER) (test zkds=714) 3.1 mg/dL 2.3-4.7 [id number] 07:53:00 Test Item Value Reference Range Comments MAGNESIUM (BEAKER) (test owup=639) 1.8 mg/dL 1.6-2.6 CBC W/PLT COUNT & AUTO [id number] 07:42:00 Test Item Value Reference Range Comments WHITE BLOOD CELL COUNT (BEAKER) (test pboo=014) 2.6 K/ L 3.5-10.5 RED BLOOD CELL COUNT (BEAKER) (test xgqg=035) 2.89 M/ L 3.93-5.22 HEMOGLOBIN (BEAKER) (test kkuy=103) 9.0 GM/DL 11.2-15.7 HEMATOCRIT (BEAKER) (test vzwc=732) 29.1 % 34.1-44.9 MEAN CORPUSCULAR VOLUME (BEAKER) (test vkkn=390) 100.7 fL 79.4-94.8 MEAN CORPUSCULAR HEMOGLOBIN (BEAKER) (test 31.1 pg 25.6-32.2 rwrg=675) MEAN CORPUSCULAR HEMOGLOBIN CONC (BEAKER) (test 30.9 GM/DL 32.2-35.5 gbhi=104) RED CELL DISTRIBUTION WIDTH (BEAKER) (test 18.9 % 11.7-14.4 hfpi=435) PLATELET COUNT (BEAKER) (test smpq=038) 106 K/CU MM 150-450 MEAN PLATELET VOLUME (BEAKER) (test sfql=534) 11.1 fL 9.4-12.3 NUCLEATED RED BLOOD CELLS (BEAKER) (test 0 /100 WBC 0-0 cecb=042) NEUTROPHILS RELATIVE PERCENT (BEAKER) (test 77 % mqns=508) LYMPHOCYTES RELATIVE PERCENT (BEAKER) (test 10 % rwby=035) MONOCYTES RELATIVE PERCENT (BEAKER) (test 10 % hzcg=192) EOSINOPHILS RELATIVE PERCENT (BEAKER) (test 2 % afid=993) BASOPHILS RELATIVE PERCENT (BEAKER) (test 1 % wsns=187) NEUTROPHILS ABSOLUTE COUNT (BEAKER) (test 1.97 K/ L 1.56-6.13 yyvc=628) LYMPHOCYTES ABSOLUTE COUNT (BEAKER) (test 0.25 K/ L 1.18-3.74 ytak=877) MONOCYTES ABSOLUTE COUNT (BEAKER) (test 0.25 K/ L 0.24-0.36 vwhb=294) EOSINOPHILS ABSOLUTE COUNT (BEAKER) (test 0.05 K/ L 0.04-0.36 dvfx=085) BASOPHILS ABSOLUTE COUNT (BEAKER) (test 0.02 K/ L 0.01-0.08 opfb=114) IMMATURE GRANULOCYTES-RELATIVE PERCENT (BEAKER) 1 % 0-1 (test adio=4117) CBC W/PLT COUNT & AUTO [id number] 05:15:00 Test Item Value Reference Range Comments WHITE BLOOD CELL COUNT (BEAKER) (test vzsb=899) 2.8 K/ L 3.5-10.5 RED BLOOD CELL COUNT (BEAKER) (test rkbz=905) 2.86 M/ L 3.93-5.22 HEMOGLOBIN (BEAKER) (test gatn=665) 9.1 GM/DL 11.2-15.7 HEMATOCRIT (BEAKER) (test ouxg=098) 28.6 % 34.1-44.9 MEAN CORPUSCULAR VOLUME (BEAKER) (test jrro=116) 100.0 fL 79.4-94.8 MEAN CORPUSCULAR HEMOGLOBIN (BEAKER) (test 31.8 pg 25.6-32.2 rnro=622) MEAN CORPUSCULAR HEMOGLOBIN CONC (BEAKER) (test 31.8 GM/DL 32.2-35.5 chup=173) RED CELL DISTRIBUTION WIDTH (BEAKER) (test 18.8 % 11.7-14.4 yisc=639) PLATELET COUNT (BEAKER) (test rkdn=583) 80 K/CU MM 150-450 MEAN PLATELET VOLUME (BEAKER) (test fcvt=300) 11.2 fL 9.4-12.3 NUCLEATED RED BLOOD CELLS (BEAKER) (test 0 /100 WBC 0-0 twuf=018) NEUTROPHILS RELATIVE PERCENT (BEAKER) (test 76 % zses=137) LYMPHOCYTES RELATIVE PERCENT (BEAKER) (test 13 % qdiv=433) MONOCYTES RELATIVE PERCENT (BEAKER) (test 8 % tcrh=227) EOSINOPHILS RELATIVE PERCENT (BEAKER) (test 1 % pqzl=712) BASOPHILS RELATIVE PERCENT (BEAKER) (test 0 % lhdw=263) NEUTROPHILS ABSOLUTE COUNT (BEAKER) (test 2.13 K/ L 1.56-6.13 jhih=167) LYMPHOCYTES ABSOLUTE COUNT (BEAKER) (test 0.37 K/ L 1.18-3.74 ddaf=848) MONOCYTES ABSOLUTE COUNT (BEAKER) (test wzkb=029) 0.23 K/ L 0.24-0.36 EOSINOPHILS ABSOLUTE COUNT (BEAKER) (test 0.04 K/ L 0.04-0.36 iywp=242) BASOPHILS ABSOLUTE COUNT (BEAKER) (test vlnu=336) 0.01 K/ L 0.01-0.08 IMMATURE GRANULOCYTES-RELATIVE PERCENT (BEAKER) 0 % 0-1 (test hhgg=8610) BASIC METABOLIC [id number] 04:41:00 Test Item Value Reference Range Comments SODIUM (BEAKER) (test 129 meq/L 136-145 fdry=511) POTASSIUM (BEAKER) (test 5.0 meq/L 3.5-5.1 rpds=996) CHLORIDE (BEAKER) (test 96 meq/L 98-107 olog=101) CO2 (BEAKER) (test 20 meq/L 22-29 uymo=673) BLOOD UREA NITROGEN 65 mg/dL 7-21 (BEAKER) (test zxsj=091) CREATININE (BEAKER) (test 5.28 mg/dL 0.57-1.25 nmar=917) GLUCOSE RANDOM (BEAKER) 101 mg/dL 70-105 (test sdhl=801) CALCIUM (BEAKER) (test 9.0 mg/dL 8.4-10.2 dffj=382) EGFR (BEAKER) (test 9 mL/min/1.73 sq m ESTIMATED GFR IS NOT gvso=0090) ACCURATE CREATININE CLEARANCE IN PREDICTING GLOMERULAR FILTRATION RATE. ESTIMATED GFR IS NOT APPLICABLE FOR DIALYSIS PATIENTS. [id number] 04:39:00 Test Item Value Reference Range Comments PHOSPHORUS (BEAKER) (test jcjl=195) 3.4 mg/dL 2.3-4.7 [id number] 04:39:00 Test Item Value Reference Range Comments MAGNESIUM (BEAKER) (test aumi=539) 2.0 mg/dL 1.6-2.6 [id number] 23:54:00 Test Item Value Reference Range Comments HAPTOGLOBIN (BEAKER) (test tvgs=717) < mg/dL 14-258 CBC W/PLT COUNT & AUTO [id number] 23:39:00 Test Item Value Reference Range Comments WHITE BLOOD CELL COUNT (BEAKER) (test cvdb=442) 3.3 K/ L 3.5-10.5 RED BLOOD CELL COUNT (BEAKER) (test sypn=954) 3.06 M/ L 3.93-5.22 HEMOGLOBIN (BEAKER) (test akuu=832) 9.6 GM/DL 11.2-15.7 HEMATOCRIT (BEAKER) (test vvcr=608) 30.3 % 34.1-44.9 MEAN CORPUSCULAR VOLUME (BEAKER) (test xbju=498) 99.0 fL 79.4-94.8 MEAN CORPUSCULAR HEMOGLOBIN (BEAKER) (test 31.4 pg 25.6-32.2 zrkg=579) MEAN CORPUSCULAR HEMOGLOBIN CONC (BEAKER) (test 31.7 GM/DL 32.2-35.5 agky=113) RED CELL DISTRIBUTION WIDTH (BEAKER) (test 18.8 % 11.7-14.4 jjaa=304) PLATELET COUNT (BEAKER) (test yjgv=607) 98 K/CU MM 150-450 MEAN PLATELET VOLUME (BEAKER) (test adkm=847) 11.5 fL 9.4-12.3 NUCLEATED RED BLOOD CELLS (BEAKER) (test 0 /100 WBC 0-0 rfxb=371) NEUTROPHILS RELATIVE PERCENT (BEAKER) (test 79 % zdbt=718) LYMPHOCYTES RELATIVE PERCENT (BEAKER) (test 12 % tzej=529) MONOCYTES RELATIVE PERCENT (BEAKER) (test 7 % qgab=697) EOSINOPHILS RELATIVE PERCENT (BEAKER) (test 1 % nrjw=736) BASOPHILS RELATIVE PERCENT (BEAKER) (test 1 % qumu=307) NEUTROPHILS ABSOLUTE COUNT (BEAKER) (test 2.64 K/ L 1.56-6.13 gmve=411) LYMPHOCYTES ABSOLUTE COUNT (BEAKER) (test 0.40 K/ L 1.18-3.74 jbsf=343) MONOCYTES ABSOLUTE COUNT (BEAKER) (test xhvd=619) 0.22 K/ L 0.24-0.36 EOSINOPHILS ABSOLUTE COUNT (BEAKER) (test 0.04 K/ L 0.04-0.36 zrjz=695) BASOPHILS ABSOLUTE COUNT (BEAKER) (test bloc=775) 0.02 K/ L 0.01-0.08 IMMATURE GRANULOCYTES-RELATIVE PERCENT (BEAKER) 0 % 0-1 (test hrvd=2522) HEPATITIS B SURFACE [id number] 21:44:00 Test Item Value Reference Range Comments HEPATITIS B SURFACE ANTIGEN (2) (BEAKER) (test Nonreactive Nonreactive srua=1508) CBC W/PLT COUNT & AUTO [id number] 21:03:00 Test Item Value Reference Range Comments WHITE BLOOD CELL COUNT (BEAKER) (test adgn=591) 3.3 K/ L 3.5-10.5 RED BLOOD CELL COUNT (BEAKER) (test ovbv=443) 2.96 M/ L 3.93-5.22 HEMOGLOBIN (BEAKER) (test mzlk=957) 9.4 GM/DL 11.2-15.7 HEMATOCRIT (BEAKER) (test uxyt=131) 29.7 % 34.1-44.9 MEAN CORPUSCULAR VOLUME (BEAKER) (test kgrb=694) 100.3 fL 79.4-94.8 MEAN CORPUSCULAR HEMOGLOBIN (BEAKER) (test 31.8 pg 25.6-32.2 odfp=257) MEAN CORPUSCULAR HEMOGLOBIN CONC (BEAKER) (test 31.6 GM/DL 32.2-35.5 fblj=565) RED CELL DISTRIBUTION WIDTH (BEAKER) (test 19.0 % 11.7-14.4 jkjd=591) PLATELET COUNT (BEAKER) (test ykhz=631) 100 K/CU MM 150-450 MEAN PLATELET VOLUME (BEAKER) (test owfd=085) 10.2 fL 9.4-12.3 NUCLEATED RED BLOOD CELLS (BEAKER) (test 0 /100 WBC 0-0 xtof=098) NEUTROPHILS RELATIVE PERCENT (BEAKER) (test 80 % xftn=231) LYMPHOCYTES RELATIVE PERCENT (BEAKER) (test 10 % lfsf=659) MONOCYTES RELATIVE PERCENT (BEAKER) (test 8 % lcht=400) EOSINOPHILS RELATIVE PERCENT (BEAKER) (test 1 % bwsm=004) BASOPHILS RELATIVE PERCENT (BEAKER) (test 0 % awzz=231) NEUTROPHILS ABSOLUTE COUNT (BEAKER) (test 2.59 K/ L 1.56-6.13 aurj=058) LYMPHOCYTES ABSOLUTE COUNT (BEAKER) (test 0.33 K/ L 1.18-3.74 acfy=607) MONOCYTES ABSOLUTE COUNT (BEAKER) (test 0.26 K/ L 0.24-0.36 orny=614) EOSINOPHILS ABSOLUTE COUNT (BEAKER) (test 0.04 K/ L 0.04-0.36 tbyx=908) BASOPHILS ABSOLUTE COUNT (BEAKER) (test 0.01 K/ L 0.01-0.08 zzim=461) IMMATURE GRANULOCYTES-RELATIVE PERCENT (BEAKER) 1 % 0-1 (test wzzf=4043) PERIPHERAL BLOOD SMEAR - HOLD [id number] 16:54:00 Test Item Value Reference Range Comments PERIPHERAL SMEAR SAVE (BEAKER) (test sdnb=2631) saved LACTATE DEHYDROGENASE (LDH)2018-04-25 16:40:00 Test Item Value Reference Range Comments LACTATE DEHYDROGENASE (BEAKER) (test nkim=161) 332 U/L 125-220 CBC W/PLT COUNT & AUTO [id number] 16:27:00 Test Item Value Reference Range Comments WHITE BLOOD CELL COUNT (BEAKER) (test grkn=281) 2.7 K/ L 3.5-10.5 RED BLOOD CELL COUNT (BEAKER) (test jhsu=113) 3.15 M/ L 3.93-5.22 HEMOGLOBIN (BEAKER) (test cyir=231) 10.0 GM/DL 11.2-15.7 HEMATOCRIT (BEAKER) (test rkzl=504) 31.5 % 34.1-44.9 MEAN CORPUSCULAR VOLUME (BEAKER) (test qepg=129) 100.0 fL 79.4-94.8 MEAN CORPUSCULAR HEMOGLOBIN (BEAKER) (test 31.7 pg 25.6-32.2 qfjb=910) MEAN CORPUSCULAR HEMOGLOBIN CONC (BEAKER) (test 31.7 GM/DL 32.2-35.5 wubv=138) RED CELL DISTRIBUTION WIDTH (BEAKER) (test 19.0 % 11.7-14.4 fjut=381) PLATELET COUNT (BEAKER) (test gpbk=901) 96 K/CU MM 150-450 MEAN PLATELET VOLUME (BEAKER) (test tcjk=757) 9.8 fL 9.4-12.3 NUCLEATED RED BLOOD CELLS (BEAKER) (test 0 /100 WBC 0-0 fbxj=666) NEUTROPHILS RELATIVE PERCENT (BEAKER) (test 76 % rdcd=069) LYMPHOCYTES RELATIVE PERCENT (BEAKER) (test 12 % oddn=462) MONOCYTES RELATIVE PERCENT (BEAKER) (test 10 % ibir=146) EOSINOPHILS RELATIVE PERCENT (BEAKER) (test 1 % qitb=282) BASOPHILS RELATIVE PERCENT (BEAKER) (test 1 % cduw=659) NEUTROPHILS ABSOLUTE COUNT (BEAKER) (test 2.02 K/ L 1.56-6.13 pfps=928) LYMPHOCYTES ABSOLUTE COUNT (BEAKER) (test 0.31 K/ L 1.18-3.74 weld=960) MONOCYTES ABSOLUTE COUNT (BEAKER) (test svup=843) 0.27 K/ L 0.24-0.36 EOSINOPHILS ABSOLUTE COUNT (BEAKER) (test 0.03 K/ L 0.04-0.36 dzxp=603) BASOPHILS ABSOLUTE COUNT (BEAKER) (test uueg=303) 0.02 K/ L 0.01-0.08 IMMATURE GRANULOCYTES-RELATIVE PERCENT (BEAKER) 1 % 0-1 (test pjis=8324) [id number] 07:39:00 Test Item Value Reference Range Comments PHOSPHORUS (BEAKER) (test fwfd=449) 3.1 mg/dL 2.3-4.7 [id number] 07:39:00 Test Item Value Reference Range Comments MAGNESIUM (BEAKER) (test evoa=238) 2.0 mg/dL 1.6-2.6 BASIC METABOLIC [id number] 07:39:00 Test Item Value Reference Range Comments SODIUM (BEAKER) (test 132 meq/L 136-145 does=303) POTASSIUM (BEAKER) (test 4.2 meq/L 3.5-5.1 vvjo=244) CHLORIDE (BEAKER) (test 97 meq/L 98-107 jzwc=892) CO2 (BEAKER) (test 23 meq/L 22-29 jujk=882) BLOOD UREA NITROGEN 42 mg/dL 7-21 (BEAKER) (test dwog=504) CREATININE (BEAKER) (test 3.49 mg/dL 0.57-1.25 vnkn=682) GLUCOSE RANDOM (BEAKER) 84 mg/dL 70-105 (test twae=916) CALCIUM (BEAKER) (test 9.0 mg/dL 8.4-10.2 djge=630) EGFR (BEAKER) (test 14 mL/min/1.73 sq m ESTIMATED GFR IS NOT bxrj=4799) ACCURATE CREATININE CLEARANCE IN PREDICTING GLOMERULAR FILTRATION RATE. ESTIMATED GFR IS NOT APPLICABLE FOR DIALYSIS PATIENTS. CBC W/PLT COUNT & AUTO [id number] 07:24:00 Test Item Value Reference Range Comments WHITE BLOOD CELL COUNT (BEAKER) (test qkoe=148) 2.8 K/ L 3.5-10.5 RED BLOOD CELL COUNT (BEAKER) (test capb=038) 2.96 M/ L 3.93-5.22 HEMOGLOBIN (BEAKER) (test hnzh=979) 9.5 GM/DL 11.2-15.7 HEMATOCRIT (BEAKER) (test ybch=935) 29.8 % 34.1-44.9 MEAN CORPUSCULAR VOLUME (BEAKER) (test srxg=488) 100.7 fL 79.4-94.8 MEAN CORPUSCULAR HEMOGLOBIN (BEAKER) (test 32.1 pg 25.6-32.2 vopr=682) MEAN CORPUSCULAR HEMOGLOBIN CONC (BEAKER) (test 31.9 GM/DL 32.2-35.5 lyul=841) RED CELL DISTRIBUTION WIDTH (BEAKER) (test 19.3 % 11.7-14.4 ckpj=486) PLATELET COUNT (BEAKER) (test uaoi=580) 95 K/CU MM 150-450 MEAN PLATELET VOLUME (BEAKER) (test echw=629) 11.3 fL 9.4-12.3 NUCLEATED RED BLOOD CELLS (BEAKER) (test 0 /100 WBC 0-0 nwnk=676) NEUTROPHILS RELATIVE PERCENT (BEAKER) (test 77 % wobp=872) LYMPHOCYTES RELATIVE PERCENT (BEAKER) (test 12 % dsvd=898) MONOCYTES RELATIVE PERCENT (BEAKER) (test 9 % tvrs=541) EOSINOPHILS RELATIVE PERCENT (BEAKER) (test 1 % ognc=772) BASOPHILS RELATIVE PERCENT (BEAKER) (test 0 % wtcm=519) NEUTROPHILS ABSOLUTE COUNT (BEAKER) (test 2.16 K/ L 1.56-6.13 nrbe=028) LYMPHOCYTES ABSOLUTE COUNT (BEAKER) (test 0.32 K/ L 1.18-3.74 phzk=100) MONOCYTES ABSOLUTE COUNT (BEAKER) (test lxcf=936) 0.26 K/ L 0.24-0.36 EOSINOPHILS ABSOLUTE COUNT (BEAKER) (test 0.03 K/ L 0.04-0.36 clfi=668) BASOPHILS ABSOLUTE COUNT (BEAKER) (test ubch=377) 0.01 K/ L 0.01-0.08 IMMATURE GRANULOCYTES-RELATIVE PERCENT (BEAKER) 0 % 0-1 (test spyj=8005) BLOOD [id number] 06:00:00 Test Item Value Reference Range Comments CULTURE (BEAKER) (test oiqk=5620) No growth in 5 days ANG, CV ACCESS, [id number] 17:46:00Reason for exam:->TDC placement for outpatient HDFINAL REPORT Tunneled dialysis catheter insertion. History: Renal failure. Modality: Sonography and fluoroscopy. Sedation: Versed 0.5 mg and fentanyl 25 mcg was given intravenously for conscious sedation. Vital signs were monitored throughout the procedure by a nurse, and remained stable. Physician intra-service time was 15 minutes. Parks Recreation Director: Lynette. Master [employer]otive Glass Technician: None. Approach: Right internal jugular vein Estimatedblood [...] needle into the right atrium. A 4 [place] micropuncture sheath was placed. A subcutaneous tunnel was created in the right anterior chest wall by blunt dissection. A 19 cm 15.5 [place] 2catheter was brought through the tunnel. [...] fluoroscopic guidance and conscious sedation. Signed: Albert Funkort Verified Date/Time: 04/01/2018 17:46:56 Reading Location: [facility] P048 Angio Body Reading Room TISSUE [id number] 11:52:00Surgical Pathology Report Case: [id number] Authorizing Provider: Michelle Ram MD Collected: 03/24/2018 1253 Ordering Location: [address] Received: 03/24/2018 1254 Service Pathologist: Dennise Jo MD Specimen: Kidney, Left, Left kidney needle biopsy KIDNEY, LEFT, NEEDLE BIOPSIES- ACUTE THROMBOTIC MICROANGIOPATHY- MODERATE INTERSTITIAL FIBROSIS AND TUBULAR ATROPHY ( ~40%) Signing Pathologist Direct Phone Line: [phone] signed by Dennise Jo MD on 03/31/2018 [...] Dr. Vital on 03/25/2018 at 10.15 am. [id number], [id number] X3, [id number], [id number] x8, [id number] renal failure evaluationNative left kidney biopsyThe specimen is received in three parts all labeled with the patient's information. Received in formalin are three go-red core biopsies ranging in length from 0.3 to 1.1 cm, submitted entirely A1. Received fresh is a 1 cm go- red core, submitted for frozen sectionfor immunofluorescence [...] with extensive effacement of foot processes.BASIC METABOLIC [id number] 06:14:00 Test Item Value Reference Range Comments SODIUM (BEAKER) (test 133 meq/L 136-145 fzwu=671) POTASSIUM (BEAKER) (test 4.6 meq/L 3.5-5.1 yodu=832) CHLORIDE (BEAKER) (test 99 meq/L 98-107 bvoa=396) CO2 (BEAKER) (test 24 meq/L 22-29 zcap=974) BLOOD UREA NITROGEN 45 mg/dL 7-21 (BEAKER) (test ewmw=242) CREATININE (BEAKER) (test 4.49 mg/dL 0.57-1.25 rjvh=444) GLUCOSE RANDOM (BEAKER) 95 mg/dL 70-105 (test yzkh=269) CALCIUM (BEAKER) (test 8.1 mg/dL 8.4-10.2 ngio=409) EGFR (BEAKER) (test 10 mL/min/1.73 sq m ESTIMATED GFR IS NOT lwst=1221) ACCURATE CREATININE CLEARANCE IN PREDICTING GLOMERULAR FILTRATION RATE. ESTIMATED GFR IS NOT APPLICABLE FOR DIALYSIS PATIENTS. [id number] 06:05:00 Test Item Value Reference Range Comments MAGNESIUM (BEAKER) (test cwjr=479) 1.9 mg/dL 1.6-2.6 CBC W/PLT COUNT & AUTO [id number] 05:20:00 Test Item Value Reference Range Comments WHITE BLOOD CELL COUNT (BEAKER) (test sfcs=028) 4.1 K/ L 3.5-10.5 RED BLOOD CELL COUNT (BEAKER) (test obha=035) 2.55 M/ L 3.93-5.22 HEMOGLOBIN (BEAKER) (test whhc=006) 8.0 GM/DL 11.2-15.7 HEMATOCRIT (BEAKER) (test vboi=773) 26.0 % 34.1-44.9 MEAN CORPUSCULAR VOLUME (BEAKER) (test yifo=994) 102.0 fL 79.4-94.8 MEAN CORPUSCULAR HEMOGLOBIN (BEAKER) (test 31.4 pg 25.6-32.2 mmxs=324) MEAN CORPUSCULAR HEMOGLOBIN CONC (BEAKER) (test 30.8 GM/DL 32.2-35.5 uxzg=721) RED CELL DISTRIBUTION WIDTH (BEAKER) (test 18.9 % 11.7-14.4 nmjl=650) PLATELET COUNT (BEAKER) (test otrj=994) 54 K/CU MM 150-450 MEAN PLATELET VOLUME (BEAKER) (test ufye=051) 12.9 fL 9.4-12.3 NUCLEATED RED BLOOD CELLS (BEAKER) (test 0 /100 WBC 0-0 ouwi=962) NEUTROPHILS RELATIVE PERCENT (BEAKER) (test 84 % lkte=924) LYMPHOCYTES RELATIVE PERCENT (BEAKER) (test 8 % pvke=487) MONOCYTES RELATIVE PERCENT (BEAKER) (test 7 % nnid=945) EOSINOPHILS RELATIVE PERCENT (BEAKER) (test 1 % glqm=469) BASOPHILS RELATIVE PERCENT (BEAKER) (test 0 % oozb=215) NEUTROPHILS ABSOLUTE COUNT (BEAKER) (test 3.45 K/ L 1.56-6.13 vgqg=431) LYMPHOCYTES ABSOLUTE COUNT (BEAKER) (test 0.33 K/ L 1.18-3.74 dqku=479) MONOCYTES ABSOLUTE COUNT (BEAKER) (test sukw=829) 0.28 K/ L 0.24-0.36 EOSINOPHILS ABSOLUTE COUNT (BEAKER) (test 0.03 K/ L 0.04-0.36 bhvr=585) BASOPHILS ABSOLUTE COUNT (BEAKER) (test vzmz=964) 0.01 K/ L 0.01-0.08 IMMATURE GRANULOCYTES-RELATIVE PERCENT (BEAKER) 1 % 0-1 (test ebpw=7854) POCT-GLUCOSE [id number] 18:43:00 Test Item Value Reference Range Comments POC-GLUCOSE METER (BEAKER) 121 mg/dL 70-110 TESTED AT [address] (test mezj=0946) [facility] [address] BASIC METABOLIC [id number] 06:46:00 Test Item Value Reference Range Comments SODIUM (BEAKER) (test 133 meq/L 136-145 inif=850) POTASSIUM (BEAKER) (test 4.1 meq/L 3.5-5.1 aoua=847) CHLORIDE (BEAKER) (test 98 meq/L 98-107 vwun=389) CO2 (BEAKER) (test 25 meq/L 22-29 uref=276) BLOOD UREA NITROGEN 27 mg/dL 7-21 (BEAKER) (test sqvb=553) CREATININE (BEAKER) (test 2.91 mg/dL 0.57-1.25 cego=041) GLUCOSE RANDOM (BEAKER) 92 mg/dL 70-105 (test jzyv=969) CALCIUM (BEAKER) (test 8.3 mg/dL 8.4-10.2 kbgf=356) EGFR (BEAKER) (test 17 mL/min/1.73 sq m ESTIMATED GFR IS NOT ttky=4308) ACCURATE CREATININE CLEARANCE IN PREDICTING GLOMERULAR FILTRATION RATE. ESTIMATED GFR IS NOT APPLICABLE FOR DIALYSIS PATIENTS. [id number] 06:34:00 Test Item Value Reference Range Comments MAGNESIUM (BEAKER) (test ikns=439) 1.9 mg/dL 1.6-2.6 [id number] 06:13:00 Test Item Value Reference Range Comments PROTIME (BEAKER) (test zbad=238) 16.7 seconds 11.7-14.7 INR (BEAKER) (test nevl=472) 1.4 <=5.9 PARTIAL THROMBOPLASTIN TIME (BEAKER) (test 39.8 seconds 22.5-36.0 nqzf=937) RECOMMENDED COUMADIN/WARFARIN INR THERAPY RANGESSTANDARD DOSE: 2.0 - 3.0 Includes: PROPHYLAXIS forvenous thrombosis, systemic embolization; TREATMENT for venous thrombosis and/or pulmonary embolus.HIGH RISK: Target INR is 2.5-3.5 for patients with mechanical heart valves.CBC W/PLT COUNT & AUTO [id number] 06:11:00 Test Item Value Reference Range Comments WHITE BLOOD CELL COUNT (BEAKER) (test ezcm=805) 3.2 K/ L 3.5-10.5 RED BLOOD CELL COUNT (BEAKER) (test biqd=084) 2.51 M/ L 3.93-5.22 HEMOGLOBIN (BEAKER) (test qhxg=787) 8.0 GM/DL 11.2-15.7 HEMATOCRIT (BEAKER) (test jpbo=107) 25.7 % 34.1-44.9 MEAN CORPUSCULAR VOLUME (BEAKER) (test uhaa=112) 102.4 fL 79.4-94.8 MEAN CORPUSCULAR HEMOGLOBIN (BEAKER) (test 31.9 pg 25.6-32.2 pjje=539) MEAN CORPUSCULAR HEMOGLOBIN CONC (BEAKER) (test 31.1 GM/DL 32.2-35.5 fley=613) RED CELL DISTRIBUTION WIDTH (BEAKER) (test 19.3 % 11.7-14.4 etsp=481) PLATELET COUNT (BEAKER) (test ptws=382) 49 K/CU MM 150-450 MEAN PLATELET VOLUME (BEAKER) (test wvcr=977) 12.6 fL 9.4-12.3 NUCLEATED RED BLOOD CELLS (BEAKER) (test 0 /100 WBC 0-0 quyh=804) NEUTROPHILS RELATIVE PERCENT (BEAKER) (test 82 % mokc=411) LYMPHOCYTES RELATIVE PERCENT (BEAKER) (test 9 % vjdu=778) MONOCYTES RELATIVE PERCENT (BEAKER) (test 9 % pfzw=354) EOSINOPHILS RELATIVE PERCENT (BEAKER) (test 0 % towv=113) BASOPHILS RELATIVE PERCENT (BEAKER) (test 0 % pmwc=727) NEUTROPHILS ABSOLUTE COUNT (BEAKER) (test 2.60 K/ L 1.56-6.13 debh=007) LYMPHOCYTES ABSOLUTE COUNT (BEAKER) (test 0.29 K/ L 1.18-3.74 pslc=027) MONOCYTES ABSOLUTE COUNT (BEAKER) (test okpb=779) 0.27 K/ L 0.24-0.36 EOSINOPHILS ABSOLUTE COUNT (BEAKER) (test 0.00 K/ L 0.04-0.36 kkse=501) BASOPHILS ABSOLUTE COUNT (BEAKER) (test ukec=677) 0.01 K/ L 0.01-0.08 IMMATURE GRANULOCYTES-RELATIVE PERCENT (BEAKER) 0 % 0-1 (test zlxr=9004) BASIC METABOLIC [id number] 07:21:00 Test Item Value Reference Range Comments SODIUM (BEAKER) (test 135 meq/L 136-145 abjz=686) POTASSIUM (BEAKER) (test 4.1 meq/L 3.5-5.1 ovqs=870) CHLORIDE (BEAKER) (test 102 meq/L 98-107 hwpq=747) CO2 (BEAKER) (test 24 meq/L 22-29 ghnp=904) BLOOD UREA NITROGEN 45 mg/dL 7-21 (BEAKER) (test feok=017) CREATININE (BEAKER) (test 4.55 mg/dL 0.57-1.25 aohe=455) GLUCOSE RANDOM (BEAKER) 106 mg/dL 70-105 (test jhxo=706) CALCIUM (BEAKER) (test 7.8 mg/dL 8.4-10.2 jimp=757) EGFR (BEAKER) (test 10 mL/min/1.73 sq m ESTIMATED GFR IS NOT afzm=3422) ACCURATE CREATININE CLEARANCE IN PREDICTING GLOMERULAR FILTRATION RATE. ESTIMATED GFR IS NOT APPLICABLE FOR DIALYSIS PATIENTS. [id number] 07:08:00 Test Item Value Reference Range Comments MAGNESIUM (BEAKER) (test rsbq=853) 1.8 mg/dL 1.6-2.6 CBC W/PLT COUNT & AUTO [id number] 06:53:00 Test Item Value Reference Range Comments WHITE BLOOD CELL COUNT (BEAKER) (test lcau=536) 2.9 K/ L 3.5-10.5 RED BLOOD CELL COUNT (BEAKER) (test ubya=504) 2.45 M/ L 3.93-5.22 HEMOGLOBIN (BEAKER) (test etjc=017) 8.0 GM/DL 11.2-15.7 HEMATOCRIT (BEAKER) (test tsle=231) 25.1 % 34.1-44.9 MEAN CORPUSCULAR VOLUME (BEAKER) (test dllf=836) 102.4 fL 79.4-94.8 MEAN CORPUSCULAR HEMOGLOBIN (BEAKER) (test 32.7 pg 25.6-32.2 hofb=727) MEAN CORPUSCULAR HEMOGLOBIN CONC (BEAKER) (test 31.9 GM/DL 32.2-35.5 cqor=829) RED CELL DISTRIBUTION WIDTH (BEAKER) (test 19.7 % 11.7-14.4 gxgx=238) PLATELET COUNT (BEAKER) (test ypbz=264) 41 K/CU MM 150-450 MEAN PLATELET VOLUME (BEAKER) (test xucy=038) 11.7 fL 9.4-12.3 NUCLEATED RED BLOOD CELLS (BEAKER) (test 0 /100 WBC 0-0 eucf=468) NEUTROPHILS RELATIVE PERCENT (BEAKER) (test 75 % cuco=712) LYMPHOCYTES RELATIVE PERCENT (BEAKER) (test 13 % kbyp=784) MONOCYTES RELATIVE PERCENT (BEAKER) (test 11 % ljkq=987) EOSINOPHILS RELATIVE PERCENT (BEAKER) (test 0 % ixha=912) BASOPHILS RELATIVE PERCENT (BEAKER) (test 0 % hpzq=306) NEUTROPHILS ABSOLUTE COUNT (BEAKER) (test 2.13 K/ L 1.56-6.13 reaj=436) LYMPHOCYTES ABSOLUTE COUNT (BEAKER) (test 0.38 K/ L 1.18-3.74 qaye=453) MONOCYTES ABSOLUTE COUNT (BEAKER) (test xpxw=959) 0.32 K/ L 0.24-0.36 EOSINOPHILS ABSOLUTE COUNT (BEAKER) (test 0.01 K/ L 0.04-0.36 heba=409) BASOPHILS ABSOLUTE COUNT (BEAKER) (test jivo=376) 0.01 K/ L 0.01-0.08 IMMATURE GRANULOCYTES-RELATIVE PERCENT (BEAKER) 0 % 0-1 (test ruin=9108) RAD, CHEST, 1 VIEW, NON [id number] 22:19:00Reason for exam:-> pneumoniaShould this be performed [...] MDReport Verified Date/Time: 03/28/2018 22:19:58 Reading Location: [address] Reading Room [id number] 05:56: 00 Test Item Value Reference Range Comments MAGNESIUM (BEAKER) (test ftqq=926) 1.9 mg/dL 1.6-2.6 COMPREHENSIVE METABOLIC [id number] 03:24:00 Test Item Value Reference Range Comments TOTAL PROTEIN (BEAKER) 5.9 gm/dL 6.0-8.3 (test zgjj=682) ALBUMIN (BEAKER) (test 2.5 g/dL 3.5-5.0 aupf=6331) ALKALINE PHOSPHATASE 42 U/L 40-150 (BEAKER) (test egha=367) BILIRUBIN TOTAL (BEAKER) 1.0 mg/dL 0.2-1.2 (test otbg=414) SODIUM (BEAKER) (test 135 meq/L 136-145 ymij=784) POTASSIUM (BEAKER) (test 4.1 meq/L 3.5-5.1 ftzt=881) CHLORIDE (BEAKER) (test 102 meq/L 98-107 fgey=711) CO2 (BEAKER) (test 26 meq/L 22-29 jnjt=015) BLOOD UREA NITROGEN 24 mg/dL 7-21 (BEAKER) (test nzus=435) CREATININE (BEAKER) (test 3.02 mg/dL 0.57-1.25 bqsd=116) GLUCOSE RANDOM (BEAKER) 121 mg/dL 70-105 (test mgoz=867) CALCIUM (BEAKER) (test 8.2 mg/dL 8.4-10.2 urqm=754) AST (SGOT) (BEAKER) (test 35 U/L 5-34 zjzn=405) ALT (SGPT) (BEAKER) (test 13 U/L 6-55 puib=590) EGFR (BEAKER) (test 16 mL/min/1.73 sq m ESTIMATED GFR IS NOT lyev=9809) ACCURATE CREATININE CLEARANCE IN PREDICTING GLOMERULAR FILTRATION RATE. ESTIMATED GFR IS NOT APPLICABLE FOR DIALYSIS PATIENTS. LACTIC ACID, VENOUS, WHOLE [id number] 03:15:00 Test Item Value Reference Range Comments LACTATE BLOOD VENOUS (2) (BEAKER) (test 1.1 mmol/L 0.5-2.2 gmxi=4773) Effective 11/28/2015: Units/Reference Range ChangeNew: 0.5-2.2 mmol/L Previous: 5 -20 mg/dLCBC W/PLT COUNT & AUTO [id number] 02:57:00 Test Item Value Reference Range Comments WHITE BLOOD CELL COUNT (BEAKER) (test caic=674) 2.7 K/ L 3.5-10.5 RED BLOOD CELL COUNT (BEAKER) (test itwt=953) 2.45 M/ L 3.93-5.22 HEMOGLOBIN (BEAKER) (test ihqz=771) 8.0 GM/DL 11.2-15.7 HEMATOCRIT (BEAKER) (test jsjg=495) 24.9 % 34.1-44.9 MEAN CORPUSCULAR VOLUME (BEAKER) (test uoee=499) 101.6 fL 79.4-94.8 MEAN CORPUSCULAR HEMOGLOBIN (BEAKER) (test 32.7 pg 25.6-32.2 ngtw=939) MEAN CORPUSCULAR HEMOGLOBIN CONC (BEAKER) (test 32.1 GM/DL 32.2-35.5 qrbc=956) RED CELL DISTRIBUTION WIDTH (BEAKER) (test 20.7 % 11.7-14.4 dqtg=750) PLATELET COUNT (BEAKER) (test kvpb=749) 44 K/CU MM 150-450 MEAN PLATELET VOLUME (BEAKER) (test pvfk=305) 11.9 fL 9.4-12.3 NUCLEATED RED BLOOD CELLS (BEAKER) (test 0 /100 WBC 0-0 cblo=269) NEUTROPHILS RELATIVE PERCENT (BEAKER) (test 75 % zxbo=693) LYMPHOCYTES RELATIVE PERCENT (BEAKER) (test 12 % kjag=435) MONOCYTES RELATIVE PERCENT (BEAKER) (test 12 % snua=679) EOSINOPHILS RELATIVE PERCENT (BEAKER) (test 0 % bjkn=173) BASOPHILS RELATIVE PERCENT (BEAKER) (test 0 % ucer=588) NEUTROPHILS ABSOLUTE COUNT (BEAKER) (test 2.05 K/ L 1.56-6.13 pctb=873) LYMPHOCYTES ABSOLUTE COUNT (BEAKER) (test 0.32 K/ L 1.18-3.74 arth=643) MONOCYTES ABSOLUTE COUNT (BEAKER) (test wrvd=936) 0.34 K/ L 0.24-0.36 EOSINOPHILS ABSOLUTE COUNT (BEAKER) (test 0.01 K/ L 0.04-0.36 jdjh=250) BASOPHILS ABSOLUTE COUNT (BEAKER) (test alqc=897) 0.01 K/ L 0.01-0.08 IMMATURE GRANULOCYTES-RELATIVE PERCENT (BEAKER) 0 % 0-1 (test fabc=4507) POCT-GLUCOSE [id number] 02:55:00 Test Item Value Reference Range Comments POC-GLUCOSE METER (BEAKER) 148 mg/dL 70-110 TESTED AT [facility] [address] [facility] (test wppt=7070) [facility] [address] BASIC METABOLIC [id number] 06:29:00 Test Item Value Reference Range Comments SODIUM (BEAKER) (test 129 meq/L 136-145 fgis=551) POTASSIUM (BEAKER) (test 3.5 meq/L 3.5-5.1 rsqj=592) CHLORIDE (BEAKER) (test 97 meq/L 98-107 wtxu=498) CO2 (BEAKER) (test 25 meq/L 22-29 ikgp=396) BLOOD UREA NITROGEN 44 mg/dL 7-21 (BEAKER) (test achl=929) CREATININE (BEAKER) (test 4.23 mg/dL 0.57-1.25 ytns=259) GLUCOSE RANDOM (BEAKER) 118 mg/dL 70-105 (test fowd=695) CALCIUM (BEAKER) (test 7.0 mg/dL 8.4-10.2 kuif=379) EGFR (BEAKER) (test 11 mL/min/1.73 sq m ESTIMATED GFR IS NOT aoxz=0315) ACCURATE CREATININE CLEARANCE IN PREDICTING GLOMERULAR FILTRATION RATE. ESTIMATED GFR IS NOT APPLICABLE FOR DIALYSIS PATIENTS. [id number] 06:27:00 Test Item Value Reference Range Comments MAGNESIUM (BEAKER) (test tzud=013) 1.8 mg/dL 1.6-2.6 CBC W/PLT COUNT & AUTO [id number] 06:09:00 Test Item Value Reference Range Comments WHITE BLOOD CELL COUNT (BEAKER) (test ntgy=651) 3.1 K/ L 3.5-10.5 RED BLOOD CELL COUNT (BEAKER) (test yhbd=901) 1.93 M/ L 3.93-5.22 HEMOGLOBIN (BEAKER) (test wtjg=584) 6.4 GM/DL 11.2-15.7 HEMATOCRIT (BEAKER) (test kjwl=720) 20.6 % 34.1-44.9 MEAN CORPUSCULAR VOLUME (BEAKER) (test rhos=204) 106.7 fL 79.4-94.8 MEAN CORPUSCULAR HEMOGLOBIN (BEAKER) (test 33.2 pg 25.6-32.2 xqde=918) MEAN CORPUSCULAR HEMOGLOBIN CONC (BEAKER) (test 31.1 GM/DL 32.2-35.5 rktv=954) RED CELL DISTRIBUTION WIDTH (BEAKER) (test 20.5 % 11.7-14.4 skoz=216) PLATELET COUNT (BEAKER) (test rvkq=897) 48 K/CU MM 150-450 MEAN PLATELET VOLUME (BEAKER) (test sgvg=738) 12.1 fL 9.4-12.3 NUCLEATED RED BLOOD CELLS (BEAKER) (test 0 /100 WBC 0-0 hfhr=055) NEUTROPHILS RELATIVE PERCENT (BEAKER) (test 77 % fsfz=057) LYMPHOCYTES RELATIVE PERCENT (BEAKER) (test 9 % csld=591) MONOCYTES RELATIVE PERCENT (BEAKER) (test 13 % bpxj=055) EOSINOPHILS RELATIVE PERCENT (BEAKER) (test 0 % jeeu=344) BASOPHILS RELATIVE PERCENT (BEAKER) (test 0 % krjr=058) NEUTROPHILS ABSOLUTE COUNT (BEAKER) (test 2.42 K/ L 1.56-6.13 bzkf=494) LYMPHOCYTES ABSOLUTE COUNT (BEAKER) (test 0.27 K/ L 1.18-3.74 kcbz=136) MONOCYTES ABSOLUTE COUNT (BEAKER) (test cupp=986) 0.39 K/ L 0.24-0.36 EOSINOPHILS ABSOLUTE COUNT (BEAKER) (test 0.01 K/ L 0.04-0.36 howy=652) BASOPHILS ABSOLUTE COUNT (BEAKER) (test sbok=140) 0.01 K/ L 0.01-0.08 IMMATURE GRANULOCYTES-RELATIVE PERCENT (BEAKER) 1 % 0-1 (test qwgu=7132) RAD, SHOULDER, COMPLETE (MIN 2 VIEWS), [id number] 17:48:00Reason for exam:-& gt;r/o FxShould this be [...] Torres Verified Date/Time: 03/26/2018 17:48:06 Reading Location: [facility] Radiology Reading Room [facility] METABOLIC [id number] 07:10:00 Test Item Value Reference Range Comments SODIUM (BEAKER) (test 133 meq/L 136-145 eyvm=806) POTASSIUM (BEAKER) (test 3.6 meq/L 3.5-5.1 wueq=810) CHLORIDE (BEAKER) (test 101 meq/L 98-107 rlss=592) CO2 (BEAKER) (test 24 meq/L 22-29 mzsh=218) BLOOD UREA NITROGEN 26 mg/dL 7-21 (BEAKER) (test crrb=750) CREATININE (BEAKER) (test 2.73 mg/dL 0.57-1.25 shbr=249) GLUCOSE RANDOM (BEAKER) 117 mg/dL 70-105 (test qzil=704) CALCIUM (BEAKER) (test 7.5 mg/dL 8.4-10.2 qxnn=356) EGFR (BEAKER) (test 18 mL/min/1.73 sq m ESTIMATED GFR IS NOT yvng=4902) ACCURATE CREATININE CLEARANCE IN PREDICTING GLOMERULAR FILTRATION RATE. ESTIMATED GFR IS NOT APPLICABLE FOR DIALYSIS PATIENTS. [id number] 07:08:00 Test Item Value Reference Range Comments MAGNESIUM (BEAKER) (test ttpy=131) 1.9 mg/dL 1.6-2.6 CBC W/PLT COUNT & AUTO [id number] 06:34:00 Test Item Value Reference Range Comments WHITE BLOOD CELL COUNT (BEAKER) (test rxaf=514) 3.1 K/ L 3.5-10.5 RED BLOOD CELL COUNT (BEAKER) (test eblq=441) 2.18 M/ L 3.93-5.22 HEMOGLOBIN (BEAKER) (test kgva=099) 7.2 GM/DL 11.2-15.7 HEMATOCRIT (BEAKER) (test wkhk=919) 23.1 % 34.1-44.9 MEAN CORPUSCULAR VOLUME (BEAKER) (test ckgq=560) 106.0 fL 79.4-94.8 MEAN CORPUSCULAR HEMOGLOBIN (BEAKER) (test 33.0 pg 25.6-32.2 mfhz=498) MEAN CORPUSCULAR HEMOGLOBIN CONC (BEAKER) (test 31.2 GM/DL 32.2-35.5 xnlr=473) RED CELL DISTRIBUTION WIDTH (BEAKER) (test 21.7 % 11.7-14.4 talr=061) PLATELET COUNT (BEAKER) (test zhbh=774) 45 K/CU MM 150-450 MEAN PLATELET VOLUME (BEAKER) (test mcqf=837) 11.8 fL 9.4-12.3 NUCLEATED RED BLOOD CELLS (BEAKER) (test 0 /100 WBC 0-0 tgqn=572) NEUTROPHILS RELATIVE PERCENT (BEAKER) (test 83 % bonv=575) LYMPHOCYTES RELATIVE PERCENT (BEAKER) (test 7 % bsko=762) MONOCYTES RELATIVE PERCENT (BEAKER) (test 10 % ycjj=889) EOSINOPHILS RELATIVE PERCENT (BEAKER) (test 0 % pxba=081) BASOPHILS RELATIVE PERCENT (BEAKER) (test 0 % pvuj=641) NEUTROPHILS ABSOLUTE COUNT (BEAKER) (test 2.55 K/ L 1.56-6.13 frlx=591) LYMPHOCYTES ABSOLUTE COUNT (BEAKER) (test 0.20 K/ L 1.18-3.74 kxnf=582) MONOCYTES ABSOLUTE COUNT (BEAKER) (test tsrf=188) 0.31 K/ L 0.24-0.36 EOSINOPHILS ABSOLUTE COUNT (BEAKER) (test 0.00 K/ L 0.04-0.36 sqmg=577) BASOPHILS ABSOLUTE COUNT (BEAKER) (test abrd=079) 0.01 K/ L 0.01-0.08 IMMATURE GRANULOCYTES-RELATIVE PERCENT (BEAKER) 1 % 0-1 (test kywk=4089) CT, [id number] 02:57:00R/o retroperitoneal hematoma s/p kidney bxFINAL REPORT [...] Islas Verified Date/Time: 03/26/2018 02:57:14 Reading Location: [address] Transitional Reading Room Electronically signed by: KELLEE ISLAS MD on 2017 02:57 AMLACTATE DEHYDROGENASE (LDH)2018-03-25 14:50:00 Test Item Value Reference Range Comments LACTATE DEHYDROGENASE (BEAKER) (test etss=267) 722 U/L 125-220 PERIPHERAL BLOOD SMEAR - HOLD [id number] 14:37:00 Test Item Value Reference Range Comments PERIPHERAL SMEAR SAVE (BEAKER) (test ymln=4066) saved BASIC METABOLIC [id number] 07:08:00 Test Item Value Reference Range Comments SODIUM (BEAKER) (test 127 meq/L 136-145 bkba=663) POTASSIUM (BEAKER) (test 4.3 meq/L 3.5-5.1 refd=147) CHLORIDE (BEAKER) (test 94 meq/L 98-107 zmzx=116) CO2 (BEAKER) (test 23 meq/L 22-29 odrp=076) BLOOD UREA NITROGEN 56 mg/dL 7-21 (BEAKER) (test hcxi=758) CREATININE (BEAKER) (test 4.30 mg/dL 0.57-1.25 tuwk=773) GLUCOSE RANDOM (BEAKER) 110 mg/dL 70-105 (test vjrz=396) CALCIUM (BEAKER) (test 6.4 mg/dL 8.4-10.2 meal=801) EGFR (BEAKER) (test 11 mL/min/1.73 sq m ESTIMATED GFR IS NOT vpeb=8147) ACCURATE CREATININE CLEARANCE IN PREDICTING GLOMERULAR FILTRATION RATE. ESTIMATED GFR IS NOT APPLICABLE FOR DIALYSIS PATIENTS. [id number] 07:04:00 Test Item Value Reference Range Comments MAGNESIUM (BEAKER) (test gxfu=391) 1.9 mg/dL 1.6-2.6 CBC W/PLT COUNT & AUTO [id number] 06:27:00 Test Item Value Reference Range Comments WHITE BLOOD CELL COUNT (BEAKER) (test wmwj=449) 5.3 K/ L 3.5-10.5 RED BLOOD CELL COUNT (BEAKER) (test fhlq=860) 2.39 M/ L 3.93-5.22 HEMOGLOBIN (BEAKER) (test iqej=399) 7.9 GM/DL 11.2-15.7 HEMATOCRIT (BEAKER) (test uzqy=280) 25.0 % 34.1-44.9 MEAN CORPUSCULAR VOLUME (BEAKER) (test kbmv=011) 104.6 fL 79.4-94.8 MEAN CORPUSCULAR HEMOGLOBIN (BEAKER) (test 33.1 pg 25.6-32.2 adxf=193) MEAN CORPUSCULAR HEMOGLOBIN CONC (BEAKER) (test 31.6 GM/DL 32.2-35.5 jmzk=126) RED CELL DISTRIBUTION WIDTH (BEAKER) (test 22.2 % 11.7-14.4 lxgp=526) PLATELET COUNT (BEAKER) (test hucz=011) 60 K/CU MM 150-450 MEAN PLATELET VOLUME (BEAKER) (test tpoq=000) 12.7 fL 9.4-12.3 NUCLEATED RED BLOOD CELLS (BEAKER) (test 0 /100 WBC 0-0 uqsk=731) NEUTROPHILS RELATIVE PERCENT (BEAKER) (test 85 % ntug=925) LYMPHOCYTES RELATIVE PERCENT (BEAKER) (test 6 % bswq=069) MONOCYTES RELATIVE PERCENT (BEAKER) (test 9 % wtuo=814) EOSINOPHILS RELATIVE PERCENT (BEAKER) (test 0 % ypxy=449) BASOPHILS RELATIVE PERCENT (BEAKER) (test 0 % xqpi=517) NEUTROPHILS ABSOLUTE COUNT (BEAKER) (test 4.50 K/ L 1.56-6.13 bjgk=329) LYMPHOCYTES ABSOLUTE COUNT (BEAKER) (test 0.30 K/ L 1.18-3.74 rbdh=537) MONOCYTES ABSOLUTE COUNT (BEAKER) (test urmg=726) 0.46 K/ L 0.24-0.36 EOSINOPHILS ABSOLUTE COUNT (BEAKER) (test 0.01 K/ L 0.04-0.36 qgsp=989) BASOPHILS ABSOLUTE COUNT (BEAKER) (test hfjt=973) 0.01 K/ L 0.01-0.08 IMMATURE GRANULOCYTES-RELATIVE PERCENT (BEAKER) 1 % 0-1 (test gemp=9914) HEPATITIS B [id number] 13:58:00 Test Item Value Reference Range Comments HEPATITIS B CORE TOTAL Nonreactive Nonreactive ANTIBODY (BEAKER) (test qqne=626) HEPATITIS B SURFACE ANTIBODY 133.0 mIU/mL <8.0 Testing performed at [facility] (BEAKER) (test xmfl=181) Diagnostic Laboratory.See attach result for further interpretation. HEPATITIS B SURFACE ANTIGEN Nonreactive Nonreactive (2) (BEAKER) (test fjlp=9443) U/S, BIOPSY, RENAL (KIDNEY)2018-03-24 12:59:00Reason for exam:->Acute [...] biopsy of thenative left kidney. Signed: Eduin Thompsoneport Verified Date/Time: 03/24 12:59:37 Reading Location: [facility] [id number] Ultrasound Reading Room [place] [id number] 11:03:00[place] Pathology Report Case: [id number] Authorizing Provider: Jordan Sultana MD Collected: 03/17/2018 1457 Ordering Location : [address] Med/Surg Received: 03/17/2018 1457 Pathologist: Doug Lee MD Specimens: A) - Iliac, Right B) - Iliac, Right C) -Iliac , Right This addendum is created to report the [employer] results for the Oncologic chromosomal study:There is [...] NORMOCYTIC ANEMIA-THROMBOCYTOPENIA Signing Pathologist Direct Phone Line: [phone] signed by Doug Lee MD on 03/23/2018 [...] be submitted as an addendum when available. 10276; 90361; 66366 x 2; 56435; [id number] x 1; 30634 z78Gyfjjdr malignant neoplasm of breast with metastasis to [...] clusters. CD61: Highlights megakaryocytes which appear mildly ghxtslfmdDW137: Demonstrates slightly more progenitor cells then CD34 [...] developed and its performance characteristics determined by [facility], Pathology Laboratory. It has not been cleared [...] 5.2, CD3, CD20, CD34, CD61, CD117, CD138, [place], Lambda , E-Cadherin.CBC W/PLT COUNT & AUTO [id number] 06:18:00 Test Item Value Reference Range Comments WHITE BLOOD CELL COUNT (BEAKER) (test jsdw=333) 5.0 K/ L 3.5-10.5 RED BLOOD CELL COUNT (BEAKER) (test pcsu=796) 2.77 M/ L 3.93-5.22 HEMOGLOBIN (BEAKER) (test tolh=192) 9.0 GM/DL 11.2-15.7 HEMATOCRIT (BEAKER) (test roir=309) 29.8 % 34.1-44.9 MEAN CORPUSCULAR VOLUME (BEAKER) (test hdmk=080) 107.6 fL 79.4-94.8 MEAN CORPUSCULAR HEMOGLOBIN (BEAKER) (test 32.5 pg 25.6-32.2 qahg=963) MEAN CORPUSCULAR HEMOGLOBIN CONC (BEAKER) (test 30.2 GM/DL 32.2-35.5 jnik=786) RED CELL DISTRIBUTION WIDTH (BEAKER) (test 23.6 % 11.7-14.4 safm=786) PLATELET COUNT (BEAKER) (test yqzn=433) 61 K/CU MM 150-450 MEAN PLATELET VOLUME (BEAKER) (test ohmj=115) 11.2 fL 9.4-12.3 NUCLEATED RED BLOOD CELLS (BEAKER) (test 0 /100 WBC 0-0 qvpe=639) NEUTROPHILS RELATIVE PERCENT (BEAKER) (test 82 % yqsq=121) LYMPHOCYTES RELATIVE PERCENT (BEAKER) (test 7 % rbzi=720) MONOCYTES RELATIVE PERCENT (BEAKER) (test 10 % nazl=374) EOSINOPHILS RELATIVE PERCENT (BEAKER) (test 0 % lyxt=076) BASOPHILS RELATIVE PERCENT (BEAKER) (test 0 % bawt=555) NEUTROPHILS ABSOLUTE COUNT (BEAKER) (test 4.14 K/ L 1.56-6.13 uonw=605) LYMPHOCYTES ABSOLUTE COUNT (BEAKER) (test 0.35 K/ L 1.18-3.74 jmlh=049) MONOCYTES ABSOLUTE COUNT (BEAKER) (test xzwy=620) 0.49 K/ L 0.24-0.36 EOSINOPHILS ABSOLUTE COUNT (BEAKER) (test 0.02 K/ L 0.04-0.36 musx=877) BASOPHILS ABSOLUTE COUNT (BEAKER) (test cgcn=136) 0.01 K/ L 0.01-0.08 IMMATURE GRANULOCYTES-RELATIVE PERCENT (BEAKER) 0 % 0-1 (test wprq=1490) BASIC METABOLIC [id number] 05:46:00 Test Item Value Reference Range Comments SODIUM (BEAKER) (test 129 meq/L 136-145 mpwe=610) POTASSIUM (BEAKER) (test 3.9 meq/L 3.5-5.1 dyim=520) CHLORIDE (BEAKER) (test 98 meq/L 98-107 ffxm=310) CO2 (BEAKER) (test 22 meq/L 22-29 clxa=589) BLOOD UREA NITROGEN 42 mg/dL 7-21 (BEAKER) (test cwmf=715) CREATININE (BEAKER) (test 3.25 mg/dL 0.57-1.25 twbj=480) GLUCOSE RANDOM (BEAKER) 101 mg/dL 70-105 (test mhya=778) CALCIUM (BEAKER) (test 7.0 mg/dL 8.4-10.2 ikww=674) EGFR (BEAKER) (test 15 mL/min/1.73 sq m ESTIMATED GFR IS NOT cqau=8389) ACCURATE CREATININE CLEARANCE IN PREDICTING GLOMERULAR FILTRATION RATE. ESTIMATED GFR IS NOT APPLICABLE FOR DIALYSIS PATIENTS. [id number] 05:40:00 Test Item Value Reference Range Comments MAGNESIUM (BEAKER) (test 2.1 mg/dL 1.6-2.6 Specimen slightly hemolyzed tbiq=450) BASIC METABOLIC [id number] 23:13:00 Test Item Value Reference Range Comments SODIUM (BEAKER) (test 133 meq/L 136-145 vyad=373) POTASSIUM (BEAKER) (test 3.6 meq/L 3.5-5.1 gili=767) CHLORIDE (BEAKER) (test 98 meq/L 98-107 qkae=768) CO2 (BEAKER) (test 26 meq/L 22-29 shod=498) BLOOD UREA NITROGEN 42 mg/dL 7-21 (BEAKER) (test itbs=534) CREATININE (BEAKER) (test 3.20 mg/dL 0.57-1.25 sfws=634) GLUCOSE RANDOM (BEAKER) 113 mg/dL 70-105 (test inya=625) CALCIUM (BEAKER) (test 6.9 mg/dL 8.4-10.2 ywse=703) EGFR (BEAKER) (test 15 mL/min/1.73 sq m ESTIMATED GFR IS NOT vwjv=5685) ACCURATE CREATININE CLEARANCE IN PREDICTING GLOMERULAR FILTRATION RATE. ESTIMATED GFR IS NOT APPLICABLE FOR DIALYSIS PATIENTS. BASIC METABOLIC [id number] 18:45:00 Test Item Value Reference Range Comments SODIUM (BEAKER) (test 134 meq/L 136-145 vmwg=551) POTASSIUM (BEAKER) (test 3.8 meq/L 3.5-5.1 giyk=481) CHLORIDE (BEAKER) (test 100 meq/L 98-107 zxag=143) CO2 (BEAKER) (test 25 meq/L 22-29 oycu=094) BLOOD UREA NITROGEN 37 mg/dL 7-21 (BEAKER) (test konn=684) CREATININE (BEAKER) (test 2.98 mg/dL 0.57-1.25 qajh=532) GLUCOSE RANDOM (BEAKER) 131 mg/dL 70-105 (test huqg=865) CALCIUM (BEAKER) (test 7.3 mg/dL 8.4-10.2 arvr=613) EGFR (BEAKER) (test 16 mL/min/1.73 sq m ESTIMATED GFR IS NOT ehpy=0455) ACCURATE CREATININE CLEARANCE IN PREDICTING GLOMERULAR FILTRATION RATE. ESTIMATED GFR IS NOT APPLICABLE FOR DIALYSIS PATIENTS. POCT-GLUCOSE [id number] 10:29:00 Test Item Value Reference Range Comments POC-GLUCOSE METER (BEAKER) 93 mg/dL 70-110 TESTED AT [facility] [address] [place] [address] (test apdj=3352) [facility] [address] BASIC METABOLIC [id number] 07:02:00 Test Item Value Reference Range Comments SODIUM (BEAKER) (test 133 meq/L 136-145 pmeo=761) POTASSIUM (BEAKER) (test 3.7 meq/L 3.5-5.1 povo=511) CHLORIDE (BEAKER) (test 97 meq/L 98-107 ulok=755) CO2 (BEAKER) (test 25 meq/L 22-29 gxsi=628) BLOOD UREA NITROGEN 70 mg/dL 7-21 (BEAKER) (test onqz=180) CREATININE (BEAKER) (test 4.25 mg/dL 0.57-1.25 gtew=658) GLUCOSE RANDOM (BEAKER) 93 mg/dL 70-105 (test slld=591) CALCIUM (BEAKER) (test 7.2 mg/dL 8.4-10.2 ytio=760) EGFR (BEAKER) (test 11 mL/min/1.73 sq m ESTIMATED GFR IS NOT rmvc=9290) ACCURATE CREATININE CLEARANCE IN PREDICTING GLOMERULAR FILTRATION RATE. ESTIMATED GFR IS NOT APPLICABLE FOR DIALYSIS PATIENTS. [id number] 07:01:00 Test Item Value Reference Range Comments MAGNESIUM (BEAKER) (test ejum=977) 2.2 mg/dL 1.6-2.6 CBC W/PLT COUNT & AUTO [id number] 06:36:00 Test Item Value Reference Range Comments WHITE BLOOD CELL COUNT (BEAKER) (test nmqt=946) 6.2 K/ L 3.5-10.5 RED BLOOD CELL COUNT (BEAKER) (test bdpa=562) 2.89 M/ L 3.93-5.22 HEMOGLOBIN (BEAKER) (test vgfh=446) 9.5 GM/DL 11.2-15.7 HEMATOCRIT (BEAKER) (test orkk=071) 31.1 % 34.1-44.9 MEAN CORPUSCULAR VOLUME (BEAKER) (test stmm=553) 107.6 fL 79.4-94.8 MEAN CORPUSCULAR HEMOGLOBIN (BEAKER) (test 32.9 pg 25.6-32.2 xtrv=441) MEAN CORPUSCULAR HEMOGLOBIN CONC (BEAKER) (test 30.5 GM/DL 32.2-35.5 krab=233) RED CELL DISTRIBUTION WIDTH (BEAKER) (test 24.9 % 11.7-14.4 rtft=667) PLATELET COUNT (BEAKER) (test tacz=025) 73 K/CU MM 150-450 MEAN PLATELET VOLUME (BEAKER) (test teas=246) 13.4 fL 9.4-12.3 NUCLEATED RED BLOOD CELLS (BEAKER) (test 0 /100 WBC 0-0 oxkw=877) NEUTROPHILS RELATIVE PERCENT (BEAKER) (test 87 % iqdz=856) LYMPHOCYTES RELATIVE PERCENT (BEAKER) (test 5 % tgot=490) MONOCYTES RELATIVE PERCENT (BEAKER) (test 7 % gxys=326) EOSINOPHILS RELATIVE PERCENT (BEAKER) (test 0 % eaya=626) BASOPHILS RELATIVE PERCENT (BEAKER) (test 0 % vbmn=934) NEUTROPHILS ABSOLUTE COUNT (BEAKER) (test 5.36 K/ L 1.56-6.13 ixjt=750) LYMPHOCYTES ABSOLUTE COUNT (BEAKER) (test 0.31 K/ L 1.18-3.74 pazl=862) MONOCYTES ABSOLUTE COUNT (BEAKER) (test sfsb=699) 0.44 K/ L 0.24-0.36 EOSINOPHILS ABSOLUTE COUNT (BEAKER) (test 0.01 K/ L 0.04-0.36 rzyu=711) BASOPHILS ABSOLUTE COUNT (BEAKER) (test tjbj=084) 0.00 K/ L 0.01-0.08 IMMATURE GRANULOCYTES-RELATIVE PERCENT (BEAKER) 1 % 0-1 (test mlir=0310) [id number] 06:35:00 Test Item Value Reference Range Comments PROTIME (BEAKER) (test oqqg=494) 15.3 seconds 11.7-14.7 INR (BEAKER) (test qtpj=501) 1.2 <=5.9 PARTIAL THROMBOPLASTIN TIME (BEAKER) (test 29.7 seconds 22.5-36.0 opba=471) RECOMMENDED COUMADIN/WARFARIN INR THERAPY RANGESSTANDARD DOSE: 2.0 - 3.0 Includes: PROPHYLAXIS forvenous thrombosis, systemic embolization; TREATMENT for venous thrombosis and/or pulmonary embolus.HIGH RISK: Target INR is 2.5-3.5 for patients with mechanical heart valves.[id number] 23:55:00 Test Item Value Reference Range Comments PHOSPHORUS (BEAKER) (test hxtt=915) 6.1 mg/dL 2.3-4.7 BASIC METABOLIC [id number] 23:55:00 Test Item Value Reference Range Comments SODIUM (BEAKER) (test 135 meq/L 136-145 qhug=760) POTASSIUM (BEAKER) (test 3.6 meq/L 3.5-5.1 jhgz=994) CHLORIDE (BEAKER) (test 97 meq/L 98-107 xdvo=443) CO2 (BEAKER) (test 26 meq/L 22-29 tlwx=512) BLOOD UREA NITROGEN 63 mg/dL 7-21 (BEAKER) (test nspm=141) CREATININE (BEAKER) (test 3.99 mg/dL 0.57-1.25 dgst=404) GLUCOSE RANDOM (BEAKER) 121 mg/dL 70-105 (test msbf=123) CALCIUM (BEAKER) (test 7.2 mg/dL 8.4-10.2 nvep=503) EGFR (BEAKER) (test 12 mL/min/1.73 sq m ESTIMATED GFR IS NOT jtgl=7367) ACCURATE CREATININE CLEARANCE IN PREDICTING GLOMERULAR FILTRATION RATE. ESTIMATED GFR IS NOT APPLICABLE FOR DIALYSIS PATIENTS. BASIC METABOLIC [id number] 17:30:00 Test Item Value Reference Range Comments SODIUM (BEAKER) (test 137 meq/L 136-145 tvwh=580) POTASSIUM (BEAKER) (test 3.7 meq/L 3.5-5.1 egmo=548) CHLORIDE (BEAKER) (test 98 meq/L 98-107 unaw=964) CO2 (BEAKER) (test 27 meq/L 22-29 iqsk=122) BLOOD UREA NITROGEN 53 mg/dL 7-21 (BEAKER) (test qahw=144) CREATININE (BEAKER) (test 3.30 mg/dL 0.57-1.25 ghzu=946) GLUCOSE RANDOM (BEAKER) 105 mg/dL 70-105 (test dtrp=304) CALCIUM (BEAKER) (test 8.1 mg/dL 8.4-10.2 ouyj=831) EGFR (BEAKER) (test 15 mL/min/1.73 sq m ESTIMATED GFR IS NOT ucgd=0001) ACCURATE CREATININE CLEARANCE IN PREDICTING GLOMERULAR FILTRATION RATE. ESTIMATED GFR IS NOT APPLICABLE FOR DIALYSIS PATIENTS. HEPATIC FUNCTION [id number] 17:26:00 Test Item Value Reference Range Comments TOTAL PROTEIN (BEAKER) (test fioq=587) 6.7 gm/dL 6.0-8.3 ALBUMIN (BEAKER) (test xnrv=7877) 3.1 g/dL 3.5-5.0 BILIRUBIN TOTAL (BEAKER) (test lkzf=006) 1.6 mg/dL 0.2-1.2 BILIRUBIN DIRECT (BEAKER) (test cgtf=640) 0.7 mg/dL 0.1-0.5 ALKALINE PHOSPHATASE (BEAKER) (test acbb=612) 63 U/L 40-150 AST (SGOT) (BEAKER) (test enxc=877) 48 U/L 5-34 ALT (SGPT) (BEAKER) (test ddgh=352) 24 U/L 6-55 BASIC METABOLIC [id number] 15:15:00 Test Item Value Reference Range Comments SODIUM (BEAKER) (test 134 meq/L 136-145 rrpm=058) POTASSIUM (BEAKER) (test 4.1 meq/L 3.5-5.1 qvfo=990) CHLORIDE (BEAKER) (test 94 meq/L 98-107 oxdz=596) CO2 (BEAKER) (test 23 meq/L 22-29 xtsi=088) BLOOD UREA NITROGEN 112 mg/dL 7-21 (BEAKER) (test srfg=720) CREATININE (BEAKER) (test 5.93 mg/dL 0.57-1.25 ctzp=387) GLUCOSE RANDOM (BEAKER) 104 mg/dL 70-105 (test chug=180) CALCIUM (BEAKER) (test 7.2 mg/dL 8.4-10.2 ixxt=999) EGFR (BEAKER) (test 7 mL/min/1.73 sq m ESTIMATED GFR IS NOT pygv=7673) ACCURATE CREATININE CLEARANCE IN PREDICTING GLOMERULAR FILTRATION RATE. ESTIMATED GFR IS NOT APPLICABLE FOR DIALYSIS PATIENTS. URINE IMMUNOFIXATION, [id number] 15:09:00 Test Item Value Reference Range Comments PROTEIN, URINE (BEAKER) (test 412 mg/dL 0-14 ijqg=6282) ALBUMIN URINE ELP (BEAKER) 56.3 % (test wkwa=2591) GAMMA GLOBULIN URINE (BEAKER) 43.7 % (test ubwx=1884) URINE JUDSON ID-[id number] (BEAKER) No monoclonal proteins or (test smpp=3508) monoclonal free light chains detected. [id number] (BEAKER) Barbie Mccollum MD (test kvqh=5832) (electronic signature) URINE PROTEIN ELECTROPHORESIS, [id number] 13:02:00 Test Item Value Reference Range Comments PROTEIN, URINE (BEAKER) (test 412 mg/dL 0-14 rzkx=7262) ALBUMIN URINE ELP (BEAKER) 56.3 % (test janu=3364) GAMMA GLOBULIN URINE (BEAKER) 43.7 % (test sixo=4256) UPEP, ID-438 (BEAKER) (test No monoclonal bands detected. uraf=6231) [id number] (BEAKER) Barbie Mccollum MD (test xkul=9839) (electronic signature) [id number] 08:19:00 Test Item Value Reference Range Comments HAPTOGLOBIN (BEAKER) (test pvyg=872) < mg/dL 14-258 BASIC METABOLIC [id number] 07:44:00 Test Item Value Reference Range Comments SODIUM (BEAKER) (test 133 meq/L 136-145 gxpi=181) POTASSIUM (BEAKER) (test 4.4 meq/L 3.5-5.1 ystn=167) CHLORIDE (BEAKER) (test 95 meq/L 98-107 dlbm=022) CO2 (BEAKER) (test 23 meq/L 22-29 tyxo=194) BLOOD UREA NITROGEN 108 mg/dL 7-21 (BEAKER) (test osaa=440) CREATININE (BEAKER) (test 5.79 mg/dL 0.57-1.25 fisz=160) GLUCOSE RANDOM (BEAKER) 107 mg/dL 70-105 (test ytnr=790) CALCIUM (BEAKER) (test 7.4 mg/dL 8.4-10.2 cgml=349) EGFR (BEAKER) (test 8 mL/min/1.73 sq m ESTIMATED GFR IS NOT jctb=7386) ACCURATE CREATININE CLEARANCE IN PREDICTING GLOMERULAR FILTRATION RATE. ESTIMATED GFR IS NOT APPLICABLE FOR DIALYSIS PATIENTS. [id number] 07:29:00 Test Item Value Reference Range Comments MAGNESIUM (BEAKER) (test iytl=054) 2.6 mg/dL 1.6-2.6 LACTATE DEHYDROGENASE (LDH)2018-03-22 07:29:00 Test Item Value Reference Range Comments LACTATE DEHYDROGENASE (BEAKER) (test vhjs=724) 812 U/L 125-220 CBC W/PLT COUNT & AUTO [id number] 07:15:00 Test Item Value Reference Range Comments WHITE BLOOD CELL COUNT (BEAKER) (test bwpq=159) 5.5 K/ L 3.5-10.5 RED BLOOD CELL COUNT (BEAKER) (test aaoy=378) 2.90 M/ L 3.93-5.22 HEMOGLOBIN (BEAKER) (test nqxk=121) 9.5 GM/DL 11.2-15.7 HEMATOCRIT (BEAKER) (test iacg=997) 30.7 % 34.1-44.9 MEAN CORPUSCULAR VOLUME (BEAKER) (test mctw=969) 105.9 fL 79.4-94.8 MEAN CORPUSCULAR HEMOGLOBIN (BEAKER) (test 32.8 pg 25.6-32.2 hzhr=322) MEAN CORPUSCULAR HEMOGLOBIN CONC (BEAKER) (test 30.9 GM/DL 32.2-35.5 ejdf=167) RED CELL DISTRIBUTION WIDTH (BEAKER) (test 24.7 % 11.7-14.4 nxrn=411) PLATELET COUNT (BEAKER) (test rusp=984) 56 K/CU MM 150-450 MEAN PLATELET VOLUME (BEAKER) (test gnkx=603) 11.6 fL 9.4-12.3 NUCLEATED RED BLOOD CELLS (BEAKER) (test 0 /100 WBC 0-0 zagz=234) NEUTROPHILS RELATIVE PERCENT (BEAKER) (test 83 % exwd=024) LYMPHOCYTES RELATIVE PERCENT (BEAKER) (test 9 % ditc=201) MONOCYTES RELATIVE PERCENT (BEAKER) (test 7 % dlcl=144) EOSINOPHILS RELATIVE PERCENT (BEAKER) (test 0 % fxun=364) BASOPHILS RELATIVE PERCENT (BEAKER) (test 0 % uoen=408) NEUTROPHILS ABSOLUTE COUNT (BEAKER) (test 4.58 K/ L 1.56-6.13 nydo=470) LYMPHOCYTES ABSOLUTE COUNT (BEAKER) (test 0.49 K/ L 1.18-3.74 zvom=367) MONOCYTES ABSOLUTE COUNT (BEAKER) (test nplz=333) 0.39 K/ L 0.24-0.36 EOSINOPHILS ABSOLUTE COUNT (BEAKER) (test 0.00 K/ L 0.04-0.36 fnxp=828) BASOPHILS ABSOLUTE COUNT (BEAKER) (test bhfz=552) 0.01 K/ L 0.01-0.08 IMMATURE GRANULOCYTES-RELATIVE PERCENT (BEAKER) 1 % 0-1 (test nobp=8182) RETICULOCYTE [id number] 07:08:00 Test Item Value Reference Range Comments RETICULOCYTE COUNT PCT (BEAKER) (test ygag=660) 13.4 % 0.5-1.7 [id number] 07:07:00 Test Item Value Reference Range Comments PROTIME (BEAKER) (test gbce=305) 16.2 seconds 11.7-14.7 INR (BEAKER) (test sqtu=157) 1.3 <=5.9 PARTIAL THROMBOPLASTIN TIME (BEAKER) (test 31.2 seconds 22.5-36.0 vmoe=434) RECOMMENDED COUMADIN/WARFARIN INR THERAPY RANGESSTANDARD DOSE: 2.0 - 3.0 Includes: PROPHYLAXIS forvenous thrombosis, systemic embolization; TREATMENT for venous thrombosis and/or pulmonary embolus.HIGH RISK: Target INR is 2.5-3.5 for patients with mechanical heart valves.PROTHROMBIN [id number] 07:06: 00 Test Item Value Reference Range Comments PROTIME (BEAKER) (test srod=267) 16.2 seconds 11.7-14.7 INR (BEAKER) (test qkbt=832) 1.3 <=5.9 RECOMMENDED COUMADIN/WARFARIN INR THERAPY RANGESSTANDARD DOSE: 2.0 - 3.0 Includes: PROPHYLAXIS forvenous thrombosis, systemic embolization; TREATMENT for venous thrombosis and/or pulmonary embolus.HIGH RISK: Target INR is 2.5-3.5 for patients with mechanical heart valves.BASIC METABOLIC [id number] 22:18: 00 Test Item Value Reference Range Comments SODIUM (BEAKER) (test 132 meq/L 136-145 uktc=472) POTASSIUM (BEAKER) (test 4.7 meq/L 3.5-5.1 tpyy=785) CHLORIDE (BEAKER) (test 95 meq/L 98-107 gnlv=869) CO2 (BEAKER) (test 22 meq/L 22-29 baqp=337) BLOOD UREA NITROGEN 99 mg/dL 7-21 (BEAKER) (test xxvu=325) CREATININE (BEAKER) (test 5.57 mg/dL 0.57-1.25 lnuu=805) GLUCOSE RANDOM (BEAKER) 139 mg/dL 70-105 (test rcjp=372) CALCIUM (BEAKER) (test 7.3 mg/dL 8.4-10.2 vgbw=113) EGFR (BEAKER) (test 8 mL/min/1.73 sq m ESTIMATED GFR IS NOT hxzj=2030) ACCURATE CREATININE CLEARANCE IN PREDICTING GLOMERULAR FILTRATION RATE. ESTIMATED GFR IS NOT APPLICABLE FOR DIALYSIS PATIENTS. RAD, CHEST, 1 VIEW, NON [id number] 18:54:00Reason for exam:->cough, chest congestionShould this be [...] MDReport Verified Date/Time: 03/21/2018 18:54:34 Reading Location: [facility] C013Y CT Body Reading Room BASIC METABOLIC [id number] 16:55:00 Test Item Value Reference Range Comments SODIUM (BEAKER) (test 135 meq/L 136-145 qhqh=754) POTASSIUM (BEAKER) (test 5.1 meq/L 3.5-5.1 timd=206) CHLORIDE (BEAKER) (test 97 meq/L 98-107 ffwn=807) CO2 (BEAKER) (test 20 meq/L 22-29 rdbu=647) BLOOD UREA NITROGEN 100 mg/dL 7-21 (BEAKER) (test ghtb=638) CREATININE (BEAKER) (test 5.45 mg/dL 0.57-1.25 cghh=559) GLUCOSE RANDOM (BEAKER) 133 mg/dL 70-105 (test ztol=663) CALCIUM (BEAKER) (test 7.7 mg/dL 8.4-10.2 sdaj=538) EGFR (BEAKER) (test 8 mL/min/1.73 sq m ESTIMATED GFR IS NOT aoah=8478) ACCURATE CREATININE CLEARANCE IN PREDICTING GLOMERULAR FILTRATION RATE. ESTIMATED GFR IS NOT APPLICABLE FOR DIALYSIS PATIENTS. BLOOD [id number] 13:00:00 Test Item Value Reference Range Comments CULTURE (BEAKER) (test szkd=9461) No growth in 5 days BASIC METABOLIC [id number] 12:42:00 Test Item Value Reference Range Comments SODIUM (BEAKER) (test 134 meq/L 136-145 wuye=251) POTASSIUM (BEAKER) (test 4.7 meq/L 3.5-5.1 jpym=063) CHLORIDE (BEAKER) (test 95 meq/L 98-107 xnlx=163) CO2 (BEAKER) (test 21 meq/L 22-29 knep=351) BLOOD UREA NITROGEN 97 mg/dL 7-21 (BEAKER) (test kmnm=144) CREATININE (BEAKER) (test 5.18 mg/dL 0.57-1.25 unzs=391) GLUCOSE RANDOM (BEAKER) 121 mg/dL 70-105 (test fjok=486) CALCIUM (BEAKER) (test 7.9 mg/dL 8.4-10.2 fqet=538) EGFR (BEAKER) (test 9 mL/min/1.73 sq m ESTIMATED GFR IS NOT bmvn=2064) ACCURATE CREATININE CLEARANCE IN PREDICTING GLOMERULAR FILTRATION RATE. ESTIMATED GFR IS NOT APPLICABLE FOR DIALYSIS PATIENTS. BASIC METABOLIC [id number] 06:21:00 Test Item Value Reference Range Comments SODIUM (BEAKER) (test 133 meq/L 136-145 arbf=438) POTASSIUM (BEAKER) (test 4.6 meq/L 3.5-5.1 bbdl=839) CHLORIDE (BEAKER) (test 97 meq/L 98-107 gfkv=118) CO2 (BEAKER) (test 18 meq/L 22-29 bdkd=900) BLOOD UREA NITROGEN 89 mg/dL 7-21 (BEAKER) (test iyxg=289) CREATININE (BEAKER) (test 4.86 mg/dL 0.57-1.25 ndqk=431) GLUCOSE RANDOM (BEAKER) 117 mg/dL 70-105 (test ttmi=348) CALCIUM (BEAKER) (test 7.9 mg/dL 8.4-10.2 xctz=739) EGFR (BEAKER) (test 9 mL/min/1.73 sq m ESTIMATED GFR IS NOT gcwa=3436) ACCURATE CREATININE CLEARANCE IN PREDICTING GLOMERULAR FILTRATION RATE. ESTIMATED GFR IS NOT APPLICABLE FOR DIALYSIS PATIENTS. [id number] 05:54:00 Test Item Value Reference Range Comments MAGNESIUM (BEAKER) (test kdcv=856) 2.4 mg/dL 1.6-2.6 CBC (HEMOGRAM ONLY)2018-03-21 05:23:00 Test Item Value Reference Range Comments WHITE BLOOD CELL COUNT (BEAKER) (test inmk=138) 7.6 K/ L 3.5-10.5 RED BLOOD CELL COUNT (BEAKER) (test qocp=845) 3.13 M/ L 3.93-5.22 HEMOGLOBIN (BEAKER) (test xyjn=122) 10.1 GM/DL 11.2-15.7 HEMATOCRIT (BEAKER) (test lhdw=053) 32.1 % 34.1-44.9 MEAN CORPUSCULAR VOLUME (BEAKER) (test pmjw=224) 102.6 fL 79.4-94.8 MEAN CORPUSCULAR HEMOGLOBIN (BEAKER) (test 32.3 pg 25.6-32.2 gaow=123) MEAN CORPUSCULAR HEMOGLOBIN CONC (BEAKER) (test 31.5 GM/DL 32.2-35.5 veam=938) RED CELL DISTRIBUTION WIDTH (BEAKER) (test 24.0 % 11.7-14.4 lskm=811) PLATELET COUNT (BEAKER) (test gixg=963) 68 K/CU MM 150-450 MEAN PLATELET VOLUME (BEAKER) (test whwl=828) 14.4 fL 9.4-12.3 NUCLEATED RED BLOOD CELLS (BEAKER) (test 1 /100 WBC 0-0 qrpk=482) BASIC METABOLIC [id number] 00:47:00 Test Item Value Reference Range Comments SODIUM (BEAKER) (test 134 meq/L 136-145 ihwm=470) POTASSIUM (BEAKER) (test 4.7 meq/L 3.5-5.1 zlrm=331) CHLORIDE (BEAKER) (test 97 meq/L 98-107 tpxr=080) CO2 (BEAKER) (test 22 meq/L 22-29 cull=596) BLOOD UREA NITROGEN 86 mg/dL 7-21 (BEAKER) (test deey=192) CREATININE (BEAKER) (test 4.81 mg/dL 0.57-1.25 xjfk=415) GLUCOSE RANDOM (BEAKER) 115 mg/dL 70-105 (test etql=525) CALCIUM (BEAKER) (test 7.9 mg/dL 8.4-10.2 ogml=311) EGFR (BEAKER) (test 9 mL/min/1.73 sq m ESTIMATED GFR IS NOT zkzk=6016) ACCURATE CREATININE CLEARANCE IN PREDICTING GLOMERULAR FILTRATION RATE. ESTIMATED GFR IS NOT APPLICABLE FOR DIALYSIS PATIENTS. HEPATITIS C [id number] 13:26:00 Test Item Value Reference Range Comments HEPATITIS C ANTIBODY (BEAKER) (test ucag=346) Nonreactive Nonreactive BASIC METABOLIC [id number] 13:08:00 Test Item Value Reference Range Comments SODIUM (BEAKER) (test 133 meq/L 136-145 qaoo=462) POTASSIUM (BEAKER) (test 5.0 meq/L 3.5-5.1 ymft=641) CHLORIDE (BEAKER) (test 92 meq/L 98-107 ubph=677) CO2 (BEAKER) (test 21 meq/L 22-29 ahsv=635) BLOOD UREA NITROGEN 123 mg/dL 7-21 (BEAKER) (test tpwk=201) CREATININE (BEAKER) (test 5.93 mg/dL 0.57-1.25 mhrn=781) GLUCOSE RANDOM (BEAKER) 108 mg/dL 70-105 (test fzin=930) CALCIUM (BEAKER) (test 8.1 mg/dL 8.4-10.2 zwxo=594) EGFR (BEAKER) (test 7 mL/min/1.73 sq m ESTIMATED GFR IS NOT gpni=0825) ACCURATE CREATININE CLEARANCE IN PREDICTING GLOMERULAR FILTRATION RATE. ESTIMATED GFR IS NOT APPLICABLE FOR DIALYSIS PATIENTS. T4, [id number] 09:25:00 Test Item Value Reference Range Comments FREE T4 (BEAKER) (test uhjd=573) 0.67 ng/dL 0.70-1.48 TSH/FREE T4 IF [id number] 09:04:00 Test Item Value Reference Range Comments THYROID STIMULATING HORMONE (BEAKER) (test 7.12 uIU/mL 0.35-4.94 efri=228) BASIC METABOLIC [id number] 07:17:00 Test Item Value Reference Range Comments SODIUM (BEAKER) (test 132 meq/L 136-145 kwpg=441) POTASSIUM (BEAKER) (test 4.6 meq/L 3.5-5.1 uocn=633) CHLORIDE (BEAKER) (test 92 meq/L 98-107 dfes=620) CO2 (BEAKER) (test 22 meq/L 22-29 znsl=763) BLOOD UREA NITROGEN 119 mg/dL 7-21 (BEAKER) (test acsm=761) CREATININE (BEAKER) (test 5.68 mg/dL 0.57-1.25 xcpc=649) GLUCOSE RANDOM (BEAKER) 108 mg/dL 70-105 (test tmjt=500) CALCIUM (BEAKER) (test 8.0 mg/dL 8.4-10.2 lvim=992) EGFR (BEAKER) (test 8 mL/min/1.73 sq m ESTIMATED GFR IS NOT dlkp=6015) ACCURATE CREATININE CLEARANCE IN PREDICTING GLOMERULAR FILTRATION RATE. ESTIMATED GFR IS NOT APPLICABLE FOR DIALYSIS PATIENTS. CBC (HEMOGRAM ONLY)2018-03-20 06:25:00 Test Item Value Reference Range Comments WHITE BLOOD CELL COUNT (BEAKER) (test cqby=713) 7.0 K/ L 3.5-10.5 RED BLOOD CELL COUNT (BEAKER) (test alug=303) 2.95 M/ L 3.93-5.22 HEMOGLOBIN (BEAKER) (test yypw=053) 9.5 GM/DL 11.2-15.7 HEMATOCRIT (BEAKER) (test xxrv=992) 29.3 % 34.1-44.9 MEAN CORPUSCULAR VOLUME (BEAKER) (test qpuw=998) 99.3 fL 79.4-94.8 MEAN CORPUSCULAR HEMOGLOBIN (BEAKER) (test 32.2 pg 25.6-32.2 yuob=873) MEAN CORPUSCULAR HEMOGLOBIN CONC (BEAKER) (test 32.4 GM/DL 32.2-35.5 cyvy=701) RED CELL DISTRIBUTION WIDTH (BEAKER) (test 22.7 % 11.7-14.4 wewv=222) PLATELET COUNT (BEAKER) (test ychj=597) 53 K/CU MM 150-450 NUCLEATED RED BLOOD CELLS (BEAKER) (test 1 /100 WBC 0-0 qbbv=751) BASIC METABOLIC [id number] 03:08:00 Test Item Value Reference Range Comments SODIUM (BEAKER) (test 130 meq/L 136-145 fhnn=798) POTASSIUM (BEAKER) (test 4.9 meq/L 3.5-5.1 ktam=295) CHLORIDE (BEAKER) (test 92 meq/L 98-107 tozm=027) CO2 (BEAKER) (test 21 meq/L 22-29 tqdn=672) BLOOD UREA NITROGEN 117 mg/dL 7-21 (BEAKER) (test kzhe=923) CREATININE (BEAKER) (test 5.66 mg/dL 0.57-1.25 zyhd=121) GLUCOSE RANDOM (BEAKER) 124 mg/dL 70-105 (test nrwe=455) CALCIUM (BEAKER) (test 7.9 mg/dL 8.4-10.2 uljl=398) EGFR (BEAKER) (test 8 mL/min/1.73 sq m ESTIMATED GFR IS NOT ngar=8241) ACCURATE CREATININE CLEARANCE IN PREDICTING GLOMERULAR FILTRATION RATE. ESTIMATED GFR IS NOT APPLICABLE FOR DIALYSIS PATIENTS. BASIC METABOLIC [id number] 20:16:00 Test Item Value Reference Range Comments SODIUM (BEAKER) (test 131 meq/L 136-145 rkoc=184) POTASSIUM (BEAKER) (test 5.0 meq/L 3.5-5.1 nrow=995) CHLORIDE (BEAKER) (test 92 meq/L 98-107 efjh=491) CO2 (BEAKER) (test 22 meq/L 22-29 cpkv=280) BLOOD UREA NITROGEN 113 mg/dL 7-21 (BEAKER) (test segt=014) CREATININE (BEAKER) (test 5.58 mg/dL 0.57-1.25 nuta=801) GLUCOSE RANDOM (BEAKER) 112 mg/dL 70-105 (test mgsn=431) CALCIUM (BEAKER) (test 8.1 mg/dL 8.4-10.2 ajeh=560) EGFR (BEAKER) (test 8 mL/min/1.73 sq m ESTIMATED GFR IS NOT jzvk=1024) ACCURATE CREATININE CLEARANCE IN PREDICTING GLOMERULAR FILTRATION RATE. ESTIMATED GFR IS NOT APPLICABLE FOR DIALYSIS PATIENTS. PROTEIN ELECTROPHORESIS, [id number] 17:31:00 Test Item Value Reference Range Comments ALBUMIN FRACTION (BEAKER) 2.7 g/dL 3.5-5.5 (test quyz=205) ALPHA 1 FRACTION (BEAKER) 0.4 g/dL 0.2-0.4 (test xkdy=468) ALPHA 2 FRACTION (BEAKER) 0.5 g/dL 0.5-0.9 (test higg=389) BETA FRACTION (BEAKER) (test 0.8 g/dL 0.6-1.1 zllm=870) GAMMA GLOBULIN FRACTION 2.2 g/dL 0.7-1.7 (BEAKER) (test jglt=534) INTERPRETATION-119 (BEAKER) Polyclonal elevation of gamma (test cmvi=5397) fraction, suggestive of chronic inflammatory response. Serum JUDSON pending to evaluate for presence of small underlying monoclonal protein in this region. [id number] Barbie Mccollum MD (BEAKER) (test ztqd=1482) (electronic signature) PROTEIN TOTAL SERUM, SPEP 6.7 gm/dL 6.0-8.3 (BEAKER) (test wehr=2913) IMMUNOFIXATION ELECTROPHORESIS (JUDSON)2018-03-19 17:31:00 Test Item Value Reference Range Comments IMMUNOGLOBULIN G (IGG) (BEAKER) 2008 mg/dL 540-1822 (test vhij=467) IMMUNOGLOBULIN A (IGA) (BEAKER) 37 mg/dL 63-484 (test upen=858) IMMUNOGLOBULIN M (IGM) (BEAKER) 673 mg/dL 22-293 (test wiyz=066) SERUM JUDSON ID (BEAKER) (test No monoclonal proteins jjvw=5449) detected. Polyclonal elevation of gamma globulins. [id number] ([facility]) Barbie Mccollum MD (test sdkp=2076) (electronic signature) ANTI-NUCLEAR ANTIBODY (SARAH)2018-03-19 10:18:00 Test Item Value Reference Range Comments ANTI-NUCLEAR ANTIBODY (SARAH) (BEAKER) (test Positive Negative tqml=033) Test performed by IFA method.SARAH TITER AND [id number] 10:18:00 Test Item Value Reference Range Comments SARAH TITER (BEAKER) (test gwee=2209) >=:2560 SARAH PATTERN (BEAKER) (test eihs=9060) Speckled FLOW [id number] 09:17:00Flow Cytometry Report Case: [id number] Authorizing Provider: Jordan Sultana MD Collected: 03/17/2018 1500 Ordering Location: [address] Med/Surg Received: 03/17/2018 0314 Pathologist: Doug Lee MD Specimen: Other BONE [...] findings in the bone marrow biopsy report([id number]) .[id number] wf with h/o right breast ca s/p surgery and chemo xrt in 2013 found to have recurrence with extensive metastases, started on carboplatin and gemcitabine in October 2017, transferred from [facility] for management of MAHA with REJI.BONE MARROW ASPIRATECD8, surface-[place], CD56, surface-Lambda, CD5 , CD19, CD10, CD3, CD20, CD4, CD45, CD14, CD13, CD33, CD117, CD34, cKappa, cLambda, CD38, [id number] Viability: 92.4% Number of Events Acquired: [id number] The following populations are identified: Blasts: the [...] developed and their performance characteristics determined by [facility] They have not been cleared or approved by the U.S. Food and Drug Administration. The FDA has determined that such clearance or approval is not necessary. It should not be regarded as investigational or for research. This laboratory is certified under the Clinical Laboratory Improvement Amendments [id number] ("CLIA") as qualified to perform high-complexity clinical testing.FLOW CYTOMETRY [id number] 09:16:00 Test Item Value Reference Range Comments FLOW CYTOMETRY RESULT POINTER (BEAKER) See Separate Report (test wdiv=7095) FLOW CYTOMETRY AP CASE # (BEAKER) (test [id number] hsfr=8586) BASIC METABOLIC [id number] 06:55:00 Test Item Value Reference Range Comments SODIUM (BEAKER) (test 131 meq/L 136-145 uodb=453) POTASSIUM (BEAKER) (test 4.8 meq/L 3.5-5.1 dcps=171) CHLORIDE (BEAKER) (test 93 meq/L 98-107 unvz=845) CO2 (BEAKER) (test 20 meq/L 22-29 oqga=410) BLOOD UREA NITROGEN 99 mg/dL 7-21 (BEAKER) (test hmqv=407) CREATININE (BEAKER) (test 4.97 mg/dL 0.57-1.25 uhqy=018) GLUCOSE RANDOM (BEAKER) 100 mg/dL 70-105 (test nqwe=642) CALCIUM (BEAKER) (test 8.3 mg/dL 8.4-10.2 obia=354) EGFR (BEAKER) (test 9 mL/min/1.73 sq m ESTIMATED GFR IS NOT gpad=5759) ACCURATE CREATININE CLEARANCE IN PREDICTING GLOMERULAR FILTRATION RATE. ESTIMATED GFR IS NOT APPLICABLE FOR DIALYSIS PATIENTS. [id number] 06:54:00 Test Item Value Reference Range Comments PHOSPHORUS (BEAKER) (test qexp=487) 7.0 mg/dL 2.3-4.7 PTH, [id number] 06:42:00 Test Item Value Reference Range Comments PARATHYROID HORMONE INTACT (BEAKER) (test 690.0 pg/mL 8.5-72.5 hatz=644) VANCOMYCIN LEVEL, [id number] 06:33:00 Test Item Value Reference Range Comments VANCOMYCIN RANDOM (BEAKER) (test hoys=878) 14.4 ug/mL Reference Range: No NormalsCBC (HEMOGRAM ONLY)2018-03-19 06:14:00 Test Item Value Reference Range Comments WHITE BLOOD CELL COUNT (BEAKER) (test bxop=080) 5.6 K/ L 3.5-10.5 RED BLOOD CELL COUNT (BEAKER) (test ifts=032) 2.35 M/ L 3.93-5.22 HEMOGLOBIN (BEAKER) (test imyu=962) 7.6 GM/DL 11.2-15.7 HEMATOCRIT (BEAKER) (test zfhl=291) 23.7 % 34.1-44.9 MEAN CORPUSCULAR VOLUME (BEAKER) (test xuen=958) 100.9 fL 79.4-94.8 MEAN CORPUSCULAR HEMOGLOBIN (BEAKER) (test 32.3 pg 25.6-32.2 dhee=039) MEAN CORPUSCULAR HEMOGLOBIN CONC (BEAKER) (test 32.1 GM/DL 32.2-35.5 bqea=886) RED CELL DISTRIBUTION WIDTH (BEAKER) (test 23.4 % 11.7-14.4 nlph=161) PLATELET COUNT (BEAKER) (test cymi=645) 61 K/CU MM 150-450 NUCLEATED RED BLOOD CELLS (BEAKER) (test 1 /100 WBC 0-0 tmdh=149) CBC W/PLT COUNT & AUTO [id number] 16:19:00 Test Item Value Reference Range Comments WHITE BLOOD CELL COUNT 5.0 K/ L 3.5-10.5 (BEAKER) (test zmah=901) RED BLOOD CELL COUNT (BEAKER) 2.35 M/ L 3.93-5.22 (test wsbt=213) HEMOGLOBIN (BEAKER) (test 7.6 GM/DL 11.2-15.7 xqnu=659) HEMATOCRIT (BEAKER) (test 23.2 % 34.1-44.9 xvto=243) MEAN CORPUSCULAR VOLUME 98.7 fL 79.4-94.8 (BEAKER) (test mafl=615) MEAN CORPUSCULAR HEMOGLOBIN 32.3 pg 25.6-32.2 (BEAKER) (test ebbh=752) MEAN CORPUSCULAR HEMOGLOBIN 32.8 GM/DL 32.2-35.5 CONC (BEAKER) (test jxqv=843) RED CELL DISTRIBUTION WIDTH 22.5 % 11.7-14.4 (BEAKER) (test zref=575) PLATELET COUNT (BEAKER) (test 65 K/CU MM 150-450 vevd=204) MEAN PLATELET VOLUME (BEAKER) fL 9.4-12.3 Unable to report due to (test ofdt=459) abnormal Platelet population distribution. NUCLEATED RED BLOOD CELLS 1 /100 WBC 0-0 (BEAKER) (test cras=309) NEUTROPHILS RELATIVE PERCENT 77 % (BEAKER) (test ghwt=972) LYMPHOCYTES RELATIVE PERCENT 13 % (BEAKER) (test mavn=829) MONOCYTES RELATIVE PERCENT 9 % (BEAKER) (test zsbz=625) EOSINOPHILS RELATIVE PERCENT 0 % (BEAKER) (test ukxj=925) BASOPHILS RELATIVE PERCENT 0 % (BEAKER) (test mdpg=376) NEUTROPHILS ABSOLUTE COUNT 3.82 K/ L 1.56-6.13 (BEAKER) (test leck=566) LYMPHOCYTES ABSOLUTE COUNT 0.62 K/ L 1.18-3.74 (BEAKER) (test jynk=799) MONOCYTES ABSOLUTE COUNT 0.46 K/ L 0.24-0.36 (BEAKER) (test omel=350) EOSINOPHILS ABSOLUTE COUNT 0.01 K/ L 0.04-0.36 (BEAKER) (test rtnd=452) BASOPHILS ABSOLUTE COUNT 0.01 K/ L 0.01-0.08 (BEAKER) (test ltws=584) IMMATURE GRANULOCYTES-RELATIVE 1 % 0-1 PERCENT (BEAKER) (test ehtn=0915) BASIC METABOLIC [id number] 16:10:00 Test Item Value Reference Range Comments SODIUM (BEAKER) (test 129 meq/L 136-145 fvmc=143) POTASSIUM (BEAKER) (test 4.8 meq/L 3.5-5.1 nvme=173) CHLORIDE (BEAKER) (test 94 meq/L 98-107 utyd=780) CO2 (BEAKER) (test 19 meq/L 22-29 szsz=263) BLOOD UREA NITROGEN 88 mg/dL 7-21 (BEAKER) (test bsur=940) CREATININE (BEAKER) (test 4.42 mg/dL 0.57-1.25 zran=483) GLUCOSE RANDOM (BEAKER) 111 mg/dL 70-105 (test znxs=902) CALCIUM (BEAKER) (test 8.4 mg/dL 8.4-10.2 kevx=019) EGFR (BEAKER) (test 10 mL/min/1.73 sq m ESTIMATED GFR IS NOT xrrd=7363) ACCURATE CREATININE CLEARANCE IN PREDICTING GLOMERULAR FILTRATION RATE. ESTIMATED GFR IS NOT APPLICABLE FOR DIALYSIS PATIENTS. [id number] 11:52:00 Test Item Value Reference Range Comments HAPTOGLOBIN (BEAKER) (test hhzy=076) 34 mg/dL 14-258 PERIPHERAL BLOOD SMEAR - HOLD [id number] 10:25:00 Test Item Value Reference Range Comments PERIPHERAL SMEAR SAVE (BEAKER) (test gkqt=5601) saved CALCIUM, [id number] 09:40:00 Test Item Value Reference Range Comments CALCIUM IONIZED (BEAKER) (test puoa=632) 0.94 mmol/L 1.12-1.27 PH, BLOOD (BEAKER) (test yemn=6430) 7.48 LACTATE DEHYDROGENASE (LDH)2018-03-18 09:27:00 Test Item Value Reference Range Comments LACTATE DEHYDROGENASE (BEAKER) (test vgpi=369) 599 U/L 125-220 CBC (HEMOGRAM ONLY)2018-03-18 09:27:00 Test Item Value Reference Range Comments WHITE BLOOD CELL COUNT (BEAKER) (test lirs=557) 4.2 K/ L 3.5-10.5 RED BLOOD CELL COUNT (BEAKER) (test fjov=008) 2.34 M/ L 3.93-5.22 HEMOGLOBIN (BEAKER) (test thrt=427) 7.4 GM/DL 11.2-15.7 HEMATOCRIT (BEAKER) (test sjbf=334) 22.8 % 34.1-44.9 MEAN CORPUSCULAR VOLUME (BEAKER) (test colx=372) 97.4 fL 79.4-94.8 MEAN CORPUSCULAR HEMOGLOBIN (BEAKER) (test 31.6 pg 25.6-32.2 dwyb=630) MEAN CORPUSCULAR HEMOGLOBIN CONC (BEAKER) (test 32.5 GM/DL 32.2-35.5 dkdh=654) RED CELL DISTRIBUTION WIDTH (BEAKER) (test 22.5 % 11.7-14.4 etuj=048) PLATELET COUNT (BEAKER) (test tnri=543) 39 K/CU MM 150-450 NUCLEATED RED BLOOD CELLS (BEAKER) (test 1 /100 WBC 0-0 ybde=611) RETICULOCYTE [id number] 09:24:00 Test Item Value Reference Range Comments RETICULOCYTE COUNT PCT (BEAKER) (test dxlk=330) 6.9 % 0.5-1.7 [id number] 09:16:00 Test Item Value Reference Range Comments D-DIMER QUANTITATIVE (BEAKER) (test zfso=125) 3.18 MG/L FEU <0.50 Intended Use: The D-Dimer Assay can be used to aid in the diagnosis of Deep Vein Thrombosis (DVT) and Pulmonary Embolism Disease (PED).In patients with low pre-test probability, various studies concerning STA Liatest D-dimer test have reported that with a cutoff value of 0.50 MG/L FEU, the Negative Predictive Value (NPV) regarding the exclusion of thrombosis is within 95-100% range.[id number] 09:14:00 Test Item Value Reference Range Comments PARTIAL THROMBOPLASTIN TIME (BEAKER) (test 38.9 seconds 22.5-36.0 ajyt=814) PROTHROMBIN [id number] 09:13:00 Test Item Value Reference Range Comments PROTIME (BEAKER) (test zllu=129) 15.3 seconds 11.7-14.7 INR (BEAKER) (test pbas=640) 1.2 <=5.9 RECOMMENDED COUMADIN/WARFARIN INR THERAPY RANGESSTANDARD DOSE: 2.0 - 3.0 Includes: PROPHYLAXIS forvenous thrombosis, systemic embolization; TREATMENT for venous thrombosis and/or pulmonary embolus.HIGH RISK: Target INR is 2.5-3.5 for patients with mechanical heart valves.BASIC METABOLIC [id number] 08:52: 00 Test Item Value Reference Range Comments SODIUM (BEAKER) (test 135 meq/L 136-145 nqzl=804) POTASSIUM (BEAKER) (test 4.9 meq/L 3.5-5.1 gjev=179) CHLORIDE (BEAKER) (test 96 meq/L 98-107 mlvy=975) CO2 (BEAKER) (test 23 meq/L 22-29 segg=933) BLOOD UREA NITROGEN 77 mg/dL 7-21 (BEAKER) (test wsit=701) CREATININE (BEAKER) (test 4.04 mg/dL 0.57-1.25 nuuk=762) GLUCOSE RANDOM (BEAKER) 137 mg/dL 70-105 (test qhuf=929) CALCIUM (BEAKER) (test 8.8 mg/dL 8.4-10.2 wqjk=612) EGFR (BEAKER) (test 12 mL/min/1.73 sq m ESTIMATED GFR IS NOT vrbk=0718) ACCURATE CREATININE CLEARANCE IN PREDICTING GLOMERULAR FILTRATION RATE. ESTIMATED GFR IS NOT APPLICABLE FOR DIALYSIS PATIENTS. CALCIUM, [id number] 08:21:00 Test Item Value Reference Range Comments CALCIUM IONIZED (BEAKER) (test kkpe=359) 0.72 mmol/L 1.12-1.27 PH, BLOOD (BEAKER) (test yfmc=4307) 7.46 OSMOLALITY, [id number] 07:36:00 Test Item Value Reference Range Comments OSMOLALITY URINE (BEAKER) (test qgja=573) 316 mOsm/kg 40-1400 OSMOLALITY, [id number] 07:34:00 Test Item Value Reference Range Comments OSMOLALITY, SERUM (BEAKER) (test hlyd=584) 303 mOsm/kg 275-295 CREATININE, RANDOM [id number] 07:26:00 Test Item Value Reference Range Comments CREATININE URINE (BEAKER) (test sezz=342) 36.3 mg/dL Reference Range: No NormalsPOTASSIUM, RANDOM [id number] 07:26:00 Test Item Value Reference Range Comments POTASSIUM URINE (BEAKER) (test nyye=956) 41.5 meq/L Reference Range: No NormalsSODIUM, RANDOM [id number] 07:26:00 Test Item Value Reference Range Comments SODIUM URINE (BEAKER) (test wjax=032) 57 meq/L Reference Range: No NormalsUREA NITROGEN, RANDOM [id number] 07:26:00 Test Item Value Reference Range Comments UREA NITROGEN URINE (BEAKER) (test dldc=500) 298 mg/dL Reference Range: No NormalsPERIPHERAL BLOOD SMEAR - HOLD [id number] 07:20:00 Test Item Value Reference Range Comments PERIPHERAL SMEAR SAVE (BEAKER) (test mwfg=4527) saved BASIC METABOLIC [id number] 06:08:00 Test Item Value Reference Range Comments SODIUM (BEAKER) (test 128 meq/L 136-145 ypam=068) POTASSIUM (BEAKER) (test 4.6 meq/L 3.5-5.1 ddwe=441) CHLORIDE (BEAKER) (test 94 meq/L 98-107 piur=269) CO2 (BEAKER) (test 20 meq/L 22-29 bqtf=681) BLOOD UREA NITROGEN 84 mg/dL 7-21 (BEAKER) (test wqoq=662) CREATININE (BEAKER) (test 4.34 mg/dL 0.57-1.25 uvbl=419) GLUCOSE RANDOM (BEAKER) 120 mg/dL 70-105 (test wdlw=308) CALCIUM (BEAKER) (test 6.8 mg/dL 8.4-10.2 lhgo=526) EGFR (BEAKER) (test 11 mL/min/1.73 sq m ESTIMATED GFR IS NOT nbsd=5486) ACCURATE CREATININE CLEARANCE IN PREDICTING GLOMERULAR FILTRATION RATE. ESTIMATED GFR IS NOT APPLICABLE FOR DIALYSIS PATIENTS. VANCOMYCIN LEVEL, [id number] 06:05:00 Test Item Value Reference Range Comments VANCOMYCIN RANDOM (BEAKER) (test dcdq=602) < ug/mL Reference Range: No NormalsCALCIUM, [id number] 04:20:00 Test Item Value Reference Range Comments CALCIUM IONIZED (BEAKER) (test yhcp=620) 0.81 mmol/L 1.12-1.27 PH, BLOOD (BEAKER) (test kjkq=1099) 7.40 Range 1.12 - 1.59A-[id number] 03:54:00 Test Item Value Reference Range Comments D-DIMER QUANTITATIVE (BEAKER) (test dwjo=213) 4.50 MG/L FEU <0.50 Intended Use: The D-Dimer Assay can be used to aid in the diagnosis of Deep Vein Thrombosis (DVT) and Pulmonary Embolism Disease (PED).In patients with low pre-test probability, various studies concerning STA Liatest D-dimer test have reported that with a cutoff value of 0.50 MG/L FEU, the Negative Predictive Value (NPV) regarding the exclusion of thrombosis is within 95-100% range.[id number] 02:58:00 Test Item Value Reference Range Comments PROCALCITONIN (BEAKER) (test ypfg=8957) 8.65 ng/mL <0.05 SEPSIS RISK (ng/mL)Low: 0.05-0.50Intermediate: 0.51-2.00High: & gt;=2.01TROPONIN [id number] 02:29:00 Test Item Value Reference Range Comments TROPONIN I (BEAKER) (test hhho=272) 0.77 ng/mL 0.00-0.03 Troponin I (TnI) levels [...] acute neurological disease, and persistent tachyarrhythmia.COMPREHENSIVE METABOLIC [id number] 02:11:00 Test Item Value Reference Range Comments TOTAL PROTEIN (BEAKER) 6.8 gm/dL 6.0-8.3 (test iibf=902) ALBUMIN (BEAKER) (test 2.9 g/dL 3.5-5.0 qblm=0707) ALKALINE PHOSPHATASE 100 U/L 40-150 (BEAKER) (test hlfc=954) BILIRUBIN TOTAL (BEAKER) 1.4 mg/dL 0.2-1.2 (test bslr=423) SODIUM (BEAKER) (test 127 meq/L 136-145 emoq=658) POTASSIUM (BEAKER) (test 5.0 meq/L 3.5-5.1 jylf=478) CHLORIDE (BEAKER) (test 101 meq/L 98-107 sdyq=773) CO2 (BEAKER) (test 15 meq/L 22-29 xexb=088) BLOOD UREA NITROGEN 87 mg/dL 7-21 (BEAKER) (test zsmk=039) CREATININE (BEAKER) (test 4.62 mg/dL 0.57-1.25 patv=058) GLUCOSE RANDOM (BEAKER) 128 mg/dL 70-105 (test bgha=181) CALCIUM (BEAKER) (test 6.9 mg/dL 8.4-10.2 nufs=342) AST (SGOT) (BEAKER) (test 79 U/L 5-34 xrdo=122) ALT (SGPT) (BEAKER) (test 45 U/L 6-55 yupb=730) EGFR (BEAKER) (test 10 mL/min/1.73 sq m ESTIMATED GFR IS NOT neyx=3081) ACCURATE CREATININE CLEARANCE IN PREDICTING GLOMERULAR FILTRATION RATE. ESTIMATED GFR IS NOT APPLICABLE FOR DIALYSIS PATIENTS. RAD, CHEST, 1 VIEW, NON [id number] 01:44:00Reason for exam:-> HEMODIALYSIS CATHTER PLACEMENTShould this [...] pleural effusions. There is no pneumothorax. Signed: Amuta, Haritha MDReport Verified Date/Time: 03/18/2018 01:44:10 Reading Location: [facility] B1 C013Y CT Body Reading Room [id number] 01:37:00 Test Item Value Reference Range Comments FIBRINOGEN LEVEL (BEAKER) (test egop=876) 466 mg/dl 225-434 [id number] 01:37:00 Test Item Value Reference Range Comments PARTIAL THROMBOPLASTIN TIME (BEAKER) (test 33.6 seconds 22.5-36.0 dlrr=429) PROTHROMBIN TIME/[id number] 01:36:00 Test Item Value Reference Range Comments PROTIME (BEAKER) (test yrln=609) 17.0 seconds 11.7-14.7 INR (BEAKER) (test dehf=532) 1.4 <=5.9 RECOMMENDED COUMADIN/WARFARIN INR THERAPY RANGESSTANDARD DOSE: 2.0 - 3.0 Includes: PROPHYLAXIS forvenous thrombosis, systemic embolization; TREATMENT for venous thrombosis and/or pulmonary embolus.HIGH RISK: Target INR is 2.5-3.5 for patients with mechanical heart valves.LACTIC ACID, VENOUS, WHOLE [id number] 01:26:00 Test Item Value Reference Range Comments LACTATE BLOOD VENOUS (2) (BEAKER) (test 1.7 mmol/L 0.5-2.2 afpq=5459) Effective 11/28/2015: Units/Reference Range ChangeNew: 0.5-2.2 mmol/L Previous: 5 -20 mg/dLCBC (HEMOGRAM ONLY)2018-03-18 01:16:00 Test Item Value Reference Range Comments WHITE BLOOD CELL COUNT (BEAKER) (test wgoa=070) 4.3 K/ L 3.5-10.5 RED BLOOD CELL COUNT (BEAKER) (test siyh=504) 2.67 M/ L 3.93-5.22 HEMOGLOBIN (BEAKER) (test ujwj=130) 8.6 GM/DL 11.2-15.7 HEMATOCRIT (BEAKER) (test wibh=851) 25.6 % 34.1-44.9 MEAN CORPUSCULAR VOLUME (BEAKER) (test csyo=275) 95.9 fL 79.4-94.8 MEAN CORPUSCULAR HEMOGLOBIN (BEAKER) (test 32.2 pg 25.6-32.2 ohxx=868) MEAN CORPUSCULAR HEMOGLOBIN CONC (BEAKER) (test 33.6 GM/DL 32.2-35.5 iurv=483) RED CELL DISTRIBUTION WIDTH (BEAKER) (test 21.9 % 11.7-14.4 cscg=191) PLATELET COUNT (BEAKER) (test wqen=458) 39 K/CU MM 150-450 NUCLEATED RED BLOOD CELLS (BEAKER) (test 1 /100 WBC 0-0 etev=937) CT, BIOPSY, BONE [id number] 17:06:00Reason for exam:->pancytopenia in setting of metastatic breast cancer, chemotherapy held almost 2monthsFINAL REPORT PROCEDURE: CT-guided bone marrow biopsy DOSE REDUCTION: The examination was performed according to departmental dose- optimization program which includes automated exposure control, adjustment of the mA and/or kV according to patient size and/or use of iterative reconstruction technique. Clinical History: Pancytopenia Ostomy Care Nurse: Marce Conscious sedation: Versed 1 mg,fentanyl 50 [...] was immediately removed and provided to the radiologic technologist mammogram. Subsequently a core biopsy was obtained using the outer sheath. The needle and sheath were removed.Postprocedure CT evaluation of the area revealed no significant hematoma. Patient tolerated the procedure well and remained hemodynamically stable throughout. IMPRESSION: Successful and uncomplicated CT -guided bone marrow aspiration and core biopsy. Signed: Jordan Sultana MDReport Verified Date/Time: 03/17/2018 17:06:03 Reading Location: [facility] Radiology Reading Room 05: 06 PMBONE MARROW PROCESS ([facility]2018-03-17 15:16:00 Test Item Value Reference Range Comments ANATOMIC CASE# (ADDY) (test kxlr=9143) [id number] ORDERED BY DOCTOR# (ADDY) (test oqwv=0562) jordan Sultana m.d. PERFORMED BY DOCTOR# (ADDY) (test Jordan Sultana m.d. jhdx=8206) CLOT RECEIVED? (BEAKER) (test bkix=5571) Yes BIOPSY RECEIVED? (BEAKER) (test vyan=1441) Yes CULTURE RECEIVED? (BEAKER) (test fxsh=4671) No FLOW RECEIVED? (BEAKER) (test yqzh=9223) Yes CYTOGENICS? (BEAKER) (test cezq=2771) Yes MOLECULAR GENETICS? (BEAKER) (test No cibm=8224) RAD, CHEST, 2 [id number] 13:39:00Reason for exam:->sobFINAL REPORT Comparison: 15/08/2017 TECHNIQUE: 2 views of the chest FINDINGS: There is mild vascular congestion. There are small pleural effusions. Cardiac silhouette is enlarged.Left internal jugular chest port noted with tip at the cavoatrial junction. Surgical clips project over the right chest wall. Signed: Jordan Sultana MDReport Verified Date/Time: 03/17/2018 13:39:16 Reading Location: [facility] Radiology Reading Room [id number] 13:20:00 Test Item Value Reference Range Comments HAPTOGLOBIN (BEAKER) (test qtuu=980) < mg/dL 14-258 COMPLEMENT COMPONENT [id number] 12:57:00 Test Item Value Reference Range Comments C4 COMPLEMENT (BEAKER) (test kqph=330) 22 mg/dL 15-57 COMPLEMENT COMPONENT [id number] 12:57:00 Test Item Value Reference Range Comments C3 COMPLEMENT (BEAKER) (test gygz=057) 94 mg/dL 82-193 PERIPHERAL BLOOD SMEAR - PATHOLOGIST [id number] 09:47:00 Test Item Value Reference Range Comments PERIPHERAL SMR REVIEW Normochromic normocytic anemia (BEAKER) (test srjo=6094) with rare schistocytes seen (1-2/ HPF). WBCs normal in number and morphology. Thrombocytopenia with a few large forms. [id number] Michelle Yu M.D. (electronic (BEAKER) (test zlsv=7148) signature) TROPONIN [id number] 07:07:00 Test Item Value Reference Range Comments TROPONIN I (BEAKER) (test ysgt=217) 1.56 ng/mL 0.00-0.15 Troponin I (TnI) levels [...] acute neurological disease, and persistent tachyarrhythmia.BASIC METABOLIC [id number] 07:06:00 Test Item Value Reference Range Comments SODIUM (BEAKER) (test 131 meq/L 135-148 qgdh=646) POTASSIUM (BEAKER) (test 5.8 meq/L 3.6-5.5 sccd=881) CHLORIDE (BEAKER) (test 107 meq/L 98-106 nuvz=845) CO2 (BEAKER) (test 12 meq/L 20-29 moqm=753) BLOOD UREA NITROGEN 74 mg/dL 10-26 (BEAKER) (test xfbn=392) CREATININE (BEAKER) (test 3.95 mg/dL 0.50-1.20 lvjy=366) GLUCOSE RANDOM (BEAKER) 133 mg/dL 70-110 (test ayvb=542) CALCIUM (BEAKER) (test 7.6 mg/dL 8.5-10.5 yanl=387) EGFR (BEAKER) (test 12 mL/min/1.73 sq m ESTIMATED GFR IS NOT lway=3799) ACCURATE CREATININE CLEARANCE IN PREDICTING GLOMERULAR FILTRATION RATE. ESTIMATED GFR IS NOT APPLICABLE FOR DIALYSIS PATIENTS. [id number] 06:45:00 Test Item Value Reference Range Comments MAGNESIUM (BEAKER) (test mmkv=498) 2.0 mg/dL 1.5-3.0 CBC W/PLT COUNT & AUTO [id number] 06:35:00 Test Item Value Reference Range Comments WHITE BLOOD CELL COUNT (BEAKER) (test djiz=307) 8.7 K/ L 4.0-10.0 RED BLOOD CELL COUNT (BEAKER) (test plql=821) 3.26 M/ L 4.00-5.00 HEMOGLOBIN (BEAKER) (test lzio=743) 10.2 GM/DL 12.0-15.5 HEMATOCRIT (BEAKER) (test sfwc=047) 31.9 % 36.0-46.0 MEAN CORPUSCULAR VOLUME (BEAKER) (test ktcu=741) 97.9 fL 82.0-99.0 MEAN CORPUSCULAR HEMOGLOBIN (BEAKER) (test 31.3 pg 27.0-33.0 mifr=793) MEAN CORPUSCULAR HEMOGLOBIN CONC (BEAKER) (test 32.0 GM/DL 32.0-36.0 ghif=599) RED CELL DISTRIBUTION WIDTH (BEAKER) (test 20.8 % 12.0-15.0 xdkj=965) PLATELET COUNT (BEAKER) (test ntua=126) 62 K/CU MM 150-430 MEAN PLATELET VOLUME (BEAKER) (test zirh=697) 10.5 fL 6.0-11.5 NUCLEATED RED BLOOD CELLS (BEAKER) (test 0 /100 WBC 0-0 lflq=769) NEUTROPHILS RELATIVE PERCENT (BEAKER) (test 80 % xzap=614) LYMPHOCYTES RELATIVE PERCENT (BEAKER) (test 11 % gxoa=203) MONOCYTES RELATIVE PERCENT (BEAKER) (test 8 % cjeb=346) EOSINOPHILS RELATIVE PERCENT (BEAKER) (test 0 % drui=368) BASOPHILS RELATIVE PERCENT (BEAKER) (test 0 % ovrt=992) NEUTROPHILS ABSOLUTE COUNT (BEAKER) (test 6.95 K/ L 1.80-8.00 unyo=991) LYMPHOCYTES ABSOLUTE COUNT (BEAKER) (test 0.92 K/ L 1.48-4.50 ogry=204) MONOCYTES ABSOLUTE COUNT (BEAKER) (test yobv=915) 0.72 K/ L 0.00-1.30 EOSINOPHILS ABSOLUTE COUNT (BEAKER) (test 0.00 K/ L 0.00-0.50 utsn=312) BASOPHILS ABSOLUTE COUNT (BEAKER) (test dupd=066) 0.01 K/ L 0.00-0.20 IMMATURE GRANULOCYTES-RELATIVE PERCENT (BEAKER) 1 % 0-0 (test hrjb=0040) BLOOD GAS, [id number] 05:27:00 Test Item Value Reference Range Comments PH ARTERIAL (BEAKER) (test cyfy=271) 7.40 7.35-7.45 PCO2 ARTERIAL (BEAKER) (test zoeq=048) 18 mmHg 35-45 PO2 ARTERIAL (BEAKER) (test ahoj=153) 72 mmHg 80-90 O2 SATURATION ARTERIAL (BEAKER) (test fbwr=741) 94.7 % 96.0-97.0 HCO3 ARTERIAL (BEAKER) (test gwxs=510) 11 mmol/L 21-29 BASE EXCESS ARTERIAL (BEAKER) (test dveq=647) -12.0 mmol/L -2.0-3.0 PATIENT TEMPERATURE (BEAKER) (test vwtd=3247) 37.5 C FIO2 (BEAKER) (test oxgp=8541) 28.0 % PROTEIN, RANDOM [id number] 00:47:00 Test Item Value Reference Range Comments PROTEIN, URINE (BEAKER) (test mtmk=1489) 432 mg/dL 0-14 CREATININE, RANDOM [id number] 00:03:00 Test Item Value Reference Range Comments CREATININE URINE (BEAKER) (test azvv=889) 68.6 mg/dL Reference Range: No NormalsURINALYSIS W/ [id number] 23:56:00 Test Item Value Reference Range Comments COLOR (BEAKER) (test wthh=987) Yellow CLARITY (BEAKER) (test bgaj=674) Clear SPECIFIC GRAVITY UA (BEAKER) (test ukvh=143) 1.020 1.001-1.035 PH UA (BEAKER) (test tdqq=386) 5.5 5.0-8.0 PROTEIN UA (BEAKER) (test wcma=265) >=300 mg/dL Negative GLUCOSE UA (BEAKER) (test upqo=815) Negative Negative KETONES UA (BEAKER) (test dmzl=997) Negative Negative BILIRUBIN UA (BEAKER) (test evgl=651) Negative Negative BLOOD UA (BEAKER) (test ylqu=242) Large Negative NITRITE UA (BEAKER) (test orxc=491) Negative Negative LEUKOCYTE ESTERASE UA (BEAKER) (test ijhj=232) Trace Negative UROBILINOGEN UA (BEAKER) (test hzcg=440) 0.2 mg/dL 0.2-1.0 BACTERIA (BEAKER) (test tubz=001) Occasional AMORPHOUS CRYSTALS (BEAKER) (test nqnw=1763) Few RBC UA-MANUAL (BEAKER) (test trye=2705) 5-10 /HPF WBC UA-MANUAL (BEAKER) (test rtbu=2666) <5 /HPF SQUAMOUS EPITHELIAL MANUAL (BEAKER) (test 5-10 /HPF ypdt=5872) GRANULAR CASTS MANUAL (BEAKER) (test hhmr=2123) Few /LPF SOURCE(BEAKER) (test bczg=4252) KETONE, [id number] 22:28:00 Test Item Value Reference Range Comments KETONES, BLOOD (BEAKER) (test glui=5922) 0.3 mmol/L <0.4 BILIRUBIN, TOTAL AND [id number] 22:17:00 Test Item Value Reference Range Comments BILIRUBIN TOTAL (BEAKER) (test esrf=218) 2.1 mg/dL 0.1-1.2 BILIRUBIN DIRECT (BEAKER) (test egvb=084) 1.1 mg/dL 0.0-0.4 LACTATE DEHYDROGENASE (LDH)2018-03-16 22:16:00 Test Item Value Reference Range Comments LACTATE DEHYDROGENASE (BEAKER) (test tjvq=280) 1540 U/L 107-206 TROPONIN [id number] 19:44:00 Test Item Value Reference Range Comments TROPONIN I (BEAKER) (test dmio=429) 0.24 ng/mL 0.00-0.15 Troponin I (TnI) levels [...] acidosis, acute neurological disease, and persistent tachyarrhythmia.TROPONIN [id number] 10:58:00 Test Item Value Reference Range Comments TROPONIN I (BEAKER) (test clrv=433) 0.17 ng/mL 0.00-0.15 Troponin I (TnI) levels [...] and persistent tachyarrhythmia.CREATINE KINASE (CK), TOTAL AND [id number] 10:57:00 Test Item Value Reference Range Comments CREATINE KINASE TOTAL (BEAKER) (test hgas=678) 125 U/L 25-235 CREATINE KINASE-MB (BEAKER) (test yhov=720) 0.9 ng/mL 0.0-4.9 CREATINE KINASE-MB INDEX (BEAKER) (test piiq=371) 0.7 % CK-MB Reference Range:<5 Normal5-10 Borderline>10 AbnormalCOMPREHENSIVE METABOLIC [id number] 10:53:00 Test Item Value Reference Range Comments TOTAL PROTEIN (BEAKER) 7.7 gm/dL 6.0-8.5 (test idql=863) ALBUMIN (BEAKER) (test 3.4 g/dL 3.5-5.0 fpwi=2547) ALKALINE PHOSPHATASE 45 U/L 30-115 (BEAKER) (test okdt=811) BILIRUBIN TOTAL (BEAKER) 1.4 mg/dL 0.1-1.2 (test mowr=966) SODIUM (BEAKER) (test 132 meq/L 135-148 jjtg=939) POTASSIUM (BEAKER) (test 4.8 meq/L 3.6-5.5 xttw=151) CHLORIDE (BEAKER) (test 106 meq/L 98-106 nqmp=574) CO2 (BEAKER) (test 13 meq/L 20-29 oshc=045) BLOOD UREA NITROGEN 63 mg/dL 10-26 (BEAKER) (test lcjv=209) CREATININE (BEAKER) (test 3.73 mg/dL 0.50-1.20 yjtd=733) GLUCOSE RANDOM (BEAKER) 94 mg/dL 70-110 (test umtx=966) CALCIUM (BEAKER) (test 8.2 mg/dL 8.5-10.5 gzim=546) AST (SGOT) (BEAKER) (test 59 U/L 5-40 davs=757) ALT (SGPT) (BEAKER) (test 23 U/L 5-50 ygkg=305) EGFR (BEAKER) (test 13 mL/min/1.73 sq m ESTIMATED GFR IS NOT iafe=3365) ACCURATE CREATININE CLEARANCE IN PREDICTING GLOMERULAR FILTRATION RATE. ESTIMATED GFR IS NOT APPLICABLE FOR DIALYSIS PATIENTS. URINALYSIS W/ [id number] 10:49:00 Test Item Value Reference Range Comments COLOR (BEAKER) (test fbym=087) Yellow CLARITY (BEAKER) (test ubou=431) Clear SPECIFIC GRAVITY UA (BEAKER) (test rhoa=441) 1.020 1.001-1.035 PH UA (BEAKER) (test roxh=027) 5.5 5.0-8.0 PROTEIN UA (BEAKER) (test apcz=401) >=300 mg/dL Negative GLUCOSE UA (BEAKER) (test oufo=843) Negative Negative KETONES UA (BEAKER) (test cauu=960) Negative Negative BILIRUBIN UA (BEAKER) (test nwys=054) Negative Negative BLOOD UA (BEAKER) (test zdeq=311) Large Negative NITRITE UA (BEAKER) (test rfup=449) Negative Negative LEUKOCYTE ESTERASE UA (BEAKER) (test kvoi=681) Negative Negative UROBILINOGEN UA (BEAKER) (test ztxi=783) 0.2 mg/dL 0.2-1.0 BACTERIA (BEAKER) (test yckl=775) Few AMORPHOUS CRYSTALS (BEAKER) (test uakt=3102) Moderate RBC UA-MANUAL (BEAKER) (test ylbv=8299) 5-10 /HPF WBC UA-MANUAL (BEAKER) (test kidz=6401) <5 /HPF SQUAMOUS EPITHELIAL MANUAL (BEAKER) (test 5-10 /HPF gmwv=3852) WAXY CASTS MANUAL (BEAKER) (test hvtu=5751) 5-10 /LPF SOURCE(BEAKER) (test fqim=8396) CBC W/PLT COUNT & AUTO [id number] 10:49:00 Test Item Value Reference Range Comments WHITE BLOOD CELL COUNT (BEAKER) (test lgyq=525) 4.0 K/ L 4.0-10.0 RED BLOOD CELL COUNT (BEAKER) (test mhcu=325) 1.64 M/ L 4.00-5.00 HEMOGLOBIN (BEAKER) (test zqew=018) 5.5 GM/DL 12.0-15.5 HEMATOCRIT (BEAKER) (test yzbr=698) 17.6 % 36.0-46.0 MEAN CORPUSCULAR VOLUME (BEAKER) (test amjl=651) 107.3 fL 82.0-99.0 MEAN CORPUSCULAR HEMOGLOBIN (BEAKER) (test 33.5 pg 27.0-33.0 wvbr=562) MEAN CORPUSCULAR HEMOGLOBIN CONC (BEAKER) (test 31.3 GM/DL 32.0-36.0 pqhn=877) RED CELL DISTRIBUTION WIDTH (BEAKER) (test 23.5 % 12.0-15.0 zkdr=605) PLATELET COUNT (BEAKER) (test jxhd=822) 66 K/CU MM 150-430 MEAN PLATELET VOLUME (BEAKER) (test wpbd=764) 11.3 fL 6.0-11.5 NUCLEATED RED BLOOD CELLS (BEAKER) (test 0 /100 WBC 0-0 cfcu=965) NEUTROPHILS RELATIVE PERCENT (BEAKER) (test 81 % azar=245) LYMPHOCYTES RELATIVE PERCENT (BEAKER) (test 9 % vjjg=424) MONOCYTES RELATIVE PERCENT (BEAKER) (test 9 % yeom=457) EOSINOPHILS RELATIVE PERCENT (BEAKER) (test 0 % ydei=033) BASOPHILS RELATIVE PERCENT (BEAKER) (test 0 % gvyb=081) NEUTROPHILS ABSOLUTE COUNT (BEAKER) (test 3.21 K/ L 1.80-8.00 htqv=472) LYMPHOCYTES ABSOLUTE COUNT (BEAKER) (test 0.36 K/ L 1.48-4.50 yhce=043) MONOCYTES ABSOLUTE COUNT (BEAKER) (test qbdv=132) 0.34 K/ L 0.00-1.30 EOSINOPHILS ABSOLUTE COUNT (BEAKER) (test 0.01 K/ L 0.00-0.50 aawc=748) BASOPHILS ABSOLUTE COUNT (BEAKER) (test pprn=524) 0.00 K/ L 0.00-0.20 IMMATURE GRANULOCYTES-RELATIVE PERCENT (BEAKER) 1 % 0-0 (test wsdc=7673) (MANUAL DIFFERENTIAL)2018-03-16 10:49:00 Test Item Value Reference Range Comments TOTAL COUNTED (BEAKER) (test oiex=7184) WBC MORPHOLOGY (BEAKER) (test ixcr=229) Normal PLT MORPHOLOGY (BEAKER) (test omvt=692) Normal SCHISTOCYTES (BEAKER) (test nhfx=905) 1+ few ANISOCYTOSIS (BEAKER) (test jcfh=997) 1+ few MACROCYTES (BEAKER) (test fcdn=740) 1+ few MICROCYTES (BEAKER) (test bmfb=085) 1+ few POIKILOCYTES (BEAKER) (test kmbh=873) 1+ few POLYCHROMATOPHILLIC RBCS(BEAKER) (test fvdi=175) 1+ few [id number] 10:46:00 Test Item Value Reference Range Comments PROTIME (BEAKER) (test rdwt=313) 11.1 sec 9.3-12.0 INR (BEAKER) (test powx=460) 1.0 <=5.9 PARTIAL THROMBOPLASTIN TIME (BEAKER) (test 31.0 sec 23.0-35.0 apqo=024) RECOMMENDED COUMADIN/WARFARIN INR THERAPY RANGESSTANDARD DOSE: 2.0 - 3.0 Includes: PROPHYLAXIS forvenous thrombosis, systemic embolization; TREATMENT for venous thrombosis and/or pulmonary embolus.HIGH RISK: Target INR is 2.5-3.5 for patients with mechanical heart valves.Final Information (Auto Output)Final Information (Auto Output)Final Information (Auto Output)LACTIC ACID, VENOUS, WHOLE [id number] 10:45:00 Test Item Value Reference Range Comments LACTATE BLOOD VENOUS (2) (BEAKER) (test 2.2 mmol/L 0.5-2.2 ykxm=0203) Effective 11/28/2015: Units/Reference Range ChangeNew: 0.5-2.2 mmol/L Previous: 5 -18 mg/dLRAD, CHEST, 1 VIEW, NON [id number] 10:14:00Reason for exam:-> chest painIs the patient [...] MDReport Verified Date/Time: 03/16/2018 10:14:32 Reading Location: [facility] Radiology Reading Room 10: 14 AMBLOOD [id number] 22:01:00 Test Item Value Reference Range Comments CULTURE (BEAKER) (test rpop=5939) No growth in 5 days BLOOD [id number] 22:01:00 Test Item Value Reference Range Comments CULTURE (BEAKER) (test ijrh=7102) No growth in 5 days RESPIRATORY PANEL [id number] 09:21:00 Test Item Value Reference Range Comments HUMAN METAPNEUMOVIRUS (BEAKER) (test Not detected Not detected, Inconclusive hyvl=6609) RHINOVIRUS (BEAKER) (test docn=7670) Not detected Not detected, Inconclusive INFLUENZA A (BEAKER) (test Not detected Not detected, Inconclusive nrqg=1215) INFLUENZA A SUBTYPE H1 (BEAKER) Not detected Not detected, Inconclusive (test kzoq=3679) INFLUENZA A SUBTYPE H3 (BEAKER) Not detected Not detected, Inconclusive (test rbtr=2091) INFLUENZA A SUBTYPE H1-2009 (BEAKER) Not detected Not detected, Inconclusive (test lulu=3927) INFLUENZA B (BEAKER) (test Not detected Not detected, Inconclusive rwqf=1956) RESPIRATORY SYNCYTIAL VIRUS (BEAKER) Not detected Not detected, Inconclusive (test hmra=8806) PARAINFLUENZA VIRUS 1 (BEAKER) (test Not detected Not detected, Inconclusive zdrj=2516) PARAINFLUENZA VIRUS 2 (BEAKER) (test Not detected Not detected, Inconclusive dgyg=7525) PARAINFLUENZA VIRUS 3 (BEAKER) (test Not detected Not detected, Inconclusive izdx=9421) PARAINFLUENZA VIRUS 4 (BEAKER) (test Not detected Not detected, Inconclusive uhbf=2932) ADENOVIRUS (BEAKER) (test vaeb=7158) Not detected Not detected, Inconclusive CORONAVIRUS 229E (BEAKER) (test Not detected Not detected, Inconclusive bady=9970) CORONAVIRUS HKU1 (BEAKER) (test Not detected Not detected, Inconclusive wolk=9716) CORONAVIRUS NL63 (BEAKER) (test Not detected Not detected, Inconclusive cpkh=0667) CORONAVIRUS OC43 (BEAKER) (test Not detected Not detected, Inconclusive iszg=3895) BORDETELLA PERTUSSIS (BEAKER) (test Not detected Not detected, Inconclusive mday=9241) CHLAMYDOPHILA PNEUMONIAE (BEAKER) Not detected Not detected, Inconclusive (test cxch=0582) MYCOPLASMA PNEUMONIAE (BEAKER) (test Not detected Not detected, Inconclusive fwnw=7074) VANCOMYCIN LEVEL, [id number] 07:38:00 Test Item Value Reference Range Comments VANCOMYCIN TROUGH (BEAKER) (test hphk=085) 11.7 ug/mL 10.0-20.0 URINE [id number] 08:56:00 Test Item Value Reference Range Comments CULTURE (BEAKER) (test yjxb=9677) No growth CBC W/PLT COUNT & AUTO [id number] 06:39:00 Test Item Value Reference Range Comments WHITE BLOOD CELL COUNT (BEAKER) (test eold=949) 2.4 K/ L 4.0-10.0 RED BLOOD CELL COUNT (BEAKER) (test dwpy=669) 2.56 M/ L 4.00-5.00 HEMOGLOBIN (BEAKER) (test rcgp=466) 8.4 GM/DL 12.0-15.0 HEMATOCRIT (BEAKER) (test rwvu=082) 24.6 % 36.0-45.0 MEAN CORPUSCULAR VOLUME (BEAKER) (test wlkx=247) 96.4 fL 82.0-99.0 MEAN CORPUSCULAR HEMOGLOBIN (BEAKER) (test 33.0 pg 27.0-33.0 qlmd=301) MEAN CORPUSCULAR HEMOGLOBIN CONC (BEAKER) (test 34.2 GM/DL 32.0-36.0 vzdp=666) RED CELL DISTRIBUTION WIDTH (BEAKER) (test 19.7 % 10.3-14.2 jtqv=319) PLATELET COUNT (BEAKER) (test jaau=085) 108 K/CU MM 150-430 MEAN PLATELET VOLUME (BEAKER) (test ykwi=375) 8.8 fL 6.5-10.5 NUCLEATED RED BLOOD CELLS (BEAKER) (test 0 /100 WBC 0-0 fzzm=508) (MANUAL DIFFERENTIAL)2017-12-10 06:39:00 Test Item Value Reference Range Comments NEUTROPHILS - REL (DIFF) (BEAKER) (test unor=9917) 83 % LYMPHOCYTES - REL (DIFF) (BEAKER) (test vcti=0312) 15 % MONOCYTES - REL (DIFF) (BEAKER) (test iibu=5201) 2 % NEUTROPHILS - ABS (DIFF) (BEAKER) (test pdza=2505) 1.99 K/ L 1.80-8.00 LYMPHOCYTES - ABS (DIFF) (BEAKER) (test vkrx=5645) 0.36 K/ L 1.48-4.50 MONOCYTES - ABS (DIFF) (BEAKER) (test sgfs=5681) 0.05 K/ L 0.00-1.30 TOTAL COUNTED (BEAKER) (test irzj=5529) 100 WBC MORPHOLOGY (BEAKER) (test nofm=707) Normal PLT MORPHOLOGY (BEAKER) (test wzxh=825) Normal RBC MORPHOLOGY (BEAKER) (test vbvw=856) Normal POCT-GLUCOSE [id number] 14:39:00 Test Item Value Reference Range Comments POC-GLUCOSE METER (BEAKER) 125 mg/dL 70-110 TESTED AT [address] (test snyc=9927) [address] [facility] [address] CBC W/PLT COUNT & AUTO [id number] 06:47:00 Test Item Value Reference Range Comments WHITE BLOOD CELL COUNT (BEAKER) (test 2.2 K/ L 4.0-10.0 ljfy=496) RED BLOOD CELL COUNT (BEAKER) (test 2.72 M/ L 4.00-5.00 fibh=123) HEMOGLOBIN (BEAKER) (test feud=761) 9.1 GM/DL 12.0-15.0 HEMATOCRIT (BEAKER) (test ezmq=853) 26.2 % 36.0-45.0 MEAN CORPUSCULAR VOLUME (BEAKER) (test 96.3 fL 82.0-99.0 uejx=726) MEAN CORPUSCULAR HEMOGLOBIN (BEAKER) 33.3 pg 27.0-33.0 (test ivkg=320) MEAN CORPUSCULAR HEMOGLOBIN CONC 34.5 GM/DL 32.0-36.0 (BEAKER) (test jttm=276) RED CELL DISTRIBUTION WIDTH (BEAKER) 18.3 % 10.3-14.2 (test nepu=168) PLATELET COUNT (BEAKER) (test nmwn=016) 129 K/CU MM 150-430 No clot detected MEAN PLATELET VOLUME (BEAKER) (test 7.8 fL 6.5-10.5 mxen=397) NEUTROPHILS RELATIVE PERCENT (BEAKER) 81 % (test ndcr=238) LYMPHOCYTES RELATIVE PERCENT (BEAKER) 14 % (test gssu=649) MONOCYTES RELATIVE PERCENT (BEAKER) 4 % (test irvu=744) EOSINOPHILS RELATIVE PERCENT (BEAKER) 0 % (test dhhp=399) BASOPHILS RELATIVE PERCENT (BEAKER) 0 % (test hipy=475) NEUTROPHILS ABSOLUTE COUNT (BEAKER) 1.80 K/ L 1.80-8.00 (test ncrq=103) LYMPHOCYTES ABSOLUTE COUNT (BEAKER) 0.30 K/ L 1.48-4.50 (test rmzv=435) MONOCYTES ABSOLUTE COUNT (BEAKER) (test 0.10 K/ L 0.00-1.30 mjdj=508) EOSINOPHILS ABSOLUTE COUNT (BEAKER) 0.00 K/ L 0.00-0.50 (test adlo=775) BASOPHILS ABSOLUTE COUNT (BEAKER) (test 0.00 K/ L 0.00-0.20 bhld=710) BASIC METABOLIC [id number] 05:54:00 Test Item Value Reference Range Comments SODIUM (BEAKER) (test 138 meq/L 135-148 orep=223) POTASSIUM (BEAKER) (test 3.9 meq/L 3.6-5.5 hyqa=566) CHLORIDE (BEAKER) (test 105 meq/L 98-106 eppn=857) CO2 (BEAKER) (test 26 meq/L 20-29 yotn=311) BLOOD UREA NITROGEN 14 mg/dL 10-26 (BEAKER) (test pcro=259) CREATININE (BEAKER) (test 0.76 mg/dL 0.50-1.20 zxze=360) GLUCOSE RANDOM (BEAKER) 84 mg/dL 70-110 (test pkyc=422) CALCIUM (BEAKER) (test 8.2 mg/dL 8.5-10.5 khfn=968) EGFR (BEAKER) (test 80 mL/min/1.73 sq m ESTIMATED GFR IS NOT nqit=0604) ACCURATE CREATININE CLEARANCE IN PREDICTING GLOMERULAR FILTRATION RATE. ESTIMATED GFR IS NOT APPLICABLE FOR DIALYSIS PATIENTS. RAD, CHEST, 2 [id number] 19:36:00Reason for exam:->FEVERIs the patient ?->NoShould this [...] MDReport Verified Date/Time: 12/08/2017 19:36:34 Reading Location: [facility] B1 [id number] Consult Reading Room URINALYSIS W/ [id number] 19:33:00 Test Item Value Reference Range Comments COLOR (BEAKER) (test ldqx=250) Yellow CLARITY (BEAKER) (test rugc=976) Clear SPECIFIC GRAVITY UA (BEAKER) (test xzhi=760) <= 1.001-1.035 PH UA (BEAKER) (test dosl=777) 5.5 5.0-8.0 PROTEIN UA (BEAKER) (test jgph=747) Negative Negative GLUCOSE UA (BEAKER) (test uous=871) Negative Negative KETONES UA (BEAKER) (test phhs=063) Negative Negative BILIRUBIN UA (BEAKER) (test cyro=183) Negative Negative BLOOD UA (BEAKER) (test xqnz=458) Negative Negative NITRITE UA (BEAKER) (test fcfi=572) Negative Negative LEUKOCYTE ESTERASE UA (BEAKER) (test hnii=723) Negative Negative UROBILINOGEN UA (BEAKER) (test soks=778) 0.2 mg/dL 0.2-1.0 BACTERIA (BEAKER) (test amld=725) Occasional RBC UA-MANUAL (BEAKER) (test xxou=4792) <5 /HPF WBC UA-MANUAL (BEAKER) (test osrm=3178) <5 /HPF SQUAMOUS EPITHELIAL MANUAL (BEAKER) (test <5 /HPF arbu=2284) SOURCE(BEAKER) (test yeny=4078) COMPREHENSIVE METABOLIC [id number] 19:01:00 Test Item Value Reference Range Comments TOTAL PROTEIN (BEAKER) 8.1 gm/dL 6.0-8.5 (test grys=456) ALBUMIN (BEAKER) (test 4.1 g/dL 3.5-5.0 yyfx=5965) ALKALINE PHOSPHATASE 75 U/L 30-115 (BEAKER) (test kqou=487) BILIRUBIN TOTAL (BEAKER) 0.6 mg/dL 0.1-1.2 (test vgth=520) SODIUM (BEAKER) (test 132 meq/L 135-148 xpjm=794) POTASSIUM (BEAKER) (test 3.6 meq/L 3.6-5.5 lrwz=251) CHLORIDE (BEAKER) (test 97 meq/L 98-106 fzgd=289) CO2 (BEAKER) (test 23 meq/L 20-29 nshc=214) BLOOD UREA NITROGEN 18 mg/dL 10-26 (BEAKER) (test qsvt=430) CREATININE (BEAKER) (test 1.02 mg/dL 0.50-1.20 oolt=179) GLUCOSE RANDOM (BEAKER) 102 mg/dL 70-110 (test fkwl=929) CALCIUM (BEAKER) (test 8.6 mg/dL 8.5-10.5 spgt=780) AST (SGOT) (BEAKER) (test 38 U/L 5-40 aqwd=977) ALT (SGPT) (BEAKER) (test 49 U/L 5-50 bnas=730) EGFR (BEAKER) (test 57 mL/min/1.73 sq m ESTIMATED GFR IS NOT hjuz=1597) ACCURATE CREATININE CLEARANCE IN PREDICTING GLOMERULAR FILTRATION RATE. ESTIMATED GFR IS NOT APPLICABLE FOR DIALYSIS PATIENTS. LACTIC ACID, VENOUS, WHOLE [id number] 18:53:00 Test Item Value Reference Range Comments LACTATE BLOOD VENOUS (2) (BEAKER) (test 0.8 mmol/L 0.5-2.2 tupz=9490) Effective 11/28/2015: Units/Reference Range ChangeNew: 0.5-2.2 mmol/L Previous: 5 -18 mg/dLCBC W/PLT COUNT & AUTO [id number] 18:36:00 Test Item Value Reference Range Comments WHITE BLOOD CELL COUNT (BEAKER) (test srkc=820) 3.5 K/ L 4.0-10.0 RED BLOOD CELL COUNT (BEAKER) (test rfyr=504) 2.95 M/ L 4.00-5.00 HEMOGLOBIN (BEAKER) (test rtha=404) 9.7 GM/DL 12.0-15.0 HEMATOCRIT (BEAKER) (test botj=936) 28.5 % 36.0-45.0 MEAN CORPUSCULAR VOLUME (BEAKER) (test cdkf=799) 96.6 fL 82.0-99.0 MEAN CORPUSCULAR HEMOGLOBIN (BEAKER) (test 32.9 pg 27.0-33.0 gfzr=269) MEAN CORPUSCULAR HEMOGLOBIN CONC (BEAKER) (test 34.0 GM/DL 32.0-36.0 fgia=766) RED CELL DISTRIBUTION WIDTH (BEAKER) (test 18.5 % 10.3-14.2 vbvj=100) PLATELET COUNT (BEAKER) (test lofb=932) 187 K/CU MM 150-430 MEAN PLATELET VOLUME (BEAKER) (test jyxk=680) 7.8 fL 6.5-10.5 NEUTROPHILS RELATIVE PERCENT (BEAKER) (test 84 % ksop=368) LYMPHOCYTES RELATIVE PERCENT (BEAKER) (test 10 % esra=844) MONOCYTES RELATIVE PERCENT (BEAKER) (test 5 % tbpe=196) EOSINOPHILS RELATIVE PERCENT (BEAKER) (test 0 % vizx=239) BASOPHILS RELATIVE PERCENT (BEAKER) (test 0 % qwkw=334) NEUTROPHILS ABSOLUTE COUNT (BEAKER) (test 2.90 K/ L 1.80-8.00 javq=320) LYMPHOCYTES ABSOLUTE COUNT (BEAKER) (test 0.40 K/ L 1.48-4.50 ambb=241) MONOCYTES ABSOLUTE COUNT (BEAKER) (test 0.20 K/ L 0.00-1.30 yxnt=581) EOSINOPHILS ABSOLUTE COUNT (BEAKER) (test 0.00 K/ L 0.00-0.50 pwlx=353) BASOPHILS ABSOLUTE COUNT (BEAKER) (test 0.00 K/ L 0.00-0.20 ypoi=517) BLOOD [id number] 13:00:00 Test Item Value Reference Range Comments CULTURE (BEAKER) (test gswz=9509) No growth in 5 days BLOOD [id number] 10:00:00 Test Item Value Reference Range Comments CULTURE (BEAKER) (test aock=1509) No growth in 5 days VANCOMYCIN LEVEL, [id number] 14:26:00 Test Item Value Reference Range Comments VANCOMYCIN TROUGH (BEAKER) (test aqbr=556) 9.8 ug/mL 10.0-20.0 VANCOMYCIN DOSING BY RX PER DR. Kowalski PRIOR TO 4th DOSE ON 10/22/17 AT13: 30URINE [id number] 08:16:00 Test Item Value Reference Range Comments CULTURE (BEAKER) (test uuqe=6731) No growth (MANUAL DIFFERENTIAL)2017-10-22 07:06:00 Test Item Value Reference Range Comments NEUTROPHILS - REL (DIFF) (BEAKER) (test kshz=2635) 69 % LYMPHOCYTES - REL (DIFF) (BEAKER) (test viqn=4697) 27 % MONOCYTES - REL (DIFF) (BEAKER) (test zpgo=0496) 4 % NEUTROPHILS - ABS (DIFF) (BEAKER) (test gpar=7334) 1.52 K/ L 1.80-8.00 LYMPHOCYTES - ABS (DIFF) (BEAKER) (test rzih=5796) 0.59 K/ L 1.48-4.50 MONOCYTES - ABS (DIFF) (BEAKER) (test daqb=3224) 0.09 K/ L 0.00-1.30 TOTAL COUNTED (BEAKER) (test ltvb=6058) 100 WBC MORPHOLOGY (BEAKER) (test asoe=889) Normal PLT MORPHOLOGY (BEAKER) (test nxry=546) Normal RBC MORPHOLOGY (BEAKER) (test uyqf=429) Normal COMPREHENSIVE METABOLIC [id number] 06:39:00 Test Item Value Reference Range Comments TOTAL PROTEIN (BEAKER) 6.8 gm/dL 6.0-8.5 (test tedc=772) ALBUMIN (BEAKER) (test 3.7 g/dL 3.5-5.0 erdu=7678) ALKALINE PHOSPHATASE 111 U/L 30-115 (BEAKER) (test stys=635) BILIRUBIN TOTAL (BEAKER) 0.3 mg/dL 0.1-1.2 (test hhrc=758) SODIUM (BEAKER) (test 138 meq/L 135-148 gpja=240) POTASSIUM (BEAKER) (test 3.9 meq/L 3.6-5.5 msmq=214) CHLORIDE (BEAKER) (test 102 meq/L 98-106 znnb=351) CO2 (BEAKER) (test 28 meq/L 20-29 rweg=587) BLOOD UREA NITROGEN 9 mg/dL 10-26 (BEAKER) (test prgk=330) CREATININE (BEAKER) (test 0.70 mg/dL 0.50-1.20 triz=179) GLUCOSE RANDOM (BEAKER) 85 mg/dL 70-110 (test jico=038) CALCIUM (BEAKER) (test 9.1 mg/dL 8.5-10.5 xxpr=400) AST (SGOT) (BEAKER) (test 141 U/L 5-40 dpgo=446) ALT (SGPT) (BEAKER) (test 276 U/L 5-50 cjuq=549) EGFR (BEAKER) (test 88 mL/min/1.73 sq m ESTIMATED GFR IS NOT mlnl=6963) ACCURATE CREATININE CLEARANCE IN PREDICTING GLOMERULAR FILTRATION RATE. ESTIMATED GFR IS NOT APPLICABLE FOR DIALYSIS PATIENTS. CBC W/PLT COUNT & AUTO [id number] 06:22:00 Test Item Value Reference Range Comments WHITE BLOOD CELL COUNT (BEAKER) (test hpxs=855) 2.2 K/ L 4.0-10.0 RED BLOOD CELL COUNT (BEAKER) (test xjkx=028) 3.12 M/ L 4.00-5.00 HEMOGLOBIN (BEAKER) (test iugw=416) 9.7 GM/DL 12.0-15.0 HEMATOCRIT (BEAKER) (test dyoj=594) 28.5 % 36.0-45.0 MEAN CORPUSCULAR VOLUME (BEAKER) (test npgb=886) 91.2 fL 82.0-99.0 MEAN CORPUSCULAR HEMOGLOBIN (BEAKER) (test 31.2 pg 27.0-33.0 utyc=909) MEAN CORPUSCULAR HEMOGLOBIN CONC (BEAKER) (test 34.2 GM/DL 32.0-36.0 bozd=459) RED CELL DISTRIBUTION WIDTH (BEAKER) (test 12.4 % 10.3-14.2 gpcf=859) PLATELET COUNT (BEAKER) (test awar=598) 173 K/CU MM 150-430 MEAN PLATELET VOLUME (BEAKER) (test rwoq=418) 7.6 fL 6.5-10.5 NUCLEATED RED BLOOD CELLS (BEAKER) (test 0 /100 WBC 0-0 kwrs=472) HEPATIC FUNCTION [id number] 16:17:00 Test Item Value Reference Range Comments TOTAL PROTEIN (BEAKER) (test wzou=176) 6.3 gm/dL 6.0-8.5 ALBUMIN (BEAKER) (test zlvz=3540) 3.5 g/dL 3.5-5.0 BILIRUBIN TOTAL (BEAKER) (test ascn=620) 0.3 mg/dL 0.1-1.2 BILIRUBIN DIRECT (BEAKER) (test kxpy=103) 0.2 mg/dL 0.0-0.4 ALKALINE PHOSPHATASE (BEAKER) (test knpr=714) 106 U/L 30-115 AST (SGOT) (BEAKER) (test abwt=919) 208 U/L 5-40 ALT (SGPT) (BEAKER) (test xfng=127) 286 U/L 5-50 CBC W/PLT COUNT & AUTO [id number] 06:13:00 Test Item Value Reference Range Comments WHITE BLOOD CELL COUNT (BEAKER) (test cnyq=433) 2.9 K/ L 4.0-10.0 RED BLOOD CELL COUNT (BEAKER) (test kgzm=990) 3.10 M/ L 4.00-5.00 HEMOGLOBIN (BEAKER) (test zxgs=978) 9.7 GM/DL 12.0-15.0 HEMATOCRIT (BEAKER) (test ylzq=264) 28.3 % 36.0-45.0 MEAN CORPUSCULAR VOLUME (BEAKER) (test jcug=297) 91.2 fL 82.0-99.0 MEAN CORPUSCULAR HEMOGLOBIN (BEAKER) (test 31.2 pg 27.0-33.0 atql=544) MEAN CORPUSCULAR HEMOGLOBIN CONC (BEAKER) (test 34.3 GM/DL 32.0-36.0 dstv=882) RED CELL DISTRIBUTION WIDTH (BEAKER) (test 12.3 % 10.3-14.2 mcau=811) PLATELET COUNT (BEAKER) (test eewf=948) 178 K/CU MM 150-430 MEAN PLATELET VOLUME (BEAKER) (test mgwz=770) 7.5 fL 6.5-10.5 NUCLEATED RED BLOOD CELLS (BEAKER) (test 0 /100 WBC 0-0 aiax=443) (MANUAL DIFFERENTIAL)2017-10-21 06:13:00 Test Item Value Reference Range Comments NEUTROPHILS - REL (DIFF) (BEAKER) (test tspl=0837) 76 % LYMPHOCYTES - REL (DIFF) (BEAKER) (test nbsv=2382) 16 % MONOCYTES - REL (DIFF) (BEAKER) (test wgwx=4869) 5 % BANDS - REL (DIFF) (BEAKER) (test jpwz=9667) 3 % 0-10 NEUTROPHILS - ABS (DIFF) (BEAKER) (test riqz=8764) 2.20 K/ L 1.80-8.00 LYMPHOCYTES - ABS (DIFF) (BEAKER) (test ldyb=4971) 0.46 K/ L 1.48-4.50 MONOCYTES - ABS (DIFF) (BEAKER) (test eflu=8576) 0.15 K/ L 0.00-1.30 BANDS-ABS (DIFF) (BEAKER) (test diez=1463) 0.1 K/ L 0.0-0.8 TOTAL COUNTED (BEAKER) (test hhlo=1457) 100 BANDS + SEGMENTED NEUTROPHILS (BEAKER) (test 2.29 xyrr=6956) WBC MORPHOLOGY (BEAKER) (test kzta=724) Normal PLT MORPHOLOGY (BEAKER) (test iswc=564) Normal RBC MORPHOLOGY (BEAKER) (test ttnw=775) Normal BASIC METABOLIC [id number] 05:25:00 Test Item Value Reference Range Comments SODIUM (BEAKER) (test 139 meq/L 135-148 oznb=347) POTASSIUM (BEAKER) (test 3.7 meq/L 3.6-5.5 iuei=371) CHLORIDE (BEAKER) (test 104 meq/L 98-106 xove=090) CO2 (BEAKER) (test 27 meq/L 20-29 yvik=920) BLOOD UREA NITROGEN 12 mg/dL 10-26 (BEAKER) (test dmye=646) CREATININE (BEAKER) (test 0.80 mg/dL 0.50-1.20 fkzn=555) GLUCOSE RANDOM (BEAKER) 77 mg/dL 70-110 (test ryxw=447) CALCIUM (BEAKER) (test 8.5 mg/dL 8.5-10.5 qmzr=784) EGFR (BEAKER) (test 75 mL/min/1.73 sq m ESTIMATED GFR IS NOT lwjd=4099) ACCURATE CREATININE CLEARANCE IN PREDICTING GLOMERULAR FILTRATION RATE. ESTIMATED GFR IS NOT APPLICABLE FOR DIALYSIS PATIENTS. CT, BRAIN, WITHOUT [id number] 17:12:00Reason for exam:->headacheIs the patient ?->NoWhat is [...] hydrocephalus. Acute sphenoid sinusitis. Signed: Hailey Lucas [facility] SERVICESeport Verified Date/Time: 10/20/2017 17:12:46 Reading Location: [facility] Radiology Reading Room Electronically signed by: HAILEY LUCAS M.D. on 05:12 PMCT, [id number] 09:17:00Reason for exam:->fever, constipation, abd discomfortIs the [...] MDReport Verified Date/Time: 10/20/2017 09:17:32 Reading Location: [facility] [id number] Ortho Consult Reading Room RAD, CHEST, 2 [id number] 08:54:00Reason for exam:->FEVERFINAL REPORT Chest two views [...] MDReport Verified Date/Time: 2017 08:54:43 Reading Location: [facility] Reading Room HEPATIC FUNCTION [id number] 08:27:00 Test Item Value Reference Range Comments TOTAL PROTEIN (BEAKER) (test zxlk=196) 8.1 gm/dL 6.0-8.5 ALBUMIN (BEAKER) (test gezd=8056) 4.4 g/dL 3.5-5.0 BILIRUBIN TOTAL (BEAKER) (test xpeq=616) 0.4 mg/dL 0.1-1.2 BILIRUBIN DIRECT (BEAKER) (test mpjq=772) 0.2 mg/dL 0.0-0.4 ALKALINE PHOSPHATASE (BEAKER) (test dhpg=777) 128 U/L 30-115 AST (SGOT) (BEAKER) (test ladi=442) 88 U/L 5-40 ALT (SGPT) (BEAKER) (test fuon=617) 281 U/L 5-50 [id number] 08:24:00 Test Item Value Reference Range Comments LIPASE (BEAKER) (test sxze=178) 42 U/L 6-51 BASIC METABOLIC [id number] 08:21:00 Test Item Value Reference Range Comments SODIUM (BEAKER) (test 133 meq/L 135-148 hnil=447) POTASSIUM (BEAKER) (test 4.1 meq/L 3.6-5.5 botm=040) CHLORIDE (BEAKER) (test 97 meq/L 98-106 xggr=810) CO2 (BEAKER) (test 26 meq/L 20-29 onac=885) BLOOD UREA NITROGEN 17 mg/dL 10-26 (BEAKER) (test emfo=088) CREATININE (BEAKER) (test 1.00 mg/dL 0.50-1.20 slog=731) GLUCOSE RANDOM (BEAKER) 99 mg/dL 70-110 (test aeet=804) CALCIUM (BEAKER) (test 9.3 mg/dL 8.5-10.5 rcgu=416) EGFR (BEAKER) (test 58 mL/min/1.73 sq m ESTIMATED GFR IS NOT zwmr=9634) ACCURATE CREATININE CLEARANCE IN PREDICTING GLOMERULAR FILTRATION RATE. ESTIMATED GFR IS NOT APPLICABLE FOR DIALYSIS PATIENTS. LACTIC ACID, VENOUS, WHOLE [id number] 08:15:00 Test Item Value Reference Range Comments LACTATE BLOOD VENOUS (2) (BEAKER) (test 1.1 mmol/L 0.5-2.2 euqg=0273) Effective 11/28/2015: Units/Reference Range ChangeNew: 0.5-2.2 mmol/L Previous: 5 -18 mg/dLCBC W/PLT COUNT & AUTO [id number] 08:11:00 Test Item Value Reference Range Comments WHITE BLOOD CELL COUNT (BEAKER) (test qhby=664) 4.7 K/ L 4.0-10.0 RED BLOOD CELL COUNT (BEAKER) (test zdtm=532) 3.71 M/ L 4.00-5.00 HEMOGLOBIN (BEAKER) (test pvdd=066) 11.5 GM/DL 12.0-15.0 HEMATOCRIT (BEAKER) (test uvtd=065) 33.7 % 36.0-45.0 MEAN CORPUSCULAR VOLUME (BEAKER) (test ysao=232) 91.0 fL 82.0-99.0 MEAN CORPUSCULAR HEMOGLOBIN (BEAKER) (test 31.1 pg 27.0-33.0 hwjp=254) MEAN CORPUSCULAR HEMOGLOBIN CONC (BEAKER) (test 34.2 GM/DL 32.0-36.0 pdfn=028) RED CELL DISTRIBUTION WIDTH (BEAKER) (test 12.3 % 10.3-14.2 yknd=996) PLATELET COUNT (BEAKER) (test kgdo=294) 245 K/CU MM 150-430 MEAN PLATELET VOLUME (BEAKER) (test hvqq=051) 7.7 fL 6.5-10.5 NUCLEATED RED BLOOD CELLS (BEAKER) (test 0 /100 WBC 0-0 tsqo=695) NEUTROPHILS RELATIVE PERCENT (BEAKER) (test 93 % juvs=445) LYMPHOCYTES RELATIVE PERCENT (BEAKER) (test 2 % lpme=637) MONOCYTES RELATIVE PERCENT (BEAKER) (test 5 % hvic=936) EOSINOPHILS RELATIVE PERCENT (BEAKER) (test 0 % xpqu=517) BASOPHILS RELATIVE PERCENT (BEAKER) (test 0 % ilhu=863) NEUTROPHILS ABSOLUTE COUNT (BEAKER) (test 4.40 K/ L 1.80-8.00 kzdj=600) LYMPHOCYTES ABSOLUTE COUNT (BEAKER) (test 0.10 K/ L 1.48-4.50 fahw=236) MONOCYTES ABSOLUTE COUNT (BEAKER) (test 0.20 K/ L 0.00-1.30 otgx=486) EOSINOPHILS ABSOLUTE COUNT (BEAKER) (test 0.00 K/ L 0.00-0.50 epbg=053) BASOPHILS ABSOLUTE COUNT (BEAKER) (test 0.00 K/ L 0.00-0.20 djla=094) RAPID INFLUENZA A&B [id number] 07:58:00 Test Item Value Reference Range Comments RAPID INFLUENZA A AG (BEAKER) (test Negative Negative, Inconclusive ilfv=1271) RAPID INFLUENZA B AG (BEAKER) (test Negative Negative, Inconclusive upvg=5388) URINALYSIS W/ [id number] 07:55:00 Test Item Value Reference Range Comments COLOR (BEAKER) (test hzuh=749) Yellow CLARITY (BEAKER) (test mflw=396) Clear SPECIFIC GRAVITY UA (BEAKER) (test njdd=038) 1.015 1.001-1.035 PH UA (BEAKER) (test nezl=073) 6.0 5.0-8.0 PROTEIN UA (BEAKER) (test ggfn=802) Negative Negative GLUCOSE UA (BEAKER) (test tvpp=050) Negative Negative KETONES UA (BEAKER) (test roxk=166) Negative Negative BILIRUBIN UA (BEAKER) (test muxu=064) Negative Negative BLOOD UA (BEAKER) (test rfnc=501) Trace Negative NITRITE UA (BEAKER) (test pimv=635) Negative Negative LEUKOCYTE ESTERASE UA (BEAKER) (test yyzq=033) Negative Negative UROBILINOGEN UA (BEAKER) (test fxkt=043) 0.2 mg/dL 0.2-1.0 BACTERIA (BEAKER) (test sryd=238) Few MUCUS (BEAKER) (test mvly=5904) Few RBC UA-MANUAL (BEAKER) (test yqjt=0603) 5-10 /HPF WBC UA-MANUAL (BEAKER) (test tgra=8490) 5-10 /HPF SQUAMOUS EPITHELIAL MANUAL (BEAKER) (test <5 /HPF qgkp=5989) SOURCE(BEAKER) (test dcxe=6722)
[2018-05-09 05:38] LABS: Absolute Lymphocytes (CBC) 0.3 K/uL (0.7-4.9); Absolute Monocytes 0.3 K/uL (0.1-1.3); Basophils % 0.6 % (0-1.3); Eosinophils % 0.3 % (0-4.4); Hematocrit 25.3 % (36.0-45.0); Lymphocytes % 5.9 % (15.3-44.8); MCH 33.9 pg (27.0-35.0); MCV 98.7 fL (80-100); MPV 8.6 fL (7.6-11.3); Monocytes % 5.6 % (3.3-12.3); RBC Red Blood Cell Count 2.56 M/uL (3.86-4.86)
[2018-05-09 05:47] LABS: Protime INR 1.15
[2018-05-09 05:54] LABS: Potassium 3.5 mmol/L (3.5-5.1); Troponin (Emerg Dept Use Only) 0.16 ng/mL (0.0-0.045)
[2018-05-09] MEDS ORDERED: FENTANYL CITR 100 MCG/2 ML ONE (06:01)
[2018-05-09] MEDS ORDERED: ONDANSETRON 4 MG/2 ML VIAL ONE (06:01)
[2018-05-09 06:51] LABS: Blood Morphology Comment NOT SEEN (NOT SEEN); Platelet Estimate ADEQ; Urine White Blood Cell Casts OK
--- NOTE | 2018-05-09 08:15 | RAD REPORT ---
EXAM DESCRIPTION: CT - Chest For Pe Angio - 05/09/2018 8:00 am CLINICAL HISTORY: Chest pain. CHEST PAIN COMPARISON: Thorax Wo Con dated 04/02/2018 TECHNIQUE: CT angiogram of the pulmonary arteries was performed with MIP. All CT scans are performed using dose optimization technique as appropriate and may include automated exposure control or mA/KV adjustment according to patient size. FINDINGS: No evidence of pulmonary thromboembolism. The aorta is suboptimally opacified by contrast. The heart size is normal. Prominent bilateral pulmonary opacities are noted, probably representing pulmonary edema. Lung aerati on is mildly improved compared to 04/02/2018. Moderate bilateral pleural effusions. Left-sided port catheter is noted. Right-sided venous catheter seen. Multiple sclerotic foci noted th roughout the skeleton likely represents bony metastasis, unchanged. IMPRESSION: No evidence of pulmonary thromboembolism. Moderate bilateral alveolar lung opacities with moderate pleural effusions likely represents pulmonar y edema/ volume overload. Pulmonary findings are mildly less severe compared to 04/02/2018 study.
[2018-05-09] MEDS ORDERED: HYDROMORPHONE HCL 1 MG/ML INJ ONE (08:57)
--- NOTE | 2018-05-09 09:13 | ER ---
Nurse's Notes [facility] Name: Renate Gold Age: 53 yrs Sex: Female : 1965 Arrival Date: 05/09/2018 Time: 03:57 Bed 19 Private MD: Maricruz Wei Diagnosis: Pain in right shoulder Presentation: 05/09 04:17 Presenting complaint: Patient states: shortness of breath, upper back pain, stomach lp1 upset; patient states "my heart feels like it's doing funny things"; Hx of stage 4 breast cancer, dialysis. Transition of care: patient was not received from another setting of care. Onset of symptoms was May 09, 2018. Risk Assessment: Do you want to hurt yourself or someone else? Patient reports no desire to harm self or others. Initial Sepsis Screen: Does the patient meet any 2 criteria? No. Patient's initial sepsis screen is negative. Does the patient have a suspected source of infection? No. Patient's initial sepsis screen is negative. Care prior to arrival: None. 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 - Hysterectomy lp1 Historical: - Allergies: 04:25 Ciprofloxacin; lp1 04:25 Compazine; lp1 04:25 Ofloxacin; lp1 04:25 Prochlorperazine Maleate; lp1 04:25 Sulfa (Sulfonamide Antibiotics); lp1 - Home Meds: 04:25 sacubitril-valsartan oral 24-26 mg oral 1 tab 2 times per day [Active]; docusate sodium lp1 100 mg Oral cap 1 cap 2 times per day [Active]; sevelamer carbonate 800 mg oral tab 1 tab 3 times per day [Active]; tramadol 50 mg Oral tab 1 tab twice a day [Active]; - PMHx: 04:25 breast cancer-metastasized; Cancer to breast, lungs, bone and spine; CHF; COPD; ESRD; lp1 Pneumonia; Renal Disease; Dialysis- 5x per week; - PSHx: 04:25 Hysterectomy; Cholecystectomy; Cancer tumor removal; lp1 - Immunization history:: Adult Immunizations up to date. - Social history:: Smoking status: Patient/guardian denies using tobacco. - Ebola Screening: : No symptoms or risks identified at this time. Screenin:28 Abuse screen: Denies threats or abuse. Denies injuries from another. Nutritional lp1 screening: No deficits noted. Tuberculosis screening: No symptoms or risk factors identified. Fall Risk Total Carter Fall Scale indicates High Risk Score (45 or more points). Fall prevention measures have been instituted. Side Rails Up X 2 Family Present and informed to notify staff if the need to leave the bedside As available patient and family educated on Fall Prevention Program and Strategies. Assessment: 04:26 General: Appears ill, slender, malnourished, Behavior is calm. Pain: Complains of pain lp1 in thoracic area and chest Pain at worst was 9 out of 10 on a pain scale. Quality of pain is described as aching. Neuro: Level of Consciousness is awake, alert, obeys commands, Oriented to person, place, situation. Cardiovascular: Patient's skin is warm and dry. Respiratory: Respiratory effort is even, labored, Respiratory pattern is regular. GI: Abdomen is flat, Reports nausea. : No signs and/or symptoms were reported regarding the genitourinary system. EENT: No signs and/or symptoms were reported regarding the EENT system. Derm: Skin is fragile, is thin, Skin is dry, Skin is pale. Musculoskeletal: Circulation, motion, and sensation intact. 07:00 General: Appears in no apparent distress. uncomfortable, slender, Behavior is calm, hj cooperative, appropriate for age. Pain: Complains of pain in right scapular area and chest and back and thoracic area. Neuro: Level of Consciousness is awake, alert, obeys commands, Oriented to person, place, time, situation, Appropriate for age. Cardiovascular: Capillary refill < 3 seconds Patient's skin is warm and dry. Respiratory: Airway is patent Respiratory effort is even, unlabored, Respiratory pattern is regular, symmetrical. GI: Abdomen is flat, Reports nausea. : No signs and/or symptoms were reported regarding the genitourinary system. EENT: No signs and/or symptoms were reported regarding the EENT system. Derm: No signs and/or symptoms reported regarding the dermatologic system. Musculoskeletal: No signs and/or symptoms reported regarding the musculoskeletal system. 07:49 Reassessment: wheeled to CT for Angio;. hj 08:57 Reassessment: provided with heart healthy diet catrachito;. hj 09:28 Reassessment: for D/C; awaiting ride from ;. hj Vital Signs: 04:18 BP 142 / 99; Pulse 113; Resp 22; Temp 98.9(O); Pulse Ox 96% on 3 lpm NC; Weight 39.01 lp1 kg; Height 5 ft. 3 in. (160.02 cm); Pain 9/10; 05:00 BP 147 / 96; Pulse 111; Resp 24; Pulse Ox 100% on 2 lpm NC; lp1 06:00 BP 131 / 90; Pulse 107; Resp 21; Pulse Ox 100% on 2 lpm NC; lp1 07:00 BP 150 / 98; Pulse 110; Resp 18; Pulse Ox 100% on 2 lpm NC; hj 07:42 BP 135 / 75; Pulse 111; Resp 18; Pulse Ox 97% on 2 lpm NC; hj 09:02 BP 154 / 99; Pulse 110; Resp 18; Pulse Ox 97% on 2 lpm NC; hj 04:18 Body Mass Index 15.23 (39.01 kg, 160.02 cm) lp1 ED Course: 03:57 Patient arrived in ED. am2 03:57 Maricruz Wei MD is Private Physician. am2 04:15 Brian Garsia MD is Attending Physician. gs 04:17 Josefina Squires, [place] is Primary Nurse. lp1 04:18 Triage completed. lp1 04:19 Arm band placed on left wrist. lp1 04:29 Patient has correct armband on for positive identification. Bed in low position. Call lp1 light in reach. Side rails up X2. groover runner on. Pulse ox on. NIBP on. 05:30 Accessed Port-a-Cath. using accessed w/ # 20 Mercado needle, ,sterile technique, per 3 hospital protocol. Clean \\T\\ dry. Dressing intact. Good blood return. Flushes easily. 06:11 X-ray completed. Portable x-ray completed in exam room. Patient tolerated procedure mh1 well. 06:12 XRAY Chest (1 view) In Process Unspecified. EDMS 06:50 Radiology exam delayed due to IV insertion attempt and/or patient not having kw1 appropriate IV at this time. 07:15 Inserted saline lock: 22 gauge in left forearm, using aseptic technique. hj 07:41 Inserted saline lock: 20 gauge in left antecubital area, using aseptic technique. hj ,using aseptic technique. IRW. 08:00 CT Chest For PE Angio In Process Unspecified. EDMS 08:06 CT completed. Patient moved to CT via stretcher. Patient moved back from CT. cw1 08:15 Jeremiah Chan MD is Attending Physician. ma2 09:19 IV discontinued, intact, bleeding controlled, No redness/swelling at site. Pressure hj dressing applied. 09:54 No provider procedures requiring assistance completed. hj Administered Medications: 06:20 Drug: fentaNYL (PF) 50 mcg Route: IVP; Site: Port-a-cath; lp1 07:46 Follow up: Response: No adverse reaction; Pain is decreased hj 06:20 Drug: Zofran 4 mg Route: IVP; Site: Port-a-cath; lp1 07:45 Follow up: Response: No adverse reaction; Nausea is decreased hj 08:43 Drug: Dilaudid 1 mg Route: IVP; Site: left antecubital; hj 09:19 Follow up: Response: No adverse reaction hj Outcome: 09:12 Discharge ordered by . ma2 09:54 Discharged to home via wheelchair, with family. hj 09:54 Condition: stable 09:54 Discharge instructions given to patient, family, Instructed on discharge instructions, follow up and referral plans. Demonstrated understanding of instructions, follow-up care. 09:54 Patient left the ED. Signatures: Dispatcher [employer] EDMS Aletha Patrick 1 Aruna Isaac 1 Josefina Squires RN RN 1 Trey Plaza RN RN hj Moreno, Amanda 2 Brian Garsia MD MD gs Wilhelm, Kimberly kw1 Jeremiah Chan MD MD ma2 Carolyn Sparks cc3 Corrections: (The following items were deleted from the chart) 07:16 07:07 Patient moved back from CT. kw1 kw1 07:16 07:07 CT completed. Patient tolerated procedure well kw1 kw1 07:36 06:[address] via wheelchair. kw1 kw1 09:03 07:00 BP 150 / 98; Pulse 110bpm; Resp 18bpm; Pulse Ox 100% RA; hj hj 09:03 07:42 BP 135 / 75; Pulse 111bpm; Resp 18bpm; Pulse Ox 97% RA; [facility] 09:03 09:02 BP 154 / 99; Pulse 110bpm; Resp 18bpm; Pulse Ox 100% RA; sage
--- NOTE | 2018-05-09 09:13 | EDPHYS ---
Physician Documentation [facility] Name: Renate Gold Age: 53 yrs Sex: Female : 1965 Arrival Date: 05/09/2018 Time: 03:57 Bed 19 Private MD: Maricruz Wei ED Physician Jeremiah Chan HPI: 05/09 05:56 This 53 yrs old Female presents to ER via Wheelchair with complaints of Back gs Pain, Palpitations. 05:56 The patient presents with pain that is acute. The symptoms are located in the right gs scapular area. Onset: The symptoms/episode began/occurred acutely, today. The pain does not radiate. Associated signs and symptoms: Pertinent positives: palpitations. Severity of symptoms: At their worst the symptoms were moderate, in the emergency department the symptoms are unchanged. The patient has experienced similar episodes in the past, a few times. 06:00 Associated signs and symptoms: Pertinent positives: vomiting. Modifying factors: The gs patient symptoms are alleviated by nothing, the patient symptoms are aggravated by nothing. 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 - Hysterectomy lp1 Historical: - Allergies: 04:25 Ciprofloxacin; lp1 04:25 Compazine; lp1 04:25 Ofloxacin; lp1 04:25 Prochlorperazine Maleate; lp1 04:25 Sulfa (Sulfonamide Antibiotics); lp1 - Home Meds: 04:25 sacubitril-valsartan oral 24-26 mg oral 1 tab 2 times per day [Active]; docusate sodium lp1 100 mg Oral cap 1 cap 2 times per day [Active]; sevelamer carbonate 800 mg oral tab 1 tab 3 times per day [Active]; tramadol 50 mg Oral tab 1 tab twice a day [Active]; - PMHx: 04:25 breast cancer-metastasized; Cancer to breast, lungs, bone and spine; CHF; COPD; ESRD; lp1 Pneumonia; Renal Disease; Dialysis- 5x per week; - PSHx: 04:25 Hysterectomy; Cholecystectomy; Cancer tumor removal; lp1 - Immunization history:: Adult Immunizations up to date. - Social history:: Smoking status: Patient/guardian denies using tobacco. - Ebola Screening: : No symptoms or risks identified at this time. ROS: 06:00 All other systems are negative. gs 09:13 Eyes: Negative for injury, pain, redness, and discharge. ma2 Exam: 06:00 Head/Face: Normocephalic, atraumatic. Eyes: Pupils equal round and reactive to light, gs extra-ocular motions intact. Lids and lashes normal. Conjunctiva and sclera are non-icteric and not injected. Cornea within normal limits. Periorbital areas with no swelling, redness, or edema. ENT: Nares patent. No nasal discharge, no septal abnormalities noted. Tympanic membranes are normal and external auditory canals are clear. Oropharynx with no redness, swelling, or masses, exudates, or evidence of obstruction, uvula midline. Mucous membranes moist. Neck: Trachea midline, no thyromegaly or masses palpated, and no cervical lymphadenopathy. Supple, full range of motion without nuchal rigidity, or vertebral point tenderness. No Meningismus. Chest/axilla: Normal chest wall appearance and motion. Nontender with no deformity. No lesions are appreciated. 06:00 Constitutional: The patient appears alert, awake. 06:00 Cardiovascular: Rate: tachycardic, Rhythm: regular. 06:00 ECG was reviewed by the Attending Physician. Vital Signs: 04:18 BP 142 / 99; Pulse 113; Resp 22; Temp 98.9(O); Pulse Ox 96% on 3 lpm NC; Weight 39.01 lp1 kg; Height 5 ft. 3 in. (160.02 cm); Pain 9/10; 05:00 BP 147 / 96; Pulse 111; Resp 24; Pulse Ox 100% on 2 lpm NC; lp1 06:00 BP 131 / 90; Pulse 107; Resp 21; Pulse Ox 100% on 2 lpm NC; lp1 07:00 BP 150 / 98; Pulse 110; Resp 18; Pulse Ox 100% on 2 lpm NC; hj 07:42 BP 135 / 75; Pulse 111; Resp 18; Pulse Ox 97% on 2 lpm NC; hj 09:02 BP 154 / 99; Pulse 110; Resp 18; Pulse Ox 97% on 2 lpm NC; hj 04:18 Body Mass Index 15.23 (39.01 kg, 160.02 cm) lp1 MDM: 04:45 Patient medically screened. gs 09:11 Differential diagnosis: Fracture PE, increased cancer burden vs pneumonia. Data ma2 reviewed: vital signs, nurses notes, lab test result(s), radiologic studies. Counseling: I had a detailed discussion with the patient and/or guardian regarding: the historical points, exam findings, and any diagnostic results supporting the discharge/admit diagnosis, the presence of at least one elevated blood pressure reading (>120/80) during this emergency department visit, the need for outpatient follow up. ED course: she will get HD this afternoon . 05/09 04:58 Order name: Basic Metabolic Panel; Complete Time: 08:15 gs 05/09 04:58 Order name: CBC with Diff; Complete Time: 08:15 gs 05/09 04:58 Order name: PT-INR; Complete Time: 08:15 gs 05/09 04:58 Order name: Troponin (emerg Dept Use Only); Complete Time: 08:15 gs 05/09 04:58 Order name: XRAY Chest (1 view) 05/09 05:44 Order name: CBC Smear Scan; Complete Time: 08:15 EDMS 05/09 04:58 Order name: EKG; Complete Time: 04:58 05/09 04:58 Order name: Cardiac monitoring; Complete Time: 05:11 05/09 04:58 Order name: EKG - Nurse/Tech; Complete Time: 05:06 05/09 06:20 Order name: CT Chest For PE Angio; Complete Time: 08:43 gs 05/09 08:16 Order name: Diet Heart Healthy; Complete Time: 08:16 bd 05/09 04:58 Order name: IV Saline Lock; Complete Time: 05:58 05/09 04:58 Order name: Labs collected and sent; Complete Time: 05:58 05/09 04:58 Order name: O2 Per Protocol; Complete Time: 05:11 05/09 04:58 Order name: O2 Sat Monitoring; Complete Time: 06:24 gs EC:00 Rate is 111 beats/min. Rhythm is regular. QRS interval is normal. T waves are Normal. gs No ST changes noted. Clinical impression: Sinus tachycardia. Interpreted by me. Administered Medications: 06:20 Drug: fentaNYL (PF) 50 mcg Route: IVP; Site: Port-a-cath; lp1 07:46 Follow up: Response: No adverse reaction; Pain is decreased hj 06:20 Drug: Zofran 4 mg Route: IVP; Site: Port-a-cath; lp1 07:45 Follow up: Response: No adverse reaction; Nausea is decreased hj 08:43 Drug: Dilaudid 1 mg Route: IVP; Site: left antecubital; hj 09:19 Follow up: Response: No adverse reaction hj Disposition: 05/09/18 09:12 Discharged to Home. Impression: Pain in right shoulder. - Condition is Stable. - Discharge Instructions: Pain Without a Known Cause. - Medication Reconciliation Form, Thank You Letter, Antibiotic Education, Prescription Opioid Use form. - Follow up: Private Physician; When: Tomorrow; Reason: Continuance of care. - Problem is new. - Symptoms have improved. Signatures: Dispatcher [employer] EDMS Josefina Squires RN RN lp1 Trey Plaza RN RN Brian Garsia MD MD Jeremiah Chan MD MD ma2 Corrections: (The following items were deleted from the chart) 09:54 09:12 05/09/2018 09:12 Discharged to Home. Impression: Pain in right shoulder. hj Condition is Stable. Forms are Medication Reconciliation Form, Thank You Letter, Antibiotic Education, Prescription Opioid Use. Follow up: Private Physician; When: Tomorrow; Reason: Continuance of care. Problem is new. Symptoms have improved. ma2
[2018-05-09 09:59] VITALS: TEMP 98.9
[2018-05-09 10:04] VITALS: O2SAT 97
[2018-05-09 10:06] VITALS: BP 154/99
--- NOTE | 2018-05-09 10:07 | RAD REPORT ---
EXAM DESCRIPTION: RAD - Chest Single View - 05/09/2018 6:12 am CLINICAL HISTORY: CHEST PAIN Chest pain. COMPARISON: Chest Single View dated 05/03/2018; Chest Single View dated 04/23/2018; Chest Single View dated 04/22/2018; Chest Single View dated 04/10/2018 FINDINGS: Portable technique limits examination quality. Mild bilateral pulmonary opacities are noted, similar to comparative examination. Bilateral moderate- sized pleural effusions are present. The heart is mildly enlarged in size with a port catheter in christian ce. Right-sided venous catheter has tip in the SVC. No displaced fractures.
--- NOTE | 2018-05-10 10:10 | EKG ---
Test Date: 2018-05-09 Test Time: 04:15:32 Molded Goods Spot Picker: DELIA MEASUREMENT RESULTS: Intervals: Rate: 111 NC: 128 QRSD: 72 QT: 364 QTc: 495 [place]: P: 64 NC: 128 QRS: 36 T: 80 INTERPRETIVE STATEMENTS: Sinus tachycardia Nonspecific ST and T wave abnormality Abnormal ECG Compared to ECG 05/03/2018 01:41:49 ST (T wave) deviation now present Sinus rhythm no longer present Prolonged QT interval no longer present Electronically Signed On 05-10-18 10:09:27 CDT by Yunior Gibbons
== END 2018-05-09 09:54 | disposition home or self-care (01) ==
LOC: ER 03:55
DX: M25.511 Pain in right shoulder (principal); N18.6 End stage renal disease; Z99.2 Dependence on renal dialysis; I50.9 Heart failure, unspecified; Z85.3 Personal history of malignant neoplasm of breast; Z85.118 Personal history of other malignant neoplasm of bronchus and lung; Z85.830 Personal history of malignant neoplasm of bone; Z85.89 Personal history of malignant neoplasm of other organs and systems; Z88.2 Allergy status to sulfonamides; Z88.3 Allergy status to other anti-infective agents; Z88.8 Allergy status to other drugs, medicaments and biological substances
CPT/HCPCS: 36415; 71045; 71275; 80048; 84484; 85025; 85610; 93005; 99285; J1170; J2405; J3010; Q9967

== ENCOUNTER 2018-05-20 07:00 | Day surgery (SDC) | payer OTHER ==
[2018-05-18 11:17] LABS: Hematocrit 28.9 % (36.0-45.0)
[2018-05-20] MEDS ORDERED: NA CHLORIDE 0.9% 250 ML ONE (07:56)
[2018-05-20] MEDS ORDERED: HEPARIN 500 UNIT/5 ML SYR IV ONE (11:54)
[2018-05-20 12:12] LABS: Hematocrit 32.1 % (36.0-45.0)
--- OUTSIDE RECORDS SUMMARY | 2018-05-24 14:22 | XMS REPORT ---
:1965 [facility] Address [address] [place] [address] Dr. Antony [address] [place] [id number] Care Team Providers Name Role Phone BETTY [...] Value Reference Range Comments IRON (BEAKER) (test nsel=382) 49 ug/dL 40-160 TOTAL IRON BINDING CAPACITY (BEAKER) (test poua=417) 216 ug/dL 250-450 IRON % SATURATION (2) (BEAKER) (test sppi=6129) 23 % 20-55 BASIC METABOLIC [id number] 09:16:00 Test Item Value Reference Range Comments SODIUM (BEAKER) (test 133 meq/L 135-148 fjnh=483) POTASSIUM (BEAKER) (test 3.2 meq/L 3.6-5.5 cydg=594) CHLORIDE (BEAKER) (test 97 meq/L 98-106 nwuo=521) CO2 (BEAKER) (test 24 meq/L 20-29 xtfv=254) BLOOD UREA NITROGEN 16 mg/dL 10-26 (BEAKER) (test sfww=174) CREATININE (BEAKER) (test 2.18 mg/dL 0.50-1.20 xaui=418) GLUCOSE RANDOM (BEAKER) 130 mg/dL 70-110 (test khuk=650) CALCIUM (BEAKER) (test 8.4 mg/dL 8.5-10.5 cwfy=638) EGFR (BEAKER) (test 24 mL/min/1.73 sq m ESTIMATED GFR IS NOT scfz=4947) ACCURATE CREATININE CLEARANCE IN PREDICTING GLOMERULAR FILTRATION RATE. ESTIMATED GFR IS NOT APPLICABLE FOR DIALYSIS PATIENTS. [id number] 06:45:00 Test Item Value Reference Range Comments FERRITIN (BEAKER) (test hwkp=558) 4333 ng/mL 10-291 CBC W/PLT COUNT & AUTO [id number] 05:54:00 Test Item Value Reference Range Comments WHITE BLOOD CELL COUNT (BEAKER) (test mbys=681) 5.2 K/ L 4.0-10.0 RED BLOOD CELL COUNT (BEAKER) (test jzur=281) 2.63 M/ L 4.00-5.00 HEMOGLOBIN (BEAKER) (test nper=496) 8.6 GM/DL 12.0-15.5 HEMATOCRIT (BEAKER) (test zonz=093) 27.2 % 36.0-46.0 MEAN CORPUSCULAR VOLUME (BEAKER) (test iwza=991) 103.4 fL 82.0-99.0 MEAN CORPUSCULAR HEMOGLOBIN (BEAKER) (test 32.7 pg 27.0-33.0 dywe=414) MEAN CORPUSCULAR HEMOGLOBIN CONC (BEAKER) (test 31.6 GM/DL 32.0-36.0 qwkx=331) RED CELL DISTRIBUTION WIDTH (BEAKER) (test 19.9 % 12.0-15.0 nhtl=027) PLATELET COUNT (BEAKER) (test asls=390) 135 K/CU MM 150-430 MEAN PLATELET VOLUME (BEAKER) (test azit=829) 11.1 fL 6.0-11.5 NUCLEATED RED BLOOD CELLS (BEAKER) (test 0 /100 WBC 0-0 ovfd=880) NEUTROPHILS RELATIVE PERCENT (BEAKER) (test 80 % bzmg=066) LYMPHOCYTES RELATIVE PERCENT (BEAKER) (test 10 % erka=867) MONOCYTES RELATIVE PERCENT (BEAKER) (test 8 % egmf=701) EOSINOPHILS RELATIVE PERCENT (BEAKER) (test 1 % gfoe=430) BASOPHILS RELATIVE PERCENT (BEAKER) (test 0 % cmms=176) NEUTROPHILS ABSOLUTE COUNT (BEAKER) (test 4.17 K/ L 1.80-8.00 wert=079) LYMPHOCYTES ABSOLUTE COUNT (BEAKER) (test 0.51 K/ L 1.48-4.50 qhoz=825) MONOCYTES ABSOLUTE COUNT (BEAKER) (test 0.41 K/ L 0.00-1.30 awyg=837) EOSINOPHILS ABSOLUTE COUNT (BEAKER) (test 0.04 K/ L 0.00-0.50 zapm=974) BASOPHILS ABSOLUTE COUNT (BEAKER) (test 0.02 K/ L 0.00-0.20 pwlw=578) IMMATURE GRANULOCYTES-RELATIVE PERCENT (BEAKER) 1 % 0-0 (test seyy=6340) HEMOGLOBIN [id number] 05:50:00 Test Item Value Reference Range Comments HEMOGLOBIN A1C (BEAKER) (test lzfd=094) 4.6 % 4.3-6.1 HEMOGLOBIN [id number] 05:50:00 Test Item Value Reference Range Comments HEMOGLOBIN A1C (BEAKER) (test goiu=567) 4.6 % 4.3-6.1 TROPONIN [id number] 19:01:00 Test Item Value Reference Range Comments TROPONIN I (BEAKER) (test fcjs=677) 0.11 ng/mL 0.00-0.15 Troponin I (TnI) levels [...] acute neurological disease, and persistent tachyarrhythmia.COMPREHENSIVE METABOLIC [id number] 18:55:00 Test Item Value Reference Range Comments TOTAL PROTEIN (BEAKER) 7.9 gm/dL 6.0-8.5 (test ofky=418) ALBUMIN (BEAKER) (test 3.8 g/dL 3.5-5.0 ydne=8298) ALKALINE PHOSPHATASE 73 U/L 30-115 (BEAKER) (test rbgz=176) BILIRUBIN TOTAL (BEAKER) 0.7 mg/dL 0.1-1.2 (test ztyq=735) SODIUM (BEAKER) (test 130 meq/L 135-148 lxle=590) POTASSIUM (BEAKER) (test 4.5 meq/L 3.6-5.5 jlot=473) CHLORIDE (BEAKER) (test 93 meq/L 98-106 lrri=915) CO2 (BEAKER) (test 19 meq/L 20-29 ipwh=340) BLOOD UREA NITROGEN 56 mg/dL 10-26 (BEAKER) (test tqst=802) CREATININE (BEAKER) (test 4.74 mg/dL 0.50-1.20 vphs=570) GLUCOSE RANDOM (BEAKER) 165 mg/dL 70-110 (test xcvv=663) CALCIUM (BEAKER) (test 8.7 mg/dL 8.5-10.5 vkey=568) AST (SGOT) (BEAKER) (test 40 U/L 5-40 vnzd=193) ALT (SGPT) (BEAKER) (test 55 U/L 5-50 bdww=558) EGFR (BEAKER) (test 10 mL/min/1.73 sq m ESTIMATED GFR IS NOT pdph=5392) ACCURATE CREATININE CLEARANCE IN PREDICTING GLOMERULAR FILTRATION RATE. ESTIMATED GFR IS NOT APPLICABLE FOR DIALYSIS PATIENTS. CBC W/PLT COUNT & AUTO [id number] 18:32:00 Test Item Value Reference Range Comments WHITE BLOOD CELL COUNT (BEAKER) (test mhvh=864) 6.7 K/ L 4.0-10.0 RED BLOOD CELL COUNT (BEAKER) (test mjwl=860) 2.68 M/ L 4.00-5.00 HEMOGLOBIN (BEAKER) (test udwa=434) 8.6 GM/DL 12.0-15.5 HEMATOCRIT (BEAKER) (test yorx=721) 27.7 % 36.0-46.0 MEAN CORPUSCULAR VOLUME (BEAKER) (test wlph=609) 103.4 fL 82.0-99.0 MEAN CORPUSCULAR HEMOGLOBIN (BEAKER) (test 32.1 pg 27.0-33.0 rhxn=826) MEAN CORPUSCULAR HEMOGLOBIN CONC (BEAKER) (test 31.0 GM/DL 32.0-36.0 hvmt=700) RED CELL DISTRIBUTION WIDTH (BEAKER) (test 19.1 % 12.0-15.0 wvud=965) PLATELET COUNT (BEAKER) (test kaqu=798) 148 K/CU MM 150-430 MEAN PLATELET VOLUME (BEAKER) (test fvku=048) 10.4 fL 6.0-11.5 NUCLEATED RED BLOOD CELLS (BEAKER) (test 0 /100 WBC 0-0 gpsz=131) NEUTROPHILS RELATIVE PERCENT (BEAKER) (test 84 % zdbz=970) LYMPHOCYTES RELATIVE PERCENT (BEAKER) (test 8 % yzvw=894) MONOCYTES RELATIVE PERCENT (BEAKER) (test 7 % akhd=674) EOSINOPHILS RELATIVE PERCENT (BEAKER) (test 0 % vxea=936) BASOPHILS RELATIVE PERCENT (BEAKER) (test 0 % kqfz=888) NEUTROPHILS ABSOLUTE COUNT (BEAKER) (test 5.59 K/ L 1.80-8.00 zoks=512) LYMPHOCYTES ABSOLUTE COUNT (BEAKER) (test 0.54 K/ L 1.48-4.50 ralv=091) MONOCYTES ABSOLUTE COUNT (BEAKER) (test 0.49 K/ L 0.00-1.30 crmc=328) EOSINOPHILS ABSOLUTE COUNT (BEAKER) (test 0.01 K/ L 0.00-0.50 szkq=875) BASOPHILS ABSOLUTE COUNT (BEAKER) (test 0.03 K/ L 0.00-0.20 ptlx=887) IMMATURE GRANULOCYTES-RELATIVE PERCENT (BEAKER) 1 % 0-0 (test krdg=8248) MARIA LUISA, THROMBIN [id number] 08:05:00Reason for exam:->Thrombin injection to right SFAFINAL REPORT Ultrasound guided thrombin injection, 04/28/2018. 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 Modality: Fluoroscopy. Sedation: None. 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 Assembler Radio And Electrical: Jorge. Approach: Right inguinal region. Estimated blood [...] Contrast was injected through the micropuncture 4 [place] sheath for a DSA run to evaluate [...] MDReport Verified Date/Time: 04/29/2018 08:05:43 Reading Location: [facility] Radiology Reading Room BASIC METABOLIC [id number] 04:40:00 Test Item Value Reference Range Comments SODIUM (BEAKER) (test 131 meq/L 136-145 bvyg=196) POTASSIUM (BEAKER) (test 4.5 meq/L 3.5-5.1 Specimen slightly zzne=030) hemolyzed CHLORIDE (BEAKER) (test 100 meq/L 98-107 dhqc=206) CO2 (BEAKER) (test 22 meq/L 22-29 etlv=859) BLOOD UREA NITROGEN 29 mg/dL 7-21 (BEAKER) (test hddq=343) CREATININE (BEAKER) (test 3.52 mg/dL 0.57-1.25 Specimen slightly zrfr=097) hemolyzed GLUCOSE RANDOM (BEAKER) 110 mg/dL 70-105 (test yyiz=683) CALCIUM (BEAKER) (test 8.6 mg/dL 8.4-10.2 bdor=869) EGFR (BEAKER) (test 14 mL/min/1.73 sq m ESTIMATED GFR IS NOT gqlr=7460) ACCURATE CREATININE CLEARANCE IN PREDICTING GLOMERULAR FILTRATION RATE. ESTIMATED GFR IS NOT APPLICABLE FOR DIALYSIS PATIENTS. [id number] 04:37:00 Test Item Value Reference Range Comments MAGNESIUM (BEAKER) (test 2.0 mg/dL 1.6-2.6 Specimen slightly hemolyzed bviv=992) [id number] 04:37:00 Test Item Value Reference Range Comments PHOSPHORUS (BEAKER) (test 3.1 mg/dL 2.3-4.7 Specimen slightly hemolyzed alvo=102) CBC W/PLT COUNT & AUTO [id number] 04:27:00 Test Item Value Reference Range Comments WHITE BLOOD CELL COUNT (BEAKER) (test uihc=598) 4.0 K/ L 3.5-10.5 RED BLOOD CELL COUNT (BEAKER) (test vdkr=432) 3.04 M/ L 3.93-5.22 HEMOGLOBIN (BEAKER) (test niys=349) 9.5 GM/DL 11.2-15.7 HEMATOCRIT (BEAKER) (test gjwy=341) 30.9 % 34.1-44.9 MEAN CORPUSCULAR VOLUME (BEAKER) (test kaez=507) 101.6 fL 79.4-94.8 MEAN CORPUSCULAR HEMOGLOBIN (BEAKER) (test 31.3 pg 25.6-32.2 mtie=130) MEAN CORPUSCULAR HEMOGLOBIN CONC (BEAKER) (test 30.7 GM/DL 32.2-35.5 xbix=155) RED CELL DISTRIBUTION WIDTH (BEAKER) (test 18.8 % 11.7-14.4 hntx=655) PLATELET COUNT (BEAKER) (test mrkh=695) 139 K/CU MM 150-450 MEAN PLATELET VOLUME (BEAKER) (test ewjt=802) 11.3 fL 9.4-12.3 NUCLEATED RED BLOOD CELLS (BEAKER) (test 0 /100 WBC 0-0 kqyn=498) NEUTROPHILS RELATIVE PERCENT (BEAKER) (test 81 % ipfv=035) LYMPHOCYTES RELATIVE PERCENT (BEAKER) (test 10 % vgkl=980) MONOCYTES RELATIVE PERCENT (BEAKER) (test 7 % vzby=677) EOSINOPHILS RELATIVE PERCENT (BEAKER) (test 1 % gcoe=287) BASOPHILS RELATIVE PERCENT (BEAKER) (test 1 % gbkb=448) NEUTROPHILS ABSOLUTE COUNT (BEAKER) (test 3.25 K/ L 1.56-6.13 jzrz=926) LYMPHOCYTES ABSOLUTE COUNT (BEAKER) (test 0.38 K/ L 1.18-3.74 cwbd=882) MONOCYTES ABSOLUTE COUNT (BEAKER) (test 0.28 K/ L 0.24-0.36 fizw=722) EOSINOPHILS ABSOLUTE COUNT (BEAKER) (test 0.04 K/ L 0.04-0.36 wnzg=671) BASOPHILS ABSOLUTE COUNT (BEAKER) (test 0.02 K/ L 0.01-0.08 afbh=513) IMMATURE GRANULOCYTES-RELATIVE PERCENT (BEAKER) 1 % 0-1 (test czva=3682) TROPONIN [id number] 10:14:00 Test Item Value Reference Range Comments TROPONIN I (BEAKER) (test fxke=214) 0.08 ng/mL 0.00-0.03 Troponin I (TnI) levels [...] acute neurological disease, and persistent tachyarrhythmia.BASIC METABOLIC [id number] 07:57:00 Test Item Value Reference Range Comments SODIUM (BEAKER) (test 128 meq/L 136-145 mwve=819) POTASSIUM (BEAKER) (test 4.7 meq/L 3.5-5.1 twml=748) CHLORIDE (BEAKER) (test 94 meq/L 98-107 pzra=248) CO2 (BEAKER) (test 22 meq/L 22-29 vxep=550) BLOOD UREA NITROGEN 49 mg/dL 7-21 (BEAKER) (test lqzb=484) CREATININE (BEAKER) (test 4.78 mg/dL 0.57-1.25 lckw=270) GLUCOSE RANDOM (BEAKER) 88 mg/dL 70-105 (test wocu=626) CALCIUM (BEAKER) (test 8.4 mg/dL 8.4-10.2 ttcl=708) EGFR (BEAKER) (test 10 mL/min/1.73 sq m ESTIMATED GFR IS NOT njqr=3410) ACCURATE CREATININE CLEARANCE IN PREDICTING GLOMERULAR FILTRATION RATE. ESTIMATED GFR IS NOT APPLICABLE FOR DIALYSIS PATIENTS. [id number] 07:41:00 Test Item Value Reference Range Comments PHOSPHORUS (BEAKER) (test ffxy=161) 2.8 mg/dL 2.3-4.7 [id number] 07:41:00 Test Item Value Reference Range Comments MAGNESIUM (BEAKER) (test hobk=711) 1.8 mg/dL 1.6-2.6 CBC W/PLT COUNT & AUTO [id number] 07:25:00 Test Item Value Reference Range Comments WHITE BLOOD CELL COUNT (BEAKER) (test rbaz=161) 2.9 K/ L 3.5-10.5 RED BLOOD CELL COUNT (BEAKER) (test ijgc=643) 2.89 M/ L 3.93-5.22 HEMOGLOBIN (BEAKER) (test efkt=071) 9.1 GM/DL 11.2-15.7 HEMATOCRIT (BEAKER) (test yynv=675) 29.2 % 34.1-44.9 MEAN CORPUSCULAR VOLUME (BEAKER) (test xgrz=098) 101.0 fL 79.4-94.8 MEAN CORPUSCULAR HEMOGLOBIN (BEAKER) (test 31.5 pg 25.6-32.2 fmtl=070) MEAN CORPUSCULAR HEMOGLOBIN CONC (BEAKER) (test 31.2 GM/DL 32.2-35.5 rgfd=630) RED CELL DISTRIBUTION WIDTH (BEAKER) (test 18.5 % 11.7-14.4 erdd=850) PLATELET COUNT (BEAKER) (test iyzi=742) 110 K/CU MM 150-450 MEAN PLATELET VOLUME (BEAKER) (test hfsn=558) 11.3 fL 9.4-12.3 NUCLEATED RED BLOOD CELLS (BEAKER) (test 0 /100 WBC 0-0 kwrq=306) NEUTROPHILS RELATIVE PERCENT (BEAKER) (test 77 % rtnn=647) LYMPHOCYTES RELATIVE PERCENT (BEAKER) (test 12 % umfh=219) MONOCYTES RELATIVE PERCENT (BEAKER) (test 9 % nnhw=200) EOSINOPHILS RELATIVE PERCENT (BEAKER) (test 2 % juun=968) BASOPHILS RELATIVE PERCENT (BEAKER) (test 0 % ldvb=330) NEUTROPHILS ABSOLUTE COUNT (BEAKER) (test 2.20 K/ L 1.56-6.13 ebyk=936) LYMPHOCYTES ABSOLUTE COUNT (BEAKER) (test 0.33 K/ L 1.18-3.74 qmgr=464) MONOCYTES ABSOLUTE COUNT (BEAKER) (test 0.26 K/ L 0.24-0.36 amjh=953) EOSINOPHILS ABSOLUTE COUNT (BEAKER) (test 0.05 K/ L 0.04-0.36 cuel=060) BASOPHILS ABSOLUTE COUNT (BEAKER) (test 0.01 K/ L 0.01-0.08 jvqh=107) IMMATURE GRANULOCYTES-RELATIVE PERCENT (BEAKER) 0 % 0-1 (test tlpr=1831) CBC W/PLT COUNT & AUTO [id number] 14:22:00 Test Item Value Reference Range Comments WHITE BLOOD CELL COUNT (BEAKER) (test gfjp=698) 2.4 K/ L 3.5-10.5 RED BLOOD CELL COUNT (BEAKER) (test rsmn=361) 2.75 M/ L 3.93-5.22 HEMOGLOBIN (BEAKER) (test mphs=799) 8.8 GM/DL 11.2-15.7 HEMATOCRIT (BEAKER) (test unlu=106) 27.8 % 34.1-44.9 MEAN CORPUSCULAR VOLUME (BEAKER) (test krwj=926) 101.1 fL 79.4-94.8 MEAN CORPUSCULAR HEMOGLOBIN (BEAKER) (test 32.0 pg 25.6-32.2 xlvt=861) MEAN CORPUSCULAR HEMOGLOBIN CONC (BEAKER) (test 31.7 GM/DL 32.2-35.5 ffww=499) RED CELL DISTRIBUTION WIDTH (BEAKER) (test 18.9 % 11.7-14.4 tvju=593) PLATELET COUNT (BEAKER) (test wcwb=178) 118 K/CU MM 150-450 MEAN PLATELET VOLUME (BEAKER) (test sbqa=794) 10.8 fL 9.4-12.3 NUCLEATED RED BLOOD CELLS (BEAKER) (test 0 /100 WBC 0-0 bwsk=788) NEUTROPHILS RELATIVE PERCENT (BEAKER) (test 78 % jetp=868) LYMPHOCYTES RELATIVE PERCENT (BEAKER) (test 11 % aouh=420) MONOCYTES RELATIVE PERCENT (BEAKER) (test 8 % wlnw=617) EOSINOPHILS RELATIVE PERCENT (BEAKER) (test 2 % ysjc=780) BASOPHILS RELATIVE PERCENT (BEAKER) (test 0 % uitl=683) NEUTROPHILS ABSOLUTE COUNT (BEAKER) (test 1.86 K/ L 1.56-6.13 anxn=527) LYMPHOCYTES ABSOLUTE COUNT (BEAKER) (test 0.27 K/ L 1.18-3.74 vork=616) MONOCYTES ABSOLUTE COUNT (BEAKER) (test 0.19 K/ L 0.24-0.36 gzua=581) EOSINOPHILS ABSOLUTE COUNT (BEAKER) (test 0.05 K/ L 0.04-0.36 nuye=841) BASOPHILS ABSOLUTE COUNT (BEAKER) (test 0.01 K/ L 0.01-0.08 ddzv=889) IMMATURE GRANULOCYTES-RELATIVE PERCENT (BEAKER) 0 % 0-1 (test jfwa=2017) BASIC METABOLIC [id number] 07:59:00 Test Item Value Reference Range Comments SODIUM (BEAKER) (test 131 meq/L 136-145 tnlt=377) POTASSIUM (BEAKER) (test 4.0 meq/L 3.5-5.1 hgaa=892) CHLORIDE (BEAKER) (test 96 meq/L 98-107 ltuy=848) CO2 (BEAKER) (test 23 meq/L 22-29 vhgz=181) BLOOD UREA NITROGEN 31 mg/dL 7-21 (BEAKER) (test wzfs=807) CREATININE (BEAKER) (test 3.42 mg/dL 0.57-1.25 vqma=949) GLUCOSE RANDOM (BEAKER) 94 mg/dL 70-105 (test hvdu=300) CALCIUM (BEAKER) (test 8.8 mg/dL 8.4-10.2 qfqc=806) EGFR (BEAKER) (test 14 mL/min/1.73 sq m ESTIMATED GFR IS NOT smwk=7964) ACCURATE CREATININE CLEARANCE IN PREDICTING GLOMERULAR FILTRATION RATE. ESTIMATED GFR IS NOT APPLICABLE FOR DIALYSIS PATIENTS. [id number] 07:53:00 Test Item Value Reference Range Comments PHOSPHORUS (BEAKER) (test bdie=540) 3.1 mg/dL 2.3-4.7 [id number] 07:53:00 Test Item Value Reference Range Comments MAGNESIUM (BEAKER) (test femu=384) 1.8 mg/dL 1.6-2.6 CBC W/PLT COUNT & AUTO [id number] 07:42:00 Test Item Value Reference Range Comments WHITE BLOOD CELL COUNT (BEAKER) (test ajgk=903) 2.6 K/ L 3.5-10.5 RED BLOOD CELL COUNT (BEAKER) (test kmhi=664) 2.89 M/ L 3.93-5.22 HEMOGLOBIN (BEAKER) (test xqqf=704) 9.0 GM/DL 11.2-15.7 HEMATOCRIT (BEAKER) (test bfik=139) 29.1 % 34.1-44.9 MEAN CORPUSCULAR VOLUME (BEAKER) (test vtiz=867) 100.7 fL 79.4-94.8 MEAN CORPUSCULAR HEMOGLOBIN (BEAKER) (test 31.1 pg 25.6-32.2 twxq=150) MEAN CORPUSCULAR HEMOGLOBIN CONC (BEAKER) (test 30.9 GM/DL 32.2-35.5 whct=318) RED CELL DISTRIBUTION WIDTH (BEAKER) (test 18.9 % 11.7-14.4 humv=237) PLATELET COUNT (BEAKER) (test ezcw=255) 106 K/CU MM 150-450 MEAN PLATELET VOLUME (BEAKER) (test hhge=099) 11.1 fL 9.4-12.3 NUCLEATED RED BLOOD CELLS (BEAKER) (test 0 /100 WBC 0-0 akfe=744) NEUTROPHILS RELATIVE PERCENT (BEAKER) (test 77 % rbdq=828) LYMPHOCYTES RELATIVE PERCENT (BEAKER) (test 10 % tfvf=856) MONOCYTES RELATIVE PERCENT (BEAKER) (test 10 % tjyj=176) EOSINOPHILS RELATIVE PERCENT (BEAKER) (test 2 % zxph=095) BASOPHILS RELATIVE PERCENT (BEAKER) (test 1 % vfty=889) NEUTROPHILS ABSOLUTE COUNT (BEAKER) (test 1.97 K/ L 1.56-6.13 stjr=203) LYMPHOCYTES ABSOLUTE COUNT (BEAKER) (test 0.25 K/ L 1.18-3.74 mcfh=770) MONOCYTES ABSOLUTE COUNT (BEAKER) (test 0.25 K/ L 0.24-0.36 jnui=732) EOSINOPHILS ABSOLUTE COUNT (BEAKER) (test 0.05 K/ L 0.04-0.36 tjdf=991) BASOPHILS ABSOLUTE COUNT (BEAKER) (test 0.02 K/ L 0.01-0.08 ekhl=841) IMMATURE GRANULOCYTES-RELATIVE PERCENT (BEAKER) 1 % 0-1 (test zosi=3614) CBC W/PLT COUNT & AUTO [id number] 05:15:00 Test Item Value Reference Range Comments WHITE BLOOD CELL COUNT (BEAKER) (test yuew=121) 2.8 K/ L 3.5-10.5 RED BLOOD CELL COUNT (BEAKER) (test okcc=915) 2.86 M/ L 3.93-5.22 HEMOGLOBIN (BEAKER) (test tnos=147) 9.1 GM/DL 11.2-15.7 HEMATOCRIT (BEAKER) (test ptxa=347) 28.6 % 34.1-44.9 MEAN CORPUSCULAR VOLUME (BEAKER) (test kfiy=475) 100.0 fL 79.4-94.8 MEAN CORPUSCULAR HEMOGLOBIN (BEAKER) (test 31.8 pg 25.6-32.2 elbd=882) MEAN CORPUSCULAR HEMOGLOBIN CONC (BEAKER) (test 31.8 GM/DL 32.2-35.5 gfdh=390) RED CELL DISTRIBUTION WIDTH (BEAKER) (test 18.8 % 11.7-14.4 pzsk=597) PLATELET COUNT (BEAKER) (test dsas=520) 80 K/CU MM 150-450 MEAN PLATELET VOLUME (BEAKER) (test ddts=325) 11.2 fL 9.4-12.3 NUCLEATED RED BLOOD CELLS (BEAKER) (test 0 /100 WBC 0-0 amoj=887) NEUTROPHILS RELATIVE PERCENT (BEAKER) (test 76 % iftp=139) LYMPHOCYTES RELATIVE PERCENT (BEAKER) (test 13 % ztrm=692) MONOCYTES RELATIVE PERCENT (BEAKER) (test 8 % sure=775) EOSINOPHILS RELATIVE PERCENT (BEAKER) (test 1 % vvqw=493) BASOPHILS RELATIVE PERCENT (BEAKER) (test 0 % fovj=314) NEUTROPHILS ABSOLUTE COUNT (BEAKER) (test 2.13 K/ L 1.56-6.13 ffha=672) LYMPHOCYTES ABSOLUTE COUNT (BEAKER) (test 0.37 K/ L 1.18-3.74 bbfo=449) MONOCYTES ABSOLUTE COUNT (BEAKER) (test kzei=013) 0.23 K/ L 0.24-0.36 EOSINOPHILS ABSOLUTE COUNT (BEAKER) (test 0.04 K/ L 0.04-0.36 ezyv=428) BASOPHILS ABSOLUTE COUNT (BEAKER) (test xslf=576) 0.01 K/ L 0.01-0.08 IMMATURE GRANULOCYTES-RELATIVE PERCENT (BEAKER) 0 % 0-1 (test wxcr=4029) BASIC METABOLIC [id number] 04:41:00 Test Item Value Reference Range Comments SODIUM (BEAKER) (test 129 meq/L 136-145 lvze=569) POTASSIUM (BEAKER) (test 5.0 meq/L 3.5-5.1 fptd=790) CHLORIDE (BEAKER) (test 96 meq/L 98-107 rdfh=283) CO2 (BEAKER) (test 20 meq/L 22-29 ulpb=454) BLOOD UREA NITROGEN 65 mg/dL 7-21 (BEAKER) (test umub=445) CREATININE (BEAKER) (test 5.28 mg/dL 0.57-1.25 cobk=592) GLUCOSE RANDOM (BEAKER) 101 mg/dL 70-105 (test mkln=047) CALCIUM (BEAKER) (test 9.0 mg/dL 8.4-10.2 jqxa=251) EGFR (BEAKER) (test 9 mL/min/1.73 sq m ESTIMATED GFR IS NOT xwev=8071) ACCURATE CREATININE CLEARANCE IN PREDICTING GLOMERULAR FILTRATION RATE. ESTIMATED GFR IS NOT APPLICABLE FOR DIALYSIS PATIENTS. [id number] 04:39:00 Test Item Value Reference Range Comments PHOSPHORUS (BEAKER) (test preh=926) 3.4 mg/dL 2.3-4.7 [id number] 04:39:00 Test Item Value Reference Range Comments MAGNESIUM (BEAKER) (test awsh=954) 2.0 mg/dL 1.6-2.6 [id number] 23:54:00 Test Item Value Reference Range Comments HAPTOGLOBIN (BEAKER) (test zars=720) < mg/dL 14-258 CBC W/PLT COUNT & AUTO [id number] 23:39:00 Test Item Value Reference Range Comments WHITE BLOOD CELL COUNT (BEAKER) (test pylb=545) 3.3 K/ L 3.5-10.5 RED BLOOD CELL COUNT (BEAKER) (test juwg=148) 3.06 M/ L 3.93-5.22 HEMOGLOBIN (BEAKER) (test bstk=689) 9.6 GM/DL 11.2-15.7 HEMATOCRIT (BEAKER) (test apti=559) 30.3 % 34.1-44.9 MEAN CORPUSCULAR VOLUME (BEAKER) (test uued=782) 99.0 fL 79.4-94.8 MEAN CORPUSCULAR HEMOGLOBIN (BEAKER) (test 31.4 pg 25.6-32.2 xywn=381) MEAN CORPUSCULAR HEMOGLOBIN CONC (BEAKER) (test 31.7 GM/DL 32.2-35.5 mztb=822) RED CELL DISTRIBUTION WIDTH (BEAKER) (test 18.8 % 11.7-14.4 eygo=690) PLATELET COUNT (BEAKER) (test spzy=179) 98 K/CU MM 150-450 MEAN PLATELET VOLUME (BEAKER) (test znve=255) 11.5 fL 9.4-12.3 NUCLEATED RED BLOOD CELLS (BEAKER) (test 0 /100 WBC 0-0 vugp=443) NEUTROPHILS RELATIVE PERCENT (BEAKER) (test 79 % qsvq=523) LYMPHOCYTES RELATIVE PERCENT (BEAKER) (test 12 % tmgf=083) MONOCYTES RELATIVE PERCENT (BEAKER) (test 7 % ohvx=150) EOSINOPHILS RELATIVE PERCENT (BEAKER) (test 1 % iitp=348) BASOPHILS RELATIVE PERCENT (BEAKER) (test 1 % shmn=896) NEUTROPHILS ABSOLUTE COUNT (BEAKER) (test 2.64 K/ L 1.56-6.13 qrlj=286) LYMPHOCYTES ABSOLUTE COUNT (BEAKER) (test 0.40 K/ L 1.18-3.74 fjtw=224) MONOCYTES ABSOLUTE COUNT (BEAKER) (test cylg=079) 0.22 K/ L 0.24-0.36 EOSINOPHILS ABSOLUTE COUNT (BEAKER) (test 0.04 K/ L 0.04-0.36 alhe=851) BASOPHILS ABSOLUTE COUNT (BEAKER) (test cfxf=192) 0.02 K/ L 0.01-0.08 IMMATURE GRANULOCYTES-RELATIVE PERCENT (BEAKER) 0 % 0-1 (test slgw=1553) HEPATITIS B SURFACE [id number] 21:44:00 Test Item Value Reference Range Comments HEPATITIS B SURFACE ANTIGEN (2) (BEAKER) (test Nonreactive Nonreactive jdya=7073) CBC W/PLT COUNT & AUTO [id number] 21:03:00 Test Item Value Reference Range Comments WHITE BLOOD CELL COUNT (BEAKER) (test gjlj=107) 3.3 K/ L 3.5-10.5 RED BLOOD CELL COUNT (BEAKER) (test bcve=515) 2.96 M/ L 3.93-5.22 HEMOGLOBIN (BEAKER) (test txtm=583) 9.4 GM/DL 11.2-15.7 HEMATOCRIT (BEAKER) (test wwbz=378) 29.7 % 34.1-44.9 MEAN CORPUSCULAR VOLUME (BEAKER) (test qvqb=701) 100.3 fL 79.4-94.8 MEAN CORPUSCULAR HEMOGLOBIN (BEAKER) (test 31.8 pg 25.6-32.2 yfpt=083) MEAN CORPUSCULAR HEMOGLOBIN CONC (BEAKER) (test 31.6 GM/DL 32.2-35.5 ajcw=934) RED CELL DISTRIBUTION WIDTH (BEAKER) (test 19.0 % 11.7-14.4 mqql=777) PLATELET COUNT (BEAKER) (test dalt=151) 100 K/CU MM 150-450 MEAN PLATELET VOLUME (BEAKER) (test ilgw=949) 10.2 fL 9.4-12.3 NUCLEATED RED BLOOD CELLS (BEAKER) (test 0 /100 WBC 0-0 yqfy=009) NEUTROPHILS RELATIVE PERCENT (BEAKER) (test 80 % amyo=053) LYMPHOCYTES RELATIVE PERCENT (BEAKER) (test 10 % sfei=280) MONOCYTES RELATIVE PERCENT (BEAKER) (test 8 % snjl=211) EOSINOPHILS RELATIVE PERCENT (BEAKER) (test 1 % oubs=188) BASOPHILS RELATIVE PERCENT (BEAKER) (test 0 % llpp=681) NEUTROPHILS ABSOLUTE COUNT (BEAKER) (test 2.59 K/ L 1.56-6.13 swzk=381) LYMPHOCYTES ABSOLUTE COUNT (BEAKER) (test 0.33 K/ L 1.18-3.74 rzdf=010) MONOCYTES ABSOLUTE COUNT (BEAKER) (test 0.26 K/ L 0.24-0.36 fwkz=355) EOSINOPHILS ABSOLUTE COUNT (BEAKER) (test 0.04 K/ L 0.04-0.36 aihg=043) BASOPHILS ABSOLUTE COUNT (BEAKER) (test 0.01 K/ L 0.01-0.08 nrfw=452) IMMATURE GRANULOCYTES-RELATIVE PERCENT (BEAKER) 1 % 0-1 (test hdah=4256) PERIPHERAL BLOOD SMEAR - HOLD [id number] 16:54:00 Test Item Value Reference Range Comments PERIPHERAL SMEAR SAVE (BEAKER) (test szqn=1101) saved LACTATE DEHYDROGENASE (LDH)[id number] 16:40:00 Test Item Value Reference Range Comments LACTATE DEHYDROGENASE (BEAKER) (test uokw=642) 332 U/L 125-220 CBC W/PLT COUNT & AUTO [id number] 16:27:00 Test Item Value Reference Range Comments WHITE BLOOD CELL COUNT (BEAKER) (test jovr=930) 2.7 K/ L 3.5-10.5 RED BLOOD CELL COUNT (BEAKER) (test tnfi=249) 3.15 M/ L 3.93-5.22 HEMOGLOBIN (BEAKER) (test qfch=862) 10.0 GM/DL 11.2-15.7 HEMATOCRIT (BEAKER) (test nfae=877) 31.5 % 34.1-44.9 MEAN CORPUSCULAR VOLUME (BEAKER) (test dijl=533) 100.0 fL 79.4-94.8 MEAN CORPUSCULAR HEMOGLOBIN (BEAKER) (test 31.7 pg 25.6-32.2 veae=310) MEAN CORPUSCULAR HEMOGLOBIN CONC (BEAKER) (test 31.7 GM/DL 32.2-35.5 npxv=157) RED CELL DISTRIBUTION WIDTH (BEAKER) (test 19.0 % 11.7-14.4 jnsx=184) PLATELET COUNT (BEAKER) (test jbyc=086) 96 K/CU MM 150-450 MEAN PLATELET VOLUME (BEAKER) (test pxqr=433) 9.8 fL 9.4-12.3 NUCLEATED RED BLOOD CELLS (BEAKER) (test 0 /100 WBC 0-0 wqwf=517) NEUTROPHILS RELATIVE PERCENT (BEAKER) (test 76 % qoua=867) LYMPHOCYTES RELATIVE PERCENT (BEAKER) (test 12 % hwtx=630) MONOCYTES RELATIVE PERCENT (BEAKER) (test 10 % ltqp=519) EOSINOPHILS RELATIVE PERCENT (BEAKER) (test 1 % wwhx=343) BASOPHILS RELATIVE PERCENT (BEAKER) (test 1 % chya=286) NEUTROPHILS ABSOLUTE COUNT (BEAKER) (test 2.02 K/ L 1.56-6.13 wlgz=345) LYMPHOCYTES ABSOLUTE COUNT (BEAKER) (test 0.31 K/ L 1.18-3.74 abbx=880) MONOCYTES ABSOLUTE COUNT (BEAKER) (test zycb=124) 0.27 K/ L 0.24-0.36 EOSINOPHILS ABSOLUTE COUNT (BEAKER) (test 0.03 K/ L 0.04-0.36 aqpb=355) BASOPHILS ABSOLUTE COUNT (BEAKER) (test ujit=357) 0.02 K/ L 0.01-0.08 IMMATURE GRANULOCYTES-RELATIVE PERCENT (BEAKER) 1 % 0-1 (test jjbu=3739) [id number] 07:39:00 Test Item Value Reference Range Comments PHOSPHORUS (BEAKER) (test mrqd=192) 3.1 mg/dL 2.3-4.7 [id number] 07:39:00 Test Item Value Reference Range Comments MAGNESIUM (BEAKER) (test xuuu=419) 2.0 mg/dL 1.6-2.6 BASIC METABOLIC [id number] 07:39:00 Test Item Value Reference Range Comments SODIUM (BEAKER) (test 132 meq/L 136-145 bldd=770) POTASSIUM (BEAKER) (test 4.2 meq/L 3.5-5.1 ypjg=949) CHLORIDE (BEAKER) (test 97 meq/L 98-107 tmso=308) CO2 (BEAKER) (test 23 meq/L 22-29 ucsi=187) BLOOD UREA NITROGEN 42 mg/dL 7-21 (BEAKER) (test vndn=284) CREATININE (BEAKER) (test 3.49 mg/dL 0.57-1.25 finx=868) GLUCOSE RANDOM (BEAKER) 84 mg/dL 70-105 (test vfay=446) CALCIUM (BEAKER) (test 9.0 mg/dL 8.4-10.2 buik=055) EGFR (BEAKER) (test 14 mL/min/1.73 sq m ESTIMATED GFR IS NOT hiek=9239) ACCURATE CREATININE CLEARANCE IN PREDICTING GLOMERULAR FILTRATION RATE. ESTIMATED GFR IS NOT APPLICABLE FOR DIALYSIS PATIENTS. CBC W/PLT COUNT & AUTO [id number] 07:24:00 Test Item Value Reference Range Comments WHITE BLOOD CELL COUNT (BEAKER) (test qzxi=542) 2.8 K/ L 3.5-10.5 RED BLOOD CELL COUNT (BEAKER) (test pepv=882) 2.96 M/ L 3.93-5.22 HEMOGLOBIN (BEAKER) (test qipw=269) 9.5 GM/DL 11.2-15.7 HEMATOCRIT (BEAKER) (test ptnd=180) 29.8 % 34.1-44.9 MEAN CORPUSCULAR VOLUME (BEAKER) (test wpzw=102) 100.7 fL 79.4-94.8 MEAN CORPUSCULAR HEMOGLOBIN (BEAKER) (test 32.1 pg 25.6-32.2 hsry=404) MEAN CORPUSCULAR HEMOGLOBIN CONC (BEAKER) (test 31.9 GM/DL 32.2-35.5 xpvg=186) RED CELL DISTRIBUTION WIDTH (BEAKER) (test 19.3 % 11.7-14.4 adru=259) PLATELET COUNT (BEAKER) (test gokh=681) 95 K/CU MM 150-450 MEAN PLATELET VOLUME (BEAKER) (test hxkr=441) 11.3 fL 9.4-12.3 NUCLEATED RED BLOOD CELLS (BEAKER) (test 0 /100 WBC 0-0 kckr=124) NEUTROPHILS RELATIVE PERCENT (BEAKER) (test 77 % zzeg=543) LYMPHOCYTES RELATIVE PERCENT (BEAKER) (test 12 % mzkb=442) MONOCYTES RELATIVE PERCENT (BEAKER) (test 9 % gjjs=077) EOSINOPHILS RELATIVE PERCENT (BEAKER) (test 1 % jwlj=939) BASOPHILS RELATIVE PERCENT (BEAKER) (test 0 % onzz=838) NEUTROPHILS ABSOLUTE COUNT (BEAKER) (test 2.16 K/ L 1.56-6.13 chka=712) LYMPHOCYTES ABSOLUTE COUNT (BEAKER) (test 0.32 K/ L 1.18-3.74 gren=120) MONOCYTES ABSOLUTE COUNT (BEAKER) (test mwcu=600) 0.26 K/ L 0.24-0.36 EOSINOPHILS ABSOLUTE COUNT (BEAKER) (test 0.03 K/ L 0.04-0.36 oojp=059) BASOPHILS ABSOLUTE COUNT (BEAKER) (test knxi=945) 0.01 K/ L 0.01-0.08 IMMATURE GRANULOCYTES-RELATIVE PERCENT (BEAKER) 0 % 0-1 (test inrc=4968) BLOOD [id number] 06:00:00 Test Item Value Reference Range Comments CULTURE (BEAKER) (test dnrh=5602) No growth in 5 days ANG, CV ACCESS, [id number] 17:46:00Reason for exam:->TDC placement for outpatient HDFINAL REPORT Tunneled dialysis catheter insertion. History: Renal failure. Modality: Sonography and fluoroscopy. Sedation: Versed 0.5 mg and fentanyl 25 mcg was given intravenously for conscious sedation. Vital signs were monitored throughout the procedure by a nurse, and remained stable. Physician intra-service time was 15 minutes. 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 Approach: Right internal jugular vein Estimatedblood [...] needle into the right atrium. A 4 Senegalese micropuncture sheath was placed. A subcutaneous tunnel was created in the right anterior chest wall by blunt dissection. A 19 cm 15.5 [place]e Duraflow 2catheter was brought through the tunnel. [...] Funkort Verified Date/Time: 04/01/2018 17:46:56 Reading Location: [facility] P048 Angio Body Reading Room TISSUE [id number] 11:52:00Surgical Pathology Report Case: [id number] Authorizing Provider: Michelle Ram MD Collected: 03/24/2018 1253 Ordering Location: [address] Received: 03/24/2018 1254 Service Pathologist: Dennise Jo MD Specimen: Kidney, Left, Left kidney needle biopsy KIDNEY, LEFT, NEEDLE BIOPSIES- ACUTE THROMBOTIC MICROANGIOPATHY- MODERATE INTERSTITIAL FIBROSIS AND TUBULAR ATROPHY ( ~40%) Signing Pathologist Direct Phone Line: [phone] signed by Dennise Jo MD on 03/31/2018 [...] Dr. Vital on 03/25/2018 at 10.15 am. [id number], [id number] X3, 20266, 80662 x8, 94974Bcth renal failure evaluationNative left kidney biopsyThe specimen [...] with extensive effacement of foot processes.BASIC METABOLIC [id number] 06:14:00 Test Item Value Reference Range Comments SODIUM (BEAKER) (test 133 meq/L 136-145 gpwd=082) POTASSIUM (BEAKER) (test 4.6 meq/L 3.5-5.1 ungu=546) CHLORIDE (BEAKER) (test 99 meq/L 98-107 qzxr=548) CO2 (BEAKER) (test 24 meq/L 22-29 jwec=372) BLOOD UREA NITROGEN 45 mg/dL 7-21 (BEAKER) (test ltpm=302) CREATININE (BEAKER) (test 4.49 mg/dL 0.57-1.25 ywsk=639) GLUCOSE RANDOM (BEAKER) 95 mg/dL 70-105 (test sebx=151) CALCIUM (BEAKER) (test 8.1 mg/dL 8.4-10.2 mtxw=803) EGFR (BEAKER) (test 10 mL/min/1.73 sq m ESTIMATED GFR IS NOT ycun=4671) ACCURATE CREATININE CLEARANCE IN PREDICTING GLOMERULAR FILTRATION RATE. ESTIMATED GFR IS NOT APPLICABLE FOR DIALYSIS PATIENTS. [id number] 06:05:00 Test Item Value Reference Range Comments MAGNESIUM (BEAKER) (test whds=087) 1.9 mg/dL 1.6-2.6 CBC W/PLT COUNT & AUTO [id number] 05:20:00 Test Item Value Reference Range Comments WHITE BLOOD CELL COUNT (BEAKER) (test ddua=666) 4.1 K/ L 3.5-10.5 RED BLOOD CELL COUNT (BEAKER) (test eqdq=186) 2.55 M/ L 3.93-5.22 HEMOGLOBIN (BEAKER) (test vzzz=634) 8.0 GM/DL 11.2-15.7 HEMATOCRIT (BEAKER) (test mfli=187) 26.0 % 34.1-44.9 MEAN CORPUSCULAR VOLUME (BEAKER) (test edqc=661) 102.0 fL 79.4-94.8 MEAN CORPUSCULAR HEMOGLOBIN (BEAKER) (test 31.4 pg 25.6-32.2 xxtg=603) MEAN CORPUSCULAR HEMOGLOBIN CONC (BEAKER) (test 30.8 GM/DL 32.2-35.5 kzty=276) RED CELL DISTRIBUTION WIDTH (BEAKER) (test 18.9 % 11.7-14.4 htrr=813) PLATELET COUNT (BEAKER) (test fvre=738) 54 K/CU MM 150-450 MEAN PLATELET VOLUME (BEAKER) (test aypy=572) 12.9 fL 9.4-12.3 NUCLEATED RED BLOOD CELLS (BEAKER) (test 0 /100 WBC 0-0 uisw=378) NEUTROPHILS RELATIVE PERCENT (BEAKER) (test 84 % hieb=867) LYMPHOCYTES RELATIVE PERCENT (BEAKER) (test 8 % vhop=443) MONOCYTES RELATIVE PERCENT (BEAKER) (test 7 % pvnd=167) EOSINOPHILS RELATIVE PERCENT (BEAKER) (test 1 % dahp=509) BASOPHILS RELATIVE PERCENT (BEAKER) (test 0 % pido=057) NEUTROPHILS ABSOLUTE COUNT (BEAKER) (test 3.45 K/ L 1.56-6.13 fbew=186) LYMPHOCYTES ABSOLUTE COUNT (BEAKER) (test 0.33 K/ L 1.18-3.74 bnry=997) MONOCYTES ABSOLUTE COUNT (BEAKER) (test xfwu=223) 0.28 K/ L 0.24-0.36 EOSINOPHILS ABSOLUTE COUNT (BEAKER) (test 0.03 K/ L 0.04-0.36 nigy=349) BASOPHILS ABSOLUTE COUNT (BEAKER) (test lslc=615) 0.01 K/ L 0.01-0.08 IMMATURE GRANULOCYTES-RELATIVE PERCENT (BEAKER) 1 % 0-1 (test stgo=4635) POCT-GLUCOSE [id number] 18:43:00 Test Item Value Reference Range Comments POC-GLUCOSE METER (BEAKER) 121 mg/dL 70-110 TESTED AT [address] (test pzls=6274) [facility] [address] BASIC METABOLIC [id number] 06:46:00 Test Item Value Reference Range Comments SODIUM (BEAKER) (test 133 meq/L 136-145 gsfn=631) POTASSIUM (BEAKER) (test 4.1 meq/L 3.5-5.1 biap=396) CHLORIDE (BEAKER) (test 98 meq/L 98-107 impp=707) CO2 (BEAKER) (test 25 meq/L 22-29 zbbr=537) BLOOD UREA NITROGEN 27 mg/dL 7-21 (BEAKER) (test vlqa=593) CREATININE (BEAKER) (test 2.91 mg/dL 0.57-1.25 iiwv=239) GLUCOSE RANDOM (BEAKER) 92 mg/dL 70-105 (test prod=963) CALCIUM (BEAKER) (test 8.3 mg/dL 8.4-10.2 icdb=593) EGFR (BEAKER) (test 17 mL/min/1.73 sq m ESTIMATED GFR IS NOT fntf=0826) ACCURATE CREATININE CLEARANCE IN PREDICTING GLOMERULAR FILTRATION RATE. ESTIMATED GFR IS NOT APPLICABLE FOR DIALYSIS PATIENTS. [id number] 06:34:00 Test Item Value Reference Range Comments MAGNESIUM (BEAKER) (test hovf=164) 1.9 mg/dL 1.6-2.6 [id number] 06:13:00 Test Item Value Reference Range Comments PROTIME (BEAKER) (test tmjv=149) 16.7 seconds 11.7-14.7 INR (BEAKER) (test ttqv=249) 1.4 <=5.9 PARTIAL THROMBOPLASTIN TIME (BEAKER) (test 39.8 seconds 22.5-36.0 qcff=317) RECOMMENDED COUMADIN/WARFARIN INR THERAPY RANGESSTANDARD DOSE: 2.0 - 3.0 Includes: PROPHYLAXIS forvenous thrombosis, systemic embolization; TREATMENT for venous thrombosis and/or pulmonary embolus.HIGH RISK: Target INR is 2.5-3.5 for patients with mechanical heart valves.CBC W/PLT COUNT & AUTO [id number] 06:11:00 Test Item Value Reference Range Comments WHITE BLOOD CELL COUNT (BEAKER) (test uzpg=340) 3.2 K/ L 3.5-10.5 RED BLOOD CELL COUNT (BEAKER) (test bnyf=990) 2.51 M/ L 3.93-5.22 HEMOGLOBIN (BEAKER) (test fzkk=632) 8.0 GM/DL 11.2-15.7 HEMATOCRIT (BEAKER) (test mrql=431) 25.7 % 34.1-44.9 MEAN CORPUSCULAR VOLUME (BEAKER) (test zwym=370) 102.4 fL 79.4-94.8 MEAN CORPUSCULAR HEMOGLOBIN (BEAKER) (test 31.9 pg 25.6-32.2 xold=376) MEAN CORPUSCULAR HEMOGLOBIN CONC (BEAKER) (test 31.1 GM/DL 32.2-35.5 wzvk=043) RED CELL DISTRIBUTION WIDTH (BEAKER) (test 19.3 % 11.7-14.4 tahd=356) PLATELET COUNT (BEAKER) (test nbds=548) 49 K/CU MM 150-450 MEAN PLATELET VOLUME (BEAKER) (test ghca=651) 12.6 fL 9.4-12.3 NUCLEATED RED BLOOD CELLS (BEAKER) (test 0 /100 WBC 0-0 jdcp=398) NEUTROPHILS RELATIVE PERCENT (BEAKER) (test 82 % uzeu=848) LYMPHOCYTES RELATIVE PERCENT (BEAKER) (test 9 % oaen=263) MONOCYTES RELATIVE PERCENT (BEAKER) (test 9 % nbla=663) EOSINOPHILS RELATIVE PERCENT (BEAKER) (test 0 % cchv=454) BASOPHILS RELATIVE PERCENT (BEAKER) (test 0 % kwbr=293) NEUTROPHILS ABSOLUTE COUNT (BEAKER) (test 2.60 K/ L 1.56-6.13 ayhr=263) LYMPHOCYTES ABSOLUTE COUNT (BEAKER) (test 0.29 K/ L 1.18-3.74 dhoc=898) MONOCYTES ABSOLUTE COUNT (BEAKER) (test izav=384) 0.27 K/ L 0.24-0.36 EOSINOPHILS ABSOLUTE COUNT (BEAKER) (test 0.00 K/ L 0.04-0.36 udvc=184) BASOPHILS ABSOLUTE COUNT (BEAKER) (test ejwb=602) 0.01 K/ L 0.01-0.08 IMMATURE GRANULOCYTES-RELATIVE PERCENT (BEAKER) 0 % 0-1 (test uzbh=8230) BASIC METABOLIC [id number] 07:21:00 Test Item Value Reference Range Comments SODIUM (BEAKER) (test 135 meq/L 136-145 pegl=103) POTASSIUM (BEAKER) (test 4.1 meq/L 3.5-5.1 ltxd=731) CHLORIDE (BEAKER) (test 102 meq/L 98-107 nlzq=387) CO2 (BEAKER) (test 24 meq/L 22-29 osjw=496) BLOOD UREA NITROGEN 45 mg/dL 7-21 (BEAKER) (test gtwr=294) CREATININE (BEAKER) (test 4.55 mg/dL 0.57-1.25 eivn=537) GLUCOSE RANDOM (BEAKER) 106 mg/dL 70-105 (test zglv=544) CALCIUM (BEAKER) (test 7.8 mg/dL 8.4-10.2 woiq=253) EGFR (BEAKER) (test 10 mL/min/1.73 sq m ESTIMATED GFR IS NOT kfof=1006) ACCURATE CREATININE CLEARANCE IN PREDICTING GLOMERULAR FILTRATION RATE. ESTIMATED GFR IS NOT APPLICABLE FOR DIALYSIS PATIENTS. [id number] 07:08:00 Test Item Value Reference Range Comments MAGNESIUM (BEAKER) (test xpwp=649) 1.8 mg/dL 1.6-2.6 CBC W/PLT COUNT & AUTO [id number] 06:53:00 Test Item Value Reference Range Comments WHITE BLOOD CELL COUNT (BEAKER) (test sngf=624) 2.9 K/ L 3.5-10.5 RED BLOOD CELL COUNT (BEAKER) (test yizy=210) 2.45 M/ L 3.93-5.22 HEMOGLOBIN (BEAKER) (test jxhm=962) 8.0 GM/DL 11.2-15.7 HEMATOCRIT (BEAKER) (test prrq=784) 25.1 % 34.1-44.9 MEAN CORPUSCULAR VOLUME (BEAKER) (test gwyb=687) 102.4 fL 79.4-94.8 MEAN CORPUSCULAR HEMOGLOBIN (BEAKER) (test 32.7 pg 25.6-32.2 fryd=490) MEAN CORPUSCULAR HEMOGLOBIN CONC (BEAKER) (test 31.9 GM/DL 32.2-35.5 bdvf=319) RED CELL DISTRIBUTION WIDTH (BEAKER) (test 19.7 % 11.7-14.4 isbk=868) PLATELET COUNT (BEAKER) (test eook=279) 41 K/CU MM 150-450 MEAN PLATELET VOLUME (BEAKER) (test wftn=438) 11.7 fL 9.4-12.3 NUCLEATED RED BLOOD CELLS (BEAKER) (test 0 /100 WBC 0-0 bbkh=001) NEUTROPHILS RELATIVE PERCENT (BEAKER) (test 75 % zexg=923) LYMPHOCYTES RELATIVE PERCENT (BEAKER) (test 13 % aovk=445) MONOCYTES RELATIVE PERCENT (BEAKER) (test 11 % ofyk=462) EOSINOPHILS RELATIVE PERCENT (BEAKER) (test 0 % hyxz=152) BASOPHILS RELATIVE PERCENT (BEAKER) (test 0 % dvuu=267) NEUTROPHILS ABSOLUTE COUNT (BEAKER) (test 2.13 K/ L 1.56-6.13 gomx=012) LYMPHOCYTES ABSOLUTE COUNT (BEAKER) (test 0.38 K/ L 1.18-3.74 sjsx=773) MONOCYTES ABSOLUTE COUNT (BEAKER) (test jdgy=780) 0.32 K/ L 0.24-0.36 EOSINOPHILS ABSOLUTE COUNT (BEAKER) (test 0.01 K/ L 0.04-0.36 unkr=826) BASOPHILS ABSOLUTE COUNT (BEAKER) (test ohht=220) 0.01 K/ L 0.01-0.08 IMMATURE GRANULOCYTES-RELATIVE PERCENT (BEAKER) 0 % 0-1 (test vobi=6867) RAD, CHEST, 1 VIEW, NON [id number] 22:19:00Reason for exam:-> pneumoniaShould this be performed [...] MDReport Verified Date/Time: 03/28/2018 22:19:58 Reading Location: [address] Reading Room [id number] 05:56: 00 Test Item Value Reference Range Comments MAGNESIUM (BEAKER) (test fvpt=851) 1.9 mg/dL 1.6-2.6 COMPREHENSIVE METABOLIC [id number] 03:24:00 Test Item Value Reference Range Comments TOTAL PROTEIN (BEAKER) 5.9 gm/dL 6.0-8.3 (test xpio=769) ALBUMIN (BEAKER) (test 2.5 g/dL 3.5-5.0 sstb=1668) ALKALINE PHOSPHATASE 42 U/L 40-150 (BEAKER) (test blrw=843) BILIRUBIN TOTAL (BEAKER) 1.0 mg/dL 0.2-1.2 (test phff=309) SODIUM (BEAKER) (test 135 meq/L 136-145 avzj=061) POTASSIUM (BEAKER) (test 4.1 meq/L 3.5-5.1 nzyx=571) CHLORIDE (BEAKER) (test 102 meq/L 98-107 pmgm=770) CO2 (BEAKER) (test 26 meq/L 22-29 zcmn=093) BLOOD UREA NITROGEN 24 mg/dL 7-21 (BEAKER) (test ykct=582) CREATININE (BEAKER) (test 3.02 mg/dL 0.57-1.25 uato=274) GLUCOSE RANDOM (BEAKER) 121 mg/dL 70-105 (test pjad=989) CALCIUM (BEAKER) (test 8.2 mg/dL 8.4-10.2 yucf=476) AST (SGOT) (BEAKER) (test 35 U/L 5-34 sqpd=567) ALT (SGPT) (BEAKER) (test 13 U/L 6-55 ofjs=330) EGFR (BEAKER) (test 16 mL/min/1.73 sq m ESTIMATED GFR IS NOT vvoi=3873) ACCURATE CREATININE CLEARANCE IN PREDICTING GLOMERULAR FILTRATION RATE. ESTIMATED GFR IS NOT APPLICABLE FOR DIALYSIS PATIENTS. LACTIC ACID, VENOUS, WHOLE [id number] 03:15:00 Test Item Value Reference Range Comments LACTATE BLOOD VENOUS (2) (BEAKER) (test 1.1 mmol/L 0.5-2.2 ymqb=4209) Effective 11/28/2015: Units/Reference Range ChangeNew: 0.5-2.2 mmol/L Previous: 5 -20 mg/dLCBC W/PLT COUNT & AUTO [id number] 02:57:00 Test Item Value Reference Range Comments WHITE BLOOD CELL COUNT (BEAKER) (test vcnq=983) 2.7 K/ L 3.5-10.5 RED BLOOD CELL COUNT (BEAKER) (test exzd=448) 2.45 M/ L 3.93-5.22 HEMOGLOBIN (BEAKER) (test izmc=124) 8.0 GM/DL 11.2-15.7 HEMATOCRIT (BEAKER) (test iwub=153) 24.9 % 34.1-44.9 MEAN CORPUSCULAR VOLUME (BEAKER) (test gkti=233) 101.6 fL 79.4-94.8 MEAN CORPUSCULAR HEMOGLOBIN (BEAKER) (test 32.7 pg 25.6-32.2 cjer=683) MEAN CORPUSCULAR HEMOGLOBIN CONC (BEAKER) (test 32.1 GM/DL 32.2-35.5 wdhl=337) RED CELL DISTRIBUTION WIDTH (BEAKER) (test 20.7 % 11.7-14.4 txya=491) PLATELET COUNT (BEAKER) (test wddw=177) 44 K/CU MM 150-450 MEAN PLATELET VOLUME (BEAKER) (test lyxo=036) 11.9 fL 9.4-12.3 NUCLEATED RED BLOOD CELLS (BEAKER) (test 0 /100 WBC 0-0 tzty=904) NEUTROPHILS RELATIVE PERCENT (BEAKER) (test 75 % vngx=376) LYMPHOCYTES RELATIVE PERCENT (BEAKER) (test 12 % wcpg=448) MONOCYTES RELATIVE PERCENT (BEAKER) (test 12 % dhne=055) EOSINOPHILS RELATIVE PERCENT (BEAKER) (test 0 % nhyq=241) BASOPHILS RELATIVE PERCENT (BEAKER) (test 0 % gocb=635) NEUTROPHILS ABSOLUTE COUNT (BEAKER) (test 2.05 K/ L 1.56-6.13 jvxc=376) LYMPHOCYTES ABSOLUTE COUNT (BEAKER) (test 0.32 K/ L 1.18-3.74 llqe=678) MONOCYTES ABSOLUTE COUNT (BEAKER) (test bnwo=440) 0.34 K/ L 0.24-0.36 EOSINOPHILS ABSOLUTE COUNT (BEAKER) (test 0.01 K/ L 0.04-0.36 upox=083) BASOPHILS ABSOLUTE COUNT (BEAKER) (test oyue=348) 0.01 K/ L 0.01-0.08 IMMATURE GRANULOCYTES-RELATIVE PERCENT (BEAKER) 0 % 0-1 (test hnux=6284) POCT-GLUCOSE [id number] 02:55:00 Test Item Value Reference Range Comments POC-GLUCOSE METER (BEAKER) 148 mg/dL 70-110 TESTED AT [facility] [address] [facility] (test xexk=3970) [facility] [address] BASIC METABOLIC [id number] 06:29:00 Test Item Value Reference Range Comments SODIUM (BEAKER) (test 129 meq/L 136-145 cdju=884) POTASSIUM (BEAKER) (test 3.5 meq/L 3.5-5.1 pfoj=618) CHLORIDE (BEAKER) (test 97 meq/L 98-107 wcnb=984) CO2 (BEAKER) (test 25 meq/L 22-29 siaa=495) BLOOD UREA NITROGEN 44 mg/dL 7-21 (BEAKER) (test cacm=181) CREATININE (BEAKER) (test 4.23 mg/dL 0.57-1.25 eovm=007) GLUCOSE RANDOM (BEAKER) 118 mg/dL 70-105 (test grfc=775) CALCIUM (BEAKER) (test 7.0 mg/dL 8.4-10.2 huxw=836) EGFR (BEAKER) (test 11 mL/min/1.73 sq m ESTIMATED GFR IS NOT zejc=6792) ACCURATE CREATININE CLEARANCE IN PREDICTING GLOMERULAR FILTRATION RATE. ESTIMATED GFR IS NOT APPLICABLE FOR DIALYSIS PATIENTS. [id number] 06:27:00 Test Item Value Reference Range Comments MAGNESIUM (BEAKER) (test nwrf=645) 1.8 mg/dL 1.6-2.6 CBC W/PLT COUNT & AUTO [id number] 06:09:00 Test Item Value Reference Range Comments WHITE BLOOD CELL COUNT (BEAKER) (test lxxf=091) 3.1 K/ L 3.5-10.5 RED BLOOD CELL COUNT (BEAKER) (test ppbx=446) 1.93 M/ L 3.93-5.22 HEMOGLOBIN (BEAKER) (test rlat=836) 6.4 GM/DL 11.2-15.7 HEMATOCRIT (BEAKER) (test uvhs=894) 20.6 % 34.1-44.9 MEAN CORPUSCULAR VOLUME (BEAKER) (test ksru=630) 106.7 fL 79.4-94.8 MEAN CORPUSCULAR HEMOGLOBIN (BEAKER) (test 33.2 pg 25.6-32.2 kbum=200) MEAN CORPUSCULAR HEMOGLOBIN CONC (BEAKER) (test 31.1 GM/DL 32.2-35.5 inom=561) RED CELL DISTRIBUTION WIDTH (BEAKER) (test 20.5 % 11.7-14.4 fxzw=637) PLATELET COUNT (BEAKER) (test zxza=884) 48 K/CU MM 150-450 MEAN PLATELET VOLUME (BEAKER) (test owwk=300) 12.1 fL 9.4-12.3 NUCLEATED RED BLOOD CELLS (BEAKER) (test 0 /100 WBC 0-0 rdbl=829) NEUTROPHILS RELATIVE PERCENT (BEAKER) (test 77 % woli=970) LYMPHOCYTES RELATIVE PERCENT (BEAKER) (test 9 % vmxl=793) MONOCYTES RELATIVE PERCENT (BEAKER) (test 13 % pimu=247) EOSINOPHILS RELATIVE PERCENT (BEAKER) (test 0 % lqpw=310) BASOPHILS RELATIVE PERCENT (BEAKER) (test 0 % hljv=921) NEUTROPHILS ABSOLUTE COUNT (BEAKER) (test 2.42 K/ L 1.56-6.13 sibw=339) LYMPHOCYTES ABSOLUTE COUNT (BEAKER) (test 0.27 K/ L 1.18-3.74 gjpl=577) MONOCYTES ABSOLUTE COUNT (BEAKER) (test tdqi=941) 0.39 K/ L 0.24-0.36 EOSINOPHILS ABSOLUTE COUNT (BEAKER) (test 0.01 K/ L 0.04-0.36 phmb=072) BASOPHILS ABSOLUTE COUNT (BEAKER) (test pyjh=769) 0.01 K/ L 0.01-0.08 IMMATURE GRANULOCYTES-RELATIVE PERCENT (BEAKER) 1 % 0-1 (test rmwi=7267) RAD, SHOULDER, COMPLETE (MIN 2 VIEWS), [id number] 17:48:00Reason for exam:-& gt;r/o FxShould this be [...] Torres Verified Date/Time: 03/26/2018 17:48:06 Reading Location: [facility] Radiology Reading Room [facility] METABOLIC [id number] 07:10:00 Test Item Value Reference Range Comments SODIUM (BEAKER) (test 133 meq/L 136-145 bugp=261) POTASSIUM (BEAKER) (test 3.6 meq/L 3.5-5.1 lcwj=910) CHLORIDE (BEAKER) (test 101 meq/L 98-107 zgdy=673) CO2 (BEAKER) (test 24 meq/L 22-29 khuy=501) BLOOD UREA NITROGEN 26 mg/dL 7-21 (BEAKER) (test gniz=256) CREATININE (BEAKER) (test 2.73 mg/dL 0.57-1.25 kfjo=499) GLUCOSE RANDOM (BEAKER) 117 mg/dL 70-105 (test pmlh=337) CALCIUM (BEAKER) (test 7.5 mg/dL 8.4-10.2 sdjt=740) EGFR (BEAKER) (test 18 mL/min/1.73 sq m ESTIMATED GFR IS NOT ayjj=5655) ACCURATE CREATININE CLEARANCE IN PREDICTING GLOMERULAR FILTRATION RATE. ESTIMATED GFR IS NOT APPLICABLE FOR DIALYSIS PATIENTS. [id number] 07:08:00 Test Item Value Reference Range Comments MAGNESIUM (BEAKER) (test aenp=347) 1.9 mg/dL 1.6-2.6 CBC W/PLT COUNT & AUTO [id number] 06:34:00 Test Item Value Reference Range Comments WHITE BLOOD CELL COUNT (BEAKER) (test abnf=135) 3.1 K/ L 3.5-10.5 RED BLOOD CELL COUNT (BEAKER) (test ousn=408) 2.18 M/ L 3.93-5.22 HEMOGLOBIN (BEAKER) (test fhkj=796) 7.2 GM/DL 11.2-15.7 HEMATOCRIT (BEAKER) (test ngov=467) 23.1 % 34.1-44.9 MEAN CORPUSCULAR VOLUME (BEAKER) (test wzor=479) 106.0 fL 79.4-94.8 MEAN CORPUSCULAR HEMOGLOBIN (BEAKER) (test 33.0 pg 25.6-32.2 ntbs=805) MEAN CORPUSCULAR HEMOGLOBIN CONC (BEAKER) (test 31.2 GM/DL 32.2-35.5 usgl=379) RED CELL DISTRIBUTION WIDTH (BEAKER) (test 21.7 % 11.7-14.4 wlzz=250) PLATELET COUNT (BEAKER) (test phxz=205) 45 K/CU MM 150-450 MEAN PLATELET VOLUME (BEAKER) (test mmor=719) 11.8 fL 9.4-12.3 NUCLEATED RED BLOOD CELLS (BEAKER) (test 0 /100 WBC 0-0 xfte=399) NEUTROPHILS RELATIVE PERCENT (BEAKER) (test 83 % szkt=148) LYMPHOCYTES RELATIVE PERCENT (BEAKER) (test 7 % yypf=275) MONOCYTES RELATIVE PERCENT (BEAKER) (test 10 % mpco=583) EOSINOPHILS RELATIVE PERCENT (BEAKER) (test 0 % osup=230) BASOPHILS RELATIVE PERCENT (BEAKER) (test 0 % rfyb=115) NEUTROPHILS ABSOLUTE COUNT (BEAKER) (test 2.55 K/ L 1.56-6.13 ygsz=040) LYMPHOCYTES ABSOLUTE COUNT (BEAKER) (test 0.20 K/ L 1.18-3.74 opqd=660) MONOCYTES ABSOLUTE COUNT (BEAKER) (test gfwd=360) 0.31 K/ L 0.24-0.36 EOSINOPHILS ABSOLUTE COUNT (BEAKER) (test 0.00 K/ L 0.04-0.36 clwo=632) BASOPHILS ABSOLUTE COUNT (BEAKER) (test mabd=644) 0.01 K/ L 0.01-0.08 IMMATURE GRANULOCYTES-RELATIVE PERCENT (BEAKER) 1 % 0-1 (test phzk=7280) CT, [id number] 02:57:00R/o retroperitoneal hematoma s/p kidney bxFINAL REPORT [...] Islas Verified Date/Time: 03/26/2018 02:57:14 Reading Location: [address] Transitional Reading Room Electronically signed by: KELLEE ISLAS MD on 2017 02:57 AMLACTATE DEHYDROGENASE (LDH)2018-03-25 14:50:00 Test Item Value Reference Range Comments LACTATE DEHYDROGENASE (BEAKER) (test ifnf=403) 722 U/L 125-220 PERIPHERAL BLOOD SMEAR - HOLD [id number] 14:37:00 Test Item Value Reference Range Comments PERIPHERAL SMEAR SAVE (BEAKER) (test nnhm=1191) saved BASIC METABOLIC [id number] 07:08:00 Test Item Value Reference Range Comments SODIUM (BEAKER) (test 127 meq/L 136-145 boax=868) POTASSIUM (BEAKER) (test 4.3 meq/L 3.5-5.1 jqpg=948) CHLORIDE (BEAKER) (test 94 meq/L 98-107 rfau=536) CO2 (BEAKER) (test 23 meq/L 22-29 uanw=503) BLOOD UREA NITROGEN 56 mg/dL 7-21 (BEAKER) (test nahf=731) CREATININE (BEAKER) (test 4.30 mg/dL 0.57-1.25 bixq=430) GLUCOSE RANDOM (BEAKER) 110 mg/dL 70-105 (test nhmz=799) CALCIUM (BEAKER) (test 6.4 mg/dL 8.4-10.2 ksyz=583) EGFR (BEAKER) (test 11 mL/min/1.73 sq m ESTIMATED GFR IS NOT hxko=7059) ACCURATE CREATININE CLEARANCE IN PREDICTING GLOMERULAR FILTRATION RATE. ESTIMATED GFR IS NOT APPLICABLE FOR DIALYSIS PATIENTS. [id number] 07:04:00 Test Item Value Reference Range Comments MAGNESIUM (BEAKER) (test cmzn=899) 1.9 mg/dL 1.6-2.6 CBC W/PLT COUNT & AUTO [id number] 06:27:00 Test Item Value Reference Range Comments WHITE BLOOD CELL COUNT (BEAKER) (test pszx=512) 5.3 K/ L 3.5-10.5 RED BLOOD CELL COUNT (BEAKER) (test kebc=179) 2.39 M/ L 3.93-5.22 HEMOGLOBIN (BEAKER) (test wosq=583) 7.9 GM/DL 11.2-15.7 HEMATOCRIT (BEAKER) (test misp=042) 25.0 % 34.1-44.9 MEAN CORPUSCULAR VOLUME (BEAKER) (test eahx=221) 104.6 fL 79.4-94.8 MEAN CORPUSCULAR HEMOGLOBIN (BEAKER) (test 33.1 pg 25.6-32.2 ueea=370) MEAN CORPUSCULAR HEMOGLOBIN CONC (BEAKER) (test 31.6 GM/DL 32.2-35.5 rszi=476) RED CELL DISTRIBUTION WIDTH (BEAKER) (test 22.2 % 11.7-14.4 vnpf=425) PLATELET COUNT (BEAKER) (test wmso=350) 60 K/CU MM 150-450 MEAN PLATELET VOLUME (BEAKER) (test xzlr=431) 12.7 fL 9.4-12.3 NUCLEATED RED BLOOD CELLS (BEAKER) (test 0 /100 WBC 0-0 jall=104) NEUTROPHILS RELATIVE PERCENT (BEAKER) (test 85 % cyqz=399) LYMPHOCYTES RELATIVE PERCENT (BEAKER) (test 6 % iakc=594) MONOCYTES RELATIVE PERCENT (BEAKER) (test 9 % rnkp=045) EOSINOPHILS RELATIVE PERCENT (BEAKER) (test 0 % bpdw=619) BASOPHILS RELATIVE PERCENT (BEAKER) (test 0 % icmm=984) NEUTROPHILS ABSOLUTE COUNT (BEAKER) (test 4.50 K/ L 1.56-6.13 ubec=262) LYMPHOCYTES ABSOLUTE COUNT (BEAKER) (test 0.30 K/ L 1.18-3.74 upow=452) MONOCYTES ABSOLUTE COUNT (BEAKER) (test zptp=656) 0.46 K/ L 0.24-0.36 EOSINOPHILS ABSOLUTE COUNT (BEAKER) (test 0.01 K/ L 0.04-0.36 euvd=144) BASOPHILS ABSOLUTE COUNT (BEAKER) (test lvhb=241) 0.01 K/ L 0.01-0.08 IMMATURE GRANULOCYTES-RELATIVE PERCENT (BEAKER) 1 % 0-1 (test czjh=8694) HEPATITIS B [id number] 13:58:00 Test Item Value Reference Range Comments HEPATITIS B CORE TOTAL Nonreactive Nonreactive ANTIBODY (BEAKER) (test ejyz=302) HEPATITIS B SURFACE ANTIBODY 133.0 mIU/mL <8.0 Testing performed at [employer] (BEAKER) (test ypjy=079) Diagnostic Laboratory.See attach result for further interpretation. HEPATITIS B SURFACE ANTIGEN Nonreactive Nonreactive (2) (BEAKER) (test gjed=7588) U/S, BIOPSY, RENAL (KIDNEY)2018-03-24 12:59:00Reason for exam:->Acute [...] [place] Verified Date/Time: 03/24 12:59:37 Reading Location: [facility] [id number] Ultrasound Reading Room [place] [id number] 11:03:00[facility] Pathology Report Case: [id number] Authorizing Provider: Jordan Sultana MD Collected: 03/17/2018 1457 Ordering Location : [address] Med/Surg Received: 03/17/2018 1457 Pathologist: Doug Lee MD Specimens: A) - Iliac, Right B) - Iliac, Right C) -Iliac , Right This addendum is created to report the [employer] results for the Oncologic chromosomal study:There is [...] NORMOCYTIC ANEMIA-THROMBOCYTOPENIA Signing Pathologist Direct Phone Line: [phone] signed by Doug Lee MD on 03/23/2018 [...] be submitted as an addendum when available. 76640; 63101; 32543 x 2; 31622; [id number] x 1; 25464 e71Ntiaodh malignant neoplasm of breast with metastasis to [...] clusters. CD61: Highlights megakaryocytes which appear mildly [id number]: Demonstrates slightly more progenitor cells then CD34 [...] developed and its performance characteristics determined by [facility], Pathology Laboratory. It has not been cleared [...] 5.2, CD3, CD20, CD34, CD61, CD117, CD138, [place], Lambda , E-Cadherin.CBC W/PLT COUNT & AUTO [id number] 06:18:00 Test Item Value Reference Range Comments WHITE BLOOD CELL COUNT (BEAKER) (test ssbz=263) 5.0 K/ L 3.5-10.5 RED BLOOD CELL COUNT (BEAKER) (test dtum=562) 2.77 M/ L 3.93-5.22 HEMOGLOBIN (BEAKER) (test samh=855) 9.0 GM/DL 11.2-15.7 HEMATOCRIT (BEAKER) (test pdsq=668) 29.8 % 34.1-44.9 MEAN CORPUSCULAR VOLUME (BEAKER) (test qdim=184) 107.6 fL 79.4-94.8 MEAN CORPUSCULAR HEMOGLOBIN (BEAKER) (test 32.5 pg 25.6-32.2 gonu=408) MEAN CORPUSCULAR HEMOGLOBIN CONC (BEAKER) (test 30.2 GM/DL 32.2-35.5 tqty=844) RED CELL DISTRIBUTION WIDTH (BEAKER) (test 23.6 % 11.7-14.4 bjms=180) PLATELET COUNT (BEAKER) (test gujc=360) 61 K/CU MM 150-450 MEAN PLATELET VOLUME (BEAKER) (test kxcv=789) 11.2 fL 9.4-12.3 NUCLEATED RED BLOOD CELLS (BEAKER) (test 0 /100 WBC 0-0 snna=387) NEUTROPHILS RELATIVE PERCENT (BEAKER) (test 82 % dpew=271) LYMPHOCYTES RELATIVE PERCENT (BEAKER) (test 7 % mcjc=667) MONOCYTES RELATIVE PERCENT (BEAKER) (test 10 % nbkj=219) EOSINOPHILS RELATIVE PERCENT (BEAKER) (test 0 % cpua=267) BASOPHILS RELATIVE PERCENT (BEAKER) (test 0 % llqv=122) NEUTROPHILS ABSOLUTE COUNT (BEAKER) (test 4.14 K/ L 1.56-6.13 prun=117) LYMPHOCYTES ABSOLUTE COUNT (BEAKER) (test 0.35 K/ L 1.18-3.74 ulde=223) MONOCYTES ABSOLUTE COUNT (BEAKER) (test tsdf=056) 0.49 K/ L 0.24-0.36 EOSINOPHILS ABSOLUTE COUNT (BEAKER) (test 0.02 K/ L 0.04-0.36 hzzj=437) BASOPHILS ABSOLUTE COUNT (BEAKER) (test vnjy=243) 0.01 K/ L 0.01-0.08 IMMATURE GRANULOCYTES-RELATIVE PERCENT (BEAKER) 0 % 0-1 (test fbgu=0771) BASIC METABOLIC [id number] 05:46:00 Test Item Value Reference Range Comments SODIUM (BEAKER) (test 129 meq/L 136-145 ejkc=875) POTASSIUM (BEAKER) (test 3.9 meq/L 3.5-5.1 nbet=169) CHLORIDE (BEAKER) (test 98 meq/L 98-107 trri=569) CO2 (BEAKER) (test 22 meq/L 22-29 lowc=024) BLOOD UREA NITROGEN 42 mg/dL 7-21 (BEAKER) (test erot=705) CREATININE (BEAKER) (test 3.25 mg/dL 0.57-1.25 vyvu=096) GLUCOSE RANDOM (BEAKER) 101 mg/dL 70-105 (test kyia=068) CALCIUM (BEAKER) (test 7.0 mg/dL 8.4-10.2 mwlh=319) EGFR (BEAKER) (test 15 mL/min/1.73 sq m ESTIMATED GFR IS NOT vshw=0770) ACCURATE CREATININE CLEARANCE IN PREDICTING GLOMERULAR FILTRATION RATE. ESTIMATED GFR IS NOT APPLICABLE FOR DIALYSIS PATIENTS. [id number] 05:40:00 Test Item Value Reference Range Comments MAGNESIUM (BEAKER) (test 2.1 mg/dL 1.6-2.6 Specimen slightly hemolyzed raqm=447) BASIC METABOLIC [id number] 23:13:00 Test Item Value Reference Range Comments SODIUM (BEAKER) (test 133 meq/L 136-145 dand=155) POTASSIUM (BEAKER) (test 3.6 meq/L 3.5-5.1 ihqz=867) CHLORIDE (BEAKER) (test 98 meq/L 98-107 efqe=535) CO2 (BEAKER) (test 26 meq/L 22-29 waso=783) BLOOD UREA NITROGEN 42 mg/dL 7-21 (BEAKER) (test izwx=777) CREATININE (BEAKER) (test 3.20 mg/dL 0.57-1.25 gkgz=203) GLUCOSE RANDOM (BEAKER) 113 mg/dL 70-105 (test epml=131) CALCIUM (BEAKER) (test 6.9 mg/dL 8.4-10.2 iwfs=986) EGFR (BEAKER) (test 15 mL/min/1.73 sq m ESTIMATED GFR IS NOT myec=4681) ACCURATE CREATININE CLEARANCE IN PREDICTING GLOMERULAR FILTRATION RATE. ESTIMATED GFR IS NOT APPLICABLE FOR DIALYSIS PATIENTS. BASIC METABOLIC [id number] 18:45:00 Test Item Value Reference Range Comments SODIUM (BEAKER) (test 134 meq/L 136-145 tcrj=901) POTASSIUM (BEAKER) (test 3.8 meq/L 3.5-5.1 igys=031) CHLORIDE (BEAKER) (test 100 meq/L 98-107 tqxx=499) CO2 (BEAKER) (test 25 meq/L 22-29 pwdj=230) BLOOD UREA NITROGEN 37 mg/dL 7-21 (BEAKER) (test fcjx=487) CREATININE (BEAKER) (test 2.98 mg/dL 0.57-1.25 waiw=858) GLUCOSE RANDOM (BEAKER) 131 mg/dL 70-105 (test upru=683) CALCIUM (BEAKER) (test 7.3 mg/dL 8.4-10.2 gtko=224) EGFR (BEAKER) (test 16 mL/min/1.73 sq m ESTIMATED GFR IS NOT oets=1384) ACCURATE CREATININE CLEARANCE IN PREDICTING GLOMERULAR FILTRATION RATE. ESTIMATED GFR IS NOT APPLICABLE FOR DIALYSIS PATIENTS. POCT-GLUCOSE [id number] 10:29:00 Test Item Value Reference Range Comments POC-GLUCOSE METER (BEAKER) 93 mg/dL 70-110 TESTED AT [facility] [address] [place] [address] (test veis=8277) [facility] [address] BASIC METABOLIC [id number] 07:02:00 Test Item Value Reference Range Comments SODIUM (BEAKER) (test 133 meq/L 136-145 kcxg=168) POTASSIUM (BEAKER) (test 3.7 meq/L 3.5-5.1 cayb=875) CHLORIDE (BEAKER) (test 97 meq/L 98-107 irvl=099) CO2 (BEAKER) (test 25 meq/L 22-29 gcfo=492) BLOOD UREA NITROGEN 70 mg/dL 7-21 (BEAKER) (test smaf=747) CREATININE (BEAKER) (test 4.25 mg/dL 0.57-1.25 azrm=825) GLUCOSE RANDOM (BEAKER) 93 mg/dL 70-105 (test evst=468) CALCIUM (BEAKER) (test 7.2 mg/dL 8.4-10.2 hknn=852) EGFR (BEAKER) (test 11 mL/min/1.73 sq m ESTIMATED GFR IS NOT ekgz=2361) ACCURATE CREATININE CLEARANCE IN PREDICTING GLOMERULAR FILTRATION RATE. ESTIMATED GFR IS NOT APPLICABLE FOR DIALYSIS PATIENTS. [id number] 07:01:00 Test Item Value Reference Range Comments MAGNESIUM (BEAKER) (test ifmy=025) 2.2 mg/dL 1.6-2.6 CBC W/PLT COUNT & AUTO [id number] 06:36:00 Test Item Value Reference Range Comments WHITE BLOOD CELL COUNT (BEAKER) (test ogni=415) 6.2 K/ L 3.5-10.5 RED BLOOD CELL COUNT (BEAKER) (test pihq=593) 2.89 M/ L 3.93-5.22 HEMOGLOBIN (BEAKER) (test eqka=983) 9.5 GM/DL 11.2-15.7 HEMATOCRIT (BEAKER) (test phri=868) 31.1 % 34.1-44.9 MEAN CORPUSCULAR VOLUME (BEAKER) (test sfoc=860) 107.6 fL 79.4-94.8 MEAN CORPUSCULAR HEMOGLOBIN (BEAKER) (test 32.9 pg 25.6-32.2 jdzn=483) MEAN CORPUSCULAR HEMOGLOBIN CONC (BEAKER) (test 30.5 GM/DL 32.2-35.5 oixi=864) RED CELL DISTRIBUTION WIDTH (BEAKER) (test 24.9 % 11.7-14.4 wdes=993) PLATELET COUNT (BEAKER) (test ayor=031) 73 K/CU MM 150-450 MEAN PLATELET VOLUME (BEAKER) (test qmvc=014) 13.4 fL 9.4-12.3 NUCLEATED RED BLOOD CELLS (BEAKER) (test 0 /100 WBC 0-0 dioc=175) NEUTROPHILS RELATIVE PERCENT (BEAKER) (test 87 % lzdv=907) LYMPHOCYTES RELATIVE PERCENT (BEAKER) (test 5 % nvou=971) MONOCYTES RELATIVE PERCENT (BEAKER) (test 7 % djem=493) EOSINOPHILS RELATIVE PERCENT (BEAKER) (test 0 % rhbd=037) BASOPHILS RELATIVE PERCENT (BEAKER) (test 0 % biwr=043) NEUTROPHILS ABSOLUTE COUNT (BEAKER) (test 5.36 K/ L 1.56-6.13 wxhu=136) LYMPHOCYTES ABSOLUTE COUNT (BEAKER) (test 0.31 K/ L 1.18-3.74 kqyq=243) MONOCYTES ABSOLUTE COUNT (BEAKER) (test xjzm=770) 0.44 K/ L 0.24-0.36 EOSINOPHILS ABSOLUTE COUNT (BEAKER) (test 0.01 K/ L 0.04-0.36 wgrb=666) BASOPHILS ABSOLUTE COUNT (BEAKER) (test vpbe=019) 0.00 K/ L 0.01-0.08 IMMATURE GRANULOCYTES-RELATIVE PERCENT (BEAKER) 1 % 0-1 (test mfjv=9877) [id number] 06:35:00 Test Item Value Reference Range Comments PROTIME (BEAKER) (test jdaj=238) 15.3 seconds 11.7-14.7 INR (BEAKER) (test zeir=258) 1.2 <=5.9 PARTIAL THROMBOPLASTIN TIME (BEAKER) (test 29.7 seconds 22.5-36.0 jjtb=876) RECOMMENDED COUMADIN/WARFARIN INR THERAPY RANGESSTANDARD DOSE: 2.0 - 3.0 Includes: PROPHYLAXIS forvenous thrombosis, systemic embolization; TREATMENT for venous thrombosis and/or pulmonary embolus.HIGH RISK: Target INR is 2.5-3.5 for patients with mechanical heart valves.[id number] 23:55:00 Test Item Value Reference Range Comments PHOSPHORUS (BEAKER) (test awdw=928) 6.1 mg/dL 2.3-4.7 BASIC METABOLIC [id number] 23:55:00 Test Item Value Reference Range Comments SODIUM (BEAKER) (test 135 meq/L 136-145 hmbf=009) POTASSIUM (BEAKER) (test 3.6 meq/L 3.5-5.1 xrmj=741) CHLORIDE (BEAKER) (test 97 meq/L 98-107 xwas=265) CO2 (BEAKER) (test 26 meq/L 22-29 tmkf=475) BLOOD UREA NITROGEN 63 mg/dL 7-21 (BEAKER) (test jffd=548) CREATININE (BEAKER) (test 3.99 mg/dL 0.57-1.25 anhl=932) GLUCOSE RANDOM (BEAKER) 121 mg/dL 70-105 (test rbre=410) CALCIUM (BEAKER) (test 7.2 mg/dL 8.4-10.2 pxiz=066) EGFR (BEAKER) (test 12 mL/min/1.73 sq m ESTIMATED GFR IS NOT pyzm=6815) ACCURATE CREATININE CLEARANCE IN PREDICTING GLOMERULAR FILTRATION RATE. ESTIMATED GFR IS NOT APPLICABLE FOR DIALYSIS PATIENTS. BASIC METABOLIC [id number] 17:30:00 Test Item Value Reference Range Comments SODIUM (BEAKER) (test 137 meq/L 136-145 cpro=830) POTASSIUM (BEAKER) (test 3.7 meq/L 3.5-5.1 srve=350) CHLORIDE (BEAKER) (test 98 meq/L 98-107 exmp=855) CO2 (BEAKER) (test 27 meq/L 22-29 jnxt=826) BLOOD UREA NITROGEN 53 mg/dL 7-21 (BEAKER) (test pmzq=776) CREATININE (BEAKER) (test 3.30 mg/dL 0.57-1.25 qtee=388) GLUCOSE RANDOM (BEAKER) 105 mg/dL 70-105 (test zkvr=364) CALCIUM (BEAKER) (test 8.1 mg/dL 8.4-10.2 vqnq=618) EGFR (BEAKER) (test 15 mL/min/1.73 sq m ESTIMATED GFR IS NOT kvjn=1776) ACCURATE CREATININE CLEARANCE IN PREDICTING GLOMERULAR FILTRATION RATE. ESTIMATED GFR IS NOT APPLICABLE FOR DIALYSIS PATIENTS. HEPATIC FUNCTION [id number] 17:26:00 Test Item Value Reference Range Comments TOTAL PROTEIN (BEAKER) (test dbsl=846) 6.7 gm/dL 6.0-8.3 ALBUMIN (BEAKER) (test kxib=0284) 3.1 g/dL 3.5-5.0 BILIRUBIN TOTAL (BEAKER) (test kvxv=336) 1.6 mg/dL 0.2-1.2 BILIRUBIN DIRECT (BEAKER) (test eprq=477) 0.7 mg/dL 0.1-0.5 ALKALINE PHOSPHATASE (BEAKER) (test ajiu=489) 63 U/L 40-150 AST (SGOT) (BEAKER) (test vpyq=630) 48 U/L 5-34 ALT (SGPT) (BEAKER) (test nqdn=206) 24 U/L 6-55 BASIC METABOLIC [id number] 15:15:00 Test Item Value Reference Range Comments SODIUM (BEAKER) (test 134 meq/L 136-145 txfq=027) POTASSIUM (BEAKER) (test 4.1 meq/L 3.5-5.1 kmbo=538) CHLORIDE (BEAKER) (test 94 meq/L 98-107 kysx=267) CO2 (BEAKER) (test 23 meq/L 22-29 zejq=078) BLOOD UREA NITROGEN 112 mg/dL 7-21 (BEAKER) (test kddz=635) CREATININE (BEAKER) (test 5.93 mg/dL 0.57-1.25 fxwm=487) GLUCOSE RANDOM (BEAKER) 104 mg/dL 70-105 (test ttyz=028) CALCIUM (BEAKER) (test 7.2 mg/dL 8.4-10.2 umcu=080) EGFR (BEAKER) (test 7 mL/min/1.73 sq m ESTIMATED GFR IS NOT datl=0975) ACCURATE CREATININE CLEARANCE IN PREDICTING GLOMERULAR FILTRATION RATE. ESTIMATED GFR IS NOT APPLICABLE FOR DIALYSIS PATIENTS. URINE IMMUNOFIXATION, [id number] 15:09:00 Test Item Value Reference Range Comments PROTEIN, URINE (BEAKER) (test 412 mg/dL 0-14 ojhp=4691) ALBUMIN URINE ELP (BEAKER) 56.3 % (test thjq=0552) GAMMA GLOBULIN URINE (BEAKER) 43.7 % (test qobx=2093) URINE JUDSON ID-[id number] (BEAKER) No monoclonal proteins or (test lapl=6636) monoclonal free light chains detected. [id number] (BEAKER) Barbie Mccollum MD (test qjaz=7439) (electronic signature) URINE PROTEIN ELECTROPHORESIS, [id number] 13:02:00 Test Item Value Reference Range Comments PROTEIN, URINE (BEAKER) (test 412 mg/dL 0-14 ubtg=9524) ALBUMIN URINE ELP (BEAKER) 56.3 % (test emnb=8759) GAMMA GLOBULIN URINE (BEAKER) 43.7 % (test ufms=5508) UPEP, ID-438 (BEAKER) (test No monoclonal bands detected. nrng=1813) [id number] (BEAKER) Barbie Mccollum MD (test sotv=4125) (electronic signature) [id number] 08:19:00 Test Item Value Reference Range Comments HAPTOGLOBIN (BEAKER) (test qzgs=299) < mg/dL 14-258 BASIC METABOLIC [id number] 07:44:00 Test Item Value Reference Range Comments SODIUM (BEAKER) (test 133 meq/L 136-145 fkjq=191) POTASSIUM (BEAKER) (test 4.4 meq/L 3.5-5.1 iuua=297) CHLORIDE (BEAKER) (test 95 meq/L 98-107 jqfv=902) CO2 (BEAKER) (test 23 meq/L 22-29 ykoq=064) BLOOD UREA NITROGEN 108 mg/dL 7-21 (BEAKER) (test gtxe=619) CREATININE (BEAKER) (test 5.79 mg/dL 0.57-1.25 xajn=669) GLUCOSE RANDOM (BEAKER) 107 mg/dL 70-105 (test uogp=146) CALCIUM (BEAKER) (test 7.4 mg/dL 8.4-10.2 qcjt=691) EGFR (BEAKER) (test 8 mL/min/1.73 sq m ESTIMATED GFR IS NOT uhzp=4550) ACCURATE CREATININE CLEARANCE IN PREDICTING GLOMERULAR FILTRATION RATE. ESTIMATED GFR IS NOT APPLICABLE FOR DIALYSIS PATIENTS. [id number] 07:29:00 Test Item Value Reference Range Comments MAGNESIUM (BEAKER) (test ulpu=263) 2.6 mg/dL 1.6-2.6 LACTATE DEHYDROGENASE (LDH)2018-03-22 07:29:00 Test Item Value Reference Range Comments LACTATE DEHYDROGENASE (BEAKER) (test oiqp=405) 812 U/L 125-220 CBC W/PLT COUNT & AUTO [id number] 07:15:00 Test Item Value Reference Range Comments WHITE BLOOD CELL COUNT (BEAKER) (test hpdp=996) 5.5 K/ L 3.5-10.5 RED BLOOD CELL COUNT (BEAKER) (test buxv=213) 2.90 M/ L 3.93-5.22 HEMOGLOBIN (BEAKER) (test ofdx=793) 9.5 GM/DL 11.2-15.7 HEMATOCRIT (BEAKER) (test kjzy=104) 30.7 % 34.1-44.9 MEAN CORPUSCULAR VOLUME (BEAKER) (test iknv=724) 105.9 fL 79.4-94.8 MEAN CORPUSCULAR HEMOGLOBIN (BEAKER) (test 32.8 pg 25.6-32.2 bqoh=422) MEAN CORPUSCULAR HEMOGLOBIN CONC (BEAKER) (test 30.9 GM/DL 32.2-35.5 utxb=983) RED CELL DISTRIBUTION WIDTH (BEAKER) (test 24.7 % 11.7-14.4 vpcj=777) PLATELET COUNT (BEAKER) (test mydk=717) 56 K/CU MM 150-450 MEAN PLATELET VOLUME (BEAKER) (test ufph=407) 11.6 fL 9.4-12.3 NUCLEATED RED BLOOD CELLS (BEAKER) (test 0 /100 WBC 0-0 qlar=231) NEUTROPHILS RELATIVE PERCENT (BEAKER) (test 83 % fghl=742) LYMPHOCYTES RELATIVE PERCENT (BEAKER) (test 9 % hskb=235) MONOCYTES RELATIVE PERCENT (BEAKER) (test 7 % hydq=464) EOSINOPHILS RELATIVE PERCENT (BEAKER) (test 0 % vwcw=438) BASOPHILS RELATIVE PERCENT (BEAKER) (test 0 % lqsz=543) NEUTROPHILS ABSOLUTE COUNT (BEAKER) (test 4.58 K/ L 1.56-6.13 pjmi=677) LYMPHOCYTES ABSOLUTE COUNT (BEAKER) (test 0.49 K/ L 1.18-3.74 pinm=751) MONOCYTES ABSOLUTE COUNT (BEAKER) (test zufw=447) 0.39 K/ L 0.24-0.36 EOSINOPHILS ABSOLUTE COUNT (BEAKER) (test 0.00 K/ L 0.04-0.36 koex=254) BASOPHILS ABSOLUTE COUNT (BEAKER) (test btfh=479) 0.01 K/ L 0.01-0.08 IMMATURE GRANULOCYTES-RELATIVE PERCENT (BEAKER) 1 % 0-1 (test ldzy=9459) RETICULOCYTE [id number] 07:08:00 Test Item Value Reference Range Comments RETICULOCYTE COUNT PCT (BEAKER) (test qtnp=751) 13.4 % 0.5-1.7 [id number] 07:07:00 Test Item Value Reference Range Comments PROTIME (BEAKER) (test qauy=494) 16.2 seconds 11.7-14.7 INR (BEAKER) (test pgbd=894) 1.3 <=5.9 PARTIAL THROMBOPLASTIN TIME (BEAKER) (test 31.2 seconds 22.5-36.0 blif=995) RECOMMENDED COUMADIN/WARFARIN INR THERAPY RANGESSTANDARD DOSE: 2.0 - 3.0 Includes: PROPHYLAXIS forvenous thrombosis, systemic embolization; TREATMENT for venous thrombosis and/or pulmonary embolus.HIGH RISK: Target INR is 2.5-3.5 for patients with mechanical heart valves.PROTHROMBIN [id number] 07:06: 00 Test Item Value Reference Range Comments PROTIME (BEAKER) (test yiam=987) 16.2 seconds 11.7-14.7 INR (BEAKER) (test wvep=372) 1.3 <=5.9 RECOMMENDED COUMADIN/WARFARIN INR THERAPY RANGESSTANDARD DOSE: 2.0 - 3.0 Includes: PROPHYLAXIS forvenous thrombosis, systemic embolization; TREATMENT for venous thrombosis and/or pulmonary embolus.HIGH RISK: Target INR is 2.5-3.5 for patients with mechanical heart valves.BASIC METABOLIC [id number] 22:18: 00 Test Item Value Reference Range Comments SODIUM (BEAKER) (test 132 meq/L 136-145 gnqo=418) POTASSIUM (BEAKER) (test 4.7 meq/L 3.5-5.1 djpe=268) CHLORIDE (BEAKER) (test 95 meq/L 98-107 daqn=388) CO2 (BEAKER) (test 22 meq/L 22-29 udqb=918) BLOOD UREA NITROGEN 99 mg/dL 7-21 (BEAKER) (test snbx=390) CREATININE (BEAKER) (test 5.57 mg/dL 0.57-1.25 fvue=694) GLUCOSE RANDOM (BEAKER) 139 mg/dL 70-105 (test qpoc=384) CALCIUM (BEAKER) (test 7.3 mg/dL 8.4-10.2 jnpu=868) EGFR (BEAKER) (test 8 mL/min/1.73 sq m ESTIMATED GFR IS NOT tglh=7705) ACCURATE CREATININE CLEARANCE IN PREDICTING GLOMERULAR FILTRATION RATE. ESTIMATED GFR IS NOT APPLICABLE FOR DIALYSIS PATIENTS. RAD, CHEST, 1 VIEW, NON [id number] 18:54:00Reason for exam:->cough, chest congestionShould this be [...] MDReport Verified Date/Time: 03/21/2018 18:54:34 Reading Location: [facility] C013Y CT Body Reading Room BASIC METABOLIC [id number] 16:55:00 Test Item Value Reference Range Comments SODIUM (BEAKER) (test 135 meq/L 136-145 sqtt=601) POTASSIUM (BEAKER) (test 5.1 meq/L 3.5-5.1 loyc=425) CHLORIDE (BEAKER) (test 97 meq/L 98-107 xpvg=730) CO2 (BEAKER) (test 20 meq/L 22-29 opcc=479) BLOOD UREA NITROGEN 100 mg/dL 7-21 (BEAKER) (test jnsp=899) CREATININE (BEAKER) (test 5.45 mg/dL 0.57-1.25 qzkp=438) GLUCOSE RANDOM (BEAKER) 133 mg/dL 70-105 (test jfjm=340) CALCIUM (BEAKER) (test 7.7 mg/dL 8.4-10.2 oaie=400) EGFR (BEAKER) (test 8 mL/min/1.73 sq m ESTIMATED GFR IS NOT dgbh=2464) ACCURATE CREATININE CLEARANCE IN PREDICTING GLOMERULAR FILTRATION RATE. ESTIMATED GFR IS NOT APPLICABLE FOR DIALYSIS PATIENTS. BLOOD [id number] 13:00:00 Test Item Value Reference Range Comments CULTURE (BEAKER) (test fmdm=9305) No growth in 5 days BASIC METABOLIC [id number] 12:42:00 Test Item Value Reference Range Comments SODIUM (BEAKER) (test 134 meq/L 136-145 bqam=212) POTASSIUM (BEAKER) (test 4.7 meq/L 3.5-5.1 chvu=411) CHLORIDE (BEAKER) (test 95 meq/L 98-107 lsmk=474) CO2 (BEAKER) (test 21 meq/L 22-29 tims=551) BLOOD UREA NITROGEN 97 mg/dL 7-21 (BEAKER) (test yigw=053) CREATININE (BEAKER) (test 5.18 mg/dL 0.57-1.25 zchk=795) GLUCOSE RANDOM (BEAKER) 121 mg/dL 70-105 (test tcyk=800) CALCIUM (BEAKER) (test 7.9 mg/dL 8.4-10.2 fplk=207) EGFR (BEAKER) (test 9 mL/min/1.73 sq m ESTIMATED GFR IS NOT rgrg=6459) ACCURATE CREATININE CLEARANCE IN PREDICTING GLOMERULAR FILTRATION RATE. ESTIMATED GFR IS NOT APPLICABLE FOR DIALYSIS PATIENTS. BASIC METABOLIC [id number] 06:21:00 Test Item Value Reference Range Comments SODIUM (BEAKER) (test 133 meq/L 136-145 sice=552) POTASSIUM (BEAKER) (test 4.6 meq/L 3.5-5.1 ewzk=442) CHLORIDE (BEAKER) (test 97 meq/L 98-107 inkk=999) CO2 (BEAKER) (test 18 meq/L 22-29 uwda=701) BLOOD UREA NITROGEN 89 mg/dL 7-21 (BEAKER) (test nrzi=727) CREATININE (BEAKER) (test 4.86 mg/dL 0.57-1.25 ckmf=068) GLUCOSE RANDOM (BEAKER) 117 mg/dL 70-105 (test rrkf=320) CALCIUM (BEAKER) (test 7.9 mg/dL 8.4-10.2 grii=606) EGFR (BEAKER) (test 9 mL/min/1.73 sq m ESTIMATED GFR IS NOT qmwl=9409) ACCURATE CREATININE CLEARANCE IN PREDICTING GLOMERULAR FILTRATION RATE. ESTIMATED GFR IS NOT APPLICABLE FOR DIALYSIS PATIENTS. [id number] 05:54:00 Test Item Value Reference Range Comments MAGNESIUM (BEAKER) (test snbd=198) 2.4 mg/dL 1.6-2.6 CBC (HEMOGRAM ONLY)2018-03-21 05:23:00 Test Item Value Reference Range Comments WHITE BLOOD CELL COUNT (BEAKER) (test keoa=367) 7.6 K/ L 3.5-10.5 RED BLOOD CELL COUNT (BEAKER) (test owtr=801) 3.13 M/ L 3.93-5.22 HEMOGLOBIN (BEAKER) (test ougl=771) 10.1 GM/DL 11.2-15.7 HEMATOCRIT (BEAKER) (test ebwy=045) 32.1 % 34.1-44.9 MEAN CORPUSCULAR VOLUME (BEAKER) (test tzma=210) 102.6 fL 79.4-94.8 MEAN CORPUSCULAR HEMOGLOBIN (BEAKER) (test 32.3 pg 25.6-32.2 wvap=653) MEAN CORPUSCULAR HEMOGLOBIN CONC (BEAKER) (test 31.5 GM/DL 32.2-35.5 vjht=330) RED CELL DISTRIBUTION WIDTH (BEAKER) (test 24.0 % 11.7-14.4 loix=313) PLATELET COUNT (BEAKER) (test xbhm=598) 68 K/CU MM 150-450 MEAN PLATELET VOLUME (BEAKER) (test xnru=269) 14.4 fL 9.4-12.3 NUCLEATED RED BLOOD CELLS (BEAKER) (test 1 /100 WBC 0-0 cpar=288) BASIC METABOLIC [id number] 00:47:00 Test Item Value Reference Range Comments SODIUM (BEAKER) (test 134 meq/L 136-145 brwf=323) POTASSIUM (BEAKER) (test 4.7 meq/L 3.5-5.1 blfx=588) CHLORIDE (BEAKER) (test 97 meq/L 98-107 lhyr=701) CO2 (BEAKER) (test 22 meq/L 22-29 tqdy=187) BLOOD UREA NITROGEN 86 mg/dL 7-21 (BEAKER) (test kmsg=717) CREATININE (BEAKER) (test 4.81 mg/dL 0.57-1.25 zqai=014) GLUCOSE RANDOM (BEAKER) 115 mg/dL 70-105 (test nehh=153) CALCIUM (BEAKER) (test 7.9 mg/dL 8.4-10.2 lctk=606) EGFR (BEAKER) (test 9 mL/min/1.73 sq m ESTIMATED GFR IS NOT qaqh=8405) ACCURATE CREATININE CLEARANCE IN PREDICTING GLOMERULAR FILTRATION RATE. ESTIMATED GFR IS NOT APPLICABLE FOR DIALYSIS PATIENTS. HEPATITIS C [id number] 13:26:00 Test Item Value Reference Range Comments HEPATITIS C ANTIBODY (BEAKER) (test xepz=279) Nonreactive Nonreactive BASIC METABOLIC [id number] 13:08:00 Test Item Value Reference Range Comments SODIUM (BEAKER) (test 133 meq/L 136-145 pnha=322) POTASSIUM (BEAKER) (test 5.0 meq/L 3.5-5.1 xrxp=242) CHLORIDE (BEAKER) (test 92 meq/L 98-107 tjdy=331) CO2 (BEAKER) (test 21 meq/L 22-29 bahm=408) BLOOD UREA NITROGEN 123 mg/dL 7-21 (BEAKER) (test eugz=710) CREATININE (BEAKER) (test 5.93 mg/dL 0.57-1.25 pvyc=836) GLUCOSE RANDOM (BEAKER) 108 mg/dL 70-105 (test cpmc=217) CALCIUM (BEAKER) (test 8.1 mg/dL 8.4-10.2 kvbk=804) EGFR (BEAKER) (test 7 mL/min/1.73 sq m ESTIMATED GFR IS NOT aino=9998) ACCURATE CREATININE CLEARANCE IN PREDICTING GLOMERULAR FILTRATION RATE. ESTIMATED GFR IS NOT APPLICABLE FOR DIALYSIS PATIENTS. T4, [id number] 09:25:00 Test Item Value Reference Range Comments FREE T4 (BEAKER) (test eyat=168) 0.67 ng/dL 0.70-1.48 TSH/FREE T4 IF [id number] 09:04:00 Test Item Value Reference Range Comments THYROID STIMULATING HORMONE (BEAKER) (test 7.12 uIU/mL 0.35-4.94 fxlc=636) BASIC METABOLIC [id number] 07:17:00 Test Item Value Reference Range Comments SODIUM (BEAKER) (test 132 meq/L 136-145 yqrh=151) POTASSIUM (BEAKER) (test 4.6 meq/L 3.5-5.1 rerh=821) CHLORIDE (BEAKER) (test 92 meq/L 98-107 mrib=846) CO2 (BEAKER) (test 22 meq/L 22-29 cyug=417) BLOOD UREA NITROGEN 119 mg/dL 7-21 (BEAKER) (test rlws=022) CREATININE (BEAKER) (test 5.68 mg/dL 0.57-1.25 dnog=938) GLUCOSE RANDOM (BEAKER) 108 mg/dL 70-105 (test mxix=139) CALCIUM (BEAKER) (test 8.0 mg/dL 8.4-10.2 zrmi=104) EGFR (BEAKER) (test 8 mL/min/1.73 sq m ESTIMATED GFR IS NOT lxuy=0161) ACCURATE CREATININE CLEARANCE IN PREDICTING GLOMERULAR FILTRATION RATE. ESTIMATED GFR IS NOT APPLICABLE FOR DIALYSIS PATIENTS. CBC (HEMOGRAM ONLY)2018-03-20 06:25:00 Test Item Value Reference Range Comments WHITE BLOOD CELL COUNT (BEAKER) (test tthc=599) 7.0 K/ L 3.5-10.5 RED BLOOD CELL COUNT (BEAKER) (test fldw=620) 2.95 M/ L 3.93-5.22 HEMOGLOBIN (BEAKER) (test mwox=742) 9.5 GM/DL 11.2-15.7 HEMATOCRIT (BEAKER) (test ecgb=936) 29.3 % 34.1-44.9 MEAN CORPUSCULAR VOLUME (BEAKER) (test jdod=582) 99.3 fL 79.4-94.8 MEAN CORPUSCULAR HEMOGLOBIN (BEAKER) (test 32.2 pg 25.6-32.2 uzzi=343) MEAN CORPUSCULAR HEMOGLOBIN CONC (BEAKER) (test 32.4 GM/DL 32.2-35.5 njvo=749) RED CELL DISTRIBUTION WIDTH (BEAKER) (test 22.7 % 11.7-14.4 ccpu=830) PLATELET COUNT (BEAKER) (test yxck=400) 53 K/CU MM 150-450 NUCLEATED RED BLOOD CELLS (BEAKER) (test 1 /100 WBC 0-0 neyg=183) BASIC METABOLIC [id number] 03:08:00 Test Item Value Reference Range Comments SODIUM (BEAKER) (test 130 meq/L 136-145 xvue=204) POTASSIUM (BEAKER) (test 4.9 meq/L 3.5-5.1 eymo=003) CHLORIDE (BEAKER) (test 92 meq/L 98-107 nhql=141) CO2 (BEAKER) (test 21 meq/L 22-29 luyl=114) BLOOD UREA NITROGEN 117 mg/dL 7-21 (BEAKER) (test ogbm=933) CREATININE (BEAKER) (test 5.66 mg/dL 0.57-1.25 ehcw=765) GLUCOSE RANDOM (BEAKER) 124 mg/dL 70-105 (test mxyn=755) CALCIUM (BEAKER) (test 7.9 mg/dL 8.4-10.2 ektv=270) EGFR (BEAKER) (test 8 mL/min/1.73 sq m ESTIMATED GFR IS NOT rkfy=6060) ACCURATE CREATININE CLEARANCE IN PREDICTING GLOMERULAR FILTRATION RATE. ESTIMATED GFR IS NOT APPLICABLE FOR DIALYSIS PATIENTS. BASIC METABOLIC [id number] 20:16:00 Test Item Value Reference Range Comments SODIUM (BEAKER) (test 131 meq/L 136-145 btsn=290) POTASSIUM (BEAKER) (test 5.0 meq/L 3.5-5.1 regy=053) CHLORIDE (BEAKER) (test 92 meq/L 98-107 icjp=950) CO2 (BEAKER) (test 22 meq/L 22-29 oxsw=711) BLOOD UREA NITROGEN 113 mg/dL 7-21 (BEAKER) (test tlee=529) CREATININE (BEAKER) (test 5.58 mg/dL 0.57-1.25 pauj=331) GLUCOSE RANDOM (BEAKER) 112 mg/dL 70-105 (test fzzp=422) CALCIUM (BEAKER) (test 8.1 mg/dL 8.4-10.2 svdm=367) EGFR (BEAKER) (test 8 mL/min/1.73 sq m ESTIMATED GFR IS NOT kwtn=2782) ACCURATE CREATININE CLEARANCE IN PREDICTING GLOMERULAR FILTRATION RATE. ESTIMATED GFR IS NOT APPLICABLE FOR DIALYSIS PATIENTS. PROTEIN ELECTROPHORESIS, [id number] 17:31:00 Test Item Value Reference Range Comments ALBUMIN FRACTION (BEAKER) 2.7 g/dL 3.5-5.5 (test jxsh=303) ALPHA 1 FRACTION (BEAKER) 0.4 g/dL 0.2-0.4 (test xcvj=388) ALPHA 2 FRACTION (BEAKER) 0.5 g/dL 0.5-0.9 (test lszz=628) BETA FRACTION (BEAKER) (test 0.8 g/dL 0.6-1.1 depr=885) GAMMA GLOBULIN FRACTION 2.2 g/dL 0.7-1.7 (BEAKER) (test xdzx=859) INTERPRETATION-119 (BEAKER) Polyclonal elevation of gamma (test nuan=6935) fraction, suggestive of chronic inflammatory response. Serum UJDSON pending to evaluate for presence of small underlying monoclonal protein in this region. [id number] Barbie Mccollum MD (BEAKER) (test pfmj=1509) (electronic signature) PROTEIN TOTAL SERUM, SPEP 6.7 gm/dL 6.0-8.3 (BEAKER) (test sfgv=6591) IMMUNOFIXATION ELECTROPHORESIS (JUDSON)2018-03-19 17:31:00 Test Item Value Reference Range Comments IMMUNOGLOBULIN G (IGG) (BEAKER) 2008 mg/dL 540-1822 (test sahc=219) IMMUNOGLOBULIN A (IGA) (BEAKER) 37 mg/dL 63-484 (test angx=698) IMMUNOGLOBULIN M (IGM) (BEAKER) 673 mg/dL 22-293 (test nrlv=426) SERUM JUDSON ID (BEAKER) (test No monoclonal proteins lerp=5991) detected. Polyclonal elevation of gamma globulins. [id number] ([facility]) Barbie Mccollum MD (test pquo=9752) (electronic signature) ANTI-NUCLEAR ANTIBODY (SARAH)2018-03-19 10:18:00 Test Item Value Reference Range Comments ANTI-NUCLEAR ANTIBODY (SARAH) (BEAKER) (test Positive Negative bqfr=463) Test performed by IFA method.SARAH TITER AND [id number] 10:18:00 Test Item Value Reference Range Comments SARAH TITER (BEAKER) (test xeql=3126) >=:2560 SARAH PATTERN (BEAKER) (test imaf=2618) Speckled FLOW [id number] 09:17:00Flow Cytometry Report Case: [id number] Authorizing Provider: Jordan Sultana MD Collected: 03/17/2018 1500 Ordering Location: [address] Med/Surg Received: 03/17/2018 0278 Pathologist: Doug Lee MD Specimen: Other BONE [...] findings in the bone marrow biopsy report([id number]) .[id number] wf with h/o right breast ca s/p surgery and chemo xrt in 2013 found to have recurrence with extensive metastases, started on carboplatin and gemcitabine in October 2017, transferred from [facility] for management of MAHA with REJI.BONE MARROW ASPIRATECD8, surface-[place], CD56, surface-Lambda, CD5 , CD19, CD10, CD3, CD20, CD4, CD45, CD14, CD13, CD33, CD117, CD34, cKappa, cLambda, CD38, OT821Cnrdgxrb Viability: 92.4% Number of Events Acquired: [id number] The following populations are identified: Blasts: the [...] developed and their performance characteristics determined by [facility] They have not been cleared or approved by the U.S. Food and Drug Administration. The FDA has determined that such clearance or approval is not necessary. It should not be regarded as investigational or for research. This laboratory is certified under the Clinical Laboratory Improvement Amendments vj4157 ("CLIA") as qualified to perform high-complexity clinical testing.FLOW CYTOMETRY [id number] 09:16:00 Test Item Value Reference Range Comments FLOW CYTOMETRY RESULT POINTER (BEAKER) See Separate Report (test wfnz=5200) FLOW CYTOMETRY AP CASE # (BEAKER) (test [id number] dxhj=5092) BASIC METABOLIC [id number] 06:55:00 Test Item Value Reference Range Comments SODIUM (BEAKER) (test 131 meq/L 136-145 mpnn=978) POTASSIUM (BEAKER) (test 4.8 meq/L 3.5-5.1 tfth=379) CHLORIDE (BEAKER) (test 93 meq/L 98-107 yuij=960) CO2 (BEAKER) (test 20 meq/L 22-29 masv=912) BLOOD UREA NITROGEN 99 mg/dL 7-21 (BEAKER) (test lxze=068) CREATININE (BEAKER) (test 4.97 mg/dL 0.57-1.25 msmj=703) GLUCOSE RANDOM (BEAKER) 100 mg/dL 70-105 (test lfzn=597) CALCIUM (BEAKER) (test 8.3 mg/dL 8.4-10.2 qsxp=117) EGFR (BEAKER) (test 9 mL/min/1.73 sq m ESTIMATED GFR IS NOT amjl=7655) ACCURATE CREATININE CLEARANCE IN PREDICTING GLOMERULAR FILTRATION RATE. ESTIMATED GFR IS NOT APPLICABLE FOR DIALYSIS PATIENTS. [id number] 06:54:00 Test Item Value Reference Range Comments PHOSPHORUS (BEAKER) (test atld=480) 7.0 mg/dL 2.3-4.7 PTH, [id number] 06:42:00 Test Item Value Reference Range Comments PARATHYROID HORMONE INTACT (BEAKER) (test 690.0 pg/mL 8.5-72.5 mtju=773) VANCOMYCIN LEVEL, [id number] 06:33:00 Test Item Value Reference Range Comments VANCOMYCIN RANDOM (BEAKER) (test gpcj=162) 14.4 ug/mL Reference Range: No NormalsCBC (HEMOGRAM ONLY)2018-03-19 06:14:00 Test Item Value Reference Range Comments WHITE BLOOD CELL COUNT (BEAKER) (test ztgb=032) 5.6 K/ L 3.5-10.5 RED BLOOD CELL COUNT (BEAKER) (test jgdb=607) 2.35 M/ L 3.93-5.22 HEMOGLOBIN (BEAKER) (test hbnl=281) 7.6 GM/DL 11.2-15.7 HEMATOCRIT (BEAKER) (test pzkw=548) 23.7 % 34.1-44.9 MEAN CORPUSCULAR VOLUME (BEAKER) (test ilyq=233) 100.9 fL 79.4-94.8 MEAN CORPUSCULAR HEMOGLOBIN (BEAKER) (test 32.3 pg 25.6-32.2 afii=962) MEAN CORPUSCULAR HEMOGLOBIN CONC (BEAKER) (test 32.1 GM/DL 32.2-35.5 rvcm=819) RED CELL DISTRIBUTION WIDTH (BEAKER) (test 23.4 % 11.7-14.4 wrcx=567) PLATELET COUNT (BEAKER) (test pmmx=015) 61 K/CU MM 150-450 NUCLEATED RED BLOOD CELLS (BEAKER) (test 1 /100 WBC 0-0 lgvj=563) CBC W/PLT COUNT & AUTO [id number] 16:19:00 Test Item Value Reference Range Comments WHITE BLOOD CELL COUNT 5.0 K/ L 3.5-10.5 (BEAKER) (test buvc=445) RED BLOOD CELL COUNT (BEAKER) 2.35 M/ L 3.93-5.22 (test umkc=318) HEMOGLOBIN (BEAKER) (test 7.6 GM/DL 11.2-15.7 qgjb=306) HEMATOCRIT (BEAKER) (test 23.2 % 34.1-44.9 etqc=876) MEAN CORPUSCULAR VOLUME 98.7 fL 79.4-94.8 (BEAKER) (test mbij=693) MEAN CORPUSCULAR HEMOGLOBIN 32.3 pg 25.6-32.2 (BEAKER) (test fdsq=940) MEAN CORPUSCULAR HEMOGLOBIN 32.8 GM/DL 32.2-35.5 CONC (BEAKER) (test uzob=134) RED CELL DISTRIBUTION WIDTH 22.5 % 11.7-14.4 (BEAKER) (test amki=679) PLATELET COUNT (BEAKER) (test 65 K/CU MM 150-450 neqv=056) MEAN PLATELET VOLUME (BEAKER) fL 9.4-12.3 Unable to report due to (test dcsk=820) abnormal Platelet population distribution. NUCLEATED RED BLOOD CELLS 1 /100 WBC 0-0 (BEAKER) (test igur=063) NEUTROPHILS RELATIVE PERCENT 77 % (BEAKER) (test xtnl=288) LYMPHOCYTES RELATIVE PERCENT 13 % (BEAKER) (test lbne=203) MONOCYTES RELATIVE PERCENT 9 % (BEAKER) (test oxds=450) EOSINOPHILS RELATIVE PERCENT 0 % (BEAKER) (test niwu=529) BASOPHILS RELATIVE PERCENT 0 % (BEAKER) (test oaxx=222) NEUTROPHILS ABSOLUTE COUNT 3.82 K/ L 1.56-6.13 (BEAKER) (test ibsv=562) LYMPHOCYTES ABSOLUTE COUNT 0.62 K/ L 1.18-3.74 (BEAKER) (test ozee=233) MONOCYTES ABSOLUTE COUNT 0.46 K/ L 0.24-0.36 (BEAKER) (test ewzb=229) EOSINOPHILS ABSOLUTE COUNT 0.01 K/ L 0.04-0.36 (BEAKER) (test ufrh=701) BASOPHILS ABSOLUTE COUNT 0.01 K/ L 0.01-0.08 (BEAKER) (test lnxu=879) IMMATURE GRANULOCYTES-RELATIVE 1 % 0-1 PERCENT (BEAKER) (test pvlh=9409) BASIC METABOLIC [id number] 16:10:00 Test Item Value Reference Range Comments SODIUM (BEAKER) (test 129 meq/L 136-145 uvrk=276) POTASSIUM (BEAKER) (test 4.8 meq/L 3.5-5.1 rcou=070) CHLORIDE (BEAKER) (test 94 meq/L 98-107 dtpm=638) CO2 (BEAKER) (test 19 meq/L 22-29 fsuy=348) BLOOD UREA NITROGEN 88 mg/dL 7-21 (BEAKER) (test inkd=193) CREATININE (BEAKER) (test 4.42 mg/dL 0.57-1.25 twaa=167) GLUCOSE RANDOM (BEAKER) 111 mg/dL 70-105 (test cdwu=394) CALCIUM (BEAKER) (test 8.4 mg/dL 8.4-10.2 wfjo=078) EGFR (BEAKER) (test 10 mL/min/1.73 sq m ESTIMATED GFR IS NOT pgzq=4496) ACCURATE CREATININE CLEARANCE IN PREDICTING GLOMERULAR FILTRATION RATE. ESTIMATED GFR IS NOT APPLICABLE FOR DIALYSIS PATIENTS. [id number] 11:52:00 Test Item Value Reference Range Comments HAPTOGLOBIN (BEAKER) (test eyvm=939) 34 mg/dL 14-258 PERIPHERAL BLOOD SMEAR - HOLD [id number] 10:25:00 Test Item Value Reference Range Comments PERIPHERAL SMEAR SAVE (BEAKER) (test fysb=6837) saved CALCIUM, [id number] 09:40:00 Test Item Value Reference Range Comments CALCIUM IONIZED (BEAKER) (test yulb=523) 0.94 mmol/L 1.12-1.27 PH, BLOOD (BEAKER) (test guwr=7945) 7.48 LACTATE DEHYDROGENASE (LDH)2018-03-18 09:27:00 Test Item Value Reference Range Comments LACTATE DEHYDROGENASE (BEAKER) (test pscc=538) 599 U/L 125-220 CBC (HEMOGRAM ONLY)2018-03-18 09:27:00 Test Item Value Reference Range Comments WHITE BLOOD CELL COUNT (BEAKER) (test bzts=197) 4.2 K/ L 3.5-10.5 RED BLOOD CELL COUNT (BEAKER) (test xxkq=426) 2.34 M/ L 3.93-5.22 HEMOGLOBIN (BEAKER) (test ggxv=778) 7.4 GM/DL 11.2-15.7 HEMATOCRIT (BEAKER) (test gjwm=349) 22.8 % 34.1-44.9 MEAN CORPUSCULAR VOLUME (BEAKER) (test quqh=540) 97.4 fL 79.4-94.8 MEAN CORPUSCULAR HEMOGLOBIN (BEAKER) (test 31.6 pg 25.6-32.2 kbpa=461) MEAN CORPUSCULAR HEMOGLOBIN CONC (BEAKER) (test 32.5 GM/DL 32.2-35.5 jdli=797) RED CELL DISTRIBUTION WIDTH (BEAKER) (test 22.5 % 11.7-14.4 njsi=904) PLATELET COUNT (BEAKER) (test lpar=835) 39 K/CU MM 150-450 NUCLEATED RED BLOOD CELLS (BEAKER) (test 1 /100 WBC 0-0 sjnr=153) RETICULOCYTE [id number] 09:24:00 Test Item Value Reference Range Comments RETICULOCYTE COUNT PCT (BEAKER) (test ulfn=713) 6.9 % 0.5-1.7 [id number] 09:16:00 Test Item Value Reference Range Comments D-DIMER QUANTITATIVE (BEAKER) (test tbxs=766) 3.18 MG/L FEU <0.50 Intended Use: The D-Dimer Assay can be used to aid in the diagnosis of Deep Vein Thrombosis (DVT) and Pulmonary Embolism Disease (PED).In patients with low pre-test probability, various studies concerning STA Liatest D-dimer test have reported that with a cutoff value of 0.50 MG/L FEU, the Negative Predictive Value (NPV) regarding the exclusion of thrombosis is within 95-100% range.[id number] 09:14:00 Test Item Value Reference Range Comments PARTIAL THROMBOPLASTIN TIME (BEAKER) (test 38.9 seconds 22.5-36.0 whgt=173) PROTHROMBIN [id number] 09:13:00 Test Item Value Reference Range Comments PROTIME (BEAKER) (test maxk=322) 15.3 seconds 11.7-14.7 INR (BEAKER) (test uuac=959) 1.2 <=5.9 RECOMMENDED COUMADIN/WARFARIN INR THERAPY RANGESSTANDARD DOSE: 2.0 - 3.0 Includes: PROPHYLAXIS forvenous thrombosis, systemic embolization; TREATMENT for venous thrombosis and/or pulmonary embolus.HIGH RISK: Target INR is 2.5-3.5 for patients with mechanical heart valves.BASIC METABOLIC [id number] 08:52: 00 Test Item Value Reference Range Comments SODIUM (BEAKER) (test 135 meq/L 136-145 rpsq=449) POTASSIUM (BEAKER) (test 4.9 meq/L 3.5-5.1 iayv=479) CHLORIDE (BEAKER) (test 96 meq/L 98-107 dgph=291) CO2 (BEAKER) (test 23 meq/L 22-29 hfxg=718) BLOOD UREA NITROGEN 77 mg/dL 7-21 (BEAKER) (test lueu=635) CREATININE (BEAKER) (test 4.04 mg/dL 0.57-1.25 bmbz=519) GLUCOSE RANDOM (BEAKER) 137 mg/dL 70-105 (test mnsw=517) CALCIUM (BEAKER) (test 8.8 mg/dL 8.4-10.2 mhda=198) EGFR (BEAKER) (test 12 mL/min/1.73 sq m ESTIMATED GFR IS NOT uklu=7031) ACCURATE CREATININE CLEARANCE IN PREDICTING GLOMERULAR FILTRATION RATE. ESTIMATED GFR IS NOT APPLICABLE FOR DIALYSIS PATIENTS. CALCIUM, [id number] 08:21:00 Test Item Value Reference Range Comments CALCIUM IONIZED (BEAKER) (test qrml=289) 0.72 mmol/L 1.12-1.27 PH, BLOOD (BEAKER) (test dmsp=2934) 7.46 OSMOLALITY, [id number] 07:36:00 Test Item Value Reference Range Comments OSMOLALITY URINE (BEAKER) (test nfcz=938) 316 mOsm/kg 40-1400 OSMOLALITY, [id number] 07:34:00 Test Item Value Reference Range Comments OSMOLALITY, SERUM (BEAKER) (test pigj=870) 303 mOsm/kg 275-295 CREATININE, RANDOM [id number] 07:26:00 Test Item Value Reference Range Comments CREATININE URINE (BEAKER) (test ptdz=122) 36.3 mg/dL Reference Range: No NormalsPOTASSIUM, RANDOM [id number] 07:26:00 Test Item Value Reference Range Comments POTASSIUM URINE (BEAKER) (test tpax=175) 41.5 meq/L Reference Range: No NormalsSODIUM, RANDOM [id number] 07:26:00 Test Item Value Reference Range Comments SODIUM URINE (BEAKER) (test ytcw=217) 57 meq/L Reference Range: No NormalsUREA NITROGEN, RANDOM [id number] 07:26:00 Test Item Value Reference Range Comments UREA NITROGEN URINE (BEAKER) (test xkve=759) 298 mg/dL Reference Range: No NormalsPERIPHERAL BLOOD SMEAR - HOLD [id number] 07:20:00 Test Item Value Reference Range Comments PERIPHERAL SMEAR SAVE (BEAKER) (test eqwr=6440) saved BASIC METABOLIC [id number] 06:08:00 Test Item Value Reference Range Comments SODIUM (BEAKER) (test 128 meq/L 136-145 isjl=751) POTASSIUM (BEAKER) (test 4.6 meq/L 3.5-5.1 tzrz=291) CHLORIDE (BEAKER) (test 94 meq/L 98-107 bxil=755) CO2 (BEAKER) (test 20 meq/L 22-29 vvbx=392) BLOOD UREA NITROGEN 84 mg/dL 7-21 (BEAKER) (test nhjg=022) CREATININE (BEAKER) (test 4.34 mg/dL 0.57-1.25 lgke=994) GLUCOSE RANDOM (BEAKER) 120 mg/dL 70-105 (test zepm=683) CALCIUM (BEAKER) (test 6.8 mg/dL 8.4-10.2 lxwj=758) EGFR (BEAKER) (test 11 mL/min/1.73 sq m ESTIMATED GFR IS NOT wvgs=2253) ACCURATE CREATININE CLEARANCE IN PREDICTING GLOMERULAR FILTRATION RATE. ESTIMATED GFR IS NOT APPLICABLE FOR DIALYSIS PATIENTS. VANCOMYCIN LEVEL, [id number] 06:05:00 Test Item Value Reference Range Comments VANCOMYCIN RANDOM (BEAKER) (test gtgk=453) < ug/mL Reference Range: No NormalsCALCIUM, [id number] 04:20:00 Test Item Value Reference Range Comments CALCIUM IONIZED (BEAKER) (test zszu=024) 0.81 mmol/L 1.12-1.27 PH, BLOOD (BEAKER) (test xqgo=2182) 7.40 Range 1.12 - 1.15B-[id number] 03:54:00 Test Item Value Reference Range Comments D-DIMER QUANTITATIVE (BEAKER) (test whmm=948) 4.50 MG/L FEU <0.50 Intended Use: The D-Dimer Assay can be used to aid in the diagnosis of Deep Vein Thrombosis (DVT) and Pulmonary Embolism Disease (PED).In patients with low pre-test probability, various studies concerning STA Liatest D-dimer test have reported that with a cutoff value of 0.50 MG/L FEU, the Negative Predictive Value (NPV) regarding the exclusion of thrombosis is within 95-100% range.[id number] 02:58:00 Test Item Value Reference Range Comments PROCALCITONIN (BEAKER) (test fxxj=2222) 8.65 ng/mL <0.05 SEPSIS RISK (ng/mL)Low: 0.05-0.50Intermediate: 0.51-2.00High: & gt;=2.01TROPONIN [id number] 02:29:00 Test Item Value Reference Range Comments TROPONIN I (BEAKER) (test efyk=524) 0.77 ng/mL 0.00-0.03 Troponin I (TnI) levels [...] acute neurological disease, and persistent tachyarrhythmia.COMPREHENSIVE METABOLIC [id number] 02:11:00 Test Item Value Reference Range Comments TOTAL PROTEIN (BEAKER) 6.8 gm/dL 6.0-8.3 (test qvuw=456) ALBUMIN (BEAKER) (test 2.9 g/dL 3.5-5.0 ctzg=9676) ALKALINE PHOSPHATASE 100 U/L 40-150 (BEAKER) (test nnru=255) BILIRUBIN TOTAL (BEAKER) 1.4 mg/dL 0.2-1.2 (test ysuz=482) SODIUM (BEAKER) (test 127 meq/L 136-145 nbnn=389) POTASSIUM (BEAKER) (test 5.0 meq/L 3.5-5.1 xznq=050) CHLORIDE (BEAKER) (test 101 meq/L 98-107 teak=856) CO2 (BEAKER) (test 15 meq/L 22-29 xxng=299) BLOOD UREA NITROGEN 87 mg/dL 7-21 (BEAKER) (test tqkd=506) CREATININE (BEAKER) (test 4.62 mg/dL 0.57-1.25 puio=403) GLUCOSE RANDOM (BEAKER) 128 mg/dL 70-105 (test asgk=345) CALCIUM (BEAKER) (test 6.9 mg/dL 8.4-10.2 qsrr=259) AST (SGOT) (BEAKER) (test 79 U/L 5-34 esnq=288) ALT (SGPT) (BEAKER) (test 45 U/L 6-55 wjxr=424) EGFR (BEAKER) (test 10 mL/min/1.73 sq m ESTIMATED GFR IS NOT kqrf=6523) ACCURATE CREATININE CLEARANCE IN PREDICTING GLOMERULAR FILTRATION RATE. ESTIMATED GFR IS NOT APPLICABLE FOR DIALYSIS PATIENTS. RAD, CHEST, 1 VIEW, NON [id number] 01:44:00Reason for exam:-> HEMODIALYSIS CATHTER PLACEMENTShould this [...] MDReport Verified Date/Time: 03/18/2018 01:44:10 Reading Location: [facility] B1 C013Y CT Body Reading Room [id number] 01:37:00 Test Item Value Reference Range Comments FIBRINOGEN LEVEL (BEAKER) (test qpuq=402) 466 mg/dl 225-434 [id number] 01:37:00 Test Item Value Reference Range Comments PARTIAL THROMBOPLASTIN TIME (BEAKER) (test 33.6 seconds 22.5-36.0 bawn=216) PROTHROMBIN TIME/[id number] 01:36:00 Test Item Value Reference Range Comments PROTIME (BEAKER) (test hzgv=132) 17.0 seconds 11.7-14.7 INR (BEAKER) (test xxhj=146) 1.4 <=5.9 RECOMMENDED COUMADIN/WARFARIN INR THERAPY RANGESSTANDARD DOSE: 2.0 - 3.0 Includes: PROPHYLAXIS forvenous thrombosis, systemic embolization; TREATMENT for venous thrombosis and/or pulmonary embolus.HIGH RISK: Target INR is 2.5-3.5 for patients with mechanical heart valves.LACTIC ACID, VENOUS, WHOLE [id number] 01:26:00 Test Item Value Reference Range Comments LACTATE BLOOD VENOUS (2) (BEAKER) (test 1.7 mmol/L 0.5-2.2 bbin=1950) Effective 11/28/2015: Units/Reference Range ChangeNew: 0.5-2.2 mmol/L Previous: 5 -20 mg/dLCBC (HEMOGRAM ONLY)2018-03-18 01:16:00 Test Item Value Reference Range Comments WHITE BLOOD CELL COUNT (BEAKER) (test tyvb=614) 4.3 K/ L 3.5-10.5 RED BLOOD CELL COUNT (BEAKER) (test hfdo=301) 2.67 M/ L 3.93-5.22 HEMOGLOBIN (BEAKER) (test fyrd=813) 8.6 GM/DL 11.2-15.7 HEMATOCRIT (BEAKER) (test dfcm=515) 25.6 % 34.1-44.9 MEAN CORPUSCULAR VOLUME (BEAKER) (test notg=446) 95.9 fL 79.4-94.8 MEAN CORPUSCULAR HEMOGLOBIN (BEAKER) (test 32.2 pg 25.6-32.2 ubtk=872) MEAN CORPUSCULAR HEMOGLOBIN CONC (BEAKER) (test 33.6 GM/DL 32.2-35.5 ugkr=554) RED CELL DISTRIBUTION WIDTH (BEAKER) (test 21.9 % 11.7-14.4 efzs=877) PLATELET COUNT (BEAKER) (test bstc=098) 39 K/CU MM 150-450 NUCLEATED RED BLOOD CELLS (BEAKER) (test 1 /100 WBC 0-0 vejy=976) CT, BIOPSY, BONE [id number] 17:06:00Reason for exam:->pancytopenia in setting of metastatic breast cancer, chemotherapy held almost 2monthsFINAL REPORT PROCEDURE: CT-guided bone marrow biopsy DOSE REDUCTION: The examination was performed according to departmental dose- optimization program which includes automated exposure control, adjustment of the mA and/or kV according to patient size and/or use of iterative reconstruction technique. Clinical History: Pancytopenia Marketing Area Manager: Marce Conscious sedation: Versed 1 mg,fentanyl 50 [...] was immediately removed and provided to the sleep lab technologist. Subsequently a core biopsy was obtained using the outer sheath. The needle and sheath were removed.Postprocedure CT evaluation of the area revealed no significant hematoma. Patient tolerated the procedure well and remained hemodynamically stable throughout. IMPRESSION: Successful and uncomplicated CT -guided bone marrow aspiration and core biopsy. Signed: Jordan Sultana MDReport Verified Date/Time: 03/17/2018 17:06:03 Reading Location: [facility] Radiology Reading Room 05: 06 PMBONE MARROW PROCESS ([facility]2018-03-17 15:16:00 Test Item Value Reference Range Comments ANATOMIC CASE# (ADDY) (test uvuc=0245) [id number] ORDERED BY DOCTOR# (ADDY) (test foha=5421) jordan Sultana m.d. PERFORMED BY DOCTOR# (ADDY) (test Jordan Sultana m.d. bfms=0603) CLOT RECEIVED? (BEAKER) (test boap=9577) Yes BIOPSY RECEIVED? (BEAKER) (test jtpg=0159) Yes CULTURE RECEIVED? (BEAKER) (test wnsw=9006) No FLOW RECEIVED? (BEAKER) (test fznx=7822) Yes CYTOGENICS? (BEAKER) (test nwue=0407) Yes MOLECULAR GENETICS? (BEAKER) (test No lkqd=3874) RAD, CHEST, 2 [id number] 13:39:00Reason for exam:->sobFINAL REPORT Comparison: 15/08/2017 TECHNIQUE: 2 views of the chest FINDINGS: There is mild vascular congestion. There are small pleural effusions. Cardiac silhouette is enlarged.Left internal jugular chest port noted with tip at the cavoatrial junction. Surgical clips project over the right chest wall. Signed: Jordan Sultana MDReport Verified Date/Time: 03/17/2018 13:39:16 Reading Location: [facility] Radiology Reading Room [id number] 13:20:00 Test Item Value Reference Range Comments HAPTOGLOBIN (BEAKER) (test wsbb=516) < mg/dL 14-258 COMPLEMENT COMPONENT [id number] 12:57:00 Test Item Value Reference Range Comments C4 COMPLEMENT (BEAKER) (test vmfm=306) 22 mg/dL 15-57 COMPLEMENT COMPONENT [id number] 12:57:00 Test Item Value Reference Range Comments C3 COMPLEMENT (BEAKER) (test rlhg=931) 94 mg/dL 82-193 PERIPHERAL BLOOD SMEAR - PATHOLOGIST [id number] 09:47:00 Test Item Value Reference Range Comments PERIPHERAL SMR REVIEW Normochromic normocytic anemia (BEAKER) (test tyqc=0209) with rare schistocytes seen (1-2/ HPF). WBCs normal in number and morphology. Thrombocytopenia with a few large forms. [id number] Michelle Yu M.D. (electronic (BEAKER) (test ozfk=4598) signature) TROPONIN [id number] 07:07:00 Test Item Value Reference Range Comments TROPONIN I (BEAKER) (test pfhb=948) 1.56 ng/mL 0.00-0.15 Troponin I (TnI) levels [...] acute neurological disease, and persistent tachyarrhythmia.BASIC METABOLIC [id number] 07:06:00 Test Item Value Reference Range Comments SODIUM (BEAKER) (test 131 meq/L 135-148 ptvh=146) POTASSIUM (BEAKER) (test 5.8 meq/L 3.6-5.5 eibt=227) CHLORIDE (BEAKER) (test 107 meq/L 98-106 rsac=743) CO2 (BEAKER) (test 12 meq/L 20-29 ioaw=083) BLOOD UREA NITROGEN 74 mg/dL 10-26 (BEAKER) (test ethk=050) CREATININE (BEAKER) (test 3.95 mg/dL 0.50-1.20 qehq=940) GLUCOSE RANDOM (BEAKER) 133 mg/dL 70-110 (test yooc=439) CALCIUM (BEAKER) (test 7.6 mg/dL 8.5-10.5 gqpx=749) EGFR (BEAKER) (test 12 mL/min/1.73 sq m ESTIMATED GFR IS NOT knoa=2516) ACCURATE CREATININE CLEARANCE IN PREDICTING GLOMERULAR FILTRATION RATE. ESTIMATED GFR IS NOT APPLICABLE FOR DIALYSIS PATIENTS. [id number] 06:45:00 Test Item Value Reference Range Comments MAGNESIUM (BEAKER) (test awqd=212) 2.0 mg/dL 1.5-3.0 CBC W/PLT COUNT & AUTO [id number] 06:35:00 Test Item Value Reference Range Comments WHITE BLOOD CELL COUNT (BEAKER) (test voxb=538) 8.7 K/ L 4.0-10.0 RED BLOOD CELL COUNT (BEAKER) (test hufk=770) 3.26 M/ L 4.00-5.00 HEMOGLOBIN (BEAKER) (test xynr=534) 10.2 GM/DL 12.0-15.5 HEMATOCRIT (BEAKER) (test grua=210) 31.9 % 36.0-46.0 MEAN CORPUSCULAR VOLUME (BEAKER) (test orne=500) 97.9 fL 82.0-99.0 MEAN CORPUSCULAR HEMOGLOBIN (BEAKER) (test 31.3 pg 27.0-33.0 dlqm=737) MEAN CORPUSCULAR HEMOGLOBIN CONC (BEAKER) (test 32.0 GM/DL 32.0-36.0 dqgm=891) RED CELL DISTRIBUTION WIDTH (BEAKER) (test 20.8 % 12.0-15.0 ojyv=582) PLATELET COUNT (BEAKER) (test chqx=147) 62 K/CU MM 150-430 MEAN PLATELET VOLUME (BEAKER) (test vzgi=626) 10.5 fL 6.0-11.5 NUCLEATED RED BLOOD CELLS (BEAKER) (test 0 /100 WBC 0-0 zmip=039) NEUTROPHILS RELATIVE PERCENT (BEAKER) (test 80 % hsvj=880) LYMPHOCYTES RELATIVE PERCENT (BEAKER) (test 11 % efpe=117) MONOCYTES RELATIVE PERCENT (BEAKER) (test 8 % wnfy=817) EOSINOPHILS RELATIVE PERCENT (BEAKER) (test 0 % ksou=474) BASOPHILS RELATIVE PERCENT (BEAKER) (test 0 % mfiv=878) NEUTROPHILS ABSOLUTE COUNT (BEAKER) (test 6.95 K/ L 1.80-8.00 nayd=808) LYMPHOCYTES ABSOLUTE COUNT (BEAKER) (test 0.92 K/ L 1.48-4.50 qxnl=891) MONOCYTES ABSOLUTE COUNT (BEAKER) (test bybu=782) 0.72 K/ L 0.00-1.30 EOSINOPHILS ABSOLUTE COUNT (BEAKER) (test 0.00 K/ L 0.00-0.50 mbtf=860) BASOPHILS ABSOLUTE COUNT (BEAKER) (test glvf=668) 0.01 K/ L 0.00-0.20 IMMATURE GRANULOCYTES-RELATIVE PERCENT (BEAKER) 1 % 0-0 (test hzlp=7494) BLOOD GAS, [id number] 05:27:00 Test Item Value Reference Range Comments PH ARTERIAL (BEAKER) (test xzgg=530) 7.40 7.35-7.45 PCO2 ARTERIAL (BEAKER) (test vrwi=380) 18 mmHg 35-45 PO2 ARTERIAL (BEAKER) (test senr=987) 72 mmHg 80-90 O2 SATURATION ARTERIAL (BEAKER) (test hmmn=631) 94.7 % 96.0-97.0 HCO3 ARTERIAL (BEAKER) (test qhzn=055) 11 mmol/L 21-29 BASE EXCESS ARTERIAL (BEAKER) (test oegi=079) -12.0 mmol/L -2.0-3.0 PATIENT TEMPERATURE (BEAKER) (test exar=5443) 37.5 C FIO2 (BEAKER) (test krpm=3826) 28.0 % PROTEIN, RANDOM [id number] 00:47:00 Test Item Value Reference Range Comments PROTEIN, URINE (BEAKER) (test wmmv=9001) 432 mg/dL 0-14 CREATININE, RANDOM [id number] 00:03:00 Test Item Value Reference Range Comments CREATININE URINE (BEAKER) (test ludr=219) 68.6 mg/dL Reference Range: No NormalsURINALYSIS W/ [id number] 23:56:00 Test Item Value Reference Range Comments COLOR (BEAKER) (test uoty=719) Yellow CLARITY (BEAKER) (test sgfe=254) Clear SPECIFIC GRAVITY UA (BEAKER) (test jone=929) 1.020 1.001-1.035 PH UA (BEAKER) (test mcct=247) 5.5 5.0-8.0 PROTEIN UA (BEAKER) (test gtut=896) >=300 mg/dL Negative GLUCOSE UA (BEAKER) (test fzmb=119) Negative Negative KETONES UA (BEAKER) (test xelm=948) Negative Negative BILIRUBIN UA (BEAKER) (test genl=623) Negative Negative BLOOD UA (BEAKER) (test bdud=137) Large Negative NITRITE UA (BEAKER) (test wtyy=257) Negative Negative LEUKOCYTE ESTERASE UA (BEAKER) (test pghn=126) Trace Negative UROBILINOGEN UA (BEAKER) (test pbod=380) 0.2 mg/dL 0.2-1.0 BACTERIA (BEAKER) (test xitg=925) Occasional AMORPHOUS CRYSTALS (BEAKER) (test vjxr=9446) Few RBC UA-MANUAL (BEAKER) (test zzel=2343) 5-10 /HPF WBC UA-MANUAL (BEAKER) (test vxqg=7953) <5 /HPF SQUAMOUS EPITHELIAL MANUAL (BEAKER) (test 5-10 /HPF ahgd=3806) GRANULAR CASTS MANUAL (BEAKER) (test rarn=8252) Few /LPF SOURCE(BEAKER) (test dtvc=9195) KETONE, [id number] 22:28:00 Test Item Value Reference Range Comments KETONES, BLOOD (BEAKER) (test xqwi=6988) 0.3 mmol/L <0.4 BILIRUBIN, TOTAL AND [id number] 22:17:00 Test Item Value Reference Range Comments BILIRUBIN TOTAL (BEAKER) (test jqku=076) 2.1 mg/dL 0.1-1.2 BILIRUBIN DIRECT (BEAKER) (test qvak=113) 1.1 mg/dL 0.0-0.4 LACTATE DEHYDROGENASE (LDH)2018-03-16 22:16:00 Test Item Value Reference Range Comments LACTATE DEHYDROGENASE (BEAKER) (test zbwo=725) 1540 U/L 107-206 TROPONIN [id number] 19:44:00 Test Item Value Reference Range Comments TROPONIN I (BEAKER) (test iuwo=623) 0.24 ng/mL 0.00-0.15 Troponin I (TnI) levels [...] acidosis, acute neurological disease, and persistent tachyarrhythmia.TROPONIN [id number] 10:58:00 Test Item Value Reference Range Comments TROPONIN I (BEAKER) (test yrnd=964) 0.17 ng/mL 0.00-0.15 Troponin I (TnI) levels [...] and persistent tachyarrhythmia.CREATINE KINASE (CK), TOTAL AND [id number] 10:57:00 Test Item Value Reference Range Comments CREATINE KINASE TOTAL (BEAKER) (test cduw=943) 125 U/L 25-235 CREATINE KINASE-MB (BEAKER) (test rolz=695) 0.9 ng/mL 0.0-4.9 CREATINE KINASE-MB INDEX (BEAKER) (test gzai=681) 0.7 % CK-MB Reference Range:<5 Normal5-10 Borderline>10 AbnormalCOMPREHENSIVE METABOLIC [id number] 10:53:00 Test Item Value Reference Range Comments TOTAL PROTEIN (BEAKER) 7.7 gm/dL 6.0-8.5 (test hvio=811) ALBUMIN (BEAKER) (test 3.4 g/dL 3.5-5.0 jkpu=3340) ALKALINE PHOSPHATASE 45 U/L 30-115 (BEAKER) (test fogd=250) BILIRUBIN TOTAL (BEAKER) 1.4 mg/dL 0.1-1.2 (test wjua=337) SODIUM (BEAKER) (test 132 meq/L 135-148 cjgj=923) POTASSIUM (BEAKER) (test 4.8 meq/L 3.6-5.5 uaqk=840) CHLORIDE (BEAKER) (test 106 meq/L 98-106 opes=540) CO2 (BEAKER) (test 13 meq/L 20-29 vbmf=200) BLOOD UREA NITROGEN 63 mg/dL 10-26 (BEAKER) (test xnig=792) CREATININE (BEAKER) (test 3.73 mg/dL 0.50-1.20 ypji=812) GLUCOSE RANDOM (BEAKER) 94 mg/dL 70-110 (test izbo=746) CALCIUM (BEAKER) (test 8.2 mg/dL 8.5-10.5 yeki=050) AST (SGOT) (BEAKER) (test 59 U/L 5-40 czit=845) ALT (SGPT) (BEAKER) (test 23 U/L 5-50 kqpy=299) EGFR (BEAKER) (test 13 mL/min/1.73 sq m ESTIMATED GFR IS NOT gksa=7838) ACCURATE CREATININE CLEARANCE IN PREDICTING GLOMERULAR FILTRATION RATE. ESTIMATED GFR IS NOT APPLICABLE FOR DIALYSIS PATIENTS. URINALYSIS W/ [id number] 10:49:00 Test Item Value Reference Range Comments COLOR (BEAKER) (test kldf=247) Yellow CLARITY (BEAKER) (test acps=363) Clear SPECIFIC GRAVITY UA (BEAKER) (test ezxg=284) 1.020 1.001-1.035 PH UA (BEAKER) (test uhej=765) 5.5 5.0-8.0 PROTEIN UA (BEAKER) (test npgp=863) >=300 mg/dL Negative GLUCOSE UA (BEAKER) (test gkzd=980) Negative Negative KETONES UA (BEAKER) (test azzd=894) Negative Negative BILIRUBIN UA (BEAKER) (test labq=355) Negative Negative BLOOD UA (BEAKER) (test hqag=384) Large Negative NITRITE UA (BEAKER) (test rile=100) Negative Negative LEUKOCYTE ESTERASE UA (BEAKER) (test vegn=026) Negative Negative UROBILINOGEN UA (BEAKER) (test gbea=728) 0.2 mg/dL 0.2-1.0 BACTERIA (BEAKER) (test laov=988) Few AMORPHOUS CRYSTALS (BEAKER) (test hiyv=5079) Moderate RBC UA-MANUAL (BEAKER) (test zdpx=8458) 5-10 /HPF WBC UA-MANUAL (BEAKER) (test bjnj=0691) <5 /HPF SQUAMOUS EPITHELIAL MANUAL (BEAKER) (test 5-10 /HPF tpsz=8367) WAXY CASTS MANUAL (BEAKER) (test pxax=5117) 5-10 /LPF SOURCE(BEAKER) (test scsm=3445) CBC W/PLT COUNT & AUTO [id number] 10:49:00 Test Item Value Reference Range Comments WHITE BLOOD CELL COUNT (BEAKER) (test qega=534) 4.0 K/ L 4.0-10.0 RED BLOOD CELL COUNT (BEAKER) (test uczs=255) 1.64 M/ L 4.00-5.00 HEMOGLOBIN (BEAKER) (test vhat=212) 5.5 GM/DL 12.0-15.5 HEMATOCRIT (BEAKER) (test slev=694) 17.6 % 36.0-46.0 MEAN CORPUSCULAR VOLUME (BEAKER) (test kpja=497) 107.3 fL 82.0-99.0 MEAN CORPUSCULAR HEMOGLOBIN (BEAKER) (test 33.5 pg 27.0-33.0 mizp=828) MEAN CORPUSCULAR HEMOGLOBIN CONC (BEAKER) (test 31.3 GM/DL 32.0-36.0 zuxr=613) RED CELL DISTRIBUTION WIDTH (BEAKER) (test 23.5 % 12.0-15.0 fsee=965) PLATELET COUNT (BEAKER) (test xzeo=352) 66 K/CU MM 150-430 MEAN PLATELET VOLUME (BEAKER) (test hqnn=616) 11.3 fL 6.0-11.5 NUCLEATED RED BLOOD CELLS (BEAKER) (test 0 /100 WBC 0-0 cycy=931) NEUTROPHILS RELATIVE PERCENT (BEAKER) (test 81 % wviw=808) LYMPHOCYTES RELATIVE PERCENT (BEAKER) (test 9 % xcyw=332) MONOCYTES RELATIVE PERCENT (BEAKER) (test 9 % ktbz=437) EOSINOPHILS RELATIVE PERCENT (BEAKER) (test 0 % gbdw=222) BASOPHILS RELATIVE PERCENT (BEAKER) (test 0 % uuor=420) NEUTROPHILS ABSOLUTE COUNT (BEAKER) (test 3.21 K/ L 1.80-8.00 lvkd=167) LYMPHOCYTES ABSOLUTE COUNT (BEAKER) (test 0.36 K/ L 1.48-4.50 lzpx=190) MONOCYTES ABSOLUTE COUNT (BEAKER) (test avfb=444) 0.34 K/ L 0.00-1.30 EOSINOPHILS ABSOLUTE COUNT (BEAKER) (test 0.01 K/ L 0.00-0.50 igvb=287) BASOPHILS ABSOLUTE COUNT (BEAKER) (test lyzn=275) 0.00 K/ L 0.00-0.20 IMMATURE GRANULOCYTES-RELATIVE PERCENT (BEAKER) 1 % 0-0 (test efyz=9358) (MANUAL DIFFERENTIAL)2018-03-16 10:49:00 Test Item Value Reference Range Comments TOTAL COUNTED (BEAKER) (test ccxj=7855) WBC MORPHOLOGY (BEAKER) (test jahz=651) Normal PLT MORPHOLOGY (BEAKER) (test notd=654) Normal SCHISTOCYTES (BEAKER) (test mxkd=942) 1+ few ANISOCYTOSIS (BEAKER) (test txvp=136) 1+ few MACROCYTES (BEAKER) (test zemx=685) 1+ few MICROCYTES (BEAKER) (test xiqy=245) 1+ few POIKILOCYTES (BEAKER) (test pegv=813) 1+ few POLYCHROMATOPHILLIC RBCS(BEAKER) (test ctgh=014) 1+ few [id number] 10:46:00 Test Item Value Reference Range Comments PROTIME (BEAKER) (test usrq=007) 11.1 sec 9.3-12.0 INR (BEAKER) (test xntp=845) 1.0 <=5.9 PARTIAL THROMBOPLASTIN TIME (BEAKER) (test 31.0 sec 23.0-35.0 yyby=712) RECOMMENDED COUMADIN/WARFARIN INR THERAPY RANGESSTANDARD DOSE: 2.0 - 3.0 Includes: PROPHYLAXIS forvenous thrombosis, systemic embolization; TREATMENT for venous thrombosis and/or pulmonary embolus.HIGH RISK: Target INR is 2.5-3.5 for patients with mechanical heart valves.Final Information (Auto Output)Final Information (Auto Output)Final Information (Auto Output)LACTIC ACID, VENOUS, WHOLE [id number] 10:45:00 Test Item Value Reference Range Comments LACTATE BLOOD VENOUS (2) (BEAKER) (test 2.2 mmol/L 0.5-2.2 xsxr=3590) Effective 11/28/2015: Units/Reference Range ChangeNew: 0.5-2.2 mmol/L Previous: 5 -18 mg/dLRAD, CHEST, 1 VIEW, NON [id number] 10:14:00Reason for exam:-> chest painIs the patient [...] MDReport Verified Date/Time: 03/16/2018 10:14:32 Reading Location: [facility] Radiology Reading Room 10: 14 AMBLOOD [id number] 22:01:00 Test Item Value Reference Range Comments CULTURE (BEAKER) (test bpxu=9792) No growth in 5 days BLOOD [id number] 22:01:00 Test Item Value Reference Range Comments CULTURE (BEAKER) (test ftkg=5594) No growth in 5 days RESPIRATORY PANEL [id number] 09:21:00 Test Item Value Reference Range Comments HUMAN METAPNEUMOVIRUS (BEAKER) (test Not detected Not detected, Inconclusive opzz=4419) RHINOVIRUS (BEAKER) (test omuh=2281) Not detected Not detected, Inconclusive INFLUENZA A (BEAKER) (test Not detected Not detected, Inconclusive trft=2831) INFLUENZA A SUBTYPE H1 (BEAKER) Not detected Not detected, Inconclusive (test cqbx=3939) INFLUENZA A SUBTYPE H3 (BEAKER) Not detected Not detected, Inconclusive (test ghlg=9509) INFLUENZA A SUBTYPE H1-2009 (BEAKER) Not detected Not detected, Inconclusive (test fluf=8857) INFLUENZA B (BEAKER) (test Not detected Not detected, Inconclusive bror=2115) RESPIRATORY SYNCYTIAL VIRUS (BEAKER) Not detected Not detected, Inconclusive (test mgbh=9807) PARAINFLUENZA VIRUS 1 (BEAKER) (test Not detected Not detected, Inconclusive vuxh=4476) PARAINFLUENZA VIRUS 2 (BEAKER) (test Not detected Not detected, Inconclusive hwys=2843) PARAINFLUENZA VIRUS 3 (BEAKER) (test Not detected Not detected, Inconclusive zhte=7157) PARAINFLUENZA VIRUS 4 (BEAKER) (test Not detected Not detected, Inconclusive nhhc=5058) ADENOVIRUS (BEAKER) (test ekui=9029) Not detected Not detected, Inconclusive CORONAVIRUS 229E (BEAKER) (test Not detected Not detected, Inconclusive lpmq=5306) CORONAVIRUS HKU1 (BEAKER) (test Not detected Not detected, Inconclusive llgb=2942) CORONAVIRUS NL63 (BEAKER) (test Not detected Not detected, Inconclusive mcpt=2751) CORONAVIRUS OC43 (BEAKER) (test Not detected Not detected, Inconclusive lkcw=9203) BORDETELLA PERTUSSIS (BEAKER) (test Not detected Not detected, Inconclusive zkwp=9761) CHLAMYDOPHILA PNEUMONIAE (BEAKER) Not detected Not detected, Inconclusive (test phpq=2996) MYCOPLASMA PNEUMONIAE (BEAKER) (test Not detected Not detected, Inconclusive pfav=1305) VANCOMYCIN LEVEL, [id number] 07:38:00 Test Item Value Reference Range Comments VANCOMYCIN TROUGH (BEAKER) (test qhql=622) 11.7 ug/mL 10.0-20.0 URINE [id number] 08:56:00 Test Item Value Reference Range Comments CULTURE (BEAKER) (test suhb=7677) No growth CBC W/PLT COUNT & AUTO [id number] 06:39:00 Test Item Value Reference Range Comments WHITE BLOOD CELL COUNT (BEAKER) (test yncg=596) 2.4 K/ L 4.0-10.0 RED BLOOD CELL COUNT (BEAKER) (test ogwj=935) 2.56 M/ L 4.00-5.00 HEMOGLOBIN (BEAKER) (test cdwf=239) 8.4 GM/DL 12.0-15.0 HEMATOCRIT (BEAKER) (test sfsp=009) 24.6 % 36.0-45.0 MEAN CORPUSCULAR VOLUME (BEAKER) (test kwxx=813) 96.4 fL 82.0-99.0 MEAN CORPUSCULAR HEMOGLOBIN (BEAKER) (test 33.0 pg 27.0-33.0 vuah=041) MEAN CORPUSCULAR HEMOGLOBIN CONC (BEAKER) (test 34.2 GM/DL 32.0-36.0 ldfg=988) RED CELL DISTRIBUTION WIDTH (BEAKER) (test 19.7 % 10.3-14.2 ryfj=635) PLATELET COUNT (BEAKER) (test bgvb=303) 108 K/CU MM 150-430 MEAN PLATELET VOLUME (BEAKER) (test kjhb=998) 8.8 fL 6.5-10.5 NUCLEATED RED BLOOD CELLS (BEAKER) (test 0 /100 WBC 0-0 weoj=185) (MANUAL DIFFERENTIAL)2017-12-10 06:39:00 Test Item Value Reference Range Comments NEUTROPHILS - REL (DIFF) (BEAKER) (test atga=4897) 83 % LYMPHOCYTES - REL (DIFF) (BEAKER) (test elaj=5534) 15 % MONOCYTES - REL (DIFF) (BEAKER) (test ujka=8881) 2 % NEUTROPHILS - ABS (DIFF) (BEAKER) (test ggal=6896) 1.99 K/ L 1.80-8.00 LYMPHOCYTES - ABS (DIFF) (BEAKER) (test ntwj=3889) 0.36 K/ L 1.48-4.50 MONOCYTES - ABS (DIFF) (BEAKER) (test pxws=1579) 0.05 K/ L 0.00-1.30 TOTAL COUNTED (BEAKER) (test gyyc=9596) 100 WBC MORPHOLOGY (BEAKER) (test bvbv=279) Normal PLT MORPHOLOGY (BEAKER) (test qyai=610) Normal RBC MORPHOLOGY (BEAKER) (test kkku=995) Normal POCT-GLUCOSE [id number] 14:39:00 Test Item Value Reference Range Comments POC-GLUCOSE METER (BEAKER) 125 mg/dL 70-110 TESTED AT [address] (test ijig=2447) [address] [facility] [address] CBC W/PLT COUNT & AUTO [id number] 06:47:00 Test Item Value Reference Range Comments WHITE BLOOD CELL COUNT (BEAKER) (test 2.2 K/ L 4.0-10.0 odqk=011) RED BLOOD CELL COUNT (BEAKER) (test 2.72 M/ L 4.00-5.00 rcbw=431) HEMOGLOBIN (BEAKER) (test kfsm=643) 9.1 GM/DL 12.0-15.0 HEMATOCRIT (BEAKER) (test tvpm=151) 26.2 % 36.0-45.0 MEAN CORPUSCULAR VOLUME (BEAKER) (test 96.3 fL 82.0-99.0 qjoc=704) MEAN CORPUSCULAR HEMOGLOBIN (BEAKER) 33.3 pg 27.0-33.0 (test gips=749) MEAN CORPUSCULAR HEMOGLOBIN CONC 34.5 GM/DL 32.0-36.0 (BEAKER) (test njky=083) RED CELL DISTRIBUTION WIDTH (BEAKER) 18.3 % 10.3-14.2 (test ifkj=984) PLATELET COUNT (BEAKER) (test rvsg=281) 129 K/CU MM 150-430 No clot detected MEAN PLATELET VOLUME (BEAKER) (test 7.8 fL 6.5-10.5 pfqt=552) NEUTROPHILS RELATIVE PERCENT (BEAKER) 81 % (test cbod=014) LYMPHOCYTES RELATIVE PERCENT (BEAKER) 14 % (test qtkk=714) MONOCYTES RELATIVE PERCENT (BEAKER) 4 % (test cegk=141) EOSINOPHILS RELATIVE PERCENT (BEAKER) 0 % (test uswn=598) BASOPHILS RELATIVE PERCENT (BEAKER) 0 % (test rudf=721) NEUTROPHILS ABSOLUTE COUNT (BEAKER) 1.80 K/ L 1.80-8.00 (test yfwu=578) LYMPHOCYTES ABSOLUTE COUNT (BEAKER) 0.30 K/ L 1.48-4.50 (test kurd=279) MONOCYTES ABSOLUTE COUNT (BEAKER) (test 0.10 K/ L 0.00-1.30 zdvd=375) EOSINOPHILS ABSOLUTE COUNT (BEAKER) 0.00 K/ L 0.00-0.50 (test dgta=764) BASOPHILS ABSOLUTE COUNT (BEAKER) (test 0.00 K/ L 0.00-0.20 iwdb=413) BASIC METABOLIC [id number] 05:54:00 Test Item Value Reference Range Comments SODIUM (BEAKER) (test 138 meq/L 135-148 exma=651) POTASSIUM (BEAKER) (test 3.9 meq/L 3.6-5.5 rslu=583) CHLORIDE (BEAKER) (test 105 meq/L 98-106 rkqt=602) CO2 (BEAKER) (test 26 meq/L 20-29 vrnp=272) BLOOD UREA NITROGEN 14 mg/dL 10-26 (BEAKER) (test feai=719) CREATININE (BEAKER) (test 0.76 mg/dL 0.50-1.20 vnbe=365) GLUCOSE RANDOM (BEAKER) 84 mg/dL 70-110 (test rcgm=954) CALCIUM (BEAKER) (test 8.2 mg/dL 8.5-10.5 pktn=007) EGFR (BEAKER) (test 80 mL/min/1.73 sq m ESTIMATED GFR IS NOT nuza=3792) ACCURATE CREATININE CLEARANCE IN PREDICTING GLOMERULAR FILTRATION RATE. ESTIMATED GFR IS NOT APPLICABLE FOR DIALYSIS PATIENTS. RAD, CHEST, 2 [id number] 19:36:00Reason for exam:->FEVERIs the patient ?->NoShould this [...] MDReport Verified Date/Time: 12/08/2017 19:36:34 Reading Location: [facility] B1 [id number] Consult Reading Room URINALYSIS W/ [id number] 19:33:00 Test Item Value Reference Range Comments COLOR (BEAKER) (test nurz=302) Yellow CLARITY (BEAKER) (test qczh=408) Clear SPECIFIC GRAVITY UA (BEAKER) (test uwpd=772) <= 1.001-1.035 PH UA (BEAKER) (test jfed=969) 5.5 5.0-8.0 PROTEIN UA (BEAKER) (test yfju=251) Negative Negative GLUCOSE UA (BEAKER) (test bddu=171) Negative Negative KETONES UA (BEAKER) (test ezat=675) Negative Negative BILIRUBIN UA (BEAKER) (test lwyr=298) Negative Negative BLOOD UA (BEAKER) (test cylz=036) Negative Negative NITRITE UA (BEAKER) (test urvp=824) Negative Negative LEUKOCYTE ESTERASE UA (BEAKER) (test zoup=197) Negative Negative UROBILINOGEN UA (BEAKER) (test lzpg=664) 0.2 mg/dL 0.2-1.0 BACTERIA (BEAKER) (test guft=194) Occasional RBC UA-MANUAL (BEAKER) (test xnts=4611) <5 /HPF WBC UA-MANUAL (BEAKER) (test rwon=8156) <5 /HPF SQUAMOUS EPITHELIAL MANUAL (BEAKER) (test <5 /HPF tllk=0453) SOURCE(BEAKER) (test uuxt=3744) COMPREHENSIVE METABOLIC [id number] 19:01:00 Test Item Value Reference Range Comments TOTAL PROTEIN (BEAKER) 8.1 gm/dL 6.0-8.5 (test tfez=230) ALBUMIN (BEAKER) (test 4.1 g/dL 3.5-5.0 shix=9955) ALKALINE PHOSPHATASE 75 U/L 30-115 (BEAKER) (test uwqi=103) BILIRUBIN TOTAL (BEAKER) 0.6 mg/dL 0.1-1.2 (test vhgf=911) SODIUM (BEAKER) (test 132 meq/L 135-148 elie=426) POTASSIUM (BEAKER) (test 3.6 meq/L 3.6-5.5 idkp=189) CHLORIDE (BEAKER) (test 97 meq/L 98-106 hhjk=155) CO2 (BEAKER) (test 23 meq/L 20-29 ysfx=830) BLOOD UREA NITROGEN 18 mg/dL 10-26 (BEAKER) (test dxtw=003) CREATININE (BEAKER) (test 1.02 mg/dL 0.50-1.20 fgkh=364) GLUCOSE RANDOM (BEAKER) 102 mg/dL 70-110 (test xqtj=812) CALCIUM (BEAKER) (test 8.6 mg/dL 8.5-10.5 cssg=618) AST (SGOT) (BEAKER) (test 38 U/L 5-40 wszc=303) ALT (SGPT) (BEAKER) (test 49 U/L 5-50 brxs=877) EGFR (BEAKER) (test 57 mL/min/1.73 sq m ESTIMATED GFR IS NOT kwmu=4273) ACCURATE CREATININE CLEARANCE IN PREDICTING GLOMERULAR FILTRATION RATE. ESTIMATED GFR IS NOT APPLICABLE FOR DIALYSIS PATIENTS. LACTIC ACID, VENOUS, WHOLE [id number] 18:53:00 Test Item Value Reference Range Comments LACTATE BLOOD VENOUS (2) (BEAKER) (test 0.8 mmol/L 0.5-2.2 uqqo=2157) Effective 11/28/2015: Units/Reference Range ChangeNew: 0.5-2.2 mmol/L Previous: 5 -18 mg/dLCBC W/PLT COUNT & AUTO [id number] 18:36:00 Test Item Value Reference Range Comments WHITE BLOOD CELL COUNT (BEAKER) (test mjdx=766) 3.5 K/ L 4.0-10.0 RED BLOOD CELL COUNT (BEAKER) (test mefk=860) 2.95 M/ L 4.00-5.00 HEMOGLOBIN (BEAKER) (test swnk=232) 9.7 GM/DL 12.0-15.0 HEMATOCRIT (BEAKER) (test ljjp=988) 28.5 % 36.0-45.0 MEAN CORPUSCULAR VOLUME (BEAKER) (test jafp=534) 96.6 fL 82.0-99.0 MEAN CORPUSCULAR HEMOGLOBIN (BEAKER) (test 32.9 pg 27.0-33.0 pufu=494) MEAN CORPUSCULAR HEMOGLOBIN CONC (BEAKER) (test 34.0 GM/DL 32.0-36.0 ruvs=372) RED CELL DISTRIBUTION WIDTH (BEAKER) (test 18.5 % 10.3-14.2 bera=198) PLATELET COUNT (BEAKER) (test uufc=373) 187 K/CU MM 150-430 MEAN PLATELET VOLUME (BEAKER) (test zxet=982) 7.8 fL 6.5-10.5 NEUTROPHILS RELATIVE PERCENT (BEAKER) (test 84 % nhro=299) LYMPHOCYTES RELATIVE PERCENT (BEAKER) (test 10 % rbbt=701) MONOCYTES RELATIVE PERCENT (BEAKER) (test 5 % xtei=769) EOSINOPHILS RELATIVE PERCENT (BEAKER) (test 0 % yqhd=143) BASOPHILS RELATIVE PERCENT (BEAKER) (test 0 % ervu=742) NEUTROPHILS ABSOLUTE COUNT (BEAKER) (test 2.90 K/ L 1.80-8.00 dath=187) LYMPHOCYTES ABSOLUTE COUNT (BEAKER) (test 0.40 K/ L 1.48-4.50 dpnv=257) MONOCYTES ABSOLUTE COUNT (BEAKER) (test 0.20 K/ L 0.00-1.30 tkun=813) EOSINOPHILS ABSOLUTE COUNT (BEAKER) (test 0.00 K/ L 0.00-0.50 dsiw=042) BASOPHILS ABSOLUTE COUNT (BEAKER) (test 0.00 K/ L 0.00-0.20 kyaz=411) BLOOD [id number] 13:00:00 Test Item Value Reference Range Comments CULTURE (BEAKER) (test oxkp=5266) No growth in 5 days BLOOD [id number] 10:00:00 Test Item Value Reference Range Comments CULTURE (BEAKER) (test brje=7742) No growth in 5 days VANCOMYCIN LEVEL, [id number] 14:26:00 Test Item Value Reference Range Comments VANCOMYCIN TROUGH (BEAKER) (test xmzb=234) 9.8 ug/mL 10.0-20.0 VANCOMYCIN DOSING BY RX PER DR. Kowalski PRIOR TO 4th DOSE ON 10/22/17 AT13: 30URINE [id number] 08:16:00 Test Item Value Reference Range Comments CULTURE (BEAKER) (test ryxp=6675) No growth (MANUAL DIFFERENTIAL)2017-10-22 07:06:00 Test Item Value Reference Range Comments NEUTROPHILS - REL (DIFF) (BEAKER) (test yjnm=2396) 69 % LYMPHOCYTES - REL (DIFF) (BEAKER) (test dwqc=6386) 27 % MONOCYTES - REL (DIFF) (BEAKER) (test dwly=1821) 4 % NEUTROPHILS - ABS (DIFF) (BEAKER) (test xkuf=0168) 1.52 K/ L 1.80-8.00 LYMPHOCYTES - ABS (DIFF) (BEAKER) (test vrhy=2497) 0.59 K/ L 1.48-4.50 MONOCYTES - ABS (DIFF) (BEAKER) (test fovy=7325) 0.09 K/ L 0.00-1.30 TOTAL COUNTED (BEAKER) (test xwax=2897) 100 WBC MORPHOLOGY (BEAKER) (test xete=444) Normal PLT MORPHOLOGY (BEAKER) (test nkqq=729) Normal RBC MORPHOLOGY (BEAKER) (test kgyv=677) Normal COMPREHENSIVE METABOLIC [id number] 06:39:00 Test Item Value Reference Range Comments TOTAL PROTEIN (BEAKER) 6.8 gm/dL 6.0-8.5 (test zarr=321) ALBUMIN (BEAKER) (test 3.7 g/dL 3.5-5.0 gzbg=4087) ALKALINE PHOSPHATASE 111 U/L 30-115 (BEAKER) (test qtuj=538) BILIRUBIN TOTAL (BEAKER) 0.3 mg/dL 0.1-1.2 (test rrfy=038) SODIUM (BEAKER) (test 138 meq/L 135-148 ihor=119) POTASSIUM (BEAKER) (test 3.9 meq/L 3.6-5.5 pyxn=409) CHLORIDE (BEAKER) (test 102 meq/L 98-106 xekr=109) CO2 (BEAKER) (test 28 meq/L 20-29 hjko=959) BLOOD UREA NITROGEN 9 mg/dL 10-26 (BEAKER) (test tczw=133) CREATININE (BEAKER) (test 0.70 mg/dL 0.50-1.20 xhfw=915) GLUCOSE RANDOM (BEAKER) 85 mg/dL 70-110 (test aeyq=836) CALCIUM (BEAKER) (test 9.1 mg/dL 8.5-10.5 iqbh=098) AST (SGOT) (BEAKER) (test 141 U/L 5-40 kybd=878) ALT (SGPT) (BEAKER) (test 276 U/L 5-50 dvwd=262) EGFR (BEAKER) (test 88 mL/min/1.73 sq m ESTIMATED GFR IS NOT test=2935) ACCURATE CREATININE CLEARANCE IN PREDICTING GLOMERULAR FILTRATION RATE. ESTIMATED GFR IS NOT APPLICABLE FOR DIALYSIS PATIENTS. CBC W/PLT COUNT & AUTO [id number] 06:22:00 Test Item Value Reference Range Comments WHITE BLOOD CELL COUNT (BEAKER) (test zdkm=985) 2.2 K/ L 4.0-10.0 RED BLOOD CELL COUNT (BEAKER) (test iozi=987) 3.12 M/ L 4.00-5.00 HEMOGLOBIN (BEAKER) (test jega=699) 9.7 GM/DL 12.0-15.0 HEMATOCRIT (BEAKER) (test kcwx=647) 28.5 % 36.0-45.0 MEAN CORPUSCULAR VOLUME (BEAKER) (test zpfr=664) 91.2 fL 82.0-99.0 MEAN CORPUSCULAR HEMOGLOBIN (BEAKER) (test 31.2 pg 27.0-33.0 zxmn=131) MEAN CORPUSCULAR HEMOGLOBIN CONC (BEAKER) (test 34.2 GM/DL 32.0-36.0 gbty=625) RED CELL DISTRIBUTION WIDTH (BEAKER) (test 12.4 % 10.3-14.2 dqss=540) PLATELET COUNT (BEAKER) (test jlvc=973) 173 K/CU MM 150-430 MEAN PLATELET VOLUME (BEAKER) (test hyom=373) 7.6 fL 6.5-10.5 NUCLEATED RED BLOOD CELLS (BEAKER) (test 0 /100 WBC 0-0 madw=978) HEPATIC FUNCTION [id number] 16:17:00 Test Item Value Reference Range Comments TOTAL PROTEIN (BEAKER) (test pmvz=068) 6.3 gm/dL 6.0-8.5 ALBUMIN (BEAKER) (test mckp=2816) 3.5 g/dL 3.5-5.0 BILIRUBIN TOTAL (BEAKER) (test azfl=091) 0.3 mg/dL 0.1-1.2 BILIRUBIN DIRECT (BEAKER) (test nzgr=849) 0.2 mg/dL 0.0-0.4 ALKALINE PHOSPHATASE (BEAKER) (test qccr=608) 106 U/L 30-115 AST (SGOT) (BEAKER) (test emix=396) 208 U/L 5-40 ALT (SGPT) (BEAKER) (test yvqa=891) 286 U/L 5-50 CBC W/PLT COUNT & AUTO [id number] 06:13:00 Test Item Value Reference Range Comments WHITE BLOOD CELL COUNT (BEAKER) (test urab=803) 2.9 K/ L 4.0-10.0 RED BLOOD CELL COUNT (BEAKER) (test ccoc=045) 3.10 M/ L 4.00-5.00 HEMOGLOBIN (BEAKER) (test ovor=840) 9.7 GM/DL 12.0-15.0 HEMATOCRIT (BEAKER) (test saio=243) 28.3 % 36.0-45.0 MEAN CORPUSCULAR VOLUME (BEAKER) (test dwic=379) 91.2 fL 82.0-99.0 MEAN CORPUSCULAR HEMOGLOBIN (BEAKER) (test 31.2 pg 27.0-33.0 gdud=742) MEAN CORPUSCULAR HEMOGLOBIN CONC (BEAKER) (test 34.3 GM/DL 32.0-36.0 btho=935) RED CELL DISTRIBUTION WIDTH (BEAKER) (test 12.3 % 10.3-14.2 puzg=179) PLATELET COUNT (BEAKER) (test oerl=072) 178 K/CU MM 150-430 MEAN PLATELET VOLUME (BEAKER) (test rqoz=413) 7.5 fL 6.5-10.5 NUCLEATED RED BLOOD CELLS (BEAKER) (test 0 /100 WBC 0-0 kmir=259) (MANUAL DIFFERENTIAL)2017-10-21 06:13:00 Test Item Value Reference Range Comments NEUTROPHILS - REL (DIFF) (BEAKER) (test ucqi=3961) 76 % LYMPHOCYTES - REL (DIFF) (BEAKER) (test jdta=9698) 16 % MONOCYTES - REL (DIFF) (BEAKER) (test tmin=2422) 5 % BANDS - REL (DIFF) (BEAKER) (test ebaj=3522) 3 % 0-10 NEUTROPHILS - ABS (DIFF) (BEAKER) (test fkci=0743) 2.20 K/ L 1.80-8.00 LYMPHOCYTES - ABS (DIFF) (BEAKER) (test egeq=0295) 0.46 K/ L 1.48-4.50 MONOCYTES - ABS (DIFF) (BEAKER) (test pbmr=0963) 0.15 K/ L 0.00-1.30 BANDS-ABS (DIFF) (BEAKER) (test ojcx=2067) 0.1 K/ L 0.0-0.8 TOTAL COUNTED (BEAKER) (test afev=1912) 100 BANDS + SEGMENTED NEUTROPHILS (BEAKER) (test 2.29 kqcr=2575) WBC MORPHOLOGY (BEAKER) (test susu=446) Normal PLT MORPHOLOGY (BEAKER) (test bklm=372) Normal RBC MORPHOLOGY (BEAKER) (test ivzq=422) Normal BASIC METABOLIC [id number] 05:25:00 Test Item Value Reference Range Comments SODIUM (BEAKER) (test 139 meq/L 135-148 udde=051) POTASSIUM (BEAKER) (test 3.7 meq/L 3.6-5.5 suwe=035) CHLORIDE (BEAKER) (test 104 meq/L 98-106 eyzh=034) CO2 (BEAKER) (test 27 meq/L 20-29 rxmq=553) BLOOD UREA NITROGEN 12 mg/dL 10-26 (BEAKER) (test kkki=125) CREATININE (BEAKER) (test 0.80 mg/dL 0.50-1.20 cxrx=555) GLUCOSE RANDOM (BEAKER) 77 mg/dL 70-110 (test pobu=087) CALCIUM (BEAKER) (test 8.5 mg/dL 8.5-10.5 aahy=185) EGFR (BEAKER) (test 75 mL/min/1.73 sq m ESTIMATED GFR IS NOT piei=3775) ACCURATE CREATININE CLEARANCE IN PREDICTING GLOMERULAR FILTRATION RATE. ESTIMATED GFR IS NOT APPLICABLE FOR DIALYSIS PATIENTS. CT, BRAIN, WITHOUT [id number] 17:12:00Reason for exam:->headacheIs the patient ?->NoWhat is [...] hydrocephalus. Acute sphenoid sinusitis. Signed: Hailey Lucas [facility]ITAL[facility]ort Verified Date/Time: 10/20/2017 17:12:46 Reading Location: [facility] Radiology Reading Room Electronically signed by: HAILEY LUCAS M.D. on 05:12 PMCT, [id number] 09:17:00Reason for exam:->fever, constipation, abd discomfortIs the [...] MDReport Verified Date/Time: 10/20/2017 09:17:32 Reading Location: [facility] [id number] Ortho Consult Reading Room RAD, CHEST, 2 [id number] 08:54:00Reason for exam:->FEVERFINAL REPORT Chest two views [...] N[facility] Radiology Reading Room HEPATIC FUNCTION [id number] 08:27:00 Test Item Value Reference Range Comments TOTAL PROTEIN (BEAKER) (test tany=883) 8.1 gm/dL 6.0-8.5 ALBUMIN (BEAKER) (test tpoy=2253) 4.4 g/dL 3.5-5.0 BILIRUBIN TOTAL (BEAKER) (test umaw=211) 0.4 mg/dL 0.1-1.2 BILIRUBIN DIRECT (BEAKER) (test kbpz=714) 0.2 mg/dL 0.0-0.4 ALKALINE PHOSPHATASE (BEAKER) (test fjcv=827) 128 U/L 30-115 AST (SGOT) (BEAKER) (test cyyj=879) 88 U/L 5-40 ALT (SGPT) (BEAKER) (test ljyc=185) 281 U/L 5-50 [id number] 08:24:00 Test Item Value Reference Range Comments LIPASE (BEAKER) (test sayi=154) 42 U/L 6-51 BASIC METABOLIC [id number] 08:21:00 Test Item Value Reference Range Comments SODIUM (BEAKER) (test 133 meq/L 135-148 rvjg=626) POTASSIUM (BEAKER) (test 4.1 meq/L 3.6-5.5 vquv=793) CHLORIDE (BEAKER) (test 97 meq/L 98-106 bmja=528) CO2 (BEAKER) (test 26 meq/L 20-29 rich=161) BLOOD UREA NITROGEN 17 mg/dL 10-26 (BEAKER) (test yzga=234) CREATININE (BEAKER) (test 1.00 mg/dL 0.50-1.20 cxdq=877) GLUCOSE RANDOM (BEAKER) 99 mg/dL 70-110 (test find=351) CALCIUM (BEAKER) (test 9.3 mg/dL 8.5-10.5 kmju=350) EGFR (BEAKER) (test 58 mL/min/1.73 sq m ESTIMATED GFR IS NOT uyrk=0039) ACCURATE CREATININE CLEARANCE IN PREDICTING GLOMERULAR FILTRATION RATE. ESTIMATED GFR IS NOT APPLICABLE FOR DIALYSIS PATIENTS. LACTIC ACID, VENOUS, WHOLE [id number] 08:15:00 Test Item Value Reference Range Comments LACTATE BLOOD VENOUS (2) (BEAKER) (test 1.1 mmol/L 0.5-2.2 rhrp=1849) Effective 11/28/2015: Units/Reference Range ChangeNew: 0.5-2.2 mmol/L Previous: 5 -18 mg/dLCBC W/PLT COUNT & AUTO [id number] 08:11:00 Test Item Value Reference Range Comments WHITE BLOOD CELL COUNT (BEAKER) (test upzf=148) 4.7 K/ L 4.0-10.0 RED BLOOD CELL COUNT (BEAKER) (test pcci=923) 3.71 M/ L 4.00-5.00 HEMOGLOBIN (BEAKER) (test xxgw=372) 11.5 GM/DL 12.0-15.0 HEMATOCRIT (BEAKER) (test elru=750) 33.7 % 36.0-45.0 MEAN CORPUSCULAR VOLUME (BEAKER) (test kmyl=539) 91.0 fL 82.0-99.0 MEAN CORPUSCULAR HEMOGLOBIN (BEAKER) (test 31.1 pg 27.0-33.0 odef=238) MEAN CORPUSCULAR HEMOGLOBIN CONC (BEAKER) (test 34.2 GM/DL 32.0-36.0 zmao=595) RED CELL DISTRIBUTION WIDTH (BEAKER) (test 12.3 % 10.3-14.2 abyz=140) PLATELET COUNT (BEAKER) (test slwi=343) 245 K/CU MM 150-430 MEAN PLATELET VOLUME (BEAKER) (test uplm=683) 7.7 fL 6.5-10.5 NUCLEATED RED BLOOD CELLS (BEAKER) (test 0 /100 WBC 0-0 edhl=593) NEUTROPHILS RELATIVE PERCENT (BEAKER) (test 93 % xzfm=085) LYMPHOCYTES RELATIVE PERCENT (BEAKER) (test 2 % cuqk=370) MONOCYTES RELATIVE PERCENT (BEAKER) (test 5 % jbrw=526) EOSINOPHILS RELATIVE PERCENT (BEAKER) (test 0 % jgbt=830) BASOPHILS RELATIVE PERCENT (BEAKER) (test 0 % zduz=398) NEUTROPHILS ABSOLUTE COUNT (BEAKER) (test 4.40 K/ L 1.80-8.00 mijw=630) LYMPHOCYTES ABSOLUTE COUNT (BEAKER) (test 0.10 K/ L 1.48-4.50 ezbl=441) MONOCYTES ABSOLUTE COUNT (BEAKER) (test 0.20 K/ L 0.00-1.30 qohy=770) EOSINOPHILS ABSOLUTE COUNT (BEAKER) (test 0.00 K/ L 0.00-0.50 ftni=308) BASOPHILS ABSOLUTE COUNT (BEAKER) (test 0.00 K/ L 0.00-0.20 jrzn=986) RAPID INFLUENZA A&B [id number] 07:58:00 Test Item Value Reference Range Comments RAPID INFLUENZA A AG (BEAKER) (test Negative Negative, Inconclusive rxtp=1848) RAPID INFLUENZA B AG (BEAKER) (test Negative Negative, Inconclusive ytjm=8676) URINALYSIS W/ [id number] 07:55:00 Test Item Value Reference Range Comments COLOR (BEAKER) (test wych=021) Yellow CLARITY (BEAKER) (test akjl=161) Clear SPECIFIC GRAVITY UA (BEAKER) (test nycr=348) 1.015 1.001-1.035 PH UA (BEAKER) (test oxan=151) 6.0 5.0-8.0 PROTEIN UA (BEAKER) (test ssim=996) Negative Negative GLUCOSE UA (BEAKER) (test kjwf=921) Negative Negative KETONES UA (BEAKER) (test jzjo=193) Negative Negative BILIRUBIN UA (BEAKER) (test pgso=119) Negative Negative BLOOD UA (BEAKER) (test bwqd=837) Trace Negative NITRITE UA (BEAKER) (test axxe=498) Negative Negative LEUKOCYTE ESTERASE UA (BEAKER) (test sfty=724) Negative Negative UROBILINOGEN UA (BEAKER) (test dikf=203) 0.2 mg/dL 0.2-1.0 BACTERIA (BEAKER) (test yxuc=477) Few MUCUS (BEAKER) (test hcyl=7555) Few RBC UA-MANUAL (BEAKER) (test vvxy=5164) 5-10 /HPF WBC UA-MANUAL (BEAKER) (test tchm=8288) 5-10 /HPF SQUAMOUS EPITHELIAL MANUAL (BEAKER) (test <5 /HPF ppnl=9930) SOURCE(BEAKER) (test waip=9215)
[2018-05-24 14:34] VITALS: BP 149/91; TEMP 98.4; O2SAT 100
[2018-05-24 14:35] VITALS: BMI 15.2
== END 2018-05-20 12:05 | disposition home or self-care (01) ==
LOC: DS 07:00
PROVIDERS: ATTEND Internal Medicine
PROC: 30233N1 Transfusion of Nonautologous Red Blood Cells into Peripheral Vein, Percutaneous Approach (ICD-10-PCS; principal; 2018-05-20)
DX: N18.6 End stage renal disease (principal); D63.1 Anemia in chronic kidney disease
CPT/HCPCS: 36415; 36430; 85014; 85018; 86850; 86900; 86901; J1642; P9016

== ENCOUNTER 2018-06-04 02:34 | Inpatient (IN) | payer OTHER ==
--- OUTSIDE RECORDS SUMMARY | 2018-06-04 02:41 | XMS REPORT ---
:1965 [facility] [address] [place] [id number] Care Team Providers Name Role Phone BETTY [...] Value Reference Range Comments IRON (BEAKER) (test yqsz=730) 49 ug/dL 40-160 TOTAL IRON BINDING CAPACITY (BEAKER) (test rohi=998) 216 ug/dL 250-450 IRON % SATURATION (2) (BEAKER) (test okgv=3210) 23 % 20-55 BASIC METABOLIC [id number] 09:16:00 Test Item Value Reference Range Comments SODIUM (BEAKER) (test 133 meq/L 135-148 pnvd=506) POTASSIUM (BEAKER) (test 3.2 meq/L 3.6-5.5 idcw=125) CHLORIDE (BEAKER) (test 97 meq/L 98-106 aaqs=802) CO2 (BEAKER) (test 24 meq/L 20-29 jysn=750) BLOOD UREA NITROGEN 16 mg/dL 10-26 (BEAKER) (test xrof=121) CREATININE (BEAKER) (test 2.18 mg/dL 0.50-1.20 otkr=717) GLUCOSE RANDOM (BEAKER) 130 mg/dL 70-110 (test tgou=252) CALCIUM (BEAKER) (test 8.4 mg/dL 8.5-10.5 zcne=806) EGFR (BEAKER) (test 24 mL/min/1.73 sq m ESTIMATED GFR IS NOT galm=1870) ACCURATE CREATININE CLEARANCE IN PREDICTING GLOMERULAR FILTRATION RATE. ESTIMATED GFR IS NOT APPLICABLE FOR DIALYSIS PATIENTS. [id number] 06:45:00 Test Item Value Reference Range Comments FERRITIN (BEAKER) (test pexv=956) 4333 ng/mL 10-291 CBC W/PLT COUNT & AUTO [id number] 05:54:00 Test Item Value Reference Range Comments WHITE BLOOD CELL COUNT (BEAKER) (test jazs=711) 5.2 K/ L 4.0-10.0 RED BLOOD CELL COUNT (BEAKER) (test phal=209) 2.63 M/ L 4.00-5.00 HEMOGLOBIN (BEAKER) (test eyyf=769) 8.6 GM/DL 12.0-15.5 HEMATOCRIT (BEAKER) (test ikey=078) 27.2 % 36.0-46.0 MEAN CORPUSCULAR VOLUME (BEAKER) (test gqgd=716) 103.4 fL 82.0-99.0 MEAN CORPUSCULAR HEMOGLOBIN (BEAKER) (test 32.7 pg 27.0-33.0 ofgy=507) MEAN CORPUSCULAR HEMOGLOBIN CONC (BEAKER) (test 31.6 GM/DL 32.0-36.0 vxcg=578) RED CELL DISTRIBUTION WIDTH (BEAKER) (test 19.9 % 12.0-15.0 dtli=516) PLATELET COUNT (BEAKER) (test vaaq=382) 135 K/CU MM 150-430 MEAN PLATELET VOLUME (BEAKER) (test yinc=608) 11.1 fL 6.0-11.5 NUCLEATED RED BLOOD CELLS (BEAKER) (test 0 /100 WBC 0-0 eiev=171) NEUTROPHILS RELATIVE PERCENT (BEAKER) (test 80 % dmdj=668) LYMPHOCYTES RELATIVE PERCENT (BEAKER) (test 10 % ngto=521) MONOCYTES RELATIVE PERCENT (BEAKER) (test 8 % pzgq=727) EOSINOPHILS RELATIVE PERCENT (BEAKER) (test 1 % jehw=488) BASOPHILS RELATIVE PERCENT (BEAKER) (test 0 % jspz=620) NEUTROPHILS ABSOLUTE COUNT (BEAKER) (test 4.17 K/ L 1.80-8.00 jsnw=144) LYMPHOCYTES ABSOLUTE COUNT (BEAKER) (test 0.51 K/ L 1.48-4.50 hpas=191) MONOCYTES ABSOLUTE COUNT (BEAKER) (test 0.41 K/ L 0.00-1.30 zzkw=963) EOSINOPHILS ABSOLUTE COUNT (BEAKER) (test 0.04 K/ L 0.00-0.50 vuoa=066) BASOPHILS ABSOLUTE COUNT (BEAKER) (test 0.02 K/ L 0.00-0.20 kgvn=807) IMMATURE GRANULOCYTES-RELATIVE PERCENT (BEAKER) 1 % 0-0 (test mrll=9337) HEMOGLOBIN [id number] 05:50:00 Test Item Value Reference Range Comments HEMOGLOBIN A1C (BEAKER) (test wwmh=751) 4.6 % 4.3-6.1 HEMOGLOBIN [id number] 05:50:00 Test Item Value Reference Range Comments HEMOGLOBIN A1C (BEAKER) (test wuyt=872) 4.6 % 4.3-6.1 TROPONIN [id number] 19:01:00 Test Item Value Reference Range Comments TROPONIN I (BEAKER) (test gurd=369) 0.11 ng/mL 0.00-0.15 Troponin I (TnI) levels [...] acute neurological disease, and persistent tachyarrhythmia.COMPREHENSIVE METABOLIC [id number] 18:55:00 Test Item Value Reference Range Comments TOTAL PROTEIN (BEAKER) 7.9 gm/dL 6.0-8.5 (test chhp=839) ALBUMIN (BEAKER) (test 3.8 g/dL 3.5-5.0 uklr=9951) ALKALINE PHOSPHATASE 73 U/L 30-115 (BEAKER) (test ohzw=182) BILIRUBIN TOTAL (BEAKER) 0.7 mg/dL 0.1-1.2 (test eron=517) SODIUM (BEAKER) (test 130 meq/L 135-148 cvxk=661) POTASSIUM (BEAKER) (test 4.5 meq/L 3.6-5.5 tvvb=255) CHLORIDE (BEAKER) (test 93 meq/L 98-106 odqg=823) CO2 (BEAKER) (test 19 meq/L 20-29 xbtq=534) BLOOD UREA NITROGEN 56 mg/dL 10-26 (BEAKER) (test flah=692) CREATININE (BEAKER) (test 4.74 mg/dL 0.50-1.20 ulkf=235) GLUCOSE RANDOM (BEAKER) 165 mg/dL 70-110 (test txtf=518) CALCIUM (BEAKER) (test 8.7 mg/dL 8.5-10.5 qlzt=239) AST (SGOT) (BEAKER) (test 40 U/L 5-40 asje=831) ALT (SGPT) (BEAKER) (test 55 U/L 5-50 ozmr=711) EGFR (BEAKER) (test 10 mL/min/1.73 sq m ESTIMATED GFR IS NOT dlth=0091) ACCURATE CREATININE CLEARANCE IN PREDICTING GLOMERULAR FILTRATION RATE. ESTIMATED GFR IS NOT APPLICABLE FOR DIALYSIS PATIENTS. CBC W/PLT COUNT & AUTO [id number] 18:32:00 Test Item Value Reference Range Comments WHITE BLOOD CELL COUNT (BEAKER) (test rpjx=144) 6.7 K/ L 4.0-10.0 RED BLOOD CELL COUNT (BEAKER) (test wgqo=240) 2.68 M/ L 4.00-5.00 HEMOGLOBIN (BEAKER) (test tlws=666) 8.6 GM/DL 12.0-15.5 HEMATOCRIT (BEAKER) (test jmoc=131) 27.7 % 36.0-46.0 MEAN CORPUSCULAR VOLUME (BEAKER) (test gutb=205) 103.4 fL 82.0-99.0 MEAN CORPUSCULAR HEMOGLOBIN (BEAKER) (test 32.1 pg 27.0-33.0 rzui=531) MEAN CORPUSCULAR HEMOGLOBIN CONC (BEAKER) (test 31.0 GM/DL 32.0-36.0 krjg=843) RED CELL DISTRIBUTION WIDTH (BEAKER) (test 19.1 % 12.0-15.0 nxny=977) PLATELET COUNT (BEAKER) (test emxo=974) 148 K/CU MM 150-430 MEAN PLATELET VOLUME (BEAKER) (test itaj=746) 10.4 fL 6.0-11.5 NUCLEATED RED BLOOD CELLS (BEAKER) (test 0 /100 WBC 0-0 pnwi=252) NEUTROPHILS RELATIVE PERCENT (BEAKER) (test 84 % gbxz=185) LYMPHOCYTES RELATIVE PERCENT (BEAKER) (test 8 % tyly=470) MONOCYTES RELATIVE PERCENT (BEAKER) (test 7 % nswd=168) EOSINOPHILS RELATIVE PERCENT (BEAKER) (test 0 % xxyg=944) BASOPHILS RELATIVE PERCENT (BEAKER) (test 0 % nbrt=832) NEUTROPHILS ABSOLUTE COUNT (BEAKER) (test 5.59 K/ L 1.80-8.00 aubd=516) LYMPHOCYTES ABSOLUTE COUNT (BEAKER) (test 0.54 K/ L 1.48-4.50 tsss=387) MONOCYTES ABSOLUTE COUNT (BEAKER) (test 0.49 K/ L 0.00-1.30 oltt=572) EOSINOPHILS ABSOLUTE COUNT (BEAKER) (test 0.01 K/ L 0.00-0.50 bbrp=397) BASOPHILS ABSOLUTE COUNT (BEAKER) (test 0.03 K/ L 0.00-0.20 nhzl=741) IMMATURE GRANULOCYTES-RELATIVE PERCENT (BEAKER) 1 % 0-0 (test koyr=6751) MARIA LUISA, THROMBIN [id number] 08:05:00Reason for exam:->Thrombin injection to right SFAFINAL REPORT Ultrasound guided thrombin injection, 04/28/2018. 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 Modality: Fluoroscopy. Sedation: None. Power Reactor Supervisor: Zee. Senior Project Manager: Jorge. Approach: Right inguinal region. Estimated blood [...] Contrast was injected through the micropuncture 4 Ethiopian sheath for a DSA run to evaluate [...] for thrombosis of right femoral pseudoaneurysm. Signed: Rococ Koch MDReport Verified Date/Time: 04/29/2018 08:05:43 Reading Location: [facility] Radiology Reading Room BASIC METABOLIC [id number] 04:40:00 Test Item Value Reference Range Comments SODIUM (BEAKER) (test 131 meq/L 136-145 ufoy=225) POTASSIUM (BEAKER) (test 4.5 meq/L 3.5-5.1 Specimen slightly eskz=470) hemolyzed CHLORIDE (BEAKER) (test 100 meq/L 98-107 vsys=981) CO2 (BEAKER) (test 22 meq/L 22-29 clwl=885) BLOOD UREA NITROGEN 29 mg/dL 7-21 (BEAKER) (test rgry=130) CREATININE (BEAKER) (test 3.52 mg/dL 0.57-1.25 Specimen slightly gtsf=054) hemolyzed GLUCOSE RANDOM (BEAKER) 110 mg/dL 70-105 (test qhzk=765) CALCIUM (BEAKER) (test 8.6 mg/dL 8.4-10.2 fewa=079) EGFR (BEAKER) (test 14 mL/min/1.73 sq m ESTIMATED GFR IS NOT aahb=0445) ACCURATE CREATININE CLEARANCE IN PREDICTING GLOMERULAR FILTRATION RATE. ESTIMATED GFR IS NOT APPLICABLE FOR DIALYSIS PATIENTS. [id number] 04:37:00 Test Item Value Reference Range Comments MAGNESIUM (BEAKER) (test 2.0 mg/dL 1.6-2.6 Specimen slightly hemolyzed xkuy=969) [id number] 04:37:00 Test Item Value Reference Range Comments PHOSPHORUS (BEAKER) (test 3.1 mg/dL 2.3-4.7 Specimen slightly hemolyzed paxm=053) CBC W/PLT COUNT & AUTO [id number] 04:27:00 Test Item Value Reference Range Comments WHITE BLOOD CELL COUNT (BEAKER) (test efkk=627) 4.0 K/ L 3.5-10.5 RED BLOOD CELL COUNT (BEAKER) (test tuww=315) 3.04 M/ L 3.93-5.22 HEMOGLOBIN (BEAKER) (test njhw=105) 9.5 GM/DL 11.2-15.7 HEMATOCRIT (BEAKER) (test eaie=248) 30.9 % 34.1-44.9 MEAN CORPUSCULAR VOLUME (BEAKER) (test vwop=086) 101.6 fL 79.4-94.8 MEAN CORPUSCULAR HEMOGLOBIN (BEAKER) (test 31.3 pg 25.6-32.2 emya=356) MEAN CORPUSCULAR HEMOGLOBIN CONC (BEAKER) (test 30.7 GM/DL 32.2-35.5 hlql=074) RED CELL DISTRIBUTION WIDTH (BEAKER) (test 18.8 % 11.7-14.4 bjii=655) PLATELET COUNT (BEAKER) (test yicp=669) 139 K/CU MM 150-450 MEAN PLATELET VOLUME (BEAKER) (test vyfo=390) 11.3 fL 9.4-12.3 NUCLEATED RED BLOOD CELLS (BEAKER) (test 0 /100 WBC 0-0 pidb=615) NEUTROPHILS RELATIVE PERCENT (BEAKER) (test 81 % oysu=031) LYMPHOCYTES RELATIVE PERCENT (BEAKER) (test 10 % coys=462) MONOCYTES RELATIVE PERCENT (BEAKER) (test 7 % yxfj=001) EOSINOPHILS RELATIVE PERCENT (BEAKER) (test 1 % qyic=388) BASOPHILS RELATIVE PERCENT (BEAKER) (test 1 % agvd=203) NEUTROPHILS ABSOLUTE COUNT (BEAKER) (test 3.25 K/ L 1.56-6.13 xgqa=079) LYMPHOCYTES ABSOLUTE COUNT (BEAKER) (test 0.38 K/ L 1.18-3.74 vjoe=094) MONOCYTES ABSOLUTE COUNT (BEAKER) (test 0.28 K/ L 0.24-0.36 lkrb=596) EOSINOPHILS ABSOLUTE COUNT (BEAKER) (test 0.04 K/ L 0.04-0.36 skee=755) BASOPHILS ABSOLUTE COUNT (BEAKER) (test 0.02 K/ L 0.01-0.08 fnnz=997) IMMATURE GRANULOCYTES-RELATIVE PERCENT (BEAKER) 1 % 0-1 (test jqhj=8025) TROPONIN [id number] 10:14:00 Test Item Value Reference Range Comments TROPONIN I (BEAKER) (test mpox=955) 0.08 ng/mL 0.00-0.03 Troponin I (TnI) levels [...] acute neurological disease, and persistent tachyarrhythmia.BASIC METABOLIC [id number] 07:57:00 Test Item Value Reference Range Comments SODIUM (BEAKER) (test 128 meq/L 136-145 hqnc=598) POTASSIUM (BEAKER) (test 4.7 meq/L 3.5-5.1 xhln=979) CHLORIDE (BEAKER) (test 94 meq/L 98-107 rkcj=617) CO2 (BEAKER) (test 22 meq/L 22-29 xssm=322) BLOOD UREA NITROGEN 49 mg/dL 7-21 (BEAKER) (test vztg=284) CREATININE (BEAKER) (test 4.78 mg/dL 0.57-1.25 dcke=523) GLUCOSE RANDOM (BEAKER) 88 mg/dL 70-105 (test gkqq=221) CALCIUM (BEAKER) (test 8.4 mg/dL 8.4-10.2 nnvy=579) EGFR (BEAKER) (test 10 mL/min/1.73 sq m ESTIMATED GFR IS NOT gish=2595) ACCURATE CREATININE CLEARANCE IN PREDICTING GLOMERULAR FILTRATION RATE. ESTIMATED GFR IS NOT APPLICABLE FOR DIALYSIS PATIENTS. [id number] 07:41:00 Test Item Value Reference Range Comments PHOSPHORUS (BEAKER) (test xgjc=847) 2.8 mg/dL 2.3-4.7 [id number] 07:41:00 Test Item Value Reference Range Comments MAGNESIUM (BEAKER) (test obwq=285) 1.8 mg/dL 1.6-2.6 CBC W/PLT COUNT & AUTO [id number] 07:25:00 Test Item Value Reference Range Comments WHITE BLOOD CELL COUNT (BEAKER) (test zoju=413) 2.9 K/ L 3.5-10.5 RED BLOOD CELL COUNT (BEAKER) (test bnbu=489) 2.89 M/ L 3.93-5.22 HEMOGLOBIN (BEAKER) (test epca=279) 9.1 GM/DL 11.2-15.7 HEMATOCRIT (BEAKER) (test bukp=520) 29.2 % 34.1-44.9 MEAN CORPUSCULAR VOLUME (BEAKER) (test serg=170) 101.0 fL 79.4-94.8 MEAN CORPUSCULAR HEMOGLOBIN (BEAKER) (test 31.5 pg 25.6-32.2 opgq=081) MEAN CORPUSCULAR HEMOGLOBIN CONC (BEAKER) (test 31.2 GM/DL 32.2-35.5 roia=446) RED CELL DISTRIBUTION WIDTH (BEAKER) (test 18.5 % 11.7-14.4 ktek=263) PLATELET COUNT (BEAKER) (test jbxp=860) 110 K/CU MM 150-450 MEAN PLATELET VOLUME (BEAKER) (test lywr=722) 11.3 fL 9.4-12.3 NUCLEATED RED BLOOD CELLS (BEAKER) (test 0 /100 WBC 0-0 pqin=431) NEUTROPHILS RELATIVE PERCENT (BEAKER) (test 77 % nfbm=523) LYMPHOCYTES RELATIVE PERCENT (BEAKER) (test 12 % xzpv=913) MONOCYTES RELATIVE PERCENT (BEAKER) (test 9 % xfkf=210) EOSINOPHILS RELATIVE PERCENT (BEAKER) (test 2 % sshx=004) BASOPHILS RELATIVE PERCENT (BEAKER) (test 0 % zyen=065) NEUTROPHILS ABSOLUTE COUNT (BEAKER) (test 2.20 K/ L 1.56-6.13 omnc=580) LYMPHOCYTES ABSOLUTE COUNT (BEAKER) (test 0.33 K/ L 1.18-3.74 jkyt=063) MONOCYTES ABSOLUTE COUNT (BEAKER) (test 0.26 K/ L 0.24-0.36 hetb=208) EOSINOPHILS ABSOLUTE COUNT (BEAKER) (test 0.05 K/ L 0.04-0.36 sfiw=454) BASOPHILS ABSOLUTE COUNT (BEAKER) (test 0.01 K/ L 0.01-0.08 wdhn=347) IMMATURE GRANULOCYTES-RELATIVE PERCENT (BEAKER) 0 % 0-1 (test mylo=3168) CBC W/PLT COUNT & AUTO [id number] 14:22:00 Test Item Value Reference Range Comments WHITE BLOOD CELL COUNT (BEAKER) (test mram=080) 2.4 K/ L 3.5-10.5 RED BLOOD CELL COUNT (BEAKER) (test zmms=190) 2.75 M/ L 3.93-5.22 HEMOGLOBIN (BEAKER) (test cxuq=259) 8.8 GM/DL 11.2-15.7 HEMATOCRIT (BEAKER) (test nrpu=078) 27.8 % 34.1-44.9 MEAN CORPUSCULAR VOLUME (BEAKER) (test qcvy=707) 101.1 fL 79.4-94.8 MEAN CORPUSCULAR HEMOGLOBIN (BEAKER) (test 32.0 pg 25.6-32.2 lhar=889) MEAN CORPUSCULAR HEMOGLOBIN CONC (BEAKER) (test 31.7 GM/DL 32.2-35.5 xhcr=324) RED CELL DISTRIBUTION WIDTH (BEAKER) (test 18.9 % 11.7-14.4 lxpg=487) PLATELET COUNT (BEAKER) (test fldv=680) 118 K/CU MM 150-450 MEAN PLATELET VOLUME (BEAKER) (test kmjg=475) 10.8 fL 9.4-12.3 NUCLEATED RED BLOOD CELLS (BEAKER) (test 0 /100 WBC 0-0 goms=412) NEUTROPHILS RELATIVE PERCENT (BEAKER) (test 78 % ynqz=710) LYMPHOCYTES RELATIVE PERCENT (BEAKER) (test 11 % gdvl=286) MONOCYTES RELATIVE PERCENT (BEAKER) (test 8 % jbfa=196) EOSINOPHILS RELATIVE PERCENT (BEAKER) (test 2 % zxbq=803) BASOPHILS RELATIVE PERCENT (BEAKER) (test 0 % gqfh=849) NEUTROPHILS ABSOLUTE COUNT (BEAKER) (test 1.86 K/ L 1.56-6.13 snao=499) LYMPHOCYTES ABSOLUTE COUNT (BEAKER) (test 0.27 K/ L 1.18-3.74 pveg=110) MONOCYTES ABSOLUTE COUNT (BEAKER) (test 0.19 K/ L 0.24-0.36 yxon=470) EOSINOPHILS ABSOLUTE COUNT (BEAKER) (test 0.05 K/ L 0.04-0.36 pbmd=908) BASOPHILS ABSOLUTE COUNT (BEAKER) (test 0.01 K/ L 0.01-0.08 dhqc=959) IMMATURE GRANULOCYTES-RELATIVE PERCENT (BEAKER) 0 % 0-1 (test hdiv=1698) BASIC METABOLIC [id number] 07:59:00 Test Item Value Reference Range Comments SODIUM (BEAKER) (test 131 meq/L 136-145 tdvi=430) POTASSIUM (BEAKER) (test 4.0 meq/L 3.5-5.1 isqw=937) CHLORIDE (BEAKER) (test 96 meq/L 98-107 aspv=790) CO2 (BEAKER) (test 23 meq/L 22-29 krkx=094) BLOOD UREA NITROGEN 31 mg/dL 7-21 (BEAKER) (test lfwr=968) CREATININE (BEAKER) (test 3.42 mg/dL 0.57-1.25 kzwq=070) GLUCOSE RANDOM (BEAKER) 94 mg/dL 70-105 (test dzcp=857) CALCIUM (BEAKER) (test 8.8 mg/dL 8.4-10.2 yhci=538) EGFR (BEAKER) (test 14 mL/min/1.73 sq m ESTIMATED GFR IS NOT bujc=7254) ACCURATE CREATININE CLEARANCE IN PREDICTING GLOMERULAR FILTRATION RATE. ESTIMATED GFR IS NOT APPLICABLE FOR DIALYSIS PATIENTS. [id number] 07:53:00 Test Item Value Reference Range Comments PHOSPHORUS (BEAKER) (test zide=149) 3.1 mg/dL 2.3-4.7 [id number] 07:53:00 Test Item Value Reference Range Comments MAGNESIUM (BEAKER) (test zlnl=918) 1.8 mg/dL 1.6-2.6 CBC W/PLT COUNT & AUTO [id number] 07:42:00 Test Item Value Reference Range Comments WHITE BLOOD CELL COUNT (BEAKER) (test mtii=384) 2.6 K/ L 3.5-10.5 RED BLOOD CELL COUNT (BEAKER) (test qvni=421) 2.89 M/ L 3.93-5.22 HEMOGLOBIN (BEAKER) (test yykd=861) 9.0 GM/DL 11.2-15.7 HEMATOCRIT (BEAKER) (test fikq=787) 29.1 % 34.1-44.9 MEAN CORPUSCULAR VOLUME (BEAKER) (test rwou=825) 100.7 fL 79.4-94.8 MEAN CORPUSCULAR HEMOGLOBIN (BEAKER) (test 31.1 pg 25.6-32.2 kuoc=495) MEAN CORPUSCULAR HEMOGLOBIN CONC (BEAKER) (test 30.9 GM/DL 32.2-35.5 xczk=408) RED CELL DISTRIBUTION WIDTH (BEAKER) (test 18.9 % 11.7-14.4 gknk=396) PLATELET COUNT (BEAKER) (test fmjx=508) 106 K/CU MM 150-450 MEAN PLATELET VOLUME (BEAKER) (test esqx=240) 11.1 fL 9.4-12.3 NUCLEATED RED BLOOD CELLS (BEAKER) (test 0 /100 WBC 0-0 evye=671) NEUTROPHILS RELATIVE PERCENT (BEAKER) (test 77 % rsqi=966) LYMPHOCYTES RELATIVE PERCENT (BEAKER) (test 10 % hcnz=389) MONOCYTES RELATIVE PERCENT (BEAKER) (test 10 % ttmx=513) EOSINOPHILS RELATIVE PERCENT (BEAKER) (test 2 % ludz=074) BASOPHILS RELATIVE PERCENT (BEAKER) (test 1 % tdjl=885) NEUTROPHILS ABSOLUTE COUNT (BEAKER) (test 1.97 K/ L 1.56-6.13 gxmu=742) LYMPHOCYTES ABSOLUTE COUNT (BEAKER) (test 0.25 K/ L 1.18-3.74 bnvh=712) MONOCYTES ABSOLUTE COUNT (BEAKER) (test 0.25 K/ L 0.24-0.36 mvem=889) EOSINOPHILS ABSOLUTE COUNT (BEAKER) (test 0.05 K/ L 0.04-0.36 lrwz=815) BASOPHILS ABSOLUTE COUNT (BEAKER) (test 0.02 K/ L 0.01-0.08 bcyv=425) IMMATURE GRANULOCYTES-RELATIVE PERCENT (BEAKER) 1 % 0-1 (test eigv=3170) CBC W/PLT COUNT & AUTO [id number] 05:15:00 Test Item Value Reference Range Comments WHITE BLOOD CELL COUNT (BEAKER) (test rztl=184) 2.8 K/ L 3.5-10.5 RED BLOOD CELL COUNT (BEAKER) (test zkgu=516) 2.86 M/ L 3.93-5.22 HEMOGLOBIN (BEAKER) (test gwdj=502) 9.1 GM/DL 11.2-15.7 HEMATOCRIT (BEAKER) (test dpuc=714) 28.6 % 34.1-44.9 MEAN CORPUSCULAR VOLUME (BEAKER) (test utca=017) 100.0 fL 79.4-94.8 MEAN CORPUSCULAR HEMOGLOBIN (BEAKER) (test 31.8 pg 25.6-32.2 rdgn=029) MEAN CORPUSCULAR HEMOGLOBIN CONC (BEAKER) (test 31.8 GM/DL 32.2-35.5 sykk=202) RED CELL DISTRIBUTION WIDTH (BEAKER) (test 18.8 % 11.7-14.4 fwpt=606) PLATELET COUNT (BEAKER) (test vkcx=692) 80 K/CU MM 150-450 MEAN PLATELET VOLUME (BEAKER) (test mrmd=945) 11.2 fL 9.4-12.3 NUCLEATED RED BLOOD CELLS (BEAKER) (test 0 /100 WBC 0-0 lszn=728) NEUTROPHILS RELATIVE PERCENT (BEAKER) (test 76 % cqiq=447) LYMPHOCYTES RELATIVE PERCENT (BEAKER) (test 13 % eezi=497) MONOCYTES RELATIVE PERCENT (BEAKER) (test 8 % mokw=064) EOSINOPHILS RELATIVE PERCENT (BEAKER) (test 1 % cfyb=347) BASOPHILS RELATIVE PERCENT (BEAKER) (test 0 % mkan=082) NEUTROPHILS ABSOLUTE COUNT (BEAKER) (test 2.13 K/ L 1.56-6.13 mgzl=580) LYMPHOCYTES ABSOLUTE COUNT (BEAKER) (test 0.37 K/ L 1.18-3.74 nbia=511) MONOCYTES ABSOLUTE COUNT (BEAKER) (test qnnz=631) 0.23 K/ L 0.24-0.36 EOSINOPHILS ABSOLUTE COUNT (BEAKER) (test 0.04 K/ L 0.04-0.36 ezyr=544) BASOPHILS ABSOLUTE COUNT (BEAKER) (test ldhn=432) 0.01 K/ L 0.01-0.08 IMMATURE GRANULOCYTES-RELATIVE PERCENT (BEAKER) 0 % 0-1 (test lewf=8050) BASIC METABOLIC [id number] 04:41:00 Test Item Value Reference Range Comments SODIUM (BEAKER) (test 129 meq/L 136-145 vmpp=272) POTASSIUM (BEAKER) (test 5.0 meq/L 3.5-5.1 lhtx=411) CHLORIDE (BEAKER) (test 96 meq/L 98-107 pcsc=834) CO2 (BEAKER) (test 20 meq/L 22-29 feug=704) BLOOD UREA NITROGEN 65 mg/dL 7-21 (BEAKER) (test qmvj=853) CREATININE (BEAKER) (test 5.28 mg/dL 0.57-1.25 ogqu=472) GLUCOSE RANDOM (BEAKER) 101 mg/dL 70-105 (test fiod=089) CALCIUM (BEAKER) (test 9.0 mg/dL 8.4-10.2 dljb=327) EGFR (BEAKER) (test 9 mL/min/1.73 sq m ESTIMATED GFR IS NOT kpie=4572) ACCURATE CREATININE CLEARANCE IN PREDICTING GLOMERULAR FILTRATION RATE. ESTIMATED GFR IS NOT APPLICABLE FOR DIALYSIS PATIENTS. [id number] 04:39:00 Test Item Value Reference Range Comments PHOSPHORUS (BEAKER) (test kmhl=676) 3.4 mg/dL 2.3-4.7 [id number] 04:39:00 Test Item Value Reference Range Comments MAGNESIUM (BEAKER) (test ctfa=570) 2.0 mg/dL 1.6-2.6 [id number] 23:54:00 Test Item Value Reference Range Comments HAPTOGLOBIN (BEAKER) (test qjkd=262) < mg/dL 14-258 CBC W/PLT COUNT & AUTO [id number] 23:39:00 Test Item Value Reference Range Comments WHITE BLOOD CELL COUNT (BEAKER) (test uyck=847) 3.3 K/ L 3.5-10.5 RED BLOOD CELL COUNT (BEAKER) (test jpto=875) 3.06 M/ L 3.93-5.22 HEMOGLOBIN (BEAKER) (test xfcu=298) 9.6 GM/DL 11.2-15.7 HEMATOCRIT (BEAKER) (test uljg=470) 30.3 % 34.1-44.9 MEAN CORPUSCULAR VOLUME (BEAKER) (test wbep=031) 99.0 fL 79.4-94.8 MEAN CORPUSCULAR HEMOGLOBIN (BEAKER) (test 31.4 pg 25.6-32.2 gkoi=660) MEAN CORPUSCULAR HEMOGLOBIN CONC (BEAKER) (test 31.7 GM/DL 32.2-35.5 xulq=991) RED CELL DISTRIBUTION WIDTH (BEAKER) (test 18.8 % 11.7-14.4 qxjx=909) PLATELET COUNT (BEAKER) (test wwvx=691) 98 K/CU MM 150-450 MEAN PLATELET VOLUME (BEAKER) (test ijxj=904) 11.5 fL 9.4-12.3 NUCLEATED RED BLOOD CELLS (BEAKER) (test 0 /100 WBC 0-0 okns=281) NEUTROPHILS RELATIVE PERCENT (BEAKER) (test 79 % riaw=768) LYMPHOCYTES RELATIVE PERCENT (BEAKER) (test 12 % smne=995) MONOCYTES RELATIVE PERCENT (BEAKER) (test 7 % qzgq=242) EOSINOPHILS RELATIVE PERCENT (BEAKER) (test 1 % nebf=415) BASOPHILS RELATIVE PERCENT (BEAKER) (test 1 % iwsm=110) NEUTROPHILS ABSOLUTE COUNT (BEAKER) (test 2.64 K/ L 1.56-6.13 gbbt=255) LYMPHOCYTES ABSOLUTE COUNT (BEAKER) (test 0.40 K/ L 1.18-3.74 mhld=573) MONOCYTES ABSOLUTE COUNT (BEAKER) (test wfnc=453) 0.22 K/ L 0.24-0.36 EOSINOPHILS ABSOLUTE COUNT (BEAKER) (test 0.04 K/ L 0.04-0.36 cfxv=693) BASOPHILS ABSOLUTE COUNT (BEAKER) (test oiox=542) 0.02 K/ L 0.01-0.08 IMMATURE GRANULOCYTES-RELATIVE PERCENT (BEAKER) 0 % 0-1 (test kwun=6845) HEPATITIS B SURFACE [id number] 21:44:00 Test Item Value Reference Range Comments HEPATITIS B SURFACE ANTIGEN (2) (BEAKER) (test Nonreactive Nonreactive euwv=2360) CBC W/PLT COUNT & AUTO [id number] 21:03:00 Test Item Value Reference Range Comments WHITE BLOOD CELL COUNT (BEAKER) (test ofih=444) 3.3 K/ L 3.5-10.5 RED BLOOD CELL COUNT (BEAKER) (test tghg=449) 2.96 M/ L 3.93-5.22 HEMOGLOBIN (BEAKER) (test ypfh=778) 9.4 GM/DL 11.2-15.7 HEMATOCRIT (BEAKER) (test urgb=176) 29.7 % 34.1-44.9 MEAN CORPUSCULAR VOLUME (BEAKER) (test dpqd=058) 100.3 fL 79.4-94.8 MEAN CORPUSCULAR HEMOGLOBIN (BEAKER) (test 31.8 pg 25.6-32.2 koch=316) MEAN CORPUSCULAR HEMOGLOBIN CONC (BEAKER) (test 31.6 GM/DL 32.2-35.5 yjum=094) RED CELL DISTRIBUTION WIDTH (BEAKER) (test 19.0 % 11.7-14.4 ygdo=870) PLATELET COUNT (BEAKER) (test vwww=705) 100 K/CU MM 150-450 MEAN PLATELET VOLUME (BEAKER) (test rtwy=305) 10.2 fL 9.4-12.3 NUCLEATED RED BLOOD CELLS (BEAKER) (test 0 /100 WBC 0-0 vvuy=035) NEUTROPHILS RELATIVE PERCENT (BEAKER) (test 80 % mkau=424) LYMPHOCYTES RELATIVE PERCENT (BEAKER) (test 10 % xjyd=731) MONOCYTES RELATIVE PERCENT (BEAKER) (test 8 % zaey=831) EOSINOPHILS RELATIVE PERCENT (BEAKER) (test 1 % dnry=201) BASOPHILS RELATIVE PERCENT (BEAKER) (test 0 % fbss=623) NEUTROPHILS ABSOLUTE COUNT (BEAKER) (test 2.59 K/ L 1.56-6.13 vzta=873) LYMPHOCYTES ABSOLUTE COUNT (BEAKER) (test 0.33 K/ L 1.18-3.74 cbvx=362) MONOCYTES ABSOLUTE COUNT (BEAKER) (test 0.26 K/ L 0.24-0.36 ttfg=325) EOSINOPHILS ABSOLUTE COUNT (BEAKER) (test 0.04 K/ L 0.04-0.36 jkrx=840) BASOPHILS ABSOLUTE COUNT (BEAKER) (test 0.01 K/ L 0.01-0.08 icfa=770) IMMATURE GRANULOCYTES-RELATIVE PERCENT (BEAKER) 1 % 0-1 (test elmv=9724) PERIPHERAL BLOOD SMEAR - HOLD [id number] 16:54:00 Test Item Value Reference Range Comments PERIPHERAL SMEAR SAVE (BEAKER) (test woeu=0392) saved LACTATE DEHYDROGENASE (LDH)[id number] 16:40:00 Test Item Value Reference Range Comments LACTATE DEHYDROGENASE (BEAKER) (test zfkf=123) 332 U/L 125-220 CBC W/PLT COUNT & AUTO [id number] 16:27:00 Test Item Value Reference Range Comments WHITE BLOOD CELL COUNT (BEAKER) (test xvvy=449) 2.7 K/ L 3.5-10.5 RED BLOOD CELL COUNT (BEAKER) (test dgua=527) 3.15 M/ L 3.93-5.22 HEMOGLOBIN (BEAKER) (test mrzc=085) 10.0 GM/DL 11.2-15.7 HEMATOCRIT (BEAKER) (test sgch=430) 31.5 % 34.1-44.9 MEAN CORPUSCULAR VOLUME (BEAKER) (test jmxn=026) 100.0 fL 79.4-94.8 MEAN CORPUSCULAR HEMOGLOBIN (BEAKER) (test 31.7 pg 25.6-32.2 xdux=896) MEAN CORPUSCULAR HEMOGLOBIN CONC (BEAKER) (test 31.7 GM/DL 32.2-35.5 qjev=344) RED CELL DISTRIBUTION WIDTH (BEAKER) (test 19.0 % 11.7-14.4 brih=699) PLATELET COUNT (BEAKER) (test nopn=020) 96 K/CU MM 150-450 MEAN PLATELET VOLUME (BEAKER) (test pobk=533) 9.8 fL 9.4-12.3 NUCLEATED RED BLOOD CELLS (BEAKER) (test 0 /100 WBC 0-0 rsqo=157) NEUTROPHILS RELATIVE PERCENT (BEAKER) (test 76 % tzfi=132) LYMPHOCYTES RELATIVE PERCENT (BEAKER) (test 12 % icnp=352) MONOCYTES RELATIVE PERCENT (BEAKER) (test 10 % etkq=640) EOSINOPHILS RELATIVE PERCENT (BEAKER) (test 1 % mklg=632) BASOPHILS RELATIVE PERCENT (BEAKER) (test 1 % lpgo=010) NEUTROPHILS ABSOLUTE COUNT (BEAKER) (test 2.02 K/ L 1.56-6.13 mnoz=218) LYMPHOCYTES ABSOLUTE COUNT (BEAKER) (test 0.31 K/ L 1.18-3.74 iyxp=398) MONOCYTES ABSOLUTE COUNT (BEAKER) (test xvfl=248) 0.27 K/ L 0.24-0.36 EOSINOPHILS ABSOLUTE COUNT (BEAKER) (test 0.03 K/ L 0.04-0.36 kzqh=067) BASOPHILS ABSOLUTE COUNT (BEAKER) (test aiuf=464) 0.02 K/ L 0.01-0.08 IMMATURE GRANULOCYTES-RELATIVE PERCENT (BEAKER) 1 % 0-1 (test zcby=4413) [id number] 07:39:00 Test Item Value Reference Range Comments PHOSPHORUS (BEAKER) (test qfcf=092) 3.1 mg/dL 2.3-4.7 [id number] 07:39:00 Test Item Value Reference Range Comments MAGNESIUM (BEAKER) (test diuk=192) 2.0 mg/dL 1.6-2.6 BASIC METABOLIC [id number] 07:39:00 Test Item Value Reference Range Comments SODIUM (BEAKER) (test 132 meq/L 136-145 dftz=223) POTASSIUM (BEAKER) (test 4.2 meq/L 3.5-5.1 lcll=213) CHLORIDE (BEAKER) (test 97 meq/L 98-107 swlp=535) CO2 (BEAKER) (test 23 meq/L 22-29 xhyl=325) BLOOD UREA NITROGEN 42 mg/dL 7-21 (BEAKER) (test xdnc=141) CREATININE (BEAKER) (test 3.49 mg/dL 0.57-1.25 fssl=730) GLUCOSE RANDOM (BEAKER) 84 mg/dL 70-105 (test pexf=367) CALCIUM (BEAKER) (test 9.0 mg/dL 8.4-10.2 qtjt=618) EGFR (BEAKER) (test 14 mL/min/1.73 sq m ESTIMATED GFR IS NOT beqj=9885) ACCURATE CREATININE CLEARANCE IN PREDICTING GLOMERULAR FILTRATION RATE. ESTIMATED GFR IS NOT APPLICABLE FOR DIALYSIS PATIENTS. CBC W/PLT COUNT & AUTO [id number] 07:24:00 Test Item Value Reference Range Comments WHITE BLOOD CELL COUNT (BEAKER) (test phzs=662) 2.8 K/ L 3.5-10.5 RED BLOOD CELL COUNT (BEAKER) (test vanv=186) 2.96 M/ L 3.93-5.22 HEMOGLOBIN (BEAKER) (test ymms=547) 9.5 GM/DL 11.2-15.7 HEMATOCRIT (BEAKER) (test ckne=566) 29.8 % 34.1-44.9 MEAN CORPUSCULAR VOLUME (BEAKER) (test lzpe=998) 100.7 fL 79.4-94.8 MEAN CORPUSCULAR HEMOGLOBIN (BEAKER) (test 32.1 pg 25.6-32.2 juzv=640) MEAN CORPUSCULAR HEMOGLOBIN CONC (BEAKER) (test 31.9 GM/DL 32.2-35.5 bceg=604) RED CELL DISTRIBUTION WIDTH (BEAKER) (test 19.3 % 11.7-14.4 itfg=347) PLATELET COUNT (BEAKER) (test weco=800) 95 K/CU MM 150-450 MEAN PLATELET VOLUME (BEAKER) (test gytu=662) 11.3 fL 9.4-12.3 NUCLEATED RED BLOOD CELLS (BEAKER) (test 0 /100 WBC 0-0 drrh=380) NEUTROPHILS RELATIVE PERCENT (BEAKER) (test 77 % selk=758) LYMPHOCYTES RELATIVE PERCENT (BEAKER) (test 12 % uxph=672) MONOCYTES RELATIVE PERCENT (BEAKER) (test 9 % yxdy=958) EOSINOPHILS RELATIVE PERCENT (BEAKER) (test 1 % tfxy=282) BASOPHILS RELATIVE PERCENT (BEAKER) (test 0 % oanf=175) NEUTROPHILS ABSOLUTE COUNT (BEAKER) (test 2.16 K/ L 1.56-6.13 ecjl=945) LYMPHOCYTES ABSOLUTE COUNT (BEAKER) (test 0.32 K/ L 1.18-3.74 kynm=408) MONOCYTES ABSOLUTE COUNT (BEAKER) (test vmzq=684) 0.26 K/ L 0.24-0.36 EOSINOPHILS ABSOLUTE COUNT (BEAKER) (test 0.03 K/ L 0.04-0.36 kqno=740) BASOPHILS ABSOLUTE COUNT (BEAKER) (test ykkw=576) 0.01 K/ L 0.01-0.08 IMMATURE GRANULOCYTES-RELATIVE PERCENT (BEAKER) 0 % 0-1 (test heye=5393) BLOOD [id number] 06:00:00 Test Item Value Reference Range Comments CULTURE (BEAKER) (test kzdn=3768) No growth in 5 days ANG, CV ACCESS, [id number] 17:46:00Reason for exam:->TDC placement for outpatient HDFINAL REPORT Tunneled dialysis catheter insertion. History: Renal failure. Modality: Sonography and fluoroscopy. Sedation: Versed 0.5 mg and fentanyl 25 mcg was given intravenously for conscious sedation. Vital signs were monitored throughout the procedure by a nurse, and remained stable. Physician intra-service time was 15 minutes. Power Reactor Supervisor: Lynette. Senior Project Manager: None. Approach: Right internal jugular vein Estimatedblood [...] needle into the right atrium. A 4 Ethiopian micropuncture sheath was placed. A subcutaneous tunnel was created in the right anterior chest wall by blunt dissection. A 19 cm 15.5 Ethiopian Duraflow 2catheter was brought through the tunnel. [...] Funkort Verified Date/Time: 04/01/2018 17:46:56 Reading Location: [facility] B1 P048 Angio Body Reading Room TISSUE [id number] 11:52:00Surgical Pathology Report Case: [id number] Authorizing Provider: Michelle Ram MD Collected: 03/24/2018 1253 Ordering Location: [address] Received: 03/24/2018 1254 Service Pathologist: Dennise Jo MD Specimen: Kidney, Left, Left kidney needle biopsy KIDNEY, LEFT, NEEDLE BIOPSIES- ACUTE THROMBOTIC MICROANGIOPATHY- MODERATE INTERSTITIAL FIBROSIS AND TUBULAR ATROPHY ( ~40%) Signing Pathologist Direct Phone Line: [phone] signed by Dennise Jo MD on 03/31/2018 [...] Dr. Vital on 03/25/2018 at 10.15 am. [address], [address] X3, 76444, 81011 x8, [id number] renal failure evaluationNative left kidney biopsyThe specimen [...] with extensive effacement of foot processes.BASIC METABOLIC [id number] 06:14:00 Test Item Value Reference Range Comments SODIUM (BEAKER) (test 133 meq/L 136-145 hnom=702) POTASSIUM (BEAKER) (test 4.6 meq/L 3.5-5.1 qqmt=535) CHLORIDE (BEAKER) (test 99 meq/L 98-107 pdde=361) CO2 (BEAKER) (test 24 meq/L 22-29 wmvo=120) BLOOD UREA NITROGEN 45 mg/dL 7-21 (BEAKER) (test dhux=100) CREATININE (BEAKER) (test 4.49 mg/dL 0.57-1.25 glpx=976) GLUCOSE RANDOM (BEAKER) 95 mg/dL 70-105 (test dofs=613) CALCIUM (BEAKER) (test 8.1 mg/dL 8.4-10.2 auoi=569) EGFR (BEAKER) (test 10 mL/min/1.73 sq m ESTIMATED GFR IS NOT cnzh=3228) ACCURATE CREATININE CLEARANCE IN PREDICTING GLOMERULAR FILTRATION RATE. ESTIMATED GFR IS NOT APPLICABLE FOR DIALYSIS PATIENTS. [id number] 06:05:00 Test Item Value Reference Range Comments MAGNESIUM (BEAKER) (test yrms=095) 1.9 mg/dL 1.6-2.6 CBC W/PLT COUNT & AUTO [id number] 05:20:00 Test Item Value Reference Range Comments WHITE BLOOD CELL COUNT (BEAKER) (test bcdx=087) 4.1 K/ L 3.5-10.5 RED BLOOD CELL COUNT (BEAKER) (test fbqk=870) 2.55 M/ L 3.93-5.22 HEMOGLOBIN (BEAKER) (test ebsb=573) 8.0 GM/DL 11.2-15.7 HEMATOCRIT (BEAKER) (test zinw=885) 26.0 % 34.1-44.9 MEAN CORPUSCULAR VOLUME (BEAKER) (test tuxr=143) 102.0 fL 79.4-94.8 MEAN CORPUSCULAR HEMOGLOBIN (BEAKER) (test 31.4 pg 25.6-32.2 vyuo=553) MEAN CORPUSCULAR HEMOGLOBIN CONC (BEAKER) (test 30.8 GM/DL 32.2-35.5 eeob=323) RED CELL DISTRIBUTION WIDTH (BEAKER) (test 18.9 % 11.7-14.4 ehlg=045) PLATELET COUNT (BEAKER) (test hlnk=403) 54 K/CU MM 150-450 MEAN PLATELET VOLUME (BEAKER) (test wgxt=702) 12.9 fL 9.4-12.3 NUCLEATED RED BLOOD CELLS (BEAKER) (test 0 /100 WBC 0-0 hhuk=401) NEUTROPHILS RELATIVE PERCENT (BEAKER) (test 84 % gvhb=613) LYMPHOCYTES RELATIVE PERCENT (BEAKER) (test 8 % fdnj=506) MONOCYTES RELATIVE PERCENT (BEAKER) (test 7 % oejq=621) EOSINOPHILS RELATIVE PERCENT (BEAKER) (test 1 % evuu=621) BASOPHILS RELATIVE PERCENT (BEAKER) (test 0 % uzey=366) NEUTROPHILS ABSOLUTE COUNT (BEAKER) (test 3.45 K/ L 1.56-6.13 fhon=910) LYMPHOCYTES ABSOLUTE COUNT (BEAKER) (test 0.33 K/ L 1.18-3.74 mvxy=084) MONOCYTES ABSOLUTE COUNT (BEAKER) (test aslt=430) 0.28 K/ L 0.24-0.36 EOSINOPHILS ABSOLUTE COUNT (BEAKER) (test 0.03 K/ L 0.04-0.36 aixd=504) BASOPHILS ABSOLUTE COUNT (BEAKER) (test hgdv=207) 0.01 K/ L 0.01-0.08 IMMATURE GRANULOCYTES-RELATIVE PERCENT (BEAKER) 1 % 0-1 (test xnsp=3138) POCT-GLUCOSE [id number] 18:43:00 Test Item Value Reference Range Comments POC-GLUCOSE METER (BEAKER) 121 mg/dL 70-110 TESTED AT [address] (test xepj=7754) [facility] [address] BASIC METABOLIC [id number] 06:46:00 Test Item Value Reference Range Comments SODIUM (BEAKER) (test 133 meq/L 136-145 iawa=138) POTASSIUM (BEAKER) (test 4.1 meq/L 3.5-5.1 uika=528) CHLORIDE (BEAKER) (test 98 meq/L 98-107 evoz=328) CO2 (BEAKER) (test 25 meq/L 22-29 lnxv=825) BLOOD UREA NITROGEN 27 mg/dL 7-21 (BEAKER) (test gqov=352) CREATININE (BEAKER) (test 2.91 mg/dL 0.57-1.25 sfqf=590) GLUCOSE RANDOM (BEAKER) 92 mg/dL 70-105 (test wdie=499) CALCIUM (BEAKER) (test 8.3 mg/dL 8.4-10.2 iovz=069) EGFR (BEAKER) (test 17 mL/min/1.73 sq m ESTIMATED GFR IS NOT unys=3213) ACCURATE CREATININE CLEARANCE IN PREDICTING GLOMERULAR FILTRATION RATE. ESTIMATED GFR IS NOT APPLICABLE FOR DIALYSIS PATIENTS. [id number] 06:34:00 Test Item Value Reference Range Comments MAGNESIUM (BEAKER) (test hsvl=694) 1.9 mg/dL 1.6-2.6 [id number] 06:13:00 Test Item Value Reference Range Comments PROTIME (BEAKER) (test zgyo=165) 16.7 seconds 11.7-14.7 INR (BEAKER) (test lwfj=482) 1.4 <=5.9 PARTIAL THROMBOPLASTIN TIME (BEAKER) (test 39.8 seconds 22.5-36.0 sbqa=187) RECOMMENDED COUMADIN/WARFARIN INR THERAPY RANGESSTANDARD DOSE: 2.0 - 3.0 Includes: PROPHYLAXIS forvenous thrombosis, systemic embolization; TREATMENT for venous thrombosis and/or pulmonary embolus.HIGH RISK: Target INR is 2.5-3.5 for patients with mechanical heart valves.CBC W/PLT COUNT & AUTO [id number] 06:11:00 Test Item Value Reference Range Comments WHITE BLOOD CELL COUNT (BEAKER) (test phyi=555) 3.2 K/ L 3.5-10.5 RED BLOOD CELL COUNT (BEAKER) (test juge=452) 2.51 M/ L 3.93-5.22 HEMOGLOBIN (BEAKER) (test klrh=130) 8.0 GM/DL 11.2-15.7 HEMATOCRIT (BEAKER) (test jgrb=877) 25.7 % 34.1-44.9 MEAN CORPUSCULAR VOLUME (BEAKER) (test qftr=787) 102.4 fL 79.4-94.8 MEAN CORPUSCULAR HEMOGLOBIN (BEAKER) (test 31.9 pg 25.6-32.2 xmkz=579) MEAN CORPUSCULAR HEMOGLOBIN CONC (BEAKER) (test 31.1 GM/DL 32.2-35.5 tncm=803) RED CELL DISTRIBUTION WIDTH (BEAKER) (test 19.3 % 11.7-14.4 xedy=928) PLATELET COUNT (BEAKER) (test niet=894) 49 K/CU MM 150-450 MEAN PLATELET VOLUME (BEAKER) (test olck=276) 12.6 fL 9.4-12.3 NUCLEATED RED BLOOD CELLS (BEAKER) (test 0 /100 WBC 0-0 yyhz=713) NEUTROPHILS RELATIVE PERCENT (BEAKER) (test 82 % rwbv=302) LYMPHOCYTES RELATIVE PERCENT (BEAKER) (test 9 % jcwi=864) MONOCYTES RELATIVE PERCENT (BEAKER) (test 9 % iazn=216) EOSINOPHILS RELATIVE PERCENT (BEAKER) (test 0 % zsvp=108) BASOPHILS RELATIVE PERCENT (BEAKER) (test 0 % suxj=323) NEUTROPHILS ABSOLUTE COUNT (BEAKER) (test 2.60 K/ L 1.56-6.13 wbvh=874) LYMPHOCYTES ABSOLUTE COUNT (BEAKER) (test 0.29 K/ L 1.18-3.74 hflw=858) MONOCYTES ABSOLUTE COUNT (BEAKER) (test gptw=348) 0.27 K/ L 0.24-0.36 EOSINOPHILS ABSOLUTE COUNT (BEAKER) (test 0.00 K/ L 0.04-0.36 hkvy=952) BASOPHILS ABSOLUTE COUNT (BEAKER) (test zqim=298) 0.01 K/ L 0.01-0.08 IMMATURE GRANULOCYTES-RELATIVE PERCENT (BEAKER) 0 % 0-1 (test adam=5289) BASIC METABOLIC [id number] 07:21:00 Test Item Value Reference Range Comments SODIUM (BEAKER) (test 135 meq/L 136-145 rtpg=007) POTASSIUM (BEAKER) (test 4.1 meq/L 3.5-5.1 ykvu=308) CHLORIDE (BEAKER) (test 102 meq/L 98-107 sbwk=913) CO2 (BEAKER) (test 24 meq/L 22-29 acvi=897) BLOOD UREA NITROGEN 45 mg/dL 7-21 (BEAKER) (test eusl=285) CREATININE (BEAKER) (test 4.55 mg/dL 0.57-1.25 tkur=207) GLUCOSE RANDOM (BEAKER) 106 mg/dL 70-105 (test mryf=615) CALCIUM (BEAKER) (test 7.8 mg/dL 8.4-10.2 bopq=014) EGFR (BEAKER) (test 10 mL/min/1.73 sq m ESTIMATED GFR IS NOT emnz=5043) ACCURATE CREATININE CLEARANCE IN PREDICTING GLOMERULAR FILTRATION RATE. ESTIMATED GFR IS NOT APPLICABLE FOR DIALYSIS PATIENTS. [id number] 07:08:00 Test Item Value Reference Range Comments MAGNESIUM (BEAKER) (test bmlr=931) 1.8 mg/dL 1.6-2.6 CBC W/PLT COUNT & AUTO [id number] 06:53:00 Test Item Value Reference Range Comments WHITE BLOOD CELL COUNT (BEAKER) (test vidn=577) 2.9 K/ L 3.5-10.5 RED BLOOD CELL COUNT (BEAKER) (test loyw=222) 2.45 M/ L 3.93-5.22 HEMOGLOBIN (BEAKER) (test lxnb=352) 8.0 GM/DL 11.2-15.7 HEMATOCRIT (BEAKER) (test tidh=685) 25.1 % 34.1-44.9 MEAN CORPUSCULAR VOLUME (BEAKER) (test nenk=469) 102.4 fL 79.4-94.8 MEAN CORPUSCULAR HEMOGLOBIN (BEAKER) (test 32.7 pg 25.6-32.2 jnyr=302) MEAN CORPUSCULAR HEMOGLOBIN CONC (BEAKER) (test 31.9 GM/DL 32.2-35.5 jzfy=867) RED CELL DISTRIBUTION WIDTH (BEAKER) (test 19.7 % 11.7-14.4 ecdd=035) PLATELET COUNT (BEAKER) (test hmlu=407) 41 K/CU MM 150-450 MEAN PLATELET VOLUME (BEAKER) (test vnin=800) 11.7 fL 9.4-12.3 NUCLEATED RED BLOOD CELLS (BEAKER) (test 0 /100 WBC 0-0 txyl=711) NEUTROPHILS RELATIVE PERCENT (BEAKER) (test 75 % nauf=678) LYMPHOCYTES RELATIVE PERCENT (BEAKER) (test 13 % alfk=485) MONOCYTES RELATIVE PERCENT (BEAKER) (test 11 % infx=839) EOSINOPHILS RELATIVE PERCENT (BEAKER) (test 0 % ftbz=796) BASOPHILS RELATIVE PERCENT (BEAKER) (test 0 % kmcj=303) NEUTROPHILS ABSOLUTE COUNT (BEAKER) (test 2.13 K/ L 1.56-6.13 ecme=644) LYMPHOCYTES ABSOLUTE COUNT (BEAKER) (test 0.38 K/ L 1.18-3.74 rdsx=438) MONOCYTES ABSOLUTE COUNT (BEAKER) (test hlae=505) 0.32 K/ L 0.24-0.36 EOSINOPHILS ABSOLUTE COUNT (BEAKER) (test 0.01 K/ L 0.04-0.36 vmmd=667) BASOPHILS ABSOLUTE COUNT (BEAKER) (test grzv=509) 0.01 K/ L 0.01-0.08 IMMATURE GRANULOCYTES-RELATIVE PERCENT (BEAKER) 0 % 0-1 (test oxzu=9233) RAD, CHEST, 1 VIEW, NON [id number] 22:19:00Reason for exam:-> pneumoniaShould this be performed [...] MDReport Verified Date/Time: 03/28/2018 22:19:58 Reading Location: [address] Reading Room [id number] 05:56: 00 Test Item Value Reference Range Comments MAGNESIUM (BEAKER) (test xsth=477) 1.9 mg/dL 1.6-2.6 COMPREHENSIVE METABOLIC [id number] 03:24:00 Test Item Value Reference Range Comments TOTAL PROTEIN (BEAKER) 5.9 gm/dL 6.0-8.3 (test fwwt=652) ALBUMIN (BEAKER) (test 2.5 g/dL 3.5-5.0 vtcy=4922) ALKALINE PHOSPHATASE 42 U/L 40-150 (BEAKER) (test pkvn=361) BILIRUBIN TOTAL (BEAKER) 1.0 mg/dL 0.2-1.2 (test xdjk=267) SODIUM (BEAKER) (test 135 meq/L 136-145 wykt=170) POTASSIUM (BEAKER) (test 4.1 meq/L 3.5-5.1 twvv=317) CHLORIDE (BEAKER) (test 102 meq/L 98-107 gcgd=970) CO2 (BEAKER) (test 26 meq/L 22-29 cnvr=913) BLOOD UREA NITROGEN 24 mg/dL 7-21 (BEAKER) (test mgji=070) CREATININE (BEAKER) (test 3.02 mg/dL 0.57-1.25 uand=954) GLUCOSE RANDOM (BEAKER) 121 mg/dL 70-105 (test xjbl=231) CALCIUM (BEAKER) (test 8.2 mg/dL 8.4-10.2 felt=988) AST (SGOT) (BEAKER) (test 35 U/L 5-34 rmsl=715) ALT (SGPT) (BEAKER) (test 13 U/L 6-55 bhvo=618) EGFR (BEAKER) (test 16 mL/min/1.73 sq m ESTIMATED GFR IS NOT cdlb=0557) ACCURATE CREATININE CLEARANCE IN PREDICTING GLOMERULAR FILTRATION RATE. ESTIMATED GFR IS NOT APPLICABLE FOR DIALYSIS PATIENTS. LACTIC ACID, VENOUS, WHOLE [id number] 03:15:00 Test Item Value Reference Range Comments LACTATE BLOOD VENOUS (2) (BEAKER) (test 1.1 mmol/L 0.5-2.2 bjdm=0542) Effective 11/28/2015: Units/Reference Range ChangeNew: 0.5-2.2 mmol/L Previous: 5 -20 mg/dLCBC W/PLT COUNT & AUTO [id number] 02:57:00 Test Item Value Reference Range Comments WHITE BLOOD CELL COUNT (BEAKER) (test ftfh=774) 2.7 K/ L 3.5-10.5 RED BLOOD CELL COUNT (BEAKER) (test ccfi=213) 2.45 M/ L 3.93-5.22 HEMOGLOBIN (BEAKER) (test krqn=293) 8.0 GM/DL 11.2-15.7 HEMATOCRIT (BEAKER) (test tkhl=600) 24.9 % 34.1-44.9 MEAN CORPUSCULAR VOLUME (BEAKER) (test dnjg=495) 101.6 fL 79.4-94.8 MEAN CORPUSCULAR HEMOGLOBIN (BEAKER) (test 32.7 pg 25.6-32.2 przr=097) MEAN CORPUSCULAR HEMOGLOBIN CONC (BEAKER) (test 32.1 GM/DL 32.2-35.5 tsyi=103) RED CELL DISTRIBUTION WIDTH (BEAKER) (test 20.7 % 11.7-14.4 croj=665) PLATELET COUNT (BEAKER) (test xfws=896) 44 K/CU MM 150-450 MEAN PLATELET VOLUME (BEAKER) (test owej=750) 11.9 fL 9.4-12.3 NUCLEATED RED BLOOD CELLS (BEAKER) (test 0 /100 WBC 0-0 nlxg=228) NEUTROPHILS RELATIVE PERCENT (BEAKER) (test 75 % sdyt=527) LYMPHOCYTES RELATIVE PERCENT (BEAKER) (test 12 % ltxl=599) MONOCYTES RELATIVE PERCENT (BEAKER) (test 12 % jmgu=092) EOSINOPHILS RELATIVE PERCENT (BEAKER) (test 0 % fagx=678) BASOPHILS RELATIVE PERCENT (BEAKER) (test 0 % hnbb=298) NEUTROPHILS ABSOLUTE COUNT (BEAKER) (test 2.05 K/ L 1.56-6.13 rqio=879) LYMPHOCYTES ABSOLUTE COUNT (BEAKER) (test 0.32 K/ L 1.18-3.74 kyfc=799) MONOCYTES ABSOLUTE COUNT (BEAKER) (test trvi=375) 0.34 K/ L 0.24-0.36 EOSINOPHILS ABSOLUTE COUNT (BEAKER) (test 0.01 K/ L 0.04-0.36 pcwv=998) BASOPHILS ABSOLUTE COUNT (BEAKER) (test txqy=877) 0.01 K/ L 0.01-0.08 IMMATURE GRANULOCYTES-RELATIVE PERCENT (BEAKER) 0 % 0-1 (test xvlo=6433) POCT-GLUCOSE [id number] 02:55:00 Test Item Value Reference Range Comments POC-GLUCOSE METER (BEAKER) 148 mg/dL 70-[address] [facility] [address] [facility] (test dsbm=4478) [facility] [address] BASIC METABOLIC [id number] 06:29:00 Test Item Value Reference Range Comments SODIUM (BEAKER) (test 129 meq/L 136-145 mpqc=486) POTASSIUM (BEAKER) (test 3.5 meq/L 3.5-5.1 tuds=717) CHLORIDE (BEAKER) (test 97 meq/L 98-107 jiey=082) CO2 (BEAKER) (test 25 meq/L 22-29 zsqn=960) BLOOD UREA NITROGEN 44 mg/dL 7-21 (BEAKER) (test rvqf=590) CREATININE (BEAKER) (test 4.23 mg/dL 0.57-1.25 uvdd=545) GLUCOSE RANDOM (BEAKER) 118 mg/dL 70-105 (test uqdv=721) CALCIUM (BEAKER) (test 7.0 mg/dL 8.4-10.2 zmlj=664) EGFR (BEAKER) (test 11 mL/min/1.73 sq m ESTIMATED GFR IS NOT uius=3593) ACCURATE CREATININE CLEARANCE IN PREDICTING GLOMERULAR FILTRATION RATE. ESTIMATED GFR IS NOT APPLICABLE FOR DIALYSIS PATIENTS. [id number] 06:27:00 Test Item Value Reference Range Comments MAGNESIUM (BEAKER) (test lvct=473) 1.8 mg/dL 1.6-2.6 CBC W/PLT COUNT & AUTO [id number] 06:09:00 Test Item Value Reference Range Comments WHITE BLOOD CELL COUNT (BEAKER) (test jrgp=559) 3.1 K/ L 3.5-10.5 RED BLOOD CELL COUNT (BEAKER) (test ypqo=338) 1.93 M/ L 3.93-5.22 HEMOGLOBIN (BEAKER) (test goab=716) 6.4 GM/DL 11.2-15.7 HEMATOCRIT (BEAKER) (test qqml=507) 20.6 % 34.1-44.9 MEAN CORPUSCULAR VOLUME (BEAKER) (test cuid=781) 106.7 fL 79.4-94.8 MEAN CORPUSCULAR HEMOGLOBIN (BEAKER) (test 33.2 pg 25.6-32.2 rbls=514) MEAN CORPUSCULAR HEMOGLOBIN CONC (BEAKER) (test 31.1 GM/DL 32.2-35.5 jeci=273) RED CELL DISTRIBUTION WIDTH (BEAKER) (test 20.5 % 11.7-14.4 mxxk=587) PLATELET COUNT (BEAKER) (test mxas=058) 48 K/CU MM 150-450 MEAN PLATELET VOLUME (BEAKER) (test zbfl=466) 12.1 fL 9.4-12.3 NUCLEATED RED BLOOD CELLS (BEAKER) (test 0 /100 WBC 0-0 wzzf=773) NEUTROPHILS RELATIVE PERCENT (BEAKER) (test 77 % krrk=503) LYMPHOCYTES RELATIVE PERCENT (BEAKER) (test 9 % mmyp=631) MONOCYTES RELATIVE PERCENT (BEAKER) (test 13 % xokv=755) EOSINOPHILS RELATIVE PERCENT (BEAKER) (test 0 % evor=876) BASOPHILS RELATIVE PERCENT (BEAKER) (test 0 % ustx=120) NEUTROPHILS ABSOLUTE COUNT (BEAKER) (test 2.42 K/ L 1.56-6.13 quvj=027) LYMPHOCYTES ABSOLUTE COUNT (BEAKER) (test 0.27 K/ L 1.18-3.74 fjli=934) MONOCYTES ABSOLUTE COUNT (BEAKER) (test chgp=544) 0.39 K/ L 0.24-0.36 EOSINOPHILS ABSOLUTE COUNT (BEAKER) (test 0.01 K/ L 0.04-0.36 kjrb=605) BASOPHILS ABSOLUTE COUNT (BEAKER) (test tldm=679) 0.01 K/ L 0.01-0.08 IMMATURE GRANULOCYTES-RELATIVE PERCENT (BEAKER) 1 % 0-1 (test nken=3367) RAD, SHOULDER, COMPLETE (MIN 2 VIEWS), [id number] 17:48:00Reason for exam:-& gt;r/o FxShould this be [...] MDReport Verified Date/Time: 03/26/2018 17:48:06 Reading Location: [facility] Radiology Reading Room [facility] METABOLIC [id number] 07:10:00 Test Item Value Reference Range Comments SODIUM (BEAKER) (test 133 meq/L 136-145 rvdw=423) POTASSIUM (BEAKER) (test 3.6 meq/L 3.5-5.1 tdqz=366) CHLORIDE (BEAKER) (test 101 meq/L 98-107 ahxd=230) CO2 (BEAKER) (test 24 meq/L 22-29 tped=397) BLOOD UREA NITROGEN 26 mg/dL 7-21 (BEAKER) (test vtye=001) CREATININE (BEAKER) (test 2.73 mg/dL 0.57-1.25 smui=675) GLUCOSE RANDOM (BEAKER) 117 mg/dL 70-105 (test ryiv=223) CALCIUM (BEAKER) (test 7.5 mg/dL 8.4-10.2 asuu=112) EGFR (BEAKER) (test 18 mL/min/1.73 sq m ESTIMATED GFR IS NOT syvv=8744) ACCURATE CREATININE CLEARANCE IN PREDICTING GLOMERULAR FILTRATION RATE. ESTIMATED GFR IS NOT APPLICABLE FOR DIALYSIS PATIENTS. [id number] 07:08:00 Test Item Value Reference Range Comments MAGNESIUM (BEAKER) (test ocmz=042) 1.9 mg/dL 1.6-2.6 CBC W/PLT COUNT & AUTO [id number] 06:34:00 Test Item Value Reference Range Comments WHITE BLOOD CELL COUNT (BEAKER) (test uoqw=121) 3.1 K/ L 3.5-10.5 RED BLOOD CELL COUNT (BEAKER) (test abmi=547) 2.18 M/ L 3.93-5.22 HEMOGLOBIN (BEAKER) (test fpru=233) 7.2 GM/DL 11.2-15.7 HEMATOCRIT (BEAKER) (test msux=462) 23.1 % 34.1-44.9 MEAN CORPUSCULAR VOLUME (BEAKER) (test oikq=616) 106.0 fL 79.4-94.8 MEAN CORPUSCULAR HEMOGLOBIN (BEAKER) (test 33.0 pg 25.6-32.2 vlqe=156) MEAN CORPUSCULAR HEMOGLOBIN CONC (BEAKER) (test 31.2 GM/DL 32.2-35.5 zxos=008) RED CELL DISTRIBUTION WIDTH (BEAKER) (test 21.7 % 11.7-14.4 reho=334) PLATELET COUNT (BEAKER) (test gryp=913) 45 K/CU MM 150-450 MEAN PLATELET VOLUME (BEAKER) (test ezru=893) 11.8 fL 9.4-12.3 NUCLEATED RED BLOOD CELLS (BEAKER) (test 0 /100 WBC 0-0 sukn=920) NEUTROPHILS RELATIVE PERCENT (BEAKER) (test 83 % oqae=705) LYMPHOCYTES RELATIVE PERCENT (BEAKER) (test 7 % zoou=352) MONOCYTES RELATIVE PERCENT (BEAKER) (test 10 % jkqf=888) EOSINOPHILS RELATIVE PERCENT (BEAKER) (test 0 % jarz=524) BASOPHILS RELATIVE PERCENT (BEAKER) (test 0 % dbon=840) NEUTROPHILS ABSOLUTE COUNT (BEAKER) (test 2.55 K/ L 1.56-6.13 psfn=296) LYMPHOCYTES ABSOLUTE COUNT (BEAKER) (test 0.20 K/ L 1.18-3.74 uubp=690) MONOCYTES ABSOLUTE COUNT (BEAKER) (test togq=976) 0.31 K/ L 0.24-0.36 EOSINOPHILS ABSOLUTE COUNT (BEAKER) (test 0.00 K/ L 0.04-0.36 xokc=623) BASOPHILS ABSOLUTE COUNT (BEAKER) (test aztx=375) 0.01 K/ L 0.01-0.08 IMMATURE GRANULOCYTES-RELATIVE PERCENT (BEAKER) 1 % 0-1 (test qdnd=4746) CT, [id number] 02:57:00R/o retroperitoneal hematoma s/p kidney bxFINAL REPORT [...] Islas Verified Date/Time: 03/26/2018 02:57:14 Reading Location: [address] Transitional Reading Room Electronically signed by: KELLEE ISLAS MD on 2017 02:57 AMLACTATE DEHYDROGENASE (LDH)2018-03-25 14:50:00 Test Item Value Reference Range Comments LACTATE DEHYDROGENASE (BEAKER) (test hfcr=633) 722 U/L 125-220 PERIPHERAL BLOOD SMEAR - HOLD [id number] 14:37:00 Test Item Value Reference Range Comments PERIPHERAL SMEAR SAVE (BEAKER) (test whhn=6538) saved BASIC METABOLIC [id number] 07:08:00 Test Item Value Reference Range Comments SODIUM (BEAKER) (test 127 meq/L 136-145 xwut=374) POTASSIUM (BEAKER) (test 4.3 meq/L 3.5-5.1 pbvy=512) CHLORIDE (BEAKER) (test 94 meq/L 98-107 obac=050) CO2 (BEAKER) (test 23 meq/L 22-29 utyb=545) BLOOD UREA NITROGEN 56 mg/dL 7-21 (BEAKER) (test eyya=851) CREATININE (BEAKER) (test 4.30 mg/dL 0.57-1.25 pxbb=584) GLUCOSE RANDOM (BEAKER) 110 mg/dL 70-105 (test hcuj=162) CALCIUM (BEAKER) (test 6.4 mg/dL 8.4-10.2 nbde=032) EGFR (BEAKER) (test 11 mL/min/1.73 sq m ESTIMATED GFR IS NOT ylcy=1385) ACCURATE CREATININE CLEARANCE IN PREDICTING GLOMERULAR FILTRATION RATE. ESTIMATED GFR IS NOT APPLICABLE FOR DIALYSIS PATIENTS. [id number] 07:04:00 Test Item Value Reference Range Comments MAGNESIUM (BEAKER) (test jgeu=615) 1.9 mg/dL 1.6-2.6 CBC W/PLT COUNT & AUTO [id number] 06:27:00 Test Item Value Reference Range Comments WHITE BLOOD CELL COUNT (BEAKER) (test aogd=551) 5.3 K/ L 3.5-10.5 RED BLOOD CELL COUNT (BEAKER) (test mgdq=376) 2.39 M/ L 3.93-5.22 HEMOGLOBIN (BEAKER) (test ceta=332) 7.9 GM/DL 11.2-15.7 HEMATOCRIT (BEAKER) (test farc=272) 25.0 % 34.1-44.9 MEAN CORPUSCULAR VOLUME (BEAKER) (test jqkp=567) 104.6 fL 79.4-94.8 MEAN CORPUSCULAR HEMOGLOBIN (BEAKER) (test 33.1 pg 25.6-32.2 rnuw=071) MEAN CORPUSCULAR HEMOGLOBIN CONC (BEAKER) (test 31.6 GM/DL 32.2-35.5 cway=360) RED CELL DISTRIBUTION WIDTH (BEAKER) (test 22.2 % 11.7-14.4 xllv=868) PLATELET COUNT (BEAKER) (test kzds=611) 60 K/CU MM 150-450 MEAN PLATELET VOLUME (BEAKER) (test taep=699) 12.7 fL 9.4-12.3 NUCLEATED RED BLOOD CELLS (BEAKER) (test 0 /100 WBC 0-0 ctqy=668) NEUTROPHILS RELATIVE PERCENT (BEAKER) (test 85 % zizc=802) LYMPHOCYTES RELATIVE PERCENT (BEAKER) (test 6 % bfcj=600) MONOCYTES RELATIVE PERCENT (BEAKER) (test 9 % ocrg=099) EOSINOPHILS RELATIVE PERCENT (BEAKER) (test 0 % xdvc=492) BASOPHILS RELATIVE PERCENT (BEAKER) (test 0 % kfnd=202) NEUTROPHILS ABSOLUTE COUNT (BEAKER) (test 4.50 K/ L 1.56-6.13 xhau=821) LYMPHOCYTES ABSOLUTE COUNT (BEAKER) (test 0.30 K/ L 1.18-3.74 husx=782) MONOCYTES ABSOLUTE COUNT (BEAKER) (test irrh=050) 0.46 K/ L 0.24-0.36 EOSINOPHILS ABSOLUTE COUNT (BEAKER) (test 0.01 K/ L 0.04-0.36 mqus=287) BASOPHILS ABSOLUTE COUNT (BEAKER) (test iqkl=601) 0.01 K/ L 0.01-0.08 IMMATURE GRANULOCYTES-RELATIVE PERCENT (BEAKER) 1 % 0-1 (test gayd=8983) HEPATITIS B [id number] 13:58:00 Test Item Value Reference Range Comments HEPATITIS B CORE TOTAL Nonreactive Nonreactive ANTIBODY (BEAKER) (test owqp=060) HEPATITIS B SURFACE ANTIBODY 133.0 mIU/mL <8.0 Testing performed at [facility] (BEAKER) (test hevr=197) Diagnostic Laboratory.See attach result for further interpretation. HEPATITIS B SURFACE ANTIGEN Nonreactive Nonreactive (2) (BEAKER) (test mgjr=4294) U/S, BIOPSY, RENAL (KIDNEY)2018-03-24 12:59:00Reason for exam:->Acute [...] MDReport Verified Date/Time: 03/24 12:59:37 Reading Location: [address] Ultrasound Reading Room BONE MARROW [id number] 11:03:00Bone Marrow Pathology Report Case: [id number] Authorizing Provider: Jordan Sultana MD Collected: 03/17/2018 1457 Ordering Location : [address] Med/Surg Received: 03/17/2018 1457 Pathologist: Doug [...] NORMOCYTIC ANEMIA-THROMBOCYTOPENIA Signing Pathologist Direct Phone Line: [phone] signed by Doug Lee MD on 03/23/2018 [...] be submitted as an addendum when available. [id number]; 05994; 57373 x 2; 21527; [id number] x 1; 29148 [id number] malignant neoplasm of breast with metastasis to [...] clusters. CD61: Highlights megakaryocytes which appear mildly riaqyqeldMH573: Demonstrates slightly more progenitor cells then CD34 [...] developed and its performance characteristics determined by [facility], Pathology Laboratory. It has not [...] 5.2, CD3, CD20, CD34, CD61, CD117, CD138, Mcgehee, Lambda , E-Cadherin.CBC W/PLT COUNT & AUTO [id number] 06:18:00 Test Item Value Reference Range Comments WHITE BLOOD CELL COUNT (BEAKER) (test skce=041) 5.0 K/ L 3.5-10.5 RED BLOOD CELL COUNT (BEAKER) (test nbbi=482) 2.77 M/ L 3.93-5.22 HEMOGLOBIN (BEAKER) (test ifxs=685) 9.0 GM/DL 11.2-15.7 HEMATOCRIT (BEAKER) (test yrti=402) 29.8 % 34.1-44.9 MEAN CORPUSCULAR VOLUME (BEAKER) (test kzjr=806) 107.6 fL 79.4-94.8 MEAN CORPUSCULAR HEMOGLOBIN (BEAKER) (test 32.5 pg 25.6-32.2 bhnc=416) MEAN CORPUSCULAR HEMOGLOBIN CONC (BEAKER) (test 30.2 GM/DL 32.2-35.5 btwc=911) RED CELL DISTRIBUTION WIDTH (BEAKER) (test 23.6 % 11.7-14.4 gvjo=665) PLATELET COUNT (BEAKER) (test kkfc=776) 61 K/CU MM 150-450 MEAN PLATELET VOLUME (BEAKER) (test gwpc=870) 11.2 fL 9.4-12.3 NUCLEATED RED BLOOD CELLS (BEAKER) (test 0 /100 WBC 0-0 xsbo=623) NEUTROPHILS RELATIVE PERCENT (BEAKER) (test 82 % jehk=524) LYMPHOCYTES RELATIVE PERCENT (BEAKER) (test 7 % jiaf=482) MONOCYTES RELATIVE PERCENT (BEAKER) (test 10 % eosu=638) EOSINOPHILS RELATIVE PERCENT (BEAKER) (test 0 % rpxw=205) BASOPHILS RELATIVE PERCENT (BEAKER) (test 0 % ixma=926) NEUTROPHILS ABSOLUTE COUNT (BEAKER) (test 4.14 K/ L 1.56-6.13 qkch=785) LYMPHOCYTES ABSOLUTE COUNT (BEAKER) (test 0.35 K/ L 1.18-3.74 tuiy=284) MONOCYTES ABSOLUTE COUNT (BEAKER) (test lrzn=050) 0.49 K/ L 0.24-0.36 EOSINOPHILS ABSOLUTE COUNT (BEAKER) (test 0.02 K/ L 0.04-0.36 jltt=430) BASOPHILS ABSOLUTE COUNT (BEAKER) (test guiu=623) 0.01 K/ L 0.01-0.08 IMMATURE GRANULOCYTES-RELATIVE PERCENT (BEAKER) 0 % 0-1 (test snnw=5511) BASIC METABOLIC [id number] 05:46:00 Test Item Value Reference Range Comments SODIUM (BEAKER) (test 129 meq/L 136-145 dezf=807) POTASSIUM (BEAKER) (test 3.9 meq/L 3.5-5.1 nope=135) CHLORIDE (BEAKER) (test 98 meq/L 98-107 sgif=440) CO2 (BEAKER) (test 22 meq/L 22-29 erfe=193) BLOOD UREA NITROGEN 42 mg/dL 7-21 (BEAKER) (test jizt=210) CREATININE (BEAKER) (test 3.25 mg/dL 0.57-1.25 rvdy=758) GLUCOSE RANDOM (BEAKER) 101 mg/dL 70-105 (test qlkj=248) CALCIUM (BEAKER) (test 7.0 mg/dL 8.4-10.2 udvh=387) EGFR (BEAKER) (test 15 mL/min/1.73 sq m ESTIMATED GFR IS NOT gkqe=2062) ACCURATE CREATININE CLEARANCE IN PREDICTING GLOMERULAR FILTRATION RATE. ESTIMATED GFR IS NOT APPLICABLE FOR DIALYSIS PATIENTS. [id number] 05:40:00 Test Item Value Reference Range Comments MAGNESIUM (BEAKER) (test 2.1 mg/dL 1.6-2.6 Specimen slightly hemolyzed siqj=693) BASIC METABOLIC [id number] 23:13:00 Test Item Value Reference Range Comments SODIUM (BEAKER) (test 133 meq/L 136-145 ccuj=728) POTASSIUM (BEAKER) (test 3.6 meq/L 3.5-5.1 feco=054) CHLORIDE (BEAKER) (test 98 meq/L 98-107 fjck=987) CO2 (BEAKER) (test 26 meq/L 22-29 hvqc=832) BLOOD UREA NITROGEN 42 mg/dL 7-21 (BEAKER) (test srxi=207) CREATININE (BEAKER) (test 3.20 mg/dL 0.57-1.25 hdzd=301) GLUCOSE RANDOM (BEAKER) 113 mg/dL 70-105 (test kvvd=373) CALCIUM (BEAKER) (test 6.9 mg/dL 8.4-10.2 povb=691) EGFR (BEAKER) (test 15 mL/min/1.73 sq m ESTIMATED GFR IS NOT jvcp=0572) ACCURATE CREATININE CLEARANCE IN PREDICTING GLOMERULAR FILTRATION RATE. ESTIMATED GFR IS NOT APPLICABLE FOR DIALYSIS PATIENTS. BASIC METABOLIC [id number] 18:45:00 Test Item Value Reference Range Comments SODIUM (BEAKER) (test 134 meq/L 136-145 mnsn=284) POTASSIUM (BEAKER) (test 3.8 meq/L 3.5-5.1 zgox=512) CHLORIDE (BEAKER) (test 100 meq/L 98-107 cppb=905) CO2 (BEAKER) (test 25 meq/L 22-29 tbhk=037) BLOOD UREA NITROGEN 37 mg/dL 7-21 (BEAKER) (test imzd=731) CREATININE (BEAKER) (test 2.98 mg/dL 0.57-1.25 slxh=350) GLUCOSE RANDOM (BEAKER) 131 mg/dL 70-105 (test qoyz=841) CALCIUM (BEAKER) (test 7.3 mg/dL 8.4-10.2 kocz=531) EGFR (BEAKER) (test 16 mL/min/1.73 sq m ESTIMATED GFR IS NOT wdvz=0901) ACCURATE CREATININE CLEARANCE IN PREDICTING GLOMERULAR FILTRATION RATE. ESTIMATED GFR IS NOT APPLICABLE FOR DIALYSIS PATIENTS. POCT-GLUCOSE [id number] 10:29:00 Test Item Value Reference Range Comments POC-GLUCOSE METER (BEAKER) 93 mg/dL 70-[address] [facility] [address] [place] [address] (test abdi=1057) [facility] [address] BASIC METABOLIC [id number] 07:02:00 Test Item Value Reference Range Comments SODIUM (BEAKER) (test 133 meq/L 136-145 gtzq=231) POTASSIUM (BEAKER) (test 3.7 meq/L 3.5-5.1 rvcm=535) CHLORIDE (BEAKER) (test 97 meq/L 98-107 jmsl=474) CO2 (BEAKER) (test 25 meq/L 22-29 cggq=017) BLOOD UREA NITROGEN 70 mg/dL 7-21 (BEAKER) (test rmhz=630) CREATININE (BEAKER) (test 4.25 mg/dL 0.57-1.25 bapg=940) GLUCOSE RANDOM (BEAKER) 93 mg/dL 70-105 (test lpbp=630) CALCIUM (BEAKER) (test 7.2 mg/dL 8.4-10.2 osca=682) EGFR (BEAKER) (test 11 mL/min/1.73 sq m ESTIMATED GFR IS NOT zoox=1891) ACCURATE CREATININE CLEARANCE IN PREDICTING GLOMERULAR FILTRATION RATE. ESTIMATED GFR IS NOT APPLICABLE FOR DIALYSIS PATIENTS. [id number] 07:01:00 Test Item Value Reference Range Comments MAGNESIUM (BEAKER) (test zkxr=277) 2.2 mg/dL 1.6-2.6 CBC W/PLT COUNT & AUTO [id number] 06:36:00 Test Item Value Reference Range Comments WHITE BLOOD CELL COUNT (BEAKER) (test ftkd=852) 6.2 K/ L 3.5-10.5 RED BLOOD CELL COUNT (BEAKER) (test luij=484) 2.89 M/ L 3.93-5.22 HEMOGLOBIN (BEAKER) (test zwwr=564) 9.5 GM/DL 11.2-15.7 HEMATOCRIT (BEAKER) (test fvvs=319) 31.1 % 34.1-44.9 MEAN CORPUSCULAR VOLUME (BEAKER) (test iybh=194) 107.6 fL 79.4-94.8 MEAN CORPUSCULAR HEMOGLOBIN (BEAKER) (test 32.9 pg 25.6-32.2 xgpa=037) MEAN CORPUSCULAR HEMOGLOBIN CONC (BEAKER) (test 30.5 GM/DL 32.2-35.5 nzzd=852) RED CELL DISTRIBUTION WIDTH (BEAKER) (test 24.9 % 11.7-14.4 maus=497) PLATELET COUNT (BEAKER) (test rzuo=479) 73 K/CU MM 150-450 MEAN PLATELET VOLUME (BEAKER) (test yvio=384) 13.4 fL 9.4-12.3 NUCLEATED RED BLOOD CELLS (BEAKER) (test 0 /100 WBC 0-0 xzar=658) NEUTROPHILS RELATIVE PERCENT (BEAKER) (test 87 % aqpw=838) LYMPHOCYTES RELATIVE PERCENT (BEAKER) (test 5 % qljc=412) MONOCYTES RELATIVE PERCENT (BEAKER) (test 7 % vvhc=420) EOSINOPHILS RELATIVE PERCENT (BEAKER) (test 0 % ehyd=330) BASOPHILS RELATIVE PERCENT (BEAKER) (test 0 % vhuh=326) NEUTROPHILS ABSOLUTE COUNT (BEAKER) (test 5.36 K/ L 1.56-6.13 wobp=714) LYMPHOCYTES ABSOLUTE COUNT (BEAKER) (test 0.31 K/ L 1.18-3.74 aavj=873) MONOCYTES ABSOLUTE COUNT (BEAKER) (test eeff=166) 0.44 K/ L 0.24-0.36 EOSINOPHILS ABSOLUTE COUNT (BEAKER) (test 0.01 K/ L 0.04-0.36 dydx=667) BASOPHILS ABSOLUTE COUNT (BEAKER) (test mbuz=712) 0.00 K/ L 0.01-0.08 IMMATURE GRANULOCYTES-RELATIVE PERCENT (BEAKER) 1 % 0-1 (test datq=5311) [id number] 06:35:00 Test Item Value Reference Range Comments PROTIME (BEAKER) (test jxgb=346) 15.3 seconds 11.7-14.7 INR (BEAKER) (test xwjt=725) 1.2 <=5.9 PARTIAL THROMBOPLASTIN TIME (BEAKER) (test 29.7 seconds 22.5-36.0 zozh=071) RECOMMENDED COUMADIN/WARFARIN INR THERAPY RANGESSTANDARD DOSE: 2.0 - 3.0 Includes: PROPHYLAXIS forvenous thrombosis, systemic embolization; TREATMENT for venous thrombosis and/or pulmonary embolus.HIGH RISK: Target INR is 2.5-3.5 for patients with mechanical heart valves.[id number] 23:55:00 Test Item Value Reference Range Comments PHOSPHORUS (BEAKER) (test bsez=706) 6.1 mg/dL 2.3-4.7 BASIC METABOLIC [id number] 23:55:00 Test Item Value Reference Range Comments SODIUM (BEAKER) (test 135 meq/L 136-145 hkpk=418) POTASSIUM (BEAKER) (test 3.6 meq/L 3.5-5.1 ijja=243) CHLORIDE (BEAKER) (test 97 meq/L 98-107 abhv=590) CO2 (BEAKER) (test 26 meq/L 22-29 khxm=315) BLOOD UREA NITROGEN 63 mg/dL 7-21 (BEAKER) (test qeur=890) CREATININE (BEAKER) (test 3.99 mg/dL 0.57-1.25 tgpj=190) GLUCOSE RANDOM (BEAKER) 121 mg/dL 70-105 (test dilb=950) CALCIUM (BEAKER) (test 7.2 mg/dL 8.4-10.2 rhqv=685) EGFR (BEAKER) (test 12 mL/min/1.73 sq m ESTIMATED GFR IS NOT ithc=2279) ACCURATE CREATININE CLEARANCE IN PREDICTING GLOMERULAR FILTRATION RATE. ESTIMATED GFR IS NOT APPLICABLE FOR DIALYSIS PATIENTS. BASIC METABOLIC [id number] 17:30:00 Test Item Value Reference Range Comments SODIUM (BEAKER) (test 137 meq/L 136-145 tdzf=667) POTASSIUM (BEAKER) (test 3.7 meq/L 3.5-5.1 fhwx=509) CHLORIDE (BEAKER) (test 98 meq/L 98-107 atoo=855) CO2 (BEAKER) (test 27 meq/L 22-29 zotw=472) BLOOD UREA NITROGEN 53 mg/dL 7-21 (BEAKER) (test qphe=660) CREATININE (BEAKER) (test 3.30 mg/dL 0.57-1.25 icdq=524) GLUCOSE RANDOM (BEAKER) 105 mg/dL 70-105 (test yyvj=933) CALCIUM (BEAKER) (test 8.1 mg/dL 8.4-10.2 kmlh=701) EGFR (BEAKER) (test 15 mL/min/1.73 sq m ESTIMATED GFR IS NOT glik=5845) ACCURATE CREATININE CLEARANCE IN PREDICTING GLOMERULAR FILTRATION RATE. ESTIMATED GFR IS NOT APPLICABLE FOR DIALYSIS PATIENTS. HEPATIC FUNCTION [id number] 17:26:00 Test Item Value Reference Range Comments TOTAL PROTEIN (BEAKER) (test chur=386) 6.7 gm/dL 6.0-8.3 ALBUMIN (BEAKER) (test cuya=3375) 3.1 g/dL 3.5-5.0 BILIRUBIN TOTAL (BEAKER) (test pifn=926) 1.6 mg/dL 0.2-1.2 BILIRUBIN DIRECT (BEAKER) (test ppuz=606) 0.7 mg/dL 0.1-0.5 ALKALINE PHOSPHATASE (BEAKER) (test cevt=703) 63 U/L 40-150 AST (SGOT) (BEAKER) (test iepn=146) 48 U/L 5-34 ALT (SGPT) (BEAKER) (test axil=223) 24 U/L 6-55 BASIC METABOLIC [id number] 15:15:00 Test Item Value Reference Range Comments SODIUM (BEAKER) (test 134 meq/L 136-145 ixat=638) POTASSIUM (BEAKER) (test 4.1 meq/L 3.5-5.1 axnm=831) CHLORIDE (BEAKER) (test 94 meq/L 98-107 rvqh=443) CO2 (BEAKER) (test 23 meq/L 22-29 gjzt=680) BLOOD UREA NITROGEN 112 mg/dL 7-21 (BEAKER) (test uehc=870) CREATININE (BEAKER) (test 5.93 mg/dL 0.57-1.25 czks=318) GLUCOSE RANDOM (BEAKER) 104 mg/dL 70-105 (test jxom=923) CALCIUM (BEAKER) (test 7.2 mg/dL 8.4-10.2 rmzs=682) EGFR (BEAKER) (test 7 mL/min/1.73 sq m ESTIMATED GFR IS NOT hbgk=3676) ACCURATE CREATININE CLEARANCE IN PREDICTING GLOMERULAR FILTRATION RATE. ESTIMATED GFR IS NOT APPLICABLE FOR DIALYSIS PATIENTS. URINE IMMUNOFIXATION, [id number] 15:09:00 Test Item Value Reference Range Comments PROTEIN, URINE (BEAKER) (test 412 mg/dL 0-14 skjn=8050) ALBUMIN URINE ELP (BEAKER) 56.3 % (test tfys=9545) GAMMA GLOBULIN URINE (BEAKER) 43.7 % (test ixxk=1653) URINE JUDSON ID-[id number] (BEAKER) No monoclonal proteins or (test afsu=8326) monoclonal free light chains detected. [id number] (BEAKER) Barbie Mccollum MD (test wpvj=9306) (electronic signature) URINE PROTEIN ELECTROPHORESIS, [id number] 13:02:00 Test Item Value Reference Range Comments PROTEIN, URINE (BEAKER) (test 412 mg/dL 0-14 dils=9788) ALBUMIN URINE ELP (BEAKER) 56.3 % (test ycvr=7049) GAMMA GLOBULIN URINE (BEAKER) 43.7 % (test ywtw=4487) UPEP, ID-438 (BEAKER) (test No monoclonal bands detected. nogj=5514) [id number] (BEAKER) Barbie Mccollum MD (test fdoo=2894) (electronic signature) [id number] 08:19:00 Test Item Value Reference Range Comments HAPTOGLOBIN (BEAKER) (test kslb=079) < mg/dL 14-258 BASIC METABOLIC [id number] 07:44:00 Test Item Value Reference Range Comments SODIUM (BEAKER) (test 133 meq/L 136-145 hrvs=120) POTASSIUM (BEAKER) (test 4.4 meq/L 3.5-5.1 bpie=807) CHLORIDE (BEAKER) (test 95 meq/L 98-107 pcam=311) CO2 (BEAKER) (test 23 meq/L 22-29 dvfr=330) BLOOD UREA NITROGEN 108 mg/dL 7-21 (BEAKER) (test odtj=134) CREATININE (BEAKER) (test 5.79 mg/dL 0.57-1.25 kzlh=007) GLUCOSE RANDOM (BEAKER) 107 mg/dL 70-105 (test bdpe=605) CALCIUM (BEAKER) (test 7.4 mg/dL 8.4-10.2 anfi=626) EGFR (BEAKER) (test 8 mL/min/1.73 sq m ESTIMATED GFR IS NOT cltp=7986) ACCURATE CREATININE CLEARANCE IN PREDICTING GLOMERULAR FILTRATION RATE. ESTIMATED GFR IS NOT APPLICABLE FOR DIALYSIS PATIENTS. [id number] 07:29:00 Test Item Value Reference Range Comments MAGNESIUM (BEAKER) (test ylbv=675) 2.6 mg/dL 1.6-2.6 LACTATE DEHYDROGENASE (LDH)2018-03-22 07:29:00 Test Item Value Reference Range Comments LACTATE DEHYDROGENASE (BEAKER) (test xbij=969) 812 U/L 125-220 CBC W/PLT COUNT & AUTO [id number] 07:15:00 Test Item Value Reference Range Comments WHITE BLOOD CELL COUNT (BEAKER) (test tzrk=233) 5.5 K/ L 3.5-10.5 RED BLOOD CELL COUNT (BEAKER) (test wcmf=297) 2.90 M/ L 3.93-5.22 HEMOGLOBIN (BEAKER) (test onmi=608) 9.5 GM/DL 11.2-15.7 HEMATOCRIT (BEAKER) (test fohf=401) 30.7 % 34.1-44.9 MEAN CORPUSCULAR VOLUME (BEAKER) (test ihkw=715) 105.9 fL 79.4-94.8 MEAN CORPUSCULAR HEMOGLOBIN (BEAKER) (test 32.8 pg 25.6-32.2 tean=687) MEAN CORPUSCULAR HEMOGLOBIN CONC (BEAKER) (test 30.9 GM/DL 32.2-35.5 krth=922) RED CELL DISTRIBUTION WIDTH (BEAKER) (test 24.7 % 11.7-14.4 uxbh=717) PLATELET COUNT (BEAKER) (test rukz=033) 56 K/CU MM 150-450 MEAN PLATELET VOLUME (BEAKER) (test ijgd=195) 11.6 fL 9.4-12.3 NUCLEATED RED BLOOD CELLS (BEAKER) (test 0 /100 WBC 0-0 exrv=479) NEUTROPHILS RELATIVE PERCENT (BEAKER) (test 83 % yhtt=123) LYMPHOCYTES RELATIVE PERCENT (BEAKER) (test 9 % sufa=878) MONOCYTES RELATIVE PERCENT (BEAKER) (test 7 % bdmr=082) EOSINOPHILS RELATIVE PERCENT (BEAKER) (test 0 % yczk=727) BASOPHILS RELATIVE PERCENT (BEAKER) (test 0 % gwav=875) NEUTROPHILS ABSOLUTE COUNT (BEAKER) (test 4.58 K/ L 1.56-6.13 csxd=136) LYMPHOCYTES ABSOLUTE COUNT (BEAKER) (test 0.49 K/ L 1.18-3.74 vvwh=958) MONOCYTES ABSOLUTE COUNT (BEAKER) (test fydk=573) 0.39 K/ L 0.24-0.36 EOSINOPHILS ABSOLUTE COUNT (BEAKER) (test 0.00 K/ L 0.04-0.36 pagw=012) BASOPHILS ABSOLUTE COUNT (BEAKER) (test mrod=883) 0.01 K/ L 0.01-0.08 IMMATURE GRANULOCYTES-RELATIVE PERCENT (BEAKER) 1 % 0-1 (test fxoo=6242) RETICULOCYTE [id number] 07:08:00 Test Item Value Reference Range Comments RETICULOCYTE COUNT PCT (BEAKER) (test kwar=851) 13.4 % 0.5-1.7 [id number] 07:07:00 Test Item Value Reference Range Comments PROTIME (BEAKER) (test nxhi=355) 16.2 seconds 11.7-14.7 INR (BEAKER) (test kabf=734) 1.3 <=5.9 PARTIAL THROMBOPLASTIN TIME (BEAKER) (test 31.2 seconds 22.5-36.0 jevt=999) RECOMMENDED COUMADIN/WARFARIN INR THERAPY RANGESSTANDARD DOSE: 2.0 - 3.0 Includes: PROPHYLAXIS forvenous thrombosis, systemic embolization; TREATMENT for venous thrombosis and/or pulmonary embolus.HIGH RISK: Target INR is 2.5-3.5 for patients with mechanical heart valves.PROTHROMBIN [id number] 07:06: 00 Test Item Value Reference Range Comments PROTIME (BEAKER) (test sxjb=195) 16.2 seconds 11.7-14.7 INR (BEAKER) (test ecfm=750) 1.3 <=5.9 RECOMMENDED COUMADIN/WARFARIN INR THERAPY RANGESSTANDARD DOSE: 2.0 - 3.0 Includes: PROPHYLAXIS forvenous thrombosis, systemic embolization; TREATMENT for venous thrombosis and/or pulmonary embolus.HIGH RISK: Target INR is 2.5-3.5 for patients with mechanical heart valves.BASIC METABOLIC [id number] 22:18: 00 Test Item Value Reference Range Comments SODIUM (BEAKER) (test 132 meq/L 136-145 leww=742) POTASSIUM (BEAKER) (test 4.7 meq/L 3.5-5.1 rnif=186) CHLORIDE (BEAKER) (test 95 meq/L 98-107 ytqc=338) CO2 (BEAKER) (test 22 meq/L 22-29 auzk=786) BLOOD UREA NITROGEN 99 mg/dL 7-21 (BEAKER) (test bdpp=525) CREATININE (BEAKER) (test 5.57 mg/dL 0.57-1.25 auua=580) GLUCOSE RANDOM (BEAKER) 139 mg/dL 70-105 (test bhwn=112) CALCIUM (BEAKER) (test 7.3 mg/dL 8.4-10.2 pqym=311) EGFR (BEAKER) (test 8 mL/min/1.73 sq m ESTIMATED GFR IS NOT rlij=9521) ACCURATE CREATININE CLEARANCE IN PREDICTING GLOMERULAR FILTRATION RATE. ESTIMATED GFR IS NOT APPLICABLE FOR DIALYSIS PATIENTS. RAD, CHEST, 1 VIEW, NON [id number] 18:54:00Reason for exam:->cough, chest congestionShould this be [...] MDReport Verified Date/Time: 03/21/2018 18:54:34 Reading Location: [facility] C013Y CT Body Reading Room BASIC METABOLIC [id number] 16:55:00 Test Item Value Reference Range Comments SODIUM (BEAKER) (test 135 meq/L 136-145 fzcc=353) POTASSIUM (BEAKER) (test 5.1 meq/L 3.5-5.1 gwif=052) CHLORIDE (BEAKER) (test 97 meq/L 98-107 fjwk=931) CO2 (BEAKER) (test 20 meq/L 22-29 wggi=420) BLOOD UREA NITROGEN 100 mg/dL 7-21 (BEAKER) (test snsd=555) CREATININE (BEAKER) (test 5.45 mg/dL 0.57-1.25 bkmt=889) GLUCOSE RANDOM (BEAKER) 133 mg/dL 70-105 (test uycx=101) CALCIUM (BEAKER) (test 7.7 mg/dL 8.4-10.2 qxpm=712) EGFR (BEAKER) (test 8 mL/min/1.73 sq m ESTIMATED GFR IS NOT abgr=5207) ACCURATE CREATININE CLEARANCE IN PREDICTING GLOMERULAR FILTRATION RATE. ESTIMATED GFR IS NOT APPLICABLE FOR DIALYSIS PATIENTS. BLOOD [id number] 13:00:00 Test Item Value Reference Range Comments CULTURE (BEAKER) (test dosp=4969) No growth in 5 days BASIC METABOLIC [id number] 12:42:00 Test Item Value Reference Range Comments SODIUM (BEAKER) (test 134 meq/L 136-145 qjrs=064) POTASSIUM (BEAKER) (test 4.7 meq/L 3.5-5.1 vgnt=468) CHLORIDE (BEAKER) (test 95 meq/L 98-107 krki=732) CO2 (BEAKER) (test 21 meq/L 22-29 wimh=566) BLOOD UREA NITROGEN 97 mg/dL 7-21 (BEAKER) (test neaf=867) CREATININE (BEAKER) (test 5.18 mg/dL 0.57-1.25 mgdi=041) GLUCOSE RANDOM (BEAKER) 121 mg/dL 70-105 (test qbuw=012) CALCIUM (BEAKER) (test 7.9 mg/dL 8.4-10.2 qdjd=759) EGFR (BEAKER) (test 9 mL/min/1.73 sq m ESTIMATED GFR IS NOT yyjc=9286) ACCURATE CREATININE CLEARANCE IN PREDICTING GLOMERULAR FILTRATION RATE. ESTIMATED GFR IS NOT APPLICABLE FOR DIALYSIS PATIENTS. BASIC METABOLIC [id number] 06:21:00 Test Item Value Reference Range Comments SODIUM (BEAKER) (test 133 meq/L 136-145 qyek=542) POTASSIUM (BEAKER) (test 4.6 meq/L 3.5-5.1 woik=333) CHLORIDE (BEAKER) (test 97 meq/L 98-107 ipbv=106) CO2 (BEAKER) (test 18 meq/L 22-29 xdck=321) BLOOD UREA NITROGEN 89 mg/dL 7-21 (BEAKER) (test mnot=538) CREATININE (BEAKER) (test 4.86 mg/dL 0.57-1.25 nbvz=354) GLUCOSE RANDOM (BEAKER) 117 mg/dL 70-105 (test crmh=869) CALCIUM (BEAKER) (test 7.9 mg/dL 8.4-10.2 bvas=330) EGFR (BEAKER) (test 9 mL/min/1.73 sq m ESTIMATED GFR IS NOT qetx=5660) ACCURATE CREATININE CLEARANCE IN PREDICTING GLOMERULAR FILTRATION RATE. ESTIMATED GFR IS NOT APPLICABLE FOR DIALYSIS PATIENTS. [id number] 05:54:00 Test Item Value Reference Range Comments MAGNESIUM (BEAKER) (test hczo=591) 2.4 mg/dL 1.6-2.6 CBC (HEMOGRAM ONLY)2018-03-21 05:23:00 Test Item Value Reference Range Comments WHITE BLOOD CELL COUNT (BEAKER) (test redr=642) 7.6 K/ L 3.5-10.5 RED BLOOD CELL COUNT (BEAKER) (test shhf=482) 3.13 M/ L 3.93-5.22 HEMOGLOBIN (BEAKER) (test lqvy=697) 10.1 GM/DL 11.2-15.7 HEMATOCRIT (BEAKER) (test ggcz=268) 32.1 % 34.1-44.9 MEAN CORPUSCULAR VOLUME (BEAKER) (test vlkb=452) 102.6 fL 79.4-94.8 MEAN CORPUSCULAR HEMOGLOBIN (BEAKER) (test 32.3 pg 25.6-32.2 vbfe=505) MEAN CORPUSCULAR HEMOGLOBIN CONC (BEAKER) (test 31.5 GM/DL 32.2-35.5 gcyk=437) RED CELL DISTRIBUTION WIDTH (BEAKER) (test 24.0 % 11.7-14.4 ioej=600) PLATELET COUNT (BEAKER) (test jhql=588) 68 K/CU MM 150-450 MEAN PLATELET VOLUME (BEAKER) (test kcbv=423) 14.4 fL 9.4-12.3 NUCLEATED RED BLOOD CELLS (BEAKER) (test 1 /100 WBC 0-0 awzm=965) BASIC METABOLIC [id number] 00:47:00 Test Item Value Reference Range Comments SODIUM (BEAKER) (test 134 meq/L 136-145 hows=811) POTASSIUM (BEAKER) (test 4.7 meq/L 3.5-5.1 xsdo=998) CHLORIDE (BEAKER) (test 97 meq/L 98-107 estv=520) CO2 (BEAKER) (test 22 meq/L 22-29 mupd=737) BLOOD UREA NITROGEN 86 mg/dL 7-21 (BEAKER) (test xtyf=132) CREATININE (BEAKER) (test 4.81 mg/dL 0.57-1.25 aifv=592) GLUCOSE RANDOM (BEAKER) 115 mg/dL 70-105 (test lkiq=572) CALCIUM (BEAKER) (test 7.9 mg/dL 8.4-10.2 puux=752) EGFR (BEAKER) (test 9 mL/min/1.73 sq m ESTIMATED GFR IS NOT tcbu=7906) ACCURATE CREATININE CLEARANCE IN PREDICTING GLOMERULAR FILTRATION RATE. ESTIMATED GFR IS NOT APPLICABLE FOR DIALYSIS PATIENTS. HEPATITIS C [id number] 13:26:00 Test Item Value Reference Range Comments HEPATITIS C ANTIBODY (BEAKER) (test vyvr=521) Nonreactive Nonreactive BASIC METABOLIC [id number] 13:08:00 Test Item Value Reference Range Comments SODIUM (BEAKER) (test 133 meq/L 136-145 khtc=088) POTASSIUM (BEAKER) (test 5.0 meq/L 3.5-5.1 invn=846) CHLORIDE (BEAKER) (test 92 meq/L 98-107 gvxu=085) CO2 (BEAKER) (test 21 meq/L 22-29 gcfn=153) BLOOD UREA NITROGEN 123 mg/dL 7-21 (BEAKER) (test edpj=791) CREATININE (BEAKER) (test 5.93 mg/dL 0.57-1.25 hpsl=528) GLUCOSE RANDOM (BEAKER) 108 mg/dL 70-105 (test jqxe=314) CALCIUM (BEAKER) (test 8.1 mg/dL 8.4-10.2 uoqu=513) EGFR (BEAKER) (test 7 mL/min/1.73 sq m ESTIMATED GFR IS NOT urlk=2918) ACCURATE CREATININE CLEARANCE IN PREDICTING GLOMERULAR FILTRATION RATE. ESTIMATED GFR IS NOT APPLICABLE FOR DIALYSIS PATIENTS. T4, [id number] 09:25:00 Test Item Value Reference Range Comments FREE T4 (BEAKER) (test ebyc=014) 0.67 ng/dL 0.70-1.48 TSH/FREE T4 IF [id number] 09:04:00 Test Item Value Reference Range Comments THYROID STIMULATING HORMONE (BEAKER) (test 7.12 uIU/mL 0.35-4.94 qpep=185) BASIC METABOLIC [id number] 07:17:00 Test Item Value Reference Range Comments SODIUM (BEAKER) (test 132 meq/L 136-145 tlue=756) POTASSIUM (BEAKER) (test 4.6 meq/L 3.5-5.1 gpvg=642) CHLORIDE (BEAKER) (test 92 meq/L 98-107 kbep=400) CO2 (BEAKER) (test 22 meq/L 22-29 zcsf=334) BLOOD UREA NITROGEN 119 mg/dL 7-21 (BEAKER) (test ezvz=606) CREATININE (BEAKER) (test 5.68 mg/dL 0.57-1.25 cern=713) GLUCOSE RANDOM (BEAKER) 108 mg/dL 70-105 (test vqbi=597) CALCIUM (BEAKER) (test 8.0 mg/dL 8.4-10.2 ints=835) EGFR (BEAKER) (test 8 mL/min/1.73 sq m ESTIMATED GFR IS NOT txhw=7374) ACCURATE CREATININE CLEARANCE IN PREDICTING GLOMERULAR FILTRATION RATE. ESTIMATED GFR IS NOT APPLICABLE FOR DIALYSIS PATIENTS. CBC (HEMOGRAM ONLY)2018-03-20 06:25:00 Test Item Value Reference Range Comments WHITE BLOOD CELL COUNT (BEAKER) (test tzxd=925) 7.0 K/ L 3.5-10.5 RED BLOOD CELL COUNT (BEAKER) (test ckyg=856) 2.95 M/ L 3.93-5.22 HEMOGLOBIN (BEAKER) (test uvce=762) 9.5 GM/DL 11.2-15.7 HEMATOCRIT (BEAKER) (test efzg=698) 29.3 % 34.1-44.9 MEAN CORPUSCULAR VOLUME (BEAKER) (test tqtl=185) 99.3 fL 79.4-94.8 MEAN CORPUSCULAR HEMOGLOBIN (BEAKER) (test 32.2 pg 25.6-32.2 cpye=437) MEAN CORPUSCULAR HEMOGLOBIN CONC (BEAKER) (test 32.4 GM/DL 32.2-35.5 mxwr=948) RED CELL DISTRIBUTION WIDTH (BEAKER) (test 22.7 % 11.7-14.4 cknr=449) PLATELET COUNT (BEAKER) (test vuat=415) 53 K/CU MM 150-450 NUCLEATED RED BLOOD CELLS (BEAKER) (test 1 /100 WBC 0-0 kspw=969) BASIC METABOLIC [id number] 03:08:00 Test Item Value Reference Range Comments SODIUM (BEAKER) (test 130 meq/L 136-145 mwrx=127) POTASSIUM (BEAKER) (test 4.9 meq/L 3.5-5.1 nryv=533) CHLORIDE (BEAKER) (test 92 meq/L 98-107 xuva=956) CO2 (BEAKER) (test 21 meq/L 22-29 wfii=558) BLOOD UREA NITROGEN 117 mg/dL 7-21 (BEAKER) (test warw=636) CREATININE (BEAKER) (test 5.66 mg/dL 0.57-1.25 bfga=385) GLUCOSE RANDOM (BEAKER) 124 mg/dL 70-105 (test vrfi=785) CALCIUM (BEAKER) (test 7.9 mg/dL 8.4-10.2 bqbu=823) EGFR (BEAKER) (test 8 mL/min/1.73 sq m ESTIMATED GFR IS NOT wodj=5308) ACCURATE CREATININE CLEARANCE IN PREDICTING GLOMERULAR FILTRATION RATE. ESTIMATED GFR IS NOT APPLICABLE FOR DIALYSIS PATIENTS. BASIC METABOLIC [id number] 20:16:00 Test Item Value Reference Range Comments SODIUM (BEAKER) (test 131 meq/L 136-145 noez=547) POTASSIUM (BEAKER) (test 5.0 meq/L 3.5-5.1 zdoi=183) CHLORIDE (BEAKER) (test 92 meq/L 98-107 erpp=927) CO2 (BEAKER) (test 22 meq/L 22-29 cqeo=423) BLOOD UREA NITROGEN 113 mg/dL 7-21 (BEAKER) (test zkoi=647) CREATININE (BEAKER) (test 5.58 mg/dL 0.57-1.25 gcjj=274) GLUCOSE RANDOM (BEAKER) 112 mg/dL 70-105 (test mmny=678) CALCIUM (BEAKER) (test 8.1 mg/dL 8.4-10.2 llia=748) EGFR (BEAKER) (test 8 mL/min/1.73 sq m ESTIMATED GFR IS NOT hawk=9373) ACCURATE CREATININE CLEARANCE IN PREDICTING GLOMERULAR FILTRATION RATE. ESTIMATED GFR IS NOT APPLICABLE FOR DIALYSIS PATIENTS. PROTEIN ELECTROPHORESIS, [id number] 17:31:00 Test Item Value Reference Range Comments ALBUMIN FRACTION (BEAKER) 2.7 g/dL 3.5-5.5 (test ygen=590) ALPHA 1 FRACTION (BEAKER) 0.4 g/dL 0.2-0.4 (test pzpq=943) ALPHA 2 FRACTION (BEAKER) 0.5 g/dL 0.5-0.9 (test wszw=984) BETA FRACTION (BEAKER) (test 0.8 g/dL 0.6-1.1 wcqn=304) GAMMA GLOBULIN FRACTION 2.2 g/dL 0.7-1.7 (BEAKER) (test cybv=142) INTERPRETATION-119 (BEAKER) Polyclonal elevation of gamma (test hhrd=8856) fraction, suggestive of chronic inflammatory response. Serum JUDSON pending to evaluate for presence of small underlying monoclonal protein in this region. [id number] Barbie Mccollum MD (BEAKER) (test tnse=5215) (electronic signature) PROTEIN TOTAL SERUM, SPEP 6.7 gm/dL 6.0-8.3 (BEAKER) (test zshu=4083) IMMUNOFIXATION ELECTROPHORESIS (JUDSON)2018-03-19 17:31:00 Test Item Value Reference Range Comments IMMUNOGLOBULIN G (IGG) (BEAKER) 2008 mg/dL 540-1822 (test lisy=245) IMMUNOGLOBULIN A (IGA) (BEAKER) 37 mg/dL 63-484 (test xjna=082) IMMUNOGLOBULIN M (IGM) (BEAKER) 673 mg/dL 22-293 (test vipi=764) SERUM JUDSON ID (BEAKER) (test No monoclonal proteins dmzm=9713) detected. Polyclonal elevation of gamma globulins. [id number] ([facility] Barbie Mccollum MD (test nxqb=8477) (electronic signature) ANTI-NUCLEAR ANTIBODY (SARAH)2018-03-19 10:18:00 Test Item Value Reference Range Comments ANTI-NUCLEAR ANTIBODY (SARAH) (BEAKER) (test Positive Negative zrui=305) Test performed by IFA method.SARAH TITER AND [id number] 10:18:00 Test Item Value Reference Range Comments SARAH TITER (BEAKER) (test gkpe=8018) >=:2560 SARAH PATTERN (BEAKER) (test fgff=4908) Speckled FLOW [id number] 09:17:00Flow Cytometry Report Case: [id number] Authorizing Provider: Jordan Sultana MD Collected: 03/17/2018 1500 Ordering Location: [address] Med/Surg Received: 03/17/2018 1714 Pathologist: Doug [...] findings in the bone marrow biopsy report([id number]) .[id number] wf with h/o right breast ca s/p surgery and chemo xrt in 2013 found to have recurrence with extensive metastases, started on carboplatin and gemcitabine in October 2017, transferred from [facility] for management of MAHA with REJI.BONE MARROW ASPIRATECD8, surface-Mcgehee, CD56, surface-Lambda, CD5 , CD19, CD10, CD3, CD20, CD4, CD45, CD14, CD13, CD33, CD117, CD34, cKappa, cLambda, CD38, SJ345Oazduuoh Viability: 92.4% Number of Events Acquired: [id number] The following populations are identified: Blasts: the [...] certified under the Clinical Laboratory Improvement Amendments [id number] ("CLIA") as qualified to perform high-complexity clinical testing.FLOW CYTOMETRY [id number] 09:16:00 Test Item Value Reference Range Comments FLOW CYTOMETRY RESULT POINTER (ADDY) See Separate Report (test geyn=9735) FLOW CYTOMETRY AP CASE # (ADDY) (test [id number] eebn=2584) BASIC METABOLIC [id number] 06:55:00 Test Item Value Reference Range Comments SODIUM (BEAKER) (test 131 meq/L 136-145 lkgk=932) POTASSIUM (BEAKER) (test 4.8 meq/L 3.5-5.1 mqdo=533) CHLORIDE (BEAKER) (test 93 meq/L 98-107 fvdw=613) CO2 (BEAKER) (test 20 meq/L 22-29 cewt=319) BLOOD UREA NITROGEN 99 mg/dL 7-21 (BEAKER) (test drus=503) CREATININE (BEAKER) (test 4.97 mg/dL 0.57-1.25 ocqg=199) GLUCOSE RANDOM (BEAKER) 100 mg/dL 70-105 (test owij=398) CALCIUM (BEAKER) (test 8.3 mg/dL 8.4-10.2 oozu=557) EGFR (BEAKER) (test 9 mL/min/1.73 sq m ESTIMATED GFR IS NOT wzeb=7028) ACCURATE CREATININE CLEARANCE IN PREDICTING GLOMERULAR FILTRATION RATE. ESTIMATED GFR IS NOT APPLICABLE FOR DIALYSIS PATIENTS. [id number] 06:54:00 Test Item Value Reference Range Comments PHOSPHORUS (BEAKER) (test uwxm=619) 7.0 mg/dL 2.3-4.7 PTH, [id number] 06:42:00 Test Item Value Reference Range Comments PARATHYROID HORMONE INTACT (BEAKER) (test 690.0 pg/mL 8.5-72.5 vrdj=343) VANCOMYCIN LEVEL, [id number] 06:33:00 Test Item Value Reference Range Comments VANCOMYCIN RANDOM (BEAKER) (test yhiv=812) 14.4 ug/mL Reference Range: No NormalsCBC (HEMOGRAM ONLY)2018-03-19 06:14:00 Test Item Value Reference Range Comments WHITE BLOOD CELL COUNT (BEAKER) (test tgne=523) 5.6 K/ L 3.5-10.5 RED BLOOD CELL COUNT (BEAKER) (test tdlv=684) 2.35 M/ L 3.93-5.22 HEMOGLOBIN (BEAKER) (test clbz=400) 7.6 GM/DL 11.2-15.7 HEMATOCRIT (BEAKER) (test fahb=678) 23.7 % 34.1-44.9 MEAN CORPUSCULAR VOLUME (BEAKER) (test rtpz=169) 100.9 fL 79.4-94.8 MEAN CORPUSCULAR HEMOGLOBIN (BEAKER) (test 32.3 pg 25.6-32.2 byxv=013) MEAN CORPUSCULAR HEMOGLOBIN CONC (BEAKER) (test 32.1 GM/DL 32.2-35.5 eeot=930) RED CELL DISTRIBUTION WIDTH (BEAKER) (test 23.4 % 11.7-14.4 kpys=495) PLATELET COUNT (BEAKER) (test obxg=866) 61 K/CU MM 150-450 NUCLEATED RED BLOOD CELLS (BEAKER) (test 1 /100 WBC 0-0 yojv=049) CBC W/PLT COUNT & AUTO [id number] 16:19:00 Test Item Value Reference Range Comments WHITE BLOOD CELL COUNT 5.0 K/ L 3.5-10.5 (BEAKER) (test hkph=438) RED BLOOD CELL COUNT (BEAKER) 2.35 M/ L 3.93-5.22 (test lihp=253) HEMOGLOBIN (BEAKER) (test 7.6 GM/DL 11.2-15.7 iazf=624) HEMATOCRIT (BEAKER) (test 23.2 % 34.1-44.9 mcxg=949) MEAN CORPUSCULAR VOLUME 98.7 fL 79.4-94.8 (BEAKER) (test byjp=994) MEAN CORPUSCULAR HEMOGLOBIN 32.3 pg 25.6-32.2 (BEAKER) (test fkor=582) MEAN CORPUSCULAR HEMOGLOBIN 32.8 GM/DL 32.2-35.5 CONC (BEAKER) (test zbat=110) RED CELL DISTRIBUTION WIDTH 22.5 % 11.7-14.4 (BEAKER) (test erfo=207) PLATELET COUNT (BEAKER) (test 65 K/CU MM 150-450 vssb=894) MEAN PLATELET VOLUME (BEAKER) fL 9.4-12.3 Unable to report due to (test ewnk=702) abnormal Platelet population distribution. NUCLEATED RED BLOOD CELLS 1 /100 WBC 0-0 (BEAKER) (test buvy=487) NEUTROPHILS RELATIVE PERCENT 77 % (BEAKER) (test cjqv=921) LYMPHOCYTES RELATIVE PERCENT 13 % (BEAKER) (test upxg=986) MONOCYTES RELATIVE PERCENT 9 % (BEAKER) (test prgx=947) EOSINOPHILS RELATIVE PERCENT 0 % (BEAKER) (test sbxq=438) BASOPHILS RELATIVE PERCENT 0 % (BEAKER) (test ooyx=085) NEUTROPHILS ABSOLUTE COUNT 3.82 K/ L 1.56-6.13 (BEAKER) (test xytj=983) LYMPHOCYTES ABSOLUTE COUNT 0.62 K/ L 1.18-3.74 (BEAKER) (test bayj=292) MONOCYTES ABSOLUTE COUNT 0.46 K/ L 0.24-0.36 (BEAKER) (test njyc=120) EOSINOPHILS ABSOLUTE COUNT 0.01 K/ L 0.04-0.36 (BEAKER) (test ydkr=945) BASOPHILS ABSOLUTE COUNT 0.01 K/ L 0.01-0.08 (BEAKER) (test skxk=604) IMMATURE GRANULOCYTES-RELATIVE 1 % 0-1 PERCENT (BEAKER) (test bsby=5732) BASIC METABOLIC [id number] 16:10:00 Test Item Value Reference Range Comments SODIUM (BEAKER) (test 129 meq/L 136-145 wwdr=779) POTASSIUM (BEAKER) (test 4.8 meq/L 3.5-5.1 cdtu=984) CHLORIDE (BEAKER) (test 94 meq/L 98-107 cltq=441) CO2 (BEAKER) (test 19 meq/L 22-29 yvll=409) BLOOD UREA NITROGEN 88 mg/dL 7-21 (BEAKER) (test xhhl=098) CREATININE (BEAKER) (test 4.42 mg/dL 0.57-1.25 jlqh=643) GLUCOSE RANDOM (BEAKER) 111 mg/dL 70-105 (test tkex=375) CALCIUM (BEAKER) (test 8.4 mg/dL 8.4-10.2 durn=622) EGFR (BEAKER) (test 10 mL/min/1.73 sq m ESTIMATED GFR IS NOT ognd=7844) ACCURATE CREATININE CLEARANCE IN PREDICTING GLOMERULAR FILTRATION RATE. ESTIMATED GFR IS NOT APPLICABLE FOR DIALYSIS PATIENTS. [id number] 11:52:00 Test Item Value Reference Range Comments HAPTOGLOBIN (BEAKER) (test lrpu=578) 34 mg/dL 14-258 PERIPHERAL BLOOD SMEAR - HOLD [id number] 10:25:00 Test Item Value Reference Range Comments PERIPHERAL SMEAR SAVE (BEAKER) (test fpmp=6858) saved CALCIUM, [id number] 09:40:00 Test Item Value Reference Range Comments CALCIUM IONIZED (BEAKER) (test pbui=952) 0.94 mmol/L 1.12-1.27 PH, BLOOD (BEAKER) (test bbco=6958) 7.48 LACTATE DEHYDROGENASE (LDH)2018-03-18 09:27:00 Test Item Value Reference Range Comments LACTATE DEHYDROGENASE (BEAKER) (test lyoo=863) 599 U/L 125-220 CBC (HEMOGRAM ONLY)2018-03-18 09:27:00 Test Item Value Reference Range Comments WHITE BLOOD CELL COUNT (BEAKER) (test tagf=702) 4.2 K/ L 3.5-10.5 RED BLOOD CELL COUNT (BEAKER) (test khxh=476) 2.34 M/ L 3.93-5.22 HEMOGLOBIN (BEAKER) (test ekmt=762) 7.4 GM/DL 11.2-15.7 HEMATOCRIT (BEAKER) (test dwvd=440) 22.8 % 34.1-44.9 MEAN CORPUSCULAR VOLUME (BEAKER) (test xyby=026) 97.4 fL 79.4-94.8 MEAN CORPUSCULAR HEMOGLOBIN (BEAKER) (test 31.6 pg 25.6-32.2 kcdh=222) MEAN CORPUSCULAR HEMOGLOBIN CONC (BEAKER) (test 32.5 GM/DL 32.2-35.5 gcdf=010) RED CELL DISTRIBUTION WIDTH (BEAKER) (test 22.5 % 11.7-14.4 xvqb=842) PLATELET COUNT (BEAKER) (test covg=800) 39 K/CU MM 150-450 NUCLEATED RED BLOOD CELLS (BEAKER) (test 1 /100 WBC 0-0 kxhh=206) RETICULOCYTE [id number] 09:24:00 Test Item Value Reference Range Comments RETICULOCYTE COUNT PCT (BEAKER) (test exar=010) 6.9 % 0.5-1.7 [id number] 09:16:00 Test Item Value Reference Range Comments D-DIMER QUANTITATIVE (BEAKER) (test jkhq=604) 3.18 MG/L FEU <0.50 Intended Use: The D-Dimer Assay can be used to aid in the diagnosis of Deep Vein Thrombosis (DVT) and Pulmonary Embolism Disease (PED).In patients with low pre-test probability, various studies concerning STA Liatest D-dimer test have reported that with a cutoff value of 0.50 MG/L FEU, the Negative Predictive Value (NPV) regarding the exclusion of thrombosis is within 95-100% range.[id number] 09:14:00 Test Item Value Reference Range Comments PARTIAL THROMBOPLASTIN TIME (BEAKER) (test 38.9 seconds 22.5-36.0 zhtp=207) PROTHROMBIN [id number] 09:13:00 Test Item Value Reference Range Comments PROTIME (BEAKER) (test dkrp=593) 15.3 seconds 11.7-14.7 INR (BEAKER) (test qrjq=620) 1.2 <=5.9 RECOMMENDED COUMADIN/WARFARIN INR THERAPY RANGESSTANDARD DOSE: 2.0 - 3.0 Includes: PROPHYLAXIS forvenous thrombosis, systemic embolization; TREATMENT for venous thrombosis and/or pulmonary embolus.HIGH RISK: Target INR is 2.5-3.5 for patients with mechanical heart valves.BASIC METABOLIC [id number] 08:52: 00 Test Item Value Reference Range Comments SODIUM (BEAKER) (test 135 meq/L 136-145 darr=900) POTASSIUM (BEAKER) (test 4.9 meq/L 3.5-5.1 zntc=883) CHLORIDE (BEAKER) (test 96 meq/L 98-107 faep=535) CO2 (BEAKER) (test 23 meq/L 22-29 ccpb=216) BLOOD UREA NITROGEN 77 mg/dL 7-21 (BEAKER) (test hfch=117) CREATININE (BEAKER) (test 4.04 mg/dL 0.57-1.25 smjd=500) GLUCOSE RANDOM (BEAKER) 137 mg/dL 70-105 (test bbgi=409) CALCIUM (BEAKER) (test 8.8 mg/dL 8.4-10.2 mlca=510) EGFR (BEAKER) (test 12 mL/min/1.73 sq m ESTIMATED GFR IS NOT wxsv=5772) ACCURATE CREATININE CLEARANCE IN PREDICTING GLOMERULAR FILTRATION RATE. ESTIMATED GFR IS NOT APPLICABLE FOR DIALYSIS PATIENTS. CALCIUM, [id number] 08:21:00 Test Item Value Reference Range Comments CALCIUM IONIZED (BEAKER) (test bihy=062) 0.72 mmol/L 1.12-1.27 PH, BLOOD (BEAKER) (test bbdn=5738) 7.46 OSMOLALITY, [id number] 07:36:00 Test Item Value Reference Range Comments OSMOLALITY URINE (BEAKER) (test nccv=017) 316 mOsm/kg 40-1400 OSMOLALITY, [id number] 07:34:00 Test Item Value Reference Range Comments OSMOLALITY, SERUM (BEAKER) (test xuhh=883) 303 mOsm/kg 275-295 CREATININE, RANDOM [id number] 07:26:00 Test Item Value Reference Range Comments CREATININE URINE (BEAKER) (test pdox=313) 36.3 mg/dL Reference Range: No NormalsPOTASSIUM, RANDOM [id number] 07:26:00 Test Item Value Reference Range Comments POTASSIUM URINE (BEAKER) (test gsko=616) 41.5 meq/L Reference Range: No NormalsSODIUM, RANDOM [id number] 07:26:00 Test Item Value Reference Range Comments SODIUM URINE (BEAKER) (test glop=013) 57 meq/L Reference Range: No NormalsUREA NITROGEN, RANDOM [id number] 07:26:00 Test Item Value Reference Range Comments UREA NITROGEN URINE (BEAKER) (test lslv=330) 298 mg/dL Reference Range: No NormalsPERIPHERAL BLOOD SMEAR - HOLD [id number] 07:20:00 Test Item Value Reference Range Comments PERIPHERAL SMEAR SAVE (BEAKER) (test hred=3264) saved BASIC METABOLIC [id number] 06:08:00 Test Item Value Reference Range Comments SODIUM (BEAKER) (test 128 meq/L 136-145 qdyw=652) POTASSIUM (BEAKER) (test 4.6 meq/L 3.5-5.1 qwon=654) CHLORIDE (BEAKER) (test 94 meq/L 98-107 biqd=725) CO2 (BEAKER) (test 20 meq/L 22-29 oojt=298) BLOOD UREA NITROGEN 84 mg/dL 7-21 (BEAKER) (test xriu=227) CREATININE (BEAKER) (test 4.34 mg/dL 0.57-1.25 nbwk=907) GLUCOSE RANDOM (BEAKER) 120 mg/dL 70-105 (test wsew=172) CALCIUM (BEAKER) (test 6.8 mg/dL 8.4-10.2 grmu=017) EGFR (BEAKER) (test 11 mL/min/1.73 sq m ESTIMATED GFR IS NOT xzoh=3746) ACCURATE CREATININE CLEARANCE IN PREDICTING GLOMERULAR FILTRATION RATE. ESTIMATED GFR IS NOT APPLICABLE FOR DIALYSIS PATIENTS. VANCOMYCIN LEVEL, [id number] 06:05:00 Test Item Value Reference Range Comments VANCOMYCIN RANDOM (JESSICAAKER) (test luwf=742) < ug/mL Reference Range: No NormalsCALCIUM, [id number] 04:20:00 Test Item Value Reference Range Comments CALCIUM IONIZED (BEAKER) (test edqu=271) 0.81 mmol/L 1.12-1.27 PH, BLOOD (BEAKER) (test yhsx=7760) 7.40 Range 1.12 - 1.73U-[id number] 03:54:00 Test Item Value Reference Range Comments D-DIMER QUANTITATIVE (BEAKER) (test kidw=627) 4.50 MG/L FEU <0.50 Intended Use: The D-Dimer Assay can be used to aid in the diagnosis of Deep Vein Thrombosis (DVT) and Pulmonary Embolism Disease (PED).In patients with low pre-test probability, various studies concerning STA Liatest D-dimer test have reported that with a cutoff value of 0.50 MG/L FEU, the Negative Predictive Value (NPV) regarding the exclusion of thrombosis is within 95-100% range.[id number] 02:58:00 Test Item Value Reference Range Comments PROCALCITONIN (JESSICAAKER) (test pjry=6571) 8.65 ng/mL <0.05 SEPSIS RISK (ng/mL)Low: 0.05-0.50Intermediate: 0.51-2.00High: & gt;=2.01TROPONIN [id number] 02:29:00 Test Item Value Reference Range Comments TROPONIN I (BEAKER) (test kujb=041) 0.77 ng/mL 0.00-0.03 Troponin I (TnI) levels [...] acute neurological disease, and persistent tachyarrhythmia.COMPREHENSIVE METABOLIC [id number] 02:11:00 Test Item Value Reference Range Comments TOTAL PROTEIN (BEAKER) 6.8 gm/dL 6.0-8.3 (test vmdo=697) ALBUMIN (BEAKER) (test 2.9 g/dL 3.5-5.0 iida=0753) ALKALINE PHOSPHATASE 100 U/L 40-150 (BEAKER) (test medg=912) BILIRUBIN TOTAL (BEAKER) 1.4 mg/dL 0.2-1.2 (test ixmk=148) SODIUM (BEAKER) (test 127 meq/L 136-145 lwng=323) POTASSIUM (BEAKER) (test 5.0 meq/L 3.5-5.1 nyhm=168) CHLORIDE (BEAKER) (test 101 meq/L 98-107 dpov=639) CO2 (BEAKER) (test 15 meq/L 22-29 pwho=479) BLOOD UREA NITROGEN 87 mg/dL 7-21 (BEAKER) (test wcbv=783) CREATININE (BEAKER) (test 4.62 mg/dL 0.57-1.25 qirn=502) GLUCOSE RANDOM (BEAKER) 128 mg/dL 70-105 (test xstr=131) CALCIUM (BEAKER) (test 6.9 mg/dL 8.4-10.2 drih=586) AST (SGOT) (BEAKER) (test 79 U/L 5-34 tvgu=059) ALT (SGPT) (BEAKER) (test 45 U/L 6-55 mhit=340) EGFR (BEAKER) (test 10 mL/min/1.73 sq m ESTIMATED GFR IS NOT ixtk=8113) ACCURATE CREATININE CLEARANCE IN PREDICTING GLOMERULAR FILTRATION RATE. ESTIMATED GFR IS NOT APPLICABLE FOR DIALYSIS PATIENTS. RAD, CHEST, 1 VIEW, NON [id number] 01:44:00Reason for exam:-> HEMODIALYSIS CATHTER PLACEMENTShould this [...] There is no pneumothorax. Signed: Haritha Vázquez MDReport Verified Date/Time: 03/18/2018 01:44:10 Reading Location: [facility] C013Y CT Body Reading Room [id number] 01:37:00 Test Item Value Reference Range Comments FIBRINOGEN LEVEL (BEAKER) (test rxbu=577) 466 mg/dl 225-434 [id number] 01:37:00 Test Item Value Reference Range Comments PARTIAL THROMBOPLASTIN TIME (BEAKER) (test 33.6 seconds 22.5-36.0 sndb=517) PROTHROMBIN [id number] 01:36:00 Test Item Value Reference Range Comments PROTIME (BEAKER) (test ahxo=344) 17.0 seconds 11.7-14.7 INR (BEAKER) (test fndu=185) 1.4 <=5.9 RECOMMENDED COUMADIN/WARFARIN INR THERAPY RANGESSTANDARD DOSE: 2.0 - 3.0 Includes: PROPHYLAXIS forvenous thrombosis, systemic embolization; TREATMENT for venous thrombosis and/or pulmonary embolus.HIGH RISK: Target INR is 2.5-3.5 for patients with mechanical heart valves.LACTIC ACID, VENOUS, WHOLE [id number] 01:26:00 Test Item Value Reference Range Comments LACTATE BLOOD VENOUS (2) (BEAKER) (test 1.7 mmol/L 0.5-2.2 tblg=8874) Effective 11/28/2015: Units/Reference Range ChangeNew: 0.5-2.2 mmol/L Previous: 5 -20 mg/dLCBC (HEMOGRAM ONLY)2018-03-18 01:16:00 Test Item Value Reference Range Comments WHITE BLOOD CELL COUNT (BEAKER) (test ibpc=354) 4.3 K/ L 3.5-10.5 RED BLOOD CELL COUNT (BEAKER) (test ylwx=311) 2.67 M/ L 3.93-5.22 HEMOGLOBIN (BEAKER) (test ergz=489) 8.6 GM/DL 11.2-15.7 HEMATOCRIT (BEAKER) (test kpkz=089) 25.6 % 34.1-44.9 MEAN CORPUSCULAR VOLUME (BEAKER) (test esdh=657) 95.9 fL 79.4-94.8 MEAN CORPUSCULAR HEMOGLOBIN (BEAKER) (test 32.2 pg 25.6-32.2 pwup=158) MEAN CORPUSCULAR HEMOGLOBIN CONC (BEAKER) (test 33.6 GM/DL 32.2-35.5 svow=824) RED CELL DISTRIBUTION WIDTH (BEAKER) (test 21.9 % 11.7-14.4 qmhr=319) PLATELET COUNT (BEAKER) (test ihob=496) 39 K/CU MM 150-450 NUCLEATED RED BLOOD CELLS (BEAKER) (test 1 /100 WBC 0-0 lsap=769) CT, BIOPSY, BONE [id number] 17:06:00Reason for exam:->pancytopenia in setting of metastatic breast cancer, chemotherapy held almost 2monthsFINAL REPORT PROCEDURE: CT-guided bone marrow biopsy DOSE REDUCTION: The examination was performed according to departmental dose- optimization program which includes automated exposure control, adjustment of the mA and/or kV according to patient size and/or use of iterative reconstruction technique. Clinical History: Pancytopenia Transmission System Operator: Marce Conscious sedation: Versed 1 mg,fentanyl 50 [...] was immediately removed and provided to the cath lab technologist. Subsequently a core biopsy was obtained using the outer sheath. The needle and sheath were removed.Postprocedure CT evaluation of the area revealed no significant hematoma. Patient tolerated the procedure well and remained hemodynamically stable throughout. IMPRESSION: Successful and uncomplicated CT -guided bone marrow aspiration and core biopsy. Signed: Jordan Sultanaort Verified Date/Time: 03/17/2018 17:06:03 Reading Location: [facility] Radiology Reading Room 05: 06 PMBONE MARROW PROCESS ([facility]2018-03-17 15:16:00 Test Item Value Reference Range Comments ANATOMIC CASE# (JESSICATON) (test tybb=8995) [id number] ORDERED BY DOCTOR# (ADDY) (test paat=6157) jordan Sultana m.d. PERFORMED BY DOCTOR# (ADDY) (test Jordan Sultana m.d. zbog=8542) CLOT RECEIVED? (BEAKER) (test kedo=8784) Yes BIOPSY RECEIVED? (BEAKER) (test rqvu=6727) Yes CULTURE RECEIVED? (BEAKER) (test rniz=5594) No FLOW RECEIVED? (BEAKER) (test zpiv=0008) Yes CYTOGENICS? (BEAKER) (test vonx=7851) Yes MOLECULAR GENETICS? (ADDY) (test No ytqc=5879) RAD, CHEST, 2 [id number] 13:39:00Reason for exam:->sobFINAL REPORT Comparison: 15/08/2017 TECHNIQUE: [facility] Room [id number] 13:20:00 Test Item Value Reference Range Comments HAPTOGLOBIN (BEAKER) (test phps=569) < mg/dL 14-258 COMPLEMENT COMPONENT [id number] 12:57:00 Test Item Value Reference Range Comments C4 COMPLEMENT (BEAKER) (test asvz=913) 22 mg/dL 15-57 COMPLEMENT COMPONENT [id number] 12:57:00 Test Item Value Reference Range Comments C3 COMPLEMENT (BEAKER) (test rpox=181) 94 mg/dL 82-193 PERIPHERAL BLOOD SMEAR - PATHOLOGIST [id number] 09:47:00 Test Item Value Reference Range Comments PERIPHERAL SMR REVIEW Normochromic normocytic anemia (BEAKER) (test ngky=0776) with rare schistocytes seen (1-2/ HPF). WBCs normal in number and morphology. Thrombocytopenia with a few large forms. [id number] Michelle Yu M.D. (electronic (BEAKER) (test hglo=9095) signature) TROPONIN [id number] 07:07:00 Test Item Value Reference Range Comments TROPONIN I (BEAKER) (test znlw=690) 1.56 ng/mL 0.00-0.15 Troponin I (TnI) levels [...] acute neurological disease, and persistent tachyarrhythmia.BASIC METABOLIC [id number] 07:06:00 Test Item Value Reference Range Comments SODIUM (BEAKER) (test 131 meq/L 135-148 gekn=635) POTASSIUM (BEAKER) (test 5.8 meq/L 3.6-5.5 ckhw=494) CHLORIDE (BEAKER) (test 107 meq/L 98-106 mjsn=336) CO2 (BEAKER) (test 12 meq/L 20-29 tebj=315) BLOOD UREA NITROGEN 74 mg/dL 10-26 (BEAKER) (test lddv=405) CREATININE (BEAKER) (test 3.95 mg/dL 0.50-1.20 ggsz=710) GLUCOSE RANDOM (BEAKER) 133 mg/dL 70-110 (test pofm=242) CALCIUM (BEAKER) (test 7.6 mg/dL 8.5-10.5 eskp=389) EGFR (BEAKER) (test 12 mL/min/1.73 sq m ESTIMATED GFR IS NOT uzmk=5843) ACCURATE CREATININE CLEARANCE IN PREDICTING GLOMERULAR FILTRATION RATE. ESTIMATED GFR IS NOT APPLICABLE FOR DIALYSIS PATIENTS. [id number] 06:45:00 Test Item Value Reference Range Comments MAGNESIUM (BEAKER) (test badb=791) 2.0 mg/dL 1.5-3.0 CBC W/PLT COUNT & AUTO [id number] 06:35:00 Test Item Value Reference Range Comments WHITE BLOOD CELL COUNT (BEAKER) (test luqh=580) 8.7 K/ L 4.0-10.0 RED BLOOD CELL COUNT (BEAKER) (test mrqr=530) 3.26 M/ L 4.00-5.00 HEMOGLOBIN (BEAKER) (test mpzn=886) 10.2 GM/DL 12.0-15.5 HEMATOCRIT (BEAKER) (test sjeo=624) 31.9 % 36.0-46.0 MEAN CORPUSCULAR VOLUME (BEAKER) (test naaq=268) 97.9 fL 82.0-99.0 MEAN CORPUSCULAR HEMOGLOBIN (BEAKER) (test 31.3 pg 27.0-33.0 ccbs=543) MEAN CORPUSCULAR HEMOGLOBIN CONC (BEAKER) (test 32.0 GM/DL 32.0-36.0 unra=692) RED CELL DISTRIBUTION WIDTH (BEAKER) (test 20.8 % 12.0-15.0 hucf=122) PLATELET COUNT (BEAKER) (test pozh=083) 62 K/CU MM 150-430 MEAN PLATELET VOLUME (BEAKER) (test wbby=243) 10.5 fL 6.0-11.5 NUCLEATED RED BLOOD CELLS (BEAKER) (test 0 /100 WBC 0-0 fjuf=809) NEUTROPHILS RELATIVE PERCENT (BEAKER) (test 80 % ykmj=323) LYMPHOCYTES RELATIVE PERCENT (BEAKER) (test 11 % hvro=768) MONOCYTES RELATIVE PERCENT (BEAKER) (test 8 % mouh=237) EOSINOPHILS RELATIVE PERCENT (BEAKER) (test 0 % gfng=379) BASOPHILS RELATIVE PERCENT (BEAKER) (test 0 % jnor=570) NEUTROPHILS ABSOLUTE COUNT (BEAKER) (test 6.95 K/ L 1.80-8.00 kacp=520) LYMPHOCYTES ABSOLUTE COUNT (BEAKER) (test 0.92 K/ L 1.48-4.50 qxhu=995) MONOCYTES ABSOLUTE COUNT (BEAKER) (test jxlr=492) 0.72 K/ L 0.00-1.30 EOSINOPHILS ABSOLUTE COUNT (BEAKER) (test 0.00 K/ L 0.00-0.50 tmjz=062) BASOPHILS ABSOLUTE COUNT (BEAKER) (test lbnv=865) 0.01 K/ L 0.00-0.20 IMMATURE GRANULOCYTES-RELATIVE PERCENT (BEAKER) 1 % 0-0 (test rkrj=5223) BLOOD GAS, [id number] 05:27:00 Test Item Value Reference Range Comments PH ARTERIAL (BEAKER) (test fbuj=581) 7.40 7.35-7.45 PCO2 ARTERIAL (BEAKER) (test ffru=080) 18 mmHg 35-45 PO2 ARTERIAL (BEAKER) (test qvbt=432) 72 mmHg 80-90 O2 SATURATION ARTERIAL (BEAKER) (test sqil=838) 94.7 % 96.0-97.0 HCO3 ARTERIAL (BEAKER) (test bxru=120) 11 mmol/L 21-29 BASE EXCESS ARTERIAL (BEAKER) (test zymj=692) -12.0 mmol/L -2.0-3.0 PATIENT TEMPERATURE (BEAKER) (test yxil=0797) 37.5 C FIO2 (BEAKER) (test ebtm=0653) 28.0 % PROTEIN, RANDOM [id number] 00:47:00 Test Item Value Reference Range Comments PROTEIN, URINE (BEAKER) (test rqfc=4554) 432 mg/dL 0-14 CREATININE, RANDOM [id number] 00:03:00 Test Item Value Reference Range Comments CREATININE URINE (BEAKER) (test zmex=968) 68.6 mg/dL Reference Range: No NormalsURINALYSIS W/ [id number] 23:56:00 Test Item Value Reference Range Comments COLOR (BEAKER) (test qcdk=782) Yellow CLARITY (BEAKER) (test wufj=932) Clear SPECIFIC GRAVITY UA (BEAKER) (test ovzf=453) 1.020 1.001-1.035 PH UA (BEAKER) (test tdcz=831) 5.5 5.0-8.0 PROTEIN UA (BEAKER) (test lajs=144) >=300 mg/dL Negative GLUCOSE UA (BEAKER) (test sdiw=348) Negative Negative KETONES UA (BEAKER) (test xalz=648) Negative Negative BILIRUBIN UA (BEAKER) (test ishx=959) Negative Negative BLOOD UA (BEAKER) (test sjho=472) Large Negative NITRITE UA (BEAKER) (test foli=032) Negative Negative LEUKOCYTE ESTERASE UA (BEAKER) (test yqfq=806) Trace Negative UROBILINOGEN UA (BEAKER) (test wqud=846) 0.2 mg/dL 0.2-1.0 BACTERIA (BEAKER) (test lfef=620) Occasional AMORPHOUS CRYSTALS (BEAKER) (test vyeu=2950) Few RBC UA-MANUAL (BEAKER) (test nkoz=1563) 5-10 /HPF WBC UA-MANUAL (BEAKER) (test wuwj=5035) <5 /HPF SQUAMOUS EPITHELIAL MANUAL (BEAKER) (test 5-10 /HPF lixx=2782) GRANULAR CASTS MANUAL (BEAKER) (test vpqh=0090) Few /LPF SOURCE(BEAKER) (test zehc=0356) KETONE, [id number] 22:28:00 Test Item Value Reference Range Comments KETONES, BLOOD (BEAKER) (test zlvw=4452) 0.3 mmol/L <0.4 BILIRUBIN, TOTAL AND [id number] 22:17:00 Test Item Value Reference Range Comments BILIRUBIN TOTAL (BEAKER) (test hlwz=616) 2.1 mg/dL 0.1-1.2 BILIRUBIN DIRECT (BEAKER) (test dbha=391) 1.1 mg/dL 0.0-0.4 LACTATE DEHYDROGENASE (LDH)[id number] 22:16:00 Test Item Value Reference Range Comments LACTATE DEHYDROGENASE (BEAKER) (test drag=186) 1540 U/L 107-206 TROPONIN [id number] 19:44:00 Test Item Value Reference Range Comments TROPONIN I (BEAKER) (test uygm=198) 0.24 ng/mL 0.00-0.15 Troponin I (TnI) levels [...] acidosis, acute neurological disease, and persistent tachyarrhythmia.TROPONIN [id number] 10:58:00 Test Item Value Reference Range Comments TROPONIN I (BEAKER) (test wqwg=234) 0.17 ng/mL 0.00-0.15 Troponin I (TnI) levels [...] and persistent tachyarrhythmia.CREATINE KINASE (CK), TOTAL AND [id number] 10:57:00 Test Item Value Reference Range Comments CREATINE KINASE TOTAL (BEAKER) (test jsjq=822) 125 U/L 25-235 CREATINE KINASE-MB (BEAKER) (test azgy=272) 0.9 ng/mL 0.0-4.9 CREATINE KINASE-MB INDEX (BEAKER) (test xebu=102) 0.7 % CK-MB Reference Range:<5 Normal5-10 Borderline>10 AbnormalCOMPREHENSIVE METABOLIC [id number] 10:53:00 Test Item Value Reference Range Comments TOTAL PROTEIN (BEAKER) 7.7 gm/dL 6.0-8.5 (test ygnr=054) ALBUMIN (BEAKER) (test 3.4 g/dL 3.5-5.0 edgk=3789) ALKALINE PHOSPHATASE 45 U/L 30-115 (BEAKER) (test xgey=658) BILIRUBIN TOTAL (BEAKER) 1.4 mg/dL 0.1-1.2 (test lqne=553) SODIUM (BEAKER) (test 132 meq/L 135-148 curd=054) POTASSIUM (BEAKER) (test 4.8 meq/L 3.6-5.5 waef=863) CHLORIDE (BEAKER) (test 106 meq/L 98-106 ckzx=091) CO2 (BEAKER) (test 13 meq/L 20-29 qysz=527) BLOOD UREA NITROGEN 63 mg/dL 10-26 (BEAKER) (test crnj=549) CREATININE (BEAKER) (test 3.73 mg/dL 0.50-1.20 odty=762) GLUCOSE RANDOM (BEAKER) 94 mg/dL 70-110 (test rvnn=972) CALCIUM (BEAKER) (test 8.2 mg/dL 8.5-10.5 yzyi=097) AST (SGOT) (BEAKER) (test 59 U/L 5-40 ptsp=319) ALT (SGPT) (BEAKER) (test 23 U/L 5-50 olei=536) EGFR (BEAKER) (test 13 mL/min/1.73 sq m ESTIMATED GFR IS NOT vusc=0199) ACCURATE CREATININE CLEARANCE IN PREDICTING GLOMERULAR FILTRATION RATE. ESTIMATED GFR IS NOT APPLICABLE FOR DIALYSIS PATIENTS. URINALYSIS W/ [id number] 10:49:00 Test Item Value Reference Range Comments COLOR (BEAKER) (test iuvl=707) Yellow CLARITY (BEAKER) (test sbwp=764) Clear SPECIFIC GRAVITY UA (BEAKER) (test svub=843) 1.020 1.001-1.035 PH UA (BEAKER) (test upmy=618) 5.5 5.0-8.0 PROTEIN UA (BEAKER) (test rclh=429) >=300 mg/dL Negative GLUCOSE UA (BEAKER) (test hzzp=168) Negative Negative KETONES UA (BEAKER) (test mume=438) Negative Negative BILIRUBIN UA (BEAKER) (test jjxz=500) Negative Negative BLOOD UA (BEAKER) (test rpnc=417) Large Negative NITRITE UA (BEAKER) (test oruc=117) Negative Negative LEUKOCYTE ESTERASE UA (BEAKER) (test vjnj=828) Negative Negative UROBILINOGEN UA (BEAKER) (test xfyl=733) 0.2 mg/dL 0.2-1.0 BACTERIA (BEAKER) (test svjg=695) Few AMORPHOUS CRYSTALS (BEAKER) (test pojt=9269) Moderate RBC UA-MANUAL (BEAKER) (test varp=0126) 5-10 /HPF WBC UA-MANUAL (BEAKER) (test krno=1591) <5 /HPF SQUAMOUS EPITHELIAL MANUAL (BEAKER) (test 5-10 /HPF mlmi=2191) WAXY CASTS MANUAL (BEAKER) (test aqat=8434) 5-10 /LPF SOURCE(BEAKER) (test fhoz=8874) CBC W/PLT COUNT & AUTO [id number] 10:49:00 Test Item Value Reference Range Comments WHITE BLOOD CELL COUNT (BEAKER) (test ucbn=001) 4.0 K/ L 4.0-10.0 RED BLOOD CELL COUNT (BEAKER) (test llaw=857) 1.64 M/ L 4.00-5.00 HEMOGLOBIN (BEAKER) (test njec=503) 5.5 GM/DL 12.0-15.5 HEMATOCRIT (BEAKER) (test tzpy=418) 17.6 % 36.0-46.0 MEAN CORPUSCULAR VOLUME (BEAKER) (test pxfl=359) 107.3 fL 82.0-99.0 MEAN CORPUSCULAR HEMOGLOBIN (BEAKER) (test 33.5 pg 27.0-33.0 kdlp=583) MEAN CORPUSCULAR HEMOGLOBIN CONC (BEAKER) (test 31.3 GM/DL 32.0-36.0 oqgx=979) RED CELL DISTRIBUTION WIDTH (BEAKER) (test 23.5 % 12.0-15.0 vnxc=553) PLATELET COUNT (BEAKER) (test utfh=746) 66 K/CU MM 150-430 MEAN PLATELET VOLUME (BEAKER) (test pmpc=980) 11.3 fL 6.0-11.5 NUCLEATED RED BLOOD CELLS (BEAKER) (test 0 /100 WBC 0-0 yvyq=446) NEUTROPHILS RELATIVE PERCENT (BEAKER) (test 81 % gsuq=382) LYMPHOCYTES RELATIVE PERCENT (BEAKER) (test 9 % byue=027) MONOCYTES RELATIVE PERCENT (BEAKER) (test 9 % loct=299) EOSINOPHILS RELATIVE PERCENT (BEAKER) (test 0 % ucnm=935) BASOPHILS RELATIVE PERCENT (BEAKER) (test 0 % mytb=887) NEUTROPHILS ABSOLUTE COUNT (BEAKER) (test 3.21 K/ L 1.80-8.00 bqys=408) LYMPHOCYTES ABSOLUTE COUNT (BEAKER) (test 0.36 K/ L 1.48-4.50 ewpg=421) MONOCYTES ABSOLUTE COUNT (BEAKER) (test xhsx=549) 0.34 K/ L 0.00-1.30 EOSINOPHILS ABSOLUTE COUNT (BEAKER) (test 0.01 K/ L 0.00-0.50 vwtw=240) BASOPHILS ABSOLUTE COUNT (BEAKER) (test vqlg=084) 0.00 K/ L 0.00-0.20 IMMATURE GRANULOCYTES-RELATIVE PERCENT (BEAKER) 1 % 0-0 (test iina=1991) (MANUAL DIFFERENTIAL)2018-03-16 10:49:00 Test Item Value Reference Range Comments TOTAL COUNTED (BEAKER) (test ypht=9963) WBC MORPHOLOGY (BEAKER) (test zxxa=977) Normal PLT MORPHOLOGY (BEAKER) (test lzip=282) Normal SCHISTOCYTES (BEAKER) (test rzqo=419) 1+ few ANISOCYTOSIS (BEAKER) (test uwky=879) 1+ few MACROCYTES (BEAKER) (test btgu=838) 1+ few MICROCYTES (BEAKER) (test mtnt=223) 1+ few POIKILOCYTES (BEAKER) (test yoxq=711) 1+ few POLYCHROMATOPHILLIC RBCS(BEAKER) (test rqbx=759) 1+ few [id number] 10:46:00 Test Item Value Reference Range Comments PROTIME (BEAKER) (test lxby=416) 11.1 sec 9.3-12.0 INR (BEAKER) (test negf=093) 1.0 <=5.9 PARTIAL THROMBOPLASTIN TIME (BEAKER) (test 31.0 sec 23.0-35.0 krar=092) RECOMMENDED COUMADIN/WARFARIN INR THERAPY RANGESSTANDARD DOSE: 2.0 - 3.0 Includes: PROPHYLAXIS forvenous thrombosis, systemic embolization; TREATMENT for venous thrombosis and/or pulmonary embolus.HIGH RISK: Target INR is 2.5-3.5 for patients with mechanical heart valves.Final Information (Auto Output)Final Information (Auto Output)Final Information (Auto Output)LACTIC ACID, VENOUS, WHOLE [id number] 10:45:00 Test Item Value Reference Range Comments LACTATE BLOOD VENOUS (2) (BEAKER) (test 2.2 mmol/L 0.5-2.2 xhel=5052) Effective 11/28/2015: Units/Reference Range ChangeNew: 0.5-2.2 mmol/L Previous: 5 -18 mg/dLRAD, CHEST, 1 VIEW, NON [id number] 10:14:00Reason for exam:-> chest painIs the patient [...] [facility] Reading Room 10: 14 AMBLOOD [id number] 22:01:00 Test Item Value Reference Range Comments CULTURE (BEAKER) (test qtdx=2501) No growth in 5 days BLOOD [id number] 22:01:00 Test Item Value Reference Range Comments CULTURE (BEAKER) (test fwtg=4839) No growth in 5 days RESPIRATORY PANEL [id number] 09:21:00 Test Item Value Reference Range Comments HUMAN METAPNEUMOVIRUS (BEAKER) (test Not detected Not detected, Inconclusive nuci=8146) RHINOVIRUS (BEAKER) (test iufx=4946) Not detected Not detected, Inconclusive INFLUENZA A (BEAKER) (test Not detected Not detected, Inconclusive xrru=1219) INFLUENZA A SUBTYPE H1 (BEAKER) Not detected Not detected, Inconclusive (test quyy=7664) INFLUENZA A SUBTYPE H3 (BEAKER) Not detected Not detected, Inconclusive (test isuo=6695) INFLUENZA A SUBTYPE H1-2009 (BEAKER) Not detected Not detected, Inconclusive (test zaff=7047) INFLUENZA B (BEAKER) (test Not detected Not detected, Inconclusive bkgp=5793) RESPIRATORY SYNCYTIAL VIRUS (BEAKER) Not detected Not detected, Inconclusive (test pard=0613) PARAINFLUENZA VIRUS 1 (BEAKER) (test Not detected Not detected, Inconclusive owel=1928) PARAINFLUENZA VIRUS 2 (BEAKER) (test Not detected Not detected, Inconclusive gdrf=0176) PARAINFLUENZA VIRUS 3 (BEAKER) (test Not detected Not detected, Inconclusive xlcm=7321) PARAINFLUENZA VIRUS 4 (BEAKER) (test Not detected Not detected, Inconclusive nbxl=1534) ADENOVIRUS (BEAKER) (test fkhj=6009) Not detected Not detected, Inconclusive CORONAVIRUS 229E (BEAKER) (test Not detected Not detected, Inconclusive tqgc=8118) CORONAVIRUS HKU1 (BEAKER) (test Not detected Not detected, Inconclusive aldj=9442) CORONAVIRUS NL63 (BEAKER) (test Not detected Not detected, Inconclusive crfp=2113) CORONAVIRUS OC43 (BEAKER) (test Not detected Not detected, Inconclusive yigt=8194) BORDETELLA PERTUSSIS (BEAKER) (test Not detected Not detected, Inconclusive jtma=6601) CHLAMYDOPHILA PNEUMONIAE (BEAKER) Not detected Not detected, Inconclusive (test zodi=1225) MYCOPLASMA PNEUMONIAE (BEAKER) (test Not detected Not detected, Inconclusive hznz=2095) VANCOMYCIN LEVEL, [id number] 07:38:00 Test Item Value Reference Range Comments VANCOMYCIN TROUGH (BEAKER) (test npvy=922) 11.7 ug/mL 10.0-20.0 URINE [id number] 08:56:00 Test Item Value Reference Range Comments CULTURE (BEAKER) (test omyk=4560) No growth CBC W/PLT COUNT & AUTO [id number] 06:39:00 Test Item Value Reference Range Comments WHITE BLOOD CELL COUNT (BEAKER) (test dtow=476) 2.4 K/ L 4.0-10.0 RED BLOOD CELL COUNT (BEAKER) (test hjcn=746) 2.56 M/ L 4.00-5.00 HEMOGLOBIN (BEAKER) (test llns=224) 8.4 GM/DL 12.0-15.0 HEMATOCRIT (BEAKER) (test rfti=090) 24.6 % 36.0-45.0 MEAN CORPUSCULAR VOLUME (BEAKER) (test qomy=531) 96.4 fL 82.0-99.0 MEAN CORPUSCULAR HEMOGLOBIN (BEAKER) (test 33.0 pg 27.0-33.0 auhz=831) MEAN CORPUSCULAR HEMOGLOBIN CONC (BEAKER) (test 34.2 GM/DL 32.0-36.0 ckmo=571) RED CELL DISTRIBUTION WIDTH (BEAKER) (test 19.7 % 10.3-14.2 uzbg=204) PLATELET COUNT (BEAKER) (test ivkg=768) 108 K/CU MM 150-430 MEAN PLATELET VOLUME (BEAKER) (test jcdd=124) 8.8 fL 6.5-10.5 NUCLEATED RED BLOOD CELLS (BEAKER) (test 0 /100 WBC 0-0 fucz=304) (MANUAL DIFFERENTIAL)2017-12-10 06:39:00 Test Item Value Reference Range Comments NEUTROPHILS - REL (DIFF) (BEAKER) (test mnio=0155) 83 % LYMPHOCYTES - REL (DIFF) (BEAKER) (test egkk=3174) 15 % MONOCYTES - REL (DIFF) (BEAKER) (test arcp=6094) 2 % NEUTROPHILS - ABS (DIFF) (BEAKER) (test bygr=6638) 1.99 K/ L 1.80-8.00 LYMPHOCYTES - ABS (DIFF) (BEAKER) (test dkse=7488) 0.36 K/ L 1.48-4.50 MONOCYTES - ABS (DIFF) (BEAKER) (test tpvo=9684) 0.05 K/ L 0.00-1.30 TOTAL COUNTED (BEAKER) (test cqfn=3278) 100 WBC MORPHOLOGY (BEAKER) (test fgeh=178) Normal PLT MORPHOLOGY (BEAKER) (test svuj=084) Normal RBC MORPHOLOGY (BEAKER) (test ugaw=606) Normal POCT-GLUCOSE [id number] 14:39:00 Test Item Value Reference Range Comments POC-GLUCOSE METER (BEAKER) 125 mg/dL 70-110 TESTED AT [address] (test pqgf=8366) [facility] [address] CBC W/PLT COUNT & AUTO [id number] 06:47:00 Test Item Value Reference Range Comments WHITE BLOOD CELL COUNT (BEAKER) (test 2.2 K/ L 4.0-10.0 ppmd=062) RED BLOOD CELL COUNT (BEAKER) (test 2.72 M/ L 4.00-5.00 qrbc=545) HEMOGLOBIN (BEAKER) (test ahfw=216) 9.1 GM/DL 12.0-15.0 HEMATOCRIT (BEAKER) (test uzeo=655) 26.2 % 36.0-45.0 MEAN CORPUSCULAR VOLUME (BEAKER) (test 96.3 fL 82.0-99.0 epzp=395) MEAN CORPUSCULAR HEMOGLOBIN (BEAKER) 33.3 pg 27.0-33.0 (test lxsz=230) MEAN CORPUSCULAR HEMOGLOBIN CONC 34.5 GM/DL 32.0-36.0 (BEAKER) (test yhck=401) RED CELL DISTRIBUTION WIDTH (BEAKER) 18.3 % 10.3-14.2 (test rozx=751) PLATELET COUNT (BEAKER) (test dzkz=895) 129 K/CU MM 150-430 No clot detected MEAN PLATELET VOLUME (BEAKER) (test 7.8 fL 6.5-10.5 vnyg=558) NEUTROPHILS RELATIVE PERCENT (BEAKER) 81 % (test ntbz=233) LYMPHOCYTES RELATIVE PERCENT (BEAKER) 14 % (test nfwe=828) MONOCYTES RELATIVE PERCENT (BEAKER) 4 % (test jtnl=469) EOSINOPHILS RELATIVE PERCENT (BEAKER) 0 % (test bokn=608) BASOPHILS RELATIVE PERCENT (BEAKER) 0 % (test nvvu=675) NEUTROPHILS ABSOLUTE COUNT (BEAKER) 1.80 K/ L 1.80-8.00 (test vnyo=605) LYMPHOCYTES ABSOLUTE COUNT (BEAKER) 0.30 K/ L 1.48-4.50 (test aibv=689) MONOCYTES ABSOLUTE COUNT (BEAKER) (test 0.10 K/ L 0.00-1.30 oyyq=033) EOSINOPHILS ABSOLUTE COUNT (BEAKER) 0.00 K/ L 0.00-0.50 (test wfbl=998) BASOPHILS ABSOLUTE COUNT (BEAKER) (test 0.00 K/ L 0.00-0.20 wtlk=545) BASIC METABOLIC [id number] 05:54:00 Test Item Value Reference Range Comments SODIUM (BEAKER) (test 138 meq/L 135-148 gpqe=003) POTASSIUM (BEAKER) (test 3.9 meq/L 3.6-5.5 fhwu=271) CHLORIDE (BEAKER) (test 105 meq/L 98-106 rncm=905) CO2 (BEAKER) (test 26 meq/L 20-29 kdjb=671) BLOOD UREA NITROGEN 14 mg/dL 10-26 (BEAKER) (test lkhh=001) CREATININE (BEAKER) (test 0.76 mg/dL 0.50-1.20 ouef=178) GLUCOSE RANDOM (BEAKER) 84 mg/dL 70-110 (test ekfy=083) CALCIUM (BEAKER) (test 8.2 mg/dL 8.5-10.5 cimt=394) EGFR (BEAKER) (test 80 mL/min/1.73 sq m ESTIMATED GFR IS NOT rgse=0567) ACCURATE CREATININE CLEARANCE IN PREDICTING GLOMERULAR FILTRATION RATE. ESTIMATED GFR IS NOT APPLICABLE FOR DIALYSIS PATIENTS. RAD, CHEST, 2 [id number] 19:36:00Reason for exam:->FEVERIs the patient ?->NoShould this [...] MDReport Verified Date/Time: 12/08/2017 19:36:34 Reading Location: [facility] B1 [id number] Consult Reading Room URINALYSIS W/ [id number] 19:33:00 Test Item Value Reference Range Comments COLOR (BEAKER) (test wzgr=658) Yellow CLARITY (BEAKER) (test faie=456) Clear SPECIFIC GRAVITY UA (BEAKER) (test xnua=457) <= 1.001-1.035 PH UA (BEAKER) (test lupo=616) 5.5 5.0-8.0 PROTEIN UA (BEAKER) (test pxjj=052) Negative Negative GLUCOSE UA (BEAKER) (test pipz=679) Negative Negative KETONES UA (BEAKER) (test zhpq=992) Negative Negative BILIRUBIN UA (BEAKER) (test qkhf=324) Negative Negative BLOOD UA (BEAKER) (test tvum=480) Negative Negative NITRITE UA (BEAKER) (test nytk=917) Negative Negative LEUKOCYTE ESTERASE UA (BEAKER) (test xpcn=523) Negative Negative UROBILINOGEN UA (BEAKER) (test gofq=332) 0.2 mg/dL 0.2-1.0 BACTERIA (BEAKER) (test ehgi=499) Occasional RBC UA-MANUAL (BEAKER) (test aube=6152) <5 /HPF WBC UA-MANUAL (BEAKER) (test hifg=8573) <5 /HPF SQUAMOUS EPITHELIAL MANUAL (BEAKER) (test <5 /HPF gmaa=1179) SOURCE(BEAKER) (test qpad=0197) COMPREHENSIVE METABOLIC [id number] 19:01:00 Test Item Value Reference Range Comments TOTAL PROTEIN (BEAKER) 8.1 gm/dL 6.0-8.5 (test wkxq=152) ALBUMIN (BEAKER) (test 4.1 g/dL 3.5-5.0 slqa=8315) ALKALINE PHOSPHATASE 75 U/L 30-115 (BEAKER) (test dhzz=285) BILIRUBIN TOTAL (BEAKER) 0.6 mg/dL 0.1-1.2 (test jyzh=400) SODIUM (BEAKER) (test 132 meq/L 135-148 mume=898) POTASSIUM (BEAKER) (test 3.6 meq/L 3.6-5.5 mibk=736) CHLORIDE (BEAKER) (test 97 meq/L 98-106 rhqo=562) CO2 (BEAKER) (test 23 meq/L 20-29 juns=021) BLOOD UREA NITROGEN 18 mg/dL 10-26 (BEAKER) (test krkj=146) CREATININE (BEAKER) (test 1.02 mg/dL 0.50-1.20 npba=619) GLUCOSE RANDOM (BEAKER) 102 mg/dL 70-110 (test hzdu=352) CALCIUM (BEAKER) (test 8.6 mg/dL 8.5-10.5 uwek=182) AST (SGOT) (BEAKER) (test 38 U/L 5-40 xous=932) ALT (SGPT) (BEAKER) (test 49 U/L 5-50 tlir=619) EGFR (BEAKER) (test 57 mL/min/1.73 sq m ESTIMATED GFR IS NOT efob=0040) ACCURATE CREATININE CLEARANCE IN PREDICTING GLOMERULAR FILTRATION RATE. ESTIMATED GFR IS NOT APPLICABLE FOR DIALYSIS PATIENTS. LACTIC ACID, VENOUS, WHOLE [id number] 18:53:00 Test Item Value Reference Range Comments LACTATE BLOOD VENOUS (2) (BEAKER) (test 0.8 mmol/L 0.5-2.2 xuwg=9352) Effective 11/28/2015: Units/Reference Range ChangeNew: 0.5-2.2 mmol/L Previous: 5 -18 mg/dLCBC W/PLT COUNT & AUTO [id number] 18:36:00 Test Item Value Reference Range Comments WHITE BLOOD CELL COUNT (BEAKER) (test ossa=692) 3.5 K/ L 4.0-10.0 RED BLOOD CELL COUNT (BEAKER) (test lxnp=689) 2.95 M/ L 4.00-5.00 HEMOGLOBIN (BEAKER) (test hned=278) 9.7 GM/DL 12.0-15.0 HEMATOCRIT (BEAKER) (test etnv=883) 28.5 % 36.0-45.0 MEAN CORPUSCULAR VOLUME (BEAKER) (test yinm=773) 96.6 fL 82.0-99.0 MEAN CORPUSCULAR HEMOGLOBIN (BEAKER) (test 32.9 pg 27.0-33.0 dcpg=927) MEAN CORPUSCULAR HEMOGLOBIN CONC (BEAKER) (test 34.0 GM/DL 32.0-36.0 wevv=461) RED CELL DISTRIBUTION WIDTH (BEAKER) (test 18.5 % 10.3-14.2 aihl=958) PLATELET COUNT (BEAKER) (test aarx=436) 187 K/CU MM 150-430 MEAN PLATELET VOLUME (BEAKER) (test uilh=363) 7.8 fL 6.5-10.5 NEUTROPHILS RELATIVE PERCENT (BEAKER) (test 84 % qopq=541) LYMPHOCYTES RELATIVE PERCENT (BEAKER) (test 10 % qqzo=759) MONOCYTES RELATIVE PERCENT (BEAKER) (test 5 % jhxx=602) EOSINOPHILS RELATIVE PERCENT (BEAKER) (test 0 % tdfw=610) BASOPHILS RELATIVE PERCENT (BEAKER) (test 0 % noae=472) NEUTROPHILS ABSOLUTE COUNT (BEAKER) (test 2.90 K/ L 1.80-8.00 wwwd=166) LYMPHOCYTES ABSOLUTE COUNT (BEAKER) (test 0.40 K/ L 1.48-4.50 tudw=707) MONOCYTES ABSOLUTE COUNT (BEAKER) (test 0.20 K/ L 0.00-1.30 zuxv=948) EOSINOPHILS ABSOLUTE COUNT (BEAKER) (test 0.00 K/ L 0.00-0.50 jfwh=625) BASOPHILS ABSOLUTE COUNT (BEAKER) (test 0.00 K/ L 0.00-0.20 iaft=460) BLOOD [id number] 13:00:00 Test Item Value Reference Range Comments CULTURE (BEAKER) (test kdzc=5986) No growth in 5 days BLOOD [id number] 10:00:00 Test Item Value Reference Range Comments CULTURE (BEAKER) (test gkjj=8771) No growth in 5 days VANCOMYCIN LEVEL, [id number] 14:26:00 Test Item Value Reference Range Comments VANCOMYCIN TROUGH (BEAKER) (test wjut=657) 9.8 ug/mL 10.0-20.0 VANCOMYCIN DOSING BY RX PER DR. Kowalski PRIOR TO 4th DOSE ON 10/22/17 AT13: 30URINE [id number] 08:16:00 Test Item Value Reference Range Comments CULTURE (BEAKER) (test bszl=8457) No growth (MANUAL DIFFERENTIAL)2017-10-22 07:06:00 Test Item Value Reference Range Comments NEUTROPHILS - REL (DIFF) (BEAKER) (test ybaw=5332) 69 % LYMPHOCYTES - REL (DIFF) (BEAKER) (test bodt=2316) 27 % MONOCYTES - REL (DIFF) (BEAKER) (test cexr=4077) 4 % NEUTROPHILS - ABS (DIFF) (BEAKER) (test dxmr=6529) 1.52 K/ L 1.80-8.00 LYMPHOCYTES - ABS (DIFF) (BEAKER) (test qdvb=2703) 0.59 K/ L 1.48-4.50 MONOCYTES - ABS (DIFF) (BEAKER) (test jlme=3422) 0.09 K/ L 0.00-1.30 TOTAL COUNTED (BEAKER) (test ilqn=5253) 100 WBC MORPHOLOGY (BEAKER) (test btsg=522) Normal PLT MORPHOLOGY (BEAKER) (test cwuw=573) Normal RBC MORPHOLOGY (BEAKER) (test zsqo=599) Normal COMPREHENSIVE METABOLIC [id number] 06:39:00 Test Item Value Reference Range Comments TOTAL PROTEIN (BEAKER) 6.8 gm/dL 6.0-8.5 (test njjm=371) ALBUMIN (BEAKER) (test 3.7 g/dL 3.5-5.0 xjrz=7287) ALKALINE PHOSPHATASE 111 U/L 30-115 (BEAKER) (test ysrh=683) BILIRUBIN TOTAL (BEAKER) 0.3 mg/dL 0.1-1.2 (test fxnr=996) SODIUM (BEAKER) (test 138 meq/L 135-148 zywg=612) POTASSIUM (BEAKER) (test 3.9 meq/L 3.6-5.5 sbus=896) CHLORIDE (BEAKER) (test 102 meq/L 98-106 uqet=213) CO2 (BEAKER) (test 28 meq/L 20-29 rpjj=450) BLOOD UREA NITROGEN 9 mg/dL 10-26 (BEAKER) (test hlso=995) CREATININE (BEAKER) (test 0.70 mg/dL 0.50-1.20 zeso=134) GLUCOSE RANDOM (BEAKER) 85 mg/dL 70-110 (test syyj=941) CALCIUM (BEAKER) (test 9.1 mg/dL 8.5-10.5 sfue=953) AST (SGOT) (BEAKER) (test 141 U/L 5-40 eruq=659) ALT (SGPT) (BEAKER) (test 276 U/L 5-50 mnyw=071) EGFR (BEAKER) (test 88 mL/min/1.73 sq m ESTIMATED GFR IS NOT dtqs=8419) ACCURATE CREATININE CLEARANCE IN PREDICTING GLOMERULAR FILTRATION RATE. ESTIMATED GFR IS NOT APPLICABLE FOR DIALYSIS PATIENTS. CBC W/PLT COUNT & AUTO [id number] 06:22:00 Test Item Value Reference Range Comments WHITE BLOOD CELL COUNT (BEAKER) (test dmdy=458) 2.2 K/ L 4.0-10.0 RED BLOOD CELL COUNT (BEAKER) (test gjlc=257) 3.12 M/ L 4.00-5.00 HEMOGLOBIN (BEAKER) (test ubul=009) 9.7 GM/DL 12.0-15.0 HEMATOCRIT (BEAKER) (test ttkt=319) 28.5 % 36.0-45.0 MEAN CORPUSCULAR VOLUME (BEAKER) (test aedv=806) 91.2 fL 82.0-99.0 MEAN CORPUSCULAR HEMOGLOBIN (BEAKER) (test 31.2 pg 27.0-33.0 znbr=031) MEAN CORPUSCULAR HEMOGLOBIN CONC (BEAKER) (test 34.2 GM/DL 32.0-36.0 iowu=406) RED CELL DISTRIBUTION WIDTH (BEAKER) (test 12.4 % 10.3-14.2 gxfu=550) PLATELET COUNT (BEAKER) (test fxga=241) 173 K/CU MM 150-430 MEAN PLATELET VOLUME (BEAKER) (test nxrh=361) 7.6 fL 6.5-10.5 NUCLEATED RED BLOOD CELLS (BEAKER) (test 0 /100 WBC 0-0 hvgf=695) HEPATIC FUNCTION [id number] 16:17:00 Test Item Value Reference Range Comments TOTAL PROTEIN (BEAKER) (test jwia=932) 6.3 gm/dL 6.0-8.5 ALBUMIN (BEAKER) (test rymz=7776) 3.5 g/dL 3.5-5.0 BILIRUBIN TOTAL (BEAKER) (test lhhn=778) 0.3 mg/dL 0.1-1.2 BILIRUBIN DIRECT (BEAKER) (test fywp=331) 0.2 mg/dL 0.0-0.4 ALKALINE PHOSPHATASE (BEAKER) (test ixjs=389) 106 U/L 30-115 AST (SGOT) (BEAKER) (test xxxx=760) 208 U/L 5-40 ALT (SGPT) (BEAKER) (test aiuo=886) 286 U/L 5-50 CBC W/PLT COUNT & AUTO [id number] 06:13:00 Test Item Value Reference Range Comments WHITE BLOOD CELL COUNT (BEAKER) (test hjhj=210) 2.9 K/ L 4.0-10.0 RED BLOOD CELL COUNT (BEAKER) (test wwdm=045) 3.10 M/ L 4.00-5.00 HEMOGLOBIN (BEAKER) (test idft=200) 9.7 GM/DL 12.0-15.0 HEMATOCRIT (BEAKER) (test hotw=181) 28.3 % 36.0-45.0 MEAN CORPUSCULAR VOLUME (BEAKER) (test suxb=913) 91.2 fL 82.0-99.0 MEAN CORPUSCULAR HEMOGLOBIN (BEAKER) (test 31.2 pg 27.0-33.0 rxnt=186) MEAN CORPUSCULAR HEMOGLOBIN CONC (BEAKER) (test 34.3 GM/DL 32.0-36.0 qsgz=494) RED CELL DISTRIBUTION WIDTH (BEAKER) (test 12.3 % 10.3-14.2 cbme=406) PLATELET COUNT (BEAKER) (test onor=395) 178 K/CU MM 150-430 MEAN PLATELET VOLUME (BEAKER) (test kmaz=660) 7.5 fL 6.5-10.5 NUCLEATED RED BLOOD CELLS (BEAKER) (test 0 /100 WBC 0-0 cyff=346) (MANUAL DIFFERENTIAL)2017-10-21 06:13:00 Test Item Value Reference Range Comments NEUTROPHILS - REL (DIFF) (BEAKER) (test ponk=9908) 76 % LYMPHOCYTES - REL (DIFF) (BEAKER) (test hesh=0527) 16 % MONOCYTES - REL (DIFF) (BEAKER) (test nmwf=4346) 5 % BANDS - REL (DIFF) (BEAKER) (test txsm=3772) 3 % 0-10 NEUTROPHILS - ABS (DIFF) (BEAKER) (test mshx=9746) 2.20 K/ L 1.80-8.00 LYMPHOCYTES - ABS (DIFF) (BEAKER) (test qvaj=6459) 0.46 K/ L 1.48-4.50 MONOCYTES - ABS (DIFF) (BEAKER) (test ompc=1873) 0.15 K/ L 0.00-1.30 BANDS-ABS (DIFF) (BEAKER) (test osnh=1093) 0.1 K/ L 0.0-0.8 TOTAL COUNTED (BEAKER) (test avbe=2750) 100 BANDS + SEGMENTED NEUTROPHILS (BEAKER) (test 2.29 jkrb=8858) WBC MORPHOLOGY (BEAKER) (test qokp=937) Normal PLT MORPHOLOGY (BEAKER) (test ukdb=407) Normal RBC MORPHOLOGY (BEAKER) (test tcbv=745) Normal BASIC METABOLIC [id number] 05:25:00 Test Item Value Reference Range Comments SODIUM (BEAKER) (test 139 meq/L 135-148 rujv=503) POTASSIUM (BEAKER) (test 3.7 meq/L 3.6-5.5 agkh=605) CHLORIDE (BEAKER) (test 104 meq/L 98-106 uuhj=895) CO2 (BEAKER) (test 27 meq/L 20-29 ttda=455) BLOOD UREA NITROGEN 12 mg/dL 10-26 (BEAKER) (test qmzo=050) CREATININE (BEAKER) (test 0.80 mg/dL 0.50-1.20 pbdb=771) GLUCOSE RANDOM (BEAKER) 77 mg/dL 70-110 (test awjj=234) CALCIUM (BEAKER) (test 8.5 mg/dL 8.5-10.5 tltq=758) EGFR (BEAKER) (test 75 mL/min/1.73 sq m ESTIMATED GFR IS NOT yvjq=6939) ACCURATE CREATININE CLEARANCE IN PREDICTING GLOMERULAR FILTRATION RATE. ESTIMATED GFR IS NOT APPLICABLE FOR DIALYSIS PATIENTS. CT, BRAIN, WITHOUT [id number] 17:12:00Reason for exam:->headacheIs the patient ?->NoWhat is [...] hydrocephalus. Acute sphenoid sinusitis. Signed: Hailey Lucas [facility]ort Verified Date/Time: 10/20/2017 17:12:46 Reading Location: [facility] Radiology Reading Room Electronically signed by: HAILEY LUCAS M.D. on 05:12 PMCT, [id number] 09:17:00Reason for exam:->fever, constipation, abd discomfortIs the [...] MDReport Verified Date/Time: 10/20/2017 09:17:32 Reading Location: [facility] [id number] Ortho Consult Reading Room RAD, CHEST, 2 [id number] 08:54:00Reason for exam:->FEVERFINAL REPORT Chest two views [...] MDReport Verified Date/Time: 2017 08:54:43 Reading Location: [facility] Radiology Reading Room HEPATIC FUNCTION [id number] 08:27:00 Test Item Value Reference Range Comments TOTAL PROTEIN (BEAKER) (test bhog=829) 8.1 gm/dL 6.0-8.5 ALBUMIN (BEAKER) (test afqp=3491) 4.4 g/dL 3.5-5.0 BILIRUBIN TOTAL (BEAKER) (test iwiu=753) 0.4 mg/dL 0.1-1.2 BILIRUBIN DIRECT (BEAKER) (test dsyn=811) 0.2 mg/dL 0.0-0.4 ALKALINE PHOSPHATASE (BEAKER) (test puoh=284) 128 U/L 30-115 AST (SGOT) (BEAKER) (test aeze=007) 88 U/L 5-40 ALT (SGPT) (BEAKER) (test wage=410) 281 U/L 5-50 [id number] 08:24:00 Test Item Value Reference Range Comments LIPASE (BEAKER) (test afpt=850) 42 U/L 6-51 BASIC METABOLIC [id number] 08:21:00 Test Item Value Reference Range Comments SODIUM (BEAKER) (test 133 meq/L 135-148 bnkf=089) POTASSIUM (BEAKER) (test 4.1 meq/L 3.6-5.5 xmma=230) CHLORIDE (BEAKER) (test 97 meq/L 98-106 htjp=183) CO2 (BEAKER) (test 26 meq/L 20-29 rupe=367) BLOOD UREA NITROGEN 17 mg/dL 10-26 (BEAKER) (test udhy=709) CREATININE (BEAKER) (test 1.00 mg/dL 0.50-1.20 mrkm=004) GLUCOSE RANDOM (BEAKER) 99 mg/dL 70-110 (test uqmu=337) CALCIUM (BEAKER) (test 9.3 mg/dL 8.5-10.5 cirz=967) EGFR (BEAKER) (test 58 mL/min/1.73 sq m ESTIMATED GFR IS NOT jjhx=6997) ACCURATE CREATININE CLEARANCE IN PREDICTING GLOMERULAR FILTRATION RATE. ESTIMATED GFR IS NOT APPLICABLE FOR DIALYSIS PATIENTS. LACTIC ACID, VENOUS, WHOLE [id number] 08:15:00 Test Item Value Reference Range Comments LACTATE BLOOD VENOUS (2) (BEAKER) (test 1.1 mmol/L 0.5-2.2 oppe=1821) Effective 11/28/2015: Units/Reference Range ChangeNew: 0.5-2.2 mmol/L Previous: 5 -18 mg/dLCBC W/PLT COUNT & AUTO [id number] 08:11:00 Test Item Value Reference Range Comments WHITE BLOOD CELL COUNT (BEAKER) (test mlrv=705) 4.7 K/ L 4.0-10.0 RED BLOOD CELL COUNT (BEAKER) (test epvp=431) 3.71 M/ L 4.00-5.00 HEMOGLOBIN (BEAKER) (test hdxu=846) 11.5 GM/DL 12.0-15.0 HEMATOCRIT (BEAKER) (test bwey=133) 33.7 % 36.0-45.0 MEAN CORPUSCULAR VOLUME (BEAKER) (test msrx=552) 91.0 fL 82.0-99.0 MEAN CORPUSCULAR HEMOGLOBIN (BEAKER) (test 31.1 pg 27.0-33.0 mauo=938) MEAN CORPUSCULAR HEMOGLOBIN CONC (BEAKER) (test 34.2 GM/DL 32.0-36.0 kwnm=520) RED CELL DISTRIBUTION WIDTH (BEAKER) (test 12.3 % 10.3-14.2 srzx=186) PLATELET COUNT (BEAKER) (test luzc=453) 245 K/CU MM 150-430 MEAN PLATELET VOLUME (BEAKER) (test lfkq=881) 7.7 fL 6.5-10.5 NUCLEATED RED BLOOD CELLS (BEAKER) (test 0 /100 WBC 0-0 qhxi=367) NEUTROPHILS RELATIVE PERCENT (BEAKER) (test 93 % roma=161) LYMPHOCYTES RELATIVE PERCENT (BEAKER) (test 2 % enti=075) MONOCYTES RELATIVE PERCENT (BEAKER) (test 5 % ycvy=595) EOSINOPHILS RELATIVE PERCENT (BEAKER) (test 0 % vfwe=206) BASOPHILS RELATIVE PERCENT (BEAKER) (test 0 % hwzx=786) NEUTROPHILS ABSOLUTE COUNT (BEAKER) (test 4.40 K/ L 1.80-8.00 iqll=374) LYMPHOCYTES ABSOLUTE COUNT (BEAKER) (test 0.10 K/ L 1.48-4.50 xndw=970) MONOCYTES ABSOLUTE COUNT (BEAKER) (test 0.20 K/ L 0.00-1.30 fvof=202) EOSINOPHILS ABSOLUTE COUNT (BEAKER) (test 0.00 K/ L 0.00-0.50 tpes=009) BASOPHILS ABSOLUTE COUNT (BEAKER) (test 0.00 K/ L 0.00-0.20 kymt=998) RAPID INFLUENZA A&B [id number] 07:58:00 Test Item Value Reference Range Comments RAPID INFLUENZA A AG (BEAKER) (test Negative Negative, Inconclusive gpyn=7174) RAPID INFLUENZA B AG (BEAKER) (test Negative Negative, Inconclusive xgyj=3347) URINALYSIS W/ [id number] 07:55:00 Test Item Value Reference Range Comments COLOR (BEAKER) (test pzun=853) Yellow CLARITY (BEAKER) (test zvhd=749) Clear SPECIFIC GRAVITY UA (BEAKER) (test stsh=892) 1.015 1.001-1.035 PH UA (BEAKER) (test ixtv=434) 6.0 5.0-8.0 PROTEIN UA (BEAKER) (test rwwx=603) Negative Negative GLUCOSE UA (BEAKER) (test gcxu=604) Negative Negative KETONES UA (BEAKER) (test beze=172) Negative Negative BILIRUBIN UA (BEAKER) (test nxgu=547) Negative Negative BLOOD UA (BEAKER) (test ocpk=929) Trace Negative NITRITE UA (BEAKER) (test iuje=212) Negative Negative LEUKOCYTE ESTERASE UA (BEAKER) (test ggkj=207) Negative Negative UROBILINOGEN UA (BEAKER) (test arle=811) 0.2 mg/dL 0.2-1.0 BACTERIA (BEAKER) (test otov=441) Few MUCUS (BEAKER) (test pdej=7942) Few RBC UA-MANUAL (BEAKER) (test guss=9260) 5-10 /HPF WBC UA-MANUAL (BEAKER) (test wwlv=3259) 5-10 /HPF SQUAMOUS EPITHELIAL MANUAL (BEAKER) (test <5 /HPF jtzm=4262) SOURCE(BEAKER) (test hjbr=2551)
[2018-06-04] MEDS ORDERED: FENTANYL CITR 100 MCG/2 ML ONE (03:33)
[2018-06-04] MEDS ORDERED: ONDANSETRON 4 MG/2 ML VIAL ONE (03:33)
[2018-06-04 03:44] LABS: Absolute Lymphocytes (CBC) 1.9 K/uL (0.7-4.9); Absolute Monocytes 0.5 K/uL (0.1-1.3); Basophils % 0.6 % (0-1.3); Eosinophils % 0.1 % (0-4.4); Hematocrit 33.3 % (36.0-45.0); Lymphocytes % 25.2 % (15.3-44.8); MCH 33.7 pg (27.0-35.0); MCV 99.1 fL (80-100); Monocytes % 6.7 % (3.3-12.3); RBC Red Blood Cell Count 3.36 M/uL (3.86-4.86)
[2018-06-04 04:17] LABS: ALT/SGPT 78 U/L (12-78); AST/SGOT 55 U/L (15-37); Albumin 2.9 g/dL (3.4-5.0); Alkaline Phosphatase 91 U/L (45-117); BUN Blood Urea Nitrogen 24 mg/dL (7-18); Bicarbonate 23 mmol/L (21-32); Bilirubin Direct 0.2 mg/dL (0-0.2); Bilirubin Total 0.5 mg/dL (0.2-1.0); Glucose Level 128 mg/dL (74-106); Lipase 159 U/L (73-393); Potassium 3.3 mmol/L (3.5-5.1); Protein, Total 6.8 g/dL (6.4-8.2); Sodium Level 131 mmol/L (136-145); Troponin (Emerg Dept Use Only) 0.15 ng/mL (0.0-0.045)
[2018-06-04 04:22] LABS: NT PRO-BNP > 175000 pg/mL (<125)
[2018-06-04 04:23] LABS: Protime INR 1.31
[2018-06-04 04:55] LABS: Urine Appearance TURBID; Urine Blood 3+ (NEG); Urine Glucose NEGATIVE (NEG); Urine Protein 3+ (NEG); Urine Specific Gravity 1.025 (1.005-1.030)
[2018-06-04] MEDS ORDERED: NA CHLORIDE 0.9% 100 ML IV ONE (04:57)
[2018-06-04] MEDS ORDERED: CEFTRIAXONE 1000 MG/VIAL ONE (04:57)
[2018-06-04 05:05] LABS: Urine Bilirubin NEGATIVE (NEG); Urine Color YELLOW
[2018-06-04 05:06] LABS: Urine Microscopic Reflex ORDER UMIC
[2018-06-04 05:18] LABS: Urine Culture Reflex Order REFLEXED; Urine RBC <5 /HPF (NONE SEEN)
[2018-06-04 05:19] LABS: Urine Bacteria <20 /HPF (<20)
[2018-06-04 05:41] LABS: Arterial Blood Carboxyhemoglob 1.3 % (0-1.5); Blood O2 Saturation 99.3 % (92-98.5)
--- NOTE | 2018-06-04 05:44 | ER ---
Nurse's Notes [facility] Name: Renate Gold Age: 53 yrs Sex: Female : 1965 Arrival Date: 06/04/2018 Time: 02:36 Bed 6 Private MD: Maximiliano Raza Diagnosis: Acute dyspnea;Acute dysuria Presentation: 06/04 02:47 Presenting complaint: Patient states: shortness of breath with N/V started tonight at ak1 2300. pt has dialysis daily. 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 Transition of care: patient was not received from another setting of care. Onset of symptoms was June 04, 2018. Risk Assessment: Do you want to hurt yourself or someone else? Patient reports no desire to harm self or others. Initial Sepsis Screen: Does the patient meet any 2 criteria? No. Patient's initial sepsis screen is negative. Does the patient have a suspected source of infection? No. Patient's initial sepsis screen is negative. Note pt uses 3L oxygen via NC at home. Care prior to arrival: None. 02:47 Method Of Arrival: Wheelchair ak1 02:47 Acuity: RIHC 3 ak1 Triage Assessment: 02:51 General: Appears uncomfortable, ill, slender, Behavior is cooperative. Pain: Denies ak1 pain. EENT: No signs and/or symptoms were reported regarding the EENT system. Neuro: No deficits noted. Cardiovascular: No deficits noted. Respiratory: Reports shortness of breath Onset: The symptoms/episode began/occurred today, the patient has mild shortness of breath. GI: Reports nausea, vomiting. : Reports burning with urination, urgency, urinary frequency. Derm: No signs and/or symptoms reported regarding the dermatologic system. Musculoskeletal: No signs and/or symptoms reported regarding the musculoskeletal system. 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 - Social history:: Smoking status: Patient/guardian denies using tobacco. - Ebola Screening: : No symptoms or risks identified at this time. - Family history:: not pertinent. - Hospitalizations: : No recent hospitalization is reported. Screenin:51 Abuse screen: Denies threats or abuse. Denies injuries from another. Nutritional ak1 screening: No deficits noted. Tuberculosis screening: No symptoms or risk factors identified. Fall Risk None identified. Assessment: 02:53 Respiratory: Airway is patent Respiratory effort is shallow. ak1 03:47 General: Appears ill, malnourished, cachectic, Behavior is calm, cooperative, tl1 appropriate for age. Pain: Complains of pain in abdomen Pain currently is 7 out of 10 on a pain scale. Quality of pain is described as pressure, squeezing, Is continuous. Neuro: Level of Consciousness is awake, obeys commands, lethargic, Oriented to person, place, time, situation, Speech is normal. Cardiovascular: Reports shortness of breath, Capillary refill is > 3 seconds is sluggish fingers Rhythm is sinus tachycardia. Respiratory: Reports shortness of breath at rest labored breathing pain with movement pain with respiration Airway is patent Trachea midline Respiratory effort is labored, shallow, weak, Respiratory pattern is regular, symmetrical, Breath sounds are diminished bilaterally. the patient has moderate shortness of breath. GI: Abdomen is distended, Bowel sounds Abdomen is tender to palpation X 4 quads. Reports lower abdominal pain, upper abdominal pain, bloating. : Reports inability to void, on dialysis. EENT: No signs and/or symptoms were reported regarding the EENT system. Derm: Skin is dusky. Musculoskeletal: Reports weakness in generalized. 06:26 Reassessment: No changes from previously documented assessment. Patient and/or family tl1 updated on plan of care and expected duration. Pain level reassessed. Patient is alert, oriented x 3, equal unlabored respirations, skin warm/dry/pink. 07:32 Reassessment: Patient appears in no apparent distress at this time. No changes from sv previously documented assessment. Patient and/or family updated on plan of care and expected duration. Pain level reassessed. Patient is alert, oriented x 3, equal unlabored respirations, skin warm/dry/pink. Vital Signs: 02:46 BP 140 / 108; Pulse 71; Resp 20; Temp 97.3; Pulse Ox 97% on 3 lpm NC; Weight 38.5 kg ak1 (R); Height 5 ft. 3 in. (160.02 cm); Pain 0/10; 03:29 BP 124 / 105; Pulse 103; Pulse Ox 100% on BiPAP; tl1 04:47 BP 131 / 106; Pulse 108; Resp 19; Pulse Ox 100% on BiPAP; tl1 04:58 BP 120 / 95; Pulse 103; Resp 24; Pulse Ox 100% on BiPAP; tl1 05:43 BP 129 / 104; Pulse 107; Resp 22; Pulse Ox 99% on 3 lpm NC; tl1 06:37 BP 130 / 100; Pulse 107; Resp 20; Temp 97.4; Pulse Ox 100% on 3 lpm NC; Pain 4/10; tl1 07:31 BP 119 / 95; Pulse 103; Resp 20; Pulse Ox 100% on 3 lpm NC; sv 02:46 Body Mass Index 15.04 (38.50 kg, 160.02 cm) ak1 ED Course: 02:36 Patient arrived in ED. es 02:36 Maximiliano Raza MD is Private Physician. es 02:46 Arm band placed on Patient placed in an exam room, on a stretcher, on oxygen, on pulse ak1 oximetry, Patient notified of wait time. 02:48 Triage completed. ak1 02:51 Patient has correct armband on for positive identification. Bed in low position. Call ak1 light in reach. Side rails up X2. Pulse ox on. NIBP on. 03:02 Osmel Solano MD is Attending Physician. de 03:20 No provider procedures requiring assistance completed. Inserted port cath access to tl1 left upper chest Accessed using accessed w/ # 20 Mercado needle, ,sterile technique, per hospital protocol. Clean \T\ dry. Good blood return. Flushes easily. 03:27 BIPAP Sent. tl1 03:38 Steph Fairchild, [place] is Primary Nurse. tl1 03:42 X-ray completed. Portable x-ray completed in exam room. Patient tolerated procedure sg4 well. 03:43 XRAY CXR (1 view) In Process Unspecified. EDMS 03:44 EKG done, by ED staff, reviewed by Osmel Solano MD. ms 04:48 CT Abd/Pelvis - Without Cont In Process Unspecified. EDMS 05:34 CT completed. Patient tolerated procedure well. Patient moved to CT via stretcher. Patient moved back from CT. 05:42 Jeremiah Webb MD is Hospitalizing Provider. de 07:32 Attending Physician role handed off by Osmel Solano MD [facility] 07:32 Donavan Beltre MD is Attending Physician. [facility] Administered Medications: 03:38 Drug: fentaNYL (PF) 50 mcg Route: IVP; Infused Over: 2 mins; Site: Port-a-cath; tl1 05:57 Follow up: Response: No adverse reaction; Marked relief of symptoms; Pain is decreased tl1 03:39 Drug: Zofran 4 mg Route: IVP; Infused Over: 2 mins; Site: Port-a-cath; tl1 05:57 Follow up: Response: No adverse reaction; Marked relief of symptoms; Nausea is decreasedtl1 04:46 Drug: fentaNYL (PF) 50 mcg Route: IVP; Infused Over: 2 mins; Site: Port-a-cath; tl1 05:56 Follow up: Response: No adverse reaction; Marked relief of symptoms; Pain is decreased tl1 04:53 Drug: Rocephin - (cefTRIAXone) 1 grams Route: IVPB; Infused Over: 30 mins; Site: tl1 Port-a-cath; 05:56 Follow up: IV Status: Completed infusion tl1 06:08 Drug: Dilaudid 1 mg Route: IVP; Infused Over: 2 mins; Site: Port-a-cath; tl1 06:38 Follow up: Response: No adverse reaction; Marked relief of symptoms; Pain is decreased tl1 Outcome: 05:44 Decision to Hospitalize by Provider. wa 07:41 Admitted to Tele accompanied by tech, family with patient, via stretcher, room 201, sv with oxygen, with chart, Report called to Fabiola GOFF 07:41 Condition: stable 07:41 Instructed on the need for admit. 07:58 Patient left the ED. sv Signatures: Dispatcher [employer] Dayami Stafford RN RN Donavan Barr MD MD cha Salyer, Cece Ni, Michelle Monzon ms, Tonya, RN RN tl1 Lissy Martínez RN RN ak1 Osmel Solano MD MD wa Garcia, Susana sg4 Corrections: (The following items were deleted from the chart) 03:30 03:29 BP 124 / 105; Pulse 103bpm; Pulse Ox 100% BiPAP; Temp 100F; tl1 tl1
--- NOTE | 2018-06-04 05:44 | EDPHYS ---
Physician Documentation [facility] Name: Renate Gold Age: 53 yrs Sex: Female : 1965 Arrival Date: 06/04/2018 Time: 02:36 Bed 6 Private MD: Maximiliano Raza ED Physician Donavan Beltre HPI: 06/04 04:17 This 53 yrs old Female presents to ER via Wheelchair with complaints of wa Breathing Difficulty. 04:17 The patient has shortness of breath at rest, that occurred at home, and the patient has wa a history of COPD, lung disease, c/o SOB and vomiting. admits to abd pain. states has had dysuria for 4 days. given keflex, not improved. Onset: The symptoms/episode began/occurred today. Duration: The symptoms are continuous, and are steadily getting worse. The patient's shortness of breath is aggravated by nothing, is alleviated by . Associated signs and symptoms: Pertinent positives: chest pain, vomiting, Pertinent negatives: fever, loss of consciousness. Severity of symptoms: At their worst the symptoms were moderate in the emergency department the symptoms are worse markedly. The patient has experienced similar episodes in the past, several times, h/o COPD, CHF, ESRD. The patient has not recently seen a physician. gets dialysis daily at home. states just finished dialysis today. 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 - Social history:: Smoking status: Patient/guardian denies using tobacco. - Ebola Screening: : No symptoms or risks identified at this time. - Family history:: not pertinent. - Hospitalizations: : No recent hospitalization is reported. ROS: 04:23 Constitutional: Negative for fever, chills, and weight loss, Eyes: Negative for injury, wa pain, redness, and discharge, ENT: Negative for injury, pain, and discharge, Neck: Negative for injury, pain, and swelling, Back: Negative for injury and pain, : Negative for injury, bleeding, discharge, and swelling, MS/Extremity: Negative for injury and deformity, Skin: Negative for injury, rash, and discoloration, Neuro: Negative for headache, weakness, numbness, tingling, and seizure. 04:23 Cardiovascular: Positive for chest pain, Negative for edema, orthopnea, palpitations, paroxysmal nocturnal dyspnea. 04:23 Respiratory: Positive for cough, dyspnea on exertion, orthopnea, shortness of breath, wheezing, Negative for hemoptysis. 04:23 Abdomen/GI: Positive for abdominal pain, Negative for diarrhea. Exam: 04:24 Constitutional: This is a well developed, well nourished patient who is awake, alert, wa and in no acute distress. Head/Face: Normocephalic, atraumatic. Eyes: Pupils equal round and reactive to light, extra-ocular motions intact. Lids and lashes normal. Conjunctiva and sclera are non-icteric and not injected. Cornea within normal limits. Periorbital areas with no swelling, redness, or edema. ENT: Nares patent. No nasal discharge, no septal abnormalities noted. Tympanic membranes are normal and external auditory canals are clear. Oropharynx with no redness, swelling, or masses, exudates, or evidence of obstruction, uvula midline. Mucous membranes moist. Neck: Trachea midline, no thyromegaly or masses palpated, and no cervical lymphadenopathy. Supple, full range of motion without nuchal rigidity, or vertebral point tenderness. No Meningismus. Chest/axilla: Normal chest wall appearance and motion. Nontender with no deformity. No lesions are appreciated. Cardiovascular: Regular rate and rhythm with a normal S1 and S2. No gallops, murmurs, or rubs. Normal PMI, no JVD. No pulse deficits. Respiratory: Lungs have equal breath sounds bilaterally, clear to auscultation and percussion. No rales, rhonchi or wheezes noted. No increased work of breathing, no retractions or nasal flaring. Back: No spinal tenderness. No costovertebral tenderness. Full range of motion. Skin: Warm, dry with normal turgor. Normal color with no rashes, no lesions, and no evidence of cellulitis. MS/ Extremity: Pulses equal, no cyanosis. Neurovascular intact. Full, normal range of motion. Neuro: Awake and alert, GCS 15, oriented to person, place, time, and situation. Cranial nerves II-XII grossly intact. Motor strength 5/5 in all extremities. Sensory grossly intact. Cerebellar exam normal. Normal gait. Psych: Awake, alert, with orientation to person, place and time. Behavior, mood, and affect are within normal limits. Vital Signs: 02:46 BP 140 / 108; Pulse 71; Resp 20; Temp 97.3; Pulse Ox 97% on 3 lpm NC; Weight 38.5 kg ak1 (R); Height 5 ft. 3 in. (160.02 cm); Pain 0/10; 03:29 BP 124 / 105; Pulse 103; Pulse Ox 100% on BiPAP; tl1 04:47 BP 131 / 106; Pulse 108; Resp 19; Pulse Ox 100% on BiPAP; tl1 04:58 BP 120 / 95; Pulse 103; Resp 24; Pulse Ox 100% on BiPAP; tl1 05:43 BP 129 / 104; Pulse 107; Resp 22; Pulse Ox 99% on 3 lpm NC; tl1 06:37 BP 130 / 100; Pulse 107; Resp 20; Temp 97.4; Pulse Ox 100% on 3 lpm NC; Pain 4/10; tl1 07:31 BP 119 / 95; Pulse 103; Resp 20; Pulse Ox 100% on 3 lpm NC; sv 02:46 Body Mass Index 15.04 (38.50 kg, 160.02 cm) ak1 MDM: 03:02 Patient medically screened. wa 04:25 Differential diagnosis: Anemia Bronchitis CHF exacerbation, Chronic Obstructive wa Pulmonary Disease pneumonia, Psychogenic pulmonary edema, Unstable Angina. 05:40 Data reviewed: vital signs, nurses notes, lab test result(s), EKG. Test interpretation: wa by ED physician or midlevel provider: EKG: HR 102. sinus tach with diffuse ST-T changes. labs noted for renal insufficiency. low K at 3.3. elevated BUN and Cr. anemia. UA notef for TNTC wbc . 06/04 03:19 Order name: Blood Culture Adult (2) 06/04 03:19 Order name: BMP; Complete Time: 04:28 06/04 03:19 Order name: CBC with Diff; Complete Time: 04:28 06/04 03:19 Order name: Hepatic Function; Complete Time: 04:28 06/04 03:19 Order name: Lipase; Complete Time: 04:28 nd 06/04 03:19 Order name: NT PRO-BNP; Complete Time: 04:28 06/04 03:19 Order name: PT-INR; Complete Time: 04:28 nd 06/04 03:19 Order name: Troponin (emerg Dept Use Only); Complete Time: 04:28 nd 06/04 04:40 Order name: Urine Microscopic Only; Complete Time: 05:38 nd 06/04 04:40 Order name: Urinalysis; Complete Time: 05:38 nd 06/04 05:20 Order name: Urine Culture EDMS 06/04 05:32 Order name: ABG Arterial Blood Gas EDMS 06/04 05:39 Order name: ABG Arterial Blood Gas EDMS 06/04 03:19 Order name: XRAY CXR (1 view) nd 06/04 03:19 Order name: CT Abd/Pelvis - Without Cont nd 06/04 03:20 Order name: BIPAP nd 06/04 05:40 Order name: ABG Arterial Blood Gas EDMS 06/04 06:03 Order name: Urinalysis EDMS 06/04 06:03 Order name: CBC with Automated Diff EDMS 06/04 06:03 Order name: CBC with Automated Diff EDMS 06/04 06:03 Order name: Comprehensive Metabolic Panel EDMS 06/04 06:03 Order name: Comprehensive Metabolic Panel EDMS 06/04 06:03 Order name: Magnesium EDMS 06/04 06:03 Order name: Magnesium EDMS 06/04 06:03 Order name: Phosphorus EDMS 06/04 06:03 Order name: Phosphorus EDMS 06/04 03:19 Order name: EKG; Complete Time: 03:19 nd 06/04 03:19 Order name: Cardiac monitoring; Complete Time: 03:27 nd 06/04 03:19 Order name: EKG - Nurse/Tech; Complete Time: 03:44 nd 06/04 03:19 Order name: IV Saline Lock; Complete Time: 03:27 nd 06/04 03:19 Order name: Labs collected and sent; Complete Time: 03:27 nd 06/04 03:19 Order name: O2 Per Protocol; Complete Time: 03:27 nd 06/04 03:19 Order name: O2 Sat Monitoring; Complete Time: 03:27 nd 06/04 04:40 Order name: Urine Dipstick-Ancillary (obtain specimen); Complete Time: 04:46 nd 06/04 06:03 Order name: CONS Physician Consult EDMS 06/04 06:03 Order name: Renal EDMS Administered Medications: 03:38 Drug: fentaNYL (PF) 50 mcg Route: IVP; Infused Over: 2 mins; Site: Port-a-cath; tl1 05:57 Follow up: Response: No adverse reaction; Marked relief of symptoms; Pain is decreased tl1 03:39 Drug: Zofran 4 mg Route: IVP; Infused Over: 2 mins; Site: Port-a-cath; tl1 05:57 Follow up: Response: No adverse reaction; Marked relief of symptoms; Nausea is decreasedtl1 04:46 Drug: fentaNYL (PF) 50 mcg Route: IVP; Infused Over: 2 mins; Site: Port-a-cath; tl1 05:56 Follow up: Response: No adverse reaction; Marked relief of symptoms; Pain is decreased tl1 04:53 Drug: Rocephin - (cefTRIAXone) 1 grams Route: IVPB; Infused Over: 30 mins; Site: tl1 Port-a-cath; 05:56 Follow up: IV Status: Completed infusion tl1 06:08 Drug: Dilaudid 1 mg Route: IVP; Infused Over: 2 mins; Site: Port-a-cath; tl1 06:38 Follow up: Response: No adverse reaction; Marked relief of symptoms; Pain is decreased tl1 Disposition: 06/04/18 05:44 Hospitalization ordered by Jeremiah Webb for Observation. Preliminary diagnosis are Acute dyspnea, Acute dysuria . - Bed requested for Telemetry/MedSurg (observation). - Status is Observation. sv - Condition is Stable. - Problem is new. - Symptoms have improved. UTI on Admission? No Signatures: Dispatcher [employer] EDCali Alcazarie, RN RN sv Aletha Armenta, RN RN Steph Fairchild, RN RN tl1 Lissy Martínez, RN RN ak1 Osmel Solano MD MD wa Corrections: (The following items were deleted from the chart) 05:14 05:07 Urine Microscopic Only ordered. [facility] EDGA 06:27 05:44 Hospitalization Ordered by Jeremiah Webb MD for Observation. Preliminary mw diagnosis is Acute dyspnea; Acute dysuria . Bed requested for Telemetry/MedSurg (observation). Status is Observation. Condition is Stable. Problem is new. Symptoms have improved. UTI on Admission? No. nd 07:58 06:27 06/04/2018 05:44 Hospitalization Ordered by Jeremiah Webb MD for Observation. Preliminary diagnosis is Acute dyspnea; Acute dysuria . Bed requested for Telemetry/MedSurg (observation). Status is Observation. Condition is Stable. Problem is new. Symptoms have improved. UTI on Admission? No.
[2018-06-04] MEDS ORDERED: FUROSEMIDE 40 MG/4 ML VIAL IV ONE (06:00)
[2018-06-04] MEDS ORDERED: ACETAMINOPHEN 500 MG TAB PO PRN (06:00)
[2018-06-04] MEDS ORDERED: HYDROMORPHONE HCL 1 MG/ML INJ ONE (06:13)
[2018-06-04] MEDS ORDERED: FUROSEMIDE 100 MG/10 ML VIAL IV ONE (06:50)
--- NOTE | 2018-06-04 07:07 | EKG ---
Test Date: 2018-06-04 Test Time: 03:35:02 Upkeep Worker: MEASUREMENT RESULTS: Intervals: Rate: 102 NH: 134 QRSD: 76 QT: 386 QTc: 503 [place]: P: 70 NH: 134 QRS: 26 T: 80 INTERPRETIVE STATEMENTS: Sinus tachycardia Otherwise normal ECG Compared to ECG 05/09/2018 04:15:32 ST (T wave) deviation no longer present Electronically Signed On 06-04-18 07:06:49 MORTGAGE LOAN REVIEWER by Derik Bryan
--- NOTE | 2018-06-04 08:32 | RAD REPORT ---
EXAM DESCRIPTION: CT - Abdomen Pelvis Wo Contrast - 06/04/2018 7:08 am CLINICAL HISTORY: Abdominal pain March 2018 COMPARISON: None TECHNIQUE: Computed axial tomography of the abdomen and pelvis was obtained. IV and oral contrast we re not requested. A preliminary report was generated by virtual radiologic in review prior to this di ctation All CT scans are performed using dose optimization technique as appropriate and may include automated exposure control or mA/KV adjustment according to patient size. FINDINGS: The evaluation of solid organs, vessels and bowel is limited secondary to the lack of con trast administration. Small to moderate left and small right pleural effusions are present. Patchy right lower lobe alveolar opacities are seen. The liver appears mildly enlarged. The spleen is mildly enlarged. Hydronephrosis is not noted. A renal mass is not seen. A hysterectomy has been performed. There is no evidence of diverticulitis. Small sclerotic foci within the bones unchanged. IMPRESSION: Mild patchy right lower lobe opacity probably represents pneumonia Stable bony sclerotic lesions likely representing metastases Mild splenomegaly. Mild hepatomegaly
--- NOTE | 2018-06-04 08:33 | RAD REPORT ---
EXAM DESCRIPTION: Cj Single View06/04/2018 3:43 am CLINICAL HISTORY: Shortness of breath COMPARISON: 05/09/2018 FINDINGS: Mild bilateral tissue opacities are seen. Mild alveolar opacities are noted within the ri ght lower lobe. Heart is mildly to moderately enlarged. Small pleural effusions are present. Central venous catheters remain in place. IMPRESSION: Mild bilateral interstitial lung opacities likely represent interstitial pulmonary edema . Mild right lower lobe alveolar opacity likely represents pneumonia
[2018-06-04] MEDS ORDERED: ENOXAPARIN 40 MG/0.4 ML SQ SCH (09:00)
[2018-06-04] MEDS: ENOXAPARIN 30 MG/0.3 ML SQ SCH (10:21)
[2018-06-04] MEDS ORDERED: NA CHLORIDE 0.9% 1,000 ML IV PRN (13:13)
--- NOTE | 2018-06-04 13:25 | P.HP ---
Certification for Inpatient Patient admitted to: Inpatient With expected LOS: >2 Midnights Patient will require the following post-hospital care: None Practitioner: I am a practitioner with admitting privileges, knowledge of patient current condition, hospital course, and medical plan of care. Services: Services provided to patient in accordance with Admission requirements found in Title 42 Section 412.3 of the Code of Federal Regulations Patient History Date of Service: 06/04/18 Reason for admission: Respiratory distress History of Present Illness: The patient is a 53-year-old female who has stage IV breast cancer, and she presents with fluid overload. Patient has a history of end-stage renal disease and does hemodialysis daily. Patient was dialyzed early in the morning and by the evening she felt like she too much fluid on her. She became tachypneic and tachycardic and she called EMS brought her into the emergency room. Patient was placed on BiPAP and she was hypoxic satting 80% on 3 L. She remained tachypneic until the BiPAP was placed. We have given her IV Lasix and we will contact Nephrology for hemodialysis. Allergies ciprofloxacin HCl [From Cipro] Allergy (Unknown, Verified 04/02/18 13:39) Unknown Sulfa (Sulfonamide Antibiotics) Allergy (Unknown, Verified 04/02/18 13:39) Unknown Home Medications: Albuterol Sulfate [Ventolin Hfa] 1 puff IH Q6HP PRN 04/03/18 Carvedilol 3.125 mg PO 2100 04/03/18 traMADol HCL [Ultram*] 1 tab PO BID PRN 05/03/18 ALPRAZolam [Xanax*] 1 tab PO DAILY PRN 05/20/18 Sennosides [Senokot] 1 tab PO DAILY PRN 05/20/18 Vit B Comp No.3/Folic/C/Biotin [Nephro-Uriel Rx Tablet] 1 each PO DAILY 06/04/18 - Past Medical/Surgical History Diabetic: No -: right breast sx removal of lump, and lymph nodes -: breast ca-metastasized, radiation, chemo stopped 03/2018 complications -: renal disease -: ESRD -: COPD -: hysterectomy -: -: expl lap, rk -: port a cath left chest wall -: gabbi right chest wall - Family History Mother Medical History: Diabetes, Cancer Notes: breast ca Father Medical History: Heart disease, Hypertension - Social History Smoking Status: Never smoker Alcohol use: No CD- Drugs: No Caffeine use: No Review of Systems 10-point ROS is otherwise unremarkable Physical Examination - Vital Signs Temperature: 98.4 F Blood Pressure: 144/95 Pulse: 107 Respirations: 16 Pulse Ox (%): 100 - Physical Exam General: Alert, In no apparent distress, Oriented x3, Cachectic HEENT: Atraumatic, PERRLA, Mucous membr. moist/pink, EOMI, Sclerae nonicteric Neck: Supple, 2+ carotid pulse no bruit, No LAD, Without JVD or thyroid abnormality Respiratory: Crackles/rales, Expiratory wheezes Cardiovascular: Regular rate/rhythm, Normal S1 S2, Systolic murmur Gastrointestinal: Normal bowel sounds, Soft and benign, Non-distended, No tenderness Musculoskeletal: No clubbing, No swelling, No tenderness Integumentary: No rashes Neurological: Normal speech, Sensation intact, Cranial nerves 3-12 intact, Normal affect, Abnormal strength Lymphatics: No axilla or inguinal lymphadenopathy - Studies Laboratory Data (last 24 hrs) 06/04/18 03:55: PT 15.5 H, INR 1.31 06/04/18 03:22: WBC 7.4, Hgb 11.3 L, Hct 33.3 L, Plt Count 140 L 06/04/18 03:22: Sodium 131 L, Potassium 3.3 L, BUN 24 H, Creatinine 2.00 H, Glucose 128 H, Total Bilirubin 0.5, AST 55 H, ALT 78, Alkaline Phosphatase 91, Lipase 159 Assessment & Plan - Problems (Diagnosis) (1) Acute on chronic systolic CHF (congestive heart failure) Onset Date: 05/04/18 Current Visit: No Status: Acute (2) Hypoxemia Current Visit: No Status: Acute (3) Respiratory distress Current Visit: No Status: Acute (4) Respiratory failure Onset Date: 04/05/18 Current Visit: No Status: Acute (5) ESRD (end stage renal disease) Onset Date: 04/05/18 Current Visit: No Status: Chronic (6) Metastatic breast cancer Current Visit: No Status: Chronic - Plan Plan: 1. nephrology consultation for hemodialysis 2. IV Lasix 3. discussed with family regarding prognosis and plan of care going forward 4. Monitor electrolytes closely 5. Patient was poor prognosis 6. IV antibiotics if as needed 7. Monitor hemodynamics 8. GI and DVT prophylaxis Discharge Plan: Home Plan to discharge in: Greater than 2 days - Advance Directives Does patient have a Living Will: No Does patient have a Durable POA for Healthcare: No - Code Status/Comfort Care Code Status Assessed: Yes Code Status: Full Code Critical Care: No Time Spent Managing PTS Care (In Minutes): 50
--- NOTE | 2018-06-04 14:10 | P.CNS ---
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, metastatic breast CA, COPD and CHF pt presented with SOB , O2 sat 80% and improved on BiPAP denied chest pain, palpitation, vomiting or diarrrhea was treated for UTI recently Allergies ciprofloxacin HCl [From Cipro] Allergy (Unknown, Verified 04/02/18 13:39) Unknown Sulfa (Sulfonamide Antibiotics) Allergy (Unknown, Verified 04/02/18 13:39) Unknown Home Medications: Albuterol Sulfate [Ventolin Hfa] 1 puff IH Q6HP PRN 04/03/18 Carvedilol 3.125 mg PO 2100 04/03/18 traMADol HCL [Ultram*] 1 tab PO BID PRN 05/03/18 ALPRAZolam [Xanax*] 1 tab PO DAILY PRN 05/20/18 Sennosides [Senokot] 1 tab PO DAILY PRN 05/20/18 Vit B Comp No.3/Folic/C/Biotin [Nephro-Uriel Rx Tablet] 1 each PO DAILY 06/04/18 - Past Medical/Surgical History Diabetic: No -: right breast sx removal of lump, and lymph nodes -: breast ca-metastasized, radiation, chemo stopped 03/2018 complications -: renal disease -: ESRD -: COPD -: hysterectomy -: -: expl lap, rk -: port a cath left chest wall -: gabbi right chest wall - Family History Mother Medical History: Diabetes, Cancer Notes: breast ca Father Medical History: Heart disease, Hypertension - Social History Smoking Status: Unknown if ever smoked Alcohol use: No CD- Drugs: No Caffeine use: No Review of Systems Respiratory: SOB with Excertion Genitourinary: Dysuria Physical Examination Temp Pulse Resp BP Pulse Ox 98.4 F 107 H 16 144/95 H 100 06/04/18 13:24 06/04/18 13:24 06/04/18 13:24 06/04/18 13:24 06/04/18 13:24 General: Oriented x3, Mild distress HEENT: Atraumatic Neck: Supple, Without JVD or thyroid abnormality Respiratory: Crackles/rales Cardiovascular: No edema, Regular rate/rhythm, Normal S1 S2 Laboratory Data (last 24 hrs) 06/04/18 03:55: PT 15.5 H, INR 1.31 06/04/18 03:22: WBC 7.4, Hgb 11.3 L, Hct 33.3 L, Plt Count 140 L 06/04/18 03:22: Sodium 131 L, Potassium 3.3 L, BUN 24 H, Creatinine 2.00 H, Glucose 128 H, Total Bilirubin 0.5, AST 55 H, ALT 78, Alkaline Phosphatase 91, Lipase 159 - Problems (1) Acute on chronic systolic CHF (congestive heart failure) Onset Date: 05/04/18 Current Visit: No Status: Acute (2) Hyperkalemia Current Visit: No Status: Acute (3) Hypoxemia Onset Date: 06/07/18 Current Visit: No Status: Acute (4) ESRD (end stage renal disease) Onset Date: 04/05/18 Current Visit: No Status: Chronic (5) Metastatic breast cancer Onset Date: 06/07/18 Current Visit: No Status: Chronic Conclusions/Impression: A 53 Y/O woman with PMhx of ESRD on daily HD started on 02/2018 , ESRD due to chemo therapy and TMA, metastatic breast CA, COPD and CHF pt presented with SOB , O2 sat 80% and improved on BiPAP denied chest pain, palpitation, vomiting or diarrrhea was treated for UTI recently ESRD on HD via PC will cont daily HD renal dose all meds Hypoxia likely 2/2 chf excacerbation and pul metastasis daily HD Oxygen BiPAP prn BNP 170,[address]; pleural effusion Metastatic breast Ca UTI Cont rocephin F/U cultures
[2018-06-04] MEDS: ALPRAZOLAM 0.25 MG TABLET PO PRN (22:30)
[2018-06-05] MEDS: ONDANSETRON 4 MG/2 ML VIAL IV PRN (01:32)
[2018-06-05] MEDS ORDERED: PROMETHAZINE 25 MG/ML VIAL IV ONE (03:32)
[2018-06-05 05:06] LABS: Absolute Lymphocytes (CBC) 2.3 K/uL (0.7-4.9); Absolute Monocytes 0.7 K/uL (0.1-1.3); Absolute Neutrophil 7.5 K/uL (1.8-8.0); Basophils % 0.4 % (0-1.3); Hematocrit 36.3 % (36.0-45.0); Lymphocytes % 21.5 % (15.3-44.8); MCH 33.9 pg (27.0-35.0); MCV 99.5 fL (80-100); MPV 9.8 fL (7.6-11.3); Monocytes % 7.1 % (3.3-12.3); RBC Red Blood Cell Count 3.65 M/uL (3.86-4.86)
[2018-06-05 05:33] LABS: Albumin 3.5 g/dL (3.4-5.0); Bilirubin Total 0.8 mg/dL (0.2-1.0); Magnesium 1.9 mg/dL (1.8-2.4); Phosphorus 3.8 mg/dL (2.5-4.9); Potassium 4.8 mmol/L (3.5-5.1); Protein, Total 7.8 g/dL (6.4-8.2)
[2018-06-05] MEDS: ENOXAPARIN 30 MG/0.3 ML SQ SCH (09:00)
--- NOTE | 2018-06-05 17:55 | P.PN ---
Subjective Date of Service: 06/07/18 Chief Complaint: Respiratory distress Patient seen and examined at bedside. Still complaining of shortness of breath especially when she moves her oxygen Review of Systems Noted Physical Examination - Vital Signs Temperature: 97.6 F Blood Pressure: 140/94 Pulse: 100 Respirations: 20 Pulse Ox (%): 94 - Physical Exam General: Alert, In no apparent distress, Oriented x3, Cachectic HEENT: Atraumatic, PERRLA, EOMI Neck: Supple, JVD not distended Respiratory: Diminished, Crackles/rales Cardiovascular: Regular rate/rhythm, Normal S1 S2 Gastrointestinal: Normal bowel sounds, No tenderness Musculoskeletal: No tenderness Integumentary: No rashes Neurological: Normal speech, Normal tone, Normal affect Lymphatics: No axilla or inguinal lymphadenopathy Assessment And Plan - Plan Acute on chronic systolic CHF (congestive heart failure) Acute Respiratory distress w/ Hypoxia ESRD (end stage renal disease) Metastatic breast cancer Plan: 1. nephrology consultation for hemodialysis, [place] 2. IV Lasix 3. discussed with family regarding prognosis and plan of care going forward 4. Monitor electrolytes closely 5. Patient with poor prognosis 6. IV antibiotics if as needed 7. Monitor hemodynamics 8. GI and DVT prophylaxis
[2018-06-05] MEDS: MORPHINE 2 MG/ML SYR IV PRN (20:56)
--- NOTE | 2018-06-05 23:36 | P.PN ---
Subjective Date of Service: 06/05/18 Chief Complaint: Respiratory distress Seen and examined during HD HD today with ~3.0 liter removal Na 130 today after HD yesterday , pt dialysed with Na 137 whic indicates that pt is not compliant with fluid restriction counseled about decrease fluid intake Physical Examination - Vital Signs Temperature: 97 F Blood Pressure: 141/99 Pulse: 108 Respirations: 20 Pulse Ox (%): 100 - Physical Exam General: Oriented x3 HEENT: Atraumatic Neck: Supple, Without JVD or thyroid abnormality Respiratory: Crackles/rales ( Basal ) Cardiovascular: Edema Assessment And Plan - Current Problems (Diagnosis) (1) Acute on chronic systolic CHF (congestive heart failure) Onset Date: 05/04/18 Current Visit: No Status: Acute (2) Hyperkalemia Current Visit: No Status: Acute (3) Hypoxemia Current Visit: No Status: Acute (4) ESRD (end stage renal disease) Onset Date: 04/05/18 Current Visit: No Status: Chronic (5) Metastatic breast cancer Current Visit: No Status: Chronic - Plan A 53 Y/O woman with PMhx of ESRD on daily HD started on 02/2018 , ESRD due to chemo therapy and TMA, metastatic breast CA, COPD and CHF pt presented with SOB , O2 sat 80% and improved on BiPAP denied chest pain, palpitation, vomiting or diarrrhea was treated for UTI recently ESRD on HD via PC will cont daily HD renal dose all meds Pt with significant ID Wt gain and hyponatremia fter HD which indicated non- compliance with fluid restriction counseled and educated Hypoxia , resolved likely 2/2 chf excacerbation and pul metastasis daily HD Oxygen BiPAP prn BNP 170,[address]; pleural effusion Metastatic breast Ca UTI Cont rocephin F/U cultures
[2018-06-06] MEDS: ALPRAZOLAM 0.25 MG TABLET PO PRN (02:00)
[2018-06-06] MEDS ORDERED: METOPROLOL TARTRATE 5 MG/5 ML INJ IV STA (03:41)
[2018-06-06] MEDS ORDERED: FUROSEMIDE 40 MG/4 ML VIAL IV ONE (03:44)
[2018-06-06] MEDS ORDERED: ALPRAZOLAM 0.25 MG TABLET PO PRN (07:57)
[2018-06-06] MEDS ORDERED: CEFTRIAXONE 1 GM/NS 50 ML 1 GM/50 ML BAG IV SCH (09:00)
[2018-06-06] MEDS: ENOXAPARIN 30 MG/0.3 ML SQ SCH (09:14)
--- NOTE | 2018-06-06 12:02 | P.PN ---
Subjective Date of Service: 06/06/18 Chief Complaint: Respiratory distress Pt with ESRD on daily home HD, breast CA IV admitted for SOB and hypoxia Seen and examined during HD HD today with ~3.0 liter removal , had Hd for the last 3days with ~3liters removal daily Na 130 today after HD yesterday , pt dialysed with Na 137 whic indicates that pt is not compliant with fluid restriction counseled about decrease fluid intake elevated LFT Physical Examination - Vital Signs Temperature: 97.5 F Blood Pressure: 125/94 Pulse: 89 Respirations: 18 Pulse Ox (%): 100 - Physical Exam General: Oriented x3, Cooperative HEENT: Atraumatic Neck: Supple, Without JVD or thyroid abnormality Respiratory: Clear to auscultation bilaterally, Normal air movement Cardiovascular: No edema, Regular rate/rhythm, Normal S1 S2 Gastrointestinal: Normal bowel sounds, Soft and benign, Non-distended Assessment And Plan - Current Problems (Diagnosis) (1) Acute on chronic systolic CHF (congestive heart failure) Onset Date: 05/04/18 Current Visit: No Status: Acute (2) Hyperkalemia Current Visit: No Status: Acute (3) Hypoxemia Current Visit: No Status: Acute (4) ESRD (end stage renal disease) Onset Date: 04/05/18 Current Visit: No Status: Chronic (5) Metastatic breast cancer Current Visit: No Status: Chronic - Plan A 53 Y/O woman with PMhx of ESRD on daily HD started on 02/2018 , ESRD due to chemo therapy and TMA, metastatic breast CA, COPD and CHF pt presented with SOB , O2 sat 80% and improved on BiPAP denied chest pain, palpitation, vomiting or diarrrhea was treated for UTI recently ESRD on HD via PC will cont daily HD renal dose all meds Pt with significant ID Wt gain and hyponatremia fter HD which indicated non- compliance with fluid restriction counseled and educated Hypoxia , resolved likely 2/2 chf excacerbation and pul metastasis daily HD Oxygen BiPAP prn BNP 170,[address]; pleural effusion Elevated LFT Liver US possibly due to mets disease Metastatic breast Ca UTI Cont rocephin F/U cultures
[2018-06-06] MEDS: ALBUMIN HUMAN 25% 50 ML IV SCH (12:05)
[2018-06-06] MEDS: CEFTRIAXONE/SWI 1gm 1 GM/10 ML SYR IV SCH (15:08)
[2018-06-06] MEDS: CARVEDILOL 3.125 MG TAB PO SCH (21:28)
--- NOTE | 2018-06-06 22:24 | P.PN ---
Subjective Date of Service: 06/07/18 Chief Complaint: Respiratory distress Patient seen and examined at bedside. Reports slightly improved breathing though still having shortness of breath. Review of Systems As noted Physical Examination - Vital Signs Temperature: 97.6 F Blood Pressure: 138/100 Pulse: 99 Respirations: 20 Pulse Ox (%): 100 - Physical Exam General: Alert, In no apparent distress, Oriented x3, Cachectic HEENT: Atraumatic, PERRLA, EOMI Neck: Supple, JVD not distended Respiratory: Diminished, Crackles/rales Cardiovascular: Regular rate/rhythm, Normal S1 S2 Gastrointestinal: Normal bowel sounds, No tenderness Musculoskeletal: No tenderness Integumentary: No rashes Neurological: Normal speech, Normal tone, Normal affect Lymphatics: No axilla or inguinal lymphadenopathy Assessment And Plan - Plan Acute on chronic systolic CHF (congestive heart failure) Acute Respiratory distress w/ Hypoxia ESRD (end stage renal disease) Metastatic breast cancer Plan: nephrology consultation for hemodialysis, recommendation appreciated Continue IV Lasix discussed with family regarding prognosis and plan of care going forward Patient with poor prognosis GI and DVT prophylaxis Disposition: Continue daily hemodialysis sessions. Pending symptomatic improvement. Patient with a very poor prognosis, though not ready to consider hospice care at this time for a change in code status at this.
[2018-06-07] MEDS: ONDANSETRON 4 MG/2 ML VIAL IV PRN (04:11)
[2018-06-07] MEDS ORDERED: FUROSEMIDE 40 MG/4 ML VIAL IV ONE (04:31)
[2018-06-07] MEDS ORDERED: METOPROLOL TARTRATE 5 MG/5 ML INJ IV STA (04:32)
[2018-06-07] MEDS: PROMETHAZINE 25 MG/ML VIAL IV PRN (05:10)
[2018-06-07] MEDS: MORPHINE 2 MG/ML SYR IV PRN ×2 (05:21→21:29)
[2018-06-07 08:16] LABS: Potassium 4.1 mmol/L (3.5-5.1)
[2018-06-07] MEDS: CEFTRIAXONE/SWI 1gm 1 GM/10 ML SYR IV SCH (09:00)
[2018-06-07] MEDS: ENOXAPARIN 30 MG/0.3 ML SQ SCH (09:00)
[2018-06-07] MEDS ORDERED: CEFTRIAXONE/SWI 1gm 1 GM/10 ML SYR IV SCH (09:00)
--- NOTE | 2018-06-07 13:58 | RAD REPORT ---
EXAM DESCRIPTION: Cj Single View06/07/2018 1:50 pm CLINICAL HISTORY: Chest pain COMPARISON: June 04, 2015 FINDINGS: The bilateral lung opacities appear resolved. . The heart is mildly enlarged Central venous catheters remain in place IMPRESSION: Bilateral pulmonary opacities appear resolved
[2018-06-07] MEDS: SODIUM CHLORIDE 1 GM TAB PO SCH (17:00)
--- NOTE | 2018-06-07 17:52 | P.PN ---
Subjective Date of Service: 06/07/18 Chief Complaint: Respiratory distress Patient seen and examined at bedside. States breathing is almost resolved. Did have some nausea overnight, which has now resolved. At the time of my exam , sitting up in bed with nasal cannula eating, in no acute respiratory distress. Review of Systems As noted Physical Examination - Vital Signs Temperature: 97.6 F Blood Pressure: 138/100 Pulse: 99 Respirations: 20 Pulse Ox (%): 100 - Physical Exam General: Alert, In no apparent distress, Oriented x3, Cachectic HEENT: Atraumatic, PERRLA, EOMI Neck: Supple, JVD not distended Respiratory: Normal air movement, Crackles/rales (Improved) Cardiovascular: Regular rate/rhythm, Normal S1 S2 Gastrointestinal: Normal bowel sounds, No tenderness Musculoskeletal: No tenderness Integumentary: No rashes Neurological: Normal speech, Normal tone, Normal affect Lymphatics: No axilla or inguinal lymphadenopathy - Studies Microbiology Data (last 24 hrs): 06/04/18 04:41 Catheterized Urine Sunflower Count - Final >100,000 CFU/ML. 06/04/18 04:41 Catheterized Urine - Final Klebsiella Oxytoca Enterobacter Cloacae Assessment And Plan - Plan Acute on chronic systolic CHF (congestive heart failure) Acute Respiratory distress w/ Hypoxia ESRD (end stage renal disease) Metastatic breast cancer, unsure of metastatic site Malnutrition UTI Plan: nephrology consultation for hemodialysis, recommendation appreciated Continue IV Lasix discussed with family regarding prognosis and plan of care going forward Patient with poor prognosis Currently on IV Rocephin. GI and DVT prophylaxis Disposition: Continue daily hemodialysis sessions. Patient with a very poor prognosis, though not ready to consider hospice care at this time for a change in code status at this. Likely discharge home tomorrow.
[2018-06-07] MEDS: CARVEDILOL 3.125 MG TAB PO SCH (21:28)
[2018-06-07] MEDS: IPRATROPIUM BROM 0.5MG/2.5ML NEB PRN (23:30)
[2018-06-07] MEDS: ALBUTEROL 2.5 MG/3 ML NEB SOL NEB PRN (23:30)
[2018-06-08] MEDS ORDERED: IPRATROPIUM BROM 0.5MG/2.5ML NEB SCH
[2018-06-08] MEDS ORDERED: ALBUTEROL 2.5 MG/3 ML NEB SOL NEB SCH
[2018-06-08] MEDS: ALPRAZOLAM 0.25 MG TABLET PO PRN (00:04)
[2018-06-08 02:29] LABS: Urine Appearance TURBID; Urine Blood 3+ (NEG); Urine Glucose NEGATIVE (NEG); Urine Protein 2+ (NEG)
[2018-06-08 02:34] LABS: Urine Bilirubin NEGATIVE (NEG); Urine Color DK YELLOW
[2018-06-08 02:39] LABS: Urine Microscopic Reflex ORDER UMIC
[2018-06-08 02:41] LABS: Urine Bacteria LOADED /HPF (<20); Urine Culture Reflex Order NOT NEEDED
--- NOTE | 2018-06-08 03:02 | PN ---
Chief Complaint: Shortness of breath and acute kidney injury. Subjective: The patient has nonoliguric urine output. She has acute kidney injury on chronic kidney disease, undergoing daily dialysis for volemia control. The patient has leg edema as well as shortn ess of breath. The patient was treated with daily dialysis. The patient was found to have hyponatre alisia. Sodium level dropped from 130 to 125. The patient is noncompliant with p.o. fluid restriction and uncontrolled p.o. fluid intake is causing the hyponatremia in this particular patient. Review of Systems: Denies fever, chills. Complains of fatigue. Assessment/plan: 1.Acute-on chronic systolic dysfunction, congestive heart failure. Continue low-sodium diet and p.o . fluid restriction. 2.Hyperkalemia, resolved. Monitor potassium level. 3.End-stage renal disease. The patient will continue dialysis. There is some element of acute kidn ey injury on chronic kidney disease. At this point, the patient is dialysis dependent. 4.Renal osteodystrophy. Monitor calcium and phosphorus level. Adjust binders. DEBORAH/MODL Voice ID: [id number] Report ID: [id number]
[2018-06-08] MEDS: MORPHINE 2 MG/ML SYR IV PRN ×2 (04:33→10:11)
[2018-06-08 08:04] LABS: Potassium 5.4 mmol/L (3.5-5.1)
[2018-06-08] MEDS: CEFTRIAXONE/SWI 1gm 1 GM/10 ML SYR IV SCH (09:00)
[2018-06-08 10:04] LABS: Albumin 3.7 g/dL (3.4-5.0); Bilirubin Direct 0.2 mg/dL (0-0.2); Bilirubin Total 0.5 mg/dL (0.2-1.0); Protein, Total 8.4 g/dL (6.4-8.2)
[2018-06-08] MEDS: SODIUM CHLORIDE 1 GM TAB PO SCH ×2 (10:10→17:51)
[2018-06-08] MEDS: ENOXAPARIN 30 MG/0.3 ML SQ SCH (10:10)
[2018-06-08] MEDS ORDERED: Meropenem 1000 MG/VIAL IV SCH (11:00)
[2018-06-08] MEDS: IPRATROPIUM BROM 0.5MG/2.5ML NEB PRN (11:14)
[2018-06-08] MEDS: ALBUTEROL 2.5 MG/3 ML NEB SOL NEB PRN (11:14)
[2018-06-08] MEDS: DOXYCYCLINE 100 MG in NA CHLORIDE 0.9% 100 ML IVPB SCH ×2 (11:30→21:37)
[2018-06-08 12:06] LABS: Absolute Monocytes 0.5 K/uL (0.1-1.3); Absolute Neutrophil 6.2 K/uL (1.8-8.0); Basophils % 0.3 % (0-1.3); Eosinophils % 0.1 % (0-4.4); Hematocrit 37.8 % (36.0-45.0); Lymphocytes % 23.2 % (15.3-44.8); MCV 99.6 fL (80-100); MPV 9.2 fL (7.6-11.3); Monocytes % 6.2 % (3.3-12.3); RBC Red Blood Cell Count 3.79 M/uL (3.86-4.86)
[2018-06-08 12:38] LABS: Platelet Estimate ADEQ; Urine White Blood Cell Casts OK
[2018-06-08 12:39] LABS: Anisocytosis 1+; Blood Morphology Comment NOTED (NOT SEEN); Macrocytosis 2+; Platelets, Giant NOTED; Polychromasia 1+
--- NOTE | 2018-06-08 15:11 | PN ---
Date of Progress Note: 06/08/2018 Subjective: Patient seen and examined. Chart reviewed and case discussed with RN. Family at the bedside. Treatment plan explained. All questions were answered. Patient for dialysis again today. The patient points pain in her back and also complains of dysuria. Overall, significant generalized malaise. Review of Systems: Negative except as above. Medications: List reviewed. Objective: Vital Signs: Temperature 97.1, heart rate 93, blood pressure 140/ 104, respirations 18, O2 of 97% on 2 L via nasal cannula. General: Awake, alert, oriented x3. Patient is in moderate distress, ill- appearing, cachectic, frail female. BMI of 14. CV: S1 and S2. Peripheral pulses present. Respiratory: Moving air well bilaterally. No wheezing or stridor. Gastrointestinal: Abdomen is soft, nontender, nondistended. Positive bowel sounds. Extremities: No cyanosis, clubbing, or edema. Neuro: Nonfocal. Skin: Patient has hemodialysis port in the right chest and Port-A-Cath on the left. No signs of infection. Laboratory Data: Sodium 121, potassium 5.4, chloride 86, CO2 20, BUN 51, creatinine 3.7, glucose 133, calcium 8.9. AST 84, ALT 222, alkaline phos 227. WBCs too many. Blood cultures no growth date. Urine culture shows Klebsiella oxytoca and Enterobacter cloacae both sensitive to tetracycline, meropenem, and Bactrim. Assessment: A 53-year-old female with: 1. Acute respiratory distress with hypoxia. Patient is still on supplemental oxygenation via nasal cannula 2 L. We will continue likely secondary to fluid overload from end-stage renal disease and congestive heart failure. 2. Acute on chronic systolic congestive heart failure. BNP is significantly elevated. Chest x-ray does show improvement. We will continue diuresis. 3. End-stage renal disease, on hemodialysis. Appreciate Dr. Carson input. Continue dialysis. 4. Hyperkalemia. We will correct with dialysis. 5. Hyponatremia, likely related to increased p.o. intake. Continue to encourage fluid restriction. 6. Metastatic breast cancer. 7. Severe malnutrition, failure to thrive, BMI 14. 8. Acute cystitis with hematuria, urine culture growing out Klebsiella and Enterobacter. Plan: We will adjust IV antibiotics. Overall poor prognosis. The patient is not considering hospice at this time. Continue with IV antibiotics and likely discharge on p.o. antibiotics if patient has improved clinical response with the hemodialysis today. /BIANCA Voice ID: [id number] Report ID: [id number] [facility]
--- NOTE | 2018-06-08 17:25 | PN ---
Date of Progress Note: 06/08/2018 Subjective: The patient was admitted with CHF exacerbation. The patient being dialyze on a daily ba sis. We managed to drop her weight for 2 kg. Physical Examination: Vital Signs: When I saw the patient blood pressure was 140/100. Chest: Clear to auscultation. Heart: S1 and S2. Systolic murmur. Abdomen: Soft, nontender. Extremities: No edema. Laboratory Data: WBC 8.8, H and H 12.9/37.8, platelets 178. Sodium 121, potassium 5.4, bicarb 20, B UN 60, creatinine 3.7, bicarb of 81, alkaline phosphatase 227, albumin 3.7. Current Medications: The patient on its include: 1.Doxycycline. 2.Promethazine. 3.Albumin. 4.Heparin. 5.Carvedilol 3.25. 6.Alprazolam. 7.Lasix. 8.Morphine. Assessment And Plan: 1.End-stage renal disease secondary to acute kidney injury. Still on over volume side. I am going to challenge the patient with dialysis again today. We going to try to take full more fluid today. 2.Hypertension giving congestive heart failure. I am going to start the patient on Reid. 3.Anemia of chronic kidney disease, stable. Continue current medication. 4.Hyponatremia dilutional secondary to renal failure and congestive heart failure, going to be corre cted with dialysis. 5.Urinary tract infection. Culture growing Klebsiella and enterococcus multidrug resistant, sensiti ve to meropenem and tetracycline. The patient was started on doxy. Giving her condition, I am going to switch the patient on meropenem and we will follow up. ZIA Voice ID: [id number] Report ID: [id number]
[2018-06-08] MEDS: Meropenem 500 MG in NA CHLORIDE 0.9% 100 ML IV SCH (17:51)
[2018-06-08] MEDS: PROMETHAZINE 25 MG/ML VIAL IV PRN (18:33)
[2018-06-08] MEDS: CARVEDILOL 3.125 MG TAB PO SCH (21:35)
[2018-06-09] MEDS: IPRATROPIUM BROM 0.5MG/2.5ML NEB PRN (03:11)
[2018-06-09] MEDS: ALBUTEROL 2.5 MG/3 ML NEB SOL NEB PRN (03:11)
[2018-06-09] MEDS: SODIUM CHLORIDE 1 GM TAB PO SCH ×2 (08:43→16:11)
[2018-06-09] MEDS: ENOXAPARIN 30 MG/0.3 ML SQ SCH (08:44)
[2018-06-09] MEDS: DOXYCYCLINE 100 MG in NA CHLORIDE 0.9% 100 ML IVPB SCH (09:00)
[2018-06-09] MEDS ORDERED: Meropenem 500 MG VIAL IV SCH (09:00)
[2018-06-09] MEDS ORDERED: SACUBITRIL/VALSARTAN 24/26 MG TAB PO SCH (09:00)
[2018-06-09] MEDS: ALBUMIN HUMAN 25% 50 ML IV SCH (10:06)
[2018-06-09 14:23] LABS: Albumin 3.2 g/dL (3.4-5.0); Bilirubin Total 0.6 mg/dL (0.2-1.0); Potassium 3.1 mmol/L (3.5-5.1); Protein, Total 6.8 g/dL (6.4-8.2)
[2018-06-09] MEDS: Meropenem 500 MG in NA CHLORIDE 0.9% 100 ML IV SCH (16:10)
[2018-06-09] MEDS ORDERED: NA CHLORIDE 0.9% 250 ML ONE ×3 (17:50→21:25)
[2018-06-09] MEDS ORDERED: NA CHLORIDE 0.9% 250 ML IV ONE ×3 (18:00→21:47)
--- NOTE | 2018-06-09 19:30 | PN ---
Date of Progress Note: 06/09/2018 Subjective: The patient seen and examined, chart reviewed, and case discussed with RN and Dr. Wei. The patient is not interested in hospice, does not want any home help either. The patient continues to remain weak and has a very poor prognosis given her overall status. Parents at the bedside. Treatment plan explained, all questions answered. Review of Systems: Negative except as above. Medications: List reviewed. Physical Examination: Vital Signs: Temperature 97, heart rate 71, blood pressure 95/62, respirations 18, O2 100% on 3 L via nasal cannula. General: Awake, alert, oriented x3, ill-appearing, cachectic female. BMI 14. CV: S1 and S2. Regular rate and rhythm. Peripheral pulses present. Respiratory: Diminished breath sounds overall. No use of accessory muscles. Gastrointestinal: Abdomen is soft, nontender, nondistended. Positive bowel sounds. Extremities: No clubbing, cyanosis, edema. Neuro: Nonfocal. Laboratory Data: Sodium 132, potassium 3.1, chloride 96, CO2 24, BUN 18, creatinine 1.8, glucose 180, calcium 8. AST 35, ALT 122, alkaline phosphatase 171, albumin 3.2. Urine culture growing Klebsiella and enterobacter. Assessment And Plan: A 53-year-old female with. 1. Acute respiratory distress with hypoxia. The patient on 3 L via nasal cannula. Pulmonology has been consulted. Likely secondary to fluid overload from end-stage renal disease, heart failure. 2. Acute-on chronic systolic congestive heart failure. Continue diuresis, monitor I's and O's and daily weights. 3. End-stage renal disease, on hemodialysis. The patient is being dialyzed [id number]. 4. Hyperkalemia, corrected. Now slightly low. We will continue to monitor. 5. Hyponatremia, improved with dialysis and seems to be recurrent. We will encourage fluid restriction. 6. Metastatic breast cancer. 7. Severe malnutrition protein calorie, failure to thrive, BMI 14. 8. Acute cystitis with hematuria, urine culture growing Klebsiella and enterobacter. We will continue with meropenem. We will set up meropenem through dialysis for the next 10 days, given her immunocompromised and diminishing health status. 9. Gastrointestinal and deep venous thrombosis prophylaxis addressed. Plan: We will discuss with social work. We will need to arrange for meropenem. If not, then doxycycline. Overall very poor prognosis. SA/MODL Voice ID: [id number] Report ID: [id number] [facility] CENTERMarina
[2018-06-09] MEDS ORDERED: NA CHLORIDE 0.9% 250 ML IV PRN (21:18)
--- NOTE | 2018-06-10 01:46 | PN ---
Date of Progress Note: 06/09/2018 Subjective: The patient is still occasionally complaining for shortness of breath. The patient is b eing dialyzed daily. Today on dialysis, developed low blood pressure. Physical Examination: Vital Signs: When I saw the patient, blood pressure of 95/62, pulse of 73. Chest: Clear to auscultation. Heart: S1, S2. Regular. Abdomen: Soft, nontender. Extremities: No edema. Laboratory Data: WBC 8.8, H and H 12.9/37.8, and platelets 178. Sodium 132, potassium 3.1, bicarb 2 4, BUN 18, creatinine 1.8, and calcium of 8. The patient is anuric. Medications: Current medications the patient on include; 1.Meropenem. 2.Promethazine. 3.Albuterol. 4.Heparin. 5.Lovenox. 6.Entresto. 7.Carvedilol. 8.Alprazolam. 9.Breathing treatment. 10.Morphine. Assessment And Plan: 1.End-stage renal disease secondary to cardiorenal/TMA, anuric. We will continue daily dialysis. T he patient has overall poor prognosis. We had long discussion with the patient regarding the option of treatment including hospice referral. The patient is still in denial. We have difficulty handlin g the dialysis, giving advanced congestive heart failure and occasional non-tolerating the dialysis. 2.Hypertension, currently hypotension. I will discontinue all blood pressure medication including E ntresto. Discontinue carvedilol and we will follow up the patient. 3.Congestive heart failure, as above. 4.Anemia of chronic kidney disease. No need for AIDEE for the time being. 5.Malnourished. Continue supportive care. 6.Respiratory failure secondary to congestive heart failure. Continue to establish better volume co ntrol. 7.Chronic obstructive pulmonary disease. We will consult Pulmonary. 8.Urinary tract infection, multidrug resistant. We will continue on meropenem. ZIA Voice ID: [id number] Report ID: [id number]
[2018-06-10 04:37] VITALS: O2SAT 98
[2018-06-10] MEDS ORDERED: TRAMADOL HCL 50 MG TAB PO ONE (06:33)
[2018-06-10] MEDS: SODIUM CHLORIDE 1 GM TAB PO SCH ×2 (08:00→16:49)
[2018-06-10] MEDS: ENOXAPARIN 30 MG/0.3 ML SQ SCH (08:24)
[2018-06-10] MEDS: ALBUMIN HUMAN 25% 50 ML IV SCH (10:17)
--- NOTE | 2018-06-10 11:14 | P.PN ---
Subjective Date of Service: 06/10/18 Chief Complaint: Respiratory distress Subjective: No new changes Pt with ESRD on daily home HD, breast CA IV admitted for SOB and hypoxia Seen and examined during HD Pt was hypotensive yesterday with SBP down to 60 BP improved after 1liters IVF Hd for 2 days with minimal fluid removal will cont HD daily and UF as per Pt wt and volume status Physical Examination - Vital Signs Temperature: 97.1 F Blood Pressure: 100/62 Pulse: 71 Respirations: 20 Pulse Ox (%): 98 - Physical Exam General: In no apparent distress, Oriented x3 HEENT: Atraumatic Neck: Supple, Without JVD or thyroid abnormality Respiratory: Clear to auscultation bilaterally, Normal air movement Cardiovascular: No edema Gastrointestinal: Normal bowel sounds Integumentary: No rashes Assessment And Plan - Current Problems (Diagnosis) (1) Acute on chronic systolic CHF (congestive heart failure) Onset Date: 05/04/18 Current Visit: No Status: Acute (2) Hyperkalemia Current Visit: No Status: Acute (3) Hypoxemia Onset Date: 06/07/18 Current Visit: No Status: Acute (4) ESRD (end stage renal disease) Onset Date: 04/05/18 Current Visit: No Status: Chronic (5) Metastatic breast cancer Onset Date: 06/07/18 Current Visit: No Status: Chronic - Plan A 53 Y/O woman with PMhx of ESRD on daily HD started on 02/2018 , ESRD due to chemo therapy and TMA, metastatic breast CA, COPD and CHF pt presented with SOB , O2 sat 80% and improved on BiPAP denied chest pain, palpitation, vomiting or diarrrhea was treated for UTI recently ESRD on HD via PC will cont daily HD renal dose all meds fluid restriction will adjust UF as per Pt wt hypotension BP meds vs excessive fluid removal Bp meds stopped will cont daily HD and UF as per volume status and Wt daily WT Albumin 25% 100mg Q8hrs Hypoxia , resolved likely 2/2 chf excacerbation and pul metastasis daily HD Oxygen BiPAP prn BNP 170,[address]; pleural effusion will rpt CXR Elevated LFT possibly due to mets disease improving Metastatic breast Ca UTI Kelsiella and enterobacter senstive to merrem on merrem F/U cultures
[2018-06-10] MEDS: ONDANSETRON 4 MG/2 ML VIAL IV PRN (11:55)
--- NOTE | 2018-06-10 13:55 | P.CNS ---
Date of Consult: 06/10/18 Reason for Consult: Shortness of breath Chief Complaint: Respiratory distress History of Present Illness: Patient is 53 years of age with a history of COPD CHF and end-stage renal disease admitted with shortness of breath also has a history of breast cancer patient has a Port-A-Cath for dialysis also complaining of pain in her right leg since the procedure was done recently patient does use bronchodilators at home patient had a mild respiratory alkalosis on admission Allergies ciprofloxacin HCl [From Cipro] Allergy (Unknown, Verified 04/02/18 13:39) Unknown Sulfa (Sulfonamide Antibiotics) Allergy (Unknown, Verified 04/02/18 13:39) Unknown Home Medications: Albuterol Sulfate [Ventolin Hfa] 1 puff IH Q6HP PRN 04/03/18 Carvedilol 3.125 mg PO 2100 04/03/18 traMADol HCL [Ultram*] 1 tab PO BID PRN 05/03/18 ALPRAZolam [Xanax*] 1 tab PO DAILY PRN 05/20/18 Sennosides [Senokot] 1 tab PO DAILY PRN 05/20/18 Vit B Comp No.3/Folic/C/Biotin [Nephro-Uriel Rx Tablet] 1 each PO DAILY 06/04/18 - Past Medical/Surgical History Diabetic: No -: right breast sx removal of lump, and lymph nodes -: breast ca-metastasized, radiation, chemo stopped 03/2018 complications -: renal disease -: ESRD -: COPD -: hysterectomy -: -: expl lap, rk -: port a cath left chest wall -: gabbi right chest wall - Family History Mother Medical History: Diabetes, Cancer Notes: breast ca Father Medical History: Heart disease, Hypertension - Social History Smoking Status: Unknown if ever smoked Alcohol use: No CD- Drugs: No Caffeine use: No Review of Systems General: Weakness Respiratory: Cough, Shortness of Breath Musculoskeletal: Other (Pain in the right leg) Physical Examination Temp Pulse Resp BP Pulse Ox 97.1 F 71 20 100/62 98 06/10/18 11:15 06/10/18 11:15 06/10/18 11:15 06/10/18 11:15 06/10/18 11:15 General: Alert, Oriented x3, Moderate distress Neck: Supple Respiratory: Clear to auscultation bilaterally, Diminished Cardiovascular: No edema, Regular rate/rhythm, Normal S1 S2 Gastrointestinal: Normal bowel sounds, Soft and benign - Problems (1) COPD (chronic obstructive pulmonary disease) Current Visit: Yes Status: Acute Plan: Patient is 53 years of age with a history of COPD admitted with worsening dyspnea chest x-ray shows some clips on the right side of her breast Port-A- Cath on the left side and a dialysis catheter on the right side COPD changes patient's oxygenation is satisfactory no fever white count is normal patient has EES HDL in the urine sensitive to meropenem she does have patchy dependent infiltrate possible atelectasis also has mets to the bones patient will be receiving at least 2 weeks a meropenem that should be adequate therapy for a possible infection and problems history pain in the right leg since the procedure was done
[2018-06-10] MEDS: FENTANYL CITR 100 MCG/2 ML IV PRN ×2 (14:07→20:54)
[2018-06-10 16:40] VITALS: BMI 15.0
[2018-06-10] MEDS: Meropenem 500 MG in NA CHLORIDE 0.9% 100 ML IV SCH (16:44)
[2018-06-10] MEDS: ALBUMIN HUMAN 25% 200 ML IV SCH (16:46)
[2018-06-10] MEDS: PROMETHAZINE 25 MG/ML VIAL IV PRN ×2 (16:46→22:17)
--- NOTE | 2018-06-10 16:49 | PN ---
Date of Progress Note: 06/10/2018 Subjective: The patient seen and examined. Chart reviewed and case discussed with RN and Dr. Tennille gr. The patient complaining of swelling of her hands and feet today. The patient was very hypotensi ve yesterday after dialysis with systolic blood pressure in the 70s to 60s requiring multiple fluid b oluses for a total of 1.25 L. The patient denies any shortness of breath or chest tightness. The pa tient will be going for dialysis again today. Discussed hospice with the patient. The patient wants to have hospice that will allow her to continue dialysis. Review of Systems: Negative except as above. Medications: List reviewed. Objective: Vital Signs: Temperature 97.1, heart rate 71, blood pressure 100/62, respirations 20, O2 98% on 2 L via nasal cannula. General: Awake, alert, oriented x3. Ill-appearing, appears older than stated age. Frail, cachectic female. BMI 14. CV: S1, S2. Peripheral pulses present. Regular rate and rhythm. Respiratory: Moving air well bilaterally. No crackles. Gastrointestinal: Abdomen is soft, nontender, nondistended. Positive bowel sounds. Extremities: No clubbing or cyanosis. The patient does have some peripheral edema. Neurologic: Nonfocal. Laboratory Data: Labs are currently pending. The patient did refuse her potassium today. Assessment: A 53-year-old female with: 1.Acute respiratory distress with hypoxia. The patient is still requiring supplemental oxygen. Juarez s use oxygen at home. Pulmonology consulted for possible home vent. Respiratory distress secondary to fluid overload from congestive heart failure and renal disease. 2.Acute on chronic systolic congestive heart failure. Continue diuresis. Monitor I's and O's. Flu id restriction. The patient did receive IV fluids yesterday due to hypotension and does have some pe ripheral edema today. 3.Hypotension requiring IV fluid boluses. Blood pressure is improved. 4.End-stage renal disease, on hemodialysis. Will be dialyzed again today. 5.Hypokalemia, corrected. We will continue to monitor. 6.Hyponatremia, improved with dialysis. 7.Metastatic breast cancer. 8.Severe protein-calorie malnutrition and failure to thrive. BMI is 14. 9.Acute cystitis with hematuria. Culture growing klebsiella and enterobacter. We will continue wit h meropenem. survey workers supervisor working on getting meropenem approved through dialysis. 10.Gastrointestinal and deep venous thrombosis prophylaxis addressed. Plan: Patient was interested in hospice. It was explained to her that overall prognosis is very poo r. She has pain, wants to be comfortable. However, she does not wish to stop dialysis. We will hav e the patient contact different hospice company that does provide dialysis and will follow up with so madai worker. /BIANCA Voice ID: [id number] Report ID: [id number]
[2018-06-10] MEDS: DULERA 200/5 (MOMETASONE/FORMOTEROL) INHALER IH SCH (20:55)
[2018-06-11] MEDS: ALBUMIN HUMAN 25% 200 ML IV SCH ×2 (00:40→08:40)
[2018-06-11] MEDS: FENTANYL CITR 100 MCG/2 ML IV PRN ×3 (00:41→15:11)
[2018-06-11] MEDS: PROMETHAZINE 25 MG/ML VIAL IV PRN ×2 (05:20→11:38)
[2018-06-11] MEDS: SODIUM CHLORIDE 1 GM TAB PO SCH ×2 (08:00→17:00)
[2018-06-11] MEDS: DULERA 200/5 (MOMETASONE/FORMOTEROL) INHALER IH SCH (08:39)
[2018-06-11] MEDS: ENOXAPARIN 30 MG/0.3 ML SQ SCH (08:41)
--- NOTE | 2018-06-11 08:49 | RAD REPORT ---
EXAM DESCRIPTION: RAD - Chest Single View - 06/11/2018 6:59 am CLINICAL HISTORY: evaluate for pleuraledema/effusion Chest pain. COMPARISON: Chest Single View dated 06/07/2018; Chest Single View dated 06/04/2018; Chest Single View dated 05/09/2018; Chest Single View dated 05/03/2018 FINDINGS: Portable technique limits examination quality. The lungs are grossly clear. Small left pleural effusion is noted. Heart size is mildly enlarged.Righ t-sided venous catheter tip in SVC. Left-sided port catheter has tip in the SVC. IMPRESSION: Small left pleural effusion.
--- NOTE | 2018-06-11 10:13 | P.PN ---
Subjective Date of Service: 06/11/18 Chief Complaint: Respiratory distress Pt with ESRD on daily home HD, breast CA IV admitted for SOB and hypoxia BP normalized now Will dc Albumin EDW to set at 38.5 suprapubic pain , had BM yesterday Straight hill to R/O retention cont merrem plan to dc to hospice and Cont Home HD Consider to cont merrem or switch to Ertapenem to be given at HD Physical Examination - Vital Signs Temperature: 97.2 F Blood Pressure: 131/72 Pulse: 90 Respirations: 18 Pulse Ox (%): 99 - Physical Exam General: Oriented x3 HEENT: Atraumatic Neck: Supple, Without JVD or thyroid abnormality Respiratory: Clear to auscultation bilaterally Cardiovascular: No edema, Regular rate/rhythm, Normal S1 S2, No rubs, No murmurs Gastrointestinal: Soft and benign, No tenderness, No masses Assessment And Plan - Current Problems (Diagnosis) (1) Acute on chronic systolic CHF (congestive heart failure) Onset Date: 05/04/18 Current Visit: No Status: Acute (2) Hyperkalemia Current Visit: No Status: Acute (3) Hypoxemia Onset Date: 06/07/18 Current Visit: No Status: Acute (4) ESRD (end stage renal disease) Onset Date: 04/05/18 Current Visit: No Status: Chronic (5) Metastatic breast cancer Onset Date: 06/07/18 Current Visit: No Status: Chronic - Plan A 53 Y/O woman with PMhx of ESRD on daily HD started on 02/2018 , ESRD due to chemo therapy and TMA, metastatic breast CA, COPD and CHF pt presented with SOB , O2 sat 80% and improved on BiPAP denied chest pain, palpitation, vomiting or diarrrhea was treated for UTI recently ESRD on HD via PC will cont daily HD renal dose all meds fluid restriction EDW to 38.5 hypotension BP meds vs excessive fluid removal Resolved Hypoxia , resolved likely 2/2 chf excacerbation and pul metastasis Pulmonary evaluation apprecited CXR now, no edema or congestion, trace Lt effusion Elevated LFT possibly due to mets disease improving Metastatic breast Ca plan to discharge to hospice UTI Kelsiella and enterobacter senstive to merrem on merrem can cont merrem or ertapenem during HD
[2018-06-11 16:05] VITALS: BP 138/71; TEMP 98.3
[2018-06-11] MEDS: Meropenem 500 MG in NA CHLORIDE 0.9% 100 ML IV SCH (17:52)
[2018-06-11] MEDS ORDERED: HEPARIN 500 UNIT/5 ML SYR IV SCH (18:00)
--- NOTE | 2018-06-12 15:06 | DS ---
Date of Discharge: 06/11/2018 Consultants: Dr. Wei, Nephrology; Dr. Juan with Pulmonology. Admitting Diagnoses: 1.Acute-on chronic systolic congestive heart failure. 2.Hypoxemia. 3.Respiratory distress. 4.Respiratory failure. 5.End-stage renal disease. 6.Metastatic breast cancer. Discharge Diagnoses: 1.Acute respiratory distress with hypoxia. 2.Acute-on chronic systolic congestive heart failure. 3.End-stage renal disease, on dialysis. 4.Hypotension, likely from dialysis. 5.Hypokalemia. 6.Hyponatremia. 7.Metastatic breast cancer. 8.Severe protein-calorie malnutrition. Failure to thrive. Body mass index of 14. 9.Acute cystitis with hematuria secondary to Klebsiella and enterobacter, on meropenem. Hospital Course: The patient is a 53-year-old female, who came into the hospital with respiratory di stress. The patient overall has a very poor prognosis being on dialysis and having metastatic breast cancer. The patient is also very frail and has a BMI of 15. The patient is on oxygen at home. The patient did require some supplemental oxygenation including BiPAP in the hospital due to acute-on ch ronic systolic CHF. The patient was diuresed. Nephrology and Pulmonology were consulted. The patie nt did have multiple electrolyte abnormalities secondary to her CHF and cancer. The patient did impr ove with dialysis, however, is in her fragile state, became hypotensive with dialysis and she require d fluid boluses, which in turn caused some edema and fluid retention. The patient did have some elev ated liver enzymes, which trended down. She also had a urinary infection with secondary to Klebsiell a Enterobacter which was treated with meropenem, given her health status and immunocompromised state due to her end-stage renal disease and cancer. The patient initially was resistant to hospice due to lack of hemodialysis options, however, after meeting with different hospice company, the patient did agree to hospice with dialysis. The patient's main goals are care and comfort measures. She unders tands that hospice does not include aggressive treatments especially for her cancer, and she overall has a very poor prognosis. The patient was then set up with home hospice and then discharged home wi th meropenem with dialysis. Medications: As per medication reconciliation list. Follow Up: With hospice physician as needed. Diet: Renal diet. Activity: As tolerated. Physical Examination: General: Awake, alert, oriented x3, in some mild distress due to pain. CV: S1, S2. Respiratory: Diminished breath sounds. Extremities: No clubbing, cyanosis. The patient has some pedal edema. Gastrointestinal: Abdomen is soft, nontender, nondistended. Positive bowel sounds. Neurologic: Nonfocal. Total time spent discharging the patient was 37 minutes. /BIANCA Voice ID: [id number] Report ID: [id number]
== END 2018-06-11 18:33 | disposition hospice, home (50) | DRG 291 ==
LOC: ER 02:34 → ERHOLD 06:00 → 2ND 07:42
PROVIDERS: ADMIT Hospitalist; ATTEND Family Medicine
PROC: 5A1D70Z Performance of Urinary Filtration, Intermittent, Less than 6 Hours Per Day (ICD-10-PCS; principal; 2018-06-04)
PROC: 5A09457 Assistance with Respiratory Ventilation, 24-96 Consecutive Hours, Continuous Positive Airway Pressure (ICD-10-PCS; 2018-06-04)
PROC: 5A1D70Z Performance of Urinary Filtration, Intermittent, Less than 6 Hours Per Day (ICD-10-PCS; 2018-06-05)
PROC: 5A1D70Z Performance of Urinary Filtration, Intermittent, Less than 6 Hours Per Day (ICD-10-PCS; 2018-06-06)
PROC: 5A1D70Z Performance of Urinary Filtration, Intermittent, Less than 6 Hours Per Day (ICD-10-PCS; 2018-06-07)
PROC: 5A1D70Z Performance of Urinary Filtration, Intermittent, Less than 6 Hours Per Day (ICD-10-PCS; 2018-06-08)
PROC: 5A1D70Z Performance of Urinary Filtration, Intermittent, Less than 6 Hours Per Day (ICD-10-PCS; 2018-06-09)
PROC: 5A1D70Z Performance of Urinary Filtration, Intermittent, Less than 6 Hours Per Day (ICD-10-PCS; 2018-06-10)
PROC: 5A1D70Z Performance of Urinary Filtration, Intermittent, Less than 6 Hours Per Day (ICD-10-PCS; 2018-06-11)
DX: I13.2 Hypertensive heart and chronic kidney disease with heart failure and with stage 5 chronic kidney disease, or end stage renal disease (principal); N18.6 End stage renal disease; I50.23 Acute on chronic systolic (congestive) heart failure; M31.1 Thrombotic microangiopathy; E43 Unspecified severe protein-calorie malnutrition; E87.1 Hypo-osmolality and hyponatremia; N17.9 Acute kidney failure, unspecified; Z68.1 Body mass index [BMI] 19.9 or less, adult; N30.01 Acute cystitis with hematuria; R06.03 Acute respiratory distress; R09.02 Hypoxemia; Z99.2 Dependence on renal dialysis; E87.5 Hyperkalemia; T45.1X5A Adverse effect of antineoplastic and immunosuppressive drugs, initial encounter; Y92.019 Unspecified place in single-family (private) house as the place of occurrence of the external cause; J44.9 Chronic obstructive pulmonary disease, unspecified; Z91.11 Patient's noncompliance with dietary regimen; N25.0 Renal osteodystrophy; B96.89 Other specified bacterial agents as the cause of diseases classified elsewhere; B96.1 Klebsiella pneumoniae [K. pneumoniae] as the cause of diseases classified elsewhere; D63.1 Anemia in chronic kidney disease; Z16.24 Resistance to multiple antibiotics; I95.9 Hypotension, unspecified; R62.7 Adult failure to thrive; Z99.81 Dependence on supplemental oxygen; C50.919 Malignant neoplasm of unspecified site of unspecified female breast
CPT/HCPCS: 36415; 71045; 74176; 80048; 80053; 80076; 81003; 81015; 82150; 82805; 83690; 83735; 83880; 84100; 84484; 85025; 85610; 87040; 87077; 87086; 87088; 87186; 90935; 93005; 94640; 94660; 94760; 96365; 96375; 99285; J0696; J1170; J1642; J1644; J1650; J1940; J2270; J2405; J2550; J3010; J7606; P9047

== ENCOUNTER 2018-07-31 15:21 | Inpatient (IN) | payer OTHER ==
--- OUTSIDE RECORDS SUMMARY | 2018-07-31 15:29 | XMS REPORT ---
:1965 Author Organization [facility] Address [address] [place] [id number] Care Team Providers Name Role Phone BETTY [...] Value Reference Range Comments IRON (BEAKER) (test oqmh=287) 49 ug/dL 40-160 TOTAL IRON BINDING CAPACITY (BEAKER) (test njdi=812) 216 ug/dL 250-450 IRON % SATURATION (2) (BEAKER) (test qlhv=2031) 23 % 20-55 BASIC METABOLIC [id number] 09:16:00 Test Item Value Reference Range Comments SODIUM (BEAKER) (test 133 meq/L 135-148 tznu=366) POTASSIUM (BEAKER) (test 3.2 meq/L 3.6-5.5 ikro=293) CHLORIDE (BEAKER) (test 97 meq/L 98-106 hdfz=562) CO2 (BEAKER) (test 24 meq/L 20-29 ojbq=294) BLOOD UREA NITROGEN 16 mg/dL 10-26 (BEAKER) (test ohiy=847) CREATININE (BEAKER) (test 2.18 mg/dL 0.50-1.20 lsha=760) GLUCOSE RANDOM (BEAKER) 130 mg/dL 70-110 (test nvoz=139) CALCIUM (BEAKER) (test 8.4 mg/dL 8.5-10.5 mrod=558) EGFR (BEAKER) (test 24 mL/min/1.73 sq m ESTIMATED GFR IS NOT yfkh=0324) ACCURATE CREATININE CLEARANCE IN PREDICTING GLOMERULAR FILTRATION RATE. ESTIMATED GFR IS NOT APPLICABLE FOR DIALYSIS PATIENTS. [id number] 06:45:00 Test Item Value Reference Range Comments FERRITIN (BEAKER) (test rext=706) 4333 ng/mL 10-291 CBC W/PLT COUNT & AUTO [id number] 05:54:00 Test Item Value Reference Range Comments WHITE BLOOD CELL COUNT (BEAKER) (test cyke=422) 5.2 K/ L 4.0-10.0 RED BLOOD CELL COUNT (BEAKER) (test vpkl=428) 2.63 M/ L 4.00-5.00 HEMOGLOBIN (BEAKER) (test xkpo=658) 8.6 GM/DL 12.0-15.5 HEMATOCRIT (BEAKER) (test ealc=412) 27.2 % 36.0-46.0 MEAN CORPUSCULAR VOLUME (BEAKER) (test gpto=164) 103.4 fL 82.0-99.0 MEAN CORPUSCULAR HEMOGLOBIN (BEAKER) (test 32.7 pg 27.0-33.0 vfzb=947) MEAN CORPUSCULAR HEMOGLOBIN CONC (BEAKER) (test 31.6 GM/DL 32.0-36.0 cqpo=723) RED CELL DISTRIBUTION WIDTH (BEAKER) (test 19.9 % 12.0-15.0 oyku=877) PLATELET COUNT (BEAKER) (test pqmm=778) 135 K/CU MM 150-430 MEAN PLATELET VOLUME (BEAKER) (test nqce=199) 11.1 fL 6.0-11.5 NUCLEATED RED BLOOD CELLS (BEAKER) (test 0 /100 WBC 0-0 ffrc=863) NEUTROPHILS RELATIVE PERCENT (BEAKER) (test 80 % raob=762) LYMPHOCYTES RELATIVE PERCENT (BEAKER) (test 10 % xaoz=378) MONOCYTES RELATIVE PERCENT (BEAKER) (test 8 % nqjo=002) EOSINOPHILS RELATIVE PERCENT (BEAKER) (test 1 % cmyz=509) BASOPHILS RELATIVE PERCENT (BEAKER) (test 0 % krhv=974) NEUTROPHILS ABSOLUTE COUNT (BEAKER) (test 4.17 K/ L 1.80-8.00 shxl=439) LYMPHOCYTES ABSOLUTE COUNT (BEAKER) (test 0.51 K/ L 1.48-4.50 jqvk=961) MONOCYTES ABSOLUTE COUNT (BEAKER) (test 0.41 K/ L 0.00-1.30 shof=607) EOSINOPHILS ABSOLUTE COUNT (BEAKER) (test 0.04 K/ L 0.00-0.50 vwfw=584) BASOPHILS ABSOLUTE COUNT (BEAKER) (test 0.02 K/ L 0.00-0.20 sacd=062) IMMATURE GRANULOCYTES-RELATIVE PERCENT (BEAKER) 1 % 0-0 (test xafk=1837) HEMOGLOBIN [id number] 05:50:00 Test Item Value Reference Range Comments HEMOGLOBIN A1C (BEAKER) (test apxr=030) 4.6 % 4.3-6.1 HEMOGLOBIN [id number] 05:50:00 Test Item Value Reference Range Comments HEMOGLOBIN A1C (BEAKER) (test rhpq=256) 4.6 % 4.3-6.1 TROPONIN [id number] 19:01:00 Test Item Value Reference Range Comments TROPONIN I (BEAKER) (test crow=661) 0.11 ng/mL 0.00-0.15 Troponin I (TnI) levels [...] acute neurological disease, and persistent tachyarrhythmia.COMPREHENSIVE METABOLIC [id number] 18:55:00 Test Item Value Reference Range Comments TOTAL PROTEIN (BEAKER) 7.9 gm/dL 6.0-8.5 (test idsw=285) ALBUMIN (BEAKER) (test 3.8 g/dL 3.5-5.0 vdem=0599) ALKALINE PHOSPHATASE 73 U/L 30-115 (BEAKER) (test rodk=378) BILIRUBIN TOTAL (BEAKER) 0.7 mg/dL 0.1-1.2 (test vuew=138) SODIUM (BEAKER) (test 130 meq/L 135-148 lfab=411) POTASSIUM (BEAKER) (test 4.5 meq/L 3.6-5.5 drxv=309) CHLORIDE (BEAKER) (test 93 meq/L 98-106 qtfl=109) CO2 (BEAKER) (test 19 meq/L 20-29 oaci=047) BLOOD UREA NITROGEN 56 mg/dL 10-26 (BEAKER) (test wosz=016) CREATININE (BEAKER) (test 4.74 mg/dL 0.50-1.20 znfa=274) GLUCOSE RANDOM (BEAKER) 165 mg/dL 70-110 (test iptn=305) CALCIUM (BEAKER) (test 8.7 mg/dL 8.5-10.5 chck=065) AST (SGOT) (BEAKER) (test 40 U/L 5-40 ckag=953) ALT (SGPT) (BEAKER) (test 55 U/L 5-50 nrbz=198) EGFR (BEAKER) (test 10 mL/min/1.73 sq m ESTIMATED GFR IS NOT reqa=4664) ACCURATE CREATININE CLEARANCE IN PREDICTING GLOMERULAR FILTRATION RATE. ESTIMATED GFR IS NOT APPLICABLE FOR DIALYSIS PATIENTS. CBC W/PLT COUNT & AUTO [id number] 18:32:00 Test Item Value Reference Range Comments WHITE BLOOD CELL COUNT (BEAKER) (test ydor=268) 6.7 K/ L 4.0-10.0 RED BLOOD CELL COUNT (BEAKER) (test ambb=363) 2.68 M/ L 4.00-5.00 HEMOGLOBIN (BEAKER) (test vinj=052) 8.6 GM/DL 12.0-15.5 HEMATOCRIT (BEAKER) (test zsfp=736) 27.7 % 36.0-46.0 MEAN CORPUSCULAR VOLUME (BEAKER) (test koqa=840) 103.4 fL 82.0-99.0 MEAN CORPUSCULAR HEMOGLOBIN (BEAKER) (test 32.1 pg 27.0-33.0 dilf=512) MEAN CORPUSCULAR HEMOGLOBIN CONC (BEAKER) (test 31.0 GM/DL 32.0-36.0 hufl=418) RED CELL DISTRIBUTION WIDTH (BEAKER) (test 19.1 % 12.0-15.0 nlbv=379) PLATELET COUNT (BEAKER) (test cmbg=396) 148 K/CU MM 150-430 MEAN PLATELET VOLUME (BEAKER) (test kjqk=570) 10.4 fL 6.0-11.5 NUCLEATED RED BLOOD CELLS (BEAKER) (test 0 /100 WBC 0-0 jmsa=408) NEUTROPHILS RELATIVE PERCENT (BEAKER) (test 84 % svfy=606) LYMPHOCYTES RELATIVE PERCENT (BEAKER) (test 8 % sodo=975) MONOCYTES RELATIVE PERCENT (BEAKER) (test 7 % lhid=714) EOSINOPHILS RELATIVE PERCENT (BEAKER) (test 0 % cgjr=027) BASOPHILS RELATIVE PERCENT (BEAKER) (test 0 % beyw=708) NEUTROPHILS ABSOLUTE COUNT (BEAKER) (test 5.59 K/ L 1.80-8.00 oroe=407) LYMPHOCYTES ABSOLUTE COUNT (BEAKER) (test 0.54 K/ L 1.48-4.50 ohcs=291) MONOCYTES ABSOLUTE COUNT (BEAKER) (test 0.49 K/ L 0.00-1.30 lhea=615) EOSINOPHILS ABSOLUTE COUNT (BEAKER) (test 0.01 K/ L 0.00-0.50 kxtp=123) BASOPHILS ABSOLUTE COUNT (BEAKER) (test 0.03 K/ L 0.00-0.20 gxde=761) IMMATURE GRANULOCYTES-RELATIVE PERCENT (BEAKER) 1 % 0-0 (test pjmk=9261) MARIA LUISA, THROMBIN [id number] 08:05:00Reason for exam:->Thrombin injection to right SFAFINAL REPORT Ultrasound guided thrombin injection, 04/28/2018. 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 Modality: Fluoroscopy. Sedation: None. Cooler Room Worker: Zee. Gas Blender: Jorge. Approach: Right inguinal region. Estimated blood [...] Contrast was injected through the micropuncture 4 [place] sheath for a DSA run to evaluate [...] [facility] Rad[facility] Reading Room BASIC METABOLIC [id number] 04:40:00 Test Item Value Reference Range Comments SODIUM (BEAKER) (test 131 meq/L 136-145 nqvs=270) POTASSIUM (BEAKER) (test 4.5 meq/L 3.5-5.1 Specimen slightly ocbs=615) hemolyzed CHLORIDE (BEAKER) (test 100 meq/L 98-107 vidr=403) CO2 (BEAKER) (test 22 meq/L 22-29 yxbw=799) BLOOD UREA NITROGEN 29 mg/dL 7-21 (BEAKER) (test nhmn=178) CREATININE (BEAKER) (test 3.52 mg/dL 0.57-1.25 Specimen slightly qnwo=978) hemolyzed GLUCOSE RANDOM (BEAKER) 110 mg/dL 70-105 (test zees=704) CALCIUM (BEAKER) (test 8.6 mg/dL 8.4-10.2 axio=988) EGFR (BEAKER) (test 14 mL/min/1.73 sq m ESTIMATED GFR IS NOT epbh=0647) ACCURATE CREATININE CLEARANCE IN PREDICTING GLOMERULAR FILTRATION RATE. ESTIMATED GFR IS NOT APPLICABLE FOR DIALYSIS PATIENTS. [id number] 04:37:00 Test Item Value Reference Range Comments MAGNESIUM (BEAKER) (test 2.0 mg/dL 1.6-2.6 Specimen slightly hemolyzed nwow=200) [id number] 04:37:00 Test Item Value Reference Range Comments PHOSPHORUS (BEAKER) (test 3.1 mg/dL 2.3-4.7 Specimen slightly hemolyzed cguz=501) CBC W/PLT COUNT & AUTO [id number] 04:27:00 Test Item Value Reference Range Comments WHITE BLOOD CELL COUNT (BEAKER) (test nqrk=873) 4.0 K/ L 3.5-10.5 RED BLOOD CELL COUNT (BEAKER) (test yark=886) 3.04 M/ L 3.93-5.22 HEMOGLOBIN (BEAKER) (test kkcs=875) 9.5 GM/DL 11.2-15.7 HEMATOCRIT (BEAKER) (test jlzw=638) 30.9 % 34.1-44.9 MEAN CORPUSCULAR VOLUME (BEAKER) (test xnpo=195) 101.6 fL 79.4-94.8 MEAN CORPUSCULAR HEMOGLOBIN (BEAKER) (test 31.3 pg 25.6-32.2 fkkh=084) MEAN CORPUSCULAR HEMOGLOBIN CONC (BEAKER) (test 30.7 GM/DL 32.2-35.5 ytxv=494) RED CELL DISTRIBUTION WIDTH (BEAKER) (test 18.8 % 11.7-14.4 sugx=394) PLATELET COUNT (BEAKER) (test bxxi=535) 139 K/CU MM 150-450 MEAN PLATELET VOLUME (BEAKER) (test pmvh=692) 11.3 fL 9.4-12.3 NUCLEATED RED BLOOD CELLS (BEAKER) (test 0 /100 WBC 0-0 dpsz=709) NEUTROPHILS RELATIVE PERCENT (BEAKER) (test 81 % dqez=363) LYMPHOCYTES RELATIVE PERCENT (BEAKER) (test 10 % gize=465) MONOCYTES RELATIVE PERCENT (BEAKER) (test 7 % ciug=951) EOSINOPHILS RELATIVE PERCENT (BEAKER) (test 1 % wffb=315) BASOPHILS RELATIVE PERCENT (BEAKER) (test 1 % ocoo=309) NEUTROPHILS ABSOLUTE COUNT (BEAKER) (test 3.25 K/ L 1.56-6.13 ywez=367) LYMPHOCYTES ABSOLUTE COUNT (BEAKER) (test 0.38 K/ L 1.18-3.74 ssdo=077) MONOCYTES ABSOLUTE COUNT (BEAKER) (test 0.28 K/ L 0.24-0.36 ycjw=364) EOSINOPHILS ABSOLUTE COUNT (BEAKER) (test 0.04 K/ L 0.04-0.36 trda=040) BASOPHILS ABSOLUTE COUNT (BEAKER) (test 0.02 K/ L 0.01-0.08 alre=822) IMMATURE GRANULOCYTES-RELATIVE PERCENT (BEAKER) 1 % 0-1 (test wzvr=5264) TROPONIN [id number] 10:14:00 Test Item Value Reference Range Comments TROPONIN I (BEAKER) (test fqqg=593) 0.08 ng/mL 0.00-0.03 Troponin I (TnI) levels [...] acute neurological disease, and persistent tachyarrhythmia.BASIC METABOLIC [id number] 07:57:00 Test Item Value Reference Range Comments SODIUM (BEAKER) (test 128 meq/L 136-145 ifrb=231) POTASSIUM (BEAKER) (test 4.7 meq/L 3.5-5.1 awij=470) CHLORIDE (BEAKER) (test 94 meq/L 98-107 cmvd=994) CO2 (BEAKER) (test 22 meq/L 22-29 kdli=689) BLOOD UREA NITROGEN 49 mg/dL 7-21 (BEAKER) (test vtov=498) CREATININE (BEAKER) (test 4.78 mg/dL 0.57-1.25 dpsz=906) GLUCOSE RANDOM (BEAKER) 88 mg/dL 70-105 (test cbtk=989) CALCIUM (BEAKER) (test 8.4 mg/dL 8.4-10.2 nztv=479) EGFR (BEAKER) (test 10 mL/min/1.73 sq m ESTIMATED GFR IS NOT cmky=5798) ACCURATE CREATININE CLEARANCE IN PREDICTING GLOMERULAR FILTRATION RATE. ESTIMATED GFR IS NOT APPLICABLE FOR DIALYSIS PATIENTS. [id number] 07:41:00 Test Item Value Reference Range Comments PHOSPHORUS (BEAKER) (test kkcb=347) 2.8 mg/dL 2.3-4.7 [id number] 07:41:00 Test Item Value Reference Range Comments MAGNESIUM (BEAKER) (test hdig=575) 1.8 mg/dL 1.6-2.6 CBC W/PLT COUNT & AUTO [id number] 07:25:00 Test Item Value Reference Range Comments WHITE BLOOD CELL COUNT (BEAKER) (test ikwa=724) 2.9 K/ L 3.5-10.5 RED BLOOD CELL COUNT (BEAKER) (test iych=552) 2.89 M/ L 3.93-5.22 HEMOGLOBIN (BEAKER) (test qwcy=646) 9.1 GM/DL 11.2-15.7 HEMATOCRIT (BEAKER) (test danc=179) 29.2 % 34.1-44.9 MEAN CORPUSCULAR VOLUME (BEAKER) (test sfyt=233) 101.0 fL 79.4-94.8 MEAN CORPUSCULAR HEMOGLOBIN (BEAKER) (test 31.5 pg 25.6-32.2 cezg=792) MEAN CORPUSCULAR HEMOGLOBIN CONC (BEAKER) (test 31.2 GM/DL 32.2-35.5 isgx=869) RED CELL DISTRIBUTION WIDTH (BEAKER) (test 18.5 % 11.7-14.4 rfcg=736) PLATELET COUNT (BEAKER) (test iqhx=362) 110 K/CU MM 150-450 MEAN PLATELET VOLUME (BEAKER) (test vjyv=020) 11.3 fL 9.4-12.3 NUCLEATED RED BLOOD CELLS (BEAKER) (test 0 /100 WBC 0-0 ipcj=739) NEUTROPHILS RELATIVE PERCENT (BEAKER) (test 77 % jfvi=158) LYMPHOCYTES RELATIVE PERCENT (BEAKER) (test 12 % ojox=416) MONOCYTES RELATIVE PERCENT (BEAKER) (test 9 % dmfj=820) EOSINOPHILS RELATIVE PERCENT (BEAKER) (test 2 % uncc=648) BASOPHILS RELATIVE PERCENT (BEAKER) (test 0 % dytn=076) NEUTROPHILS ABSOLUTE COUNT (BEAKER) (test 2.20 K/ L 1.56-6.13 bhza=296) LYMPHOCYTES ABSOLUTE COUNT (BEAKER) (test 0.33 K/ L 1.18-3.74 rkzo=178) MONOCYTES ABSOLUTE COUNT (BEAKER) (test 0.26 K/ L 0.24-0.36 dffj=106) EOSINOPHILS ABSOLUTE COUNT (BEAKER) (test 0.05 K/ L 0.04-0.36 rhyp=826) BASOPHILS ABSOLUTE COUNT (BEAKER) (test 0.01 K/ L 0.01-0.08 memg=621) IMMATURE GRANULOCYTES-RELATIVE PERCENT (BEAKER) 0 % 0-1 (test nqqd=2688) CBC W/PLT COUNT & AUTO [id number] 14:22:00 Test Item Value Reference Range Comments WHITE BLOOD CELL COUNT (BEAKER) (test xyfe=046) 2.4 K/ L 3.5-10.5 RED BLOOD CELL COUNT (BEAKER) (test vumd=902) 2.75 M/ L 3.93-5.22 HEMOGLOBIN (BEAKER) (test qpjj=534) 8.8 GM/DL 11.2-15.7 HEMATOCRIT (BEAKER) (test cxqb=289) 27.8 % 34.1-44.9 MEAN CORPUSCULAR VOLUME (BEAKER) (test plgm=633) 101.1 fL 79.4-94.8 MEAN CORPUSCULAR HEMOGLOBIN (BEAKER) (test 32.0 pg 25.6-32.2 ugzm=167) MEAN CORPUSCULAR HEMOGLOBIN CONC (BEAKER) (test 31.7 GM/DL 32.2-35.5 sass=929) RED CELL DISTRIBUTION WIDTH (BEAKER) (test 18.9 % 11.7-14.4 sxvn=608) PLATELET COUNT (BEAKER) (test xfgi=771) 118 K/CU MM 150-450 MEAN PLATELET VOLUME (BEAKER) (test suvf=240) 10.8 fL 9.4-12.3 NUCLEATED RED BLOOD CELLS (BEAKER) (test 0 /100 WBC 0-0 maah=101) NEUTROPHILS RELATIVE PERCENT (BEAKER) (test 78 % vohk=370) LYMPHOCYTES RELATIVE PERCENT (BEAKER) (test 11 % wdqp=172) MONOCYTES RELATIVE PERCENT (BEAKER) (test 8 % lhum=897) EOSINOPHILS RELATIVE PERCENT (BEAKER) (test 2 % uujo=068) BASOPHILS RELATIVE PERCENT (BEAKER) (test 0 % ecbn=315) NEUTROPHILS ABSOLUTE COUNT (BEAKER) (test 1.86 K/ L 1.56-6.13 ogms=028) LYMPHOCYTES ABSOLUTE COUNT (BEAKER) (test 0.27 K/ L 1.18-3.74 amke=446) MONOCYTES ABSOLUTE COUNT (BEAKER) (test 0.19 K/ L 0.24-0.36 ywdr=021) EOSINOPHILS ABSOLUTE COUNT (BEAKER) (test 0.05 K/ L 0.04-0.36 vemz=521) BASOPHILS ABSOLUTE COUNT (BEAKER) (test 0.01 K/ L 0.01-0.08 ludt=563) IMMATURE GRANULOCYTES-RELATIVE PERCENT (BEAKER) 0 % 0-1 (test uudp=6120) BASIC METABOLIC [id number] 07:59:00 Test Item Value Reference Range Comments SODIUM (BEAKER) (test 131 meq/L 136-145 phfy=677) POTASSIUM (BEAKER) (test 4.0 meq/L 3.5-5.1 jzay=175) CHLORIDE (BEAKER) (test 96 meq/L 98-107 sqan=593) CO2 (BEAKER) (test 23 meq/L 22-29 ggvq=602) BLOOD UREA NITROGEN 31 mg/dL 7-21 (BEAKER) (test tzzb=504) CREATININE (BEAKER) (test 3.42 mg/dL 0.57-1.25 uunl=553) GLUCOSE RANDOM (BEAKER) 94 mg/dL 70-105 (test feet=475) CALCIUM (BEAKER) (test 8.8 mg/dL 8.4-10.2 rgiz=882) EGFR (BEAKER) (test 14 mL/min/1.73 sq m ESTIMATED GFR IS NOT deky=1962) ACCURATE CREATININE CLEARANCE IN PREDICTING GLOMERULAR FILTRATION RATE. ESTIMATED GFR IS NOT APPLICABLE FOR DIALYSIS PATIENTS. [id number] 07:53:00 Test Item Value Reference Range Comments PHOSPHORUS (BEAKER) (test ydzi=784) 3.1 mg/dL 2.3-4.7 [id number] 07:53:00 Test Item Value Reference Range Comments MAGNESIUM (BEAKER) (test dpeu=194) 1.8 mg/dL 1.6-2.6 CBC W/PLT COUNT & AUTO [id number] 07:42:00 Test Item Value Reference Range Comments WHITE BLOOD CELL COUNT (BEAKER) (test vyup=424) 2.6 K/ L 3.5-10.5 RED BLOOD CELL COUNT (BEAKER) (test gkvt=036) 2.89 M/ L 3.93-5.22 HEMOGLOBIN (BEAKER) (test ydku=083) 9.0 GM/DL 11.2-15.7 HEMATOCRIT (BEAKER) (test twns=570) 29.1 % 34.1-44.9 MEAN CORPUSCULAR VOLUME (BEAKER) (test tldu=962) 100.7 fL 79.4-94.8 MEAN CORPUSCULAR HEMOGLOBIN (BEAKER) (test 31.1 pg 25.6-32.2 drex=279) MEAN CORPUSCULAR HEMOGLOBIN CONC (BEAKER) (test 30.9 GM/DL 32.2-35.5 hiuc=724) RED CELL DISTRIBUTION WIDTH (BEAKER) (test 18.9 % 11.7-14.4 wkio=122) PLATELET COUNT (BEAKER) (test lhqr=773) 106 K/CU MM 150-450 MEAN PLATELET VOLUME (BEAKER) (test jntp=474) 11.1 fL 9.4-12.3 NUCLEATED RED BLOOD CELLS (BEAKER) (test 0 /100 WBC 0-0 pnar=065) NEUTROPHILS RELATIVE PERCENT (BEAKER) (test 77 % ddpv=997) LYMPHOCYTES RELATIVE PERCENT (BEAKER) (test 10 % syrz=439) MONOCYTES RELATIVE PERCENT (BEAKER) (test 10 % yhcz=589) EOSINOPHILS RELATIVE PERCENT (BEAKER) (test 2 % qcce=294) BASOPHILS RELATIVE PERCENT (BEAKER) (test 1 % hcqo=695) NEUTROPHILS ABSOLUTE COUNT (BEAKER) (test 1.97 K/ L 1.56-6.13 qhsp=105) LYMPHOCYTES ABSOLUTE COUNT (BEAKER) (test 0.25 K/ L 1.18-3.74 iplz=865) MONOCYTES ABSOLUTE COUNT (BEAKER) (test 0.25 K/ L 0.24-0.36 vqky=070) EOSINOPHILS ABSOLUTE COUNT (BEAKER) (test 0.05 K/ L 0.04-0.36 cngc=396) BASOPHILS ABSOLUTE COUNT (BEAKER) (test 0.02 K/ L 0.01-0.08 ydfs=654) IMMATURE GRANULOCYTES-RELATIVE PERCENT (BEAKER) 1 % 0-1 (test ktlp=2137) CBC W/PLT COUNT & AUTO [id number] 05:15:00 Test Item Value Reference Range Comments WHITE BLOOD CELL COUNT (BEAKER) (test ciiz=425) 2.8 K/ L 3.5-10.5 RED BLOOD CELL COUNT (BEAKER) (test urth=879) 2.86 M/ L 3.93-5.22 HEMOGLOBIN (BEAKER) (test bnvo=556) 9.1 GM/DL 11.2-15.7 HEMATOCRIT (BEAKER) (test viim=588) 28.6 % 34.1-44.9 MEAN CORPUSCULAR VOLUME (BEAKER) (test ziqh=251) 100.0 fL 79.4-94.8 MEAN CORPUSCULAR HEMOGLOBIN (BEAKER) (test 31.8 pg 25.6-32.2 vkdc=596) MEAN CORPUSCULAR HEMOGLOBIN CONC (BEAKER) (test 31.8 GM/DL 32.2-35.5 zcdh=025) RED CELL DISTRIBUTION WIDTH (BEAKER) (test 18.8 % 11.7-14.4 jxva=442) PLATELET COUNT (BEAKER) (test juea=842) 80 K/CU MM 150-450 MEAN PLATELET VOLUME (BEAKER) (test iruf=523) 11.2 fL 9.4-12.3 NUCLEATED RED BLOOD CELLS (BEAKER) (test 0 /100 WBC 0-0 oyvr=386) NEUTROPHILS RELATIVE PERCENT (BEAKER) (test 76 % kymi=764) LYMPHOCYTES RELATIVE PERCENT (BEAKER) (test 13 % alof=230) MONOCYTES RELATIVE PERCENT (BEAKER) (test 8 % crob=212) EOSINOPHILS RELATIVE PERCENT (BEAKER) (test 1 % wwpz=376) BASOPHILS RELATIVE PERCENT (BEAKER) (test 0 % pgak=174) NEUTROPHILS ABSOLUTE COUNT (BEAKER) (test 2.13 K/ L 1.56-6.13 ayqk=555) LYMPHOCYTES ABSOLUTE COUNT (BEAKER) (test 0.37 K/ L 1.18-3.74 sgnm=840) MONOCYTES ABSOLUTE COUNT (BEAKER) (test ameu=672) 0.23 K/ L 0.24-0.36 EOSINOPHILS ABSOLUTE COUNT (BEAKER) (test 0.04 K/ L 0.04-0.36 tnfo=968) BASOPHILS ABSOLUTE COUNT (BEAKER) (test apil=238) 0.01 K/ L 0.01-0.08 IMMATURE GRANULOCYTES-RELATIVE PERCENT (BEAKER) 0 % 0-1 (test elms=5055) BASIC METABOLIC [id number] 04:41:00 Test Item Value Reference Range Comments SODIUM (BEAKER) (test 129 meq/L 136-145 nvfh=482) POTASSIUM (BEAKER) (test 5.0 meq/L 3.5-5.1 tjif=490) CHLORIDE (BEAKER) (test 96 meq/L 98-107 khgl=317) CO2 (BEAKER) (test 20 meq/L 22-29 nfef=698) BLOOD UREA NITROGEN 65 mg/dL 7-21 (BEAKER) (test pjuk=112) CREATININE (BEAKER) (test 5.28 mg/dL 0.57-1.25 culm=310) GLUCOSE RANDOM (BEAKER) 101 mg/dL 70-105 (test idky=628) CALCIUM (BEAKER) (test 9.0 mg/dL 8.4-10.2 qyau=632) EGFR (BEAKER) (test 9 mL/min/1.73 sq m ESTIMATED GFR IS NOT jwno=6544) ACCURATE CREATININE CLEARANCE IN PREDICTING GLOMERULAR FILTRATION RATE. ESTIMATED GFR IS NOT APPLICABLE FOR DIALYSIS PATIENTS. [id number] 04:39:00 Test Item Value Reference Range Comments PHOSPHORUS (BEAKER) (test vweu=307) 3.4 mg/dL 2.3-4.7 [id number] 04:39:00 Test Item Value Reference Range Comments MAGNESIUM (BEAKER) (test hfjf=590) 2.0 mg/dL 1.6-2.6 [id number] 23:54:00 Test Item Value Reference Range Comments HAPTOGLOBIN (BEAKER) (test juog=791) < mg/dL 14-258 CBC W/PLT COUNT & AUTO [id number] 23:39:00 Test Item Value Reference Range Comments WHITE BLOOD CELL COUNT (BEAKER) (test xqgm=405) 3.3 K/ L 3.5-10.5 RED BLOOD CELL COUNT (BEAKER) (test fegv=883) 3.06 M/ L 3.93-5.22 HEMOGLOBIN (BEAKER) (test yedc=928) 9.6 GM/DL 11.2-15.7 HEMATOCRIT (BEAKER) (test xfss=437) 30.3 % 34.1-44.9 MEAN CORPUSCULAR VOLUME (BEAKER) (test dotc=372) 99.0 fL 79.4-94.8 MEAN CORPUSCULAR HEMOGLOBIN (BEAKER) (test 31.4 pg 25.6-32.2 bbpe=690) MEAN CORPUSCULAR HEMOGLOBIN CONC (BEAKER) (test 31.7 GM/DL 32.2-35.5 ibom=870) RED CELL DISTRIBUTION WIDTH (BEAKER) (test 18.8 % 11.7-14.4 pvki=140) PLATELET COUNT (BEAKER) (test lxyh=452) 98 K/CU MM 150-450 MEAN PLATELET VOLUME (BEAKER) (test evfo=819) 11.5 fL 9.4-12.3 NUCLEATED RED BLOOD CELLS (BEAKER) (test 0 /100 WBC 0-0 sbld=787) NEUTROPHILS RELATIVE PERCENT (BEAKER) (test 79 % wxxd=691) LYMPHOCYTES RELATIVE PERCENT (BEAKER) (test 12 % pgwb=330) MONOCYTES RELATIVE PERCENT (BEAKER) (test 7 % odof=200) EOSINOPHILS RELATIVE PERCENT (BEAKER) (test 1 % bsbo=703) BASOPHILS RELATIVE PERCENT (BEAKER) (test 1 % vsfo=573) NEUTROPHILS ABSOLUTE COUNT (BEAKER) (test 2.64 K/ L 1.56-6.13 tfxl=030) LYMPHOCYTES ABSOLUTE COUNT (BEAKER) (test 0.40 K/ L 1.18-3.74 jevo=892) MONOCYTES ABSOLUTE COUNT (BEAKER) (test rora=583) 0.22 K/ L 0.24-0.36 EOSINOPHILS ABSOLUTE COUNT (BEAKER) (test 0.04 K/ L 0.04-0.36 vutq=176) BASOPHILS ABSOLUTE COUNT (BEAKER) (test gzqj=530) 0.02 K/ L 0.01-0.08 IMMATURE GRANULOCYTES-RELATIVE PERCENT (BEAKER) 0 % 0-1 (test adoq=4335) HEPATITIS B SURFACE [id number] 21:44:00 Test Item Value Reference Range Comments HEPATITIS B SURFACE ANTIGEN (2) (BEAKER) (test Nonreactive Nonreactive ytlj=3096) CBC W/PLT COUNT & AUTO [id number] 21:03:00 Test Item Value Reference Range Comments WHITE BLOOD CELL COUNT (BEAKER) (test gosh=615) 3.3 K/ L 3.5-10.5 RED BLOOD CELL COUNT (BEAKER) (test keut=395) 2.96 M/ L 3.93-5.22 HEMOGLOBIN (BEAKER) (test gsik=579) 9.4 GM/DL 11.2-15.7 HEMATOCRIT (BEAKER) (test xkyo=832) 29.7 % 34.1-44.9 MEAN CORPUSCULAR VOLUME (BEAKER) (test gtdj=353) 100.3 fL 79.4-94.8 MEAN CORPUSCULAR HEMOGLOBIN (BEAKER) (test 31.8 pg 25.6-32.2 plcs=182) MEAN CORPUSCULAR HEMOGLOBIN CONC (BEAKER) (test 31.6 GM/DL 32.2-35.5 rexp=406) RED CELL DISTRIBUTION WIDTH (BEAKER) (test 19.0 % 11.7-14.4 ahru=789) PLATELET COUNT (BEAKER) (test lusj=494) 100 K/CU MM 150-450 MEAN PLATELET VOLUME (BEAKER) (test zavg=540) 10.2 fL 9.4-12.3 NUCLEATED RED BLOOD CELLS (BEAKER) (test 0 /100 WBC 0-0 lmde=379) NEUTROPHILS RELATIVE PERCENT (BEAKER) (test 80 % jncv=517) LYMPHOCYTES RELATIVE PERCENT (BEAKER) (test 10 % ikbh=052) MONOCYTES RELATIVE PERCENT (BEAKER) (test 8 % fvsd=836) EOSINOPHILS RELATIVE PERCENT (BEAKER) (test 1 % qylw=463) BASOPHILS RELATIVE PERCENT (BEAKER) (test 0 % alcp=001) NEUTROPHILS ABSOLUTE COUNT (BEAKER) (test 2.59 K/ L 1.56-6.13 akez=543) LYMPHOCYTES ABSOLUTE COUNT (BEAKER) (test 0.33 K/ L 1.18-3.74 ozoi=040) MONOCYTES ABSOLUTE COUNT (BEAKER) (test 0.26 K/ L 0.24-0.36 gawh=393) EOSINOPHILS ABSOLUTE COUNT (BEAKER) (test 0.04 K/ L 0.04-0.36 jkmy=462) BASOPHILS ABSOLUTE COUNT (BEAKER) (test 0.01 K/ L 0.01-0.08 rnld=039) IMMATURE GRANULOCYTES-RELATIVE PERCENT (BEAKER) 1 % 0-1 (test obnq=4446) PERIPHERAL BLOOD SMEAR - HOLD [id number] 16:54:00 Test Item Value Reference Range Comments PERIPHERAL SMEAR SAVE (BEAKER) (test xfmm=6409) saved LACTATE DEHYDROGENASE (LDH)[id number] 16:40:00 Test Item Value Reference Range Comments LACTATE DEHYDROGENASE (BEAKER) (test ichh=328) 332 U/L 125-220 CBC W/PLT COUNT & AUTO [id number] 16:27:00 Test Item Value Reference Range Comments WHITE BLOOD CELL COUNT (BEAKER) (test upae=168) 2.7 K/ L 3.5-10.5 RED BLOOD CELL COUNT (BEAKER) (test liqa=818) 3.15 M/ L 3.93-5.22 HEMOGLOBIN (BEAKER) (test dmlj=817) 10.0 GM/DL 11.2-15.7 HEMATOCRIT (BEAKER) (test ecxz=263) 31.5 % 34.1-44.9 MEAN CORPUSCULAR VOLUME (BEAKER) (test rqyt=809) 100.0 fL 79.4-94.8 MEAN CORPUSCULAR HEMOGLOBIN (BEAKER) (test 31.7 pg 25.6-32.2 wgyv=549) MEAN CORPUSCULAR HEMOGLOBIN CONC (BEAKER) (test 31.7 GM/DL 32.2-35.5 ifvo=414) RED CELL DISTRIBUTION WIDTH (BEAKER) (test 19.0 % 11.7-14.4 rpnz=167) PLATELET COUNT (BEAKER) (test fxtj=763) 96 K/CU MM 150-450 MEAN PLATELET VOLUME (BEAKER) (test kyai=298) 9.8 fL 9.4-12.3 NUCLEATED RED BLOOD CELLS (BEAKER) (test 0 /100 WBC 0-0 scbj=226) NEUTROPHILS RELATIVE PERCENT (BEAKER) (test 76 % elyq=921) LYMPHOCYTES RELATIVE PERCENT (BEAKER) (test 12 % xaco=050) MONOCYTES RELATIVE PERCENT (BEAKER) (test 10 % yudx=022) EOSINOPHILS RELATIVE PERCENT (BEAKER) (test 1 % zmmx=970) BASOPHILS RELATIVE PERCENT (BEAKER) (test 1 % bnuz=016) NEUTROPHILS ABSOLUTE COUNT (BEAKER) (test 2.02 K/ L 1.56-6.13 snqu=285) LYMPHOCYTES ABSOLUTE COUNT (BEAKER) (test 0.31 K/ L 1.18-3.74 itxe=599) MONOCYTES ABSOLUTE COUNT (BEAKER) (test socc=432) 0.27 K/ L 0.24-0.36 EOSINOPHILS ABSOLUTE COUNT (BEAKER) (test 0.03 K/ L 0.04-0.36 oafp=877) BASOPHILS ABSOLUTE COUNT (BEAKER) (test zclv=130) 0.02 K/ L 0.01-0.08 IMMATURE GRANULOCYTES-RELATIVE PERCENT (BEAKER) 1 % 0-1 (test xkbu=5561) [id number] 07:39:00 Test Item Value Reference Range Comments PHOSPHORUS (BEAKER) (test good=306) 3.1 mg/dL 2.3-4.7 [id number] 07:39:00 Test Item Value Reference Range Comments MAGNESIUM (BEAKER) (test zewc=496) 2.0 mg/dL 1.6-2.6 BASIC METABOLIC [id number] 07:39:00 Test Item Value Reference Range Comments SODIUM (BEAKER) (test 132 meq/L 136-145 azpy=051) POTASSIUM (BEAKER) (test 4.2 meq/L 3.5-5.1 mxby=890) CHLORIDE (BEAKER) (test 97 meq/L 98-107 qybj=667) CO2 (BEAKER) (test 23 meq/L 22-29 arzv=547) BLOOD UREA NITROGEN 42 mg/dL 7-21 (BEAKER) (test zwwu=072) CREATININE (BEAKER) (test 3.49 mg/dL 0.57-1.25 evyd=068) GLUCOSE RANDOM (BEAKER) 84 mg/dL 70-105 (test liti=829) CALCIUM (BEAKER) (test 9.0 mg/dL 8.4-10.2 cpat=293) EGFR (BEAKER) (test 14 mL/min/1.73 sq m ESTIMATED GFR IS NOT efmb=1563) ACCURATE CREATININE CLEARANCE IN PREDICTING GLOMERULAR FILTRATION RATE. ESTIMATED GFR IS NOT APPLICABLE FOR DIALYSIS PATIENTS. CBC W/PLT COUNT & AUTO [id number] 07:24:00 Test Item Value Reference Range Comments WHITE BLOOD CELL COUNT (BEAKER) (test jjcf=155) 2.8 K/ L 3.5-10.5 RED BLOOD CELL COUNT (BEAKER) (test vkjj=943) 2.96 M/ L 3.93-5.22 HEMOGLOBIN (BEAKER) (test qaop=996) 9.5 GM/DL 11.2-15.7 HEMATOCRIT (BEAKER) (test zdrp=087) 29.8 % 34.1-44.9 MEAN CORPUSCULAR VOLUME (BEAKER) (test olqa=843) 100.7 fL 79.4-94.8 MEAN CORPUSCULAR HEMOGLOBIN (BEAKER) (test 32.1 pg 25.6-32.2 trgi=004) MEAN CORPUSCULAR HEMOGLOBIN CONC (BEAKER) (test 31.9 GM/DL 32.2-35.5 rfqe=115) RED CELL DISTRIBUTION WIDTH (BEAKER) (test 19.3 % 11.7-14.4 ldpe=431) PLATELET COUNT (BEAKER) (test kyqw=087) 95 K/CU MM 150-450 MEAN PLATELET VOLUME (BEAKER) (test zthp=391) 11.3 fL 9.4-12.3 NUCLEATED RED BLOOD CELLS (BEAKER) (test 0 /100 WBC 0-0 myss=543) NEUTROPHILS RELATIVE PERCENT (BEAKER) (test 77 % xnls=171) LYMPHOCYTES RELATIVE PERCENT (BEAKER) (test 12 % ajdb=740) MONOCYTES RELATIVE PERCENT (BEAKER) (test 9 % pvkq=380) EOSINOPHILS RELATIVE PERCENT (BEAKER) (test 1 % sgsw=253) BASOPHILS RELATIVE PERCENT (BEAKER) (test 0 % vylw=635) NEUTROPHILS ABSOLUTE COUNT (BEAKER) (test 2.16 K/ L 1.56-6.13 ihtu=779) LYMPHOCYTES ABSOLUTE COUNT (BEAKER) (test 0.32 K/ L 1.18-3.74 nbpi=580) MONOCYTES ABSOLUTE COUNT (BEAKER) (test rndz=188) 0.26 K/ L 0.24-0.36 EOSINOPHILS ABSOLUTE COUNT (BEAKER) (test 0.03 K/ L 0.04-0.36 gufe=256) BASOPHILS ABSOLUTE COUNT (BEAKER) (test pzpd=706) 0.01 K/ L 0.01-0.08 IMMATURE GRANULOCYTES-RELATIVE PERCENT (BEAKER) 0 % 0-1 (test znam=2880) BLOOD [id number] 06:00:00 Test Item Value Reference Range Comments CULTURE (BEAKER) (test bemh=4282) No growth in 5 days ANG, CV ACCESS, [id number] 17:46:00Reason for exam:->TDC placement for outpatient HDFINAL REPORT Tunneled dialysis catheter insertion. History: Renal failure. Modality: Sonography and fluoroscopy. Sedation: Versed 0.5 mg and fentanyl 25 mcg was given intravenously for conscious sedation. Vital signs were monitored throughout the procedure by a nurse, and remained stable. Physician intra-service time was 15 minutes. Cooler Room Worker: Lynette. Gas Blender: None. Approach: Right internal jugular vein Estimatedblood [...] needle into the right atrium. A 4 Panamanian micropuncture sheath was placed. A subcutaneous tunnel was created in the right anterior chest wall by blunt dissection. A 19 cm 15.5 Pan[place]ian [place] 2catheter was brought through the tunnel. [...] Funkort Verified Date/Time: 04/01/2018 17:46:56 Reading Location: [facility] B1 P048 Angio Body Reading Room TISSUE [id number] 11:52:00Surgical Pathology Report Case: [id number] Authorizing Provider: Michelle Ram MD Collected: 03/24/2018 1253 Ordering Location: [address] Received: 03/24/2018 1254 Service Pathologist: Dennise Jo MD Specimen: Kidney, Left, Left kidney needle biopsy KIDNEY, LEFT, NEEDLE BIOPSIES- ACUTE THROMBOTIC MICROANGIOPATHY- MODERATE INTERSTITIAL FIBROSIS AND TUBULAR ATROPHY ( ~40%) Signing Pathologist Direct Phone Line: [phone] signed by Dennise Jo MD on 03/31/2018 [...] Dr. Vital on 03/25/2018 at 10.15 am. 31486, 11822 X3, [id number], [id number] x8, [id number] renal failure evaluationNative left kidney biopsyThe specimen [...] with extensive effacement of foot processes.BASIC METABOLIC [id number] 06:14:00 Test Item Value Reference Range Comments SODIUM (BEAKER) (test 133 meq/L 136-145 lfrw=711) POTASSIUM (BEAKER) (test 4.6 meq/L 3.5-5.1 otsm=449) CHLORIDE (BEAKER) (test 99 meq/L 98-107 oxsb=297) CO2 (BEAKER) (test 24 meq/L 22-29 zxez=994) BLOOD UREA NITROGEN 45 mg/dL 7-21 (BEAKER) (test nfrl=928) CREATININE (BEAKER) (test 4.49 mg/dL 0.57-1.25 hufp=715) GLUCOSE RANDOM (BEAKER) 95 mg/dL 70-105 (test rimw=170) CALCIUM (BEAKER) (test 8.1 mg/dL 8.4-10.2 hiea=835) EGFR (BEAKER) (test 10 mL/min/1.73 sq m ESTIMATED GFR IS NOT jfwj=6936) ACCURATE CREATININE CLEARANCE IN PREDICTING GLOMERULAR FILTRATION RATE. ESTIMATED GFR IS NOT APPLICABLE FOR DIALYSIS PATIENTS. [id number] 06:05:00 Test Item Value Reference Range Comments MAGNESIUM (BEAKER) (test ignc=835) 1.9 mg/dL 1.6-2.6 CBC W/PLT COUNT & AUTO [id number] 05:20:00 Test Item Value Reference Range Comments WHITE BLOOD CELL COUNT (BEAKER) (test dngp=387) 4.1 K/ L 3.5-10.5 RED BLOOD CELL COUNT (BEAKER) (test esbe=200) 2.55 M/ L 3.93-5.22 HEMOGLOBIN (BEAKER) (test avpr=807) 8.0 GM/DL 11.2-15.7 HEMATOCRIT (BEAKER) (test fquz=321) 26.0 % 34.1-44.9 MEAN CORPUSCULAR VOLUME (BEAKER) (test xvna=620) 102.0 fL 79.4-94.8 MEAN CORPUSCULAR HEMOGLOBIN (BEAKER) (test 31.4 pg 25.6-32.2 mbfa=766) MEAN CORPUSCULAR HEMOGLOBIN CONC (BEAKER) (test 30.8 GM/DL 32.2-35.5 xbcf=047) RED CELL DISTRIBUTION WIDTH (BEAKER) (test 18.9 % 11.7-14.4 arxo=122) PLATELET COUNT (BEAKER) (test somn=626) 54 K/CU MM 150-450 MEAN PLATELET VOLUME (BEAKER) (test vwqw=605) 12.9 fL 9.4-12.3 NUCLEATED RED BLOOD CELLS (BEAKER) (test 0 /100 WBC 0-0 wayf=471) NEUTROPHILS RELATIVE PERCENT (BEAKER) (test 84 % oiuk=425) LYMPHOCYTES RELATIVE PERCENT (BEAKER) (test 8 % aziz=956) MONOCYTES RELATIVE PERCENT (BEAKER) (test 7 % wnik=509) EOSINOPHILS RELATIVE PERCENT (BEAKER) (test 1 % cvff=455) BASOPHILS RELATIVE PERCENT (BEAKER) (test 0 % ssbt=010) NEUTROPHILS ABSOLUTE COUNT (BEAKER) (test 3.45 K/ L 1.56-6.13 nvcw=084) LYMPHOCYTES ABSOLUTE COUNT (BEAKER) (test 0.33 K/ L 1.18-3.74 whtd=644) MONOCYTES ABSOLUTE COUNT (BEAKER) (test zzzq=637) 0.28 K/ L 0.24-0.36 EOSINOPHILS ABSOLUTE COUNT (BEAKER) (test 0.03 K/ L 0.04-0.36 zsdo=614) BASOPHILS ABSOLUTE COUNT (BEAKER) (test unvh=653) 0.01 K/ L 0.01-0.08 IMMATURE GRANULOCYTES-RELATIVE PERCENT (BEAKER) 1 % 0-1 (test qial=3454) POCT-GLUCOSE [id number] 18:43:00 Test Item Value Reference Range Comments POC-GLUCOSE METER (BEAKER) 121 mg/dL 70-110 TESTED AT [address] (test jwsd=6153) [facility] [address] BASIC METABOLIC [id number] 06:46:00 Test Item Value Reference Range Comments SODIUM (BEAKER) (test 133 meq/L 136-145 gvfw=385) POTASSIUM (BEAKER) (test 4.1 meq/L 3.5-5.1 zfyt=328) CHLORIDE (BEAKER) (test 98 meq/L 98-107 nhav=139) CO2 (BEAKER) (test 25 meq/L 22-29 uafv=116) BLOOD UREA NITROGEN 27 mg/dL 7-21 (BEAKER) (test pwsa=773) CREATININE (BEAKER) (test 2.91 mg/dL 0.57-1.25 wlmc=266) GLUCOSE RANDOM (BEAKER) 92 mg/dL 70-105 (test savn=485) CALCIUM (BEAKER) (test 8.3 mg/dL 8.4-10.2 jtje=270) EGFR (BEAKER) (test 17 mL/min/1.73 sq m ESTIMATED GFR IS NOT jyru=8704) ACCURATE CREATININE CLEARANCE IN PREDICTING GLOMERULAR FILTRATION RATE. ESTIMATED GFR IS NOT APPLICABLE FOR DIALYSIS PATIENTS. [id number] 06:34:00 Test Item Value Reference Range Comments MAGNESIUM (BEAKER) (test irix=008) 1.9 mg/dL 1.6-2.6 [id number] 06:13:00 Test Item Value Reference Range Comments PROTIME (BEAKER) (test ebti=217) 16.7 seconds 11.7-14.7 INR (BEAKER) (test wlyu=245) 1.4 <=5.9 PARTIAL THROMBOPLASTIN TIME (BEAKER) (test 39.8 seconds 22.5-36.0 wfay=368) RECOMMENDED COUMADIN/WARFARIN INR THERAPY RANGESSTANDARD DOSE: 2.0 - 3.0 Includes: PROPHYLAXIS forvenous thrombosis, systemic embolization; TREATMENT for venous thrombosis and/or pulmonary embolus.HIGH RISK: Target INR is 2.5-3.5 for patients with mechanical heart valves.CBC W/PLT COUNT & AUTO [id number] 06:11:00 Test Item Value Reference Range Comments WHITE BLOOD CELL COUNT (BEAKER) (test rzzb=758) 3.2 K/ L 3.5-10.5 RED BLOOD CELL COUNT (BEAKER) (test kqnq=818) 2.51 M/ L 3.93-5.22 HEMOGLOBIN (BEAKER) (test ofqb=291) 8.0 GM/DL 11.2-15.7 HEMATOCRIT (BEAKER) (test itow=473) 25.7 % 34.1-44.9 MEAN CORPUSCULAR VOLUME (BEAKER) (test bvvk=320) 102.4 fL 79.4-94.8 MEAN CORPUSCULAR HEMOGLOBIN (BEAKER) (test 31.9 pg 25.6-32.2 fakj=993) MEAN CORPUSCULAR HEMOGLOBIN CONC (BEAKER) (test 31.1 GM/DL 32.2-35.5 gcki=376) RED CELL DISTRIBUTION WIDTH (BEAKER) (test 19.3 % 11.7-14.4 tbco=778) PLATELET COUNT (BEAKER) (test adgb=333) 49 K/CU MM 150-450 MEAN PLATELET VOLUME (BEAKER) (test oeyp=741) 12.6 fL 9.4-12.3 NUCLEATED RED BLOOD CELLS (BEAKER) (test 0 /100 WBC 0-0 xpuu=375) NEUTROPHILS RELATIVE PERCENT (BEAKER) (test 82 % oxvg=727) LYMPHOCYTES RELATIVE PERCENT (BEAKER) (test 9 % qhoc=255) MONOCYTES RELATIVE PERCENT (BEAKER) (test 9 % quuj=490) EOSINOPHILS RELATIVE PERCENT (BEAKER) (test 0 % kqbk=287) BASOPHILS RELATIVE PERCENT (BEAKER) (test 0 % mhvb=188) NEUTROPHILS ABSOLUTE COUNT (BEAKER) (test 2.60 K/ L 1.56-6.13 hjrd=578) LYMPHOCYTES ABSOLUTE COUNT (BEAKER) (test 0.29 K/ L 1.18-3.74 kfrl=593) MONOCYTES ABSOLUTE COUNT (BEAKER) (test ildn=160) 0.27 K/ L 0.24-0.36 EOSINOPHILS ABSOLUTE COUNT (BEAKER) (test 0.00 K/ L 0.04-0.36 aytt=291) BASOPHILS ABSOLUTE COUNT (BEAKER) (test gmpd=218) 0.01 K/ L 0.01-0.08 IMMATURE GRANULOCYTES-RELATIVE PERCENT (BEAKER) 0 % 0-1 (test bkft=0279) BASIC METABOLIC [id number] 07:21:00 Test Item Value Reference Range Comments SODIUM (BEAKER) (test 135 meq/L 136-145 qrpc=915) POTASSIUM (BEAKER) (test 4.1 meq/L 3.5-5.1 cpnh=030) CHLORIDE (BEAKER) (test 102 meq/L 98-107 xhqt=449) CO2 (BEAKER) (test 24 meq/L 22-29 ymia=692) BLOOD UREA NITROGEN 45 mg/dL 7-21 (BEAKER) (test sxro=023) CREATININE (BEAKER) (test 4.55 mg/dL 0.57-1.25 wirw=255) GLUCOSE RANDOM (BEAKER) 106 mg/dL 70-105 (test scfl=109) CALCIUM (BEAKER) (test 7.8 mg/dL 8.4-10.2 rody=343) EGFR (BEAKER) (test 10 mL/min/1.73 sq m ESTIMATED GFR IS NOT cmoa=6036) ACCURATE CREATININE CLEARANCE IN PREDICTING GLOMERULAR FILTRATION RATE. ESTIMATED GFR IS NOT APPLICABLE FOR DIALYSIS PATIENTS. [id number] 07:08:00 Test Item Value Reference Range Comments MAGNESIUM (BEAKER) (test nvkv=214) 1.8 mg/dL 1.6-2.6 CBC W/PLT COUNT & AUTO [id number] 06:53:00 Test Item Value Reference Range Comments WHITE BLOOD CELL COUNT (BEAKER) (test vfdg=111) 2.9 K/ L 3.5-10.5 RED BLOOD CELL COUNT (BEAKER) (test odic=531) 2.45 M/ L 3.93-5.22 HEMOGLOBIN (BEAKER) (test neyt=620) 8.0 GM/DL 11.2-15.7 HEMATOCRIT (BEAKER) (test ymwx=119) 25.1 % 34.1-44.9 MEAN CORPUSCULAR VOLUME (BEAKER) (test zuuo=648) 102.4 fL 79.4-94.8 MEAN CORPUSCULAR HEMOGLOBIN (BEAKER) (test 32.7 pg 25.6-32.2 cmqv=826) MEAN CORPUSCULAR HEMOGLOBIN CONC (BEAKER) (test 31.9 GM/DL 32.2-35.5 aguh=534) RED CELL DISTRIBUTION WIDTH (BEAKER) (test 19.7 % 11.7-14.4 aezr=599) PLATELET COUNT (BEAKER) (test dimj=111) 41 K/CU MM 150-450 MEAN PLATELET VOLUME (BEAKER) (test tgqk=444) 11.7 fL 9.4-12.3 NUCLEATED RED BLOOD CELLS (BEAKER) (test 0 /100 WBC 0-0 ihvf=069) NEUTROPHILS RELATIVE PERCENT (BEAKER) (test 75 % xbst=326) LYMPHOCYTES RELATIVE PERCENT (BEAKER) (test 13 % hfnl=238) MONOCYTES RELATIVE PERCENT (BEAKER) (test 11 % zimw=707) EOSINOPHILS RELATIVE PERCENT (BEAKER) (test 0 % xoif=326) BASOPHILS RELATIVE PERCENT (BEAKER) (test 0 % irew=857) NEUTROPHILS ABSOLUTE COUNT (BEAKER) (test 2.13 K/ L 1.56-6.13 sdbe=649) LYMPHOCYTES ABSOLUTE COUNT (BEAKER) (test 0.38 K/ L 1.18-3.74 qufw=018) MONOCYTES ABSOLUTE COUNT (BEAKER) (test utmp=378) 0.32 K/ L 0.24-0.36 EOSINOPHILS ABSOLUTE COUNT (BEAKER) (test 0.01 K/ L 0.04-0.36 irrw=293) BASOPHILS ABSOLUTE COUNT (BEAKER) (test ixoq=631) 0.01 K/ L 0.01-0.08 IMMATURE GRANULOCYTES-RELATIVE PERCENT (BEAKER) 0 % 0-1 (test szfi=3492) RAD, CHEST, 1 VIEW, NON [id number] 22:19:00Reason for exam:-> pneumoniaShould this be performed [...] MDReport Verified Date/Time: 03/28/2018 22:19:58 Reading Location: [address] Reading Room [id number] 05:56: 00 Test Item Value Reference Range Comments MAGNESIUM (BEAKER) (test lnxo=636) 1.9 mg/dL 1.6-2.6 COMPREHENSIVE METABOLIC [id number] 03:24:00 Test Item Value Reference Range Comments TOTAL PROTEIN (BEAKER) 5.9 gm/dL 6.0-8.3 (test xjdp=767) ALBUMIN (BEAKER) (test 2.5 g/dL 3.5-5.0 uwaa=3303) ALKALINE PHOSPHATASE 42 U/L 40-150 (BEAKER) (test wskk=131) BILIRUBIN TOTAL (BEAKER) 1.0 mg/dL 0.2-1.2 (test qoze=477) SODIUM (BEAKER) (test 135 meq/L 136-145 jvfb=725) POTASSIUM (BEAKER) (test 4.1 meq/L 3.5-5.1 ypib=105) CHLORIDE (BEAKER) (test 102 meq/L 98-107 ntkh=605) CO2 (BEAKER) (test 26 meq/L 22-29 wzab=282) BLOOD UREA NITROGEN 24 mg/dL 7-21 (BEAKER) (test yfxh=117) CREATININE (BEAKER) (test 3.02 mg/dL 0.57-1.25 opld=770) GLUCOSE RANDOM (BEAKER) 121 mg/dL 70-105 (test vgza=693) CALCIUM (BEAKER) (test 8.2 mg/dL 8.4-10.2 fchy=220) AST (SGOT) (BEAKER) (test 35 U/L 5-34 gczt=255) ALT (SGPT) (BEAKER) (test 13 U/L 6-55 uqok=349) EGFR (BEAKER) (test 16 mL/min/1.73 sq m ESTIMATED GFR IS NOT ijnr=3650) ACCURATE CREATININE CLEARANCE IN PREDICTING GLOMERULAR FILTRATION RATE. ESTIMATED GFR IS NOT APPLICABLE FOR DIALYSIS PATIENTS. LACTIC ACID, VENOUS, WHOLE [id number] 03:15:00 Test Item Value Reference Range Comments LACTATE BLOOD VENOUS (2) (BEAKER) (test 1.1 mmol/L 0.5-2.2 pcfy=6712) Effective 11/28/2015: Units/Reference Range ChangeNew: 0.5-2.2 mmol/L Previous: 5 -20 mg/dLCBC W/PLT COUNT & AUTO [id number] 02:57:00 Test Item Value Reference Range Comments WHITE BLOOD CELL COUNT (BEAKER) (test whxa=371) 2.7 K/ L 3.5-10.5 RED BLOOD CELL COUNT (BEAKER) (test ynli=174) 2.45 M/ L 3.93-5.22 HEMOGLOBIN (BEAKER) (test tcod=432) 8.0 GM/DL 11.2-15.7 HEMATOCRIT (BEAKER) (test gewn=078) 24.9 % 34.1-44.9 MEAN CORPUSCULAR VOLUME (BEAKER) (test lbih=395) 101.6 fL 79.4-94.8 MEAN CORPUSCULAR HEMOGLOBIN (BEAKER) (test 32.7 pg 25.6-32.2 plma=249) MEAN CORPUSCULAR HEMOGLOBIN CONC (BEAKER) (test 32.1 GM/DL 32.2-35.5 sorv=602) RED CELL DISTRIBUTION WIDTH (BEAKER) (test 20.7 % 11.7-14.4 yijb=689) PLATELET COUNT (BEAKER) (test khbf=910) 44 K/CU MM 150-450 MEAN PLATELET VOLUME (BEAKER) (test omtv=254) 11.9 fL 9.4-12.3 NUCLEATED RED BLOOD CELLS (BEAKER) (test 0 /100 WBC 0-0 ndfz=753) NEUTROPHILS RELATIVE PERCENT (BEAKER) (test 75 % xtrv=915) LYMPHOCYTES RELATIVE PERCENT (BEAKER) (test 12 % zutt=683) MONOCYTES RELATIVE PERCENT (BEAKER) (test 12 % wmzu=751) EOSINOPHILS RELATIVE PERCENT (BEAKER) (test 0 % zylo=761) BASOPHILS RELATIVE PERCENT (BEAKER) (test 0 % qikt=279) NEUTROPHILS ABSOLUTE COUNT (BEAKER) (test 2.05 K/ L 1.56-6.13 uybp=242) LYMPHOCYTES ABSOLUTE COUNT (BEAKER) (test 0.32 K/ L 1.18-3.74 hept=406) MONOCYTES ABSOLUTE COUNT (BEAKER) (test xbhl=021) 0.34 K/ L 0.24-0.36 EOSINOPHILS ABSOLUTE COUNT (BEAKER) (test 0.01 K/ L 0.04-0.36 fnur=249) BASOPHILS ABSOLUTE COUNT (BEAKER) (test tnlm=903) 0.01 K/ L 0.01-0.08 IMMATURE GRANULOCYTES-RELATIVE PERCENT (BEAKER) 0 % 0-1 (test enmz=0913) POCT-GLUCOSE [id number] 02:55:00 Test Item Value Reference Range Comments POC-GLUCOSE METER (BEAKER) 148 mg/dL 70-110 TESTED AT [facility] [address] [facility] (test htwa=6531) [facility] [address] BASIC METABOLIC [id number] 06:29:00 Test Item Value Reference Range Comments SODIUM (BEAKER) (test 129 meq/L 136-145 ckcw=181) POTASSIUM (BEAKER) (test 3.5 meq/L 3.5-5.1 thui=346) CHLORIDE (BEAKER) (test 97 meq/L 98-107 futi=689) CO2 (BEAKER) (test 25 meq/L 22-29 bgvl=624) BLOOD UREA NITROGEN 44 mg/dL 7-21 (BEAKER) (test qhbf=046) CREATININE (BEAKER) (test 4.23 mg/dL 0.57-1.25 gbsy=785) GLUCOSE RANDOM (BEAKER) 118 mg/dL 70-105 (test spld=903) CALCIUM (BEAKER) (test 7.0 mg/dL 8.4-10.2 yacr=988) EGFR (BEAKER) (test 11 mL/min/1.73 sq m ESTIMATED GFR IS NOT xykp=4779) ACCURATE CREATININE CLEARANCE IN PREDICTING GLOMERULAR FILTRATION RATE. ESTIMATED GFR IS NOT APPLICABLE FOR DIALYSIS PATIENTS. [id number] 06:27:00 Test Item Value Reference Range Comments MAGNESIUM (BEAKER) (test tgvr=637) 1.8 mg/dL 1.6-2.6 CBC W/PLT COUNT & AUTO [id number] 06:09:00 Test Item Value Reference Range Comments WHITE BLOOD CELL COUNT (BEAKER) (test apjp=325) 3.1 K/ L 3.5-10.5 RED BLOOD CELL COUNT (BEAKER) (test btlx=295) 1.93 M/ L 3.93-5.22 HEMOGLOBIN (BEAKER) (test jqcp=444) 6.4 GM/DL 11.2-15.7 HEMATOCRIT (BEAKER) (test hhvw=260) 20.6 % 34.1-44.9 MEAN CORPUSCULAR VOLUME (BEAKER) (test terv=749) 106.7 fL 79.4-94.8 MEAN CORPUSCULAR HEMOGLOBIN (BEAKER) (test 33.2 pg 25.6-32.2 zsmd=138) MEAN CORPUSCULAR HEMOGLOBIN CONC (BEAKER) (test 31.1 GM/DL 32.2-35.5 ayrm=480) RED CELL DISTRIBUTION WIDTH (BEAKER) (test 20.5 % 11.7-14.4 cebi=607) PLATELET COUNT (BEAKER) (test tjqf=550) 48 K/CU MM 150-450 MEAN PLATELET VOLUME (BEAKER) (test xotm=570) 12.1 fL 9.4-12.3 NUCLEATED RED BLOOD CELLS (BEAKER) (test 0 /100 WBC 0-0 qlxb=043) NEUTROPHILS RELATIVE PERCENT (BEAKER) (test 77 % aftz=073) LYMPHOCYTES RELATIVE PERCENT (BEAKER) (test 9 % ovwg=298) MONOCYTES RELATIVE PERCENT (BEAKER) (test 13 % ecff=228) EOSINOPHILS RELATIVE PERCENT (BEAKER) (test 0 % fnmj=543) BASOPHILS RELATIVE PERCENT (BEAKER) (test 0 % pdvl=842) NEUTROPHILS ABSOLUTE COUNT (BEAKER) (test 2.42 K/ L 1.56-6.13 djli=158) LYMPHOCYTES ABSOLUTE COUNT (BEAKER) (test 0.27 K/ L 1.18-3.74 hoir=208) MONOCYTES ABSOLUTE COUNT (BEAKER) (test wyjc=487) 0.39 K/ L 0.24-0.36 EOSINOPHILS ABSOLUTE COUNT (BEAKER) (test 0.01 K/ L 0.04-0.36 gava=576) BASOPHILS ABSOLUTE COUNT (BEAKER) (test srfl=120) 0.01 K/ L 0.01-0.08 IMMATURE GRANULOCYTES-RELATIVE PERCENT (BEAKER) 1 % 0-1 (test mzdg=0067) RAD, SHOULDER, COMPLETE (MIN 2 VIEWS), [id number] 17:48:00Reason for exam:-& gt;r/o FxShould this be [...] MDReport Verified Date/Time: 03/26/2018 17:48:06 Reading Location: [facility] Radiology Reading Room [facility] METABOLIC [id number] 07:10:00 Test Item Value Reference Range Comments SODIUM (BEAKER) (test 133 meq/L 136-145 ekol=076) POTASSIUM (BEAKER) (test 3.6 meq/L 3.5-5.1 vbtv=460) CHLORIDE (BEAKER) (test 101 meq/L 98-107 kkyy=103) CO2 (BEAKER) (test 24 meq/L 22-29 xvnh=673) BLOOD UREA NITROGEN 26 mg/dL 7-21 (BEAKER) (test vgpl=646) CREATININE (BEAKER) (test 2.73 mg/dL 0.57-1.25 gmuq=562) GLUCOSE RANDOM (BEAKER) 117 mg/dL 70-105 (test wudg=505) CALCIUM (BEAKER) (test 7.5 mg/dL 8.4-10.2 twxm=988) EGFR (BEAKER) (test 18 mL/min/1.73 sq m ESTIMATED GFR IS NOT qmqg=9869) ACCURATE CREATININE CLEARANCE IN PREDICTING GLOMERULAR FILTRATION RATE. ESTIMATED GFR IS NOT APPLICABLE FOR DIALYSIS PATIENTS. [id number] 07:08:00 Test Item Value Reference Range Comments MAGNESIUM (BEAKER) (test xtrt=143) 1.9 mg/dL 1.6-2.6 CBC W/PLT COUNT & AUTO [id number] 06:34:00 Test Item Value Reference Range Comments WHITE BLOOD CELL COUNT (BEAKER) (test rbxe=268) 3.1 K/ L 3.5-10.5 RED BLOOD CELL COUNT (BEAKER) (test vcbj=991) 2.18 M/ L 3.93-5.22 HEMOGLOBIN (BEAKER) (test kczi=085) 7.2 GM/DL 11.2-15.7 HEMATOCRIT (BEAKER) (test dwsd=543) 23.1 % 34.1-44.9 MEAN CORPUSCULAR VOLUME (BEAKER) (test ghje=030) 106.0 fL 79.4-94.8 MEAN CORPUSCULAR HEMOGLOBIN (BEAKER) (test 33.0 pg 25.6-32.2 xuzd=510) MEAN CORPUSCULAR HEMOGLOBIN CONC (BEAKER) (test 31.2 GM/DL 32.2-35.5 fcgl=810) RED CELL DISTRIBUTION WIDTH (BEAKER) (test 21.7 % 11.7-14.4 cvyv=614) PLATELET COUNT (BEAKER) (test rzsw=765) 45 K/CU MM 150-450 MEAN PLATELET VOLUME (BEAKER) (test sivm=994) 11.8 fL 9.4-12.3 NUCLEATED RED BLOOD CELLS (BEAKER) (test 0 /100 WBC 0-0 tque=043) NEUTROPHILS RELATIVE PERCENT (BEAKER) (test 83 % cvbk=475) LYMPHOCYTES RELATIVE PERCENT (BEAKER) (test 7 % pkbm=626) MONOCYTES RELATIVE PERCENT (BEAKER) (test 10 % cyej=196) EOSINOPHILS RELATIVE PERCENT (BEAKER) (test 0 % kejk=324) BASOPHILS RELATIVE PERCENT (BEAKER) (test 0 % lidl=390) NEUTROPHILS ABSOLUTE COUNT (BEAKER) (test 2.55 K/ L 1.56-6.13 eynk=490) LYMPHOCYTES ABSOLUTE COUNT (BEAKER) (test 0.20 K/ L 1.18-3.74 jjzs=307) MONOCYTES ABSOLUTE COUNT (BEAKER) (test dxub=663) 0.31 K/ L 0.24-0.36 EOSINOPHILS ABSOLUTE COUNT (BEAKER) (test 0.00 K/ L 0.04-0.36 ssnw=290) BASOPHILS ABSOLUTE COUNT (BEAKER) (test gkyl=747) 0.01 K/ L 0.01-0.08 IMMATURE GRANULOCYTES-RELATIVE PERCENT (BEAKER) 1 % 0-1 (test kndw=6153) CT, [id number] 02:57:00R/o retroperitoneal hematoma s/p kidney bxFINAL REPORT [...] Islas Verified Date/Time: 03/26/2018 02:57:14 Reading Location: [address] Transitional Reading Room Electronically signed by: KELLEE ISLAS MD on 2017 02:57 AMLACTATE DEHYDROGENASE (LDH)2018-03-25 14:50:00 Test Item Value Reference Range Comments LACTATE DEHYDROGENASE (BEAKER) (test surk=222) 722 U/L 125-220 PERIPHERAL BLOOD SMEAR - HOLD [id number] 14:37:00 Test Item Value Reference Range Comments PERIPHERAL SMEAR SAVE (BEAKER) (test iykl=9995) saved BASIC METABOLIC [id number] 07:08:00 Test Item Value Reference Range Comments SODIUM (BEAKER) (test 127 meq/L 136-145 oouv=473) POTASSIUM (BEAKER) (test 4.3 meq/L 3.5-5.1 atxe=800) CHLORIDE (BEAKER) (test 94 meq/L 98-107 siyq=503) CO2 (BEAKER) (test 23 meq/L 22-29 rwwn=557) BLOOD UREA NITROGEN 56 mg/dL 7-21 (BEAKER) (test yapa=138) CREATININE (BEAKER) (test 4.30 mg/dL 0.57-1.25 lxvn=909) GLUCOSE RANDOM (BEAKER) 110 mg/dL 70-105 (test gnvi=599) CALCIUM (BEAKER) (test 6.4 mg/dL 8.4-10.2 llxp=415) EGFR (BEAKER) (test 11 mL/min/1.73 sq m ESTIMATED GFR IS NOT node=2101) ACCURATE CREATININE CLEARANCE IN PREDICTING GLOMERULAR FILTRATION RATE. ESTIMATED GFR IS NOT APPLICABLE FOR DIALYSIS PATIENTS. [id number] 07:04:00 Test Item Value Reference Range Comments MAGNESIUM (BEAKER) (test gmck=319) 1.9 mg/dL 1.6-2.6 CBC W/PLT COUNT & AUTO [id number] 06:27:00 Test Item Value Reference Range Comments WHITE BLOOD CELL COUNT (BEAKER) (test foun=261) 5.3 K/ L 3.5-10.5 RED BLOOD CELL COUNT (BEAKER) (test drwq=193) 2.39 M/ L 3.93-5.22 HEMOGLOBIN (BEAKER) (test urnk=975) 7.9 GM/DL 11.2-15.7 HEMATOCRIT (BEAKER) (test gjjd=125) 25.0 % 34.1-44.9 MEAN CORPUSCULAR VOLUME (BEAKER) (test kkyd=462) 104.6 fL 79.4-94.8 MEAN CORPUSCULAR HEMOGLOBIN (BEAKER) (test 33.1 pg 25.6-32.2 ervw=572) MEAN CORPUSCULAR HEMOGLOBIN CONC (BEAKER) (test 31.6 GM/DL 32.2-35.5 jsyp=277) RED CELL DISTRIBUTION WIDTH (BEAKER) (test 22.2 % 11.7-14.4 utuf=750) PLATELET COUNT (BEAKER) (test wres=617) 60 K/CU MM 150-450 MEAN PLATELET VOLUME (BEAKER) (test cpda=156) 12.7 fL 9.4-12.3 NUCLEATED RED BLOOD CELLS (BEAKER) (test 0 /100 WBC 0-0 fgxa=856) NEUTROPHILS RELATIVE PERCENT (BEAKER) (test 85 % qbrw=739) LYMPHOCYTES RELATIVE PERCENT (BEAKER) (test 6 % rcyd=354) MONOCYTES RELATIVE PERCENT (BEAKER) (test 9 % ubiq=523) EOSINOPHILS RELATIVE PERCENT (BEAKER) (test 0 % qati=636) BASOPHILS RELATIVE PERCENT (BEAKER) (test 0 % enwo=908) NEUTROPHILS ABSOLUTE COUNT (BEAKER) (test 4.50 K/ L 1.56-6.13 pimz=001) LYMPHOCYTES ABSOLUTE COUNT (BEAKER) (test 0.30 K/ L 1.18-3.74 innw=204) MONOCYTES ABSOLUTE COUNT (BEAKER) (test emrt=247) 0.46 K/ L 0.24-0.36 EOSINOPHILS ABSOLUTE COUNT (BEAKER) (test 0.01 K/ L 0.04-0.36 kqdk=702) BASOPHILS ABSOLUTE COUNT (BEAKER) (test sfyq=830) 0.01 K/ L 0.01-0.08 IMMATURE GRANULOCYTES-RELATIVE PERCENT (BEAKER) 1 % 0-1 (test nkea=6065) HEPATITIS B [id number] 13:58:00 Test Item Value Reference Range Comments HEPATITIS B CORE TOTAL Nonreactive Nonreactive ANTIBODY (BEAKER) (test qceb=010) HEPATITIS B SURFACE ANTIBODY 133.0 mIU/mL <8.0 Testing performed at [facility] (BEAKER) (test kups=240) Diagnostic Laboratory.See attach result for further interpretation. HEPATITIS B SURFACE ANTIGEN Nonreactive Nonreactive (2) (BEAKER) (test gigy=6308) U/S, BIOPSY, RENAL (KIDNEY)2018-03-24 12:59:00Reason for exam:->Acute [...] MDReport Verified Date/Time: 03/24 12:59:37 Reading Location: [address] Ultrasound Reading Room BONE MARROW [id number] 11:03:00Bone Marrow Pathology Report Case: [id number] Authorizing Provider: Jordan Sultana MD Collected: 03/17/2018 1457 Ordering Location : [address] Med/Surg Received: 03/17/2018 1457 Pathologist: Doug [...] NORMOCYTIC ANEMIA-THROMBOCYTOPENIA Signing Pathologist Direct Phone Line: [phone] signed by Doug Lee MD on 03/23/2018 [...] be submitted as an addendum when available. [id number]; 75238; 84949 x 2; 29548; [id number] x 1; 70707 o74Ylkqugz malignant neoplasm of breast with metastasis to [...] clusters. CD61: Highlights megakaryocytes which appear mildly rejiltadyXL095: Demonstrates slightly more progenitor cells then CD34 [...] developed and its performance characteristics determined by [facility], Pathology Laboratory. It has not been cleared [...] 5.2, CD3, CD20, CD34, CD61, CD117, CD138, [place], Lambda , E-Cadherin.CBC W/PLT COUNT & AUTO [id number] 06:18:00 Test Item Value Reference Range Comments WHITE BLOOD CELL COUNT (BEAKER) (test zhjm=620) 5.0 K/ L 3.5-10.5 RED BLOOD CELL COUNT (BEAKER) (test bixv=482) 2.77 M/ L 3.93-5.22 HEMOGLOBIN (BEAKER) (test oacm=065) 9.0 GM/DL 11.2-15.7 HEMATOCRIT (BEAKER) (test wfsj=786) 29.8 % 34.1-44.9 MEAN CORPUSCULAR VOLUME (BEAKER) (test lsho=770) 107.6 fL 79.4-94.8 MEAN CORPUSCULAR HEMOGLOBIN (BEAKER) (test 32.5 pg 25.6-32.2 baqn=182) MEAN CORPUSCULAR HEMOGLOBIN CONC (BEAKER) (test 30.2 GM/DL 32.2-35.5 cyfq=607) RED CELL DISTRIBUTION WIDTH (BEAKER) (test 23.6 % 11.7-14.4 fhoh=728) PLATELET COUNT (BEAKER) (test paoz=224) 61 K/CU MM 150-450 MEAN PLATELET VOLUME (BEAKER) (test dlxo=120) 11.2 fL 9.4-12.3 NUCLEATED RED BLOOD CELLS (BEAKER) (test 0 /100 WBC 0-0 ldtn=130) NEUTROPHILS RELATIVE PERCENT (BEAKER) (test 82 % qbzj=555) LYMPHOCYTES RELATIVE PERCENT (BEAKER) (test 7 % uusi=310) MONOCYTES RELATIVE PERCENT (BEAKER) (test 10 % pekd=909) EOSINOPHILS RELATIVE PERCENT (BEAKER) (test 0 % evct=820) BASOPHILS RELATIVE PERCENT (BEAKER) (test 0 % mzit=961) NEUTROPHILS ABSOLUTE COUNT (BEAKER) (test 4.14 K/ L 1.56-6.13 oxsq=213) LYMPHOCYTES ABSOLUTE COUNT (BEAKER) (test 0.35 K/ L 1.18-3.74 hckh=802) MONOCYTES ABSOLUTE COUNT (BEAKER) (test ztxw=421) 0.49 K/ L 0.24-0.36 EOSINOPHILS ABSOLUTE COUNT (BEAKER) (test 0.02 K/ L 0.04-0.36 orou=693) BASOPHILS ABSOLUTE COUNT (BEAKER) (test aghi=758) 0.01 K/ L 0.01-0.08 IMMATURE GRANULOCYTES-RELATIVE PERCENT (BEAKER) 0 % 0-1 (test cwwk=2350) BASIC METABOLIC [id number] 05:46:00 Test Item Value Reference Range Comments SODIUM (BEAKER) (test 129 meq/L 136-145 upbh=628) POTASSIUM (BEAKER) (test 3.9 meq/L 3.5-5.1 vkhx=121) CHLORIDE (BEAKER) (test 98 meq/L 98-107 ykap=903) CO2 (BEAKER) (test 22 meq/L 22-29 zlfn=879) BLOOD UREA NITROGEN 42 mg/dL 7-21 (BEAKER) (test eflm=871) CREATININE (BEAKER) (test 3.25 mg/dL 0.57-1.25 xnbb=367) GLUCOSE RANDOM (BEAKER) 101 mg/dL 70-105 (test tgyf=667) CALCIUM (BEAKER) (test 7.0 mg/dL 8.4-10.2 omaw=104) EGFR (BEAKER) (test 15 mL/min/1.73 sq m ESTIMATED GFR IS NOT aauz=7245) ACCURATE CREATININE CLEARANCE IN PREDICTING GLOMERULAR FILTRATION RATE. ESTIMATED GFR IS NOT APPLICABLE FOR DIALYSIS PATIENTS. [id number] 05:40:00 Test Item Value Reference Range Comments MAGNESIUM (BEAKER) (test 2.1 mg/dL 1.6-2.6 Specimen slightly hemolyzed yqnc=709) BASIC METABOLIC [id number] 23:13:00 Test Item Value Reference Range Comments SODIUM (BEAKER) (test 133 meq/L 136-145 ghji=025) POTASSIUM (BEAKER) (test 3.6 meq/L 3.5-5.1 yjeg=943) CHLORIDE (BEAKER) (test 98 meq/L 98-107 iqlh=483) CO2 (BEAKER) (test 26 meq/L 22-29 wjft=214) BLOOD UREA NITROGEN 42 mg/dL 7-21 (BEAKER) (test xlis=208) CREATININE (BEAKER) (test 3.20 mg/dL 0.57-1.25 nusw=136) GLUCOSE RANDOM (BEAKER) 113 mg/dL 70-105 (test joxe=048) CALCIUM (BEAKER) (test 6.9 mg/dL 8.4-10.2 pddd=965) EGFR (BEAKER) (test 15 mL/min/1.73 sq m ESTIMATED GFR IS NOT rrme=2311) ACCURATE CREATININE CLEARANCE IN PREDICTING GLOMERULAR FILTRATION RATE. ESTIMATED GFR IS NOT APPLICABLE FOR DIALYSIS PATIENTS. BASIC METABOLIC [id number] 18:45:00 Test Item Value Reference Range Comments SODIUM (BEAKER) (test 134 meq/L 136-145 hnmg=191) POTASSIUM (BEAKER) (test 3.8 meq/L 3.5-5.1 ysok=956) CHLORIDE (BEAKER) (test 100 meq/L 98-107 omra=080) CO2 (BEAKER) (test 25 meq/L 22-29 meea=580) BLOOD UREA NITROGEN 37 mg/dL 7-21 (BEAKER) (test aysp=498) CREATININE (BEAKER) (test 2.98 mg/dL 0.57-1.25 uszm=969) GLUCOSE RANDOM (BEAKER) 131 mg/dL 70-105 (test schx=904) CALCIUM (BEAKER) (test 7.3 mg/dL 8.4-10.2 vwni=444) EGFR (BEAKER) (test 16 mL/min/1.73 sq m ESTIMATED GFR IS NOT vbsk=3185) ACCURATE CREATININE CLEARANCE IN PREDICTING GLOMERULAR FILTRATION RATE. ESTIMATED GFR IS NOT APPLICABLE FOR DIALYSIS PATIENTS. POCT-GLUCOSE [id number] 10:29:00 Test Item Value Reference Range Comments POC-GLUCOSE METER (BEAKER) 93 mg/dL 70-110 TESTED AT [facility] [address] [place] [address] (test ainx=5384) [facility] [id number] BASIC METABOLIC [id number] 07:02:00 Test Item Value Reference Range Comments SODIUM (BEAKER) (test 133 meq/L 136-145 bkdl=522) POTASSIUM (BEAKER) (test 3.7 meq/L 3.5-5.1 urga=429) CHLORIDE (BEAKER) (test 97 meq/L 98-107 nojn=836) CO2 (BEAKER) (test 25 meq/L 22-29 kidz=913) BLOOD UREA NITROGEN 70 mg/dL 7-21 (BEAKER) (test njir=115) CREATININE (BEAKER) (test 4.25 mg/dL 0.57-1.25 gfxx=488) GLUCOSE RANDOM (BEAKER) 93 mg/dL 70-105 (test gmiz=374) CALCIUM (BEAKER) (test 7.2 mg/dL 8.4-10.2 mueq=469) EGFR (BEAKER) (test 11 mL/min/1.73 sq m ESTIMATED GFR IS NOT lgpo=4642) ACCURATE CREATININE CLEARANCE IN PREDICTING GLOMERULAR FILTRATION RATE. ESTIMATED GFR IS NOT APPLICABLE FOR DIALYSIS PATIENTS. [id number] 07:01:00 Test Item Value Reference Range Comments MAGNESIUM (BEAKER) (test qqlk=077) 2.2 mg/dL 1.6-2.6 CBC W/PLT COUNT & AUTO [id number] 06:36:00 Test Item Value Reference Range Comments WHITE BLOOD CELL COUNT (BEAKER) (test dkjf=157) 6.2 K/ L 3.5-10.5 RED BLOOD CELL COUNT (BEAKER) (test ntba=755) 2.89 M/ L 3.93-5.22 HEMOGLOBIN (BEAKER) (test vlrv=696) 9.5 GM/DL 11.2-15.7 HEMATOCRIT (BEAKER) (test trdh=316) 31.1 % 34.1-44.9 MEAN CORPUSCULAR VOLUME (BEAKER) (test oecy=246) 107.6 fL 79.4-94.8 MEAN CORPUSCULAR HEMOGLOBIN (BEAKER) (test 32.9 pg 25.6-32.2 ivvi=646) MEAN CORPUSCULAR HEMOGLOBIN CONC (BEAKER) (test 30.5 GM/DL 32.2-35.5 rljs=915) RED CELL DISTRIBUTION WIDTH (BEAKER) (test 24.9 % 11.7-14.4 sqyu=100) PLATELET COUNT (BEAKER) (test utnu=723) 73 K/CU MM 150-450 MEAN PLATELET VOLUME (BEAKER) (test olun=580) 13.4 fL 9.4-12.3 NUCLEATED RED BLOOD CELLS (BEAKER) (test 0 /100 WBC 0-0 wrex=537) NEUTROPHILS RELATIVE PERCENT (BEAKER) (test 87 % wemu=524) LYMPHOCYTES RELATIVE PERCENT (BEAKER) (test 5 % bsrz=023) MONOCYTES RELATIVE PERCENT (BEAKER) (test 7 % nirl=069) EOSINOPHILS RELATIVE PERCENT (BEAKER) (test 0 % gxwi=824) BASOPHILS RELATIVE PERCENT (BEAKER) (test 0 % rcyu=295) NEUTROPHILS ABSOLUTE COUNT (BEAKER) (test 5.36 K/ L 1.56-6.13 axbr=180) LYMPHOCYTES ABSOLUTE COUNT (BEAKER) (test 0.31 K/ L 1.18-3.74 wqca=044) MONOCYTES ABSOLUTE COUNT (BEAKER) (test ihmp=800) 0.44 K/ L 0.24-0.36 EOSINOPHILS ABSOLUTE COUNT (BEAKER) (test 0.01 K/ L 0.04-0.36 hart=589) BASOPHILS ABSOLUTE COUNT (BEAKER) (test ilms=832) 0.00 K/ L 0.01-0.08 IMMATURE GRANULOCYTES-RELATIVE PERCENT (BEAKER) 1 % 0-1 (test ndcd=7712) [id number] 06:35:00 Test Item Value Reference Range Comments PROTIME (BEAKER) (test grwl=444) 15.3 seconds 11.7-14.7 INR (BEAKER) (test sxvw=587) 1.2 <=5.9 PARTIAL THROMBOPLASTIN TIME (BEAKER) (test 29.7 seconds 22.5-36.0 ygnc=045) RECOMMENDED COUMADIN/WARFARIN INR THERAPY RANGESSTANDARD DOSE: 2.0 - 3.0 Includes: PROPHYLAXIS forvenous thrombosis, systemic embolization; TREATMENT for venous thrombosis and/or pulmonary embolus.HIGH RISK: Target INR is 2.5-3.5 for patients with mechanical heart valves.[id number] 23:55:00 Test Item Value Reference Range Comments PHOSPHORUS (BEAKER) (test wlcm=469) 6.1 mg/dL 2.3-4.7 BASIC METABOLIC [id number] 23:55:00 Test Item Value Reference Range Comments SODIUM (BEAKER) (test 135 meq/L 136-145 dqiz=312) POTASSIUM (BEAKER) (test 3.6 meq/L 3.5-5.1 jfhz=644) CHLORIDE (BEAKER) (test 97 meq/L 98-107 pvkj=288) CO2 (BEAKER) (test 26 meq/L 22-29 utgf=062) BLOOD UREA NITROGEN 63 mg/dL 7-21 (BEAKER) (test nhvg=425) CREATININE (BEAKER) (test 3.99 mg/dL 0.57-1.25 kdta=538) GLUCOSE RANDOM (BEAKER) 121 mg/dL 70-105 (test dkhf=095) CALCIUM (BEAKER) (test 7.2 mg/dL 8.4-10.2 rail=642) EGFR (BEAKER) (test 12 mL/min/1.73 sq m ESTIMATED GFR IS NOT yqem=2316) ACCURATE CREATININE CLEARANCE IN PREDICTING GLOMERULAR FILTRATION RATE. ESTIMATED GFR IS NOT APPLICABLE FOR DIALYSIS PATIENTS. BASIC METABOLIC [id number] 17:30:00 Test Item Value Reference Range Comments SODIUM (BEAKER) (test 137 meq/L 136-145 hhjw=145) POTASSIUM (BEAKER) (test 3.7 meq/L 3.5-5.1 ghhv=310) CHLORIDE (BEAKER) (test 98 meq/L 98-107 kzyy=881) CO2 (BEAKER) (test 27 meq/L 22-29 igpe=976) BLOOD UREA NITROGEN 53 mg/dL 7-21 (BEAKER) (test zsse=018) CREATININE (BEAKER) (test 3.30 mg/dL 0.57-1.25 ikjj=158) GLUCOSE RANDOM (BEAKER) 105 mg/dL 70-105 (test whdj=342) CALCIUM (BEAKER) (test 8.1 mg/dL 8.4-10.2 jdgk=103) EGFR (BEAKER) (test 15 mL/min/1.73 sq m ESTIMATED GFR IS NOT dxlt=4088) ACCURATE CREATININE CLEARANCE IN PREDICTING GLOMERULAR FILTRATION RATE. ESTIMATED GFR IS NOT APPLICABLE FOR DIALYSIS PATIENTS. HEPATIC FUNCTION [id number] 17:26:00 Test Item Value Reference Range Comments TOTAL PROTEIN (BEAKER) (test tuyj=035) 6.7 gm/dL 6.0-8.3 ALBUMIN (BEAKER) (test ppae=3871) 3.1 g/dL 3.5-5.0 BILIRUBIN TOTAL (BEAKER) (test nukr=117) 1.6 mg/dL 0.2-1.2 BILIRUBIN DIRECT (BEAKER) (test npwd=931) 0.7 mg/dL 0.1-0.5 ALKALINE PHOSPHATASE (BEAKER) (test wire=570) 63 U/L 40-150 AST (SGOT) (BEAKER) (test zddb=639) 48 U/L 5-34 ALT (SGPT) (BEAKER) (test tutt=049) 24 U/L 6-55 BASIC METABOLIC [id number] 15:15:00 Test Item Value Reference Range Comments SODIUM (BEAKER) (test 134 meq/L 136-145 algd=207) POTASSIUM (BEAKER) (test 4.1 meq/L 3.5-5.1 xjmi=783) CHLORIDE (BEAKER) (test 94 meq/L 98-107 hkgn=514) CO2 (BEAKER) (test 23 meq/L 22-29 zflx=751) BLOOD UREA NITROGEN 112 mg/dL 7-21 (BEAKER) (test napi=211) CREATININE (BEAKER) (test 5.93 mg/dL 0.57-1.25 qjbk=168) GLUCOSE RANDOM (BEAKER) 104 mg/dL 70-105 (test pxcy=509) CALCIUM (BEAKER) (test 7.2 mg/dL 8.4-10.2 xyxp=561) EGFR (BEAKER) (test 7 mL/min/1.73 sq m ESTIMATED GFR IS NOT fqon=3896) ACCURATE CREATININE CLEARANCE IN PREDICTING GLOMERULAR FILTRATION RATE. ESTIMATED GFR IS NOT APPLICABLE FOR DIALYSIS PATIENTS. URINE IMMUNOFIXATION, [id number] 15:09:00 Test Item Value Reference Range Comments PROTEIN, URINE (BEAKER) (test 412 mg/dL 0-14 lrbe=1330) ALBUMIN URINE ELP (BEAKER) 56.3 % (test ysmn=3122) GAMMA GLOBULIN URINE (BEAKER) 43.7 % (test zmeo=4852) URINE JUDSON ID-[id number] (BEAKER) No monoclonal proteins or (test gpmd=2899) monoclonal free light chains detected. [id number] (BEAKER) Barbie Mccollum MD (test azlg=4172) (electronic signature) URINE PROTEIN ELECTROPHORESIS, [id number] 13:02:00 Test Item Value Reference Range Comments PROTEIN, URINE (BEAKER) (test 412 mg/dL 0-14 jndr=2098) ALBUMIN URINE ELP (BEAKER) 56.3 % (test seuw=2596) GAMMA GLOBULIN URINE (BEAKER) 43.7 % (test mklr=2150) UPEP, ID-438 (BEAKER) (test No monoclonal bands detected. mrjj=1111) [id number] (BEAKER) Barbie Mccollum MD (test stge=3558) (electronic signature) [id number] 08:19:00 Test Item Value Reference Range Comments HAPTOGLOBIN (BEAKER) (test wcmg=445) < mg/dL 14-258 BASIC METABOLIC [id number] 07:44:00 Test Item Value Reference Range Comments SODIUM (BEAKER) (test 133 meq/L 136-145 ibut=111) POTASSIUM (BEAKER) (test 4.4 meq/L 3.5-5.1 vkoi=869) CHLORIDE (BEAKER) (test 95 meq/L 98-107 yhtw=222) CO2 (BEAKER) (test 23 meq/L 22-29 dzjt=637) BLOOD UREA NITROGEN 108 mg/dL 7-21 (BEAKER) (test ifrx=412) CREATININE (BEAKER) (test 5.79 mg/dL 0.57-1.25 ejlw=033) GLUCOSE RANDOM (BEAKER) 107 mg/dL 70-105 (test qxwz=968) CALCIUM (BEAKER) (test 7.4 mg/dL 8.4-10.2 pbua=188) EGFR (BEAKER) (test 8 mL/min/1.73 sq m ESTIMATED GFR IS NOT bzex=9496) ACCURATE CREATININE CLEARANCE IN PREDICTING GLOMERULAR FILTRATION RATE. ESTIMATED GFR IS NOT APPLICABLE FOR DIALYSIS PATIENTS. [id number] 07:29:00 Test Item Value Reference Range Comments MAGNESIUM (BEAKER) (test lziq=420) 2.6 mg/dL 1.6-2.6 LACTATE DEHYDROGENASE (LDH)[id number] 07:29:00 Test Item Value Reference Range Comments LACTATE DEHYDROGENASE (BEAKER) (test hiyn=028) 812 U/L 125-220 CBC W/PLT COUNT & AUTO [id number] 07:15:00 Test Item Value Reference Range Comments WHITE BLOOD CELL COUNT (BEAKER) (test gqmn=995) 5.5 K/ L 3.5-10.5 RED BLOOD CELL COUNT (BEAKER) (test wniv=907) 2.90 M/ L 3.93-5.22 HEMOGLOBIN (BEAKER) (test lnxf=005) 9.5 GM/DL 11.2-15.7 HEMATOCRIT (BEAKER) (test bhlk=182) 30.7 % 34.1-44.9 MEAN CORPUSCULAR VOLUME (BEAKER) (test fnru=899) 105.9 fL 79.4-94.8 MEAN CORPUSCULAR HEMOGLOBIN (BEAKER) (test 32.8 pg 25.6-32.2 doxn=895) MEAN CORPUSCULAR HEMOGLOBIN CONC (BEAKER) (test 30.9 GM/DL 32.2-35.5 srrv=481) RED CELL DISTRIBUTION WIDTH (BEAKER) (test 24.7 % 11.7-14.4 lyce=124) PLATELET COUNT (BEAKER) (test pqfp=156) 56 K/CU MM 150-450 MEAN PLATELET VOLUME (BEAKER) (test fphe=990) 11.6 fL 9.4-12.3 NUCLEATED RED BLOOD CELLS (BEAKER) (test 0 /100 WBC 0-0 xfjz=925) NEUTROPHILS RELATIVE PERCENT (BEAKER) (test 83 % difj=188) LYMPHOCYTES RELATIVE PERCENT (BEAKER) (test 9 % aicv=339) MONOCYTES RELATIVE PERCENT (BEAKER) (test 7 % qrwr=027) EOSINOPHILS RELATIVE PERCENT (BEAKER) (test 0 % clbv=119) BASOPHILS RELATIVE PERCENT (BEAKER) (test 0 % ubhy=584) NEUTROPHILS ABSOLUTE COUNT (BEAKER) (test 4.58 K/ L 1.56-6.13 ffnr=024) LYMPHOCYTES ABSOLUTE COUNT (BEAKER) (test 0.49 K/ L 1.18-3.74 hjws=092) MONOCYTES ABSOLUTE COUNT (BEAKER) (test jdwz=354) 0.39 K/ L 0.24-0.36 EOSINOPHILS ABSOLUTE COUNT (BEAKER) (test 0.00 K/ L 0.04-0.36 laqd=363) BASOPHILS ABSOLUTE COUNT (BEAKER) (test tweu=900) 0.01 K/ L 0.01-0.08 IMMATURE GRANULOCYTES-RELATIVE PERCENT (BEAKER) 1 % 0-1 (test jlmc=7135) RETICULOCYTE [id number] 07:08:00 Test Item Value Reference Range Comments RETICULOCYTE COUNT PCT (BEAKER) (test znxs=067) 13.4 % 0.5-1.7 [id number] 07:07:00 Test Item Value Reference Range Comments PROTIME (BEAKER) (test dnog=679) 16.2 seconds 11.7-14.7 INR (BEAKER) (test oket=028) 1.3 <=5.9 PARTIAL THROMBOPLASTIN TIME (BEAKER) (test 31.2 seconds 22.5-36.0 asxd=558) RECOMMENDED COUMADIN/WARFARIN INR THERAPY RANGESSTANDARD DOSE: 2.0 - 3.0 Includes: PROPHYLAXIS forvenous thrombosis, systemic embolization; TREATMENT for venous thrombosis and/or pulmonary embolus.HIGH RISK: Target INR is 2.5-3.5 for patients with mechanical heart valves.PROTHROMBIN [id number] 07:06: 00 Test Item Value Reference Range Comments PROTIME (BEAKER) (test rcrn=129) 16.2 seconds 11.7-14.7 INR (BEAKER) (test cqxc=512) 1.3 <=5.9 RECOMMENDED COUMADIN/WARFARIN INR THERAPY RANGESSTANDARD DOSE: 2.0 - 3.0 Includes: PROPHYLAXIS forvenous thrombosis, systemic embolization; TREATMENT for venous thrombosis and/or pulmonary embolus.HIGH RISK: Target INR is 2.5-3.5 for patients with mechanical heart valves.BASIC METABOLIC [id number] 22:18: 00 Test Item Value Reference Range Comments SODIUM (BEAKER) (test 132 meq/L 136-145 tdux=334) POTASSIUM (BEAKER) (test 4.7 meq/L 3.5-5.1 cvdu=553) CHLORIDE (BEAKER) (test 95 meq/L 98-107 yhbo=884) CO2 (BEAKER) (test 22 meq/L 22-29 xili=331) BLOOD UREA NITROGEN 99 mg/dL 7-21 (BEAKER) (test eilm=684) CREATININE (BEAKER) (test 5.57 mg/dL 0.57-1.25 yukb=257) GLUCOSE RANDOM (BEAKER) 139 mg/dL 70-105 (test nufh=446) CALCIUM (BEAKER) (test 7.3 mg/dL 8.4-10.2 gtxd=687) EGFR (BEAKER) (test 8 mL/min/1.73 sq m ESTIMATED GFR IS NOT ehmo=4308) ACCURATE CREATININE CLEARANCE IN PREDICTING GLOMERULAR FILTRATION RATE. ESTIMATED GFR IS NOT APPLICABLE FOR DIALYSIS PATIENTS. RAD, CHEST, 1 VIEW, NON [id number] 18:54:00Reason for exam:->cough, chest congestionShould this be [...] MDReport Verified Date/Time: 03/21/2018 18:54:34 Reading Location: [facility] C013Y CT Body Reading Room BASIC METABOLIC [id number] 16:55:00 Test Item Value Reference Range Comments SODIUM (BEAKER) (test 135 meq/L 136-145 bdcs=066) POTASSIUM (BEAKER) (test 5.1 meq/L 3.5-5.1 bsbc=930) CHLORIDE (BEAKER) (test 97 meq/L 98-107 ojre=111) CO2 (BEAKER) (test 20 meq/L 22-29 vnrr=797) BLOOD UREA NITROGEN 100 mg/dL 7-21 (BEAKER) (test lozy=628) CREATININE (BEAKER) (test 5.45 mg/dL 0.57-1.25 kqak=228) GLUCOSE RANDOM (BEAKER) 133 mg/dL 70-105 (test afdf=613) CALCIUM (BEAKER) (test 7.7 mg/dL 8.4-10.2 qaan=537) EGFR (BEAKER) (test 8 mL/min/1.73 sq m ESTIMATED GFR IS NOT ltjn=8479) ACCURATE CREATININE CLEARANCE IN PREDICTING GLOMERULAR FILTRATION RATE. ESTIMATED GFR IS NOT APPLICABLE FOR DIALYSIS PATIENTS. BLOOD [id number] 13:00:00 Test Item Value Reference Range Comments CULTURE (BEAKER) (test fkqn=9300) No growth in 5 days BASIC METABOLIC [id number] 12:42:00 Test Item Value Reference Range Comments SODIUM (BEAKER) (test 134 meq/L 136-145 jkdg=778) POTASSIUM (BEAKER) (test 4.7 meq/L 3.5-5.1 hsfj=397) CHLORIDE (BEAKER) (test 95 meq/L 98-107 xjfq=985) CO2 (BEAKER) (test 21 meq/L 22-29 hwgz=744) BLOOD UREA NITROGEN 97 mg/dL 7-21 (BEAKER) (test xxrf=224) CREATININE (BEAKER) (test 5.18 mg/dL 0.57-1.25 ukig=029) GLUCOSE RANDOM (BEAKER) 121 mg/dL 70-105 (test esil=193) CALCIUM (BEAKER) (test 7.9 mg/dL 8.4-10.2 wprz=811) EGFR (BEAKER) (test 9 mL/min/1.73 sq m ESTIMATED GFR IS NOT gihd=9024) ACCURATE CREATININE CLEARANCE IN PREDICTING GLOMERULAR FILTRATION RATE. ESTIMATED GFR IS NOT APPLICABLE FOR DIALYSIS PATIENTS. BASIC METABOLIC [id number] 06:21:00 Test Item Value Reference Range Comments SODIUM (BEAKER) (test 133 meq/L 136-145 jcsg=995) POTASSIUM (BEAKER) (test 4.6 meq/L 3.5-5.1 nybj=986) CHLORIDE (BEAKER) (test 97 meq/L 98-107 nnhq=341) CO2 (BEAKER) (test 18 meq/L 22-29 ptwg=232) BLOOD UREA NITROGEN 89 mg/dL 7-21 (BEAKER) (test kvbj=958) CREATININE (BEAKER) (test 4.86 mg/dL 0.57-1.25 mrqn=221) GLUCOSE RANDOM (BEAKER) 117 mg/dL 70-105 (test saqk=166) CALCIUM (BEAKER) (test 7.9 mg/dL 8.4-10.2 taeq=217) EGFR (BEAKER) (test 9 mL/min/1.73 sq m ESTIMATED GFR IS NOT ottv=2112) ACCURATE CREATININE CLEARANCE IN PREDICTING GLOMERULAR FILTRATION RATE. ESTIMATED GFR IS NOT APPLICABLE FOR DIALYSIS PATIENTS. [id number] 05:54:00 Test Item Value Reference Range Comments MAGNESIUM (BEAKER) (test slxb=218) 2.4 mg/dL 1.6-2.6 CBC (HEMOGRAM ONLY)2018-03-21 05:23:00 Test Item Value Reference Range Comments WHITE BLOOD CELL COUNT (BEAKER) (test chds=693) 7.6 K/ L 3.5-10.5 RED BLOOD CELL COUNT (BEAKER) (test rqnx=811) 3.13 M/ L 3.93-5.22 HEMOGLOBIN (BEAKER) (test nbgs=934) 10.1 GM/DL 11.2-15.7 HEMATOCRIT (BEAKER) (test kokf=906) 32.1 % 34.1-44.9 MEAN CORPUSCULAR VOLUME (BEAKER) (test movc=922) 102.6 fL 79.4-94.8 MEAN CORPUSCULAR HEMOGLOBIN (BEAKER) (test 32.3 pg 25.6-32.2 bqyc=983) MEAN CORPUSCULAR HEMOGLOBIN CONC (BEAKER) (test 31.5 GM/DL 32.2-35.5 ubro=913) RED CELL DISTRIBUTION WIDTH (BEAKER) (test 24.0 % 11.7-14.4 uadj=186) PLATELET COUNT (BEAKER) (test qucq=197) 68 K/CU MM 150-450 MEAN PLATELET VOLUME (BEAKER) (test aosk=600) 14.4 fL 9.4-12.3 NUCLEATED RED BLOOD CELLS (BEAKER) (test 1 /100 WBC 0-0 gvnt=755) BASIC METABOLIC [id number] 00:47:00 Test Item Value Reference Range Comments SODIUM (BEAKER) (test 134 meq/L 136-145 fjrg=699) POTASSIUM (BEAKER) (test 4.7 meq/L 3.5-5.1 ztry=053) CHLORIDE (BEAKER) (test 97 meq/L 98-107 wwbb=621) CO2 (BEAKER) (test 22 meq/L 22-29 ssls=635) BLOOD UREA NITROGEN 86 mg/dL 7-21 (BEAKER) (test fhou=174) CREATININE (BEAKER) (test 4.81 mg/dL 0.57-1.25 efcg=968) GLUCOSE RANDOM (BEAKER) 115 mg/dL 70-105 (test kayx=170) CALCIUM (BEAKER) (test 7.9 mg/dL 8.4-10.2 srog=707) EGFR (BEAKER) (test 9 mL/min/1.73 sq m ESTIMATED GFR IS NOT kkgi=1968) ACCURATE CREATININE CLEARANCE IN PREDICTING GLOMERULAR FILTRATION RATE. ESTIMATED GFR IS NOT APPLICABLE FOR DIALYSIS PATIENTS. HEPATITIS C [id number] 13:26:00 Test Item Value Reference Range Comments HEPATITIS C ANTIBODY (BEAKER) (test ujjl=058) Nonreactive Nonreactive BASIC METABOLIC [id number] 13:08:00 Test Item Value Reference Range Comments SODIUM (BEAKER) (test 133 meq/L 136-145 uhpo=668) POTASSIUM (BEAKER) (test 5.0 meq/L 3.5-5.1 hzum=284) CHLORIDE (BEAKER) (test 92 meq/L 98-107 ozxp=427) CO2 (BEAKER) (test 21 meq/L 22-29 tmrn=992) BLOOD UREA NITROGEN 123 mg/dL 7-21 (BEAKER) (test imem=015) CREATININE (BEAKER) (test 5.93 mg/dL 0.57-1.25 xtrd=136) GLUCOSE RANDOM (BEAKER) 108 mg/dL 70-105 (test rgux=924) CALCIUM (BEAKER) (test 8.1 mg/dL 8.4-10.2 xkgu=378) EGFR (BEAKER) (test 7 mL/min/1.73 sq m ESTIMATED GFR IS NOT irvg=5046) ACCURATE CREATININE CLEARANCE IN PREDICTING GLOMERULAR FILTRATION RATE. ESTIMATED GFR IS NOT APPLICABLE FOR DIALYSIS PATIENTS. T4, [id number] 09:25:00 Test Item Value Reference Range Comments FREE T4 (BEAKER) (test lrmy=651) 0.67 ng/dL 0.70-1.48 TSH/FREE T4 IF [id number] 09:04:00 Test Item Value Reference Range Comments THYROID STIMULATING HORMONE (BEAKER) (test 7.12 uIU/mL 0.35-4.94 cews=777) BASIC METABOLIC [id number] 07:17:00 Test Item Value Reference Range Comments SODIUM (BEAKER) (test 132 meq/L 136-145 gnmr=676) POTASSIUM (BEAKER) (test 4.6 meq/L 3.5-5.1 cwpe=985) CHLORIDE (BEAKER) (test 92 meq/L 98-107 fpme=110) CO2 (BEAKER) (test 22 meq/L 22-29 pnvu=742) BLOOD UREA NITROGEN 119 mg/dL 7-21 (BEAKER) (test anpv=462) CREATININE (BEAKER) (test 5.68 mg/dL 0.57-1.25 iakg=370) GLUCOSE RANDOM (BEAKER) 108 mg/dL 70-105 (test capg=287) CALCIUM (BEAKER) (test 8.0 mg/dL 8.4-10.2 ygqp=898) EGFR (BEAKER) (test 8 mL/min/1.73 sq m ESTIMATED GFR IS NOT rcdn=8017) ACCURATE CREATININE CLEARANCE IN PREDICTING GLOMERULAR FILTRATION RATE. ESTIMATED GFR IS NOT APPLICABLE FOR DIALYSIS PATIENTS. CBC (HEMOGRAM ONLY)2018-03-20 06:25:00 Test Item Value Reference Range Comments WHITE BLOOD CELL COUNT (BEAKER) (test miwg=174) 7.0 K/ L 3.5-10.5 RED BLOOD CELL COUNT (BEAKER) (test ssxf=789) 2.95 M/ L 3.93-5.22 HEMOGLOBIN (BEAKER) (test eytl=283) 9.5 GM/DL 11.2-15.7 HEMATOCRIT (BEAKER) (test myzo=496) 29.3 % 34.1-44.9 MEAN CORPUSCULAR VOLUME (BEAKER) (test lgjc=299) 99.3 fL 79.4-94.8 MEAN CORPUSCULAR HEMOGLOBIN (BEAKER) (test 32.2 pg 25.6-32.2 lxyx=578) MEAN CORPUSCULAR HEMOGLOBIN CONC (BEAKER) (test 32.4 GM/DL 32.2-35.5 fbkv=619) RED CELL DISTRIBUTION WIDTH (BEAKER) (test 22.7 % 11.7-14.4 diit=008) PLATELET COUNT (BEAKER) (test uuos=960) 53 K/CU MM 150-450 NUCLEATED RED BLOOD CELLS (BEAKER) (test 1 /100 WBC 0-0 opat=886) BASIC METABOLIC [id number] 03:08:00 Test Item Value Reference Range Comments SODIUM (BEAKER) (test 130 meq/L 136-145 xaka=568) POTASSIUM (BEAKER) (test 4.9 meq/L 3.5-5.1 efxi=269) CHLORIDE (BEAKER) (test 92 meq/L 98-107 wosg=781) CO2 (BEAKER) (test 21 meq/L 22-29 jxqc=913) BLOOD UREA NITROGEN 117 mg/dL 7-21 (BEAKER) (test fqie=636) CREATININE (BEAKER) (test 5.66 mg/dL 0.57-1.25 yqwv=910) GLUCOSE RANDOM (BEAKER) 124 mg/dL 70-105 (test dued=983) CALCIUM (BEAKER) (test 7.9 mg/dL 8.4-10.2 swtk=584) EGFR (BEAKER) (test 8 mL/min/1.73 sq m ESTIMATED GFR IS NOT qczn=3428) ACCURATE CREATININE CLEARANCE IN PREDICTING GLOMERULAR FILTRATION RATE. ESTIMATED GFR IS NOT APPLICABLE FOR DIALYSIS PATIENTS. BASIC METABOLIC [id number] 20:16:00 Test Item Value Reference Range Comments SODIUM (BEAKER) (test 131 meq/L 136-145 tbzf=610) POTASSIUM (BEAKER) (test 5.0 meq/L 3.5-5.1 kgri=493) CHLORIDE (BEAKER) (test 92 meq/L 98-107 vqli=468) CO2 (BEAKER) (test 22 meq/L 22-29 wbxk=524) BLOOD UREA NITROGEN 113 mg/dL 7-21 (BEAKER) (test tvps=557) CREATININE (BEAKER) (test 5.58 mg/dL 0.57-1.25 uxzm=942) GLUCOSE RANDOM (BEAKER) 112 mg/dL 70-105 (test fekb=932) CALCIUM (BEAKER) (test 8.1 mg/dL 8.4-10.2 bgil=812) EGFR (BEAKER) (test 8 mL/min/1.73 sq m ESTIMATED GFR IS NOT qjqh=2792) ACCURATE CREATININE CLEARANCE IN PREDICTING GLOMERULAR FILTRATION RATE. ESTIMATED GFR IS NOT APPLICABLE FOR DIALYSIS PATIENTS. PROTEIN ELECTROPHORESIS, [id number] 17:31:00 Test Item Value Reference Range Comments ALBUMIN FRACTION (BEAKER) 2.7 g/dL 3.5-5.5 (test uoro=816) ALPHA 1 FRACTION (BEAKER) 0.4 g/dL 0.2-0.4 (test jewb=917) ALPHA 2 FRACTION (BEAKER) 0.5 g/dL 0.5-0.9 (test peul=919) BETA FRACTION (BEAKER) (test 0.8 g/dL 0.6-1.1 bwwy=799) GAMMA GLOBULIN FRACTION 2.2 g/dL 0.7-1.7 (BEAKER) (test lcvd=062) INTERPRETATION-119 (BEAKER) Polyclonal elevation of gamma (test wpqh=5977) fraction, suggestive of chronic inflammatory response. Serum JUDSON pending to evaluate for presence of small underlying monoclonal protein in this region. [id number] Barbie Mccollum MD (BEAKER) (test yexm=8656) (electronic signature) PROTEIN TOTAL SERUM, SPEP 6.7 gm/dL 6.0-8.3 (BEAKER) (test xavo=0799) IMMUNOFIXATION ELECTROPHORESIS (JUDSON)2018-03-19 17:31:00 Test Item Value Reference Range Comments IMMUNOGLOBULIN G (IGG) (BEAKER) 2008 mg/dL 540-1822 (test ciit=682) IMMUNOGLOBULIN A (IGA) (BEAKER) 37 mg/dL 63-484 (test zsrs=282) IMMUNOGLOBULIN M (IGM) (BEAKER) 673 mg/dL 22-293 (test ceob=047) SERUM JUDSON ID (BEAKER) (test No monoclonal proteins tndc=7920) detected. Polyclonal elevation of gamma globulins. QFRH-LRUZSOYPHEH-230 (BEBANNER) Barbie Mccollum MD (test jsez=7426) (electronic signature) ANTI-NUCLEAR ANTIBODY (SARAH)2018-03-19 10:18:00 Test Item Value Reference Range Comments ANTI-NUCLEAR ANTIBODY (SARAH) (BEAKER) (test Positive Negative fqxu=797) Test performed by IFA method.SARAH TITER AND [id number] 10:18:00 Test Item Value Reference Range Comments SARAH TITER (BEAKER) (test epxn=9387) >=:2560 SARAH PATTERN (BEAKER) (test jlhi=9366) Speckled FLOW [id number] 09:17:00Flow Cytometry Report Case: [id number] Authorizing Provider: Jordan Sultana MD Collected: 03/17/2018 1500 Ordering Location: [address] Med/Surg Received: 03/17/2018 1714 Pathologist: Doug [...] findings in the bone marrow biopsy report([id number]) .[id number] wf with h/o right breast ca s/p surgery and chemo xrt in 2013 found to have recurrence with extensive metastases, started on carboplatin and gemcitabine in October 2017, transferred from [facility] for management of MAHA with REJI.BONE MARROW ASPIRATECD8, surface-[place], CD56, surface-Lambda, CD5 , CD19, CD10, CD3, CD20, CD4, CD45, CD14, CD13, CD33, CD117, CD34, cKappa, cLambda, CD38, CU425Rkwikhtf Viability: 92.4% Number of Events Acquired: [id number] The following populations are identified: Blasts: the [...] their performance characteristics determined by [facility] They have not been cleared or approved by the U.S. Food and Drug Administration. The FDA has determined that such clearance or approval is not necessary. It should not be regarded as investigational or for research. This laboratory is certified under the Clinical Laboratory Improvement Amendments pk1338 ("CLIA") as qualified to perform high-complexity clinical testing.FLOW CYTOMETRY [id number] 09:16:00 Test Item Value Reference Range Comments FLOW CYTOMETRY RESULT POINTER (ADDY) See Separate Report (test wlqe=9285) FLOW CYTOMETRY AP CASE # (ADDY) (test [id number] nsbb=1089) BASIC METABOLIC [id number] 06:55:00 Test Item Value Reference Range Comments SODIUM (BEAKER) (test 131 meq/L 136-145 fhgx=243) POTASSIUM (BEAKER) (test 4.8 meq/L 3.5-5.1 karg=231) CHLORIDE (BEAKER) (test 93 meq/L 98-107 ploc=844) CO2 (BEAKER) (test 20 meq/L 22-29 pmgb=639) BLOOD UREA NITROGEN 99 mg/dL 7-21 (BEAKER) (test rykg=891) CREATININE (BEAKER) (test 4.97 mg/dL 0.57-1.25 fzzl=617) GLUCOSE RANDOM (BEAKER) 100 mg/dL 70-105 (test hatf=849) CALCIUM (BEAKER) (test 8.3 mg/dL 8.4-10.2 rpwe=191) EGFR (BEAKER) (test 9 mL/min/1.73 sq m ESTIMATED GFR IS NOT htso=2517) ACCURATE CREATININE CLEARANCE IN PREDICTING GLOMERULAR FILTRATION RATE. ESTIMATED GFR IS NOT APPLICABLE FOR DIALYSIS PATIENTS. [id number] 06:54:00 Test Item Value Reference Range Comments PHOSPHORUS (BEAKER) (test fsqn=739) 7.0 mg/dL 2.3-4.7 PTH, [id number] 06:42:00 Test Item Value Reference Range Comments PARATHYROID HORMONE INTACT (BEAKER) (test 690.0 pg/mL 8.5-72.5 oarg=364) VANCOMYCIN LEVEL, [id number] 06:33:00 Test Item Value Reference Range Comments VANCOMYCIN RANDOM (BEAKER) (test kher=219) 14.4 ug/mL Reference Range: No NormalsCBC (HEMOGRAM ONLY)2018-03-19 06:14:00 Test Item Value Reference Range Comments WHITE BLOOD CELL COUNT (BEAKER) (test tevj=831) 5.6 K/ L 3.5-10.5 RED BLOOD CELL COUNT (BEAKER) (test wfoh=971) 2.35 M/ L 3.93-5.22 HEMOGLOBIN (BEAKER) (test hotg=905) 7.6 GM/DL 11.2-15.7 HEMATOCRIT (BEAKER) (test xujh=454) 23.7 % 34.1-44.9 MEAN CORPUSCULAR VOLUME (BEAKER) (test lhwv=008) 100.9 fL 79.4-94.8 MEAN CORPUSCULAR HEMOGLOBIN (BEAKER) (test 32.3 pg 25.6-32.2 bjft=520) MEAN CORPUSCULAR HEMOGLOBIN CONC (BEAKER) (test 32.1 GM/DL 32.2-35.5 twqi=082) RED CELL DISTRIBUTION WIDTH (BEAKER) (test 23.4 % 11.7-14.4 nump=862) PLATELET COUNT (BEAKER) (test yfln=558) 61 K/CU MM 150-450 NUCLEATED RED BLOOD CELLS (BEAKER) (test 1 /100 WBC 0-0 mqpu=517) CBC W/PLT COUNT & AUTO [id number] 16:19:00 Test Item Value Reference Range Comments WHITE BLOOD CELL COUNT 5.0 K/ L 3.5-10.5 (BEAKER) (test ntne=787) RED BLOOD CELL COUNT (BEAKER) 2.35 M/ L 3.93-5.22 (test ltnf=857) HEMOGLOBIN (BEAKER) (test 7.6 GM/DL 11.2-15.7 apcz=758) HEMATOCRIT (BEAKER) (test 23.2 % 34.1-44.9 zbly=139) MEAN CORPUSCULAR VOLUME 98.7 fL 79.4-94.8 (BEAKER) (test cpvv=782) MEAN CORPUSCULAR HEMOGLOBIN 32.3 pg 25.6-32.2 (BEAKER) (test naez=581) MEAN CORPUSCULAR HEMOGLOBIN 32.8 GM/DL 32.2-35.5 CONC (BEAKER) (test cmgd=447) RED CELL DISTRIBUTION WIDTH 22.5 % 11.7-14.4 (BEAKER) (test cuah=229) PLATELET COUNT (BEAKER) (test 65 K/CU MM 150-450 qztx=421) MEAN PLATELET VOLUME (BEAKER) fL 9.4-12.3 Unable to report due to (test jzhu=794) abnormal Platelet population distribution. NUCLEATED RED BLOOD CELLS 1 /100 WBC 0-0 (BEAKER) (test csqs=643) NEUTROPHILS RELATIVE PERCENT 77 % (BEAKER) (test fgrd=920) LYMPHOCYTES RELATIVE PERCENT 13 % (BEAKER) (test wvcc=597) MONOCYTES RELATIVE PERCENT 9 % (BEAKER) (test tsne=909) EOSINOPHILS RELATIVE PERCENT 0 % (BEAKER) (test udux=524) BASOPHILS RELATIVE PERCENT 0 % (BEAKER) (test fdae=979) NEUTROPHILS ABSOLUTE COUNT 3.82 K/ L 1.56-6.13 (BEAKER) (test uygk=384) LYMPHOCYTES ABSOLUTE COUNT 0.62 K/ L 1.18-3.74 (BEAKER) (test vkus=564) MONOCYTES ABSOLUTE COUNT 0.46 K/ L 0.24-0.36 (BEAKER) (test lvyy=522) EOSINOPHILS ABSOLUTE COUNT 0.01 K/ L 0.04-0.36 (BEAKER) (test myqy=294) BASOPHILS ABSOLUTE COUNT 0.01 K/ L 0.01-0.08 (BEAKER) (test brfi=950) IMMATURE GRANULOCYTES-RELATIVE 1 % 0-1 PERCENT (BEAKER) (test apbc=8775) BASIC METABOLIC [id number] 16:10:00 Test Item Value Reference Range Comments SODIUM (BEAKER) (test 129 meq/L 136-145 ldwf=022) POTASSIUM (BEAKER) (test 4.8 meq/L 3.5-5.1 xqrm=629) CHLORIDE (BEAKER) (test 94 meq/L 98-107 augx=819) CO2 (BEAKER) (test 19 meq/L 22-29 ifuf=920) BLOOD UREA NITROGEN 88 mg/dL 7-21 (BEAKER) (test mgyi=775) CREATININE (BEAKER) (test 4.42 mg/dL 0.57-1.25 tghj=775) GLUCOSE RANDOM (BEAKER) 111 mg/dL 70-105 (test qfzb=820) CALCIUM (BEAKER) (test 8.4 mg/dL 8.4-10.2 rjcs=733) EGFR (BEAKER) (test 10 mL/min/1.73 sq m ESTIMATED GFR IS NOT osoh=7921) ACCURATE CREATININE CLEARANCE IN PREDICTING GLOMERULAR FILTRATION RATE. ESTIMATED GFR IS NOT APPLICABLE FOR DIALYSIS PATIENTS. [id number] 11:52:00 Test Item Value Reference Range Comments HAPTOGLOBIN (BEAKER) (test mrio=969) 34 mg/dL 14-258 PERIPHERAL BLOOD SMEAR - HOLD [id number] 10:25:00 Test Item Value Reference Range Comments PERIPHERAL SMEAR SAVE (BEAKER) (test qunp=6374) saved CALCIUM, [id number] 09:40:00 Test Item Value Reference Range Comments CALCIUM IONIZED (BEAKER) (test wqve=872) 0.94 mmol/L 1.12-1.27 PH, BLOOD (BEAKER) (test wjir=9053) 7.48 LACTATE DEHYDROGENASE (LDH)2018-03-18 09:27:00 Test Item Value Reference Range Comments LACTATE DEHYDROGENASE (BEAKER) (test yrqe=352) 599 U/L 125-220 CBC (HEMOGRAM ONLY)2018-03-18 09:27:00 Test Item Value Reference Range Comments WHITE BLOOD CELL COUNT (BEAKER) (test buft=412) 4.2 K/ L 3.5-10.5 RED BLOOD CELL COUNT (BEAKER) (test migp=033) 2.34 M/ L 3.93-5.22 HEMOGLOBIN (BEAKER) (test nokz=016) 7.4 GM/DL 11.2-15.7 HEMATOCRIT (BEAKER) (test fgcm=477) 22.8 % 34.1-44.9 MEAN CORPUSCULAR VOLUME (BEAKER) (test qydx=982) 97.4 fL 79.4-94.8 MEAN CORPUSCULAR HEMOGLOBIN (BEAKER) (test 31.6 pg 25.6-32.2 nfna=166) MEAN CORPUSCULAR HEMOGLOBIN CONC (BEAKER) (test 32.5 GM/DL 32.2-35.5 miin=886) RED CELL DISTRIBUTION WIDTH (BEAKER) (test 22.5 % 11.7-14.4 gdmo=821) PLATELET COUNT (BEAKER) (test yctl=622) 39 K/CU MM 150-450 NUCLEATED RED BLOOD CELLS (BEAKER) (test 1 /100 WBC 0-0 tirb=863) RETICULOCYTE [id number] 09:24:00 Test Item Value Reference Range Comments RETICULOCYTE COUNT PCT (BEAKER) (test yukr=727) 6.9 % 0.5-1.7 [id number] 09:16:00 Test Item Value Reference Range Comments D-DIMER QUANTITATIVE (BEAKER) (test ppsg=314) 3.18 MG/L FEU <0.50 Intended Use: The D-Dimer Assay can be used to aid in the diagnosis of Deep Vein Thrombosis (DVT) and Pulmonary Embolism Disease (PED).In patients with low pre-test probability, various studies concerning STA Liatest D-dimer test have reported that with a cutoff value of 0.50 MG/L FEU, the Negative Predictive Value (NPV) regarding the exclusion of thrombosis is within 95-100% range.[id number] 09:14:00 Test Item Value Reference Range Comments PARTIAL THROMBOPLASTIN TIME (BEAKER) (test 38.9 seconds 22.5-36.0 qbjq=345) PROTHROMBIN [id number] 09:13:00 Test Item Value Reference Range Comments PROTIME (BEAKER) (test quob=136) 15.3 seconds 11.7-14.7 INR (BEAKER) (test oftp=117) 1.2 <=5.9 RECOMMENDED COUMADIN/WARFARIN INR THERAPY RANGESSTANDARD DOSE: 2.0 - 3.0 Includes: PROPHYLAXIS forvenous thrombosis, systemic embolization; TREATMENT for venous thrombosis and/or pulmonary embolus.HIGH RISK: Target INR is 2.5-3.5 for patients with mechanical heart valves.BASIC METABOLIC [id number] 08:52: 00 Test Item Value Reference Range Comments SODIUM (BEAKER) (test 135 meq/L 136-145 ljvd=051) POTASSIUM (BEAKER) (test 4.9 meq/L 3.5-5.1 lcnv=992) CHLORIDE (BEAKER) (test 96 meq/L 98-107 yzfs=007) CO2 (BEAKER) (test 23 meq/L 22-29 qbvf=017) BLOOD UREA NITROGEN 77 mg/dL 7-21 (BEAKER) (test isln=802) CREATININE (BEAKER) (test 4.04 mg/dL 0.57-1.25 mzby=386) GLUCOSE RANDOM (BEAKER) 137 mg/dL 70-105 (test qaga=316) CALCIUM (BEAKER) (test 8.8 mg/dL 8.4-10.2 dlwo=533) EGFR (BEAKER) (test 12 mL/min/1.73 sq m ESTIMATED GFR IS NOT ulig=0171) ACCURATE CREATININE CLEARANCE IN PREDICTING GLOMERULAR FILTRATION RATE. ESTIMATED GFR IS NOT APPLICABLE FOR DIALYSIS PATIENTS. CALCIUM, [id number] 08:21:00 Test Item Value Reference Range Comments CALCIUM IONIZED (BEAKER) (test sktd=810) 0.72 mmol/L 1.12-1.27 PH, BLOOD (BEAKER) (test dbfc=9419) 7.46 OSMOLALITY, [id number] 07:36:00 Test Item Value Reference Range Comments OSMOLALITY URINE (BEAKER) (test etlv=741) 316 mOsm/kg 40-1400 OSMOLALITY, [id number] 07:34:00 Test Item Value Reference Range Comments OSMOLALITY, SERUM (BEAKER) (test qujl=893) 303 mOsm/kg 275-295 CREATININE, RANDOM [id number] 07:26:00 Test Item Value Reference Range Comments CREATININE URINE (BEAKER) (test ipie=151) 36.3 mg/dL Reference Range: No NormalsPOTASSIUM, RANDOM [id number] 07:26:00 Test Item Value Reference Range Comments POTASSIUM URINE (BEAKER) (test kjpn=046) 41.5 meq/L Reference Range: No NormalsSODIUM, RANDOM [id number] 07:26:00 Test Item Value Reference Range Comments SODIUM URINE (BEAKER) (test uuxp=152) 57 meq/L Reference Range: No NormalsUREA NITROGEN, RANDOM [id number] 07:26:00 Test Item Value Reference Range Comments UREA NITROGEN URINE (BEAKER) (test nsdq=525) 298 mg/dL Reference Range: No NormalsPERIPHERAL BLOOD SMEAR - HOLD [id number] 07:20:00 Test Item Value Reference Range Comments PERIPHERAL SMEAR SAVE (BEAKER) (test larj=3978) saved BASIC METABOLIC [id number] 06:08:00 Test Item Value Reference Range Comments SODIUM (BEAKER) (test 128 meq/L 136-145 dupf=716) POTASSIUM (BEAKER) (test 4.6 meq/L 3.5-5.1 dyzl=105) CHLORIDE (BEAKER) (test 94 meq/L 98-107 jteq=388) CO2 (BEAKER) (test 20 meq/L 22-29 qhnm=123) BLOOD UREA NITROGEN 84 mg/dL 7-21 (BEAKER) (test tnqu=471) CREATININE (BEAKER) (test 4.34 mg/dL 0.57-1.25 szxf=900) GLUCOSE RANDOM (BEAKER) 120 mg/dL 70-105 (test azck=457) CALCIUM (BEAKER) (test 6.8 mg/dL 8.4-10.2 fczq=004) EGFR (BEAKER) (test 11 mL/min/1.73 sq m ESTIMATED GFR IS NOT xokg=9494) ACCURATE CREATININE CLEARANCE IN PREDICTING GLOMERULAR FILTRATION RATE. ESTIMATED GFR IS NOT APPLICABLE FOR DIALYSIS PATIENTS. VANCOMYCIN LEVEL, [id number] 06:05:00 Test Item Value Reference Range Comments VANCOMYCIN RANDOM (JESSICAAKER) (test pfiy=966) < ug/mL Reference Range: No NormalsCALCIUM, [id number] 04:20:00 Test Item Value Reference Range Comments CALCIUM IONIZED (BEAKER) (test jfqp=792) 0.81 mmol/L 1.12-1.27 PH, BLOOD (BEAKER) (test snrv=9657) 7.40 Range 1.12 - [id number] 03:54:00 Test Item Value Reference Range Comments D-DIMER QUANTITATIVE (BEAKER) (test mqkk=490) 4.50 MG/L FEU <0.50 Intended Use: The D-Dimer Assay can be used to aid in the diagnosis of Deep Vein Thrombosis (DVT) and Pulmonary Embolism Disease (PED).In patients with low pre-test probability, various studies concerning STA Liatest D-dimer test have reported that with a cutoff value of 0.50 MG/L FEU, the Negative Predictive Value (NPV) regarding the exclusion of thrombosis is within 95-100% range.[id number] 02:58:00 Test Item Value Reference Range Comments PROCALCITONIN (JESSICAAKER) (test pbeb=2763) 8.65 ng/mL <0.05 SEPSIS RISK (ng/mL)Low: 0.05-0.50Intermediate: 0.51-2.00High: & gt;=2.01TROPONIN [id number] 02:29:00 Test Item Value Reference Range Comments TROPONIN I (BEAKER) (test ontm=198) 0.77 ng/mL 0.00-0.03 Troponin I (TnI) levels [...] acute neurological disease, and persistent tachyarrhythmia.COMPREHENSIVE METABOLIC [id number] 02:11:00 Test Item Value Reference Range Comments TOTAL PROTEIN (BEAKER) 6.8 gm/dL 6.0-8.3 (test zpql=662) ALBUMIN (BEAKER) (test 2.9 g/dL 3.5-5.0 cbrh=6677) ALKALINE PHOSPHATASE 100 U/L 40-150 (BEAKER) (test flve=329) BILIRUBIN TOTAL (BEAKER) 1.4 mg/dL 0.2-1.2 (test wfvg=554) SODIUM (BEAKER) (test 127 meq/L 136-145 qbtx=734) POTASSIUM (BEAKER) (test 5.0 meq/L 3.5-5.1 ofgv=150) CHLORIDE (BEAKER) (test 101 meq/L 98-107 gunk=436) CO2 (BEAKER) (test 15 meq/L 22-29 kggl=946) BLOOD UREA NITROGEN 87 mg/dL 7-21 (BEAKER) (test wnif=950) CREATININE (BEAKER) (test 4.62 mg/dL 0.57-1.25 ezyg=334) GLUCOSE RANDOM (BEAKER) 128 mg/dL 70-105 (test arck=902) CALCIUM (BEAKER) (test 6.9 mg/dL 8.4-10.2 yvxl=656) AST (SGOT) (BEAKER) (test 79 U/L 5-34 nygc=330) ALT (SGPT) (BEAKER) (test 45 U/L 6-55 gezg=540) EGFR (BEAKER) (test 10 mL/min/1.73 sq m ESTIMATED GFR IS NOT fepz=2872) ACCURATE CREATININE CLEARANCE IN PREDICTING GLOMERULAR FILTRATION RATE. ESTIMATED GFR IS NOT APPLICABLE FOR DIALYSIS PATIENTS. RAD, CHEST, 1 VIEW, NON [id number] 01:44:00Reason for exam:-> HEMODIALYSIS CATHTER PLACEMENTShould this [...] MDReport Verified Date/Time: 03/18/2018 01:44:10 Reading Location: [facility] C013Y CT Body Reading Room [id number] 01:37:00 Test Item Value Reference Range Comments FIBRINOGEN LEVEL (BEAKER) (test fyhi=176) 466 mg/dl 225-434 [id number] 01:37:00 Test Item Value Reference Range Comments PARTIAL THROMBOPLASTIN TIME (BEAKER) (test 33.6 seconds 22.5-36.0 drut=856) PROTHROMBIN [id number] 01:36:00 Test Item Value Reference Range Comments PROTIME (BEAKER) (test ubez=783) 17.0 seconds 11.7-14.7 INR (BEAKER) (test utmh=504) 1.4 <=5.9 RECOMMENDED COUMADIN/WARFARIN INR THERAPY RANGESSTANDARD DOSE: 2.0 - 3.0 Includes: PROPHYLAXIS forvenous thrombosis, systemic embolization; TREATMENT for venous thrombosis and/or pulmonary embolus.HIGH RISK: Target INR is 2.5-3.5 for patients with mechanical heart valves.LACTIC ACID, VENOUS, WHOLE [id number] 01:26:00 Test Item Value Reference Range Comments LACTATE BLOOD VENOUS (2) (BEAKER) (test 1.7 mmol/L 0.5-2.2 zhhl=8049) Effective 11/28/2015: Units/Reference Range ChangeNew: 0.5-2.2 mmol/L Previous: 5 -20 mg/dLCBC (HEMOGRAM ONLY)2018-03-18 01:16:00 Test Item Value Reference Range Comments WHITE BLOOD CELL COUNT (BEAKER) (test gbro=173) 4.3 K/ L 3.5-10.5 RED BLOOD CELL COUNT (BEAKER) (test pkoq=335) 2.67 M/ L 3.93-5.22 HEMOGLOBIN (BEAKER) (test bojq=519) 8.6 GM/DL 11.2-15.7 HEMATOCRIT (BEAKER) (test acne=346) 25.6 % 34.1-44.9 MEAN CORPUSCULAR VOLUME (BEAKER) (test gwve=888) 95.9 fL 79.4-94.8 MEAN CORPUSCULAR HEMOGLOBIN (BEAKER) (test 32.2 pg 25.6-32.2 yhyq=405) MEAN CORPUSCULAR HEMOGLOBIN CONC (BEAKER) (test 33.6 GM/DL 32.2-35.5 haln=560) RED CELL DISTRIBUTION WIDTH (BEAKER) (test 21.9 % 11.7-14.4 vkjg=814) PLATELET COUNT (BEAKER) (test lfdr=918) 39 K/CU MM 150-450 NUCLEATED RED BLOOD CELLS (BEAKER) (test 1 /100 WBC 0-0 iwqa=858) CT, BIOPSY, BONE [id number] 17:06:00Reason for exam:->pancytopenia in setting of metastatic breast cancer, chemotherapy held almost 2monthsFINAL REPORT PROCEDURE: CT-guided bone marrow biopsy DOSE REDUCTION: The examination was performed according to departmental dose- optimization program which includes automated exposure control, adjustment of the mA and/or kV according to patient size and/or use of iterative reconstruction technique. 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 Subsequently a core biopsy was obtained using the outer sheath. The needle and sheath were removed.Postprocedure CT evaluation of the area revealed no significant hematoma. Patient tolerated the procedure well and remained hemodynamically stable throughout. IMPRESSION: Successful and uncomplicated CT -guided bone marrow aspiration and core biopsy. Signed: Jordan Sultanaort Verified Date/Time: 03/17/2018 17:06:03 Reading Location: [facility] Radiology Reading Room 05: 06 PMBONE MARROW PROCESS ([facility]2018-03-17 15:16:00 Test Item Value Reference Range Comments ANATOMIC CASE# (JESSICATON) (test hdaa=5516) [id number] ORDERED BY DOCTOR# (ADDY) (test bjvl=5185) jordan Sultana m.d. PERFORMED BY DOCTOR# (ADDY) (test Jordan Sultana m.d. ugur=1127) CLOT RECEIVED? (BEAKER) (test zocr=4670) Yes BIOPSY RECEIVED? (BEAKER) (test irpl=2538) Yes CULTURE RECEIVED? (BEAKER) (test dcmz=6523) No FLOW RECEIVED? (BEAKER) (test qwac=6279) Yes CYTOGENICS? (BEAKER) (test zfem=8721) Yes MOLECULAR GENETICS? (ADDY) (test No ivkr=5398) RAD, CHEST, 2 [id number] 13:39:00Reason for exam:->sobFINAL REPORT Comparison: 15/08/2017 TECHNIQUE: 2 views of the chest FINDINGS: There is mild vascular congestion. There are small pleural effusions. Cardiac silhouette is enlarged.Left internal jugular chest port noted with tip at the cavoatrial junction. Surgical clips project over the right chest wall. Signed: Jordan Sultana MDReport Verified Date/Time: 03/17/2018 13:39:16 Reading Location: [facility] Radiology Reading Room [id number] 13:20:00 Test Item Value Reference Range Comments HAPTOGLOBIN (BEAKER) (test fphu=837) < mg/dL 14-258 COMPLEMENT COMPONENT [id number] 12:57:00 Test Item Value Reference Range Comments C4 COMPLEMENT (BEAKER) (test iybk=252) 22 mg/dL 15-57 COMPLEMENT COMPONENT [id number] 12:57:00 Test Item Value Reference Range Comments C3 COMPLEMENT (BEAKER) (test fuxc=119) 94 mg/dL 82-193 PERIPHERAL BLOOD SMEAR - PATHOLOGIST [id number] 09:47:00 Test Item Value Reference Range Comments PERIPHERAL SMR REVIEW Normochromic normocytic anemia (BEAKER) (test orfd=0572) with rare schistocytes seen (1-2/ HPF). WBCs normal in number and morphology. Thrombocytopenia with a few large forms. [id number] Michelle Yu M.D. (electronic (BEAKER) (test qpun=2473) signature) TROPONIN [id number] 07:07:00 Test Item Value Reference Range Comments TROPONIN I (BEAKER) (test kchi=651) 1.56 ng/mL 0.00-0.15 Troponin I (TnI) levels [...] acute neurological disease, and persistent tachyarrhythmia.BASIC METABOLIC [id number] 07:06:00 Test Item Value Reference Range Comments SODIUM (BEAKER) (test 131 meq/L 135-148 xurw=758) POTASSIUM (BEAKER) (test 5.8 meq/L 3.6-5.5 wyeg=542) CHLORIDE (BEAKER) (test 107 meq/L 98-106 mxcr=623) CO2 (BEAKER) (test 12 meq/L 20-29 pzvz=905) BLOOD UREA NITROGEN 74 mg/dL 10-26 (BEAKER) (test jaub=549) CREATININE (BEAKER) (test 3.95 mg/dL 0.50-1.20 rrru=676) GLUCOSE RANDOM (BEAKER) 133 mg/dL 70-110 (test ucnm=786) CALCIUM (BEAKER) (test 7.6 mg/dL 8.5-10.5 dczf=483) EGFR (BEAKER) (test 12 mL/min/1.73 sq m ESTIMATED GFR IS NOT qfex=5616) ACCURATE CREATININE CLEARANCE IN PREDICTING GLOMERULAR FILTRATION RATE. ESTIMATED GFR IS NOT APPLICABLE FOR DIALYSIS PATIENTS. [id number] 06:45:00 Test Item Value Reference Range Comments MAGNESIUM (BEAKER) (test hxxk=013) 2.0 mg/dL 1.5-3.0 CBC W/PLT COUNT & AUTO [id number] 06:35:00 Test Item Value Reference Range Comments WHITE BLOOD CELL COUNT (BEAKER) (test ldrq=240) 8.7 K/ L 4.0-10.0 RED BLOOD CELL COUNT (BEAKER) (test vqdx=448) 3.26 M/ L 4.00-5.00 HEMOGLOBIN (BEAKER) (test sldk=386) 10.2 GM/DL 12.0-15.5 HEMATOCRIT (BEAKER) (test pqzb=971) 31.9 % 36.0-46.0 MEAN CORPUSCULAR VOLUME (BEAKER) (test fdex=075) 97.9 fL 82.0-99.0 MEAN CORPUSCULAR HEMOGLOBIN (BEAKER) (test 31.3 pg 27.0-33.0 pybd=335) MEAN CORPUSCULAR HEMOGLOBIN CONC (BEAKER) (test 32.0 GM/DL 32.0-36.0 knls=207) RED CELL DISTRIBUTION WIDTH (BEAKER) (test 20.8 % 12.0-15.0 hchn=458) PLATELET COUNT (BEAKER) (test rtvb=682) 62 K/CU MM 150-430 MEAN PLATELET VOLUME (BEAKER) (test seps=273) 10.5 fL 6.0-11.5 NUCLEATED RED BLOOD CELLS (BEAKER) (test 0 /100 WBC 0-0 qqxj=694) NEUTROPHILS RELATIVE PERCENT (BEAKER) (test 80 % igrz=438) LYMPHOCYTES RELATIVE PERCENT (BEAKER) (test 11 % dmyq=516) MONOCYTES RELATIVE PERCENT (BEAKER) (test 8 % iyzl=371) EOSINOPHILS RELATIVE PERCENT (BEAKER) (test 0 % rmll=923) BASOPHILS RELATIVE PERCENT (BEAKER) (test 0 % rjvm=679) NEUTROPHILS ABSOLUTE COUNT (BEAKER) (test 6.95 K/ L 1.80-8.00 ykmm=717) LYMPHOCYTES ABSOLUTE COUNT (BEAKER) (test 0.92 K/ L 1.48-4.50 kqcc=351) MONOCYTES ABSOLUTE COUNT (BEAKER) (test gxsj=263) 0.72 K/ L 0.00-1.30 EOSINOPHILS ABSOLUTE COUNT (BEAKER) (test 0.00 K/ L 0.00-0.50 kvhd=986) BASOPHILS ABSOLUTE COUNT (BEAKER) (test tdiq=874) 0.01 K/ L 0.00-0.20 IMMATURE GRANULOCYTES-RELATIVE PERCENT (BEAKER) 1 % 0-0 (test byln=8759) BLOOD GAS, [id number] 05:27:00 Test Item Value Reference Range Comments PH ARTERIAL (BEAKER) (test nces=493) 7.40 7.35-7.45 PCO2 ARTERIAL (BEAKER) (test phjl=606) 18 mmHg 35-45 PO2 ARTERIAL (BEAKER) (test ncin=924) 72 mmHg 80-90 O2 SATURATION ARTERIAL (BEAKER) (test gbay=935) 94.7 % 96.0-97.0 HCO3 ARTERIAL (BEAKER) (test ebfi=844) 11 mmol/L 21-29 BASE EXCESS ARTERIAL (BEAKER) (test qobi=251) -12.0 mmol/L -2.0-3.0 PATIENT TEMPERATURE (BEAKER) (test vtao=5616) 37.5 C FIO2 (BEAKER) (test fjdy=4247) 28.0 % PROTEIN, RANDOM [id number] 00:47:00 Test Item Value Reference Range Comments PROTEIN, URINE (BEAKER) (test kolr=4881) 432 mg/dL 0-14 CREATININE, RANDOM [id number] 00:03:00 Test Item Value Reference Range Comments CREATININE URINE (BEAKER) (test qrts=321) 68.6 mg/dL Reference Range: No NormalsURINALYSIS W/ [id number] 23:56:00 Test Item Value Reference Range Comments COLOR (BEAKER) (test fhfh=417) Yellow CLARITY (BEAKER) (test gqfk=253) Clear SPECIFIC GRAVITY UA (BEAKER) (test pnvf=519) 1.020 1.001-1.035 PH UA (BEAKER) (test zytf=934) 5.5 5.0-8.0 PROTEIN UA (BEAKER) (test bztl=258) >=300 mg/dL Negative GLUCOSE UA (BEAKER) (test mwih=542) Negative Negative KETONES UA (BEAKER) (test eakq=625) Negative Negative BILIRUBIN UA (BEAKER) (test pdhc=120) Negative Negative BLOOD UA (BEAKER) (test cpgj=123) Large Negative NITRITE UA (BEAKER) (test rbhp=841) Negative Negative LEUKOCYTE ESTERASE UA (BEAKER) (test eamw=459) Trace Negative UROBILINOGEN UA (BEAKER) (test flov=480) 0.2 mg/dL 0.2-1.0 BACTERIA (BEAKER) (test mhcd=222) Occasional AMORPHOUS CRYSTALS (BEAKER) (test ekmq=6364) Few RBC UA-MANUAL (BEAKER) (test tzix=1559) 5-10 /HPF WBC UA-MANUAL (BEAKER) (test vfxn=3014) <5 /HPF SQUAMOUS EPITHELIAL MANUAL (BEAKER) (test 5-10 /HPF wztd=1884) GRANULAR CASTS MANUAL (BEAKER) (test umjz=2240) Few /LPF SOURCE(BEAKER) (test gzzm=1148) KETONE, [id number] 22:28:00 Test Item Value Reference Range Comments KETONES, BLOOD (BEAKER) (test gvaq=1694) 0.3 mmol/L <0.4 BILIRUBIN, TOTAL AND [id number] 22:17:00 Test Item Value Reference Range Comments BILIRUBIN TOTAL (BEAKER) (test lpeb=218) 2.1 mg/dL 0.1-1.2 BILIRUBIN DIRECT (BEAKER) (test jgso=476) 1.1 mg/dL 0.0-0.4 LACTATE DEHYDROGENASE (LDH)[id number] 22:16:00 Test Item Value Reference Range Comments LACTATE DEHYDROGENASE (BEAKER) (test isxj=738) 1540 U/L 107-206 TROPONIN [id number] 19:44:00 Test Item Value Reference Range Comments TROPONIN I (BEAKER) (test fusw=892) 0.24 ng/mL 0.00-0.15 Troponin I (TnI) levels [...] acidosis, acute neurological disease, and persistent tachyarrhythmia.TROPONIN [id number] 10:58:00 Test Item Value Reference Range Comments TROPONIN I (BEAKER) (test tode=962) 0.17 ng/mL 0.00-0.15 Troponin I (TnI) levels [...] and persistent tachyarrhythmia.CREATINE KINASE (CK), TOTAL AND [id number] 10:57:00 Test Item Value Reference Range Comments CREATINE KINASE TOTAL (BEAKER) (test puii=912) 125 U/L 25-235 CREATINE KINASE-MB (BEAKER) (test ardz=497) 0.9 ng/mL 0.0-4.9 CREATINE KINASE-MB INDEX (BEAKER) (test rumn=079) 0.7 % CK-MB Reference Range:<5 Normal5-10 Borderline>10 AbnormalCOMPREHENSIVE METABOLIC [id number] 10:53:00 Test Item Value Reference Range Comments TOTAL PROTEIN (BEAKER) 7.7 gm/dL 6.0-8.5 (test prqa=988) ALBUMIN (BEAKER) (test 3.4 g/dL 3.5-5.0 obqx=3196) ALKALINE PHOSPHATASE 45 U/L 30-115 (BEAKER) (test cjmh=367) BILIRUBIN TOTAL (BEAKER) 1.4 mg/dL 0.1-1.2 (test wivu=911) SODIUM (BEAKER) (test 132 meq/L 135-148 guow=912) POTASSIUM (BEAKER) (test 4.8 meq/L 3.6-5.5 yhgy=313) CHLORIDE (BEAKER) (test 106 meq/L 98-106 porf=771) CO2 (BEAKER) (test 13 meq/L 20-29 byxg=359) BLOOD UREA NITROGEN 63 mg/dL 10-26 (BEAKER) (test rslx=275) CREATININE (BEAKER) (test 3.73 mg/dL 0.50-1.20 qmom=367) GLUCOSE RANDOM (BEAKER) 94 mg/dL 70-110 (test zlnb=141) CALCIUM (BEAKER) (test 8.2 mg/dL 8.5-10.5 vufd=502) AST (SGOT) (BEAKER) (test 59 U/L 5-40 dqeh=972) ALT (SGPT) (BEAKER) (test 23 U/L 5-50 bgte=650) EGFR (BEAKER) (test 13 mL/min/1.73 sq m ESTIMATED GFR IS NOT lgty=6353) ACCURATE CREATININE CLEARANCE IN PREDICTING GLOMERULAR FILTRATION RATE. ESTIMATED GFR IS NOT APPLICABLE FOR DIALYSIS PATIENTS. URINALYSIS W/ [id number] 10:49:00 Test Item Value Reference Range Comments COLOR (BEAKER) (test vnjs=538) Yellow CLARITY (BEAKER) (test keif=520) Clear SPECIFIC GRAVITY UA (BEAKER) (test xfoh=085) 1.020 1.001-1.035 PH UA (BEAKER) (test jppk=303) 5.5 5.0-8.0 PROTEIN UA (BEAKER) (test hkij=232) >=300 mg/dL Negative GLUCOSE UA (BEAKER) (test bihl=323) Negative Negative KETONES UA (BEAKER) (test bdkc=940) Negative Negative BILIRUBIN UA (BEAKER) (test gmeg=600) Negative Negative BLOOD UA (BEAKER) (test xumu=811) Large Negative NITRITE UA (BEAKER) (test hkjc=407) Negative Negative LEUKOCYTE ESTERASE UA (BEAKER) (test dsvg=279) Negative Negative UROBILINOGEN UA (BEAKER) (test tewq=337) 0.2 mg/dL 0.2-1.0 BACTERIA (BEAKER) (test iopa=818) Few AMORPHOUS CRYSTALS (BEAKER) (test ndbp=9325) Moderate RBC UA-MANUAL (BEAKER) (test kakf=9135) 5-10 /HPF WBC UA-MANUAL (BEAKER) (test fwzy=0940) <5 /HPF SQUAMOUS EPITHELIAL MANUAL (BEAKER) (test 5-10 /HPF mqrw=0416) WAXY CASTS MANUAL (BEAKER) (test tqmg=4849) 5-10 /LPF SOURCE(BEAKER) (test mlfs=6823) CBC W/PLT COUNT & AUTO [id number] 10:49:00 Test Item Value Reference Range Comments WHITE BLOOD CELL COUNT (BEAKER) (test mvxm=785) 4.0 K/ L 4.0-10.0 RED BLOOD CELL COUNT (BEAKER) (test lxbb=026) 1.64 M/ L 4.00-5.00 HEMOGLOBIN (BEAKER) (test uvss=818) 5.5 GM/DL 12.0-15.5 HEMATOCRIT (BEAKER) (test frjc=314) 17.6 % 36.0-46.0 MEAN CORPUSCULAR VOLUME (BEAKER) (test mxex=779) 107.3 fL 82.0-99.0 MEAN CORPUSCULAR HEMOGLOBIN (BEAKER) (test 33.5 pg 27.0-33.0 zlzy=093) MEAN CORPUSCULAR HEMOGLOBIN CONC (BEAKER) (test 31.3 GM/DL 32.0-36.0 eddc=735) RED CELL DISTRIBUTION WIDTH (BEAKER) (test 23.5 % 12.0-15.0 ncze=240) PLATELET COUNT (BEAKER) (test rtzp=713) 66 K/CU MM 150-430 MEAN PLATELET VOLUME (BEAKER) (test hrdq=107) 11.3 fL 6.0-11.5 NUCLEATED RED BLOOD CELLS (BEAKER) (test 0 /100 WBC 0-0 jxck=941) NEUTROPHILS RELATIVE PERCENT (BEAKER) (test 81 % ryjy=391) LYMPHOCYTES RELATIVE PERCENT (BEAKER) (test 9 % oguc=764) MONOCYTES RELATIVE PERCENT (BEAKER) (test 9 % quhj=761) EOSINOPHILS RELATIVE PERCENT (BEAKER) (test 0 % qqii=968) BASOPHILS RELATIVE PERCENT (BEAKER) (test 0 % mvlk=318) NEUTROPHILS ABSOLUTE COUNT (BEAKER) (test 3.21 K/ L 1.80-8.00 gdsi=068) LYMPHOCYTES ABSOLUTE COUNT (BEAKER) (test 0.36 K/ L 1.48-4.50 thil=267) MONOCYTES ABSOLUTE COUNT (BEAKER) (test qooi=386) 0.34 K/ L 0.00-1.30 EOSINOPHILS ABSOLUTE COUNT (BEAKER) (test 0.01 K/ L 0.00-0.50 mvrs=349) BASOPHILS ABSOLUTE COUNT (BEAKER) (test qfxk=211) 0.00 K/ L 0.00-0.20 IMMATURE GRANULOCYTES-RELATIVE PERCENT (BEAKER) 1 % 0-0 (test vcjy=8930) (MANUAL DIFFERENTIAL)2018-03-16 10:49:00 Test Item Value Reference Range Comments TOTAL COUNTED (BEAKER) (test fpws=5993) WBC MORPHOLOGY (BEAKER) (test bpfk=845) Normal PLT MORPHOLOGY (BEAKER) (test rtxa=982) Normal SCHISTOCYTES (BEAKER) (test pcuy=355) 1+ few ANISOCYTOSIS (BEAKER) (test bslu=354) 1+ few MACROCYTES (BEAKER) (test qrcs=539) 1+ few MICROCYTES (BEAKER) (test hafz=233) 1+ few POIKILOCYTES (BEAKER) (test ikct=055) 1+ few POLYCHROMATOPHILLIC RBCS(BEAKER) (test dgqu=438) 1+ few [id number] 10:46:00 Test Item Value Reference Range Comments PROTIME (BEAKER) (test jwbv=248) 11.1 sec 9.3-12.0 INR (BEAKER) (test ztad=084) 1.0 <=5.9 PARTIAL THROMBOPLASTIN TIME (BEAKER) (test 31.0 sec 23.0-35.0 foqg=661) RECOMMENDED COUMADIN/WARFARIN INR THERAPY RANGESSTANDARD DOSE: 2.0 - 3.0 Includes: PROPHYLAXIS forvenous thrombosis, systemic embolization; TREATMENT for venous thrombosis and/or pulmonary embolus.HIGH RISK: Target INR is 2.5-3.5 for patients with mechanical heart valves.Final Information (Auto Output)Final Information (Auto Output)Final Information (Auto Output)LACTIC ACID, VENOUS, WHOLE [id number] 10:45:00 Test Item Value Reference Range Comments LACTATE BLOOD VENOUS (2) (BEAKER) (test 2.2 mmol/L 0.5-2.2 sqin=7903) Effective 11/28/2015: Units/Reference Range ChangeNew: 0.5-2.2 mmol/L Previous: 5 -18 mg/dLRAD, CHEST, 1 VIEW, NON [id number] 10:14:00Reason for exam:-> chest painIs the patient [...] HOSPITAL Radiology Reading Room 10: 14 AMBLOOD [id number] 22:01:00 Test Item Value Reference Range Comments CULTURE (BEAKER) (test rhta=1480) No growth in 5 days BLOOD [id number] 22:01:00 Test Item Value Reference Range Comments CULTURE (BEAKER) (test vjaf=7874) No growth in 5 days RESPIRATORY PANEL [id number] 09:21:00 Test Item Value Reference Range Comments HUMAN METAPNEUMOVIRUS (BEAKER) (test Not detected Not detected, Inconclusive sdyu=9873) RHINOVIRUS (BEAKER) (test pjsp=5675) Not detected Not detected, Inconclusive INFLUENZA A (BEAKER) (test Not detected Not detected, Inconclusive ogym=7008) INFLUENZA A SUBTYPE H1 (BEAKER) Not detected Not detected, Inconclusive (test ring=7358) INFLUENZA A SUBTYPE H3 (BEAKER) Not detected Not detected, Inconclusive (test rwmm=4673) INFLUENZA A SUBTYPE H1-2009 (BEAKER) Not detected Not detected, Inconclusive (test zymh=8922) INFLUENZA B (BEAKER) (test Not detected Not detected, Inconclusive wwdt=4873) RESPIRATORY SYNCYTIAL VIRUS (BEAKER) Not detected Not detected, Inconclusive (test jqpm=0191) PARAINFLUENZA VIRUS 1 (BEAKER) (test Not detected Not detected, Inconclusive rbvr=0053) PARAINFLUENZA VIRUS 2 (BEAKER) (test Not detected Not detected, Inconclusive uwyy=2078) PARAINFLUENZA VIRUS 3 (BEAKER) (test Not detected Not detected, Inconclusive xbpd=2219) PARAINFLUENZA VIRUS 4 (BEAKER) (test Not detected Not detected, Inconclusive gcld=1125) ADENOVIRUS (BEAKER) (test zyrk=6334) Not detected Not detected, Inconclusive CORONAVIRUS 229E (BEAKER) (test Not detected Not detected, Inconclusive xxwp=8468) CORONAVIRUS HKU1 (BEAKER) (test Not detected Not detected, Inconclusive wfcp=6058) CORONAVIRUS NL63 (BEAKER) (test Not detected Not detected, Inconclusive oyfz=5264) CORONAVIRUS OC43 (BEAKER) (test Not detected Not detected, Inconclusive wvec=6106) BORDETELLA PERTUSSIS (BEAKER) (test Not detected Not detected, Inconclusive uelq=5361) CHLAMYDOPHILA PNEUMONIAE (BEAKER) Not detected Not detected, Inconclusive (test hmps=9381) MYCOPLASMA PNEUMONIAE (BEAKER) (test Not detected Not detected, Inconclusive mszi=5334) VANCOMYCIN LEVEL, [id number] 07:38:00 Test Item Value Reference Range Comments VANCOMYCIN TROUGH (BEAKER) (test gqsd=626) 11.7 ug/mL 10.0-20.0 URINE [id number] 08:56:00 Test Item Value Reference Range Comments CULTURE (BEAKER) (test xhcs=0817) No growth CBC W/PLT COUNT & AUTO [id number] 06:39:00 Test Item Value Reference Range Comments WHITE BLOOD CELL COUNT (BEAKER) (test sycu=381) 2.4 K/ L 4.0-10.0 RED BLOOD CELL COUNT (BEAKER) (test ghic=395) 2.56 M/ L 4.00-5.00 HEMOGLOBIN (BEAKER) (test zdzn=520) 8.4 GM/DL 12.0-15.0 HEMATOCRIT (BEAKER) (test nvcm=782) 24.6 % 36.0-45.0 MEAN CORPUSCULAR VOLUME (BEAKER) (test hzyi=624) 96.4 fL 82.0-99.0 MEAN CORPUSCULAR HEMOGLOBIN (BEAKER) (test 33.0 pg 27.0-33.0 ivwf=335) MEAN CORPUSCULAR HEMOGLOBIN CONC (BEAKER) (test 34.2 GM/DL 32.0-36.0 hfxd=344) RED CELL DISTRIBUTION WIDTH (BEAKER) (test 19.7 % 10.3-14.2 jdyi=585) PLATELET COUNT (BEAKER) (test jkdw=881) 108 K/CU MM 150-430 MEAN PLATELET VOLUME (BEAKER) (test gybx=974) 8.8 fL 6.5-10.5 NUCLEATED RED BLOOD CELLS (BEAKER) (test 0 /100 WBC 0-0 gjif=380) (MANUAL DIFFERENTIAL)2017-12-10 06:39:00 Test Item Value Reference Range Comments NEUTROPHILS - REL (DIFF) (BEAKER) (test ococ=2986) 83 % LYMPHOCYTES - REL (DIFF) (BEAKER) (test ygob=1439) 15 % MONOCYTES - REL (DIFF) (BEAKER) (test slhp=8612) 2 % NEUTROPHILS - ABS (DIFF) (BEAKER) (test ulzo=2691) 1.99 K/ L 1.80-8.00 LYMPHOCYTES - ABS (DIFF) (BEAKER) (test ypjr=5882) 0.36 K/ L 1.48-4.50 MONOCYTES - ABS (DIFF) (BEAKER) (test nnlx=0362) 0.05 K/ L 0.00-1.30 TOTAL COUNTED (BEAKER) (test bijw=8979) 100 WBC MORPHOLOGY (BEAKER) (test ouxs=375) Normal PLT MORPHOLOGY (BEAKER) (test ymqg=504) Normal RBC MORPHOLOGY (BEAKER) (test qeuw=337) Normal POCT-GLUCOSE [id number] 14:39:00 Test Item Value Reference Range Comments POC-GLUCOSE METER (BEAKER) 125 mg/dL 70-110 TESTED AT [address] (test woxc=3118) [facility] [address] CBC W/PLT COUNT & AUTO [id number] 06:47:00 Test Item Value Reference Range Comments WHITE BLOOD CELL COUNT (BEAKER) (test 2.2 K/ L 4.0-10.0 affs=638) RED BLOOD CELL COUNT (BEAKER) (test 2.72 M/ L 4.00-5.00 auaw=467) HEMOGLOBIN (BEAKER) (test acdi=003) 9.1 GM/DL 12.0-15.0 HEMATOCRIT (BEAKER) (test fzle=732) 26.2 % 36.0-45.0 MEAN CORPUSCULAR VOLUME (BEAKER) (test 96.3 fL 82.0-99.0 bpfe=083) MEAN CORPUSCULAR HEMOGLOBIN (BEAKER) 33.3 pg 27.0-33.0 (test qefw=205) MEAN CORPUSCULAR HEMOGLOBIN CONC 34.5 GM/DL 32.0-36.0 (BEAKER) (test aasg=714) RED CELL DISTRIBUTION WIDTH (BEAKER) 18.3 % 10.3-14.2 (test jcxc=651) PLATELET COUNT (BEAKER) (test ciwu=786) 129 K/CU MM 150-430 No clot detected MEAN PLATELET VOLUME (BEAKER) (test 7.8 fL 6.5-10.5 abgy=471) NEUTROPHILS RELATIVE PERCENT (BEAKER) 81 % (test wglm=796) LYMPHOCYTES RELATIVE PERCENT (BEAKER) 14 % (test xevv=035) MONOCYTES RELATIVE PERCENT (BEAKER) 4 % (test vchd=852) EOSINOPHILS RELATIVE PERCENT (BEAKER) 0 % (test fsum=340) BASOPHILS RELATIVE PERCENT (BEAKER) 0 % (test nbim=627) NEUTROPHILS ABSOLUTE COUNT (BEAKER) 1.80 K/ L 1.80-8.00 (test zfhe=938) LYMPHOCYTES ABSOLUTE COUNT (BEAKER) 0.30 K/ L 1.48-4.50 (test qjxs=639) MONOCYTES ABSOLUTE COUNT (BEAKER) (test 0.10 K/ L 0.00-1.30 pvyn=668) EOSINOPHILS ABSOLUTE COUNT (BEAKER) 0.00 K/ L 0.00-0.50 (test mjhy=381) BASOPHILS ABSOLUTE COUNT (BEAKER) (test 0.00 K/ L 0.00-0.20 yzzx=103) BASIC METABOLIC [id number] 05:54:00 Test Item Value Reference Range Comments SODIUM (BEAKER) (test 138 meq/L 135-148 frqn=670) POTASSIUM (BEAKER) (test 3.9 meq/L 3.6-5.5 wvtc=948) CHLORIDE (BEAKER) (test 105 meq/L 98-106 wajn=127) CO2 (BEAKER) (test 26 meq/L 20-29 nvba=865) BLOOD UREA NITROGEN 14 mg/dL 10-26 (BEAKER) (test ptqo=862) CREATININE (BEAKER) (test 0.76 mg/dL 0.50-1.20 xttd=662) GLUCOSE RANDOM (BEAKER) 84 mg/dL 70-110 (test vznz=092) CALCIUM (BEAKER) (test 8.2 mg/dL 8.5-10.5 kycs=196) EGFR (BEAKER) (test 80 mL/min/1.73 sq m ESTIMATED GFR IS NOT gmzt=7787) ACCURATE CREATININE CLEARANCE IN PREDICTING GLOMERULAR FILTRATION RATE. ESTIMATED GFR IS NOT APPLICABLE FOR DIALYSIS PATIENTS. RAD, CHEST, 2 [id number] 19:36:00Reason for exam:->FEVERIs the patient ?->NoShould this [...] MDReport Verified Date/Time: 12/08/2017 19:36:34 Reading Location: [facility] B1 [id number] Consult Reading Room URINALYSIS W/ [id number] 19:33:00 Test Item Value Reference Range Comments COLOR (BEAKER) (test ctsy=791) Yellow CLARITY (BEAKER) (test jhrx=024) Clear SPECIFIC GRAVITY UA (BEAKER) (test kxhn=404) <= 1.001-1.035 PH UA (BEAKER) (test qnhm=093) 5.5 5.0-8.0 PROTEIN UA (BEAKER) (test zoco=409) Negative Negative GLUCOSE UA (BEAKER) (test bata=977) Negative Negative KETONES UA (BEAKER) (test zmdi=232) Negative Negative BILIRUBIN UA (BEAKER) (test mdjd=461) Negative Negative BLOOD UA (BEAKER) (test zrij=186) Negative Negative NITRITE UA (BEAKER) (test ndpk=453) Negative Negative LEUKOCYTE ESTERASE UA (BEAKER) (test gzul=955) Negative Negative UROBILINOGEN UA (BEAKER) (test qsyg=509) 0.2 mg/dL 0.2-1.0 BACTERIA (BEAKER) (test muvg=529) Occasional RBC UA-MANUAL (BEAKER) (test hibg=3211) <5 /HPF WBC UA-MANUAL (BEAKER) (test wffh=9323) <5 /HPF SQUAMOUS EPITHELIAL MANUAL (BEAKER) (test <5 /HPF ctkb=5234) SOURCE(BEAKER) (test edbd=4960) COMPREHENSIVE METABOLIC [id number] 19:01:00 Test Item Value Reference Range Comments TOTAL PROTEIN (BEAKER) 8.1 gm/dL 6.0-8.5 (test rakb=576) ALBUMIN (BEAKER) (test 4.1 g/dL 3.5-5.0 olbs=4302) ALKALINE PHOSPHATASE 75 U/L 30-115 (BEAKER) (test cvju=288) BILIRUBIN TOTAL (BEAKER) 0.6 mg/dL 0.1-1.2 (test zvxv=789) SODIUM (BEAKER) (test 132 meq/L 135-148 nmpr=341) POTASSIUM (BEAKER) (test 3.6 meq/L 3.6-5.5 ncuj=345) CHLORIDE (BEAKER) (test 97 meq/L 98-106 muqw=540) CO2 (BEAKER) (test 23 meq/L 20-29 yfik=553) BLOOD UREA NITROGEN 18 mg/dL 10-26 (BEAKER) (test sgeb=152) CREATININE (BEAKER) (test 1.02 mg/dL 0.50-1.20 iaoi=658) GLUCOSE RANDOM (BEAKER) 102 mg/dL 70-110 (test hoeb=633) CALCIUM (BEAKER) (test 8.6 mg/dL 8.5-10.5 bzvl=122) AST (SGOT) (BEAKER) (test 38 U/L 5-40 mhlb=771) ALT (SGPT) (BEAKER) (test 49 U/L 5-50 yqgf=607) EGFR (BEAKER) (test 57 mL/min/1.73 sq m ESTIMATED GFR IS NOT aszh=5183) ACCURATE CREATININE CLEARANCE IN PREDICTING GLOMERULAR FILTRATION RATE. ESTIMATED GFR IS NOT APPLICABLE FOR DIALYSIS PATIENTS. LACTIC ACID, VENOUS, WHOLE [id number] 18:53:00 Test Item Value Reference Range Comments LACTATE BLOOD VENOUS (2) (BEAKER) (test 0.8 mmol/L 0.5-2.2 kkmc=2955) Effective 11/28/2015: Units/Reference Range ChangeNew: 0.5-2.2 mmol/L Previous: 5 -18 mg/dLCBC W/PLT COUNT & AUTO [id number] 18:36:00 Test Item Value Reference Range Comments WHITE BLOOD CELL COUNT (BEAKER) (test mpfy=839) 3.5 K/ L 4.0-10.0 RED BLOOD CELL COUNT (BEAKER) (test ggnc=726) 2.95 M/ L 4.00-5.00 HEMOGLOBIN (BEAKER) (test mjzo=207) 9.7 GM/DL 12.0-15.0 HEMATOCRIT (BEAKER) (test gooz=660) 28.5 % 36.0-45.0 MEAN CORPUSCULAR VOLUME (BEAKER) (test gxnv=110) 96.6 fL 82.0-99.0 MEAN CORPUSCULAR HEMOGLOBIN (BEAKER) (test 32.9 pg 27.0-33.0 lnox=141) MEAN CORPUSCULAR HEMOGLOBIN CONC (BEAKER) (test 34.0 GM/DL 32.0-36.0 ajsb=940) RED CELL DISTRIBUTION WIDTH (BEAKER) (test 18.5 % 10.3-14.2 kfht=628) PLATELET COUNT (BEAKER) (test vcib=514) 187 K/CU MM 150-430 MEAN PLATELET VOLUME (BEAKER) (test mvdp=971) 7.8 fL 6.5-10.5 NEUTROPHILS RELATIVE PERCENT (BEAKER) (test 84 % crrd=285) LYMPHOCYTES RELATIVE PERCENT (BEAKER) (test 10 % tajz=877) MONOCYTES RELATIVE PERCENT (BEAKER) (test 5 % lpcu=069) EOSINOPHILS RELATIVE PERCENT (BEAKER) (test 0 % gphq=505) BASOPHILS RELATIVE PERCENT (BEAKER) (test 0 % kpuv=308) NEUTROPHILS ABSOLUTE COUNT (BEAKER) (test 2.90 K/ L 1.80-8.00 vxzc=702) LYMPHOCYTES ABSOLUTE COUNT (BEAKER) (test 0.40 K/ L 1.48-4.50 hump=426) MONOCYTES ABSOLUTE COUNT (BEAKER) (test 0.20 K/ L 0.00-1.30 tbes=739) EOSINOPHILS ABSOLUTE COUNT (BEAKER) (test 0.00 K/ L 0.00-0.50 cgys=378) BASOPHILS ABSOLUTE COUNT (BEAKER) (test 0.00 K/ L 0.00-0.20 feeq=244) BLOOD [id number] 13:00:00 Test Item Value Reference Range Comments CULTURE (BEAKER) (test ijel=0608) No growth in 5 days BLOOD [id number] 10:00:00 Test Item Value Reference Range Comments CULTURE (BEAKER) (test oqlw=2165) No growth in 5 days VANCOMYCIN LEVEL, [id number] 14:26:00 Test Item Value Reference Range Comments VANCOMYCIN TROUGH (BEAKER) (test xpek=698) 9.8 ug/mL 10.0-20.0 VANCOMYCIN DOSING BY RX PER DR. Kowalski PRIOR TO 4th DOSE ON 10/22/17 AT13: 30URINE [id number] 08:16:00 Test Item Value Reference Range Comments CULTURE (BEAKER) (test xenh=9405) No growth (MANUAL DIFFERENTIAL)2017-10-22 07:06:00 Test Item Value Reference Range Comments NEUTROPHILS - REL (DIFF) (BEAKER) (test amgr=0616) 69 % LYMPHOCYTES - REL (DIFF) (BEAKER) (test tzoy=0224) 27 % MONOCYTES - REL (DIFF) (BEAKER) (test kirg=1810) 4 % NEUTROPHILS - ABS (DIFF) (BEAKER) (test eqsg=8669) 1.52 K/ L 1.80-8.00 LYMPHOCYTES - ABS (DIFF) (BEAKER) (test igen=2988) 0.59 K/ L 1.48-4.50 MONOCYTES - ABS (DIFF) (BEAKER) (test bnps=1885) 0.09 K/ L 0.00-1.30 TOTAL COUNTED (BEAKER) (test ygqe=9115) 100 WBC MORPHOLOGY (BEAKER) (test qzcm=631) Normal PLT MORPHOLOGY (BEAKER) (test ebob=550) Normal RBC MORPHOLOGY (BEAKER) (test woyx=835) Normal COMPREHENSIVE METABOLIC [id number] 06:39:00 Test Item Value Reference Range Comments TOTAL PROTEIN (BEAKER) 6.8 gm/dL 6.0-8.5 (test dvds=832) ALBUMIN (BEAKER) (test 3.7 g/dL 3.5-5.0 neiz=9583) ALKALINE PHOSPHATASE 111 U/L 30-115 (BEAKER) (test fyis=073) BILIRUBIN TOTAL (BEAKER) 0.3 mg/dL 0.1-1.2 (test jypx=326) SODIUM (BEAKER) (test 138 meq/L 135-148 xovt=814) POTASSIUM (BEAKER) (test 3.9 meq/L 3.6-5.5 blgz=128) CHLORIDE (BEAKER) (test 102 meq/L 98-106 hyyc=978) CO2 (BEAKER) (test 28 meq/L 20-29 firn=426) BLOOD UREA NITROGEN 9 mg/dL 10-26 (BEAKER) (test iykq=834) CREATININE (BEAKER) (test 0.70 mg/dL 0.50-1.20 hysz=215) GLUCOSE RANDOM (BEAKER) 85 mg/dL 70-110 (test anmw=644) CALCIUM (BEAKER) (test 9.1 mg/dL 8.5-10.5 qxxn=885) AST (SGOT) (BEAKER) (test 141 U/L 5-40 vjfh=818) ALT (SGPT) (BEAKER) (test 276 U/L 5-50 xpmt=458) EGFR (BEAKER) (test 88 mL/min/1.73 sq m ESTIMATED GFR IS NOT fcvr=9278) ACCURATE CREATININE CLEARANCE IN PREDICTING GLOMERULAR FILTRATION RATE. ESTIMATED GFR IS NOT APPLICABLE FOR DIALYSIS PATIENTS. CBC W/PLT COUNT & AUTO [id number] 06:22:00 Test Item Value Reference Range Comments WHITE BLOOD CELL COUNT (BEAKER) (test oyie=282) 2.2 K/ L 4.0-10.0 RED BLOOD CELL COUNT (BEAKER) (test yrjx=183) 3.12 M/ L 4.00-5.00 HEMOGLOBIN (BEAKER) (test mont=128) 9.7 GM/DL 12.0-15.0 HEMATOCRIT (BEAKER) (test rtsr=274) 28.5 % 36.0-45.0 MEAN CORPUSCULAR VOLUME (BEAKER) (test kyli=152) 91.2 fL 82.0-99.0 MEAN CORPUSCULAR HEMOGLOBIN (BEAKER) (test 31.2 pg 27.0-33.0 gjtr=280) MEAN CORPUSCULAR HEMOGLOBIN CONC (BEAKER) (test 34.2 GM/DL 32.0-36.0 fyuc=359) RED CELL DISTRIBUTION WIDTH (BEAKER) (test 12.4 % 10.3-14.2 ldtp=791) PLATELET COUNT (BEAKER) (test wouk=281) 173 K/CU MM 150-430 MEAN PLATELET VOLUME (BEAKER) (test mche=956) 7.6 fL 6.5-10.5 NUCLEATED RED BLOOD CELLS (BEAKER) (test 0 /100 WBC 0-0 oloz=779) HEPATIC FUNCTION [id number] 16:17:00 Test Item Value Reference Range Comments TOTAL PROTEIN (BEAKER) (test theo=508) 6.3 gm/dL 6.0-8.5 ALBUMIN (BEAKER) (test lael=6562) 3.5 g/dL 3.5-5.0 BILIRUBIN TOTAL (BEAKER) (test afiv=831) 0.3 mg/dL 0.1-1.2 BILIRUBIN DIRECT (BEAKER) (test rhrt=623) 0.2 mg/dL 0.0-0.4 ALKALINE PHOSPHATASE (BEAKER) (test wlnx=619) 106 U/L 30-115 AST (SGOT) (BEAKER) (test hqeu=967) 208 U/L 5-40 ALT (SGPT) (BEAKER) (test atkc=337) 286 U/L 5-50 CBC W/PLT COUNT & AUTO [id number] 06:13:00 Test Item Value Reference Range Comments WHITE BLOOD CELL COUNT (BEAKER) (test lssf=253) 2.9 K/ L 4.0-10.0 RED BLOOD CELL COUNT (BEAKER) (test ovat=724) 3.10 M/ L 4.00-5.00 HEMOGLOBIN (BEAKER) (test byyj=128) 9.7 GM/DL 12.0-15.0 HEMATOCRIT (BEAKER) (test jeyb=512) 28.3 % 36.0-45.0 MEAN CORPUSCULAR VOLUME (BEAKER) (test fdbr=611) 91.2 fL 82.0-99.0 MEAN CORPUSCULAR HEMOGLOBIN (BEAKER) (test 31.2 pg 27.0-33.0 yhsi=558) MEAN CORPUSCULAR HEMOGLOBIN CONC (BEAKER) (test 34.3 GM/DL 32.0-36.0 agqk=335) RED CELL DISTRIBUTION WIDTH (BEAKER) (test 12.3 % 10.3-14.2 izmw=102) PLATELET COUNT (BEAKER) (test mymo=922) 178 K/CU MM 150-430 MEAN PLATELET VOLUME (BEAKER) (test aoid=473) 7.5 fL 6.5-10.5 NUCLEATED RED BLOOD CELLS (BEAKER) (test 0 /100 WBC 0-0 asrg=053) (MANUAL DIFFERENTIAL)2017-10-21 06:13:00 Test Item Value Reference Range Comments NEUTROPHILS - REL (DIFF) (BEAKER) (test gvwj=1153) 76 % LYMPHOCYTES - REL (DIFF) (BEAKER) (test wyjk=8906) 16 % MONOCYTES - REL (DIFF) (BEAKER) (test spqk=2507) 5 % BANDS - REL (DIFF) (BEAKER) (test gcmp=6575) 3 % 0-10 NEUTROPHILS - ABS (DIFF) (BEAKER) (test hcim=0621) 2.20 K/ L 1.80-8.00 LYMPHOCYTES - ABS (DIFF) (BEAKER) (test lume=0710) 0.46 K/ L 1.48-4.50 MONOCYTES - ABS (DIFF) (BEAKER) (test upfm=0067) 0.15 K/ L 0.00-1.30 BANDS-ABS (DIFF) (BEAKER) (test tnwu=4067) 0.1 K/ L 0.0-0.8 TOTAL COUNTED (BEAKER) (test mmdb=7955) 100 BANDS + SEGMENTED NEUTROPHILS (BEAKER) (test 2.29 tlnr=7412) WBC MORPHOLOGY (BEAKER) (test siyo=866) Normal PLT MORPHOLOGY (BEAKER) (test ovge=985) Normal RBC MORPHOLOGY (BEAKER) (test vnhq=516) Normal BASIC METABOLIC [id number] 05:25:00 Test Item Value Reference Range Comments SODIUM (BEAKER) (test 139 meq/L 135-148 ngnv=893) POTASSIUM (BEAKER) (test 3.7 meq/L 3.6-5.5 fweo=924) CHLORIDE (BEAKER) (test 104 meq/L 98-106 dgyx=198) CO2 (BEAKER) (test 27 meq/L 20-29 icub=128) BLOOD UREA NITROGEN 12 mg/dL 10-26 (BEAKER) (test cmps=890) CREATININE (BEAKER) (test 0.80 mg/dL 0.50-1.20 xzeu=856) GLUCOSE RANDOM (BEAKER) 77 mg/dL 70-110 (test wgmn=698) CALCIUM (BEAKER) (test 8.5 mg/dL 8.5-10.5 zwat=927) EGFR (BEAKER) (test 75 mL/min/1.73 sq m ESTIMATED GFR IS NOT vlko=3904) ACCURATE CREATININE CLEARANCE IN PREDICTING GLOMERULAR FILTRATION RATE. ESTIMATED GFR IS NOT APPLICABLE FOR DIALYSIS PATIENTS. CT, BRAIN, WITHOUT [id number] 17:12:00Reason for exam:->headacheIs the patient ?->NoWhat is [...] hydrocephalus. Acute sphenoid sinusitis. Signed: Hailey Lucas [facility] Verified Date/Time: 10/20/2017 17:12:46 Reading Location: [facility] Radiology Reading Room Electronically signed by: HAILEY LUCAS M.D. on 05:12 PMCT, [id number] 09:17:00Reason for exam:->fever, constipation, abd discomfortIs the [...] MDReport Verified Date/Time: 10/20/2017 09:17:32 Reading Location: [facility] [id number] Ortho Consult Reading Room RAD, CHEST, 2 [id number] 08:54:00Reason for exam:->FEVERFINAL REPORT Chest two views [...] MDReport Verified Date/Time: 2017 08:54:43 Reading Location: [facility] Radiology Reading Room HEPATIC FUNCTION [id number] 08:27:00 Test Item Value Reference Range Comments TOTAL PROTEIN (BEAKER) (test leep=406) 8.1 gm/dL 6.0-8.5 ALBUMIN (BEAKER) (test ptkk=7325) 4.4 g/dL 3.5-5.0 BILIRUBIN TOTAL (BEAKER) (test tarx=064) 0.4 mg/dL 0.1-1.2 BILIRUBIN DIRECT (BEAKER) (test rovi=539) 0.2 mg/dL 0.0-0.4 ALKALINE PHOSPHATASE (BEAKER) (test iavw=778) 128 U/L 30-115 AST (SGOT) (BEAKER) (test miqo=259) 88 U/L 5-40 ALT (SGPT) (BEAKER) (test dnth=125) 281 U/L 5-50 [id number] 08:24:00 Test Item Value Reference Range Comments LIPASE (BEAKER) (test atrq=711) 42 U/L 6-51 BASIC METABOLIC [id number] 08:21:00 Test Item Value Reference Range Comments SODIUM (BEAKER) (test 133 meq/L 135-148 etdu=017) POTASSIUM (BEAKER) (test 4.1 meq/L 3.6-5.5 vrkp=117) CHLORIDE (BEAKER) (test 97 meq/L 98-106 rtco=333) CO2 (BEAKER) (test 26 meq/L 20-29 pqgz=829) BLOOD UREA NITROGEN 17 mg/dL 10-26 (BEAKER) (test ostf=756) CREATININE (BEAKER) (test 1.00 mg/dL 0.50-1.20 vjwe=103) GLUCOSE RANDOM (BEAKER) 99 mg/dL 70-110 (test zgif=079) CALCIUM (BEAKER) (test 9.3 mg/dL 8.5-10.5 lxlj=483) EGFR (BEAKER) (test 58 mL/min/1.73 sq m ESTIMATED GFR IS NOT guva=2045) ACCURATE CREATININE CLEARANCE IN PREDICTING GLOMERULAR FILTRATION RATE. ESTIMATED GFR IS NOT APPLICABLE FOR DIALYSIS PATIENTS. LACTIC ACID, VENOUS, WHOLE [id number] 08:15:00 Test Item Value Reference Range Comments LACTATE BLOOD VENOUS (2) (BEAKER) (test 1.1 mmol/L 0.5-2.2 nhqp=1290) Effective 11/28/2015: Units/Reference Range ChangeNew: 0.5-2.2 mmol/L Previous: 5 -18 mg/dLCBC W/PLT COUNT & AUTO [id number] 08:11:00 Test Item Value Reference Range Comments WHITE BLOOD CELL COUNT (BEAKER) (test xefm=180) 4.7 K/ L 4.0-10.0 RED BLOOD CELL COUNT (BEAKER) (test dhfn=782) 3.71 M/ L 4.00-5.00 HEMOGLOBIN (BEAKER) (test seov=561) 11.5 GM/DL 12.0-15.0 HEMATOCRIT (BEAKER) (test cmml=994) 33.7 % 36.0-45.0 MEAN CORPUSCULAR VOLUME (BEAKER) (test epdq=440) 91.0 fL 82.0-99.0 MEAN CORPUSCULAR HEMOGLOBIN (BEAKER) (test 31.1 pg 27.0-33.0 cxam=855) MEAN CORPUSCULAR HEMOGLOBIN CONC (BEAKER) (test 34.2 GM/DL 32.0-36.0 fvne=288) RED CELL DISTRIBUTION WIDTH (BEAKER) (test 12.3 % 10.3-14.2 uxxs=185) PLATELET COUNT (BEAKER) (test xhon=359) 245 K/CU MM 150-430 MEAN PLATELET VOLUME (BEAKER) (test mdcf=318) 7.7 fL 6.5-10.5 NUCLEATED RED BLOOD CELLS (BEAKER) (test 0 /100 WBC 0-0 olzs=833) NEUTROPHILS RELATIVE PERCENT (BEAKER) (test 93 % idyz=989) LYMPHOCYTES RELATIVE PERCENT (BEAKER) (test 2 % ggqf=077) MONOCYTES RELATIVE PERCENT (BEAKER) (test 5 % gdxn=864) EOSINOPHILS RELATIVE PERCENT (BEAKER) (test 0 % esjw=771) BASOPHILS RELATIVE PERCENT (BEAKER) (test 0 % neat=990) NEUTROPHILS ABSOLUTE COUNT (BEAKER) (test 4.40 K/ L 1.80-8.00 frfy=540) LYMPHOCYTES ABSOLUTE COUNT (BEAKER) (test 0.10 K/ L 1.48-4.50 epif=200) MONOCYTES ABSOLUTE COUNT (BEAKER) (test 0.20 K/ L 0.00-1.30 nrzd=093) EOSINOPHILS ABSOLUTE COUNT (BEAKER) (test 0.00 K/ L 0.00-0.50 elfj=373) BASOPHILS ABSOLUTE COUNT (BEAKER) (test 0.00 K/ L 0.00-0.20 hcan=560) RAPID INFLUENZA A&B [id number] 07:58:00 Test Item Value Reference Range Comments RAPID INFLUENZA A AG (BEAKER) (test Negative Negative, Inconclusive cbcy=1888) RAPID INFLUENZA B AG (BEAKER) (test Negative Negative, Inconclusive nbfg=9176) URINALYSIS W/ [id number] 07:55:00 Test Item Value Reference Range Comments COLOR (BEAKER) (test mxwh=762) Yellow CLARITY (BEAKER) (test uxjf=241) Clear SPECIFIC GRAVITY UA (BEAKER) (test yfwz=588) 1.015 1.001-1.035 PH UA (BEAKER) (test ommk=529) 6.0 5.0-8.0 PROTEIN UA (BEAKER) (test ljpr=243) Negative Negative GLUCOSE UA (BEAKER) (test pbvx=164) Negative Negative KETONES UA (BEAKER) (test mqpf=897) Negative Negative BILIRUBIN UA (BEAKER) (test tclu=393) Negative Negative BLOOD UA (BEAKER) (test nrla=978) Trace Negative NITRITE UA (BEAKER) (test xghb=217) Negative Negative LEUKOCYTE ESTERASE UA (BEAKER) (test fsxz=427) Negative Negative UROBILINOGEN UA (BEAKER) (test ceda=824) 0.2 mg/dL 0.2-1.0 BACTERIA (BEAKER) (test nvdk=562) Few MUCUS (BEAKER) (test djiw=8273) Few RBC UA-MANUAL (BEAKER) (test sqlw=4766) 5-10 /HPF WBC UA-MANUAL (BEAKER) (test jmnf=9316) 5-10 /HPF SQUAMOUS EPITHELIAL MANUAL (BEAKER) (test <5 /HPF jlww=7602) SOURCE(BEAKER) (test dezi=6718)
[2018-07-31] MEDS ORDERED: ALBUTEROL 2.5 MG/3 ML NEB SOL ONE (16:52)
[2018-07-31] MEDS ORDERED: IPRATROPIUM BROM 0.5MG/2.5ML ONE (16:53)
[2018-07-31] MEDS ORDERED: METHYLPREDNISOLONE 125 MG INJ ONE (17:21)
[2018-07-31] MEDS ORDERED: KETOROLAC 30 MG/ML INJ ONE (17:21)
[2018-07-31 18:12] LABS: Absolute Lymphocytes (CBC) 1.5 K/uL (0.7-4.9); Absolute Monocytes 0.4 K/uL (0.1-1.3); Absolute Neutrophil 3.8 K/uL (1.8-8.0); Basophils % 0.7 % (0-1.3); Hematocrit 42.7 % (36.0-45.0); Lymphocytes % 26.3 % (15.3-44.8); Monocytes % 6.5 % (3.3-12.3); RBC Red Blood Cell Count 4.25 M/uL (3.86-4.86)
[2018-07-31 18:31] LABS: Albumin 3.1 g/dL (3.4-5.0); Bilirubin Direct 0.7 mg/dL (0-0.2); Bilirubin Total 1.2 mg/dL (0.2-1.0); Potassium 4.1 mmol/L (3.5-5.1); Protein, Total 6.9 g/dL (6.4-8.2); Protime INR 1.17
[2018-07-31 18:42] LABS: MPV 10.5 fL (7.6-11.3)
[2018-07-31 18:44] LABS: Anisocytosis 1+; Blood Morphology Comment NOTED (NOT SEEN); Platelet Estimate DECR; Urine White Blood Cell Casts OK
--- NOTE | 2018-07-31 19:15 | RAD REPORT ---
EXAM DESCRIPTION: Cj Single View07/31/2018 6:58 pm CLINICAL HISTORY: Shortness of breath COMPARISON: May 2018 FINDINGS: Small right pleural effusion is present The lungs appear clear of acute infiltrate. The heart is mildly enlarged. Central venous catheters remain in place
--- NOTE | 2018-07-31 20:59 | EDPHYS ---
Physician Documentation [facility] Name: Renate Gold Age: 53 yrs Sex: Female : 1965 Arrival Date: 07/31/2018 Time: 15:23 Bed 5 Private MD: Maximiliano Raza ED Physician Osmel Solano HPI: 07/31 16:45 This 53 yrs old Female presents to ER via Wheelchair with complaints of cp Breathing Difficulty, Hand Pain. 16:45 The patient has shortness of breath at rest. Onset: The symptoms/episode began/occurred cp gradually, and became worse today. Duration: The symptoms are continuous, and are steadily getting worse. Associated signs and symptoms: Pertinent negatives: chest pain, fever, hemoptysis. Severity of symptoms: in the emergency department the symptoms are unchanged despite home interventions. The patient has experienced similar episodes in the past, multiple times. 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 - Social history:: Smoking status: Patient/guardian denies using tobacco. - Ebola Screening: : Patient negative for fever greater than or equal to 101.5 degrees Fahrenheit, and additional compatible Ebola Virus Disease symptoms Patient denies exposure to infectious person Patient denies travel to an Ebola-affected area in the 21 days before illness onset No symptoms or risks identified at this time. ROS: 16:50 Constitutional: Negative for body aches, chills, fever, poor PO intake. cp 16:50 Eyes: Negative for injury, pain, redness, and discharge. cp 16:50 ENT: Negative for drainage from ear(s), ear pain, sore throat, difficulty swallowing, difficulty handling secretions. 16:50 Neck: Negative for pain with movement, pain at rest, stiffness. 16:50 Respiratory: Positive for shortness of breath, at rest. Negative for wheezing. 16:50 Abdomen/GI: Negative for abdominal pain, vomiting, diarrhea, constipation. 16:50 Skin: Positive for ulceration, of the right hand and left hand, Negative for cellulitis. 16:50 Neuro: Negative for altered mental status, headache, syncope. 16:50 All other systems are negative. Exam: 16:55 Constitutional: The patient appears in no acute distress, alert, awake, cp non-diaphoretic, non-toxic, well developed, frail. 16:55 Head/Face: Normocephalic, atraumatic. Eyes: Pupils equal round and reactive to light, cp extra-ocular motions intact. Lids and lashes normal. Conjunctiva and sclera are non-icteric and not injected. Cornea within normal limits. Periorbital areas with no swelling, redness, or edema. ENT: Nares patent. No nasal discharge, no septal abnormalities noted. Tympanic membranes are normal and external auditory canals are clear. Oropharynx with no redness, swelling, or masses, exudates, or evidence of obstruction, uvula midline. Mucous membranes moist. Neck: Trachea midline, no thyromegaly or masses palpated, and no cervical lymphadenopathy. Supple, full range of motion without nuchal rigidity, or vertebral point tenderness. No Meningismus. 16:55 Chest/axilla: Inspection: dialysis catheter noted right upper chest, Palpation: crepitus, is not appreciated, tenderness, is not appreciated. 16:55 Cardiovascular: Rate: normal, Rhythm: regular, Edema: is not appreciated, JVD: is not appreciated. 16:55 Respiratory: the patient does not display signs of respiratory distress, Respirations: labored breathing, that is mild, accessory muscle usage, is absent, shallow respirations, that is mild, splinting, is not noted, tachypnea, that is mild, Breath sounds: decreased breath sounds, that are moderate, throughout, stridor, is not appreciated. 16:55 Abdomen/GI: Inspection: abdomen appears normal, Palpation: abdomen is soft and non-tender, in all quadrants, rebound tenderness, is not appreciated, involuntary guarding, is not appreciated. 16:55 Back: pain, is absent, ROM is normal. 16:55 Skin: Appearance: Color: dusky coloration of fingertips, noted ulcerated wounds on multiple fingertips bilateral hands. 16:55 Neuro: Orientation: to person, place \T\ time. Mentation: is normal, Cerebellar function: is grossly normal, Motor: moves all fours, strength is normal, Sensation: is normal. 17:00 ECG was reviewed by the Attending Physician. cp Vital Signs: 15:58 BP 143 / 105; Pulse 92; Resp 31; Temp 98.1; Pulse Ox 100% on R/A; Weight 39.01 kg; aj Height 5 ft. 3 in. (160.02 cm); 16:16 BP 148 / 106; Pulse 93; Resp 18; Pulse Ox 100% on 3 lpm NC; hj 19:00 BP 147 / 106; Pulse 92; Resp 18; Pulse Ox 100% on 2 lpm NC; hj 19:59 BP 145 / 114; Pulse 102; Resp 18; Pulse Ox 99% on R/A; ea 20:30 BP 139 / 112; Pulse 98; Resp 18; Pulse Ox 99% ; ea 21:54 BP 140 / 104; Pulse 100; Resp 18; Pulse Ox 99% ; ea 22:08 BP 148 / 116; Pulse 99; Resp 18; Pulse Ox 99% on R/A; ea 08/01 00:59 BP 119 / 103; Pulse 94; Resp 18; Pulse Ox 100% ; ea 01:45 BP 138 / 110; Pulse 90; Resp 18; Pulse Ox 100% ; ea 07/31 15:58 Body Mass Index 15.23 (39.01 kg, 160.02 cm) aj MDM: 07/31 16:23 Patient medically screened. cp 17:00 Differential diagnosis: asthma, Bronchitis CHF exacerbation, Chronic Obstructive cp Pulmonary Disease Myocardial Infarction pneumonia, Pneumothorax Sepsis Unstable Angina. 20:56 Data reviewed: vital signs, nurses notes, lab test result(s), EKG, radiologic studies, cp plain films. Counseling: I had a detailed discussion with the patient and/or guardian regarding: the historical points, exam findings, and any diagnostic results supporting the discharge/admit diagnosis, lab results, radiology results. Physician consultation: Jeremiah Webb MD was called at 20:57, was contacted at 20:57, regarding admission, to the telemetry unit. patient's condition. 07/31 16:35 Order name: ABG cp 07/31 16:36 Order name: Blood Culture Adult (2) cp 07/31 16:36 Order name: BMP; Complete Time: 19:04 cp 07/31 19:50 Interpretation: Normal except: NA 128; CL 91; GLUC 126; CRE 1.89; GFR 28. cp 07/31 16:36 Order name: CBC with Diff; Complete Time: 19:04 cp 07/31 19:51 Interpretation: Normal except: MCV 100.3; RDW 19.9; PLT 51. cp 07/31 16:36 Order name: Hepatic Function; Complete Time: 19:04 cp 07/31 19:51 Interpretation: AST 41; ALK 271; BILIT 1.2; BILID 0.7; ALB 3.1; GLOB 3.8; A/G 0.8. cp 07/31 16:36 Order name: Lipase; Complete Time: 19:05 cp 07/31 16:36 Order name: Magnesium; Complete Time: 19:05 cp 07/31 16:36 Order name: NT PRO-BNP; Complete Time: 19:04 cp 07/31 16:36 Order name: PT-INR; Complete Time: 19:04 cp 07/31 16:36 Order name: Ptt, Activated; Complete Time: 19:05 cp 07/31 16:37 Order name: Blood Culture EDMS 07/31 16:38 Order name: Procalcitonin; Complete Time: 19:04 cp 07/31 19:05 Interpretation: Abnormal: Procalcitonin 0.61. cp 07/31 16:38 Order name: Lactate; Complete Time: 19:05 cp 07/31 19:52 Interpretation: LAC 2.3; Reviewed. cp 07/31 18:44 Order name: CBC Smear Scan; Complete Time: 19:05 EDMS 07/31 16:35 Order name: XRAY Chest (1 view); Complete Time: 19:18 cp 07/31 16:36 Order name: EKG; Complete Time: 16:37 cp 08/01 01:01 Order name: CONS Pharmacy Consult EDMS 08/01 01:01 Order name: CBC with Automated Diff EDMS 08/01 01:01 Order name: CBC with Automated Diff EDMS 08/01 01:01 Order name: Comprehensive Metabolic Panel EDMS 08/01 01:01 Order name: Comprehensive Metabolic Panel EDMS 08/01 01:01 Order name: Chest Single View EDMS 08/01 01:01 Order name: Chest Single View EDMS 07/31 16:36 Order name: Cardiac monitoring; Complete Time: 16:39 cp 07/31 16:36 Order name: EKG - Nurse/Tech; Complete Time: 16:46 cp 07/31 16:36 Order name: IV Saline Lock; Complete Time: 17:32 cp 07/31 16:36 Order name: Labs collected and sent; Complete Time: 17:32 cp 07/31 16:36 Order name: O2 Per Protocol; Complete Time: 16:40 cp 07/31 16:36 Order name: O2 Sat Monitoring; Complete Time: 16:40 cp 08/01 01:01 Order name: NPO EDMS EC:00 Rate is 88 beats/min. Rhythm is regular. VA interval is normal. QRS interval is normal. cp QT interval is normal. T waves are Inverted in lead aVL. Interpreted by me. Reviewed by me. Administered Medications: 16:35 Drug: Albuterol - atroVENT (3:1) (2.5 mg - 0.5 mg) 3 ml Route: Nebulizer; hj 18:33 Follow up: Response: No adverse reaction; Wheezing diminished hj 17:33 Drug: SOLU-Medrol 60 mg Route: IVP; Site: Port-a-cath; hj 18:33 Follow up: Response: No adverse reaction hj 17:33 Drug: TORadol 15 mg Route: IVP; Site: Port-a-cath; hj 18:32 Follow up: Response: No adverse reaction; Pain is decreased hj 21:04 Drug: Rocephin - (cefTRIAXone) 1 grams Route: IVPB; Infused Over: 30 mins; Site: Port-a-cath; 21:30 Follow up: Response: No adverse reaction; IV Status: Completed infusion ea 21:04 Drug: Zithromax 500 mg Route: PO; ea 21:30 Follow up: Response: No adverse reaction ea 22:39 Drug: Phenergan 12.5 mg Route: IVP; Site: Port-a-cath; ea 08/01 00:00 Follow up: Response: No adverse reaction; Marked relief of symptoms ea 00:10 Drug: fentaNYL (PF) 25 mcg Route: IVP; Site: Port-a-cath; ea 01:14 Follow up: Response: No adverse reaction; Pain is decreased ea Disposition: 21:26 Co-signature as Attending Physician, Osmel Solano MD I agree with the assessment and mn plan of care. Disposition: 07/31/18 20:58 Hospitalization ordered by Jeremiah Webb for Observation. Preliminary diagnosis are Tachypnea, not elsewhere classified, Pleural effusion in other conditions classified elsewhere - Right, Shortness of breath. - Bed requested for Telemetry/MedSurg (observation). - Status is Observation. ea - Condition is Stable. - Problem is an acute exacerbation. - Symptoms have improved. UTI on Admission? No Signatures: Dispatcher [employer] EDMS Lesly Mcgill RN RN aj Joaquin, Henry, RN RN hj Page, Corey, PA PA cp Garcia, Cindy, RN RN cg Antunez, Elena, RN RN ea Appiah, William, MD MD mn Corrections: (The following items were deleted from the chart) 07/31 19:51 19:51 Normal except: MCV 100.3; RDW 19.9. cp cp 08/01 01:21 07/31 20:58 Hospitalization Ordered by Jeremiah Webb MD for Observation. Preliminary cg diagnosis is Tachypnea, not elsewhere classified; Pleural effusion in other conditions classified elsewhere - Right; Shortness of breath. Bed requested for Telemetry/MedSurg (observation). Status is Observation. Condition is Stable. Problem is an acute exacerbation. Symptoms have improved. UTI on Admission? No. cp 08/01 02:02 01:21 07/31/2018 20:58 Hospitalization Ordered by Jeremiah Webb MD for Observation. ea Preliminary diagnosis is Tachypnea, not elsewhere classified; Pleural effusion in other conditions classified elsewhere - Right; Shortness of breath. Bed requested for Telemetry/MedSurg (observation). Status is Observation. Condition is Stable. Problem is an acute exacerbation. Symptoms have improved. UTI on Admission? No. cg 08/02 01:55 01:43 Constitutional: The patient appears in no acute distress, alert, awake, cp non-diaphoretic, non-toxic, well developed, frail, cp 01:55 01:43 Head/Face: Normocephalic, atraumatic. cp cp 01:55 01:43 Eyes: Periorbital structures: appear normal, Pupils: equal, round, and reactive cp to light and accomodation, Extraocular movements: intact throughout, Conjunctiva: normal, no exudate, no injection, Sclera: no appreciated abnormality, Lids and lashes: appear normal, bilaterally, cp : 01:43 ENT: External ear(s): are unremarkable, Ear canal(s): are normal, clear, TM's: cp bulging, is not appreciated, bilaterally, Nose: is normal, Mouth: Lips: moist, Oral mucosa: pink and intact, moist, Posterior pharynx: Airway: no evidence of obstruction, patent, Tonsils: are normal in appearance, Uvula: midline, swelling, is not appreciated, erythema, is not appreciated, exudate, is not appreciated, cp : 01:43 Neck: ROM/movement: is normal, is supple, without pain, no range of motions cp limitations, no meningismus, no nuchal rigidity, cp : 01:43 Chest/axilla: Inspection: dialysis catheter noted right upper chest, Palpation: cp crepitus, is not appreciated, tenderness, is not appreciated, cp : 01:43 Cardiovascular: Rate: normal, Rhythm: regular, Edema: is not appreciated, JVD: is cp not appreciated, cp
--- NOTE | 2018-07-31 20:59 | ER ---
Nurse's Notes [facility] Name: Renate Gold Age: 53 yrs Sex: Female : 1965 Arrival Date: 07/31/2018 Time: 15:23 Bed 5 Private MD: Maximiliano Raza Diagnosis: Tachypnea, not elsewhere classified;Pleural effusion in other conditions classified elsewhere-Right;Shortness of breath Presentation: 07/31 15:55 Presenting complaint: Patient states: Pain and sores to bilateral hands and increased aj SOB. Transition of care: patient was not received from another setting of care. Onset of symptoms was July 29, 2018. Risk Assessment: Do you want to hurt yourself or someone else? Patient reports no desire to harm self or others. Initial Sepsis Screen: Does the patient meet any 2 criteria? No. Patient's initial sepsis screen is negative. Does the patient have a suspected source of infection? No. Patient's initial sepsis screen is negative. Care prior to arrival: None. 15:55 Method Of Arrival: Wheelchair 15:55 Acuity: RICH 3 aj Triage Assessment: 15:58 General: Appears in no apparent distress. uncomfortable, cachectic, Behavior is calm, aj cooperative. Pain: Complains of pain in right hand and left hand. Neuro: Level of Consciousness is awake, alert, obeys commands, Oriented to person, place, time, situation, Appropriate for age. Respiratory: Reports shortness of breath Airway is patent Respiratory effort is even, unlabored, Respiratory pattern is regular, symmetrical, Onset: The symptoms/episode began/occurred yesterday, the patient has moderate shortness of breath. Derm: Skin is intact, is healthy with good turgor, Skin is pink, warm \T\ dry. normal. 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 - Social history:: Smoking status: Patient/guardian denies using tobacco. - Ebola Screening: : Patient negative for fever greater than or equal to 101.5 degrees Fahrenheit, and additional compatible Ebola Virus Disease symptoms Patient denies exposure to infectious person Patient denies travel to an Ebola-affected area in the 21 days before illness onset No symptoms or risks identified at this time. Screenin:10 Abuse screen: Denies threats or abuse. Denies injuries from another. Nutritional hj screening: No deficits noted. Tuberculosis screening: No symptoms or risk factors identified. Fall Risk None identified. Assessment: 16:10 Cardiovascular: Rhythm is. Respiratory: Reports shortness of breath Airway is patent hj Respiratory effort is even, unlabored, Respiratory pattern is regular, symmetrical, 16:10 General: Appears distressed, uncomfortable, slender, Behavior is cooperative, hj appropriate for age, drowsy. Pain: Complains of pain in left hand and right hand. Neuro: Level of Consciousness is awake, alert, obeys commands, Oriented to person, place, time, situation, Appropriate for age. GI: No signs and/or symptoms were reported involving the gastrointestinal system. : Reports daily dialysis. EENT: No signs and/or symptoms were reported regarding the EENT system. Derm: No signs and/or symptoms reported regarding the dermatologic system. Musculoskeletal: Reports pain in left hand and right hand. 16:10 Reassessment: duaul port, R chest for dialysis, L chest for chemo;. hj 19:00 Reassessment: Patient and/or family updated on plan of care and expected duration. Pain hj level reassessed. Patient is alert, oriented x 3, equal unlabored respirations, skin warm/dry/pink. awaiting labs; and POC;. 19:15 General: Appears in no apparent distress. Behavior is calm, cooperative, appropriate ea for age. Pain: Denies pain. Neuro: Level of Consciousness is awake, alert, obeys commands, Oriented to person, place, time, situation. Cardiovascular: Patient's skin is warm and dry. Respiratory: Airway is patent Respiratory effort is even, unlabored, Respiratory pattern is regular, symmetrical. EENT: No signs and/or symptoms were reported regarding the EENT system. Derm: discoloration noted to jeffery hands. Musculoskeletal: Circulation, motion, and sensation intact. 20:30 Reassessment: Patient and/or family updated on plan of care and expected duration. Pain ea level reassessed. Patient is alert, oriented x 3, equal unlabored respirations, skin warm/dry/pink. 21:53 Reassessment: Patient and/or family updated on plan of care and expected duration. Pain ea level reassessed. Patient is alert, oriented x 3, equal unlabored respirations, skin warm/dry/pink. 22:08 Reassessment: Patient and/or family updated on plan of care and expected duration. Pain ea level reassessed. Patient is alert, oriented x 3, equal unlabored respirations, skin warm/dry/pink. 23:00 Reassessment: Patient and/or family updated on plan of care and expected duration. Pain ea level reassessed. Patient is alert, oriented x 3, equal unlabored respirations, skin warm/dry/pink. Awaiting on floor orders. 08/01 00:57 Reassessment: Patient and/or family updated on plan of care and expected duration. Pain ea level reassessed. Patient is alert, oriented x 3, equal unlabored respirations, skin warm/dry/pink. Reports pain has decreased. Awaiting on physician orders and room assignment. 01:26 Reassessment: Report called to Colette GOFF on fourth floor. ea Vital Signs: 07/31 15:58 BP 143 / 105; Pulse 92; Resp 31; Temp 98.1; Pulse Ox 100% on R/A; Weight 39.01 kg; aj Height 5 ft. 3 in. (160.02 cm); 16:16 BP 148 / 106; Pulse 93; Resp 18; Pulse Ox 100% on 3 lpm NC; hj 19:00 BP 147 / 106; Pulse 92; Resp 18; Pulse Ox 100% on 2 lpm NC; hj 19:59 BP 145 / 114; Pulse 102; Resp 18; Pulse Ox 99% on R/A; ea 20:30 BP 139 / 112; Pulse 98; Resp 18; Pulse Ox 99% ; ea 21:54 BP 140 / 104; Pulse 100; Resp 18; Pulse Ox 99% ; ea 22:08 BP 148 / 116; Pulse 99; Resp 18; Pulse Ox 99% on R/A; ea 08/01 00:59 BP 119 / 103; Pulse 94; Resp 18; Pulse Ox 100% ; ea 01:45 BP 138 / 110; Pulse 90; Resp 18; Pulse Ox 100% ; ea 07/31 15:58 Body Mass Index 15.23 (39.01 kg, 160.02 cm) ED Course: 07/31 15:23 Patient arrived in ED. rg4 15:23 Maximiliano Raza MD is Private Physician. rg4 15:57 Triage completed. aj 15:58 Arm band placed on left wrist. Patient placed in an exam room. aj 16:09 Trey Plaza, RN is Primary Nurse. hj 16:11 Patient has correct armband on for positive identification. Placed in gown. Bed in low hj position. Call light in reach. Side rails up X 1. 16:22 Donavan Kate PA is PHCP. cp 16:22 Donavan Beltre MD is Attending Physician. cp 17:30 Accessed Port-a-Cath. using accessed w/ # 20 Mercado needle, ,sterile technique, Clean \T\ hj dry. Good blood return. Flushes easily. 18:44 XRAY Chest (1 view) In Process Unspecified. EDMS 19:19 Willy Archuleta, [place] is Primary Nurse. jd3 19:22 Osmel Solano MD is Attending Physician. cp 20:11 Blood Culture Adult (2) Sent. jd3 20:57 Jeremiah Webb MD is Hospitalizing Provider. cp 08/01 00:58 No provider procedures requiring assistance completed. Patient admitted, IV remains in ea place. Administered Medications: 07/31 16:35 Drug: Albuterol - atroVENT (3:1) (2.5 mg - 0.5 mg) 3 ml Route: Nebulizer; hj 18:33 Follow up: Response: No adverse reaction; Wheezing diminished hj 17:33 Drug: SOLU-Medrol 60 mg Route: IVP; Site: Port-a-cath; hj 18:33 Follow up: Response: No adverse reaction hj 17:33 Drug: TORadol 15 mg Route: IVP; Site: Port-a-cath; hj 18:32 Follow up: Response: No adverse reaction; Pain is decreased hj 21:04 Drug: Rocephin - (cefTRIAXone) 1 grams Route: IVPB; Infused Over: 30 mins; Site: ea Port-a-cath; 21:30 Follow up: Response: No adverse reaction; IV Status: Completed infusion ea 21:04 Drug: Zithromax 500 mg Route: PO; ea 21:30 Follow up: Response: No adverse reaction ea 22:39 Drug: Phenergan 12.5 mg Route: IVP; Site: Port-a-cath; ea 08/01 00:00 Follow up: Response: No adverse reaction; Marked relief of symptoms ea 00:10 Drug: fentaNYL (PF) 25 mcg Route: IVP; Site: Port-a-cath; ea 01:14 Follow up: Response: No adverse reaction; Pain is decreased ea Outcome: 07/31 20:58 Decision to Hospitalize by Provider. cp 21:15 Instructed on the need for admit. ea 08/01 01:55 Admitted to Med/surg accompanied by tech, room 422, with chart, Report called to ea Receiving nurse on second floor Condition: stable 02:02 Patient left the ED. ea Signatures: Dispatcher [employer] EDLesly Duarte RN Trey Guzman RN Donavan Hearn PA PA cp Garcia, Rubi rg4 Mary Jo Rhodes RN RN ea Davies, Jonathon, RN RN jd3 Corrections: (The following items were deleted from the chart) 00:05 07/31 23:00 Reassessment: Patient and/or family updated on plan of care and expected ea duration. Pain level reassessed. Patient is alert, oriented x 3, equal unlabored respirations, skin warm/dry/pink. ea
[2018-07-31] MEDS ORDERED: CEFTRIAXONE/SWI 1gm 1 GM/10 ML SYR ONE (21:01)
[2018-07-31] MEDS ORDERED: AZITHROMYCIN 250 MG TAB ONE (21:01)
[2018-07-31] MEDS ORDERED: PROMETHAZINE 25 MG/ML VIAL ONE (22:42)
[2018-08-01] MEDS ORDERED: FENTANYL CITR 100 MCG/2 ML ONE (00:16)
[2018-08-01] MEDS ORDERED: ACETAMINOPHEN 500 MG TAB PO PRN (00:55)
[2018-08-01] MEDS ORDERED: MORPHINE 2 MG/ML SYR IV PRN (00:55)
[2018-08-01] MEDS ORDERED: NA CHLORIDE 0.9% 1,000 ML IV SCH (01:00)
[2018-08-01] MEDS ORDERED: ALPRAZOLAM 0.25 MG TABLET PO PRN (03:28)
[2018-08-01] MEDS ORDERED: MORPHINE 4 MG/ML SYR ONE (03:44)
[2018-08-01] MEDS ORDERED: MORPHINE 4 MG/ML SYR IV PRN ×2 (07:55→08:01)
[2018-08-01] MEDS: IPRATROPIUM BROM 0.5MG/2.5ML NEB SCH ×3 (08:00→19:41)
[2018-08-01] MEDS: ALBUTEROL 2.5 MG/3 ML NEB SOL NEB SCH ×3 (08:00→19:41)
[2018-08-01] MEDS: ISOSORBIDE DINIT 20 MG TAB PO SCH ×2 (09:34→21:02)
[2018-08-01 09:48] LABS: Arterial Blood Carboxyhemoglob 1.7 % (0-1.5); Blood Gas Oxyhemoglobin 97.1 % (94-97); Blood O2 Saturation 99.4 % (92-98.5)
--- NOTE | 2018-08-01 10:16 | P.HP ---
Certification for Inpatient Patient admitted to: Observation With expected LOS: <2 Midnights Patient will require the following post-hospital care: None Practitioner: I am a practitioner with admitting privileges, knowledge of patient current condition, hospital course, and medical plan of care. Services: Services provided to patient in accordance with Admission requirements found in Title 42 Section 412.3 of the Code of Federal Regulations Patient History Date of Service: 08/01/18 Reason for admission: Difficulty breathing History of Present Illness: Patient is a 53-year-old female with stage IV breast cancer and is on hospice care. She is on hospice care for the breast cancer. However, she got short of breath and was brought to the emergency room. She has a history of end-stage renal disease and is on dialysis. She also has Raynaud's phenomenon. She does appear to have clubbing in a couple of her fingers however this is not seen in all her digits. I am not sure she has additional findings related to her illness. Because of her hospice diagnosis will continue with supportive care. Will also Consult nephrology for hemodialysis and will start her on treatment for her COPD. Anticipate discharge home in 24-48 hr. Allergies ciprofloxacin HCl [From Cipro] Allergy (Unknown, Verified 04/02/18 13:39) Unknown Sulfa (Sulfonamide Antibiotics) Allergy (Unknown, Verified 04/02/18 13:39) Unknown ofloxacin Adverse Reaction (Verified 08/01/18 03:11) Shortness of breath Home Medications: Carvedilol 3.125 mg PO BEDTIME 04/03/18 ALPRAZolam [Xanax*] 0.25 mg PO BID PRN 08/01/18 Sennosides [Senna] 1 tab PO BEDTIME 08/01/18 - Past Medical/Surgical History Has patient received pneumonia vaccine in the past: Yes Diabetic: No -: right breast sx removal of lump, and lymph nodes -: breast ca-metastasized, radiation, chemo stopped 03/2018 complications -: renal disease -: ESRD -: COPD -: CHF -: ADD/ADHD -: Pnemonia -: hysterectomy -: -: exploratory laparotomy, cholecystectomy -: port a cath left chest wall -: gabbi right chest wall -: partial right mastectomy - Family History Mother Medical History: Diabetes, Cancer Notes: breast ca Father Medical History: Heart disease, Hypertension - Social History Smoking Status: Unknown if ever smoked Alcohol use: No CD- Drugs: No Caffeine use: Yes Place of Residence: Home Review of Systems 10-point ROS is otherwise unremarkable Physical Examination - Vital Signs Temperature: 97.1 F Blood Pressure: 144/105 Pulse: 94 Respirations: 20 Pulse Ox (%): 100 - Physical Exam General: Alert, In no apparent distress, Oriented x3 HEENT: Atraumatic, PERRLA, Mucous membr. moist/pink, EOMI, Sclerae nonicteric Neck: Supple, 2+ carotid pulse no bruit, No LAD, Without JVD or thyroid abnormality Respiratory: Diminished, Expiratory wheezes Cardiovascular: Regular rate/rhythm, Normal S1 S2 Gastrointestinal: Normal bowel sounds, Soft and benign, Non-distended, No tenderness Musculoskeletal: No tenderness Integumentary: No rashes, Other (Port-A-Cath in place on the left subclavian and she has a Tessio catheter in the right subclavian) Neurological: Normal tone, Sensation intact, Cranial nerves 3-12 intact, Abnormal gait, Abnormal speech, Abnormal strength, Abnormal affect Lymphatics: No axilla or inguinal lymphadenopathy - Studies Laboratory Data (last 24 hrs) 07/31/18 18:00: PT 13.8 H, INR 1.17, APTT 29.5 07/31/18 18:00: WBC 5.8, Hgb 14.3, Hct 42.7, Plt Count 51 L 07/31/18 18:00: Sodium 128 L, Potassium 4.1, BUN 15, Creatinine 1.89 H, Glucose 126 H, Magnesium 2.0, Total Bilirubin 1.2 H, AST 41 H, ALT 61, Alkaline Phosphatase 271 H, Lipase 189 Assessment & Plan - Problems (Diagnosis) (1) Stage IV breast cancer in female Current Visit: Yes Status: Acute (2) Acute on chronic systolic CHF (congestive heart failure) Onset Date: 05/04/18 Current Visit: No Status: Acute (3) COPD (chronic obstructive pulmonary disease) Current Visit: No Status: Acute (4) Respiratory distress Onset Date: 06/07/18 Current Visit: No Status: Acute (5) Respiratory failure Onset Date: 04/05/18 Current Visit: No Status: Acute (6) ESRD (end stage renal disease) Onset Date: 04/05/18 Current Visit: No Status: Chronic (7) Metastatic breast cancer Onset Date: 06/07/18 Current Visit: No Status: Chronic - Plan 1. Echocardiogram 2. We will start patient on a Beta adonis 3. Cardiology consultation 4. Nephrology consultation for hemodialysis 5. Aggressive diuresis if unable dialyze 6. Strict I's and O's 7. Repeat CXR 8. Daily weights 9. Strict blood pressure control 10. Isordil for vasodilatation to assist with Raynaud's 11. Supportive care as patient is a hospice patient 12. DVT prophylaxis Discharge Plan: Home Plan to discharge in: 24 Hours - Advance Directives Does patient have a Living Will: No Does patient have a Durable POA for Healthcare: No - Code Status/Comfort Care Code Status Assessed: Yes Code Status: Do Not Resuscitate Comfort Measures: Hospice Care Critical Care: No Time Spent Managing PTS Care (In Minutes): 50
[2018-08-01] MEDS ORDERED: PROMETHAZINE 25 MG TABLET PO PRN (11:29)
[2018-08-01] MEDS ORDERED: HYDROMORPHONE HCL 0.5 MG/0.5 ML INJ IV PRN (12:01)
[2018-08-01] MEDS: METHYLPREDNISOLONE 125 MG INJ IV SCH ×2 (12:32→18:00)
--- NOTE | 2018-08-01 13:30 | P.CNS ---
Date of Consult: 08/01/18 Reason for Consult: ESRD to resume HD Chief Complaint: Difficulty breathing History of Present Illness: pt is lethargic now , hx obtained for chart A 53 Y/O woman with PMhx of ESRD on daily HD started on 02/2018 , ESRD due to chemo therapy and TMA, metastatic breast CA, COPD and CHF pt presented with SOB , and cold extremities as per family memeber at bedside, no nausea, vomiting, diarrhea or constipation pt received many pain meds in ER pt is at daily Home HD, 3;30 min with UF 2-3 Kg Allergies ciprofloxacin HCl [From Cipro] Allergy (Unknown, Verified 04/02/18 13:39) Unknown Sulfa (Sulfonamide Antibiotics) Allergy (Unknown, Verified 04/02/18 13:39) Unknown ofloxacin Adverse Reaction (Verified 08/01/18 03:11) Shortness of breath Home Medications: Carvedilol 3.125 mg PO BEDTIME 04/03/18 ALPRAZolam [Xanax*] 0.25 mg PO BID PRN 08/01/18 Sennosides [Senna] 1 tab PO BEDTIME 08/01/18 - Past Medical/Surgical History Diabetic: No -: right breast sx removal of lump, and lymph nodes -: breast ca-metastasized, radiation, chemo stopped 03/2018 complications -: renal disease -: ESRD -: COPD -: CHF -: ADD/ADHD -: Pnemonia -: hysterectomy -: -: exploratory laparotomy, cholecystectomy -: port a cath left chest wall -: gabbi right chest wall -: partial right mastectomy - Family History Mother Medical History: Diabetes, Cancer Notes: breast ca Father Medical History: Heart disease, Hypertension - Social History Smoking Status: Unknown if ever smoked Alcohol use: No CD- Drugs: No Caffeine use: Yes Place of Residence: Home Physical Examination Temp Pulse Resp BP Pulse Ox 97.1 F 94 H 20 144/105 H 100 08/01/18 10:16 08/01/18 10:16 08/01/18 10:16 08/01/18 10:16 08/01/18 10:16 General: Comatose HEENT: Atraumatic Neck: Supple, Without JVD or thyroid abnormality Respiratory: Clear to auscultation bilaterally Cardiovascular: No edema, Regular rate/rhythm, Normal S1 S2, Abnormal S3, No rubs, No murmurs Gastrointestinal: Normal bowel sounds Laboratory Data (last 24 hrs) 07/31/18 18:00: PT 13.8 H, INR 1.17, APTT 29.5 07/31/18 18:00: WBC 5.8, Hgb 14.3, Hct 42.7, Plt Count 51 L 07/31/18 18:00: Sodium 128 L, Potassium 4.1, BUN 15, Creatinine 1.89 H, Glucose 126 H, Magnesium 2.0, Total Bilirubin 1.2 H, AST 41 H, ALT 61, Alkaline Phosphatase 271 H, Lipase 189 - Problems (1) Stage IV breast cancer in female Current Visit: Yes Status: Chronic (2) COPD (chronic obstructive pulmonary disease) Current Visit: No Status: Chronic (3) ESRD (end stage renal disease) Onset Date: 04/05/18 Current Visit: No Status: Chronic Conclusions/Impression: ESRD on HD via PC will cont daily HD renal dose all meds lethargy change moprhine to Dilaudid prn HD today Thrombocytopenia previous hospitalization, Plt WNL Avoid heparin hyponatremia Will correct on HD Metastatic breast Ca rt finger gangrenous changes
--- NOTE | 2018-08-01 13:32 | EKG ---
Test Date: 2018-07-31 Test Time: 16:43:32 [employer] Canning Leader: ELODIA MEASUREMENT RESULTS: Intervals: Rate: 88 NC: 136 QRSD: 80 QT: 376 QTc: 454 [place]: P: 77 NC: 136 QRS: 31 T: 83 INTERPRETIVE STATEMENTS: Normal sinus rhythm Minimal voltage criteria for LVH, may be normal variant Borderline ECG Compared to ECG 06/04/2018 03:35:02 Left ventricular hypertrophy now present Sinus tachycardia no longer present Electronically Signed On 08-01-18 13:21:55 [employer] by Derik Bryan
[2018-08-01] MEDS: ALBUMIN HUMAN 25% 50 ML IV SCH ×2 (15:17→15:40)
[2018-08-01] MEDS: SENOSIDES 8.6 MG TAB PO SCH (21:02)
[2018-08-01] MEDS: CARVEDILOL 12.5 MG TAB PO SCH (21:02)
[2018-08-01] MEDS: HYDROMORPHONE HCL 1 MG/ML INJ IV PRN (23:37)
[2018-08-02] MEDS: PANTOPRAZOLE 40 MG INJ IVP ONE ×2 (00:56→05:21)
[2018-08-02] MEDS ORDERED: SODIUM CHLORIDE 0.9% 10ML INJ IV PRN (00:56)
[2018-08-02] MEDS: ALBUTEROL 2.5 MG/3 ML NEB SOL NEB SCH ×4 (02:00→20:50)
[2018-08-02] MEDS: IPRATROPIUM BROM 0.5MG/2.5ML NEB SCH ×4 (02:00→20:50)
[2018-08-02] MEDS: METHYLPREDNISOLONE 125 MG INJ IV SCH ×4 (05:21→18:21)
[2018-08-02 06:28] LABS: Absolute Lymphocytes (CBC) 0.5 K/uL (0.7-4.9); Absolute Monocytes 0.2 K/uL (0.1-1.3); Absolute Neutrophil 4.3 K/uL (1.8-8.0); Basophils % 0.2 % (0-1.3); Hematocrit 40.4 % (36.0-45.0); Lymphocytes % 10.7 % (15.3-44.8); MPV 10.5 fL (7.6-11.3); RBC Red Blood Cell Count 3.94 M/uL (3.86-4.86)
[2018-08-02 06:44] LABS: Albumin 3.7 g/dL (3.4-5.0); Potassium 4.4 mmol/L (3.5-5.1); Protein, Total 7.3 g/dL (6.4-8.2)
[2018-08-02 06:54] LABS: Anisocytosis 1+; Blood Morphology Comment NOTED (NOT SEEN); Platelet Estimate DECR; Urine White Blood Cell Casts OK
[2018-08-02] MEDS: ISOSORBIDE DINIT 20 MG TAB PO SCH ×2 (08:44→21:30)
--- NOTE | 2018-08-02 08:55 | RAD REPORT ---
EXAM DESCRIPTION: Cj Single View08/02/2018 6:33 am CLINICAL HISTORY: Shortness of breath COMPARISON: July 31 FINDINGS: Small right pleural effusion is present. Lungs appear clear of acute infiltrate. Heart remains enlarged. Central venous catheters remain in pl segun
[2018-08-02] MEDS: ALBUMIN HUMAN 25% 50 ML IV SCH (10:26)
[2018-08-02] MEDS: HYDROMORPHONE HCL 1 MG/ML INJ IV PRN ×2 (13:34→20:30)
--- NOTE | 2018-08-02 17:17 | P.PN ---
Subjective Date of Service: 08/02/18 Chief Complaint: Difficulty breathing Review of Systems 10-point ROS is otherwise unremarkable Physical Examination - Vital Signs Temperature: 97.3 F Blood Pressure: 133/101 Pulse: 102 Respirations: 18 Pulse Ox (%): 96 - Physical Exam General: Alert, In no apparent distress, Cachectic HEENT: Atraumatic, PERRLA, EOMI Neck: Supple, JVD not distended Respiratory: Normal air movement, Expiratory wheezes, Inspiratory wheezes Cardiovascular: Regular rate/rhythm, Normal S1 S2 Gastrointestinal: Normal bowel sounds, No tenderness Musculoskeletal: No tenderness Integumentary: No rashes Neurological: Normal speech, Normal tone, Normal affect Lymphatics: No axilla or inguinal lymphadenopathy - Studies Medications List Reviewed: Yes Assessment And Plan - Current Problems (Diagnosis) (1) COPD (chronic obstructive pulmonary disease) Onset Date: 08/02/18 Current Visit: No Status: Chronic Plan: COPD exacerbation -Duonebs, Steriods and Oxygen for now Qualifiers: COPD type: COPD with acute exacerbation Qualified Code(s): J44.1 - Chronic obstructive pulmonary disease with (acute) exacerbation (2) Stage IV breast cancer in female Onset Date: 08/02/18 Current Visit: Yes Status: Chronic (3) CHF (congestive heart failure) Onset Date: 04/08/18 Current Visit: No Status: Acute Qualifiers: Heart failure type: systolic Heart failure chronicity: acute on chronic Qualified Code(s): I50.23 - Acute on chronic systolic (congestive) heart failure (4) ESRD (end stage renal disease) Onset Date: 04/05/18 Current Visit: No Status: Chronic Plan: Receiving HD now. Discharge Plan: Home Plan to discharge in: 48 Hours - Code Status/Comfort Care Code Status Assessed: Yes Critical Care: No
[2018-08-02] MEDS: PANTOPRAZOLE 40MG TABLET PO SCH (18:21)
[2018-08-02] MEDS: CARVEDILOL 12.5 MG TAB PO SCH (21:00)
[2018-08-02] MEDS: NEPRO SHAKE 237 ML CAN PO SCH (21:00)
[2018-08-02] MEDS: SENOSIDES 8.6 MG TAB PO SCH (21:30)
[2018-08-02] MEDS ORDERED: DIPHENHYDRAMINE 25 MG TAB/CAP PO ONE (21:38)
[2018-08-03] MEDS: METHYLPREDNISOLONE 125 MG INJ IV SCH ×3 (00:48→11:01)
[2018-08-03] MEDS: IPRATROPIUM BROM 0.5MG/2.5ML NEB SCH ×3 (02:50→14:00)
[2018-08-03] MEDS: ALBUTEROL 2.5 MG/3 ML NEB SOL NEB SCH ×3 (02:50→14:00)
--- NOTE | 2018-08-03 02:57 | PN ---
Date of Progress Note: 08/02/2018 Chief Complaint: End-stage renal disease, congestive heart failure with exacerbation. History Of Present Illness: The patient is on dialysis. She was found to have hyponatremia, fluid overload. She was initiated on daily dialysis. She received dialysis yesterday and today. Review of Systems: Denies fever and chills. Denies cough and hemoptysis. Physical Examination: Lungs: Coarse breath sounds bilaterally. Heart: S1, S2. Abdomen: Soft, benign. Extremities: Slight edema. Impression And Plan: 1. End-stage renal disease, fluid overload. Continue dialysis. The patient will have p.o. fluid restriction. The patient is noncompliant and she does not follow strictly fluid restriction. The patient will continue renal diet. 2. Hypertension. Blood pressure stable during dialysis. Monitor blood pressure closely. Adjust ultrafiltration as tolerated. 3. Congestive heart failure, reevaluate troponin to rule out acute coronary syndrome. 4. Breast cancer metastasized, status post radiation chemotherapy. Further workup and management by primary team. 5. Renal osteodystrophy. Monitor phosphorus level. Adjust binders. 6. Hypoalbuminemia. Increase p.o. protein intake. I spent total 36 min including 25 min to coordinate care plan. DEBORAH/BIANCA Voice ID: [id number] Report ID: [id number] SAM
[2018-08-03] MEDS ORDERED: DIPHENHYDRAMINE 25 MG TAB/CAP PO ONE (03:50)
[2018-08-03] MEDS: HYDROMORPHONE HCL 1 MG/ML INJ IV PRN ×2 (04:17→11:01)
[2018-08-03 04:42] LABS: Potassium 4.7 mmol/L (3.5-5.1)
[2018-08-03 06:33] VITALS: BMI 14.3
[2018-08-03] MEDS: PANTOPRAZOLE 40MG TABLET PO SCH (07:30)
[2018-08-03] MEDS: NEPRO SHAKE 237 ML CAN PO SCH (09:00)
[2018-08-03] MEDS: ISOSORBIDE DINIT 20 MG TAB PO SCH (09:00)
[2018-08-03 10:26] VITALS: BP 156/113; TEMP 97.8
--- NOTE | 2018-08-03 14:31 | P.DS ---
Admission Date: 08/03/18 Discharge Date: 08/03/18 Disposition: ROUTINE DISCHARGE Discharge Condition: GOOD Reason for Admission: Difficulty breathing Consultations: Nephrology - Problems (1) COPD (chronic obstructive pulmonary disease) Onset Date: 08/02/18 Current Visit: No Status: Chronic Qualifiers: COPD type: COPD with acute exacerbation Qualified Code(s): J44.1 - Chronic obstructive pulmonary disease with (acute) exacerbation (2) Stage IV breast cancer in female Onset Date: 08/02/18 Current Visit: Yes Status: Chronic (3) CHF (congestive heart failure) Onset Date: 04/08/18 Current Visit: No Status: Acute Qualifiers: Heart failure type: systolic Heart failure chronicity: acute on chronic Qualified Code(s): I50.23 - Acute on chronic systolic (congestive) heart failure (4) ESRD (end stage renal disease) Onset Date: 04/05/18 Current Visit: No Status: Chronic Brief History of Present Illness: Patient is a 53-year-old female with stage IV breast cancer and is on hospice care. She is on hospice care for the breast cancer. However, she got short of breath and was brought to the emergency room. She has a history of end-stage renal disease and is on dialysis. She also has Raynaud's phenomenon. She does appear to have clubbing in a couple of her fingers however this is not seen in all her digits. I am not sure she has additional findings related to her illness. Because of her hospice diagnosis will continue with supportive care. Will also Consult nephrology for hemodialysis and will start her on treatment for her COPD. Anticipate discharge home in 24-48 hr. Hospital Course: Patient remained stable while here in the hospital Patient was initially admitted to the hospital for dyspnea was found to have COPD exacerbation. Patient was started on duo nebs, steroids, oxygen here in the hospital. Patient had marked improvement in her symptoms and was switched over to oral steroids. Patient then was discharged home under stable condition. While here in the hospital patient also received hemodialysis for her chronic kidney disease. Patient does have hemodialysis at home daily that she does. Patient remained stable throughout the dialysis session and no complications were noted. Patient then was discharged home once nephrology cleared her for discharge. Patient does have a history of stage IV breast cancer with poor prognosis. Currently on hospice with daily dialysis and is continuing on chemotherapy drug. Patient was educated extensively on the goal of hospice care at home. Patient stated that she would like currently to be on hospice but at the same time get to treatment necessary. [facility] and patient was discharged home under stable condition Vital Signs/Physical Exam: Temp Pulse Resp BP Pulse Ox 97.8 F 109 H 16 156/113 H 100 08/03/18 08:00 08/03/18 08:00 08/03/18 08:00 08/03/18 08:00 08/03/18 08:00 General: Alert, In no apparent distress HEENT: Atraumatic, PERRLA, EOMI Neck: Supple, JVD not distended Respiratory: Clear to auscultation bilaterally, Normal air movement Cardiovascular: Regular rate/rhythm, Normal S1 S2 Gastrointestinal: Normal bowel sounds, No tenderness Musculoskeletal: No tenderness Integumentary: No rashes Neurological: Normal speech, Normal tone, Normal affect Lymphatics: No axilla or inguinal lymphadenopathy Laboratory Data at Discharge: WBC 5.0 K/uL (4.3-10.9) 08/02/18 05:30 Hgb 13.2 g/dL (12.0-15.0) 08/02/18 05:30 Hct 40.4 % (36.0-45.0) 08/02/18 05:30 Plt Count 46 K/uL (152-406) L* 08/02/18 05:30 PT 13.8 SECONDS (9.5-12.5) H 07/31/18 18:00 INR 1.17 07/31/18 18:00 APTT 29.5 SECONDS (24.3-36.9) 07/31/18 18:00 Sodium 124 mmol/L (136-145) L 08/03/18 04:10 Potassium 4.7 mmol/L (3.5-5.1) 08/03/18 04:10 BUN 27 mg/dL (7-18) H 08/03/18 04:10 Creatinine 2.20 mg/dL (0.55-1.3) H 08/03/18 04:10 Glucose 175 mg/dL (74-106) H 08/03/18 04:10 Magnesium 2.0 mg/dL (1.8-2.4) 07/31/18 18:00 Total Bilirubin 1.0 mg/dL (0.2-1.0) 08/02/18 05:30 AST 30 U/L (15-37) 08/02/18 05:30 ALT 53 U/L (12-78) 08/02/18 05:30 Alkaline Phosphatase 231 U/L (45-117) H 08/02/18 05:30 Lipase 189 U/L (73-393) 07/31/18 18:00 Home Medications: Carvedilol 3.125 mg PO BEDTIME 04/03/18 ALPRAZolam [Xanax*] 0.25 mg PO BID PRN 08/01/18 Sennosides [Senna] 1 tab PO BEDTIME 08/01/18 Isosorbide Dinit [Isordil*] 20 mg PO BID #60 tab 08/03/18 predniSONE [Prednisone*] 10 mg PO BID #10 tab 08/03/18 New Medications: Isosorbide Dinit [Isordil*] 20 mg PO BID #60 tab predniSONE [Prednisone*] 10 mg PO BID #10 tab Diet: Regular Activity: Ad zhang Followup: Maricruz Wei MD [ACTIVE - CAN ADMIT] - 1 Week
[2018-08-03] MEDS ORDERED: NYSTATIN 500,000 UNIT/5 ML UDC PO ONE (15:48)
[2018-08-03] MEDS ORDERED: HEPARIN 500 UNIT/5 ML SYR IV PRN (16:50)
[2018-08-03 18:00] VITALS: O2SAT 99
--- NOTE | 2018-08-03 20:58 | PN ---
Date of Progress Note: 08/03/2018 Subjective: The patient is still feeling depressed. No pain. Physical Examination: Vital Signs: Blood pressure 156/99, pulse of 80. Chest: Faint crackles on the right base. Heart: S1, S2. Systolic murmur. Abdomen: Soft, nontender. Extremities: No edema. Cyanosis on both upper extremity. Laboratory Data: H and H of 13.2/40.4. Sodium 124, potassium 4.7, bicarb 22, BUN 27, creatinine 2.2 , calcium of 9. Current Medications: The patient on its include diphenhydramine, heparin, isosorbide, carvedilol 3.1 25, alprazolam, Nepro, pantoprazole, Solu-Medrol. Assessment And Plan: 1.End-stage renal disease, persistent hypervolemia. We will continue daily dialysis. The patient s till anuric. We will try to establish volume control with the daily dialysis. 2.Hypertension, controlled, optimal. Continue current medication. 3.Cancer with metastasis. Overall poor prognosis. The patient refused to continue on hospice. I h ad long discussion with the patient regarding placement at [facility]. The patient started brandon velasquez about it to consider it as outpatient and will follow up. 4.Chronic obstructive pulmonary disease exacerbation. Continue current treatment. The patient bradford ajit from the renal standpoint for discharge planning. ZIA Voice ID: [id number] Report ID: [id number]
== END 2018-08-03 17:50 | disposition hospice, home (50) | DRG 190 ==
LOC: ER 15:21 → ERHOLD 08-01 01:10 → 4TH 08-01 01:28 → OBSVTOIN 08-03 01:10
PROVIDERS: ADMIT Hospitalist; ATTEND Family Medicine
PROC: 5A1D70Z Performance of Urinary Filtration, Intermittent, Less than 6 Hours Per Day (ICD-10-PCS; principal; 2018-08-01)
PROC: 5A1D70Z Performance of Urinary Filtration, Intermittent, Less than 6 Hours Per Day (ICD-10-PCS; 2018-08-02)
PROC: 5A1D70Z Performance of Urinary Filtration, Intermittent, Less than 6 Hours Per Day (ICD-10-PCS; 2018-08-03)
DX: J44.1 Chronic obstructive pulmonary disease with (acute) exacerbation (principal); I50.23 Acute on chronic systolic (congestive) heart failure; J96.00 Acute respiratory failure, unspecified whether with hypoxia or hypercapnia; N18.6 End stage renal disease; C78.00 Secondary malignant neoplasm of unspecified lung; C79.51 Secondary malignant neoplasm of bone; E87.1 Hypo-osmolality and hyponatremia; C50.919 Malignant neoplasm of unspecified site of unspecified female breast; Z88.1 Allergy status to other antibiotic agents; Z88.2 Allergy status to sulfonamides; Z88.8 Allergy status to other drugs, medicaments and biological substances; I73.00 Raynaud's syndrome without gangrene; Z99.2 Dependence on renal dialysis; R53.83 Other fatigue; D69.6 Thrombocytopenia, unspecified; N25.0 Renal osteodystrophy; E88.09 Other disorders of plasma-protein metabolism, not elsewhere classified
CPT/HCPCS: 36415; 71045; 80048; 80053; 80076; 82805; 83605; 83690; 83735; 83880; 84145; 85025; 85610; 85730; 87040; 90935; 93005; 94640; 96365; 96375; 99285; C9113; G0257; G0378; J0696; J1170; J1642; J1644; J2550; J2930; J3010; J7030; P9047

== ENCOUNTER 2018-08-07 23:19 | Inpatient (IN) | payer OTHER ==
--- OUTSIDE RECORDS SUMMARY | 2018-08-07 23:25 | XMS REPORT ---
:1965 Author Organization [facility] Address [address] [place] [id number] Care Team Providers Name Role Phone BETTY [...] Value Reference Range Comments IRON (BEAKER) (test nknm=620) 49 ug/dL 40-160 TOTAL IRON BINDING CAPACITY (BEAKER) (test bmmn=158) 216 ug/dL 250-450 IRON % SATURATION (2) (BEAKER) (test wuoa=1436) 23 % 20-55 BASIC METABOLIC [id number] 09:16:00 Test Item Value Reference Range Comments SODIUM (BEAKER) (test 133 meq/L 135-148 bslc=309) POTASSIUM (BEAKER) (test 3.2 meq/L 3.6-5.5 caec=500) CHLORIDE (BEAKER) (test 97 meq/L 98-106 fxrl=103) CO2 (BEAKER) (test 24 meq/L 20-29 fkuj=241) BLOOD UREA NITROGEN 16 mg/dL 10-26 (BEAKER) (test rplr=158) CREATININE (BEAKER) (test 2.18 mg/dL 0.50-1.20 wzyo=330) GLUCOSE RANDOM (BEAKER) 130 mg/dL 70-110 (test fgqt=812) CALCIUM (BEAKER) (test 8.4 mg/dL 8.5-10.5 yudp=016) EGFR (BEAKER) (test 24 mL/min/1.73 sq m ESTIMATED GFR IS NOT cayn=8398) ACCURATE CREATININE CLEARANCE IN PREDICTING GLOMERULAR FILTRATION RATE. ESTIMATED GFR IS NOT APPLICABLE FOR DIALYSIS PATIENTS. [id number] 06:45:00 Test Item Value Reference Range Comments FERRITIN (BEAKER) (test dxoi=766) 4333 ng/mL 10-291 CBC W/PLT COUNT & AUTO [id number] 05:54:00 Test Item Value Reference Range Comments WHITE BLOOD CELL COUNT (BEAKER) (test abwa=310) 5.2 K/ L 4.0-10.0 RED BLOOD CELL COUNT (BEAKER) (test cwqb=273) 2.63 M/ L 4.00-5.00 HEMOGLOBIN (BEAKER) (test duvj=645) 8.6 GM/DL 12.0-15.5 HEMATOCRIT (BEAKER) (test wgeh=669) 27.2 % 36.0-46.0 MEAN CORPUSCULAR VOLUME (BEAKER) (test zuwd=385) 103.4 fL 82.0-99.0 MEAN CORPUSCULAR HEMOGLOBIN (BEAKER) (test 32.7 pg 27.0-33.0 tfvr=158) MEAN CORPUSCULAR HEMOGLOBIN CONC (BEAKER) (test 31.6 GM/DL 32.0-36.0 ifwf=279) RED CELL DISTRIBUTION WIDTH (BEAKER) (test 19.9 % 12.0-15.0 uvuf=812) PLATELET COUNT (BEAKER) (test ntrt=357) 135 K/CU MM 150-430 MEAN PLATELET VOLUME (BEAKER) (test xcna=605) 11.1 fL 6.0-11.5 NUCLEATED RED BLOOD CELLS (BEAKER) (test 0 /100 WBC 0-0 fevt=148) NEUTROPHILS RELATIVE PERCENT (BEAKER) (test 80 % fxkc=326) LYMPHOCYTES RELATIVE PERCENT (BEAKER) (test 10 % fupl=369) MONOCYTES RELATIVE PERCENT (BEAKER) (test 8 % lsmb=222) EOSINOPHILS RELATIVE PERCENT (BEAKER) (test 1 % whef=714) BASOPHILS RELATIVE PERCENT (BEAKER) (test 0 % hjbu=323) NEUTROPHILS ABSOLUTE COUNT (BEAKER) (test 4.17 K/ L 1.80-8.00 nykh=457) LYMPHOCYTES ABSOLUTE COUNT (BEAKER) (test 0.51 K/ L 1.48-4.50 njtk=076) MONOCYTES ABSOLUTE COUNT (BEAKER) (test 0.41 K/ L 0.00-1.30 iymr=940) EOSINOPHILS ABSOLUTE COUNT (BEAKER) (test 0.04 K/ L 0.00-0.50 hpfw=950) BASOPHILS ABSOLUTE COUNT (BEAKER) (test 0.02 K/ L 0.00-0.20 ehje=298) IMMATURE GRANULOCYTES-RELATIVE PERCENT (BEAKER) 1 % 0-0 (test wwam=9904) HEMOGLOBIN [id number] 05:50:00 Test Item Value Reference Range Comments HEMOGLOBIN A1C (BEAKER) (test olxs=019) 4.6 % 4.3-6.1 HEMOGLOBIN [id number] 05:50:00 Test Item Value Reference Range Comments HEMOGLOBIN A1C (BEAKER) (test yuqo=066) 4.6 % 4.3-6.1 TROPONIN [id number] 19:01:00 Test Item Value Reference Range Comments TROPONIN I (BEAKER) (test ulqn=602) 0.11 ng/mL 0.00-0.15 Troponin I (TnI) levels [...] acute neurological disease, and persistent tachyarrhythmia.COMPREHENSIVE METABOLIC [id number] 18:55:00 Test Item Value Reference Range Comments TOTAL PROTEIN (BEAKER) 7.9 gm/dL 6.0-8.5 (test eoag=453) ALBUMIN (BEAKER) (test 3.8 g/dL 3.5-5.0 ldpg=4170) ALKALINE PHOSPHATASE 73 U/L 30-115 (BEAKER) (test vzwp=345) BILIRUBIN TOTAL (BEAKER) 0.7 mg/dL 0.1-1.2 (test lral=823) SODIUM (BEAKER) (test 130 meq/L 135-148 evoh=708) POTASSIUM (BEAKER) (test 4.5 meq/L 3.6-5.5 wxij=150) CHLORIDE (BEAKER) (test 93 meq/L 98-106 qyrj=318) CO2 (BEAKER) (test 19 meq/L 20-29 iept=846) BLOOD UREA NITROGEN 56 mg/dL 10-26 (BEAKER) (test vnxv=392) CREATININE (BEAKER) (test 4.74 mg/dL 0.50-1.20 iwwa=118) GLUCOSE RANDOM (BEAKER) 165 mg/dL 70-110 (test xfel=789) CALCIUM (BEAKER) (test 8.7 mg/dL 8.5-10.5 icsf=932) AST (SGOT) (BEAKER) (test 40 U/L 5-40 spue=744) ALT (SGPT) (BEAKER) (test 55 U/L 5-50 titf=742) EGFR (BEAKER) (test 10 mL/min/1.73 sq m ESTIMATED GFR IS NOT yidv=7358) ACCURATE CREATININE CLEARANCE IN PREDICTING GLOMERULAR FILTRATION RATE. ESTIMATED GFR IS NOT APPLICABLE FOR DIALYSIS PATIENTS. CBC W/PLT COUNT & AUTO [id number] 18:32:00 Test Item Value Reference Range Comments WHITE BLOOD CELL COUNT (BEAKER) (test voed=032) 6.7 K/ L 4.0-10.0 RED BLOOD CELL COUNT (BEAKER) (test sjjb=787) 2.68 M/ L 4.00-5.00 HEMOGLOBIN (BEAKER) (test cjpx=643) 8.6 GM/DL 12.0-15.5 HEMATOCRIT (BEAKER) (test clrd=737) 27.7 % 36.0-46.0 MEAN CORPUSCULAR VOLUME (BEAKER) (test tzqp=073) 103.4 fL 82.0-99.0 MEAN CORPUSCULAR HEMOGLOBIN (BEAKER) (test 32.1 pg 27.0-33.0 fuoh=868) MEAN CORPUSCULAR HEMOGLOBIN CONC (BEAKER) (test 31.0 GM/DL 32.0-36.0 gsdw=591) RED CELL DISTRIBUTION WIDTH (BEAKER) (test 19.1 % 12.0-15.0 mdoa=312) PLATELET COUNT (BEAKER) (test plpa=497) 148 K/CU MM 150-430 MEAN PLATELET VOLUME (BEAKER) (test dygv=016) 10.4 fL 6.0-11.5 NUCLEATED RED BLOOD CELLS (BEAKER) (test 0 /100 WBC 0-0 xxpj=317) NEUTROPHILS RELATIVE PERCENT (BEAKER) (test 84 % umln=058) LYMPHOCYTES RELATIVE PERCENT (BEAKER) (test 8 % hndi=528) MONOCYTES RELATIVE PERCENT (BEAKER) (test 7 % oadb=180) EOSINOPHILS RELATIVE PERCENT (BEAKER) (test 0 % nknt=954) BASOPHILS RELATIVE PERCENT (BEAKER) (test 0 % ktkb=994) NEUTROPHILS ABSOLUTE COUNT (BEAKER) (test 5.59 K/ L 1.80-8.00 guzy=288) LYMPHOCYTES ABSOLUTE COUNT (BEAKER) (test 0.54 K/ L 1.48-4.50 jbpd=917) MONOCYTES ABSOLUTE COUNT (BEAKER) (test 0.49 K/ L 0.00-1.30 qtzd=421) EOSINOPHILS ABSOLUTE COUNT (BEAKER) (test 0.01 K/ L 0.00-0.50 tnkq=563) BASOPHILS ABSOLUTE COUNT (BEAKER) (test 0.03 K/ L 0.00-0.20 vafu=563) IMMATURE GRANULOCYTES-RELATIVE PERCENT (BEAKER) 1 % 0-0 (test duqx=8278) MARIA LUISA, THROMBIN [id number] 08:05:00Reason for exam:->Thrombin injection to right SFAFINAL REPORT Ultrasound guided thrombin injection, 04/28/2018. 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 Modality: Fluoroscopy. Sedation: None. Tire Molder: Zee. Directory Assistance Operator: Jorge. Approach: Right inguinal region. Estimated [...] Contrast was injected through the micropuncture 4 [place] sheath for a DSA run to evaluate [...] MDReport Verified Date/Time: 04/29/2018 08:05:43 Reading Location: [facility] [address] Radiology Reading Room BASIC METABOLIC [id number] 04:40:00 Test Item Value Reference Range Comments SODIUM (BEAKER) (test 131 meq/L 136-145 rziy=787) POTASSIUM (BEAKER) (test 4.5 meq/L 3.5-5.1 Specimen slightly rlxs=523) hemolyzed CHLORIDE (BEAKER) (test 100 meq/L 98-107 tglz=436) CO2 (BEAKER) (test 22 meq/L 22-29 omzi=389) BLOOD UREA NITROGEN 29 mg/dL 7-21 (BEAKER) (test ouno=982) CREATININE (BEAKER) (test 3.52 mg/dL 0.57-1.25 Specimen slightly idlj=092) hemolyzed GLUCOSE RANDOM (BEAKER) 110 mg/dL 70-105 (test kczf=611) CALCIUM (BEAKER) (test 8.6 mg/dL 8.4-10.2 bsca=725) EGFR (BEAKER) (test 14 mL/min/1.73 sq m ESTIMATED GFR IS NOT jddt=8993) ACCURATE CREATININE CLEARANCE IN PREDICTING GLOMERULAR FILTRATION RATE. ESTIMATED GFR IS NOT APPLICABLE FOR DIALYSIS PATIENTS. [id number] 04:37:00 Test Item Value Reference Range Comments MAGNESIUM (BEAKER) (test 2.0 mg/dL 1.6-2.6 Specimen slightly hemolyzed mlsl=072) [id number] 04:37:00 Test Item Value Reference Range Comments PHOSPHORUS (BEAKER) (test 3.1 mg/dL 2.3-4.7 Specimen slightly hemolyzed cnrj=291) CBC W/PLT COUNT & AUTO [id number] 04:27:00 Test Item Value Reference Range Comments WHITE BLOOD CELL COUNT (BEAKER) (test xqem=294) 4.0 K/ L 3.5-10.5 RED BLOOD CELL COUNT (BEAKER) (test dbds=481) 3.04 M/ L 3.93-5.22 HEMOGLOBIN (BEAKER) (test ducr=239) 9.5 GM/DL 11.2-15.7 HEMATOCRIT (BEAKER) (test zeji=880) 30.9 % 34.1-44.9 MEAN CORPUSCULAR VOLUME (BEAKER) (test vfhf=846) 101.6 fL 79.4-94.8 MEAN CORPUSCULAR HEMOGLOBIN (BEAKER) (test 31.3 pg 25.6-32.2 yyog=683) MEAN CORPUSCULAR HEMOGLOBIN CONC (BEAKER) (test 30.7 GM/DL 32.2-35.5 evlq=448) RED CELL DISTRIBUTION WIDTH (BEAKER) (test 18.8 % 11.7-14.4 xgdd=443) PLATELET COUNT (BEAKER) (test evjf=787) 139 K/CU MM 150-450 MEAN PLATELET VOLUME (BEAKER) (test mgtl=722) 11.3 fL 9.4-12.3 NUCLEATED RED BLOOD CELLS (BEAKER) (test 0 /100 WBC 0-0 guwm=897) NEUTROPHILS RELATIVE PERCENT (BEAKER) (test 81 % eiep=924) LYMPHOCYTES RELATIVE PERCENT (BEAKER) (test 10 % qbtp=894) MONOCYTES RELATIVE PERCENT (BEAKER) (test 7 % jbnc=238) EOSINOPHILS RELATIVE PERCENT (BEAKER) (test 1 % qcls=851) BASOPHILS RELATIVE PERCENT (BEAKER) (test 1 % gkdf=141) NEUTROPHILS ABSOLUTE COUNT (BEAKER) (test 3.25 K/ L 1.56-6.13 zaxu=466) LYMPHOCYTES ABSOLUTE COUNT (BEAKER) (test 0.38 K/ L 1.18-3.74 lhpk=586) MONOCYTES ABSOLUTE COUNT (BEAKER) (test 0.28 K/ L 0.24-0.36 unfj=570) EOSINOPHILS ABSOLUTE COUNT (BEAKER) (test 0.04 K/ L 0.04-0.36 nuct=139) BASOPHILS ABSOLUTE COUNT (BEAKER) (test 0.02 K/ L 0.01-0.08 kjdi=756) IMMATURE GRANULOCYTES-RELATIVE PERCENT (BEAKER) 1 % 0-1 (test clhj=0619) TROPONIN [id number] 10:14:00 Test Item Value Reference Range Comments TROPONIN I (BEAKER) (test mhyb=791) 0.08 ng/mL 0.00-0.03 Troponin I (TnI) levels [...] acute neurological disease, and persistent tachyarrhythmia.BASIC METABOLIC [id number] 07:57:00 Test Item Value Reference Range Comments SODIUM (BEAKER) (test 128 meq/L 136-145 lklm=284) POTASSIUM (BEAKER) (test 4.7 meq/L 3.5-5.1 ganm=907) CHLORIDE (BEAKER) (test 94 meq/L 98-107 ygul=320) CO2 (BEAKER) (test 22 meq/L 22-29 dqpq=869) BLOOD UREA NITROGEN 49 mg/dL 7-21 (BEAKER) (test oalj=735) CREATININE (BEAKER) (test 4.78 mg/dL 0.57-1.25 payz=882) GLUCOSE RANDOM (BEAKER) 88 mg/dL 70-105 (test civi=330) CALCIUM (BEAKER) (test 8.4 mg/dL 8.4-10.2 ipmd=852) EGFR (BEAKER) (test 10 mL/min/1.73 sq m ESTIMATED GFR IS NOT bqry=9465) ACCURATE CREATININE CLEARANCE IN PREDICTING GLOMERULAR FILTRATION RATE. ESTIMATED GFR IS NOT APPLICABLE FOR DIALYSIS PATIENTS. [id number] 07:41:00 Test Item Value Reference Range Comments PHOSPHORUS (BEAKER) (test oxri=187) 2.8 mg/dL 2.3-4.7 [id number] 07:41:00 Test Item Value Reference Range Comments MAGNESIUM (BEAKER) (test yxyw=642) 1.8 mg/dL 1.6-2.6 CBC W/PLT COUNT & AUTO [id number] 07:25:00 Test Item Value Reference Range Comments WHITE BLOOD CELL COUNT (BEAKER) (test oudb=151) 2.9 K/ L 3.5-10.5 RED BLOOD CELL COUNT (BEAKER) (test jkyh=038) 2.89 M/ L 3.93-5.22 HEMOGLOBIN (BEAKER) (test onrm=554) 9.1 GM/DL 11.2-15.7 HEMATOCRIT (BEAKER) (test azka=916) 29.2 % 34.1-44.9 MEAN CORPUSCULAR VOLUME (BEAKER) (test eijk=032) 101.0 fL 79.4-94.8 MEAN CORPUSCULAR HEMOGLOBIN (BEAKER) (test 31.5 pg 25.6-32.2 axio=782) MEAN CORPUSCULAR HEMOGLOBIN CONC (BEAKER) (test 31.2 GM/DL 32.2-35.5 pgjg=606) RED CELL DISTRIBUTION WIDTH (BEAKER) (test 18.5 % 11.7-14.4 voql=283) PLATELET COUNT (BEAKER) (test urlg=481) 110 K/CU MM 150-450 MEAN PLATELET VOLUME (BEAKER) (test ruqk=021) 11.3 fL 9.4-12.3 NUCLEATED RED BLOOD CELLS (BEAKER) (test 0 /100 WBC 0-0 unyc=474) NEUTROPHILS RELATIVE PERCENT (BEAKER) (test 77 % uhon=749) LYMPHOCYTES RELATIVE PERCENT (BEAKER) (test 12 % qauy=576) MONOCYTES RELATIVE PERCENT (BEAKER) (test 9 % qkib=996) EOSINOPHILS RELATIVE PERCENT (BEAKER) (test 2 % tbpb=681) BASOPHILS RELATIVE PERCENT (BEAKER) (test 0 % fdps=004) NEUTROPHILS ABSOLUTE COUNT (BEAKER) (test 2.20 K/ L 1.56-6.13 udjg=529) LYMPHOCYTES ABSOLUTE COUNT (BEAKER) (test 0.33 K/ L 1.18-3.74 gwwt=622) MONOCYTES ABSOLUTE COUNT (BEAKER) (test 0.26 K/ L 0.24-0.36 vhoj=584) EOSINOPHILS ABSOLUTE COUNT (BEAKER) (test 0.05 K/ L 0.04-0.36 lcip=723) BASOPHILS ABSOLUTE COUNT (BEAKER) (test 0.01 K/ L 0.01-0.08 gfqf=602) IMMATURE GRANULOCYTES-RELATIVE PERCENT (BEAKER) 0 % 0-1 (test jloc=6545) CBC W/PLT COUNT & AUTO [id number] 14:22:00 Test Item Value Reference Range Comments WHITE BLOOD CELL COUNT (BEAKER) (test wwrk=171) 2.4 K/ L 3.5-10.5 RED BLOOD CELL COUNT (BEAKER) (test xiid=550) 2.75 M/ L 3.93-5.22 HEMOGLOBIN (BEAKER) (test oegz=020) 8.8 GM/DL 11.2-15.7 HEMATOCRIT (BEAKER) (test vgpe=929) 27.8 % 34.1-44.9 MEAN CORPUSCULAR VOLUME (BEAKER) (test maxd=407) 101.1 fL 79.4-94.8 MEAN CORPUSCULAR HEMOGLOBIN (BEAKER) (test 32.0 pg 25.6-32.2 vbta=182) MEAN CORPUSCULAR HEMOGLOBIN CONC (BEAKER) (test 31.7 GM/DL 32.2-35.5 esit=774) RED CELL DISTRIBUTION WIDTH (BEAKER) (test 18.9 % 11.7-14.4 wvfw=057) PLATELET COUNT (BEAKER) (test zwnh=704) 118 K/CU MM 150-450 MEAN PLATELET VOLUME (BEAKER) (test tlyl=176) 10.8 fL 9.4-12.3 NUCLEATED RED BLOOD CELLS (BEAKER) (test 0 /100 WBC 0-0 uwcx=175) NEUTROPHILS RELATIVE PERCENT (BEAKER) (test 78 % ujqr=388) LYMPHOCYTES RELATIVE PERCENT (BEAKER) (test 11 % sncp=886) MONOCYTES RELATIVE PERCENT (BEAKER) (test 8 % raty=835) EOSINOPHILS RELATIVE PERCENT (BEAKER) (test 2 % uwwc=617) BASOPHILS RELATIVE PERCENT (BEAKER) (test 0 % icyd=942) NEUTROPHILS ABSOLUTE COUNT (BEAKER) (test 1.86 K/ L 1.56-6.13 dvgn=985) LYMPHOCYTES ABSOLUTE COUNT (BEAKER) (test 0.27 K/ L 1.18-3.74 jzhv=429) MONOCYTES ABSOLUTE COUNT (BEAKER) (test 0.19 K/ L 0.24-0.36 noag=466) EOSINOPHILS ABSOLUTE COUNT (BEAKER) (test 0.05 K/ L 0.04-0.36 iyyf=427) BASOPHILS ABSOLUTE COUNT (BEAKER) (test 0.01 K/ L 0.01-0.08 bewn=000) IMMATURE GRANULOCYTES-RELATIVE PERCENT (BEAKER) 0 % 0-1 (test twyl=5887) BASIC METABOLIC [id number] 07:59:00 Test Item Value Reference Range Comments SODIUM (BEAKER) (test 131 meq/L 136-145 vuso=668) POTASSIUM (BEAKER) (test 4.0 meq/L 3.5-5.1 imfv=883) CHLORIDE (BEAKER) (test 96 meq/L 98-107 asnv=629) CO2 (BEAKER) (test 23 meq/L 22-29 innq=283) BLOOD UREA NITROGEN 31 mg/dL 7-21 (BEAKER) (test lgri=731) CREATININE (BEAKER) (test 3.42 mg/dL 0.57-1.25 sdox=635) GLUCOSE RANDOM (BEAKER) 94 mg/dL 70-105 (test hewj=003) CALCIUM (BEAKER) (test 8.8 mg/dL 8.4-10.2 nfuu=755) EGFR (BEAKER) (test 14 mL/min/1.73 sq m ESTIMATED GFR IS NOT bkvr=8912) ACCURATE CREATININE CLEARANCE IN PREDICTING GLOMERULAR FILTRATION RATE. ESTIMATED GFR IS NOT APPLICABLE FOR DIALYSIS PATIENTS. [id number] 07:53:00 Test Item Value Reference Range Comments PHOSPHORUS (BEAKER) (test pgod=949) 3.1 mg/dL 2.3-4.7 [id number] 07:53:00 Test Item Value Reference Range Comments MAGNESIUM (BEAKER) (test kplm=931) 1.8 mg/dL 1.6-2.6 CBC W/PLT COUNT & AUTO [id number] 07:42:00 Test Item Value Reference Range Comments WHITE BLOOD CELL COUNT (BEAKER) (test wktw=865) 2.6 K/ L 3.5-10.5 RED BLOOD CELL COUNT (BEAKER) (test uwzt=508) 2.89 M/ L 3.93-5.22 HEMOGLOBIN (BEAKER) (test euyh=522) 9.0 GM/DL 11.2-15.7 HEMATOCRIT (BEAKER) (test ihew=537) 29.1 % 34.1-44.9 MEAN CORPUSCULAR VOLUME (BEAKER) (test jsws=133) 100.7 fL 79.4-94.8 MEAN CORPUSCULAR HEMOGLOBIN (BEAKER) (test 31.1 pg 25.6-32.2 wyqj=548) MEAN CORPUSCULAR HEMOGLOBIN CONC (BEAKER) (test 30.9 GM/DL 32.2-35.5 sydr=844) RED CELL DISTRIBUTION WIDTH (BEAKER) (test 18.9 % 11.7-14.4 nbqs=270) PLATELET COUNT (BEAKER) (test aezd=290) 106 K/CU MM 150-450 MEAN PLATELET VOLUME (BEAKER) (test tyxi=831) 11.1 fL 9.4-12.3 NUCLEATED RED BLOOD CELLS (BEAKER) (test 0 /100 WBC 0-0 mgds=567) NEUTROPHILS RELATIVE PERCENT (BEAKER) (test 77 % nzmb=492) LYMPHOCYTES RELATIVE PERCENT (BEAKER) (test 10 % omev=633) MONOCYTES RELATIVE PERCENT (BEAKER) (test 10 % jezd=851) EOSINOPHILS RELATIVE PERCENT (BEAKER) (test 2 % xqzq=390) BASOPHILS RELATIVE PERCENT (BEAKER) (test 1 % txnm=650) NEUTROPHILS ABSOLUTE COUNT (BEAKER) (test 1.97 K/ L 1.56-6.13 daej=715) LYMPHOCYTES ABSOLUTE COUNT (BEAKER) (test 0.25 K/ L 1.18-3.74 vbxk=915) MONOCYTES ABSOLUTE COUNT (BEAKER) (test 0.25 K/ L 0.24-0.36 mjxx=001) EOSINOPHILS ABSOLUTE COUNT (BEAKER) (test 0.05 K/ L 0.04-0.36 biwa=263) BASOPHILS ABSOLUTE COUNT (BEAKER) (test 0.02 K/ L 0.01-0.08 xsoj=284) IMMATURE GRANULOCYTES-RELATIVE PERCENT (BEAKER) 1 % 0-1 (test nioq=2668) CBC W/PLT COUNT & AUTO [id number] 05:15:00 Test Item Value Reference Range Comments WHITE BLOOD CELL COUNT (BEAKER) (test pgga=437) 2.8 K/ L 3.5-10.5 RED BLOOD CELL COUNT (BEAKER) (test ymmy=430) 2.86 M/ L 3.93-5.22 HEMOGLOBIN (BEAKER) (test tdaf=398) 9.1 GM/DL 11.2-15.7 HEMATOCRIT (BEAKER) (test bilm=331) 28.6 % 34.1-44.9 MEAN CORPUSCULAR VOLUME (BEAKER) (test itrn=546) 100.0 fL 79.4-94.8 MEAN CORPUSCULAR HEMOGLOBIN (BEAKER) (test 31.8 pg 25.6-32.2 asyv=062) MEAN CORPUSCULAR HEMOGLOBIN CONC (BEAKER) (test 31.8 GM/DL 32.2-35.5 hnxt=440) RED CELL DISTRIBUTION WIDTH (BEAKER) (test 18.8 % 11.7-14.4 ujmb=232) PLATELET COUNT (BEAKER) (test ompe=366) 80 K/CU MM 150-450 MEAN PLATELET VOLUME (BEAKER) (test nxtr=965) 11.2 fL 9.4-12.3 NUCLEATED RED BLOOD CELLS (BEAKER) (test 0 /100 WBC 0-0 hvds=562) NEUTROPHILS RELATIVE PERCENT (BEAKER) (test 76 % zjbh=056) LYMPHOCYTES RELATIVE PERCENT (BEAKER) (test 13 % gpel=682) MONOCYTES RELATIVE PERCENT (BEAKER) (test 8 % woic=138) EOSINOPHILS RELATIVE PERCENT (BEAKER) (test 1 % xifk=200) BASOPHILS RELATIVE PERCENT (BEAKER) (test 0 % fxoc=912) NEUTROPHILS ABSOLUTE COUNT (BEAKER) (test 2.13 K/ L 1.56-6.13 ezmi=294) LYMPHOCYTES ABSOLUTE COUNT (BEAKER) (test 0.37 K/ L 1.18-3.74 qpeb=868) MONOCYTES ABSOLUTE COUNT (BEAKER) (test doau=534) 0.23 K/ L 0.24-0.36 EOSINOPHILS ABSOLUTE COUNT (BEAKER) (test 0.04 K/ L 0.04-0.36 gsqq=158) BASOPHILS ABSOLUTE COUNT (BEAKER) (test ypei=822) 0.01 K/ L 0.01-0.08 IMMATURE GRANULOCYTES-RELATIVE PERCENT (BEAKER) 0 % 0-1 (test vqxb=1093) BASIC METABOLIC [id number] 04:41:00 Test Item Value Reference Range Comments SODIUM (BEAKER) (test 129 meq/L 136-145 rsnh=489) POTASSIUM (BEAKER) (test 5.0 meq/L 3.5-5.1 ngni=816) CHLORIDE (BEAKER) (test 96 meq/L 98-107 liub=720) CO2 (BEAKER) (test 20 meq/L 22-29 obbn=234) BLOOD UREA NITROGEN 65 mg/dL 7-21 (BEAKER) (test faea=649) CREATININE (BEAKER) (test 5.28 mg/dL 0.57-1.25 bwcx=478) GLUCOSE RANDOM (BEAKER) 101 mg/dL 70-105 (test plmr=782) CALCIUM (BEAKER) (test 9.0 mg/dL 8.4-10.2 dnwe=176) EGFR (BEAKER) (test 9 mL/min/1.73 sq m ESTIMATED GFR IS NOT jmyc=2140) ACCURATE CREATININE CLEARANCE IN PREDICTING GLOMERULAR FILTRATION RATE. ESTIMATED GFR IS NOT APPLICABLE FOR DIALYSIS PATIENTS. [id number] 04:39:00 Test Item Value Reference Range Comments PHOSPHORUS (BEAKER) (test yqyc=382) 3.4 mg/dL 2.3-4.7 [id number] 04:39:00 Test Item Value Reference Range Comments MAGNESIUM (BEAKER) (test edyc=685) 2.0 mg/dL 1.6-2.6 [id number] 23:54:00 Test Item Value Reference Range Comments HAPTOGLOBIN (BEAKER) (test wcef=229) < mg/dL 14-258 CBC W/PLT COUNT & AUTO [id number] 23:39:00 Test Item Value Reference Range Comments WHITE BLOOD CELL COUNT (BEAKER) (test yfns=283) 3.3 K/ L 3.5-10.5 RED BLOOD CELL COUNT (BEAKER) (test hxlj=603) 3.06 M/ L 3.93-5.22 HEMOGLOBIN (BEAKER) (test wwew=322) 9.6 GM/DL 11.2-15.7 HEMATOCRIT (BEAKER) (test gqjt=593) 30.3 % 34.1-44.9 MEAN CORPUSCULAR VOLUME (BEAKER) (test qagn=526) 99.0 fL 79.4-94.8 MEAN CORPUSCULAR HEMOGLOBIN (BEAKER) (test 31.4 pg 25.6-32.2 uein=280) MEAN CORPUSCULAR HEMOGLOBIN CONC (BEAKER) (test 31.7 GM/DL 32.2-35.5 zoth=689) RED CELL DISTRIBUTION WIDTH (BEAKER) (test 18.8 % 11.7-14.4 tdvx=981) PLATELET COUNT (BEAKER) (test bsxm=936) 98 K/CU MM 150-450 MEAN PLATELET VOLUME (BEAKER) (test wavb=712) 11.5 fL 9.4-12.3 NUCLEATED RED BLOOD CELLS (BEAKER) (test 0 /100 WBC 0-0 ksbf=297) NEUTROPHILS RELATIVE PERCENT (BEAKER) (test 79 % vrmq=570) LYMPHOCYTES RELATIVE PERCENT (BEAKER) (test 12 % rlop=280) MONOCYTES RELATIVE PERCENT (BEAKER) (test 7 % iljq=354) EOSINOPHILS RELATIVE PERCENT (BEAKER) (test 1 % lrfb=653) BASOPHILS RELATIVE PERCENT (BEAKER) (test 1 % fqkw=088) NEUTROPHILS ABSOLUTE COUNT (BEAKER) (test 2.64 K/ L 1.56-6.13 hgbu=105) LYMPHOCYTES ABSOLUTE COUNT (BEAKER) (test 0.40 K/ L 1.18-3.74 zsck=974) MONOCYTES ABSOLUTE COUNT (BEAKER) (test apfr=876) 0.22 K/ L 0.24-0.36 EOSINOPHILS ABSOLUTE COUNT (BEAKER) (test 0.04 K/ L 0.04-0.36 pocm=005) BASOPHILS ABSOLUTE COUNT (BEAKER) (test kngy=534) 0.02 K/ L 0.01-0.08 IMMATURE GRANULOCYTES-RELATIVE PERCENT (BEAKER) 0 % 0-1 (test bjng=4329) HEPATITIS B SURFACE [id number] 21:44:00 Test Item Value Reference Range Comments HEPATITIS B SURFACE ANTIGEN (2) (BEAKER) (test Nonreactive Nonreactive gtxq=6671) CBC W/PLT COUNT & AUTO [id number] 21:03:00 Test Item Value Reference Range Comments WHITE BLOOD CELL COUNT (BEAKER) (test aykt=979) 3.3 K/ L 3.5-10.5 RED BLOOD CELL COUNT (BEAKER) (test qpin=668) 2.96 M/ L 3.93-5.22 HEMOGLOBIN (BEAKER) (test etfc=832) 9.4 GM/DL 11.2-15.7 HEMATOCRIT (BEAKER) (test ijqu=995) 29.7 % 34.1-44.9 MEAN CORPUSCULAR VOLUME (BEAKER) (test xndy=069) 100.3 fL 79.4-94.8 MEAN CORPUSCULAR HEMOGLOBIN (BEAKER) (test 31.8 pg 25.6-32.2 uqls=547) MEAN CORPUSCULAR HEMOGLOBIN CONC (BEAKER) (test 31.6 GM/DL 32.2-35.5 ieel=410) RED CELL DISTRIBUTION WIDTH (BEAKER) (test 19.0 % 11.7-14.4 wyge=070) PLATELET COUNT (BEAKER) (test pnnc=119) 100 K/CU MM 150-450 MEAN PLATELET VOLUME (BEAKER) (test ksup=427) 10.2 fL 9.4-12.3 NUCLEATED RED BLOOD CELLS (BEAKER) (test 0 /100 WBC 0-0 rkfj=596) NEUTROPHILS RELATIVE PERCENT (BEAKER) (test 80 % vcrq=502) LYMPHOCYTES RELATIVE PERCENT (BEAKER) (test 10 % ofhj=912) MONOCYTES RELATIVE PERCENT (BEAKER) (test 8 % lviv=799) EOSINOPHILS RELATIVE PERCENT (BEAKER) (test 1 % zikj=623) BASOPHILS RELATIVE PERCENT (BEAKER) (test 0 % clum=763) NEUTROPHILS ABSOLUTE COUNT (BEAKER) (test 2.59 K/ L 1.56-6.13 oyxz=091) LYMPHOCYTES ABSOLUTE COUNT (BEAKER) (test 0.33 K/ L 1.18-3.74 jphj=024) MONOCYTES ABSOLUTE COUNT (BEAKER) (test 0.26 K/ L 0.24-0.36 ptak=884) EOSINOPHILS ABSOLUTE COUNT (BEAKER) (test 0.04 K/ L 0.04-0.36 sffq=277) BASOPHILS ABSOLUTE COUNT (BEAKER) (test 0.01 K/ L 0.01-0.08 qspc=057) IMMATURE GRANULOCYTES-RELATIVE PERCENT (BEAKER) 1 % 0-1 (test jnds=5817) PERIPHERAL BLOOD SMEAR - HOLD [id number] 16:54:00 Test Item Value Reference Range Comments PERIPHERAL SMEAR SAVE (BEAKER) (test zhnk=9580) saved LACTATE DEHYDROGENASE (LDH)[id number] 16:40:00 Test Item Value Reference Range Comments LACTATE DEHYDROGENASE (BEAKER) (test wuyo=686) 332 U/L 125-220 CBC W/PLT COUNT & AUTO [id number] 16:27:00 Test Item Value Reference Range Comments WHITE BLOOD CELL COUNT (BEAKER) (test vccn=747) 2.7 K/ L 3.5-10.5 RED BLOOD CELL COUNT (BEAKER) (test tizk=460) 3.15 M/ L 3.93-5.22 HEMOGLOBIN (BEAKER) (test vtud=808) 10.0 GM/DL 11.2-15.7 HEMATOCRIT (BEAKER) (test uddy=038) 31.5 % 34.1-44.9 MEAN CORPUSCULAR VOLUME (BEAKER) (test geqm=268) 100.0 fL 79.4-94.8 MEAN CORPUSCULAR HEMOGLOBIN (BEAKER) (test 31.7 pg 25.6-32.2 ixdb=195) MEAN CORPUSCULAR HEMOGLOBIN CONC (BEAKER) (test 31.7 GM/DL 32.2-35.5 vyht=619) RED CELL DISTRIBUTION WIDTH (BEAKER) (test 19.0 % 11.7-14.4 hgid=951) PLATELET COUNT (BEAKER) (test bqoc=493) 96 K/CU MM 150-450 MEAN PLATELET VOLUME (BEAKER) (test ylqb=080) 9.8 fL 9.4-12.3 NUCLEATED RED BLOOD CELLS (BEAKER) (test 0 /100 WBC 0-0 kfio=235) NEUTROPHILS RELATIVE PERCENT (BEAKER) (test 76 % shnm=114) LYMPHOCYTES RELATIVE PERCENT (BEAKER) (test 12 % etvi=416) MONOCYTES RELATIVE PERCENT (BEAKER) (test 10 % hnel=696) EOSINOPHILS RELATIVE PERCENT (BEAKER) (test 1 % vqzq=018) BASOPHILS RELATIVE PERCENT (BEAKER) (test 1 % pbkt=110) NEUTROPHILS ABSOLUTE COUNT (BEAKER) (test 2.02 K/ L 1.56-6.13 fjrf=065) LYMPHOCYTES ABSOLUTE COUNT (BEAKER) (test 0.31 K/ L 1.18-3.74 gnzo=464) MONOCYTES ABSOLUTE COUNT (BEAKER) (test hhow=239) 0.27 K/ L 0.24-0.36 EOSINOPHILS ABSOLUTE COUNT (BEAKER) (test 0.03 K/ L 0.04-0.36 wtuv=320) BASOPHILS ABSOLUTE COUNT (BEAKER) (test ingg=842) 0.02 K/ L 0.01-0.08 IMMATURE GRANULOCYTES-RELATIVE PERCENT (BEAKER) 1 % 0-1 (test nsgx=7873) [id number] 07:39:00 Test Item Value Reference Range Comments PHOSPHORUS (BEAKER) (test rotu=288) 3.1 mg/dL 2.3-4.7 [id number] 07:39:00 Test Item Value Reference Range Comments MAGNESIUM (BEAKER) (test esny=855) 2.0 mg/dL 1.6-2.6 BASIC METABOLIC [id number] 07:39:00 Test Item Value Reference Range Comments SODIUM (BEAKER) (test 132 meq/L 136-145 kski=370) POTASSIUM (BEAKER) (test 4.2 meq/L 3.5-5.1 noxu=163) CHLORIDE (BEAKER) (test 97 meq/L 98-107 oqkt=779) CO2 (BEAKER) (test 23 meq/L 22-29 vbme=901) BLOOD UREA NITROGEN 42 mg/dL 7-21 (BEAKER) (test gkcq=980) CREATININE (BEAKER) (test 3.49 mg/dL 0.57-1.25 ebjd=058) GLUCOSE RANDOM (BEAKER) 84 mg/dL 70-105 (test cwug=221) CALCIUM (BEAKER) (test 9.0 mg/dL 8.4-10.2 xvis=921) EGFR (BEAKER) (test 14 mL/min/1.73 sq m ESTIMATED GFR IS NOT dley=1815) ACCURATE CREATININE CLEARANCE IN PREDICTING GLOMERULAR FILTRATION RATE. ESTIMATED GFR IS NOT APPLICABLE FOR DIALYSIS PATIENTS. CBC W/PLT COUNT & AUTO [id number] 07:24:00 Test Item Value Reference Range Comments WHITE BLOOD CELL COUNT (BEAKER) (test yxxj=158) 2.8 K/ L 3.5-10.5 RED BLOOD CELL COUNT (BEAKER) (test ukpi=045) 2.96 M/ L 3.93-5.22 HEMOGLOBIN (BEAKER) (test pjtr=084) 9.5 GM/DL 11.2-15.7 HEMATOCRIT (BEAKER) (test aiyg=036) 29.8 % 34.1-44.9 MEAN CORPUSCULAR VOLUME (BEAKER) (test nvrn=210) 100.7 fL 79.4-94.8 MEAN CORPUSCULAR HEMOGLOBIN (BEAKER) (test 32.1 pg 25.6-32.2 cwbb=562) MEAN CORPUSCULAR HEMOGLOBIN CONC (BEAKER) (test 31.9 GM/DL 32.2-35.5 iwoc=309) RED CELL DISTRIBUTION WIDTH (BEAKER) (test 19.3 % 11.7-14.4 jhpo=460) PLATELET COUNT (BEAKER) (test clbs=904) 95 K/CU MM 150-450 MEAN PLATELET VOLUME (BEAKER) (test uifv=524) 11.3 fL 9.4-12.3 NUCLEATED RED BLOOD CELLS (BEAKER) (test 0 /100 WBC 0-0 xauh=071) NEUTROPHILS RELATIVE PERCENT (BEAKER) (test 77 % faac=501) LYMPHOCYTES RELATIVE PERCENT (BEAKER) (test 12 % ravr=929) MONOCYTES RELATIVE PERCENT (BEAKER) (test 9 % ecej=219) EOSINOPHILS RELATIVE PERCENT (BEAKER) (test 1 % mcoj=212) BASOPHILS RELATIVE PERCENT (BEAKER) (test 0 % gane=610) NEUTROPHILS ABSOLUTE COUNT (BEAKER) (test 2.16 K/ L 1.56-6.13 yarp=793) LYMPHOCYTES ABSOLUTE COUNT (BEAKER) (test 0.32 K/ L 1.18-3.74 fmuv=924) MONOCYTES ABSOLUTE COUNT (BEAKER) (test bpnn=377) 0.26 K/ L 0.24-0.36 EOSINOPHILS ABSOLUTE COUNT (BEAKER) (test 0.03 K/ L 0.04-0.36 fdug=842) BASOPHILS ABSOLUTE COUNT (BEAKER) (test xxpj=428) 0.01 K/ L 0.01-0.08 IMMATURE GRANULOCYTES-RELATIVE PERCENT (BEAKER) 0 % 0-1 (test nbui=7217) BLOOD [id number] 06:00:00 Test Item Value Reference Range Comments CULTURE (BEAKER) (test cypr=0296) No growth in 5 days ANG, CV ACCESS, [id number] 17:46:00Reason for exam:->TDC placement for outpatient HDFINAL REPORT Tunneled dialysis catheter insertion. History: Renal failure. Modality: Sonography and fluoroscopy. Sedation: Versed 0.5 mg and fentanyl 25 mcg was given intravenously for conscious sedation. Vital signs were monitored throughout the procedure by a nurse, and remained stable. Physician intra-service time was 15 minutes. Tire Molder: Lynette. Directory Assistance Operator: None. Approach: Right internal jugular vein Estimatedblood [...] needle into the right atrium. A 4 [place] micropuncture sheath was placed. A subcutaneous tunnel was created in the right anterior chest wall by blunt dissection. A 19 cm 15.5 [place] Dur[place]low 2catheter was brought through the tunnel. [...] Funkort Verified Date/Time: 04/01/2018 17:46:56 Reading Location: [facility] B1 P048 Angio Body Reading Room TISSUE [id number] 11:52:00Surgical Pathology Report Case: [id number] Authorizing Provider: Michelle Ram MD Collected: 03/24/2018 1253 Ordering Location: [address] Received: 03/24/2018 1254 Service Pathologist: Dennise Jo MD Specimen: Kidney, Left, Left kidney needle biopsy KIDNEY, LEFT, NEEDLE BIOPSIES- ACUTE THROMBOTIC MICROANGIOPATHY- MODERATE INTERSTITIAL FIBROSIS AND TUBULAR ATROPHY ( ~40%) Signing Pathologist Direct Phone Line: [phone] signed by Dennise Jo MD on 03/31/2018 [...] Dr. Vital on 03/25/2018 at 10.15 am. [id number], 10292 X3, [id number], 27637 x8, [id number] renal failure evaluationNative left kidney biopsyThe specimen [...] with extensive effacement of foot processes.BASIC METABOLIC [id number] 06:14:00 Test Item Value Reference Range Comments SODIUM (BEAKER) (test 133 meq/L 136-145 lear=729) POTASSIUM (BEAKER) (test 4.6 meq/L 3.5-5.1 yhci=970) CHLORIDE (BEAKER) (test 99 meq/L 98-107 huta=070) CO2 (BEAKER) (test 24 meq/L 22-29 pvul=169) BLOOD UREA NITROGEN 45 mg/dL 7-21 (BEAKER) (test eojg=211) CREATININE (BEAKER) (test 4.49 mg/dL 0.57-1.25 keac=057) GLUCOSE RANDOM (BEAKER) 95 mg/dL 70-105 (test iths=781) CALCIUM (BEAKER) (test 8.1 mg/dL 8.4-10.2 vhvz=423) EGFR (BEAKER) (test 10 mL/min/1.73 sq m ESTIMATED GFR IS NOT xczn=3181) ACCURATE CREATININE CLEARANCE IN PREDICTING GLOMERULAR FILTRATION RATE. ESTIMATED GFR IS NOT APPLICABLE FOR DIALYSIS PATIENTS. [id number] 06:05:00 Test Item Value Reference Range Comments MAGNESIUM (BEAKER) (test xbcf=846) 1.9 mg/dL 1.6-2.6 CBC W/PLT COUNT & AUTO [id number] 05:20:00 Test Item Value Reference Range Comments WHITE BLOOD CELL COUNT (BEAKER) (test iglo=520) 4.1 K/ L 3.5-10.5 RED BLOOD CELL COUNT (BEAKER) (test ixzn=036) 2.55 M/ L 3.93-5.22 HEMOGLOBIN (BEAKER) (test fwuu=725) 8.0 GM/DL 11.2-15.7 HEMATOCRIT (BEAKER) (test dwua=795) 26.0 % 34.1-44.9 MEAN CORPUSCULAR VOLUME (BEAKER) (test mrtx=808) 102.0 fL 79.4-94.8 MEAN CORPUSCULAR HEMOGLOBIN (BEAKER) (test 31.4 pg 25.6-32.2 jjdd=477) MEAN CORPUSCULAR HEMOGLOBIN CONC (BEAKER) (test 30.8 GM/DL 32.2-35.5 swqb=176) RED CELL DISTRIBUTION WIDTH (BEAKER) (test 18.9 % 11.7-14.4 gzmi=526) PLATELET COUNT (BEAKER) (test azru=240) 54 K/CU MM 150-450 MEAN PLATELET VOLUME (BEAKER) (test cyhg=050) 12.9 fL 9.4-12.3 NUCLEATED RED BLOOD CELLS (BEAKER) (test 0 /100 WBC 0-0 ubax=190) NEUTROPHILS RELATIVE PERCENT (BEAKER) (test 84 % jnah=853) LYMPHOCYTES RELATIVE PERCENT (BEAKER) (test 8 % inro=184) MONOCYTES RELATIVE PERCENT (BEAKER) (test 7 % hfzy=698) EOSINOPHILS RELATIVE PERCENT (BEAKER) (test 1 % nktn=385) BASOPHILS RELATIVE PERCENT (BEAKER) (test 0 % uchw=295) NEUTROPHILS ABSOLUTE COUNT (BEAKER) (test 3.45 K/ L 1.56-6.13 ikvt=439) LYMPHOCYTES ABSOLUTE COUNT (BEAKER) (test 0.33 K/ L 1.18-3.74 makc=385) MONOCYTES ABSOLUTE COUNT (BEAKER) (test pggv=667) 0.28 K/ L 0.24-0.36 EOSINOPHILS ABSOLUTE COUNT (BEAKER) (test 0.03 K/ L 0.04-0.36 tqld=875) BASOPHILS ABSOLUTE COUNT (BEAKER) (test jhfa=358) 0.01 K/ L 0.01-0.08 IMMATURE GRANULOCYTES-RELATIVE PERCENT (BEAKER) 1 % 0-1 (test ngjs=8623) POCT-GLUCOSE [id number] 18:43:00 Test Item Value Reference Range Comments POC-GLUCOSE METER (BEAKER) 121 mg/dL 70-110 TESTED AT [address] (test etgd=3138) [facility] [address] BASIC METABOLIC [id number] 06:46:00 Test Item Value Reference Range Comments SODIUM (BEAKER) (test 133 meq/L 136-145 uast=254) POTASSIUM (BEAKER) (test 4.1 meq/L 3.5-5.1 akxf=150) CHLORIDE (BEAKER) (test 98 meq/L 98-107 awka=597) CO2 (BEAKER) (test 25 meq/L 22-29 czzb=712) BLOOD UREA NITROGEN 27 mg/dL 7-21 (BEAKER) (test dsxs=571) CREATININE (BEAKER) (test 2.91 mg/dL 0.57-1.25 vwej=372) GLUCOSE RANDOM (BEAKER) 92 mg/dL 70-105 (test qzul=803) CALCIUM (BEAKER) (test 8.3 mg/dL 8.4-10.2 dkdc=080) EGFR (BEAKER) (test 17 mL/min/1.73 sq m ESTIMATED GFR IS NOT tbyl=5457) ACCURATE CREATININE CLEARANCE IN PREDICTING GLOMERULAR FILTRATION RATE. ESTIMATED GFR IS NOT APPLICABLE FOR DIALYSIS PATIENTS. [id number] 06:34:00 Test Item Value Reference Range Comments MAGNESIUM (BEAKER) (test tkfw=005) 1.9 mg/dL 1.6-2.6 [id number] 06:13:00 Test Item Value Reference Range Comments PROTIME (BEAKER) (test kjeq=084) 16.7 seconds 11.7-14.7 INR (BEAKER) (test rjgx=827) 1.4 <=5.9 PARTIAL THROMBOPLASTIN TIME (BEAKER) (test 39.8 seconds 22.5-36.0 bkze=909) RECOMMENDED COUMADIN/WARFARIN INR THERAPY RANGESSTANDARD DOSE: 2.0 - 3.0 Includes: PROPHYLAXIS forvenous thrombosis, systemic embolization; TREATMENT for venous thrombosis and/or pulmonary embolus.HIGH RISK: Target INR is 2.5-3.5 for patients with mechanical heart valves.CBC W/PLT COUNT & AUTO [id number] 06:11:00 Test Item Value Reference Range Comments WHITE BLOOD CELL COUNT (BEAKER) (test mzop=166) 3.2 K/ L 3.5-10.5 RED BLOOD CELL COUNT (BEAKER) (test juez=465) 2.51 M/ L 3.93-5.22 HEMOGLOBIN (BEAKER) (test usqg=216) 8.0 GM/DL 11.2-15.7 HEMATOCRIT (BEAKER) (test qnmu=828) 25.7 % 34.1-44.9 MEAN CORPUSCULAR VOLUME (BEAKER) (test ytpm=774) 102.4 fL 79.4-94.8 MEAN CORPUSCULAR HEMOGLOBIN (BEAKER) (test 31.9 pg 25.6-32.2 ixci=504) MEAN CORPUSCULAR HEMOGLOBIN CONC (BEAKER) (test 31.1 GM/DL 32.2-35.5 zrzv=266) RED CELL DISTRIBUTION WIDTH (BEAKER) (test 19.3 % 11.7-14.4 torf=099) PLATELET COUNT (BEAKER) (test rtnb=559) 49 K/CU MM 150-450 MEAN PLATELET VOLUME (BEAKER) (test ywcu=506) 12.6 fL 9.4-12.3 NUCLEATED RED BLOOD CELLS (BEAKER) (test 0 /100 WBC 0-0 zhhr=553) NEUTROPHILS RELATIVE PERCENT (BEAKER) (test 82 % jmgk=205) LYMPHOCYTES RELATIVE PERCENT (BEAKER) (test 9 % drfo=854) MONOCYTES RELATIVE PERCENT (BEAKER) (test 9 % vahh=052) EOSINOPHILS RELATIVE PERCENT (BEAKER) (test 0 % cexs=620) BASOPHILS RELATIVE PERCENT (BEAKER) (test 0 % mzhu=880) NEUTROPHILS ABSOLUTE COUNT (BEAKER) (test 2.60 K/ L 1.56-6.13 yfat=382) LYMPHOCYTES ABSOLUTE COUNT (BEAKER) (test 0.29 K/ L 1.18-3.74 erjo=486) MONOCYTES ABSOLUTE COUNT (BEAKER) (test sdgn=937) 0.27 K/ L 0.24-0.36 EOSINOPHILS ABSOLUTE COUNT (BEAKER) (test 0.00 K/ L 0.04-0.36 tuam=048) BASOPHILS ABSOLUTE COUNT (BEAKER) (test nwfo=551) 0.01 K/ L 0.01-0.08 IMMATURE GRANULOCYTES-RELATIVE PERCENT (BEAKER) 0 % 0-1 (test qqho=8702) BASIC METABOLIC [id number] 07:21:00 Test Item Value Reference Range Comments SODIUM (BEAKER) (test 135 meq/L 136-145 jqgm=735) POTASSIUM (BEAKER) (test 4.1 meq/L 3.5-5.1 xcjd=530) CHLORIDE (BEAKER) (test 102 meq/L 98-107 fhhw=335) CO2 (BEAKER) (test 24 meq/L 22-29 unrl=860) BLOOD UREA NITROGEN 45 mg/dL 7-21 (BEAKER) (test zhfq=227) CREATININE (BEAKER) (test 4.55 mg/dL 0.57-1.25 lcjb=337) GLUCOSE RANDOM (BEAKER) 106 mg/dL 70-105 (test nqlu=327) CALCIUM (BEAKER) (test 7.8 mg/dL 8.4-10.2 vypn=813) EGFR (BEAKER) (test 10 mL/min/1.73 sq m ESTIMATED GFR IS NOT wfrc=2454) ACCURATE CREATININE CLEARANCE IN PREDICTING GLOMERULAR FILTRATION RATE. ESTIMATED GFR IS NOT APPLICABLE FOR DIALYSIS PATIENTS. [id number] 07:08:00 Test Item Value Reference Range Comments MAGNESIUM (BEAKER) (test xxhm=014) 1.8 mg/dL 1.6-2.6 CBC W/PLT COUNT & AUTO [id number] 06:53:00 Test Item Value Reference Range Comments WHITE BLOOD CELL COUNT (BEAKER) (test wfdk=598) 2.9 K/ L 3.5-10.5 RED BLOOD CELL COUNT (BEAKER) (test otsy=295) 2.45 M/ L 3.93-5.22 HEMOGLOBIN (BEAKER) (test kbds=802) 8.0 GM/DL 11.2-15.7 HEMATOCRIT (BEAKER) (test qktd=280) 25.1 % 34.1-44.9 MEAN CORPUSCULAR VOLUME (BEAKER) (test hqxk=065) 102.4 fL 79.4-94.8 MEAN CORPUSCULAR HEMOGLOBIN (BEAKER) (test 32.7 pg 25.6-32.2 unis=081) MEAN CORPUSCULAR HEMOGLOBIN CONC (BEAKER) (test 31.9 GM/DL 32.2-35.5 nuti=067) RED CELL DISTRIBUTION WIDTH (BEAKER) (test 19.7 % 11.7-14.4 jotx=994) PLATELET COUNT (BEAKER) (test hqks=861) 41 K/CU MM 150-450 MEAN PLATELET VOLUME (BEAKER) (test sdrm=043) 11.7 fL 9.4-12.3 NUCLEATED RED BLOOD CELLS (BEAKER) (test 0 /100 WBC 0-0 rlvt=845) NEUTROPHILS RELATIVE PERCENT (BEAKER) (test 75 % pade=706) LYMPHOCYTES RELATIVE PERCENT (BEAKER) (test 13 % gkqz=915) MONOCYTES RELATIVE PERCENT (BEAKER) (test 11 % vqkr=606) EOSINOPHILS RELATIVE PERCENT (BEAKER) (test 0 % zsyx=410) BASOPHILS RELATIVE PERCENT (BEAKER) (test 0 % qmfg=146) NEUTROPHILS ABSOLUTE COUNT (BEAKER) (test 2.13 K/ L 1.56-6.13 taiv=447) LYMPHOCYTES ABSOLUTE COUNT (BEAKER) (test 0.38 K/ L 1.18-3.74 osdz=815) MONOCYTES ABSOLUTE COUNT (BEAKER) (test bhxh=701) 0.32 K/ L 0.24-0.36 EOSINOPHILS ABSOLUTE COUNT (BEAKER) (test 0.01 K/ L 0.04-0.36 uzpj=151) BASOPHILS ABSOLUTE COUNT (BEAKER) (test oooz=345) 0.01 K/ L 0.01-0.08 IMMATURE GRANULOCYTES-RELATIVE PERCENT (BEAKER) 0 % 0-1 (test rqyv=3785) RAD, CHEST, 1 VIEW, NON [id number] 22:19:00Reason for exam:-> pneumoniaShould this be performed [...] MDReport Verified Date/Time: 03/28/2018 22:19:58 Reading Location: [address] Reading Room [id number] 05:56: 00 Test Item Value Reference Range Comments MAGNESIUM (BEAKER) (test oklq=787) 1.9 mg/dL 1.6-2.6 COMPREHENSIVE METABOLIC [id number] 03:24:00 Test Item Value Reference Range Comments TOTAL PROTEIN (BEAKER) 5.9 gm/dL 6.0-8.3 (test vvek=902) ALBUMIN (BEAKER) (test 2.5 g/dL 3.5-5.0 sgwx=6502) ALKALINE PHOSPHATASE 42 U/L 40-150 (BEAKER) (test nmpz=931) BILIRUBIN TOTAL (BEAKER) 1.0 mg/dL 0.2-1.2 (test wswo=335) SODIUM (BEAKER) (test 135 meq/L 136-145 xqim=666) POTASSIUM (BEAKER) (test 4.1 meq/L 3.5-5.1 wver=835) CHLORIDE (BEAKER) (test 102 meq/L 98-107 xqyc=413) CO2 (BEAKER) (test 26 meq/L 22-29 ufav=531) BLOOD UREA NITROGEN 24 mg/dL 7-21 (BEAKER) (test frlf=567) CREATININE (BEAKER) (test 3.02 mg/dL 0.57-1.25 niuj=857) GLUCOSE RANDOM (BEAKER) 121 mg/dL 70-105 (test csvy=690) CALCIUM (BEAKER) (test 8.2 mg/dL 8.4-10.2 mytt=498) AST (SGOT) (BEAKER) (test 35 U/L 5-34 gkpp=201) ALT (SGPT) (BEAKER) (test 13 U/L 6-55 yxek=736) EGFR (BEAKER) (test 16 mL/min/1.73 sq m ESTIMATED GFR IS NOT sqdj=7613) ACCURATE CREATININE CLEARANCE IN PREDICTING GLOMERULAR FILTRATION RATE. ESTIMATED GFR IS NOT APPLICABLE FOR DIALYSIS PATIENTS. LACTIC ACID, VENOUS, WHOLE [id number] 03:15:00 Test Item Value Reference Range Comments LACTATE BLOOD VENOUS (2) (BEAKER) (test 1.1 mmol/L 0.5-2.2 ysnv=2572) Effective 11/28/2015: Units/Reference Range ChangeNew: 0.5-2.2 mmol/L Previous: 5 -20 mg/dLCBC W/PLT COUNT & AUTO [id number] 02:57:00 Test Item Value Reference Range Comments WHITE BLOOD CELL COUNT (BEAKER) (test bxzr=159) 2.7 K/ L 3.5-10.5 RED BLOOD CELL COUNT (BEAKER) (test hdrl=110) 2.45 M/ L 3.93-5.22 HEMOGLOBIN (BEAKER) (test fxvf=925) 8.0 GM/DL 11.2-15.7 HEMATOCRIT (BEAKER) (test ntxd=184) 24.9 % 34.1-44.9 MEAN CORPUSCULAR VOLUME (BEAKER) (test hnwv=685) 101.6 fL 79.4-94.8 MEAN CORPUSCULAR HEMOGLOBIN (BEAKER) (test 32.7 pg 25.6-32.2 zina=613) MEAN CORPUSCULAR HEMOGLOBIN CONC (BEAKER) (test 32.1 GM/DL 32.2-35.5 bhvp=661) RED CELL DISTRIBUTION WIDTH (BEAKER) (test 20.7 % 11.7-14.4 buyn=516) PLATELET COUNT (BEAKER) (test oksl=144) 44 K/CU MM 150-450 MEAN PLATELET VOLUME (BEAKER) (test asdn=531) 11.9 fL 9.4-12.3 NUCLEATED RED BLOOD CELLS (BEAKER) (test 0 /100 WBC 0-0 dzpz=715) NEUTROPHILS RELATIVE PERCENT (BEAKER) (test 75 % dgdh=918) LYMPHOCYTES RELATIVE PERCENT (BEAKER) (test 12 % deux=669) MONOCYTES RELATIVE PERCENT (BEAKER) (test 12 % lpcg=829) EOSINOPHILS RELATIVE PERCENT (BEAKER) (test 0 % qaab=688) BASOPHILS RELATIVE PERCENT (BEAKER) (test 0 % mlrv=363) NEUTROPHILS ABSOLUTE COUNT (BEAKER) (test 2.05 K/ L 1.56-6.13 tlbv=473) LYMPHOCYTES ABSOLUTE COUNT (BEAKER) (test 0.32 K/ L 1.18-3.74 gnwk=765) MONOCYTES ABSOLUTE COUNT (BEAKER) (test shqw=343) 0.34 K/ L 0.24-0.36 EOSINOPHILS ABSOLUTE COUNT (BEAKER) (test 0.01 K/ L 0.04-0.36 nxsw=646) BASOPHILS ABSOLUTE COUNT (BEAKER) (test wfvb=153) 0.01 K/ L 0.01-0.08 IMMATURE GRANULOCYTES-RELATIVE PERCENT (BEAKER) 0 % 0-1 (test uqyg=4444) POCT-GLUCOSE [id number] 02:55:00 Test Item Value Reference Range Comments POC-GLUCOSE METER (BEAKER) 148 mg/dL 70-[address] [facility] [address] [facility] (test syna=7555) [facility] [address] BASIC METABOLIC [id number] 06:29:00 Test Item Value Reference Range Comments SODIUM (BEAKER) (test 129 meq/L 136-145 ipen=899) POTASSIUM (BEAKER) (test 3.5 meq/L 3.5-5.1 zlnw=606) CHLORIDE (BEAKER) (test 97 meq/L 98-107 tzjp=158) CO2 (BEAKER) (test 25 meq/L 22-29 ncjb=549) BLOOD UREA NITROGEN 44 mg/dL 7-21 (BEAKER) (test cmlo=805) CREATININE (BEAKER) (test 4.23 mg/dL 0.57-1.25 qtta=763) GLUCOSE RANDOM (BEAKER) 118 mg/dL 70-105 (test iaqy=461) CALCIUM (BEAKER) (test 7.0 mg/dL 8.4-10.2 uxkw=118) EGFR (BEAKER) (test 11 mL/min/1.73 sq m ESTIMATED GFR IS NOT trws=5917) ACCURATE CREATININE CLEARANCE IN PREDICTING GLOMERULAR FILTRATION RATE. ESTIMATED GFR IS NOT APPLICABLE FOR DIALYSIS PATIENTS. [id number] 06:27:00 Test Item Value Reference Range Comments MAGNESIUM (BEAKER) (test jzpa=964) 1.8 mg/dL 1.6-2.6 CBC W/PLT COUNT & AUTO [id number] 06:09:00 Test Item Value Reference Range Comments WHITE BLOOD CELL COUNT (BEAKER) (test zcxk=147) 3.1 K/ L 3.5-10.5 RED BLOOD CELL COUNT (BEAKER) (test lkrm=215) 1.93 M/ L 3.93-5.22 HEMOGLOBIN (BEAKER) (test mxzt=840) 6.4 GM/DL 11.2-15.7 HEMATOCRIT (BEAKER) (test yjyu=065) 20.6 % 34.1-44.9 MEAN CORPUSCULAR VOLUME (BEAKER) (test ubrm=943) 106.7 fL 79.4-94.8 MEAN CORPUSCULAR HEMOGLOBIN (BEAKER) (test 33.2 pg 25.6-32.2 ixua=158) MEAN CORPUSCULAR HEMOGLOBIN CONC (BEAKER) (test 31.1 GM/DL 32.2-35.5 uxqz=462) RED CELL DISTRIBUTION WIDTH (BEAKER) (test 20.5 % 11.7-14.4 npnp=912) PLATELET COUNT (BEAKER) (test irbj=317) 48 K/CU MM 150-450 MEAN PLATELET VOLUME (BEAKER) (test owlo=729) 12.1 fL 9.4-12.3 NUCLEATED RED BLOOD CELLS (BEAKER) (test 0 /100 WBC 0-0 dnag=214) NEUTROPHILS RELATIVE PERCENT (BEAKER) (test 77 % aerh=810) LYMPHOCYTES RELATIVE PERCENT (BEAKER) (test 9 % drky=993) MONOCYTES RELATIVE PERCENT (BEAKER) (test 13 % spyn=738) EOSINOPHILS RELATIVE PERCENT (BEAKER) (test 0 % ymwm=646) BASOPHILS RELATIVE PERCENT (BEAKER) (test 0 % kvjg=332) NEUTROPHILS ABSOLUTE COUNT (BEAKER) (test 2.42 K/ L 1.56-6.13 yyut=755) LYMPHOCYTES ABSOLUTE COUNT (BEAKER) (test 0.27 K/ L 1.18-3.74 zkeq=988) MONOCYTES ABSOLUTE COUNT (BEAKER) (test wvex=509) 0.39 K/ L 0.24-0.36 EOSINOPHILS ABSOLUTE COUNT (BEAKER) (test 0.01 K/ L 0.04-0.36 lrln=933) BASOPHILS ABSOLUTE COUNT (BEAKER) (test kohk=889) 0.01 K/ L 0.01-0.08 IMMATURE GRANULOCYTES-RELATIVE PERCENT (BEAKER) 1 % 0-1 (test krct=0483) RAD, SHOULDER, COMPLETE (MIN 2 VIEWS), [id number] 17:48:00Reason for exam:-& gt;r/o FxShould this be [...] MDReport Verified Date/Time: 03/26/2018 17:48:06 Reading Location: [facility] Radiology Reading Room [facility] METABOLIC [id number] 07:10:00 Test Item Value Reference Range Comments SODIUM (BEAKER) (test 133 meq/L 136-145 czse=108) POTASSIUM (BEAKER) (test 3.6 meq/L 3.5-5.1 utpi=394) CHLORIDE (BEAKER) (test 101 meq/L 98-107 zomc=506) CO2 (BEAKER) (test 24 meq/L 22-29 cjph=939) BLOOD UREA NITROGEN 26 mg/dL 7-21 (BEAKER) (test jtbr=135) CREATININE (BEAKER) (test 2.73 mg/dL 0.57-1.25 nchc=364) GLUCOSE RANDOM (BEAKER) 117 mg/dL 70-105 (test yvlt=803) CALCIUM (BEAKER) (test 7.5 mg/dL 8.4-10.2 iipy=006) EGFR (BEAKER) (test 18 mL/min/1.73 sq m ESTIMATED GFR IS NOT ihac=5715) ACCURATE CREATININE CLEARANCE IN PREDICTING GLOMERULAR FILTRATION RATE. ESTIMATED GFR IS NOT APPLICABLE FOR DIALYSIS PATIENTS. [id number] 07:08:00 Test Item Value Reference Range Comments MAGNESIUM (BEAKER) (test vnpo=595) 1.9 mg/dL 1.6-2.6 CBC W/PLT COUNT & AUTO [id number] 06:34:00 Test Item Value Reference Range Comments WHITE BLOOD CELL COUNT (BEAKER) (test mttu=027) 3.1 K/ L 3.5-10.5 RED BLOOD CELL COUNT (BEAKER) (test ntyq=999) 2.18 M/ L 3.93-5.22 HEMOGLOBIN (BEAKER) (test uuog=224) 7.2 GM/DL 11.2-15.7 HEMATOCRIT (BEAKER) (test zaap=393) 23.1 % 34.1-44.9 MEAN CORPUSCULAR VOLUME (BEAKER) (test xpnx=632) 106.0 fL 79.4-94.8 MEAN CORPUSCULAR HEMOGLOBIN (BEAKER) (test 33.0 pg 25.6-32.2 ohwy=770) MEAN CORPUSCULAR HEMOGLOBIN CONC (BEAKER) (test 31.2 GM/DL 32.2-35.5 xvtr=370) RED CELL DISTRIBUTION WIDTH (BEAKER) (test 21.7 % 11.7-14.4 riyh=163) PLATELET COUNT (BEAKER) (test etae=732) 45 K/CU MM 150-450 MEAN PLATELET VOLUME (BEAKER) (test rztx=499) 11.8 fL 9.4-12.3 NUCLEATED RED BLOOD CELLS (BEAKER) (test 0 /100 WBC 0-0 skkm=438) NEUTROPHILS RELATIVE PERCENT (BEAKER) (test 83 % sxte=023) LYMPHOCYTES RELATIVE PERCENT (BEAKER) (test 7 % hegl=447) MONOCYTES RELATIVE PERCENT (BEAKER) (test 10 % adzi=880) EOSINOPHILS RELATIVE PERCENT (BEAKER) (test 0 % ywbx=631) BASOPHILS RELATIVE PERCENT (BEAKER) (test 0 % tqvr=803) NEUTROPHILS ABSOLUTE COUNT (BEAKER) (test 2.55 K/ L 1.56-6.13 yrnv=772) LYMPHOCYTES ABSOLUTE COUNT (BEAKER) (test 0.20 K/ L 1.18-3.74 lphd=763) MONOCYTES ABSOLUTE COUNT (BEAKER) (test rndm=356) 0.31 K/ L 0.24-0.36 EOSINOPHILS ABSOLUTE COUNT (BEAKER) (test 0.00 K/ L 0.04-0.36 itfm=313) BASOPHILS ABSOLUTE COUNT (BEAKER) (test tany=978) 0.01 K/ L 0.01-0.08 IMMATURE GRANULOCYTES-RELATIVE PERCENT (BEAKER) 1 % 0-1 (test wjlh=3584) CT, [id number] 02:57:00R/o retroperitoneal hematoma s/p kidney bxFINAL REPORT [...] Islas Verified Date/Time: 03/26/2018 02:57:14 Reading Location: [address] Transitional Reading Room Electronically signed by: KELLEE ISLAS MD on 2017 02:57 AMLACTATE DEHYDROGENASE (LDH)2018-03-25 14:50:00 Test Item Value Reference Range Comments LACTATE DEHYDROGENASE (BEAKER) (test pzcn=112) 722 U/L 125-220 PERIPHERAL BLOOD SMEAR - HOLD [id number] 14:37:00 Test Item Value Reference Range Comments PERIPHERAL SMEAR SAVE (BEAKER) (test htrd=8349) saved BASIC METABOLIC [id number] 07:08:00 Test Item Value Reference Range Comments SODIUM (BEAKER) (test 127 meq/L 136-145 gvrr=572) POTASSIUM (BEAKER) (test 4.3 meq/L 3.5-5.1 bvqw=266) CHLORIDE (BEAKER) (test 94 meq/L 98-107 wkyn=396) CO2 (BEAKER) (test 23 meq/L 22-29 fgzj=660) BLOOD UREA NITROGEN 56 mg/dL 7-21 (BEAKER) (test rmuq=694) CREATININE (BEAKER) (test 4.30 mg/dL 0.57-1.25 tvlx=421) GLUCOSE RANDOM (BEAKER) 110 mg/dL 70-105 (test irbh=087) CALCIUM (BEAKER) (test 6.4 mg/dL 8.4-10.2 sarp=056) EGFR (BEAKER) (test 11 mL/min/1.73 sq m ESTIMATED GFR IS NOT lopb=0860) ACCURATE CREATININE CLEARANCE IN PREDICTING GLOMERULAR FILTRATION RATE. ESTIMATED GFR IS NOT APPLICABLE FOR DIALYSIS PATIENTS. [id number] 07:04:00 Test Item Value Reference Range Comments MAGNESIUM (BEAKER) (test urxg=712) 1.9 mg/dL 1.6-2.6 CBC W/PLT COUNT & AUTO [id number] 06:27:00 Test Item Value Reference Range Comments WHITE BLOOD CELL COUNT (BEAKER) (test kmzu=462) 5.3 K/ L 3.5-10.5 RED BLOOD CELL COUNT (BEAKER) (test oeer=847) 2.39 M/ L 3.93-5.22 HEMOGLOBIN (BEAKER) (test lrxq=517) 7.9 GM/DL 11.2-15.7 HEMATOCRIT (BEAKER) (test btnx=727) 25.0 % 34.1-44.9 MEAN CORPUSCULAR VOLUME (BEAKER) (test eptc=047) 104.6 fL 79.4-94.8 MEAN CORPUSCULAR HEMOGLOBIN (BEAKER) (test 33.1 pg 25.6-32.2 srnh=547) MEAN CORPUSCULAR HEMOGLOBIN CONC (BEAKER) (test 31.6 GM/DL 32.2-35.5 uxkz=194) RED CELL DISTRIBUTION WIDTH (BEAKER) (test 22.2 % 11.7-14.4 ekop=647) PLATELET COUNT (BEAKER) (test xexe=717) 60 K/CU MM 150-450 MEAN PLATELET VOLUME (BEAKER) (test teoi=860) 12.7 fL 9.4-12.3 NUCLEATED RED BLOOD CELLS (BEAKER) (test 0 /100 WBC 0-0 pjye=872) NEUTROPHILS RELATIVE PERCENT (BEAKER) (test 85 % gohs=150) LYMPHOCYTES RELATIVE PERCENT (BEAKER) (test 6 % rtlo=100) MONOCYTES RELATIVE PERCENT (BEAKER) (test 9 % cicq=264) EOSINOPHILS RELATIVE PERCENT (BEAKER) (test 0 % fraj=159) BASOPHILS RELATIVE PERCENT (BEAKER) (test 0 % ygao=370) NEUTROPHILS ABSOLUTE COUNT (BEAKER) (test 4.50 K/ L 1.56-6.13 rvll=552) LYMPHOCYTES ABSOLUTE COUNT (BEAKER) (test 0.30 K/ L 1.18-3.74 liaj=733) MONOCYTES ABSOLUTE COUNT (BEAKER) (test yxmj=435) 0.46 K/ L 0.24-0.36 EOSINOPHILS ABSOLUTE COUNT (BEAKER) (test 0.01 K/ L 0.04-0.36 tdld=746) BASOPHILS ABSOLUTE COUNT (BEAKER) (test gkpk=391) 0.01 K/ L 0.01-0.08 IMMATURE GRANULOCYTES-RELATIVE PERCENT (BEAKER) 1 % 0-1 (test xetk=0070) HEPATITIS B [id number] 13:58:00 Test Item Value Reference Range Comments HEPATITIS B CORE TOTAL Nonreactive Nonreactive ANTIBODY (BEAKER) (test yoof=172) HEPATITIS B SURFACE ANTIBODY 133.0 mIU/mL <8.0 Testing performed at [email or web address] (BEAKER) (test knly=882) Diagnostic Laboratory.See attach result for further interpretation. HEPATITIS B SURFACE ANTIGEN Nonreactive Nonreactive (2) (BEAKER) (test qzmi=5154) U/S, BIOPSY, RENAL (KIDNEY)2018-03-24 12:59:00Reason for exam:->Acute [...] MDReport Verified Date/Time: 03/24 12:59:37 Reading Location: [address] Ultrasound Reading Room BONE MARROW [id number] 11:03:00Bone Marrow Pathology Report Case: [id number] Authorizing Provider: Jordan Sultana MD Collected: 03/17/2018 1457 Ordering Location : [address] Med/Surg Received: 03/17/2018 1457 Pathologist: Doug [...] NORMOCYTIC ANEMIA-THROMBOCYTOPENIA Signing Pathologist Direct Phone Line: [phone] signed by Doug Lee MD on 03/23/2018 [...] be submitted as an addendum when available. 71119; 41786; 43560 x 2; 10157; [id number] x 1; 88350 [id number] malignant neoplasm of breast with metastasis to [...] clusters. CD61: Highlights megakaryocytes which appear mildly [id number]: Demonstrates slightly more progenitor cells then CD34 [...] and its performance characteristics determined by [facility], Pathology Laboratory. It has not been [...] 5.2, CD3, CD20, CD34, CD61, CD117, CD138, [place], Lambda , E-Cadherin.CBC W/PLT COUNT & AUTO [id number] 06:18:00 Test Item Value Reference Range Comments WHITE BLOOD CELL COUNT (BEAKER) (test najp=906) 5.0 K/ L 3.5-10.5 RED BLOOD CELL COUNT (BEAKER) (test futy=908) 2.77 M/ L 3.93-5.22 HEMOGLOBIN (BEAKER) (test efcr=758) 9.0 GM/DL 11.2-15.7 HEMATOCRIT (BEAKER) (test ppyt=103) 29.8 % 34.1-44.9 MEAN CORPUSCULAR VOLUME (BEAKER) (test yzpb=706) 107.6 fL 79.4-94.8 MEAN CORPUSCULAR HEMOGLOBIN (BEAKER) (test 32.5 pg 25.6-32.2 dhzl=290) MEAN CORPUSCULAR HEMOGLOBIN CONC (BEAKER) (test 30.2 GM/DL 32.2-35.5 wnki=384) RED CELL DISTRIBUTION WIDTH (BEAKER) (test 23.6 % 11.7-14.4 bqae=785) PLATELET COUNT (BEAKER) (test fejr=128) 61 K/CU MM 150-450 MEAN PLATELET VOLUME (BEAKER) (test aqez=065) 11.2 fL 9.4-12.3 NUCLEATED RED BLOOD CELLS (BEAKER) (test 0 /100 WBC 0-0 gqir=504) NEUTROPHILS RELATIVE PERCENT (BEAKER) (test 82 % ixcx=742) LYMPHOCYTES RELATIVE PERCENT (BEAKER) (test 7 % dwdc=662) MONOCYTES RELATIVE PERCENT (BEAKER) (test 10 % omcw=472) EOSINOPHILS RELATIVE PERCENT (BEAKER) (test 0 % rezx=142) BASOPHILS RELATIVE PERCENT (BEAKER) (test 0 % nfyd=448) NEUTROPHILS ABSOLUTE COUNT (BEAKER) (test 4.14 K/ L 1.56-6.13 kfzq=147) LYMPHOCYTES ABSOLUTE COUNT (BEAKER) (test 0.35 K/ L 1.18-3.74 wsci=323) MONOCYTES ABSOLUTE COUNT (BEAKER) (test knaw=448) 0.49 K/ L 0.24-0.36 EOSINOPHILS ABSOLUTE COUNT (BEAKER) (test 0.02 K/ L 0.04-0.36 agrk=840) BASOPHILS ABSOLUTE COUNT (BEAKER) (test jdsx=230) 0.01 K/ L 0.01-0.08 IMMATURE GRANULOCYTES-RELATIVE PERCENT (BEAKER) 0 % 0-1 (test elki=0727) BASIC METABOLIC [id number] 05:46:00 Test Item Value Reference Range Comments SODIUM (BEAKER) (test 129 meq/L 136-145 atxg=511) POTASSIUM (BEAKER) (test 3.9 meq/L 3.5-5.1 rdxq=782) CHLORIDE (BEAKER) (test 98 meq/L 98-107 ovhb=435) CO2 (BEAKER) (test 22 meq/L 22-29 dqnu=757) BLOOD UREA NITROGEN 42 mg/dL 7-21 (BEAKER) (test smno=409) CREATININE (BEAKER) (test 3.25 mg/dL 0.57-1.25 lugi=929) GLUCOSE RANDOM (BEAKER) 101 mg/dL 70-105 (test sgki=060) CALCIUM (BEAKER) (test 7.0 mg/dL 8.4-10.2 hhok=608) EGFR (BEAKER) (test 15 mL/min/1.73 sq m ESTIMATED GFR IS NOT ppgf=2902) ACCURATE CREATININE CLEARANCE IN PREDICTING GLOMERULAR FILTRATION RATE. ESTIMATED GFR IS NOT APPLICABLE FOR DIALYSIS PATIENTS. [id number] 05:40:00 Test Item Value Reference Range Comments MAGNESIUM (BEAKER) (test 2.1 mg/dL 1.6-2.6 Specimen slightly hemolyzed noad=101) BASIC METABOLIC [id number] 23:13:00 Test Item Value Reference Range Comments SODIUM (BEAKER) (test 133 meq/L 136-145 fpqa=605) POTASSIUM (BEAKER) (test 3.6 meq/L 3.5-5.1 axvz=867) CHLORIDE (BEAKER) (test 98 meq/L 98-107 hlkw=228) CO2 (BEAKER) (test 26 meq/L 22-29 ophu=124) BLOOD UREA NITROGEN 42 mg/dL 7-21 (BEAKER) (test ybfo=203) CREATININE (BEAKER) (test 3.20 mg/dL 0.57-1.25 ffku=662) GLUCOSE RANDOM (BEAKER) 113 mg/dL 70-105 (test iyao=918) CALCIUM (BEAKER) (test 6.9 mg/dL 8.4-10.2 crdj=362) EGFR (BEAKER) (test 15 mL/min/1.73 sq m ESTIMATED GFR IS NOT pvib=0635) ACCURATE CREATININE CLEARANCE IN PREDICTING GLOMERULAR FILTRATION RATE. ESTIMATED GFR IS NOT APPLICABLE FOR DIALYSIS PATIENTS. BASIC METABOLIC [id number] 18:45:00 Test Item Value Reference Range Comments SODIUM (BEAKER) (test 134 meq/L 136-145 wiqn=853) POTASSIUM (BEAKER) (test 3.8 meq/L 3.5-5.1 kboh=501) CHLORIDE (BEAKER) (test 100 meq/L 98-107 uwbc=422) CO2 (BEAKER) (test 25 meq/L 22-29 omym=571) BLOOD UREA NITROGEN 37 mg/dL 7-21 (BEAKER) (test nqnc=566) CREATININE (BEAKER) (test 2.98 mg/dL 0.57-1.25 rsus=453) GLUCOSE RANDOM (BEAKER) 131 mg/dL 70-105 (test bmwh=650) CALCIUM (BEAKER) (test 7.3 mg/dL 8.4-10.2 hkmi=470) EGFR (BEAKER) (test 16 mL/min/1.73 sq m ESTIMATED GFR IS NOT udda=4249) ACCURATE CREATININE CLEARANCE IN PREDICTING GLOMERULAR FILTRATION RATE. ESTIMATED GFR IS NOT APPLICABLE FOR DIALYSIS PATIENTS. POCT-GLUCOSE [id number] 10:29:00 Test Item Value Reference Range Comments POC-GLUCOSE METER (BEAKER) 93 mg/dL 70-[address] [facility] [address] [place] [address] (test lnqj=4992) [facility] [address] BASIC METABOLIC [id number] 07:02:00 Test Item Value Reference Range Comments SODIUM (BEAKER) (test 133 meq/L 136-145 crcu=372) POTASSIUM (BEAKER) (test 3.7 meq/L 3.5-5.1 ebri=011) CHLORIDE (BEAKER) (test 97 meq/L 98-107 hcxh=772) CO2 (BEAKER) (test 25 meq/L 22-29 sxwf=653) BLOOD UREA NITROGEN 70 mg/dL 7-21 (BEAKER) (test adnq=811) CREATININE (BEAKER) (test 4.25 mg/dL 0.57-1.25 ttgw=519) GLUCOSE RANDOM (BEAKER) 93 mg/dL 70-105 (test ciwq=695) CALCIUM (BEAKER) (test 7.2 mg/dL 8.4-10.2 adrw=050) EGFR (BEAKER) (test 11 mL/min/1.73 sq m ESTIMATED GFR IS NOT pptn=5143) ACCURATE CREATININE CLEARANCE IN PREDICTING GLOMERULAR FILTRATION RATE. ESTIMATED GFR IS NOT APPLICABLE FOR DIALYSIS PATIENTS. [id number] 07:01:00 Test Item Value Reference Range Comments MAGNESIUM (BEAKER) (test lrzk=941) 2.2 mg/dL 1.6-2.6 CBC W/PLT COUNT & AUTO [id number] 06:36:00 Test Item Value Reference Range Comments WHITE BLOOD CELL COUNT (BEAKER) (test hqao=916) 6.2 K/ L 3.5-10.5 RED BLOOD CELL COUNT (BEAKER) (test zubf=952) 2.89 M/ L 3.93-5.22 HEMOGLOBIN (BEAKER) (test bbvr=490) 9.5 GM/DL 11.2-15.7 HEMATOCRIT (BEAKER) (test ytww=857) 31.1 % 34.1-44.9 MEAN CORPUSCULAR VOLUME (BEAKER) (test sjik=388) 107.6 fL 79.4-94.8 MEAN CORPUSCULAR HEMOGLOBIN (BEAKER) (test 32.9 pg 25.6-32.2 xkea=325) MEAN CORPUSCULAR HEMOGLOBIN CONC (BEAKER) (test 30.5 GM/DL 32.2-35.5 qcbi=530) RED CELL DISTRIBUTION WIDTH (BEAKER) (test 24.9 % 11.7-14.4 cqxt=818) PLATELET COUNT (BEAKER) (test eunz=940) 73 K/CU MM 150-450 MEAN PLATELET VOLUME (BEAKER) (test kvlx=856) 13.4 fL 9.4-12.3 NUCLEATED RED BLOOD CELLS (BEAKER) (test 0 /100 WBC 0-0 jlci=624) NEUTROPHILS RELATIVE PERCENT (BEAKER) (test 87 % kisl=399) LYMPHOCYTES RELATIVE PERCENT (BEAKER) (test 5 % ouhd=333) MONOCYTES RELATIVE PERCENT (BEAKER) (test 7 % hiig=037) EOSINOPHILS RELATIVE PERCENT (BEAKER) (test 0 % narj=376) BASOPHILS RELATIVE PERCENT (BEAKER) (test 0 % faoe=161) NEUTROPHILS ABSOLUTE COUNT (BEAKER) (test 5.36 K/ L 1.56-6.13 yuca=633) LYMPHOCYTES ABSOLUTE COUNT (BEAKER) (test 0.31 K/ L 1.18-3.74 qbwz=343) MONOCYTES ABSOLUTE COUNT (BEAKER) (test dero=218) 0.44 K/ L 0.24-0.36 EOSINOPHILS ABSOLUTE COUNT (BEAKER) (test 0.01 K/ L 0.04-0.36 uwyf=148) BASOPHILS ABSOLUTE COUNT (BEAKER) (test gaiy=565) 0.00 K/ L 0.01-0.08 IMMATURE GRANULOCYTES-RELATIVE PERCENT (BEAKER) 1 % 0-1 (test wkwj=4213) [id number] 06:35:00 Test Item Value Reference Range Comments PROTIME (BEAKER) (test yver=639) 15.3 seconds 11.7-14.7 INR (BEAKER) (test iaok=724) 1.2 <=5.9 PARTIAL THROMBOPLASTIN TIME (BEAKER) (test 29.7 seconds 22.5-36.0 wfbb=462) RECOMMENDED COUMADIN/WARFARIN INR THERAPY RANGESSTANDARD DOSE: 2.0 - 3.0 Includes: PROPHYLAXIS forvenous thrombosis, systemic embolization; TREATMENT for venous thrombosis and/or pulmonary embolus.HIGH RISK: Target INR is 2.5-3.5 for patients with mechanical heart valves.[id number] 23:55:00 Test Item Value Reference Range Comments PHOSPHORUS (BEAKER) (test wsgy=702) 6.1 mg/dL 2.3-4.7 BASIC METABOLIC [id number] 23:55:00 Test Item Value Reference Range Comments SODIUM (BEAKER) (test 135 meq/L 136-145 wdbt=033) POTASSIUM (BEAKER) (test 3.6 meq/L 3.5-5.1 want=746) CHLORIDE (BEAKER) (test 97 meq/L 98-107 xrtd=911) CO2 (BEAKER) (test 26 meq/L 22-29 nwrr=238) BLOOD UREA NITROGEN 63 mg/dL 7-21 (BEAKER) (test eapu=707) CREATININE (BEAKER) (test 3.99 mg/dL 0.57-1.25 vvmi=442) GLUCOSE RANDOM (BEAKER) 121 mg/dL 70-105 (test zphg=316) CALCIUM (BEAKER) (test 7.2 mg/dL 8.4-10.2 rfsm=332) EGFR (BEAKER) (test 12 mL/min/1.73 sq m ESTIMATED GFR IS NOT mmfg=2012) ACCURATE CREATININE CLEARANCE IN PREDICTING GLOMERULAR FILTRATION RATE. ESTIMATED GFR IS NOT APPLICABLE FOR DIALYSIS PATIENTS. BASIC METABOLIC [id number] 17:30:00 Test Item Value Reference Range Comments SODIUM (BEAKER) (test 137 meq/L 136-145 bzzx=934) POTASSIUM (BEAKER) (test 3.7 meq/L 3.5-5.1 hkgl=435) CHLORIDE (BEAKER) (test 98 meq/L 98-107 uaan=012) CO2 (BEAKER) (test 27 meq/L 22-29 scjw=913) BLOOD UREA NITROGEN 53 mg/dL 7-21 (BEAKER) (test ijdn=719) CREATININE (BEAKER) (test 3.30 mg/dL 0.57-1.25 gzry=664) GLUCOSE RANDOM (BEAKER) 105 mg/dL 70-105 (test rtpc=304) CALCIUM (BEAKER) (test 8.1 mg/dL 8.4-10.2 nlur=955) EGFR (BEAKER) (test 15 mL/min/1.73 sq m ESTIMATED GFR IS NOT mlrl=6059) ACCURATE CREATININE CLEARANCE IN PREDICTING GLOMERULAR FILTRATION RATE. ESTIMATED GFR IS NOT APPLICABLE FOR DIALYSIS PATIENTS. HEPATIC FUNCTION [id number] 17:26:00 Test Item Value Reference Range Comments TOTAL PROTEIN (BEAKER) (test mlfv=791) 6.7 gm/dL 6.0-8.3 ALBUMIN (BEAKER) (test zzrd=7975) 3.1 g/dL 3.5-5.0 BILIRUBIN TOTAL (BEAKER) (test xxei=791) 1.6 mg/dL 0.2-1.2 BILIRUBIN DIRECT (BEAKER) (test vagp=135) 0.7 mg/dL 0.1-0.5 ALKALINE PHOSPHATASE (BEAKER) (test nqxd=204) 63 U/L 40-150 AST (SGOT) (BEAKER) (test exdv=018) 48 U/L 5-34 ALT (SGPT) (BEAKER) (test ugff=953) 24 U/L 6-55 BASIC METABOLIC [id number] 15:15:00 Test Item Value Reference Range Comments SODIUM (BEAKER) (test 134 meq/L 136-145 yzqs=703) POTASSIUM (BEAKER) (test 4.1 meq/L 3.5-5.1 yphc=404) CHLORIDE (BEAKER) (test 94 meq/L 98-107 pgjp=935) CO2 (BEAKER) (test 23 meq/L 22-29 mhiq=372) BLOOD UREA NITROGEN 112 mg/dL 7-21 (BEAKER) (test sual=794) CREATININE (BEAKER) (test 5.93 mg/dL 0.57-1.25 egdb=370) GLUCOSE RANDOM (BEAKER) 104 mg/dL 70-105 (test hyee=980) CALCIUM (BEAKER) (test 7.2 mg/dL 8.4-10.2 qcki=558) EGFR (BEAKER) (test 7 mL/min/1.73 sq m ESTIMATED GFR IS NOT bzgt=7149) ACCURATE CREATININE CLEARANCE IN PREDICTING GLOMERULAR FILTRATION RATE. ESTIMATED GFR IS NOT APPLICABLE FOR DIALYSIS PATIENTS. URINE IMMUNOFIXATION, [id number] 15:09:00 Test Item Value Reference Range Comments PROTEIN, URINE (BEAKER) (test 412 mg/dL 0-14 xsny=6111) ALBUMIN URINE ELP (BEAKER) 56.3 % (test qdkx=5721) GAMMA GLOBULIN URINE (BEAKER) 43.7 % (test kmhy=7570) URINE JUDSON ID-[id number] (BEAKER) No monoclonal proteins or (test ohyn=1074) monoclonal free light chains detected. [id number] (BEAKER) Barbie Mccollum MD (test pkvq=9483) (electronic signature) URINE PROTEIN ELECTROPHORESIS, [id number] 13:02:00 Test Item Value Reference Range Comments PROTEIN, URINE (BEAKER) (test 412 mg/dL 0-14 vhwl=0239) ALBUMIN URINE ELP (BEAKER) 56.3 % (test srom=8173) GAMMA GLOBULIN URINE (BEAKER) 43.7 % (test qerp=8965) UPEP, ID-438 (BEAKER) (test No monoclonal bands detected. wegm=3168) [id number] (BEAKER) Barbie Mccollum MD (test xnjq=5776) (electronic signature) [id number] 08:19:00 Test Item Value Reference Range Comments HAPTOGLOBIN (BEAKER) (test mzof=313) < mg/dL 14-258 BASIC METABOLIC [id number] 07:44:00 Test Item Value Reference Range Comments SODIUM (BEAKER) (test 133 meq/L 136-145 egqf=783) POTASSIUM (BEAKER) (test 4.4 meq/L 3.5-5.1 qkxh=018) CHLORIDE (BEAKER) (test 95 meq/L 98-107 ijpe=273) CO2 (BEAKER) (test 23 meq/L 22-29 ddph=586) BLOOD UREA NITROGEN 108 mg/dL 7-21 (BEAKER) (test hvwt=046) CREATININE (BEAKER) (test 5.79 mg/dL 0.57-1.25 npph=623) GLUCOSE RANDOM (BEAKER) 107 mg/dL 70-105 (test xzoe=248) CALCIUM (BEAKER) (test 7.4 mg/dL 8.4-10.2 ndly=266) EGFR (BEAKER) (test 8 mL/min/1.73 sq m ESTIMATED GFR IS NOT klky=4308) ACCURATE CREATININE CLEARANCE IN PREDICTING GLOMERULAR FILTRATION RATE. ESTIMATED GFR IS NOT APPLICABLE FOR DIALYSIS PATIENTS. [id number] 07:29:00 Test Item Value Reference Range Comments MAGNESIUM (BEAKER) (test yglh=729) 2.6 mg/dL 1.6-2.6 LACTATE DEHYDROGENASE (LDH)[id number] 07:29:00 Test Item Value Reference Range Comments LACTATE DEHYDROGENASE (BEAKER) (test picy=318) 812 U/L 125-220 CBC W/PLT COUNT & AUTO [id number] 07:15:00 Test Item Value Reference Range Comments WHITE BLOOD CELL COUNT (BEAKER) (test efqo=052) 5.5 K/ L 3.5-10.5 RED BLOOD CELL COUNT (BEAKER) (test esvt=193) 2.90 M/ L 3.93-5.22 HEMOGLOBIN (BEAKER) (test fkzp=001) 9.5 GM/DL 11.2-15.7 HEMATOCRIT (BEAKER) (test qgyo=777) 30.7 % 34.1-44.9 MEAN CORPUSCULAR VOLUME (BEAKER) (test qpgf=786) 105.9 fL 79.4-94.8 MEAN CORPUSCULAR HEMOGLOBIN (BEAKER) (test 32.8 pg 25.6-32.2 pfdw=938) MEAN CORPUSCULAR HEMOGLOBIN CONC (BEAKER) (test 30.9 GM/DL 32.2-35.5 vngc=393) RED CELL DISTRIBUTION WIDTH (BEAKER) (test 24.7 % 11.7-14.4 vpcb=186) PLATELET COUNT (BEAKER) (test zkba=435) 56 K/CU MM 150-450 MEAN PLATELET VOLUME (BEAKER) (test hlil=490) 11.6 fL 9.4-12.3 NUCLEATED RED BLOOD CELLS (BEAKER) (test 0 /100 WBC 0-0 gprq=361) NEUTROPHILS RELATIVE PERCENT (BEAKER) (test 83 % iudj=051) LYMPHOCYTES RELATIVE PERCENT (BEAKER) (test 9 % xshs=357) MONOCYTES RELATIVE PERCENT (BEAKER) (test 7 % btzu=940) EOSINOPHILS RELATIVE PERCENT (BEAKER) (test 0 % ihxe=262) BASOPHILS RELATIVE PERCENT (BEAKER) (test 0 % dtvw=673) NEUTROPHILS ABSOLUTE COUNT (BEAKER) (test 4.58 K/ L 1.56-6.13 xwum=979) LYMPHOCYTES ABSOLUTE COUNT (BEAKER) (test 0.49 K/ L 1.18-3.74 vvtc=693) MONOCYTES ABSOLUTE COUNT (BEAKER) (test uzso=748) 0.39 K/ L 0.24-0.36 EOSINOPHILS ABSOLUTE COUNT (BEAKER) (test 0.00 K/ L 0.04-0.36 ylvp=391) BASOPHILS ABSOLUTE COUNT (BEAKER) (test ghcn=255) 0.01 K/ L 0.01-0.08 IMMATURE GRANULOCYTES-RELATIVE PERCENT (BEAKER) 1 % 0-1 (test vkpj=2886) RETICULOCYTE [id number] 07:08:00 Test Item Value Reference Range Comments RETICULOCYTE COUNT PCT (BEAKER) (test hgfj=599) 13.4 % 0.5-1.7 [id number] 07:07:00 Test Item Value Reference Range Comments PROTIME (BEAKER) (test urox=911) 16.2 seconds 11.7-14.7 INR (BEAKER) (test nxwk=896) 1.3 <=5.9 PARTIAL THROMBOPLASTIN TIME (BEAKER) (test 31.2 seconds 22.5-36.0 kyjm=516) RECOMMENDED COUMADIN/WARFARIN INR THERAPY RANGESSTANDARD DOSE: 2.0 - 3.0 Includes: PROPHYLAXIS forvenous thrombosis, systemic embolization; TREATMENT for venous thrombosis and/or pulmonary embolus.HIGH RISK: Target INR is 2.5-3.5 for patients with mechanical heart valves.PROTHROMBIN [id number] 07:06: 00 Test Item Value Reference Range Comments PROTIME (BEAKER) (test ciwo=979) 16.2 seconds 11.7-14.7 INR (BEAKER) (test lyyy=835) 1.3 <=5.9 RECOMMENDED COUMADIN/WARFARIN INR THERAPY RANGESSTANDARD DOSE: 2.0 - 3.0 Includes: PROPHYLAXIS forvenous thrombosis, systemic embolization; TREATMENT for venous thrombosis and/or pulmonary embolus.HIGH RISK: Target INR is 2.5-3.5 for patients with mechanical heart valves.BASIC METABOLIC [id number] 22:18: 00 Test Item Value Reference Range Comments SODIUM (BEAKER) (test 132 meq/L 136-145 xvzx=864) POTASSIUM (BEAKER) (test 4.7 meq/L 3.5-5.1 wfai=952) CHLORIDE (BEAKER) (test 95 meq/L 98-107 gcyw=413) CO2 (BEAKER) (test 22 meq/L 22-29 lyzi=891) BLOOD UREA NITROGEN 99 mg/dL 7-21 (BEAKER) (test qwwk=274) CREATININE (BEAKER) (test 5.57 mg/dL 0.57-1.25 sgdl=254) GLUCOSE RANDOM (BEAKER) 139 mg/dL 70-105 (test geou=904) CALCIUM (BEAKER) (test 7.3 mg/dL 8.4-10.2 vtss=279) EGFR (BEAKER) (test 8 mL/min/1.73 sq m ESTIMATED GFR IS NOT jfuj=2980) ACCURATE CREATININE CLEARANCE IN PREDICTING GLOMERULAR FILTRATION RATE. ESTIMATED GFR IS NOT APPLICABLE FOR DIALYSIS PATIENTS. RAD, CHEST, 1 VIEW, NON [id number] 18:54:00Reason for exam:->cough, chest congestionShould this be [...] MDReport Verified Date/Time: 03/21/2018 18:54:34 Reading Location: [facility] C013Y CT Body Reading Room BASIC METABOLIC [id number] 16:55:00 Test Item Value Reference Range Comments SODIUM (BEAKER) (test 135 meq/L 136-145 pzdj=947) POTASSIUM (BEAKER) (test 5.1 meq/L 3.5-5.1 sbzv=947) CHLORIDE (BEAKER) (test 97 meq/L 98-107 iejo=434) CO2 (BEAKER) (test 20 meq/L 22-29 jlok=967) BLOOD UREA NITROGEN 100 mg/dL 7-21 (BEAKER) (test tzkp=838) CREATININE (BEAKER) (test 5.45 mg/dL 0.57-1.25 whbu=937) GLUCOSE RANDOM (BEAKER) 133 mg/dL 70-105 (test qbsp=523) CALCIUM (BEAKER) (test 7.7 mg/dL 8.4-10.2 yidy=765) EGFR (BEAKER) (test 8 mL/min/1.73 sq m ESTIMATED GFR IS NOT lzly=4046) ACCURATE CREATININE CLEARANCE IN PREDICTING GLOMERULAR FILTRATION RATE. ESTIMATED GFR IS NOT APPLICABLE FOR DIALYSIS PATIENTS. BLOOD [id number] 13:00:00 Test Item Value Reference Range Comments CULTURE (BEAKER) (test ibxe=0948) No growth in 5 days BASIC METABOLIC [id number] 12:42:00 Test Item Value Reference Range Comments SODIUM (BEAKER) (test 134 meq/L 136-145 ujmg=850) POTASSIUM (BEAKER) (test 4.7 meq/L 3.5-5.1 qzql=024) CHLORIDE (BEAKER) (test 95 meq/L 98-107 hirw=099) CO2 (BEAKER) (test 21 meq/L 22-29 gdpz=735) BLOOD UREA NITROGEN 97 mg/dL 7-21 (BEAKER) (test bxws=161) CREATININE (BEAKER) (test 5.18 mg/dL 0.57-1.25 lwtm=574) GLUCOSE RANDOM (BEAKER) 121 mg/dL 70-105 (test ydep=289) CALCIUM (BEAKER) (test 7.9 mg/dL 8.4-10.2 sizt=650) EGFR (BEAKER) (test 9 mL/min/1.73 sq m ESTIMATED GFR IS NOT zwpq=8922) ACCURATE CREATININE CLEARANCE IN PREDICTING GLOMERULAR FILTRATION RATE. ESTIMATED GFR IS NOT APPLICABLE FOR DIALYSIS PATIENTS. BASIC METABOLIC [id number] 06:21:00 Test Item Value Reference Range Comments SODIUM (BEAKER) (test 133 meq/L 136-145 yiby=342) POTASSIUM (BEAKER) (test 4.6 meq/L 3.5-5.1 aqwo=663) CHLORIDE (BEAKER) (test 97 meq/L 98-107 sbyw=895) CO2 (BEAKER) (test 18 meq/L 22-29 sfpt=752) BLOOD UREA NITROGEN 89 mg/dL 7-21 (BEAKER) (test lcbw=029) CREATININE (BEAKER) (test 4.86 mg/dL 0.57-1.25 twrk=529) GLUCOSE RANDOM (BEAKER) 117 mg/dL 70-105 (test cddf=213) CALCIUM (BEAKER) (test 7.9 mg/dL 8.4-10.2 vpet=487) EGFR (BEAKER) (test 9 mL/min/1.73 sq m ESTIMATED GFR IS NOT wwht=8076) ACCURATE CREATININE CLEARANCE IN PREDICTING GLOMERULAR FILTRATION RATE. ESTIMATED GFR IS NOT APPLICABLE FOR DIALYSIS PATIENTS. [id number] 05:54:00 Test Item Value Reference Range Comments MAGNESIUM (BEAKER) (test vikx=749) 2.4 mg/dL 1.6-2.6 CBC (HEMOGRAM ONLY)2018-03-21 05:23:00 Test Item Value Reference Range Comments WHITE BLOOD CELL COUNT (BEAKER) (test mrfj=867) 7.6 K/ L 3.5-10.5 RED BLOOD CELL COUNT (BEAKER) (test aeri=516) 3.13 M/ L 3.93-5.22 HEMOGLOBIN (BEAKER) (test yqpy=790) 10.1 GM/DL 11.2-15.7 HEMATOCRIT (BEAKER) (test tgxi=998) 32.1 % 34.1-44.9 MEAN CORPUSCULAR VOLUME (BEAKER) (test fitg=150) 102.6 fL 79.4-94.8 MEAN CORPUSCULAR HEMOGLOBIN (BEAKER) (test 32.3 pg 25.6-32.2 ctld=436) MEAN CORPUSCULAR HEMOGLOBIN CONC (BEAKER) (test 31.5 GM/DL 32.2-35.5 njdo=547) RED CELL DISTRIBUTION WIDTH (BEAKER) (test 24.0 % 11.7-14.4 uagl=598) PLATELET COUNT (BEAKER) (test piti=202) 68 K/CU MM 150-450 MEAN PLATELET VOLUME (BEAKER) (test uocf=564) 14.4 fL 9.4-12.3 NUCLEATED RED BLOOD CELLS (BEAKER) (test 1 /100 WBC 0-0 jtdg=587) BASIC METABOLIC [id number] 00:47:00 Test Item Value Reference Range Comments SODIUM (BEAKER) (test 134 meq/L 136-145 xkdh=505) POTASSIUM (BEAKER) (test 4.7 meq/L 3.5-5.1 noyd=665) CHLORIDE (BEAKER) (test 97 meq/L 98-107 eigh=525) CO2 (BEAKER) (test 22 meq/L 22-29 tgfz=591) BLOOD UREA NITROGEN 86 mg/dL 7-21 (BEAKER) (test iers=832) CREATININE (BEAKER) (test 4.81 mg/dL 0.57-1.25 qvzh=165) GLUCOSE RANDOM (BEAKER) 115 mg/dL 70-105 (test chuh=876) CALCIUM (BEAKER) (test 7.9 mg/dL 8.4-10.2 xwvk=961) EGFR (BEAKER) (test 9 mL/min/1.73 sq m ESTIMATED GFR IS NOT lkzs=9901) ACCURATE CREATININE CLEARANCE IN PREDICTING GLOMERULAR FILTRATION RATE. ESTIMATED GFR IS NOT APPLICABLE FOR DIALYSIS PATIENTS. HEPATITIS C [id number] 13:26:00 Test Item Value Reference Range Comments HEPATITIS C ANTIBODY (BEAKER) (test rtrj=951) Nonreactive Nonreactive BASIC METABOLIC [id number] 13:08:00 Test Item Value Reference Range Comments SODIUM (BEAKER) (test 133 meq/L 136-145 ktlu=394) POTASSIUM (BEAKER) (test 5.0 meq/L 3.5-5.1 vkat=643) CHLORIDE (BEAKER) (test 92 meq/L 98-107 fqvf=779) CO2 (BEAKER) (test 21 meq/L 22-29 imyh=727) BLOOD UREA NITROGEN 123 mg/dL 7-21 (BEAKER) (test lceo=199) CREATININE (BEAKER) (test 5.93 mg/dL 0.57-1.25 xjaj=073) GLUCOSE RANDOM (BEAKER) 108 mg/dL 70-105 (test rwic=536) CALCIUM (BEAKER) (test 8.1 mg/dL 8.4-10.2 odcv=975) EGFR (BEAKER) (test 7 mL/min/1.73 sq m ESTIMATED GFR IS NOT pqff=8991) ACCURATE CREATININE CLEARANCE IN PREDICTING GLOMERULAR FILTRATION RATE. ESTIMATED GFR IS NOT APPLICABLE FOR DIALYSIS PATIENTS. T4, [id number] 09:25:00 Test Item Value Reference Range Comments FREE T4 (BEAKER) (test skxl=712) 0.67 ng/dL 0.70-1.48 TSH/FREE T4 IF [id number] 09:04:00 Test Item Value Reference Range Comments THYROID STIMULATING HORMONE (BEAKER) (test 7.12 uIU/mL 0.35-4.94 qtmt=100) BASIC METABOLIC [id number] 07:17:00 Test Item Value Reference Range Comments SODIUM (BEAKER) (test 132 meq/L 136-145 ptys=223) POTASSIUM (BEAKER) (test 4.6 meq/L 3.5-5.1 ceuy=540) CHLORIDE (BEAKER) (test 92 meq/L 98-107 mpkz=576) CO2 (BEAKER) (test 22 meq/L 22-29 ownz=041) BLOOD UREA NITROGEN 119 mg/dL 7-21 (BEAKER) (test efjy=672) CREATININE (BEAKER) (test 5.68 mg/dL 0.57-1.25 gmfo=435) GLUCOSE RANDOM (BEAKER) 108 mg/dL 70-105 (test xpay=925) CALCIUM (BEAKER) (test 8.0 mg/dL 8.4-10.2 iinh=044) EGFR (BEAKER) (test 8 mL/min/1.73 sq m ESTIMATED GFR IS NOT fupm=5208) ACCURATE CREATININE CLEARANCE IN PREDICTING GLOMERULAR FILTRATION RATE. ESTIMATED GFR IS NOT APPLICABLE FOR DIALYSIS PATIENTS. CBC (HEMOGRAM ONLY)2018-03-20 06:25:00 Test Item Value Reference Range Comments WHITE BLOOD CELL COUNT (BEAKER) (test sshm=146) 7.0 K/ L 3.5-10.5 RED BLOOD CELL COUNT (BEAKER) (test zjsi=285) 2.95 M/ L 3.93-5.22 HEMOGLOBIN (BEAKER) (test qqpr=253) 9.5 GM/DL 11.2-15.7 HEMATOCRIT (BEAKER) (test rnjb=215) 29.3 % 34.1-44.9 MEAN CORPUSCULAR VOLUME (BEAKER) (test btul=863) 99.3 fL 79.4-94.8 MEAN CORPUSCULAR HEMOGLOBIN (BEAKER) (test 32.2 pg 25.6-32.2 nbsv=091) MEAN CORPUSCULAR HEMOGLOBIN CONC (BEAKER) (test 32.4 GM/DL 32.2-35.5 qdhn=092) RED CELL DISTRIBUTION WIDTH (BEAKER) (test 22.7 % 11.7-14.4 idti=202) PLATELET COUNT (BEAKER) (test wuaz=818) 53 K/CU MM 150-450 NUCLEATED RED BLOOD CELLS (BEAKER) (test 1 /100 WBC 0-0 nacl=902) BASIC METABOLIC [id number] 03:08:00 Test Item Value Reference Range Comments SODIUM (BEAKER) (test 130 meq/L 136-145 ivwa=943) POTASSIUM (BEAKER) (test 4.9 meq/L 3.5-5.1 scgm=826) CHLORIDE (BEAKER) (test 92 meq/L 98-107 hhmj=683) CO2 (BEAKER) (test 21 meq/L 22-29 nbcg=848) BLOOD UREA NITROGEN 117 mg/dL 7-21 (BEAKER) (test pqmp=586) CREATININE (BEAKER) (test 5.66 mg/dL 0.57-1.25 rzla=360) GLUCOSE RANDOM (BEAKER) 124 mg/dL 70-105 (test thbt=405) CALCIUM (BEAKER) (test 7.9 mg/dL 8.4-10.2 gyxz=300) EGFR (BEAKER) (test 8 mL/min/1.73 sq m ESTIMATED GFR IS NOT shte=9165) ACCURATE CREATININE CLEARANCE IN PREDICTING GLOMERULAR FILTRATION RATE. ESTIMATED GFR IS NOT APPLICABLE FOR DIALYSIS PATIENTS. BASIC METABOLIC [id number] 20:16:00 Test Item Value Reference Range Comments SODIUM (BEAKER) (test 131 meq/L 136-145 vmmi=161) POTASSIUM (BEAKER) (test 5.0 meq/L 3.5-5.1 svog=327) CHLORIDE (BEAKER) (test 92 meq/L 98-107 yhdm=031) CO2 (BEAKER) (test 22 meq/L 22-29 dwzu=475) BLOOD UREA NITROGEN 113 mg/dL 7-21 (BEAKER) (test ixdc=166) CREATININE (BEAKER) (test 5.58 mg/dL 0.57-1.25 bqbx=154) GLUCOSE RANDOM (BEAKER) 112 mg/dL 70-105 (test axps=483) CALCIUM (BEAKER) (test 8.1 mg/dL 8.4-10.2 kgth=884) EGFR (BEAKER) (test 8 mL/min/1.73 sq m ESTIMATED GFR IS NOT ouse=8859) ACCURATE CREATININE CLEARANCE IN PREDICTING GLOMERULAR FILTRATION RATE. ESTIMATED GFR IS NOT APPLICABLE FOR DIALYSIS PATIENTS. PROTEIN ELECTROPHORESIS, [id number] 17:31:00 Test Item Value Reference Range Comments ALBUMIN FRACTION (BEAKER) 2.7 g/dL 3.5-5.5 (test btlb=712) ALPHA 1 FRACTION (BEAKER) 0.4 g/dL 0.2-0.4 (test xsrr=638) ALPHA 2 FRACTION (BEAKER) 0.5 g/dL 0.5-0.9 (test xzhu=344) BETA FRACTION (BEAKER) (test 0.8 g/dL 0.6-1.1 pxde=805) GAMMA GLOBULIN FRACTION 2.2 g/dL 0.7-1.7 (BEAKER) (test enpt=510) INTERPRETATION-119 (BEAKER) Polyclonal elevation of gamma (test xqls=4306) fraction, suggestive of chronic inflammatory response. Serum JUDSON pending to evaluate for presence of small underlying monoclonal protein in this region. [id number] Barbie Mccollum MD (BEAKER) (test dbds=2628) (electronic signature) PROTEIN TOTAL SERUM, SPEP 6.7 gm/dL 6.0-8.3 (BEAKER) (test hxeb=5073) IMMUNOFIXATION ELECTROPHORESIS (JUDSON)2018-03-19 17:31:00 Test Item Value Reference Range Comments IMMUNOGLOBULIN G (IGG) (BEAKER) 2008 mg/dL 540-1822 (test foze=063) IMMUNOGLOBULIN A (IGA) (BEAKER) 37 mg/dL 63-484 (test ctgu=071) IMMUNOGLOBULIN M (IGM) (BEAKER) 673 mg/dL 22-293 (test qork=485) SERUM JUDSON ID (BEAKER) (test No monoclonal proteins ruda=4553) detected. Polyclonal elevation of gamma globulins. [id number] ([facility]) Barbie Mcclolum MD (test hyol=3873) (electronic signature) ANTI-NUCLEAR ANTIBODY (SARAH)2018-03-19 10:18:00 Test Item Value Reference Range Comments ANTI-NUCLEAR ANTIBODY (SARAH) (BEAKER) (test Positive Negative ixsx=240) Test performed by IFA method.SARAH TITER AND [id number] 10:18:00 Test Item Value Reference Range Comments SARAH TITER (BEAKER) (test iqzg=1333) >=:2560 SARAH PATTERN (BEAKER) (test ejhz=6328) Speckled FLOW [id number] 09:17:00Flow Cytometry Report Case: [id number] Authorizing Provider: Jordan Sultana MD Collected: 03/17/2018 1500 Ordering Location: [address] Med/Surg Received: 03/17/2018 1714 Pathologist: Doug [...] findings in the bone marrow biopsy report([id number]) .[id number] wf with h/o right breast ca s/p surgery and chemo xrt in 2013 found to have recurrence with extensive metastases, started on carboplatin and gemcitabine in October 2017, transferred from [facility] for management of MAHA with REJI.BONE MARROW ASPIRATECD8, surface-[place], CD56, surface-Lambda, CD5 , CD19, CD10, CD3, CD20, CD4, CD45, CD14, CD13, CD33, CD117, CD34, cKappa, cLambda, CD38, [id number] Viability: 92.4% Number of Events Acquired: [id number] The following populations are identified: Blasts: the [...] developed and their performance characteristics determined by [facility] They have not been cleared or approved by the U.S. Food and Drug Administration. The FDA has determined that such clearance or approval is not necessary. It should not be regarded as investigational or for research. This laboratory is certified under the Clinical Laboratory Improvement Amendments pa6140 ("CLIA") as qualified to perform high-complexity clinical testing.FLOW CYTOMETRY [id number] 09:16:00 Test Item Value Reference Range Comments FLOW CYTOMETRY RESULT POINTER (ADDY) See Separate Report (test ndgc=9087) FLOW CYTOMETRY AP CASE # (ADDY) (test [id number] sszq=5355) BASIC METABOLIC [id number] 06:55:00 Test Item Value Reference Range Comments SODIUM (BEAKER) (test 131 meq/L 136-145 bnov=876) POTASSIUM (BEAKER) (test 4.8 meq/L 3.5-5.1 wioy=458) CHLORIDE (BEAKER) (test 93 meq/L 98-107 ffqy=982) CO2 (BEAKER) (test 20 meq/L 22-29 hwwu=736) BLOOD UREA NITROGEN 99 mg/dL 7-21 (BEAKER) (test hsbk=789) CREATININE (BEAKER) (test 4.97 mg/dL 0.57-1.25 rlrw=085) GLUCOSE RANDOM (BEAKER) 100 mg/dL 70-105 (test sawo=887) CALCIUM (BEAKER) (test 8.3 mg/dL 8.4-10.2 ohnk=933) EGFR (BEAKER) (test 9 mL/min/1.73 sq m ESTIMATED GFR IS NOT rzyr=1188) ACCURATE CREATININE CLEARANCE IN PREDICTING GLOMERULAR FILTRATION RATE. ESTIMATED GFR IS NOT APPLICABLE FOR DIALYSIS PATIENTS. [id number] 06:54:00 Test Item Value Reference Range Comments PHOSPHORUS (BEAKER) (test zlzk=296) 7.0 mg/dL 2.3-4.7 PTH, [id number] 06:42:00 Test Item Value Reference Range Comments PARATHYROID HORMONE INTACT (BEAKER) (test 690.0 pg/mL 8.5-72.5 gsbg=967) VANCOMYCIN LEVEL, [id number] 06:33:00 Test Item Value Reference Range Comments VANCOMYCIN RANDOM (BEAKER) (test hmdl=346) 14.4 ug/mL Reference Range: No NormalsCBC (HEMOGRAM ONLY)2018-03-19 06:14:00 Test Item Value Reference Range Comments WHITE BLOOD CELL COUNT (BEAKER) (test nkrq=286) 5.6 K/ L 3.5-10.5 RED BLOOD CELL COUNT (BEAKER) (test yeyz=276) 2.35 M/ L 3.93-5.22 HEMOGLOBIN (BEAKER) (test wqfd=829) 7.6 GM/DL 11.2-15.7 HEMATOCRIT (BEAKER) (test wauz=852) 23.7 % 34.1-44.9 MEAN CORPUSCULAR VOLUME (BEAKER) (test qtff=377) 100.9 fL 79.4-94.8 MEAN CORPUSCULAR HEMOGLOBIN (BEAKER) (test 32.3 pg 25.6-32.2 wscy=105) MEAN CORPUSCULAR HEMOGLOBIN CONC (BEAKER) (test 32.1 GM/DL 32.2-35.5 pqlr=508) RED CELL DISTRIBUTION WIDTH (BEAKER) (test 23.4 % 11.7-14.4 mnwq=261) PLATELET COUNT (BEAKER) (test nivb=991) 61 K/CU MM 150-450 NUCLEATED RED BLOOD CELLS (BEAKER) (test 1 /100 WBC 0-0 srnn=142) CBC W/PLT COUNT & AUTO [id number] 16:19:00 Test Item Value Reference Range Comments WHITE BLOOD CELL COUNT 5.0 K/ L 3.5-10.5 (BEAKER) (test ubvl=842) RED BLOOD CELL COUNT (BEAKER) 2.35 M/ L 3.93-5.22 (test yhyw=724) HEMOGLOBIN (BEAKER) (test 7.6 GM/DL 11.2-15.7 haui=965) HEMATOCRIT (BEAKER) (test 23.2 % 34.1-44.9 aeyj=572) MEAN CORPUSCULAR VOLUME 98.7 fL 79.4-94.8 (BEAKER) (test fxgr=004) MEAN CORPUSCULAR HEMOGLOBIN 32.3 pg 25.6-32.2 (BEAKER) (test tttz=181) MEAN CORPUSCULAR HEMOGLOBIN 32.8 GM/DL 32.2-35.5 CONC (BEAKER) (test prja=373) RED CELL DISTRIBUTION WIDTH 22.5 % 11.7-14.4 (BEAKER) (test uwxr=331) PLATELET COUNT (BEAKER) (test 65 K/CU MM 150-450 kcgf=960) MEAN PLATELET VOLUME (BEAKER) fL 9.4-12.3 Unable to report due to (test pmft=304) abnormal Platelet population distribution. NUCLEATED RED BLOOD CELLS 1 /100 WBC 0-0 (BEAKER) (test nzyg=374) NEUTROPHILS RELATIVE PERCENT 77 % (BEAKER) (test pbat=633) LYMPHOCYTES RELATIVE PERCENT 13 % (BEAKER) (test qvuc=158) MONOCYTES RELATIVE PERCENT 9 % (BEAKER) (test zllk=561) EOSINOPHILS RELATIVE PERCENT 0 % (BEAKER) (test gjkh=247) BASOPHILS RELATIVE PERCENT 0 % (BEAKER) (test dmyc=067) NEUTROPHILS ABSOLUTE COUNT 3.82 K/ L 1.56-6.13 (BEAKER) (test kxce=280) LYMPHOCYTES ABSOLUTE COUNT 0.62 K/ L 1.18-3.74 (BEAKER) (test qkwz=090) MONOCYTES ABSOLUTE COUNT 0.46 K/ L 0.24-0.36 (BEAKER) (test obkk=500) EOSINOPHILS ABSOLUTE COUNT 0.01 K/ L 0.04-0.36 (BEAKER) (test uvta=262) BASOPHILS ABSOLUTE COUNT 0.01 K/ L 0.01-0.08 (BEAKER) (test iwqq=675) IMMATURE GRANULOCYTES-RELATIVE 1 % 0-1 PERCENT (BEAKER) (test bvrb=5515) BASIC METABOLIC [id number] 16:10:00 Test Item Value Reference Range Comments SODIUM (BEAKER) (test 129 meq/L 136-145 rrvh=543) POTASSIUM (BEAKER) (test 4.8 meq/L 3.5-5.1 gqko=905) CHLORIDE (BEAKER) (test 94 meq/L 98-107 jofa=025) CO2 (BEAKER) (test 19 meq/L 22-29 jmsa=502) BLOOD UREA NITROGEN 88 mg/dL 7-21 (BEAKER) (test mubx=459) CREATININE (BEAKER) (test 4.42 mg/dL 0.57-1.25 gecs=501) GLUCOSE RANDOM (BEAKER) 111 mg/dL 70-105 (test cxak=573) CALCIUM (BEAKER) (test 8.4 mg/dL 8.4-10.2 stru=025) EGFR (BEAKER) (test 10 mL/min/1.73 sq m ESTIMATED GFR IS NOT kqte=0553) ACCURATE CREATININE CLEARANCE IN PREDICTING GLOMERULAR FILTRATION RATE. ESTIMATED GFR IS NOT APPLICABLE FOR DIALYSIS PATIENTS. [id number] 11:52:00 Test Item Value Reference Range Comments HAPTOGLOBIN (BEAKER) (test layi=819) 34 mg/dL 14-258 PERIPHERAL BLOOD SMEAR - HOLD [id number] 10:25:00 Test Item Value Reference Range Comments PERIPHERAL SMEAR SAVE (BEAKER) (test mrdg=4311) saved CALCIUM, [id number] 09:40:00 Test Item Value Reference Range Comments CALCIUM IONIZED (BEAKER) (test lkbg=430) 0.94 mmol/L 1.12-1.27 PH, BLOOD (BEAKER) (test jryt=9493) 7.48 LACTATE DEHYDROGENASE (LDH)2018-03-18 09:27:00 Test Item Value Reference Range Comments LACTATE DEHYDROGENASE (BEAKER) (test pvwc=778) 599 U/L 125-220 CBC (HEMOGRAM ONLY)2018-03-18 09:27:00 Test Item Value Reference Range Comments WHITE BLOOD CELL COUNT (BEAKER) (test xxap=820) 4.2 K/ L 3.5-10.5 RED BLOOD CELL COUNT (BEAKER) (test kvwd=601) 2.34 M/ L 3.93-5.22 HEMOGLOBIN (BEAKER) (test xvsw=279) 7.4 GM/DL 11.2-15.7 HEMATOCRIT (BEAKER) (test rijh=524) 22.8 % 34.1-44.9 MEAN CORPUSCULAR VOLUME (BEAKER) (test ibnp=379) 97.4 fL 79.4-94.8 MEAN CORPUSCULAR HEMOGLOBIN (BEAKER) (test 31.6 pg 25.6-32.2 ewhu=164) MEAN CORPUSCULAR HEMOGLOBIN CONC (BEAKER) (test 32.5 GM/DL 32.2-35.5 cuza=734) RED CELL DISTRIBUTION WIDTH (BEAKER) (test 22.5 % 11.7-14.4 fdxw=357) PLATELET COUNT (BEAKER) (test szde=360) 39 K/CU MM 150-450 NUCLEATED RED BLOOD CELLS (BEAKER) (test 1 /100 WBC 0-0 vcjw=194) RETICULOCYTE [id number] 09:24:00 Test Item Value Reference Range Comments RETICULOCYTE COUNT PCT (BEAKER) (test krut=310) 6.9 % 0.5-1.7 [id number] 09:16:00 Test Item Value Reference Range Comments D-DIMER QUANTITATIVE (BEAKER) (test lzeh=291) 3.18 MG/L FEU <0.50 Intended Use: The D-Dimer Assay can be used to aid in the diagnosis of Deep Vein Thrombosis (DVT) and Pulmonary Embolism Disease (PED).In patients with low pre-test probability, various studies concerning STA Liatest D-dimer test have reported that with a cutoff value of 0.50 MG/L FEU, the Negative Predictive Value (NPV) regarding the exclusion of thrombosis is within 95-100% range.[id number] 09:14:00 Test Item Value Reference Range Comments PARTIAL THROMBOPLASTIN TIME (BEAKER) (test 38.9 seconds 22.5-36.0 qvjv=890) PROTHROMBIN [id number] 09:13:00 Test Item Value Reference Range Comments PROTIME (BEAKER) (test btwo=325) 15.3 seconds 11.7-14.7 INR (BEAKER) (test opqu=872) 1.2 <=5.9 RECOMMENDED COUMADIN/WARFARIN INR THERAPY RANGESSTANDARD DOSE: 2.0 - 3.0 Includes: PROPHYLAXIS forvenous thrombosis, systemic embolization; TREATMENT for venous thrombosis and/or pulmonary embolus.HIGH RISK: Target INR is 2.5-3.5 for patients with mechanical heart valves.BASIC METABOLIC [id number] 08:52: 00 Test Item Value Reference Range Comments SODIUM (BEAKER) (test 135 meq/L 136-145 ulsr=191) POTASSIUM (BEAKER) (test 4.9 meq/L 3.5-5.1 splf=985) CHLORIDE (BEAKER) (test 96 meq/L 98-107 wwky=682) CO2 (BEAKER) (test 23 meq/L 22-29 udda=137) BLOOD UREA NITROGEN 77 mg/dL 7-21 (BEAKER) (test fqdf=052) CREATININE (BEAKER) (test 4.04 mg/dL 0.57-1.25 svtu=253) GLUCOSE RANDOM (BEAKER) 137 mg/dL 70-105 (test whud=001) CALCIUM (BEAKER) (test 8.8 mg/dL 8.4-10.2 smjw=753) EGFR (BEAKER) (test 12 mL/min/1.73 sq m ESTIMATED GFR IS NOT qgmi=7388) ACCURATE CREATININE CLEARANCE IN PREDICTING GLOMERULAR FILTRATION RATE. ESTIMATED GFR IS NOT APPLICABLE FOR DIALYSIS PATIENTS. CALCIUM, [id number] 08:21:00 Test Item Value Reference Range Comments CALCIUM IONIZED (BEAKER) (test fkvj=989) 0.72 mmol/L 1.12-1.27 PH, BLOOD (BEAKER) (test mjxz=6407) 7.46 OSMOLALITY, [id number] 07:36:00 Test Item Value Reference Range Comments OSMOLALITY URINE (BEAKER) (test unji=908) 316 mOsm/kg 40-1400 OSMOLALITY, [id number] 07:34:00 Test Item Value Reference Range Comments OSMOLALITY, SERUM (BEAKER) (test xejd=754) 303 mOsm/kg 275-295 CREATININE, RANDOM [id number] 07:26:00 Test Item Value Reference Range Comments CREATININE URINE (BEAKER) (test trst=880) 36.3 mg/dL Reference Range: No NormalsPOTASSIUM, RANDOM [id number] 07:26:00 Test Item Value Reference Range Comments POTASSIUM URINE (BEAKER) (test vrhj=780) 41.5 meq/L Reference Range: No NormalsSODIUM, RANDOM [id number] 07:26:00 Test Item Value Reference Range Comments SODIUM URINE (BEAKER) (test nikh=099) 57 meq/L Reference Range: No NormalsUREA NITROGEN, RANDOM [id number] 07:26:00 Test Item Value Reference Range Comments UREA NITROGEN URINE (BEAKER) (test njpq=883) 298 mg/dL Reference Range: No NormalsPERIPHERAL BLOOD SMEAR - HOLD [id number] 07:20:00 Test Item Value Reference Range Comments PERIPHERAL SMEAR SAVE (BEAKER) (test poji=6511) saved BASIC METABOLIC [id number] 06:08:00 Test Item Value Reference Range Comments SODIUM (BEAKER) (test 128 meq/L 136-145 kdus=835) POTASSIUM (BEAKER) (test 4.6 meq/L 3.5-5.1 jkmh=411) CHLORIDE (BEAKER) (test 94 meq/L 98-107 buws=078) CO2 (BEAKER) (test 20 meq/L 22-29 furc=092) BLOOD UREA NITROGEN 84 mg/dL 7-21 (BEAKER) (test yxan=091) CREATININE (BEAKER) (test 4.34 mg/dL 0.57-1.25 jcub=703) GLUCOSE RANDOM (BEAKER) 120 mg/dL 70-105 (test hctq=749) CALCIUM (BEAKER) (test 6.8 mg/dL 8.4-10.2 dubf=870) EGFR (BEAKER) (test 11 mL/min/1.73 sq m ESTIMATED GFR IS NOT fkbf=7594) ACCURATE CREATININE CLEARANCE IN PREDICTING GLOMERULAR FILTRATION RATE. ESTIMATED GFR IS NOT APPLICABLE FOR DIALYSIS PATIENTS. VANCOMYCIN LEVEL, [id number] 06:05:00 Test Item Value Reference Range Comments VANCOMYCIN RANDOM (JESSICAAKER) (test ajhe=315) < ug/mL Reference Range: No NormalsCALCIUM, [id number] 04:20:00 Test Item Value Reference Range Comments CALCIUM IONIZED (BEAKER) (test obby=578) 0.81 mmol/L 1.12-1.27 PH, BLOOD (BEAKER) (test maji=8947) 7.40 Range 1.12 - [id number] 03:54:00 Test Item Value Reference Range Comments D-DIMER QUANTITATIVE (BEAKER) (test wjgf=791) 4.50 MG/L FEU <0.50 Intended Use: The D-Dimer Assay can be used to aid in the diagnosis of Deep Vein Thrombosis (DVT) and Pulmonary Embolism Disease (PED).In patients with low pre-test probability, various studies concerning STA Liatest D-dimer test have reported that with a cutoff value of 0.50 MG/L FEU, the Negative Predictive Value (NPV) regarding the exclusion of thrombosis is within 95-100% range.[id number] 02:58:00 Test Item Value Reference Range Comments PROCALCITONIN (JESSICAAKER) (test rerw=3075) 8.65 ng/mL <0.05 SEPSIS RISK (ng/mL)Low: 0.05-0.50Intermediate: 0.51-2.00High: & gt;=2.01TROPONIN [id number] 02:29:00 Test Item Value Reference Range Comments TROPONIN I (BEAKER) (test divi=944) 0.77 ng/mL 0.00-0.03 Troponin I (TnI) levels [...] acute neurological disease, and persistent tachyarrhythmia.COMPREHENSIVE METABOLIC [id number] 02:11:00 Test Item Value Reference Range Comments TOTAL PROTEIN (BEAKER) 6.8 gm/dL 6.0-8.3 (test fnct=168) ALBUMIN (BEAKER) (test 2.9 g/dL 3.5-5.0 ngti=8003) ALKALINE PHOSPHATASE 100 U/L 40-150 (BEAKER) (test oksy=610) BILIRUBIN TOTAL (BEAKER) 1.4 mg/dL 0.2-1.2 (test mwhx=022) SODIUM (BEAKER) (test 127 meq/L 136-145 rbsq=367) POTASSIUM (BEAKER) (test 5.0 meq/L 3.5-5.1 whnk=713) CHLORIDE (BEAKER) (test 101 meq/L 98-107 sldz=334) CO2 (BEAKER) (test 15 meq/L 22-29 msbj=136) BLOOD UREA NITROGEN 87 mg/dL 7-21 (BEAKER) (test qqlj=784) CREATININE (BEAKER) (test 4.62 mg/dL 0.57-1.25 ivie=319) GLUCOSE RANDOM (BEAKER) 128 mg/dL 70-105 (test rshn=944) CALCIUM (BEAKER) (test 6.9 mg/dL 8.4-10.2 gmad=761) AST (SGOT) (BEAKER) (test 79 U/L 5-34 jwcx=970) ALT (SGPT) (BEAKER) (test 45 U/L 6-55 vnba=323) EGFR (BEAKER) (test 10 mL/min/1.73 sq m ESTIMATED GFR IS NOT vpzd=5939) ACCURATE CREATININE CLEARANCE IN PREDICTING GLOMERULAR FILTRATION RATE. ESTIMATED GFR IS NOT APPLICABLE FOR DIALYSIS PATIENTS. RAD, CHEST, 1 VIEW, NON [id number] 01:44:00Reason for exam:-> HEMODIALYSIS CATHTER PLACEMENTShould this [...] MDReport Verified Date/Time: 03/18/2018 01:44:10 Reading Location: [facility] C013Y CT Body Reading Room [id number] 01:37:00 Test Item Value Reference Range Comments FIBRINOGEN LEVEL (BEAKER) (test wjyj=304) 466 mg/dl 225-434 [id number] 01:37:00 Test Item Value Reference Range Comments PARTIAL THROMBOPLASTIN TIME (BEAKER) (test 33.6 seconds 22.5-36.0 xzuv=793) PROTHROMBIN TIME/[id number] 01:36:00 Test Item Value Reference Range Comments PROTIME (BEAKER) (test byki=302) 17.0 seconds 11.7-14.7 INR (BEAKER) (test vwen=246) 1.4 <=5.9 RECOMMENDED COUMADIN/WARFARIN INR THERAPY RANGESSTANDARD DOSE: 2.0 - 3.0 Includes: PROPHYLAXIS forvenous thrombosis, systemic embolization; TREATMENT for venous thrombosis and/or pulmonary embolus.HIGH RISK: Target INR is 2.5-3.5 for patients with mechanical heart valves.LACTIC ACID, VENOUS, WHOLE [id number] 01:26:00 Test Item Value Reference Range Comments LACTATE BLOOD VENOUS (2) (BEAKER) (test 1.7 mmol/L 0.5-2.2 fgym=4056) Effective 11/28/2015: Units/Reference Range ChangeNew: 0.5-2.2 mmol/L Previous: 5 -20 mg/dLCBC (HEMOGRAM ONLY)2018-03-18 01:16:00 Test Item Value Reference Range Comments WHITE BLOOD CELL COUNT (BEAKER) (test exar=376) 4.3 K/ L 3.5-10.5 RED BLOOD CELL COUNT (BEAKER) (test uuhw=401) 2.67 M/ L 3.93-5.22 HEMOGLOBIN (BEAKER) (test kafj=900) 8.6 GM/DL 11.2-15.7 HEMATOCRIT (BEAKER) (test hron=872) 25.6 % 34.1-44.9 MEAN CORPUSCULAR VOLUME (BEAKER) (test tpnn=364) 95.9 fL 79.4-94.8 MEAN CORPUSCULAR HEMOGLOBIN (BEAKER) (test 32.2 pg 25.6-32.2 oogb=833) MEAN CORPUSCULAR HEMOGLOBIN CONC (BEAKER) (test 33.6 GM/DL 32.2-35.5 vvbz=953) RED CELL DISTRIBUTION WIDTH (BEAKER) (test 21.9 % 11.7-14.4 daut=546) PLATELET COUNT (BEAKER) (test ohmt=876) 39 K/CU MM 150-450 NUCLEATED RED BLOOD CELLS (BEAKER) (test 1 /100 WBC 0-0 impg=642) CT, BIOPSY, BONE [id number] 17:06:00Reason for exam:->pancytopenia in setting of metastatic breast cancer, chemotherapy held almost 2monthsFINAL REPORT PROCEDURE: CT-guided bone marrow biopsy DOSE REDUCTION: The examination was performed according to departmental dose- optimization program which includes automated exposure control, adjustment of the mA and/or kV according to patient size and/or use of iterative reconstruction technique. Clinical History: Pancytopenia Weatherization Director: Marce Conscious sedation: Versed 1 mg,fentanyl 50 [...] immediately removed and provided to the medical technologist prn. Subsequently a core biopsy was obtained using the outer sheath. The needle and sheath were removed.Postprocedure CT evaluation of the area revealed no significant hematoma. Patient tolerated the procedure well and remained hemodynamically stable throughout. IMPRESSION: Successful and uncomplicated CT -guided bone marrow aspiration and core biopsy. Signed: Jordan Sultanaort Verified Date/Time: 03/17/2018 17:06:03 Reading Location: [facility] [address] Radiology Reading Room 05: 06 PMBONE MARROW PROCESS ([facility]2018-03-17 15:16:00 Test Item Value Reference Range Comments ANATOMIC CASE# (JESSICATON) (test lyxo=2211) [id number] ORDERED BY DOCTOR# (ADDY) (test vfgm=4827) jordan Sultana m.d. PERFORMED BY DOCTOR# (ADDY) (test Jordan Sultana m.d. xmsb=1386) CLOT RECEIVED? (BEAKER) (test xtvw=6906) Yes BIOPSY RECEIVED? (BEAKER) (test xsmc=6707) Yes CULTURE RECEIVED? (BEAKER) (test yupf=2441) No FLOW RECEIVED? (BEAKER) (test pjfn=3062) Yes CYTOGENICS? (BEAKER) (test mced=2146) Yes MOLECULAR GENETICS? (ADDY) (test No eqja=0058) RAD, CHEST, 2 [id number] 13:39:00Reason for exam:->sobFINAL REPORT Comparison: 15/08/2017 TECHNIQUE: 2 views of the chest FINDINGS: There is mild vascular congestion. There are small pleural effusions. Cardiac silhouette is enlarged.Left internal jugular chest port noted with tip at the cavoatrial junction. Surgical clips project over the right chest wall. Signed: Jordan Sultana MDReport Verified Date/Time: 03/17/2018 13:39:16 Reading Location: [facility] Radiology Reading Room [id number] 13:20:00 Test Item Value Reference Range Comments HAPTOGLOBIN (BEAKER) (test irpl=044) < mg/dL 14-258 COMPLEMENT COMPONENT [id number] 12:57:00 Test Item Value Reference Range Comments C4 COMPLEMENT (BEAKER) (test kiwr=072) 22 mg/dL 15-57 COMPLEMENT COMPONENT [id number] 12:57:00 Test Item Value Reference Range Comments C3 COMPLEMENT (BEAKER) (test aieb=594) 94 mg/dL 82-193 PERIPHERAL BLOOD SMEAR - PATHOLOGIST [id number] 09:47:00 Test Item Value Reference Range Comments PERIPHERAL SMR REVIEW Normochromic normocytic anemia (BEAKER) (test vigo=8235) with rare schistocytes seen (1-2/ HPF). WBCs normal in number and morphology. Thrombocytopenia with a few large forms. [id number] Michelle Yu M.D. (electronic (BEAKER) (test wrew=0616) signature) TROPONIN [id number] 07:07:00 Test Item Value Reference Range Comments TROPONIN I (BEAKER) (test mbdz=051) 1.56 ng/mL 0.00-0.15 Troponin I (TnI) levels [...] acute neurological disease, and persistent tachyarrhythmia.BASIC METABOLIC [id number] 07:06:00 Test Item Value Reference Range Comments SODIUM (BEAKER) (test 131 meq/L 135-148 yzar=206) POTASSIUM (BEAKER) (test 5.8 meq/L 3.6-5.5 qohg=274) CHLORIDE (BEAKER) (test 107 meq/L 98-106 acvi=103) CO2 (BEAKER) (test 12 meq/L 20-29 kwyc=189) BLOOD UREA NITROGEN 74 mg/dL 10-26 (BEAKER) (test rmni=306) CREATININE (BEAKER) (test 3.95 mg/dL 0.50-1.20 rhtr=076) GLUCOSE RANDOM (BEAKER) 133 mg/dL 70-110 (test crft=562) CALCIUM (BEAKER) (test 7.6 mg/dL 8.5-10.5 pfou=265) EGFR (BEAKER) (test 12 mL/min/1.73 sq m ESTIMATED GFR IS NOT dnyc=1354) ACCURATE CREATININE CLEARANCE IN PREDICTING GLOMERULAR FILTRATION RATE. ESTIMATED GFR IS NOT APPLICABLE FOR DIALYSIS PATIENTS. [id number] 06:45:00 Test Item Value Reference Range Comments MAGNESIUM (BEAKER) (test btia=359) 2.0 mg/dL 1.5-3.0 CBC W/PLT COUNT & AUTO [id number] 06:35:00 Test Item Value Reference Range Comments WHITE BLOOD CELL COUNT (BEAKER) (test rtoo=770) 8.7 K/ L 4.0-10.0 RED BLOOD CELL COUNT (BEAKER) (test loul=801) 3.26 M/ L 4.00-5.00 HEMOGLOBIN (BEAKER) (test jjfp=034) 10.2 GM/DL 12.0-15.5 HEMATOCRIT (BEAKER) (test wuqi=811) 31.9 % 36.0-46.0 MEAN CORPUSCULAR VOLUME (BEAKER) (test mqkn=920) 97.9 fL 82.0-99.0 MEAN CORPUSCULAR HEMOGLOBIN (BEAKER) (test 31.3 pg 27.0-33.0 aotg=450) MEAN CORPUSCULAR HEMOGLOBIN CONC (BEAKER) (test 32.0 GM/DL 32.0-36.0 tkzq=184) RED CELL DISTRIBUTION WIDTH (BEAKER) (test 20.8 % 12.0-15.0 iodj=386) PLATELET COUNT (BEAKER) (test zhah=047) 62 K/CU MM 150-430 MEAN PLATELET VOLUME (BEAKER) (test pehy=782) 10.5 fL 6.0-11.5 NUCLEATED RED BLOOD CELLS (BEAKER) (test 0 /100 WBC 0-0 rjwo=767) NEUTROPHILS RELATIVE PERCENT (BEAKER) (test 80 % zmgx=548) LYMPHOCYTES RELATIVE PERCENT (BEAKER) (test 11 % hdxn=283) MONOCYTES RELATIVE PERCENT (BEAKER) (test 8 % javu=975) EOSINOPHILS RELATIVE PERCENT (BEAKER) (test 0 % tkiq=642) BASOPHILS RELATIVE PERCENT (BEAKER) (test 0 % rtro=837) NEUTROPHILS ABSOLUTE COUNT (BEAKER) (test 6.95 K/ L 1.80-8.00 biat=743) LYMPHOCYTES ABSOLUTE COUNT (BEAKER) (test 0.92 K/ L 1.48-4.50 nhke=046) MONOCYTES ABSOLUTE COUNT (BEAKER) (test tqdg=135) 0.72 K/ L 0.00-1.30 EOSINOPHILS ABSOLUTE COUNT (BEAKER) (test 0.00 K/ L 0.00-0.50 ygtr=981) BASOPHILS ABSOLUTE COUNT (BEAKER) (test xmmr=649) 0.01 K/ L 0.00-0.20 IMMATURE GRANULOCYTES-RELATIVE PERCENT (BEAKER) 1 % 0-0 (test yaqp=5511) BLOOD GAS, [id number] 05:27:00 Test Item Value Reference Range Comments PH ARTERIAL (BEAKER) (test slez=892) 7.40 7.35-7.45 PCO2 ARTERIAL (BEAKER) (test ycal=057) 18 mmHg 35-45 PO2 ARTERIAL (BEAKER) (test qwlf=831) 72 mmHg 80-90 O2 SATURATION ARTERIAL (BEAKER) (test flpm=898) 94.7 % 96.0-97.0 HCO3 ARTERIAL (BEAKER) (test ejwj=730) 11 mmol/L 21-29 BASE EXCESS ARTERIAL (BEAKER) (test pgxu=468) -12.0 mmol/L -2.0-3.0 PATIENT TEMPERATURE (BEAKER) (test skcz=2048) 37.5 C FIO2 (BEAKER) (test atei=4763) 28.0 % PROTEIN, RANDOM [id number] 00:47:00 Test Item Value Reference Range Comments PROTEIN, URINE (BEAKER) (test cymv=0190) 432 mg/dL 0-14 CREATININE, RANDOM [id number] 00:03:00 Test Item Value Reference Range Comments CREATININE URINE (BEAKER) (test lgwa=768) 68.6 mg/dL Reference Range: No NormalsURINALYSIS W/ [id number] 23:56:00 Test Item Value Reference Range Comments COLOR (BEAKER) (test afos=699) Yellow CLARITY (BEAKER) (test jwph=252) Clear SPECIFIC GRAVITY UA (BEAKER) (test upsr=873) 1.020 1.001-1.035 PH UA (BEAKER) (test jdrp=626) 5.5 5.0-8.0 PROTEIN UA (BEAKER) (test xgcz=475) >=300 mg/dL Negative GLUCOSE UA (BEAKER) (test pbsp=124) Negative Negative KETONES UA (BEAKER) (test obke=924) Negative Negative BILIRUBIN UA (BEAKER) (test vbps=291) Negative Negative BLOOD UA (BEAKER) (test ekcs=478) Large Negative NITRITE UA (BEAKER) (test tsus=431) Negative Negative LEUKOCYTE ESTERASE UA (BEAKER) (test drbg=339) Trace Negative UROBILINOGEN UA (BEAKER) (test czvi=733) 0.2 mg/dL 0.2-1.0 BACTERIA (BEAKER) (test rdck=666) Occasional AMORPHOUS CRYSTALS (BEAKER) (test vfuz=5375) Few RBC UA-MANUAL (BEAKER) (test wlqi=0534) 5-10 /HPF WBC UA-MANUAL (BEAKER) (test arwj=9637) <5 /HPF SQUAMOUS EPITHELIAL MANUAL (BEAKER) (test 5-10 /HPF kzjw=8908) GRANULAR CASTS MANUAL (BEAKER) (test xrze=4281) Few /LPF SOURCE(BEAKER) (test opgw=5926) KETONE, [id number] 22:28:00 Test Item Value Reference Range Comments KETONES, BLOOD (BEAKER) (test dzue=7230) 0.3 mmol/L <0.4 BILIRUBIN, TOTAL AND [id number] 22:17:00 Test Item Value Reference Range Comments BILIRUBIN TOTAL (BEAKER) (test uyle=379) 2.1 mg/dL 0.1-1.2 BILIRUBIN DIRECT (BEAKER) (test rsil=415) 1.1 mg/dL 0.0-0.4 LACTATE DEHYDROGENASE (LDH)2018-03-16 22:16:00 Test Item Value Reference Range Comments LACTATE DEHYDROGENASE (BEAKER) (test ssek=902) 1540 U/L 107-206 TROPONIN [id number] 19:44:00 Test Item Value Reference Range Comments TROPONIN I (BEAKER) (test dwft=326) 0.24 ng/mL 0.00-0.15 Troponin I (TnI) levels [...] acidosis, acute neurological disease, and persistent tachyarrhythmia.TROPONIN [id number] 10:58:00 Test Item Value Reference Range Comments TROPONIN I (BEAKER) (test uany=048) 0.17 ng/mL 0.00-0.15 Troponin I (TnI) levels [...] and persistent tachyarrhythmia.CREATINE KINASE (CK), TOTAL AND [id number] 10:57:00 Test Item Value Reference Range Comments CREATINE KINASE TOTAL (BEAKER) (test afob=354) 125 U/L 25-235 CREATINE KINASE-MB (BEAKER) (test hatb=665) 0.9 ng/mL 0.0-4.9 CREATINE KINASE-MB INDEX (BEAKER) (test cklc=642) 0.7 % CK-MB Reference Range:<5 Normal5-10 Borderline>10 AbnormalCOMPREHENSIVE METABOLIC [id number] 10:53:00 Test Item Value Reference Range Comments TOTAL PROTEIN (BEAKER) 7.7 gm/dL 6.0-8.5 (test zbta=927) ALBUMIN (BEAKER) (test 3.4 g/dL 3.5-5.0 auqo=6159) ALKALINE PHOSPHATASE 45 U/L 30-115 (BEAKER) (test oqoi=305) BILIRUBIN TOTAL (BEAKER) 1.4 mg/dL 0.1-1.2 (test tdsr=964) SODIUM (BEAKER) (test 132 meq/L 135-148 yrns=290) POTASSIUM (BEAKER) (test 4.8 meq/L 3.6-5.5 rlsr=110) CHLORIDE (BEAKER) (test 106 meq/L 98-106 bmsj=960) CO2 (BEAKER) (test 13 meq/L 20-29 oiez=952) BLOOD UREA NITROGEN 63 mg/dL 10-26 (BEAKER) (test qwqa=338) CREATININE (BEAKER) (test 3.73 mg/dL 0.50-1.20 fodf=288) GLUCOSE RANDOM (BEAKER) 94 mg/dL 70-110 (test dbic=241) CALCIUM (BEAKER) (test 8.2 mg/dL 8.5-10.5 upyv=987) AST (SGOT) (BEAKER) (test 59 U/L 5-40 hkmh=088) ALT (SGPT) (BEAKER) (test 23 U/L 5-50 wghx=444) EGFR (BEAKER) (test 13 mL/min/1.73 sq m ESTIMATED GFR IS NOT dxiw=7447) ACCURATE CREATININE CLEARANCE IN PREDICTING GLOMERULAR FILTRATION RATE. ESTIMATED GFR IS NOT APPLICABLE FOR DIALYSIS PATIENTS. URINALYSIS W/ [id number] 10:49:00 Test Item Value Reference Range Comments COLOR (BEAKER) (test midk=368) Yellow CLARITY (BEAKER) (test idbz=221) Clear SPECIFIC GRAVITY UA (BEAKER) (test stto=305) 1.020 1.001-1.035 PH UA (BEAKER) (test hrha=661) 5.5 5.0-8.0 PROTEIN UA (BEAKER) (test tnsh=193) >=300 mg/dL Negative GLUCOSE UA (BEAKER) (test cttn=224) Negative Negative KETONES UA (BEAKER) (test ycds=656) Negative Negative BILIRUBIN UA (BEAKER) (test hdrm=289) Negative Negative BLOOD UA (BEAKER) (test zfzq=253) Large Negative NITRITE UA (BEAKER) (test psdk=904) Negative Negative LEUKOCYTE ESTERASE UA (BEAKER) (test kpwd=128) Negative Negative UROBILINOGEN UA (BEAKER) (test zjet=063) 0.2 mg/dL 0.2-1.0 BACTERIA (BEAKER) (test pgcp=404) Few AMORPHOUS CRYSTALS (BEAKER) (test fwyz=7114) Moderate RBC UA-MANUAL (BEAKER) (test xdwv=8782) 5-10 /HPF WBC UA-MANUAL (BEAKER) (test kkal=7011) <5 /HPF SQUAMOUS EPITHELIAL MANUAL (BEAKER) (test 5-10 /HPF qctx=3510) WAXY CASTS MANUAL (BEAKER) (test rhaq=4028) 5-10 /LPF SOURCE(BEAKER) (test ymzv=6146) CBC W/PLT COUNT & AUTO [id number] 10:49:00 Test Item Value Reference Range Comments WHITE BLOOD CELL COUNT (BEAKER) (test poow=752) 4.0 K/ L 4.0-10.0 RED BLOOD CELL COUNT (BEAKER) (test bcmy=415) 1.64 M/ L 4.00-5.00 HEMOGLOBIN (BEAKER) (test bbgb=830) 5.5 GM/DL 12.0-15.5 HEMATOCRIT (BEAKER) (test hqds=832) 17.6 % 36.0-46.0 MEAN CORPUSCULAR VOLUME (BEAKER) (test jzdi=424) 107.3 fL 82.0-99.0 MEAN CORPUSCULAR HEMOGLOBIN (BEAKER) (test 33.5 pg 27.0-33.0 dibc=026) MEAN CORPUSCULAR HEMOGLOBIN CONC (BEAKER) (test 31.3 GM/DL 32.0-36.0 cswl=561) RED CELL DISTRIBUTION WIDTH (BEAKER) (test 23.5 % 12.0-15.0 iakk=515) PLATELET COUNT (BEAKER) (test srrx=797) 66 K/CU MM 150-430 MEAN PLATELET VOLUME (BEAKER) (test eckn=050) 11.3 fL 6.0-11.5 NUCLEATED RED BLOOD CELLS (BEAKER) (test 0 /100 WBC 0-0 msjp=007) NEUTROPHILS RELATIVE PERCENT (BEAKER) (test 81 % lixr=001) LYMPHOCYTES RELATIVE PERCENT (BEAKER) (test 9 % gyle=945) MONOCYTES RELATIVE PERCENT (BEAKER) (test 9 % dszy=803) EOSINOPHILS RELATIVE PERCENT (BEAKER) (test 0 % hvoq=479) BASOPHILS RELATIVE PERCENT (BEAKER) (test 0 % vlke=743) NEUTROPHILS ABSOLUTE COUNT (BEAKER) (test 3.21 K/ L 1.80-8.00 kdmg=160) LYMPHOCYTES ABSOLUTE COUNT (BEAKER) (test 0.36 K/ L 1.48-4.50 sgxj=271) MONOCYTES ABSOLUTE COUNT (BEAKER) (test azma=317) 0.34 K/ L 0.00-1.30 EOSINOPHILS ABSOLUTE COUNT (BEAKER) (test 0.01 K/ L 0.00-0.50 fwte=376) BASOPHILS ABSOLUTE COUNT (BEAKER) (test xyoz=949) 0.00 K/ L 0.00-0.20 IMMATURE GRANULOCYTES-RELATIVE PERCENT (BEAKER) 1 % 0-0 (test okjt=3464) (MANUAL DIFFERENTIAL)2018-03-16 10:49:00 Test Item Value Reference Range Comments TOTAL COUNTED (BEAKER) (test ltat=0422) WBC MORPHOLOGY (BEAKER) (test fysr=480) Normal PLT MORPHOLOGY (BEAKER) (test daxe=259) Normal SCHISTOCYTES (BEAKER) (test nynb=814) 1+ few ANISOCYTOSIS (BEAKER) (test gqxc=534) 1+ few MACROCYTES (BEAKER) (test muyu=690) 1+ few MICROCYTES (BEAKER) (test xdly=021) 1+ few POIKILOCYTES (BEAKER) (test hxyc=614) 1+ few POLYCHROMATOPHILLIC RBCS(BEAKER) (test ejef=571) 1+ few [id number] 10:46:00 Test Item Value Reference Range Comments PROTIME (BEAKER) (test lyrw=144) 11.1 sec 9.3-12.0 INR (BEAKER) (test dret=437) 1.0 <=5.9 PARTIAL THROMBOPLASTIN TIME (BEAKER) (test 31.0 sec 23.0-35.0 qpzq=163) RECOMMENDED COUMADIN/WARFARIN INR THERAPY RANGESSTANDARD DOSE: 2.0 - 3.0 Includes: PROPHYLAXIS forvenous thrombosis, systemic embolization; TREATMENT for venous thrombosis and/or pulmonary embolus.HIGH RISK: Target INR is 2.5-3.5 for patients with mechanical heart valves.Final Information (Auto Output)Final Information (Auto Output)Final Information (Auto Output)LACTIC ACID, VENOUS, WHOLE [id number] 10:45:00 Test Item Value Reference Range Comments LACTATE BLOOD VENOUS (2) (BEAKER) (test 2.2 mmol/L 0.5-2.2 xvij=9107) Effective 11/28/2015: Units/Reference Range ChangeNew: 0.5-2.2 mmol/L Previous: 5 -18 mg/dLRAD, CHEST, 1 VIEW, NON [id number] 10:14:00Reason for exam:-> chest painIs the patient [...] MDReport Verified Date/Time: 03/16/2018 10:14:32 Reading Location: [facility] [address] Radiology Reading Room 10: 14 AMBLOOD [id number] 22:01:00 Test Item Value Reference Range Comments CULTURE (BEAKER) (test ebwy=7837) No growth in 5 days BLOOD [id number] 22:01:00 Test Item Value Reference Range Comments CULTURE (BEAKER) (test ylvu=3521) No growth in 5 days RESPIRATORY PANEL [id number] 09:21:00 Test Item Value Reference Range Comments HUMAN METAPNEUMOVIRUS (BEAKER) (test Not detected Not detected, Inconclusive ftew=8476) RHINOVIRUS (BEAKER) (test vccw=8178) Not detected Not detected, Inconclusive INFLUENZA A (BEAKER) (test Not detected Not detected, Inconclusive eaph=4092) INFLUENZA A SUBTYPE H1 (BEAKER) Not detected Not detected, Inconclusive (test mech=1999) INFLUENZA A SUBTYPE H3 (BEAKER) Not detected Not detected, Inconclusive (test yswh=1071) INFLUENZA A SUBTYPE H1-2009 (BEAKER) Not detected Not detected, Inconclusive (test hjne=0027) INFLUENZA B (BEAKER) (test Not detected Not detected, Inconclusive myxo=3944) RESPIRATORY SYNCYTIAL VIRUS (BEAKER) Not detected Not detected, Inconclusive (test wwzu=7221) PARAINFLUENZA VIRUS 1 (BEAKER) (test Not detected Not detected, Inconclusive ngeg=1961) PARAINFLUENZA VIRUS 2 (BEAKER) (test Not detected Not detected, Inconclusive rped=0389) PARAINFLUENZA VIRUS 3 (BEAKER) (test Not detected Not detected, Inconclusive avpx=6798) PARAINFLUENZA VIRUS 4 (BEAKER) (test Not detected Not detected, Inconclusive ogpk=5722) ADENOVIRUS (BEAKER) (test fwjg=0536) Not detected Not detected, Inconclusive CORONAVIRUS 229E (BEAKER) (test Not detected Not detected, Inconclusive xpsq=5018) CORONAVIRUS HKU1 (BEAKER) (test Not detected Not detected, Inconclusive clxq=1719) CORONAVIRUS NL63 (BEAKER) (test Not detected Not detected, Inconclusive mncd=5405) CORONAVIRUS OC43 (BEAKER) (test Not detected Not detected, Inconclusive gayq=0167) BORDETELLA PERTUSSIS (BEAKER) (test Not detected Not detected, Inconclusive lfkn=5610) CHLAMYDOPHILA PNEUMONIAE (BEAKER) Not detected Not detected, Inconclusive (test stqq=9822) MYCOPLASMA PNEUMONIAE (BEAKER) (test Not detected Not detected, Inconclusive ectb=7785) VANCOMYCIN LEVEL, [id number] 07:38:00 Test Item Value Reference Range Comments VANCOMYCIN TROUGH (BEAKER) (test coyx=278) 11.7 ug/mL 10.0-20.0 URINE [id number] 08:56:00 Test Item Value Reference Range Comments CULTURE (BEAKER) (test zvkt=1822) No growth CBC W/PLT COUNT & AUTO [id number] 06:39:00 Test Item Value Reference Range Comments WHITE BLOOD CELL COUNT (BEAKER) (test etnr=182) 2.4 K/ L 4.0-10.0 RED BLOOD CELL COUNT (BEAKER) (test ucqj=701) 2.56 M/ L 4.00-5.00 HEMOGLOBIN (BEAKER) (test ifhn=692) 8.4 GM/DL 12.0-15.0 HEMATOCRIT (BEAKER) (test yvcu=202) 24.6 % 36.0-45.0 MEAN CORPUSCULAR VOLUME (BEAKER) (test jtcd=016) 96.4 fL 82.0-99.0 MEAN CORPUSCULAR HEMOGLOBIN (BEAKER) (test 33.0 pg 27.0-33.0 oytu=619) MEAN CORPUSCULAR HEMOGLOBIN CONC (BEAKER) (test 34.2 GM/DL 32.0-36.0 udgx=148) RED CELL DISTRIBUTION WIDTH (BEAKER) (test 19.7 % 10.3-14.2 okeb=458) PLATELET COUNT (BEAKER) (test wbes=532) 108 K/CU MM 150-430 MEAN PLATELET VOLUME (BEAKER) (test lopa=450) 8.8 fL 6.5-10.5 NUCLEATED RED BLOOD CELLS (BEAKER) (test 0 /100 WBC 0-0 bpur=449) (MANUAL DIFFERENTIAL)2017-12-10 06:39:00 Test Item Value Reference Range Comments NEUTROPHILS - REL (DIFF) (BEAKER) (test npib=3824) 83 % LYMPHOCYTES - REL (DIFF) (BEAKER) (test bixo=1699) 15 % MONOCYTES - REL (DIFF) (BEAKER) (test cfyi=4790) 2 % NEUTROPHILS - ABS (DIFF) (BEAKER) (test gksw=1925) 1.99 K/ L 1.80-8.00 LYMPHOCYTES - ABS (DIFF) (BEAKER) (test ukmj=0360) 0.36 K/ L 1.48-4.50 MONOCYTES - ABS (DIFF) (BEAKER) (test fwxh=8069) 0.05 K/ L 0.00-1.30 TOTAL COUNTED (BEAKER) (test mfmg=0860) 100 WBC MORPHOLOGY (BEAKER) (test lrmp=990) Normal PLT MORPHOLOGY (BEAKER) (test caxc=691) Normal RBC MORPHOLOGY (BEAKER) (test fjsr=097) Normal POCT-GLUCOSE [id number] 14:39:00 Test Item Value Reference Range Comments POC-GLUCOSE METER (BEAKER) 125 mg/dL 70-110 TESTED AT [address] (test rkzu=5609) [facility] [address] CBC W/PLT COUNT & AUTO [id number] 06:47:00 Test Item Value Reference Range Comments WHITE BLOOD CELL COUNT (BEAKER) (test 2.2 K/ L 4.0-10.0 otuq=166) RED BLOOD CELL COUNT (BEAKER) (test 2.72 M/ L 4.00-5.00 zwzq=951) HEMOGLOBIN (BEAKER) (test akgh=134) 9.1 GM/DL 12.0-15.0 HEMATOCRIT (BEAKER) (test ojkz=428) 26.2 % 36.0-45.0 MEAN CORPUSCULAR VOLUME (BEAKER) (test 96.3 fL 82.0-99.0 zwxu=253) MEAN CORPUSCULAR HEMOGLOBIN (BEAKER) 33.3 pg 27.0-33.0 (test chek=167) MEAN CORPUSCULAR HEMOGLOBIN CONC 34.5 GM/DL 32.0-36.0 (BEAKER) (test uuon=284) RED CELL DISTRIBUTION WIDTH (BEAKER) 18.3 % 10.3-14.2 (test xpyy=469) PLATELET COUNT (BEAKER) (test xeia=264) 129 K/CU MM 150-430 No clot detected MEAN PLATELET VOLUME (BEAKER) (test 7.8 fL 6.5-10.5 pstj=562) NEUTROPHILS RELATIVE PERCENT (BEAKER) 81 % (test ilth=344) LYMPHOCYTES RELATIVE PERCENT (BEAKER) 14 % (test ibon=362) MONOCYTES RELATIVE PERCENT (BEAKER) 4 % (test updc=393) EOSINOPHILS RELATIVE PERCENT (BEAKER) 0 % (test eggo=791) BASOPHILS RELATIVE PERCENT (BEAKER) 0 % (test ewlw=713) NEUTROPHILS ABSOLUTE COUNT (BEAKER) 1.80 K/ L 1.80-8.00 (test ekdn=834) LYMPHOCYTES ABSOLUTE COUNT (BEAKER) 0.30 K/ L 1.48-4.50 (test igqi=587) MONOCYTES ABSOLUTE COUNT (BEAKER) (test 0.10 K/ L 0.00-1.30 nqcm=394) EOSINOPHILS ABSOLUTE COUNT (BEAKER) 0.00 K/ L 0.00-0.50 (test jgpc=553) BASOPHILS ABSOLUTE COUNT (BEAKER) (test 0.00 K/ L 0.00-0.20 moph=789) BASIC METABOLIC [id number] 05:54:00 Test Item Value Reference Range Comments SODIUM (BEAKER) (test 138 meq/L 135-148 jyfw=793) POTASSIUM (BEAKER) (test 3.9 meq/L 3.6-5.5 lvij=288) CHLORIDE (BEAKER) (test 105 meq/L 98-106 mhun=941) CO2 (BEAKER) (test 26 meq/L 20-29 dyjj=470) BLOOD UREA NITROGEN 14 mg/dL 10-26 (BEAKER) (test uojm=343) CREATININE (BEAKER) (test 0.76 mg/dL 0.50-1.20 vpbl=970) GLUCOSE RANDOM (BEAKER) 84 mg/dL 70-110 (test nftp=398) CALCIUM (BEAKER) (test 8.2 mg/dL 8.5-10.5 olxz=856) EGFR (BEAKER) (test 80 mL/min/1.73 sq m ESTIMATED GFR IS NOT tbee=2114) ACCURATE CREATININE CLEARANCE IN PREDICTING GLOMERULAR FILTRATION RATE. ESTIMATED GFR IS NOT APPLICABLE FOR DIALYSIS PATIENTS. RAD, CHEST, 2 [id number] 19:36:00Reason for exam:->FEVERIs the patient ?->NoShould this [...] MDReport Verified Date/Time: 12/08/2017 19:36:34 Reading Location: [facility] B1 [id number] Consult Reading Room URINALYSIS W/ [id number] 19:33:00 Test Item Value Reference Range Comments COLOR (BEAKER) (test azfi=822) Yellow CLARITY (BEAKER) (test xxfb=623) Clear SPECIFIC GRAVITY UA (BEAKER) (test xxxz=597) <= 1.001-1.035 PH UA (BEAKER) (test riob=023) 5.5 5.0-8.0 PROTEIN UA (BEAKER) (test fefx=333) Negative Negative GLUCOSE UA (BEAKER) (test alpl=326) Negative Negative KETONES UA (BEAKER) (test rgkn=447) Negative Negative BILIRUBIN UA (BEAKER) (test ylza=352) Negative Negative BLOOD UA (BEAKER) (test xlbz=290) Negative Negative NITRITE UA (BEAKER) (test tjua=425) Negative Negative LEUKOCYTE ESTERASE UA (BEAKER) (test ffvr=971) Negative Negative UROBILINOGEN UA (BEAKER) (test svch=337) 0.2 mg/dL 0.2-1.0 BACTERIA (BEAKER) (test dbuy=121) Occasional RBC UA-MANUAL (BEAKER) (test lwkz=8395) <5 /HPF WBC UA-MANUAL (BEAKER) (test cwzk=0268) <5 /HPF SQUAMOUS EPITHELIAL MANUAL (BEAKER) (test <5 /HPF nlfa=9310) SOURCE(BEAKER) (test fyiw=6999) COMPREHENSIVE METABOLIC [id number] 19:01:00 Test Item Value Reference Range Comments TOTAL PROTEIN (BEAKER) 8.1 gm/dL 6.0-8.5 (test sbwm=013) ALBUMIN (BEAKER) (test 4.1 g/dL 3.5-5.0 mzqv=4332) ALKALINE PHOSPHATASE 75 U/L 30-115 (BEAKER) (test zdtq=702) BILIRUBIN TOTAL (BEAKER) 0.6 mg/dL 0.1-1.2 (test kwhk=332) SODIUM (BEAKER) (test 132 meq/L 135-148 ncam=994) POTASSIUM (BEAKER) (test 3.6 meq/L 3.6-5.5 fmrl=530) CHLORIDE (BEAKER) (test 97 meq/L 98-106 dkcq=717) CO2 (BEAKER) (test 23 meq/L 20-29 jmcc=491) BLOOD UREA NITROGEN 18 mg/dL 10-26 (BEAKER) (test yevh=859) CREATININE (BEAKER) (test 1.02 mg/dL 0.50-1.20 qodz=265) GLUCOSE RANDOM (BEAKER) 102 mg/dL 70-110 (test rpef=816) CALCIUM (BEAKER) (test 8.6 mg/dL 8.5-10.5 iujh=520) AST (SGOT) (BEAKER) (test 38 U/L 5-40 qpbj=390) ALT (SGPT) (BEAKER) (test 49 U/L 5-50 mhof=371) EGFR (BEAKER) (test 57 mL/min/1.73 sq m ESTIMATED GFR IS NOT mznr=2054) ACCURATE CREATININE CLEARANCE IN PREDICTING GLOMERULAR FILTRATION RATE. ESTIMATED GFR IS NOT APPLICABLE FOR DIALYSIS PATIENTS. LACTIC ACID, VENOUS, WHOLE [id number] 18:53:00 Test Item Value Reference Range Comments LACTATE BLOOD VENOUS (2) (BEAKER) (test 0.8 mmol/L 0.5-2.2 ezef=0775) Effective 11/28/2015: Units/Reference Range ChangeNew: 0.5-2.2 mmol/L Previous: 5 -18 mg/dLCBC W/PLT COUNT & AUTO [id number] 18:36:00 Test Item Value Reference Range Comments WHITE BLOOD CELL COUNT (BEAKER) (test iits=370) 3.5 K/ L 4.0-10.0 RED BLOOD CELL COUNT (BEAKER) (test jfei=486) 2.95 M/ L 4.00-5.00 HEMOGLOBIN (BEAKER) (test okqj=237) 9.7 GM/DL 12.0-15.0 HEMATOCRIT (BEAKER) (test etyh=139) 28.5 % 36.0-45.0 MEAN CORPUSCULAR VOLUME (BEAKER) (test exth=801) 96.6 fL 82.0-99.0 MEAN CORPUSCULAR HEMOGLOBIN (BEAKER) (test 32.9 pg 27.0-33.0 ivaf=154) MEAN CORPUSCULAR HEMOGLOBIN CONC (BEAKER) (test 34.0 GM/DL 32.0-36.0 wafp=753) RED CELL DISTRIBUTION WIDTH (BEAKER) (test 18.5 % 10.3-14.2 gcwx=593) PLATELET COUNT (BEAKER) (test btzn=801) 187 K/CU MM 150-430 MEAN PLATELET VOLUME (BEAKER) (test sfzr=131) 7.8 fL 6.5-10.5 NEUTROPHILS RELATIVE PERCENT (BEAKER) (test 84 % evde=653) LYMPHOCYTES RELATIVE PERCENT (BEAKER) (test 10 % ahqz=027) MONOCYTES RELATIVE PERCENT (BEAKER) (test 5 % btwy=331) EOSINOPHILS RELATIVE PERCENT (BEAKER) (test 0 % vfcg=170) BASOPHILS RELATIVE PERCENT (BEAKER) (test 0 % piql=467) NEUTROPHILS ABSOLUTE COUNT (BEAKER) (test 2.90 K/ L 1.80-8.00 mbxr=337) LYMPHOCYTES ABSOLUTE COUNT (BEAKER) (test 0.40 K/ L 1.48-4.50 huhq=966) MONOCYTES ABSOLUTE COUNT (BEAKER) (test 0.20 K/ L 0.00-1.30 pjtp=451) EOSINOPHILS ABSOLUTE COUNT (BEAKER) (test 0.00 K/ L 0.00-0.50 fywk=737) BASOPHILS ABSOLUTE COUNT (BEAKER) (test 0.00 K/ L 0.00-0.20 hneq=499) BLOOD [id number] 13:00:00 Test Item Value Reference Range Comments CULTURE (BEAKER) (test fkin=0551) No growth in 5 days BLOOD [id number] 10:00:00 Test Item Value Reference Range Comments CULTURE (BEAKER) (test ghaq=9726) No growth in 5 days VANCOMYCIN LEVEL, [id number] 14:26:00 Test Item Value Reference Range Comments VANCOMYCIN TROUGH (BEAKER) (test gxvf=920) 9.8 ug/mL 10.0-20.0 VANCOMYCIN DOSING BY RX PER DR. Kowalski PRIOR TO 4th DOSE ON 10/22/17 AT13: 30URINE [id number] 08:16:00 Test Item Value Reference Range Comments CULTURE (BEAKER) (test pmyl=5611) No growth (MANUAL DIFFERENTIAL)2017-10-22 07:06:00 Test Item Value Reference Range Comments NEUTROPHILS - REL (DIFF) (BEAKER) (test jnky=7242) 69 % LYMPHOCYTES - REL (DIFF) (BEAKER) (test kxas=7427) 27 % MONOCYTES - REL (DIFF) (BEAKER) (test geor=5498) 4 % NEUTROPHILS - ABS (DIFF) (BEAKER) (test mzqj=0835) 1.52 K/ L 1.80-8.00 LYMPHOCYTES - ABS (DIFF) (BEAKER) (test vqwv=2637) 0.59 K/ L 1.48-4.50 MONOCYTES - ABS (DIFF) (BEAKER) (test nuft=9434) 0.09 K/ L 0.00-1.30 TOTAL COUNTED (BEAKER) (test qspa=7975) 100 WBC MORPHOLOGY (BEAKER) (test ooop=583) Normal PLT MORPHOLOGY (BEAKER) (test iyrw=157) Normal RBC MORPHOLOGY (BEAKER) (test quda=914) Normal COMPREHENSIVE METABOLIC [id number] 06:39:00 Test Item Value Reference Range Comments TOTAL PROTEIN (BEAKER) 6.8 gm/dL 6.0-8.5 (test hsgt=642) ALBUMIN (BEAKER) (test 3.7 g/dL 3.5-5.0 kqnf=8511) ALKALINE PHOSPHATASE 111 U/L 30-115 (BEAKER) (test quxf=014) BILIRUBIN TOTAL (BEAKER) 0.3 mg/dL 0.1-1.2 (test bhdn=981) SODIUM (BEAKER) (test 138 meq/L 135-148 gklp=143) POTASSIUM (BEAKER) (test 3.9 meq/L 3.6-5.5 fhfn=781) CHLORIDE (BEAKER) (test 102 meq/L 98-106 xdlg=217) CO2 (BEAKER) (test 28 meq/L 20-29 skkb=947) BLOOD UREA NITROGEN 9 mg/dL 10-26 (BEAKER) (test ydew=605) CREATININE (BEAKER) (test 0.70 mg/dL 0.50-1.20 ebnd=357) GLUCOSE RANDOM (BEAKER) 85 mg/dL 70-110 (test dvvf=351) CALCIUM (BEAKER) (test 9.1 mg/dL 8.5-10.5 xgad=243) AST (SGOT) (BEAKER) (test 141 U/L 5-40 vqbc=399) ALT (SGPT) (BEAKER) (test 276 U/L 5-50 zkhj=656) EGFR (BEAKER) (test 88 mL/min/1.73 sq m ESTIMATED GFR IS NOT jcgz=1425) ACCURATE CREATININE CLEARANCE IN PREDICTING GLOMERULAR FILTRATION RATE. ESTIMATED GFR IS NOT APPLICABLE FOR DIALYSIS PATIENTS. CBC W/PLT COUNT & AUTO [id number] 06:22:00 Test Item Value Reference Range Comments WHITE BLOOD CELL COUNT (BEAKER) (test rdvv=976) 2.2 K/ L 4.0-10.0 RED BLOOD CELL COUNT (BEAKER) (test gdoo=366) 3.12 M/ L 4.00-5.00 HEMOGLOBIN (BEAKER) (test bsao=758) 9.7 GM/DL 12.0-15.0 HEMATOCRIT (BEAKER) (test ztxq=325) 28.5 % 36.0-45.0 MEAN CORPUSCULAR VOLUME (BEAKER) (test wxjk=783) 91.2 fL 82.0-99.0 MEAN CORPUSCULAR HEMOGLOBIN (BEAKER) (test 31.2 pg 27.0-33.0 aqqt=029) MEAN CORPUSCULAR HEMOGLOBIN CONC (BEAKER) (test 34.2 GM/DL 32.0-36.0 gboh=066) RED CELL DISTRIBUTION WIDTH (BEAKER) (test 12.4 % 10.3-14.2 vxla=041) PLATELET COUNT (BEAKER) (test wcro=615) 173 K/CU MM 150-430 MEAN PLATELET VOLUME (BEAKER) (test xoqd=472) 7.6 fL 6.5-10.5 NUCLEATED RED BLOOD CELLS (BEAKER) (test 0 /100 WBC 0-0 ffvm=163) HEPATIC FUNCTION [id number] 16:17:00 Test Item Value Reference Range Comments TOTAL PROTEIN (BEAKER) (test wbjk=633) 6.3 gm/dL 6.0-8.5 ALBUMIN (BEAKER) (test lawk=6690) 3.5 g/dL 3.5-5.0 BILIRUBIN TOTAL (BEAKER) (test cxgy=096) 0.3 mg/dL 0.1-1.2 BILIRUBIN DIRECT (BEAKER) (test jzup=132) 0.2 mg/dL 0.0-0.4 ALKALINE PHOSPHATASE (BEAKER) (test yvsp=508) 106 U/L 30-115 AST (SGOT) (BEAKER) (test caji=593) 208 U/L 5-40 ALT (SGPT) (BEAKER) (test kxrl=010) 286 U/L 5-50 CBC W/PLT COUNT & AUTO [id number] 06:13:00 Test Item Value Reference Range Comments WHITE BLOOD CELL COUNT (BEAKER) (test sfmt=301) 2.9 K/ L 4.0-10.0 RED BLOOD CELL COUNT (BEAKER) (test siuj=107) 3.10 M/ L 4.00-5.00 HEMOGLOBIN (BEAKER) (test uapf=155) 9.7 GM/DL 12.0-15.0 HEMATOCRIT (BEAKER) (test lpen=518) 28.3 % 36.0-45.0 MEAN CORPUSCULAR VOLUME (BEAKER) (test fhxw=687) 91.2 fL 82.0-99.0 MEAN CORPUSCULAR HEMOGLOBIN (BEAKER) (test 31.2 pg 27.0-33.0 xbgq=911) MEAN CORPUSCULAR HEMOGLOBIN CONC (BEAKER) (test 34.3 GM/DL 32.0-36.0 sxot=357) RED CELL DISTRIBUTION WIDTH (BEAKER) (test 12.3 % 10.3-14.2 kian=963) PLATELET COUNT (BEAKER) (test htti=720) 178 K/CU MM 150-430 MEAN PLATELET VOLUME (BEAKER) (test ntym=669) 7.5 fL 6.5-10.5 NUCLEATED RED BLOOD CELLS (BEAKER) (test 0 /100 WBC 0-0 mygp=942) (MANUAL DIFFERENTIAL)2017-10-21 06:13:00 Test Item Value Reference Range Comments NEUTROPHILS - REL (DIFF) (BEAKER) (test sosx=5883) 76 % LYMPHOCYTES - REL (DIFF) (BEAKER) (test lsrb=8937) 16 % MONOCYTES - REL (DIFF) (BEAKER) (test qbcz=4491) 5 % BANDS - REL (DIFF) (BEAKER) (test cwod=5390) 3 % 0-10 NEUTROPHILS - ABS (DIFF) (BEAKER) (test hldy=2287) 2.20 K/ L 1.80-8.00 LYMPHOCYTES - ABS (DIFF) (BEAKER) (test kibx=4379) 0.46 K/ L 1.48-4.50 MONOCYTES - ABS (DIFF) (BEAKER) (test pvzf=8253) 0.15 K/ L 0.00-1.30 BANDS-ABS (DIFF) (BEAKER) (test vhhb=0485) 0.1 K/ L 0.0-0.8 TOTAL COUNTED (BEAKER) (test axce=3188) 100 BANDS + SEGMENTED NEUTROPHILS (BEAKER) (test 2.29 eejo=4220) WBC MORPHOLOGY (BEAKER) (test wwlv=700) Normal PLT MORPHOLOGY (BEAKER) (test tofa=885) Normal RBC MORPHOLOGY (BEAKER) (test vzvu=559) Normal BASIC METABOLIC [id number] 05:25:00 Test Item Value Reference Range Comments SODIUM (BEAKER) (test 139 meq/L 135-148 kfsp=263) POTASSIUM (BEAKER) (test 3.7 meq/L 3.6-5.5 wpbw=236) CHLORIDE (BEAKER) (test 104 meq/L 98-106 csse=755) CO2 (BEAKER) (test 27 meq/L 20-29 dbun=345) BLOOD UREA NITROGEN 12 mg/dL 10-26 (BEAKER) (test gvyk=259) CREATININE (BEAKER) (test 0.80 mg/dL 0.50-1.20 qmlt=771) GLUCOSE RANDOM (BEAKER) 77 mg/dL 70-110 (test tdik=796) CALCIUM (BEAKER) (test 8.5 mg/dL 8.5-10.5 vgcl=193) EGFR (BEAKER) (test 75 mL/min/1.73 sq m ESTIMATED GFR IS NOT yknp=0245) ACCURATE CREATININE CLEARANCE IN PREDICTING GLOMERULAR FILTRATION RATE. ESTIMATED GFR IS NOT APPLICABLE FOR DIALYSIS PATIENTS. CT, BRAIN, WITHOUT [id number] 17:12:00Reason for exam:->headacheIs the patient ?->NoWhat is [...] hydrocephalus. Acute sphenoid sinusitis. Signed: Hailey Lucas [facility]AREeport Verified Date/Time: 10/20/2017 17:12:46 Reading Location: [facility] Radiology Reading Room Electronically signed by: HAILEY LUCAS M.D. on 05:12 PMCT, [id number] 09:17:00Reason for exam:->fever, constipation, abd discomfortIs the [...] MDReport Verified Date/Time: 10/20/2017 09:17:32 Reading Location: [facility] [id number] Ortho Consult Reading Room RAD, CHEST, 2 [id number] 08:54:00Reason for exam:->FEVERFINAL REPORT Chest two views [...] [facility] Reading Room HEPATIC FUNCTION [id number] 08:27:00 Test Item Value Reference Range Comments TOTAL PROTEIN (BEAKER) (test khyk=760) 8.1 gm/dL 6.0-8.5 ALBUMIN (BEAKER) (test hrzw=0386) 4.4 g/dL 3.5-5.0 BILIRUBIN TOTAL (BEAKER) (test ovya=466) 0.4 mg/dL 0.1-1.2 BILIRUBIN DIRECT (BEAKER) (test jlps=497) 0.2 mg/dL 0.0-0.4 ALKALINE PHOSPHATASE (BEAKER) (test qjmv=942) 128 U/L 30-115 AST (SGOT) (BEAKER) (test whzq=520) 88 U/L 5-40 ALT (SGPT) (BEAKER) (test kczv=474) 281 U/L 5-50 [id number] 08:24:00 Test Item Value Reference Range Comments LIPASE (BEAKER) (test pnmu=899) 42 U/L 6-51 BASIC METABOLIC [id number] 08:21:00 Test Item Value Reference Range Comments SODIUM (BEAKER) (test 133 meq/L 135-148 wrsn=559) POTASSIUM (BEAKER) (test 4.1 meq/L 3.6-5.5 pijj=295) CHLORIDE (BEAKER) (test 97 meq/L 98-106 ewtq=002) CO2 (BEAKER) (test 26 meq/L 20-29 coex=289) BLOOD UREA NITROGEN 17 mg/dL 10-26 (BEAKER) (test pbps=315) CREATININE (BEAKER) (test 1.00 mg/dL 0.50-1.20 jqbv=529) GLUCOSE RANDOM (BEAKER) 99 mg/dL 70-110 (test tuap=446) CALCIUM (BEAKER) (test 9.3 mg/dL 8.5-10.5 ydbx=123) EGFR (BEAKER) (test 58 mL/min/1.73 sq m ESTIMATED GFR IS NOT pwlc=0697) ACCURATE CREATININE CLEARANCE IN PREDICTING GLOMERULAR FILTRATION RATE. ESTIMATED GFR IS NOT APPLICABLE FOR DIALYSIS PATIENTS. LACTIC ACID, VENOUS, WHOLE [id number] 08:15:00 Test Item Value Reference Range Comments LACTATE BLOOD VENOUS (2) (BEAKER) (test 1.1 mmol/L 0.5-2.2 sutj=6515) Effective 11/28/2015: Units/Reference Range ChangeNew: 0.5-2.2 mmol/L Previous: 5 -18 mg/dLCBC W/PLT COUNT & AUTO [id number] 08:11:00 Test Item Value Reference Range Comments WHITE BLOOD CELL COUNT (BEAKER) (test aqll=719) 4.7 K/ L 4.0-10.0 RED BLOOD CELL COUNT (BEAKER) (test gtay=751) 3.71 M/ L 4.00-5.00 HEMOGLOBIN (BEAKER) (test ldjt=095) 11.5 GM/DL 12.0-15.0 HEMATOCRIT (BEAKER) (test lhif=248) 33.7 % 36.0-45.0 MEAN CORPUSCULAR VOLUME (BEAKER) (test smvm=671) 91.0 fL 82.0-99.0 MEAN CORPUSCULAR HEMOGLOBIN (BEAKER) (test 31.1 pg 27.0-33.0 eqvv=405) MEAN CORPUSCULAR HEMOGLOBIN CONC (BEAKER) (test 34.2 GM/DL 32.0-36.0 exdv=021) RED CELL DISTRIBUTION WIDTH (BEAKER) (test 12.3 % 10.3-14.2 sgxm=321) PLATELET COUNT (BEAKER) (test gkej=598) 245 K/CU MM 150-430 MEAN PLATELET VOLUME (BEAKER) (test nnax=150) 7.7 fL 6.5-10.5 NUCLEATED RED BLOOD CELLS (BEAKER) (test 0 /100 WBC 0-0 ekwt=986) NEUTROPHILS RELATIVE PERCENT (BEAKER) (test 93 % peex=262) LYMPHOCYTES RELATIVE PERCENT (BEAKER) (test 2 % lexb=695) MONOCYTES RELATIVE PERCENT (BEAKER) (test 5 % sdsp=006) EOSINOPHILS RELATIVE PERCENT (BEAKER) (test 0 % tnld=691) BASOPHILS RELATIVE PERCENT (BEAKER) (test 0 % btkr=604) NEUTROPHILS ABSOLUTE COUNT (BEAKER) (test 4.40 K/ L 1.80-8.00 gjcc=245) LYMPHOCYTES ABSOLUTE COUNT (BEAKER) (test 0.10 K/ L 1.48-4.50 etwb=236) MONOCYTES ABSOLUTE COUNT (BEAKER) (test 0.20 K/ L 0.00-1.30 ajrq=936) EOSINOPHILS ABSOLUTE COUNT (BEAKER) (test 0.00 K/ L 0.00-0.50 wkpy=657) BASOPHILS ABSOLUTE COUNT (BEAKER) (test 0.00 K/ L 0.00-0.20 brsa=609) RAPID INFLUENZA A&B [id number] 07:58:00 Test Item Value Reference Range Comments RAPID INFLUENZA A AG (BEAKER) (test Negative Negative, Inconclusive wtua=3928) RAPID INFLUENZA B AG (BEAKER) (test Negative Negative, Inconclusive otgj=3428) URINALYSIS W/ [id number] 07:55:00 Test Item Value Reference Range Comments COLOR (BEAKER) (test udmm=137) Yellow CLARITY (BEAKER) (test micy=256) Clear SPECIFIC GRAVITY UA (BEAKER) (test qcmy=158) 1.015 1.001-1.035 PH UA (BEAKER) (test usuj=277) 6.0 5.0-8.0 PROTEIN UA (BEAKER) (test aley=938) Negative Negative GLUCOSE UA (BEAKER) (test hrhm=653) Negative Negative KETONES UA (BEAKER) (test haqr=608) Negative Negative BILIRUBIN UA (BEAKER) (test uloi=864) Negative Negative BLOOD UA (BEAKER) (test oakl=244) Trace Negative NITRITE UA (BEAKER) (test eydw=739) Negative Negative LEUKOCYTE ESTERASE UA (BEAKER) (test caij=898) Negative Negative UROBILINOGEN UA (BEAKER) (test hywd=324) 0.2 mg/dL 0.2-1.0 BACTERIA (BEAKER) (test poxh=460) Few MUCUS (BEAKER) (test kruk=0449) Few RBC UA-MANUAL (BEAKER) (test xvdl=4781) 5-10 /HPF WBC UA-MANUAL (BEAKER) (test womd=7915) 5-10 /HPF SQUAMOUS EPITHELIAL MANUAL (BEAKER) (test <5 /HPF pfzc=7590) SOURCE(BEAKER) (test vckt=3194)
[2018-08-07 23:57] LABS: Arterial Blood Carboxyhemoglob 1.4 % (0-1.5); Blood Gas Oxyhemoglobin 96.4 % (94-97); Blood O2 Saturation 98.9 % (92-98.5)
[2018-08-08 00:22] LABS: Absolute Lymphocytes (CBC) 1.5 K/uL (0.7-4.9); Absolute Monocytes 0.5 K/uL (0.1-1.3); Absolute Neutrophil 8.6 K/uL (1.8-8.0); Basophils % 0.5 % (0-1.3); Hematocrit 47.1 % (36.0-45.0); Lymphocytes % 13.8 % (15.3-44.8); MPV 9.6 fL (7.6-11.3); Monocytes % 4.7 % (3.3-12.3); RBC Red Blood Cell Count 4.59 M/uL (3.86-4.86)
[2018-08-08] MEDS ORDERED: DIPHENHYDRAMINE 50 MG/ML VIAL ONE (00:30)
[2018-08-08] MEDS ORDERED: LORazepam 2 MG/ML VIAL ONE (00:30)
[2018-08-08 00:36] LABS: Phosphorus 2.5 mg/dL (2.5-4.9); Potassium 4.8 mmol/L (3.5-5.1)
--- NOTE | 2018-08-08 01:39 | ER ---
Nurse's Notes [facility] Name: Renate Gold Age: 53 yrs Sex: Female : 1965 Arrival Date: 08/07/2018 Time: 23:19 Bed 16 Private MD: Diagnosis: Hypo-osmolality and hyponatremia;Dyspnea, unspecified Presentation: 08/07 23:23 Presenting complaint: EMS states: Pt c/o shortness of breath that has been going on for tl2 3 months, N/V and chills. Pt is currently on hospice but states she needs to come off hospice to get better care. Pt is on 3 L O2 at home. Transition of care: patient was not received from another setting of care. Onset of symptoms was August 07, 2018. Risk Assessment: Do you want to hurt yourself or someone else? Patient reports no desire to harm self or others. Initial Sepsis Screen: Does the patient meet any 2 criteria? No. Patient's initial sepsis screen is negative. Does the patient have a suspected source of infection? No. Patient's initial sepsis screen is negative. Care prior to arrival: None. 23:23 Method Of Arrival: EMS: [facility] tl2 23:23 Acuity: RICH 3 tl2 Triage Assessment: 23:25 General: Appears in no apparent distress. slender, Behavior is calm, drowsy. General: tl2 Behavior is flat. General: Reports chills for. Pain: Complains of pain in "lung pain". Neuro: Level of Consciousness is awake, lethargic, Oriented to person, place. Cardiovascular: Denies chest pain. Respiratory: Reports shortness of breath Airway is patent Respiratory effort is even, unlabored, Respiratory pattern is regular, symmetrical. GI: Reports nausea, vomiting. : No signs and/or symptoms were reported regarding the genitourinary system. Derm: Skin is pale, Skin temperature is warm. Historical: - Allergies: 23:25 Ciprofloxacin; tl2 23:25 Compazine; tl2 23:25 Ofloxacin; tl2 23:25 Prochlorperazine Maleate; tl2 23:25 Sulfa (Sulfonamide Antibiotics); tl2 - Home Meds: 23:25 docusate sodium 100 mg Oral cap 1 cap 2 times per day [Active]; Morphine Oral [Active]; tl2 Phenergan Oral [Active]; sacubitril-valsartan 24-26 mg Oral 1 tab 2 times per day [Active]; sevelamer carbonate 800 mg Oral tab 1 tab 3 times per day [Active]; - PMHx: 23:25 ADD/ADHD; breast cancer-metastasized; Cancer to breast, lungs, bone and spine; CHF; tl2 Dialysis- 5x per week; 7 days a week; COPD; ESRD; Pneumonia; Renal Disease; - Immunization history:: Adult Immunizations up to date. - Social history:: Smoking status: Patient/guardian denies using tobacco. - Ebola Screening: : No symptoms or risks identified at this time. Screenin:29 Abuse screen: Denies threats or abuse. Nutritional screening: No deficits noted. tl2 Tuberculosis screening: No symptoms or risk factors identified. Fall Risk Ambulatory Aid- None/Bed Rest/Nurse Assist (0 pts). Assessment: 23:30 General: Appears in no apparent distress. uncomfortable, Behavior is calm, cooperative, jb4 appropriate for age. Pain: Complains of pain in buttocks and chest Pain does not radiate. Pain currently is 8 out of 10 on a pain scale. Neuro: Level of Consciousness is awake, alert, obeys commands, Oriented to person, place, time, situation. Cardiovascular: Heart tones S1 S2 present Patient's skin is warm and dry. Respiratory: Airway is patent Respiratory effort is even, labored, Respiratory pattern is regular, symmetrical, Breath sounds are clear bilaterally. GI: Abdomen is flat, non-distended, Reports nausea. : No signs and/or symptoms were reported regarding the genitourinary system. EENT: Derm: Skin is dry, Skin is pale, Skin temperature is cool Reports Sores to her right fingers, buttocks, and right elbow. Musculoskeletal: Range of motion: intact in all extremities. 08/08 00:30 Reassessment: Patient appears in no apparent distress at this time. Patient and/or jb4 family updated on plan of care and expected duration. Pain level reassessed. Patient is alert, oriented x 3, equal unlabored respirations, skin warm/dry/pink. 01:24 Reassessment: Patient appears in no apparent distress at this time. Patient and/or jb4 family updated on plan of care and expected duration. Pain level reassessed. Patient is alert, oriented x 3, equal unlabored respirations, skin warm/dry/pink. Pt's mother is at the bedside. 02:15 Reassessment: Patient appears in no apparent distress at this time. Patient and/or jb4 family updated on plan of care and expected duration. Pain level reassessed. Pt is resting in bed with eyes closed, with guest at the bedside. Respiratory: Airway is patent Respiratory effort is even, unlabored, Respiratory pattern is regular, symmetrical. 03:30 Reassessment: Patient appears in no apparent distress at this time. No changes from jb4 previously documented assessment. Patient and/or family updated on plan of care and expected duration. Pain level reassessed. 04:33 Reassessment: Patient appears in no apparent distress at this time. No changes from jb4 previously documented assessment. Patient and/or family updated on plan of care and expected duration. Pain level reassessed. Vital Signs: 08/07 23:25 BP 132 / 109; Pulse 94; Resp 18; Temp 97.6; Pulse Ox 99% on R/A; Weight 45.36 kg; tl2 Height 5 ft. 6 in. (167.64 cm); 08/08 00:15 BP 132 / 108; Pulse 94; Resp 20; Pulse Ox 100% on 3 lpm NC; jb4 01:15 BP 130 / 117; Pulse 97; Resp 18; Pulse Ox 100% on 3 lpm NC; jb4 02:15 BP 123 / 104; Pulse 86; Resp 16; Pulse Ox 100% on 3 lpm NC; jb4 03:30 BP 119 / 105; Pulse 88; Resp 16; Pulse Ox 100% on 3 lpm NC; jb4 04:30 BP 125 / 109; Pulse 91; Resp 16; Pulse Ox 100% on 3 lpm NC; jb4 08/07 23:25 Body Mass Index 16.14 (45.36 kg, 167.64 cm) tl2 ED Course: 08/07 23:19 Patient arrived in ED. al2 23:24 Triage completed. tl2 23:25 Arm band placed on right wrist. tl2 23:29 Patient has correct armband on for positive identification. Bed in low position. Call tl2 light in reach. Side rails up X2. 23:33 [facility]-C [facility]. snw 23:33 Skyler Junior MD is Attending Physician. snw 08/08 00:14 Satya Hutson, RN is Primary Nurse. jb4 00:30 Accessed Port-a-Cath. jb4 00:30 Initial lab(s) drawn, by me, sent to lab. First set of blood cultures drawn by me, jb4 Second set of blood cultures drawn by me. 01:31 Chest Single View XRAY In Process Unspecified. EDMS 01:31 X-ray completed. Portable x-ray completed in exam room. Patient tolerated procedure sg4 well. 01:37 Amy Constantino MD is Hospitalizing Provider. snw 04:45 No provider procedures requiring assistance completed. jb4 04:45 Patient admitted, IV remains in place. jb4 Administered Medications: 00:28 Drug: Benadryl 25 mg Route: IVP; Site: Port-a-cath; jb4 01:33 Follow up: Response: No adverse reaction; Nausea is decreased jb4 00:29 Drug: Ativan 1 mg Route: IVP; Site: Port-a-cath; jb4 01:32 Follow up: Response: No adverse reaction; Anxiety decreased jb4 01:49 Drug: morphine 2 mg Route: IVP; Site: Port-a-cath; jb4 02:29 Follow up: Response: No adverse reaction; Pain is decreased jb4 Outcome: 01:38 Decision to Hospitalize by Provider. snw 04:45 Admitted to Med/surg accompanied by tech, family with patient, via stretcher, room 204, jb4 with oxygen, with chart, Report called to DENVER Salas 04:45 Condition: stable 04:45 Discharge instructions given to patient, family, Instructed on the need for admit, Demonstrated understanding of instructions. 05:38 Patient left the ED. jb4 Signatures: Dispatcher [employer] EDFL Christina Bocanegra, RECEIVING TELLER-C RECEIVING TELLER-Csnw Bruna Redman RN RN tl2 Satya Hutson, RN RN jb4 Josefina Ridley Susana sg4 Corrections: (The following items were deleted from the chart) 05:37 05:35 No provider procedures requiring assistance completed. jb4 jb4 05:37 05:35 Accessed jb4 jb4
--- NOTE | 2018-08-08 01:39 | EDPHYS ---
Physician Documentation [facility] Name: Renate Gold Age: 53 yrs Sex: Female : 1965 Arrival Date: 08/07/2018 Time: 23:19 Bed 16 Private MD: ED Physician Skyler Junior HPI: 08/07 23:38 This 53 yrs old Female presents to ER via EMS with complaints of Shortness Of snw Breath. 23:38 The patient has shortness of breath at rest. Onset: The symptoms/episode began/occurred snw gradually, and became persistent. Duration: The symptoms are continuous. The patient's shortness of breath has no apparent modifying factors. Associated signs and symptoms: Pertinent positives: nausea, numbness in extremities. Severity of symptoms: At their worst the symptoms were severe. The patient has experienced similar episodes in the past, multiple times, chronically, and the symptoms today are exactly the same. The patient has been recently seen by a physician: The patient has been recently been admitted at [facility], was discharged last week. Pt has Stage 4 breast ca. Pt was on hospice but states she wants to be off hospice to get better. Historical: - Allergies: 23:25 Ciprofloxacin; tl2 23:25 Compazine; tl2 23:25 Ofloxacin; tl2 23:25 Prochlorperazine Maleate; tl2 23:25 Sulfa (Sulfonamide Antibiotics); tl2 - Home Meds: 23:25 docusate sodium 100 mg Oral cap 1 cap 2 times per day [Active]; Morphine Oral [Active]; tl2 Phenergan Oral [Active]; sacubitril-valsartan 24-26 mg Oral 1 tab 2 times per day [Active]; sevelamer carbonate 800 mg Oral tab 1 tab 3 times per day [Active]; - PMHx: 23:25 ADD/ADHD; breast cancer-metastasized; Cancer to breast, lungs, bone and spine; CHF; tl2 Dialysis- 5x per week; 7 days a week; COPD; ESRD; Pneumonia; Renal Disease; - Immunization history:: Adult Immunizations up to date. - Social history:: Smoking status: Patient/guardian denies using tobacco. - Ebola Screening: : No symptoms or risks identified at this time. ROS: 23:38 Eyes: Negative for injury, pain, redness, and discharge, ENT: Negative for injury, snw pain, and discharge, Neck: Negative for injury, pain, and swelling, Cardiovascular: Negative for chest pain, palpitations, and edema. 23:38 Back: Negative for injury and pain, : Negative for injury, bleeding, discharge, and swelling, MS/Extremity: Negative for injury and deformity, Skin: Negative for injury, rash, and discoloration, Neuro: Negative for headache, weakness, numbness, tingling, and seizure, Psych: Negative for depression, anxiety, suicide ideation, homicidal ideation, and hallucinations. 23:38 Constitutional: Positive for body aches, malaise, poor PO intake. 23:38 Respiratory: Positive for shortness of breath, at rest. 23:38 Abdomen/GI: Positive for nausea. Exam: 23:38 Head/Face: Normocephalic, atraumatic. Eyes: Pupils equal round and reactive to light, snw extra-ocular motions intact. Lids and lashes normal. Conjunctiva and sclera are non-icteric and not injected. Cornea within normal limits. Periorbital areas with no swelling, redness, or edema. ENT: Nares patent. No nasal discharge, no septal abnormalities noted. Tympanic membranes are normal and external auditory canals are clear. Oropharynx with no redness, swelling, or masses, exudates, or evidence of obstruction, uvula midline. Mucous membranes moist. Neck: Trachea midline, no thyromegaly or masses palpated, and no cervical lymphadenopathy. Supple, full range of motion without nuchal rigidity, or vertebral point tenderness. No Meningismus. Chest/axilla: Normal chest wall appearance and motion. Nontender with no deformity. No lesions are appreciated. Cardiovascular: Regular rate and rhythm with a normal S1 and S2. No gallops, murmurs, or rubs. Normal PMI, no JVD. No pulse deficits. Abdomen/GI: Soft, non-tender, with normal bowel sounds. No distension or tympany. No guarding or rebound. No evidence of tenderness throughout. Back: No spinal tenderness. No costovertebral tenderness. Full range of motion. 23:38 Constitutional: The patient appears anxious, emaciated, frail, listless, pale. 23:38 Respiratory: mild respiratory distress is noted, Respirations: labored breathing, prolonged exhalation, that is moderate, shallow respirations, that is mild. 23:38 Musculoskeletal/extremity: Extremities: frail, clubbed, cool extremities, ROM: no acute changes, Circulation is intact in all extremities. 23:38 Skin: Appearance: arriaga in color. 23:38 Neuro: Orientation: to person, place \T\ time. Mentation: slow to respond. Vital Signs: 23:25 BP 132 / 109; Pulse 94; Resp 18; Temp 97.6; Pulse Ox 99% on R/A; Weight 45.36 kg; tl2 Height 5 ft. 6 in. (167.64 cm); 08/08 00:15 BP 132 / 108; Pulse 94; Resp 20; Pulse Ox 100% on 3 lpm NC; jb4 01:15 BP 130 / 117; Pulse 97; Resp 18; Pulse Ox 100% on 3 lpm NC; jb4 02:15 BP 123 / 104; Pulse 86; Resp 16; Pulse Ox 100% on 3 lpm NC; jb4 03:30 BP 119 / 105; Pulse 88; Resp 16; Pulse Ox 100% on 3 lpm NC; jb4 04:30 BP 125 / 109; Pulse 91; Resp 16; Pulse Ox 100% on 3 lpm NC; jb4 08/07 23:25 Body Mass Index 16.14 (45.36 kg, 167.64 cm) tl2 MDM: 08/07 23:38 Patient medically screened. snw 08/08 01:14 Data reviewed: vital signs, nurses notes. Data interpreted: Pulse oximetry: on room air snw is 99 %. Interpretation: normal. Counseling: I had a detailed discussion with the patient and/or guardian regarding: the historical points, exam findings, and any diagnostic results supporting the discharge/admit diagnosis, lab results, radiology results, the need for further work-up and treatment in the hospital. Physician consultation: Amy Constantino MD was called at 01:15, was contacted at 01:15, regarding admission, to the medical/surgical unit. 08/07 23:38 Order name: ABG; Complete Time: 00:23 snw 08/07 23:38 Order name: CBC with Diff; Complete Time: 00:52 snw 08/07 23:38 Order name: Chem 7; Complete Time: 00:52 snw 08/07 23:38 Order name: Phosphorus; Complete Time: 00:52 snw 08/07 23:38 Order name: Magnesium; Complete Time: 00:52 w 08/07 23:38 Order name: Blood Culture* snw 08/08 00:53 Order name: Chest Single View XRAY snw Administered Medications: 00:28 Drug: Benadryl 25 mg Route: IVP; Site: Port-a-cath; jb4 01:33 Follow up: Response: No adverse reaction; Nausea is decreased jb4 00:29 Drug: Ativan 1 mg Route: IVP; Site: Port-a-cath; jb4 01:32 Follow up: Response: No adverse reaction; Anxiety decreased jb4 01:49 Drug: morphine 2 mg Route: IVP; Site: Port-a-cath; jb4 02:29 Follow up: Response: No adverse reaction; Pain is decreased jb4 Disposition: 06:07 Co-signature as Attending Physician, Skyler Junior MD. rn Disposition: 08/08/18 01:38 Hospitalization ordered by Amy Constantino for Observation. Preliminary diagnosis are Hypo-osmolality and hyponatremia, Dyspnea, unspecified. - Bed requested for Telemetry/MedSurg (observation). - Status is Observation. jb4 - Condition is Guarded. - Problem is an ongoing problem. - Symptoms have worsened. UTI on Admission? No Signatures: Dispatcher [employer] EDTg Beckett RN Christina Ptunam, SUPERVISOR POLICY CHANGE CLERKS-C SUPERVISOR POLICY CHANGE CLERKS-Csnw Skyler Junior MD MD rn Knox, Taylor, RN RN tl2 Satya Hutson RN RN jb4 Corrections: (The following items were deleted from the chart) 04:19 01:38 Hospitalization Ordered by Amy Constantino MD for Observation. Preliminary kl diagnosis is Hypo-osmolality and hyponatremia; Dyspnea, unspecified. Bed requested for Telemetry/MedSurg (observation). Status is Observation. Condition is Guarded. Problem is an ongoing problem. Symptoms have worsened. UTI on Admission? No. snw 05:38 04:19 08/08/2018 01:38 Hospitalization Ordered by Amy Constantino MD for Observation. jb4 Preliminary diagnosis is Hypo-osmolality and hyponatremia; Dyspnea, unspecified. Bed requested for Telemetry/MedSurg (observation). Status is Observation. Condition is Guarded. Problem is an ongoing problem. Symptoms have worsened. UTI on Admission? No. kl
[2018-08-08] MEDS ORDERED: MORPHINE 4 MG/ML SYR ONE (01:50)
--- NOTE | 2018-08-08 03:02 | P.HP ---
Certification for Inpatient Patient admitted to: Observation With expected LOS: <2 Midnights Practitioner: I am a practitioner with admitting privileges, knowledge of patient current condition, hospital course, and medical plan of care. Services: Services provided to patient in accordance with Admission requirements found in Title 42 Section 412.3 of the Code of Federal Regulations Patient History Date of Service: 08/08/18 Reason for admission: dyspnea History of Present Illness: Ms Gold is a 53 years old woman with history of metastatic breast cancer, ESRD on HD, who came to ED complaining of progressive SOB. The patient is on daily HD. Thre is no history of fever or chills. No more cough than usual. She is on hospice program, but she would still like to receive treatment, and decided to come to ED for evaluation. Lab work shows normal WBC count. Hyponatremia ( chronic), CXR shows mild CHF, similar to previous one. Allergies ciprofloxacin HCl [From Cipro] Allergy (Unknown, Verified 04/02/18 13:39) Unknown Sulfa (Sulfonamide Antibiotics) Allergy (Unknown, Verified 04/02/18 13:39) Unknown ofloxacin Adverse Reaction (Verified 08/01/18 03:11) Shortness of breath Home Medications: Carvedilol 3.125 mg PO BEDTIME 04/03/18 ALPRAZolam [Xanax*] 0.25 mg PO BID PRN 08/01/18 Sennosides [Senna] 1 tab PO BEDTIME 08/01/18 Isosorbide Dinit [Isordil*] 20 mg PO BID #60 tab 08/03/18 Magic Mouthwash [Magic Mouthwash*] 15 ml PO QIDP PRN #1 btl 08/03/18 predniSONE [Prednisone*] 10 mg PO BID #10 tab 08/03/18 - Past Medical/Surgical History Diabetic: No -: right breast sx removal of lump, and lymph nodes -: breast ca-metastasized, radiation, chemo stopped 03/2018 complications -: renal disease -: ESRD -: COPD -: CHF -: ADD/ADHD -: Pnemonia -: hysterectomy -: -: exploratory laparotomy, cholecystectomy -: port a cath left chest wall -: gabbi right chest wall -: partial right mastectomy - Family History Mother -: Diabetes, Cancer Notes: breast ca Father -: Heart disease, Hypertension - Social History Smoking Status: Former smoker Alcohol use: No CD- Drugs: No Caffeine use: Yes Review of Systems 10-point ROS is otherwise unremarkable Physical Examination - Physical Exam General: Alert, In no apparent distress, Cachectic HEENT: Atraumatic, PERRLA, Mucous membr. moist/pink, EOMI, Sclerae nonicteric Neck: Supple, 2+ carotid pulse no bruit, No LAD, Without JVD or thyroid abnormality Respiratory: Diminished, Crackles/rales (bibasilar) Cardiovascular: Normal S1 S2, No gallops Gastrointestinal: Normal bowel sounds, No tenderness Musculoskeletal: No tenderness Integumentary: No rashes Neurological: Normal speech, Normal strength at 5/5 x4 extr, Normal tone, Normal affect Lymphatics: No axilla or inguinal lymphadenopathy - Studies Laboratory Data (last 24 hrs) 08/08/18 00:07: Sodium 124 L, Potassium 4.8, BUN 22 H, Creatinine 1.97 H, Glucose 152 H, Phosphorus 2.5, Magnesium 2.0 08/08/18 00:07: WBC 10.6 D, Hgb 15.2 H, Hct 47.1 H D, Plt Count 137 L D Assessment and Plan - Problems (Diagnosis) (1) Acute on chronic systolic CHF (congestive heart failure) Onset Date: 05/04/18 Current Visit: No Status: Acute (2) Respiratory distress Onset Date: 06/07/18 Current Visit: No Status: Acute (3) COPD (chronic obstructive pulmonary disease) Onset Date: 08/02/18 Current Visit: No Status: Chronic Qualifiers: COPD type: COPD with acute exacerbation Qualified Code(s): J44.1 - Chronic obstructive pulmonary disease with (acute) exacerbation (4) ESRD (end stage renal disease) Onset Date: 04/05/18 Current Visit: No Status: Chronic (5) Metastatic breast cancer Onset Date: 06/07/18 Current Visit: No Status: Chronic - Plan The patient will be admitted to the hospital due to dyspnea, due to multiple etiologies, including acute on chronic systolic chf, COPD. Will order breathing treatments, consult Dr Wei to resume HD. - Advance Directives Does patient have a Living Will: No Does patient have a Durable POA for Healthcare: No - Code Status/Comfort Care Comfort Measures: Hospice Care
[2018-08-08] MEDS ORDERED: ONDANSETRON 4 MG/2 ML VIAL IV PRN (05:33)
[2018-08-08] MEDS ORDERED: NALOXONE 0.4 MG/ML VIAL ONE (06:08)
[2018-08-08 06:17] LABS: Blood O2 Saturation 99.9 % (92-98.5)
[2018-08-08 06:18] LABS: Arterial Blood Carboxyhemoglob 1.9 % (0-1.5); Blood Gas Oxyhemoglobin 97.4 % (94-97)
[2018-08-08] MEDS ORDERED: BISACODYL 10 MG RECTAL SUPP PR PRN (09:33)
[2018-08-08] MEDS: SILDENAFIL CITRATE 20 MG TABLET PO SCH ×2 (10:29→20:24)
[2018-08-08] MEDS: predniSONE 20 MG TAB PO SCH ×2 (10:29→20:24)
--- NOTE | 2018-08-08 11:59 | RAD REPORT ---
EXAM DESCRIPTION: RAD - Chest Single View - 08/08/2018 1:31 am CLINICAL HISTORY: DYSPNEA Chest pain. COMPARISON: Chest Single View dated 08/02/2018; Chest Single View dated 07/31/2018; Chest Single View da liam 06/11/2018; Chest Single View dated 06/07/2018 FINDINGS: Portable technique limits examination quality. The lungs are grossly clear. Left-sided port catheter tip in SVC. Right-sided venous catheter tip in right atrium. The heart is mildly to moderately enlarged. Trace right pleural fluid. IMPRESSION: No acute intrathoracic process suspected.
[2018-08-08] MEDS: NYSTATIN 500,000 UNIT/5 ML UDC PO SCH ×3 (13:01→22:18)
[2018-08-08] MEDS ORDERED: NA CHLORIDE 0.9% 1,000 ML IV PRN (13:09)
[2018-08-08] MEDS: NITROGLYCERIN 0.2 MG/HR (5 MG) PATCH TD SCH (13:24)
[2018-08-08] MEDS ORDERED: ALBUMIN HUMAN 25% 50 ML IV SCH (14:00)
--- NOTE | 2018-08-08 17:15 | PN ---
Date of Progress Note: 08/08/2018 The patient seen and examined. Chart reviewed and case discussed with RN, Dr. Wei, and Dr. Pool lino. The family at the bedside. The patient is in very poor condition, complaining of pain all ove r. Has pain in her hands, worse on the right with purple fingers and gangrenous fingertips. Medications: List reviewed. Code Status: Do not intubate. The patient is okay with CPR, but does not want a ventilator. Family at the bedside. Physical Examination: Vital Signs: Temperature 97.1, heart rate 89, blood pressure 136/101, respirations 10, O2 97% on 3 L via nasal cannula. General: Awake, alert, oriented x3. Some moderate distress due to pain, ill-appearing cachectic fra il female, appears ashen. CV: S1, S2. No murmurs. Peripheral pulses are weak bilaterally. Respiratory: Diminished breath sounds. Some crackles heard. Gastrointestinal: Abdomen is soft, nontender, nondistended. Positive bowel sounds. Extremities: The patient does have some clubbing of her fingers along with cyanosis of her fingertip s. No edema. Neurologic: Nonfocal. Skin: The patient has discoloration of her digits on the right hand with dry gangrene of the distal metacarpal segments of the second and third digits. Laboratory Data: Sodium 124, potassium 4.8, chloride 89, CO2 21, BUN 22, creatinine 1.97, glucose 15 2, calcium 8.5. WBC 10.6, H and H 15.2 and 47.1, platelets 137. ABG; pH 7.43, pCO2 21.9, pO2 182, b icarb 14. Blood cultures pending. Chest x-ray personally reviewed. No official report shows some i ncrease in pulmonary vasculature. Assessment And Plan: A 53-year-old female with: 1.Vgiqp-ps-[id number] systolic heart failure. Continue diuresis. Monitor I's and O's. Fluid restrict ion. The patient is on dialysis. 2.End-stage renal disease, on hemodialysis. Dr. Wei has been consulted. 3.Acute respiratory distress. The patient is requiring supplemental oxygen likely due to above. 4.Chronic obstructive pulmonary disease. Continue with nebulizer treatments. 5.Metastatic breast cancer. The patient is on hospice, which has been revoked to receive treatment at this time. 6.Raynaud phenomena. The patient now having gangrene of the digits. Dr. Rock with [facility] is being consulted. We will give trial of sildenafil. Keep extremities warm. 7.Gastrointestinal and deep venous thrombosis prophylaxis addressed. Overall, the patient's prognos is is very poor. Would recommend continuing hospice and palliative care. However, the patient wants to be treated at this time. Code status is do not intubate, would not be surprised since the patien t had cardiopulmonary arrest during this hospitalization. Family updated. /MODL Voice ID: [id number] Report ID: [id number]
--- NOTE | 2018-08-08 18:15 | CON ---
Date of Consultation: 08/08/2018 NEPHROLOGY CONSULTATION Additional Consulting Physician: Ulises Mcleod MD. Reason For Consultation: Elevated BUN and creatinine, fluid management, hypertension, end-stage zhen l disease. History Of Present Illness: This is a pleasant 53-year-old female, unfortunate, with significant pas t medical history of end-stage renal disease, anuric secondary to cardiorenal and thromboembolic seco ndary to ; breast cancer with metastasis; congestive heart failure, ejection fraction of 15 % to 20%; and COPD. The patient came to the hospital because of pain in the hand and the leg with sh ortness of breath, found to have over volume with severe hyponatremia. For that reason, we have been consulted. The patient is complaining from cyanosis and cramp on the peripheral extremity. Past Medical History: Includes: 1.Hypertension. 2.Hyperlipidemia. 3.End-stage renal disease, anuric secondary to TMA. 4.Congestive heart failure, ejection fraction of 15%. 5.Anxiety. Past Surgical History: Include hysterectomy, , cholecystectomy, PermCath placement and óscar mariaelena, and mastectomy. Family History: Positive for diabetes, cancer, and coronary artery disease. Social History: Denies smoking. Denies drinking. Denies drug abuse. Physical Examination: Vital Signs: When I saw the patient, blood pressure 136/100. Chest: Clear to auscultation. Heart: S1, S2. Systolic murmur. Abdomen: Soft, nontender. Extremities: No edema. Cyanosis under the nails, and there is eschar on the middle finger on the ri ght hand with possible ischemia on the tip of the finger. Neuro: Alert and oriented x3. No focal. Review of Systems: Head and Neck: No red eye. No ear pain. GI: No nausea, no vomiting. : No polyuria, no dysuria, no hematuria. Translator/Interpreter: No vaginal discharge. Respiratory: Has shortness of breath. Cardiovascular: Has no leg swelling. Endocrine: No polydipsia. Skin: No rash. Neuro: Has neuropathy. Musculoskeletal: Has extremity pain. Laboratory Data: WBC 10.6, H and H 15.2/47.1, platelets 137. Sodium 124, potassium 4.8, bicarb 21, BUN 22, creatinine 1.9, calcium 8.5, phos 2.5, magnesium of 2. Current Medications: The patient is on include carvedilol, Revatio, nystatin, ipratropium, prednison e. Home Medications: Include hydromorphone, isosorbide, nystatin, carvedilol, alprazolam, pantoprazole, and Xanax. Assessment And Plan: 1.End-stage renal disease. I am going to continue the patient on daily dialysis and we will monitor the patient. 2.Hypertension. Given the symptoms of possible renal, possible paraneoplastic, I am going to discon tinue beta-adonis. I agree with Revatio. I am going to start the patient on nitroglycerin patch an d we will follow up. 3.Peripheral cyanosis. Follow up with Hand Surgery. Start the patient on aspirin. As I mentioned, we will switch the patient on nitroglycerin patch. On the dialysis, I am going use high temperature , low blood flow, and increase the heparin, and we will follow up the patient. 4.Congestive heart failure. We will try to challenge the patient. I had a long discussion with the patient in the presence of the about the option of nursing h ome. The patient and family still thinking. We will follow up. ZIA Voice ID: [id number] Report ID: [id number]
[2018-08-08] MEDS: IPRATROPIUM BROM 0.5MG/2.5ML NEB PRN (20:15)
[2018-08-08] MEDS: ALBUTEROL 2.5 MG/3 ML NEB SOL NEB PRN (20:15)
[2018-08-08] MEDS: SENOSIDES 8.6 MG TAB PO PRN (20:24)
[2018-08-08] MEDS ORDERED: CARVEDILOL 3.125 MG TAB PO SCH (21:00)
[2018-08-08] MEDS: ALPRAZOLAM 0.25 MG TABLET PO PRN (23:34)
[2018-08-09 06:00] LABS: Absolute Lymphocytes (CBC) 0.7 K/uL (0.7-4.9); Absolute Monocytes 0.2 K/uL (0.1-1.3); Absolute Neutrophil 5.6 K/uL (1.8-8.0); Basophils % 0.2 % (0-1.3); Hematocrit 42.2 % (36.0-45.0); Lymphocytes % 10.4 % (15.3-44.8); MPV 9.9 fL (7.6-11.3); Monocytes % 3.3 % (3.3-12.3); RBC Red Blood Cell Count 4.16 M/uL (3.86-4.86)
[2018-08-09 08:07] LABS: Anisocytosis SLIGHT; Blood Morphology Comment NOTED (NOT SEEN); Macrocytosis SLIGHT; Platelet Estimate ADEQ
[2018-08-09] MEDS: NITROGLYCERIN 0.2 MG/HR (5 MG) PATCH TD SCH (09:00)
[2018-08-09] MEDS: NYSTATIN 500,000 UNIT/5 ML UDC PO SCH ×4 (09:11→21:26)
[2018-08-09] MEDS: predniSONE 20 MG TAB PO SCH ×2 (09:11→21:25)
[2018-08-09] MEDS: ASPIRIN 81 MG CHEWABLE TABLET PO SCH (09:11)
[2018-08-09] MEDS: PANTOPRAZOLE 40MG TABLET PO SCH (09:11)
[2018-08-09] MEDS: SILDENAFIL CITRATE 20 MG TABLET PO SCH ×2 (09:12→21:25)
--- NOTE | 2018-08-09 11:02 | RAD REPORT ---
EXAM DESCRIPTION: US - Upper Ext Artery Uni Gallo - 08/09/2018 10:36 am CLINICAL HISTORY: Gangrene of several right fingers COMPARISON: none FINDINGS: The waveforms of the right common carotid, subclavian, axillary, brachial, radial and ulna r arteries are mostly biphasic. Some monophasic waveforms are seen. A high-grade stenosis is not visualized. An arterial occlusion is not seen. IMPRESSION: No evidence of a high-grade stenosis/occlusion
--- NOTE | 2018-08-09 11:07 | RAD REPORT ---
EXAM DESCRIPTION: US - UPPER EXTREMITY VENOUS UNILATE - 08/09/2018 10:54 am CLINICAL HISTORY: Gangrene, look for venous congestion up to subclavin COMPARISON: Upper Ext Artery Uni Gallo dated 08/09/2018 FINDINGS: Thrombosis is noted involving the right internal jugular vein. The other veins of the righ t upper extremity show no evidence of thrombosis. IMPRESSION: Right internal jugular vein thrombosis. Findings were discussed with Dr. Mcleod 11 a.m. 08/09/2018 by telephone.
[2018-08-09] MEDS: ENOXAPARIN 40 MG/0.4 ML SQ SCH (14:38)
--- NOTE | 2018-08-09 16:19 | PN ---
Subjective: The patient seen and examined. Chart reviewed and case discussed with RN and Dr. Rock. The patient continues to have some discoloration of her fingers of the right hand with some gangrene, improved somewhat with medications and warmth. Medications: List reviewed. Physical Examination: Vital Signs: Temperature 97, heart rate 88, blood pressure 128/91, respirations 20, O2 99% on 2 L via nasal cannula. General: Awake, alert, oriented x3, ill-appearing, cachectic, frail female. BMI 15. CV: S1, S2. Regular rate and rhythm. No murmurs. Peripheral pulses weak bilaterally. Respiratory: Diminished breath sounds. No wheezing or crackles. Gastrointestinal: Abdomen is soft, nontender, nondistended. Positive bowel sounds. Extremities: The patient does have some clubbing of the fingers. The patient' s skin is purple, has some discoloration of the fingers of the upper extremity with gangrene. Neurologic: Nonfocal. Laboratory Data: Sodium 121, potassium 4, chloride 87, CO2 is 23, BUN 17, creatinine 1.73, glucose 176, and calcium 8.3. WBC 6.5, H and H 13.9, 42.2, platelets 130. Blood cultures, no growth to date. Doppler ultrasound pending. Assessment: A 53-year-old female with: 1. Acute on chronic systolic heart failure, improving. Continue fluid restriction. Monitor I's and O's. Continue dialysis. 2. End-stage renal disease, on hemodialysis. Appreciate Dr. Wei's input. 3. Acute respiratory distress, improving. Continue supplemental oxygen. 4. Raynaud phenomenon versus possible venous congestion of the upper extremities. The patient has discoloration of the digits of the right hand, specifically the first, second, and third digits with some gangrene present on admission. Appreciate Dr. Rock's input. Spoke with Dr. Brandt with Radiology. He states that the MRA is not done routinely here to evaluate upper extremity vessels and recommended arterial and venous Doppler. We will obtain Doppler to determine if there is any surgical issue that can be repaired. The patient wants everything done and wants to revoke her hospice status. 5. Metastatic breast cancer, on hospice. Per hospice doctor, the patient is still receiving oral chemotherapy. 6. Chronic obstructive pulmonary disease, chronic bronchitis. We will continue nebs. 7. Gastrointestinal and deep venous thrombosis prophylaxis addressed. Overall, very poor prognosis. The patient wants everything to be done, which goes against hospice as surgery is an invasive procedure. The patient was counseled regarding her prognosis, stated that she is unfortunately dying, however, the patient does not seem to understand and seems to be in denial of her overall health. The patient states that she wants to get better. Explained to her that her condition is terminal. The patient certainly has difficulty dealing with her situation. 8. Adjustment disorder with depressed mood. Plan: Follow up on Doppler study. ADDENDEUM: Doppler arterial is normal. Doppler venous shows DVT right IJ. Start on lovenox 1mg/kg q24hr renally dosed. Dr. Rock updated. He will reassess her in am. /BIANCA Voice ID: [id number] Report ID: [id number] MTDD
[2018-08-09] MEDS: ACETAMINOPHEN 500 MG TAB PO PRN ×2 (16:32→21:25)
[2018-08-09] MEDS: ALBUTEROL 2.5 MG/3 ML NEB SOL NEB PRN (21:35)
[2018-08-09] MEDS: IPRATROPIUM BROM 0.5MG/2.5ML NEB PRN (21:35)
[2018-08-10] MEDS: PROMETHAZINE 25 MG/ML VIAL IV PRN ×2 (01:58→23:09)
--- NOTE | 2018-08-10 03:02 | PN ---
Date of Progress Note: 08/09/2018 Chief Complaint: End-stage renal disease. The patient has an oliguric anuric urine output. She had fluid overload. She has history of noncomp liance with p.o. fluid restriction. She has history of breast cancer with metastases, congestive hea rt failure with systolic dysfunction, severely diminished ejection fraction to 15 to 20%, and COPD. The patient presented to the hospital because of generalized weakness. She was found to have severe hyponatremia and dialysis was done to obtain negative fluid balance. Hyponatremia was due to the dil utional effect of fluid overload. Leg edema has been in good control though. Review of Systems: Denies fever, chills. Denies abdominal pain, nausea, vomiting. Physical Examination: Lungs: Diminished breath sounds at the bases. Heart: S1, S2. Abdomen: Soft, benign, not tender. Extremities: Edema present. Laboratory Data: Hemoglobin 13.9, WBC 6.5, platelet count is 130,000. Sodium 124, potassium 4.8, ch loride 89, CO2 of 21, BUN 20, creatinine 1.97, phosphorus 2.5. Impression And Plan: 1.End-stage renal disease. The patient continue daily dialysis to provide metabolic clearance and u ltrafiltration. 2.Hypertension. Monitor blood pressure during dialysis. Adjust ultrafiltration as needed. 3.Renal osteodystrophy. Monitor phosphorus level. Adjust binders. 4.Systolic dysfunction, congestive heart failure. Workup to rule out coronary syndrome per Cardiolo gy. EB/MODL Voice ID: [id number] Report ID: [id number]
[2018-08-10] MEDS: ACETAMINOPHEN 500 MG TAB PO PRN (04:22)
[2018-08-10] MEDS: NYSTATIN 500,000 UNIT/5 ML UDC PO SCH ×4 (09:00→21:22)
[2018-08-10] MEDS: NITROGLYCERIN 0.2 MG/HR (5 MG) PATCH TD SCH (09:00)
[2018-08-10] MEDS: predniSONE 20 MG TAB PO SCH ×2 (10:17→21:22)
[2018-08-10] MEDS: PANTOPRAZOLE 40MG TABLET PO SCH (10:17)
[2018-08-10] MEDS: ASPIRIN 81 MG CHEWABLE TABLET PO SCH (10:18)
[2018-08-10] MEDS: SILDENAFIL CITRATE 20 MG TABLET PO SCH ×2 (10:18→21:22)
[2018-08-10] MEDS: ENOXAPARIN 40 MG/0.4 ML SQ SCH (10:18)
--- NOTE | 2018-08-10 12:23 | P.PN ---
Subjective Date of Service: 08/10/18 Chief Complaint: dyspnea Subjective: No new changes Pt seen and examined during HD today Doppler : no high grade stenosis rt IJ DVT consider angiogram for futhter evaluation will cont daily HD Physical Examination - Vital Signs Temperature: 97.2 F Blood Pressure: 144/111 Pulse: 106 Respirations: 18 Pulse Ox (%): 92 - Physical Exam General: Oriented x3, Mild distress HEENT: Atraumatic Neck: Supple, Without JVD or thyroid abnormality Respiratory: Clear to auscultation bilaterally, Normal air movement Cardiovascular: No edema, Regular rate/rhythm, Normal S1 S2 Musculoskeletal: Other (B/l upeper ext discoloration, rt 2nd finger gangrane ) Assessment And Plan - Current Problems (Diagnosis) (1) Breast cancer Onset Date: 04/05/18 Current Visit: No Status: Chronic Qualifiers: Breast location: unspecified site of breast Estrogen receptor status: positive Patient sex: female Laterality: left Qualified Code(s): C50.912 - Malignant neoplasm of unspecified site of left female breast; Z17.0 - Estrogen receptor positive status [ER+] (2) ESRD (end stage renal disease) Onset Date: 04/05/18 Current Visit: No Status: Chronic - Plan End-stage renal disease. poppy cont daily dialysis HTN controlled hyponatremia conusled about alt and fluid restriction will correct on HD rt IJ thrombosis cathter induced will consider [facility] antocoagulation Upper extremity ischemia surgery evaluation doppler: no high grade stenosis can benefit from angiogram
--- NOTE | 2018-08-10 20:35 | P.PN ---
Subjective Date of Service: 08/10/18 Chief Complaint: dyspnea Subjective: No new changes The patient seen and examined. Chart reviewed and case discussed with nursing staff. The patient continues to have some discoloration of her fingers of the right hand with some gangrene, improved somewhat with medications and warmth. Review of Systems 10-point ROS is otherwise unremarkable Physical Examination - Vital Signs Temperature: 96.8 F Blood Pressure: 118/90 Pulse: 90 Respirations: 18 Pulse Ox (%): 99 - Physical Exam General: Alert, In no apparent distress HEENT: Atraumatic, PERRLA, EOMI Neck: Supple, JVD not distended Respiratory: Clear to auscultation bilaterally, Normal air movement Cardiovascular: Regular rate/rhythm, Normal S1 S2 Gastrointestinal: Normal bowel sounds, No tenderness Musculoskeletal: Clubbing (skin is purple, has some discoloration of the fingers of the upper extremity with gangrene. ) Integumentary: No rashes Neurological: Normal speech, Normal tone, Normal affect Lymphatics: No axilla or inguinal lymphadenopathy Assessment And Plan - Plan : A 53-year-old female with: 1. Acute on chronic systolic heart failure, improving. Continue fluid restriction. Monitor I's and O's. Continue dialysis. 2. End-stage renal disease, on hemodialysis. Appreciate Dr. Wei's input. 3. Acute respiratory distress, improving. Continue supplemental oxygen. 4. Right IJ venous thromboembolism. The patient has discoloration of the digits of the right hand, specifically the first, second, and third digits with some gangrene present on admission. Appreciate Dr. Rock's input. Dr. Rock on board. The patient wants everything done and wants to revoke her hospice status. 5. Metastatic breast cancer, on hospice. Per hospice doctor, the patient is still receiving oral chemotherapy. Hospice has been revoked as patient wants everything done. 6. Chronic obstructive pulmonary disease, chronic bronchitis. We will continue nebs. 7. Gastrointestinal and deep venous thrombosis prophylaxis addressed. Overall, very poor prognosis. The patient wants everything to be done, which goes against hospice as surgery is an invasive procedure. The patient was counseled regarding her prognosis, stated that she is unfortunately dying, however, the patient does not seem to understand and seems to be in denial of her overall health. The patient states that she wants to get better. Explained to her that her condition is terminal. The patient certainly has difficulty dealing with her situation. 8. Adjustment disorder with depressed mood. Plan: pending Dr. Rock's input. Re-discussed with patient regarding her poor prognosis though patient still wants eveything done.
[2018-08-11] MEDS: PROMETHAZINE 25 MG/ML VIAL IV PRN ×3 (01:04→22:44)
[2018-08-11] MEDS: PANTOPRAZOLE 40MG TABLET PO SCH (08:50)
[2018-08-11] MEDS: NYSTATIN 500,000 UNIT/5 ML UDC PO SCH ×4 (09:00→21:55)
[2018-08-11] MEDS ORDERED: ENOXAPARIN 30 MG/0.3 ML SQ SCH (09:00)
--- NOTE | 2018-08-11 09:22 | P.PN ---
Subjective Date of Service: 08/11/18 Chief Complaint: dyspnea Subjective: No new changes The patient seen and examined. Chart reviewed and case discussed with nursing staff. The patient continues to have some discoloration of her fingers of the right hand with some gangrene, improved somewhat with medications and warmth. Review of Systems 10-point ROS is otherwise unremarkable Physical Examination - Vital Signs Temperature: 97.1 F Blood Pressure: 148/101 Pulse: 110 Respirations: 20 Pulse Ox (%): 92 - Physical Exam General: Alert, Other (Ill-appearing, in ekzw-hp-vwsgsdaf distress) HEENT: Atraumatic, PERRLA, EOMI Neck: Supple, JVD not distended Respiratory: Clear to auscultation bilaterally, Normal air movement Cardiovascular: Regular rate/rhythm, Normal S1 S2 Gastrointestinal: Normal bowel sounds, No tenderness Musculoskeletal: Other (some clubbing of the fingers. The patient's skin is purple, has some discoloration of the fingers of the upper extremity with gangrene. ) Integumentary: No rashes Neurological: Normal speech, Normal tone, Normal affect Lymphatics: No axilla or inguinal lymphadenopathy Assessment And Plan - Plan : A 53-year-old female with: 1. Acute on chronic systolic heart failure, improving. Continue fluid restriction. Monitor I's and O's. Continue dialysis. 2. End-stage renal disease, on hemodialysis. Appreciate Dr. Wei's input. 3. Acute respiratory distress, improving. Continue supplemental oxygen. 4. Right IJ venous thromboembolism. The patient has discoloration of the digits of the right hand, specifically the first, second, and third digits with some gangrene present on admission. Appreciate Dr. Rock's input. Dr. Rock on board. The patient wants everything done and wants to revoke her hospice status. 5. Metastatic breast cancer, on hospice. Per hospice doctor, the patient is still receiving oral chemotherapy. Hospice has been revoked as patient wants everything done. 6. Chronic obstructive pulmonary disease, chronic bronchitis. We will continue nebs. 7. Gastrointestinal and deep venous thrombosis prophylaxis addressed. Overall, very poor prognosis. The patient wants everything to be done, which goes against hospice as surgery is an invasive procedure. The patient was counseled regarding her prognosis, stated that she is unfortunately dying, however, the patient does not seem to understand and seems to be in denial of her overall health. The patient states that she wants to get better. Explained to her that her condition is terminal. The patient certainly has difficulty dealing with her situation. 8. Adjustment disorder with depressed mood. Plan: Poor surgical candidate. Explained to patient and mother at bedside. Pending a family meeting for further plans. Time Spent Managing PTS Care (In Minutes): 35
[2018-08-11] MEDS: SILDENAFIL CITRATE 20 MG TABLET PO SCH ×2 (09:51→21:54)
[2018-08-11] MEDS: ASPIRIN 81 MG CHEWABLE TABLET PO SCH (09:52)
[2018-08-11] MEDS: predniSONE 20 MG TAB PO SCH ×2 (09:52→21:53)
[2018-08-11] MEDS: NITROGLYCERIN 0.2 MG/HR (5 MG) PATCH TD SCH (10:52)
--- NOTE | 2018-08-11 16:27 | PN ---
Date of Progress Note: 08/11/2018 Subjective: The patient is still complaining of hand pain. Physical Examination: Vital Signs: Blood pressure 167/84, pulse of 112. Chest: Clear on the upper zone, faint crackles on the base. Heart: S1-S2, systolic murmur. Abdomen: Soft, nontender. Extremities: Cold upper extremity. Laboratory Data: WBC 6.5, H and H 13.9/42.2, platelet 130. Sodium 121, potassium 4, bicarb 23, BUN 17, creatinine 1.7, calcium 8.3. Current Medications: The patient on include aspirin, nystatin, Lovenox, Revatio, nitroglycerin patch , alprazolam, ipratropium, and pantoprazole. Assessment And Plan: 1.End-stage renal disease secondary to cardiorenal TMA, anuric over volume, continue daily dialysis. 2.Hypertension, controlled, optimal, continue current medication. Keep holding beta adonis given t he Raynaud symptoms. 3.Raynaud phenomena. Start Neurontin. Continue calcium channel adonis and nitroglycerin. Continu e Revatio. 4.Breast cancer with met. The patient has overall poor prognosis. We will have family meeting by e nd of the day. IZA Voice ID: [id number] Report ID: [id number]
[2018-08-11] MEDS: GABAPENTIN 100 MG CAP PO SCH (21:53)
[2018-08-12] MEDS: PROMETHAZINE 25 MG/ML VIAL IV PRN ×2 (05:13→23:14)
[2018-08-12 05:14] LABS: Absolute Lymphocytes (CBC) 0.5 K/uL (0.7-4.9); Absolute Monocytes 0.2 K/uL (0.1-1.3); Absolute Neutrophil 6.3 K/uL (1.8-8.0); Basophils % 0.4 % (0-1.3); Eosinophils % 0.1 % (0-4.4); Hematocrit 39.4 % (36.0-45.0); Lymphocytes % 6.7 % (15.3-44.8); MPV 8.5 fL (7.6-11.3); Monocytes % 3.2 % (3.3-12.3); RBC Red Blood Cell Count 3.85 M/uL (3.86-4.86)
[2018-08-12 05:20] LABS: Potassium 4.1 mmol/L (3.5-5.1)
[2018-08-12 05:59] LABS: Blood Morphology Comment NOTED (NOT SEEN); Macrocytosis 1+; Platelet Estimate ADEQ; Urine White Blood Cell Casts OK
[2018-08-12] MEDS: PANTOPRAZOLE 40MG TABLET PO SCH (08:30)
[2018-08-12] MEDS: NYSTATIN 500,000 UNIT/5 ML UDC PO SCH ×4 (09:00→21:31)
--- NOTE | 2018-08-12 09:52 | P.PN ---
Subjective Date of Service: 08/12/18 Chief Complaint: dyspnea Subjective: No new changes Pt seen and examined during HD today pt drowsy No plan for surgical intervention daily HD cleared for discharge from nephrology point of view Hyponatremia, will correct on HD, counseled to increase food intake and restrict fluids Physical Examination - Vital Signs Temperature: 98.1 F Blood Pressure: 120/85 Pulse: 100 Respirations: 109 Pulse Ox (%): 100 - Physical Exam General: In no apparent distress, Oriented x3 HEENT: Atraumatic Neck: Supple, Without JVD or thyroid abnormality Respiratory: Clear to auscultation bilaterally, Normal air movement Cardiovascular: No edema, Regular rate/rhythm, Normal S1 S2 Musculoskeletal: Other (b/l fingers discoloration ) Integumentary: No rashes Assessment And Plan - Current Problems (Diagnosis) (1) Breast cancer Onset Date: 04/05/18 Current Visit: No Status: Chronic Qualifiers: Breast location: unspecified site of breast Estrogen receptor status: positive Patient sex: female Laterality: left Qualified Code(s): C50.912 - Malignant neoplasm of unspecified site of left female breast; Z17.0 - Estrogen receptor positive status [ER+] (2) ESRD (end stage renal disease) Onset Date: 04/05/18 Current Visit: No Status: Chronic - Plan End-stage renal disease. will cont daily dialysis HTN controlled hyponatremia conusled about alt and fluid restriction will correct on HD rt IJ thrombosis catheter induced will consider loan associate antocoagulation Upper extremity ischemia no plan for surgical intervention on Nitoglycerin and sildinafel doppler: no high grade stenosis
[2018-08-12] MEDS: NITROGLYCERIN 0.2 MG/HR (5 MG) PATCH TD SCH (10:48)
--- NOTE | 2018-08-12 11:13 | P.PN ---
Subjective Date of Service: 08/12/18 Chief Complaint: dyspnea Subjective: No new changes The patient seen and examined. Chart reviewed and case discussed with nursing staff. The patient continues to have some discoloration of her fingers of the right hand with some gangrene, improved somewhat with medications and warmth. Review of Systems 10-point ROS is otherwise unremarkable Physical Examination - Vital Signs Temperature: 98.1 F Blood Pressure: 126/76 Pulse: 89 Respirations: 109 Pulse Ox (%): 100 - Physical Exam General: Alert, In no apparent distress, Oriented x3 HEENT: Atraumatic, PERRLA, EOMI Neck: Supple, JVD not distended Respiratory: Clear to auscultation bilaterally, Normal air movement Cardiovascular: Regular rate/rhythm, Normal S1 S2 Gastrointestinal: Normal bowel sounds, No tenderness Musculoskeletal: Tenderness Integumentary: Rash(es), Skin lesion Neurological: Normal speech, Normal tone, Normal affect Assessment And Plan - Plan A 53-year-old female with: 1. Acute on chronic systolic heart failure. Continue fluid restriction. Monitor I's and O's. Continue dialysis. 2. End-stage renal disease, on hemodialysis. Appreciate Dr. Wei's input. 3. Acute respiratory distress, improving. Continue supplemental oxygen. 4. Right IJ venous thromboembolism. The patient has discoloration of the digits of the right hand, specifically the first, second, and third digits with some gangrene present on admission. Appreciate Dr. Rock's input. No surgical intervention planned at this time. The patient wants everything done and wants to revoke her hospice status. 5. Metastatic breast cancer, on hospice. Per hospice doctor, the patient is still receiving oral chemotherapy. Hospice has been revoked as patient wants everything done. 6. Chronic obstructive pulmonary disease, chronic bronchitis. We will continue nebs. 7. Gastrointestinal and deep venous thrombosis prophylaxis addressed. Overall, very poor prognosis. The patient wants everything to be done, which goes against hospice as surgery is an invasive procedure. The patient was counseled regarding her prognosis, stated that she is unfortunately dying, however, the patient does not seem to understand and seems to be in denial of her overall health. The patient states that she wants to get better. Explained to her that her condition is terminal. The patient certainly has difficulty dealing with her situation. 8. Adjustment disorder with depressed mood. Plan: Poor surgical candidate. Explained to patient and mother at bedside. tension worker onboard. Continued talks with family and patient for further goals of care Time Spent Managing PTS Care (In Minutes): 35
[2018-08-12] MEDS: ASPIRIN 81 MG CHEWABLE TABLET PO SCH (13:40)
[2018-08-12] MEDS: predniSONE 20 MG TAB PO SCH ×2 (13:41→21:31)
[2018-08-12] MEDS: GABAPENTIN 100 MG CAP PO SCH ×2 (13:41→21:30)
[2018-08-12] MEDS: SILDENAFIL CITRATE 20 MG TABLET PO SCH ×2 (13:41→21:30)
[2018-08-12] MEDS: SENOSIDES 8.6 MG TAB PO PRN (19:02)
[2018-08-13] MEDS: PANTOPRAZOLE 40MG TABLET PO SCH (08:19)
[2018-08-13] MEDS: GABAPENTIN 100 MG CAP PO SCH ×2 (09:00→20:05)
[2018-08-13] MEDS: NYSTATIN 500,000 UNIT/5 ML UDC PO SCH ×5 (09:00→20:04)
[2018-08-13] MEDS: predniSONE 20 MG TAB PO SCH ×2 (09:37→20:06)
[2018-08-13] MEDS: ASPIRIN 81 MG CHEWABLE TABLET PO SCH (09:37)
[2018-08-13] MEDS: NITROGLYCERIN 0.2 MG/HR (5 MG) PATCH TD SCH (09:38)
[2018-08-13] MEDS: SILDENAFIL CITRATE 20 MG TABLET PO SCH ×2 (09:38→20:05)
[2018-08-13] MEDS: PROMETHAZINE 25 MG/ML VIAL IV PRN ×2 (09:42→20:02)
--- NOTE | 2018-08-13 09:53 | PN ---
Subjective: The patient is a 54-year-old white female who is right-hand dominant. She is referred f or ischemia changes and ulcerations to her right little finger radial aspect. She has a history of s moking, half pack a day for 10 years, but stopped it many years ago, does not currently smoke. No dr chetan. She is allergic to sulfa she was diagnosed in 2004 with stage II right breast can cer, treated with partial mastectomy, chemo and radiation therapy for 6 weeks. She had a recurrence about 1 year ago with a lesion she has metastatic disease. Currently, she is on dialysis. She has a right CVP line for dialysis and left CVP line for chemotherapy infusion. She began her d ialysis in December 2017. At that time, she also began oxygen therapy. She states that the chemotherapy for her breast cancer has caused damage to her lungs as well as she was getting dialysis up to 7 times a week. Objective: Vital Signs: She is 5 feet 3 inches, BMI 15. Extremities: On examination, her feet are normal. No ulcerations or ischemic changes to toes. The right hand blue discoloration, worse than the left hand. The right hand has dry gangrene of the radi al aspect of the right middle finger, about 0.5 x 0.5 cm at the nail bed and extending radially. She has pulses present. Capillary refills about 1 to 2 seconds. Assessment: Ischemia to the hands. The patient has end stage disease, I believe, if I operate it, s he probably would not heal. She wants everything to be done possible wound care this time and see how she does . GH/MODL Voice ID: [id number] Report ID: [id number]
--- NOTE | 2018-08-13 10:32 | P.PN ---
Subjective Date of Service: 08/13/18 Chief Complaint: dyspnea Subjective: No new changes now rt 1st 3 digits gangrane with, Lt first digit no candidate for surgical intervention will add samll dose calcium channel adonis daily HD Hyponatremia, will correct on HD, counseled to increase food intake and restrict fluids Physical Examination - Vital Signs Temperature: 97.7 F Blood Pressure: 135/93 Pulse: 103 Respirations: 20 Pulse Ox (%): 100 - Physical Exam General: Oriented x3, Mild distress HEENT: Atraumatic Neck: Supple, Without JVD or thyroid abnormality Respiratory: Clear to auscultation bilaterally Cardiovascular: No edema, Regular rate/rhythm, Normal S1 S2 Gastrointestinal: Normal bowel sounds, Soft and benign Musculoskeletal: Other (rt 1st 3 digits gangrane with lt 1st digit ) - Studies Microbiology Data (last 24 hrs): 08/08/18 00:15 Blood - Blood Aerobic Blood Culture - Final No growth in 5 days. 08/08/18 00:15 Blood - Blood Anaerobic Blood Culture - Final No growth in 5 days. 08/08/18 00:07 Blood - Blood Aerobic Blood Culture - Final No growth in 5 days. 08/08/18 00:07 Blood - Blood Anaerobic Blood Culture - Final No growth in 5 days. Assessment And Plan - Current Problems (Diagnosis) (1) Breast cancer Onset Date: 04/05/18 Current Visit: No Status: Chronic Qualifiers: Breast location: unspecified site of breast Estrogen receptor status: positive Patient sex: female Laterality: left Qualified Code(s): C50.912 - Malignant neoplasm of unspecified site of left female breast; Z17.0 - Estrogen receptor positive status [ER+] (2) ESRD (end stage renal disease) Onset Date: 04/05/18 Current Visit: No Status: Chronic - Plan End-stage renal disease. will cont daily dialysis HTN controlled hyponatremia conusled about alt and fluid restriction will correct on HD rt IJ thrombosis catheter induced will consider superintendent [employer] antocoagulation Upper extremity gangrenous changes doppler: no high grade stenosis no plan for surgical intervention on Nitoglycerin and sildinafel will add calcium channel adonis
--- NOTE | 2018-08-13 12:02 | P.PN ---
Subjective Date of Service: 08/13/18 Chief Complaint: dyspnea Subjective: No C/O voiced The patient seen and examined. Chart reviewed and case discussed with nursing staff. The patient continues to have some discoloration of her fingers of the right hand with some gangrene, improved somewhat with medications and warmth. Review of Systems 10-point ROS is otherwise unremarkable Physical Examination - Vital Signs Temperature: 97.7 F Blood Pressure: 135/93 Pulse: 103 Respirations: 20 Pulse Ox (%): 100 - Physical Exam General: Alert, In no apparent distress, Mild distress HEENT: Atraumatic, PERRLA, EOMI Neck: Supple, JVD not distended Respiratory: Clear to auscultation bilaterally, Normal air movement Cardiovascular: Regular rate/rhythm, Normal S1 S2 Gastrointestinal: Normal bowel sounds, No tenderness Musculoskeletal: No tenderness Integumentary: No rashes Neurological: Normal speech, Normal tone, Normal affect - Studies Microbiology Data (last 24 hrs): 08/08/18 00:15 Blood - Blood Aerobic Blood Culture - Final No growth in 5 days. 08/08/18 00:15 Blood - Blood Anaerobic Blood Culture - Final No growth in 5 days. 08/08/18 00:07 Blood - Blood Aerobic Blood Culture - Final No growth in 5 days. 08/08/18 00:07 Blood - Blood Anaerobic Blood Culture - Final No growth in 5 days. Assessment And Plan - Plan A 53-year-old female with: 1. Acute on chronic systolic heart failure. Continue fluid restriction. Monitor I's and O's. Continue dialysis. 2. End-stage renal disease, on hemodialysis. Appreciate Dr. Wei's input. 3. Acute respiratory distress, improving. Continue supplemental oxygen. 4. Right IJ venous thromboembolism. The patient has discoloration of the digits of the right hand, specifically the first, second, and third digits with some gangrene present on admission. Appreciate Dr. Rock's input. No surgical intervention planned at this time. The patient wants everything done and wants to revoke her hospice status. 5. Metastatic breast cancer, on hospice. Per hospice doctor, the patient is still receiving oral chemotherapy. Hospice has been revoked as patient wants everything done. 6. Chronic obstructive pulmonary disease, chronic bronchitis. We will continue nebs. 7. Gastrointestinal and deep venous thrombosis prophylaxis addressed. Overall, very poor prognosis. The patient wants everything to be done, which goes against hospice as surgery is an invasive procedure. The patient was counseled regarding her prognosis, stated that she is unfortunately dying, however, the patient does not seem to understand and seems to be in denial of her overall health. The patient states that she wants to get better. Explained to her that her condition is terminal. The patient certainly has difficulty dealing with her situation. 8. Adjustment disorder with depressed mood. Plan: Poor surgical candidate. Explained to patient and mother at bedside. concession worker onboard. Continued talks with family and patient for further goals of care
[2018-08-13] MEDS: JUVEN PACKET PO SCH (20:06)
[2018-08-13] MEDS: ALBUTEROL 2.5 MG/3 ML NEB SOL NEB PRN (21:07)
[2018-08-13] MEDS: IPRATROPIUM BROM 0.5MG/2.5ML NEB PRN (21:07)
[2018-08-13] MEDS: ACETAMINOPHEN 500 MG TAB PO PRN (23:46)
[2018-08-14] MEDS: FENTANYL CITR 100 MCG/2 ML IV PRN ×2 (01:33→16:50)
[2018-08-14 06:52] VITALS: BMI 12.9
[2018-08-14] MEDS: PANTOPRAZOLE 40MG TABLET PO SCH (07:49)
[2018-08-14] MEDS: GABAPENTIN 100 MG CAP PO SCH (09:00)
[2018-08-14] MEDS ORDERED: AMLODIPINE 2.5 MG TAB PO SCH (09:00)
[2018-08-14] MEDS: NYSTATIN 500,000 UNIT/5 ML UDC PO SCH ×3 (09:00→16:45)
[2018-08-14] MEDS: ALPRAZOLAM 0.25 MG TABLET PO PRN (10:05)
[2018-08-14] MEDS: JUVEN PACKET PO SCH (10:05)
--- NOTE | 2018-08-14 15:15 | PN ---
Date of Progress Note: 08/14/2018 Chief Complaint: End-stage renal disease, congestive heart failure, fluid overload. The patient received dialysis yesterday. She developed hypotension, and ultrafiltration was titrated down to prevent intradialytic hypotension. The patient has history of hyponatremia. Due to the dil utional effect of fluid overload, the sodium level is declining and the patient needs to have dialysi s for fluid management to obtain negative fluid balance. Today, she is scheduled for dialysis. Bloo d pressure is somewhat improved today. Review of Systems: Denies fever, chills. Physical Examination: Lungs: Clear to auscultation bilaterally. Heart: S1, S2. Abdomen: Soft, benign. Musculoskeletal: There is first and third digit gangrene of the hand. Laboratory Data: Blood culture negative. Hemoglobin is 12.9, WBC 7.0, platelet count is 94,000. Sodium is 124, potassium 4.1, chloride 89, CO 2 23, BUN 14, creatinine is ranging from 1.5 to 1.97, calcium 8.4. Impression And Plan: 1.The patient has oliguric urine output, ranging from 0 to 400 per 24 hours. The patient is dialysi s dependent. She will continue dialysis with daily treatment for management of congestive heart fail ure with systolic and diastolic dysfunction. The patient will continue p.o. fluid restriction. 2.Hyponatremia. Continue p.o. fluid restriction. Re-evaluate electrolytes today. Dialysis will be done today with ultrafiltration. 3.Blood culture negative. Continue to monitor hemoglobin level and white count. AIDEE is on hold. DEBORAH/BIANCA Voice ID: [id number] Report ID: [id number]
[2018-08-14] MEDS: ASPIRIN 81 MG CHEWABLE TABLET PO SCH (16:47)
[2018-08-14] MEDS: predniSONE 20 MG TAB PO SCH (16:48)
[2018-08-14] MEDS: SILDENAFIL CITRATE 20 MG TABLET PO SCH (16:48)
[2018-08-14] MEDS: NITROGLYCERIN 0.2 MG/HR (5 MG) PATCH TD SCH (16:48)
--- NOTE | 2018-08-14 16:51 | P.DS ---
Admission Date: 08/09/18 Discharge Date: 08/14/18 Disposition: HOSPICE-HOME Reason for Admission: dyspnea Consultations: Dr. belle, Ortho venkat Ferguson Brief History of Present Illness: Ms Gold is a 53 years old woman with history of metastatic breast cancer, ESRD on HD, who came to ED complaining of progressive SOB. The patient is on daily HD. Thre is no history of fever or chills. No more cough than usual. She is on hospice program, but she would still like to receive treatment, and decided to come to ED for evaluation. Lab work shows normal WBC count. Hyponatremia ( chronic), CXR shows mild CHF, similar to previous one. Hospital Course: This is a 53-year-old female admitted for discoloration of the digits of the right hand and some giving us present on admission. She was found to have right IJ venous thromboembolism, . her need SBE was consulted and no surgical intervention planned at this time due to her comorbidities. Patient was on hospice prior to this admission for metastatic breast cancer. Per hospice doctor, patient was still receiving oral chemotherapy there for hospice was revoked and patient stated she wanted everything done. Multiple extensive discussions with patient and family were had throughout the stay regarding patient's overall poor prognosis. Patient was counseled regarding her prognosis, was told that she has unfortunately dying but patient seems to be in denial regarding her overall health. Patient and family were explained multiple times that patient's condition is unfortunately terminal. It was also explained to the patient and the family that patient is also a very poor surgical candidate due to her underlying comorbidities. For her other chronic diseases, daily hemodialysis was continued. Appreciate Dr. Wei's efforts and input. She was continued on her supplemental oxygen as she required. Social work was extensively insult with the continue talks with family and patient for further goals of care. It was eventually decided that patient would like to go back on hospice. Another [facility] was consulted, they spoke to patient and agreed to accept patient. Patient will be going home on hospice with continued daily dialysis. Vital Signs/Physical Exam: Temp Pulse Resp BP Pulse Ox 97.7 F 106 H 18 125/91 H 99 08/14/18 12:00 08/14/18 12:00 08/14/18 12:00 08/14/18 12:00 08/14/18 12:00 General: Cachectic, Mild distress HEENT: Atraumatic, PERRLA, EOMI Neck: Supple, JVD not distended Respiratory: Dull, Other Cardiovascular: Regular rate/rhythm, Normal S1 S2 Gastrointestinal: Normal bowel sounds, No tenderness Musculoskeletal: Swelling, Erythema, Other (Discoloration) Laboratory Data at Discharge: WBC 7.0 K/uL (4.3-10.9) 08/12/18 04:55 Hgb 12.9 g/dL (12.0-15.0) 08/12/18 04:55 Hct 39.4 % (36.0-45.0) 08/12/18 04:55 Plt Count 94 K/uL (152-406) L D 08/12/18 04:55 Sodium 124 mmol/L (136-145) L 08/12/18 04:55 Potassium 4.1 mmol/L (3.5-5.1) 08/12/18 04:55 BUN 14 mg/dL (7-18) 08/12/18 04:55 Creatinine 1.55 mg/dL (0.55-1.3) H 08/12/18 04:55 Glucose 153 mg/dL (74-106) H 08/12/18 04:55 Phosphorus 2.5 mg/dL (2.5-4.9) 08/08/18 00:07 Magnesium 2.0 mg/dL (1.8-2.4) 08/08/18 00:07 Home Medications: ALPRAZolam [Xanax] 0.125 mg PO BID PRN 08/08/18 Bisacodyl 10 mg RC DAILYPRN PRN 08/08/18 Carvedilol 3.125 mg PO BEDTIME 08/08/18 Hydromorphone HCl [Dilaudid] 1 mg PO Q3HP PRN 08/08/18 Isosorbide Dinitrate 20 mg PO BID 08/08/18 Nystatin 5 ml PO QID 08/08/18 Pantoprazole [Protonix Tab] 40 mg PO DAILY 08/08/18 Prednisone [Deltasone] 20 mg PO BID 08/08/18 Promethazine HCl 25 mg PO Q4HP PRN 08/08/18 Sennosides [Senokot] 8.6 mg PO BIDP PRN 08/08/18 Diet: Regular Activity: Ad zhang Followup: Maximiliano Raza MD [ACTIVE - CAN ADMIT] -
[2018-08-14 16:53] VITALS: BP 144/98
[2018-08-14 17:34] VITALS: TEMP 97.1
[2018-08-14 18:08] VITALS: O2SAT 99
[2018-08-14] MEDS ORDERED: HEPARIN 500 UNIT/5 ML SYR IV SCH (19:00)
== END 2018-08-14 19:24 | disposition hospice, home (50) | DRG 291 ==
LOC: ER 23:19 → ERHOLD 08-08 02:53 → 2ND 08-08 05:13 → OBSVTOIN 08-09 13:24
PROVIDERS: ADMIT Internal Medicine; ATTEND Family Medicine
PROC: 5A1D70Z Performance of Urinary Filtration, Intermittent, Less than 6 Hours Per Day (ICD-10-PCS; principal; 2018-08-08)
PROC: 5A1D70Z Performance of Urinary Filtration, Intermittent, Less than 6 Hours Per Day (ICD-10-PCS; 2018-08-09)
PROC: 5A1D70Z Performance of Urinary Filtration, Intermittent, Less than 6 Hours Per Day (ICD-10-PCS; 2018-08-10)
PROC: 5A1D70Z Performance of Urinary Filtration, Intermittent, Less than 6 Hours Per Day (ICD-10-PCS; 2018-08-12)
PROC: 5A1D70Z Performance of Urinary Filtration, Intermittent, Less than 6 Hours Per Day (ICD-10-PCS; 2018-08-13)
PROC: 5A1D70Z Performance of Urinary Filtration, Intermittent, Less than 6 Hours Per Day (ICD-10-PCS; 2018-08-14)
DX: I13.2 Hypertensive heart and chronic kidney disease with heart failure and with stage 5 chronic kidney disease, or end stage renal disease (principal); I50.23 Acute on chronic systolic (congestive) heart failure; N18.6 End stage renal disease; J44.1 Chronic obstructive pulmonary disease with (acute) exacerbation; I73.01 Raynaud's syndrome with gangrene; E87.1 Hypo-osmolality and hyponatremia; I82.711 Chronic embolism and thrombosis of superficial veins of right upper extremity; R06.03 Acute respiratory distress; Z99.2 Dependence on renal dialysis; F43.23 Adjustment disorder with mixed anxiety and depressed mood; N25.0 Renal osteodystrophy; Z17.0 Estrogen receptor positive status [ER+]; C50.912 Malignant neoplasm of unspecified site of left female breast
CPT/HCPCS: 36415; 71045; 80048; 82805; 82962; 83735; 84100; 85025; 87040; 90935; 93931; 93971; 94640; 94760; 94762; 96374; 96375; 97110; 97116; 97163; 97530; 99285; G0378; J1642; J1644; J1650; J2310; J2405; J2550; J3010; J7512